=== PATIENT | female | born 1960 | race Two or more races ===

== ENCOUNTER 2016-07-13 12:36 | Inpatient (IN) | payer OTHER ==
[2016-07-13 12:49] VITALS: BMI 36.6
[2016-07-13] MEDS ORDERED: SODIUM CHLORIDE 1,000 ML IV STA (13:39)
[2016-07-13] MEDS ORDERED: ACETAMINOPHEN 325 MG TABLET (FP) PO ONE (13:40)
--- NOTE | 2016-07-13 13:46 | PDOC ---
History of Present Illness - General History Source: Patient Exam Limitations: No Limitations - History of Present Illness Initial Comments: 07/13/16 13:49 The patient is a 55-year-old woman with a past medical history of hypertension , hypercholesterolemia, coronary artery disease status post 1 stent placed, congestive heart failure, asthma, chronic obstructive pulmonary disease, insulin dependent diabetes mellitus, hepatitis C, bipolar disorder, seizure disorder, suicide attempt, depression who presents to the emergency department via EMS for further evaluation of shortness of breath. Upon ED arrival, patient was noted to have an oxygen saturation of 93% on room air, tachycardic at 144 and febrile at 102.3. As per patient, she states that she has endorsed an intermittent productive cough with a yellow sputum for the past few days. She states that her cough had worsened as she started to develop increasingly shortness of breath, generalized body aches and a fever. She doesn't know her baseline oxygen and is currently arranging to have O2 Liters send to her home. No sick contacts. No recent travel Allergies: No Known Drug Allergies Past Surgical History: Stent placement x1. Appendectomy. Lower back surgery. Social History: Current everyday cigarette smoker. Primary Care Physician: Dr. Rc Trevino <Chastity Heaton - Last Filed: 07/13/16 16:56> <Kaleb Spencer - Last Filed: 07/13/16 18:07> <Maddy Craig - Last Filed: 07/13/16 21:09> - General Chief Complaint: Shortness of Breath Stated Complaint: CHEST DISCOMFORT Time Seen by Provider: 07/13/16 13:31 Past History <Chastity Heaton - Last Filed: 07/13/16 16:56> - Past Medical History Anemia: No Asthma: Yes Cancer: No Cardiac Disorders: Yes (STENT X 1) CVA: No COPD: Yes CHF: Yes Dementia: No Diabetes: Yes (IDDM) GI Disorders: No Disorders: No HTN: Yes Hypercholesterolemia: Yes Kidney Stones: Yes Liver Disease: Yes (cirrhosis, hep C) Psychiatric Problems: Yes (bipolar) Suicide Attempt (Hx): Yes (pill overdose at age 23) Seizures: Yes (last episode 03/2013) Thyroid Disease: Yes - Surgical History Abdominal Surgery: No Appendectomy: Yes (age 11) Cardiac Surgery: Yes (STENT X 1) Cholecystectomy: No Lung Surgery: No Neurologic Surgery: No Orthopedic Surgery: Yes (lower back 02/2013) - Immunization History Td Vaccination: Yes - Psycho/Social/Smoking Cessation Hx Anxiety: Yes Suicidal Ideation: No Smoking Status: Yes Smoking History: Current every day smoker Have you smoked in the past 12 months: Yes Number of Cigarettes Smoked Daily: 20 Information on smoking cessation initiated: No 'Breaking Loose' booklet given: 08/16/15 Hx Alcohol Use: No Drug/Substance Use Hx: No Substance Use Type: Opiates Hx Substance Use Treatment: No <Kaleb Spencer - Last Filed: 07/13/16 18:07> <Maddy Craig - Last Filed: 07/13/16 21:09> - Past Medical History Allergies/Adverse Reactions: Allergies Allergy/AdvReac Type Severity Reaction Status Date / Time No Known Allergies Allergy Verified 07/13/16 12:50 Home Medications: Ambulatory Orders Albuterol Sulfate Inhaler - [Ventolin HFA Inhaler -] 2 inh PO Q4H PRN 11/06/14 Amlodipine Besylate [Norvasc -] 10 mg PO DAILY 11/06/14 Aspirin [[place] Aspirin] 81 mg PO DAILY 11/06/14 Gabapentin 300 mg PO TID 11/06/14 Hydroxyzine HCl 50 mg PO DAILY 11/06/14 Lisinopril/Hydrochlorothiazide [Lisinopril-Hctz 20-12.5 mg Tab] 1 each PO DAILY 11/06/14 Nicotine Polacrilex [Nicotine Gum] 4 mg BC Q2H PRN 11/06/14 Salmeterol/Fluticasone [Advair 100Mcg/50Mcg -] 1 inh PO BID 11/06/14 Sennosides [Senokot] 8.6 mg PO DAILY PRN 11/13/14 Diltiazem HCl [Diltiazem 24Hr Cd] 120 mg PO DAILY 12/21/14 Duloxetine HCl 60 mg PO DAILY 12/21/14 Famotidine [Pepcid -] 40 mg PO DAILY 12/21/14 Insulin Glargine,Hum.rec.anlog [Lantus (10mL VIAL) -] 70 units SQ AM 12/21/14 Insulin Lispro [Humalog] 0 unit SQ ASDIR PRN 12/21/14 Lactulose 30 gm PO PRN PRN 12/21/14 Levetiracetam [Keppra] 500 mg PO BID 12/21/14 Montelukast Na [Singulair -] 10 mg PO DAILY 12/21/14 Olmesartan Medoxomil [Benicar -] 20 mg PO DAILY 12/21/14 Tiotropium [place] [Spiriva] 18 mcg IH ASDIR 12/21/14 Zolpidem Tartrate [Ambien] 10 mg PO DAILY 12/21/14 Alprazolam [Xanax] 1 mg PO TID 07/13/16 Tramadol HCl 100 mg PO TID 07/13/16 Review of Systems - Review of Systems Able to Perform ROS?: Yes Comments:: 07/13/16 13:49 CONSTITUTIONAL: Reported: Fever. Chills. Generalized Body Aches. No reported: Diaphoresis, Loss of Appetite HEENT: No reported: Rhinorrhea, Nasal Congestion, Throat Pain, Throat Swelling, Difficulty Swallowing, Mouth Swelling, Ear Pain, Eye Pain, Visual Changes CARDIOVASCULAR: No reported: Chest Pain, Syncope, Palpitations, Irregular Heart Rate, Lightheadedness, Peripheral Edema RESPIRATORY: Reported: Cough, Shortness of Breath. Wheezing. No Reported: SOB with Exertion, Orthopnea,, Stridor, Hemoptysis GASTROINTESTINAL: No reported: Abdominal pain, Abdominal Distension, Nausea, Vomiting, Diarrhea, Constipation, Melena, Hematochezia GENITOURINARY: No reported: Dysuria, Frequency, Urgency, Hesitancy, Flank Pain, Genital Pain MUSCULOSKELETAL: No reported: Myalgia, Arthralgia, Joint Swelling, Back pain, Neck Pain SKIN: No reported: Rash, Itching, Pallor HEMEATOLOGIC/IMMUNOLOGIC: No reported: Easy Bleeding, Easy Bruising, Lymphadenopathy, Frequent infections ENDOCRINE: No reported: Unexplained Weight Gain, Unexplained Weight Loss, Heat Intolerance , Cold Intolerance NEUROLOGIC: No reported: Headache, Focal Weakness, Paresthesias, Vertigo, Lightheadedness, Unsteady Gait, Seizure, Mental Status Changes, Incontinence PSYCHIATRIC: Reported: History of depression and suicide attempt. <Chastity Heaton - Last Filed: 07/13/16 16:56> *Physical Exam - Vital Signs Last Vital Signs Temp Pulse Resp BP Pulse Ox 102.3 F H 144 H 18 136/92 93 L 07/13/16 12:46 07/13/16 12:46 07/13/16 12:46 07/13/16 12:46 07/13/16 12:46 - Physical Exam Comments: 07/13/16 13:49 GENERAL: The patient is awake, alert, and fully oriented, Nontoxic - in no acute distress. HEAD: Normocephalic, atraumatic. EYES: extraocular movements intact, sclera anicteric, conjunctiva clear. ENT: Normal voice, Dry mucous membranes. NECK: Normal range of motion, supple LUNGS: Wheezing with diffuse crackles at bases left > right. HEART: Tachycardic, Regular rate and rhythm, without murmur, rub or gallop. ABDOMEN: Soft, nontender, normoactive bowel sounds. No guarding, no rebound.No CVA tenderness EXTREMITIES: Normal range of motion, no edema. No clubbing or cyanosis. No cords , erythema, or tenderness. NEUROLOGICAL: No facial assymetry, Normal speech, PSYCH: Normal mood, normal affect. SKIN: Hot to the touch. <Chastity Heaton - Last Filed: 07/13/16 16:56> - Vital Signs Last Vital Signs Temp Pulse Resp BP Pulse Ox 102.3 F H 144 H 18 136/92 93 L 07/13/16 12:46 07/13/16 12:46 07/13/16 12:46 07/13/16 12:46 07/13/16 12:46 <Kaleb Spencer - Last Filed: 07/13/16 18:07> - Vital Signs Last Vital Signs Temp Pulse Resp BP Pulse Ox 99.0 F 103 H 20 113/81 97 07/13/16 18:00 07/13/16 18:00 07/13/16 18:00 07/13/16 18:00 07/13/16 18:00 <Maddy Craig - Last Filed: 07/13/16 21:09> Heart Score/ECG Review - ECG Impressions Comment:: 07/13/16 17:19 Twelve-lead EKG was performed and reviewed by me. There is normal sinus rhythm with a rate of [address] changes suggestive of acute ischemia qtc nterval of 556 <Kaleb Spencer - Last Filed: 07/13/16 18:07> ED Treatment Course - LABORATORY CBC & Chemistry Diagram: 07/13/16 14:40 07/13/16 15:15 - RADIOLOGY Radiograph Interpretation: 07/13/16 14:30 EXAM: RAD/CHEST X-RAY PORTABLE IMPRESSION: Since the prior study of 08/17/2015 at 0146 hours, again noted is the elevated right hemidiaphragm, scoliosis, prominent mediastinum but clear lung penn. The angles are sharp and the soft tissues are intact. There are degenerative spine and shoulder changes. There is calcification the left shoulder. <Chastity Heaton - Last Filed: 07/13/16 16:56> - LABORATORY CBC & Chemistry Diagram: 07/13/16 14:40 07/13/16 15:15 - RADIOLOGY Radiology Studies Ordered: Category Date Time Status CHEST X-RAY PORTABLE* [RAD] Stat Radiology 07/13/16 13:39 Ordered <Kaleb Spencer - Last Filed: 07/13/16 18:07> - LABORATORY CBC & Chemistry Diagram: 07/13/16 14:40 07/13/16 15:15 - ADDITIONAL ORDERS Additional order review: Laboratory Results 07/13/16 07/13/16 07/13/16 17:30 15:30 15:15 INR PTT (Actin FS) VBG pH POC VBG pCO2 POC VBG pO2 Mixed VBG HCO3 Sodium 133 L Potassium 4.9 Chloride 93 L Carbon Dioxide 28 Anion Gap 12 BUN 7 D Creatinine 0.8 D Creat Clearance w eGFR > 60 Random Glucose 427 H* Lactic Acid 2.298 H* Calcium 8.5 Total Bilirubin 0.4 AST 39 H ALT 61 D Alkaline Phosphatase 132 H Creatine Kinase 151 D CK-MB (CK-2) < 1.000 Troponin I < 0.02 Total Protein 8.1 Albumin 3.0 L Urine Color Colorless Urine Appearance Clear Urine pH 8.0 D Ur Specific [place] 1.029 Urine Protein 1+ H Urine Glucose (UA) 3+ H Urine Ketones Negative Urine Blood 1+ H Urine Nitrite Negative Urine Bilirubin Negative Urine Urobilinogen Negative Ur Leukocyte Esterase Negative Urine RBC 3 Urine WBC 10 Ur Epithelial Cells Rare Urine Yeast Few 07/13/16 07/13/16 07/13/16 14:40 14:40 14:40 INR 1.03 PTT (Actin FS) 29.7 VBG pH POC VBG pCO2 POC VBG pO2 Mixed VBG HCO3 Sodium Cancelled Potassium Cancelled Chloride Cancelled Carbon Dioxide Cancelled Anion Gap Cancelled BUN Cancelled Creatinine Cancelled Creat Clearance w eGFR Cancelled Random Glucose Cancelled Lactic Acid 3.374 H* Calcium Cancelled Total Bilirubin Cancelled AST Cancelled ALT Cancelled Alkaline Phosphatase Cancelled Creatine Kinase Cancelled CK-MB (CK-2) Troponin I Cancelled Total Protein Cancelled Albumin Cancelled Urine Color Urine Appearance Urine pH Ur Specific [place] Urine Protein Urine Glucose (UA) Urine Ketones Urine Blood Urine Nitrite Urine Bilirubin Urine Urobilinogen Ur Leukocyte Esterase Urine RBC Urine WBC Ur Epithelial Cells Urine Yeast 07/13/16 14:36 INR PTT (Actin FS) VBG pH 7.40 POC VBG pCO2 50.3 POC VBG pO2 50.2 H Mixed VBG HCO3 30.7 H Sodium Potassium Chloride Carbon Dioxide Anion Gap BUN Creatinine Creat Clearance w eGFR Random Glucose Lactic Acid Calcium Total Bilirubin AST ALT Alkaline Phosphatase Creatine Kinase CK-MB (CK-2) Troponin I Total Protein Albumin Urine Color Urine Appearance Urine pH Ur Specific [place] Urine Protein Urine Glucose (UA) Urine Ketones Urine Blood Urine Nitrite Urine Bilirubin Urine Urobilinogen Ur Leukocyte Esterase Urine RBC Urine WBC Ur Epithelial Cells Urine Yeast 07/13/16 13:50 Influenza Types A,B Antigen ([facility]) - Final Nasopharyngeal Swab - Final 07/13/16 14:40 RBC 4.91 MCV 88.4 MCHC 33.6 RDW 14.1 MPV 10.3 D Neutrophils % 80.0 D Lymphocytes % 10.0 D Monocytes % 8.0 - Medications Given in the ED: ED Medications Discontinued Medications Generic Name Dose Route Start Last Admin Trade Name Freq PRN Reason Stop Dose Admin Acetaminophen 975 mg 07/13/16 13:40 07/13/16 14:15 Tylenol - PO 07/13/16 13:41 975 mg ONCE ONE Administration Cefepime HCl 2 gm 07/13/16 15:06 07/13/16 15:15 Maxipime (Restricted To Id) - IVPB 07/13/16 15:07 2 gm ONCE ONE Administration Protocol Sodium Chloride 1,000 mls @ 1,000 mls/hr 07/13/16 13:39 07/13/16 14:41 Normal Saline - IV 07/13/16 14:38 1,000 mls/hr ASDIR STA Administration Levofloxacin 150 mls @ 100 mls/hr 07/13/16 15:06 07/13/16 16:25 Levaquin 750 Mg Premixed Ivpb - IVPB 07/13/16 16:35 100 mls/hr ONCE ONE Administration Vancomycin HCl 1,000 mg/ 250 mls @ 250 mls/hr 07/13/16 15:06 07/13/16 15:42 Dextrose IVPB 07/13/16 16:05 250 mls/hr ONCE ONE Administration Protocol Sodium Chloride 1,000 mls @ 1,000 mls/hr 07/13/16 15:32 07/13/16 15:42 Normal Saline - IV 07/13/16 16:31 1,000 mls/hr .Q1H ONE Administration Insulin Detemir 9 units 07/13/16 16:13 07/13/16 16:20 Levemir Vial SQ 07/13/16 16:14 Not Given ONCE ONE Insulin Human Regular 9 units 07/13/16 16:20 07/13/16 16:24 Novolin R Vial *For Ivpush Or Iv Drip Only* SQ 07/13/16 16:21 9 units NOW ONE Administration Insulin Human Regular 6 units 07/13/16 18:16 07/13/16 18:21 Novolin R Vial *For Ivpush Or Iv Drip Only* SQ 07/13/16 18:17 6 units NOW ONE Administration <Maddy Craig - Last Filed: 07/13/16 21:09> Medical Decision Making - Critical Care Time Total Critical Care Time (minutes): 40 Critical Care Statement: The care of this patient involved high complexity decision making to prevent further life threatening deterioration of the patient 's condition and/or to evalute & treat vital organ system(s) failure or risk of failure. - Medical Decision Making 07/13/16 16:[address] Trevino. 07/13/16 16:[address] Trevino <Chastity Heaton - Last Filed: 07/13/16 16:56> - Medical Decision Making 07/13/16 13:56 55y F hx of 07/13/16 16:29 cxr is clear w/o pna ua does not suggest uti pts labs noted for leukocytosis of 26 lactic acid elevated to 3.3 --> will hydrate and recheck influenza negative when prompted of abd pain, pt states she does have some abdominla pain, but states she also has pain everywhere. suspect respiratory cause - but no focal findings on cxr. pt was given broad spectrum abx for sepsis anticipate admission awaiting call back from dr. trevino 07/13/16 18:[address] trevino agreed wit hadmission pts CT abdomen shows some nodular densitis in the lung kidney is slithglyt ademadousn -?pyelo possible, but pts primary sypmtoms are respiratory - broad spectrum abx will cover uti as well erpeat lactic acid pending wcase dw dr. trevino if lactic acid persistently elevated will admit to tele, if normalizing will put in med surg Case discussed in detail with admitting physician including history, physical exam and ancillary studies. Admitting physician has assumed care for the patient, will follow all pending diagnostics and will complete the evaluation and treatment. A portion of this note was documented by scribe services under my direction. I have reviewed the details of the note, within reason, and agree with the documentation with the following case summary and management plan written by me CRITICAL CARE DOCUMENTATION: I spent ~35 minutes of Critical Care time, excluding separately billable procedures, involving high complexity decision making to assess, manipulate and support vital system function(s) to treat single or multiple vital organ system failure and/or to prevent further life threatening deterioration of the patient' s condition. <Kaleb Spencer - Last Filed: 07/13/16 18:07> *DC/Admit/Observation/Transfer - Attestations Scribe Attestion: 07/13/16 13:49 Documentation prepared by Chastity Heaton, acting as medical technologist prn for Kaleb Spencer MD. <Chastity Heaton - Last Filed: 07/13/16 16:56> - Discharge Dispostion Admit: Yes <Kaleb Spencer - Last Filed: 07/13/16 18:07> - Discharge Dispostion Admit: Yes <Maddy Craig - Last Filed: 07/13/16 21:09> Diagnosis at time of Disposition: Severe sepsis, Hyperglycemia COPD (chronic obstructive pulmonary disease) Qualifiers: COPD type: chronic bronchitis Chronic bronchitis type: unspecified Qualified Code(s): J42 - Unspecified chronic bronchitis - Discharge Dispostion Condition at time of disposition: Guarded - Referrals
[2016-07-13] MEDS ORDERED: ACETAMINOPHEN 325 MG TABLET (FP) ONE (13:53)
[2016-07-13 14:55] LABS: MCH 29.7 pg (25.7-33.7); MCHC 33.6 g/dl (32.0-36.0); MEAN CELL VOLUME 88.4 fl (80-96); MEAN PLT VOLUME 10.3 fl (7.5-11.1); PLATELET COUNT 364 K/MM3 (134-434); RDW 14.1 % (11.6-15.6); WHITE BLOOD COUNT 26.4 K/mm3 (4.0-10.0)
[2016-07-13 14:57] LABS: VENOUS PH 7.4 (7.32-7.42)
[2016-07-13 14:59] LABS: VENOUS BLOOD GAS HCO3 30.7 meq/L (19-25)
[2016-07-13] MEDS ORDERED: VANCOMYCIN 1,000 MG in DEXTROSE 5%-WATER - 250 ML IVPB ONE (15:06)
[2016-07-13] MEDS ORDERED: LEVOFLOXACIN 750 MG IVPB 150 ML IVPB ONE ×2 (15:06→15:21)
[2016-07-13] MEDS ORDERED: CEFEPIME HCL 2 GM VIAL (RESTRICTED TO ID) IVPB ONE (15:06)
[2016-07-13 15:18] LABS: INR 1.03 (0.82-1.09); PROTHROMBIN TIME (PATIENT) 11.3 SEC (9.98-11.88)
[2016-07-13 15:21] LABS: ACTIVATED PTT 29.7 SECONDS (26.9-34.4)
[2016-07-13] MEDS ORDERED: CEFEPIME 100 ML IVPB ONE (15:21)
[2016-07-13] MEDS ORDERED: VANCOMYCIN 1 GRAM (PRE-DOCKED) 250 ML IVPB ONE (15:21)
[2016-07-13] MEDS ORDERED: SODIUM CHLORIDE 1,000 ML IV ONE ×2 (15:32→18:02)
[2016-07-13 15:35] LABS: URINE APPEARANCE CLEAR; URINE BILIRUBIN NEGATIVE (NEGATIVE); URINE COLOR COLORLESS; URINE GLUCOSE (UA) 3+ (NEGATIVE); URINE KETONE NEGATIVE (NEGATIVE); URINE LEUK ESTERASE NEGATIVE (NEGATIVE); URINE NITRITE NEGATIVE (NEGATIVE); URINE UROBILINOGEN NEGATIVE E.U./dl (0.2-1.0)
[2016-07-13 15:41] LABS: URINE BLOOD 1+ (NEGATIVE); URINE PROTEIN 1+ (NEGATIVE)
[2016-07-13 15:54] LABS: ANION GAP 12 (8-16); BILIRUBIN,TOTAL 0.4 mg/dL (0.2-1.0); CALCIUM 8.5 mg/dL (8.5-10.1); CO2 28 mmol/L (21-32); CREATININE 0.8 mg/dL (0.55-1.02); SGOT/AST 39 U/L (15-37); SGPT/ALT 61 U/L (12-78); TOT PROT 8.1 g/dl (6.4-8.2)
[2016-07-13 15:56] LABS: GLUCOSE,RANDOM 427 mg/dL (74-106)
[2016-07-13 15:56] LABS: URINE RBC 3 /hpf (0-3); URINE WBC 10 /hpf (3-5); YEAST FEW
[2016-07-13 15:59] LABS: ALK PHOS 132 U/L (45-117); TROPONIN I < 0.02 ng/ml (0.00-0.05)
[2016-07-13] MEDS ORDERED: INSULIN DETEMIR 100 UNITS/ML MDV SQ ONE (16:13)
[2016-07-13] MEDS ORDERED: INSULIN REGULAR HUMAN 100 UNITS/ML *VIAL SQ ONE ×2 (16:20→18:16)
[2016-07-13] MEDS ORDERED: INSULIN REGULAR HUMAN 100 UNITS/ML *VIAL ONE ×3 (16:22→22:22)
[2016-07-13 18:26] LABS: PLATELET ESTIMATE ADEQUATE (NORMAL)
[2016-07-13] MEDS ORDERED: ALBUTEROL SO4 2.5/IPRATROPIUM 0.5 INH SOL 3 ML VIAL.NEB. NEB ONE (20:31)
[2016-07-13] MEDS ORDERED: ALBUTEROL SO4 2.5/IPRATROPIUM 0.5 INH SOL 3 ML VIAL.NEB. NEB PRN (20:53)
[2016-07-13] MEDS ORDERED: ONDANSETRON 4 MG/2 ML VIAL IVPB PRN (20:53)
[2016-07-13] MEDS ORDERED: DEXTROSE 5%-NORMAL SALINE 1,000 ML IV SCH (21:00)
[2016-07-13] MEDS: POTASSIUM CHLORIDE 10 MEQ in SODIUM CHLORIDE 0.45% 1,000 ML IVPB SCH (22:00)
[2016-07-13] MEDS: INSULIN SLIDING SCALE (NOVOLOG) 1 VIAL SQ SCH (22:34)
[2016-07-14] MEDS: POTASSIUM CHLORIDE 10 MEQ in SODIUM CHLORIDE 0.45% 1,000 ML IVPB SCH ×2 (06:27→16:00)
[2016-07-14] MEDS ORDERED: morphine CARPU-JECT 2 MG/1 ML DISP.SYRIN ONE ×2 (06:29→17:00)
[2016-07-14] MEDS ORDERED: ONDANSETRON 4 MG/2 ML VIAL ONE (06:29)
[2016-07-14] MEDS: morphine CARPU-JECT 2 MG/1 ML DISP.SYRIN IVPUSH PRN ×3 (06:34→20:52)
[2016-07-14 06:37] LABS: MCH 29.9 pg (25.7-33.7); MCHC 33.3 g/dl (32.0-36.0); MEAN CELL VOLUME 89.8 fl (80-96); MEAN PLT VOLUME 8.7 fl (7.5-11.1); PLATELET COUNT 284 K/MM3 (134-434); RDW 13.5 % (11.6-15.6)
[2016-07-14 06:51] LABS: ALBUMIN 2.5 g/dl (3.4-5.0); ALK PHOS 81 U/L (45-117); ANION GAP 8 (8-16); BILIRUBIN,TOTAL 0.8 mg/dL (0.2-1.0); CALCIUM 7.9 mg/dL (8.5-10.1); CO2 30 mmol/L (21-32); CREATININE 0.5 mg/dL (0.55-1.02); GLUCOSE,RANDOM 229 mg/dL (74-106); SGOT/AST 28 U/L (15-37); SGPT/ALT 46 U/L (12-78); TOT PROT 6.9 g/dl (6.4-8.2)
[2016-07-14] MEDS: INSULIN SLIDING SCALE (NOVOLOG) 1 VIAL SQ SCH ×4 (08:39→22:47)
[2016-07-14] MEDS ORDERED: INSULIN REGULAR HUMAN 100 UNITS/ML *VIAL ONE ×3 (08:39→13:47)
--- NOTE | 2016-07-14 09:00 | CON.GU ---
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 Cardio/Vascular: Yes: CAD, HTN Pulmonary: Yes: COPD Hepatobiliary: Yes: Hepatitis C (from a blood transfusion) Psych: Yes: Bipolar Endocrine: Yes: Diabetes Mellitus - Past Surgical History Past Surgical History: Yes: Hysterectomy, Colonoscopy - Alcohol/Substance Use Hx Alcohol Use: No History of Substance Use: reports: Cocaine - Smoking History Smoking history: Current every day smoker Have you smoked in the past 12 months: Yes Aproximately how many cigarettes per day: 20 - Social History Occupation: disabled Home Medications - Allergies Allergies/Adverse Reactions: Allergies Allergy/AdvReac Type Severity Reaction Status Date / Time No Known Allergies Allergy Verified 07/13/16 12:50 - Home Medications Home Medications: Ambulatory Orders Albuterol Sulfate Inhaler - [Ventolin HFA Inhaler -] 2 inh PO Q4H PRN 11/06/14 Amlodipine Besylate [Norvasc -] 10 mg PO DAILY 11/06/14 Aspirin [[place] Aspirin] 81 mg PO DAILY 11/06/14 Gabapentin 300 mg PO TID 11/06/14 Hydroxyzine HCl 50 mg PO DAILY 11/06/14 Lisinopril/Hydrochlorothiazide [Lisinopril-Hctz 20-12.5 mg Tab] 1 each PO DAILY 11/06/14 Nicotine Polacrilex [Nicotine Gum] 4 mg BC Q2H PRN 11/06/14 Salmeterol/Fluticasone [Advair 100Mcg/50Mcg -] 1 inh PO BID 11/06/14 Sennosides [Senokot] 8.6 mg PO DAILY PRN 11/13/14 Diltiazem HCl [Diltiazem 24Hr Cd] 120 mg PO DAILY 12/21/14 Duloxetine HCl 60 mg PO DAILY 12/21/14 Famotidine [Pepcid -] 40 mg PO DAILY 12/21/14 Insulin Glargine,Hum.rec.anlog [Lantus (10mL VIAL) -] 70 units SQ AM 12/21/14 Insulin Lispro [Humalog] 0 unit SQ ASDIR PRN 12/21/14 Lactulose 30 gm PO PRN PRN 12/21/14 Levetiracetam [Keppra] 500 mg PO BID 12/21/14 Montelukast Na [Singulair -] 10 mg PO DAILY 12/21/14 Olmesartan Medoxomil [Benicar -] 20 mg PO DAILY 12/21/14 Tiotropium [place] [Spiriva] 18 mcg IH ASDIR 12/21/14 Zolpidem Tartrate [Ambien] 10 mg PO DAILY 12/21/14 Alprazolam [Xanax] 1 mg PO TID 07/13/16 Tramadol HCl 100 mg PO TID 07/13/16 Family Disease History - Family Disease History Family Disease History: Diabetes: Mother, Heart Disease: Father, Brother, Sister , Respiratory: Father, Other: Father, Brother, Sister Physical Exam- Vital Signs: Vital Signs Temperature 98.1 F 07/14/16 07:30 Pulse Rate 107 H 07/14/16 07:30 Respiratory Rate 16 07/14/16 07:30 Blood Pressure 109/89 07/14/16 07:30 O2 Sat by Pulse Oximetry (%) 100 07/14/16 07:30 Constitutional: Yes: Well Nourished, Calm Eyes: Yes: WNL, Conjunctiva Clear, EOM Intact HENT: Yes: WNL, Atraumatic, Normocephalic Neck: Yes: WNL, Supple, Trachea Midline Cardiovascular: Yes: Regular Rate and Rhythm Gastrointestinal: Yes: WNL, Normal Bowel Sounds (bilateral mild CVAT), Soft Renal/: Yes: CVA Tenderness - Left, CVA Tenderness - Right Kidneys: Yes: Flank Pain Left, FLank Pain Right External Genitalia: Yes: WNL Labs: CBC, BMP 07/14/16 06:15 07/14/16 06:15 Imaging - Results Cat Scan: Report Reviewed (small right renal stone; no hydro; no masses) Assessment/Plan imp pneumonia renal stone plan continue antibiotics will follow-up patient as outpatient as the fever is not of urologic source
--- NOTE | 2016-07-14 10:14 | PN ---
Progress Note (short form) - Note Progress Note: ID consult dictated imp/reccd 55 year old female with PMH nephrolithiasis, DM, HTN admitted with one week history of fever and cough with yellow sputum +myalgia, midepigastric pain from vomiting no hemoptysis, no diarrhea no vomiting +nausea +chills fever to 102 in ED with elevated WBC and lactic acid infiltrate seen on ct scan abd/pelvis s/p lap choly in April at [facility] she went to ED at [facility] last week but did not stay to be seen +smoker 1 PPD +COPD +DM given vancomycin/levaquin/cefepime in ed now afebrile Right lower lobe pneumonia cultures blood and sputum legionella/pneumococcal antigens copd exacerbation rocephin/doxycycline
[2016-07-14] MEDS ORDERED: CEFTRIAXONE 100 ML ONE (11:42)
[2016-07-14] MEDS ORDERED: CEFTRIAXONE 100 ML IVPB ONE (11:44)
[2016-07-14] MEDS: cefTRIAXone 2 GM/100 ML BAG (PRE-DOCKED) IVPB SCH (12:38)
[2016-07-14] MEDS: DOXYCYCLINE INJECTION 100 MG in DEXTROSE 5%-WATER - 100 ML IVPB SCH ×2 (14:00→22:06)
--- NOTE | 2016-07-14 16:08 | CONSULT ---
Consult Consult Specialty:: Nephrology Reason for Consultation:: lactic acidosis - History of Present Illness Chief Complaint: shortness of breath History of Present Illness: Pt is a 55 year old female with pmhx of HTN, hyperlipidemia, CAD, CHF, COPD, DM , Hep C, epilepsy, Bipolar and nephrolithiasis who presents to the ER with shortness of breath. She was found to be tachycardic and to have a fever. Pt was admitted to the hospital for treatment of sepsis. She complains of a productive cough. She says she had dysuria a few days ago and did see blood in the urine at that time. She complains of chills. I was called to evaluate her for lactic acidosis and for fluid management. She says she has lung disease but does not have home oxygen yet. 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 Cardio/Vascular: Yes: CAD, HTN Pulmonary: Yes: COPD Hepatobiliary: Yes: Hepatitis C (from a blood transfusion) Psych: Yes: Bipolar Endocrine: Yes: Diabetes Mellitus - Past Surgical History Past Surgical History: Yes: Hysterectomy, Colonoscopy - Alcohol/Substance Use Hx Alcohol Use: No History of Substance Use: reports: Cocaine - Smoking History Smoking history: Current every day smoker Have you smoked in the past 12 months: Yes Aproximately how many cigarettes per day: 20 - Social History Occupation: disabled Home Medications - Allergies Allergies/Adverse Reactions: Allergies Allergy/AdvReac Type Severity Reaction Status Date / Time No Known Allergies Allergy Verified 07/13/16 12:50 - Home Medications Home Medications: Ambulatory Orders Albuterol Sulfate Inhaler - [Ventolin HFA Inhaler -] 2 inh PO Q4H PRN 11/06/14 Amlodipine Besylate [Norvasc -] 10 mg PO DAILY 11/06/14 Aspirin [[place] Aspirin] 81 mg PO DAILY 11/06/14 Gabapentin 300 mg PO TID 11/06/14 Hydroxyzine HCl 50 mg PO DAILY 11/06/14 Lisinopril/Hydrochlorothiazide [Lisinopril-Hctz 20-12.5 mg Tab] 1 each PO DAILY 11/06/14 Nicotine Polacrilex [Nicotine Gum] 4 mg BC Q2H PRN 11/06/14 Salmeterol/Fluticasone [Advair 100Mcg/50Mcg -] 1 inh PO BID 11/06/14 Sennosides [Senokot] 8.6 mg PO DAILY PRN 11/13/14 Diltiazem HCl [Diltiazem 24Hr Cd] 120 mg PO DAILY 12/21/14 Duloxetine HCl 60 mg PO DAILY 12/21/14 Famotidine [Pepcid -] 40 mg PO DAILY 12/21/14 Insulin Glargine,Hum.rec.anlog [Lantus (10mL VIAL) -] 70 units SQ AM 12/21/14 Insulin Lispro [Humalog] 0 unit SQ ASDIR PRN 12/21/14 Lactulose 30 gm PO PRN PRN 12/21/14 Levetiracetam [Keppra] 500 mg PO BID 12/21/14 Montelukast Na [Singulair -] 10 mg PO DAILY 12/21/14 Olmesartan Medoxomil [Benicar -] 20 mg PO DAILY 12/21/14 Tiotropium [place] [Spiriva] 18 mcg IH ASDIR 12/21/14 Zolpidem Tartrate [Ambien] 10 mg PO DAILY 12/21/14 Alprazolam [Xanax] 1 mg PO TID 07/13/16 Tramadol HCl 100 mg PO TID 07/13/16 Family Disease History - Family Disease History Family Disease History: Diabetes: Mother, Heart Disease: Father, Brother, Sister , Respiratory: Father, Other: Father, Brother, Sister Review of Systems - Review of Systems Constitutional: reports: Chills, Fever, Malaise Eyes: reports: No Symptoms HENT: reports: No Symptoms Neck: reports: No Symptoms Cardiovascular: reports: Shortness of Breath Respiratory: reports: Cough, SOB, SOB on Exertion Gastrointestinal: reports: Abdominal Pain Genitourinary: reports: Dysuria, Hematuria Musculoskeletal: reports: No Symptoms Integumentary: reports: No Symptoms Neurological: reports: No Symptoms Endocrine: reports: No Symptoms Hematology/Lymphatic: reports: No Symptoms Psychiatric: reports: No Symptoms Physical Exam Vital Signs: Vital Signs Temperature 98.1 F 07/14/16 07:30 Pulse Rate 100 H 07/14/16 11:15 Respiratory Rate 18 07/14/16 11:15 Blood Pressure 135/79 07/14/16 11:15 O2 Sat by Pulse Oximetry (%) 94 L 07/14/16 11:15 Constitutional: Yes: Calm Eyes: Yes: Conjunctiva Clear HENT: Yes: Atraumatic Neck: Yes: Supple Cardiovascular: Yes: S1 Respiratory: Yes: CTA Bilaterally Gastrointestinal: Yes: Normal Bowel Sounds, Soft Renal/: Yes: WNL Musculoskeletal: Yes: WNL Edema: No Neurological: Yes: Oriented Psychiatric: Yes: Oriented Labs: CBC, BMP 07/14/16 06:15 07/14/16 06:15 Laboratory Tests 07/13/16 07/13/16 07/13/16 14:40 14:40 15:15 WBC 26.4 H D Hgb 14.6 D Sodium 133 L Potassium 4.9 Chloride 93 L Carbon Dioxide 28 Anion Gap 12 BUN 7 D Creatinine 0.8 D Random Glucose Lactic Acid 3.374 H* 07/13/16 07/14/16 07/14/16 17:30 06:15 06:15 WBC 15.0 H D Hgb 12.9 D Sodium 138 Potassium 3.9 D Chloride 100 Carbon Dioxide 30 Anion Gap 8 BUN 4 L D Creatinine 0.5 L D Random Glucose 229 H D Lactic Acid 2.298 H* 07/14/16 06:15 WBC Hgb Sodium Potassium Chloride Carbon Dioxide Anion Gap BUN Creatinine Random Glucose Lactic Acid 1.130 Imaging - Results Chest X-ray: Report Reviewed Cat Scan: Report Reviewed Problem List - Problems (1) CAD (coronary artery disease) Code(s): I25.10 - ATHSCL HEART DISEASE OF [place] CORONARY ARTERY W/O ANG PCTRS (2) COPD (chronic obstructive pulmonary disease) Code(s): J44.9 - CHRONIC OBSTRUCTIVE PULMONARY DISEASE, UNSPECIFIED Qualifiers : COPD type: chronic bronchitis Chronic bronchitis type: unspecified Qualified Code(s): J42 - Unspecified chronic bronchitis (3) Pyelonephritis Code(s): N12 - TUBULO-INTERSTITIAL NEPHRITIS, NOT SPCF ACUTE OR CHRONIC (4) UTI (urinary tract infection) Code(s): N39.0 - URINARY TRACT INFECTION, SITE NOT SPECIFIED (5) Hepatitis C Code(s): B19.20 - UNSPECIFIED VIRAL HEPATITIS C WITHOUT HEPATIC COMA (6) Sepsis Code(s): A41.9 - SEPSIS, UNSPECIFIED ORGANISM (7) Lactic acid acidosis Code(s): E87.2 - ACIDOSIS Assessment/Plan Current Medications Generic Name Dose Route Start Last Admin Trade Name Freq PRN Reason Stop Dose Admin Albuterol/Ipratropium 1 amp 07/13/16 20:53 Duoneb - NEB Q6H PRN SHORTNESS OF BREATH Ceftriaxone Sodium 2 gm 07/14/16 11:00 07/14/16 12:38 Rocephin 2gm Ivpb (Pre-Docked) IVPB 2 gm DAILY ILYA Administration Protocol Dextrose/Sodium Chloride 1,000 mls @ 83 mls/hr 07/13/16 21:00 07/13/16 21:21 D5-Ns - IV 83 mls/hr ASDIR ILYA Administration Potassium Chloride 10 meq/ 1,005 mls @ 125 mls/hr 07/13/16 21:00 07/14/16 06:27 Sodium Chloride IVPB 125 mls/hr Q8H ILYA Administration Doxycycline Hyclate 100 mg/ 100 mls @ 100 mls/hr 07/14/16 11:30 07/14/16 14:00 Dextrose IVPB 100 mls/hr BID ILYA Administration Insulin Aspart 1 vial 07/13/16 22:00 07/14/16 14:00 Novolog Vial Sliding Scale - SQ 10 units ACHS ILYA Administration Protocol Morphine Sulfate 2 mg 07/13/16 20:53 07/14/16 06:34 Morphine Injection - IVPUSH 2 mg Q4H PRN Administration PAIN Ondansetron HCl 4 mg 07/13/16 20:53 07/14/16 06:34 Zofran Injection IVPB 4 mg Q6H PRN Administration NAUSEA Impression 1. sepsis 2. PNA 3. UTI 4. possible pyelo 5. COPD 6. Hep C 7. CAD 8. CHF Plan - cont with fluids - lactic acid improving - urology input appreciated - cont abx - follow cultures - repeat labs in am - check renal and bladder ultrasound - hold HCTZ for now - monitor BP closely Dr Post
--- NOTE | 2016-07-14 17:38 | EKG ---
Test Reason : Blood Pressure : / mmHG Vent. Rate : 139 BPM Atrial Rate : 139 BPM P-R Int : 080 ms QRS Dur : 076 ms QT Int : 366 ms P-R-T Axes : 098 061 075 degrees QTc Int : 556 ms SINUS TACHYCARDIA WITH SHORT [place] OTHERWISE NORMAL ECG WHEN COMPARED WITH ECG OF 16-AUG-2015 20:27, [place] INTERVAL HAS DECREASED VENT. RATE HAS INCREASED BY 46 BPM Confirmed by CHRISTOPHER STERN MD ([id number]) on 07/14/2016 5:38:41 PM Referred By: Confirmed By:CHRISTOPHER STERN MD
--- NOTE | 2016-07-14 19:18 | HP ---
Admitting History and Physical - Primary Care Physician PCP: Rc Pineda - Admission Chief Complaint: WEAKNESS/FEVER/COUGH/FLANK PAIN History of Present Illness: Pt is a 55 year old female with pmhx of HTN, hyperlipidemia, CAD, CHF, COPD, DM , Hep C, epilepsy, Bipolar and nephrolithiasis who presents to the ER with shortness of breath. She was found to be tachycardic and to have a fever. Pt was admitted to the hospital for treatment of sepsis. She complains of a productive cough. She says she had dysuria a few days ago and did see blood in the urine at that time. She complains of chills. I was called to evaluate her for lactic acidosis and for fluid management. She says she has lung disease but does not have home oxygen yet. 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 Cardiovascular: Yes: CAD, HTN Pulmonary: Yes: COPD Hepatobiliary: Yes: Hepatitis C (from a blood transfusion) Psych: Yes: Bipolar Endocrine: Yes: Diabetes Mellitus - Past Surgical History Past Surgical History: Yes: Hysterectomy, Colonoscopy - Smoking History Smoking history: Current every day smoker Have you smoked in the past 12 months: Yes Aproximately how many cigarettes per day: 20 - Alcohol/Substance Use Hx Alcohol Use: No History of Substance Use: reports: Cocaine - Social History Occupation: disabled Home Medications - Allergies Allergies/Adverse Reactions: Allergies Allergy/AdvReac Type Severity Reaction Status Date / Time No Known Allergies Allergy Verified 07/13/16 12:50 - Home Medications Home Medications: Ambulatory Orders Albuterol Sulfate Inhaler - [Ventolin HFA Inhaler -] 2 inh PO Q4H PRN 11/06/14 Amlodipine Besylate [Norvasc -] 10 mg PO DAILY 11/06/14 Aspirin [[place] Aspirin] 81 mg PO DAILY 11/06/14 Gabapentin 300 mg PO TID 11/06/14 Hydroxyzine HCl 50 mg PO DAILY 11/06/14 Lisinopril/Hydrochlorothiazide [Lisinopril-Hctz 20-12.5 mg Tab] 1 each PO DAILY 11/06/14 Nicotine Polacrilex [Nicotine Gum] 4 mg BC Q2H PRN 11/06/14 Salmeterol/Fluticasone [Advair 100Mcg/50Mcg -] 1 inh PO BID 11/06/14 Sennosides [Senokot] 8.6 mg PO DAILY PRN 11/13/14 Diltiazem HCl [Diltiazem 24Hr Cd] 120 mg PO DAILY 12/21/14 Duloxetine HCl 60 mg PO DAILY 12/21/14 Famotidine [Pepcid -] 40 mg PO DAILY 12/21/14 Insulin Glargine,Hum.rec.anlog [Lantus (10mL VIAL) -] 70 units SQ AM 12/21/14 Insulin Lispro [Humalog] 0 unit SQ ASDIR PRN 12/21/14 Lactulose 30 gm PO PRN PRN 12/21/14 Levetiracetam [Keppra] 500 mg PO BID 12/21/14 Montelukast Na [Singulair -] 10 mg PO DAILY 12/21/14 Olmesartan Medoxomil [Benicar -] 20 mg PO DAILY 12/21/14 Tiotropium [place] [Spiriva] 18 mcg IH ASDIR 12/21/14 Zolpidem Tartrate [Ambien] 10 mg PO DAILY 12/21/14 Alprazolam [Xanax] 1 mg PO TID 07/13/16 Tramadol HCl 100 mg PO TID 07/13/16 Family Disease History - Family Disease History Family Disease History: Diabetes: Mother, Heart Disease: Father, Brother, Sister , Respiratory: Father, Other: Father, Brother, Sister Review of Systems - Review of Systems Constitutional: reports: Weakness Eyes: reports: No Symptoms HENT: reports: No Symptoms Neck: reports: No Symptoms Cardiovascular: reports: Shortness of Breath Respiratory: reports: Cough, SOB Gastrointestinal: reports: Abdominal Pain Genitourinary: reports: No Symptoms Musculoskeletal: reports: Extremity Pain, Joint Pain, Muscle Weakness Integumentary: reports: No Symptoms Neurological: reports: Pre-Existing Deficit, Weakness Endocrine: reports: No Symptoms Hematology/Lymphatic: reports: No Symptoms Psychiatric: reports: Anxiety, Other Physical Examination Vital Signs: Vital Signs Temperature 98.3 F 07/14/16 16:56 Pulse Rate 96 H 07/14/16 16:56 Respiratory Rate 18 07/14/16 16:56 Blood Pressure 134/80 07/14/16 16:56 O2 Sat by Pulse Oximetry (%) 96 07/14/16 17:00 Constitutional: Yes: Moderate Distress Eyes: Yes: WNL HENT: Yes: WNL Neck: Yes: WNL Cardiovascular: Yes: WNL Respiratory: Yes: Cough, On Nasal O2, Poor Air Entry, SOB Gastrointestinal: Yes: Tenderness Renal/: Yes: WNL Musculoskeletal: Yes: Back Pain, Muscle Weakness Extremities: Yes: WNL Edema: Yes Edema: LLE: 1+, RLE: 1+ Peripheral Pulses WNL: Yes Integumentary: Yes: WNL Wound/Incision: Yes: Clean/Dry Neurological: Yes: Pre-Existing Deficit, Weakness ...Motor Strength: LLE, RLE Psychiatric: Yes: Other Labs: CBC, BMP 07/14/16 06:15 07/14/16 06:15 Problem List - Problems (1) CAD (coronary artery disease) Code(s): I25.10 - ATHSCL HEART DISEASE OF [place] CORONARY ARTERY W/O ANG PCTRS (2) COPD (chronic obstructive pulmonary disease) Code(s): J44.9 - CHRONIC OBSTRUCTIVE PULMONARY DISEASE, UNSPECIFIED Qualifiers : COPD type: chronic bronchitis Chronic bronchitis type: unspecified Qualified Code(s): J42 - Unspecified chronic bronchitis (3) Chest pain at rest Code(s): R07.9 - CHEST PAIN, UNSPECIFIED (4) Dysarthria Code(s): R47.1 - DYSARTHRIA AND ANARTHRIA (5) Elevated liver enzymes Code(s): R74.8 - ABNORMAL LEVELS OF OTHER SERUM ENZYMES (6) Hyperglycemia Code(s): R73.9 - HYPERGLYCEMIA, UNSPECIFIED (7) Lactic acid acidosis Code(s): E87.2 - ACIDOSIS (8) Sepsis Code(s): A41.9 - SEPSIS, UNSPECIFIED ORGANISM (9) Severe sepsis Code(s): A41.9 - SEPSIS, UNSPECIFIED ORGANISM R65.20 - SEVERE SEPSIS WITHOUT SEPTIC SHOCK (10) Tobacco abuse Code(s): Z72.0 - TOBACCO USE (11) COPD exacerbation Code(s): J44.1 - CHRONIC OBSTRUCTIVE PULMONARY DISEASE W (ACUTE) EXACERBATION (12) Hypertension associated with diabetes Code(s): E11.59 - TYPE 2 DIABETES MELLITUS WITH OTH CIRCULATORY COMPLICATIONS I10 - ESSENTIAL (PRIMARY) HYPERTENSION (13) Pyelonephritis Code(s): N12 - TUBULO-INTERSTITIAL NEPHRITIS, NOT SPCF ACUTE OR CHRONIC (14) UTI (urinary tract infection) Code(s): N39.0 - URINARY TRACT INFECTION, SITE NOT SPECIFIED (15) Asthma Code(s): J45.909 - UNSPECIFIED ASTHMA, UNCOMPLICATED (16) Benzodiazepine dependence Code(s): F13.20 - SEDATIVE, HYPNOTIC OR ANXIOLYTIC DEPENDENCE, UNCOMPLICATED (17) Bipolar II disorder Code(s): F31.81 - BIPOLAR II DISORDER (18) Hepatitis C Code(s): B19.20 - UNSPECIFIED VIRAL HEPATITIS C WITHOUT HEPATIC COMA (19) Hypertension Code(s): I10 - ESSENTIAL (PRIMARY) HYPERTENSION (20) Nicotine dependence Code(s): F17.200 - NICOTINE DEPENDENCE, UNSPECIFIED, UNCOMPLICATED (21) Opioid dependence Code(s): F11.20 - OPIOID DEPENDENCE, UNCOMPLICATED (22) Seizure disorder Code(s): G40.909 - EPILEPSY, UNSP, NOT INTRACTABLE, WITHOUT STATUS EPILEPTICUS Assessment/Plan IV ABX BLOOD AND URINE CULTURES ID AND NEPHROLOGY CONSULT IVF DM WITH SSI NICOTOINE PATCH/SMOKING CESSATION SUBS ABUSE IN PAST COUNCELED PAIN CONTROL
[2016-07-14] MEDS ORDERED: SODIUM CHLORIDE 1,000 ML IV SCH (19:30)
--- NOTE | 2016-07-14 21:07 | CONS ---
DATE OF CONSULTATION: DATE OF DICTATION: 07/14/2016 REQUESTED BY: Rc Pineda MD HISTORY OF PRESENT ILLNESS: This is a 55-year-old woman with an extensive past medical history including hypertension, hypercholesterolemia, and coronary artery disease, asthma, COPD, diabetes. She is an active cigarette user. She presented to the emergency room with a 1-week history of cough with yellow sputum production. She has had some mid-epigastric discomfort from her vomiting. She reports fever at home yesterday to 102. She has diffuse myalgias. There is no hemoptysis and she overall feels lousy. Her , she says, is starting to get a cold at home. There are no sick contacts. She was feeling so bad last week that she went to the emergency room at [facility] but did not stay to be seen. She did not see her doctor. She has nausea. She has had no diarrhea, dysuria, or vomiting. PAST MEDICAL HISTORY: Notable for history of asthma, coronary artery disease. She has a stent in place. COPD, CHF, diabetes, hypertension, hypercholesterolemia, nephrolithiasis. She is status post laser lithotripsy, liver cirrhosis with hepatitis C, bipolar disorder. She had a suicide attempt at age 23 and she has a history of seizures and thyroid disease. PAST SURGICAL HISTORY: Notable for appendectomy. She has had a hysterosalpingogram, tonsillectomy. She has had lower back surgery and most recently, 3 months ago, she had her gallbladder out; she had a laparoscopic cholecystectomy at [facility]. FAMILY HISTORY: Noncontributory. SOCIAL HISTORY: She is . She smokes one pack per day. To me, she denies any illicit drug use. ALLERGIES: She has no known drug allergies. MEDICATIONS: At home include albuterol inhaler, Norvasc, aspirin, gabapentin, hydroxyzine, lisinopril/hydrochlorothiazide, nicotine gum, Advair, Senokot, diltiazem, duloxetine, famotidine, insulin, lactulose, Keppra, Singulair, Benicar, Spiriva, Ambien, Xanax and tramadol. Per the patient, she is apparently being evaluated for home oxygen. REVIEW OF SYSTEMS: Notable for myalgia, chills, fever, cough with yellow sputum and nausea. There is no dysuria. There is no diarrhea. She has had no vomiting. She has no chest pain. PHYSICAL EXAMINATION: General: She is awake and alert. Vital Signs: T-max was 102.3. She has had no further fever. Temperature 98.1, pulse 107, blood pressure 109/89, respiratory rate 16. She is saturating 100% on 2 L and she has a moist cough. HEENT: She is normocephalic. Eyes are anicteric. She has no thrush. Neck: Supple. Lungs: Bilateral rhonchi and wheezes. Heart: Regular rate and rhythm. Abdomen: Soft. She had midepigastric pain to palpation. Otherwise, her abdominal examination is soft. There is no rebound or guarding. Extremities: Without edema. LABORATORY DATA: Notable for a white count of 26.4 yesterday, today 15; hemoglobin 12.9; platelets 284; INR 1. BUN and creatinine are 4/0.5. LFTs are normal. Urinalysis has 10 white cells. IMAGING: Chest x-ray was read as normal. CAT scan of the abdomen and pelvis was done, as she had fever, leukocytosis. She also had a lactic acid level on admission of 3.3 and this morning is 1.1. She had a CAT scan of her abdomen and pelvis done that was unremarkable. Showed no hydronephrosis, a small nonobstructing stone, but she was noted incidentally on that to have a right middle lobe and right lower lobe infiltrate. IN SUMMARY: This is a 55-year-old woman, active smoker with diabetes, chronic obstructive pulmonary disease who has a right lower lobe pneumonia. Cultures of the blood have been sent. We sent sputum for legionella and pneumococcal antigens. She was given vancomycin, Levaquin, and cefepime in the emergency room and is now afebrile. The official EKG has not been read, but appears she has prolonged QT on her ED EKG. Given this, I would treat her with Rocephin and doxycycline at this time. Further recommendations to follow based on her clinical course. CHERI GUZMAN M.D. [id number]
[2016-07-14] MEDS: ZOLPIDEM TARTRATE 5 MG TABLET PO PRN (23:05)
[2016-07-15] MEDS: INSULIN SLIDING SCALE (NOVOLOG) 1 VIAL SQ SCH ×4 (06:08→21:09)
[2016-07-15] MEDS ORDERED: INSULIN (NOVOLOG) ASPART 100 UNITS/ML 10ML VIAL ONE ×2 (06:10→19:17)
[2016-07-15] MEDS: morphine CARPU-JECT 2 MG/1 ML DISP.SYRIN IVPUSH PRN ×3 (06:36→19:36)
[2016-07-15 06:48] LABS: MCH 29.4 pg (25.7-33.7); MCHC 32.9 g/dl (32.0-36.0); MEAN CELL VOLUME 89.4 fl (80-96); MEAN PLT VOLUME 8.9 fl (7.5-11.1); PLATELET COUNT 236 K/MM3 (134-434); RDW 13.7 % (11.6-15.6); WHITE BLOOD COUNT 11.3 K/mm3 (4.0-10.0)
[2016-07-15] MEDS: cefTRIAXone 2 GM/100 ML BAG (PRE-DOCKED) IVPB SCH (10:05)
--- NOTE | 2016-07-15 11:25 | CON.PULM ---
Consult Consult Specialty:: PULMONARY Referred by:: FRANCOISE Reason for Consultation:: SOB/COUGH/FEVER - History of Present Illness Chief Complaint: SOB/COUGH/FEVER/WHEEZES History of Present Illness: The patient is a 55-year-old woman with a past medical history of hypertension , hypercholesterolemia, coronary artery disease status post 1 stent placed, congestive heart failure, asthma, chronic obstructive pulmonary disease, insulin dependent diabetes mellitus, hepatitis C, bipolar disorder, seizure disorder, suicide attempt, depression who presents to the emergency department via EMS for further evaluation of shortness of breath. Upon ED arrival, patient was noted to have an oxygen saturation of 93% on room air, tachycardic at 144 and febrile at 102.3. As per patient, she states that she has endorsed an intermittent productive cough with a yellow sputum for the past few days. She states that her cough had worsened as she started to develop increasingly shortness of breath, generalized body aches and a fever. She doesn't know her baseline oxygen and is currently arranging to have O2 Liters send to her home. No sick contacts. No recent travel. She is an active smoker. 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 No: Alzheimer's Cardio/Vascular: Yes: CAD, HTN. No: AFIB Pulmonary: Yes: COPD Gastrointestinal: No: Ascites Hepatobiliary: Yes: Hepatitis C (from a blood transfusion) Reproductive: Yes: Postmenopausal ...: No Heme/Onc: No: Anemia Psych: Yes: Bipolar Endocrine: Yes: Diabetes Mellitus - Past Surgical History Past Surgical History: Yes: Hysterectomy, Colonoscopy - Alcohol/Substance Use Hx Alcohol Use: No History of Substance Use: reports: Cocaine - Smoking History Smoking history: Current every day smoker Have you smoked in the past 12 months: Yes Aproximately how many cigarettes per day: 20 - Social History Occupation: disabled Place of : [facility] History of Recent Travel: No Home Medications - Allergies Allergies/Adverse Reactions: Allergies Allergy/AdvReac Type Severity Reaction Status Date / Time No Known Allergies Allergy Verified 07/13/16 12:50 - Home Medications Home Medications: Ambulatory Orders Albuterol Sulfate Inhaler - [Ventolin HFA Inhaler -] 2 inh PO Q4H PRN 11/06/14 Aspirin [[place] Aspirin] 81 mg PO DAILY 11/06/14 Gabapentin 300 mg PO TID 11/06/14 Hydroxyzine HCl 50 mg PO DAILY 11/06/14 Lisinopril/Hydrochlorothiazide [Lisinopril-Hctz 20-12.5 mg Tab] 1 each PO DAILY 11/06/14 Salmeterol/Fluticasone [Advair 100Mcg/50Mcg -] 1 inh PO BID 11/06/14 Sennosides [Senokot] 1 tab PO DAILY PRN 11/13/14 Diltiazem HCl [Diltiazem 24Hr Cd] 120 mg PO DAILY 12/21/14 Duloxetine HCl 60 mg PO DAILY 12/21/14 Famotidine [Pepcid -] 40 mg PO DAILY 12/21/14 Insulin Glargine,Hum.rec.anlog [Lantus (10mL VIAL) -] 70 units SQ AM 12/21/14 Insulin Lispro [Humalog] 0 unit SQ ASDIR PRN 12/21/14 Levetiracetam [Keppra] 500 mg PO BID 12/21/14 Montelukast Na [Singulair -] 10 mg PO DAILY PRN 12/21/14 Olmesartan Medoxomil [Benicar -] 20 mg PO DAILY 12/21/14 Tiotropium [place] [Spiriva] 18 mcg IH DAILY 12/21/14 Zolpidem Tartrate [Ambien] 10 mg PO DAILY 12/21/14 Alprazolam [Xanax] 1 mg PO TID 07/13/16 Tramadol HCl 100 mg PO TID 07/13/16 Family Disease History - Family Disease History Family Disease History: Diabetes: Mother, Heart Disease: Father, Brother, Sister , Respiratory: Father, Other: Father, Brother, Sister Review of Systems - Review of Systems Cardiovascular: reports: Chest Pain (with cough) Respiratory: reports: Cough, Exercise Intolerance, SOB, SOB on Exertion, Wheezing. denies: Hemoptysis Gastrointestinal: reports: No Symptoms Genitourinary: reports: No Symptoms Breasts: reports: No Symptoms Reported Physical Exam Vital Sings: Vital Signs Temperature 99 F 07/15/16 06:03 Pulse Rate 102 H 07/15/16 06:03 Respiratory Rate 20 07/15/16 06:03 Blood Pressure 131/74 07/15/16 06:03 O2 Sat by Pulse Oximetry (%) 96 07/14/16 21:00 Constitutional: Yes: Anxious Eyes: Yes: EOM Intact HENT: Yes: Normocephalic Neck: Yes: Trachea Midline Cardiovascular: Yes: Tachycardia, S1, S2 Respiratory: Yes: Rhonchi, Wheezes (diffuse bilateral) Gastrointestinal: Yes: Normal Bowel Sounds, Abdomen, Obese Extremities: Yes: WNL Edema: LLE: Trace, RLE: Trace Neurological: Yes: Alert ...Motor Strength: WNL Labs: CBC, BMP 07/15/16 05:35 07/14/16 06:15 rest reviewed Imaging - Results Chest X-ray: Image Reviewed Cat Scan: Image Reviewed EKG: Image Reviewed Problem List - Problems (1) CAD (coronary artery disease) Code(s): I25.10 - ATHSCL HEART DISEASE OF [place] CORONARY ARTERY W/O ANG PCTRS (2) COPD (chronic obstructive pulmonary disease) Code(s): J44.9 - CHRONIC OBSTRUCTIVE PULMONARY DISEASE, UNSPECIFIED Qualifiers : COPD type: chronic bronchitis Chronic bronchitis type: unspecified Qualified Code(s): J42 - Unspecified chronic bronchitis (3) Hyperglycemia Code(s): R73.9 - HYPERGLYCEMIA, UNSPECIFIED (4) Hypertension Code(s): I10 - ESSENTIAL (PRIMARY) HYPERTENSION (5) Hypothyroidism Code(s): E03.9 - HYPOTHYROIDISM, UNSPECIFIED (6) Nicotine dependence Code(s): F17.200 - NICOTINE DEPENDENCE, UNSPECIFIED, UNCOMPLICATED (7) Seizure disorder Code(s): G40.909 - EPILEPSY, UNSP, NOT INTRACTABLE, WITHOUT STATUS EPILEPTICUS (8) Vitamin D deficiency Code(s): E55.9 - VITAMIN D DEFICIENCY, UNSPECIFIED (9) Pneumonia Code(s): J18.9 - PNEUMONIA, UNSPECIFIED ORGANISM Assessment/Plan PNEUMONIA/COPD/BRONCHOSPASTIC COMPONENT MUTIPLE MEDICAL PROBLEMS OUTLINED WILL SCHEDULE DUONEB Q6 SOLUMEDROL 40MG Q6/ANTIBIOTICS O2 TO KEEP SAT GREATER THAN 90% GLYCEMIC CONTROL/ANTIPYRETICS OOB TO CHAIR/CAT SCAN CHEST WILL FOLLOW THANK YOU Carey HACKETT MD
[2016-07-15] MEDS: DOXYCYCLINE INJECTION 100 MG in DEXTROSE 5%-WATER - 100 ML IVPB SCH ×2 (11:37→21:09)
--- NOTE | 2016-07-15 11:37 | PN ---
Progress Note (short form) - Note Progress Note: still feels lousy still coughing and wheezing Vital Signs Period Temp Pulse Resp BP Sys/Sultana Pulse Ox Last 24 Hr 98.3 F-99 F 96-107 18-20 131-145/74-85 96-96 cor-rrr lungs bilateral wheeze and rhonchi abd soft,nt ext no edema CBC, BMP 07/15/16 05:35 07/14/16 06:15 Microbiology 07/15/16 02:50 Urine For Antigen Detection Legionella Antigen - Final 07/15/16 02:50 Urine For Antigen Detection Streptococcus pneumoniae Antigen (M - Final 07/13/16 14:40 Blood - Peripheral Venous Blood Culture - Preliminary NO GROWTH OBTAINED AFTER 24 HOURS, INCUBATION TO CONTINUE FOR 4 DAYS. 07/13/16 14:40 Blood - Peripheral Venous Blood Culture - Preliminary NO GROWTH OBTAINED AFTER 24 HOURS, INCUBATION TO CONTINUE FOR 4 DAYS. 07/13/16 13:39 Urine - Urine Clean Catch Urine Culture - Final Contaminated: Please Repeat 07/13/16 13:50 Nasopharyngeal Swab Influenza Types A,B Antigen (KAUR) - Final 07/13/16 13:50 Nasopharyngeal Swab - Final sputum culture pending a/p pneumonia COPD active smoker continue ceftriaxone/doxycycline day #[address] scan of chest steroids and nebs added by pulmonary f/u cultures Problem List - Problems (1) Pneumonia Code(s): J18.9 - PNEUMONIA, UNSPECIFIED ORGANISM (2) COPD exacerbation Code(s): J44.1 - CHRONIC OBSTRUCTIVE PULMONARY DISEASE W (ACUTE) EXACERBATION (3) Tobacco abuse Code(s): Z72.0 - TOBACCO USE
[2016-07-15] MEDS: NICOTINE 21 MG/24 HOURS TOPICAL PATCH TD SCH (12:09)
[2016-07-15] MEDS: methylPREDNISolone NA SUCC 40 MG/1 ML VIAL IVPB SCH ×3 (12:09→21:09)
--- NOTE | 2016-07-15 12:10 | PN ---
Progress Note, Physician History of Present Illness: Pt seen and examined at bedside. She is awake and alert. She complains of shortness of breath today. - Current Medication List Current Medications: Active Medications Albuterol/Ipratropium (Duoneb -) 1 amp NEB QIDR [facility] Ceftriaxone Sodium (Rocephin 2gm Ivpb (Pre-Docked)) 2 gm IVPB DAILY ILYA PRN Reason: Protocol Last Admin: 07/15/16 10:05 Dose: 2 gm Doxycycline Hyclate 100 mg/ (Dextrose) 100 mls @ 100 mls/hr IVPB BID [facility] Last Admin: 07/15/16 11:37 Dose: 100 mls/hr Sodium Chloride (Normal Saline -) 1,000 mls @ 83 mls/hr IV ASDIR [facility] Last Admin: 07/14/16 20:54 Dose: 83 mls/hr Insulin Aspart (Novolog Vial Sliding Scale -) 1 vial SQ ACHS ILYA PRN Reason: Protocol Last Admin: 07/15/16 06:08 Dose: 2 units Methylprednisolone Sodium Succinate (Solu-Medrol -) 40 mg IVPB Q6H-IV ILYA Morphine Sulfate (Morphine Injection -) 2 mg IVPUSH Q4H PRN PRN Reason: PAIN Last Admin: 07/15/16 06:36 Dose: 2 mg Nicotine (Nicoderm Patch -) 21 mg TD DAILY [facility] Ondansetron HCl (Zofran Injection) 4 mg IVPB Q6H PRN PRN Reason: NAUSEA Last Admin: 07/14/16 06:34 Dose: 4 mg Zolpidem Tartrate (Ambien -) 10 mg PO HS PRN Last Admin: 07/14/16 23:05 Dose: 10 mg - Objective Vital Signs: Vital Signs Temperature 99 F 07/15/16 06:03 Pulse Rate 102 H 07/15/16 06:03 Respiratory Rate 20 07/15/16 06:03 Blood Pressure 131/74 07/15/16 06:03 O2 Sat by Pulse Oximetry (%) 96 07/14/16 21:00 Constitutional: Yes: Calm Eyes: Yes: Conjunctiva Clear HENT: Yes: Atraumatic Neck: Yes: Supple Cardiovascular: Yes: S1, S2 Respiratory: Yes: On Nasal O2, Tachypnea Gastrointestinal: Yes: Soft, Abdomen, Obese Genitourinary: Yes: WNL Musculoskeletal: Yes: WNL Edema: Yes Edema: LLE: Trace, RLE: Trace Neurological: Yes: Oriented Psychiatric: Yes: Oriented Labs: CBC, BMP 07/15/16 05:35 07/14/16 06:15 INR, PTT INR 1.03 (0.82-1.09) 07/13/16 14:40 Problem List - Problems (1) CAD (coronary artery disease) Code(s): I25.10 - ATHSCL HEART DISEASE OF [place] CORONARY ARTERY W/O ANG PCTRS (2) COPD (chronic obstructive pulmonary disease) Code(s): J44.9 - CHRONIC OBSTRUCTIVE PULMONARY DISEASE, UNSPECIFIED Qualifiers : COPD type: chronic bronchitis Chronic bronchitis type: unspecified Qualified Code(s): J42 - Unspecified chronic bronchitis (3) Pyelonephritis Code(s): N12 - TUBULO-INTERSTITIAL NEPHRITIS, NOT SPCF ACUTE OR CHRONIC (4) UTI (urinary tract infection) Code(s): N39.0 - URINARY TRACT INFECTION, SITE NOT SPECIFIED (5) Hepatitis C Code(s): B19.20 - UNSPECIFIED VIRAL HEPATITIS C WITHOUT HEPATIC COMA (6) Sepsis Code(s): A41.9 - SEPSIS, UNSPECIFIED ORGANISM (7) Lactic acid acidosis Code(s): E87.2 - ACIDOSIS Assessment/Plan Current Medications Generic Name Dose Route Start Last Admin Trade Name Freq PRN Reason Stop Dose Admin Albuterol/Ipratropium 1 amp 07/15/16 11:30 Duoneb - NEB QIDR ILYA Ceftriaxone Sodium 2 gm 07/14/16 11:00 07/15/16 10:05 Rocephin 2gm Ivpb (Pre-Docked) IVPB 2 gm DAILY ILYA Administration Protocol Doxycycline Hyclate 100 mg/ 100 mls @ 100 mls/hr 07/14/16 11:30 07/15/16 11:37 Dextrose IVPB 100 mls/hr BID ILYA Administration Sodium Chloride 1,000 mls @ 83 mls/hr 07/14/16 19:30 07/14/16 20:54 Normal Saline - IV 83 mls/hr ASDIR ILYA Administration Insulin Aspart 1 vial 07/13/16 22:00 07/15/16 06:08 Novolog Vial Sliding Scale - SQ 2 units ACHS ILYA Administration Protocol Methylprednisolone Sodium Succinate 40 mg 07/15/16 11:30 Solu-Medrol - IVPB Q6H-IV ILYA Morphine Sulfate 2 mg 07/13/16 20:53 07/15/16 06:36 Morphine Injection - IVPUSH 2 mg Q4H PRN Administration PAIN Nicotine 21 mg 07/15/16 11:30 Nicoderm Patch - TD DAILY ILYA Ondansetron HCl 4 mg 07/13/16 20:53 07/14/16 06:34 Zofran Injection IVPB 4 mg Q6H PRN Administration NAUSEA Zolpidem Tartrate 10 mg 07/14/16 22:54 07/14/16 23:05 Ambien - PO 10 mg HS PRN Administration Impression 1. sepsis 2. PNA 3. UTI 4. possible pyelo 5. COPD 6. Hep C 7. CAD 8. CHF Plan - will stop fluids for now - pulmonary input appreciated - renal ultrasound reviewed, urology follow up - cont abx - follow cultures - monitor BP closely - diuretics on hold - am cxr Dr Post
[2016-07-15] MEDS: ALBUTEROL SO4 2.5/IPRATROPIUM 0.5 INH SOL 3 ML VIAL.NEB. NEB SCH ×2 (13:45→18:24)
--- NOTE | 2016-07-15 20:27 | PN ---
Progress Note, Physician Chief Complaint: awake alert still SOB report of CT scan reviewed - Current Medication List Current Medications: Active Medications Albuterol/Ipratropium (Duoneb -) 1 amp NEB QIDR [facility] Last Admin: 07/15/16 18:24 Dose: 1 amp Ceftriaxone Sodium (Rocephin 2gm Ivpb (Pre-Docked)) 2 gm IVPB DAILY ILYA PRN Reason: Protocol Last Admin: 07/15/16 10:05 Dose: 2 gm Doxycycline Hyclate 100 mg/ (Dextrose) 100 mls @ 100 mls/hr IVPB BID [facility] Last Admin: 07/15/16 11:37 Dose: 100 mls/hr Insulin Aspart (Novolog Vial Sliding Scale -) 1 vial SQ ACHS ILYA PRN Reason: Protocol Last Admin: 07/15/16 17:31 Dose: 10 units Methylprednisolone Sodium Succinate (Solu-Medrol -) 40 mg IVPB Q6H-IV ILYA Last Admin: 07/15/16 15:47 Dose: 40 mg Morphine Sulfate (Morphine Injection -) 2 mg IVPUSH Q4H PRN PRN Reason: PAIN Last Admin: 07/15/16 19:36 Dose: 2 mg Nicotine (Nicoderm Patch -) 21 mg TD DAILY [facility] Last Admin: 07/15/16 12:09 Dose: 21 mg Ondansetron HCl (Zofran Injection) 4 mg IVPB Q6H PRN PRN Reason: NAUSEA Last Admin: 07/14/16 06:34 Dose: 4 mg Zolpidem Tartrate (Ambien -) 10 mg PO HS PRN Last Admin: 07/14/16 23:05 Dose: 10 mg - Objective Vital Signs: Vital Signs Temperature 98.4 F 07/15/16 19:55 Pulse Rate 100 H 07/15/16 19:55 Respiratory Rate 18 07/15/16 19:55 Blood Pressure 159/79 07/15/16 19:55 O2 Sat by Pulse Oximetry (%) 94 L 07/15/16 19:55 Constitutional: Yes: Moderate Distress Eyes: Yes: WNL HENT: Yes: WNL Neck: Yes: WNL Cardiovascular: Yes: WNL Respiratory: Yes: On Nasal O2, SOB, Wheezes Gastrointestinal: Yes: WNL Genitourinary: Yes: WNL Musculoskeletal: Yes: WNL Extremities: Yes: WNL Edema: No Peripheral Pulses WNL: Yes Integumentary: Yes: WNL Wound/Incision: Yes: Clean/Dry Neurological: Yes: WNL ...Motor Strength: WNL Psychiatric: Yes: WNL Labs: CBC, BMP 07/15/16 05:35 07/14/16 06:15 INR, PTT INR 1.03 (0.82-1.09) 07/13/16 14:40 Problem List - Problems (1) CAD (coronary artery disease) Code(s): I25.10 - ATHSCL HEART DISEASE OF [place] CORONARY ARTERY W/O ANG PCTRS (2) COPD (chronic obstructive pulmonary disease) Code(s): J44.9 - CHRONIC OBSTRUCTIVE PULMONARY DISEASE, UNSPECIFIED Qualifiers : COPD type: chronic bronchitis Chronic bronchitis type: unspecified Qualified Code(s): J42 - Unspecified chronic bronchitis (3) Chest pain at rest Code(s): R07.9 - CHEST PAIN, UNSPECIFIED (4) Dysarthria Code(s): R47.1 - DYSARTHRIA AND ANARTHRIA (5) Elevated liver enzymes Code(s): R74.8 - ABNORMAL LEVELS OF OTHER SERUM ENZYMES (6) Hyperglycemia Code(s): R73.9 - HYPERGLYCEMIA, UNSPECIFIED (7) Lactic acid acidosis Code(s): E87.2 - ACIDOSIS (8) Sepsis Code(s): A41.9 - SEPSIS, UNSPECIFIED ORGANISM (9) Severe sepsis Code(s): A41.9 - SEPSIS, UNSPECIFIED ORGANISM R65.20 - SEVERE SEPSIS WITHOUT SEPTIC SHOCK (10) Tobacco abuse Code(s): Z72.0 - TOBACCO USE (11) COPD exacerbation Code(s): J44.1 - CHRONIC OBSTRUCTIVE PULMONARY DISEASE W (ACUTE) EXACERBATION (12) Hypertension associated with diabetes Code(s): E11.59 - TYPE 2 DIABETES MELLITUS WITH OTH CIRCULATORY COMPLICATIONS I10 - ESSENTIAL (PRIMARY) HYPERTENSION (13) Pyelonephritis Code(s): N12 - TUBULO-INTERSTITIAL NEPHRITIS, NOT SPCF ACUTE OR CHRONIC (14) UTI (urinary tract infection) Code(s): N39.0 - URINARY TRACT INFECTION, SITE NOT SPECIFIED (15) Asthma Code(s): J45.909 - UNSPECIFIED ASTHMA, UNCOMPLICATED (16) Benzodiazepine dependence Code(s): F13.20 - SEDATIVE, HYPNOTIC OR ANXIOLYTIC DEPENDENCE, UNCOMPLICATED (17) Bipolar II disorder Code(s): F31.81 - BIPOLAR II DISORDER (18) Hepatitis C Code(s): B19.20 - UNSPECIFIED VIRAL HEPATITIS C WITHOUT HEPATIC COMA (19) Hypertension Code(s): I10 - ESSENTIAL (PRIMARY) HYPERTENSION (20) Nicotine dependence Code(s): F17.200 - NICOTINE DEPENDENCE, UNSPECIFIED, UNCOMPLICATED (21) Opioid dependence Code(s): F11.20 - OPIOID DEPENDENCE, UNCOMPLICATED (22) Seizure disorder Code(s): G40.909 - EPILEPSY, UNSP, NOT INTRACTABLE, WITHOUT STATUS EPILEPTICUS Assessment/Plan IV ABX CT CHEST CHRONIC CHANGES PULM F/U OUTPATIENT PET SCAN SMOKING CESSATION BLOOD AND URINE CULTURES PENDING ID AND NEPHROLOGY CONSULT IVF DM WITH SSI NICOTOINE PATCH/SMOKING CESSATION SUBS ABUSE IN PAST COUNCELED PAIN CONTROL
[2016-07-15] MEDS ORDERED: PT OWN MED DRAWER 7, Y5N ONE (21:03)
[2016-07-15] MEDS: ZOLPIDEM TARTRATE 5 MG TABLET PO PRN (21:10)
[2016-07-15] MEDS ORDERED: ALPRAZolam 0.25 MG TABLET PO ONE (21:30)
[2016-07-16] MEDS: ALBUTEROL SO4 2.5/IPRATROPIUM 0.5 INH SOL 3 ML VIAL.NEB. NEB SCH ×5 (00:20→23:31)
[2016-07-16] MEDS: methylPREDNISolone NA SUCC 40 MG/1 ML VIAL IVPB SCH ×4 (02:37→22:18)
[2016-07-16] MEDS: morphine CARPU-JECT 2 MG/1 ML DISP.SYRIN IVPUSH PRN (05:29)
[2016-07-16] MEDS ORDERED: INSULIN (NOVOLOG) ASPART 100 UNITS/ML 10ML VIAL ONE ×3 (06:06→22:07)
[2016-07-16] MEDS: INSULIN SLIDING SCALE (NOVOLOG) 1 VIAL SQ SCH ×4 (06:07→22:22)
[2016-07-16 07:00] LABS: CALCIUM 9.2 mg/dL (8.5-10.1); CREATININE 0.5 mg/dL (0.55-1.02)
[2016-07-16] MEDS ORDERED: PT OWN MED DRAWER 7, Y5N ONE (08:52)
[2016-07-16] MEDS: NICOTINE 21 MG/24 HOURS TOPICAL PATCH TD SCH (09:08)
[2016-07-16] MEDS: cefTRIAXone 2 GM/100 ML BAG (PRE-DOCKED) IVPB SCH (09:09)
[2016-07-16] MEDS: AZITHROMYCIN 250 MG TABLET (FP) PO SCH (09:13)
[2016-07-16] MEDS: oxyCODONE HCL 5 MG TABLET PO PRN ×2 (09:13→19:58)
[2016-07-16] MEDS: DOXYCYCLINE INJECTION 100 MG in DEXTROSE 5%-WATER - 100 ML IVPB SCH (09:49)
[2016-07-16] MEDS: ALPRAZolam 0.25 MG TABLET PO SCH ×3 (10:37→22:22)
[2016-07-16] MEDS ORDERED: ALPRAZolam 0.25 MG TABLET PO SCH (14:00)
--- NOTE | 2016-07-16 14:05 | PN ---
Progress Note (short form) - Note Progress Note: feels better today cough has dryed up Vital Signs Period Temp Pulse Resp BP Sys/Sultana Pulse Ox Last 24 Hr 97.8 F-100.0 F 85-100 18-20 133-159/79-97 92-94 cor-rrr lungs rhonchi, no wheeze abd soft,nt ext no edema CBC, BMP 07/15/16 05:35 07/16/16 05:35 Microbiology 07/15/16 06:30 Sputum - Expectorated Sputum Culture - Preliminary Yeast Like Organism 07/13/16 14:40 Blood - Peripheral Venous Blood Culture - Preliminary NO GROWTH OBTAINED AFTER 48 HOURS, INCUBATION TO CONTINUE FOR 3 DAYS. 07/13/16 14:40 Blood - Peripheral Venous Blood Culture - Preliminary NO GROWTH OBTAINED AFTER 48 HOURS, INCUBATION TO CONTINUE FOR 3 DAYS. 07/15/16 02:50 Urine For Antigen Detection Legionella Antigen - Final 07/15/16 02:50 Urine For Antigen Detection Streptococcus pneumoniae Antigen (M - Final 07/13/16 13:39 Urine - Urine Clean Catch Urine Culture - Final Contaminated: Please Repeat 07/13/16 13:50 Nasopharyngeal Swab Influenza Types A,B Antigen (KAUR) - Final 07/13/16 13:50 Nasopharyngeal Swab - Final chest ct noted Current Medications Generic Name Dose Route Start Last Admin Trade Name Freq PRN Reason Stop Dose Admin Albuterol/Ipratropium 1 amp 07/15/16 11:30 07/16/16 12:09 Duoneb - NEB 1 amp QIDR ILYA Administration Alprazolam 1 mg 07/16/16 10:30 07/16/16 13:39 Xanax - PO Not Given TID ILYA Azithromycin 500 mg 07/16/16 10:00 07/16/16 09:13 Zithromax - PO 500 mg DAILY ILYA Administration Ceftriaxone Sodium 2 gm 07/14/16 11:00 07/16/16 09:09 Rocephin 2gm Ivpb (Pre-Docked) IVPB 2 gm DAILY ILYA Administration Protocol Docusate Sodium 300 mg 07/16/16 22:00 Colace - PO HS ILYA Insulin Aspart 1 vial 07/13/16 22:00 07/16/16 12:20 Novolog Vial Sliding Scale - SQ 8 units ACHS ILYA Administration Protocol Insulin Detemir 15 units 07/16/16 22:00 Levemir Vial SQ HS ILYA Methylprednisolone Sodium Succinate 40 mg 07/15/16 11:30 07/16/16 09:08 Solu-Medrol - IVPB 40 mg Q6H-IV ILYA Administration Nicotine 21 mg 07/15/16 11:30 07/16/16 09:08 Nicoderm Patch - TD 21 mg DAILY ILYA Administration Ondansetron HCl 4 mg 07/13/16 20:53 07/14/16 06:34 Zofran Injection IVPB 4 mg Q6H PRN Administration NAUSEA Oxycodone HCl 5 mg 07/16/16 07:56 07/16/16 09:13 Roxicodone - PO 5 mg Q6H PRN Administration PAIN Zolpidem Tartrate 10 mg 07/14/16 22:54 07/15/16 21:10 Ambien - PO 10 mg HS PRN Administration a/p pneumonia copd continue rocephin/zithromax doing well Problem List - Problems (1) Pneumonia Code(s): J18.9 - PNEUMONIA, UNSPECIFIED ORGANISM (2) COPD exacerbation Code(s): J44.1 - CHRONIC OBSTRUCTIVE PULMONARY DISEASE W (ACUTE) EXACERBATION (3) Tobacco abuse Code(s): Z72.0 - TOBACCO USE
--- NOTE | 2016-07-16 14:11 | PN ---
Progress Note, Physician History of Present Illness: Pt seen and examined at bedside. She feels better today. She denies dysuria. She does feel anxious. She feels that the oxygen helps her and says she is waiting for her home oxygen to be set up. - Current Medication List Current Medications: Active Medications Albuterol/Ipratropium (Duoneb -) 1 amp NEB QIDR [facility] Last Admin: 07/16/16 12:09 Dose: 1 amp Alprazolam (Xanax -) 1 mg PO TID [facility] Last Admin: 07/16/16 13:39 Dose: Not Given Azithromycin (Zithromax -) 500 mg PO DAILY [facility] Last Admin: 07/16/16 09:13 Dose: 500 mg Ceftriaxone Sodium (Rocephin 2gm Ivpb (Pre-Docked)) 2 gm IVPB DAILY [facility] PRN Reason: Protocol Last Admin: 07/16/16 09:09 Dose: 2 gm Docusate Sodium (Colace -) 300 mg PO HS [facility] Insulin Aspart (Novolog Vial Sliding Scale -) 1 vial SQ ACHS [facility] PRN Reason: Protocol Last Admin: 07/16/16 12:20 Dose: 8 units Insulin Detemir (Levemir Vial) 15 units SQ HS [facility] Methylprednisolone Sodium Succinate (Solu-Medrol -) 40 mg IVPB Q6H-IV [facility] Last Admin: 07/16/16 09:08 Dose: 40 mg Nicotine (Nicoderm Patch -) 21 mg TD DAILY [facility] Last Admin: 07/16/16 09:08 Dose: 21 mg Ondansetron HCl (Zofran Injection) 4 mg IVPB Q6H PRN PRN Reason: NAUSEA Last Admin: 07/14/16 06:34 Dose: 4 mg Oxycodone HCl (Roxicodone -) 5 mg PO Q6H PRN PRN Reason: PAIN Last Admin: 07/16/16 09:13 Dose: 5 mg Zolpidem Tartrate (Ambien -) 10 mg PO HS PRN Last Admin: 07/15/16 21:10 Dose: 10 mg - Objective Vital Signs: Vital Signs Temperature 97.9 F 07/16/16 10:00 Pulse Rate 90 07/16/16 10:00 Respiratory Rate 20 07/16/16 10:00 Blood Pressure 150/97 07/16/16 10:00 O2 Sat by Pulse Oximetry (%) 92 L 07/16/16 09:00 Constitutional: Yes: Calm Eyes: Yes: Conjunctiva Clear HENT: Yes: Atraumatic Neck: Yes: Supple Cardiovascular: Yes: S1, S2 Respiratory: Yes: On Nasal O2, Wheezes Gastrointestinal: Yes: Soft, Abdomen, Obese Genitourinary: Yes: WNL Musculoskeletal: Yes: WNL Edema: LLE: Trace, RLE: Trace Neurological: Yes: Oriented Psychiatric: Yes: Oriented Labs: CBC, BMP 07/15/16 05:35 07/16/16 05:35 INR, PTT INR 1.03 (0.82-1.09) 07/13/16 14:40 Problem List - Problems (1) CAD (coronary artery disease) Code(s): I25.10 - ATHSCL HEART DISEASE OF [place] CORONARY ARTERY W/O ANG PCTRS (2) COPD (chronic obstructive pulmonary disease) Code(s): J44.9 - CHRONIC OBSTRUCTIVE PULMONARY DISEASE, UNSPECIFIED Qualifiers : Qualified Code(s): J42 - Unspecified chronic bronchitis (3) Pyelonephritis Code(s): N12 - TUBULO-INTERSTITIAL NEPHRITIS, NOT SPCF ACUTE OR CHRONIC (4) UTI (urinary tract infection) Code(s): N39.0 - URINARY TRACT INFECTION, SITE NOT SPECIFIED (5) Hepatitis C Code(s): B19.20 - UNSPECIFIED VIRAL HEPATITIS C WITHOUT HEPATIC COMA (6) Sepsis Code(s): A41.9 - SEPSIS, UNSPECIFIED ORGANISM (7) Lactic acid acidosis Code(s): E87.2 - ACIDOSIS Assessment/Plan Current Medications Generic Name Dose Route Start Last Admin Trade Name Saw PRN Reason Stop Dose Admin Albuterol/Ipratropium 1 amp 07/15/16 11:30 07/16/16 12:09 Duoneb - NEB 1 amp QIDR ILYA Administration Alprazolam 1 mg 07/16/16 10:30 07/16/16 13:39 Xanax - PO Not Given TID ILYA Azithromycin 500 mg 07/16/16 10:00 07/16/16 09:13 Zithromax - PO 500 mg DAILY ILYA Administration Ceftriaxone Sodium 2 gm 07/14/16 11:00 07/16/16 09:09 Rocephin 2gm Ivpb (Pre-Docked) IVPB 2 gm DAILY ILYA Administration Protocol Docusate Sodium 300 mg 07/16/16 22:00 Colace - PO HS ILYA Insulin Aspart 1 vial 07/13/16 22:00 07/16/16 12:20 Novolog Vial Sliding Scale - SQ 8 units ACHS ILYA Administration Protocol Insulin Detemir 15 units 07/16/16 22:00 Levemir Vial SQ HS ILYA Methylprednisolone Sodium Succinate 40 mg 07/15/16 11:30 07/16/16 09:08 Solu-Medrol - IVPB 40 mg Q6H-IV ILYA Administration Nicotine 21 mg 07/15/16 11:30 07/16/16 09:08 Nicoderm Patch - TD 21 mg DAILY ILYA Administration Ondansetron HCl 4 mg 07/13/16 20:53 07/14/16 06:34 Zofran Injection IVPB 4 mg Q6H PRN Administration NAUSEA Oxycodone HCl 5 mg 07/16/16 07:56 07/16/16 09:13 Roxicodone - PO 5 mg Q6H PRN Administration PAIN Zolpidem Tartrate 10 mg 07/14/16 22:54 07/15/16 21:10 Ambien - PO 10 mg HS PRN Administration Impression 1. sepsis 2. PNA 3. UTI 4. possible pyelo 5. COPD 6. Hep C 7. CAD 8. CHF Plan - renal function is stabilizing - cont steroids - monitor pulse ox on oxygen - will need tighter blood sugar control - pt is tolerating PO intake - can resume diuretics in am - am cxr Dr Post
[2016-07-16] MEDS: LISINOPRIL 20 MG TABLET (FP) PO SCH (14:31)
[2016-07-16] MEDS: HYDROCHLOROTHIAZIDE 12.5 MG CAPSULE (FP) PO SCH (14:31)
--- NOTE | 2016-07-16 15:41 | PN ---
Progress Note (short form) - Note Progress Note: Feels a little better today. Still with some congested cough. Intake & Output 07/13/16 07/14/16 07/15/16 07/16/16 23:59 23:59 23:59 23:59 Intake Total 685 1911 600 Balance 685 1911 600 Weight 213 lb 213 lb 221 lb Last Vital Signs Temp Pulse Resp BP Pulse Ox 98.2 F 115 H 18 193/122 92 L 07/16/16 14:32 07/16/16 14:32 07/16/16 14:32 07/16/16 14:32 07/16/16 09:00 Active Medications Albuterol/Ipratropium (Duoneb -) 1 amp NEB QIDR [facility] Last Admin: 07/16/16 12:09 Dose: 1 amp Alprazolam (Xanax -) 1 mg PO TID [facility] Last Admin: 07/16/16 13:39 Dose: Not Given Azithromycin (Zithromax -) 500 mg PO DAILY [facility] Last Admin: 07/16/16 09:13 Dose: 500 mg Ceftriaxone Sodium (Rocephin 2gm Ivpb (Pre-Docked)) 2 gm IVPB DAILY [facility] PRN Reason: Protocol Last Admin: 07/16/16 09:09 Dose: 2 gm Diltiazem HCl (Cardizem Cd -) 120 mg PO DAILY [facility] Last Admin: 07/16/16 14:31 Dose: 120 mg Docusate Sodium (Colace -) 300 mg PO HS [facility] Hydrochlorothiazide (Hctz -) 12.5 mg PO DAILY [facility] Last Admin: 07/16/16 14:31 Dose: 12.5 mg Insulin Aspart (Novolog Vial Sliding Scale -) 1 vial SQ ACHS [facility] PRN Reason: Protocol Last Admin: 07/16/16 12:20 Dose: 8 units Insulin Detemir (Levemir Vial) 15 units SQ HS [facility] Lisinopril (Prinivil) 20 mg PO DAILY [facility] Last Admin: 07/16/16 14:31 Dose: 20 mg Methylprednisolone Sodium Succinate (Solu-Medrol -) 40 mg IVPB Q6H-IV [facility] Last Admin: 07/16/16 14:31 Dose: 40 mg Nicotine (Nicoderm Patch -) 21 mg TD DAILY [facility] Last Admin: 07/16/16 09:08 Dose: 21 mg Ondansetron HCl (Zofran Injection) 4 mg IVPB Q6H PRN PRN Reason: NAUSEA Last Admin: 07/14/16 06:34 Dose: 4 mg Oxycodone HCl (Roxicodone -) 5 mg PO Q6H PRN PRN Reason: PAIN Last Admin: 07/16/16 09:13 Dose: 5 mg Zolpidem Tartrate (Ambien -) 10 mg PO HS PRN Last Admin: 07/15/16 21:10 Dose: 10 mg Constitutional: Yes: NAD Eyes: Yes: EOM Intact HENT: Yes: Normocephalic Neck: Yes: Trachea Midline Cardiovascular: Yes: Tachycardia, S1, S2 Respiratory: Yes: Scattered Rhonchi, mild expiratory wheezes Gastrointestinal: Yes: Normal Bowel Sounds, Abdomen, Obese Extremities: Yes: WNL Edema: LLE: Trace, RLE: Trace Neurological: Yes: Alert ...Motor Strength: WNL Labs: Laboratory Results - last 24 hr 07/15/16 07/15/16 07/16/16 17:29 20:49 05:33 Sodium Potassium Chloride Carbon Dioxide Anion Gap BUN Creatinine POC Glucometer 436 381 252 Random Glucose Calcium 07/16/16 07/16/16 05:35 11:25 Sodium 135 L Potassium 4.1 Chloride 92 L Carbon Dioxide 32 Anion Gap 11 BUN 5 L D Creatinine 0.5 L POC Glucometer 394 Random Glucose 291 H D Calcium 9.2 Problem List - Problems (1) CAD (coronary artery disease) Code(s): I25.10 - ATHSCL HEART DISEASE OF [place] CORONARY ARTERY W/O ANG PCTRS (2) COPD (chronic obstructive pulmonary disease) Code(s): J44.9 - CHRONIC OBSTRUCTIVE PULMONARY DISEASE, UNSPECIFIED Qualifiers : COPD type: chronic bronchitis Chronic bronchitis type: unspecified Qualified Code(s): J42 - Unspecified chronic bronchitis (3) Hyperglycemia Code(s): R73.9 - HYPERGLYCEMIA, UNSPECIFIED (4) Hypertension Code(s): I10 - ESSENTIAL (PRIMARY) HYPERTENSION (5) Hypothyroidism Code(s): E03.9 - HYPOTHYROIDISM, UNSPECIFIED (6) Nicotine dependence Code(s): F17.200 - NICOTINE DEPENDENCE, UNSPECIFIED, UNCOMPLICATED (7) Seizure disorder Code(s): G40.909 - EPILEPSY, UNSP, NOT INTRACTABLE, WITHOUT STATUS EPILEPTICUS (8) Vitamin D deficiency Code(s): E55.9 - VITAMIN D DEFICIENCY, UNSPECIFIED (9) Pneumonia Code(s): J18.9 - PNEUMONIA, UNSPECIFIED ORGANISM Assessment/Plan Taper Medrol BD TX ABX BD TX O2 as needed No smoking Will need follow up CT imaging and possibly PET as an outpatient Dr Cheng
[2016-07-16] MEDS ORDERED: ALPRAZolam 0.25 MG TABLET PO ONE (17:00)
--- NOTE | 2016-07-16 18:57 | PN ---
Progress Note, Physician Chief Complaint: AWAKE ALERT DISTRESSED BECAUSE SHE FOUND OUT SHE LOST HER CAT AT HOME. CRYING AND LABILE. NO HARM TO HERSELF OR OTHERS. - Current Medication List Current Medications: Active Medications Albuterol/Ipratropium (Duoneb -) 1 amp NEB QIDR [facility] Last Admin: 07/16/16 17:00 Dose: 1 amp Alprazolam (Xanax -) 1 mg PO TID [facility] Last Admin: 07/16/16 13:39 Dose: Not Given Azithromycin (Zithromax -) 500 mg PO DAILY [facility] Last Admin: 07/16/16 09:13 Dose: 500 mg Ceftriaxone Sodium (Rocephin 2gm Ivpb (Pre-Docked)) 2 gm IVPB DAILY [facility] PRN Reason: Protocol Last Admin: 07/16/16 09:09 Dose: 2 gm Diltiazem HCl (Cardizem Cd -) 120 mg PO DAILY [facility] Last Admin: 07/16/16 14:31 Dose: 120 mg Docusate Sodium (Colace -) 300 mg PO HS [facility] Hydrochlorothiazide (Hctz -) 12.5 mg PO DAILY [facility] Last Admin: 07/16/16 14:31 Dose: 12.5 mg Insulin Aspart (Novolog Vial Sliding Scale -) 1 vial SQ [facility] PRN Reason: Protocol Last Admin: 07/16/16 17:19 Dose: 8 units Insulin Detemir (Levemir Vial) 15 units SQ [facility] Lisinopril (Prinivil) 20 mg PO DAILY [facility] Last Admin: 07/16/16 14:31 Dose: 20 mg Methylprednisolone Sodium Succinate (Solu-Medrol -) 40 mg IVPB Q6H-IV [facility] Last Admin: 07/16/16 14:31 Dose: 40 mg Nicotine (Nicoderm Patch -) 21 mg TD DAILY [facility] Last Admin: 07/16/16 09:08 Dose: 21 mg Ondansetron HCl (Zofran Injection) 4 mg IVPB Q6H PRN PRN Reason: NAUSEA Last Admin: 07/14/16 06:34 Dose: 4 mg Oxycodone HCl (Roxicodone -) 5 mg PO Q6H PRN PRN Reason: PAIN Last Admin: 07/16/16 09:13 Dose: 5 mg Zolpidem Tartrate (Ambien -) 10 mg PO HS PRN Last Admin: 07/15/16 21:10 Dose: 10 mg - Objective Vital Signs: Vital Signs Temperature 98.2 F 07/16/16 14:32 Pulse Rate 115 H 07/16/16 14:32 Respiratory Rate 18 07/16/16 14:32 Blood Pressure 193/122 07/16/16 14:32 O2 Sat by Pulse Oximetry (%) 92 L 07/16/16 09:00 Constitutional: Yes: Mild Distress Eyes: Yes: WNL HENT: Yes: WNL Neck: Yes: WNL Cardiovascular: Yes: WNL Respiratory: Yes: On Nasal O2, SOB, Wheezes, Other Gastrointestinal: Yes: WNL Genitourinary: Yes: WNL Musculoskeletal: Yes: WNL Edema: Yes Edema: LLE: Trace, RLE: Trace Peripheral Pulses WNL: Yes Integumentary: Yes: WNL Wound/Incision: Yes: Clean/Dry Neurological: Yes: Pre-Existing Deficit ...Motor Strength: LLE, RLE Labs: CBC, BMP 07/15/16 05:35 07/16/16 05:35 INR, PTT INR 1.03 (0.82-1.09) 07/13/16 14:40 Problem List - Problems (1) CAD (coronary artery disease) Code(s): I25.10 - ATHSCL HEART DISEASE OF [place] CORONARY ARTERY W/O ANG PCTRS (2) COPD (chronic obstructive pulmonary disease) Code(s): J44.9 - CHRONIC OBSTRUCTIVE PULMONARY DISEASE, UNSPECIFIED Qualifiers : COPD type: chronic bronchitis Chronic bronchitis type: unspecified Qualified Code(s): J42 - Unspecified chronic bronchitis (3) Chest pain at rest Code(s): R07.9 - CHEST PAIN, UNSPECIFIED (4) Dysarthria Code(s): R47.1 - DYSARTHRIA AND ANARTHRIA (5) Elevated liver enzymes Code(s): R74.8 - ABNORMAL LEVELS OF OTHER SERUM ENZYMES (6) Hyperglycemia Code(s): R73.9 - HYPERGLYCEMIA, UNSPECIFIED (7) Lactic acid acidosis Code(s): E87.2 - ACIDOSIS (8) Sepsis Code(s): A41.9 - SEPSIS, UNSPECIFIED ORGANISM (9) Severe sepsis Code(s): A41.9 - SEPSIS, UNSPECIFIED ORGANISM R65.20 - SEVERE SEPSIS WITHOUT SEPTIC SHOCK (10) Tobacco abuse Code(s): Z72.0 - TOBACCO USE (11) COPD exacerbation Code(s): J44.1 - CHRONIC OBSTRUCTIVE PULMONARY DISEASE W (ACUTE) EXACERBATION (12) Hypertension associated with diabetes Code(s): E11.59 - TYPE 2 DIABETES MELLITUS WITH OTH CIRCULATORY COMPLICATIONS I10 - ESSENTIAL (PRIMARY) HYPERTENSION (13) Pyelonephritis Code(s): N12 - TUBULO-INTERSTITIAL NEPHRITIS, NOT SPCF ACUTE OR CHRONIC (14) UTI (urinary tract infection) Code(s): N39.0 - URINARY TRACT INFECTION, SITE NOT SPECIFIED (15) Asthma Code(s): J45.909 - UNSPECIFIED ASTHMA, UNCOMPLICATED (16) Benzodiazepine dependence Code(s): F13.20 - SEDATIVE, HYPNOTIC OR ANXIOLYTIC DEPENDENCE, UNCOMPLICATED (17) Bipolar II disorder Code(s): F31.81 - BIPOLAR II DISORDER (18) Hepatitis C Code(s): B19.20 - UNSPECIFIED VIRAL HEPATITIS C WITHOUT HEPATIC COMA (19) Hypertension Code(s): I10 - ESSENTIAL (PRIMARY) HYPERTENSION (20) Nicotine dependence Code(s): F17.200 - NICOTINE DEPENDENCE, UNSPECIFIED, UNCOMPLICATED (21) Opioid dependence Code(s): F11.20 - OPIOID DEPENDENCE, UNCOMPLICATED (22) Seizure disorder Code(s): G40.909 - EPILEPSY, UNSP, NOT INTRACTABLE, WITHOUT STATUS EPILEPTICUS Assessment/Plan IV ABX CT CHEST CHRONIC CHANGES PULM F/U OUTPATIENT PET SCAN SMOKING CESSATION BLOOD AND URINE CULTURES PENDING ID AND NEPHROLOGY CONSULT IVF DM WITH SSI NICOTOINE PATCH/SMOKING CESSATION SUBS ABUSE IN PAST COUNCELED PAIN CONTROL XANAX RESTARTED CARDIZEM AND LISINOPRIL RESTARTED
[2016-07-16] MEDS: ZOLPIDEM TARTRATE 5 MG TABLET PO PRN (22:22)
[2016-07-16] MEDS: INSULIN DETEMIR 100 UNITS/ML MDV SQ SCH (22:22)
[2016-07-16] MEDS: DOCUSATE SODIUM 100 MG CAPSULE (FP) PO SCH (22:22)
[2016-07-17] MEDS: methylPREDNISolone NA SUCC 40 MG/1 ML VIAL IVPB SCH ×4 (02:25→17:12)
[2016-07-17] MEDS: oxyCODONE HCL 5 MG TABLET PO PRN ×2 (03:17→23:54)
[2016-07-17] MEDS ORDERED: INSULIN (NOVOLOG) ASPART 100 UNITS/ML 10ML VIAL ONE ×2 (05:58→21:37)
[2016-07-17] MEDS: INSULIN SLIDING SCALE (NOVOLOG) 1 VIAL SQ SCH ×4 (06:02→21:44)
[2016-07-17] MEDS: ALPRAZolam 0.25 MG TABLET PO SCH ×3 (06:03→21:43)
[2016-07-17 06:51] LABS: MCH 30.1 pg (25.7-33.7); MCHC 34.4 g/dl (32.0-36.0); MEAN CELL VOLUME 87.7 fl (80-96); MEAN PLT VOLUME 9.1 fl (7.5-11.1); PLATELET COUNT 348 K/MM3 (134-434); RDW 13.5 % (11.6-15.6); WHITE BLOOD COUNT 16.6 K/mm3 (4.0-10.0)
[2016-07-17] MEDS: ALBUTEROL SO4 2.5/IPRATROPIUM 0.5 INH SOL 3 ML VIAL.NEB. NEB SCH ×3 (06:58→17:32)
[2016-07-17 07:12] LABS: ALBUMIN 2.7 g/dl (3.4-5.0); ANION GAP 11 (8-16); BILIRUBIN,TOTAL 0.5 mg/dL (0.2-1.0); CALCIUM 8.9 mg/dL (8.5-10.1); CO2 30 mmol/L (21-32); COCKROFT - GAULT 163.7015; CREATININE 0.6 mg/dL (0.55-1.02); SGOT/AST 10 U/L (15-37); SGPT/ALT 33 U/L (12-78); TOT PROT 7.4 g/dl (6.4-8.2)
[2016-07-17 07:16] LABS: ALK PHOS 109 U/L (45-117)
[2016-07-17 07:26] LABS: GLUCOSE,RANDOM 483 mg/dL (74-106)
[2016-07-17] MEDS ORDERED: levETIRAcetam 500 MG/5 ML INJECTION VIAL IVPB ONE (09:44)
--- NOTE | 2016-07-17 09:46 | HOSP ---
Subjective - Review of Symptoms Events since last encounter: Rapid response called due to patient not responding; blank stare, tachycardic. Awake, not alert or oriented. Not responding to name or questioning. The patient is a 55-year-old woman with a past medical history of hypertension , hypercholesterolemia, coronary artery disease status post 1 stent placed, congestive heart failure, asthma, chronic obstructive pulmonary disease, insulin dependent diabetes mellitus, hepatitis C, bipolar disorder, seizure disorder, suicide attempt, depression who presents to the emergency department via EMS for further evaluation of shortness of breath. Physical Examination Vital Signs: Vital Signs Temperature 97.6 F 07/17/16 06:39 Pulse Rate 81 07/17/16 06:39 Respiratory Rate 20 07/17/16 06:39 Blood Pressure 127/78 07/17/16 06:39 O2 Sat by Pulse Oximetry (%) 92 L 07/16/16 20:02 Eyes: Yes: Other (blank stare, pupils not reactive) HENT: Yes: Atraumatic, Normocephalic Cardiovascular: Yes: Tachycardia (nsr), S1, S2. No: Murmur Gastrointestinal: Yes: Normal Bowel Sounds, Soft, Abdomen, Obese Edema: No Peripheral Pulses: Left Radial: 2+, Right Radial: 2+, Left Doralis Pedis: 2+, Right Dorsalis Pedis: 2+ Neurological: No: Alert, Oriented (blank stare; pupils non reactive; corneal reflexes present) Labs: CBC, BMP 07/17/16 05:35 07/17/16 05:35 Hospitalist Encounter Assessment: The patient is a 55-year-old woman with a past medical history of hypertension , hypercholesterolemia, coronary artery disease status post 1 stent placed, congestive heart failure, asthma, chronic obstructive pulmonary disease, insulin dependent diabetes mellitus, hepatitis C, bipolar disorder, seizure disorder, suicide attempt, depression who presents to the emergency department via EMS for further evaluation of shortness of breath. ADMITTED FOR SEPSIS Blank stare/ tachycardic; stat bmp, mg, ca, prolactin, lactic acid head ct when stable patient hx of seizure not currently taking keppra while in hospital; stat keppra 500mg IVPB fingerstick >400; stat 10U of insulin given PMD contacted Neurology consulted Outcome: ; normotensive, regular HR re eval after inulin and labs, medication, head ct Primary Physician Notified: Rc Pineda Time PMD Notified: 10:55 Visit type - Emergency Visit Emergency Visit: Yes ED Registration Date: 07/13/16 Care time: The patient presented to the Emergency Department on the above date and was hospitalized for further evaluation of their emergent condition. - New Patient This patient is new to me today: Yes Date on this admission: 07/17/16 - Critical Care Critical Care patient: No
[2016-07-17] MEDS: NICOTINE 21 MG/24 HOURS TOPICAL PATCH TD SCH (11:20)
[2016-07-17] MEDS: HYDROCHLOROTHIAZIDE 12.5 MG CAPSULE (FP) PO SCH (11:20)
[2016-07-17] MEDS: AZITHROMYCIN 250 MG TABLET (FP) PO SCH (11:20)
[2016-07-17] MEDS: LISINOPRIL 20 MG TABLET (FP) PO SCH (11:20)
[2016-07-17] MEDS: cefTRIAXone 2 GM/100 ML BAG (PRE-DOCKED) IVPB SCH (11:20)
[2016-07-17 11:54] LABS: CALCIUM 9.1 mg/dL (8.5-10.1); COCKROFT - GAULT 122.774; CREATININE 0.8 mg/dL (0.55-1.02); MAGNESIUM 2.2 mg/dL (1.8-2.4)
[2016-07-17] MEDS ORDERED: INSULIN (NOVOLOG) ASPART 100 UNITS/ML 10ML VIAL SQ ONE ×2 (12:15→15:00)
[2016-07-17] MEDS: DULoxetine HCL 30 MG CAPSULE.DR (FP) PO SCH (13:36)
[2016-07-17] MEDS: traMADol HCL 50 MG TABLET PO PRN ×2 (13:36→19:54)
[2016-07-17] MEDS: FLUTICASONE/SALMETEROL 100 MCG/50 MCG DISKUS IH SCH ×2 (13:36→21:44)
[2016-07-17] MEDS ORDERED: PT OWN MED DRAWER 7, Y5N ONE ×2 (13:46→21:37)
--- NOTE | 2016-07-17 14:08 | PN ---
Progress Note (short form) - Note Progress Note: episode of unresponsiveness today now resolved felt to be secondary to seizure, kalin restarted Vital Signs Period Temp Pulse Resp BP Sys/Sultana Pulse Ox Last 24 Hr 97.5 F-98.6 F 70-115 18-20 127-193/75-122 92-94 cor-rrr lungs scattered rhonchi abd- soft,nt ext no edema CBC, BMP 07/17/16 05:35 07/17/16 09:[address] noted Microbiology 07/13/16 14:40 Blood - Peripheral Venous Blood Culture - Preliminary NO GROWTH OBTAINED AFTER 72 HOURS, INCUBATION TO CONTINUE FOR 2 DAYS. 07/13/16 14:40 Blood - Peripheral Venous Blood Culture - Preliminary NO GROWTH OBTAINED AFTER 72 HOURS, INCUBATION TO CONTINUE FOR 2 DAYS. 07/15/16 06:30 Sputum - Expectorated Sputum Culture - Preliminary Yeast Like Organism 07/15/16 02:50 Urine For Antigen Detection Legionella Antigen - Final 07/15/16 02:50 Urine For Antigen Detection Streptococcus pneumoniae Antigen (M - Final 07/13/16 13:39 Urine - Urine Clean Catch Urine Culture - Final Contaminated: Please Repeat 07/13/16 13:50 Nasopharyngeal Swab Influenza Types A,B Antigen (KAUR) - Final 07/13/16 13:50 Nasopharyngeal Swab - Final Current Medications Albuterol/Ipratropium (Duoneb -) 1 amp NEB QIDR [facility] Last Admin: 07/17/16 11:55 Dose: 1 amp Alprazolam (Xanax -) 1 mg PO TID [facility] Last Admin: 07/17/16 13:35 Dose: 1 mg Aspirin (Ecotrin -) 81 mg PO DAILY [facility] Azithromycin (Zithromax -) 500 mg PO DAILY [facility] Last Admin: 07/17/16 11:20 Dose: 500 mg Ceftriaxone Sodium (Rocephin 2gm Ivpb (Pre-Docked)) 2 gm IVPB DAILY [facility] PRN Reason: Protocol Diltiazem HCl (Cardizem Cd -) 120 mg PO DAILY [facility] Last Admin: 07/17/16 11:20 Dose: 120 mg Docusate Sodium (Colace -) 300 mg PO HS [facility] Last Admin: 07/16/16 22:22 Dose: 300 mg Duloxetine HCl (Cymbalta -) 60 mg PO DAILY [facility] Last Admin: 07/17/16 13:36 Dose: 60 mg Hydrochlorothiazide (Hctz -) 12.5 mg PO DAILY [facility] Last Admin: 07/17/16 11:20 Dose: 12.5 mg Insulin Aspart (Novolog Vial Sliding Scale -) 1 vial SQ ACHS [facility] PRN Reason: Protocol Last Admin: 07/17/16 11:45 Dose: Not Given Insulin Detemir (Levemir Vial) 15 units SQ HS [facility] Last Admin: 07/16/16 22:22 Dose: 15 units Levetiracetam (Keppra -) 500 mg PO BID [facility] Lisinopril (Prinivil) 20 mg PO DAILY [facility] Last Admin: 07/17/16 11:20 Dose: 20 mg Montelukast Sodium (Singulair -) 10 mg PO HS [facility] Nicotine (Nicoderm Patch -) 21 mg TD DAILY [facility] Last Admin: 07/17/16 11:20 Dose: 21 mg Oxycodone HCl (Roxicodone -) 5 mg PO Q6H PRN PRN Reason: PAIN Last Admin: 07/17/16 03:17 Dose: 5 mg Fluticasone/Salmeterol (Advair 100mcg/50mcg -) 1 puff IH BID [facility] Last Admin: 07/17/16 13:36 Dose: 1 inh Senna (Senna -) 1 tab PO BID [facility] Tramadol HCl (Ultram -) 50 mg PO Q6H PRN PRN Reason: PAIN Last Admin: 07/17/16 13:36 Dose: 50 mg Zolpidem Tartrate (Ambien -) 10 mg PO HS PRN Last Admin: 07/16/16 22:22 Dose: 10 mg a/p pneumonia copd continue rocephin/zithromax Day #4 clinically improving can change to po ceftin in am doing well will need f/u ct scan as outpt neurology eval pending Problem List - Problems (1) Pneumonia Code(s): J18.9 - PNEUMONIA, UNSPECIFIED ORGANISM (2) COPD exacerbation Code(s): J44.1 - CHRONIC OBSTRUCTIVE PULMONARY DISEASE W (ACUTE) EXACERBATION (3) Tobacco abuse Code(s): Z72.0 - TOBACCO USE
--- NOTE | 2016-07-17 14:12 | PN ---
Progress Note, Physician History of Present Illness: Pt seen and examined at bedside. She is awake and alert. She denies fevers or chills. - Current Medication List Current Medications: Active Medications Albuterol/Ipratropium (Duoneb -) 1 amp NEB QIDR [facility] Last Admin: 07/17/16 11:55 Dose: 1 amp Alprazolam (Xanax -) 1 mg PO TID [facility] Last Admin: 07/17/16 13:35 Dose: 1 mg Aspirin (Ecotrin -) 81 mg PO DAILY [facility] Azithromycin (Zithromax -) 500 mg PO DAILY [facility] Last Admin: 07/17/16 11:20 Dose: 500 mg Ceftriaxone Sodium (Rocephin 2gm Ivpb (Pre-Docked)) 2 gm IVPB DAILY [facility] PRN Reason: Protocol Diltiazem HCl (Cardizem Cd -) 120 mg PO DAILY [facility] Last Admin: 07/17/16 11:20 Dose: 120 mg Docusate Sodium (Colace -) 300 mg PO HS [facility] Last Admin: 07/16/16 22:22 Dose: 300 mg Duloxetine HCl (Cymbalta -) 60 mg PO DAILY [facility] Last Admin: 07/17/16 13:36 Dose: 60 mg Hydrochlorothiazide (Hctz -) 12.5 mg PO DAILY [facility] Last Admin: 07/17/16 11:20 Dose: 12.5 mg Insulin Aspart (Novolog Vial Sliding Scale -) 1 vial SQ ACHS [facility] PRN Reason: Protocol Last Admin: 07/17/16 11:45 Dose: Not Given Insulin Detemir (Levemir Vial) 15 units SQ HS [facility] Last Admin: 07/16/16 22:22 Dose: 15 units Levetiracetam (Keppra -) 500 mg PO BID [facility] Lisinopril (Prinivil) 20 mg PO DAILY [facility] Last Admin: 07/17/16 11:20 Dose: 20 mg Montelukast Sodium (Singulair -) 10 mg PO HS [facility] Nicotine (Nicoderm Patch -) 21 mg TD DAILY [facility] Last Admin: 07/17/16 11:20 Dose: 21 mg Oxycodone HCl (Roxicodone -) 5 mg PO Q6H PRN PRN Reason: PAIN Last Admin: 07/17/16 03:17 Dose: 5 mg Fluticasone/Salmeterol (Advair 100mcg/50mcg -) 1 puff IH BID [facility] Last Admin: 07/17/16 13:36 Dose: 1 inh Senna (Senna -) 1 tab PO BID [facility] Tramadol HCl (Ultram -) 50 mg PO Q6H PRN PRN Reason: PAIN Last Admin: 07/17/16 13:36 Dose: 50 mg Zolpidem Tartrate (Ambien -) 10 mg PO HS PRN Last Admin: 07/16/16 22:22 Dose: 10 mg - Objective Vital Signs: Vital Signs Temperature 97.8 F 07/17/16 09:00 Pulse Rate 70 07/17/16 09:00 Respiratory Rate 20 07/17/16 09:00 Blood Pressure 129/80 07/17/16 09:00 O2 Sat by Pulse Oximetry (%) 94 L 07/17/16 09:00 Constitutional: Yes: Anxious HENT: Yes: Atraumatic Cardiovascular: Yes: S1, S2 Respiratory: Yes: On Nasal O2, Wheezes Gastrointestinal: Yes: Soft, Abdomen, Obese Genitourinary: Yes: WNL Musculoskeletal: Yes: WNL Edema: Yes Edema: LLE: Trace, RLE: Trace Neurological: Yes: Oriented Psychiatric: Yes: Oriented Labs: CBC, BMP 07/17/16 05:35 07/17/16 09:30 INR, PTT INR 1.03 (0.82-1.09) 07/13/16 14:40 Problem List - Problems (1) CAD (coronary artery disease) Code(s): I25.10 - ATHSCL HEART DISEASE OF [place] CORONARY ARTERY W/O ANG PCTRS (2) COPD (chronic obstructive pulmonary disease) Code(s): J44.9 - CHRONIC OBSTRUCTIVE PULMONARY DISEASE, UNSPECIFIED Qualifiers : COPD type: chronic bronchitis Chronic bronchitis type: unspecified Qualified Code(s): J42 - Unspecified chronic bronchitis (3) Pyelonephritis Code(s): N12 - TUBULO-INTERSTITIAL NEPHRITIS, NOT SPCF ACUTE OR CHRONIC (4) UTI (urinary tract infection) Code(s): N39.0 - URINARY TRACT INFECTION, SITE NOT SPECIFIED (5) Hepatitis C Code(s): B19.20 - UNSPECIFIED VIRAL HEPATITIS C WITHOUT HEPATIC COMA (6) Sepsis Code(s): A41.9 - SEPSIS, UNSPECIFIED ORGANISM (7) Lactic acid acidosis Code(s): E87.2 - ACIDOSIS Assessment/Plan Current Medications Generic Name Dose Route Start Last Admin Trade Name Saw PRN Reason Stop Dose Admin Albuterol/Ipratropium 1 amp 07/15/16 11:30 07/17/16 11:55 Duoneb - NEB 1 amp QIDR [facility] Administration Alprazolam 1 mg 07/16/16 10:30 07/17/16 13:35 Xanax - PO 1 mg TID [facility] Administration Aspirin 81 mg 07/18/16 10:00 Ecotrin - PO DAILY [facility] Azithromycin 500 mg 07/16/16 10:00 07/17/16 11:20 Zithromax - PO 500 mg DAILY [facility] Administration Ceftriaxone Sodium 2 gm 07/18/16 10:00 Rocephin 2gm Ivpb (Pre-Docked) IVPB DAILY [facility] Protocol Diltiazem HCl 120 mg 07/16/16 14:30 07/17/16 11:20 Cardizem Cd - PO 120 mg DAILY [facility] Administration Docusate Sodium 300 mg 07/16/16 22:00 07/16/16 22:22 Colace - PO 300 mg HS [facility] Administration Duloxetine HCl 60 mg 07/17/16 12:30 07/17/16 13:36 Cymbalta - PO 60 mg DAILY [facility] Administration Hydrochlorothiazide 12.5 mg 07/16/16 14:30 07/17/16 11:20 Hctz - PO 12.5 mg DAILY [facility] Administration Insulin Aspart 1 vial 07/13/16 22:00 07/17/16 11:45 Novolog Vial Sliding Scale - SQ Not Given ACHS [facility] Protocol Insulin Detemir 15 units 07/16/16 22:00 07/16/16 22:22 Levemir Vial SQ 15 units HS [facility] Administration Levetiracetam 500 mg 07/17/16 22:00 Keppra - PO BID [facility] Lisinopril 20 mg 07/16/16 14:30 07/17/16 11:20 Prinivil PO 20 mg DAILY [facility] Administration Montelukast Sodium 10 mg 07/17/16 22:00 Singulair - PO HS [facility] Nicotine 21 mg 07/15/16 11:30 07/17/16 11:20 Nicoderm Patch - TD 21 mg DAILY [facility] Administration Oxycodone HCl 5 mg 07/16/16 07:56 07/17/16 03:17 Roxicodone - PO 5 mg Q6H PRN Administration PAIN Fluticasone/Salmeterol 1 puff 07/17/16 12:30 07/17/16 13:36 Advair 100mcg/50mcg - IH 1 inh BID [facility] Administration Senna 1 tab 07/17/16 22:00 Senna - PO BID [facility] Tramadol HCl 50 mg 07/17/16 11:23 07/17/16 13:36 Ultram - PO 50 mg Q6H PRN Administration PAIN Zolpidem Tartrate 10 mg 07/14/16 22:54 07/16/16 22:22 Ambien - PO 10 mg HS PRN Administration Laboratory Tests 07/17/16 09:30 Lactic Acid 3.996 H* Impression 1. sepsis 2. PNA 3. UTI 4. possible pyelo 5. COPD 6. Hep C 7. CAD 8. CHF Plan - lactic acid is elevated - check abg - will need better glucose control - steroids with taper as tolerated - monitor pulse ox on oxygen - will follow - am cxr Dr Post
--- NOTE | 2016-07-17 15:45 | PN ---
Progress Note (short form) - Note Progress Note: PULMONARY HAD RAPID RESPONSE SEIZURE THIS AM NOW FEELS TIRED VSS/AFEBRILE ANICTERIC SCATTERED RHONCHI WITH EXP WHEEZE S1S2 BS+ OBESE LESS EDEMA LABS/MEDS/NOTE/IMAGING/MICRO REVIEWED NODULAR INFILTRATES ON CT RIGHT GREATER THAN LEFT PNEUMONIA/COPD/BRONCHOSPASTIC COMPONENT MUTIPLE MEDICAL PROBLEMS OUTLINED SEIZURE DISORDER BRONCHODILATORS/O2/ SOLUMEDROL 40MG Q8/ANTIBIOTICS O2 TO KEEP SAT GREATER THAN 90% GLYCEMIC CONTROL/ANTIPYRETICS SHOULD HAVE NEURO EVAL AND BRAIN IMAGING STUDY ABG PENDING R ROXANN WILLIS Problem List - Problems (1) CAD (coronary artery disease) Code(s): I25.10 - ATHSCL HEART DISEASE OF [place] CORONARY ARTERY W/O ANG PCTRS (2) COPD (chronic obstructive pulmonary disease) Code(s): J44.9 - CHRONIC OBSTRUCTIVE PULMONARY DISEASE, UNSPECIFIED Qualifiers : COPD type: chronic bronchitis Chronic bronchitis type: unspecified Qualified Code(s): J42 - Unspecified chronic bronchitis (3) Hyperglycemia Code(s): R73.9 - HYPERGLYCEMIA, UNSPECIFIED (4) Hypertension Code(s): I10 - ESSENTIAL (PRIMARY) HYPERTENSION (5) Hypothyroidism Code(s): E03.9 - HYPOTHYROIDISM, UNSPECIFIED (6) Nicotine dependence Code(s): F17.200 - NICOTINE DEPENDENCE, UNSPECIFIED, UNCOMPLICATED (7) Seizure disorder Code(s): G40.909 - EPILEPSY, UNSP, NOT INTRACTABLE, WITHOUT STATUS EPILEPTICUS (8) Vitamin D deficiency Code(s): E55.9 - VITAMIN D DEFICIENCY, UNSPECIFIED (9) Pneumonia Code(s): J18.9 - PNEUMONIA, UNSPECIFIED ORGANISM
[2016-07-17 15:55] LABS: ALLENS TEST POSITIVE; ART PUNCT SITE RIGHT RADIAL; ARTERIAL BLD GAS O2 SATURATION 96.2 % (90-98.9); ARTERIAL BLOOD GAS BASE EXCESS 6.7 meq/l (-2-2); ARTERIAL BLOOD GAS HCO3 30.9 meq/L (22-26); ARTERIAL BLOOD GAS PO2 79.8 mmHg (80-100); LPM/O2% 2L; PT. ON O2? YES; TYPE OF O2 NASAL O2
[2016-07-17 15:56] LABS: ARTERIAL BLOOD GAS pH 7.47 (7.35-7.45)
--- NOTE | 2016-07-17 17:56 | PN ---
Progress Note, Physician Chief Complaint: AWAKE ALERT EVENTS AND CHART REVIEWED [place] RESTARTED - Current Medication List Current Medications: Active Medications Albuterol/Ipratropium (Duoneb -) 1 amp NEB QIDR [facility] Last Admin: 07/17/16 17:32 Dose: 1 amp Alprazolam (Xanax -) 1 mg PO TID [facility] Last Admin: 07/17/16 13:35 Dose: 1 mg Aspirin (Ecotrin -) 81 mg PO DAILY [facility] Azithromycin (Zithromax -) 500 mg PO DAILY [facility] Last Admin: 07/17/16 11:20 Dose: 500 mg Ceftriaxone Sodium (Rocephin 2gm Ivpb (Pre-Docked)) 2 gm IVPB DAILY [facility] PRN Reason: Protocol Diltiazem HCl (Cardizem Cd -) 120 mg PO DAILY [facility] Last Admin: 07/17/16 11:20 Dose: 120 mg Docusate Sodium (Colace -) 300 mg PO HS [facility] Last Admin: 07/16/16 22:22 Dose: 300 mg Duloxetine HCl (Cymbalta -) 60 mg PO DAILY [facility] Last Admin: 07/17/16 13:36 Dose: 60 mg Hydrochlorothiazide (Hctz -) 12.5 mg PO DAILY [facility] Last Admin: 07/17/16 11:20 Dose: 12.5 mg Insulin Aspart (Novolog Vial Sliding Scale -) 1 vial SQ ACHS [facility] PRN Reason: Protocol Last Admin: 07/17/16 16:53 Dose: 6 units Insulin Detemir (Levemir Vial) 15 units SQ HS [facility] Last Admin: 07/16/16 22:22 Dose: 15 units Levetiracetam (Keppra -) 500 mg PO BID [facility] Lisinopril (Prinivil) 20 mg PO DAILY [facility] Last Admin: 07/17/16 11:20 Dose: 20 mg Montelukast Sodium (Singulair -) 10 mg PO HS [facility] Nicotine (Nicoderm Patch -) 21 mg TD DAILY [facility] Last Admin: 07/17/16 11:20 Dose: 21 mg Oxycodone HCl (Roxicodone -) 5 mg PO Q6H PRN PRN Reason: PAIN Last Admin: 07/17/16 03:17 Dose: 5 mg Fluticasone/Salmeterol (Advair 100mcg/50mcg -) 1 puff IH BID [facility] Last Admin: 07/17/16 13:36 Dose: 1 inh Senna (Senna -) 1 tab PO BID [facility] Tramadol HCl (Ultram -) 50 mg PO Q6H PRN PRN Reason: PAIN Last Admin: 07/17/16 13:36 Dose: 50 mg Zolpidem Tartrate (Ambien -) 10 mg PO HS PRN Last Admin: 07/16/16 22:22 Dose: 10 mg - Objective Vital Signs: Vital Signs Temperature 98.2 F 07/17/16 14:09 Pulse Rate 81 07/17/16 14:09 Respiratory Rate 16 07/17/16 14:09 Blood Pressure 110/68 07/17/16 14:09 O2 Sat by Pulse Oximetry (%) 94 L 07/17/16 09:00 Constitutional: Yes: No Distress Eyes: Yes: WNL HENT: Yes: WNL Neck: Yes: WNL Cardiovascular: Yes: WNL Respiratory: Yes: Wheezes Gastrointestinal: Yes: WNL Genitourinary: Yes: WNL Musculoskeletal: Yes: WNL Extremities: Yes: WNL Edema: No Peripheral Pulses WNL: Yes Integumentary: Yes: WNL Wound/Incision: Yes: Clean/Dry Neurological: Yes: WNL ...Motor Strength: WNL Psychiatric: Yes: Agitated (LABILE ABOUT LOSING HER CAT), Other Labs: CBC, BMP 07/17/16 05:35 07/17/16 09:30 INR, PTT INR 1.03 (0.82-1.09) 07/13/16 14:40 Problem List - Problems (1) CAD (coronary artery disease) Code(s): I25.10 - ATHSCL HEART DISEASE OF [place] CORONARY ARTERY W/O ANG PCTRS (2) COPD (chronic obstructive pulmonary disease) Code(s): J44.9 - CHRONIC OBSTRUCTIVE PULMONARY DISEASE, UNSPECIFIED Qualifiers : COPD type: chronic bronchitis Chronic bronchitis type: unspecified Qualified Code(s): J42 - Unspecified chronic bronchitis (3) Chest pain at rest Code(s): R07.9 - CHEST PAIN, UNSPECIFIED (4) Dysarthria Code(s): R47.1 - DYSARTHRIA AND ANARTHRIA (5) Elevated liver enzymes Code(s): R74.8 - ABNORMAL LEVELS OF OTHER SERUM ENZYMES (6) Hyperglycemia Code(s): R73.9 - HYPERGLYCEMIA, UNSPECIFIED (7) Lactic acid acidosis Code(s): E87.2 - ACIDOSIS (8) Sepsis Code(s): A41.9 - SEPSIS, UNSPECIFIED ORGANISM (9) Severe sepsis Code(s): A41.9 - SEPSIS, UNSPECIFIED ORGANISM R65.20 - SEVERE SEPSIS WITHOUT SEPTIC SHOCK (10) Tobacco abuse Code(s): Z72.0 - TOBACCO USE (11) COPD exacerbation Code(s): J44.1 - CHRONIC OBSTRUCTIVE PULMONARY DISEASE W (ACUTE) EXACERBATION (12) Hypertension associated with diabetes Code(s): E11.59 - TYPE 2 DIABETES MELLITUS WITH OTH CIRCULATORY COMPLICATIONS I10 - ESSENTIAL (PRIMARY) HYPERTENSION (13) Pyelonephritis Code(s): N12 - TUBULO-INTERSTITIAL NEPHRITIS, NOT SPCF ACUTE OR CHRONIC (14) UTI (urinary tract infection) Code(s): N39.0 - URINARY TRACT INFECTION, SITE NOT SPECIFIED (15) Asthma Code(s): J45.909 - UNSPECIFIED ASTHMA, UNCOMPLICATED (16) Benzodiazepine dependence Code(s): F13.20 - SEDATIVE, HYPNOTIC OR ANXIOLYTIC DEPENDENCE, UNCOMPLICATED (17) Bipolar II disorder Code(s): F31.81 - BIPOLAR II DISORDER (18) Hepatitis C Code(s): B19.20 - UNSPECIFIED VIRAL HEPATITIS C WITHOUT HEPATIC COMA (19) Hypertension Code(s): I10 - ESSENTIAL (PRIMARY) HYPERTENSION (20) Nicotine dependence Code(s): F17.200 - NICOTINE DEPENDENCE, UNSPECIFIED, UNCOMPLICATED (21) Opioid dependence Code(s): F11.20 - OPIOID DEPENDENCE, UNCOMPLICATED (22) Seizure disorder Code(s): G40.909 - EPILEPSY, UNSP, NOT INTRACTABLE, WITHOUT STATUS EPILEPTICUS Assessment/Plan RAPID RESPONSE CALLED AND I REVIEWED THE CASE WITH THE PATIENT SHE DID NOT HAVE A CLOIC SEIZURE, MORE OF A SILENT/STARE SEIZURE. I CANCELED THE CT SCAN OF THE BRAIN BECAUSE PATIENT IS WIDE AWAKE/ALERT AT THIS TIME WITHOUT ANY DEFICITS. PATIENT HAVING FULL CONVERSATIONS WITH ME AND THE NURSE. PATIENT IS VERY UPSET ABOUT LOSING HER CAT. KEPPRA RESTARTED HYPERGLYCEMIA, I STOPPED SOLUMEDROL, STARTED PREDNISONE 20MG DAILY NEBS INSULIN, ENDOCRINE CONSULT NIURKA RESTARTED HOME NURSE SERVICE.
--- NOTE | 2016-07-17 17:58 | CONSULT ---
Consult - text type - Consultation Consultation Note: NEUROLOGY CONSULTATION is greatly appreciated: Events reviewed and discussed with medical equipment repair technician. This 56 yo RH woman with multiple medical problems including HTN, Hep C, Chol, DM, Bipolar/depressed, gives h/o seizures x 3 years sinc e head trauma. She describes staring spells and speech arrest +/- "shaking." Patient claims amnesia for events and "afterwards." Chronic LBP radiating into both legs, interrupts sleep, and persists after LS laminectomy 3 years ago. On Keppra 500 BID which "controls the seizures." Also on alprazolam 1 mg TID. Admitted for congestion/pneumonia. Off levetiracetam x 3 days. Today had staring spell with unresponsiveness witnessed by staff. Levetiracetam restarted with IV bolus. Pt now awake and well-oriented, VENKATESH: No bruits. Normocephalic, - SLR. Well-healed LS laminectomy. NEURO: MS/Speech: Normal CN II-XII normal without nystagmus. Motor: No drift or tremor. Normal reflexes. Downgoing toes. Coord: No FTN dystaxia. Sensory: Normal. Romberg neg. Gait: Sl shuffle, but stable. IMP: Normal neurological exam. Complex partial seizures with and without secondary generalization, Suggest: Continue current regimen. Continue Levetiracetam 500 mg PO BID. Neuro f/u, EEG as out patient. Thank you very much, Ike Chavis MD
[2016-07-17] MEDS: SENNOSIDES 8.6MG TABLET (FP) PO SCH (21:43)
[2016-07-17] MEDS: levETIRAcetam 500 MG TABLET (FP) PO SCH (21:43)
[2016-07-17] MEDS: MONTELUKAST NA 10 MG TABLET PO SCH (21:43)
[2016-07-17] MEDS: DOCUSATE SODIUM 100 MG CAPSULE (FP) PO SCH (21:43)
[2016-07-17] MEDS: INSULIN DETEMIR 100 UNITS/ML MDV SQ SCH (21:44)
[2016-07-17] MEDS: ZOLPIDEM TARTRATE 5 MG TABLET PO PRN (21:48)
[2016-07-17] MEDS ORDERED: levETIRAcetam 500 MG TABLET (FP) PO SCH (22:00)
[2016-07-18] MEDS: ALBUTEROL SO4 2.5/IPRATROPIUM 0.5 INH SOL 3 ML VIAL.NEB. NEB SCH ×5 (00:36→23:15)
[2016-07-18] MEDS: traMADol HCL 50 MG TABLET PO PRN ×2 (02:31→21:12)
[2016-07-18] MEDS: ALPRAZolam 0.25 MG TABLET PO SCH ×3 (06:27→21:13)
[2016-07-18] MEDS: INSULIN SLIDING SCALE (NOVOLOG) 1 VIAL SQ SCH ×4 (06:28→21:16)
[2016-07-18 08:21] LABS: CALCIUM 9.2 mg/dL (8.5-10.1)
[2016-07-18 08:25] LABS: COCKROFT - GAULT 163.7015; CREATININE 0.6 mg/dL (0.55-1.02)
[2016-07-18] MEDS: PRAMIPEXOLE DIHYDROCHLORIDE 0.125 MG TABLET PO SCH (09:00)
--- NOTE | 2016-07-18 09:21 | PN ---
Progress Note, Physician - Current Medication List Current Medications: Active Medications Albuterol/Ipratropium (Duoneb -) 1 amp NEB QIDR [facility] Last Admin: 07/18/16 06:20 Dose: 1 amp Alprazolam (Xanax -) 1 mg PO TID [facility] Last Admin: 07/18/16 06:27 Dose: 1 mg Aspirin (Ecotrin -) 81 mg PO DAILY [facility] Azithromycin (Zithromax -) 500 mg PO DAILY [facility] Last Admin: 07/17/16 11:20 Dose: 500 mg Ceftriaxone Sodium (Rocephin 2gm Ivpb (Pre-Docked)) 2 gm IVPB DAILY [facility] PRN Reason: Protocol Diltiazem HCl (Cardizem Cd -) 120 mg PO DAILY [facility] Last Admin: 07/17/16 11:20 Dose: 120 mg Docusate Sodium (Colace -) 300 mg PO [facility] Last Admin: 07/17/16 21:43 Dose: 300 mg Duloxetine HCl (Cymbalta -) 60 mg PO DAILY [facility] Last Admin: 07/17/16 13:36 Dose: 60 mg Hydrochlorothiazide (Hctz -) 12.5 mg PO DAILY [facility] Last Admin: 07/17/16 11:20 Dose: 12.5 mg Insulin Aspart (Novolog Vial Sliding Scale -) 1 vial SQ [facility] PRN Reason: Protocol Last Admin: 07/18/16 06:28 Dose: 8 units Insulin Detemir (Levemir Vial) 15 units SQ HS [facility] Last Admin: 07/17/16 21:44 Dose: 15 units Levetiracetam (Keppra -) 500 mg PO BID [facility] Last Admin: 07/17/16 21:43 Dose: 500 mg Lisinopril (Prinivil) 20 mg PO DAILY [facility] Last Admin: 07/17/16 11:20 Dose: 20 mg Montelukast Sodium (Singulair -) 10 mg PO HS [facility] Last Admin: 07/17/16 21:43 Dose: 10 mg Nicotine (Nicoderm Patch -) 21 mg TD DAILY [facility] Last Admin: 07/17/16 11:20 Dose: 21 mg Oxycodone HCl (Roxicodone -) 5 mg PO Q6H PRN PRN Reason: PAIN Last Admin: 07/17/16 23:54 Dose: 5 mg Prednisone (Deltasone -) 20 mg PO DAILY [facility] Fluticasone/Salmeterol (Advair 100mcg/50mcg -) 1 puff IH BID [facility] Last Admin: 07/17/16 21:44 Dose: 1 inh Senna (Senna -) 1 tab PO BID [facility] Last Admin: 07/17/16 21:43 Dose: 1 tab Tramadol HCl (Ultram -) 50 mg PO Q6H PRN PRN Reason: PAIN Last Admin: 07/18/16 02:31 Dose: 50 mg Zolpidem Tartrate (Ambien -) 10 mg PO HS PRN Last Admin: 07/17/16 21:48 Dose: 10 mg - Objective Vital Signs: Vital Signs Temperature 98.6 F 07/18/16 06:00 Pulse Rate 72 07/18/16 06:00 Respiratory Rate 18 07/18/16 06:00 Blood Pressure 137/76 07/18/16 06:00 O2 Sat by Pulse Oximetry (%) 93 L 07/17/16 20:52 Labs: CBC, BMP 07/17/16 05:35 07/18/16 06:30 INR, PTT INR 1.03 (0.82-1.09) 07/13/16 14:40 Assessment/Plan (1) CAD (coronary artery disease) Code(s): I25.10 - ATHSCL HEART DISEASE OF [place] CORONARY ARTERY W/O ANG PCTRS (2) COPD (chronic obstructive pulmonary disease) Code(s): J44.9 - CHRONIC OBSTRUCTIVE PULMONARY DISEASE, UNSPECIFIED Qualifiers : COPD type: chronic bronchitis Chronic bronchitis type: unspecified Qualified Code(s): J42 - Unspecified chronic bronchitis (3) Chest pain at rest Code(s): R07.9 - CHEST PAIN, UNSPECIFIED (4) Dysarthria Code(s): R47.1 - DYSARTHRIA AND ANARTHRIA (5) Elevated liver enzymes Code(s): R74.8 - ABNORMAL LEVELS OF OTHER SERUM ENZYMES (6) Hyperglycemia Code(s): R73.9 - HYPERGLYCEMIA, UNSPECIFIED (7) Lactic acid acidosis Code(s): E87.2 - ACIDOSIS (8) Sepsis Code(s): A41.9 - SEPSIS, UNSPECIFIED ORGANISM (9) Severe sepsis Code(s): A41.9 - SEPSIS, UNSPECIFIED ORGANISM R65.20 - SEVERE SEPSIS WITHOUT SEPTIC SHOCK (10) Tobacco abuse Code(s): Z72.0 - TOBACCO USE (11) COPD exacerbation Code(s): J44.1 - CHRONIC OBSTRUCTIVE PULMONARY DISEASE W (ACUTE) EXACERBATION (12) Hypertension associated with diabetes Code(s): E11.59 - TYPE 2 DIABETES MELLITUS WITH OTH CIRCULATORY COMPLICATIONS I10 - ESSENTIAL (PRIMARY) HYPERTENSION (13) Pyelonephritis Code(s): N12 - TUBULO-INTERSTITIAL NEPHRITIS, NOT SPCF ACUTE OR CHRONIC (14) UTI (urinary tract infection) Code(s): N39.0 - URINARY TRACT INFECTION, SITE NOT SPECIFIED (15) Asthma Code(s): J45.909 - UNSPECIFIED ASTHMA, UNCOMPLICATED (16) Benzodiazepine dependence Code(s): F13.20 - SEDATIVE, HYPNOTIC OR ANXIOLYTIC DEPENDENCE, UNCOMPLICATED (17) Bipolar II disorder Code(s): F31.81 - BIPOLAR II DISORDER (18) Hepatitis C Code(s): B19.20 - UNSPECIFIED VIRAL HEPATITIS C WITHOUT HEPATIC COMA (19) Hypertension Code(s): I10 - ESSENTIAL (PRIMARY) HYPERTENSION (20) Nicotine dependence Code(s): F17.200 - NICOTINE DEPENDENCE, UNSPECIFIED, UNCOMPLICATED (21) Opioid dependence Code(s): F11.20 - OPIOID DEPENDENCE, UNCOMPLICATED (22) Seizure disorder Code(s): G40.909 - EPILEPSY, UNSP, NOT INTRACTABLE, WITHOUT STATUS EPILEPTICUS Assessment/Plan S/P SEIZURE APPRECIATE NEURO CONSULT PATIENT IS VERY UPSET ABOUT LOSING HER CAT. KENNEKARA RESTARTED HYPERGLYCEMIA, STOPPED SOLUMEDROL, STARTED PREDNISONE 20MG DAILY INSULIN INCREASED IVF NEBS INSULIN, ENDOCRINE CONSULT NIURKA RESTARTED HOME NURSE SERVICE. PNEUMONIA/COPD/BRONCHOSPASTIC COMPONENT OPEN HEARTH MELTER PEYTON
[2016-07-18] MEDS ORDERED: INSULIN DETEMIR 100 UNITS/ML MDV SQ SCH ×3 (09:24→22:00)
[2016-07-18] MEDS ORDERED: SODIUM CHLORIDE 500 ML IV STA (09:26)
[2016-07-18] MEDS ORDERED: PT OWN MED DRAWER 7, Y5N ONE ×2 (09:33→22:08)
[2016-07-18] MEDS: FLUTICASONE/SALMETEROL 100 MCG/50 MCG DISKUS IH SCH ×2 (09:34→22:09)
[2016-07-18] MEDS: NICOTINE 21 MG/24 HOURS TOPICAL PATCH TD SCH (09:35)
[2016-07-18] MEDS: oxyCODONE HCL 5 MG TABLET PO PRN ×2 (09:36→18:18)
[2016-07-18] MEDS: ASPIRIN COATED 81 MG TABLET.EC PO SCH (09:36)
[2016-07-18] MEDS: levETIRAcetam 500 MG TABLET (FP) PO SCH ×2 (09:38→21:14)
[2016-07-18] MEDS: LISINOPRIL 20 MG TABLET (FP) PO SCH (09:38)
[2016-07-18] MEDS: DULoxetine HCL 30 MG CAPSULE.DR (FP) PO SCH (09:38)
[2016-07-18] MEDS: HYDROCHLOROTHIAZIDE 12.5 MG CAPSULE (FP) PO SCH (09:39)
[2016-07-18] MEDS: SENNOSIDES 8.6MG TABLET (FP) PO SCH ×2 (09:39→21:14)
[2016-07-18] MEDS: AZITHROMYCIN 250 MG TABLET (FP) PO SCH (09:40)
[2016-07-18] MEDS: cefTRIAXone 2 GM/100 ML BAG (PRE-DOCKED) IVPB SCH (09:40)
[2016-07-18] MEDS ORDERED: predniSONE 20 MG TABLET (UD) PO SCH (10:00)
--- NOTE | 2016-07-18 11:33 | PN ---
Progress Note (short form) - Note Progress Note: PULMONARY VSS/AFEBRILE ANICTERIC SCATTERED RHONCHI WITH EXP WHEEZE S1S2 BS+ OBESE LESS EDEMA LABS/MEDS/NOTE/IMAGING/MICRO/ABG REVIEWED NODULAR INFILTRATES ON CT RIGHT GREATER THAN LEFT PNEUMONIA/COPD/BRONCHOSPASTIC COMPONENT MUTIPLE MEDICAL PROBLEMS OUTLINED SEIZURE DISORDER BRONCHODILATORS/O2/ PREDNISONE/ANTIBIOTICS O2 TO KEEP SAT GREATER THAN 90% GLYCEMIC CONTROL/ANTIPYRETICS PRN REPEAT OUTPATIENT CT CHEST Carey HACKETT MD Problem List - Problems (1) CAD (coronary artery disease) Code(s): I25.10 - ATHSCL HEART DISEASE OF [place] CORONARY ARTERY W/O ANG PCTRS (2) COPD (chronic obstructive pulmonary disease) Code(s): J44.9 - CHRONIC OBSTRUCTIVE PULMONARY DISEASE, UNSPECIFIED Qualifiers : COPD type: chronic bronchitis Chronic bronchitis type: unspecified Qualified Code(s): J42 - Unspecified chronic bronchitis (3) Hyperglycemia Code(s): R73.9 - HYPERGLYCEMIA, UNSPECIFIED (4) Hypertension Code(s): I10 - ESSENTIAL (PRIMARY) HYPERTENSION (5) Hypothyroidism Code(s): E03.9 - HYPOTHYROIDISM, UNSPECIFIED (6) Nicotine dependence Code(s): F17.200 - NICOTINE DEPENDENCE, UNSPECIFIED, UNCOMPLICATED (7) Seizure disorder Code(s): G40.909 - EPILEPSY, UNSP, NOT INTRACTABLE, WITHOUT STATUS EPILEPTICUS (8) Vitamin D deficiency Code(s): E55.9 - VITAMIN D DEFICIENCY, UNSPECIFIED (9) Pneumonia Code(s): J18.9 - PNEUMONIA, UNSPECIFIED ORGANISM
[2016-07-18] MEDS: SODIUM CHLORIDE 0.45% 1,000 ML IV SCH ×2 (11:47→22:45)
[2016-07-18] MEDS ORDERED: INSULIN (NOVOLOG) ASPART 100 UNITS/ML 10ML VIAL ONE (11:51)
--- NOTE | 2016-07-18 18:40 | PN ---
Progress Note (short form) - Note Progress Note: NEUROLOGY FOLLOW-UP: Patient continues to c/o severe throbbing pains, diffusely, in both legs when sitting still and laying in bed. Disrupts sleep. Improved by walking (after first few steps). No seizures. No headaches. Exam unchanged. IMP: Seizure disorder. Restless legs syndrome. Suggest: Continue keppra 500 mg BID Try pramipexole 0.125 mg qHS x 2 days then 0.25 mg qHS. Thank you, Ike Chavis MD
[2016-07-18] MEDS: DOCUSATE SODIUM 100 MG CAPSULE (FP) PO SCH (21:12)
[2016-07-18] MEDS: MONTELUKAST NA 10 MG TABLET PO SCH (21:14)
--- NOTE | 2016-07-19 00:27 | CONSULT ---
Consult Consult Specialty:: endocrine Referred by:: dr.rabadi rodríguez Reason for Consultation:: iddm uncontrolled - History of Present Illness Chief Complaint: difficulty controlling sugar and weight History of Present Illness: 55 year old female with pmhx of HTN, hyperlipidemia, CAD, CHF, COPD, DM, Hep C, epilepsy, Bipolar and nephrolithiasis who presents to the ER with shortness of breath. She was found to be tachycardic and to have a fever. weakness,weight gain,easy tired diet noncompliant. - History Source History Provided By: Patient - Past Medical History [employer]: Yes: Seizure. No: Alzheimer's Cardio/Vascular: Yes: CAD, HTN. No: AFIB Pulmonary: Yes: COPD Gastrointestinal: No: Ascites Hepatobiliary: Yes: Hepatitis C (from a blood transfusion) ...: No Psych: Yes: Bipolar Endocrine: Yes: Diabetes Mellitus - Past Surgical History Past Surgical History: Yes: Hysterectomy, Colonoscopy - Alcohol/Substance Use Hx Alcohol Use: No History of Substance Use: reports: Cocaine - Smoking History Smoking history: Current every day smoker Have you smoked in the past 12 months: Yes Aproximately how many cigarettes per day: 20 - Social History Occupation: disabled History of Recent Travel: No Home Medications - Allergies Allergies/Adverse Reactions: Allergies Allergy/AdvReac Type Severity Reaction Status Date / Time No Known Allergies Allergy Verified 07/13/16 12:50 - Home Medications Home Medications: Ambulatory Orders Albuterol Sulfate Inhaler - [Ventolin HFA Inhaler -] 2 inh PO Q4H PRN 11/06/14 Aspirin [[place] Aspirin] 81 mg PO DAILY 11/06/14 Gabapentin 300 mg PO TID 11/06/14 Hydroxyzine HCl 50 mg PO DAILY 11/06/14 Lisinopril/Hydrochlorothiazide [Lisinopril-Hctz 20-12.5 mg Tab] 1 each PO DAILY 11/06/14 Salmeterol/Fluticasone [Advair 100Mcg/50Mcg -] 1 inh PO BID 11/06/14 Sennosides [Senokot] 1 tab PO DAILY PRN 11/13/14 Diltiazem HCl [Diltiazem 24Hr Cd] 120 mg PO DAILY 12/21/14 Duloxetine HCl 60 mg PO DAILY 12/21/14 Famotidine [Pepcid -] 40 mg PO DAILY 12/21/14 Insulin Glargine,Hum.rec.anlog [Lantus (10mL VIAL) -] 70 units SQ AM 12/21/14 Insulin Lispro [Humalog] 0 unit SQ ASDIR PRN 12/21/14 Levetiracetam [Keppra] 500 mg PO BID 12/21/14 Montelukast Na [Singulair -] 10 mg PO DAILY PRN 12/21/14 Olmesartan Medoxomil [Benicar -] 20 mg PO DAILY 12/21/14 Tiotropium [place] [Spiriva] 18 mcg IH DAILY 12/21/14 Zolpidem Tartrate [Ambien] 10 mg PO DAILY 12/21/14 Alprazolam [Xanax] 1 mg PO TID 07/13/16 Tramadol HCl 100 mg PO TID 07/13/16 Family Disease History - Family Disease History Family Disease History: Diabetes: Mother, Heart Disease: Father, Brother, Sister , Respiratory: Father, Other: Father, Brother, Sister Review of Systems - Review of Systems Constitutional: reports: Weakness Eyes: reports: Blurred Vision HENT: reports: No Symptoms Neck: reports: Swollen Glands Cardiovascular: reports: Palpitations, Shortness of Breath Respiratory: reports: Exercise Intolerance, SOB, SOB on Exertion Gastrointestinal: reports: No Symptoms Genitourinary: reports: No Symptoms Breasts: reports: No Symptoms Reported Integumentary: reports: No Symptoms Neurological: reports: Weakness Endocrine: reports: Unexplained Weight Gain Physical Exam Vital Signs: Vital Signs Temperature 98.4 F 07/18/16 21:00 Pulse Rate 81 07/18/16 21:00 Respiratory Rate 18 07/18/16 21:00 Blood Pressure 162/96 07/18/16 21:00 O2 Sat by Pulse Oximetry (%) 92 L 07/18/16 21:00 Constitutional: Yes: Calm Eyes: Yes: EOM Intact HENT: Yes: Normocephalic Neck: Yes: Trachea Midline Cardiovascular: Yes: Regular Rate and Rhythm Respiratory: Yes: Regular Gastrointestinal: Yes: WNL ...Rectal Exam: Yes: Deferred Renal/: Yes: WNL Musculoskeletal: Yes: WNL Edema: No Peripheral Pulses WNL: Yes Integumentary: Yes: WNL Neurological: Yes: WNL, Alert, Oriented Labs: CBC, BMP 04/07/17 05:35 07/18/16 06:30 Problem List - Problems (1) COPD (chronic obstructive pulmonary disease) Code(s): J44.9 - CHRONIC OBSTRUCTIVE PULMONARY DISEASE, UNSPECIFIED Qualifiers : COPD type: chronic bronchitis Chronic bronchitis type: unspecified Qualified Code(s): J42 - Unspecified chronic bronchitis (2) Elevated liver enzymes Code(s): R74.8 - ABNORMAL LEVELS OF OTHER SERUM ENZYMES (3) Hyperglycemia Code(s): R73.9 - HYPERGLYCEMIA, UNSPECIFIED Assessment/Plan Current Active Problems CAD (coronary artery disease) (Acute) COPD (chronic obstructive pulmonary disease) (Acute) Chest pain at rest (Acute) Cocaine abuse (Acute) Dysarthria (Acute) Elevated liver enzymes (Acute) Hyperglycemia (Acute) Lactic acid acidosis (Acute) Pneumonia (Acute) Sepsis (Acute) Severe sepsis (Acute) Tobacco abuse (Acute) Abnormal Lab Results Laboratory Results - last 24 hr 07/17/16 07/18/16 07/18/16 09:30 06:25 06:30 Sodium 132 L Potassium 3.9 Chloride 89 L Carbon Dioxide 32 Anion Gap 11 BUN 21 H D Creatinine 0.6 D POC Glucometer 388 Random Glucose 340 H* Lactic Acid Calcium 9.2 Prolactin 13.8 07/18/16 07/18/16 07/18/16 06:30 11:49 17:51 Sodium Potassium Chloride Carbon Dioxide Anion Gap BUN Creatinine POC Glucometer 328 325 Random Glucose Lactic Acid 2.257 H* Calcium Prolactin 07/18/16 07/18/16 20:55 21:30 Sodium Potassium Chloride Carbon Dioxide Anion Gap BUN Creatinine POC Glucometer 357 Random Glucose Lactic Acid 2.089 H* Calcium Prolactin Abnormal Lab Results 07/18/16 07/18/16 07/18/16 06:30 06:30 21:30 Sodium 132 L Chloride 89 L BUN 21 H D Random Glucose 340 H* Lactic Acid 2.257 H* 2.089 H* plan: Current Medications bgm qid novolog insulin coverage novolog 70/30 bid 25 units bid ck tsh free t4 ck hb a1c diet consult
[2016-07-19] MEDS: traMADol HCL 50 MG TABLET PO PRN ×3 (04:45→22:10)
[2016-07-19] MEDS: INSULIN (NOVOLOG MIX 70/30) 100 UNITS/ML MDV SQ SCH ×2 (06:12→16:50)
[2016-07-19] MEDS: INSULIN SLIDING SCALE (NOVOLOG) 1 VIAL SQ SCH ×4 (06:14→22:14)
[2016-07-19] MEDS: ALBUTEROL SO4 2.5/IPRATROPIUM 0.5 INH SOL 3 ML VIAL.NEB. NEB SCH ×4 (06:15→23:14)
[2016-07-19] MEDS: ALPRAZolam 0.25 MG TABLET PO SCH ×3 (06:17→22:08)
[2016-07-19 07:41] LABS: BASOPHIL 0.1 % (0-2.0); EOSINOPHIL 0.7 % (0-4.5); MCH 30.1 pg (25.7-33.7); MCHC 33.7 g/dl (32.0-36.0); MEAN CELL VOLUME 89.2 fl (80-96); MEAN PLT VOLUME 8.7 fl (7.5-11.1); NEUTROPHILS 57.3 % (42.8-82.8); PLATELET COUNT 284 K/MM3 (134-434); RDW 13.2 % (11.6-15.6); WHITE BLOOD COUNT 11.7 K/mm3 (4.0-10.0)
--- NOTE | 2016-07-19 08:02 | PN ---
Progress Note, Physician Chief Complaint: SITTING AT BEDSIDE - Current Medication List Current Medications: Active Medications Albuterol/Ipratropium (Duoneb -) 1 amp NEB QIDR [facility] Last Admin: 07/19/16 06:15 Dose: 1 amp Alprazolam (Xanax -) 1 mg PO TID [facility] Last Admin: 07/19/16 06:17 Dose: Not Given Aspirin (Ecotrin -) 81 mg PO DAILY [facility] Last Admin: 07/18/16 09:36 Dose: 81 mg Azithromycin (Zithromax -) 500 mg PO DAILY [facility] Last Admin: 07/18/16 09:40 Dose: 500 mg Ceftriaxone Sodium (Rocephin 2gm Ivpb (Pre-Docked)) 2 gm IVPB DAILY [facility] PRN Reason: Protocol Last Admin: 07/18/16 09:40 Dose: 2 gm Diltiazem HCl (Cardizem Cd -) 120 mg PO DAILY [facility] Last Admin: 07/18/16 09:39 Dose: 120 mg Docusate Sodium (Colace -) 300 mg PO HS [facility] Last Admin: 07/18/16 21:12 Dose: 300 mg Duloxetine HCl (Cymbalta -) 60 mg PO DAILY [facility] Last Admin: 07/18/16 09:38 Dose: 60 mg Hydrochlorothiazide (Hctz -) 12.5 mg PO DAILY [facility] Last Admin: 07/18/16 09:39 Dose: 12.5 mg Sodium Chloride (1/2 Normal Saline) 1,000 mls @ 100 mls/hr IV ASDIR [facility] Last Admin: 07/18/16 22:45 Dose: 100 mls/hr Insulin Aspart (Novolog Mix 70/30 Vial) 25 units SQ BIDAC [facility] Last Admin: 07/19/16 06:12 Dose: 25 units Insulin Aspart (Novolog Vial Sliding Scale -) 1 vial SQ ACHS [facility] PRN Reason: Protocol Last Admin: 07/19/16 06:14 Dose: 9 units Levetiracetam (Keppra -) 500 mg PO BID [facility] Last Admin: 07/18/16 21:14 Dose: 500 mg Lisinopril (Prinivil) 20 mg PO DAILY [facility] Last Admin: 07/18/16 09:38 Dose: 20 mg Montelukast Sodium (Singulair -) 10 mg PO HS [facility] Last Admin: 07/18/16 21:14 Dose: 10 mg Nicotine (Nicoderm Patch -) 21 mg TD DAILY [facility] Last Admin: 07/18/16 09:35 Dose: 21 mg Oxycodone HCl (Roxicodone -) 5 mg PO Q6H PRN PRN Reason: PAIN Last Admin: 07/18/16 18:18 Dose: 5 mg Pramipexole Dihydrochloride (Mirapex -) 0.125 mg PO HS@20 [facility] Last Admin: 07/18/16 09:00 Dose: 0.125 mg Prednisone (Deltasone -) 20 mg PO DAILY [facility] Last Admin: 07/18/16 09:38 Dose: 20 mg Fluticasone/Salmeterol (Advair 100mcg/50mcg -) 1 puff IH BID [facility] Last Admin: 07/18/16 22:09 Dose: 1 inh Senna (Senna -) 1 tab PO BID [facility] Last Admin: 07/18/16 21:14 Dose: 1 tab Tramadol HCl (Ultram -) 50 mg PO Q6H PRN PRN Reason: PAIN Last Admin: 07/19/16 04:45 Dose: 50 mg Zolpidem Tartrate (Ambien -) 10 mg PO HS PRN Last Admin: 07/17/16 21:48 Dose: 10 mg - Objective Vital Signs: Vital Signs Temperature 97.9 F 07/19/16 06:00 Pulse Rate 69 07/19/16 06:00 Respiratory Rate 18 07/19/16 06:00 Blood Pressure 132/90 07/19/16 06:00 O2 Sat by Pulse Oximetry (%) 92 L 07/18/16 21:00 Constitutional: Yes: Calm Neck: Yes: WNL Cardiovascular: Yes: WNL Respiratory: Yes: Wheezes Gastrointestinal: Yes: WNL Edema: Yes Labs: INR, PTT INR 1.03 (0.82-1.09) 07/13/16 14:40 Problem List - Problems (1) CAD (coronary artery disease) Code(s): I25.10 - ATHSCL HEART DISEASE OF [place] CORONARY ARTERY W/O ANG PCTRS (2) COPD (chronic obstructive pulmonary disease) Code(s): J44.9 - CHRONIC OBSTRUCTIVE PULMONARY DISEASE, UNSPECIFIED Qualifiers : COPD type: chronic bronchitis Chronic bronchitis type: unspecified Qualified Code(s): J42 - Unspecified chronic bronchitis (3) Hyperglycemia Code(s): R73.9 - HYPERGLYCEMIA, UNSPECIFIED (4) Hypertension associated with diabetes Code(s): E11.59 - TYPE 2 DIABETES MELLITUS WITH OTH CIRCULATORY COMPLICATIONS I10 - ESSENTIAL (PRIMARY) HYPERTENSION (5) Bipolar II disorder Code(s): F31.81 - BIPOLAR II DISORDER (6) Hypertension Code(s): I10 - ESSENTIAL (PRIMARY) HYPERTENSION (7) Hypothyroidism Code(s): E03.9 - HYPOTHYROIDISM, UNSPECIFIED (8) Seizure disorder Code(s): G40.909 - EPILEPSY, UNSP, NOT INTRACTABLE, WITHOUT STATUS EPILEPTICUS Assessment/Plan (1) CAD (coronary artery disease) Code(s): I25.10 - ATHSCL HEART DISEASE OF [place] CORONARY ARTERY W/O ANG PCTRS (2) COPD (chronic obstructive pulmonary disease) Code(s): J44.9 - CHRONIC OBSTRUCTIVE PULMONARY DISEASE, UNSPECIFIED Qualifiers : COPD type: chronic bronchitis Chronic bronchitis type: unspecified Qualified Code(s): J42 - Unspecified chronic bronchitis (3) Chest pain at rest Code(s): R07.9 - CHEST PAIN, UNSPECIFIED (4) Dysarthria Code(s): R47.1 - DYSARTHRIA AND ANARTHRIA (5) Elevated liver enzymes Code(s): R74.8 - ABNORMAL LEVELS OF OTHER SERUM ENZYMES (6) Hyperglycemia Code(s): R73.9 - HYPERGLYCEMIA, UNSPECIFIED (7) Lactic acid acidosis Code(s): E87.2 - ACIDOSIS (8) Sepsis Code(s): A41.9 - SEPSIS, UNSPECIFIED ORGANISM (9) Severe sepsis Code(s): A41.9 - SEPSIS, UNSPECIFIED ORGANISM R65.20 - SEVERE SEPSIS WITHOUT SEPTIC SHOCK (10) Tobacco abuse Code(s): Z72.0 - TOBACCO USE (11) COPD exacerbation Code(s): J44.1 - CHRONIC OBSTRUCTIVE PULMONARY DISEASE W (ACUTE) EXACERBATION (12) Hypertension associated with diabetes Code(s): E11.59 - TYPE 2 DIABETES MELLITUS WITH OTH CIRCULATORY COMPLICATIONS I10 - ESSENTIAL (PRIMARY) HYPERTENSION (13) Pyelonephritis Code(s): N12 - TUBULO-INTERSTITIAL NEPHRITIS, NOT SPCF ACUTE OR CHRONIC (14) UTI (urinary tract infection) Code(s): N39.0 - URINARY TRACT INFECTION, SITE NOT SPECIFIED (15) Asthma Code(s): J45.909 - UNSPECIFIED ASTHMA, UNCOMPLICATED (16) Benzodiazepine dependence Code(s): F13.20 - SEDATIVE, HYPNOTIC OR ANXIOLYTIC DEPENDENCE, UNCOMPLICATED (17) Bipolar II disorder Code(s): F31.81 - BIPOLAR II DISORDER (18) Hepatitis C Code(s): B19.20 - UNSPECIFIED VIRAL HEPATITIS C WITHOUT HEPATIC COMA (19) Hypertension Code(s): I10 - ESSENTIAL (PRIMARY) HYPERTENSION (20) Nicotine dependence Code(s): F17.200 - NICOTINE DEPENDENCE, UNSPECIFIED, UNCOMPLICATED (21) Opioid dependence Code(s): F11.20 - OPIOID DEPENDENCE, UNCOMPLICATED (22) Seizure disorder Code(s): G40.909 - EPILEPSY, UNSP, NOT INTRACTABLE, WITHOUT STATUS EPILEPTICUS Assessment/Plan S/P SEIZURE APPRECIATE NEURO CONSULT PATIENT IS VERY UPSET ABOUT LOSING HER CAT. MARIANO RESTARTED HYPERGLYCEMIA, STOPPED SOLUMEDROL, STARTED PREDNISONE 20MG DAILY INSULIN INCREASED IVF NEBS INSULIN, ENDOCRINE CONSULT -> MONITOR TODAY'S BS NIURKA RESTARTED HOME NURSE SERVICE. PNEUMONIA/COPD/BRONCHOSPASTIC COMPONENT GAGGERMAN PEYTON
[2016-07-19 08:20] LABS: ALBUMIN 2.7 g/dl (3.4-5.0); ALK PHOS 107 U/L (45-117); ANION GAP 10 (8-16); BILIRUBIN,TOTAL 0.4 mg/dL (0.2-1.0); CALCIUM 8.6 mg/dL (8.5-10.1); CO2 33 mmol/L (21-32); COCKROFT - GAULT 163.7015; CREATININE 0.6 mg/dL (0.55-1.02); SGOT/AST 13 U/L (15-37); SGPT/ALT 29 U/L (12-78); TOT PROT 6.8 g/dl (6.4-8.2)
[2016-07-19 08:24] LABS: GLUCOSE,RANDOM 337 mg/dL (74-106)
[2016-07-19] MEDS ORDERED: PT OWN MED DRAWER 7, Y5N ONE ×2 (09:12→21:53)
[2016-07-19] MEDS: SODIUM CHLORIDE 0.45% 1,000 ML IV SCH (09:18)
[2016-07-19] MEDS: NICOTINE 21 MG/24 HOURS TOPICAL PATCH TD SCH (09:19)
[2016-07-19] MEDS: cefTRIAXone 2 GM/100 ML BAG (PRE-DOCKED) IVPB SCH (09:20)
[2016-07-19] MEDS: levETIRAcetam 500 MG TABLET (FP) PO SCH ×2 (09:23→22:08)
[2016-07-19] MEDS: DULoxetine HCL 30 MG CAPSULE.DR (FP) PO SCH (09:23)
[2016-07-19] MEDS: HYDROCHLOROTHIAZIDE 12.5 MG CAPSULE (FP) PO SCH (09:23)
[2016-07-19] MEDS: ASPIRIN COATED 81 MG TABLET.EC PO SCH (09:23)
[2016-07-19] MEDS: SENNOSIDES 8.6MG TABLET (FP) PO SCH ×2 (09:25→22:07)
[2016-07-19] MEDS: FLUTICASONE/SALMETEROL 100 MCG/50 MCG DISKUS IH SCH ×2 (09:25→22:09)
[2016-07-19] MEDS: LISINOPRIL 20 MG TABLET (FP) PO SCH (09:25)
[2016-07-19] MEDS: oxyCODONE HCL 5 MG TABLET PO PRN (09:26)
[2016-07-19] MEDS: predniSONE 10 MG TABLET (UD) PO SCH (09:26)
[2016-07-19] MEDS: AZITHROMYCIN 250 MG TABLET (FP) PO SCH (09:27)
--- NOTE | 2016-07-19 09:56 | PN ---
Progress Note (short form) - Note Progress Note: PULMONARY VSS/AFEBRILE ANICTERIC DISTANT WITH MINIMAL INSPIRATORY CRACKLES BIBASILAR S1S2 BS+ OBESE LESS EDEMA LABS/MEDS/NOTE/IMAGING/MICRO/ABG REVIEWED NODULAR INFILTRATES ON CT RIGHT GREATER THAN LEFT PNEUMONIA/COPD/BRONCHOSPASTIC COMPONENT MUTIPLE MEDICAL PROBLEMS OUTLINED SEIZURE DISORDER BRONCHODILATORS/O2/ PREDNISONE/ANTIBIOTICS O2 TO KEEP SAT GREATER THAN 90% GLYCEMIC CONTROL/ANTIPYRETICS PRN REPEAT OUTPATIENT CT CHEST Carey HACKETT MD Problem List - Problems (1) CAD (coronary artery disease) Code(s): I25.10 - ATHSCL HEART DISEASE OF [place] CORONARY ARTERY W/O ANG PCTRS (2) COPD (chronic obstructive pulmonary disease) Code(s): J44.9 - CHRONIC OBSTRUCTIVE PULMONARY DISEASE, UNSPECIFIED Qualifiers : COPD type: chronic bronchitis Chronic bronchitis type: unspecified Qualified Code(s): J42 - Unspecified chronic bronchitis (3) Hyperglycemia Code(s): R73.9 - HYPERGLYCEMIA, UNSPECIFIED (4) Hypertension Code(s): I10 - ESSENTIAL (PRIMARY) HYPERTENSION (5) Hypothyroidism Code(s): E03.9 - HYPOTHYROIDISM, UNSPECIFIED (6) Nicotine dependence Code(s): F17.200 - NICOTINE DEPENDENCE, UNSPECIFIED, UNCOMPLICATED (7) Seizure disorder Code(s): G40.909 - EPILEPSY, UNSP, NOT INTRACTABLE, WITHOUT STATUS EPILEPTICUS (8) Vitamin D deficiency Code(s): E55.9 - VITAMIN D DEFICIENCY, UNSPECIFIED (9) Pneumonia Code(s): J18.9 - PNEUMONIA, UNSPECIFIED ORGANISM
--- NOTE | 2016-07-19 13:59 | PN ---
Progress Note (short form) - Note Progress Note: RENAL Pt is awake and alert comfortable sitting up in chair Last Vital Signs Temp Pulse Resp BP Pulse Ox 98.3 F 72 18 139/89 92 L 07/19/16 10:00 07/19/16 10:00 07/19/16 10:00 07/19/16 10:00 07/19/16 09:00 lungs clear cvs s1s2 rr abd soft ext no edema neuro no edema has bone tenderness CBC, BMP 07/19/16 06:15 Current Medications Generic Name Dose Route Start Last Admin Trade Name Freq PRN Reason Stop Dose Admin Albuterol/Ipratropium 1 amp 07/15/16 11:30 07/19/16 12:12 Duoneb - NEB 1 amp QIDR [facility] Administration Alprazolam 1 mg 07/16/16 10:30 07/19/16 06:17 Xanax - PO Not Given TID [facility] Aspirin 81 mg 07/18/16 10:00 07/19/16 09:23 Ecotrin - PO 81 mg DAILY [facility] Administration Azithromycin 500 mg 07/16/16 10:00 07/19/16 09:27 Zithromax - PO 500 mg DAILY [facility] Administration Ceftriaxone Sodium 2 gm 07/18/16 10:00 07/19/16 09:20 Rocephin 2gm Ivpb (Pre-Docked) IVPB 2 gm DAILY [facility] Administration Protocol Diltiazem HCl 120 mg 07/16/16 14:30 07/19/16 09:25 Cardizem Cd - PO 120 mg DAILY [facility] Administration Docusate Sodium 300 mg 07/16/16 22:00 07/18/16 21:12 Colace - PO 300 mg HS [facility] Administration Duloxetine HCl 60 mg 07/17/16 12:30 07/19/16 09:23 Cymbalta - PO 60 mg DAILY [facility] Administration Hydrochlorothiazide 12.5 mg 07/16/16 14:30 07/19/16 09:23 Hctz - PO 12.5 mg DAILY [facility] Administration Sodium Chloride 1,000 mls @ 100 mls/hr 07/18/16 09:30 07/19/16 09:18 1/2 Normal Saline IV 100 mls/hr ASDIR [facility] Administration Insulin Aspart 25 units 07/19/16 07:00 07/19/16 06:12 Novolog Mix 70/30 Vial SQ 25 units BIDAC [facility] Administration Insulin Aspart 1 vial 07/19/16 00:33 07/19/16 11:37 Novolog Vial Sliding Scale - SQ 10 units ACHS [facility] Administration Protocol Levetiracetam 500 mg 07/17/16 22:00 07/19/16 09:23 Keppra - PO 500 mg BID [facility] Administration Lisinopril 20 mg 07/16/16 14:30 07/19/16 09:25 Prinivil PO 20 mg DAILY [facility] Administration Montelukast Sodium 10 mg 07/17/16 22:00 07/18/16 21:14 Singulair - PO 10 mg HS [facility] Administration Nicotine 21 mg 07/15/16 11:30 07/19/16 09:19 Nicoderm Patch - TD 21 mg DAILY [facility] Administration Oxycodone HCl 5 mg 07/16/16 07:56 07/19/16 09:26 Roxicodone - PO 5 mg Q6H PRN Administration PAIN Pramipexole Dihydrochloride 0.125 mg 07/18/16 20:00 07/18/16 09:00 Mirapex - PO 0.125 mg HS@20 [facility] Administration Prednisone 10 mg 07/19/16 10:00 07/19/16 09:26 Deltasone - PO 10 mg DAILY [facility] Administration Fluticasone/Salmeterol 1 puff 07/17/16 12:30 07/19/16 09:25 Advair 100mcg/50mcg - IH 1 inh BID [facility] Administration Senna 1 tab 07/17/16 22:00 07/19/16 09:25 Senna - PO 1 tab BID [facility] Administration Tramadol HCl 50 mg 07/17/16 11:23 07/19/16 04:45 Ultram - PO 50 mg Q6H PRN Administration PAIN Zolpidem Tartrate 10 mg 07/14/16 22:54 07/17/16 21:48 Ambien - PO 10 mg HS PRN Administration IMPRESSION hyponatremia improved bone pain uncontrolled dm PLAN dc prednisone would get bone density scan as outpatient control glucose antibioticsif sodium again low give saline and dc hctz MV
[2016-07-19 14:01] LABS: CALCIUM 8.5 mg/dL (8.5-10.1); COCKROFT - GAULT 109.1315; CREATININE 0.9 mg/dL (0.55-1.02)
[2016-07-19] MEDS ORDERED: INSULIN (NOVOLOG MIX 70/30) 100 UNITS/ML MDV SQ SCH (21:47)
--- NOTE | 2016-07-19 21:52 | PN ---
Progress Note (short form) - Note Progress Note: elevated sugars,insulin resistant,morbid obesity,copd,angina symptoms Current Active Problems CAD (coronary artery disease) (Acute) COPD (chronic obstructive pulmonary disease) (Acute) Chest pain at rest (Acute) Cocaine abuse (Acute) Dysarthria (Acute) Elevated liver enzymes (Acute) Hyperglycemia (Acute) Lactic acid acidosis (Acute) Pneumonia (Acute) Sepsis (Acute) Severe sepsis (Acute) Tobacco abuse (Acute) Abnormal Lab Results 07/18/16 07/19/16 07/19/16 21:30 06:15 06:15 WBC 11.7 H Sodium 133 L Chloride 90 L Carbon Dioxide 33 H Random Glucose 337 H* Lactic Acid 2.089 H* AST 13 L D Albumin 2.7 L 07/19/16 13:10 WBC Sodium 134 L Chloride 90 L Carbon Dioxide Random Glucose 474 H* D Lactic Acid AST Albumin Laboratory Tests 07/18/16 07/19/16 07/19/16 20:55 05:55 16:47 POC Glucometer 357 372 347 07/19/16 21:13 POC Glucometer 288 plan: increase novolog 70/30 to 35 units bid bgm qid novolog scale increased Problem List - Problems (1) COPD (chronic obstructive pulmonary disease) Code(s): J44.9 - CHRONIC OBSTRUCTIVE PULMONARY DISEASE, UNSPECIFIED Qualifiers : COPD type: chronic bronchitis Chronic bronchitis type: unspecified Qualified Code(s): J42 - Unspecified chronic bronchitis (2) Elevated liver enzymes Code(s): R74.8 - ABNORMAL LEVELS OF OTHER SERUM ENZYMES (3) Hyperglycemia Code(s): R73.9 - HYPERGLYCEMIA, UNSPECIFIED
[2016-07-19] MEDS: DOCUSATE SODIUM 100 MG CAPSULE (FP) PO SCH (22:07)
[2016-07-19] MEDS: MONTELUKAST NA 10 MG TABLET PO SCH (22:08)
[2016-07-19] MEDS: PRAMIPEXOLE DIHYDROCHLORIDE 0.125 MG TABLET PO SCH (22:08)
[2016-07-20] MEDS ORDERED: PT OWN MED DRAWER 7, Y5N ONE ×3 (02:12→21:08)
[2016-07-20] MEDS: oxyCODONE HCL 5 MG TABLET PO PRN ×2 (05:36→16:46)
[2016-07-20] MEDS: ALBUTEROL SO4 2.5/IPRATROPIUM 0.5 INH SOL 3 ML VIAL.NEB. NEB SCH ×4 (06:15→23:55)
[2016-07-20] MEDS: ALPRAZolam 0.25 MG TABLET PO SCH ×3 (06:48→21:10)
[2016-07-20] MEDS ORDERED: INSULIN (NOVOLOG) ASPART 100 UNITS/ML 10ML VIAL ONE (06:54)
[2016-07-20 07:19] LABS: BASOPHIL 0.1 % (0-2.0); EOSINOPHIL 2.5 % (0-4.5); MCH 29.4 pg (25.7-33.7); MCHC 32.9 g/dl (32.0-36.0); MEAN CELL VOLUME 89.5 fl (80-96); MEAN PLT VOLUME 8.5 fl (7.5-11.1); NEUTROPHILS 50.6 % (42.8-82.8); PLATELET COUNT 283 K/MM3 (134-434); RDW 13.7 % (11.6-15.6); WHITE BLOOD COUNT 13.9 K/mm3 (4.0-10.0)
[2016-07-20 07:39] LABS: ALBUMIN 2.6 g/dl (3.4-5.0); ANION GAP 10 (8-16); BILIRUBIN,TOTAL 0.3 mg/dL (0.2-1.0); CALCIUM 8.4 mg/dL (8.5-10.1); CO2 34 mmol/L (21-32); COCKROFT - GAULT 196.6645; CREATININE 0.5 mg/dL (0.55-1.02); GLUCOSE,RANDOM 171 mg/dL (74-106); SGOT/AST 27 U/L (15-37); SGPT/ALT 41 U/L (12-78); TOT PROT 6.7 g/dl (6.4-8.2)
[2016-07-20 07:48] LABS: ALK PHOS 111 U/L (45-117); FREE T4 1.13 ng/dl (0.76-1.46); THYROID STIMULATING HORMONE 1.51 uIU/ml (0.358-3.74)
[2016-07-20] MEDS: INSULIN SLIDING SCALE (NOVOLOG) 1 VIAL SQ SCH ×4 (08:40→21:11)
[2016-07-20] MEDS: INSULIN (NOVOLOG MIX 70/30) 100 UNITS/ML MDV SQ SCH ×2 (08:40→16:46)
[2016-07-20] MEDS: DULoxetine HCL 30 MG CAPSULE.DR (FP) PO SCH (08:59)
[2016-07-20] MEDS: ASPIRIN COATED 81 MG TABLET.EC PO SCH (08:59)
[2016-07-20] MEDS: FLUTICASONE/SALMETEROL 100 MCG/50 MCG DISKUS IH SCH ×2 (08:59→21:12)
[2016-07-20] MEDS: levETIRAcetam 500 MG TABLET (FP) PO SCH ×2 (08:59→21:11)
[2016-07-20] MEDS: LISINOPRIL 20 MG TABLET (FP) PO SCH (08:59)
[2016-07-20] MEDS: predniSONE 10 MG TABLET (UD) PO SCH (09:00)
[2016-07-20] MEDS: NICOTINE 21 MG/24 HOURS TOPICAL PATCH TD SCH (09:00)
[2016-07-20] MEDS: AZITHROMYCIN 250 MG TABLET (FP) PO SCH (09:00)
[2016-07-20] MEDS: HYDROCHLOROTHIAZIDE 12.5 MG CAPSULE (FP) PO SCH (09:00)
[2016-07-20] MEDS: SENNOSIDES 8.6MG TABLET (FP) PO SCH ×2 (09:00→21:11)
[2016-07-20] MEDS: cefTRIAXone 2 GM/100 ML BAG (PRE-DOCKED) IVPB SCH (09:01)
--- NOTE | 2016-07-20 13:30 | PN ---
Progress Note, Physician History of Present Illness: Pt seen and examined at bedside. She is awake and appears comfortable. She complains of fatigue. - Current Medication List Current Medications: Active Medications Albuterol/Ipratropium (Duoneb -) 1 amp NEB QIDR [facility] Last Admin: 07/20/16 06:15 Dose: 1 amp Alprazolam (Xanax -) 1 mg PO TID [facility] Last Admin: 07/20/16 06:48 Dose: 1 mg Aspirin (Ecotrin -) 81 mg PO DAILY [facility] Last Admin: 07/20/16 08:59 Dose: 81 mg Azithromycin (Zithromax -) 500 mg PO DAILY [facility] Last Admin: 07/20/16 09:00 Dose: 500 mg Ceftriaxone Sodium (Rocephin 2gm Ivpb (Pre-Docked)) 2 gm IVPB DAILY [facility] PRN Reason: Protocol Last Admin: 07/20/16 09:01 Dose: 2 gm Diltiazem HCl (Cardizem Cd -) 120 mg PO DAILY [facility] Last Admin: 07/20/16 09:00 Dose: 120 mg Docusate Sodium (Colace -) 300 mg PO HS [facility] Last Admin: 07/19/16 22:07 Dose: Not Given Duloxetine HCl (Cymbalta -) 60 mg PO DAILY [facility] Last Admin: 07/20/16 08:59 Dose: 60 mg Hydrochlorothiazide (Hctz -) 12.5 mg PO DAILY [facility] Last Admin: 07/20/16 09:00 Dose: 12.5 mg Sodium Chloride (1/2 Normal Saline) 1,000 mls @ 100 mls/hr IV ASDIR [facility] Last Admin: 07/19/16 09:18 Dose: 100 mls/hr Insulin Aspart (Novolog Vial Sliding Scale -) 1 vial SQ ACHS [facility] PRN Reason: Protocol Last Admin: 07/20/16 12:01 Dose: 9 units Insulin Aspart (Novolog Mix 70/30 Vial) 40 units SQ BIDAC [facility] Last Admin: 07/20/16 08:40 Dose: 40 unit Levetiracetam (Keppra -) 500 mg PO BID [facility] Last Admin: 07/20/16 08:59 Dose: 500 mg Lisinopril (Prinivil) 20 mg PO DAILY [facility] Last Admin: 07/20/16 08:59 Dose: 20 mg Montelukast Sodium (Singulair -) 10 mg PO HS [facility] Last Admin: 07/19/16 22:08 Dose: 10 mg Nicotine (Nicoderm Patch -) 21 mg TD DAILY [facility] Last Admin: 07/20/16 09:00 Dose: 21 mg Oxycodone HCl (Roxicodone -) 5 mg PO Q6H PRN PRN Reason: PAIN Last Admin: 07/20/16 05:36 Dose: 5 mg Pramipexole Dihydrochloride (Mirapex -) 0.125 mg PO HS@20 [facility] Last Admin: 07/19/16 22:08 Dose: 0.125 mg Prednisone (Deltasone -) 10 mg PO DAILY [facility] Last Admin: 07/20/16 09:00 Dose: 10 mg Fluticasone/Salmeterol (Advair 100mcg/50mcg -) 1 puff IH BID [facility] Last Admin: 07/20/16 08:59 Dose: 1 inh Senna (Senna -) 1 tab PO BID [facility] Last Admin: 07/20/16 09:00 Dose: 1 tab Tramadol HCl (Ultram -) 50 mg PO Q6H PRN PRN Reason: PAIN Last Admin: 07/19/16 22:10 Dose: 50 mg Zolpidem Tartrate (Ambien -) 10 mg PO HS PRN Last Admin: 07/17/16 21:48 Dose: 10 mg - Objective Vital Signs: Vital Signs Temperature 98.7 F 07/20/16 10:00 Pulse Rate 80 07/20/16 10:00 Respiratory Rate 18 07/20/16 10:00 Blood Pressure 117/86 07/20/16 10:00 O2 Sat by Pulse Oximetry (%) 96 07/20/16 09:00 Constitutional: Yes: Calm Eyes: Yes: Conjunctiva Clear HENT: Yes: Atraumatic Cardiovascular: Yes: S1, S2 Respiratory: Yes: On Nasal O2 Gastrointestinal: Yes: Soft, Abdomen, Obese Extremities: Yes: WNL Edema: No Neurological: Yes: Oriented Psychiatric: Yes: Oriented Labs: CBC, BMP 07/20/16 05:40 07/20/16 05:40 INR, PTT INR 1.03 (0.82-1.09) 07/13/16 14:40 Problem List - Problems (1) CAD (coronary artery disease) Code(s): I25.10 - ATHSCL HEART DISEASE OF [place] CORONARY ARTERY W/O ANG PCTRS (2) COPD (chronic obstructive pulmonary disease) Code(s): J44.9 - CHRONIC OBSTRUCTIVE PULMONARY DISEASE, UNSPECIFIED Qualifiers : COPD type: chronic bronchitis Chronic bronchitis type: unspecified Qualified Code(s): J42 - Unspecified chronic bronchitis (3) Pyelonephritis Code(s): N12 - [place]UBULO-INTERSTITIAL NEPHRITIS, NOT SPCF ACUTE OR CHRONIC (4) UTI (urinary tract infection) Code(s): N39.0 - URINARY TRACT INFECTION, SITE NOT SPECIFIED (5) Hepatitis C Code(s): B19.20 - UNSPECIFIED VIRAL HEPATITIS C WITHOUT HEPATIC COMA (6) Sepsis Code(s): A41.9 - SEPSIS, UNSPECIFIED ORGANISM (7) Lactic acid acidosis Code(s): E87.2 - ACIDOSIS Assessment/Plan Current Medications Generic Name Dose Route Start Last Admin Trade Name Freq PRN Reason Stop Dose Admin Albuterol/Ipratropium 1 amp 07/15/16 11:30 07/20/16 06:15 Duoneb - NEB 1 amp QIDR [facility] Administration Alprazolam 1 mg 07/16/16 10:30 07/20/16 06:48 Xanax - PO 1 mg TID [facility] Administration Aspirin 81 mg 07/18/16 10:00 07/20/16 08:59 Ecotrin - PO 81 mg DAILY [facility] Administration Azithromycin 500 mg 07/16/16 10:00 07/20/16 09:00 Zithromax - PO 500 mg DAILY [facility] Administration Ceftriaxone Sodium 2 gm 07/18/16 10:00 07/20/16 09:01 Rocephin 2gm Ivpb (Pre-Docked) IVPB 2 gm DAILY [facility] Administration Protocol Diltiazem HCl 120 mg 07/16/16 14:30 07/20/16 09:00 Cardizem Cd - PO 120 mg DAILY [facility] Administration Docusate Sodium 300 mg 07/16/16 22:00 07/19/16 22:07 Colace - PO Not Given HS [facility] Duloxetine HCl 60 mg 07/17/16 12:30 07/20/16 08:59 Cymbalta - PO 60 mg DAILY [facility] Administration Hydrochlorothiazide 12.5 mg 07/16/16 14:30 07/20/16 09:00 Hctz - PO 12.5 mg DAILY [facility] Administration Sodium Chloride 1,000 mls @ 100 mls/hr 07/18/16 09:30 07/19/16 09:18 1/2 Normal Saline IV 100 mls/hr ASDIR [facility] Administration Insulin Aspart 1 vial 07/19/16 21:48 07/20/16 12:01 Novolog Vial Sliding Scale - SQ 9 units ACHS [facility] Administration Protocol Insulin Aspart 40 units 07/20/16 08:30 07/20/16 08:40 Novolog Mix 70/30 Vial SQ 40 unit BIDAC [facility] Administration Levetiracetam 500 mg 07/17/16 22:00 07/20/16 08:59 Keppra - PO 500 mg BID [facility] Administration Lisinopril 20 mg 07/16/16 14:30 07/20/16 08:59 Prinivil PO 20 mg DAILY [facility] Administration Montelukast Sodium 10 mg 07/17/16 22:00 07/19/16 22:08 Singulair - PO 10 mg HS [facility] Administration Nicotine 21 mg 07/15/16 11:30 07/20/16 09:00 Nicoderm Patch - TD 21 mg DAILY [facility] Administration Oxycodone HCl 5 mg 07/16/16 07:56 07/20/16 05:36 Roxicodone - PO 5 mg Q6H PRN Administration PAIN Pramipexole Dihydrochloride 0.125 mg 07/18/16 20:00 07/19/16 22:08 Mirapex - PO 0.125 mg HS@20 [facility] Administration Prednisone 10 mg 07/19/16 10:00 07/20/16 09:00 Deltasone - PO 10 mg DAILY [facility] Administration Fluticasone/Salmeterol 1 puff 07/17/16 12:30 07/20/16 08:59 Advair 100mcg/50mcg - IH 1 inh BID [facility] Administration Senna 1 tab 07/17/16 22:00 07/20/16 09:00 Senna - PO 1 tab BID [facility] Administration Tramadol HCl 50 mg 07/17/16 11:23 07/19/16 22:10 Ultram - PO 50 mg Q6H PRN Administration PAIN Zolpidem Tartrate 10 mg 07/14/16 22:54 07/17/16 21:48 Ambien - PO 10 mg HS PRN Administration Impression 1. sepsis 2. PNA 3. UTI 4. possible pyelo 5. COPD 6. Hep C 7. CAD 8. CHF Plan - cont with oxygen - monitor pulse ox - hypoxia can cause elevated lactic acid levels - steroids with taper as tolerated - will follow - pt on diuretics and hctz, will hold both Dr Post
--- NOTE | 2016-07-20 13:46 | PN ---
Progress Note, Physician History of Present Illness: pulmonary alert,nad,+cough,less dyspneic - Current Medication List Current Medications: Active Medications Albuterol/Ipratropium (Duoneb -) 1 amp NEB QIDR [facility] Last Admin: 07/20/16 06:15 Dose: 1 amp Alprazolam (Xanax -) 1 mg PO TID [facility] Last Admin: 07/20/16 13:27 Dose: 1 mg Aspirin (Ecotrin -) 81 mg PO DAILY [facility] Last Admin: 07/20/16 08:59 Dose: 81 mg Azithromycin (Zithromax -) 500 mg PO DAILY [facility] Last Admin: 07/20/16 09:00 Dose: 500 mg Ceftriaxone Sodium (Rocephin 2gm Ivpb (Pre-Docked)) 2 gm IVPB DAILY [facility] PRN Reason: Protocol Last Admin: 07/20/16 09:01 Dose: 2 gm Diltiazem HCl (Cardizem Cd -) 120 mg PO DAILY [facility] Last Admin: 07/20/16 09:00 Dose: 120 mg Docusate Sodium (Colace -) 300 mg PO HS [facility] Last Admin: 07/19/16 22:07 Dose: Not Given Duloxetine HCl (Cymbalta -) 60 mg PO DAILY [facility] Last Admin: 07/20/16 08:59 Dose: 60 mg Insulin Aspart (Novolog Vial Sliding Scale -) 1 vial SQ ACHS [facility] PRN Reason: Protocol Last Admin: 07/20/16 12:01 Dose: 9 units Insulin Aspart (Novolog Mix 70/30 Vial) 40 units SQ BIDAC [facility] Last Admin: 07/20/16 08:40 Dose: 40 unit Levetiracetam (Keppra -) 500 mg PO BID [facility] Last Admin: 07/20/16 08:59 Dose: 500 mg Lisinopril (Prinivil) 20 mg PO DAILY [facility] Last Admin: 07/20/16 08:59 Dose: 20 mg Montelukast Sodium (Singulair -) 10 mg PO HS [facility] Last Admin: 07/19/16 22:08 Dose: 10 mg Nicotine (Nicoderm Patch -) 21 mg TD DAILY [facility] Last Admin: 07/20/16 09:00 Dose: 21 mg Oxycodone HCl (Roxicodone -) 5 mg PO Q6H PRN PRN Reason: PAIN Last Admin: 07/20/16 05:36 Dose: 5 mg Pramipexole Dihydrochloride (Mirapex -) 0.125 mg PO HS@20 [facility] Last Admin: 07/19/16 22:08 Dose: 0.125 mg Prednisone (Deltasone -) 10 mg PO DAILY [facility] Last Admin: 07/20/16 09:00 Dose: 10 mg Fluticasone/Salmeterol (Advair 100mcg/50mcg -) 1 puff IH BID [facility] Last Admin: 07/20/16 08:59 Dose: 1 inh Senna (Senna -) 1 tab PO BID [facility] Last Admin: 07/20/16 09:00 Dose: 1 tab Tramadol HCl (Ultram -) 50 mg PO Q6H PRN PRN Reason: PAIN Last Admin: 07/19/16 22:10 Dose: 50 mg Zolpidem Tartrate (Ambien -) 10 mg PO HS PRN Last Admin: 07/17/16 21:48 Dose: 10 mg - Objective Vital Signs: Vital Signs Temperature 98.7 F 07/20/16 10:00 Pulse Rate 80 07/20/16 10:00 Respiratory Rate 18 07/20/16 10:00 Blood Pressure 117/86 07/20/16 10:00 O2 Sat by Pulse Oximetry (%) 96 07/20/16 09:00 Constitutional: Yes: Well Nourished, Calm Eyes: Yes: WNL HENT: Yes: WNL Neck: Yes: WNL Cardiovascular: Yes: Regular Rate and Rhythm, S1, S2 Respiratory: Yes: Rhonchi (few scattered rhonchi) Gastrointestinal: Yes: WNL Extremities: Yes: WNL Edema: No Labs: CBC, BMP 07/20/16 05:40 07/20/16 05:40 INR, PTT INR 1.03 (0.82-1.09) 07/13/16 14:40 Assessment/Plan Problem List - Problems (1) CAD (coronary artery disease) Code(s): I25.10 - ATHSCL HEART DISEASE OF [place] CORONARY ARTERY W/O ANG PCTRS (2) COPD (chronic obstructive pulmonary disease) Code(s): J44.9 - CHRONIC OBSTRUCTIVE PULMONARY DISEASE, UNSPECIFIED Qualifiers : COPD type: chronic bronchitis Chronic bronchitis type: unspecified Qualified Code(s): J42 - Unspecified chronic bronchitis (3) Hyperglycemia Code(s): R73.9 - HYPERGLYCEMIA, UNSPECIFIED (4) Hypertension Code(s): I10 - ESSENTIAL (PRIMARY) HYPERTENSION (5) Hypothyroidism Code(s): E03.9 - HYPOTHYROIDISM, UNSPECIFIED (6) Nicotine dependence Code(s): F17.200 - NICOTINE DEPENDENCE, UNSPECIFIED, UNCOMPLICATED (7) Seizure disorder Code(s): G40.909 - EPILEPSY, UNSP, NOT INTRACTABLE, WITHOUT STATUS EPILEPTICUS (8) Vitamin D deficiency Code(s): E55.9 - VITAMIN D DEFICIENCY, UNSPECIFIED (9) Pneumonia Code(s): J18.9 - PNEUMONIA, UNSPECIFIED ORGANISM 10 GROUND GLASS NODULES Assessment/Plan Prednisone BD TX ABX BD TX O2 as needed No smoking Will need follow up CT imaging and possibly PET 4-6 WKS
--- NOTE | 2016-07-20 21:09 | PN ---
Progress Note, Physician Chief Complaint: FELT A LITTLE DIZZY THIS AM BS 140 S/P AM Rx INCLUDING XANAX & NARCOTIC PAIN Rx - Current Medication List Current Medications: Active Medications Albuterol/Ipratropium (Duoneb -) 1 amp NEB QIDR [facility] Last Admin: 07/20/16 18:31 Dose: 1 amp Alprazolam (Xanax -) 1 mg PO TID [facility] Last Admin: 07/20/16 13:27 Dose: 1 mg Aspirin (Ecotrin -) 81 mg PO DAILY [facility] Last Admin: 07/20/16 08:59 Dose: 81 mg Azithromycin (Zithromax -) 500 mg PO DAILY [facility] Last Admin: 07/20/16 09:00 Dose: 500 mg Ceftriaxone Sodium (Rocephin 2gm Ivpb (Pre-Docked)) 2 gm IVPB DAILY [facility] PRN Reason: Protocol Last Admin: 07/20/16 09:01 Dose: 2 gm Diltiazem HCl (Cardizem Cd -) 120 mg PO DAILY [facility] Last Admin: 07/20/16 09:00 Dose: 120 mg Docusate Sodium (Colace -) 300 mg PO [facility] Last Admin: 07/19/16 22:07 Dose: Not Given Duloxetine HCl (Cymbalta -) 60 mg PO DAILY [facility] Last Admin: 07/20/16 08:59 Dose: 60 mg Insulin Aspart (Novolog Vial Sliding Scale -) 1 vial SQ ACHS [facility] PRN Reason: Protocol Last Admin: 07/20/16 17:10 Dose: 5 units Insulin Aspart (Novolog Mix 70/30 Vial) 40 units SQ BIDAC [facility] Last Admin: 07/20/16 16:46 Dose: 40 unit Levetiracetam (Keppra -) 500 mg PO BID [facility] Last Admin: 07/20/16 08:59 Dose: 500 mg Lisinopril (Prinivil) 20 mg PO DAILY [facility] Last Admin: 07/20/16 08:59 Dose: 20 mg Montelukast Sodium (Singulair -) 10 mg PO HS [facility] Last Admin: 07/19/16 22:08 Dose: 10 mg Nicotine (Nicoderm Patch -) 21 mg TD DAILY [facility] Last Admin: 07/20/16 09:00 Dose: 21 mg Oxycodone HCl (Roxicodone -) 5 mg PO Q6H PRN PRN Reason: PAIN Last Admin: 04/10/17 16:46 Dose: 5 mg Pramipexole Dihydrochloride (Mirapex -) 0.125 mg PO HS@20 [facility] Last Admin: 07/19/16 22:08 Dose: 0.125 mg Prednisone (Deltasone -) 10 mg PO DAILY [facility] Last Admin: 07/20/16 09:00 Dose: 10 mg Fluticasone/Salmeterol (Advair 100mcg/50mcg -) 1 puff IH BID [facility] Last Admin: 07/20/16 08:59 Dose: 1 inh Senna (Senna -) 1 tab PO BID [facility] Last Admin: 07/20/16 09:00 Dose: 1 tab Tramadol HCl (Ultram -) 50 mg PO Q6H PRN PRN Reason: PAIN Last Admin: 07/19/16 22:10 Dose: 50 mg Zolpidem Tartrate (Ambien -) 10 mg PO HS PRN Last Admin: 07/17/16 21:48 Dose: 10 mg - Objective Vital Signs: Vital Signs Temperature 98.2 F 07/20/16 18:44 Pulse Rate 79 07/20/16 18:44 Respiratory Rate 18 07/20/16 18:44 Blood Pressure 102/63 07/20/16 18:44 O2 Sat by Pulse Oximetry (%) 98 07/20/16 11:25 Constitutional: Yes: Calm Neck: Yes: WNL Cardiovascular: Yes: WNL Respiratory: Yes: WNL Gastrointestinal: Yes: WNL Edema: No Labs: CBC, BMP 07/20/16 05:40 07/20/16 05:40 INR, PTT INR 1.03 (0.82-1.09) 07/13/16 14:40 Problem List - Problems (1) CAD (coronary artery disease) Code(s): I25.10 - ATHSCL HEART DISEASE OF [place] CORONARY ARTERY W/O ANG PCTRS (2) COPD (chronic obstructive pulmonary disease) Code(s): J44.9 - CHRONIC OBSTRUCTIVE PULMONARY DISEASE, UNSPECIFIED Qualifiers : COPD type: chronic bronchitis Chronic bronchitis type: unspecified Qualified Code(s): J42 - Unspecified chronic bronchitis (3) Hyperglycemia Code(s): R73.9 - HYPERGLYCEMIA, UNSPECIFIED (4) Hypertension associated with diabetes Code(s): E11.59 - TYPE 2 DIABETES MELLITUS WITH OTH CIRCULATORY COMPLICATIONS I10 - ESSENTIAL (PRIMARY) HYPERTENSION (5) Bipolar II disorder Code(s): F31.81 - BIPOLAR II DISORDER (6) Hypertension Code(s): I10 - ESSENTIAL (PRIMARY) HYPERTENSION (7) Hypothyroidism Code(s): E03.9 - HYPOTHYROIDISM, UNSPECIFIED (8) Seizure disorder Code(s): G40.909 - EPILEPSY, UNSP, NOT INTRACTABLE, WITHOUT STATUS EPILEPTICUS Assessment/Plan (1) CAD (coronary artery disease) Code(s): I25.10 - ATHSCL HEART DISEASE OF [place] CORONARY ARTERY W/O ANG PCTRS (2) COPD (chronic obstructive pulmonary disease) Code(s): J44.9 - CHRONIC OBSTRUCTIVE PULMONARY DISEASE, UNSPECIFIED Qualifiers : COPD type: chronic bronchitis Chronic bronchitis type: unspecified Qualified Code(s): J42 - Unspecified chronic bronchitis (3) Chest pain at rest Code(s): R07.9 - CHEST PAIN, UNSPECIFIED (4) Dysarthria Code(s): R47.1 - DYSARTHRIA AND ANARTHRIA (5) Elevated liver enzymes Code(s): R74.8 - ABNORMAL LEVELS OF OTHER SERUM ENZYMES (6) Hyperglycemia Code(s): R73.9 - HYPERGLYCEMIA, UNSPECIFIED (7) Lactic acid acidosis Code(s): E87.2 - ACIDOSIS (8) Sepsis Code(s): A41.9 - SEPSIS, UNSPECIFIED ORGANISM (9) Severe sepsis Code(s): A41.9 - SEPSIS, UNSPECIFIED ORGANISM R65.20 - SEVERE SEPSIS WITHOUT SEPTIC SHOCK (10) Tobacco abuse Code(s): Z72.0 - TOBACCO USE (11) COPD exacerbation Code(s): J44.1 - CHRONIC OBSTRUCTIVE PULMONARY DISEASE W (ACUTE) EXACERBATION (12) Hypertension associated with diabetes Code(s): E11.59 - TYPE 2 DIABETES MELLITUS WITH OTH CIRCULATORY COMPLICATIONS I10 - ESSENTIAL (PRIMARY) HYPERTENSION (13) Pyelonephritis Code(s): N12 - TUBULO-INTERSTITIAL NEPHRITIS, NOT SPCF ACUTE OR CHRONIC (14) UTI (urinary tract infection) Code(s): N39.0 - URINARY TRACT INFECTION, SITE NOT SPECIFIED (15) Asthma Code(s): J45.909 - UNSPECIFIED ASTHMA, UNCOMPLICATED (16) Benzodiazepine dependence Code(s): F13.20 - SEDATIVE, HYPNOTIC OR ANXIOLYTIC DEPENDENCE, UNCOMPLICATED (17) Bipolar II disorder Code(s): F31.81 - BIPOLAR II DISORDER (18) Hepatitis C Code(s): B19.20 - UNSPECIFIED VIRAL HEPATITIS C WITHOUT HEPATIC COMA (19) Hypertension Code(s): I10 - ESSENTIAL (PRIMARY) HYPERTENSION (20) Nicotine dependence Code(s): F17.200 - NICOTINE DEPENDENCE, UNSPECIFIED, UNCOMPLICATED (21) Opioid dependence Code(s): F11.20 - OPIOID DEPENDENCE, UNCOMPLICATED (22) Seizure disorder Code(s): G40.909 - EPILEPSY, UNSP, NOT INTRACTABLE, WITHOUT STATUS EPILEPTICUS Assessment/Plan S/P SEIZURE APPRECIATE NEURO CONSULT PATIENT IS VERY UPSET ABOUT LOSING HER CAT. KEPPRA RESTARTED HYPERGLYCEMIA PREDNISONE INSULIN INCREASED/ENDO ON CASE IVF NEBS NIURKA RESTARTED HOME NURSE SERVICE. PNEUMONIA/COPD/BRONCHOSPASTIC COMPONENT RN OSTOMY FM
[2016-07-20] MEDS: DOCUSATE SODIUM 100 MG CAPSULE (FP) PO SCH (21:10)
[2016-07-20] MEDS: traMADol HCL 50 MG TABLET PO PRN (21:11)
[2016-07-20] MEDS: MONTELUKAST NA 10 MG TABLET PO SCH (21:11)
[2016-07-20] MEDS: PRAMIPEXOLE DIHYDROCHLORIDE 0.125 MG TABLET PO SCH (21:12)
[2016-07-21] MEDS: ALBUTEROL SO4 2.5/IPRATROPIUM 0.5 INH SOL 3 ML VIAL.NEB. NEB SCH ×4 (06:31→23:46)
--- NOTE | 2016-07-21 06:35 | PN ---
Progress Note, Physician Chief Complaint: C/O EPIGASTRIC PAIN WANTS TO GO HOME NL BM - Current Medication List Current Medications: Active Medications Albuterol/Ipratropium (Duoneb -) 1 amp NEB QIDR [facility] Last Admin: 07/21/16 06:31 Dose: 1 amp Alprazolam (Xanax -) 1 mg PO TID [facility] Last Admin: 07/20/16 21:10 Dose: 1 mg Aspirin (Ecotrin -) 81 mg PO DAILY [facility] Last Admin: 07/20/16 08:59 Dose: 81 mg Azithromycin (Zithromax -) 500 mg PO DAILY [facility] Last Admin: 07/20/16 09:00 Dose: 500 mg Ceftriaxone Sodium (Rocephin 2gm Ivpb (Pre-Docked)) 2 gm IVPB DAILY [facility] PRN Reason: Protocol Last Admin: 07/20/16 09:01 Dose: 2 gm Diltiazem HCl (Cardizem Cd -) 120 mg PO DAILY [facility] Last Admin: 07/20/16 09:00 Dose: 120 mg Docusate Sodium (Colace -) 300 mg PO HS [facility] Last Admin: 07/20/16 21:10 Dose: 300 mg Duloxetine HCl (Cymbalta -) 60 mg PO DAILY [facility] Last Admin: 07/20/16 08:59 Dose: 60 mg Insulin Aspart (Novolog Vial Sliding Scale -) 1 vial SQ ACHS [facility] PRN Reason: Protocol Last Admin: 07/20/16 21:11 Dose: Not Given Insulin Aspart (Novolog Mix 70/30 Vial) 40 units SQ BIDAC [facility] Last Admin: 07/20/16 16:46 Dose: 40 unit Levetiracetam (Keppra -) 500 mg PO BID [facility] Last Admin: 07/20/16 21:11 Dose: 500 mg Lisinopril (Prinivil) 20 mg PO DAILY [facility] Last Admin: 07/20/16 08:59 Dose: 20 mg Montelukast Sodium (Singulair -) 10 mg PO HS [facility] Last Admin: 07/20/16 21:11 Dose: 10 mg Nicotine (Nicoderm Patch -) 21 mg TD DAILY [facility] Last Admin: 07/20/16 09:00 Dose: 21 mg Oxycodone HCl (Roxicodone -) 5 mg PO Q6H PRN PRN Reason: PAIN Last Admin: 07/20/16 16:46 Dose: 5 mg Pramipexole Dihydrochloride (Mirapex -) 0.125 mg PO HS@20 [facility] Last Admin: 07/20/16 21:12 Dose: 0.125 mg Prednisone (Deltasone -) 10 mg PO DAILY [facility] Last Admin: 07/20/16 09:00 Dose: 10 mg Fluticasone/Salmeterol (Advair 100mcg/50mcg -) 1 puff IH BID [facility] Last Admin: 07/20/16 21:12 Dose: 1 inh Senna (Senna -) 1 tab PO BID [facility] Last Admin: 07/20/16 21:11 Dose: 1 tab Tramadol HCl (Ultram -) 50 mg PO Q6H PRN PRN Reason: PAIN Last Admin: 07/20/16 21:11 Dose: 50 mg Zolpidem Tartrate (Ambien -) 10 mg PO HS PRN Last Admin: 07/17/16 21:48 Dose: 10 mg - Objective Vital Signs: Vital Signs Temperature 98.4 F 07/21/16 06:06 Pulse Rate 110 H 07/21/16 06:06 Respiratory Rate 20 07/21/16 06:06 Blood Pressure 148/86 07/21/16 06:06 O2 Sat by Pulse Oximetry (%) 98 07/20/16 21:00 Constitutional: Yes: Calm Neck: Yes: WNL Cardiovascular: Yes: WNL Respiratory: Yes: WNL Gastrointestinal: Yes: Tenderness. No: Tenderness, Rebound Edema: No Labs: CBC, BMP 07/20/16 05:40 07/20/16 05:40 INR, PTT INR 1.03 (0.82-1.09) 07/13/16 14:40 Problem List - Problems (1) CAD (coronary artery disease) Code(s): I25.10 - ATHSCL HEART DISEASE OF [place] CORONARY ARTERY W/O ANG PCTRS (2) COPD (chronic obstructive pulmonary disease) Code(s): J44.9 - CHRONIC OBSTRUCTIVE PULMONARY DISEASE, UNSPECIFIED Qualifiers : COPD type: chronic bronchitis Chronic bronchitis type: unspecified Qualified Code(s): J42 - Unspecified chronic bronchitis (3) Hyperglycemia Code(s): R73.9 - HYPERGLYCEMIA, UNSPECIFIED (4) Hypertension associated with diabetes Code(s): E11.59 - TYPE 2 DIABETES MELLITUS WITH OTH CIRCULATORY COMPLICATIONS I10 - ESSENTIAL (PRIMARY) HYPERTENSION (5) Bipolar II disorder Code(s): F31.81 - BIPOLAR II DISORDER (6) Hypertension Code(s): I10 - ESSENTIAL (PRIMARY) HYPERTENSION (7) Hypothyroidism Code(s): E03.9 - HYPOTHYROIDISM, UNSPECIFIED (8) Seizure disorder Code(s): G40.909 - EPILEPSY, UNSP, NOT INTRACTABLE, WITHOUT STATUS EPILEPTICUS Assessment/Plan (1) CAD (coronary artery disease) Code(s): I25.10 - ATHSCL HEART DISEASE OF [place] CORONARY ARTERY W/O ANG PCTRS (2) COPD (chronic obstructive pulmonary disease) Code(s): J44.9 - CHRONIC OBSTRUCTIVE PULMONARY DISEASE, UNSPECIFIED Qualifiers : COPD type: chronic bronchitis Chronic bronchitis type: unspecified Qualified Code(s): J42 - Unspecified chronic bronchitis (3) Chest pain at rest Code(s): R07.9 - CHEST PAIN, UNSPECIFIED (4) Dysarthria Code(s): R47.1 - DYSARTHRIA AND ANARTHRIA (5) Elevated liver enzymes Code(s): R74.8 - ABNORMAL LEVELS OF OTHER SERUM ENZYMES (6) Hyperglycemia Code(s): R73.9 - HYPERGLYCEMIA, UNSPECIFIED (7) Lactic acid acidosis Code(s): E87.2 - ACIDOSIS (8) Sepsis Code(s): A41.9 - SEPSIS, UNSPECIFIED ORGANISM (9) Severe sepsis Code(s): A41.9 - SEPSIS, UNSPECIFIED ORGANISM R65.20 - SEVERE SEPSIS WITHOUT SEPTIC SHOCK (10) Tobacco abuse Code(s): Z72.0 - TOBACCO USE (11) COPD exacerbation Code(s): J44.1 - CHRONIC OBSTRUCTIVE PULMONARY DISEASE W (ACUTE) EXACERBATION (12) Hypertension associated with diabetes Code(s): E11.59 - TYPE 2 DIABETES MELLITUS WITH OTH CIRCULATORY COMPLICATIONS I10 - ESSENTIAL (PRIMARY) HYPERTENSION (13) Pyelonephritis Code(s): N12 - TUBULO-INTERSTITIAL NEPHRITIS, NOT SPCF ACUTE OR CHRONIC (14) UTI (urinary tract infection) Code(s): N39.0 - URINARY TRACT INFECTION, SITE NOT SPECIFIED (15) Asthma Code(s): J45.909 - UNSPECIFIED ASTHMA, UNCOMPLICATED (16) Benzodiazepine dependence Code(s): F13.20 - SEDATIVE, HYPNOTIC OR ANXIOLYTIC DEPENDENCE, UNCOMPLICATED (17) Bipolar II disorder Code(s): F31.81 - BIPOLAR II DISORDER (18) Hepatitis C Code(s): B19.20 - UNSPECIFIED VIRAL HEPATITIS C WITHOUT HEPATIC COMA (19) Hypertension Code(s): I10 - ESSENTIAL (PRIMARY) HYPERTENSION (20) Nicotine dependence Code(s): F17.200 - NICOTINE DEPENDENCE, UNSPECIFIED, UNCOMPLICATED (21) Opioid dependence Code(s): F11.20 - OPIOID DEPENDENCE, UNCOMPLICATED (22) Seizure disorder Code(s): G40.909 - EPILEPSY, UNSP, NOT INTRACTABLE, WITHOUT STATUS EPILEPTICUS Assessment/Plan S/P SEIZURE APPRECIATE NEURO CONSULT PATIENT IS VERY UPSET ABOUT LOSING HER CAT. KEPPRA RESTARTED HYPERGLYCEMIA IMPROVED PREDNISONE INSULIN INCREASED/ENDO ON CASE IVF/O2 NEBS ADVAIR RESTARTED HOME NURSE SERVICE. PNEUMONIA/COPD/BRONCHOSPASTIC COMPONENT PRINCIPAL EXAMINER FM
[2016-07-21] MEDS: ALPRAZolam 0.25 MG TABLET PO SCH ×3 (07:04→21:26)
[2016-07-21] MEDS: INSULIN SLIDING SCALE (NOVOLOG) 1 VIAL SQ SCH ×4 (07:05→21:27)
[2016-07-21] MEDS: traMADol HCL 50 MG TABLET PO PRN ×2 (07:13→18:08)
[2016-07-21] MEDS ORDERED: PT OWN MED DRAWER 7, Y5N ONE ×2 (09:20→21:16)
[2016-07-21] MEDS: INSULIN (NOVOLOG MIX 70/30) 100 UNITS/ML MDV SQ SCH ×2 (09:27→18:11)
[2016-07-21] MEDS: FLUTICASONE/SALMETEROL 100 MCG/50 MCG DISKUS IH SCH ×2 (09:30→21:25)
[2016-07-21] MEDS: levETIRAcetam 500 MG TABLET (FP) PO SCH ×2 (09:32→21:27)
[2016-07-21] MEDS: predniSONE 10 MG TABLET (UD) PO SCH (09:32)
[2016-07-21] MEDS: NICOTINE 21 MG/24 HOURS TOPICAL PATCH TD SCH (09:32)
[2016-07-21] MEDS: ASPIRIN COATED 81 MG TABLET.EC PO SCH (09:32)
[2016-07-21] MEDS: LISINOPRIL 20 MG TABLET (FP) PO SCH (09:35)
[2016-07-21] MEDS: PANTOPRAZOLE SODIUM 100 ML IVPB SCH (09:35)
[2016-07-21] MEDS: cefTRIAXone 2 GM/100 ML BAG (PRE-DOCKED) IVPB SCH (09:36)
[2016-07-21] MEDS: SENNOSIDES 8.6MG TABLET (FP) PO SCH ×2 (09:36→21:28)
[2016-07-21] MEDS: AZITHROMYCIN 250 MG TABLET (FP) PO SCH (09:36)
[2016-07-21] MEDS: DULoxetine HCL 30 MG CAPSULE.DR (FP) PO SCH (09:39)
[2016-07-21] MEDS: oxyCODONE HCL 5 MG TABLET PO PRN (09:40)
[2016-07-21] MEDS ORDERED: INSULIN (NOVOLOG) ASPART 100 UNITS/ML 10ML VIAL ONE (11:23)
--- NOTE | 2016-07-21 13:43 | PN ---
Progress Note, Physician History of Present Illness: PULMONARY ALERT,FEELING BETTER,-SOB - Current Medication List Current Medications: Active Medications Albuterol/Ipratropium (Duoneb -) 1 amp NEB QIDR [facility] Last Admin: 07/21/16 12:00 Dose: 1 amp Alprazolam (Xanax -) 1 mg PO TID [facility] Last Admin: 07/21/16 07:04 Dose: 1 mg Aspirin (Ecotrin -) 81 mg PO DAILY [facility] Last Admin: 07/21/16 09:32 Dose: 81 mg Azithromycin (Zithromax -) 500 mg PO DAILY [facility] Last Admin: 07/21/16 09:36 Dose: 500 mg Diltiazem HCl (Cardizem Cd -) 120 mg PO DAILY [facility] Last Admin: 07/21/16 09:31 Dose: 120 mg Docusate Sodium (Colace -) 300 mg PO HS [facility] Last Admin: 07/20/16 21:10 Dose: 300 mg Duloxetine HCl (Cymbalta -) 60 mg PO DAILY [facility] Last Admin: 07/21/16 09:39 Dose: 60 mg Pantoprazole Sodium (Protonix 40mg Ivpb (Pre-Docked)) 100 mls @ 200 mls/hr IVPB DAILY [facility] Last Admin: 07/21/16 09:35 Dose: 200 mls/hr Insulin Aspart (Novolog Vial Sliding Scale -) 1 vial SQ ACHS [facility] PRN Reason: Protocol Last Admin: 07/21/16 11:28 Dose: 5 units Insulin Aspart (Novolog Mix 70/30 Vial) 40 units SQ BIDAC [facility] Last Admin: 07/21/16 09:27 Dose: 40 unit Levetiracetam (Keppra -) 500 mg PO BID [facility] Last Admin: 07/21/16 09:32 Dose: 500 mg Lisinopril (Prinivil) 20 mg PO DAILY [facility] Last Admin: 07/21/16 09:35 Dose: 20 mg Montelukast Sodium (Singulair -) 10 mg PO HS [facility] Last Admin: 07/20/16 21:11 Dose: 10 mg Nicotine (Nicoderm Patch -) 21 mg TD DAILY [facility] Last Admin: 07/21/16 09:32 Dose: 21 mg Oxycodone HCl (Roxicodone -) 5 mg PO Q6H PRN PRN Reason: PAIN Last Admin: 07/21/16 09:40 Dose: 5 mg Pramipexole Dihydrochloride (Mirapex -) 0.125 mg PO HS@20 [facility] Last Admin: 07/20/16 21:12 Dose: 0.125 mg Prednisone (Deltasone -) 10 mg PO DAILY [facility] Last Admin: 07/21/16 09:32 Dose: 10 mg Fluticasone/Salmeterol (Advair 100mcg/50mcg -) 1 puff IH BID [facility] Last Admin: 07/21/16 09:30 Dose: 1 inh Senna (Senna -) 1 tab PO BID [facility] Last Admin: 07/21/16 09:36 Dose: 1 tab Tramadol HCl (Ultram -) 50 mg PO Q6H PRN PRN Reason: PAIN Last Admin: 07/21/16 07:13 Dose: 50 mg Zolpidem Tartrate (Ambien -) 10 mg PO HS PRN Last Admin: 07/17/16 21:48 Dose: 10 mg - Objective Vital Signs: Vital Signs Temperature 98 F 07/21/16 10:00 Pulse Rate 85 07/21/16 10:00 Respiratory Rate 20 07/21/16 10:00 Blood Pressure 101/69 07/21/16 10:00 O2 Sat by Pulse Oximetry (%) 96 07/21/16 09:00 Constitutional: Yes: Well Nourished, Calm Eyes: Yes: WNL HENT: Yes: WNL Neck: Yes: WNL Cardiovascular: Yes: Regular Rate and Rhythm, S1, S2 Respiratory: Yes: Diminished Gastrointestinal: Yes: WNL Extremities: Yes: WNL Edema: No Assessment/Plan Problem List - Problems (1) CAD (coronary artery disease) Code(s): I25.10 - ATHSCL HEART DISEASE OF [place] CORONARY ARTERY W/O ANG PCTRS (2) COPD (chronic obstructive pulmonary disease) Code(s): J44.9 - CHRONIC OBSTRUCTIVE PULMONARY DISEASE, UNSPECIFIED Qualifiers : COPD type: chronic bronchitis Chronic bronchitis type: unspecified Qualified Code(s): J42 - Unspecified chronic bronchitis (3) Hyperglycemia Code(s): R73.9 - HYPERGLYCEMIA, UNSPECIFIED (4) Hypertension Code(s): I10 - ESSENTIAL (PRIMARY) HYPERTENSION (5) Hypothyroidism Code(s): E03.9 - HYPOTHYROIDISM, UNSPECIFIED (6) Nicotine dependence Code(s): F17.200 - NICOTINE DEPENDENCE, UNSPECIFIED, UNCOMPLICATED (7) Seizure disorder Code(s): G40.909 - EPILEPSY, UNSP, NOT INTRACTABLE, WITHOUT STATUS EPILEPTICUS (8) Vitamin D deficiency Code(s): E55.9 - VITAMIN D DEFICIENCY, UNSPECIFIED (9) Pneumonia Code(s): J18.9 - PNEUMONIA, UNSPECIFIED ORGANISM 10 GROUND GLASS NODULES Assessment/Plan Prednisone BD TX ABX BD TX O2 as needed No smoking Will need follow up CT imaging and possibly PET 4-6 WKS
--- NOTE | 2016-07-21 15:05 | PN ---
Progress Note, Physician History of Present Illness: Pt seen and examined at bedside. She is awake and alert. She took her oxygen off. She complains of weakness. - Current Medication List Current Medications: Active Medications Albuterol/Ipratropium (Duoneb -) 1 amp NEB QIDR [facility] Last Admin: 07/21/16 12:00 Dose: 1 amp Alprazolam (Xanax -) 1 mg PO TID [facility] Last Admin: 07/21/16 14:02 Dose: 1 mg Aspirin (Ecotrin -) 81 mg PO DAILY [facility] Last Admin: 07/21/16 09:32 Dose: 81 mg Diltiazem HCl (Cardizem Cd -) 120 mg PO DAILY [facility] Last Admin: 07/21/16 09:31 Dose: 120 mg Docusate Sodium (Colace -) 300 mg PO HS [facility] Last Admin: 07/20/16 21:10 Dose: 300 mg Duloxetine HCl (Cymbalta -) 60 mg PO DAILY [facility] Last Admin: 07/21/16 09:39 Dose: 60 mg Pantoprazole Sodium (Protonix 40mg Ivpb (Pre-Docked)) 100 mls @ 200 mls/hr IVPB DAILY [facility] Last Admin: 07/21/16 09:35 Dose: 200 mls/hr Insulin Aspart (Novolog Vial Sliding Scale -) 1 vial SQ ACHS [facility] PRN Reason: Protocol Last Admin: 07/21/16 11:28 Dose: 5 units Insulin Aspart (Novolog Mix 70/30 Vial) 40 units SQ BIDAC [facility] Last Admin: 07/21/16 09:27 Dose: 40 unit Levetiracetam (Keppra -) 500 mg PO BID [facility] Last Admin: 07/21/16 09:32 Dose: 500 mg Lisinopril (Prinivil) 20 mg PO DAILY [facility] Last Admin: 07/21/16 09:35 Dose: 20 mg Montelukast Sodium (Singulair -) 10 mg PO HS [facility] Last Admin: 07/20/16 21:11 Dose: 10 mg Nicotine (Nicoderm Patch -) 21 mg TD DAILY [facility] Last Admin: 07/21/16 09:32 Dose: 21 mg Pramipexole Dihydrochloride (Mirapex -) 0.125 mg PO HS@20 [facility] Last Admin: 07/20/16 21:12 Dose: 0.125 mg Prednisone (Deltasone -) 10 mg PO DAILY [facility] Last Admin: 07/21/16 09:32 Dose: 10 mg Fluticasone/Salmeterol (Advair 100mcg/50mcg -) 1 puff IH BID [facility] Last Admin: 07/21/16 09:30 Dose: 1 inh Senna (Senna -) 1 tab PO BID [facility] Last Admin: 07/21/16 09:36 Dose: 1 tab - Objective Vital Signs: Vital Signs Temperature 98 F 07/21/16 10:00 Pulse Rate 85 07/21/16 10:00 Respiratory Rate 20 07/21/16 10:00 Blood Pressure 101/69 07/21/16 10:00 O2 Sat by Pulse Oximetry (%) 96 07/21/16 09:00 Constitutional: Yes: Calm Eyes: Yes: Conjunctiva Clear HENT: Yes: Atraumatic Neck: Yes: Supple Cardiovascular: Yes: S1, S2 Respiratory: Yes: On Nasal O2, Wheezes Gastrointestinal: Yes: Soft, Abdomen, Obese Genitourinary: Yes: WNL Musculoskeletal: Yes: WNL Edema: No Neurological: Yes: Oriented Psychiatric: Yes: Oriented Labs: CBC, BMP 07/20/16 05:40 07/20/16 05:40 INR, PTT INR 1.03 (0.82-1.09) 07/13/16 14:40 Problem List - Problems (1) CAD (coronary artery disease) Code(s): I25.10 - ATHSCL HEART DISEASE OF [place] CORONARY ARTERY W/O ANG PCTRS (2) COPD (chronic obstructive pulmonary disease) Code(s): J44.9 - CHRONIC OBSTRUCTIVE PULMONARY DISEASE, UNSPECIFIED Qualifiers : COPD type: chronic bronchitis Chronic bronchitis type: unspecified Qualified Code(s): J42 - Unspecified chronic bronchitis (3) Pyelonephritis Code(s): N12 - TUBULO-INTERSTITIAL NEPHRITIS, NOT SPCF ACUTE OR CHRONIC (4) UTI (urinary tract infection) Code(s): N39.0 - URINARY TRACT INFECTION, SITE NOT SPECIFIED (5) Hepatitis C Code(s): B19.20 - UNSPECIFIED VIRAL HEPATITIS C WITHOUT HEPATIC COMA (6) Sepsis Code(s): A41.9 - SEPSIS, UNSPECIFIED ORGANISM (7) Lactic acid acidosis Code(s): E87.2 - ACIDOSIS Assessment/Plan Current Medications Generic Name Dose Route Start Last Admin Trade Name Saw PRN Reason Stop Dose Admin Albuterol/Ipratropium 1 amp 07/15/16 11:30 07/21/16 12:00 Duoneb - NEB 1 amp QIDR ILYA Administration Alprazolam 1 mg 07/16/16 10:30 07/21/16 14:02 Xanax - PO 1 mg TID ILYA Administration Aspirin 81 mg 07/18/16 10:00 07/21/16 09:32 Ecotrin - PO 81 mg DAILY IL[facility] Administration Diltiazem HCl 120 mg 07/16/16 14:30 07/21/16 09:31 Cardizem Cd - PO 120 mg DAILY [facility] Administration Docusate Sodium 300 mg 07/16/16 22:00 07/20/16 21:10 Colace - PO 300 mg HS IL[facility] Administration Duloxetine HCl 60 mg 07/17/16 12:30 07/21/16 09:39 Cymbalta - PO 60 mg DAILY [facility] Administration Pantoprazole Sodium 100 mls @ 200 mls/hr 07/21/16 10:00 07/21/16 09:35 Protonix 40mg Ivpb (Pre-Docked) IVPB 200 mls/hr DAILY [facility] Administration Insulin Aspart 1 vial 07/19/16 21:48 07/21/16 11:28 Novolog Vial Sliding Scale - SQ 5 units ACHS IL[facility] Administration Protocol Insulin Aspart 40 units 07/20/16 08:30 07/21/16 09:27 Novolog Mix 70/30 Vial SQ 40 unit BIDAC [facility] Administration Levetiracetam 500 mg 07/17/16 22:00 07/21/16 09:32 Keppra - PO 500 mg BID [facility] Administration Lisinopril 20 mg 07/16/16 14:30 07/21/16 09:35 Prinivil PO 20 mg DAILY [facility] Administration Montelukast Sodium 10 mg 07/17/16 22:00 07/20/16 21:11 Singulair - PO 10 mg HS ILYA Administration Nicotine 21 mg 07/15/16 11:30 07/21/16 09:32 Nicoderm Patch - TD 21 mg DAILY ILYA Administration Pramipexole Dihydrochloride 0.125 mg 07/18/16 20:00 07/20/16 21:12 Mirapex - PO 0.125 mg HS@20 ILYA Administration Prednisone 10 mg 07/19/16 10:00 07/21/16 09:32 Deltasone - PO 10 mg DAILY ILYA Administration Fluticasone/Salmeterol 1 puff 07/17/16 12:30 07/21/16 09:30 Advair 100mcg/50mcg - IH 1 inh BID ILYA Administration Senna 1 tab 07/17/16 22:00 07/21/16 09:36 Senna - PO 1 tab BID ILYA Administration Impression 1. sepsis 2. PNA 3. UTI 4. possible pyelo 5. COPD 6. Hep C 7. CAD 8. CHF Plan - check bmp - repeat lactic acid level - cont with oxygen and monitor pulse ox - steroids with taper - diuretics on hold Dr Post
[2016-07-21] MEDS ORDERED: oxyCODONE HCL 5 MG TABLET PO PRN (17:54)
[2016-07-21] MEDS: PRAMIPEXOLE DIHYDROCHLORIDE 0.125 MG TABLET PO SCH (21:26)
[2016-07-21] MEDS: MONTELUKAST NA 10 MG TABLET PO SCH (21:27)
[2016-07-21] MEDS: DOCUSATE SODIUM 100 MG CAPSULE (FP) PO SCH (21:27)
[2016-07-22] MEDS: ALPRAZolam 0.25 MG TABLET PO SCH (06:02)
[2016-07-22] MEDS: INSULIN (NOVOLOG MIX 70/30) 100 UNITS/ML MDV SQ SCH (06:02)
[2016-07-22] MEDS: INSULIN SLIDING SCALE (NOVOLOG) 1 VIAL SQ SCH (06:03)
[2016-07-22] MEDS: traMADol HCL 50 MG TABLET PO PRN (06:03)
--- NOTE | 2016-07-22 06:09 | DS ---
Physical Examination Vital Signs: Vital Signs Temperature 98.3 F 07/22/16 05:58 Pulse Rate 68 07/22/16 05:58 Respiratory Rate 16 07/22/16 05:58 Blood Pressure 123/74 07/22/16 05:58 O2 Sat by Pulse Oximetry (%) 94 L 07/21/16 21:00 Findings/Remarks: FEELS BETTER AMBULATING CONCERNED ABOUT "LOW" BS -> USED TO HAVING HIGH BS AGREED TO SNF FOR DM CONTROL/STR -> THEN SAID WANTS TO GO HOME Constitutional: Yes: Calm Neck: Yes: WNL Cardiovascular: Yes: WNL Respiratory: Yes: WNL Gastrointestinal: Yes: WNL Edema: LLE: Trace, RLE: Trace Labs: CBC, BMP 07/20/16 05:40 07/20/16 05:40 Discharge Summary Reason For Visit: URINARY TRACT INFECTION / SEVERE SEPSIS Current Active Problems CAD (coronary artery disease) (Acute) COPD (chronic obstructive pulmonary disease) (Acute) Chest pain at rest (Acute) Cocaine abuse (Acute) Dysarthria (Acute) Elevated liver enzymes (Acute) Hyperglycemia (Acute) Lactic acid acidosis (Acute) Pneumonia (Acute) Sepsis (Acute) Severe sepsis (Acute) Tobacco abuse (Acute) Hospital Course: (1) CAD (coronary artery disease) Code(s): I25.10 - ATHSCL HEART DISEASE OF [place] CORONARY ARTERY W/O ANG PCTRS (2) COPD (chronic obstructive pulmonary disease) Code(s): J44.9 - CHRONIC OBSTRUCTIVE PULMONARY DISEASE, UNSPECIFIED Qualifiers : COPD type: chronic bronchitis Chronic bronchitis type: unspecified Qualified Code(s): J42 - Unspecified chronic bronchitis (3) Chest pain at rest Code(s): R07.9 - CHEST PAIN, UNSPECIFIED (4) Dysarthria Code(s): R47.1 - DYSARTHRIA AND ANARTHRIA (5) Elevated liver enzymes Code(s): R74.8 - ABNORMAL LEVELS OF OTHER SERUM ENZYMES (6) Hyperglycemia Code(s): R73.9 - HYPERGLYCEMIA, UNSPECIFIED (7) Lactic acid acidosis Code(s): E87.2 - ACIDOSIS (8) Sepsis Code(s): A41.9 - SEPSIS, UNSPECIFIED ORGANISM (9) Severe sepsis Code(s): A41.9 - SEPSIS, UNSPECIFIED ORGANISM R65.20 - SEVERE SEPSIS WITHOUT SEPTIC SHOCK (10) Tobacco abuse Code(s): Z72.0 - TOBACCO USE (11) COPD exacerbation Code(s): J44.1 - CHRONIC OBSTRUCTIVE PULMONARY DISEASE W (ACUTE) EXACERBATION (12) Hypertension associated with diabetes Code(s): E11.59 - TYPE 2 DIABETES MELLITUS WITH OTH CIRCULATORY COMPLICATIONS I10 - ESSENTIAL (PRIMARY) HYPERTENSION (13) Pyelonephritis Code(s): N12 - TUBULO-INTERSTITIAL NEPHRITIS, NOT SPCF ACUTE OR CHRONIC (14) UTI (urinary tract infection) Code(s): N39.0 - URINARY TRACT INFECTION, SITE NOT SPECIFIED (15) Asthma Code(s): J45.909 - UNSPECIFIED ASTHMA, UNCOMPLICATED (16) Benzodiazepine dependence Code(s): F13.20 - SEDATIVE, HYPNOTIC OR ANXIOLYTIC DEPENDENCE, UNCOMPLICATED (17) Bipolar II disorder Code(s): F31.81 - BIPOLAR II DISORDER (18) Hepatitis C Code(s): B19.20 - UNSPECIFIED VIRAL HEPATITIS C WITHOUT HEPATIC COMA (19) Hypertension Code(s): I10 - ESSENTIAL (PRIMARY) HYPERTENSION (20) Nicotine dependence Code(s): F17.200 - NICOTINE DEPENDENCE, UNSPECIFIED, UNCOMPLICATED (21) Opioid dependence Code(s): F11.20 - OPIOID DEPENDENCE, UNCOMPLICATED (22) Seizure disorder Code(s): G40.909 - EPILEPSY, UNSP, NOT INTRACTABLE, WITHOUT STATUS EPILEPTICUS Assessment/Plan S/P SEIZURE APPRECIATE NEURO CONSULT PATIENT IS VERY UPSET ABOUT LOSING HER CAT. KEPPRA RESTARTED HYPERGLYCEMIA IMPROVED PREDNISONE INSULIN INCREASED/ENDO ON CASE NEBS MARIEAIR RESTARTED HOME NURSE SERVICE. PNEUMONIA/COPD/BRONCHOSPASTIC COMPONENT F/U LABS DISCHARGE -> F/U [facility] [employer] Condition: Stable - Instructions Referrals: Rc Pineda MD [Primary Care Provider] - Disposition: [facility] - Home Medications Comprehensive Discharge Medication List: Ambulatory Orders Albuterol Sulfate Inhaler - [Ventolin HFA Inhaler -] 2 inh PO Q4H PRN 11/06/14 Aspirin [[place] Aspirin] 81 mg PO DAILY 11/06/14 Gabapentin 300 mg PO TID 11/06/14 Hydroxyzine HCl 50 mg PO DAILY 11/06/14 Lisinopril/Hydrochlorothiazide [Lisinopril-Hctz 20-12.5 mg Tab] 1 each PO DAILY 11/06/14 Salmeterol/Fluticasone [Advair 100Mcg/50Mcg -] 1 inh PO BID 11/06/14 Sennosides [Senokot] 1 tab PO DAILY PRN 11/13/14 Diltiazem HCl [Diltiazem 24Hr Cd] 120 mg PO DAILY 12/21/14 Duloxetine HCl 60 mg PO DAILY 12/21/14 Famotidine [Pepcid -] 40 mg PO DAILY 12/21/14 Insulin Glargine,Hum.rec.anlog [Lantus (10mL VIAL) -] 70 units SQ AM 12/21/14 Insulin Lispro [Humalog] 0 unit SQ ASDIR PRN 12/21/14 Levetiracetam [Keppra] 500 mg PO BID 12/21/14 Montelukast Na [Singulair -] 10 mg PO DAILY PRN 12/21/14 Olmesartan Medoxomil [Benicar -] 20 mg PO DAILY 12/21/14 Tiotropium [place] [Spiriva] 18 mcg IH DAILY 12/21/14 Zolpidem Tartrate [Ambien] 10 mg PO DAILY 12/21/14 Alprazolam [Xanax] 1 mg PO TID 07/13/16 Tramadol HCl 100 mg PO TID 07/13/16
[2016-07-22] MEDS: ALBUTEROL SO4 2.5/IPRATROPIUM 0.5 INH SOL 3 ML VIAL.NEB. NEB SCH (07:49)
[2016-07-22 08:06] LABS: BASOPHIL 0.2 % (0-2.0); EOSINOPHIL 4.1 % (0-4.5); MCH 29.9 pg (25.7-33.7); MCHC 33.1 g/dl (32.0-36.0); MEAN CELL VOLUME 90.2 fl (80-96); MEAN PLT VOLUME 8.7 fl (7.5-11.1); PLATELET COUNT 296 K/MM3 (134-434); RDW 13.7 % (11.6-15.6); WHITE BLOOD COUNT 14.4 K/mm3 (4.0-10.0)
[2016-07-22 08:35] LABS: ALBUMIN 2.5 g/dl (3.4-5.0); ANION GAP 8 (8-16); CALCIUM 8.5 mg/dL (8.5-10.1); CO2 36 mmol/L (21-32); CREATININE 0.4 mg/dL (0.55-1.02); GLUCOSE,RANDOM 108 mg/dL (74-106); SGOT/AST 57 U/L (15-37); SGPT/ALT 56 U/L (12-78)
[2016-07-22 08:37] LABS: ALK PHOS 81 U/L (45-117); BILIRUBIN,TOTAL 0.6 mg/dL (0.2-1.0); TOT PROT 6.4 g/dl (6.4-8.2)
[2016-07-22] MEDS ORDERED: PT OWN MED DRAWER 7, Y5N ONE (09:22)
[2016-07-22] MEDS: FLUTICASONE/SALMETEROL 100 MCG/50 MCG DISKUS IH SCH (09:25)
[2016-07-22] MEDS: ASPIRIN COATED 81 MG TABLET.EC PO SCH (09:26)
[2016-07-22] MEDS: LISINOPRIL 20 MG TABLET (FP) PO SCH (09:26)
[2016-07-22] MEDS: SENNOSIDES 8.6MG TABLET (FP) PO SCH (09:26)
[2016-07-22] MEDS: DULoxetine HCL 30 MG CAPSULE.DR (FP) PO SCH (09:26)
[2016-07-22] MEDS: levETIRAcetam 500 MG TABLET (FP) PO SCH (09:26)
[2016-07-22] MEDS: NICOTINE 21 MG/24 HOURS TOPICAL PATCH TD SCH (09:27)
[2016-07-22] MEDS: predniSONE 10 MG TABLET (UD) PO SCH (09:27)
[2016-07-22] MEDS: PANTOPRAZOLE SODIUM 100 ML IVPB SCH (09:27)
[2016-07-22 11:30] VITALS: BP 111/57; PULSE 75; TEMP 98.2
--- NOTE | 2016-07-22 12:46 | PN ---
Progress Note, Physician History of Present Illness: Pt seen and examined at bedside. She feels much better today. She is out of bed and ambulating. - Objective Vital Signs: Vital Signs Temperature 98.2 F 07/22/16 09:00 Pulse Rate 75 07/22/16 09:00 Respiratory Rate 16 07/22/16 09:00 Blood Pressure 111/57 07/22/16 09:00 O2 Sat by Pulse Oximetry (%) 94 L 07/21/16 21:00 Constitutional: Yes: Calm Eyes: Yes: Conjunctiva Clear HENT: Yes: Atraumatic Neck: Yes: Supple Cardiovascular: Yes: S1, S2 Respiratory: Yes: CTA Bilaterally Gastrointestinal: Yes: Soft, Abdomen, Obese Genitourinary: Yes: WNL Musculoskeletal: Yes: WNL Edema: No Neurological: Yes: Oriented Psychiatric: Yes: Oriented Labs: CBC, BMP 07/22/16 06:20 07/22/16 06:20 INR, PTT INR 1.03 (0.82-1.09) 07/13/16 14:40 Problem List - Problems (1) CAD (coronary artery disease) Code(s): I25.10 - ATHSCL HEART DISEASE OF [place] CORONARY ARTERY W/O ANG PCTRS (2) COPD (chronic obstructive pulmonary disease) Code(s): J44.9 - CHRONIC OBSTRUCTIVE PULMONARY DISEASE, UNSPECIFIED Qualifiers : COPD type: chronic bronchitis Chronic bronchitis type: unspecified Qualified Code(s): J42 - Unspecified chronic bronchitis (3) Pyelonephritis Code(s): N12 - TUBULO-INTERSTITIAL NEPHRITIS, NOT SPCF ACUTE OR CHRONIC (4) UTI (urinary tract infection) Code(s): N39.0 - URINARY TRACT INFECTION, SITE NOT SPECIFIED (5) Hepatitis C Code(s): B19.20 - UNSPECIFIED VIRAL HEPATITIS C WITHOUT HEPATIC COMA (6) Sepsis Code(s): A41.9 - SEPSIS, UNSPECIFIED ORGANISM (7) Lactic acid acidosis Code(s): E87.2 - ACIDOSIS Assessment/Plan Laboratory Tests 07/22/16 07/22/16 06:20 06:20 Creatinine 0.4 L Lactic Acid 1.809 Impression 1. sepsis 2. PNA 3. UTI 4. possible pyelo 5. COPD 6. Hep C 7. CAD 8. CHF Plan - renal function stabilizing - will see pt in office - lactic acid level is improved. It was likely elevated secondary to hypoxia - can resume diuretics - cont steroid taper - discussed plan with pt Dr Post
== END 2016-07-22 11:30 | disposition home health service (06) | DRG 720 ==
LOC: JER 12:36 → JERBED 20:00 → J4S 07-14 18:04
PROVIDERS: ADMIT Family Medicine; ATTEND Family Medicine
DX: A41.9 Sepsis, unspecified organism (principal); E87.2 Acidosis; J18.9 Pneumonia, unspecified organism; I11.0 Hypertensive heart disease with heart failure; I50.9 Heart failure, unspecified; J44.9 Chronic obstructive pulmonary disease, unspecified; N20.0 Calculus of kidney; E55.9 Vitamin D deficiency, unspecified; J44.0 Chronic obstructive pulmonary disease with (acute) lower respiratory infection; E11.65 Type 2 diabetes mellitus with hyperglycemia; F11.20 Opioid dependence, uncomplicated; E87.1 Hypo-osmolality and hyponatremia; E66.01 Morbid (severe) obesity due to excess calories; R65.20 Severe sepsis without septic shock; I25.10 Atherosclerotic heart disease of native coronary artery without angina pectoris; E78.00 Pure hypercholesterolemia, unspecified; J45.909 Unspecified asthma, uncomplicated; Z79.4 Long term (current) use of insulin; B19.20 Unspecified viral hepatitis C without hepatic coma; N39.0 Urinary tract infection, site not specified; F31.9 Bipolar disorder, unspecified; G40.909 Epilepsy, unspecified, not intractable, without status epilepticus; Z91.5 Personal history of self-harm; F17.210 Nicotine dependence, cigarettes, uncomplicated; G25.81 Restless legs syndrome; Z91.11 Patient's noncompliance with dietary regimen; F14.10 Cocaine abuse, uncomplicated; R91.1 Solitary pulmonary nodule; Z68.37 Body mass index [BMI] 37.0-37.9, adult
CPT/HCPCS: 36415; 36600; 71010-TC; 71250-TC; 74176-TC; 76775-TC; 76856-TC; 80048; 80053; 81003; 81015; 82550; 82553; 82803; 83036; 83605; 83690; 83735; 84146; 84439; 84443; 84484; 85025; 85027; 85610; 85730; 86157; 87040; 87070; 87077; 87086; 87205; 87804; 87899; 93005; 93010; 94640; 97116-GP; 97161-GP; 99285-25

== ENCOUNTER 2017-04-22 20:06 | Emergency (ER) | payer OTHER ==
[2017-04-22 20:15] VITALS: BP 126/88; PULSE 99; TEMP 98.9; BMI 37.8
--- NOTE | 2017-04-22 20:18 | PDOC ---
Rapid Medical Evaluation Chief Complaint: Pain Time Seen by Provider: 04/22/17 20:12 Medical Evaluation: Allergies Allergy/AdvReac Type Severity Reaction Status Date / Time No Known Allergies Allergy Verified 04/22/17 20:12 04/22/17 20:14 The patient presents with a chief complaint of: Abdominal pain for 4 days. Pt. states that she feels constipated, however when she goes to the bathroom she has loose mucous filled stools. Denies fevers, chills, nausea vomiting. I have performed a brief in-person evaluation of this patient; Pertinent physical exam findings: Hyper tympanic, diffuse abdominal pain, distended I have ordered the following: CBC, CMP, PT/INR, Abdomen pelvis CT The patient will proceed to the ED for further evaluation.
[2017-04-22 21:43] LABS: BASO % 0.8 % (0-2.0); EOS % 2.2 % (0-4.5); HEMATOCRIT 44.7 % (32.4-45.2); HEMOGLOBIN 14.6 GM/dL (10.7-15.3); LYMPH % 29.3 % (8-40); MCHC 32.7 g/dl (32.0-36.0); MEAN CELL VOLUME 91.9 fl (80-96); MEAN PLT VOLUME 8.9 fl (7.5-11.1); MONO % 7.9 % (3.8-10.2); NEUT % 59.8 % (42.8-82.8); PLATELET COUNT 296 K/MM3 (134-434); RBC 4.86 M/mm3 (3.60-5.2); RDW 13.4 % (11.6-15.6); WHITE BLOOD COUNT 11.1 K/mm3 (4.0-10.0)
[2017-04-22 21:58] LABS: INR 0.99 (0.82-1.09); PROTHROMBIN TIME (PATIENT) 11.2 SEC (9.98-11.88)
[2017-04-22 22:12] LABS: ALBUMIN 3.1 g/dl (3.4-5.0); ANION GAP 2 (8-16); BILIRUBIN,TOTAL 0.7 mg/dL (0.2-1.0); BLOOD UREA NITROGEN 12 mg/dL (7-18); CALCIUM 8.3 mg/dL (8.5-10.1); CHLORIDE 99 mmol/L (98-107); CO2 35 mmol/L (21-32); CREATININE 0.7 mg/dL (0.55-1.02); GLUCOSE,RANDOM 292 mg/dL (74-106); POTASSIUM 4.5 mmol/L (3.5-5.1); SGOT/AST 22 U/L (15-37); SGPT/ALT 37 U/L (12-78); SODIUM 136 mmol/L (136-145); TOT PROT 7.6 g/dl (6.4-8.2)
[2017-04-22 22:13] LABS: ALK PHOS 100 U/L (45-117)
--- NOTE | 2017-04-22 22:56 | PDOC ---
History of Present Illness - General History Source: Patient Exam Limitations: No Limitations - History of Present Illness Initial Comments: 04/23/17 01:47 Patient is a 56 year old female with a significant past medical history of former IVDA, Former substance abuse, DM, HTN, Anxiety disorder, Depression, Chronic pain, Non-compliant with medication and lifestyle adjustments, COPD, who presents to the ED with complaints of diarrhea began 4 days ago. Patient reports experiencing sudden onset of loose watery mucous that she states occurs when she sits or coughs to violently. She reports experiencing chronic lower back pain since she received a epidural that she states initially radiated down her left leg but has begun to radiate down her right leg. Denies nausea, vomiting. Denies chest pain, SOB. Denies contact with sick individuals, out of state travels. Denies trauma to affected area. Denies any other symptoms. Allergies: None Social history; Current smoker. No alcohol. No illicit drugs. Surgical history: Herniated Disk surgery (3 year ago) PMD: Dr. Pineda. <Sina Torres - Last Filed: 04/23/17 01:47> <Constance Sen - Last Filed: 04/23/17 02:02> - General Chief Complaint: Pain Stated Complaint: PAIN Time Seen by Provider: 04/22/17 20:12 Past History <Sina Torres - Last Filed: 04/23/17 01:47> - Past Medical History Anemia: No Asthma: Yes Cancer: No Cardiac Disorders: Yes (STENT X 1) CVA: No COPD: Yes CHF: Yes Dementia: No Diabetes: Yes GI Disorders: No Disorders: No HTN: Yes Hypercholesterolemia: Yes Kidney Stones: Yes Liver Disease: Yes (cirrhosis, hep C) Psychiatric Problems: Yes (bipolar) Seizures: Yes (last episode 03/2013) Thyroid Disease: Yes - Surgical History Abdominal Surgery: No Appendectomy: Yes (age 11) Cardiac Surgery: Yes (STENT X 1) Cholecystectomy: No Lung Surgery: No Neurologic Surgery: No Orthopedic Surgery: Yes (lower back 02/2013) - Immunization History Td Vaccination: Yes - Suicide/Smoking/Psychosocial Hx Smoking Status: Yes Smoking History: Current every day smoker Have you smoked in the past 12 months: Yes Number of Cigarettes Smoked Daily: 20 Information on smoking cessation initiated: No 'Breaking Loose' booklet given: 07/14/16 Hx Alcohol Use: Yes Drug/Substance Use Hx: Yes Substance Use Type: Cocaine Hx Substance Use Treatment: Yes (detox) <Constance Sen - Last Filed: 04/23/17 02:02> - Past Medical History Allergies/Adverse Reactions: Allergies Allergy/AdvReac Type Severity Reaction Status Date / Time No Known Allergies Allergy Verified 04/22/17 20:12 Home Medications: Ambulatory Orders Albuterol Sulfate Inhaler - [Ventolin HFA Inhaler -] 2 inh PO Q4H PRN 11/06/14 Aspirin [[place] Aspirin] 81 mg PO DAILY 11/06/14 Salmeterol/Fluticasone [Advair 100Mcg/50Mcg -] 1 inh PO BID 11/06/14 Diltiazem HCl [Diltiazem 24Hr Cd] 120 mg PO DAILY 12/21/14 Duloxetine HCl 60 mg PO DAILY 12/21/14 Famotidine [Pepcid -] 40 mg PO DAILY 12/21/14 Levetiracetam [Keppra] 500 mg PO BID 12/21/14 Montelukast Na [Singulair -] 10 mg PO DAILY PRN 12/21/14 Tiotropium [place] [Spiriva] 18 mcg IH DAILY 12/21/14 Zolpidem Tartrate [Ambien] 10 mg PO DAILY 12/21/14 Alprazolam [Xanax] 1 mg PO TID 07/13/16 Tramadol HCl 100 mg PO TID 07/13/16 Alprazolam [Xanax] 1 mg PO TID #90 tablet MDD 3 07/22/16 Aspirin Coated [Ecotrin -] 81 mg PO DAILY #30 tab 07/22/16 Azithromycin [Zithromax -] 500 mg PO DAILY #10 tab 07/22/16 Diltiazem Cd [Cardizem Cd -] 120 mg PO DAILY #30 cap 07/22/16 Docusate Sodium [Colace -] 300 mg PO HS #90 cap MDD 3 07/22/16 Duloxetine HCl [Cymbalta -] 60 mg PO DAILY #60 cap 07/22/16 Insulin Aspart Prot/Insuln Asp [Novolog Mix 70-30 Flexpen Syrn] 35 unit SQ BID # 1 box 07/22/16 Levetiracetam [Keppra -] 500 mg PO BID tablet 07/22/16 Lisinopril [Prinivil] 20 mg PO DAILY #30 tablet 07/22/16 Montelukast Na [Singulair -] 10 mg PO HS #30 tablet 07/22/16 Nicotine Patch [Nicoderm Patch -] 21 mg TD DAILY #30 patch 07/22/16 Pramipexole Dihydrochloride [Mirapex -] 0.25 mg PO HS@20 #60 tablet 07/22/16 Prednisone 5 mg PO DAILY #11 tablet 07/22/16 Salmeterol/Fluticasone [Advair 100Mcg/50Mcg -] 1 puff IH BID #1 inhaler Sennosides [Senna -] 1 tab PO BID #60 tablet MDD 2 07/22/16 Alprazolam [Xanax] 1 mg PO Q8H PRN #0 tablet MDD 1 02/15/17 Ascorbic Acid [Vitamin C -] 500 mg PO BID #60 tablet 02/15/17 Diltiazem Cd [Cardizem Cd -] 120 mg PO DAILY cap 02/15/17 Docusate Sodium [Colace -] 300 mg PO HS #30 cap 02/15/17 Doxycycline Hyclate [Vibramycin -] 100 mg PO BID@1000,1800 #14 cap 02/15/17 Duloxetine HCl [Cymbalta -] 60 mg PO DAILY #30 cap 02/15/17 Ibuprofen [Motrin -] 400 mg PO Q6H PRN #90 tablet 02/15/17 Insulin (Levemir) [Levemir Flexpen -] 20 units SQ BID #4 pen 02/15/17 Insulin (Novolog) [Novolog Flexpen] 5 units SQ ACHS #4 pen 02/15/17 Levetiracetam [Keppra -] 500 mg PO BID tablet 02/15/17 Lisinopril [Prinivil] 20 mg PO DAILY #30 tablet 02/15/17 Metformin HCl [Glucophage -] 500 mg PO BID@0700,1630 #60 tablet 02/15/17 Montelukast Na [Singulair -] 10 mg PO HS #30 tablet 02/15/17 Multivitamins [Multivit ([facility] Formulary)] 1 tab PO DAILY #30 tab 02/15/17 Nicotine Patch [Nicoderm Patch -] 21 mg TD DAILY #30 patch 02/15/17 Oxycodone HCl [Roxicodone -] 5 mg PO QID PRN #0 tablet MDD 4 02/15/17 Pramipexole Dihydrochloride [Mirapex -] 0.25 mg PO HS #30 tablet 02/15/17 Ranitidine [Zantac -] 150 mg PO BID #60 tablet 02/15/17 Salmeterol/Fluticasone [Advair 100Mcg/50Mcg -] 1 puff IH BID #1 inhaler Sennosides [Senna -] 2 tab PO HS #60 tablet 02/15/17 Tiotropium [place] [Spiriva] 1 puff IH DAILY #1 inh 02/15/17 Zinc Sulfate [Orazinc -] 220 mg PO DAILY #30 cap 02/15/17 Zolpidem Tartrate [Ambien] 10 mg PO HS tablet MDD 1 02/15/17 Review of Systems - Review of Systems Able to Perform ROS?: Yes Comments:: 04/23/17 01:47 GENERAL/CONSTITUTIONAL: No fever or chills. No weakness. HEAD, EYES, EARS, NOSE AND THROAT: No change in vision. No ear pain or discharge. No sore throat. GASTROINTESTINAL: +Diarrhea. No nausea, vomiting, or constipation. GENITOURINARY: No dysuria, frequency, or change in urination. CARDIOVASCULAR: No chest pain or shortness of breath. RESPIRATORY: No cough, wheezing, or hemoptysis. MUSCULOSKELETAL: +Lower back pain +bilateral lower extremity pain. No joint or muscle swelling. No neck pain SKIN: No rash NEUROLOGIC: No headache, vertigo, loss of consciousness, or change in strength/ sensation. ENDOCRINE: No increased thirst. No abnormal weight change. HEMATOLOGIC/LYMPHATIC: No anemia, easy bleeding, or history of blood clots. ALLERGIC/IMMUNOLOGIC: No hives or skin allergy. All Other Systems: Reviewed and Negative <Sina Torres - Last Filed: 04/23/17 01:47> *Physical Exam - Vital Signs Last Vital Signs Temp Pulse Resp BP Pulse Ox 98.9 F 99 H 20 126/88 98 04/22/17 20:12 04/22/17 20:12 04/22/17 20:12 04/22/17 20:12 04/22/17 20:12 - Physical Exam Comments: 04/23/17 01:47 GENERAL: Awake, alert, and fully oriented, in no acute distress HEAD: No signs of trauma EYES: PERRLA, EOMI, sclera anicteric, conjunctiva clear ENT: Auricles normal inspection, hearing grossly normal, nares patent, oropharynx clear without exudates. Moist mucosa NECK: Normal ROM, supple, no lymphadenopathy, JVD, or masses LUNGS: +diffuse wheezing. Breath sounds equal, clear to auscultation bilaterally. No wheezes, and no crackles HEART: +tachycardic. Regular rate and rhythm, normal S1 and S2, no murmurs, rubs or gallops ABDOMEN: +diffusely tender. Soft, normoactive bowel sounds. No guarding, no rebound. No masses EXTREMITIES: Normal range of motion, no edema. No clubbing or cyanosis. No cords, erythema, or tenderness NEUROLOGICAL: +Genital sensation intact. +Lower extremity sensation intact. Cranial nerves II through XII grossly intact. Normal speech, normal gait SKIN: Warm, Dry, normal turgor, no rashes or lesions noted. <Sina Torres - Last Filed: 04/23/17 01:47> - Vital Signs Last Vital Signs Temp Pulse Resp BP Pulse Ox 98.9 F 99 H 20 126/88 98 04/22/17 20:12 04/22/17 20:12 04/22/17 20:12 04/22/17 20:12 04/22/17 20:12 <Constance Sen - Last Filed: 04/23/17 02:02> Heart Score/ECG Review - ECG Intrepretation Comment:: 04/23/17 01:50 sinus at 97, nl axis, nl interval, q waves anteriorly that are age indeterminate <Constance Sen - Last Filed: 04/23/17 02:02> ED Treatment Course - LABORATORY CBC & Chemistry Diagram: 04/22/17 21:25 04/22/17 21:25 - ADDITIONAL ORDERS Additional order review: Laboratory Results 04/22/17 04/22/17 04/22/17 23:59 23:59 23:59 PT with INR INR Sodium Potassium Chloride Carbon Dioxide Anion Gap BUN Creatinine Creat Clearance w eGFR Random Glucose Lactic Acid 1.2 Calcium Magnesium 1.8 Total Bilirubin AST ALT Alkaline Phosphatase Total Protein Albumin Lipase 74 Urine Color Green Urine Appearance Clear Urine pH 6.0 Ur Specific Jbphh 1.025 Urine Protein 2+ H Urine Glucose (UA) 3+ H D Urine Ketones Negative Urine Blood Negative Urine Nitrite Negative Urine Bilirubin Negative Urine Urobilinogen Negative Ur Leukocyte Esterase Negative 04/22/17 04/22/17 21:25 21:25 PT with INR 11.20 INR 0.99 Sodium 136 Potassium 4.5 Chloride 99 Carbon Dioxide 35 H Anion Gap 2 L BUN 12 Creatinine 0.7 Creat Clearance w eGFR > 60 Random Glucose 292 H Lactic Acid Calcium 8.3 L Magnesium Total Bilirubin 0.7 D AST 22 D ALT 37 D Alkaline Phosphatase 100 Total Protein 7.6 Albumin 3.1 L Lipase Urine Color Urine Appearance Urine pH Ur Specific Jbphh Urine Protein Urine Glucose (UA) Urine Ketones Urine Blood Urine Nitrite Urine Bilirubin Urine Urobilinogen Ur Leukocyte Esterase 04/22/17 21:25 RBC 4.86 MCV 91.9 MCHC 32.7 RDW 13.4 MPV 8.9 Neutrophils % 59.8 Lymphocytes % 29.3 Monocytes % 7.9 Eosinophils % 2.2 Basophils % 0.8 - Medications Given in the ED: ED Medications Discontinued Medications Generic Name Dose Route Start Last Admin Trade Name Saw PRN Reason Stop Dose Admin Albuterol/Ipratropium 1 amp 04/22/17 23:09 04/23/17 00:29 Duoneb - NEB 04/22/17 23:10 1 amp ONCE ONE Administration Levetiracetam 1,000 mg 04/23/17 00:00 04/23/17 00:47 Keppra Injection - IVPB 04/23/17 00:01 1,000 mg ONCE ONE Administration Metoclopramide HCl 10 mg 04/22/17 23:09 04/23/17 00:31 Reglan Injection - IVPUSH 04/22/17 23:10 10 mg ONCE ONE Administration Morphine Sulfate 4 mg 04/22/17 23:09 04/23/17 00:29 Morphine Injection - IVPUSH 04/22/17 23:10 4 mg ONCE ONE Administration Ondansetron HCl 4 mg 04/22/17 23:09 04/23/17 00:31 Zofran Injection IVPUSH 04/22/17 23:10 4 mg ONCE ONE Administration Sodium Chloride 1,000 ml 04/22/17 23:09 04/23/17 00:30 Normal Saline - IV 04/22/17 23:10 1,000 ml ONCE ONE Administration <Sina Torres - Last Filed: 04/23/17 01:47> - LABORATORY CBC & Chemistry Diagram: 04/22/17 21:25 04/22/17 21:25 - ADDITIONAL ORDERS Additional order review: Laboratory Results 04/22/17 21:25 Sodium 136 Potassium 4.5 Chloride 99 Carbon Dioxide 35 H Anion Gap 2 L BUN 12 Creatinine 0.7 Creat Clearance w eGFR > 60 Random Glucose 292 H Calcium 8.3 L Total Bilirubin 0.7 D AST 22 D ALT 37 D Alkaline Phosphatase 100 Total Protein 7.6 Albumin 3.1 L 04/22/17 21:25 RBC 4.86 MCV 91.9 MCHC 32.7 RDW 13.4 MPV 8.9 Neutrophils % 59.8 Lymphocytes % 29.3 Monocytes % 7.9 Eosinophils % 2.2 Basophils % 0.8 <Constance Sen - Last Filed: 04/23/17 02:02> Medical Decision Making - Medical Decision Making 04/22/17 23:27 a/p: 56yo female with diffuse abd pain and diarrhea -mucousy stool -no recent abx -no cough no cp/sob will check labs, ekg, cxr, ct abd/pelvis poss colitis as cause of diarrhea will give ivf hydration and pain control neuro intact recent epidrual injection, no ttp over midline in back, no redness or erythema, no drainage, sensation intact to genital region, no caude equina 04/23/17 00:13 pt with seizure activity in the ED currently resolved will check keppra level and reload keppra 04/23/17 01:50 pt will be signed out to the oncoming ed physician pending CT abd/pelvis <Constance Sen - Last Filed: 04/23/17 02:02> *DC/Admit/Observation/Transfer - Attestations Scribe Attestion: 04/23/17 01:47 Documentation prepared by Sina Torres, acting as electromedical service engineer for Constance Sen DO, MD/. <Sina Torres - Last Filed: 04/23/17 01:47> - Attestations Physician Attestion: 04/23/17 02:02 I, Dr. Constance Sen, DO, attest that this document has been prepared under my direction and personally reviewed by me in its entirety. I further attest, that it accurately reflects all work, treatment, procedures and medical decision -making performed by me. <Constance Sen - Last Filed: 04/23/17 02:02> Diagnosis at time of Disposition: Seizure disorder, COPD exacerbation, Diarrhea, Pain - Referrals Referrals: Rc Pineda MD [Primary Care Provider] - - Patient Instructions - Post Discharge Activity
[2017-04-22] MEDS ORDERED: morphine CARPU-JECT 4 MG/1 ML DISP.SYRIN IVPUSH ONE (23:09)
[2017-04-22] MEDS ORDERED: ALBUTEROL SO4 2.5/IPRATROPIUM 0.5 INH SOL 3 ML VIAL.NEB. NEB ONE ×2 (23:09→23:21)
[2017-04-22] MEDS ORDERED: SODIUM CHLORIDE 0.9% 1000 ML INFUS.BAG IV ONE (23:09)
[2017-04-22] MEDS ORDERED: METOCLOPRAMIDE HCL INJECTION 10 MG/2 ML VIAL IVPUSH ONE (23:09)
[2017-04-22] MEDS ORDERED: ONDANSETRON 4 MG/2 ML VIAL IVPUSH ONE (23:09)
[2017-04-22] MEDS ORDERED: METOCLOPRAMIDE HCL INJECTION 10 MG/2 ML VIAL ONE (23:21)
[2017-04-22] MEDS ORDERED: morphine CARPU-JECT 10 MG/1 ML DISP.SYRIN ONE (23:21)
[2017-04-22] MEDS ORDERED: ONDANSETRON 4 MG/2 ML VIAL ONE (23:22)
[2017-04-23] MEDS ORDERED: levETIRAcetam 500 MG/5 ML INJECTION VIAL IVPB ONE
[2017-04-23 00:59] LABS: URINE APPEARANCE CLEAR; URINE BILIRUBIN NEGATIVE (NEGATIVE); URINE BLOOD NEGATIVE (NEGATIVE); URINE COLOR GREEN; URINE GLUCOSE (UA) 3+ (NEGATIVE); URINE KETONE NEGATIVE (NEGATIVE); URINE LEUK ESTERASE NEGATIVE (NEGATIVE); URINE NITRITE NEGATIVE (NEGATIVE); URINE UROBILINOGEN NEGATIVE mg/dL (0.2-1.0)
[2017-04-23 01:02] LABS: URINE PROTEIN 2+ (NEGATIVE)
[2017-04-23 01:12] LABS: MAGNESIUM 1.8 mg/dL (1.8-2.4)
[2017-04-23 02:06] LABS: EPI CELLS RARE /HPF (FEW); URINE MUCUS RARE
[2017-04-23] MEDS ORDERED: metroNIDAZOLE 250 MG TABLET PO ONE (02:36)
[2017-04-23] MEDS ORDERED: LEVOFLOXACIN 500 MG TABLET (FP) PO ONE (02:36)
[2017-04-23] MEDS ORDERED: IBUPROFEN 400 MG TABLET (FP) PO ONE (02:38)
--- NOTE | 2017-04-23 02:39 | PDOC ---
*Physical Exam - Vital Signs Last Vital Signs Temp Pulse Resp BP Pulse Ox 98.9 F 99 H 20 126/88 98 04/22/17 20:12 04/22/17 20:12 04/22/17 20:12 04/22/17 20:12 04/22/17 20:12 ED Treatment Course - LABORATORY CBC & Chemistry Diagram: 04/22/17 21:25 04/22/17 21:25 - ADDITIONAL ORDERS Additional order review: Laboratory Results 04/22/17 04/22/17 04/22/17 23:59 23:59 23:59 PT with INR INR Sodium Potassium Chloride Carbon Dioxide Anion Gap BUN Creatinine Creat Clearance w eGFR Random Glucose Lactic Acid 1.2 Calcium Magnesium 1.8 Total Bilirubin AST ALT Alkaline Phosphatase Total Protein Albumin Lipase 74 Urine Color Green Urine Appearance Clear Urine pH 6.0 Ur Specific [place] 1.025 Urine Protein 2+ H Urine Glucose (UA) 3+ H D Urine Ketones Negative Urine Blood Negative Urine Nitrite Negative Urine Bilirubin Negative Urine Urobilinogen Negative Ur Leukocyte Esterase Negative 04/22/17 04/22/17 21:25 21:25 PT with INR 11.20 INR 0.99 Sodium 136 Potassium 4.5 Chloride 99 Carbon Dioxide 35 H Anion Gap 2 L BUN 12 Creatinine 0.7 Creat Clearance w eGFR > 60 Random Glucose 292 H Lactic Acid Calcium 8.3 L Magnesium Total Bilirubin 0.7 D AST 22 D ALT 37 D Alkaline Phosphatase 100 Total Protein 7.6 Albumin 3.1 L Lipase Urine Color Urine Appearance Urine pH Ur Specific [place] Urine Protein Urine Glucose (UA) Urine Ketones Urine Blood Urine Nitrite Urine Bilirubin Urine Urobilinogen Ur Leukocyte Esterase 04/22/17 21:25 RBC 4.86 MCV 91.9 MCHC 32.7 RDW 13.4 MPV 8.9 Neutrophils % 59.8 Lymphocytes % 29.3 Monocytes % 7.9 Eosinophils % 2.2 Basophils % 0.8 - Medications Given in the ED: ED Medications Discontinued Medications Generic Name Dose Route Start Last Admin Trade Name Freq PRN Reason Stop Dose Admin Albuterol/Ipratropium 1 amp 04/22/17 23:09 04/23/17 00:29 Duoneb - NEB 04/22/17 23:10 1 amp ONCE ONE Administration Levetiracetam 1,000 mg 04/23/17 00:00 04/23/17 00:47 Keppra Injection - IVPB 04/23/17 00:01 1,000 mg ONCE ONE Administration Metoclopramide HCl 10 mg 04/22/17 23:09 04/23/17 00:31 Reglan Injection - IVPUSH 04/22/17 23:10 10 mg ONCE ONE Administration Morphine Sulfate 4 mg 04/22/17 23:09 04/23/17 00:29 Morphine Injection - IVPUSH 04/22/17 23:10 4 mg ONCE ONE Administration Ondansetron HCl 4 mg 04/22/17 23:09 04/23/17 00:31 Zofran Injection IVPUSH 04/22/17 23:10 4 mg ONCE ONE Administration Sodium Chloride 1,000 ml 04/22/17 23:09 04/23/17 00:30 Normal Saline - IV 04/22/17 23:10 1,000 ml ONCE ONE Administration *DC/Admit/Observation/Transfer Diagnosis at time of Disposition: Seizure disorder, COPD exacerbation, Diarrhea, Pain, Colitis - Discharge Dispostion Disposition: HOME Condition at time of disposition: Stable Admit: No - Prescriptions Prescriptions: Ibuprofen 800 mg PO TID #30 tablet Levofloxacin [Levaquin -] 500 mg PO DAILY #7 tablet Metronidazole [Flagyl -] 500 mg PO BID #14 tablet - Referrals Referrals: Rc Pineda MD [Primary Care Provider] - - Patient Instructions Printed Discharge Instructions: DI for Colitis, [place] Diet - Post Discharge Activity
[2017-04-23] MEDS ORDERED: LEVOFLOXACIN 500 MG TABLET (FP) ONE (02:54)
[2017-04-23] MEDS ORDERED: metroNIDAZOLE 250 MG TABLET ONE (02:54)
[2017-04-23] MEDS ORDERED: IBUPROFEN 600 MG TABLET (FP) PO ONE (02:54)
--- NOTE | 2017-04-23 10:00 | EKG ---
Test Reason : Blood Pressure : / mmHG Vent. Rate : 097 BPM Atrial Rate : 097 BPM P-R Int : 184 ms QRS Dur : 074 ms QT Int : 330 ms P-R-T Axes : 070 062 036 degrees QTc Int : 419 ms NORMAL SINUS RHYTHM POSSIBLE LEFT ATRIAL ENLARGEMENT BORDERLINE ECG WHEN COMPARED WITH ECG OF 08-FEB-2017 16:57, NO SIGNIFICANT CHANGE WAS FOUND Confirmed by MD JACK, PARVEEN ([id number]) on 04/23/2017 10:00:10 AM Referred By: Confirmed By:PARVEEN SANTIAGO MD
== END 2017-04-23 02:59 | disposition home or self-care (01) ==
LOC: JER 20:06
PROC: 3E033NZ Introduction of Analgesics, Hypnotics, Sedatives into Peripheral Vein, Percutaneous Approach (ICD-10-PCS; principal; 2017-04-22)
PROC: 3E033GC Introduction of Other Therapeutic Substance into Peripheral Vein, Percutaneous Approach (ICD-10-PCS; 2017-04-22)
PROC: 3E033GC Introduction of Other Therapeutic Substance into Peripheral Vein, Percutaneous Approach (ICD-10-PCS; 2017-04-22)
DX: G40.909 Epilepsy, unspecified, not intractable, without status epilepticus (principal); I10 Essential (primary) hypertension; E11.9 Type 2 diabetes mellitus without complications; Z79.4 Long term (current) use of insulin; J44.1 Chronic obstructive pulmonary disease with (acute) exacerbation; K52.9 Noninfective gastroenteritis and colitis, unspecified; F41.9 Anxiety disorder, unspecified; F31.9 Bipolar disorder, unspecified; F17.210 Nicotine dependence, cigarettes, uncomplicated; Z95.5 Presence of coronary angioplasty implant and graft
CPT/HCPCS: 36415; 71045-TC; 74176-TC; 80053; 81003; 81015; 83605; 83690; 83735; 85025; 85610; 93005; 93010; 99282-25

== ENCOUNTER 2017-05-12 16:50 | Inpatient (IN) | payer OTHER ==
--- NOTE | 2017-05-12 17:19 | PDOC ---
Rapid Medical Evaluation Time Seen by Provider: 05/12/17 17:16 Medical Evaluation: Allergies Allergy/AdvReac Type Severity Reaction Status Date / Time No Known Allergies Allergy Verified 04/22/17 20:12 05/12/17 17:18 I have performed a brief in-person evaluation of this patient. The patient presents with a chief complaint of: Sent in by Dr Pineda for admission for persistent abd pain and diarrhea. Seen in ED 04/22/17 and dx w/ colitis, completed flagyl/cipro. Saw Dr Sandhu 05/[address] Pineda today/ H/ o DM, HTN, anxiety, depression, chronic pain, former IVDA Pertinent physical exam findings:Mildly tachy and sating 94% on RA w/ clear chest/lungs otherwise and diffuse ttp to abd I have ordered the following:Labs The patient will proceed to the ED for further evaluation. 05/12/17 17:23 05/12/17 17:24
--- NOTE | 2017-05-12 17:43 | PDOC ---
History of Present Illness - General Chief Complaint: Pain, Acute Stated Complaint: PCP SENT Time Seen by Provider: 05/12/17 17:16 - History of Present Illness Initial Comments: 05/12/17 17:43 56 yo F with h/o /o NIDDM, HTN, anxiety, depression, chronic pain, former IVDA referred by PMD Dr. Pineda to be admitted for persistent abd pain/diarrhea. Pt. recently dx. w/ colitis at [facility] (04/22/17). Completed cipro flagyl and last seen by Dr. Sandhu 05/[address] Pineda earlier today ( 05/12). Continues to have loose mucoid stools, and rectal discharge. Endorses diffuse crampy abdominal pain with no alleviating factors, and nausea without vomitting. +SOB. Denies BPR , F/C, CP, cough, palpitations, urinary complaints, sensory changes, lightheadedness. Patient compliant with current antibiotic regimen. Past History - Past Medical History Allergies/Adverse Reactions: Allergies Allergy/AdvReac Type Severity Reaction Status Date / Time No Known Allergies Allergy Verified 05/12/17 17:19 Home Medications: Ambulatory Orders Albuterol Sulfate Inhaler - [Ventolin HFA Inhaler -] 2 inh PO Q4H PRN 11/06/14 Duloxetine HCl 60 mg PO DAILY 12/21/14 Famotidine [Pepcid -] 40 mg PO DAILY 12/21/14 Tiotropium [place] [Spiriva] 18 mcg IH DAILY 12/21/14 Alprazolam [Xanax] 1 mg PO TID 07/13/16 Tramadol HCl 100 mg PO TID 07/13/16 Aspirin Coated [Ecotrin -] 81 mg PO DAILY #30 tab 07/22/16 Diltiazem Cd [Cardizem Cd -] 120 mg PO DAILY #30 cap 07/22/16 Insulin Aspart Prot/Insuln Asp [Novolog Mix 70-30 Flexpen Syrn] 35 unit SQ BID # 1 box 07/22/16 Levetiracetam [Keppra -] 500 mg PO BID tablet 07/22/16 Lisinopril [Prinivil] 20 mg PO DAILY #30 tablet 07/22/16 Montelukast Na [Singulair -] 10 mg PO HS #30 tablet 07/22/16 Ascorbic Acid [Vitamin C -] 500 mg PO BID #60 tablet 02/15/17 Docusate Sodium [Colace -] 300 mg PO HS #30 cap 02/15/17 Doxycycline Hyclate [Vibramycin -] 100 mg PO BID@1000,1800 #14 cap 02/15/17 Insulin (Levemir) [Levemir Flexpen -] 20 units SQ BID #4 pen 02/15/17 Insulin (Novolog) [Novolog Flexpen] 5 units SQ ACHS #4 pen 02/15/17 Metformin HCl [Glucophage -] 500 mg PO BID@0700,1630 #60 tablet 02/15/17 Montelukast Na [Singulair -] 10 mg PO HS #30 tablet 02/15/17 Oxycodone HCl [Roxicodone -] 5 mg PO QID PRN #0 tablet MDD 4 02/15/17 Pramipexole Dihydrochloride [Mirapex -] 0.25 mg PO HS #30 tablet 02/15/17 Ranitidine [Zantac -] 150 mg PO BID #60 tablet 02/15/17 Salmeterol/Fluticasone [Advair 100Mcg/50Mcg -] 1 puff IH BID #1 inhaler Sennosides [Senna -] 2 tab PO HS #60 tablet 02/15/17 Zolpidem Tartrate [Ambien] 10 mg PO HS tablet MDD 1 02/15/17 Ibuprofen 800 mg PO TID #30 tablet 04/23/17 Anemia: No Asthma: Yes Cancer: No Cardiac Disorders: Yes (STENT X 1) CVA: No COPD: Yes CHF: Yes Dementia: No Diabetes: Yes GI Disorders: No Disorders: No HTN: Yes Hypercholesterolemia: Yes Kidney Stones: Yes Liver Disease: Yes (cirrhosis, hep C) Psychiatric Problems: Yes (bipolar) Seizures: Yes (last episode 03/2013) Thyroid Disease: Yes - Surgical History Abdominal Surgery: No Appendectomy: Yes (age 11) Cardiac Surgery: Yes (STENT X 1) Cholecystectomy: No Lung Surgery: No Neurologic Surgery: No Orthopedic Surgery: Yes (lower back 02/2013) - Immunization History Td Vaccination: Yes - Suicide/Smoking/Psychosocial Hx Smoking Status: Yes Smoking History: Current every day smoker Have you smoked in the past 12 months: Yes Number of Cigarettes Smoked Daily: 20 Information on smoking cessation initiated: No 'Breaking Loose' booklet given: 07/14/16 Hx Alcohol Use: No Drug/Substance Use Hx: No Substance Use Type: Cocaine Hx Substance Use Treatment: Yes (detox) Review of Systems - Review of Systems Comments:: 05/12/17 17:39 GENERAL/CONSTITUTIONAL: No fever or chills. No weakness. HEAD, EYES, EARS, NOSE AND THROAT: No change in vision. No ear pain or discharge. No sore throat.- CARDIOVASCULAR: +SOB. No chest pain. RESPIRATORY: No cough, wheezing, or hemoptysis. GASTROINTESTINAL: + nausea and diarrhea. No vomiting, or constipation. GENITOURINARY: No dysuria, frequency, or change in urination. MUSCULOSKELETAL: No joint or muscle swelling or pain. No neck or back pain. SKIN: No rash NEUROLOGIC: No headache, vertigo, loss of consciousness, or change in strength/ sensation. ENDOCRINE: No increased thirst. No abnormal weight change HEMATOLOGIC/LYMPHATIC: No anemia, easy bleeding, or history of blood clots. ALLERGIC/IMMUNOLOGIC: No hives or skin allergy. *Physical Exam - Vital Signs Last Vital Signs Temp Pulse Resp BP Pulse Ox 98.6 F 102 H 18 128/84 94 L 05/12/17 17:19 05/12/17 17:19 05/12/17 17:19 05/12/17 17:19 05/12/17 17:19 - Physical Exam Comments: 05/12/17 17:39 GENERAL: Awake, alert, and fully oriented, in no acute distress HEAD: No signs of trauma, normocephalic, atraumatic EYES: PERRLA, EOMI, sclera anicteric, conjunctiva clear ENT: Hearing grossly normal, nares patent, oropharynx clear without exudates. Moist mucosa NECK: Normal ROM, no JVD, or masses LUNGS: No distress, speaks full sentences, clear to auscultation bilaterally HEART: Regular rate and rhythm, normal S1 and S2, no murmurs, rubs or gallops, peripheral pulses normal and equal bilaterally. ABDOMEN: Soft, diffusely ttp, normoactive bowel sounds. No guarding, no rebound. No masses. Neg rigidity. Neg CVA ttp, or suprpaubic ttp. EXTREMITIES : Normal inspection, Normal range of motion, no edema. No clubbing or cyanosis. SKIN: Warm, Dry, normal turgor, no rashes or lesions noted. ED Treatment Course - LABORATORY CBC & Chemistry Diagram: 05/12/17 18:00 05/12/17 18:00 Medical Decision Making - Medical Decision Making 05/12/17 17:58 56 yo F with h/o /o NIDDM, HTN, anxiety, depression, chronic pain, former IVDA referred by PMD Dr. Pineda to be admitted for persistent abd pain/diarrhea, described as loose mucoid stools. Pt. recently dx. w/ colitis at [facility] (04/22/17) . Completed cipro flagyl. Endorses diffuse crampy abdominal pain, fecal incontinence, and nausea without vomiting. Denies BPR, F/C, CP, cough, palpitations, urinary complaints, sensory changes, lightheadedness. Patient compliant with current antibiotic regimen. Physical exam noteable for diffuse abdominal ttp. Mildly tachycardic~102. Patient s/s concerning for persistent colitis. Will obtain imaging to r/o complications/ abscess formation. ED Course: CBC, CMP, UA, Lipase Tylenol, Zofran, Famotidine, Morphine, NS 05/12/17 18:[address] AP W/CON
--- NOTE | 2017-05-12 18:06 | PDOC ---
Attending Attestation - [facility] HPI: 05/12/17 18:40 The patient is a 56 year old female, with a significant past medical history of diabetes, hypertension, chronic pain, former IV drug use, anxiety, depression, and recent colitis(treated with Ciprofloxacin and Flagyl on 04/22/17), who presents to the emergency department with diffuse abdominal pain for approximately 2.5 weeks. Patient reports completing her Cipro/Flagyl treatment and following up with Dr. Sandhu(on 05/03/17) and Dr. Pineda earlier today. Patient reports her abdominal pain has been worsening over the past 48 hours, and reports it is crampy in nature. She reports associated nausea, vomiting( nonbloody/nonbilious), and loose mucousy diarrhea. Patient reports her stools float on the toilet bowl and are foul smelling. She denies any recent fever or chills. She reports dysuria and urinary frequency, but denies any hematuria or urgency. - Physicial Exam PE: 05/12/17 18:56 Constitutional: Awake, alert, oriented. No acute distress. Head: Normocephalic. Atraumatic Eyes: PERRL. EOMI. Conjunctivae are not pale. ENT: Mucous membranes are moist and intact. Posterior pharynx without exudates or erythema. Uvula midline. Neck: Supple. Full ROM. No lymphadenopathy. Cardiovascular: Tachycardic. Regular rhythm. S1, S2 regular. Distal pulses are 2+ and symmetric. Pulmonary/Chest: Dry nonproductive cough. Clear to auscultation bilaterally No wheezing, rales or rhonchi. Abdominal: Moderate tenderness to the LUQ, LLQ, and across the epigastrum. Voluntary guarding. Soft and non-distended. No rebound or rigidity. No organomegaly. No palpable masses. Good bowel sounds. Back: No CVA tenderness. Musculoskeletal: No edema. No cyanosis. No clubbing. Full range of motion in all extremities. No calf tenderness. Radial/pedal pulses are intact and 2+ bilaterally Skin: Skin is warm and dry. No petechiae. No purpura. Neurological: Alert and oriented to person, place, and time. Cranial nerves II -XII are grossly intact. Normal speech. Strength is grossly symmetric. No sensory deficits. Psychiatric: Good eye contact. Normal interaction, affect and behavior. - Medical Decision Making 05/12/17 18:40 EXAM: CT Abdomen and Pelvis INTERPRETED BY: Dr. Banuelos REVIEWED BY: Dr. Sen IMPRESSION: Lung bases are clear. The visualized cardiac chambers are normal size and configuration. Status post cholecystectomy without biliary dilation. Normal liver, pancreas, spleen, adrenal glands and kidneys. The stomach and abdominal small and large bowel are normal. There is no aortic aneurysm. There is no significant retroperitoneal lymphadenopathy. There is mild inflammation of the sigmoid colon without definite involvement of the rectum. This may bE secondary to infection, ischemia or inflammatory bowel disease. There is no diverticulosis suggest diverticulitis. No bowel obstruction, abscess or free air. There is no evidence of appendicitis the appendix is not clearly visualized. Status post hysterectomy. Urinary bladder is unremarkable. There is no pelvic free fluid. No discrete pelvic lymphadenopathy is identified. SUMMARY: Mild sigmoid colitis could be due to infection, inflammatory bowel disease or ischemia without definite diverticulosis to suggest diverticulitis. Documentation prepared by Margo Ovalle, acting as medical liaison for Constance Sen DO. <Margo Oavlle - Last Filed: 05/13/17 00:03> - Resident Resident Name: Delroy Hanna - ED Attending Attestation I have performed the following: I have examined & evaluated the patient, The case was reviewed & discussed with the resident, I agree w/resident's findings & plan, Exceptions are as noted - Medical Decision Making 05/12/17 18:06 I, Dr. Constance Sen DO, attest that this document has been prepared under my direction and personally reviewed by me in its entirety. I further attest, that it accurately reflects all work, treatment, procedures and medical decision -making performed by me. 05/12/17 20:05 a/p: 56yo female with worsening abd pain, diarrhea -suspect poss c diff colitis vs colitis that failed outpt therapy vs colitis with abscess -will obtain labs, ct abd/pelvis -ivf hdyration -pain control -will monitor and reassess 05/12/17 21:57 elevated bg on labs ivf hydration running mild hyponatremia and mild hypochloremia pending ct 05/13/17 00:17 ct shows colitis - no abscess will start iv zosyn - since recently treated with levaquin and flagyl will admit uriel covered by [employer] 05/13/17 00:57 case discussed with Gris from [facility] who accepts pt to service transfer back to [facility] in the <Constance Sen - Last Filed: 05/13/17 00:58> Discharge Disposition <Margo Ovalle - Last Filed: 05/13/17 00:03> - Discharge Dispostion Last Admission D/C Date: 02/15/17 Admit: Yes <Constance Sen - Last Filed: 05/13/17 00:58> - Diagnosis Colitis, Abdominal pain - Discharge Dispostion Condition at time of disposition: Guarded - Referrals Referrals: Rc Pineda MD [Primary Care Provider] - - Patient Instructions - Post Discharge Activity
[2017-05-12 18:39] LABS: EOS % 1.4 % (0-4.5); HEMATOCRIT 47.2 % (32.4-45.2); HEMOGLOBIN 15.3 GM/dL (10.7-15.3); LYMPH % 24.6 % (8-40); MCH 29.6 pg (25.7-33.7); MCHC 32.4 g/dl (32.0-36.0); MEAN CELL VOLUME 91.3 fl (80-96); MEAN PLT VOLUME 9.9 fl (7.5-11.1); MONO % 6.5 % (3.8-10.2); NEUT % 66.5 % (42.8-82.8); PLATELET COUNT 297 K/MM3 (134-434); RBC 5.17 M/mm3 (3.60-5.2); RDW 12.9 % (11.6-15.6); WHITE BLOOD COUNT 13.5 K/mm3 (4.0-10.0)
[2017-05-12] MEDS ORDERED: morphine CARPU-JECT 4 MG/1 ML DISP.SYRIN IVPUSH ONE (18:41)
[2017-05-12] MEDS ORDERED: ONDANSETRON 4 MG/2 ML VIAL IVPUSH ONE (18:41)
[2017-05-12] MEDS ORDERED: ACETAMINOPHEN 1000 MG/100 ML VIAL (NON FORMULARY) IVPB ONE (18:41)
[2017-05-12] MEDS ORDERED: SODIUM CHLORIDE 0.9% 1000 ML INFUS.BAG IV ONE ×2 (18:41→21:56)
[2017-05-12] MEDS ORDERED: FAMOTIDINE 20 MG/50 ML IVPB 20 MG/50 ML MG IVPB ONE ×2 (18:45→19:21)
[2017-05-12] MEDS ORDERED: ACETAMINOPHEN INJECTION 100 ML IVPB ONE (19:20)
[2017-05-12] MEDS ORDERED: MORPHINE SULFATE 10 MG/1 ML *VIAL ONE (19:20)
[2017-05-12] MEDS ORDERED: ONDANSETRON 4 MG/2 ML VIAL ONE (19:21)
[2017-05-12 19:38] LABS: URINE APPEARANCE CLEAR; URINE BILIRUBIN NEGATIVE (NEGATIVE); URINE BLOOD 1+ (NEGATIVE); URINE COLOR LTYELLOW; URINE GLUCOSE (UA) 3+ (NEGATIVE); URINE KETONE NEGATIVE (NEGATIVE); URINE LEUK ESTERASE NEGATIVE (NEGATIVE); URINE NITRITE NEGATIVE (NEGATIVE); URINE UROBILINOGEN NEGATIVE mg/dL (0.2-1.0)
[2017-05-12 19:47] LABS: URINE PROTEIN 2+ (NEGATIVE)
[2017-05-12 19:48] LABS: EPI CELLS RARE /HPF (FEW); URINE BACTERIA RARE /hpf (NONE SEEN); URINE HYALINE CAST 1 /lpf; URINE MUCUS RARE
[2017-05-12 21:22] LABS: ALBUMIN 3.1 g/dl (3.4-5.0); ANION GAP 6 (8-16); BILIRUBIN,TOTAL 0.8 mg/dL (0.2-1.0); BLOOD UREA NITROGEN 12 mg/dL (7-18); CALCIUM 8.5 mg/dL (8.5-10.1); CHLORIDE 95 mmol/L (98-107); CO2 31 mmol/L (21-32); CREATININE 0.6 mg/dL (0.55-1.02); LIPASE 86 U/L (73-393); POTASSIUM 4.1 mmol/L (3.5-5.1); SGOT/AST 19 U/L (15-37); SODIUM 132 mmol/L (136-145); TOT PROT 7.1 g/dl (6.4-8.2)
[2017-05-12 21:43] LABS: ALK PHOS 101 U/L (45-117); SGPT/ALT 36 U/L (12-78)
[2017-05-12 21:46] LABS: GLUCOSE,RANDOM 389 mg/dL (74-106)
[2017-05-13] MEDS ORDERED: SODIUM CHLORIDE 0.9% 1000 ML INFUS.BAG IV ONE (00:07)
[2017-05-13] MEDS ORDERED: PIPERACILLIN/TAZOB 4.5 GM/100 ML PRE-DOCKED IVPB ONE (00:07)
[2017-05-13] MEDS ORDERED: morphine CARPU-JECT 4 MG/1 ML DISP.SYRIN IVPUSH ONE (00:07)
[2017-05-13] MEDS ORDERED: MORPHINE SULFATE 10 MG/1 ML *VIAL ONE (00:14)
[2017-05-13] MEDS ORDERED: PIPERACILLIN/TAZOB 4.5 GM 4.5 GM/100 ML BAG IVPB ONE (00:14)
[2017-05-13 01:31] LABS: COCAINE, UR NEGATIVE ng/ml (CUTOFF=300); METHADONE, UR NEGATIVE ng/ml (CUTOFF=300); PHENCYCLIDINE,URINE NEGATIVE ng/ml (CUTOFF=25); URINE AMPHETAMINES NEGATIVE ng/ml (CUTOFF=500); URINE BARBITURATES NEGATIVE ng/ml (CUTOFF=200)
[2017-05-13 01:33] LABS: OPIATES, URI POSITIVE ng/ml (CUTOFF=300); URINE BENZODIAZEPINES POSITIVE ng/ml (CUTOFF=200)
[2017-05-13] MEDS ORDERED: SODIUM CHLORIDE 1,000 ML IV SCH (02:15)
[2017-05-13] MEDS ORDERED: ZOLPIDEM TARTRATE 5 MG TABLET PO PRN (03:40)
[2017-05-13 04:37] VITALS: BMI 44.1
[2017-05-13] MEDS ORDERED: ALBUTEROL SO4 0.083% IH SOL 2.5 MG/3 ML VIAL.NEB. NEB PRN (04:39)
--- NOTE | 2017-05-13 05:10 | HP ---
CHIEF COMPLAINT: Abd pain, diarrhea PCP: Miriam, GI: Edson HISTORY OF PRESENT ILLNESS: This is a 56 year old female with multiple medical problems who presented to the ED with persistent abdominal pain with diarrhea. She was seen in the ED on for same and DC home on PO flagyl 500mg BID and levaquin 500mg daily. She was seen by Dr. Sandhu in his office on 05/03/17 and sent to the ED by Dr. Pineda for admission today. Pt reports her stool as mucousy and watery with a foul odor. Her abdominal pain is crampy and "all over" ER course was notable for: (1) CT abd/pelvis c/w colitis (2) WBC 13.5 Recent Travel: pt denies PAST MEDICAL HISTORY: NIDDM, HTN, ANxiety, depression, chronic pain, former IVDA, COPD,CHF, Hep C Bipolar, seizure disorder, thyroid disorder PAST SURGICAL HISTORY: stent Social History: Smoking: current 1ppd Alcohol: pt denies Drugs: unk Family History: unk Allergies No Known Allergies Allergy (Verified 05/12/17 17:19) HOME MEDICATIONS: (as per chart) 3 Medication Instructions Recorded Albuterol Sulfate Inhaler - 2 inh PO Q4H PRN 11/06/14 [Ventolin HFA Inhaler -] Duloxetine HCl 60 mg PO DAILY 12/21/14 Famotidine [Pepcid -] 40 mg PO DAILY 12/21/14 Tiotropium [place] [Spiriva] 18 mcg IH DAILY 12/21/14 Alprazolam [Xanax] 1 mg PO TID 07/13/16 Tramadol HCl 100 mg PO TID 07/13/16 Aspirin Coated [Ecotrin -] 81 mg PO DAILY #30 tab 07/22/16 Diltiazem Cd [Cardizem Cd -] 120 mg PO DAILY #30 cap 07/22/16 Insulin Aspart Prot/Insuln Asp 35 unit SQ BID #1 box 07/22/16 [Novolog Mix 70-30 Flexpen Syrn] Levetiracetam [Keppra -] 500 mg PO BID tablet 07/22/16 Lisinopril [Prinivil] 20 mg PO DAILY #30 tablet 07/22/16 Montelukast Na [Singulair -] 10 mg PO HS #30 tablet 04/12/17 Ascorbic Acid [Vitamin C -] 500 mg PO BID #60 tablet 02/15/17 Docusate Sodium [Colace -] 300 mg PO HS #30 cap 02/15/17 Doxycycline Hyclate [Vibramycin -] 100 mg PO BID@1000,1800 #14 cap 02/15/17 Insulin (Levemir) [Levemir Flexpen 20 units SQ BID #4 pen 02/15/17 -] Insulin (Novolog) [Novolog Flexpen] 5 units SQ ACHS #4 pen 02/15/17 Metformin HCl [Glucophage -] 500 mg PO BID@0700,1630 #60 tablet 02/15/17 Montelukast Na [Singulair -] 10 mg PO HS #30 tablet 02/15/17 Oxycodone HCl [Roxicodone -] 5 mg PO QID PRN #0 tablet MDD 4 02/15/17 Pramipexole Dihydrochloride 0.25 mg PO HS #30 tablet 02/15/17 [Mirapex -] Ranitidine [Zantac -] 150 mg PO BID #60 tablet 02/15/17 Salmeterol/Fluticasone [Advair 1 puff IH BID #1 inhaler 02/15/17 100Mcg/50Mcg -] Sennosides [Senna -] 2 tab PO HS #60 tablet 02/15/17 Zolpidem Tartrate [Ambien] 10 mg PO HS tablet MDD 1 02/15/17 Ibuprofen 800 mg PO TID #30 tablet 04/23/17 pt is unsure of the names of any of her medications, she states that she has them lined up on her dresser and just takes them. She states that she takes lantus 35 unitis BID but when she cant find that she takes novolog 70/30. She also take humalog if her sugar is high. These are the only medications she knows by name. REVIEW OF SYSTEMS CONSTITUTIONAL: Absent: fever, chills, diaphoresis, generalized weakness, malaise, loss of appetite, weight change HEENT: Absent: rhinorrhea, nasal congestion, throat pain, throat swelling, difficulty swallowing, mouth swelling, ear pain, eye pain, visual changes CARDIOVASCULAR: Absent: chest pain, syncope, palpitations, irregular heart rate, lightheadedness , peripheral edema RESPIRATORY: Absent: cough, shortness of breath, dyspnea with exertion, orthopnea, wheezing, stridor, hemoptysis GASTROINTESTINAL: Present: abdominal pain, diarrhea Absent: abdominal distension, nausea, vomiting, constipation, melena, hematochezia GENITOURINARY: Absent: dysuria, frequency, urgency, hesitancy, hematuria, flank pain, genital pain MUSCULOSKELETAL: Absent: myalgia, arthralgia, joint swelling, back pain, neck pain SKIN: Absent: rash, itching, pallor HEMATOLOGIC/IMMUNOLOGIC: Absent: easy bleeding, easy bruising, lymphadenopathy, frequent infections ENDOCRINE: Absent: unexplained weight gain, unexplained weight loss, heat intolerance, cold intolerance NEUROLOGIC: Absent: headache, focal weakness or paresthesias, dizziness, unsteady gait, seizure, mental status changes, bladder or bowel incontinence PSYCHIATRIC: Absent: anxiety, depression, suicidal or homicidal ideation, hallucinations. PHYSICAL EXAMINATION Vital Signs - 24 hr 3 05/12/17 05/13/17 05/13/17 17:19 02:13 02:14 Temperature 98.6 F Pulse Rate 102 H Pulse Rate [ 88 Right Apical] Respiratory 18 16 Rate Blood Pressure 128/84 Blood Pressure 125/74 [Left Arm] O2 Sat by Pulse 94 L 99 99 Oximetry (%) GENERAL: Awake, alert, and fully oriented, in no acute distress. HEAD: Normal with no signs of trauma. EYES: Pupils equal, round and reactive to light, extraocular movements intact, sclera anicteric, conjunctiva clear. No lid lag. EARS, NOSE, THROAT: Ears normal, nares patent, oropharynx clear without exudates. Moist mucous membranes. NECK: Normal range of motion, supple without lymphadenopathy, JVD, or masses. LUNGS: Breath sounds equal, clear to auscultation bilaterally. No crackles. No accessory muscle use. Mild diffuse wheezing HEART: Regular rate and rhythm, normal S1 and S2 without murmur, rub or gallop. ABDOMEN: Soft, diffusely tender, not distended, normoactive bowel sounds, no guarding, no rebound, no masses. No hepatomegaly or splenomegaly. MUSCULOSKELETAL: Normal range of motion at all joints. No bony deformities or tenderness. No CVA tenderness. UPPER EXTREMITIES: 2+ pulses, warm, well-perfused. No cyanosis. No clubbing. No peripheral edema. LOWER EXTREMITIES: 2+ pulses, warm, well-perfused. No calf tenderness. No peripheral edema. NEUROLOGICAL: Cranial nerves II-XII intact. Normal speech. Normal gait. PSYCHIATRIC: Cooperative. Good eye contact. Appropriate mood and affect. SKIN: Warm, dry, normal turgor, no rashes or lesions noted, normal capillary refill. Laboratory Results - last 24 hr 3 05/12/17 05/12/17 05/12/17 18:00 18:00 18:29 WBC 13.5 H RBC 5.17 Hgb 15.3 Hct 47.2 H MCV 91.3 MCH 29.6 MCHC 32.4 RDW 12.9 Plt Count 297 MPV 9.9 D Neutrophils % 66.5 Lymphocytes % 24.6 Monocytes % 6.5 Eosinophils % 1.4 Basophils % 1.0 Sodium Cancelled Potassium Cancelled Chloride Cancelled Carbon Dioxide Cancelled Anion Gap Cancelled BUN Cancelled Creatinine Cancelled Creat Clearance w eGFR Cancelled Random Glucose Cancelled Calcium Cancelled Total Bilirubin Cancelled AST Cancelled ALT Cancelled Alkaline Phosphatase Cancelled Total Protein Cancelled Albumin Cancelled Lipase Cancelled Urine Color Ltyellow Urine Appearance Clear Urine pH 5.0 Ur Specific [place] 1.032 Urine Protein 2+ H Urine Glucose (UA) 3+ H Urine Ketones Negative Urine Blood 1+ H Urine Nitrite Negative Urine Bilirubin Negative Urine Urobilinogen Negative Ur Leukocyte Esterase Negative Urine WBC (Auto) 5 Urine RBC (Auto) 2 Ur Epithelial Cells Rare Urine Bacteria Rare Hyaline Casts 1 Urine Mucus Rare Opiates Screen Methadone Screen Barbiturate Screen Phencyclidine Screen Ur Amphetamines Screen MDMA (Ecstasy) Screen Benzodiazepines Screen Cocaine Screen U Marijuana (THC) Screen 3 05/12/17 05/12/17 19:48 22:45 WBC RBC Hgb Hct MCV MCH MCHC RDW Plt Count MPV Neutrophils % Lymphocytes % Monocytes % Eosinophils % Basophils % Sodium 132 L Potassium 4.1 Chloride 95 L Carbon Dioxide 31 Anion Gap 6 L BUN 12 Creatinine 0.6 Creat Clearance w eGFR > 60 Random Glucose 389 H* Calcium 8.5 Total Bilirubin 0.8 AST 19 ALT 36 Alkaline Phosphatase 101 Total Protein 7.1 Albumin 3.1 L Lipase 86 Urine Color Urine Appearance Urine pH Ur Specific [place] Urine Protein Urine Glucose (UA) Urine Ketones Urine Blood Urine Nitrite Urine Bilirubin Urine Urobilinogen Ur Leukocyte Esterase Urine WBC (Auto) Urine RBC (Auto) Ur Epithelial Cells Urine Bacteria Hyaline Casts Urine Mucus Opiates Screen Positive Methadone Screen Negative Barbiturate Screen Negative Phencyclidine Screen Negative Ur Amphetamines Screen Negative MDMA (Ecstasy) Screen Negative Benzodiazepines Screen Positive Cocaine Screen Negative U Marijuana (THC) Screen Positive Radiology Reports CT abd/pelvis with contrast THIS IS A PRELIMINARY REPORT FROM IMAGING ENVIRONMENTAL SERVICES SUPERVISOR IMPRESSION: Mild sigmoid colitis could be due to infection, inflammatory bowel disease or ischemia without definite diverticulosis to suggest diverticulitis. THIS DOCUMENT HAS BEEN ELECTRONICALLY SIGNED Shemar Banuelos MD 05/12/2017 23:55 EST ASSESSMENT/PLAN: 56yF with PMH NIDDM, HTN, ANxiety, depression, chronic pain, former IVDA, COPD, CHF, Hep C, Bipolar, seizure disorder, thyroid disorder presented to the ED with persistent abdominal pain and diarrhea. Colitis - failed outpatient PO therapy - given zosyn in ED, but will start IV levaquin and flagyl as pt failed PO treatment not IV - GI consult - morphine 2mg IVP q4h for pain - pt passed BM in ED. Nurse describes stool as 2 hard balls but reports there was some liquid in hat as well, sent for c diff COPD - cont home spiriva and advair - start duonebs QID standing and albuterol PRN DM - home lantus changed to levemir and dose reduced by 50% while NPO. monitor sugars closely and adjust dose accordingly - BGM AC/HS with novolog SS HTN/CHF - BP stable - cont home meds Depression/anxiety/bipolar - cont xanax, cymbalta. 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 Visit type - Emergency Visit Emergency Visit: Yes ED Registration Date: 05/12/17 Care time: The patient presented to the Emergency Department on the above date and was hospitalized for further evaluation of their emergent condition. - New Patient This patient is new to me today: Yes Date on this admission: 05/13/17 - Critical Care Critical Care patient: No
[2017-05-13] MEDS ORDERED: INSULIN (NOVOLOG) ASPART 100 UNITS/ML 10ML VIAL ONE ×2 (05:37→22:34)
[2017-05-13] MEDS: MORPHINE SULFATE 10 MG/1 ML *VIAL IVPUSH PRN ×3 (05:44→20:56)
[2017-05-13] MEDS: ALPRAZolam 2 MG TABLET PO SCH ×3 (05:50→22:42)
[2017-05-13] MEDS: INSULIN SLIDING SCALE (NOVOLOG) 1 VIAL SQ SCH ×4 (06:53→22:42)
[2017-05-13] MEDS: INSULIN DETEMIR 100 UNITS/ML MDV SQ SCH ×2 (06:53→22:42)
[2017-05-13] MEDS ORDERED: INSULIN DETEMIR 100 UNITS/ML MDV SQ SCH (07:00)
[2017-05-13 08:45] LABS: BASO % 0.6 % (0-2.0); EOS % 1.8 % (0-4.5); HEMATOCRIT 43.8 % (32.4-45.2); HEMOGLOBIN 14.2 GM/dL (10.7-15.3); LYMPH % 25.2 % (8-40); MCH 29.6 pg (25.7-33.7); MCHC 32.4 g/dl (32.0-36.0); MEAN CELL VOLUME 91.2 fl (80-96); MEAN PLT VOLUME 9.1 fl (7.5-11.1); MONO % 5.6 % (3.8-10.2); NEUT % 66.8 % (42.8-82.8); PLATELET COUNT 255 K/MM3 (134-434); RDW 13.1 % (11.6-15.6); WHITE BLOOD COUNT 13.3 K/mm3 (4.0-10.0)
[2017-05-13] MEDS ORDERED: PT OWN MED DRAWER 7, Y5N ONE ×2 (09:47→22:35)
[2017-05-13] MEDS: RANITIDINE HCL 150 MG TABLET (FP) PO SCH ×2 (09:52→22:41)
[2017-05-13] MEDS: levETIRAcetam 500 MG TABLET (FP) PO SCH ×2 (09:52→22:42)
[2017-05-13] MEDS: LISINOPRIL 20 MG TABLET (FP) PO SCH (09:52)
[2017-05-13] MEDS: HEPARIN NA (PORCINE) 5,000 UNITS/ML 1ML VIAL SQ SCH ×2 (09:52→22:41)
[2017-05-13] MEDS: ASCORBIC ACID 500 MG TABLET (FP) PO SCH ×2 (09:52→22:42)
[2017-05-13] MEDS: ASPIRIN COATED 81 MG TABLET.EC PO SCH (09:52)
[2017-05-13] MEDS: DULoxetine HCL 30 MG CAPSULE.DR (FP) PO SCH (09:52)
[2017-05-13] MEDS: TIOTROPIUM BROMIDE 18 MCG/INH (DEVICE W/ 5 CAPSULES) IH SCH (09:52)
[2017-05-13] MEDS: FLUTICASONE/SALMETEROL 100 MCG/50 MCG DISKUS IH SCH ×2 (09:53→22:51)
[2017-05-13 11:41] LABS: BLOOD UREA NITROGEN 10 mg/dl (7-18); CHLORIDE 99 mmol/L (98-107); CREATININE 0.5 mg/dl (0.6-1.3); POTASSIUM 3.8 mmol/L (3.5-5.1); SODIUM 136 mmol/L (136-145)
[2017-05-13 11:42] LABS: ANION GAP 9 (8-16); CO2 28 mmol/L (22-28); GLUCOSE,RANDOM 342 mg/dl (74-106); MAGNESIUM 1.5 mg/dL (1.8-2.4); PHOSPHOROUS 4.4 mg/dl (2.5-4.6)
[2017-05-13] MEDS ORDERED: SODIUM PHOSPHATE/NA BIPHOS 133 ML ENEMA PR ONE (12:45)
[2017-05-13] MEDS: ALBUTEROL SO4 2.5/IPRATROPIUM 0.5 INH SOL 3 ML VIAL.NEB. NEB SCH ×2 (16:33→20:56)
--- NOTE | 2017-05-13 18:02 | CON.ID ---
Consult Consult Specialty:: infectious diseases Reason for Consultation:: colitis - History of Present Illness Chief Complaint: abd pain,dirrhoea History of Present Illness: 56yo F with multiple medical problems, who was admitted for abdominal pain and diagnosed with colitis on CT last month; she was sent home with a course of Levofloxacin and Flagyl at that time. Patient came back to hospital yesterday for diffuse abd pain and dirrhoea , according to her she has been having it for a week and it had a foul smell to it She has had some subjective fever and chills at home, nausea but no vomiting, and overall weakness and not eating well. In the er patient was worked up and found to have leukocytosis and ct showed colitis again Further work up shwed that her stools were positive for cdiff patient was started on levaquin and flagyl in the ER patient currently with abd pain but has not had dirrhoea as of yet since admission - History Source History Provided By: Patient Limitations to Obtaining History: No Limitations - Past Medical History HAND ALTERATIONS TAILOR: Yes: CVA (? pt thinks she may have had one in the past (L facial droop)), Seizure. No: Alzheimer's Cardio/Vascular: Yes: CAD, HTN. No: AFIB Pulmonary: Yes: Asthma, COPD Hepatobiliary: Yes: Hepatitis C (from a blood transfusion) Psych: Yes: Addictions, Anxiety, Bipolar, Depression Musculoskeletal: Yes: Chronic low back pain Endocrine: Yes: Diabetes Mellitus - Past Surgical History Past Surgical History: Yes: Appendectomy, Cholecystectomy (laparoscopic), Colonoscopy, Hysterectomy (vaginal) - Alcohol/Substance Use Hx Alcohol Use: No History of Substance Use: reports: Cocaine (crack) - Smoking History Smoking history: Current every day smoker Have you smoked in the past 12 months: Yes Aproximately how many cigarettes per day: 20 - Social History Usual Living Arrangement: With Spouse Occupation: disabled History of Recent Travel: No Home Medications - Allergies Allergies/Adverse Reactions: Allergies Allergy/AdvReac Type Severity Reaction Status Date / Time No Known Allergies Allergy Verified 05/12/17 17:19 - Home Medications Home Medications: Ambulatory Orders Albuterol Sulfate Inhaler - [Ventolin HFA Inhaler -] 2 inh PO Q4H PRN 11/06/14 Duloxetine HCl 60 mg PO DAILY 12/21/14 Famotidine [Pepcid -] 40 mg PO DAILY 12/21/14 Tiotropium [place] [Spiriva] 18 mcg IH DAILY 12/21/14 Alprazolam [Xanax] 1 mg PO TID 07/13/16 Tramadol HCl 100 mg PO TID 07/13/16 Aspirin Coated [Ecotrin -] 81 mg PO DAILY #30 tab 07/22/16 Diltiazem Cd [Cardizem Cd -] 120 mg PO DAILY #30 cap 07/22/16 Insulin Aspart Prot/Insuln Asp [Novolog Mix 70-30 Flexpen Syrn] 35 unit SQ BID # 1 box 07/22/16 Levetiracetam [Keppra -] 500 mg PO BID tablet 07/22/16 Lisinopril [Prinivil] 20 mg PO DAILY #30 tablet 07/22/16 Montelukast Na [Singulair -] 10 mg PO HS #30 tablet 07/22/16 Ascorbic Acid [Vitamin C -] 500 mg PO BID #60 tablet 02/15/17 Docusate Sodium [Colace -] 300 mg PO HS #30 cap 02/15/17 Doxycycline Hyclate [Vibramycin -] 100 mg PO BID@1000,1800 #14 cap 02/15/17 Insulin (Levemir) [Levemir Flexpen -] 20 units SQ BID #4 pen 02/15/17 Insulin (Novolog) [Novolog Flexpen] 5 units SQ ACHS #4 pen 02/15/17 Metformin HCl [Glucophage -] 500 mg PO BID@0700,1630 #60 tablet 02/15/17 Montelukast Na [Singulair -] 10 mg PO HS #30 tablet 02/15/17 Oxycodone HCl [Roxicodone -] 5 mg PO QID PRN #0 tablet MDD 4 02/15/17 Pramipexole Dihydrochloride [Mirapex -] 0.25 mg PO HS #30 tablet 02/15/17 Ranitidine [Zantac -] 150 mg PO BID #60 tablet 02/15/17 Salmeterol/Fluticasone [Advair 100Mcg/50Mcg -] 1 puff IH BID #1 inhaler Sennosides [Senna -] 2 tab PO HS #60 tablet 02/15/17 Zolpidem Tartrate [Ambien] 10 mg PO HS tablet MDD 1 02/15/17 Ibuprofen 800 mg PO TID #30 tablet 04/23/17 Family Disease History - Family Disease History Family Disease History: Diabetes: Mother, Heart Disease: Father, Brother, Sister , Respiratory: Father, Other: Father, Brother, Sister Review of Systems - Review of Systems Constitutional: reports: Fever Eyes: reports: No Symptoms HENT: reports: No Symptoms Neck: reports: No Symptoms Cardiovascular: reports: No Symptoms Respiratory: reports: No Symptoms Gastrointestinal: reports: Abdominal Pain, Diarrhea Genitourinary: reports: No Symptoms Breasts: reports: No Symptoms Reported Musculoskeletal: reports: No Symptoms Neurological: reports: No Symptoms Endocrine: reports: No Symptoms Hematology/Lymphatic: reports: No Symptoms Psychiatric: reports: No Symptoms Physical Exam Vital Signs: Vital Signs Temperature 98.3 F 05/13/17 15:18 Pulse Rate 97 H 05/13/17 15:18 Respiratory Rate 20 05/13/17 15:18 Blood Pressure 121/73 05/13/17 15:18 O2 Sat by Pulse Oximetry (%) 94 L 05/13/17 09:00 Constitutional: Yes: Well Nourished, Calm, Mild Distress Cardiovascular: Yes: Regular Rate and Rhythm Respiratory: Yes: Regular, CTA Bilaterally Gastrointestinal: Yes: Normal Bowel Sounds, Soft, Tenderness Musculoskeletal: Yes: WNL Extremities: Yes: WNL Neurological: Yes: Alert, Oriented Psychiatric: Yes: Alert, Oriented Labs: CBC, BMP 05/13/17 07:00 05/13/17 08:15 Imaging - Results Cat Scan: Report Reviewed, Image Reviewed Assessment/Plan Problem List - Problems (1) C. difficile colitis Thank you for the opportunity to participate in the care of this patient. Code(s): A04.72 - ENTEROCOLITIS D/T CLOSTRIDIUM DIFFICILE, NOT SPCF RECUR (2) Abdominal pain Code(s): R10.9 - UNSPECIFIED ABDOMINAL PAIN Qualifiers: Abdominal location: generalized Qualified Code(s): R10.84 - Generalized abdominal pain (3) Diarrhea Code(s): R19.7 - DIARRHEA, UNSPECIFIED Qualifiers: Diarrhea type: infectious Qualified Code(s): A09 - Infectious gastroenteritis and colitis, unspecified (4) Hypertension associated with diabetes Code(s): E11.59 - TYPE 2 DIABETES MELLITUS WITH OTH CIRCULATORY COMPLICATIONS; I10 - ESSENTIAL (PRIMARY) HYPERTENSION (5) Asthma Code(s): J45.909 - UNSPECIFIED ASTHMA, UNCOMPLICATED Qualifiers: Asthma severity: unspecified severity Asthma persistence: intermittent Asthma complication type: uncomplicated Qualified Code(s): J45.20 - Mild intermittent asthma, uncomplicated (6) Bipolar II disorder Code(s): F31.81 - BIPOLAR II DISORDER (7) Diabetes mellitus Code(s): E11.9 - TYPE 2 DIABETES MELLITUS WITHOUT COMPLICATIONS Qualifiers: Diabetes mellitus type: type 2 Diabetes mellitus complication status: with hyperglycemia Diabetes mellitus instructional coach insulin use: with instructional coach use Qualified Code(s): E11.65 - Type 2 diabetes mellitus with hyperglycemia; Z79.4 - [facility] (current) use of insulin; Z79.4 - mailer (current) use of insulin ; Z79.4 - mailer (current) use of insulin; Z79.4 - [facility] (current) use of insulin (8) Hepatitis C Code(s): B19.20 - UNSPECIFIED VIRAL HEPATITIS C WITHOUT HEPATIC COMA Qualifiers: Viral hepatitis chronicity: unspecified Hepatic coma status: without hepatic coma Qualified Code(s): B19.20 - Unspecified viral hepatitis C without hepatic coma (9) Hypothyroidism Code(s): E03.9 - HYPOTHYROIDISM, UNSPECIFIED Qualifiers: Hypothyroidism type: acquired Qualified Code(s): E03.9 - Hypothyroidism, unspecified (10) Seizure disorder Code(s): G40.909 - EPILEPSY, UNSP, NOT INTRACTABLE, WITHOUT STATUS EPILEPTICUS plan will stop all abx on the patient will start her on oral vanco continue to monitor wbc rest as per primary team
--- NOTE | 2017-05-13 18:43 | CONSULT ---
Consult Consult Specialty:: General Surgery Referred by:: Dr. Pineda Reason for Consultation:: abdominal pain, ?colitis - History of Present Illness Chief Complaint: diffuse abdominal pain, diarrhea History of Present Illness: 56yo F known to me from prior admission, with multiple medical problems , including MRSA abscess on right thigh which was drained by ER Feb 2017. She was seen in ER in mid-April for abdominal pain and diagnosed with colitis on CT; she was sent home with a course of Levofloxacin and Flagyl at that time. She has since followed up with Dr. Sandhu 05/[address] Pineda yesterday, and c/ o persistent and severe diffuse abdominal pain associated with over a week of watery, mucusy, foul-smelling diarrhea. She has had some subjective fever and chills at home, nausea but no vomiting, and overall weakness and not eating well. Dr. Pineda sent her to ER yesterday, where she had wbc 13, CT showing possible mild colitis but no other acute pathology, and was admitted for IV antibiotics and fluids. I first attempted to examine her earlier today, but she was on her way to the bathroom. Since then, C. diff tests have returned positive for antigen and toxin. No high fevers. She states her pain is about the same and still very bad. She also complains of pain in her back and down her left leg. She has had previous spinal surgery, as well as abdominal surgery. GI is seeing the patient also. - History Source History Provided By: Patient, Medical Record Limitations to Obtaining History: No Limitations - Past Medical History APPLIED ANTHROPOLOGIST: Yes: CVA (? pt thinks she may have had one in the past (L facial droop)), Seizure Cardio/Vascular: Yes: CAD, HTN Pulmonary: Yes: Asthma, COPD Gastrointestinal: Yes: Hiatal Hernia, Other ("colitis" mid-April) Hepatobiliary: Yes: Hepatitis C (from a blood transfusion) ...: No Infectious Disease: Yes: MRSA (R thigh abscess 02/26) Psych: Yes: Addictions, Anxiety, Bipolar, Depression Musculoskeletal: Yes: Chronic low back pain Endocrine: Yes: Diabetes Mellitus - Past Surgical History Past Surgical History: Yes: Appendectomy, Cholecystectomy (laparoscopic), Colonoscopy, Hysterectomy (vaginal) Additional Surgical History: I&D R thigh abscess 02/26 - Alcohol/Substance Use Hx Alcohol Use: No History of Substance Use: reports: Cocaine (crack), Marijuana - Smoking History Smoking history: Current every day smoker Have you smoked in the past 12 months: Yes Aproximately how many cigarettes per day: 20 - Social History Usual Living Arrangement: With Spouse Occupation: disabled History of Recent Travel: No Home Medications - Allergies Allergies/Adverse Reactions: Allergies Allergy/AdvReac Type Severity Reaction Status Date / Time No Known Allergies Allergy Verified 05/12/17 17:19 - Home Medications Home Medications: Ambulatory Orders Albuterol Sulfate Inhaler - [Ventolin HFA Inhaler -] 2 inh PO Q4H PRN 11/06/14 Duloxetine HCl 60 mg PO DAILY 12/21/14 Famotidine [Pepcid -] 40 mg PO DAILY 12/21/14 Tiotropium [place] [Spiriva] 18 mcg IH DAILY 12/21/14 Alprazolam [Xanax] 1 mg PO TID 07/13/16 Tramadol HCl 100 mg PO TID 07/13/16 Aspirin Coated [Ecotrin -] 81 mg PO DAILY #30 tab 07/22/16 Diltiazem Cd [Cardizem Cd -] 120 mg PO DAILY #30 cap 07/22/16 Insulin Aspart Prot/Insuln Asp [Novolog Mix 70-30 Flexpen Syrn] 35 unit SQ BID # 1 box 07/22/16 Levetiracetam [Keppra -] 500 mg PO BID tablet 07/22/16 Lisinopril [Prinivil] 20 mg PO DAILY #30 tablet 07/22/16 Montelukast Na [Singulair -] 10 mg PO HS #30 tablet 07/22/16 Ascorbic Acid [Vitamin C -] 500 mg PO BID #60 tablet 02/15/17 Docusate Sodium [Colace -] 300 mg PO HS #30 cap 02/15/17 Doxycycline Hyclate [Vibramycin -] 100 mg PO BID@1000,1800 #14 cap 02/15/17 Insulin (Levemir) [Levemir Flexpen -] 20 units SQ BID #4 pen 02/15/17 Insulin (Novolog) [Novolog Flexpen] 5 units SQ ACHS #4 pen 02/15/17 Metformin HCl [Glucophage -] 500 mg PO BID@0700,1630 #60 tablet 02/15/17 Montelukast Na [Singulair -] 10 mg PO HS #30 tablet 02/15/17 Oxycodone HCl [Roxicodone -] 5 mg PO QID PRN #0 tablet MDD 4 02/15/17 Pramipexole Dihydrochloride [Mirapex -] 0.25 mg PO HS #30 tablet 02/15/17 Ranitidine [Zantac -] 150 mg PO BID #60 tablet 02/15/17 Salmeterol/Fluticasone [Advair 100Mcg/50Mcg -] 1 puff IH BID #1 inhaler Sennosides [Senna -] 2 tab PO HS #60 tablet 02/15/17 Zolpidem Tartrate [Ambien] 10 mg PO HS tablet MDD 1 02/15/17 Ibuprofen 800 mg PO TID #30 tablet 04/23/17 Family Disease History - Family Disease History Family Disease History: Diabetes: Mother, Heart Disease: Father, Brother, Sister , Respiratory: Father, Other: Father, Brother, Sister Review of Systems - Review of Systems Constitutional: reports: Chills, Fever, Weakness Eyes: reports: Other (uses reading glasses). denies: Recent Change in Vision HENT: denies: Difficult Swallowing, Throat Pain Neck: denies: Swollen Glands, Tenderness Cardiovascular: denies: Chest Pain, Palpitations Respiratory: denies: Cough, SOB Gastrointestinal: reports: Abdominal Pain (with hpi), Diarrhea (with hpi), Nausea (with hpi). denies: Constipation, Vomiting Genitourinary: denies: Burning, Dysuria Musculoskeletal: reports: Back Pain, Extremity Pain (left leg) Integumentary: denies: Change in Color, Rash Neurological: denies: Dizziness, Headache Physical Exam Vital Signs: Vital Signs Temperature 98.7 F 05/13/17 18:16 Pulse Rate 97 H 05/13/17 18:16 Respiratory Rate 20 05/13/17 18:16 Blood Pressure 129/70 05/13/17 18:16 O2 Sat by Pulse Oximetry (%) 94 L 05/13/17 09:00 Constitutional: Yes: Calm, Moderate Distress, Obese Eyes: Yes: Conjunctiva Clear, EOM Intact HENT: Yes: Atraumatic, Normocephalic Neck: Yes: Supple, Trachea Midline Cardiovascular: Yes: Tachycardia (mild). No: Murmur Respiratory: Yes: Regular, Wheezes (expiratory bilaterally). No: Rhonchi Gastrointestinal: Yes: Soft, Abdomen, Obese, Hypoactive Bowel Sounds, Tenderness (diffuse, more on left side upper and lower, no rebound/guarding). No: Tenderness, Rebound ...Rectal Exam: Yes: Deferred Renal/: No: Patel Present, Incontinence Musculoskeletal: Yes: Back Pain, Other (pain down left leg). No: Joint Swelling Extremities: No: Cool, Cyanosis Peripheral Pulses WNL: Yes Integumentary: No: Jaundice, Rash Neurological: Yes: Alert, Oriented, Facial Droop (mild on left) Psychiatric: Yes: Alert, Oriented Labs: CBC, BMP 05/13/17 07:00 05/13/17 08:15 CMP Sodium 136 mmol/L (136-145) 05/13/17 08:15 Potassium 3.8 mmol/L (3.5-5.1) 05/13/17 08:15 Chloride 99 mmol/L (98-107) 05/13/17 08:15 Carbon Dioxide 28 mmol/L (22-28) 05/13/17 08:15 Anion Gap 9 (8-16) 05/13/17 08:15 BUN 10 mg/dl (7-18) 05/13/17 08:15 Creatinine 0.5 mg/dl (0.6-1.3) L 05/13/17 08:15 Creat Clearance w eGFR > 60 (>60) 05/12/17 19:48 POC Glucometer 250 UNITS (80-120) 05/13/17 16:45 Random Glucose 342 mg/dl (74-106) H* 05/13/17 08:15 Calcium 8.0 mg/dl (8.4-10.2) L 05/13/17 08:15 Phosphorus 4.4 mg/dl (2.5-4.6) 05/13/17 08:15 Magnesium 1.5 mg/dL (1.8-2.4) L 05/13/17 08:15 Total Bilirubin 0.8 mg/dL (0.2-1.0) 05/12/17 19:48 AST 19 U/L (15-37) 05/12/17 19:48 ALT 36 U/L (12-78) 01/31/18 19:48 Alkaline Phosphatase 101 U/L (45-117) 05/12/17 19:48 Total Protein 7.1 g/dl (6.4-8.2) 05/12/17 19:48 Albumin 3.1 g/dl (3.4-5.0) L 05/12/17 19:48 Lipase 86 U/L (73-393) 05/12/17 19:48 Urine Test Results Urine Color Ltyellow 05/12/17 18:29 Urine Appearance Clear 05/12/17 18:29 Urine pH 5.0 (5.0-8.0) 05/12/17 18:29 Ur Specific [place] 1.032 (1.001-1.035) 05/12/17 18:29 Urine Protein 2+ (NEGATIVE) H 05/12/17 18:29 Urine Glucose (UA) 3+ (NEGATIVE) H 05/12/17 18:29 Urine Ketones Negative (NEGATIVE) 05/12/17 18:29 Urine Blood 1+ (NEGATIVE) H 05/12/17 18:29 Urine Nitrite Negative (NEGATIVE) 05/12/17 18:29 Urine Bilirubin Negative (NEGATIVE) 05/12/17 18:29 Ur Leukocyte Esterase Negative (NEGATIVE) 05/12/17 18:29 Ur Epithelial Cells Rare /HPF (FEW) 05/12/17 18:29 Urine Bacteria Rare /hpf (NONE SEEN) 05/12/17 18:29 Urine Mucus Rare 05/12/17 18:29 urine positive for opiates, benzos, MJ Microbiology 05/13/17 04:00 Clostridium difficile Antigen ([facility]) - Final Stool Clostridium difficile Toxin Assay - Final C. diff positive for antigen and toxin Imaging - Results Cat Scan: Report Reviewed (no acute findings, + stool, no colitis mentioned on final read), Image Reviewed Ultrasound: Report Reviewed (duplex neg for DVT left as imaged) Problem List - Problems (1) C. difficile colitis Assessment/Plan: ID consult for antibiotic management GI on board pain meds prn NPO/IVF except meds until pain/tenderness resolve trend labs will follow for serial exams Thank you for the opportunity to participate in the care of this patient. Code(s): A04.72 - ENTEROCOLITIS D/T CLOSTRIDIUM DIFFICILE, NOT SPCF RECUR (2) Abdominal pain Code(s): R10.9 - UNSPECIFIED ABDOMINAL PAIN Qualifiers: Abdominal location: generalized Qualified Code(s): R10.84 - Generalized abdominal pain (3) Diarrhea Code(s): R19.7 - DIARRHEA, UNSPECIFIED Qualifiers: Diarrhea type: infectious Qualified Code(s): A09 - Infectious gastroenteritis and colitis, unspecified (4) Hypertension associated with diabetes Code(s): E11.59 - TYPE 2 DIABETES MELLITUS WITH OTH CIRCULATORY COMPLICATIONS; I10 - ESSENTIAL (PRIMARY) HYPERTENSION (5) Asthma Code(s): J45.909 - UNSPECIFIED ASTHMA, UNCOMPLICATED Qualifiers: Asthma severity: unspecified severity Asthma persistence: intermittent Asthma complication type: uncomplicated Qualified Code(s): J45.20 - Mild intermittent asthma, uncomplicated (6) Bipolar II disorder Code(s): F31.81 - BIPOLAR II DISORDER (7) Diabetes mellitus Code(s): E11.9 - TYPE 2 DIABETES MELLITUS WITHOUT COMPLICATIONS Qualifiers: Diabetes mellitus type: type 2 Diabetes mellitus complication status: with hyperglycemia Diabetes mellitus skilled nursing insulin use: with skilled nursing use Qualified Code(s): E11.65 - Type 2 diabetes mellitus with hyperglycemia; Z79.4 - assisted (current) use of insulin; Z79.4 - assisted (current) use of insulin ; Z79.4 - buttermaker (current) use of insulin; Z79.4 - buttermaker (current) use of insulin (8) Hepatitis C Code(s): B19.20 - UNSPECIFIED VIRAL HEPATITIS C WITHOUT HEPATIC COMA Qualifiers: Viral hepatitis chronicity: unspecified Hepatic coma status: without hepatic coma Qualified Code(s): B19.20 - Unspecified viral hepatitis C without hepatic coma (9) Hypothyroidism Code(s): E03.9 - HYPOTHYROIDISM, UNSPECIFIED Qualifiers: Hypothyroidism type: acquired Qualified Code(s): E03.9 - Hypothyroidism, unspecified (10) Seizure disorder Code(s): G40.909 - EPILEPSY, UNSP, NOT INTRACTABLE, WITHOUT STATUS EPILEPTICUS
[2017-05-13] MEDS ORDERED: VANCOMYCIN 250 MG/5 ML ORAL SOLUTION PO SCH (20:00)
--- NOTE | 2017-05-13 20:00 | CON.GI ---
Consult Consult Specialty:: GI Referred by:: Dr Rc Pineda - History of Present Illness History of Present Illness: 56 y/o F with PMH of Hep C was readmitted with abdominal pain and frequent diarrhea for the past 2 weeks. She denies nause and vomiting. 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 pt thinks she may have had one in the past (L facial droop)), Seizure Cardio/Vascular: Yes: Aortic Insufficiency, CAD, HTN Pulmonary: Yes: Asthma, COPD Gastrointestinal: Yes: Hiatal Hernia Hepatobiliary: Yes: Hepatitis C (from a blood transfusion) Infectious Disease: Yes: MRSA (R thigh abscess 02/26) Psych: Yes: Addictions, Anxiety, Bipolar, Depression Musculoskeletal: Yes: Chronic low back pain Endocrine: Yes: Diabetes Mellitus - Past Surgical History Past Surgical History: Yes: Appendectomy, Cholecystectomy (laparoscopic), Colonoscopy, Hysterectomy (vaginal) Additional Surgical History: I&D R thigh abscess 02/26 - Alcohol/Substance Use Hx Alcohol Use: No History of Substance Use: reports: Cocaine (crack), Marijuana - Smoking History Smoking history: Current every day smoker Have you smoked in the past 12 months: Yes Aproximately how many cigarettes per day: 20 - Social History Usual Living Arrangement: With Spouse Occupation: disabled History of Recent Travel: No Home Medications - Allergies Allergies/Adverse Reactions: Allergies Allergy/AdvReac Type Severity Reaction Status Date / Time No Known Allergies Allergy Verified 05/12/17 17:19 - Home Medications Home Medications: Ambulatory Orders Albuterol Sulfate Inhaler - [Ventolin HFA Inhaler -] 2 inh PO Q4H PRN 11/06/14 Duloxetine HCl 60 mg PO DAILY 12/21/14 Famotidine [Pepcid -] 40 mg PO DAILY 12/21/14 Tiotropium [place] [Spiriva] 18 mcg IH DAILY 12/21/14 Alprazolam [Xanax] 1 mg PO TID 07/13/16 Tramadol HCl 100 mg PO TID 07/13/16 Aspirin Coated [Ecotrin -] 81 mg PO DAILY #30 tab 07/22/16 Diltiazem Cd [Cardizem Cd -] 120 mg PO DAILY #30 cap 07/22/16 Insulin Aspart Prot/Insuln Asp [Novolog Mix 70-30 Flexpen Syrn] 35 unit SQ BID # 1 box 07/22/16 Levetiracetam [Keppra -] 500 mg PO BID tablet 07/22/16 Lisinopril [Prinivil] 20 mg PO DAILY #30 tablet 07/22/16 Montelukast Na [Singulair -] 10 mg PO HS #30 tablet 07/22/16 Ascorbic Acid [Vitamin C -] 500 mg PO BID #60 tablet 02/15/17 Docusate Sodium [Colace -] 300 mg PO HS #30 cap 02/15/17 Doxycycline Hyclate [Vibramycin -] 100 mg PO BID@1000,1800 #14 cap 02/15/17 Insulin (Levemir) [Levemir Flexpen -] 20 units SQ BID #4 pen 02/15/17 Insulin (Novolog) [Novolog Flexpen] 5 units SQ ACHS #4 pen 02/15/17 Metformin HCl [Glucophage -] 500 mg PO BID@0700,1630 #60 tablet 02/15/17 Montelukast Na [Singulair -] 10 mg PO HS #30 tablet 02/15/17 Oxycodone HCl [Roxicodone -] 5 mg PO QID PRN #0 tablet MDD 4 02/15/17 Pramipexole Dihydrochloride [Mirapex -] 0.25 mg PO HS #30 tablet 02/15/17 Ranitidine [Zantac -] 150 mg PO BID #60 tablet 02/15/17 Salmeterol/Fluticasone [Advair 100Mcg/50Mcg -] 1 puff IH BID #1 inhaler Sennosides [Senna -] 2 tab PO HS #60 tablet 02/15/17 Zolpidem Tartrate [Ambien] 10 mg PO HS tablet MDD 1 02/15/17 Ibuprofen 800 mg PO TID #30 tablet 04/23/17 Family Disease History - Family Disease History Family Disease History: Diabetes: Mother, Heart Disease: Father, Brother, Sister , Respiratory: Father, Other: Father, Brother, Sister Physical Exam-GI Vital Signs: Vital Signs Temperature 98.7 F 05/13/17 18:16 Pulse Rate 97 H 05/13/17 18:16 Respiratory Rate 20 05/13/17 18:16 Blood Pressure 129/70 05/13/17 18:16 O2 Sat by Pulse Oximetry (%) 94 L 05/13/17 09:00 Constitutional: Yes: Obese Eyes: Yes: Conjunctiva Clear HENT: Yes: Atraumatic Neck: Yes: Supple Cardiovascular: Yes: Regular Rate and Rhythm Respiratory: Yes: Wheezes Gastrointestinal Inspection: No: Ascites ...Auscultate: Yes: Hypoactive Bowel Sounds ...Palpate: Yes: Tenderness (--diffuse). No: Firm/Rigid, Guarding, Hepatomegaly , Soft, Splenomegaly Labs: CBC, BMP 05/13/17 07:00 05/13/17 08:15 Imaging - Results Chest X-ray: Image Reviewed (patient has fecal retention goes against severe colitis, there was no inflammed colon, no toxic megacolon) Problem List - Problems (1) Abdominal pain Assessment/Plan: r/o ischemic colitis R> IY hydration serial abdominal examination, surgery on board Code(s): R10.9 - UNSPECIFIED ABDOMINAL PAIN Qualifiers: Abdominal location: generalized Qualified Code(s): R10.84 - Generalized abdominal pain (2) C. difficile colitis Code(s): A04.72 - ENTEROCOLITIS D/T CLOSTRIDIUM DIFFICILE, NOT SPCF RECUR
[2017-05-13] MEDS: SODIUM CHLORIDE 1,000 ML IV SCH (20:33)
[2017-05-13] MEDS: VANCOMYCIN 250 MG/5 ML ORAL SOLUTION PO SCH (20:41)
[2017-05-13] MEDS ORDERED: INSULIN SLIDING SCALE (NOVOLOG) 1 VIAL SQ SCH (22:00)
[2017-05-13] MEDS: PRAMIPEXOLE DIHYDROCHLORIDE 0.25 MG TABLET PO SCH (22:41)
[2017-05-13] MEDS: MONTELUKAST NA 10 MG TABLET PO SCH (22:41)
[2017-05-14] MEDS: MORPHINE SULFATE 10 MG/1 ML *VIAL IVPUSH PRN ×5 (01:03→20:20)
[2017-05-14] MEDS: VANCOMYCIN 250 MG/5 ML ORAL SOLUTION PO SCH ×4 (01:04→17:26)
[2017-05-14] MEDS: INSULIN SLIDING SCALE (NOVOLOG) 1 VIAL SQ SCH ×4 (06:35→21:41)
[2017-05-14] MEDS: ALPRAZolam 2 MG TABLET PO SCH ×3 (06:35→21:36)
[2017-05-14] MEDS: INSULIN DETEMIR 100 UNITS/ML MDV SQ SCH ×2 (06:36→22:02)
[2017-05-14] MEDS: SODIUM CHLORIDE 1,000 ML IV SCH ×3 (06:39→21:34)
[2017-05-14] MEDS: ALBUTEROL SO4 2.5/IPRATROPIUM 0.5 INH SOL 3 ML VIAL.NEB. NEB SCH ×4 (07:30→20:55)
[2017-05-14] MEDS: LISINOPRIL 20 MG TABLET (FP) PO SCH (10:02)
[2017-05-14] MEDS: DULoxetine HCL 30 MG CAPSULE.DR (FP) PO SCH (10:02)
[2017-05-14] MEDS: HEPARIN NA (PORCINE) 5,000 UNITS/ML 1ML VIAL SQ SCH ×2 (10:03→21:34)
[2017-05-14] MEDS: levETIRAcetam 500 MG TABLET (FP) PO SCH ×2 (10:03→21:36)
[2017-05-14] MEDS: ASCORBIC ACID 500 MG TABLET (FP) PO SCH ×2 (10:03→21:34)
[2017-05-14] MEDS: RANITIDINE HCL 150 MG TABLET (FP) PO SCH ×2 (10:03→21:36)
[2017-05-14] MEDS: ASPIRIN COATED 81 MG TABLET.EC PO SCH (10:03)
[2017-05-14] MEDS: FLUTICASONE/SALMETEROL 100 MCG/50 MCG DISKUS IH SCH ×2 (10:03→21:46)
[2017-05-14] MEDS: TIOTROPIUM BROMIDE 18 MCG/INH (DEVICE W/ 5 CAPSULES) IH SCH (10:04)
--- NOTE | 2017-05-14 11:11 | PN ---
Progress Note, Physician Chief Complaint: abdominal pain History of Present Illness: NAD, complaining of abdominal pain has not had BM since 2 days - Current Medication List Current Medications: Active Medications Albuterol Sulfate (Ventolin 0.083% Nebulizer Soln -) 1 amp NEB Q4H PRN PRN Reason: SHORT OF BREATH/WHEEZING Albuterol/Ipratropium (Duoneb -) 1 amp NEB RQID [facility] Last Admin: 05/14/17 11:02 Dose: 1 amp Alprazolam (Xanax -) 1 mg PO TID [facility] Last Admin: 05/14/17 06:35 Dose: 1 mg Ascorbic Acid (Vitamin C -) 500 mg PO BID [facility] Last Admin: 05/14/17 10:03 Dose: 500 mg Aspirin (Ecotrin -) 81 mg PO DAILY [facility] Last Admin: 05/14/17 10:03 Dose: 81 mg Bisacodyl (Dulcolax -) 5 mg PO DAILY PRN PRN Reason: CONSTIPATION Diltiazem HCl (Cardizem Cd -) 120 mg PO DAILY [facility] Last Admin: 05/14/17 10:03 Dose: 120 mg Duloxetine HCl (Cymbalta -) 60 mg PO DAILY [facility] Last Admin: 05/14/17 10:02 Dose: 60 mg Heparin Sodium (Porcine) (Heparin -) 5,000 unit SQ BID [facility] Last Admin: 05/14/17 10:03 Dose: 5,000 unit Metronidazole (Flagyl 500mg Premixed Ivpb -) 500 mg in 100 mls @ 100 mls/hr IVPB Q8H-IV [facility] Last Admin: 05/14/17 10:01 Dose: 100 mls/hr Sodium Chloride (Normal Saline -) 1,000 mls @ 150 mls/hr IV ASDIR [facility] Stop: 05/15/17 08:54 Last Admin: 05/14/17 06:39 Dose: 150 mls/hr Insulin Aspart (Novolog Vial Sliding Scale -) 1 vial SQ ACHS [facility] PRN Reason: Protocol Last Admin: 05/14/17 06:35 Dose: Not Given Insulin Detemir (Levemir Vial) 17 units SQ BID@0700,2200 [facility] Last Admin: 05/14/17 06:36 Dose: Not Given Levetiracetam (Keppra -) 500 mg PO BID [facility] Last Admin: 05/14/17 10:03 Dose: 500 mg Lisinopril (Prinivil) 20 mg PO DAILY [facility] Last Admin: 05/14/17 10:02 Dose: 20 mg Montelukast Sodium (Singulair -) 10 mg PO [facility] Last Admin: 05/13/17 22:41 Dose: 10 mg Morphine Sulfate (Morphine Injection -) 2 mg IVPUSH Q4H PRN PRN Reason: PAIN LEVEL 6-10 Last Admin: 05/14/17 05:53 Dose: 2 mg Pramipexole Dihydrochloride (Mirapex -) 0.25 mg PO [facility] Last Admin: 05/13/17 22:41 Dose: 0.25 mg Ranitidine HCl (Zantac -) 150 mg PO BID [facility] Last Admin: 05/14/17 10:03 Dose: 150 mg Fluticasone/Salmeterol (Advair 100mcg/50mcg -) 1 puff IH BID [facility] Last Admin: 05/14/17 10:03 Dose: 1 puff Tiotropium [place] (Spiriva -) 18 puff IH DAILY [facility] Last Admin: 05/14/17 10:04 Dose: 1 puff Vancomycin HCl (Vancomycin Oral Solution) 250 mg PO Q6HPO [facility] Last Admin: 05/14/17 05:53 Dose: 250 mg - Objective Vital Signs: Vital Signs Temperature 98.2 F 05/14/17 09:00 Pulse Rate 79 05/14/17 09:00 Respiratory Rate 18 05/14/17 09:00 Blood Pressure 113/61 05/14/17 09:00 O2 Sat by Pulse Oximetry (%) 96 05/13/17 21:00 Constitutional: Yes: Well Nourished, No Distress, Calm Cardiovascular: Yes: Regular Rate and Rhythm Respiratory: Yes: Regular Gastrointestinal: Yes: Normal Bowel Sounds, Abdomen, Obese, Tenderness (diffuse) Musculoskeletal: Yes: WNL Extremities: Yes: WNL Edema: No Peripheral Pulses WNL: Yes Neurological: Yes: Alert, Oriented Psychiatric: Yes: Alert, Oriented Labs: CBC, BMP 05/13/17 07:00 05/13/17 08:15 Problem List - Problems (1) Abdominal pain Assessment/Plan: -ID and GI consult -IV abx -pain management Code(s): R10.9 - UNSPECIFIED ABDOMINAL PAIN Qualifiers: Abdominal location: generalized Qualified Code(s): R10.84 - Generalized abdominal pain (2) C. difficile colitis Assessment/Plan: -ID consult -IV abx -IVF -NPO Code(s): A04.72 - ENTEROCOLITIS D/T CLOSTRIDIUM DIFFICILE, NOT SPCF RECUR (3) Diarrhea Assessment/Plan: resolved Code(s): R19.7 - DIARRHEA, UNSPECIFIED Qualifiers: Diarrhea type: infectious Qualified Code(s): A09 - Infectious gastroenteritis and colitis, unspecified Assessment/Plan see problem list
[2017-05-14] MEDS: BISACODYL 5 MG TABLET.DR (FP) PO PRN (11:46)
--- NOTE | 2017-05-14 13:47 | PN ---
Progress Note, Physician History of Present Illness: patient feeling slightly better no dirrhoea - Current Medication List Current Medications: Active Medications Albuterol Sulfate (Ventolin 0.083% Nebulizer Soln -) 1 amp NEB Q4H PRN PRN Reason: SHORT OF BREATH/WHEEZING Albuterol/Ipratropium (Duoneb -) 1 amp NEB RQID [facility] Last Admin: 05/14/17 11:02 Dose: 1 amp Alprazolam (Xanax -) 1 mg PO TID [facility] Last Admin: 05/14/17 06:35 Dose: 1 mg Ascorbic Acid (Vitamin C -) 500 mg PO BID [facility] Last Admin: 05/14/17 10:03 Dose: 500 mg Aspirin (Ecotrin -) 81 mg PO DAILY [facility] Last Admin: 05/14/17 10:03 Dose: 81 mg Bisacodyl (Dulcolax -) 5 mg PO DAILY PRN PRN Reason: CONSTIPATION Last Admin: 05/14/17 11:46 Dose: 5 mg Diltiazem HCl (Cardizem Cd -) 120 mg PO DAILY [facility] Last Admin: 05/14/17 10:03 Dose: 120 mg Duloxetine HCl (Cymbalta -) 60 mg PO DAILY [facility] Last Admin: 05/14/17 10:02 Dose: 60 mg Heparin Sodium (Porcine) (Heparin -) 5,000 unit SQ BID [facility] Last Admin: 05/14/17 10:03 Dose: 5,000 unit Metronidazole (Flagyl 500mg Premixed Ivpb -) 500 mg in 100 mls @ 100 mls/hr IVPB Q8H-IV [facility] Last Admin: 05/14/17 10:01 Dose: 100 mls/hr Sodium Chloride (Normal Saline -) 1,000 mls @ 150 mls/hr IV ASDIR [facility] Stop: 05/15/17 08:54 Last Admin: 05/14/17 06:39 Dose: 150 mls/hr Insulin Aspart (Novolog Vial Sliding Scale -) 1 vial SQ ACHS [facility] PRN Reason: Protocol Last Admin: 05/14/17 11:53 Dose: Not Given Insulin Detemir (Levemir Vial) 17 units SQ BID@0700,2200 [facility] Last Admin: 05/14/17 06:36 Dose: Not Given Levetiracetam (Keppra -) 500 mg PO BID [facility] Last Admin: 05/14/17 10:03 Dose: 500 mg Lisinopril (Prinivil) 20 mg PO DAILY [facility] Last Admin: 05/14/17 10:02 Dose: 20 mg Montelukast Sodium (Singulair -) 10 mg PO [facility] Last Admin: 05/13/17 22:41 Dose: 10 mg Morphine Sulfate (Morphine Injection -) 2 mg IVPUSH Q4H PRN PRN Reason: PAIN LEVEL 6-10 Last Admin: 05/14/17 11:47 Dose: 2 mg Pramipexole Dihydrochloride (Mirapex -) 0.25 mg PO HS [facility] Last Admin: 05/13/17 22:41 Dose: 0.25 mg Ranitidine HCl (Zantac -) 150 mg PO BID [facility] Last Admin: 05/14/17 10:03 Dose: 150 mg Fluticasone/Salmeterol (Advair 100mcg/50mcg -) 1 puff IH BID [facility] Last Admin: 05/14/17 10:03 Dose: 1 puff Tiotropium [place] (Spiriva -) 18 puff IH DAILY [facility] Last Admin: 05/14/17 10:04 Dose: 1 puff Vancomycin HCl (Vancomycin Oral Solution) 250 mg PO Q6HPO [facility] Last Admin: 05/14/17 11:52 Dose: 250 mg - Objective Vital Signs: Vital Signs Temperature 98.2 F 05/14/17 09:00 Pulse Rate 79 05/14/17 09:00 Respiratory Rate 18 05/14/17 09:00 Blood Pressure 113/61 05/14/17 09:00 O2 Sat by Pulse Oximetry (%) 96 05/14/17 09:00 Constitutional: Yes: Calm, Mild Distress, Obese Cardiovascular: Yes: Regular Rate and Rhythm Respiratory: Yes: Regular, CTA Bilaterally Gastrointestinal: Yes: Normal Bowel Sounds, Soft Musculoskeletal: Yes: WNL Extremities: Yes: WNL Neurological: Yes: Alert, Oriented Psychiatric: Yes: Alert, Oriented Labs: CBC, BMP 05/13/17 07:00 05/13/17 08:15 Assessment/Plan Problem List - Problems (1) C. difficile colitis Thank you for the opportunity to participate in the care of this patient. Code(s): A04.72 - ENTEROCOLITIS D/T CLOSTRIDIUM DIFFICILE, NOT SPCF RECUR (2) Abdominal pain Code(s): R10.9 - UNSPECIFIED ABDOMINAL PAIN Qualifiers: Abdominal location: generalized Qualified Code(s): R10.84 - Generalized abdominal pain (3) Diarrhea Code(s): R19.7 - DIARRHEA, UNSPECIFIED Qualifiers: Diarrhea type: infectious Qualified Code(s): A09 - Infectious gastroenteritis and colitis, unspecified (4) Hypertension associated with diabetes Code(s): E11.59 - TYPE 2 DIABETES MELLITUS WITH OTH CIRCULATORY COMPLICATIONS; I10 - ESSENTIAL (PRIMARY) HYPERTENSION (5) Asthma Code(s): J45.909 - UNSPECIFIED ASTHMA, UNCOMPLICATED Qualifiers: Asthma severity: unspecified severity Asthma persistence: intermittent Asthma complication type: uncomplicated Qualified Code(s): J45.20 - Mild intermittent asthma, uncomplicated (6) Bipolar II disorder Code(s): F31.81 - BIPOLAR II DISORDER (7) Diabetes mellitus Code(s): E11.9 - TYPE 2 DIABETES MELLITUS WITHOUT COMPLICATIONS Qualifiers: Diabetes mellitus type: type 2 Diabetes mellitus complication status: with hyperglycemia Diabetes mellitus lobsterman insulin use: with lobsterman use Qualified Code(s): E11.65 - Type 2 diabetes mellitus with hyperglycemia; Z79.4 - buttermaker helper (current) use of insulin; Z79.4 - assisted (current) use of insulin ; Z79.4 - assisted (current) use of insulin; Z79.4 - assisted (current) use of insulin (8) Hepatitis C Code(s): B19.20 - UNSPECIFIED VIRAL HEPATITIS C WITHOUT HEPATIC COMA Qualifiers: Viral hepatitis chronicity: unspecified Hepatic coma status: without hepatic coma Qualified Code(s): B19.20 - Unspecified viral hepatitis C without hepatic coma (9) Hypothyroidism Code(s): E03.9 - HYPOTHYROIDISM, UNSPECIFIED Qualifiers: Hypothyroidism type: acquired Qualified Code(s): E03.9 - Hypothyroidism, unspecified (10) Seizure disorder Code(s): G40.909 - EPILEPSY, UNSP, NOT INTRACTABLE, WITHOUT STATUS EPILEPTICUS plan conitnue oral vanco rest continue current mgmt patient stable monitor wbc
--- NOTE | 2017-05-14 17:33 | PN ---
Progress Note (short form) - Note Progress Note: Pt with C. diff colitis, seen and examined in bed. States pain is a "tiny, tiny bit" better, but still very bad. Has not had stool since being in the hospital, no diarrhea nor formed BM. No fevers, no nausea. NPO with IVF. On PO vanco and IV flagyl. Has been OOB and ambulating in room. Voiding plenty. Pt denies using regular pain medication at home recently - used occasional ibuprofen for back pain, and had been using tramadol 1-2 daily, but not every day, thinks the last time was within the week. Was also on Xanax and Cymbalta, but was not taken either reliably on daily basis. Vital Signs Period Temp Pulse Resp BP Sys/Sultana Pulse Ox Last 24 Hr 98.2 F-99 F 74-97 18-20 99-138/60-75 96-96 PE: A&O no rash or jaundice abdomen soft, obese, diffusely tender, L>R, similar to yesterday though possibly very slightly less no rebound or guarding extremities warm, no cyanosis Microbiology 05/12/17 18:29 Urine Culture - Preliminary Urine - Urine - Catheterized Staphylococcus Coagulase Neg 05/13/17 04:00 Clostridium difficile Antigen ([facility]) - Final Stool Clostridium difficile Toxin Assay - Final no new labs today A/P: C. diff colitis diarrhea resolving - no stool in 2 days on antibiotics per ID and GI pain meds prn NPO/IVF until pain/tenderness resolve check labs in am - ordered no surgical indications at this time Problem List - Problems (1) C. difficile colitis Code(s): A04.72 - ENTEROCOLITIS D/T CLOSTRIDIUM DIFFICILE, NOT SPCF RECUR (2) Abdominal pain Code(s): R10.9 - UNSPECIFIED ABDOMINAL PAIN Qualifiers: Abdominal location: generalized Qualified Code(s): R10.84 - Generalized abdominal pain (3) Diarrhea Code(s): R19.7 - DIARRHEA, UNSPECIFIED Qualifiers: Diarrhea type: infectious Qualified Code(s): A09 - Infectious gastroenteritis and colitis, unspecified (4) Hypertension associated with diabetes Code(s): E11.59 - TYPE 2 DIABETES MELLITUS WITH OTH CIRCULATORY COMPLICATIONS; I10 - ESSENTIAL (PRIMARY) HYPERTENSION (5) Asthma Code(s): J45.909 - UNSPECIFIED ASTHMA, UNCOMPLICATED Qualifiers: Asthma severity: unspecified severity Asthma persistence: intermittent Asthma complication type: uncomplicated Qualified Code(s): J45.20 - Mild intermittent asthma, uncomplicated (6) Bipolar II disorder Code(s): F31.81 - BIPOLAR II DISORDER (7) Diabetes mellitus Code(s): E11.9 - TYPE 2 DIABETES MELLITUS WITHOUT COMPLICATIONS Qualifiers: Diabetes mellitus type: type 2 Diabetes mellitus complication status: with hyperglycemia Diabetes mellitus ad terminal makeup operator insulin use: with ad terminal makeup operator use Qualified Code(s): E11.65 - Type 2 diabetes mellitus with hyperglycemia; Z79.4 - intermediate frame tender (current) use of insulin; Z79.4 - alf (current) use of insulin ; Z79.4 - intermediate frame tender (current) use of insulin; Z79.4 - intermediate frame tender (current) use of insulin (8) Hepatitis C Code(s): B19.20 - UNSPECIFIED VIRAL HEPATITIS C WITHOUT HEPATIC COMA Qualifiers: Viral hepatitis chronicity: unspecified Hepatic coma status: without hepatic coma Qualified Code(s): B19.20 - Unspecified viral hepatitis C without hepatic coma (9) Hypothyroidism Code(s): E03.9 - HYPOTHYROIDISM, UNSPECIFIED Qualifiers: Hypothyroidism type: acquired Qualified Code(s): E03.9 - Hypothyroidism, unspecified (10) Seizure disorder Code(s): G40.909 - EPILEPSY, UNSP, NOT INTRACTABLE, WITHOUT STATUS EPILEPTICUS
[2017-05-14] MEDS ORDERED: INSULIN (NOVOLOG) ASPART 100 UNITS/ML 10ML VIAL ONE (20:59)
[2017-05-14] MEDS: MONTELUKAST NA 10 MG TABLET PO SCH (21:36)
[2017-05-14] MEDS: PRAMIPEXOLE DIHYDROCHLORIDE 0.25 MG TABLET PO SCH (23:05)
[2017-05-15] MEDS: VANCOMYCIN 250 MG/5 ML ORAL SOLUTION PO SCH ×5 (00:45→23:39)
[2017-05-15] MEDS: MORPHINE SULFATE 10 MG/1 ML *VIAL IVPUSH PRN ×4 (01:44→22:54)
[2017-05-15] MEDS: SODIUM CHLORIDE 1,000 ML IV SCH (01:48)
[2017-05-15] MEDS: ALPRAZolam 2 MG TABLET PO SCH ×3 (06:45→22:51)
[2017-05-15] MEDS: INSULIN SLIDING SCALE (NOVOLOG) 1 VIAL SQ SCH ×4 (06:45→22:50)
[2017-05-15] MEDS: INSULIN DETEMIR 100 UNITS/ML MDV SQ SCH ×2 (06:45→22:49)
[2017-05-15] MEDS: ALBUTEROL SO4 2.5/IPRATROPIUM 0.5 INH SOL 3 ML VIAL.NEB. NEB SCH ×4 (07:44→20:52)
[2017-05-15 08:36] LABS: BASO % 0.8 % (0-2.0); HEMATOCRIT 40.8 % (32.4-45.2); HEMOGLOBIN 13.4 GM/dL (10.7-15.3); LYMPH % 24.3 % (8-40); MCH 29.7 pg (25.7-33.7); MCHC 32.8 g/dl (32.0-36.0); MEAN CELL VOLUME 90.8 fl (80-96); MEAN PLT VOLUME 9.1 fl (7.5-11.1); MONO % 7.4 % (3.8-10.2); NEUT % 64.5 % (42.8-82.8); PLATELET COUNT 267 K/MM3 (134-434); RDW 12.8 % (11.6-15.6); WHITE BLOOD COUNT 9.4 K/mm3 (4.0-10.0)
[2017-05-15 09:04] LABS: ANION GAP 8 (8-16); BLOOD UREA NITROGEN 3 mg/dL (7-18); CALCIUM 7.9 mg/dL (8.5-10.1); CHLORIDE 103 mmol/L (98-107); CO2 28 mmol/L (21-32); CREATININE 0.4 mg/dL (0.55-1.02); GLUCOSE,RANDOM 212 mg/dL (74-106); MAGNESIUM 1.6 mg/dL (1.8-2.4); POTASSIUM 3.6 mmol/L (3.5-5.1); SODIUM 139 mmol/L (136-145)
[2017-05-15] MEDS: ASCORBIC ACID 500 MG TABLET (FP) PO SCH ×2 (09:20→22:51)
[2017-05-15] MEDS: DULoxetine HCL 30 MG CAPSULE.DR (FP) PO SCH (09:20)
[2017-05-15] MEDS: LISINOPRIL 20 MG TABLET (FP) PO SCH (09:20)
[2017-05-15] MEDS: levETIRAcetam 500 MG TABLET (FP) PO SCH ×2 (09:20→22:51)
[2017-05-15] MEDS: RANITIDINE HCL 150 MG TABLET (FP) PO SCH ×2 (09:20→22:51)
[2017-05-15] MEDS: HEPARIN NA (PORCINE) 5,000 UNITS/ML 1ML VIAL SQ SCH ×2 (09:20→22:50)
[2017-05-15] MEDS: ASPIRIN COATED 81 MG TABLET.EC PO SCH (09:20)
[2017-05-15] MEDS: TIOTROPIUM BROMIDE 18 MCG/INH (DEVICE W/ 5 CAPSULES) IH SCH (09:21)
[2017-05-15] MEDS: FLUTICASONE/SALMETEROL 100 MCG/50 MCG DISKUS IH SCH ×2 (09:21→22:51)
[2017-05-15] MEDS ORDERED: MAGNESIUM SULF 50% (8.12 MEQ/2 ML-1 GM VIAL) IVPB ONE (10:23)
--- NOTE | 2017-05-15 10:31 | PN ---
Progress Note (short form) - Note Progress Note: Pt with C. diff colitis, seen and examined in bed. Still having a lot of pain, taking morphine. Has not had stool since being in the hospital, no diarrhea nor formed BM. No fevers, no nausea. NPO with IVF. On PO vanco and IV flagyl. Has been OOB and ambulating in room to bathroom. Voiding plenty. Also c/o pain down left leg and right hand with some numbness "from keeping arm straight for IV." Vital Signs Period Temp Pulse Resp BP Sys/Sultana Pulse Ox Last 24 Hr 98.2 F-98.2 F 74-94 18-20 99-134/60-75 95 PE: A&O no rash or jaundice abdomen soft, obese, less tender on right, tender on left lower > upper, and suprapubic, similar to yesterday, no rebound or guarding extremities warm, no cyanosis CBCD WBC 9.4 K/mm3 (4.0-10.0) 05/15/17 07:52 RBC 4.50 M/mm3 (3.60-5.2) 05/15/17 07:52 Hgb 13.4 GM/dL (10.7-15.3) 05/15/17 07:52 Hct 40.8 % (32.4-45.2) 05/15/17 07:52 MCV 90.8 fl (80-96) 05/15/17 07:52 MCHC 32.8 g/dl (32.0-36.0) 05/15/17 07:52 RDW 12.8 % (11.6-15.6) 05/15/17 07:52 Plt Count 267 K/MM3 (134-434) 05/15/17 07:52 MPV 9.1 fl (7.5-11.1) 05/15/17 07:52 CMP Sodium 139 mmol/L (136-145) 05/15/17 06:10 Potassium 3.6 mmol/L (3.5-5.1) 05/15/17 06:10 Chloride 103 mmol/L (98-107) 05/15/17 06:10 Carbon Dioxide 28 mmol/L (21-32) 05/15/17 06:10 Anion Gap 8 (8-16) 05/15/17 06:10 BUN 3 mg/dL (7-18) L 05/15/17 06:10 Creatinine 0.4 mg/dL (0.55-1.02) L 05/15/17 06:10 Creat Clearance w eGFR > 60 (>60) 05/12/17 19:48 Calcium 7.9 mg/dL (8.5-10.1) L 05/15/17 06:10 Magnesium 1.6 L 05/15/17 06:10 wbc down to normal Mg low - repleting K+ a bit low still A/P: C. diff colitis diarrhea resolving - no stool in 2+ days ok to use prn dulcolax on antibiotics per ID and GI pain meds prn NPO/IVF until pain/tenderness resolve continue to trend labs replete lytes no surgical indications at this time Problem List - Problems (1) C. difficile colitis Code(s): A04.72 - ENTEROCOLITIS D/T CLOSTRIDIUM DIFFICILE, NOT SPCF RECUR (2) Abdominal pain Code(s): R10.9 - UNSPECIFIED ABDOMINAL PAIN Qualifiers: Abdominal location: generalized Qualified Code(s): R10.84 - Generalized abdominal pain (3) Diarrhea Code(s): R19.7 - DIARRHEA, UNSPECIFIED Qualifiers: Diarrhea type: infectious Qualified Code(s): A09 - Infectious gastroenteritis and colitis, unspecified (4) Hypertension associated with diabetes Code(s): E11.59 - TYPE 2 DIABETES MELLITUS WITH OTH CIRCULATORY COMPLICATIONS; I10 - ESSENTIAL (PRIMARY) HYPERTENSION (5) Asthma Code(s): J45.909 - UNSPECIFIED ASTHMA, UNCOMPLICATED Qualifiers: Asthma severity: unspecified severity Asthma persistence: intermittent Asthma complication type: uncomplicated Qualified Code(s): J45.20 - Mild intermittent asthma, uncomplicated (6) Bipolar II disorder Code(s): F31.81 - BIPOLAR II DISORDER (7) Diabetes mellitus Code(s): E11.9 - TYPE 2 DIABETES MELLITUS WITHOUT COMPLICATIONS Qualifiers: Diabetes mellitus type: type 2 Diabetes mellitus complication status: with hyperglycemia Diabetes mellitus terminal operations manager insulin use: with halfway use Qualified Code(s): E11.65 - Type 2 diabetes mellitus with hyperglycemia; Z79.4 - prison (current) use of insulin; Z79.4 - intermediate school teacher (current) use of insulin ; Z79.4 - intermediate school teacher (current) use of insulin; Z79.4 - intermediate school teacher (current) use of insulin (8) Hepatitis C Code(s): B19.20 - UNSPECIFIED VIRAL HEPATITIS C WITHOUT HEPATIC COMA Qualifiers: Viral hepatitis chronicity: unspecified Hepatic coma status: without hepatic coma Qualified Code(s): B19.20 - Unspecified viral hepatitis C without hepatic coma (9) Hypothyroidism Code(s): E03.9 - HYPOTHYROIDISM, UNSPECIFIED Qualifiers: Hypothyroidism type: acquired Qualified Code(s): E03.9 - Hypothyroidism, unspecified (10) Seizure disorder Code(s): G40.909 - EPILEPSY, UNSP, NOT INTRACTABLE, WITHOUT STATUS EPILEPTICUS
[2017-05-15] MEDS ORDERED: MAGNESIUM SULFATE IN WATER 2 GM/50 ML IVPB IVPB ONE (11:00)
[2017-05-15] MEDS ORDERED: INSULIN (NOVOLOG) ASPART 100 UNITS/ML 10ML VIAL ONE (11:11)
--- NOTE | 2017-05-15 11:13 | PN ---
Progress Note, Physician History of Present Illness: Pt seen and examined. Events noted. States she has abd pain but no loose BMs. No other specific complaints. - Current Medication List Current Medications: Active Medications Albuterol Sulfate (Ventolin 0.083% Nebulizer Soln -) 1 amp NEB Q4H PRN PRN Reason: SHORT OF BREATH/WHEEZING Albuterol/Ipratropium (Duoneb -) 1 amp NEB RQID [facility] Last Admin: 05/15/17 07:44 Dose: 1 amp Alprazolam (Xanax -) 1 mg PO TID [facility] Last Admin: 05/15/17 06:45 Dose: 1 mg Ascorbic Acid (Vitamin C -) 500 mg PO BID [facility] Last Admin: 05/15/17 09:20 Dose: 500 mg Aspirin (Ecotrin -) 81 mg PO DAILY [facility] Last Admin: 05/15/17 09:20 Dose: 81 mg Bisacodyl (Dulcolax -) 5 mg PO DAILY PRN PRN Reason: CONSTIPATION Last Admin: 05/14/17 11:46 Dose: 5 mg Diltiazem HCl (Cardizem Cd -) 120 mg PO DAILY [facility] Last Admin: 05/15/17 09:20 Dose: 120 mg Duloxetine HCl (Cymbalta -) 60 mg PO DAILY [facility] Last Admin: 05/15/17 09:20 Dose: 60 mg Heparin Sodium (Porcine) (Heparin -) 5,000 unit SQ BID [facility] Last Admin: 05/15/17 09:20 Dose: 5,000 unit Metronidazole (Flagyl 500mg Premixed Ivpb -) 500 mg in 100 mls @ 100 mls/hr IVPB Q8H-IV [facility] Last Admin: 05/15/17 09:19 Dose: 100 mls/hr MAGNESIUM SULFATE IN WATER (Magnesium Sulf 2 G/50 Ml Bag) 2 gm in 50 mls @ 50 mls/hr IVPB ONCE ONE Stop: 05/15/17 11:59 Insulin Aspart (Novolog Vial Sliding Scale -) 1 vial SQ ACHS [facility] PRN Reason: Protocol Last Admin: 05/15/17 06:45 Dose: Not Given Insulin Detemir (Levemir Vial) 17 units SQ BID@0700,2200 [facility] Last Admin: 05/15/17 06:45 Dose: Not Given Levetiracetam (Keppra -) 500 mg PO BID [facility] Last Admin: 02/03/18 09:20 Dose: 500 mg Lisinopril (Prinivil) 20 mg PO DAILY [facility] Last Admin: 05/15/17 09:20 Dose: 20 mg Montelukast Sodium (Singulair -) 10 mg PO HS [facility] Last Admin: 05/14/17 21:36 Dose: 10 mg Morphine Sulfate (Morphine Injection -) 2 mg IVPUSH Q4H PRN PRN Reason: PAIN LEVEL 6-10 Last Admin: 05/15/17 09:22 Dose: 2 mg Pramipexole Dihydrochloride (Mirapex -) 0.25 mg PO HS [facility] Last Admin: 05/14/17 23:05 Dose: 0.25 mg Ranitidine HCl (Zantac -) 150 mg PO BID [facility] Last Admin: 05/15/17 09:20 Dose: 150 mg Fluticasone/Salmeterol (Advair 100mcg/50mcg -) 1 puff IH BID [facility] Last Admin: 05/15/17 09:21 Dose: 1 puff Tiotropium [place] (Spiriva -) 18 puff IH DAILY [facility] Last Admin: 05/15/17 09:21 Dose: 1 puff Vancomycin HCl (Vancomycin Oral Solution) 250 mg PO Q6HPO [facility] Last Admin: 05/15/17 06:44 Dose: 250 mg - Objective Vital Signs: Vital Signs Temperature 98.2 F 05/15/17 06:00 Pulse Rate 86 05/15/17 06:00 Respiratory Rate 18 05/15/17 06:00 Blood Pressure 129/75 05/15/17 06:00 O2 Sat by Pulse Oximetry (%) 95 05/14/17 21:00 Constitutional: Yes: No Distress Cardiovascular: Yes: Regular Rate and Rhythm Respiratory: Yes: CTA Bilaterally Gastrointestinal: Yes: Normal Bowel Sounds, Soft, Other (generalized tenderness , no distension) Genitourinary: Yes: WNL Extremities: Yes: WNL Neurological: Yes: Alert Labs: CBC, BMP 05/15/17 07:52 05/15/17 06:10 Problem List - Problems (1) C. difficile colitis Code(s): A04.72 - ENTEROCOLITIS D/T CLOSTRIDIUM DIFFICILE, NOT SPCF RECUR (2) Bipolar II disorder Code(s): F31.81 - BIPOLAR II DISORDER (3) Chronic use of opiate drugs therapeutic purposes Code(s): Z79.899 - OTHER NURSING HOME (CURRENT) DRUG THERAPY (4) Diabetes mellitus Code(s): E11.9 - TYPE 2 DIABETES MELLITUS WITHOUT COMPLICATIONS Qualifiers: Diabetes mellitus type: type 2 Diabetes mellitus complication status: with hyperglycemia Diabetes mellitus computer terminal operator insulin use: with shelter use Qualified Code(s): E11.65 - Type 2 diabetes mellitus with hyperglycemia; Z79.4 - regional intermodal truck driver (current) use of insulin; Z79.4 - penitentiary (current) use of insulin ; Z79.4 - penitentiary (current) use of insulin; Z79.4 - penitentiary (current) use of insulin (5) Hepatitis C Code(s): B19.20 - UNSPECIFIED VIRAL HEPATITIS C WITHOUT HEPATIC COMA Qualifiers: Viral hepatitis chronicity: unspecified Hepatic coma status: without hepatic coma Qualified Code(s): B19.20 - Unspecified viral hepatitis C without hepatic coma (6) Hypertension Code(s): I10 - ESSENTIAL (PRIMARY) HYPERTENSION Assessment/Plan -- leukocytosis resolved, no diarrhea -- continue current antibiotics -- maintain contact precautions
--- NOTE | 2017-05-15 12:54 | PN ---
Progress Note, Physician Chief Complaint: ASLEEP NOTES REVIEWED NAD - Current Medication List Current Medications: Active Medications Albuterol Sulfate (Ventolin 0.083% Nebulizer Soln -) 1 amp NEB Q4H PRN PRN Reason: SHORT OF BREATH/WHEEZING Albuterol/Ipratropium (Duoneb -) 1 amp NEB RQID [facility] Last Admin: 05/15/17 11:26 Dose: 1 amp Alprazolam (Xanax -) 1 mg PO TID [facility] Last Admin: 05/15/17 06:45 Dose: 1 mg Ascorbic Acid (Vitamin C -) 500 mg PO BID [facility] Last Admin: 05/15/17 09:20 Dose: 500 mg Aspirin (Ecotrin -) 81 mg PO DAILY [facility] Last Admin: 05/15/17 09:20 Dose: 81 mg Bisacodyl (Dulcolax -) 5 mg PO DAILY PRN PRN Reason: CONSTIPATION Last Admin: 05/14/17 11:46 Dose: 5 mg Diltiazem HCl (Cardizem Cd -) 120 mg PO DAILY [facility] Last Admin: 05/15/17 09:20 Dose: 120 mg Duloxetine HCl (Cymbalta -) 60 mg PO DAILY [facility] Last Admin: 05/15/17 09:20 Dose: 60 mg Heparin Sodium (Porcine) (Heparin -) 5,000 unit SQ BID [facility] Last Admin: 05/15/17 09:20 Dose: 5,000 unit Metronidazole (Flagyl 500mg Premixed Ivpb -) 500 mg in 100 mls @ 100 mls/hr IVPB Q8H-IV [facility] Last Admin: 05/15/17 09:19 Dose: 100 mls/hr Insulin Aspart (Novolog Vial Sliding Scale -) 1 vial SQ ACHS [facility] PRN Reason: Protocol Last Admin: 05/15/17 11:11 Dose: 2 units Insulin Detemir (Levemir Vial) 17 units SQ BID@0700,2200 [facility] Last Admin: 05/15/17 06:45 Dose: Not Given Levetiracetam (Keppra -) 500 mg PO BID [facility] Last Admin: 05/15/17 09:20 Dose: 500 mg Lisinopril (Prinivil) 20 mg PO DAILY [facility] Last Admin: 05/15/17 09:20 Dose: 20 mg Montelukast Sodium (Singulair -) 10 mg PO HS [facility] Last Admin: 05/14/17 21:36 Dose: 10 mg Morphine Sulfate (Morphine Injection -) 2 mg IVPUSH Q4H PRN PRN Reason: PAIN LEVEL 6-10 Last Admin: 05/15/17 09:22 Dose: 2 mg Pramipexole Dihydrochloride (Mirapex -) 0.25 mg PO [facility] Last Admin: 05/14/17 23:05 Dose: 0.25 mg Ranitidine HCl (Zantac -) 150 mg PO BID [facility] Last Admin: 05/15/17 09:20 Dose: 150 mg Fluticasone/Salmeterol (Advair 100mcg/50mcg -) 1 puff IH BID [facility] Last Admin: 05/15/17 09:21 Dose: 1 puff Tiotropium [place] (Spiriva -) 18 puff IH DAILY [facility] Last Admin: 05/15/17 09:21 Dose: 1 puff Vancomycin HCl (Vancomycin Oral Solution) 250 mg PO Q6HPO [facility] Last Admin: 05/15/17 11:12 Dose: 250 mg - Objective Vital Signs: Vital Signs Temperature 98.3 F 05/15/17 09:00 Pulse Rate 85 05/15/17 09:00 Respiratory Rate 18 05/15/17 09:00 Blood Pressure 140/85 05/15/17 09:00 O2 Sat by Pulse Oximetry (%) 96 05/15/17 09:00 Constitutional: Yes: No Distress Eyes: Yes: WNL HENT: Yes: WNL Neck: Yes: WNL Cardiovascular: Yes: WNL Respiratory: Yes: WNL Gastrointestinal: Yes: Tenderness Genitourinary: Yes: WNL Musculoskeletal: Yes: Back Pain Extremities: Yes: WNL Edema: No Peripheral Pulses WNL: Yes Integumentary: Yes: WNL Wound/Incision: Yes: Clean/Dry Neurological: Yes: WNL ...Motor Strength: WNL Psychiatric: Yes: Other Labs: CBC, BMP 05/15/17 07:52 05/15/17 06:10 Problem List - Problems (1) Abdominal pain Code(s): R10.9 - UNSPECIFIED ABDOMINAL PAIN Qualifiers: Abdominal location: generalized Qualified Code(s): R10.84 - Generalized abdominal pain (2) C. difficile colitis Code(s): A04.72 - ENTEROCOLITIS D/T CLOSTRIDIUM DIFFICILE, NOT SPCF RECUR (3) Colitis Code(s): K52.9 - NONINFECTIVE GASTROENTERITIS AND COLITIS, UNSPECIFIED (4) Type 2 diabetes mellitus with diabetic neuropathy, unspecified Code(s): E11.40 - TYPE 2 DIABETES MELLITUS WITH DIABETIC NEUROPATHY, UNSP (5) Bipolar II disorder Code(s): F31.81 - BIPOLAR II DISORDER (6) Hepatitis C Code(s): B19.20 - UNSPECIFIED VIRAL HEPATITIS C WITHOUT HEPATIC COMA Qualifiers: Viral hepatitis chronicity: unspecified Hepatic coma status: without hepatic coma Qualified Code(s): B19.20 - Unspecified viral hepatitis C without hepatic coma (7) Nicotine dependence Code(s): F17.200 - NICOTINE DEPENDENCE, UNSPECIFIED, UNCOMPLICATED (8) Opioid dependence Code(s): F11.20 - OPIOID DEPENDENCE, UNCOMPLICATED Assessment/Plan IV ABX BOWEL REST ON IVF MONITOR BGM ID AND SURGERY EVAL APPRECIATED WILL NEED PAIN MANAGEMENT OUTPATIENT AND PSYCHIATRY F/U NO SUICIDAL OR HOMICIDAL THOUGHTS
[2017-05-15] MEDS ORDERED: PT OWN MED DRAWER 7, Y5N ONE (22:33)
[2017-05-15] MEDS: PRAMIPEXOLE DIHYDROCHLORIDE 0.25 MG TABLET PO SCH (22:51)
[2017-05-15] MEDS: MONTELUKAST NA 10 MG TABLET PO SCH (22:51)
[2017-05-16] MEDS: MORPHINE SULFATE 10 MG/1 ML *VIAL IVPUSH PRN ×3 (03:49→20:13)
[2017-05-16] MEDS: INSULIN DETEMIR 100 UNITS/ML MDV SQ SCH ×2 (06:50→23:25)
[2017-05-16] MEDS: VANCOMYCIN 250 MG/5 ML ORAL SOLUTION PO SCH ×4 (06:50→23:18)
[2017-05-16] MEDS: ALPRAZolam 2 MG TABLET PO SCH ×3 (06:50→23:17)
[2017-05-16] MEDS: INSULIN SLIDING SCALE (NOVOLOG) 1 VIAL SQ SCH ×4 (06:51→23:17)
[2017-05-16] MEDS ORDERED: INSULIN (NOVOLOG) ASPART 100 UNITS/ML 10ML VIAL ONE (07:11)
[2017-05-16] MEDS: ALBUTEROL SO4 2.5/IPRATROPIUM 0.5 INH SOL 3 ML VIAL.NEB. NEB SCH ×4 (07:34→20:49)
[2017-05-16] MEDS: ASPIRIN COATED 81 MG TABLET.EC PO SCH (09:08)
[2017-05-16] MEDS: HEPARIN NA (PORCINE) 5,000 UNITS/ML 1ML VIAL SQ SCH ×2 (09:08→23:16)
[2017-05-16] MEDS: LISINOPRIL 20 MG TABLET (FP) PO SCH (09:08)
[2017-05-16] MEDS: ASCORBIC ACID 500 MG TABLET (FP) PO SCH ×2 (09:08→23:16)
[2017-05-16] MEDS: levETIRAcetam 500 MG TABLET (FP) PO SCH ×2 (09:08→23:16)
[2017-05-16] MEDS: DULoxetine HCL 30 MG CAPSULE.DR (FP) PO SCH (09:08)
[2017-05-16] MEDS: TIOTROPIUM BROMIDE 18 MCG/INH (DEVICE W/ 5 CAPSULES) IH SCH (09:09)
[2017-05-16] MEDS: RANITIDINE HCL 150 MG TABLET (FP) PO SCH ×2 (09:09→23:16)
[2017-05-16] MEDS: FLUTICASONE/SALMETEROL 100 MCG/50 MCG DISKUS IH SCH ×2 (09:09→23:16)
[2017-05-16] MEDS: BISACODYL 5 MG TABLET.DR (FP) PO PRN (11:05)
--- NOTE | 2017-05-16 12:41 | PN ---
Progress Note, Physician Chief Complaint: PATIENT C/O GENERALIZED PAIN LEFT LEG HURTS RADIATING FROM L-SPINE NO FEVERS NO DIARRHEA - Current Medication List Current Medications: Active Medications Albuterol Sulfate (Ventolin 0.083% Nebulizer Soln -) 1 amp NEB Q4H PRN PRN Reason: SHORT OF BREATH/WHEEZING Albuterol/Ipratropium (Duoneb -) 1 amp NEB RQID [facility] Last Admin: 05/16/17 11:35 Dose: Not Given Alprazolam (Xanax -) 1 mg PO TID [facility] Last Admin: 05/16/17 06:50 Dose: 1 mg Ascorbic Acid (Vitamin C -) 500 mg PO BID [facility] Last Admin: 05/16/17 09:08 Dose: 500 mg Aspirin (Ecotrin -) 81 mg PO DAILY [facility] Last Admin: 05/16/17 09:08 Dose: 81 mg Bisacodyl (Dulcolax -) 5 mg PO DAILY PRN PRN Reason: CONSTIPATION Last Admin: 05/16/17 11:05 Dose: 5 mg Diltiazem HCl (Cardizem Cd -) 120 mg PO DAILY [facility] Last Admin: 05/16/17 09:07 Dose: 120 mg Duloxetine HCl (Cymbalta -) 60 mg PO DAILY [facility] Last Admin: 05/16/17 09:08 Dose: 60 mg Heparin Sodium (Porcine) (Heparin -) 5,000 unit SQ BID [facility] Last Admin: 05/16/17 09:08 Dose: 5,000 unit Metronidazole (Flagyl 500mg Premixed Ivpb -) 500 mg in 100 mls @ 100 mls/hr IVPB Q8H-IV [facility] Last Admin: 05/16/17 09:07 Dose: 100 mls/hr Insulin Aspart (Novolog Vial Sliding Scale -) 1 vial SQ ACHS [facility] PRN Reason: Protocol Last Admin: 05/16/17 11:04 Dose: Not Given Insulin Detemir (Levemir Vial) 17 units SQ BID@0700,2200 [facility] Last Admin: 05/16/17 06:50 Dose: Not Given Levetiracetam (Keppra -) 500 mg PO BID [facility] Last Admin: 05/16/17 09:08 Dose: 500 mg Lisinopril (Prinivil) 20 mg PO DAILY [facility] Last Admin: 05/16/17 09:08 Dose: 20 mg Montelukast Sodium (Singulair -) 10 mg PO [facility] Last Admin: 05/15/17 22:51 Dose: 10 mg Morphine Sulfate (Morphine Injection -) 2 mg IVPUSH Q4H PRN PRN Reason: PAIN LEVEL 6-10 Last Admin: 05/16/17 09:08 Dose: 2 mg Pramipexole Dihydrochloride (Mirapex -) 0.25 mg PO [facility] Last Admin: 05/15/17 22:51 Dose: 0.25 mg Ranitidine HCl (Zantac -) 150 mg PO BID [facility] Last Admin: 05/16/17 09:09 Dose: 150 mg Fluticasone/Salmeterol (Advair 100mcg/50mcg -) 1 puff IH BID [facility] Last Admin: 05/16/17 09:09 Dose: 1 puff Tiotropium [place] (Spiriva -) 18 puff IH DAILY [facility] Last Admin: 05/16/17 09:09 Dose: 1 puff Vancomycin HCl (Vancomycin Oral Solution) 250 mg PO Q6HPO [facility] Last Admin: 05/16/17 11:05 Dose: 250 mg - Objective Vital Signs: Vital Signs Temperature 98.9 F 05/16/17 09:00 Pulse Rate 81 05/16/17 09:00 Respiratory Rate 18 05/16/17 09:00 Blood Pressure 155/94 05/16/17 09:00 O2 Sat by Pulse Oximetry (%) 96 05/16/17 09:00 Constitutional: Yes: Mild Distress Eyes: Yes: WNL HENT: Yes: WNL Neck: Yes: WNL Cardiovascular: Yes: WNL Respiratory: Yes: WNL Gastrointestinal: Yes: Tenderness Genitourinary: Yes: WNL Musculoskeletal: Yes: Back Pain, Muscle Weakness Extremities: Yes: WNL Edema: No Peripheral Pulses WNL: Yes Integumentary: Yes: WNL Wound/Incision: Yes: Clean/Dry Neurological: Yes: Pre-Existing Deficit, Weakness ...Motor Strength: LLE, RLE Psychiatric: Yes: Other Labs: CBC, BMP 05/15/17 07:52 05/15/17 06:10 Problem List - Problems (1) Abdominal pain Code(s): R10.9 - UNSPECIFIED ABDOMINAL PAIN Qualifiers: Abdominal location: generalized Qualified Code(s): R10.84 - Generalized abdominal pain (2) C. difficile colitis Code(s): A04.72 - ENTEROCOLITIS D/T CLOSTRIDIUM DIFFICILE, NOT SPCF RECUR (3) Colitis Code(s): K52.9 - NONINFECTIVE GASTROENTERITIS AND COLITIS, UNSPECIFIED (4) Type 2 diabetes mellitus with diabetic neuropathy, unspecified Code(s): E11.40 - TYPE 2 DIABETES MELLITUS WITH DIABETIC NEUROPATHY, UNSP (5) Bipolar II disorder Code(s): F31.81 - BIPOLAR II DISORDER (6) Hepatitis C Code(s): B19.20 - UNSPECIFIED VIRAL HEPATITIS C WITHOUT HEPATIC COMA Qualifiers: Viral hepatitis chronicity: unspecified Hepatic coma status: without hepatic coma Qualified Code(s): B19.20 - Unspecified viral hepatitis C without hepatic coma (7) Nicotine dependence Code(s): F17.200 - NICOTINE DEPENDENCE, UNSPECIFIED, UNCOMPLICATED (8) Opioid dependence Code(s): F11.20 - OPIOID DEPENDENCE, UNCOMPLICATED Assessment/Plan IV ABX BOWEL REST ON IVF MONITOR BGM ID AND SURGERY EVAL APPRECIATED WILL NEED PAIN MANAGEMENT OUTPATIENT AND PSYCHIATRY F/U NO SUICIDAL OR HOMICIDAL THOUGHTS
[2017-05-16] MEDS ORDERED: SODIUM CHLORIDE 1,000 ML IV SCH (12:45)
[2017-05-16 13:16] LABS: HEMATOCRIT 41.4 % (32.4-45.2); HEMOGLOBIN 13.5 GM/dL (10.7-15.3); MCH 29.6 pg (25.7-33.7); MCHC 32.6 g/dl (32.0-36.0); MEAN CELL VOLUME 90.7 fl (80-96); MEAN PLT VOLUME 8.5 fl (7.5-11.1); PLATELET COUNT 279 K/MM3 (134-434); RBC 4.56 M/mm3 (3.60-5.2); RDW 12.9 % (11.6-15.6)
--- NOTE | 2017-05-16 13:29 | PN ---
Progress Note, Physician History of Present Illness: Pt remains afebrile. No new complaints. Diarrhea resolved. Has generalized abd pain. - Current Medication List Current Medications: Active Medications Albuterol Sulfate (Ventolin 0.083% Nebulizer Soln -) 1 amp NEB Q4H PRN PRN Reason: SHORT OF BREATH/WHEEZING Albuterol/Ipratropium (Duoneb -) 1 amp NEB RQID [facility] Last Admin: 05/16/17 11:35 Dose: Not Given Alprazolam (Xanax -) 1 mg PO TID [facility] Last Admin: 05/16/17 06:50 Dose: 1 mg Ascorbic Acid (Vitamin C -) 500 mg PO BID [facility] Last Admin: 05/16/17 09:08 Dose: 500 mg Aspirin (Ecotrin -) 81 mg PO DAILY [facility] Last Admin: 05/16/17 09:08 Dose: 81 mg Bisacodyl (Dulcolax -) 5 mg PO DAILY PRN PRN Reason: CONSTIPATION Last Admin: 05/16/17 11:05 Dose: 5 mg Diltiazem HCl (Cardizem Cd -) 120 mg PO DAILY [facility] Last Admin: 05/16/17 09:07 Dose: 120 mg Duloxetine HCl (Cymbalta -) 60 mg PO DAILY [facility] Last Admin: 05/16/17 09:08 Dose: 60 mg Heparin Sodium (Porcine) (Heparin -) 5,000 unit SQ BID [facility] Last Admin: 05/16/17 09:08 Dose: 5,000 unit Metronidazole (Flagyl 500mg Premixed Ivpb -) 500 mg in 100 mls @ 100 mls/hr IVPB Q8H-IV [facility] Last Admin: 05/16/17 09:07 Dose: 100 mls/hr Sodium Chloride (Normal Saline -) 1,000 mls @ 100 mls/hr IV ASDIR [facility] Last Admin: 05/16/17 13:26 Dose: Not Given Insulin Aspart (Novolog Vial Sliding Scale -) 1 vial SQ ACHS [facility] PRN Reason: Protocol Last Admin: 05/16/17 11:04 Dose: Not Given Insulin Detemir (Levemir Vial) 17 units SQ BID@0700,2200 [facility] Last Admin: 05/16/17 06:50 Dose: Not Given Levetiracetam (Keppra -) 500 mg PO BID [facility] Last Admin: 05/16/17 09:08 Dose: 500 mg Lisinopril (Prinivil) 20 mg PO DAILY [facility] Last Admin: 05/16/17 09:08 Dose: 20 mg Montelukast Sodium (Singulair -) 10 mg PO [facility] Last Admin: 05/15/17 22:51 Dose: 10 mg Morphine Sulfate (Morphine Injection -) 2 mg IVPUSH Q4H PRN PRN Reason: PAIN LEVEL 6-10 Last Admin: 05/16/17 09:08 Dose: 2 mg Pramipexole Dihydrochloride (Mirapex -) 0.25 mg PO HS [facility] Last Admin: 05/15/17 22:51 Dose: 0.25 mg Ranitidine HCl (Zantac -) 150 mg PO BID [facility] Last Admin: 05/16/17 09:09 Dose: 150 mg Fluticasone/Salmeterol (Advair 100mcg/50mcg -) 1 puff IH BID [facility] Last Admin: 05/16/17 09:09 Dose: 1 puff Tiotropium [place] (Spiriva -) 18 puff IH DAILY [facility] Last Admin: 05/16/17 09:09 Dose: 1 puff Vancomycin HCl (Vancomycin Oral Solution) 250 mg PO Q6HPO [facility] Last Admin: 05/16/17 11:05 Dose: 250 mg - Objective Vital Signs: Vital Signs Temperature 98.9 F 05/16/17 09:00 Pulse Rate 81 05/16/17 09:00 Respiratory Rate 18 05/16/17 09:00 Blood Pressure 155/94 05/16/17 09:00 O2 Sat by Pulse Oximetry (%) 96 05/16/17 09:00 Constitutional: Yes: No Distress Cardiovascular: Yes: Regular Rate and Rhythm Respiratory: Yes: Regular Gastrointestinal: Yes: Normal Bowel Sounds, Soft, Tenderness (generalized, nondistended) Genitourinary: Yes: WNL Neurological: Yes: Alert Labs: CBC, BMP 05/16/17 13:01 Problem List - Problems (1) C. difficile colitis Code(s): A04.72 - ENTEROCOLITIS D/T CLOSTRIDIUM DIFFICILE, NOT SPCF RECUR (2) Bipolar II disorder Code(s): F31.81 - BIPOLAR II DISORDER (3) Chronic use of opiate drugs therapeutic purposes Code(s): Z79.899 - OTHER PRISON (CURRENT) DRUG THERAPY (4) Diabetes mellitus Code(s): E11.9 - TYPE 2 DIABETES MELLITUS WITHOUT COMPLICATIONS Qualifiers: Diabetes mellitus type: type 2 Diabetes mellitus complication status: with hyperglycemia Diabetes mellitus watermelon harvesting supervisor insulin use: with watermelon harvesting supervisor use Qualified Code(s): E11.65 - Type 2 diabetes mellitus with hyperglycemia; Z79.4 - termite control service representative (current) use of insulin; Z79.4 - termite control service representative (current) use of insulin ; Z79.4 - termite control service representative (current) use of insulin; Z79.4 - longterm (current) use of insulin (5) Hepatitis C Code(s): B19.20 - UNSPECIFIED VIRAL HEPATITIS C WITHOUT HEPATIC COMA Qualifiers: Viral hepatitis chronicity: unspecified Hepatic coma status: without hepatic coma Qualified Code(s): B19.20 - Unspecified viral hepatitis C without hepatic coma (6) Hypertension Code(s): I10 - ESSENTIAL (PRIMARY) HYPERTENSION Assessment/Plan --diarrhea resolved -- wbc now normal - f/u on labs ordered -- continue current antibiotics
[2017-05-16 13:42] LABS: ANION GAP 6 (8-16); BLOOD UREA NITROGEN 3 mg/dL (7-18); CALCIUM 8.1 mg/dL (8.5-10.1); CHLORIDE 105 mmol/L (98-107); CO2 28 mmol/L (21-32); CREATININE 0.3 mg/dL (0.55-1.02); GLUCOSE,RANDOM 169 mg/dL (74-106); MAGNESIUM 1.7 mg/dL (1.8-2.4); POTASSIUM 3.4 mmol/L (3.5-5.1); SODIUM 139 mmol/L (136-145)
[2017-05-16 14:34] LABS: ERYTHROCYTE SEDIMENTATION RATE 24 mm/hr (0-30)
[2017-05-16] MEDS ORDERED: MAGNESIUM SULF 50% (8.12 MEQ/2 ML-1 GM VIAL) IVPB ONE (15:09)
[2017-05-16] MEDS ORDERED: KCL 10 MEQ IVPB 10 MEQ/100 ML INFUS.BAG IVPB SCH (15:15)
--- NOTE | 2017-05-16 15:17 | PN ---
Progress Note (short form) - Note Progress Note: Pt with C. diff colitis, seen and examined in bed. Resting comfortable, but c/o pain on waking. Still no BM. No fevers, no nausea. NPO with IVF. On PO vanco and IV flagyl. Notes an episode of urinary incontinence. Vital Signs Period Temp Pulse Resp BP Sys/[place]ana Pulse Ox Last 24 Hr 97.7 F-98.9 F 60-82 16-18 107-155/68-98 96-96 PE: A&O no rash or jaundice abdomen soft, obese, less tender on right, tender on left lower > upper, and suprapubic, similar to yesterday, no rebound or guarding extremities warm, no cyanosis CBC, BMP 05/16/17 13:01 05/16/17 13:01 Mg low, K low A/P: C. diff colitis wbc normal, no fevers diarrhea resolved - no stool in 3 days ok to use prn dulcolax on antibiotics per ID and GI pain meds prn - try to minimize narcotics NPO/IVF until pain/tenderness resolve continue to trend labs replete lytes changing fluids to 1/2 NS + 20mEq KCl no surgical indications at this time Problem List - Problems (1) C. difficile colitis Code(s): A04.72 - ENTEROCOLITIS D/T CLOSTRIDIUM DIFFICILE, NOT SPCF RECUR (2) Abdominal pain Code(s): R10.9 - UNSPECIFIED ABDOMINAL PAIN Qualifiers: Abdominal location: generalized Qualified Code(s): R10.84 - Generalized abdominal pain (3) Diarrhea Code(s): R19.7 - DIARRHEA, UNSPECIFIED Qualifiers: Diarrhea type: infectious Qualified Code(s): A09 - Infectious gastroenteritis and colitis, unspecified (4) Hypertension associated with diabetes Code(s): E11.59 - TYPE 2 DIABETES MELLITUS WITH OTH CIRCULATORY COMPLICATIONS; I10 - ESSENTIAL (PRIMARY) HYPERTENSION (5) Asthma Code(s): J45.909 - UNSPECIFIED ASTHMA, UNCOMPLICATED Qualifiers: Asthma severity: unspecified severity Asthma persistence: intermittent Asthma complication type: uncomplicated Qualified Code(s): J45.20 - Mild intermittent asthma, uncomplicated (6) Bipolar II disorder Code(s): F31.81 - BIPOLAR II DISORDER (7) Diabetes mellitus Code(s): E11.9 - TYPE 2 DIABETES MELLITUS WITHOUT COMPLICATIONS Qualifiers: Diabetes mellitus type: type 2 Diabetes mellitus complication status: with hyperglycemia Diabetes mellitus rn long term care insulin use: with halfway use Qualified Code(s): E11.65 - Type 2 diabetes mellitus with hyperglycemia; Z79.4 - correction (current) use of insulin; Z79.4 - rn long term care (current) use of insulin ; Z79.4 - rn long term care (current) use of insulin; Z79.4 - rn long term care (current) use of insulin (8) Hepatitis C Code(s): B19.20 - UNSPECIFIED VIRAL HEPATITIS C WITHOUT HEPATIC COMA Qualifiers: Viral hepatitis chronicity: unspecified Hepatic coma status: without hepatic coma Qualified Code(s): B19.20 - Unspecified viral hepatitis C without hepatic coma (9) Hypothyroidism Code(s): E03.9 - HYPOTHYROIDISM, UNSPECIFIED Qualifiers: Hypothyroidism type: acquired Qualified Code(s): E03.9 - Hypothyroidism, unspecified (10) Seizure disorder Code(s): G40.909 - EPILEPSY, UNSP, NOT INTRACTABLE, WITHOUT STATUS EPILEPTICUS
[2017-05-16] MEDS: SODIUM CHLORIDE 0.45%/POT 20 MEQ/1,000 ML INFUS.BAG IV SCH (15:56)
[2017-05-16] MEDS: POTASSIUM CHLORIDE 10 MEQ in SODIUM CHLORIDE 100 ML IVPB SCH ×2 (19:56→21:27)
[2017-05-16] MEDS: MONTELUKAST NA 10 MG TABLET PO SCH (23:16)
[2017-05-16] MEDS: PRAMIPEXOLE DIHYDROCHLORIDE 0.25 MG TABLET PO SCH (23:18)
[2017-05-17] MEDS: MORPHINE SULFATE 10 MG/1 ML *VIAL IVPUSH PRN ×4 (03:45→23:05)
[2017-05-17] MEDS: INSULIN SLIDING SCALE (NOVOLOG) 1 VIAL SQ SCH ×4 (06:55→22:26)
[2017-05-17] MEDS: INSULIN DETEMIR 100 UNITS/ML MDV SQ SCH ×2 (06:55→22:27)
[2017-05-17] MEDS: VANCOMYCIN 250 MG/5 ML ORAL SOLUTION PO SCH ×4 (06:56→23:48)
[2017-05-17] MEDS: ALPRAZolam 2 MG TABLET PO SCH ×3 (06:56→22:22)
[2017-05-17] MEDS: ALBUTEROL SO4 2.5/IPRATROPIUM 0.5 INH SOL 3 ML VIAL.NEB. NEB SCH ×4 (07:15→20:50)
[2017-05-17 07:29] LABS: BASO % 1.2 % (0-2.0); EOS % 4.8 % (0-4.5); HEMATOCRIT 42.7 % (32.4-45.2); HEMOGLOBIN 14.2 GM/dL (10.7-15.3); LYMPH % 39.6 % (8-40); MCH 30.5 pg (25.7-33.7); MCHC 33.2 g/dl (32.0-36.0); MEAN CELL VOLUME 91.8 fl (80-96); MEAN PLT VOLUME 9.4 fl (7.5-11.1); MONO % 8.9 % (3.8-10.2); NEUT % 45.5 % (42.8-82.8); PLATELET COUNT 312 K/MM3 (134-434); RBC 4.65 M/mm3 (3.60-5.2); WHITE BLOOD COUNT 7.6 K/mm3 (4.0-10.0)
[2017-05-17 07:54] LABS: ANION GAP 7 (8-16); BLOOD UREA NITROGEN 3 mg/dL (7-18); CALCIUM 8.1 mg/dL (8.5-10.1); CHLORIDE 104 mmol/L (98-107); CO2 29 mmol/L (21-32); CREATININE 0.4 mg/dL (0.55-1.02); GLUCOSE,RANDOM 142 mg/dL (74-106); MAGNESIUM 1.8 mg/dL (1.8-2.4); PHOSPHOROUS 2.6 mg/dL (2.5-4.9); POTASSIUM 4.2 mmol/L (3.5-5.1); SODIUM 140 mmol/L (136-145)
[2017-05-17] MEDS: SODIUM CHLORIDE 0.45%/POT 20 MEQ/1,000 ML INFUS.BAG IV SCH ×3 (09:27→23:48)
[2017-05-17] MEDS: ASPIRIN COATED 81 MG TABLET.EC PO SCH (09:27)
[2017-05-17] MEDS: LISINOPRIL 20 MG TABLET (FP) PO SCH (09:27)
[2017-05-17] MEDS: DULoxetine HCL 30 MG CAPSULE.DR (FP) PO SCH (09:27)
[2017-05-17] MEDS: RANITIDINE HCL 150 MG TABLET (FP) PO SCH ×2 (09:28→22:24)
[2017-05-17] MEDS: ASCORBIC ACID 500 MG TABLET (FP) PO SCH ×2 (09:28→22:25)
[2017-05-17] MEDS: levETIRAcetam 500 MG TABLET (FP) PO SCH ×2 (09:28→22:24)
[2017-05-17] MEDS: HEPARIN NA (PORCINE) 5,000 UNITS/ML 1ML VIAL SQ SCH ×2 (09:36→22:21)
[2017-05-17] MEDS: TIOTROPIUM BROMIDE 18 MCG/INH (DEVICE W/ 5 CAPSULES) IH SCH (09:37)
[2017-05-17] MEDS: FLUTICASONE/SALMETEROL 100 MCG/50 MCG DISKUS IH SCH ×2 (09:37→22:14)
--- NOTE | 2017-05-17 10:32 | PN ---
Progress Note, Physician Chief Complaint: abdominal pain History of Present Illness: NAD, complaining of abdominal pain has not had BM since 2 days - Current Medication List Current Medications: Active Medications Albuterol Sulfate (Ventolin 0.083% Nebulizer Soln -) 1 amp NEB Q4H PRN PRN Reason: SHORT OF BREATH/WHEEZING Albuterol/Ipratropium (Duoneb -) 1 amp NEB RQID [facility] Last Admin: 05/17/17 07:15 Dose: 1 amp Alprazolam (Xanax -) 1 mg PO TID [facility] Last Admin: 05/17/17 06:56 Dose: 1 mg Ascorbic Acid (Vitamin C -) 500 mg PO BID [facility] Last Admin: 05/17/17 09:28 Dose: 500 mg Aspirin (Ecotrin -) 81 mg PO DAILY [facility] Last Admin: 05/17/17 09:27 Dose: 81 mg Bisacodyl (Dulcolax -) 5 mg PO DAILY PRN PRN Reason: CONSTIPATION Last Admin: 05/16/17 11:05 Dose: 5 mg Diltiazem HCl (Cardizem Cd -) 120 mg PO DAILY [facility] Last Admin: 05/17/17 09:28 Dose: 120 mg Duloxetine HCl (Cymbalta -) 60 mg PO DAILY [facility] Last Admin: 05/17/17 09:27 Dose: 60 mg Heparin Sodium (Porcine) (Heparin -) 5,000 unit SQ BID [facility] Last Admin: 05/17/17 09:36 Dose: 5,000 unit Potassium Chloride/Sodium Chloride (1/2ns+20meq Kcl) 20 meq in 1,000 mls @ 125 mls/hr IV ASDIR [facility] Last Admin: 05/17/17 09:27 Dose: 125 mls/hr Insulin Aspart (Novolog Vial Sliding Scale -) 1 vial SQ ACHS [facility] PRN Reason: Protocol Last Admin: 05/17/17 06:55 Dose: Not Given Insulin Detemir (Levemir Vial) 17 units SQ BID@0700,2200 [facility] Last Admin: 05/17/17 06:55 Dose: Not Given Levetiracetam (Keppra -) 500 mg PO BID [facility] Last Admin: 05/17/17 09:28 Dose: 500 mg Lisinopril (Prinivil) 20 mg PO DAILY [facility] Last Admin: 02/05/18 09:27 Dose: 20 mg Montelukast Sodium (Singulair -) 10 mg PO [facility] Last Admin: 05/16/17 23:16 Dose: 10 mg Morphine Sulfate (Morphine Injection -) 2 mg IVPUSH Q4H PRN PRN Reason: PAIN LEVEL 6-10 Last Admin: 05/17/17 09:26 Dose: 2 mg Pramipexole Dihydrochloride (Mirapex -) 0.25 mg PO [facility] Last Admin: 05/16/17 23:18 Dose: 0.25 mg Ranitidine HCl (Zantac -) 150 mg PO BID [facility] Last Admin: 05/17/17 09:28 Dose: 150 mg Fluticasone/Salmeterol (Advair 100mcg/50mcg -) 1 puff IH BID [facility] Last Admin: 05/17/17 09:37 Dose: 1 puff Tiotropium [place] (Spiriva -) 18 puff IH DAILY [facility] Last Admin: 05/17/17 09:37 Dose: 1 puff Vancomycin HCl (Vancomycin Oral Solution) 250 mg PO Q6HPO [facility] Last Admin: 05/17/17 06:56 Dose: 250 mg - Objective Vital Signs: Vital Signs Temperature 98.0 F 05/17/17 06:25 Pulse Rate 74 05/17/17 06:25 Respiratory Rate 18 05/17/17 06:25 Blood Pressure 154/93 05/17/17 06:25 O2 Sat by Pulse Oximetry (%) 96 05/16/17 21:00 Constitutional: Yes: Well Nourished, No Distress, Calm Cardiovascular: Yes: Regular Rate and Rhythm Respiratory: Yes: Regular Gastrointestinal: Yes: WNL, Normal Bowel Sounds, Soft Musculoskeletal: Yes: WNL Extremities: Yes: WNL Edema: No Peripheral Pulses WNL: Yes Neurological: Yes: Alert, Oriented Psychiatric: Yes: Alert, Oriented Labs: CBC, BMP 05/17/17 06:50 05/17/17 06:50 Problem List - Problems (1) Abdominal pain Assessment/Plan: -ID and GI consult -IV FLAGYL DISCONTINUED -pain management Code(s): R10.9 - UNSPECIFIED ABDOMINAL PAIN Qualifiers: Abdominal location: generalized Qualified Code(s): R10.84 - Generalized abdominal pain (2) C. difficile colitis Assessment/Plan: -ID consult -PO Vanco -IVF -start clear liquid diet Code(s): A04.72 - ENTEROCOLITIS D/T CLOSTRIDIUM DIFFICILE, NOT SPCF RECUR (3) Diarrhea Assessment/Plan: resolved Code(s): R19.7 - DIARRHEA, UNSPECIFIED Qualifiers: Diarrhea type: infectious Qualified Code(s): A09 - Infectious gastroenteritis and colitis, unspecified Assessment/Plan see problem list
--- NOTE | 2017-05-17 11:28 | PN ---
Progress Note, Physician History of Present Illness: patient still with some dirrhoea abd pain has started to improve - Current Medication List Current Medications: Active Medications Albuterol Sulfate (Ventolin 0.083% Nebulizer Soln -) 1 amp NEB Q4H PRN PRN Reason: SHORT OF BREATH/WHEEZING Albuterol/Ipratropium (Duoneb -) 1 amp NEB RQID [facility] Last Admin: 05/17/17 07:15 Dose: 1 amp Alprazolam (Xanax -) 1 mg PO TID [facility] Last Admin: 05/17/17 06:56 Dose: 1 mg Ascorbic Acid (Vitamin C -) 500 mg PO BID [facility] Last Admin: 05/17/17 09:28 Dose: 500 mg Aspirin (Ecotrin -) 81 mg PO DAILY [facility] Last Admin: 05/17/17 09:27 Dose: 81 mg Bisacodyl (Dulcolax -) 5 mg PO DAILY PRN PRN Reason: CONSTIPATION Last Admin: 05/16/17 11:05 Dose: 5 mg Diltiazem HCl (Cardizem Cd -) 120 mg PO DAILY [facility] Last Admin: 05/17/17 09:28 Dose: 120 mg Duloxetine HCl (Cymbalta -) 60 mg PO DAILY [facility] Last Admin: 05/17/17 09:27 Dose: 60 mg Heparin Sodium (Porcine) (Heparin -) 5,000 unit SQ BID [facility] Last Admin: 05/17/17 09:36 Dose: 5,000 unit Potassium Chloride/Sodium Chloride (1/2ns+20meq Kcl) 20 meq in 1,000 mls @ 125 mls/hr IV ASDIR [facility] Last Admin: 05/17/17 09:27 Dose: 125 mls/hr Insulin Aspart (Novolog Vial Sliding Scale -) 1 vial SQ ACHS [facility] PRN Reason: Protocol Last Admin: 05/17/17 06:55 Dose: Not Given Insulin Detemir (Levemir Vial) 17 units SQ BID@0700,2200 [facility] Last Admin: 05/17/17 06:55 Dose: Not Given Levetiracetam (Keppra -) 500 mg PO BID [facility] Last Admin: 05/17/17 09:28 Dose: 500 mg Lisinopril (Prinivil) 20 mg PO DAILY [facility] Last Admin: 05/17/17 09:27 Dose: 20 mg Montelukast Sodium (Singulair -) 10 mg PO [facility] Last Admin: 05/16/17 23:16 Dose: 10 mg Morphine Sulfate (Morphine Injection -) 2 mg IVPUSH Q4H PRN PRN Reason: PAIN LEVEL 6-10 Last Admin: 05/17/17 09:26 Dose: 2 mg Pramipexole Dihydrochloride (Mirapex -) 0.25 mg PO [facility] Last Admin: 05/16/17 23:18 Dose: 0.25 mg Ranitidine HCl (Zantac -) 150 mg PO BID [facility] Last Admin: 05/17/17 09:28 Dose: 150 mg Fluticasone/Salmeterol (Advair 100mcg/50mcg -) 1 puff IH BID [facility] Last Admin: 05/17/17 09:37 Dose: 1 puff Tiotropium [place] (Spiriva -) 18 puff IH DAILY [facility] Last Admin: 05/17/17 09:37 Dose: 1 puff Vancomycin HCl (Vancomycin Oral Solution) 250 mg PO Q6HPO [facility] Last Admin: 05/17/17 06:56 Dose: 250 mg - Objective Vital Signs: Vital Signs Temperature 98.0 F 05/17/17 06:25 Pulse Rate 74 05/17/17 06:25 Respiratory Rate 18 05/17/17 06:25 Blood Pressure 154/93 05/17/17 06:25 O2 Sat by Pulse Oximetry (%) 96 05/16/17 21:00 Constitutional: Yes: Calm, Mild Distress Cardiovascular: Yes: Regular Rate and Rhythm Respiratory: Yes: Regular, CTA Bilaterally Gastrointestinal: Yes: Normal Bowel Sounds, Soft, Tenderness Musculoskeletal: Yes: WNL Extremities: Yes: WNL Neurological: Yes: Alert, Oriented Psychiatric: Yes: Alert, Oriented Labs: CBC, BMP 05/17/17 06:50 05/17/17 06:50 Assessment/Plan Problem List - Problems (1) C. difficile colitis Thank you for the opportunity to participate in the care of this patient. Code(s): A04.72 - ENTEROCOLITIS D/T CLOSTRIDIUM DIFFICILE, NOT SPCF RECUR (2) Abdominal pain Code(s): R10.9 - UNSPECIFIED ABDOMINAL PAIN Qualifiers: Abdominal location: generalized Qualified Code(s): R10.84 - Generalized abdominal pain (3) Diarrhea Code(s): R19.7 - DIARRHEA, UNSPECIFIED Qualifiers: Diarrhea type: infectious Qualified Code(s): A09 - Infectious gastroenteritis and colitis, unspecified (4) Hypertension associated with diabetes Code(s): E11.59 - TYPE 2 DIABETES MELLITUS WITH OTH CIRCULATORY COMPLICATIONS; I10 - ESSENTIAL (PRIMARY) HYPERTENSION (5) Asthma Code(s): J45.909 - UNSPECIFIED ASTHMA, UNCOMPLICATED Qualifiers: Asthma severity: unspecified severity Asthma persistence: intermittent Asthma complication type: uncomplicated Qualified Code(s): J45.20 - Mild intermittent asthma, uncomplicated (6) Bipolar II disorder Code(s): F31.81 - BIPOLAR II DISORDER (7) Diabetes mellitus Code(s): E11.9 - TYPE 2 DIABETES MELLITUS WITHOUT COMPLICATIONS Qualifiers: Diabetes mellitus type: type 2 Diabetes mellitus complication status: with hyperglycemia Diabetes mellitus custodial insulin use: with testing coordinator use Qualified Code(s): E11.65 - Type 2 diabetes mellitus with hyperglycemia; Z79.4 - waterproof material folder (current) use of insulin; Z79.4 - waterproof material folder (current) use of insulin ; Z79.4 - longterm (current) use of insulin; Z79.4 - waterproof material folder (current) use of insulin (8) Hepatitis C Code(s): B19.20 - UNSPECIFIED VIRAL HEPATITIS C WITHOUT HEPATIC COMA Qualifiers: Viral hepatitis chronicity: unspecified Hepatic coma status: without hepatic coma Qualified Code(s): B19.20 - Unspecified viral hepatitis C without hepatic coma (9) Hypothyroidism Code(s): E03.9 - HYPOTHYROIDISM, UNSPECIFIED Qualifiers: Hypothyroidism type: acquired Qualified Code(s): E03.9 - Hypothyroidism, unspecified (10) Seizure disorder Code(s): G40.909 - EPILEPSY, UNSP, NOT INTRACTABLE, WITHOUT STATUS EPILEPTICUS plan continue current mgmt continue medication rest as per the team and gi
--- NOTE | 2017-05-17 12:00 | PN ---
Progress Note (short form) - Note Progress Note: Pt with C. diff colitis, seen and examined in bed. Resting comfortably, with a little less pain, mostly still LLQ. Had BM, fairly loose and with mucus. No fevers, no nausea. On PO vanco and IV flagyl. Vital Signs Period Temp Pulse Resp BP Sys/Sultana Pulse Ox Last 24 Hr 98.0 F-98.7 F 68-76 18-18 125-154/69-93 96 PE: A&O no rash or jaundice abdomen soft, obese, much less tender on right, tender mainly LLQ, less upper improved from yesterday extremities warm, no cyanosis CBC, BMP 05/17/17 06:50 05/17/17 06:50 Mg, Phos normal A/P: C. diff colitis wbc normal, no fevers pain, tenderness improving steadily on antibiotics per ID and GI pain meds prn - try to minimize narcotics may be ok for clears if pain does not worsen with po continue to trend labs no surgical indications at this time Problem List - Problems (1) C. difficile colitis Code(s): A04.72 - ENTEROCOLITIS D/T CLOSTRIDIUM DIFFICILE, NOT SPCF RECUR (2) Abdominal pain Code(s): R10.9 - UNSPECIFIED ABDOMINAL PAIN Qualifiers: Abdominal location: generalized Qualified Code(s): R10.84 - Generalized abdominal pain (3) Diarrhea Code(s): R19.7 - DIARRHEA, UNSPECIFIED Qualifiers: Diarrhea type: infectious Qualified Code(s): A09 - Infectious gastroenteritis and colitis, unspecified (4) Hypertension associated with diabetes Code(s): E11.59 - TYPE 2 DIABETES MELLITUS WITH OTH CIRCULATORY COMPLICATIONS; I10 - ESSENTIAL (PRIMARY) HYPERTENSION (5) Asthma Code(s): J45.909 - UNSPECIFIED ASTHMA, UNCOMPLICATED Qualifiers: Asthma severity: unspecified severity Asthma persistence: intermittent Asthma complication type: uncomplicated Qualified Code(s): J45.20 - Mild intermittent asthma, uncomplicated (6) Bipolar II disorder Code(s): F31.81 - BIPOLAR II DISORDER (7) Diabetes mellitus Code(s): E11.9 - TYPE 2 DIABETES MELLITUS WITHOUT COMPLICATIONS Qualifiers: Diabetes mellitus type: type 2 Diabetes mellitus complication status: with hyperglycemia Diabetes mellitus terminal gauger insulin use: with terminal gauger use Qualified Code(s): E11.65 - Type 2 diabetes mellitus with hyperglycemia; Z79.4 - assisted (current) use of insulin; Z79.4 - intermediate school teacher (current) use of insulin ; Z79.4 - intermediate school teacher (current) use of insulin; Z79.4 - intermediate school teacher (current) use of insulin (8) Hepatitis C Code(s): B19.20 - UNSPECIFIED VIRAL HEPATITIS C WITHOUT HEPATIC COMA Qualifiers: Viral hepatitis chronicity: unspecified Hepatic coma status: without hepatic coma Qualified Code(s): B19.20 - Unspecified viral hepatitis C without hepatic coma (9) Hypothyroidism Code(s): E03.9 - HYPOTHYROIDISM, UNSPECIFIED Qualifiers: Hypothyroidism type: acquired Qualified Code(s): E03.9 - Hypothyroidism, unspecified (10) Seizure disorder Code(s): G40.909 - EPILEPSY, UNSP, NOT INTRACTABLE, WITHOUT STATUS EPILEPTICUS
--- NOTE | 2017-05-17 12:51 | EKG ---
Test Reason : Blood Pressure : / mmHG Vent. Rate : 072 BPM Atrial Rate : 072 BPM P-R Int : 214 ms QRS Dur : 074 ms QT Int : 398 ms P-R-T Axes : 031 034 018 degrees QTc Int : 435 ms SINUS RHYTHM WITH 1ST DEGREE A-V BLOCK OTHERWISE NORMAL ECG WHEN COMPARED WITH ECG OF 12-MAY-2017 22:27, NO SIGNIFICANT CHANGE WAS FOUND Confirmed by CHRISTOPHER STERN MD ([id number]) on 05/17/2017 12:50:57 PM Referred By: Santhosh DALTON Confirmed By:CHRISTOPHER STERN MD
--- NOTE | 2017-05-17 17:37 | EKG ---
Test Reason : Blood Pressure : / mmHG Vent. Rate : 080 BPM Atrial Rate : 080 BPM P-R Int : 208 ms QRS Dur : 084 ms QT Int : 406 ms P-R-T Axes : 052 042 021 degrees QTc Int : 468 ms NORMAL SINUS RHYTHM NORMAL ECG WHEN COMPARED WITH ECG OF 16-MAY-2017 14:20, NO SIGNIFICANT CHANGE WAS FOUND Confirmed by CHRISTOPHER STERN MD ([id number]) on 05/17/2017 5:37:08 PM Referred By: MYLENE KIM DR Confirmed By:CHRISTOPHER STERN MD
[2017-05-17] MEDS ORDERED: INSULIN (NOVOLOG) ASPART 100 UNITS/ML 10ML VIAL ONE (18:52)
[2017-05-17] MEDS: MONTELUKAST NA 10 MG TABLET PO SCH (22:24)
[2017-05-17] MEDS: PRAMIPEXOLE DIHYDROCHLORIDE 0.25 MG TABLET PO SCH (22:24)
[2017-05-18] MEDS: MORPHINE SULFATE 10 MG/1 ML *VIAL IVPUSH PRN ×3 (05:23→17:22)
[2017-05-18] MEDS: VANCOMYCIN 250 MG/5 ML ORAL SOLUTION PO SCH ×3 (05:31→17:29)
[2017-05-18] MEDS: ALPRAZolam 2 MG TABLET PO SCH ×3 (05:32→22:37)
[2017-05-18] MEDS: INSULIN SLIDING SCALE (NOVOLOG) 1 VIAL SQ SCH ×4 (06:18→22:39)
[2017-05-18] MEDS: INSULIN DETEMIR 100 UNITS/ML MDV SQ SCH ×2 (06:47→22:38)
[2017-05-18] MEDS: ALBUTEROL SO4 2.5/IPRATROPIUM 0.5 INH SOL 3 ML VIAL.NEB. NEB SCH ×4 (08:30→20:16)
[2017-05-18] MEDS: DULoxetine HCL 30 MG CAPSULE.DR (FP) PO SCH (10:38)
[2017-05-18] MEDS: levETIRAcetam 500 MG TABLET (FP) PO SCH ×2 (10:38→22:36)
[2017-05-18] MEDS: LISINOPRIL 20 MG TABLET (FP) PO SCH (10:38)
[2017-05-18] MEDS: ASCORBIC ACID 500 MG TABLET (FP) PO SCH ×2 (10:38→22:36)
[2017-05-18] MEDS: RANITIDINE HCL 150 MG TABLET (FP) PO SCH ×2 (10:39→22:36)
[2017-05-18] MEDS: ASPIRIN COATED 81 MG TABLET.EC PO SCH (10:39)
[2017-05-18] MEDS: HEPARIN NA (PORCINE) 5,000 UNITS/ML 1ML VIAL SQ SCH ×2 (10:39→22:35)
[2017-05-18] MEDS: FLUTICASONE/SALMETEROL 100 MCG/50 MCG DISKUS IH SCH ×2 (10:41→22:35)
[2017-05-18] MEDS: TIOTROPIUM BROMIDE 18 MCG/INH (DEVICE W/ 5 CAPSULES) IH SCH (10:42)
--- NOTE | 2017-05-18 10:53 | PN ---
Progress Note, Physician Chief Complaint: abdominal pain History of Present Illness: NAD, complaining of abdominal pain LUQ,LLQ complains of mucousy diarrhea x 1 today on morphine for pain control. - Current Medication List Current Medications: Active Medications Albuterol Sulfate (Ventolin 0.083% Nebulizer Soln -) 1 amp NEB Q4H PRN PRN Reason: SHORT OF BREATH/WHEEZING Albuterol/Ipratropium (Duoneb -) 1 amp NEB RQID [facility] Last Admin: 05/17/17 20:50 Dose: 1 amp Alprazolam (Xanax -) 1 mg PO TID [facility] Last Admin: 05/18/17 05:32 Dose: 1 mg Ascorbic Acid (Vitamin C -) 500 mg PO BID [facility] Last Admin: 05/18/17 10:38 Dose: 500 mg Aspirin (Ecotrin -) 81 mg PO DAILY [facility] Last Admin: 05/18/17 10:39 Dose: 81 mg Bisacodyl (Dulcolax -) 5 mg PO DAILY PRN PRN Reason: CONSTIPATION Last Admin: 05/16/17 11:05 Dose: 5 mg Diltiazem HCl (Cardizem Cd -) 120 mg PO DAILY [facility] Last Admin: 05/18/17 10:39 Dose: 120 mg Duloxetine HCl (Cymbalta -) 60 mg PO DAILY [facility] Last Admin: 05/18/17 10:38 Dose: 60 mg Heparin Sodium (Porcine) (Heparin -) 5,000 unit SQ BID [facility] Last Admin: 05/18/17 10:39 Dose: 5,000 unit Potassium Chloride/Sodium Chloride (1/2ns+20meq Kcl) 20 meq in 1,000 mls @ 125 mls/hr IV ASDIR [facility] Last Admin: 05/17/17 23:48 Dose: 125 mls/hr Metronidazole (Flagyl 500mg Premixed Ivpb -) 500 mg in 100 mls @ 100 mls/hr IVPB Q8H-IV [facility] Last Admin: 05/18/17 10:38 Dose: 100 mls/hr Insulin Aspart (Novolog Vial Sliding Scale -) 1 vial SQ ACHS [facility] PRN Reason: Protocol Last Admin: 05/18/17 06:18 Dose: Not Given Insulin Detemir (Levemir Vial) 17 units SQ BID@0700,2200 [facility] Last Admin: 05/18/17 06:47 Dose: 17 units Levetiracetam (Keppra -) 500 mg PO BID [facility] Last Admin: 05/18/17 10:38 Dose: 500 mg Lisinopril (Prinivil) 20 mg PO DAILY [facility] Last Admin: 05/18/17 10:38 Dose: 20 mg Montelukast Sodium (Singulair -) 10 mg PO HS [facility] Last Admin: 05/17/17 22:24 Dose: 10 mg Morphine Sulfate (Morphine Injection -) 2 mg IVPUSH Q4H PRN PRN Reason: PAIN LEVEL 6-10 Last Admin: 05/18/17 10:38 Dose: 2 mg Pramipexole Dihydrochloride (Mirapex -) 0.25 mg PO [facility] Last Admin: 05/17/17 22:24 Dose: 0.25 mg Ranitidine HCl (Zantac -) 150 mg PO BID [facility] Last Admin: 05/18/17 10:39 Dose: 150 mg Fluticasone/Salmeterol (Advair 100mcg/50mcg -) 1 puff IH BID [facility] Last Admin: 05/18/17 10:41 Dose: 1 puff Tiotropium [place] (Spiriva -) 18 puff IH DAILY [facility] Last Admin: 05/18/17 10:42 Dose: 1 puff Vancomycin HCl (Vancomycin Oral Solution) 250 mg PO Q6HPO [facility] Last Admin: 05/18/17 05:31 Dose: 250 mg - Objective Vital Signs: Vital Signs Temperature 98.0 F 05/18/17 10:47 Pulse Rate 78 05/18/17 10:47 Respiratory Rate 20 05/18/17 10:47 Blood Pressure 136/92 05/18/17 10:47 O2 Sat by Pulse Oximetry (%) 96 05/17/17 22:00 Constitutional: Yes: Well Nourished, No Distress, Anxious, Mild Distress Cardiovascular: Yes: Regular Rate and Rhythm Respiratory: Yes: Regular Gastrointestinal: Yes: Normal Bowel Sounds, Soft, Tenderness (LUQ,LLQ) Musculoskeletal: Yes: WNL Extremities: Yes: WNL Edema: No Peripheral Pulses WNL: Yes Neurological: Yes: Alert, Oriented Psychiatric: Yes: Alert, Oriented Labs: CBC, BMP 05/17/17 06:50 05/17/17 06:50 Problem List - Problems (1) Abdominal pain Assessment/Plan: -ID and GI consult -IV abx -pain management -tolerated clear liquids---> advance diet -Neurology consult -gabapentin Code(s): R10.9 - UNSPECIFIED ABDOMINAL PAIN Qualifiers: Abdominal location: generalized Qualified Code(s): R10.84 - Generalized abdominal pain (2) C. difficile colitis Assessment/Plan: -ID consult -PO Vanco -IV flagyl -IVF --->advance diet Code(s): A04.72 - ENTEROCOLITIS D/T CLOSTRIDIUM DIFFICILE, NOT SPCF RECUR (3) Diarrhea Assessment/Plan: on/off mucousy diarrhea Code(s): R19.7 - DIARRHEA, UNSPECIFIED Qualifiers: Diarrhea type: infectious Qualified Code(s): A09 - Infectious gastroenteritis and colitis, unspecified (4) Lower extremity pain, left Assessment/Plan: -MRI lumbar spine -neurology consult -gabapentin Code(s): M79.605 - PAIN IN LEFT LEG (5) Diabetes mellitus Assessment/Plan: Uncontrolled at A1C of 11.2 -endocrinology consult Code(s): E11.9 - TYPE 2 DIABETES MELLITUS WITHOUT COMPLICATIONS Qualifiers: Diabetes mellitus type: type 2 Diabetes mellitus complication status: with hyperglycemia 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
--- NOTE | 2017-05-18 14:06 | PN ---
Progress Note, Physician History of Present Illness: continues to have dirrhoea abd pain - Current Medication List Current Medications: Active Medications Albuterol Sulfate (Ventolin 0.083% Nebulizer Soln -) 1 amp NEB Q4H PRN PRN Reason: SHORT OF BREATH/WHEEZING Albuterol/Ipratropium (Duoneb -) 1 amp NEB RQID [facility] Last Admin: 05/18/17 12:46 Dose: 1 amp Alprazolam (Xanax -) 1 mg PO TID [facility] Last Admin: 05/18/17 05:32 Dose: 1 mg Ascorbic Acid (Vitamin C -) 500 mg PO BID [facility] Last Admin: 05/18/17 10:38 Dose: 500 mg Aspirin (Ecotrin -) 81 mg PO DAILY [facility] Last Admin: 05/18/17 10:39 Dose: 81 mg Bisacodyl (Dulcolax -) 5 mg PO DAILY PRN PRN Reason: CONSTIPATION Last Admin: 05/16/17 11:05 Dose: 5 mg Diltiazem HCl (Cardizem Cd -) 120 mg PO DAILY [facility] Last Admin: 05/18/17 10:39 Dose: 120 mg Duloxetine HCl (Cymbalta -) 60 mg PO DAILY [facility] Last Admin: 05/18/17 10:38 Dose: 60 mg Heparin Sodium (Porcine) (Heparin -) 5,000 unit SQ BID [facility] Last Admin: 05/18/17 10:39 Dose: 5,000 unit Potassium Chloride/Sodium Chloride (1/2ns+20meq Kcl) 20 meq in 1,000 mls @ 125 mls/hr IV ASDIR [facility] Last Admin: 05/17/17 23:48 Dose: 125 mls/hr Metronidazole (Flagyl 500mg Premixed Ivpb -) 500 mg in 100 mls @ 100 mls/hr IVPB Q8H-IV [facility] Last Admin: 05/18/17 10:38 Dose: 100 mls/hr Insulin Aspart (Novolog Vial Sliding Scale -) 1 vial SQ ACHS [facility] PRN Reason: Protocol Last Admin: 05/18/17 12:01 Dose: Not Given Insulin Detemir (Levemir Vial) 17 units SQ BID@0700,2200 [facility] Last Admin: 05/18/17 06:47 Dose: 17 units Levetiracetam (Keppra -) 500 mg PO BID [facility] Last Admin: 05/18/17 10:38 Dose: 500 mg Lisinopril (Prinivil) 20 mg PO DAILY [facility] Last Admin: 05/18/17 10:38 Dose: 20 mg Montelukast Sodium (Singulair -) 10 mg PO [facility] Last Admin: 05/17/17 22:24 Dose: 10 mg Morphine Sulfate (Morphine Injection -) 2 mg IVPUSH Q4H PRN PRN Reason: PAIN LEVEL 6-10 Last Admin: 05/18/17 10:38 Dose: 2 mg Pramipexole Dihydrochloride (Mirapex -) 0.25 mg PO [facility] Last Admin: 05/17/17 22:24 Dose: 0.25 mg Ranitidine HCl (Zantac -) 150 mg PO BID [facility] Last Admin: 05/18/17 10:39 Dose: 150 mg Fluticasone/Salmeterol (Advair 100mcg/50mcg -) 1 puff IH BID [facility] Last Admin: 05/18/17 10:41 Dose: 1 puff Tiotropium [place] (Spiriva -) 18 puff IH DAILY [facility] Last Admin: 05/18/17 10:42 Dose: 1 puff Vancomycin HCl (Vancomycin Oral Solution) 250 mg PO Q6HPO [facility] Last Admin: 05/18/17 12:01 Dose: 250 mg - Objective Vital Signs: Vital Signs Temperature 98.0 F 05/18/17 10:47 Pulse Rate 78 05/18/17 10:47 Respiratory Rate 20 05/18/17 10:47 Blood Pressure 136/92 05/18/17 10:47 O2 Sat by Pulse Oximetry (%) 96 05/17/17 22:00 Constitutional: Yes: Calm, Mild Distress Cardiovascular: Yes: Regular Rate and Rhythm Respiratory: Yes: Regular, CTA Bilaterally Gastrointestinal: Yes: Normal Bowel Sounds, Soft Musculoskeletal: Yes: WNL Extremities: Yes: WNL Neurological: Yes: Alert, Oriented Psychiatric: Yes: Alert, Oriented Labs: CBC, BMP 05/17/17 06:50 05/17/17 06:50 Assessment/Plan Problem List - Problems (1) C. difficile colitis Thank you for the opportunity to participate in the care of this patient. Code(s): A04.72 - ENTEROCOLITIS D/T CLOSTRIDIUM DIFFICILE, NOT SPCF RECUR (2) Abdominal pain Code(s): R10.9 - UNSPECIFIED ABDOMINAL PAIN Qualifiers: Abdominal location: generalized Qualified Code(s): R10.84 - Generalized abdominal pain (3) Diarrhea Code(s): R19.7 - DIARRHEA, UNSPECIFIED Qualifiers: Diarrhea type: infectious Qualified Code(s): A09 - Infectious gastroenteritis and colitis, unspecified (4) Hypertension associated with diabetes Code(s): E11.59 - TYPE 2 DIABETES MELLITUS WITH OTH CIRCULATORY COMPLICATIONS; I10 - ESSENTIAL (PRIMARY) HYPERTENSION (5) Asthma Code(s): J45.909 - UNSPECIFIED ASTHMA, UNCOMPLICATED Qualifiers: Asthma severity: unspecified severity Asthma persistence: intermittent Asthma complication type: uncomplicated Qualified Code(s): J45.20 - Mild intermittent asthma, uncomplicated (6) Bipolar II disorder Code(s): F31.81 - BIPOLAR II DISORDER (7) Diabetes mellitus Code(s): E11.9 - TYPE 2 DIABETES MELLITUS WITHOUT COMPLICATIONS Qualifiers: Diabetes mellitus type: type 2 Diabetes mellitus complication status: with hyperglycemia Diabetes mellitus nursing home insulin use: with terminologist use Qualified Code(s): E11.65 - Type 2 diabetes mellitus with hyperglycemia; Z79.4 - senior care (current) use of insulin; Z79.4 - senior care (current) use of insulin ; 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; Z79.4 - senior care (current) use of insulin (8) Hepatitis C Code(s): B19.20 - UNSPECIFIED VIRAL HEPATITIS C WITHOUT HEPATIC COMA Qualifiers: Viral hepatitis chronicity: unspecified Hepatic coma status: without hepatic coma Qualified Code(s): B19.20 - Unspecified viral hepatitis C without hepatic coma (9) Hypothyroidism Code(s): E03.9 - HYPOTHYROIDISM, UNSPECIFIED Qualifiers: Hypothyroidism type: acquired Qualified Code(s): E03.9 - Hypothyroidism, unspecified (10) Seizure disorder Code(s): G40.909 - EPILEPSY, UNSP, NOT INTRACTABLE, WITHOUT STATUS EPILEPTICUS plan continue current mgmt continue medication rest as per the team and gi still with dirrhoea
[2017-05-18] MEDS: GABAPENTIN 300 MG CAPSULE (FP) PO SCH ×2 (14:52→22:36)
[2017-05-18] MEDS: SODIUM CHLORIDE 0.45%/POT 20 MEQ/1,000 ML INFUS.BAG IV SCH (17:25)
--- NOTE | 2017-05-18 18:40 | PN ---
GI Progress Note Subjective: frequent diarrhea, on Vanco and flagyl - Objective Vital Signs: Vital Signs Temperature 98.9 F 05/18/17 17:47 Pulse Rate 70 05/18/17 17:47 Respiratory Rate 20 05/18/17 17:47 Blood Pressure 156/93 05/18/17 17:47 O2 Sat by Pulse Oximetry (%) 96 05/17/17 22:00 Constitutional: Well Nourished Eyes: Yes: Conjunctiva Clear HENT: Yes: Atraumatic Neck: Yes: Trachea Midline Cardiovascular: Yes: Regular Rate and Rhythm Respiratory: Yes: CTA Bilaterally ...Palpate: Yes: Soft, Tenderness (--diffuse--mild). No: Firm/Rigid, Guarding, Hepatomegaly, Mass, Pulsatile Mass, Splenomegaly Labs: CBC, BMP 05/17/17 06:50 05/17/17 06:50 Problem List - Problems (1) Abdominal pain Assessment/Plan: resolving Code(s): R10.9 - UNSPECIFIED ABDOMINAL PAIN Qualifiers: Abdominal location: generalized Qualified Code(s): R10.84 - Generalized abdominal pain (2) C. difficile colitis Assessment/Plan: continue antibiotics low fiber lactose free diet Code(s): A04.72 - ENTEROCOLITIS D/T CLOSTRIDIUM DIFFICILE, NOT SPCF RECUR
--- NOTE | 2017-05-18 19:01 | PN ---
Progress Note (short form) - Note Progress Note: Pt with C. diff colitis, seen and examined in bed. Resting comfortably, with a little less pain, mostly still LLQ. Having watery/mucusy BMs. No fevers, no nausea. Diet was advanced but pt not eating much yet. On PO vanco and IV flagyl. Vital Signs Period Temp Pulse Resp BP Sys/Sultana Pulse Ox Last 24 Hr 98.0 F-98.9 F 70-80 20-20 119-156/66-93 96-96 PE: A&O no rash or jaundice abdomen soft, obese, minimally tender on right, continuous still operator mainly LLQ, less upper slightly improved from yesterday extremities warm, no cyanosis no new labs A/P: C. diff colitis no fevers, tolerating po, having diarrhea pain, tenderness improving slowly but steadily on antibiotics per ID and GI pain meds prn - try to minimize narcotics continue to trend labs no surgical indications at this time Problem List - Problems (1) C. difficile colitis Code(s): A04.72 - ENTEROCOLITIS D/T CLOSTRIDIUM DIFFICILE, NOT SPCF RECUR (2) Abdominal pain Code(s): R10.9 - UNSPECIFIED ABDOMINAL PAIN Qualifiers: Abdominal location: generalized Qualified Code(s): R10.84 - Generalized abdominal pain (3) Diarrhea Code(s): R19.7 - DIARRHEA, UNSPECIFIED Qualifiers: Diarrhea type: infectious Qualified Code(s): A09 - Infectious gastroenteritis and colitis, unspecified (4) Hypertension associated with diabetes Code(s): E11.59 - TYPE 2 DIABETES MELLITUS WITH OTH CIRCULATORY COMPLICATIONS; I10 - ESSENTIAL (PRIMARY) HYPERTENSION (5) Asthma Code(s): J45.909 - UNSPECIFIED ASTHMA, UNCOMPLICATED Qualifiers: Asthma severity: unspecified severity Asthma persistence: intermittent Asthma complication type: uncomplicated Qualified Code(s): J45.20 - Mild intermittent asthma, uncomplicated (6) Bipolar II disorder Code(s): F31.81 - BIPOLAR II DISORDER (7) Diabetes mellitus Code(s): E11.9 - TYPE 2 DIABETES MELLITUS WITHOUT COMPLICATIONS Qualifiers: Diabetes mellitus type: type 2 Diabetes mellitus complication status: with hyperglycemia Diabetes mellitus remote computer terminal operator insulin use: with detention use Qualified Code(s): E11.65 - Type 2 diabetes mellitus with hyperglycemia; Z79.4 - USP (current) use of insulin; Z79.4 - USP (current) use of insulin ; Z79.4 - USP (current) use of insulin; Z79.4 - remote computer terminal operator (current) use of insulin (8) Hepatitis C Code(s): B19.20 - UNSPECIFIED VIRAL HEPATITIS C WITHOUT HEPATIC COMA Qualifiers: Viral hepatitis chronicity: unspecified Hepatic coma status: without hepatic coma Qualified Code(s): B19.20 - Unspecified viral hepatitis C without hepatic coma (9) Hypothyroidism Code(s): E03.9 - HYPOTHYROIDISM, UNSPECIFIED Qualifiers: Hypothyroidism type: acquired Qualified Code(s): E03.9 - Hypothyroidism, unspecified (10) Seizure disorder Code(s): G40.909 - EPILEPSY, UNSP, NOT INTRACTABLE, WITHOUT STATUS EPILEPTICUS
--- NOTE | 2017-05-18 20:33 | HOSP ---
Subjective - Review of Symptoms Events since last encounter: Hospitalist Encounter Notified by primary RN that the patient is reporting pain and swelling to R- arm at IV site. Arrived to bedside, patient is alert and Subjective: A/P 56yF with PMH NIDDM, HTN, ANxiety, depression, chronic pain, former IVDA, COPD, CHF, Hep C, Bipolar, seizure disorder, thyroid disorder presented to the ED with persistent abdominal pain and diarrhea. Currently being treated for C- diff Plan: Apply ice/warm compresses to R-AC Elevate extremity Morphine Sulfate changed from IV to IM Consider IR for PICC placement RN to inform ID regarding ABX RN to inform PCP of tonight's events Neuro vascular checks Musculoskeletal: Yes: Back Pain, Extremity Pain (RAC), Other (RAC swelling/ redness) Physical Examination Vital Signs: Vital Signs Temperature 98.9 F 05/18/17 17:47 Pulse Rate 70 05/18/17 17:47 Respiratory Rate 20 05/18/17 17:47 Blood Pressure 156/93 05/18/17 17:47 O2 Sat by Pulse Oximetry (%) 96 05/18/17 09:00 Constitutional: Yes: Well Nourished, Anxious, Mild Distress Eyes: Yes: WNL, Conjunctiva Clear, EOM Intact, PERRL HENT: Yes: WNL, Atraumatic, Normocephalic Neck: Yes: WNL, Supple, Trachea Midline Cardiovascular: Yes: WNL, Regular Rate and Rhythm, S1, S2 Respiratory: Yes: WNL, Regular, CTA Bilaterally Gastrointestinal: Yes: Normal Bowel Sounds, Abdomen, Obese, Tenderness ( generalized), Tenderness, Epigastrium Renal/: Yes: WNL Breast(s): Yes: WNL Musculoskeletal: Yes: Back Pain Extremities: Yes: Erythema (RAC) Peripheral Pulses WNL: Yes Integumentary: Yes: Erythema (RAC) Neurological: Yes: WNL, Alert, Oriented ...Motor Strength: WNL Psychiatric: Yes: WNL, Alert, Oriented Labs: CBC, BMP 05/17/17 06:50 05/17/17 06:50 Laboratory Results - last 24 hr 05/17/17 05/17/17 05/18/17 18:03 22:20 05:30 POC Glucometer 204 158 164 05/18/17 12:00 POC Glucometer 154 Intake & Output 0205/16/17 05/17/17 05/18/17 23:59 23:59 23:59 23:59 Intake Total 4350 1800 1175 2575 Balance 4350 1800 1175 2575 Weight 93.95 kg 93.667 kg 93.213 kg Current Medications Generic Name Dose Route Start Last Admin Trade Name Freq PRN Reason Stop Dose Admin Albuterol Sulfate 1 amp 05/13/17 04:39 Ventolin 0.083% Nebulizer Soln - NEB Q4H PRN SHORT OF BREATH/WHEEZING Albuterol/Ipratropium 1 amp 05/13/17 08:00 05/18/17 17:23 Duoneb - NEB Not Given RQID [facility] Alprazolam 1 mg 05/13/17 06:00 05/18/17 14:53 Xanax - PO 1 mg TID [facility] Administration Ascorbic Acid 500 mg 05/13/17 10:00 05/18/17 10:38 Vitamin C - PO 500 mg BID ILYA Administration Aspirin 81 mg 05/13/17 10:00 05/18/17 10:39 Ecotrin - PO 81 mg DAILY [facility] Administration Bisacodyl 5 mg 05/14/17 11:08 05/16/17 11:05 Dulcolax - PO 5 mg DAILY PRN Administration CONSTIPATION Diltiazem HCl 120 mg 05/13/17 10:00 05/18/17 10:39 Cardizem Cd - PO 120 mg DAILY ILYA Administration Duloxetine HCl 60 mg 05/13/17 10:00 05/18/17 10:38 Cymbalta - PO 60 mg DAILY ILYA Administration Gabapentin 300 mg 05/18/17 14:30 05/18/17 14:52 Neurontin - PO 300 mg TID [facility] Administration Heparin Sodium (Porcine) 5,000 unit 05/13/17 10:00 05/18/17 10:39 Heparin - SQ 5,000 unit BID [facility] Administration Potassium Chloride/Sodium Chloride 20 meq in 1,000 mls @ 125 mls/hr 05/16/17 15:15 05/18/17 17:25 1/2ns+20meq Kcl IV Not Given ASDIR [facility] Insulin Aspart 1 vial 05/13/17 16:30 05/18/17 17:28 Novolog Vial Sliding Scale - SQ Not Given ACHS [facility] Protocol Insulin Detemir 17 units 05/13/17 07:00 05/18/17 06:47 Levemir Vial SQ 17 units BID@0700,2200 ILYA Administration Levetiracetam 500 mg 05/13/17 10:00 05/18/17 10:38 Keppra - PO 500 mg BID ILYA Administration Lisinopril 20 mg 05/13/17 10:00 05/18/17 10:38 Prinivil PO 20 mg DAILY ILYA Administration Montelukast Sodium 10 mg 05/13/17 22:00 05/17/17 22:24 Singulair - PO 10 mg HS ILYA Administration Morphine Sulfate 2 mg 05/18/17 20:36 Morphine Injection - IM Q4H PRN PAIN LEVEL 6-10 Pramipexole Dihydrochloride 0.25 mg 05/13/17 22:00 05/17/17 22:24 Mirapex - PO 0.25 mg HS ILYA Administration Ranitidine HCl 150 mg 05/13/17 10:00 05/18/17 10:39 Zantac - PO 150 mg BID ILYA Administration Fluticasone/Salmeterol 1 puff 05/13/17 10:00 05/18/17 10:41 Advair 100mcg/50mcg - IH 1 puff BID ILYA Administration Tiotropium [place] 18 puff 05/13/17 10:00 05/18/17 10:42 Spiriva - IH 1 puff DAILY ILYA Administration Vancomycin HCl 250 mg 05/13/17 20:00 05/18/17 17:29 Vancomycin Oral Solution PO 250 mg Q6HPO ILYA Administration
[2017-05-18] MEDS ORDERED: INSULIN (NOVOLOG) ASPART 100 UNITS/ML 10ML VIAL ONE (20:41)
[2017-05-18] MEDS: PRAMIPEXOLE DIHYDROCHLORIDE 0.25 MG TABLET PO SCH (22:36)
[2017-05-18] MEDS: MONTELUKAST NA 10 MG TABLET PO SCH (22:36)
[2017-05-18] MEDS: MORPHINE SULFATE 10 MG/1 ML *VIAL IM PRN (22:44)
[2017-05-19] MEDS: VANCOMYCIN 250 MG/5 ML ORAL SOLUTION PO SCH ×4 (00:23→18:13)
--- NOTE | 2017-05-19 01:45 | CONSULT ---
Consult Consult Specialty:: endocrine/diabetes mellitus Referred by:: dr.ammir trevino Reason for Consultation:: diabetes mellitus - History of Present Illness Chief Complaint: high sugars History of Present Illness: 56 year old female with multiple medical problems who presented to the ED with persistent abdominal pain with diarrhea. She has history of diabetes mellitus with diabetic polyneuropathy,addmits to diet non compliance,feeling weakness in legs difficulty walking from back pain and nerve pain. she takes lantus once a day but does not check sugars regularly,she has memory loss and forgets to check her sugars. 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 pt thinks she may have had one in the past (L facial droop)), Seizure. No: Alzheimer's Cardio/Vascular: Yes: CAD, HTN. No: AFIB Pulmonary: Yes: Asthma, COPD Gastrointestinal: Yes: Hiatal Hernia, Other ("colitis" mid-April) Hepatobiliary: Yes: Hepatitis C (from a blood transfusion) ...: No Infectious Disease: Yes: MRSA (R thigh abscess 02/26) Psych: Yes: Addictions, Anxiety, Bipolar, Depression Musculoskeletal: Yes: Chronic low back pain Endocrine: Yes: Diabetes Mellitus - Past Surgical History Past Surgical History: Yes: Appendectomy, Cholecystectomy (laparoscopic), Colonoscopy, Hysterectomy (vaginal) Additional Surgical History: I&D R thigh abscess 02/26 - Alcohol/Substance Use Hx Alcohol Use: No History of Substance Use: reports: Cocaine (crack) - Smoking History Smoking history: Current every day smoker Have you smoked in the past 12 months: Yes Aproximately how many cigarettes per day: 20 - Social History Usual Living Arrangement: With Spouse Occupation: disabled History of Recent Travel: No Home Medications - Allergies Allergies/Adverse Reactions: Allergies Allergy/AdvReac Type Severity Reaction Status Date / Time No Known Allergies Allergy Verified 05/12/17 17:19 - Home Medications Home Medications: Ambulatory Orders Albuterol Sulfate Inhaler - [Ventolin HFA Inhaler -] 2 inh PO Q4H PRN 11/06/14 Duloxetine HCl 60 mg PO DAILY 12/21/14 Famotidine [Pepcid -] 40 mg PO DAILY 12/21/14 Tiotropium [place] [Spiriva] 18 mcg IH DAILY 12/21/14 Alprazolam [Xanax] 1 mg PO TID 07/13/16 Tramadol HCl 100 mg PO TID 07/13/16 Aspirin Coated [Ecotrin -] 81 mg PO DAILY #30 tab 07/22/16 Diltiazem Cd [Cardizem Cd -] 120 mg PO DAILY #30 cap 07/22/16 Insulin Aspart Prot/Insuln Asp [Novolog Mix 70-30 Flexpen Syrn] 35 unit SQ BID # 1 box 07/22/16 Levetiracetam [Keppra -] 500 mg PO BID tablet 07/22/16 Lisinopril [Prinivil] 20 mg PO DAILY #30 tablet 07/22/16 Montelukast Na [Singulair -] 10 mg PO HS #30 tablet 07/22/16 Ascorbic Acid [Vitamin C -] 500 mg PO BID #60 tablet 02/15/17 Docusate Sodium [Colace -] 300 mg PO HS #30 cap 02/15/17 Doxycycline Hyclate [Vibramycin -] 100 mg PO BID@1000,1800 #14 cap 02/15/17 Insulin (Levemir) [Levemir Flexpen -] 20 units SQ BID #4 pen 02/15/17 Insulin (Novolog) [Novolog Flexpen] 5 units SQ ACHS #4 pen 02/15/17 Montelukast Na [Singulair -] 10 mg PO HS #30 tablet 02/15/17 Pramipexole Dihydrochloride [Mirapex -] 0.25 mg PO HS #30 tablet 02/15/17 Ranitidine [Zantac -] 150 mg PO BID #60 tablet 02/15/17 Salmeterol/Fluticasone [Advair 100Mcg/50Mcg -] 1 puff IH BID #1 inhaler Sennosides [Senna -] 2 tab PO HS #60 tablet 02/15/17 Zolpidem Tartrate [Ambien] 10 mg PO HS tablet MDD 1 02/15/17 metFORMIN HCL [Glucophage -] 500 mg PO BID@0700,1630 #60 tablet 02/15/17 oxyCODONE HCL [Roxicodone -] 5 mg PO QID PRN #0 tablet MDD 4 02/15/17 Ibuprofen 800 mg PO TID #30 tablet 04/23/17 Family Disease History - Family Disease History Family Disease History: Diabetes: Mother, Heart Disease: Father, Brother, Sister , Respiratory: Father, Other: Father, Brother, Sister Physical Exam Vital Signs: Vital Signs Temperature 98.9 F 05/18/17 17:47 Pulse Rate 70 05/18/17 17:47 Respiratory Rate 20 05/18/17 21:00 Blood Pressure 156/93 05/18/17 17:47 O2 Sat by Pulse Oximetry (%) 94 L 05/18/17 21:00 Labs: CBC, BMP 05/17/17 06:50 05/17/17 06:50 Assessment/Plan Current Active Problems Abdominal pain (Acute) C. difficile colitis (Acute) Colitis (Acute) Lower extremity pain, left (Acute) diabetes mellitus hyperglycemia diabetic neuropathy Laboratory Results - last 24 hr 05/18/17 05/18/17 05/18/17 05:30 12:00 17:27 POC Glucometer 164 154 172 05/18/17 22:27 POC Glucometer 187 Laboratory Tests 05/17/17 05/17/17 05/17/17 06:50 06:50 06:54 Sodium 140 Potassium 4.2 Chloride 104 Carbon Dioxide 29 Anion Gap 7 L BUN 3 L Creatinine 0.4 L POC Glucometer 141 Hemoglobin A1c % 11.4 H 05/17/17 05/17/17 05/17/17 12:09 18:03 22:20 Sodium Potassium Chloride Carbon Dioxide Anion Gap BUN Creatinine POC Glucometer 176 204 158 Hemoglobin A1c % 05/18/17 05:30 Sodium Potassium Chloride Carbon Dioxide Anion Gap BUN Creatinine POC Glucometer 164 Hemoglobin A1c % plan: bgm achs novolog scale coverage levemir 17 units bid diet 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
[2017-05-19] MEDS: MORPHINE SULFATE 10 MG/1 ML *VIAL IM PRN ×3 (05:21→22:38)
[2017-05-19] MEDS: GABAPENTIN 300 MG CAPSULE (FP) PO SCH ×4 (07:27→22:20)
[2017-05-19] MEDS: INSULIN DETEMIR 100 UNITS/ML MDV SQ SCH ×2 (07:28→22:27)
[2017-05-19] MEDS: ALPRAZolam 2 MG TABLET PO SCH ×3 (07:28→22:21)
[2017-05-19] MEDS: INSULIN SLIDING SCALE (NOVOLOG) 1 VIAL SQ SCH ×4 (07:28→22:26)
[2017-05-19] MEDS: ALBUTEROL SO4 2.5/IPRATROPIUM 0.5 INH SOL 3 ML VIAL.NEB. NEB SCH ×4 (07:50→21:41)
--- NOTE | 2017-05-19 09:50 | CONSULT ---
Consult - text type - Consultation Consultation Note: Neurology CHIEF COMPLAINT: Abd pain, low back pain HISTORY OF PRESENT ILLNESS: This is a 56 year old female with multiple medical problems who presented to the ED with persistent abdominal pain with diarrhea. She was seen in the ED on for same and DC home on PO flagyl 500mg BID and levaquin 500mg daily. She was seen by Dr. Sandhu in his office on 05/03/17 and sent to the ED by Dr. Pineda for admission. Patient was c/o of pain below T4 level down her legs. She reports prior spinal surgery in 2013 from outside provider. She reports has been having ongoing pain. Is on Gabapentin 300mg three times a day and Cymbalta which we discussed. Will order CT L spine for her to evaluate for acute changes. May benefit from therapy and possibly rehab if difficulty with ambulation. Recent Travel: pt denies PAST MEDICAL HISTORY: NIDDM, HTN, ANxiety, depression, chronic pain, former IVDA, COPD,CHF, Hep C Bipolar, seizure disorder, thyroid disorder PAST SURGICAL HISTORY: stent Social History: Smoking: current 1ppd Alcohol: pt denies Drugs: unk Family History: unk Allergies No Known Allergies Allergy (Verified 05/12/17 17:19) Active Medications Albuterol Sulfate (Ventolin 0.083% Nebulizer Soln -) 1 amp NEB Q4H PRN PRN Reason: SHORT OF BREATH/WHEEZING Albuterol/Ipratropium (Duoneb -) 1 amp NEB RQID [facility] Last Admin: 05/18/17 20:16 Dose: Not Given Alprazolam (Xanax -) 1 mg PO TID [facility] Last Admin: 05/19/17 07:28 Dose: 1 mg Ascorbic Acid (Vitamin C -) 500 mg PO BID [facility] Last Admin: 05/18/17 22:36 Dose: 500 mg Aspirin (Ecotrin -) 81 mg PO DAILY [facility] Last Admin: 05/18/17 10:39 Dose: 81 mg Bisacodyl (Dulcolax -) 5 mg PO DAILY PRN PRN Reason: CONSTIPATION Last Admin: 05/16/17 11:05 Dose: 5 mg Diltiazem HCl (Cardizem Cd -) 120 mg PO DAILY [facility] Last Admin: 05/18/17 10:39 Dose: 120 mg Duloxetine HCl (Cymbalta -) 60 mg PO DAILY [facility] Last Admin: 05/18/17 10:38 Dose: 60 mg Gabapentin (Neurontin -) 300 mg PO TID [facility] Last Admin: 05/19/17 07:27 Dose: 300 mg Heparin Sodium (Porcine) (Heparin -) 5,000 unit SQ BID [facility] Last Admin: 05/18/17 22:35 Dose: 5,000 unit Potassium Chloride/Sodium Chloride (1/2ns+20meq Kcl) 20 meq in 1,000 mls @ 125 mls/hr IV ASDIR [facility] Last Admin: 05/18/17 17:25 Dose: Not Given Insulin Aspart (Novolog Vial Sliding Scale -) 1 vial SQ ACHS [facility] PRN Reason: Protocol Last Admin: 05/19/17 07:28 Dose: Not Given Insulin Detemir (Levemir Vial) 17 units SQ BID@0700,2200 [facility] Last Admin: 05/19/17 07:28 Dose: 17 units Levetiracetam (Keppra -) 500 mg PO BID [facility] Last Admin: 05/18/17 22:36 Dose: 500 mg Lisinopril (Prinivil) 20 mg PO DAILY [facility] Last Admin: 05/18/17 10:38 Dose: 20 mg Montelukast Sodium (Singulair -) 10 mg PO HS [facility] Last Admin: 05/18/17 22:36 Dose: 10 mg Morphine Sulfate (Morphine Injection -) 2 mg IM Q4H PRN PRN Reason: PAIN LEVEL 6-10 Last Admin: 05/19/17 05:21 Dose: 2 mg Pramipexole Dihydrochloride (Mirapex -) 0.25 mg PO HS [facility] Last Admin: 05/18/17 22:36 Dose: 0.25 mg Ranitidine HCl (Zantac -) 150 mg PO BID [facility] Last Admin: 05/18/17 22:36 Dose: 150 mg Fluticasone/Salmeterol (Advair 100mcg/50mcg -) 1 puff IH BID [facility] Last Admin: 05/18/17 22:35 Dose: 1 puff Tiotropium [place] (Spiriva -) 18 puff IH DAILY [facility] Last Admin: 05/18/17 10:42 Dose: 1 puff Vancomycin HCl (Vancomycin Oral Solution) 250 mg PO Q6HPO [facility] Last Admin: 02/07/18 07:28 Dose: 250 mg REVIEW OF SYSTEMS CONSTITUTIONAL: Absent: fever, chills, diaphoresis, generalized weakness, malaise, loss of appetite, weight change HEENT: Absent: rhinorrhea, nasal congestion, throat pain, throat swelling, difficulty swallowing, mouth swelling, ear pain, eye pain, visual changes CARDIOVASCULAR: Absent: chest pain, syncope, palpitations, irregular heart rate, lightheadedness , peripheral edema RESPIRATORY: Absent: cough, shortness of breath, dyspnea with exertion, orthopnea, wheezing, stridor, hemoptysis GASTROINTESTINAL: Present: abdominal pain, diarrhea Absent: abdominal distension, nausea, vomiting, constipation, melena, hematochezia GENITOURINARY: Absent: dysuria, frequency, urgency, hesitancy, hematuria, flank pain, genital pain MUSCULOSKELETAL: Absent: myalgia, arthralgia, joint swelling, back pain, neck pain SKIN: Absent: rash, itching, pallor HEMATOLOGIC/IMMUNOLOGIC: Absent: easy bleeding, easy bruising, lymphadenopathy, frequent infections ENDOCRINE: Absent: unexplained weight gain, unexplained weight loss, heat intolerance, cold intolerance NEUROLOGIC: Absent: headache, focal weakness or paresthesias, dizziness, unsteady gait, seizure, mental status changes, bladder or bowel incontinence PSYCHIATRIC: Absent: anxiety, depression, suicidal or homicidal ideation, hallucinations. PHYSICAL EXAMINATION Vital Signs Temperature 98.1 F 05/19/17 05:01 Pulse Rate 70 05/19/17 05:01 Respiratory Rate 20 05/19/17 05:01 Blood Pressure 149/96 05/19/17 05:01 O2 Sat by Pulse Oximetry (%) 94 L 05/18/17 21:00 GENERAL: Awake, alert, and fully oriented, in no acute distress. HEAD: Normal with no signs of trauma. EYES: Pupils equal, round and reactive to light, extraocular movements intact, sclera anicteric, conjunctiva clear. No lid lag. EARS, NOSE, THROAT: Ears normal, nares patent, oropharynx clear without exudates. Moist mucous membranes. NECK: Normal range of motion, supple without lymphadenopathy, JVD, or masses. LUNGS: Breath sounds equal, clear to auscultation bilaterally. No crackles. No accessory muscle use. Mild diffuse wheezing HEART: Regular rate and rhythm, normal S1 and S2 without murmur, rub or gallop. ABDOMEN: Soft, diffusely tender, not distended, normoactive bowel sounds, no guarding, no rebound, no masses. No hepatomegaly or splenomegaly. MUSCULOSKELETAL: Normal range of motion at all joints. No bony deformities or tenderness. No CVA tenderness. UPPER EXTREMITIES: 2+ pulses, warm, well-perfused. No cyanosis. No clubbing. No peripheral edema. LOWER EXTREMITIES: 2+ pulses, warm, well-perfused. No calf tenderness. No peripheral edema. NEUROLOGICAL: Cranial nerves II-XII intact. Normal speech. Normal gait. PSYCHIATRIC: Cooperative. Good eye contact. Appropriate mood and affect. SKIN: Warm, dry, normal turgor, no rashes or lesions noted, normal capillary refill. CBCD WBC 7.6 K/mm3 (4.0-10.0) 05/17/17 06:50 RBC 4.65 M/mm3 (3.60-5.2) 05/17/17 06:50 Hgb 14.2 GM/dL (10.7-15.3) 05/17/17 06:50 Hct 42.7 % (32.4-45.2) 05/17/17 06:50 MCV 91.8 fl (80-96) 05/17/17 06:50 MCHC 33.2 g/dl (32.0-36.0) 05/17/17 06:50 RDW 13.0 % (11.6-15.6) 05/17/17 06:50 Plt Count 312 K/MM3 (134-434) 05/17/17 06:50 MPV 9.4 fl (7.5-11.1) D 05/17/17 06:50 CMP Sodium 140 mmol/L (136-145) 05/17/17 06:50 Potassium 4.2 mmol/L (3.5-5.1) 05/17/17 06:50 Chloride 104 mmol/L (98-107) 05/17/17 06:50 Carbon Dioxide 29 mmol/L (21-32) 05/17/17 06:50 Anion Gap 7 (8-16) L 05/17/17 06:50 BUN 3 mg/dL (7-18) L 05/17/17 06:50 Creatinine 0.4 mg/dL (0.55-1.02) L 05/17/17 06:50 Creat Clearance w eGFR > 60 (>60) 05/12/17 19:48 Calcium 8.1 mg/dL (8.5-10.1) L 05/17/17 06:50 Total Bilirubin 0.8 mg/dL (0.2-1.0) 05/12/17 19:48 AST 19 U/L (15-37) 05/12/17 19:48 ALT 36 U/L (12-78) 05/12/17 19:48 Alkaline Phosphatase 101 U/L (45-117) 05/12/17 19:48 Total Protein 7.1 g/dl (6.4-8.2) 05/12/17 19:48 Albumin 3.1 g/dl (3.4-5.0) L 05/12/17 19:[address] abd/pelvis with contrast IMPRESSION: Mild sigmoid colitis could be due to infection, inflammatory bowel disease or ischemia without definite diverticulosis to suggest diverticulitis. ASSESSMENT/PLAN: 56 year old female with multiple medical problems who presented to the ED with persistent abdominal pain with diarrhea. She was seen in the ED on 04/22/17 for same and DC home on PO flagyl 500mg BID and levaquin 500mg daily. She was seen by Dr. Sandhu in his office on 05/03/17 and sent to the ED by Dr. Pineda for admission. Patient was c/o of pain below T4 level down her legs. She reports prior spinal surgery in 2013 from outside provider. She reports has been having ongoing pain. Is on Gabapentin 300mg three times a day and Cymbalta which we discussed. Will order CT L spine for her to evaluate for acute changes. May benefit from therapy and possibly rehab if difficulty with ambulation. Patient also with seizure history, can continue home dose of Keppra. On pain medication , caution with opioids. Monitor bp, maintain normotensive range.
--- NOTE | 2017-05-19 10:37 | PN ---
Progress Note, Physician Chief Complaint: abdominal pain History of Present Illness: NAD, complaining of abdominal pain LUQ,LLQ complains of mucousy diarrhea x 1 ovenight on morphine for pain control. started on gabapentin seen by Neurology and endocrinology - Current Medication List Current Medications: Active Medications Albuterol Sulfate (Ventolin 0.083% Nebulizer Soln -) 1 amp NEB Q4H PRN PRN Reason: SHORT OF BREATH/WHEEZING Albuterol/Ipratropium (Duoneb -) 1 amp NEB RQID [facility] Last Admin: 05/19/17 07:50 Dose: 1 amp Alprazolam (Xanax -) 1 mg PO TID [facility] Last Admin: 05/19/17 07:28 Dose: 1 mg Ascorbic Acid (Vitamin C -) 500 mg PO BID [facility] Last Admin: 05/18/17 22:36 Dose: 500 mg Aspirin (Ecotrin -) 81 mg PO DAILY [facility] Last Admin: 05/18/17 10:39 Dose: 81 mg Bisacodyl (Dulcolax -) 5 mg PO DAILY PRN PRN Reason: CONSTIPATION Last Admin: 05/16/17 11:05 Dose: 5 mg Diltiazem HCl (Cardizem Cd -) 120 mg PO DAILY [facility] Last Admin: 05/18/17 10:39 Dose: 120 mg Duloxetine HCl (Cymbalta -) 60 mg PO DAILY [facility] Last Admin: 05/18/17 10:38 Dose: 60 mg Gabapentin (Neurontin -) 300 mg PO TID [facility] Last Admin: 05/19/17 07:27 Dose: 300 mg Heparin Sodium (Porcine) (Heparin -) 5,000 unit SQ BID [facility] Last Admin: 05/18/17 22:35 Dose: 5,000 unit Insulin Aspart (Novolog Vial Sliding Scale -) 1 vial SQ ACHS [facility] PRN Reason: Protocol Last Admin: 05/19/17 07:28 Dose: Not Given Insulin Detemir (Levemir Vial) 17 units SQ BID@0700,2200 [facility] Last Admin: 05/19/17 07:28 Dose: 17 units Levetiracetam (Keppra -) 500 mg PO BID [facility] Last Admin: 05/18/17 22:36 Dose: 500 mg Lisinopril (Prinivil) 20 mg PO DAILY [facility] Last Admin: 05/18/17 10:38 Dose: 20 mg Montelukast Sodium (Singulair -) 10 mg PO [facility] Last Admin: 05/18/17 22:36 Dose: 10 mg Morphine Sulfate (Morphine Injection -) 2 mg IM Q4H PRN PRN Reason: PAIN LEVEL 6-10 Last Admin: 05/19/17 05:21 Dose: 2 mg Pramipexole Dihydrochloride (Mirapex -) 0.25 mg PO [facility] Last Admin: 05/18/17 22:36 Dose: 0.25 mg Ranitidine HCl (Zantac -) 150 mg PO BID [facility] Last Admin: 05/18/17 22:36 Dose: 150 mg Fluticasone/Salmeterol (Advair 100mcg/50mcg -) 1 puff IH BID [facility] Last Admin: 05/18/17 22:35 Dose: 1 puff Tiotropium [place] (Spiriva -) 18 puff IH DAILY [facility] Last Admin: 05/18/17 10:42 Dose: 1 puff Vancomycin HCl (Vancomycin Oral Solution) 250 mg PO Q6HPO [facility] Last Admin: 05/19/17 07:28 Dose: 250 mg - Objective Vital Signs: Vital Signs Temperature 98.1 F 05/19/17 05:01 Pulse Rate 70 05/19/17 05:01 Respiratory Rate 20 05/19/17 05:01 Blood Pressure 149/96 05/19/17 05:01 O2 Sat by Pulse Oximetry (%) 94 L 05/18/17 21:00 Constitutional: Yes: Well Nourished, No Distress, Calm Cardiovascular: Yes: Regular Rate and Rhythm Respiratory: Yes: Regular Gastrointestinal: Yes: Normal Bowel Sounds, Soft, Tenderness (LUQ,LLQ) Musculoskeletal: Yes: WNL Extremities: Yes: WNL Labs: CBC, BMP 05/17/17 06:50 05/17/17 06:50 Problem List - Problems (1) Abdominal pain Assessment/Plan: -ID and GI consult -IV abx -pain management -tolerated clear liquids---> advance diet -Neurology consult appreciated -gabapentin ordered Code(s): R10.9 - UNSPECIFIED ABDOMINAL PAIN Qualifiers: Abdominal location: generalized Qualified Code(s): R10.84 - Generalized abdominal pain (2) C. difficile colitis Assessment/Plan: -ID consult -PO Vanco advance diet tolerated somewhat, asked Nurses to keep track of PO intake, N/V Code(s): A04.72 - ENTEROCOLITIS D/T CLOSTRIDIUM DIFFICILE, NOT SPCF RECUR (3) Diarrhea Assessment/Plan: on/off mucousy diarrhea Code(s): R19.7 - DIARRHEA, UNSPECIFIED Qualifiers: Diarrhea type: infectious Qualified Code(s): A09 - Infectious gastroenteritis and colitis, unspecified (4) Lower extremity pain, left Assessment/Plan: -MRI lumbar spine -neurology consult appreciated -gabapentin 300 mg po TID Code(s): M79.605 - PAIN IN LEFT LEG (5) Diabetes mellitus Assessment/Plan: Uncontrolled at A1C of 11.2 -endocrinology consult appreciated Code(s): E11.9 - TYPE 2 DIABETES MELLITUS WITHOUT COMPLICATIONS Qualifiers: Diabetes mellitus type: type 2 Diabetes mellitus complication status: with hyperglycemia Diabetes mellitus mcc insulin use: with terminal system operator use Qualified Code(s): E11.65 - Type 2 diabetes mellitus with hyperglycemia; Z79.4 - terminal operator (current) use of insulin; Z79.4 - terminal operator (current) use of insulin ; Z79.4 - FDC (current) use of insulin; Z79.4 - terminal operator (current) use of insulin Assessment/Plan see problem list
--- NOTE | 2017-05-19 10:59 | EKG ---
Test Reason : Blood Pressure : / mmHG Vent. Rate : 081 BPM Atrial Rate : 081 BPM P-R Int : 194 ms QRS Dur : 082 ms QT Int : 390 ms P-R-T Axes : 067 050 045 degrees QTc Int : 453 ms NORMAL SINUS RHYTHM POSSIBLE LEFT ATRIAL ENLARGEMENT BORDERLINE ECG WHEN COMPARED WITH ECG OF 22-APR-2017 23:50, NO SIGNIFICANT CHANGE WAS FOUND Confirmed by SCAR LIU MD ([id number]) on 05/19/2017 10:59:07 AM Referred By: Confirmed By:SCAR LIU MD
[2017-05-19] MEDS ORDERED: PT OWN MED DRAWER 7, Y5N ONE ×2 (11:39→21:42)
[2017-05-19] MEDS: ASCORBIC ACID 500 MG TABLET (FP) PO SCH ×2 (11:45→22:20)
[2017-05-19] MEDS: DULoxetine HCL 30 MG CAPSULE.DR (FP) PO SCH (11:46)
[2017-05-19] MEDS: ASPIRIN COATED 81 MG TABLET.EC PO SCH (11:46)
[2017-05-19] MEDS: HEPARIN NA (PORCINE) 5,000 UNITS/ML 1ML VIAL SQ SCH ×2 (11:46→22:19)
[2017-05-19] MEDS: LISINOPRIL 20 MG TABLET (FP) PO SCH (11:46)
[2017-05-19] MEDS: RANITIDINE HCL 150 MG TABLET (FP) PO SCH ×2 (11:47→22:22)
[2017-05-19] MEDS: levETIRAcetam 500 MG TABLET (FP) PO SCH ×2 (11:48→22:19)
[2017-05-19] MEDS: FLUTICASONE/SALMETEROL 100 MCG/50 MCG DISKUS IH SCH ×2 (12:50→22:19)
[2017-05-19] MEDS: TIOTROPIUM BROMIDE 18 MCG/INH (DEVICE W/ 5 CAPSULES) IH SCH (12:50)
--- NOTE | 2017-05-19 14:51 | PN ---
Progress Note, Physician History of Present Illness: patient with continuing back pain also abd pain - Current Medication List Current Medications: Active Medications Albuterol Sulfate (Ventolin 0.083% Nebulizer Soln -) 1 amp NEB Q4H PRN PRN Reason: SHORT OF BREATH/WHEEZING Albuterol/Ipratropium (Duoneb -) 1 amp NEB RQID [facility] Last Admin: 05/19/17 07:50 Dose: 1 amp Alprazolam (Xanax -) 1 mg PO TID [facility] Last Admin: 05/19/17 07:28 Dose: 1 mg Ascorbic Acid (Vitamin C -) 500 mg PO BID [facility] Last Admin: 05/19/17 11:45 Dose: 500 mg Aspirin (Ecotrin -) 81 mg PO DAILY [facility] Last Admin: 05/19/17 11:46 Dose: 81 mg Bisacodyl (Dulcolax -) 5 mg PO DAILY PRN PRN Reason: CONSTIPATION Last Admin: 05/16/17 11:05 Dose: 5 mg Diltiazem HCl (Cardizem Cd -) 120 mg PO DAILY [facility] Last Admin: 05/19/17 11:46 Dose: 120 mg Duloxetine HCl (Cymbalta -) 60 mg PO DAILY [facility] Last Admin: 05/19/17 11:46 Dose: 60 mg Gabapentin (Neurontin -) 300 mg PO TID [facility] Last Admin: 05/19/17 07:27 Dose: 300 mg Heparin Sodium (Porcine) (Heparin -) 5,000 unit SQ BID [facility] Last Admin: 05/19/17 11:46 Dose: 5,000 unit Insulin Aspart (Novolog Vial Sliding Scale -) 1 vial SQ [facility] PRN Reason: Protocol Last Admin: 05/19/17 12:51 Dose: Not Given Insulin Detemir (Levemir Vial) 17 units SQ BID@0700,2200 [facility] Last Admin: 05/19/17 07:28 Dose: 17 units Levetiracetam (Keppra -) 500 mg PO BID [facility] Last Admin: 05/19/17 11:48 Dose: 500 mg Lisinopril (Prinivil) 20 mg PO DAILY [facility] Last Admin: 05/19/17 11:46 Dose: 20 mg Montelukast Sodium (Singulair -) 10 mg PO HS [facility] Last Admin: 05/18/17 22:36 Dose: 10 mg Morphine Sulfate (Morphine Injection -) 2 mg IM Q4H PRN PRN Reason: PAIN LEVEL 6-10 Last Admin: 05/19/17 05:21 Dose: 2 mg Pramipexole Dihydrochloride (Mirapex -) 0.25 mg PO HS [facility] Last Admin: 05/18/17 22:36 Dose: 0.25 mg Ranitidine HCl (Zantac -) 150 mg PO BID [facility] Last Admin: 05/19/17 11:47 Dose: 150 mg Fluticasone/Salmeterol (Advair 100mcg/50mcg -) 1 puff IH BID [facility] Last Admin: 05/19/17 12:50 Dose: Not Given Tiotropium [place] (Spiriva -) 18 puff IH DAILY [facility] Last Admin: 05/19/17 12:50 Dose: Not Given Vancomycin HCl (Vancomycin Oral Solution) 250 mg PO Q6HPO [facility] Last Admin: 05/19/17 13:19 Dose: Not Given - Objective Vital Signs: Vital Signs Temperature 98 F 05/19/17 11:55 Pulse Rate 69 05/19/17 11:55 Respiratory Rate 18 05/19/17 11:55 Blood Pressure 101/41 05/19/17 11:55 O2 Sat by Pulse Oximetry (%) 94 L 05/18/17 21:00 Constitutional: Yes: No Distress, Calm Cardiovascular: Yes: Regular Rate and Rhythm Respiratory: Yes: Regular, CTA Bilaterally Gastrointestinal: Yes: Normal Bowel Sounds, Tenderness (left lower quadrant) Musculoskeletal: Yes: Back Pain Extremities: Yes: WNL Labs: CBC, BMP 05/17/17 06:50 05/17/17 06:50 - ....Imaging MRI: Image Reviewed Assessment/Plan Problem List - Problems (1) C. difficile colitis Thank you for the opportunity to participate in the care of this patient. Code(s): A04.72 - ENTEROCOLITIS D/T CLOSTRIDIUM DIFFICILE, NOT SPCF RECUR (2) Abdominal pain Code(s): R10.9 - UNSPECIFIED ABDOMINAL PAIN Qualifiers: Abdominal location: generalized Qualified Code(s): R10.84 - Generalized abdominal pain (3) Diarrhea Code(s): R19.7 - DIARRHEA, UNSPECIFIED Qualifiers: Diarrhea type: infectious Qualified Code(s): A09 - Infectious gastroenteritis and colitis, unspecified (4) Hypertension associated with diabetes Code(s): E11.59 - TYPE 2 DIABETES MELLITUS WITH OTH CIRCULATORY COMPLICATIONS; I10 - ESSENTIAL (PRIMARY) HYPERTENSION (5) Asthma Code(s): J45.909 - UNSPECIFIED ASTHMA, UNCOMPLICATED Qualifiers: Asthma severity: unspecified severity Asthma persistence: intermittent Asthma complication type: uncomplicated Qualified Code(s): J45.20 - Mild intermittent asthma, uncomplicated (6) Bipolar II disorder Code(s): F31.81 - BIPOLAR II DISORDER (7) Diabetes mellitus Code(s): E11.9 - TYPE 2 DIABETES MELLITUS WITHOUT COMPLICATIONS Qualifiers: Diabetes mellitus type: type 2 Diabetes mellitus complication status: with hyperglycemia Diabetes mellitus senior living insulin use: with senior living use Qualified Code(s): E11.65 - Type 2 diabetes mellitus with hyperglycemia; Z79.4 - half-way (current) use of insulin; Z79.4 - half-way (current) use of insulin ; Z79.4 - intermediate manager (current) use of insulin; Z79.4 - half-way (current) use of insulin (8) Hepatitis C Code(s): B19.20 - UNSPECIFIED VIRAL HEPATITIS C WITHOUT HEPATIC COMA Qualifiers: Viral hepatitis chronicity: unspecified Hepatic coma status: without hepatic coma Qualified Code(s): B19.20 - Unspecified viral hepatitis C without hepatic coma (9) Hypothyroidism Code(s): E03.9 - HYPOTHYROIDISM, UNSPECIFIED Qualifiers: Hypothyroidism type: acquired Qualified Code(s): E03.9 - Hypothyroidism, unspecified (10) Seizure disorder Code(s): G40.909 - EPILEPSY, UNSP, NOT INTRACTABLE, WITHOUT STATUS EPILEPTICUS plan patient to complete course of vanco--14 days rest continue as per primary team mri done await for reports neuro on case
--- NOTE | 2017-05-19 15:53 | PN ---
Progress Note (short form) - Note Progress Note: Pt with C. diff colitis, seen and examined sitting in chair. No fevers, some nausea, no vomiting. Tolerating clear liquids. On PO vanco. Lost IV access yesterday, flagyl d/c'd. Pt comments that she feels weak overall. Vital Signs Period Temp Pulse Resp BP Sys/Sultana Pulse Ox Last 24 Hr 98 F-98.9 F 69-70 18-20 101-156/41-96 94 PE: A&O no rash or jaundice abdomen soft, obese, mild tenderness LLQ, much less elsewhere extremities warm, no cyanosis no new labs A/P: C. diff colitis no fevers, tolerating clears, still with some diarrhea pain, tenderness improving slowly but steadily could probably advance to full liquids on antibiotics per ID - plan is for 14 days of oral vanco (started 2/1 evening) pain meds prn - try to minimize narcotics no surgical indications at this time Problem List - Problems (1) C. difficile colitis Code(s): A04.72 - ENTEROCOLITIS D/T CLOSTRIDIUM DIFFICILE, NOT SPCF RECUR (2) Abdominal pain Code(s): R10.9 - UNSPECIFIED ABDOMINAL PAIN Qualifiers: Abdominal location: generalized Qualified Code(s): R10.84 - Generalized abdominal pain (3) Diarrhea Code(s): R19.7 - DIARRHEA, UNSPECIFIED Qualifiers: Diarrhea type: infectious Qualified Code(s): A09 - Infectious gastroenteritis and colitis, unspecified (4) Hypertension associated with diabetes Code(s): E11.59 - TYPE 2 DIABETES MELLITUS WITH OTH CIRCULATORY COMPLICATIONS; I10 - ESSENTIAL (PRIMARY) HYPERTENSION (5) Asthma Code(s): J45.909 - UNSPECIFIED ASTHMA, UNCOMPLICATED Qualifiers: Asthma severity: unspecified severity Asthma persistence: intermittent Asthma complication type: uncomplicated Qualified Code(s): J45.20 - Mild intermittent asthma, uncomplicated (6) Bipolar II disorder Code(s): F31.81 - BIPOLAR II DISORDER (7) Diabetes mellitus Code(s): E11.9 - TYPE 2 DIABETES MELLITUS WITHOUT COMPLICATIONS Qualifiers: Diabetes mellitus type: type 2 Diabetes mellitus complication status: with hyperglycemia Diabetes mellitus senior care insulin use: with loan examiner use Qualified Code(s): E11.65 - Type 2 diabetes mellitus with hyperglycemia; Z79.4 - bench patternmaker metal (current) use of insulin; Z79.4 - bench patternmaker metal (current) use of insulin ; Z79.4 - residential (current) use of insulin; Z79.4 - bench patternmaker metal (current) use of insulin (8) Hepatitis C Code(s): B19.20 - UNSPECIFIED VIRAL HEPATITIS C WITHOUT HEPATIC COMA Qualifiers: Viral hepatitis chronicity: unspecified Hepatic coma status: without hepatic coma Qualified Code(s): B19.20 - Unspecified viral hepatitis C without hepatic coma (9) Hypothyroidism Code(s): E03.9 - HYPOTHYROIDISM, UNSPECIFIED Qualifiers: Hypothyroidism type: acquired Qualified Code(s): E03.9 - Hypothyroidism, unspecified (10) Seizure disorder Code(s): G40.909 - EPILEPSY, UNSP, NOT INTRACTABLE, WITHOUT STATUS EPILEPTICUS
[2017-05-19] MEDS: MONTELUKAST NA 10 MG TABLET PO SCH (22:20)
[2017-05-19] MEDS: PRAMIPEXOLE DIHYDROCHLORIDE 0.25 MG TABLET PO SCH (22:20)
[2017-05-20] MEDS: VANCOMYCIN 250 MG/5 ML ORAL SOLUTION PO SCH ×2 (01:50→06:26)
[2017-05-20 05:59] VITALS: BP 155/100; PULSE 78; TEMP 98.4
[2017-05-20] MEDS: INSULIN SLIDING SCALE (NOVOLOG) 1 VIAL SQ SCH (06:25)
[2017-05-20] MEDS: INSULIN DETEMIR 100 UNITS/ML MDV SQ SCH (06:26)
[2017-05-20] MEDS: ALPRAZolam 2 MG TABLET PO SCH (06:26)
[2017-05-20] MEDS: MORPHINE SULFATE 10 MG/1 ML *VIAL IM PRN (06:27)
[2017-05-20] MEDS: ALBUTEROL SO4 2.5/IPRATROPIUM 0.5 INH SOL 3 ML VIAL.NEB. NEB SCH ×2 (08:20→11:37)
--- NOTE | 2017-05-20 10:14 | PN ---
Progress Note (short form) - Note Progress Note: Neurology This is a 56 year old female with multiple medical problems who presented to the ED with persistent abdominal pain with diarrhea. She was seen in the ED on for same and DC home on PO flagyl 500mg BID and levaquin 500mg daily. She was seen by Dr. Sandhu in his office on 05/03/17 and sent to the ED by Dr. Pineda for admission. Patient was c/o of pain below T4 level down her legs. She reports prior spinal surgery in 2013 from outside provider. She reports has been having ongoing pain. Is on Gabapentin 300mg three times a day and Cymbalta which we discussed. MRI L spine reviewed and mild changes noted from L2 to L4 and although L4/L5 shows moderate herniation this is noted to be better than prior imaging from 2013. Communicated this improvement to patient. Does have impingement of L5 root which can cause radiculopathy and this time would conitnue current medication. Epidural injections can be considered outpatient. Active Medications Albuterol Sulfate (Ventolin 0.083% Nebulizer Soln -) 1 amp NEB Q4H PRN PRN Reason: SHORT OF BREATH/WHEEZING Albuterol/Ipratropium (Duoneb -) 1 amp NEB RQID [facility] Last Admin: 05/20/17 08:20 Dose: 1 amp Alprazolam (Xanax -) 1 mg PO TID [facility] Last Admin: 05/20/17 06:26 Dose: 1 mg Ascorbic Acid (Vitamin C -) 500 mg PO BID [facility] Last Admin: 05/19/17 22:20 Dose: 500 mg Aspirin (Ecotrin -) 81 mg PO DAILY [facility] Last Admin: 05/19/17 11:46 Dose: 81 mg Bisacodyl (Dulcolax -) 5 mg PO DAILY PRN PRN Reason: CONSTIPATION Last Admin: 05/16/17 11:05 Dose: 5 mg Diltiazem HCl (Cardizem Cd -) 120 mg PO DAILY [facility] Last Admin: 05/19/17 11:46 Dose: 120 mg Duloxetine HCl (Cymbalta -) 60 mg PO DAILY [facility] Last Admin: 05/19/17 11:46 Dose: 60 mg Gabapentin (Neurontin -) 300 mg PO QID [facility] Last Admin: 05/19/17 22:20 Dose: 300 mg Heparin Sodium (Porcine) (Heparin -) 5,000 unit SQ BID [facility] Last Admin: 05/19/17 22:19 Dose: 5,000 unit Insulin Aspart (Novolog Vial Sliding Scale -) 1 vial SQ ACHS [facility] PRN Reason: Protocol Last Admin: 05/20/17 06:25 Dose: Not Given Insulin Detemir (Levemir Vial) 17 units SQ BID@0700,2200 [facility] Last Admin: 05/20/17 06:26 Dose: 17 units Levetiracetam (Keppra -) 500 mg PO BID [facility] Last Admin: 05/19/17 22:19 Dose: 500 mg Lisinopril (Prinivil) 20 mg PO DAILY [facility] Last Admin: 05/19/17 11:46 Dose: 20 mg Montelukast Sodium (Singulair -) 10 mg PO [facility] Last Admin: 05/19/17 22:20 Dose: 10 mg Morphine Sulfate (Morphine Injection -) 2 mg IM Q4H PRN PRN Reason: PAIN LEVEL 6-10 Last Admin: 05/20/17 06:27 Dose: 2 mg Pramipexole Dihydrochloride (Mirapex -) 0.25 mg PO [facility] Last Admin: 05/19/17 22:20 Dose: 0.25 mg Ranitidine HCl (Zantac -) 150 mg PO BID [facility] Last Admin: 05/19/17 22:22 Dose: 150 mg Fluticasone/Salmeterol (Advair 100mcg/50mcg -) 1 puff IH BID [facility] Last Admin: 05/19/17 22:19 Dose: 1 puff Tiotropium [place] (Spiriva -) 18 puff IH DAILY [facility] Last Admin: 05/19/17 12:50 Dose: Not Given Vancomycin HCl (Vancomycin Oral Solution) 250 mg PO Q6HPO [facility] Last Admin: 05/20/17 06:26 Dose: 250 mg PHYSICAL EXAMINATION Vital Signs Temperature 98.4 F 05/20/17 05:58 Pulse Rate 78 05/20/17 05:58 Respiratory Rate 18 05/20/17 05:58 Blood Pressure 155/100 05/20/17 05:58 O2 Sat by Pulse Oximetry (%) 94 L 05/19/17 21:00 GENERAL: Awake, alert, and fully oriented, in no acute distress. HEAD: Normal with no signs of trauma. EYES: Pupils equal, round and reactive to light, extraocular movements intact, sclera anicteric, conjunctiva clear. No lid lag. EARS, NOSE, THROAT: Ears normal, nares patent, oropharynx clear without exudates. Moist mucous membranes. NECK: Normal range of motion, supple without lymphadenopathy, JVD, or masses. LUNGS: Breath sounds equal, clear to auscultation bilaterally. No crackles. No accessory muscle use. Mild diffuse wheezing HEART: Regular rate and rhythm, normal S1 and S2 without murmur, rub or gallop. ABDOMEN: Soft, diffusely tender, not distended, normoactive bowel sounds, no guarding, no rebound, no masses. No hepatomegaly or splenomegaly. MUSCULOSKELETAL: Normal range of motion at all joints. No bony deformities or tenderness. No CVA tenderness. UPPER EXTREMITIES: 2+ pulses, warm, well-perfused. No cyanosis. No clubbing. No peripheral edema. LOWER EXTREMITIES: 2+ pulses, warm, well-perfused. No calf tenderness. No peripheral edema. NEUROLOGICAL: Cranial nerves II-XII intact. Normal speech. Normal gait. PSYCHIATRIC: Cooperative. Good eye contact. Appropriate mood and affect. SKIN: Warm, dry, normal turgor, no rashes or lesions noted, normal capillary refill. CBCD WBC 7.6 K/mm3 (4.0-10.0) 05/17/17 06:50 RBC 4.65 M/mm3 (3.60-5.2) 05/17/17 06:50 Hgb 14.2 GM/dL (10.7-15.3) 05/17/17 06:50 Hct 42.7 % (32.4-45.2) 05/17/17 06:50 MCV 91.8 fl (80-96) 05/17/17 06:50 MCHC 33.2 g/dl (32.0-36.0) 05/17/17 06:50 RDW 13.0 % (11.6-15.6) 05/17/17 06:50 Plt Count 312 K/MM3 (134-434) 05/17/17 06:50 MPV 9.4 fl (7.5-11.1) D 05/17/17 06:50 CMP Sodium 140 mmol/L (136-145) 05/17/17 06:50 Potassium 4.2 mmol/L (3.5-5.1) 05/17/17 06:50 Chloride 104 mmol/L (98-107) 05/17/17 06:50 Carbon Dioxide 29 mmol/L (21-32) 05/17/17 06:50 Anion Gap 7 (8-16) L 05/17/17 06:50 BUN 3 mg/dL (7-18) L 05/17/17 06:50 Creatinine 0.4 mg/dL (0.55-1.02) L 05/17/17 06:50 Creat Clearance w eGFR > 60 (>60) 05/12/17 19:48 Calcium 8.1 mg/dL (8.5-10.1) L 05/17/17 06:50 Total Bilirubin 0.8 mg/dL (0.2-1.0) 05/12/17 19:48 AST 19 U/L (15-37) 05/12/17 19:48 ALT 36 U/L (12-78) 05/12/17 19:48 Alkaline Phosphatase 101 U/L (45-117) 05/12/17 19:48 Total Protein 7.1 g/dl (6.4-8.2) 05/12/17 19:48 Albumin 3.1 g/dl (3.4-5.0) L 05/12/17 19:[address] abd/pelvis with contrast IMPRESSION: Mild sigmoid colitis could be due to infection, inflammatory bowel disease or ischemia without definite diverticulosis to suggest diverticulitis. MRI L spine reviewed ASSESSMENT/PLAN: 56 year old female with multiple medical problems who presented to the ED with persistent abdominal pain with diarrhea. She was seen in the ED on 04/22/17 for same and DC home on PO flagyl 500mg BID and levaquin 500mg daily. She was seen by Dr. Sandhu in his office on 05/03/17 and sent to the ED by Dr. Pineda for admission. Patient was c/o of pain below T4 level down her legs. She reports prior spinal surgery in 2013 from outside provider. She reports has been having ongoing pain. Is on Gabapentin 300mg three times a day and Cymbalta which we discussed. MRI L spine reviewed as above. Can consider epidural injections as outpatient. If rehab not an option, outpaitent physical therapy should be considered. Patient also with seizure history, can continue home dose of Keppra. On pain medication, caution with opioids. Monitor bp, maintain normotensive range.
[2017-05-20] MEDS: DULoxetine HCL 30 MG CAPSULE.DR (FP) PO SCH (10:18)
[2017-05-20] MEDS: HEPARIN NA (PORCINE) 5,000 UNITS/ML 1ML VIAL SQ SCH (10:18)
[2017-05-20] MEDS: GABAPENTIN 300 MG CAPSULE (FP) PO SCH (10:18)
[2017-05-20] MEDS: ASPIRIN COATED 81 MG TABLET.EC PO SCH (10:18)
[2017-05-20] MEDS: ASCORBIC ACID 500 MG TABLET (FP) PO SCH (10:18)
[2017-05-20] MEDS: levETIRAcetam 500 MG TABLET (FP) PO SCH (10:18)
[2017-05-20] MEDS: LISINOPRIL 20 MG TABLET (FP) PO SCH (10:18)
[2017-05-20] MEDS: RANITIDINE HCL 150 MG TABLET (FP) PO SCH (10:19)
[2017-05-20] MEDS: TIOTROPIUM BROMIDE 18 MCG/INH (DEVICE W/ 5 CAPSULES) IH SCH (10:20)
[2017-05-20] MEDS: FLUTICASONE/SALMETEROL 100 MCG/50 MCG DISKUS IH SCH (10:20)
--- NOTE | 2017-05-20 10:52 | DS ---
Physical Examination Vital Signs: Vital Signs Temperature 98.4 F 05/20/17 05:58 Pulse Rate 78 05/20/17 05:58 Respiratory Rate 18 05/20/17 05:58 Blood Pressure 155/100 05/20/17 05:58 O2 Sat by Pulse Oximetry (%) 94 L 05/19/17 21:00 Constitutional: Yes: Well Nourished, No Distress, Calm Cardiovascular: Yes: Regular Rate and Rhythm Respiratory: Yes: Regular Gastrointestinal: Yes: Normal Bowel Sounds, Soft, Tenderness (LUQ,LLQ much improved) Musculoskeletal: Yes: WNL Extremities: Yes: WNL Edema: No Peripheral Pulses WNL: Yes Neurological: Yes: Alert, Oriented Psychiatric: Yes: Alert, Oriented Labs: CBC, BMP 05/17/17 06:50 05/17/17 06:50 Discharge Summary Reason For Visit: COLITIS ABDOMINAL PAIN (MRSA) Current Active Problems Abdominal pain (Acute) C. difficile colitis (Acute) Colitis (Acute) Lower extremity pain, left (Acute) Hospital Course: This is a 56 year old female with multiple medical problems who presented to the ED with persistent abdominal pain with diarrhea. She was seen in the ED on for same and DC home on PO flagyl 500mg BID and levaquin 500mg daily. She was seen by Dr. Sandhu in his office on 05/03/17 and sent to the ED by Dr. Chakraobrty for admission today. Pt reports her stool as mucousy and watery with a foul odor. Her abdominal pain is crampy and "all over" Condition: Stable - Instructions Diet, Activity, Other Instructions: -FOLLOW UP WITH DR CHAKRABORTY AND DR SCOTT OUTPATIENT. -LEVAQUIN 500 MG DAILY FOR 5 DAYS -FLAGYL 500 MG 3 X DAY FOR 5 DAYS Referrals: Ponce Scott MD [Staff Physician] - Rc Chakraborty MD [Primary Care Provider] - Disposition: HOME - Home Medications Comprehensive Discharge Medication List: Ambulatory Orders Albuterol Sulfate Inhaler - [Ventolin HFA Inhaler -] 2 inh PO Q4H PRN 11/06/14 Duloxetine HCl 60 mg PO DAILY 12/21/14 Famotidine [Pepcid -] 40 mg PO DAILY 12/21/14 Tiotropium [place] [Spiriva] 18 mcg IH DAILY 12/21/14 Alprazolam [Xanax] 1 mg PO TID 07/13/16 Tramadol HCl 100 mg PO TID 07/13/16 Aspirin Coated [Ecotrin -] 81 mg PO DAILY #30 tab 07/22/16 Diltiazem Cd [Cardizem Cd -] 120 mg PO DAILY #30 cap 07/22/16 Levetiracetam [Keppra -] 500 mg PO BID tablet 07/22/16 Lisinopril [Prinivil] 20 mg PO DAILY #30 tablet 07/22/16 Montelukast Na [Singulair -] 10 mg PO HS #30 tablet 07/22/16 Ascorbic Acid [Vitamin C -] 500 mg PO BID #60 tablet 02/15/17 Docusate Sodium [Colace -] 300 mg PO HS #30 cap 02/15/17 Doxycycline Hyclate [Vibramycin -] 100 mg PO BID@1000,1800 #14 cap 02/15/17 Insulin (Levemir) [Levemir Flexpen -] 20 units SQ BID #4 pen 02/15/17 Insulin (Novolog) [Novolog Flexpen -] 5 units SQ ACHS #4 pen 02/15/17 Montelukast Na [Singulair -] 10 mg PO HS #30 tablet 02/15/17 Pramipexole Dihydrochloride [Mirapex -] 0.25 mg PO HS #30 tablet 02/15/17 Ranitidine [Zantac -] 150 mg PO BID #60 tablet 02/15/17 Salmeterol/Fluticasone [Advair 100Mcg/50Mcg -] 1 puff IH BID #1 inhaler Sennosides [Senna -] 2 tab PO HS #60 tablet 02/15/17 Zolpidem Tartrate [Ambien] 10 mg PO HS tablet MDD 1 02/15/17 metFORMIN HCL [Glucophage -] 500 mg PO BID@0700,1630 #60 tablet 02/15/17 Ibuprofen 800 mg PO TID #30 tablet 04/23/17 Gabapentin [Neurontin -] 300 mg PO QID #120 capsule 05/20/17 Insulin Aspart Prot/Insuln Asp [Novolog Mix 70-30 Flexpen Syrn] 35 unit SQ BID # 1 box 05/20/17 Levofloxacin [Levaquin -] 500 mg PO DAILY #4 tablet 05/20/17 metroNIDAZOLE [Flagyl -] 500 mg PO TID #15 tablet 05/20/17 oxyCODONE HCL [Roxicodone -] 5 mg PO QID PRN #20 tablet MDD 4 05/20/17
--- NOTE | 2017-05-20 11:43 | PN ---
Progress Note (short form) - Note Progress Note: Pt with C. diff colitis, seen and examined sitting in chair. No fevers, some nausea, no vomiting. Tolerating diet. On PO vanco. For discharge today per primary team. Pt notes that she voids shortly after every time she drinks fluids. Vital Signs Period Temp Pulse Resp BP Sys/Sultana Pulse Ox Last 24 Hr 98 F-98.5 F 69-78 18-20 101-157/41-100 94-98 PE: A&O no rash or jaundice abdomen soft, obese, mild tenderness LLQ, no significant elsewhere extremities warm, no cyanosis no new labs A/P: C. diff colitis no fevers, tolerating diet, still with some diarrhea pain, tenderness improving slowly but steadily on antibiotics per ID - plan is to complete oral vanco (started 2/ evening) pain meds prn - try to minimize narcotics for d/c home and f/u with PMD, GI no surgical indications at this time - no need for surgical followup Problem List - Problems (1) C. difficile colitis Code(s): A04.72 - ENTEROCOLITIS D/T CLOSTRIDIUM DIFFICILE, NOT SPCF RECUR (2) Abdominal pain Code(s): R10.9 - UNSPECIFIED ABDOMINAL PAIN Qualifiers: Abdominal location: generalized Qualified Code(s): R10.84 - Generalized abdominal pain (3) Diarrhea Code(s): R19.7 - DIARRHEA, UNSPECIFIED Qualifiers: Diarrhea type: infectious Qualified Code(s): A09 - Infectious gastroenteritis and colitis, unspecified (4) Hypertension associated with diabetes Code(s): E11.59 - TYPE 2 DIABETES MELLITUS WITH OTH CIRCULATORY COMPLICATIONS; I10 - ESSENTIAL (PRIMARY) HYPERTENSION (5) Asthma Code(s): J45.909 - UNSPECIFIED ASTHMA, UNCOMPLICATED Qualifiers: Asthma severity: unspecified severity Asthma persistence: intermittent Asthma complication type: uncomplicated Qualified Code(s): J45.20 - Mild intermittent asthma, uncomplicated (6) Bipolar II disorder Code(s): F31.81 - BIPOLAR II DISORDER (7) Diabetes mellitus Code(s): E11.9 - TYPE 2 DIABETES MELLITUS WITHOUT COMPLICATIONS Qualifiers: Diabetes mellitus type: type 2 Diabetes mellitus complication status: with hyperglycemia Diabetes mellitus intermediate teacher insulin use: with intermediate teacher use Qualified Code(s): E11.65 - Type 2 diabetes mellitus with hyperglycemia; Z79.4 - correction (current) use of insulin; Z79.4 - watermaster (current) use of insulin ; Z79.4 - watermaster (current) use of insulin; Z79.4 - correction (current) use of insulin (8) Hepatitis C Code(s): B19.20 - UNSPECIFIED VIRAL HEPATITIS C WITHOUT HEPATIC COMA Qualifiers: Viral hepatitis chronicity: unspecified Hepatic coma status: without hepatic coma Qualified Code(s): B19.20 - Unspecified viral hepatitis C without hepatic coma (9) Hypothyroidism Code(s): E03.9 - HYPOTHYROIDISM, UNSPECIFIED Qualifiers: Hypothyroidism type: acquired Qualified Code(s): E03.9 - Hypothyroidism, unspecified (10) Seizure disorder Code(s): G40.909 - EPILEPSY, UNSP, NOT INTRACTABLE, WITHOUT STATUS EPILEPTICUS
--- NOTE | 2017-05-20 11:55 | PN ---
Progress Note, Physician History of Present Illness: stable family in room back pain issue otherwise doing well - Current Medication List Current Medications: Active Medications Albuterol Sulfate (Ventolin 0.083% Nebulizer Soln -) 1 amp NEB Q4H PRN PRN Reason: SHORT OF BREATH/WHEEZING Albuterol/Ipratropium (Duoneb -) 1 amp NEB RQID [facility] Last Admin: 05/20/17 11:37 Dose: Not Given Alprazolam (Xanax -) 1 mg PO TID [facility] Last Admin: 05/20/17 06:26 Dose: 1 mg Ascorbic Acid (Vitamin C -) 500 mg PO BID [facility] Last Admin: 05/20/17 10:18 Dose: 500 mg Aspirin (Ecotrin -) 81 mg PO DAILY [facility] Last Admin: 05/20/17 10:18 Dose: 81 mg Bisacodyl (Dulcolax -) 5 mg PO DAILY PRN PRN Reason: CONSTIPATION Last Admin: 05/16/17 11:05 Dose: 5 mg Diltiazem HCl (Cardizem Cd -) 120 mg PO DAILY [facility] Last Admin: 05/20/17 10:18 Dose: 120 mg Duloxetine HCl (Cymbalta -) 60 mg PO DAILY [facility] Last Admin: 05/20/17 10:18 Dose: 60 mg Gabapentin (Neurontin -) 300 mg PO QID [facility] Last Admin: 05/20/17 10:18 Dose: 300 mg Heparin Sodium (Porcine) (Heparin -) 5,000 unit SQ BID [facility] Last Admin: 05/20/17 10:18 Dose: 5,000 unit Insulin Aspart (Novolog Vial Sliding Scale -) 1 vial SQ [facility] PRN Reason: Protocol Last Admin: 05/20/17 06:25 Dose: Not Given Insulin Detemir (Levemir Vial) 17 units SQ BID@0700,2200 [facility] Last Admin: 05/20/17 06:26 Dose: 17 units Levetiracetam (Keppra -) 500 mg PO BID [facility] Last Admin: 05/20/17 10:18 Dose: 500 mg Lisinopril (Prinivil) 20 mg PO DAILY [facility] Last Admin: 05/20/17 10:18 Dose: 20 mg Montelukast Sodium (Singulair -) 10 mg PO HS [facility] Last Admin: 05/19/17 22:20 Dose: 10 mg Morphine Sulfate (Morphine Injection -) 2 mg IM Q4H PRN PRN Reason: PAIN LEVEL 6-10 Last Admin: 05/20/17 06:27 Dose: 2 mg Pramipexole Dihydrochloride (Mirapex -) 0.25 mg PO HS [facility] Last Admin: 05/19/17 22:20 Dose: 0.25 mg Ranitidine HCl (Zantac -) 150 mg PO BID [facility] Last Admin: 05/20/17 10:19 Dose: 150 mg Fluticasone/Salmeterol (Advair 100mcg/50mcg -) 1 puff IH BID [facility] Last Admin: 05/20/17 10:20 Dose: 1 puff Tiotropium [place] (Spiriva -) 18 puff IH DAILY [facility] Last Admin: 05/20/17 10:20 Dose: 1 puff Vancomycin HCl (Vancomycin Oral Solution) 250 mg PO Q6HPO [facility] Last Admin: 05/20/17 06:26 Dose: 250 mg - Objective Vital Signs: Vital Signs Temperature 98.4 F 05/20/17 05:58 Pulse Rate 78 05/20/17 05:58 Respiratory Rate 18 05/20/17 05:58 Blood Pressure 155/100 05/20/17 05:58 O2 Sat by Pulse Oximetry (%) 98 05/20/17 09:00 Constitutional: Yes: No Distress, Calm Cardiovascular: Yes: Regular Rate and Rhythm Respiratory: Yes: Regular, CTA Bilaterally Gastrointestinal: Yes: Normal Bowel Sounds, Soft Extremities: Yes: WNL Neurological: Yes: Alert, Oriented Psychiatric: Yes: Alert, Oriented Labs: CBC, BMP 05/17/17 06:50 05/17/17 06:50 Assessment/Plan Problem List - Problems (1) C. difficile colitis Thank you for the opportunity to participate in the care of this patient. Code(s): A04.72 - ENTEROCOLITIS D/T CLOSTRIDIUM DIFFICILE, NOT SPCF RECUR (2) Abdominal pain Code(s): R10.9 - UNSPECIFIED ABDOMINAL PAIN Qualifiers: Abdominal location: generalized Qualified Code(s): R10.84 - Generalized abdominal pain (3) Diarrhea Code(s): R19.7 - DIARRHEA, UNSPECIFIED Qualifiers: Diarrhea type: infectious Qualified Code(s): A09 - Infectious gastroenteritis and colitis, unspecified (4) Hypertension associated with diabetes Code(s): E11.59 - TYPE 2 DIABETES MELLITUS WITH OTH CIRCULATORY COMPLICATIONS; I10 - ESSENTIAL (PRIMARY) HYPERTENSION (5) Asthma Code(s): J45.909 - UNSPECIFIED ASTHMA, UNCOMPLICATED Qualifiers: Asthma severity: unspecified severity Asthma persistence: intermittent Asthma complication type: uncomplicated Qualified Code(s): J45.20 - Mild intermittent asthma, uncomplicated (6) Bipolar II disorder Code(s): F31.81 - BIPOLAR II DISORDER (7) Diabetes mellitus Code(s): E11.9 - TYPE 2 DIABETES MELLITUS WITHOUT COMPLICATIONS Qualifiers: Diabetes mellitus type: type 2 Diabetes mellitus complication status: with hyperglycemia Diabetes mellitus half-way insulin use: with half-way use Qualified Code(s): E11.65 - Type 2 diabetes mellitus with hyperglycemia; Z79.4 - [facility] (current) use of insulin; Z79.4 - middle or intermediate school principal (current) use of insulin ; Z79.4 - [facility] (current) use of insulin; Z79.4 - [facility] (current) use of insulin (8) Hepatitis C Code(s): B19.20 - UNSPECIFIED VIRAL HEPATITIS C WITHOUT HEPATIC COMA Qualifiers: Viral hepatitis chronicity: unspecified Hepatic coma status: without hepatic coma Qualified Code(s): B19.20 - Unspecified viral hepatitis C without hepatic coma (9) Hypothyroidism Code(s): E03.9 - HYPOTHYROIDISM, UNSPECIFIED Qualifiers: Hypothyroidism type: acquired Qualified Code(s): E03.9 - Hypothyroidism, unspecified (10) Seizure disorder Code(s): G40.909 - EPILEPSY, UNSP, NOT INTRACTABLE, WITHOUT STATUS EPILEPTICUS plan patient to complete course of vanco--14 days rest continue as per primary team mri done neurosurgery going to see the patient await for reports
--- NOTE | 2017-05-21 13:24 | CONSULT ---
Consult - text type - Consultation Consultation Note: Neurosurgery Consultation Patient is a 56 year old female with a long history of back and leg pains. She underwent L45 decompression at another institution, however, unfortunately she did not experience any relief. MRI suggests L45 loss of height and Modic changes with degenerative disc changes and a persisting/recurrent HNP. She has had extensive conservative efforts without sustained relief. I feel that she may be a candidate for reoperative decompression and fusion. This is not an emergent procedure and I have given the patient contact information if she wishes to pursue this option in the future. All questions were answered.
== END 2017-05-20 12:35 | disposition home or self-care (01) | DRG 248 ==
LOC: JER 16:50 → JERBED 05-13 00:58 → UNDOADMIN 05-13 01:04 → J7W 05-13 04:15
PROVIDERS: ADMIT Internal Medicine; ATTEND Family Medicine
DX: A04.72 Enterocolitis due to Clostridium difficile, not specified as recurrent (principal); E87.1 Hypo-osmolality and hyponatremia; I11.0 Hypertensive heart disease with heart failure; I50.9 Heart failure, unspecified; F11.20 Opioid dependence, uncomplicated; J44.9 Chronic obstructive pulmonary disease, unspecified; E11.40 Type 2 diabetes mellitus with diabetic neuropathy, unspecified; F41.9 Anxiety disorder, unspecified; G89.29 Other chronic pain; B19.20 Unspecified viral hepatitis C without hepatic coma; F31.9 Bipolar disorder, unspecified; Z68.37 Body mass index [BMI] 37.0-37.9, adult; F12.90 Cannabis use, unspecified, uncomplicated; G40.909 Epilepsy, unspecified, not intractable, without status epilepticus; F17.210 Nicotine dependence, cigarettes, uncomplicated; Z79.4 Long term (current) use of insulin; E03.9 Hypothyroidism, unspecified; F14.90 Cocaine use, unspecified, uncomplicated; E66.9 Obesity, unspecified; M51.26 Other intervertebral disc displacement, lumbar region
CPT/HCPCS: 36415; 72148-TC; 74018-TC-FY; 74177-TC; 80048; 80053; 80307; 81003; 81015; 82962; 83036; 83690; 83735; 84100; 85025; 85027; 85651; 86140; 87086; 87186; 87324; 87449; 93005; 93010; 93971-TC; 94640; 97116-GP; 97161-GP; 99284-25; J1644; J3480

== ENCOUNTER 2017-05-25 12:50 | Emergency (ER) | payer OTHER ==
[2017-05-25 13:00] VITALS: BP 128/100; PULSE 97; TEMP 98.7; BMI 35.2
--- NOTE | 2017-05-25 13:58 | PDOC ---
History of Present Illness - General Chief Complaint: Pain, Acute Stated Complaint: LLQ ABD PAIN BACK PAIN Time Seen by Provider: 05/25/17 13:23 History Source: Patient Exam Limitations: No Limitations - History of Present Illness Initial Comments: 05/25/17 14:04 56 y/o F with PMH HTN, DM, seizure disorder, Hep C, chronic pain, IVDA, anxiety , depression, recent admission for C. diff colitis (d/c on 2 week course of vancomycin), who presents to the ED c/o diarrhea and LLQ pain over the past three weeks. As per pt, since her discharge, she has had 6-7 loose BMs per day with mucus. Diarrhea is a/w LLQ pain that has gradually worsened during this time. The pain is constant, sharp, 10/10, exacerbated with movement, with no alleviating factors. During this time, pt has also had daily fevers (101-102F measured at home), decreased appetite, and numbness in her upper and lower extremities which she attributes to previous lumbar fx. Denies [place], chills, SOB, or changes in urinary function. Past History - Travel Traveled outside of the country in the last 30 days: No - Past Medical History Allergies/Adverse Reactions: Allergies Allergy/AdvReac Type Severity Reaction Status Date / Time No Known Allergies Allergy Verified 05/25/17 12:56 Home Medications: Ambulatory Orders RX: Albuterol Sulfate Inhaler - [Ventolin HFA Inhaler -] 2 inh PO Q4H PRN RX: Duloxetine HCl 60 mg PO DAILY 12/21/14 RX: Famotidine [Pepcid -] 40 mg PO DAILY 12/21/14 RX: Tiotropium [place] [Spiriva] 18 mcg IH DAILY 12/21/14 RX: Alprazolam [Xanax] 1 mg PO TID 07/13/16 RX: Tramadol HCl 100 mg PO TID 07/13/16 RX: Aspirin Coated [Ecotrin -] 81 mg PO DAILY #30 tab 07/22/16 RX: Diltiazem Cd [Cardizem Cd -] 120 mg PO DAILY #30 cap 07/22/16 RX: Lisinopril [Prinivil] 20 mg PO DAILY #30 tablet 07/22/16 RX: Montelukast Na [Singulair -] 10 mg PO HS #30 tablet 07/22/16 RX: levETIRAcetam [Keppra -] 500 mg PO BID tablet 07/22/16 RX: Ascorbic Acid [Vitamin C -] 500 mg PO BID #60 tablet 02/15/17 RX: Docusate Sodium [Colace -] 300 mg PO HS #30 cap 02/15/17 RX: Insulin (Levemir) [Levemir Flexpen -] 20 units SQ BID #4 pen 02/15/17 RX: Insulin (Novolog) [Novolog Flexpen -] 5 units SQ ACHS #4 pen 02/15/17 RX: Montelukast Na [Singulair -] 10 mg PO HS #30 tablet 02/15/17 RX: Pramipexole Dihydrochloride [Mirapex -] 0.25 mg PO HS #30 tablet 02/15/17 RX: Ranitidine [Zantac -] 150 mg PO BID #60 tablet 02/15/17 RX: Salmeterol/Fluticasone [Advair 100Mcg/50Mcg -] 1 puff IH BID #1 inhaler 09/26 RX: Sennosides [Senna -] 2 tab PO HS #60 tablet 02/15/17 RX: Zolpidem Tartrate [Ambien] 10 mg PO HS tablet MDD 1 02/15/17 RX: metFORMIN HCL [Glucophage -] 500 mg PO BID@0700,1630 #60 tablet 02/15/17 RX: Gabapentin [Neurontin -] 300 mg PO QID #120 capsule 05/20/17 RX: Insulin Aspart Prot/Insuln Asp [Novolog Mix 70-30 Flexpen Syrn] 35 unit SQ BID #1 box 05/20/17 RX: Vancomycin Oral Solution 125 mg PO Q6H #50 ml 05/20/17 RX: oxyCODONE HCL [Roxicodone -] 5 mg PO Q6H #20 tablet MDD 4 05/20/17 Anemia: No Asthma: Yes Cancer: No Cardiac Disorders: Yes (STENT X 1) CVA: No COPD: Yes CHF: Yes DVT: No Dementia: No Diabetes: Yes GI Disorders: No Disorders: No HTN: Yes Hypercholesterolemia: Yes Kidney Stones: Yes Liver Disease: Yes (cirrhosis, hep C) Psychiatric Problems: Yes (bipolar) Seizures: Yes (last episode 03/2013) Thyroid Disease: Yes - Surgical History Abdominal Surgery: No Appendectomy: Yes (age 11) Cardiac Surgery: Yes (STENT X 1) Cholecystectomy: Yes Lung Surgery: No Neurologic Surgery: No Orthopedic Surgery: Yes (lower back 02/2013) - Family Disease History Family Disease History: Diabetes: Brother, Sister, Heart Disease: Brother, Sister - Immunization History Td Vaccination: Yes Immunization Up to Date: Yes - Suicide/Smoking/Psychosocial Hx Smoking Status: Yes Smoking History: Current every day smoker Have you smoked in the past 12 months: Yes Number of Cigarettes Smoked Daily: 20 Information on smoking cessation initiated: Yes 'Breaking Loose' booklet given: 05/25/17 Hx Alcohol Use: No Drug/Substance Use Hx: No Substance Use Type: None Hx Substance Use Treatment: Yes (detox) Review of Systems - Review of Systems Constitutional: Yes: Loss of Appetite Respiratory: Yes: Cough, Wheezing ABD/GI: Yes: Diarrhea, Nausea Neurological: Yes: Numbness *Physical Exam - Vital Signs Last Vital Signs Temp Pulse Resp BP Pulse Ox 98.7 F 97 H 18 128/100 100 05/25/17 12:58 05/25/17 12:58 05/25/17 12:58 05/25/17 12:58 05/25/17 12:58 - Physical Exam General Appearance: Yes: Mild Distress HEENT: positive: EOMI Neck: positive: Supple Respiratory/Chest: positive: Wheezing Cardiovascular: positive: Regular Rhythm Vascular Pulses: Carotid (R): 2+ Gastrointestinal/Abdominal: positive: Normal Bowel Sounds, Guarding, Tenderness (ttp LLQ) Musculoskeletal: positive: Decreased Range of Motion Extremity: positive: Other Neurologic: positive: car detailer II-XII NML intact ED Treatment Course - LABORATORY CBC & Chemistry Diagram: 05/25/17 14:14 05/25/17 14:14 Medical Decision Making - Medical Decision Making 05/25/17 14:20 56 y/o F with PMH HTN, DM, seizure disorder, Hep C, chronic pain, IVDA, anxiety , depression, recent admission for C. diff colitis (d/c on 2 week course of vancomycin), who presents to the ED c/o diarrhea and LLQ pain over the past three weeks. Current differentials include: recurrence of c.diff colitis, gastroenteritis. Will order the following: CBC CMP EKG Vanco trough Stool cx Stool c.diff toxin and Ag Will start pt on the following: IV NS 100 cc/hr pain control, dilaudid 0.5mg Vanco 1g IVPB X 1 05/25/17 15:50 leukocytosis 14.4 05/25/17 17:17 Went to examine pt and was unable to find pt. As per staff, pt had taken her IV line out and had eloped. *DC/Admit/Observation/Transfer Diagnosis at time of Disposition: Eloped - Discharge Dispostion Disposition: ELOPED - Referrals Referrals: Rc Pineda MD [Primary Care Provider] - - Patient Instructions - Post Discharge Activity
[2017-05-25] MEDS ORDERED: VANCOMYCIN 1,000 MG in DEXTROSE 5%-WATER - 250 ML IVPB ONE (14:02)
[2017-05-25] MEDS ORDERED: morphine CARPU-JECT 2 MG/1 ML DISP.SYRIN IVPUSH ONE (14:03)
[2017-05-25] MEDS ORDERED: SODIUM CHLORIDE 1,000 ML IV SCH (14:15)
[2017-05-25] MEDS ORDERED: HYDROmorphone HCL CARPU-JECT 1 MG/1 ML DISP.SYRIN ONE (14:17)
[2017-05-25] MEDS ORDERED: VANCOMYCIN 500 MG VIAL (RESTRICTED TO ID ONLY) ONE (14:17)
[2017-05-25] MEDS ORDERED: HYDROmorphone HCL CARPU-JECT 1 MG/1 ML DISP.SYRIN IVPUSH ONE (14:17)
--- NOTE | 2017-05-25 14:32 | PDOC ---
Attending Attestation - Resident Resident Name: ElviraBlanca - ED Attending Attestation I have performed the following: I have examined & evaluated the patient, The case was reviewed & discussed with the resident, I agree w/resident's findings & plan, Exceptions are as noted - HPI HPI: 05/25/17 17:09 Ms. Sorto is a 56yF with PMH NIDDM, HTN, Anxiety, depression, chronic pain, former IVDA, COPD, CHF, Hep C, Bipolar, seizure disorder, thyroid disorder presented to the ED with persistent abdominal pain and diarrhea. Pt s/p recent admission, found to have C diff Discharged to home on po Vancomycin Pt reports compliance with these medications but has noted increased left sided abdominal pain No fevers or chills (+) diarrhea No vomiting - Physicial Exam PE: 05/25/17 14:32 GENERAL: The patient appears to be in pain. EYES: PERRLA, EOMI, sclera anicteric, conjunctiva clear. ENT: Ears normal, nares patent, oropharynx clear without exudates. Moist mucous membranes. NECK: Normal range of motion, supple LUNGS: Breath sounds equal, clear to auscultation bilaterally. No wheezes, and no crackles. HEART:Regular rate and rhythm, normal S1 and S2 without murmur, rub or gallop. ABDOMEN: Soft, lower abdominal tenderness, no involuntary guarding no rebound EXTREMITIES: Normal range of motion, no edema. No clubbing or cyanosis. No erythema, or tenderness. NEUROLOGICAL: Cranial nerves II through XII grossly intact. Normal speech. No focal neurological deficits. MUSCULOSKELETAL: Back non-tender to palpation, no CVA tenderness SKIN: Warm, Dry, normal turgor, no rashes or lesions noted. 05/25/17 17:23 - Medical Decision Making 05/25/17 17:08 05/25/17 17:09 Laboratory Tests 05/25/17 14:14 WBC 14.4 H D Hgb 14.7 Hct 44.4 Plt Count 343 EKG: NSR, rate of 86 bpm, axis nml, intervals nml 05/25/17 17:29 Attempted to re assess this patient She apparently left the ER upset without discussing this with anyone 05/25/17 17:48 Clinical impression: abdominal pain, initial presentation
[2017-05-25 14:50] LABS: BASO % 1.4 % (0-2.0); HEMATOCRIT 44.4 % (32.4-45.2); HEMOGLOBIN 14.7 GM/dL (10.7-15.3); LYMPH % 25.6 % (8-40); MCH 30.2 pg (25.7-33.7); MCHC 33.1 g/dl (32.0-36.0); MEAN CELL VOLUME 91.2 fl (80-96); MEAN PLT VOLUME 8.6 fl (7.5-11.1); MONO % 7.7 % (3.8-10.2); NEUT % 63.3 % (42.8-82.8); PLATELET COUNT 343 K/MM3 (134-434); RBC 4.87 M/mm3 (3.60-5.2); RDW 13.7 % (11.6-15.6); WHITE BLOOD COUNT 14.4 K/mm3 (4.0-10.0)
--- NOTE | 2017-05-26 10:05 | EKG ---
Test Reason : Blood Pressure : / mmHG Vent. Rate : 086 BPM Atrial Rate : 086 BPM P-R Int : 188 ms QRS Dur : 080 ms QT Int : 382 ms P-R-T Axes : 072 061 055 degrees QTc Int : 457 ms NORMAL SINUS RHYTHM NORMAL ECG WHEN COMPARED WITH ECG OF 17-MAY-2017 12:12, T WAVE INVERSION NO LONGER EVIDENT IN INFERIOR LEADS Confirmed by NOE WILLIS, SCAR ([id number]) on 05/26/2017 10:04:57 AM Referred By: Confirmed By:SCAR LIU MD
== END 2017-05-25 17:06 | disposition left against medical advice (07) ==
LOC: JER 12:50
PROC: 3E0337Z Introduction of Electrolytic and Water Balance Substance into Peripheral Vein, Percutaneous Approach (ICD-10-PCS; principal; 2017-05-25)
DX: R10.32 Left lower quadrant pain (principal); I25.10 Atherosclerotic heart disease of native coronary artery without angina pectoris; I10 Essential (primary) hypertension; Z95.5 Presence of coronary angioplasty implant and graft; J44.9 Chronic obstructive pulmonary disease, unspecified; J45.909 Unspecified asthma, uncomplicated; E11.9 Type 2 diabetes mellitus without complications; Z79.4 Long term (current) use of insulin; B18.2 Chronic viral hepatitis C; F41.8 Other specified anxiety disorders; Z86.69 Personal history of other diseases of the nervous system and sense organs; F17.210 Nicotine dependence, cigarettes, uncomplicated
CPT/HCPCS: 36415; 85025; 87040; 93005; 93010; 96361; 96365; 96375; 99282-25; G0480

== ENCOUNTER 2017-05-27 08:14 | Inpatient (IN) | payer OTHER ==
[2017-05-27 08:27] VITALS: BMI 37.5
[2017-05-27] MEDS ORDERED: SODIUM CHLORIDE 0.9% 1000 ML INFUS.BAG IV ONE ×2 (08:27→11:32)
[2017-05-27] MEDS ORDERED: ACETAMINOPHEN 1000 MG/100 ML VIAL (NON FORMULARY) IVPB ONE (08:27)
--- NOTE | 2017-05-27 09:13 | PDOC ---
Attending Attestation - Resident Resident Name: OswaldomedinaJayesh - ED Attending Attestation I have performed the following: I have examined & evaluated the patient, The case was reviewed & discussed with the resident, I agree w/resident's findings & plan, Exceptions are as noted - HPI HPI: 05/27/17 09:09 56-year-old female with multiple medical problems with recent admissions for colitis last discharged on 05/20 on oral antibiotics (question vancomycin and Flagyl) now presents with persistent watery diarrhea, persistent abdominal pain since discharge. - Physicial Exam PE: 05/27/17 09:10 Afebrile, tachycardic, O2 sat notably 93% on room air Alert, moaning in pain Dry mucosa Abdomen is soft, slightly distended. Diffuse tenderness greatest in the left lower quadrant where there is guarding and rebound. - Critical Care Time Total Critical Care Time: 45 Critical Care Statement: The care of this patient involved high complexity decision making to prevent further life threatening deterioration of the patient 's condition and/or to evaluate & treat vital organ system(s) failure or risk of failure. - Medical Decision Making 05/27/17 09:10 Patient seen and evaluated with the resident. I agree with the overall evaluation, assessment, and management with the following summary of visit: 56-year-old female with recently treated colitis presents with persistent abdominal pain, worsening diarrhea and now fever and tachycardia. Concern for ongoing colitis, given persistence would need to rule out abscess perforation. Sepsis protocol initiated IV access obtained, IV fluids, antipyretics Antibiotics PMD, GI, surgery consults Will need re-admission 05/27/17 10:25 Elevated white count and lactate, difficult IV access but ultimately obtained and IV fluid resuscitation initiated. Awaiting CAT scan and antibiotics. Heart Score/ECG Review #1 ECG reviewed & interpreted by me at: 10:38 General ECG Interpretation: Sinus Rhythm (tachy at 127.), Normal Intervals (qtc 409), No acute ischemic changes
[2017-05-27 09:16] LABS: BASO % 0.7 % (0-2.0); EOS % 0.6 % (0-4.5); HEMATOCRIT 47.6 % (32.4-45.2); HEMOGLOBIN 15.7 GM/dL (10.7-15.3); LYMPH % 4.4 % (8-40); MCH 30.2 pg (25.7-33.7); MEAN CELL VOLUME 91.5 fl (80-96); MEAN PLT VOLUME 8.8 fl (7.5-11.1); MONO % 6.1 % (3.8-10.2); NEUT % 88.2 % (42.8-82.8); PLATELET COUNT 357 K/MM3 (134-434); RDW 13.3 % (11.6-15.6); WHITE BLOOD COUNT 19.8 K/mm3 (4.0-10.0)
[2017-05-27 09:28] LABS: PROTHROMBIN TIME (PATIENT) 11.3 SEC (9.98-11.88)
[2017-05-27 09:31] LABS: ACTIVATED PTT 28.6 SECONDS (26.9-34.4)
--- NOTE | 2017-05-27 09:37 | PDOC ---
History of Present Illness - General Chief Complaint: Pain, Acute Stated Complaint: ABD PAIN Time Seen by Provider: 05/27/17 08:18 History Source: Patient Exam Limitations: Clinical Condition - History of Present Illness Initial Comments: 05/27/17 09:31 The patient is a 56F with a PMH of C. diff colitis, NIDDM, HTN, anxiety, depression, chronic pain, former IVDA, who presents to the ER with complaints of worsening abdominal pain and diarrhea. The patient was discharged on 05/20 for the same reason and treated with oral vanc outpatient. She states she finished her medication but her pain is worse. She's stating she has sharp, LLQ abdominal pain which is constant and associated with diffuse diarrhea. She says she has a fever but no vaginal bleeding or d/c, no hematuria, and no hematochezia. Past History - Past Medical History Allergies/Adverse Reactions: Allergies Allergy/AdvReac Type Severity Reaction Status Date / Time No Known Allergies Allergy Verified 05/25/17 12:56 Home Medications: Ambulatory Orders Albuterol Sulfate Inhaler - [Ventolin HFA Inhaler -] 2 inh PO Q4H PRN 11/06/14 Famotidine [Pepcid -] 40 mg PO DAILY 12/21/14 Tiotropium [place] [Spiriva] 18 mcg IH DAILY 12/21/14 Alprazolam [Xanax] 1 mg PO TID 07/13/16 Aspirin Coated [Ecotrin -] 81 mg PO DAILY #30 tab 07/22/16 Diltiazem Cd [Cardizem Cd -] 120 mg PO DAILY #30 cap 07/22/16 Lisinopril [Prinivil] 20 mg PO DAILY #30 tablet 07/22/16 Montelukast Na [Singulair -] 10 mg PO HS #30 tablet 07/22/16 levETIRAcetam [Keppra -] 500 mg PO BID tablet 07/22/16 Ascorbic Acid [Vitamin C -] 500 mg PO BID #60 tablet 02/15/17 Docusate Sodium [Colace -] 300 mg PO HS #30 cap 02/15/17 Insulin (Levemir) [Levemir Flexpen -] 20 units SQ BID #4 pen 02/15/17 Insulin (Novolog) [Novolog Flexpen -] 5 units SQ ACHS #4 pen 02/15/17 Montelukast Na [Singulair -] 10 mg PO HS #30 tablet 02/15/17 Pramipexole Dihydrochloride [Mirapex -] 0.25 mg PO HS #30 tablet 02/15/17 Salmeterol/Fluticasone [Advair 100Mcg/50Mcg -] 1 puff IH BID #1 inhaler Sennosides [Senna -] 2 tab PO HS #60 tablet 02/15/17 Zolpidem Tartrate [Ambien] 10 mg PO HS tablet MDD 1 02/15/17 metFORMIN HCL [Glucophage -] 500 mg PO BID@0700,1630 #60 tablet 02/15/17 Gabapentin [Neurontin -] 300 mg PO QID #120 capsule 05/20/17 Insulin Aspart Prot/Insuln Asp [Novolog Mix 70-30 Flexpen Syrn] 35 unit SQ BID # 1 box 05/20/17 oxyCODONE HCL [Roxicodone -] 5 mg PO Q6H #20 tablet MDD 4 05/20/17 Anemia: No Asthma: Yes Cancer: No Cardiac Disorders: Yes (STENT X 1) CVA: No COPD: Yes CHF: Yes DVT: No Dementia: No Diabetes: Yes GI Disorders: No Disorders: No HTN: Yes Hypercholesterolemia: Yes Kidney Stones: Yes Liver Disease: Yes (cirrhosis, hep C) Psychiatric Problems: Yes (bipolar) Seizures: Yes (last episode 03/2013) Thyroid Disease: Yes - Surgical History Abdominal Surgery: No Appendectomy: Yes (age 11) Cardiac Surgery: Yes (STENT X 1) Cholecystectomy: Yes Lung Surgery: No Neurologic Surgery: No Orthopedic Surgery: Yes (lower back 02/2013) - Family Disease History Family Disease History: Diabetes: Brother, Sister, Heart Disease: Brother, Sister - Immunization History Td Vaccination: Yes Immunization Up to Date: Yes - Suicide/Smoking/Psychosocial Hx Smoking Status: Yes Smoking History: Never smoked Have you smoked in the past 12 months: Yes Number of Cigarettes Smoked Daily: 20 Information on smoking cessation initiated: No 'Breaking Loose' booklet given: 05/25/17 Hx Alcohol Use: No Drug/Substance Use Hx: No Substance Use Type: None Hx Substance Use Treatment: Yes (detox) Review of Systems - Review of Systems Able to Perform ROS?: Yes Comments:: 05/27/17 09:37 GENERAL/CONSTITUTIONAL: Positive for fever. No chills. No weakness. HEAD, EYES, EARS, NOSE AND THROAT: No change in vision. No ear pain or discharge. No sore throat. CARDIOVASCULAR: No chest pain, palpitations, or lightheadedness. RESPIRATORY: No cough, wheezing, shortness of breath, or hemoptysis. GASTROINTESTINAL: Positive for abdominal pain and diarrhea. No nausea, vomiting , or constipation. GENITOURINARY: No dysuria, frequency, hematuria, or change in urination. MUSCULOSKELETAL: No joint or muscle swelling or pain. No neck or back pain. SKIN: No rash or lesions. NEUROLOGIC: No headache, numbness, tingling, weakness, loss of consciousness, or change in strength/sensation. ENDOCRINE: No increased thirst. No abnormal weight change. HEMATOLOGIC/LYMPHATIC: No anemia, easy bleeding, or history of blood clots. ALLERGIC/IMMUNOLOGIC: No hives or skin allergy. Is the patient limited Danish proficient: No *Physical Exam - Vital Signs Last Vital Signs Temp Pulse Resp BP Pulse Ox 102.4 F H 144 H 22 195/99 93 L 05/27/17 08:19 05/27/17 08:19 05/27/17 08:19 05/27/17 08:19 05/27/17 08:19 - Physical Exam Comments: 05/27/17 09:38 GENERAL: Well developed, well nourished. Awake and alert. In mild distress. HEENT: Normocephalic, atraumatic. Hearing grossly normal. Moist mucous membranes. PERRLA, EOMI. No conjunctival pallor. Sclera are non-icteric. NECK: Supple. Full ROM. No JVD. CARDIOVASCULAR: Regular rate and rhythm. No murmurs, rubs, or gallops. PULMONARY: No evidence of respiratory distress. Lungs clear to auscultation bilaterally. No wheezing, rales or rhonchi. ABDOMINAL: Soft. Diffuse tenderness to deep palpation. Non-distended. No rebound or guarding. MUSCULOSKELETAL: Normal range of motion at all joints. No bony deformities or tenderness. EXTREMITIES: No cyanosis. No clubbing. No edema. No calf tenderness. SKIN: Warm and dry. Normal capillary refill. No rashes. No jaundice. NEUROLOGICAL: Alert, awake, appropriate. Cranial nerves 2-12 intact. Normal speech. PSYCHIATRIC: Somewhat cooperative. Good eye contact. Appropriate mood and affect. ED Treatment Course - LABORATORY CBC & Chemistry Diagram: 05/27/17 09:15 05/27/17 09:15 - ADDITIONAL ORDERS Additional order review: 05/27/17 09:15 RBC 5.20 MCV 91.5 MCHC 33.0 RDW 13.3 MPV 8.8 Neutrophils % 88.2 H D Lymphocytes % 4.4 L D Monocytes % 6.1 Eosinophils % 0.6 Basophils % 0.7 - RADIOLOGY Radiology Studies Ordered: Category Date Time Status ABDOMEN & PELVIS CT WITH CONTR [CT] Stat CT Scan 05/27/17 09:05 Ordered CHEST X-RAY PORTABLE* [RAD] Stat Radiology 05/27/17 08:18 Ordered Medical Decision Making - Medical Decision Making 05/27/17 09:39 The patient is a 56 F with an extensive PMH including colitis who presents with abdominal pain and diarrhea. Sepsis protocol is being initiated with fluids and IV contrast CTAP. Giving IV tylenol for fever control. Pending labs and imaging. 05/27/17 13:14 CXR negative. Labs significant for WBC of 19.8, Hgb 15.7, Lactic of 3.6 and glucose 357. Covering with fluids, IV vanc/zosyn, and metronidazole. Pending read of CTAP. 05/27/17 14:58 CTAP indicated b/l lower lobe PNA. Dr. Pineda accepts admission. *DC/Admit/Observation/Transfer Diagnosis at time of Disposition: Pneumonia Qualifiers: Pneumonia type: due to unspecified organism Laterality: bilateral Lung location : lower lobe of lung Qualified Code(s): J18.9 - Pneumonia, unspecified organism - Discharge Dispostion Condition at time of disposition: Guarded Admit: Yes - Referrals Referrals: Rc Pineda MD [Primary Care Provider] - - Patient Instructions - Post Discharge Activity
[2017-05-27 09:39] LABS: URINE APPEARANCE CLEAR; URINE BILIRUBIN NEGATIVE (NEGATIVE); URINE BLOOD 1+ (NEGATIVE); URINE COLOR LTYELLOW; URINE GLUCOSE (UA) 3+ (NEGATIVE); URINE KETONE NEGATIVE (NEGATIVE); URINE LEUK ESTERASE NEGATIVE (NEGATIVE); URINE NITRITE NEGATIVE (NEGATIVE); URINE UROBILINOGEN NEGATIVE mg/dL (0.2-1.0)
[2017-05-27 09:44] LABS: ALBUMIN 3.7 g/dl (3.4-5.0); ANION GAP 8 (8-16); BILIRUBIN,TOTAL 0.5 mg/dL (0.2-1.0); BLOOD UREA NITROGEN 11 mg/dL (7-18); CALCIUM 9.3 mg/dL (8.5-10.1); CHLORIDE 94 mmol/L (98-107); CO2 29 mmol/L (21-32); CREATININE 0.9 mg/dL (0.55-1.02); POTASSIUM 4.8 mmol/L (3.5-5.1); SGOT/AST 46 U/L (15-37); SGPT/ALT 69 U/L (12-78); SODIUM 131 mmol/L (136-145); TOT PROT 8.9 g/dl (6.4-8.2)
[2017-05-27 09:46] LABS: ALK PHOS 152 U/L (45-117)
[2017-05-27 09:51] LABS: GLUCOSE,RANDOM 357 mg/dL (74-106)
[2017-05-27 09:53] LABS: URINE PROTEIN 2+ (NEGATIVE)
[2017-05-27 09:54] LABS: EPI CELLS RARE /HPF (FEW); URINE BACTERIA RARE /hpf (NONE SEEN)
[2017-05-27] MEDS ORDERED: VANCOMYCIN 1,000 MG in DEXTROSE 5%-WATER - 250 ML IVPB ONE (10:26)
[2017-05-27] MEDS ORDERED: PIPERACILLIN/TAZOB 4.5 GM 4.5 GM/100 ML BAG IVPB ONE ×2 (10:26→10:42)
[2017-05-27] MEDS ORDERED: ACETAMINOPHEN INJECTION 100 ML IVPB ONE (10:29)
[2017-05-27] MEDS ORDERED: ALBUTEROL SO4 2.5/IPRATROPIUM 0.5 INH SOL 3 ML VIAL.NEB. NEB PRN (14:59)
[2017-05-27] MEDS ORDERED: ZOLPIDEM TARTRATE 5 MG TABLET PO PRN (14:59)
[2017-05-27] MEDS ORDERED: ALPRAZolam 2 MG TABLET PO PRN (14:59)
--- NOTE | 2017-05-27 16:28 | EKG ---
Test Reason : Blood Pressure : / mmHG Vent. Rate : 127 BPM Atrial Rate : 127 BPM P-R Int : 164 ms QRS Dur : 078 ms QT Int : 282 ms P-R-T Axes : 069 058 044 degrees QTc Int : 409 ms SINUS TACHYCARDIA POSSIBLE LEFT ATRIAL ENLARGEMENT BORDERLINE ECG WHEN COMPARED WITH ECG OF 25-MAY-2017 15:44, NO SIGNIFICANT CHANGE WAS FOUND Confirmed by YAMILE OLMOS MD ([id number]) on 05/27/2017 4:27:41 PM Referred By: Confirmed By:YAMILE OLMOS MD
[2017-05-27] MEDS ORDERED: oxyCODONE HCL 5 MG TABLET ONE (16:34)
[2017-05-27] MEDS: oxyCODONE HCL 5 MG TABLET PO PRN (16:42)
[2017-05-27] MEDS ORDERED: INSULIN (NOVOLOG) ASPART 100 UNITS/ML 10ML VIAL ONE (17:36)
[2017-05-27] MEDS: INSULIN SLIDING SCALE (NOVOLOG) 1 VIAL SQ SCH ×2 (17:42→21:28)
[2017-05-27] MEDS: levETIRAcetam 500 MG TABLET (FP) PO SCH (21:27)
[2017-05-27] MEDS: INSULIN DETEMIR 100 UNITS/ML MDV SQ SCH (21:27)
[2017-05-27] MEDS: GABAPENTIN 300 MG CAPSULE (FP) PO SCH (21:27)
[2017-05-27] MEDS: HEPARIN NA (PORCINE) 5,000 UNITS/ML 1ML VIAL SQ SCH (21:27)
[2017-05-27] MEDS: MONTELUKAST NA 10 MG TABLET PO SCH (21:27)
[2017-05-27] MEDS: SODIUM CHLORIDE 1,000 ML IV SCH (22:35)
[2017-05-27] MEDS: PIPERACILLIN/TAZOB 3.375 GM 3.375 GM in DEXTROSE 5%-WATER - 50 ML IVPB SCH (23:00)
[2017-05-28] MEDS: ACETAMINOPHEN 325 MG TABLET (FP) PO PRN ×3 (01:09→15:51)
[2017-05-28] MEDS: oxyCODONE HCL 5 MG TABLET PO PRN ×3 (01:09→18:03)
[2017-05-28] MEDS: INSULIN SLIDING SCALE (NOVOLOG) 1 VIAL SQ SCH ×3 (06:04→17:47)
[2017-05-28] MEDS: GABAPENTIN 300 MG CAPSULE (FP) PO SCH ×2 (06:04→14:01)
[2017-05-28 09:05] LABS: HEMATOCRIT 40.3 % (32.4-45.2); MCH 29.4 pg (25.7-33.7); MCHC 32.3 g/dl (32.0-36.0); MEAN CELL VOLUME 90.9 fl (80-96); MEAN PLT VOLUME 9.4 fl (7.5-11.1); PLATELET COUNT 339 K/MM3 (134-434); RBC 4.43 M/mm3 (3.60-5.2); RDW 13.7 % (11.6-15.6); WHITE BLOOD COUNT 20.8 K/mm3 (4.0-10.0)
[2017-05-28 09:08] LABS: ALBUMIN 2.8 g/dl (3.4-5.0); ANION GAP 5 (8-16); BLOOD UREA NITROGEN 7 mg/dL (7-18); CALCIUM 8.1 mg/dL (8.5-10.1); CHLORIDE 101 mmol/L (98-107); CO2 30 mmol/L (21-32); GLUCOSE,RANDOM 177 mg/dL (74-106); POTASSIUM 4.4 mmol/L (3.5-5.1); SODIUM 136 mmol/L (136-145)
[2017-05-28 09:12] LABS: ALK PHOS 87 U/L (45-117); BILIRUBIN,TOTAL 0.7 mg/dL (0.2-1.0); CREATININE 0.6 mg/dL (0.55-1.02); SGOT/AST 26 U/L (15-37); SGPT/ALT 44 U/L (12-78); TOT PROT 7.1 g/dl (6.4-8.2)
[2017-05-28] MEDS: LACTOBACILLUS ACIDOPHILUS 1 EACH TAB (FP) PO SCH (09:44)
[2017-05-28] MEDS: HEPARIN NA (PORCINE) 5,000 UNITS/ML 1ML VIAL SQ SCH (09:44)
[2017-05-28] MEDS: PIPERACILLIN/TAZOB 3.375 GM 3.375 GM in DEXTROSE 5%-WATER - 50 ML IVPB SCH ×2 (09:45→17:48)
[2017-05-28] MEDS: PANTOPRAZOLE 40 MG TABLET (FP) PO SCH (09:45)
[2017-05-28] MEDS: ASPIRIN COATED 81 MG TABLET.EC PO SCH (09:45)
[2017-05-28] MEDS: LISINOPRIL 20 MG TABLET (FP) PO SCH (09:45)
[2017-05-28] MEDS: levETIRAcetam 500 MG TABLET (FP) PO SCH (09:45)
--- NOTE | 2017-05-28 11:24 | HP ---
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 pt thinks she may have had one in the past (L facial droop)), Seizure. No: Alzheimer's Cardiovascular: Yes: CAD, HTN. No: AFIB Pulmonary: Yes: Asthma, COPD Gastrointestinal: Yes: Hiatal Hernia, Other ("colitis" mid-April) Hepatobiliary: Yes: Hepatitis C (from a blood transfusion) Infectious Disease: Yes: MRSA (R thigh abscess 02/26) Psych: Yes: Addictions, Anxiety, Bipolar, Depression Musculoskeletal: Yes: Chronic low back pain Endocrine: Yes: Diabetes Mellitus - Past Surgical History Past Surgical History: Yes: Appendectomy, Cholecystectomy (laparoscopic), Colonoscopy, Hysterectomy (vaginal) - Smoking History Smoking history: Never smoked Have you smoked in the past 12 months: No Aproximately how many cigarettes per day: 20 - Alcohol/Substance Use Hx Alcohol Use: No History of Substance Use: reports: Cocaine (crack) - Social History Occupation: disabled History of Recent Travel: No Home Medications - Allergies Allergies/Adverse Reactions: Allergies Allergy/AdvReac Type Severity Reaction Status Date / Time No Known Allergies Allergy Verified 05/25/17 12:56 - Home Medications Home Medications: Ambulatory Orders Albuterol Sulfate Inhaler - [Ventolin HFA Inhaler -] 2 inh PO Q4H PRN 11/06/14 Famotidine [Pepcid -] 40 mg PO DAILY 12/21/14 Tiotropium [place] [Spiriva] 18 mcg IH DAILY 12/21/14 Alprazolam [Xanax] 1 mg PO TID 07/13/16 Aspirin Coated [Ecotrin -] 81 mg PO DAILY #30 tab 07/22/16 Diltiazem Cd [Cardizem Cd -] 120 mg PO DAILY #30 cap 07/22/16 Lisinopril [Prinivil] 20 mg PO DAILY #30 tablet 07/22/16 Montelukast Na [Singulair -] 10 mg PO HS #30 tablet 07/22/16 levETIRAcetam [Keppra -] 500 mg PO BID tablet 07/22/16 Ascorbic Acid [Vitamin C -] 500 mg PO BID #60 tablet 02/15/17 Docusate Sodium [Colace -] 300 mg PO HS #30 cap 02/15/17 Insulin (Levemir) [Levemir Flexpen -] 20 units SQ BID #4 pen 02/15/17 Insulin (Novolog) [Novolog Flexpen -] 5 units SQ ACHS #4 pen 02/15/17 Montelukast Na [Singulair -] 10 mg PO HS #30 tablet 02/15/17 Pramipexole Dihydrochloride [Mirapex -] 0.25 mg PO HS #30 tablet 02/15/17 Salmeterol/Fluticasone [Advair 100Mcg/50Mcg -] 1 puff IH BID #1 inhaler Sennosides [Senna -] 2 tab PO HS #60 tablet 02/15/17 Zolpidem Tartrate [Ambien] 10 mg PO HS tablet MDD 1 02/15/17 metFORMIN HCL [Glucophage -] 500 mg PO BID@0700,1630 #60 tablet 02/15/17 Gabapentin [Neurontin -] 300 mg PO QID #120 capsule 05/20/17 Insulin Aspart Prot/Insuln Asp [Novolog Mix 70-30 Flexpen Syrn] 35 unit SQ BID # 1 box 05/20/17 oxyCODONE HCL [Roxicodone -] 5 mg PO Q6H #20 tablet MDD 4 05/20/17 Family Disease History - Family Disease History Family Disease History: Diabetes: Mother, Heart Disease: Father, Brother, Sister , Respiratory: Father, Other: Father, Brother, Sister Review of Systems - Review of Systems Constitutional: reports: Fever, Loss of Appetite, Weakness Eyes: reports: No Symptoms HENT: reports: No Symptoms Neck: reports: No Symptoms Cardiovascular: reports: No Symptoms Respiratory: reports: SOB, Wheezing Gastrointestinal: reports: No Symptoms Genitourinary: reports: No Symptoms Musculoskeletal: reports: Joint Pain, Muscle Weakness Integumentary: reports: No Symptoms Neurological: reports: Pre-Existing Deficit, Weakness Endocrine: reports: No Symptoms Hematology/Lymphatic: reports: No Symptoms Psychiatric: reports: Anxiety, Depression, Panic Physical Examination Vital Signs: Vital Signs Temperature 101.0 F H 05/28/17 05:52 Pulse Rate 110 H 05/28/17 05:52 Respiratory Rate 20 05/28/17 05:52 Blood Pressure 126/78 05/28/17 05:52 O2 Sat by Pulse Oximetry (%) 92 L 05/27/17 21:00 Constitutional: Yes: Mild Distress Eyes: Yes: WNL HENT: Yes: WNL Neck: Yes: WNL Cardiovascular: Yes: WNL Respiratory: Yes: Cough, On Nasal O2, Poor Air Entry, Rhonchi Gastrointestinal: Yes: Distention Renal/: Yes: WNL Musculoskeletal: Yes: Back Pain, Muscle Pain, Muscle Weakness Extremities: Yes: Other Edema: Yes Edema: LLE: Trace, RLE: Trace Peripheral Pulses WNL: Yes Integumentary: Yes: WNL Wound/Incision: Yes: Clean/Dry Neurological: Yes: Pre-Existing Deficit ...Motor Strength: LLE, RLE Psychiatric: Yes: Other Labs: CBC, BMP 05/28/17 08:30 05/28/17 08:30 Problem List - Problems (1) Pneumonia Code(s): J18.9 - PNEUMONIA, UNSPECIFIED ORGANISM Qualifiers: Pneumonia type: due to unspecified organism Laterality: bilateral Lung location: lower lobe of lung Qualified Code(s): J18.9 - Pneumonia, unspecified organism (2) Abdominal pain Code(s): R10.9 - UNSPECIFIED ABDOMINAL PAIN Qualifiers: (3) CAD (coronary artery disease) Code(s): I25.10 - ATHSCL HEART DISEASE OF [place] CORONARY ARTERY W/O ANG PCTRS (4) COPD (chronic obstructive pulmonary disease) Code(s): J44.9 - CHRONIC OBSTRUCTIVE PULMONARY DISEASE, UNSPECIFIED (5) Diabetes mellitus Code(s): E11.9 - TYPE 2 DIABETES MELLITUS WITHOUT COMPLICATIONS Qualifiers: (6) Diabetes type 2, controlled Code(s): E11.9 - TYPE 2 DIABETES MELLITUS WITHOUT COMPLICATIONS (7) Hypertension Code(s): I10 - ESSENTIAL (PRIMARY) HYPERTENSION (8) Nicotine dependence Code(s): F17.200 - NICOTINE DEPENDENCE, UNSPECIFIED, UNCOMPLICATED Assessment/Plan IV ABX NEBS 02 SUPPORT OOB TO CHAIR FLU SWAB/TAMIFLU OOB TO CHAIR
[2017-05-28] MEDS ORDERED: INSULIN (NOVOLOG) ASPART 100 UNITS/ML 10ML VIAL ONE (12:08)
[2017-05-28] MEDS: OSELTAMIVIR PHOSPHATE 75 MG CAPSULE PO SCH (13:59)
[2017-05-28] MEDS: DULoxetine HCL 30 MG CAPSULE.DR (FP) PO SCH (13:59)
--- NOTE | 2017-05-28 14:43 | CON.ID ---
Consult Consult Specialty:: infectious diseases Reason for Consultation:: pneumonia - History of Present Illness Chief Complaint: weakness,fever,dirrhoea,cough History of Present Illness: 56 Y/O female known to me from previous admission diagnosed with cdiff colitis coming back with sob cough weaknes and fever. 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 pt thinks she may have had one in the past (L facial droop)), Seizure. No: Alzheimer's Cardio/Vascular: Yes: CAD, HTN. No: AFIB Pulmonary: Yes: Asthma, COPD Gastrointestinal: Yes: Hiatal Hernia, Other ("colitis" mid-April) Hepatobiliary: Yes: Hepatitis C (from a blood transfusion) Infectious Disease: Yes: MRSA (R thigh abscess 02/26) Psych: Yes: Addictions, Anxiety, Bipolar, Depression Musculoskeletal: Yes: Chronic low back pain Endocrine: Yes: Diabetes Mellitus - Past Surgical History Past Surgical History: Yes: Appendectomy, Cholecystectomy (laparoscopic), Colonoscopy, Hysterectomy (vaginal) - Alcohol/Substance Use Hx Alcohol Use: No History of Substance Use: reports: Cocaine (crack) - Smoking History Smoking history: Never smoked Have you smoked in the past 12 months: No Aproximately how many cigarettes per day: 20 - Social History Usual Living Arrangement: With Spouse Occupation: disabled History of Recent Travel: No Home Medications - Allergies Allergies/Adverse Reactions: Allergies Allergy/AdvReac Type Severity Reaction Status Date / Time No Known Allergies Allergy Verified 05/25/17 12:56 - Home Medications Home Medications: Ambulatory Orders Albuterol Sulfate Inhaler - [Ventolin HFA Inhaler -] 2 inh PO Q4H PRN 11/06/14 Famotidine [Pepcid -] 40 mg PO DAILY 12/21/14 Tiotropium [place] [Spiriva] 18 mcg IH DAILY 12/21/14 Alprazolam [Xanax] 1 mg PO TID 07/13/16 Aspirin Coated [Ecotrin -] 81 mg PO DAILY #30 tab 07/22/16 Diltiazem Cd [Cardizem Cd -] 120 mg PO DAILY #30 cap 07/22/16 Lisinopril [Prinivil] 20 mg PO DAILY #30 tablet 07/22/16 Montelukast Na [Singulair -] 10 mg PO HS #30 tablet 07/22/16 levETIRAcetam [Keppra -] 500 mg PO BID tablet 07/22/16 Ascorbic Acid [Vitamin C -] 500 mg PO BID #60 tablet 02/15/17 Docusate Sodium [Colace -] 300 mg PO HS #30 cap 02/15/17 Insulin (Levemir) [Levemir Flexpen -] 20 units SQ BID #4 pen 02/15/17 Insulin (Novolog) [Novolog Flexpen -] 5 units SQ ACHS #4 pen 02/15/17 Montelukast Na [Singulair -] 10 mg PO HS #30 tablet 02/15/17 Pramipexole Dihydrochloride [Mirapex -] 0.25 mg PO HS #30 tablet 02/15/17 Salmeterol/Fluticasone [Advair 100Mcg/50Mcg -] 1 puff IH BID #1 inhaler Sennosides [Senna -] 2 tab PO HS #60 tablet 02/15/17 Zolpidem Tartrate [Ambien] 10 mg PO HS tablet MDD 1 02/15/17 metFORMIN HCL [Glucophage -] 500 mg PO BID@0700,1630 #60 tablet 02/15/17 Gabapentin [Neurontin -] 300 mg PO QID #120 capsule 05/20/17 Insulin Aspart Prot/Insuln Asp [Novolog Mix 70-30 Flexpen Syrn] 35 unit SQ BID # 1 box 05/20/17 oxyCODONE HCL [Roxicodone -] 5 mg PO Q6H #20 tablet MDD 4 05/20/17 Family Disease History - Family Disease History Family Disease History: Diabetes: Mother, Heart Disease: Father, Brother, Sister , Respiratory: Father, Other: Father, Brother, Sister Review of Systems - Review of Systems Constitutional: reports: Fever, Weakness Eyes: reports: No Symptoms HENT: reports: No Symptoms Neck: reports: No Symptoms Cardiovascular: reports: No Symptoms Respiratory: reports: Cough, SOB, SOB on Exertion Gastrointestinal: reports: Diarrhea Genitourinary: reports: No Symptoms Musculoskeletal: reports: No Symptoms Integumentary: reports: No Symptoms Neurological: reports: No Symptoms Endocrine: reports: No Symptoms Hematology/Lymphatic: reports: No Symptoms Psychiatric: reports: No Symptoms Physical Exam Vital Signs: Vital Signs Temperature 98.7 F 05/28/17 10:00 Pulse Rate 88 05/28/17 10:00 Respiratory Rate 18 05/28/17 10:00 Blood Pressure 121/74 05/28/17 10:00 O2 Sat by Pulse Oximetry (%) 92 L 05/28/17 09:00 Constitutional: Yes: Well Nourished, Calm, Obese Eyes: Yes: Conjunctiva Clear Neck: Yes: Supple, Trachea Midline Cardiovascular: Yes: S1, S2 Respiratory: Yes: Poor Air Entry, Rhonchi, Other Gastrointestinal: Yes: Normal Bowel Sounds, Soft, Tenderness (left lower quadrant) Musculoskeletal: Yes: WNL Extremities: Yes: WNL Neurological: Yes: Alert, Oriented Labs: CBC, BMP 05/28/17 08:30 05/28/17 08:30 Imaging - Results Chest X-ray: Report Reviewed, Image Reviewed Assessment/Plan Problem List - Problems (1) Pneumonia Code(s): J18.9 - PNEUMONIA, UNSPECIFIED ORGANISM Qualifiers: Pneumonia type: due to unspecified organism Laterality: bilateral Lung location: lower lobe of lung Qualified Code(s): J18.9 - Pneumonia, unspecified organism (2) Abdominal pain Code(s): R10.9 - UNSPECIFIED ABDOMINAL PAIN Qualifiers: (3) CAD (coronary artery disease) Code(s): I25.10 - ATHSCL HEART DISEASE OF [place] CORONARY ARTERY W/O ANG PCTRS (4) COPD (chronic obstructive pulmonary disease) Code(s): J44.9 - CHRONIC OBSTRUCTIVE PULMONARY DISEASE, UNSPECIFIED (5) Diabetes mellitus Code(s): E11.9 - TYPE 2 DIABETES MELLITUS WITHOUT COMPLICATIONS Qualifiers: (6) Diabetes type 2, controlled Code(s): E11.9 - TYPE 2 DIABETES MELLITUS WITHOUT COMPLICATIONS (7) Hypertension Code(s): I10 - ESSENTIAL (PRIMARY) HYPERTENSION (8) Nicotine dependence Code(s): F17.200 - NICOTINE DEPENDENCE, UNSPECIFIED, UNCOMPLICATED plan will start patient on abx ct of the chest resp support if patient continues to have dirrhoea work up for cdiff rest as per primary team
--- NOTE | 2017-05-28 14:46 | PN ---
Teaching Attending Note Name of Resident: Jean Lainez ATTENDING PHYSICIAN STATEMENT I saw and evaluated the patient. I reviewed the resident's note and discussed the case with the resident. I agree with the resident's findings and plan as documented. PULMONARY IMP BILATERAL PNEUMONIA HCAP COPD EXACERBATION COLITIS ASHD S/P STENT ABDOMINAL PAIN CHF HEP C DM BIPOLAR H/O SUBSTANCE TOBACCO ABUSE SUSPECTED DB PLAN IV ANTIBIOTICS INHALED BRONCHODILATORS IV STEROIDS O2 CULTURES CHEST CT NICODERM PATCH SLEEP SCREEN PFTS OUTPATIENT SMOKING CESSATION COUNSELED DR PERDUE Problem List - Problems (1) Tobacco abuse counseling Code(s): Z71.6 - TOBACCO ABUSE COUNSELING (2) Pneumonia Code(s): J18.9 - PNEUMONIA, UNSPECIFIED ORGANISM Qualifiers: Pneumonia type: due to unspecified organism Laterality: bilateral Lung location: lower lobe of lung Qualified Code(s): J18.9 - Pneumonia, unspecified organism (3) Abdominal pain Code(s): R10.9 - UNSPECIFIED ABDOMINAL PAIN Qualifiers: (4) COPD exacerbation Code(s): J44.1 - CHRONIC OBSTRUCTIVE PULMONARY DISEASE W (ACUTE) EXACERBATION (5) Diarrhea Code(s): R19.7 - DIARRHEA, UNSPECIFIED Qualifiers: Diarrhea type: infectious Qualified Code(s): A09 - Infectious gastroenteritis and colitis, unspecified (6) Hyperglycemia Code(s): R73.9 - HYPERGLYCEMIA, UNSPECIFIED (7) Tobacco abuse Code(s): Z72.0 - TOBACCO USE (8) Type 2 diabetes mellitus with diabetic neuropathy, unspecified Code(s): E11.40 - TYPE 2 DIABETES MELLITUS WITH DIABETIC NEUROPATHY, UNSP (9) Bipolar II disorder Code(s): F31.81 - BIPOLAR II DISORDER (10) Diabetes mellitus Code(s): E11.9 - TYPE 2 DIABETES MELLITUS WITHOUT COMPLICATIONS Qualifiers: (11) Hepatitis C Code(s): B19.20 - UNSPECIFIED VIRAL HEPATITIS C WITHOUT HEPATIC COMA Qualifiers: Viral hepatitis chronicity: unspecified Hepatic coma status: without hepatic coma Qualified Code(s): B19.20 - Unspecified viral hepatitis C without hepatic coma (12) Nicotine dependence Code(s): F17.200 - NICOTINE DEPENDENCE, UNSPECIFIED, UNCOMPLICATED (13) ASHD (arteriosclerotic heart disease) Code(s): I25.10 - ATHSCL HEART DISEASE OF [place] CORONARY ARTERY W/O ANG PCTRS
--- NOTE | 2017-05-28 15:12 | CON.PULM ---
Consult Consult Specialty:: Pulmonary Referred by:: Dr. Pineda Reason for Consultation:: b/l pneumonia - History of Present Illness Chief Complaint: abd pain/diarrhea. With cough & SOB x 4 weeks History of Present Illness: 56 y.o. F with pmh of c. diff colitis, DM, HTN, previous IVDA user, and current 1ppd smoker x many years presented with abdmoinal pain/diarrhea. Patient was d/ c on 05/20 with c diff oclitis and treated with oral vanco outpt. Patient finished her course but did not have improvement in her pain. Patient also has been having SOB and cough with green sputum & blood x 1 month. Patient also has been having wheezing, fever, chills. 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 pt thinks she may have had one in the past (L facial droop)), Seizure. No: Alzheimer's Cardio/Vascular: Yes: CAD, HTN. No: AFIB Pulmonary: Yes: Asthma, COPD Gastrointestinal: Yes: Hiatal Hernia, Other ("colitis" mid-April) Hepatobiliary: Yes: Hepatitis C (from a blood transfusion) Infectious Disease: Yes: MRSA (R thigh abscess 02/26) Psych: Yes: Addictions, Anxiety, Bipolar, Depression Musculoskeletal: Yes: Chronic low back pain Endocrine: Yes: Diabetes Mellitus - Past Surgical History Past Surgical History: Yes: Appendectomy, Cholecystectomy (laparoscopic), Colonoscopy, Hysterectomy (vaginal) - Alcohol/Substance Use Hx Alcohol Use: No History of Substance Use: reports: Cocaine (crack) - Smoking History Smoking history: Never smoked Have you smoked in the past 12 months: No Aproximately how many cigarettes per day: 20 - Social History Usual Living Arrangement: With Spouse Occupation: disabled History of Recent Travel: No Home Medications - Allergies Allergies/Adverse Reactions: Allergies Allergy/AdvReac Type Severity Reaction Status Date / Time No Known Allergies Allergy Verified 05/25/17 12:56 - Home Medications Home Medications: Ambulatory Orders Albuterol Sulfate Inhaler - [Ventolin HFA Inhaler -] 2 inh PO Q4H PRN 11/06/14 Famotidine [Pepcid -] 40 mg PO DAILY 12/21/14 Tiotropium [place] [Spiriva] 18 mcg IH DAILY 12/21/14 Alprazolam [Xanax] 1 mg PO TID 07/13/16 Aspirin Coated [Ecotrin -] 81 mg PO DAILY #30 tab 07/22/16 Diltiazem Cd [Cardizem Cd -] 120 mg PO DAILY #30 cap 07/22/16 Lisinopril [Prinivil] 20 mg PO DAILY #30 tablet 07/22/16 Montelukast Na [Singulair -] 10 mg PO HS #30 tablet 07/22/16 levETIRAcetam [Keppra -] 500 mg PO BID tablet 07/22/16 Ascorbic Acid [Vitamin C -] 500 mg PO BID #60 tablet 02/15/17 Docusate Sodium [Colace -] 300 mg PO HS #30 cap 02/15/17 Insulin (Levemir) [Levemir Flexpen -] 20 units SQ BID #4 pen 02/15/17 Insulin (Novolog) [Novolog Flexpen -] 5 units SQ ACHS #4 pen 02/15/17 Montelukast Na [Singulair -] 10 mg PO HS #30 tablet 02/15/17 Pramipexole Dihydrochloride [Mirapex -] 0.25 mg PO HS #30 tablet 02/15/17 Salmeterol/Fluticasone [Advair 100Mcg/50Mcg -] 1 puff IH BID #1 inhaler Sennosides [Senna -] 2 tab PO HS #60 tablet 02/15/17 Zolpidem Tartrate [Ambien] 10 mg PO HS tablet MDD 1 02/15/17 metFORMIN HCL [Glucophage -] 500 mg PO BID@0700,1630 #60 tablet 02/15/17 Gabapentin [Neurontin -] 300 mg PO QID #120 capsule 05/20/17 Insulin Aspart Prot/Insuln Asp [Novolog Mix 70-30 Flexpen Syrn] 35 unit SQ BID # 1 box 05/20/17 oxyCODONE HCL [Roxicodone -] 5 mg PO Q6H #20 tablet MDD 4 05/20/17 Family Disease History - Family Disease History Family Disease History: Diabetes: Mother, Heart Disease: Father, Brother, Sister , Respiratory: Father, Other: Father, Brother, Sister Review of Systems Findings/Remarks: GENERAL/CONSTITUTIONAL: Positive for fever. No chills. No weakness. HEAD, EYES, EARS, NOSE AND THROAT: No change in vision. No ear pain or discharge. No sore throat. CARDIOVASCULAR: No chest pain, palpitations, or lightheadedness. RESPIRATORY: + cough, wheezing, SOB, Sputum GASTROINTESTINAL: Positive for abdominal pain and diarrhea. No nausea, vomiting , or constipation. GENITOURINARY: No dysuria, frequency, hematuria, or change in urination. MUSCULOSKELETAL: No joint or muscle swelling or pain. No neck or back pain. SKIN: No rash or lesions. NEUROLOGIC: No headache, numbness, tingling, weakness, loss of consciousness, or change in strength/sensation. ENDOCRINE: No increased thirst. No abnormal weight change. HEMATOLOGIC/LYMPHATIC: No anemia, easy bleeding, or history of blood clots. ALLERGIC/IMMUNOLOGIC: No hives or skin allergy. Physical Exam Vital Sings: Vital Signs Temperature 98.7 F 05/28/17 10:00 Pulse Rate 88 05/28/17 10:00 Respiratory Rate 18 05/28/17 10:00 Blood Pressure 121/74 05/28/17 10:00 O2 Sat by Pulse Oximetry (%) 92 L 05/28/17 09:00 GENERAL: Well developed, well nourished. Awake and alert. In mild distress. HEENT: Normocephalic, atraumatic. NECK: Supple. Full ROM. No JVD. CARDIOVASCULAR: Tachycardic, S1 S2. No murmurs, rubs, or gallops. PULMONARY: +diffuse b/l wheezing, +cough, +poor air entry ABDOMINAL: Soft. Diffuse tenderness to deep palpation. Non-distended. No rebound or guarding. MUSCULOSKELETAL: Normal range of motion at all joints. No bony deformities or tenderness. EXTREMITIES: No cyanosis. No clubbing. No edema. No calf tenderness. SKIN: Warm and dry. Normal capillary refill. No rashes. No jaundice. NEUROLOGICAL: Alert, awake, appropriate. Cranial nerves 2-12 intact. Normal speech. PSYCHIATRIC: Somewhat cooperative. Good eye contact. Appropriate mood and affect. Labs: CBC, BMP 05/28/17 08:30 05/28/17 08:30 Assessment/Plan 56F with a PMH of C. diff colitis, NIDDM, HTN, anxiety, depression, chronic pain , former IVDA, who presents to the ER with complaints of worsening abdominal pain and diarrhea with cough/sob x 1 month #B/l Pneumonia HCAP w/ COPD exacerbation #C. Diff colitis #Hx of CHF #Hx of Hep C #Hx of DM Plan: -Solumederol 60 mg q6h -Flu Swab -Chest CT -Sputum cx -Duonebs standing/prn -Antibiotics per ID -Oxygen as needed -Nicoderm patch given, smoking cessation discussed with patient -Sleep apnea screen in the future
[2017-05-28] MEDS: NICOTINE 7 MG/24 HOURS TOPICAL PATCH TD SCH (15:38)
--- NOTE | 2017-05-28 16:41 | CONSULT ---
Consult Consult Specialty:: Nephrology Reason for Consultation:: hyponatremia and lactic acidosis - History of Present Illness Chief Complaint: andominal pain and diarrhea History of Present Illness: Pt is a 56 year old female with pmhx of c.diff colitis, DM, anxiety, depression , and chronic pain who presents to the ER with abdominal pain and wheezing. I was called to evaluate her for hyponatremia and for lactic acidosis. She complains of decreased appetite and of abdominal pain. She was also found to have PNA. She feels a little better today. She says the diarrhea is improved. 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 pt thinks she may have had one in the past (L facial droop)), Seizure Cardio/Vascular: Yes: CAD, HTN Pulmonary: Yes: Asthma, COPD Gastrointestinal: Yes: Hiatal Hernia, Other ("colitis" mid-April) Hepatobiliary: Yes: Hepatitis C (from a blood transfusion) Infectious Disease: Yes: MRSA (R thigh abscess 02/26) Psych: Yes: Addictions, Anxiety, Bipolar, Depression Musculoskeletal: Yes: Chronic low back pain Endocrine: Yes: Diabetes Mellitus - Past Surgical History Past Surgical History: Yes: Appendectomy, Cholecystectomy (laparoscopic), Colonoscopy, Hysterectomy (vaginal) - Alcohol/Substance Use Hx Alcohol Use: No History of Substance Use: reports: Cocaine (crack) - Smoking History Smoking history: Never smoked Have you smoked in the past 12 months: No Aproximately how many cigarettes per day: 20 - Social History Usual Living Arrangement: With Spouse Occupation: disabled History of Recent Travel: No Home Medications - Allergies Allergies/Adverse Reactions: Allergies Allergy/AdvReac Type Severity Reaction Status Date / Time No Known Allergies Allergy Verified 05/25/17 12:56 - Home Medications Home Medications: Ambulatory Orders Albuterol Sulfate Inhaler - [Ventolin HFA Inhaler -] 2 inh PO Q4H PRN 11/06/14 Famotidine [Pepcid -] 40 mg PO DAILY 12/21/14 Tiotropium [place] [Spiriva] 18 mcg IH DAILY 12/21/14 Alprazolam [Xanax] 1 mg PO TID 07/13/16 Aspirin Coated [Ecotrin -] 81 mg PO DAILY #30 tab 07/22/16 Diltiazem Cd [Cardizem Cd -] 120 mg PO DAILY #30 cap 07/22/16 Lisinopril [Prinivil] 20 mg PO DAILY #30 tablet 07/22/16 Montelukast Na [Singulair -] 10 mg PO HS #30 tablet 07/22/16 levETIRAcetam [Keppra -] 500 mg PO BID tablet 07/22/16 Ascorbic Acid [Vitamin C -] 500 mg PO BID #60 tablet 02/15/17 Docusate Sodium [Colace -] 300 mg PO HS #30 cap 02/15/17 Insulin (Levemir) [Levemir Flexpen -] 20 units SQ BID #4 pen 02/15/17 Insulin (Novolog) [Novolog Flexpen -] 5 units SQ ACHS #4 pen 02/15/17 Montelukast Na [Singulair -] 10 mg PO HS #30 tablet 02/15/17 Pramipexole Dihydrochloride [Mirapex -] 0.25 mg PO HS #30 tablet 02/15/17 Salmeterol/Fluticasone [Advair 100Mcg/50Mcg -] 1 puff IH BID #1 inhaler Sennosides [Senna -] 2 tab PO HS #60 tablet 02/15/17 Zolpidem Tartrate [Ambien] 10 mg PO HS tablet MDD 1 02/15/17 metFORMIN HCL [Glucophage -] 500 mg PO BID@0700,1630 #60 tablet 02/15/17 Gabapentin [Neurontin -] 300 mg PO QID #120 capsule 05/20/17 Insulin Aspart Prot/Insuln Asp [Novolog Mix 70-30 Flexpen Syrn] 35 unit SQ BID # 1 box 05/20/17 oxyCODONE HCL [Roxicodone -] 5 mg PO Q6H #20 tablet MDD 4 05/20/17 Family Disease History - Family Disease History Family Disease History: Diabetes: Mother, Heart Disease: Father, Brother, Sister , Respiratory: Father, Other: Father, Brother, Sister Review of Systems - Review of Systems Constitutional: reports: Malaise. denies: Chills, Fever Eyes: reports: No Symptoms HENT: reports: No Symptoms Neck: reports: No Symptoms Cardiovascular: reports: Shortness of Breath Respiratory: reports: SOB, SOB on Exertion, Wheezing Gastrointestinal: reports: Abdominal Pain, Diarrhea Genitourinary: reports: No Symptoms Musculoskeletal: reports: No Symptoms Integumentary: reports: No Symptoms Neurological: reports: No Symptoms Endocrine: reports: No Symptoms Hematology/Lymphatic: reports: No Symptoms Psychiatric: reports: No Symptoms Physical Exam Vital Signs: Vital Signs Temperature 100.2 F H 05/28/17 15:10 Pulse Rate 86 05/28/17 15:10 Respiratory Rate 18 05/28/17 15:10 Blood Pressure 104/65 05/28/17 15:10 O2 Sat by Pulse Oximetry (%) 92 L 05/28/17 09:00 Constitutional: Yes: Calm Eyes: Yes: Conjunctiva Clear HENT: Yes: Atraumatic Cardiovascular: Yes: S1, S2 Respiratory: Yes: On Nasal O2, Wheezes Gastrointestinal: Yes: Soft, Abdomen, Obese Renal/: Yes: WNL Extremities: Yes: WNL Edema: LLE: Trace, RLE: Trace Integumentary: Yes: Tattoos Neurological: Yes: Oriented Psychiatric: Yes: Oriented Labs: CBC, BMP 05/28/17 08:30 05/28/17 08:30 Laboratory Tests 05/27/17 05/27/17 05/27/17 09:15 09:15 09:15 WBC 19.8 H D Hgb 15.7 H Sodium 131 L Potassium Chloride 94 L Carbon Dioxide Anion Gap BUN Creatinine Random Glucose 357 H* Lactic Acid 3.6 H* Calcium 05/28/17 05/28/17 05/28/17 08:30 08:30 08:30 WBC 20.8 H Hgb 13.0 D Sodium 136 Potassium 4.4 Chloride 101 Carbon Dioxide 30 Anion Gap 5 L BUN 7 Creatinine 0.6 Random Glucose 177 H Lactic Acid 1.9 Calcium 8.1 L Imaging - Results Chest X-ray: Report Reviewed Cat Scan: Report Reviewed Problem List - Problems (1) ASHD (arteriosclerotic heart disease) Code(s): I25.10 - ATHSCL HEART DISEASE OF [place] CORONARY ARTERY W/O ANG PCTRS (2) Pneumonia Code(s): J18.9 - PNEUMONIA, UNSPECIFIED ORGANISM Qualifiers: Pneumonia type: due to unspecified organism Laterality: bilateral Lung location: lower lobe of lung Qualified Code(s): J18.9 - Pneumonia, unspecified organism (3) CAD (coronary artery disease) Code(s): I25.10 - ATHSCL HEART DISEASE OF [place] CORONARY ARTERY W/O ANG PCTRS (4) COPD (chronic obstructive pulmonary disease) Code(s): J44.9 - CHRONIC OBSTRUCTIVE PULMONARY DISEASE, UNSPECIFIED (5) Hyperglycemia Code(s): R73.9 - HYPERGLYCEMIA, UNSPECIFIED Assessment/Plan Current Medications Generic Name Dose Route Start Last Admin Trade Name Freq PRN Reason Stop Dose Admin Acetaminophen 650 mg 05/27/17 14:59 05/28/17 15:51 Tylenol - PO 650 mg Q6H PRN Administration PAIN Albuterol/Ipratropium 1 amp 05/27/17 14:59 Duoneb - NEB Q6H PRN SHORTNESS OF BREATH Alprazolam 1 mg 05/27/17 14:59 Xanax - PO 05/30/17 14:58 Q8H PRN ANXIETY Aspirin 81 mg 05/28/17 10:00 05/28/17 09:45 Ecotrin - PO 81 mg DAILY ILYA Administration Diltiazem HCl 120 mg 05/28/17 10:00 05/28/17 09:45 Cardizem Cd - PO 120 mg DAILY ILYA Administration Duloxetine HCl 60 mg 05/28/17 11:30 05/28/17 13:59 Cymbalta - PO 60 mg DAILY ILYA Administration Gabapentin 300 mg 05/27/17 22:00 05/28/17 14:01 Neurontin - PO 300 mg TID ILYA Administration Heparin Sodium (Porcine) 5,000 unit 05/27/17 22:00 05/28/17 09:44 Heparin - SQ 5,000 unit BID ILYA Administration Sodium Chloride 1,000 mls @ 100 mls/hr 05/27/17 21:45 05/27/17 22:35 Normal Saline - IV 100 mls/hr ASDIR ILYA Administration Piperacillin Sod/Tazobactam 50 mls @ 100 mls/hr 05/27/17 22:15 05/28/17 09:45 Sod 3.375 gm/ Dextrose IVPB 100 mls/hr Q8H-IV ILYA Administration Insulin Aspart 1 vial 05/27/17 16:30 05/28/17 12:08 Novolog Vial Sliding Scale - SQ 6 units ACHS ILYA Administration Protocol Insulin Detemir 20 units 05/27/17 22:00 05/27/17 21:27 Levemir Vial SQ 20 units HS ILYA Administration Lactobacillus Acidophilus 1 tab 05/28/17 10:00 05/28/17 09:44 Bacid - PO 1 tab DAILY ILYA Administration Levetiracetam 1,000 mg 05/28/17 11:20 Keppra - PO BID ILYA Lisinopril 20 mg 05/28/17 10:00 05/28/17 09:45 Prinivil PO 20 mg DAILY ILYA Administration Montelukast Sodium 10 mg 05/27/17 22:00 05/27/17 21:27 Singulair - PO 10 mg HS ILYA Administration Nicotine 7 mg 05/28/17 15:00 05/28/17 15:38 Nicoderm Patch - TD 7 mg DAILY ILYA Administration Oseltamivir Phosphate 75 mg 05/28/17 11:30 05/28/17 13:59 Tamiflu - PO 06/02/17 11:29 75 mg BID ILYA Administration Oxycodone HCl 10 mg 05/27/17 14:59 05/28/17 09:43 Roxicodone - PO 10 mg Q6H PRN Administration PAIN LEVEL 7 - 10 Pantoprazole Sodium 40 mg 05/28/17 10:00 05/28/17 09:45 Protonix - PO 40 mg DAILY ILYA Administration Zolpidem Tartrate 10 mg 05/27/17 14:59 Ambien - PO HS PRN INSOMNIA Impression 1. lactic acidosis improved 2. hyponatremia likely from hyperglycemia 3. PNA 4. abdominal pain 5. hx IVDA 6. DM 7. sepsis Plan - monitor glucose - cont current meds - cont fluids - cont abx - repeat labs in am - lactic acidosis is improved
[2017-05-28] MEDS ORDERED: PT OWN MED DRAWER 7, Y5N ONE (17:34)
[2017-05-29] MEDS: INSULIN DETEMIR 100 UNITS/ML MDV SQ SCH ×2 (00:03→22:39)
[2017-05-29] MEDS: levETIRAcetam 500 MG TABLET (FP) PO SCH ×3 (00:03→22:39)
[2017-05-29] MEDS: GABAPENTIN 300 MG CAPSULE (FP) PO SCH ×4 (00:03→22:39)
[2017-05-29] MEDS: OSELTAMIVIR PHOSPHATE 75 MG CAPSULE PO SCH ×3 (00:03→22:42)
[2017-05-29] MEDS: MONTELUKAST NA 10 MG TABLET PO SCH ×2 (00:03→22:39)
[2017-05-29] MEDS: HEPARIN NA (PORCINE) 5,000 UNITS/ML 1ML VIAL SQ SCH ×3 (00:04→22:43)
[2017-05-29] MEDS: INSULIN SLIDING SCALE (NOVOLOG) 1 VIAL SQ SCH ×5 (00:04→22:40)
[2017-05-29] MEDS: SODIUM CHLORIDE 1,000 ML IV SCH ×2 (00:05→16:30)
[2017-05-29] MEDS ORDERED: PT OWN MED DRAWER 7, Y5N ONE ×2 (02:12→22:42)
[2017-05-29] MEDS: PIPERACILLIN/TAZOB 3.375 GM 3.375 GM in DEXTROSE 5%-WATER - 50 ML IVPB SCH ×3 (02:19→17:59)
[2017-05-29 05:43] LABS: URINE CREATININE 45.5 mg/dL (20-320)
[2017-05-29 05:44] LABS: RATIO URIN PROTEIN/URIN CREAT 1.7 MG/DL
[2017-05-29 07:59] LABS: ANION GAP 6 (8-16); BLOOD UREA NITROGEN 5 mg/dL (7-18); CALCIUM 8.7 mg/dL (8.5-10.1); CHLORIDE 98 mmol/L (98-107); CO2 32 mmol/L (21-32); GLUCOSE,RANDOM 163 mg/dL (74-106); POTASSIUM 4.1 mmol/L (3.5-5.1); SODIUM 136 mmol/L (136-145)
[2017-05-29 08:02] LABS: CREATININE 0.4 mg/dL (0.55-1.02)
[2017-05-29] MEDS: DULoxetine HCL 30 MG CAPSULE.DR (FP) PO SCH (10:08)
[2017-05-29] MEDS: LACTOBACILLUS ACIDOPHILUS 1 EACH TAB (FP) PO SCH (10:08)
[2017-05-29] MEDS: ASPIRIN COATED 81 MG TABLET.EC PO SCH (10:09)
[2017-05-29] MEDS: PANTOPRAZOLE 40 MG TABLET (FP) PO SCH (10:10)
[2017-05-29] MEDS: LISINOPRIL 20 MG TABLET (FP) PO SCH (10:10)
[2017-05-29] MEDS: NICOTINE 7 MG/24 HOURS TOPICAL PATCH TD SCH (10:10)
[2017-05-29] MEDS: ACETAMINOPHEN 325 MG TABLET (FP) PO PRN (10:22)
[2017-05-29] MEDS: oxyCODONE HCL 5 MG TABLET PO PRN ×2 (10:24→22:52)
[2017-05-29 11:08] LABS: BASO % 0.8 % (0-2.0); EOS % 1.7 % (0-4.5); HEMATOCRIT 41.5 % (32.4-45.2); HEMOGLOBIN 13.4 GM/dL (10.7-15.3); MCH 29.7 pg (25.7-33.7); MCHC 32.2 g/dl (32.0-36.0); MEAN CELL VOLUME 92.1 fl (80-96); MEAN PLT VOLUME 9.4 fl (7.5-11.1); MONO % 8.1 % (3.8-10.2); NEUT % 72.4 % (42.8-82.8); PLATELET COUNT 349 K/MM3 (134-434); RBC 4.51 M/mm3 (3.60-5.2); RDW 13.6 % (11.6-15.6); WHITE BLOOD COUNT 12.5 K/mm3 (4.0-10.0)
--- NOTE | 2017-05-29 11:13 | PN ---
Progress Note, Physician History of Present Illness: Pt alert/ currently afebrile, Tmax 100F. c/o generalized abd pain, 1 loose BM today, no vomiting. + cough. - Current Medication List Current Medications: Active Medications Acetaminophen (Tylenol -) 650 mg PO Q6H PRN PRN Reason: PAIN Last Admin: 05/29/17 10:22 Dose: 650 mg Albuterol/Ipratropium (Duoneb -) 1 amp NEB Q6H PRN PRN Reason: SHORTNESS OF BREATH Alprazolam (Xanax -) 1 mg PO Q8H PRN PRN Reason: ANXIETY Stop: 05/30/17 14:58 Aspirin (Ecotrin -) 81 mg PO DAILY [facility] Last Admin: 05/29/17 10:09 Dose: 81 mg Diltiazem HCl (Cardizem Cd -) 120 mg PO DAILY [facility] Last Admin: 05/29/17 10:08 Dose: 120 mg Duloxetine HCl (Cymbalta -) 60 mg PO DAILY [facility] Last Admin: 05/29/17 10:08 Dose: 60 mg Gabapentin (Neurontin -) 300 mg PO TID [facility] Last Admin: 05/29/17 06:38 Dose: 300 mg Heparin Sodium (Porcine) (Heparin -) 5,000 unit SQ BID [facility] Last Admin: 05/29/17 10:09 Dose: 5,000 unit Sodium Chloride (Normal Saline -) 1,000 mls @ 100 mls/hr IV ASDIR [facility] Last Admin: 05/29/17 00:05 Dose: 100 mls/hr Piperacillin Sod/Tazobactam (Sod 3.375 gm/ Dextrose) 50 mls @ 100 mls/hr IVPB Q8H-IV [facility] Last Admin: 05/29/17 10:10 Dose: 100 mls/hr Insulin Aspart (Novolog Vial Sliding Scale -) 1 vial SQ ACHS ILYA PRN Reason: Protocol Last Admin: 05/29/17 06:40 Dose: 6 units Insulin Detemir (Levemir Vial) 20 units SQ HS [facility] Last Admin: 05/29/17 00:03 Dose: 20 units Lactobacillus Acidophilus (Bacid -) 1 tab PO DAILY [facility] Last Admin: 05/29/17 10:08 Dose: 1 tab Levetiracetam (Keppra -) 1,000 mg PO BID [facility] Last Admin: 05/29/17 10:09 Dose: 1,000 mg Lisinopril (Prinivil) 20 mg PO DAILY [facility] Last Admin: 05/29/17 10:10 Dose: 20 mg Montelukast Sodium (Singulair -) 10 mg PO HS [facility] Last Admin: 05/29/17 00:03 Dose: 10 mg Nicotine (Nicoderm Patch -) 7 mg TD DAILY [facility] Last Admin: 05/29/17 10:10 Dose: 7 mg Oseltamivir Phosphate (Tamiflu -) 75 mg PO BID [facility] Stop: 06/02/17 11:29 Last Admin: 05/29/17 10:10 Dose: 75 mg Oxycodone HCl (Roxicodone -) 10 mg PO Q6H PRN PRN Reason: PAIN LEVEL 7 - 10 Last Admin: 05/29/17 10:24 Dose: 10 mg Pantoprazole Sodium (Protonix -) 40 mg PO DAILY [facility] Last Admin: 05/29/17 10:10 Dose: 40 mg Zolpidem Tartrate (Ambien -) 10 mg PO HS PRN PRN Reason: INSOMNIA Last Admin: 05/29/17 00:07 Dose: 10 mg - Objective Vital Signs: Vital Signs Temperature 98.8 F 05/29/17 09:58 Pulse Rate 69 05/29/17 09:58 Respiratory Rate 19 05/29/17 09:58 Blood Pressure 116/70 05/29/17 09:58 O2 Sat by Pulse Oximetry (%) 94 L 05/28/17 21:00 Constitutional: Yes: No Distress Cardiovascular: Yes: Regular Rate and Rhythm Respiratory: Yes: Rhonchi (b/l) Gastrointestinal: Yes: Normal Bowel Sounds, Soft, Tenderness (generalized) ...Rectal Exam: Yes: Deferred Genitourinary: Yes: WNL Musculoskeletal: Yes: WNL Integumentary: Yes: WNL Neurological: Yes: Alert Labs: CBC, BMP 05/29/17 06:00 INR, PTT INR 1.00 (0.82-1.09) 05/27/17 09:15 stool CDT, culture, O+P results pending - ....Imaging X-ray: Report Reviewed Cat Scan: Report Reviewed (Abd CT - no evidence of diverticulitis or bowel wall thickening) Problem List - Problems (1) Pneumonia Code(s): J18.9 - PNEUMONIA, UNSPECIFIED ORGANISM Qualifiers: Pneumonia type: due to unspecified organism Laterality: bilateral Lung location: lower lobe of lung Qualified Code(s): J18.9 - Pneumonia, unspecified organism (2) Abdominal pain Code(s): R10.9 - UNSPECIFIED ABDOMINAL PAIN Qualifiers: (3) CAD (coronary artery disease) Code(s): I25.10 - ATHSCL HEART DISEASE OF [place] CORONARY ARTERY W/O ANG PCTRS (4) COPD (chronic obstructive pulmonary disease) Code(s): J44.9 - CHRONIC OBSTRUCTIVE PULMONARY DISEASE, UNSPECIFIED (5) Diarrhea Code(s): R19.7 - [place], UNSPECIFIED Qualifiers: Diarrhea type: infectious Qualified Code(s): A09 - Infectious gastroenteritis and colitis, unspecified (6) Type 2 diabetes mellitus with diabetic neuropathy, unspecified Code(s): E11.40 - TYPE 2 DIABETES MELLITUS WITH DIABETIC NEUROPATHY, UNSP (7) Bipolar II disorder Code(s): F31.81 - BIPOLAR II DISORDER (8) Hepatitis C Code(s): B19.20 - UNSPECIFIED VIRAL HEPATITIS C WITHOUT HEPATIC COMA Qualifiers: Viral hepatitis chronicity: unspecified Hepatic coma status: without hepatic coma Qualified Code(s): B19.20 - Unspecified viral hepatitis C without hepatic coma (9) Hypertension Code(s): I10 - ESSENTIAL (PRIMARY) HYPERTENSION Assessment/Plan Leukocytosis Hx of C. diff colitis Hx of Rt thigh MRSA abscess HCAP -- continue Zosyn empirically for now -- cbc ordered for today -- f/u stool studies results -- sputum culture -- continue monitor vitals
--- NOTE | 2017-05-29 11:13 | PN ---
Progress Note, Physician - Current Medication List Current Medications: Active Medications Acetaminophen (Tylenol -) 650 mg PO Q6H PRN PRN Reason: PAIN Last Admin: 05/29/17 10:22 Dose: 650 mg Albuterol/Ipratropium (Duoneb -) 1 amp NEB Q6H PRN PRN Reason: SHORTNESS OF BREATH Alprazolam (Xanax -) 1 mg PO Q8H PRN PRN Reason: ANXIETY Stop: 05/30/17 14:58 Aspirin (Ecotrin -) 81 mg PO DAILY [facility] Last Admin: 05/29/17 10:09 Dose: 81 mg Diltiazem HCl (Cardizem Cd -) 120 mg PO DAILY [facility] Last Admin: 05/29/17 10:08 Dose: 120 mg Duloxetine HCl (Cymbalta -) 60 mg PO DAILY [facility] Last Admin: 05/29/17 10:08 Dose: 60 mg Gabapentin (Neurontin -) 300 mg PO TID [facility] Last Admin: 05/29/17 06:38 Dose: 300 mg Heparin Sodium (Porcine) (Heparin -) 5,000 unit SQ BID [facility] Last Admin: 05/29/17 10:09 Dose: 5,000 unit Sodium Chloride (Normal Saline -) 1,000 mls @ 100 mls/hr IV ASDIR [facility] Last Admin: 05/29/17 00:05 Dose: 100 mls/hr Piperacillin Sod/Tazobactam (Sod 3.375 gm/ Dextrose) 50 mls @ 100 mls/hr IVPB Q8H-IV [facility] Last Admin: 05/29/17 10:10 Dose: 100 mls/hr Insulin Aspart (Novolog Vial Sliding Scale -) 1 vial SQ ACHS [facility] PRN Reason: Protocol Last Admin: 05/29/17 06:40 Dose: 6 units Insulin Detemir (Levemir Vial) 20 units SQ HS [facility] Last Admin: 05/29/17 00:03 Dose: 20 units Lactobacillus Acidophilus (Bacid -) 1 tab PO DAILY [facility] Last Admin: 05/29/17 10:08 Dose: 1 tab Levetiracetam (Keppra -) 1,000 mg PO BID [facility] Last Admin: 05/29/17 10:09 Dose: 1,000 mg Lisinopril (Prinivil) 20 mg PO DAILY [facility] Last Admin: 05/29/17 10:10 Dose: 20 mg Montelukast Sodium (Singulair -) 10 mg PO HS [facility] Last Admin: 05/29/17 00:03 Dose: 10 mg Nicotine (Nicoderm Patch -) 7 mg TD DAILY [facility] Last Admin: 05/29/17 10:10 Dose: 7 mg Oseltamivir Phosphate (Tamiflu -) 75 mg PO BID [facility] Stop: 06/02/17 11:29 Last Admin: 05/29/17 10:10 Dose: 75 mg Oxycodone HCl (Roxicodone -) 10 mg PO Q6H PRN PRN Reason: PAIN LEVEL 7 - 10 Last Admin: 05/29/17 10:24 Dose: 10 mg Pantoprazole Sodium (Protonix -) 40 mg PO DAILY [facility] Last Admin: 05/29/17 10:10 Dose: 40 mg Zolpidem Tartrate (Ambien -) 10 mg PO HS PRN PRN Reason: INSOMNIA Last Admin: 05/29/17 00:07 Dose: 10 mg - Objective Vital Signs: Vital Signs Temperature 98.8 F 05/29/17 09:58 Pulse Rate 69 05/29/17 09:58 Respiratory Rate 19 05/29/17 09:58 Blood Pressure 116/70 05/29/17 09:58 O2 Sat by Pulse Oximetry (%) 94 L 05/28/17 21:00 Cardiovascular: Yes: S1, S2 Respiratory: Yes: Diminished, On Nasal O2, Rhonchi Gastrointestinal: Yes: Normal Bowel Sounds, Soft, Tenderness, Epigastrium Edema: No Labs: CBC, BMP 05/29/17 06:00 INR, PTT INR 1.00 (0.82-1.09) 05/27/17 09:15 Problem List - Problems (1) Pneumonia Assessment/Plan: --IV ABX --NEBS --ON TAMIFLU --ID ON CASE Code(s): J18.9 - PNEUMONIA, UNSPECIFIED ORGANISM Qualifiers: Pneumonia type: due to unspecified organism Laterality: bilateral Lung location: lower lobe of lung Qualified Code(s): J18.9 - Pneumonia, unspecified organism (2) Abdominal pain Assessment/Plan: -CT OF ABDOMINAL --MONITOR --GI CONSULT --PI Code(s): R10.9 - UNSPECIFIED ABDOMINAL PAIN Qualifiers: (3) COPD (chronic obstructive pulmonary disease) Assessment/Plan: NEBS IV STEROIDS Code(s): J44.9 - CHRONIC OBSTRUCTIVE PULMONARY DISEASE, UNSPECIFIED (4) Type 2 diabetes mellitus with diabetic neuropathy, unspecified Assessment/Plan: MEDS BGM Code(s): E11.40 - TYPE 2 DIABETES MELLITUS WITH DIABETIC NEUROPATHY, UNSP
[2017-05-29] MEDS: ALBUTEROL SO4 2.5/IPRATROPIUM 0.5 INH SOL 3 ML VIAL.NEB. NEB SCH ×3 (11:51→20:15)
--- NOTE | 2017-05-29 13:26 | PN ---
Progress Note (short form) - Note Progress Note: Still with congested cough. No CP. Low grade temps. Intake & Output 05/26/17 05/27/17 05/28/17 05/29/17 23:59 23:59 23:59 23:59 Intake Total 1909 2199 Balance 1909 2199 Weight 205 lb 210 lb 3.2 oz 207 lb 6 oz Last Vital Signs Temp Pulse Resp BP Pulse Ox 98.8 F 69 19 116/70 94 L 05/29/17 09:58 05/29/17 09:58 05/29/17 09:58 05/29/17 09:58 05/29/17 09:00 Active Medications Acetaminophen (Tylenol -) 650 mg PO Q6H PRN PRN Reason: PAIN Last Admin: 05/29/17 10:22 Dose: 650 mg Albuterol/Ipratropium (Duoneb -) 1 amp NEB RQID [facility] Last Admin: 05/29/17 11:51 Dose: 1 amp Alprazolam (Xanax -) 1 mg PO Q8H PRN PRN Reason: ANXIETY Stop: 05/30/17 14:58 Aspirin (Ecotrin -) 81 mg PO DAILY [facility] Last Admin: 05/29/17 10:09 Dose: 81 mg Diltiazem HCl (Cardizem Cd -) 120 mg PO DAILY [facility] Last Admin: 05/29/17 10:08 Dose: 120 mg Duloxetine HCl (Cymbalta -) 60 mg PO DAILY [facility] Last Admin: 05/29/17 10:08 Dose: 60 mg Gabapentin (Neurontin -) 300 mg PO TID [facility] Last Admin: 05/29/17 06:38 Dose: 300 mg Heparin Sodium (Porcine) (Heparin -) 5,000 unit SQ BID [facility] Last Admin: 05/29/17 10:09 Dose: 5,000 unit Sodium Chloride (Normal Saline -) 1,000 mls @ 100 mls/hr IV ASDIR [facility] Last Admin: 05/29/17 00:05 Dose: 100 mls/hr Piperacillin Sod/Tazobactam (Sod 3.375 gm/ Dextrose) 50 mls @ 100 mls/hr IVPB Q8H-IV [facility] Last Admin: 05/29/17 10:10 Dose: 100 mls/hr Insulin Aspart (Novolog Vial Sliding Scale -) 1 vial SQ ACHS [facility] PRN Reason: Protocol Last Admin: 05/29/17 11:40 Dose: Not Given Insulin Detemir (Levemir Vial) 20 units SQ HS [facility] Last Admin: 05/29/17 00:03 Dose: 20 units Lactobacillus Acidophilus (Bacid -) 1 tab PO DAILY [facility] Last Admin: 05/29/17 10:08 Dose: 1 tab Levetiracetam (Keppra -) 1,000 mg PO BID [facility] Last Admin: 05/29/17 10:09 Dose: 1,000 mg Lisinopril (Prinivil) 20 mg PO DAILY [facility] Last Admin: 05/29/17 10:10 Dose: 20 mg Methylprednisolone Sodium Succinate (Solu-Medrol -) 40 mg IVPUSH Q6H-IV [facility] Montelukast Sodium (Singulair -) 10 mg PO HS [facility] Last Admin: 05/29/17 00:03 Dose: 10 mg Nicotine (Nicoderm Patch -) 7 mg TD DAILY [facility] Last Admin: 05/29/17 10:10 Dose: 7 mg Oseltamivir Phosphate (Tamiflu -) 75 mg PO BID [facility] Stop: 06/02/17 11:29 Last Admin: 05/29/17 10:10 Dose: 75 mg Oxycodone HCl (Roxicodone -) 10 mg PO Q6H PRN PRN Reason: PAIN LEVEL 7 - 10 Last Admin: 05/29/17 10:24 Dose: 10 mg Pantoprazole Sodium (Protonix Iv) 40 mg IVPUSH BID [facility] Zolpidem Tartrate (Ambien -) 10 mg PO HS PRN PRN Reason: INSOMNIA Last Admin: 05/29/17 00:07 Dose: 10 mg GENERAL: Awake and alert, mildly tachypneic at rest HEENT: Normocephalic, atraumatic. NECK: Supple. Full ROM. No JVD. CARDIOVASCULAR: Tachycardic, S1 S2. No murmurs, rubs, or gallops. PULMONARY: Bilateral expiratory wheezing and rhonchi, (+) cough ABDOMINAL: Soft. Diffuse tenderness to deep palpation. Non-distended. No rebound or guarding. MUSCULOSKELETAL: Normal range of motion at all joints. No bony deformities or tenderness. EXTREMITIES: No cyanosis. No clubbing. No edema. No calf tenderness. SKIN: Warm and dry. Normal capillary refill. No rashes. No jaundice. NEUROLOGICAL: Non-focal Labs: Laboratory Results - last 24 hr 05/27/17 05/28/17 05/28/17 17:30 17:45 20:36 WBC RBC Hgb Hct MCV MCH MCHC RDW Plt Count MPV Neutrophils % Lymphocytes % Monocytes % Eosinophils % Basophils % Sodium Potassium Chloride Carbon Dioxide Anion Gap BUN Creatinine POC Glucometer 424 145 199 Random Glucose Calcium U Random Total Protein Urine Creatinine Protein/Creatinin Ratio 05/28/17 05/29/17 05/29/17 20:59 06:00 06:39 WBC RBC Hgb Hct MCV MCH MCHC RDW Plt Count MPV Neutrophils % Lymphocytes % Monocytes % Eosinophils % Basophils % Sodium 136 Potassium 4.1 Chloride 98 Carbon Dioxide 32 Anion Gap 6 L BUN 5 L Creatinine 0.4 L POC Glucometer 202 Random Glucose 163 H Calcium 8.7 U Random Total Protein 77 H Urine Creatinine 45.5 Protein/Creatinin Ratio 1.7 05/29/17 05/29/17 11:00 11:38 WBC 12.5 H D RBC 4.51 Hgb 13.4 Hct 41.5 MCV 92.1 MCH 29.7 MCHC 32.2 RDW 13.6 Plt Count 349 MPV 9.4 Neutrophils % 72.4 Lymphocytes % 17.0 D Monocytes % 8.1 Eosinophils % 1.7 D Basophils % 0.8 Sodium Potassium Chloride Carbon Dioxide Anion Gap BUN Creatinine POC Glucometer 138 Random Glucose Calcium U Random Total Protein Urine Creatinine Protein/Creatinin Ratio Assessment/Plan 56F with a PMH of C. diff colitis, NIDDM, HTN, anxiety, depression, chronic pain , former IVDA, who presents to the ER with complaints of worsening abdominal pain and diarrhea with cough/sob x 1 month #B/l Pneumonia HCAP w/ COPD exacerbation #C. Diff colitis #Hx of CHF #Hx of Hep C #Hx of DM Plan: -Solumederol 60 mg q6h -Tamiflu -Sputum cx -Duonebs standing/prn -Antibiotics per ID -Oxygen as needed -Nicoderm patch given, smoking cessation discussed with patient -Sleep apnea screen in the future -CT chest followup as an outpatient for non-specific nodules (active smoker) Dr Cheng
[2017-05-29] MEDS: methylPREDNISolone NA SUCC 40 MG/1 ML VIAL IVPUSH SCH ×3 (13:32→22:43)
[2017-05-29] MEDS: PANTOPRAZOLE SODIUM 40 MG VIAL IVPUSH SCH ×2 (13:32→22:40)
--- NOTE | 2017-05-29 16:14 | PN ---
Progress Note, Physician History of Present Illness: Pt seen and examined at bedside. She denies chest pain. She denies dysuria. - Current Medication List Current Medications: Active Medications Acetaminophen (Tylenol -) 650 mg PO Q6H PRN PRN Reason: PAIN Last Admin: 05/29/17 10:22 Dose: 650 mg Albuterol/Ipratropium (Duoneb -) 1 amp NEB RQID [facility] Last Admin: 05/29/17 11:51 Dose: 1 amp Alprazolam (Xanax -) 1 mg PO Q8H PRN PRN Reason: ANXIETY Stop: 05/30/17 14:58 Aspirin (Ecotrin -) 81 mg PO DAILY [facility] Last Admin: 05/29/17 10:09 Dose: 81 mg Diltiazem HCl (Cardizem Cd -) 120 mg PO DAILY [facility] Last Admin: 05/29/17 10:08 Dose: 120 mg Duloxetine HCl (Cymbalta -) 60 mg PO DAILY [facility] Last Admin: 05/29/17 10:08 Dose: 60 mg Gabapentin (Neurontin -) 300 mg PO TID [facility] Last Admin: 05/29/17 13:32 Dose: 300 mg Heparin Sodium (Porcine) (Heparin -) 5,000 unit SQ BID [facility] Last Admin: 05/29/17 10:09 Dose: 5,000 unit Sodium Chloride (Normal Saline -) 1,000 mls @ 100 mls/hr IV ASDIR [facility] Last Admin: 05/29/17 00:05 Dose: 100 mls/hr Piperacillin Sod/Tazobactam (Sod 3.375 gm/ Dextrose) 50 mls @ 100 mls/hr IVPB Q8H-IV [facility] Last Admin: 05/29/17 10:10 Dose: 100 mls/hr Insulin Aspart (Novolog Vial Sliding Scale -) 1 vial SQ ACHS [facility] PRN Reason: Protocol Last Admin: 05/29/17 11:40 Dose: Not Given Insulin Detemir (Levemir Vial) 20 units SQ HS [facility] Last Admin: 05/29/17 00:03 Dose: 20 units Lactobacillus Acidophilus (Bacid -) 1 tab PO DAILY [facility] Last Admin: 05/29/17 10:08 Dose: 1 tab Levetiracetam (Keppra -) 1,000 mg PO BID [facility] Last Admin: 05/29/17 10:09 Dose: 1,000 mg Lisinopril (Prinivil) 20 mg PO DAILY [facility] Last Admin: 05/29/17 10:10 Dose: 20 mg Methylprednisolone Sodium Succinate (Solu-Medrol -) 40 mg IVPUSH Q6H-IV [facility] Last Admin: 05/29/17 13:32 Dose: 40 mg Montelukast Sodium (Singulair -) 10 mg PO HS [facility] Last Admin: 05/29/17 00:03 Dose: 10 mg Nicotine (Nicoderm Patch -) 7 mg TD DAILY [facility] Last Admin: 05/29/17 10:10 Dose: 7 mg Oseltamivir Phosphate (Tamiflu -) 75 mg PO BID [facility] Stop: 06/02/17 11:29 Last Admin: 05/29/17 10:10 Dose: 75 mg Oxycodone HCl (Roxicodone -) 10 mg PO Q6H PRN PRN Reason: PAIN LEVEL 7 - 10 Last Admin: 05/29/17 10:24 Dose: 10 mg Pantoprazole Sodium (Protonix Iv) 40 mg IVPUSH BID [facility] Last Admin: 05/29/17 13:32 Dose: 40 mg Zolpidem Tartrate (Ambien -) 10 mg PO HS PRN PRN Reason: INSOMNIA Last Admin: 05/29/17 00:07 Dose: 10 mg - Objective Vital Signs: Vital Signs Temperature 97.9 F 05/29/17 14:49 Pulse Rate 90 05/29/17 14:49 Respiratory Rate 19 05/29/17 14:49 Blood Pressure 106/73 05/29/17 14:49 O2 Sat by Pulse Oximetry (%) 94 L 05/29/17 09:00 Constitutional: Yes: Calm Eyes: Yes: Conjunctiva Clear HENT: Yes: Atraumatic Cardiovascular: Yes: S1, S2 Respiratory: Yes: CTA Bilaterally Gastrointestinal: Yes: Soft, Abdomen, Obese Genitourinary: Yes: WNL Musculoskeletal: Yes: WNL Edema: Yes Edema: LLE: Trace, RLE: Trace Integumentary: Yes: Tattoos Neurological: Yes: Oriented Psychiatric: Yes: Oriented Labs: CBC, BMP 05/29/17 11:00 05/29/17 06:00 INR, PTT INR 1.00 (0.82-1.09) 05/27/17 09:15 Problem List - Problems (1) ASHD (arteriosclerotic heart disease) Code(s): I25.10 - ATHSCL HEART DISEASE OF [place] CORONARY ARTERY W/O ANG PCTRS (2) Pneumonia Code(s): J18.9 - PNEUMONIA, UNSPECIFIED ORGANISM Qualifiers: Pneumonia type: due to unspecified organism Laterality: bilateral Lung location: lower lobe of lung Qualified Code(s): J18.9 - Pneumonia, unspecified organism (3) CAD (coronary artery disease) Code(s): I25.10 - ATHSCL HEART DISEASE OF [place] CORONARY ARTERY W/O ANG PCTRS (4) COPD (chronic obstructive pulmonary disease) Code(s): J44.9 - CHRONIC OBSTRUCTIVE PULMONARY DISEASE, UNSPECIFIED (5) Hyperglycemia Code(s): R73.9 - HYPERGLYCEMIA, UNSPECIFIED Assessment/Plan Current Medications Generic Name Dose Route Start Last Admin Trade Name Freq PRN Reason Stop Dose Admin Acetaminophen 650 mg 05/27/17 14:59 05/29/17 10:22 Tylenol - PO 650 mg Q6H PRN Administration PAIN Albuterol/Ipratropium 1 amp 05/29/17 12:00 05/29/17 11:51 Duoneb - NEB 1 amp RQID IL[facility] Administration Alprazolam 1 mg 05/27/17 14:59 Xanax - PO 05/30/17 14:58 Q8H PRN ANXIETY Aspirin 81 mg 05/28/17 10:00 05/29/17 10:09 Ecotrin - PO 81 mg DAILY [facility] Administration Diltiazem HCl 120 mg 05/28/17 10:00 05/29/17 10:08 Cardizem Cd - PO 120 mg DAILY [facility] Administration Duloxetine HCl 60 mg 05/28/17 11:30 05/29/17 10:08 Cymbalta - PO 60 mg DAILY [facility] Administration Gabapentin 300 mg 05/27/17 22:00 05/29/17 13:32 Neurontin - PO 300 mg TID [facility] Administration Heparin Sodium (Porcine) 5,000 unit 05/27/17 22:00 05/29/17 10:09 Heparin - SQ 5,000 unit BID [facility] Administration Sodium Chloride 1,000 mls @ 100 mls/hr 05/27/17 21:45 05/29/17 00:05 Normal Saline - IV 100 mls/hr ASDIR [facility]YA Administration Piperacillin Sod/Tazobactam 50 mls @ 100 mls/hr 05/27/17 22:15 05/29/17 10:10 Sod 3.375 gm/ Dextrose IVPB 100 mls/hr Q8H-IV [facility] Administration Insulin Aspart 1 vial 05/27/17 16:30 05/29/17 11:40 Novolog Vial Sliding Scale - SQ Not Given ACHS [facility] Protocol Insulin Detemir 20 units 05/27/17 22:00 05/29/17 00:03 Levemir Vial SQ 20 units HS [facility] Administration Lactobacillus Acidophilus 1 tab 05/28/17 10:00 05/29/17 10:08 Bacid - PO 1 tab DAILY [facility] Administration Levetiracetam 1,000 mg 05/28/17 11:20 05/29/17 10:09 Keppra - PO 1,000 mg BID [facility] Administration Lisinopril 20 mg 05/28/17 10:00 05/29/17 10:10 Prinivil PO 20 mg DAILY [facility] Administration Methylprednisolone Sodium Succinate 40 mg 05/29/17 11:15 05/29/17 13:32 Solu-Medrol - IVPUSH 40 mg Q6H-IV [facility] Administration Montelukast Sodium 10 mg 05/27/17 22:00 05/29/17 00:03 Singulair - PO 10 mg HS [facility] Administration Nicotine 7 mg 05/28/17 15:00 05/29/17 10:10 Nicoderm Patch - TD 7 mg DAILY [facility] Administration Oseltamivir Phosphate 75 mg 05/28/17 11:30 05/29/17 10:10 Tamiflu - PO 06/02/17 11:29 75 mg BID [facility] Administration Oxycodone HCl 10 mg 05/27/17 14:59 05/29/17 10:24 Roxicodone - PO 10 mg Q6H PRN Administration PAIN LEVEL 7 - 10 Pantoprazole Sodium 40 mg 05/29/17 11:30 05/29/17 13:32 Protonix Iv IVPUSH 40 mg BID [facility] Administration Zolpidem Tartrate 10 mg 05/27/17 14:59 05/29/17 00:07 Ambien - PO 10 mg HS PRN Administration INSOMNIA Impression 1. lactic acidosis improved 2. hyponatremia likely from hyperglycemia 3. PNA 4. abdominal pain 5. hx IVDA 6. DM 7. sepsis Plan - repeat ua - renal function stable - decrease rate of fluids - follow ct results - will follow PRN
[2017-05-29] MEDS ORDERED: INSULIN (NOVOLOG) ASPART 100 UNITS/ML 10ML VIAL ONE (17:11)
[2017-05-30] MEDS ORDERED: PT OWN MED DRAWER 7, Y5N ONE ×2 (02:30→22:38)
[2017-05-30] MEDS: PIPERACILLIN/TAZOB 3.375 GM 3.375 GM in DEXTROSE 5%-WATER - 50 ML IVPB SCH ×3 (02:32→17:51)
[2017-05-30] MEDS: methylPREDNISolone NA SUCC 40 MG/1 ML VIAL IVPUSH SCH ×4 (03:04→18:53)
[2017-05-30] MEDS: GABAPENTIN 300 MG CAPSULE (FP) PO SCH ×3 (05:50→22:46)
[2017-05-30] MEDS: INSULIN SLIDING SCALE (NOVOLOG) 1 VIAL SQ SCH ×4 (06:06→22:46)
[2017-05-30] MEDS: ALBUTEROL SO4 2.5/IPRATROPIUM 0.5 INH SOL 3 ML VIAL.NEB. NEB SCH ×4 (07:33→20:05)
[2017-05-30] MEDS: oxyCODONE HCL 5 MG TABLET PO PRN ×2 (08:05→17:57)
[2017-05-30] MEDS: ACETAMINOPHEN 325 MG TABLET (FP) PO PRN ×2 (08:06→17:56)
[2017-05-30] MEDS: LACTOBACILLUS ACIDOPHILUS 1 EACH TAB (FP) PO SCH (09:15)
[2017-05-30] MEDS: HEPARIN NA (PORCINE) 5,000 UNITS/ML 1ML VIAL SQ SCH ×2 (09:15→22:46)
[2017-05-30] MEDS: LISINOPRIL 20 MG TABLET (FP) PO SCH (09:15)
[2017-05-30] MEDS: levETIRAcetam 500 MG TABLET (FP) PO SCH ×2 (09:15→22:45)
[2017-05-30] MEDS: DULoxetine HCL 30 MG CAPSULE.DR (FP) PO SCH (09:15)
[2017-05-30] MEDS: PANTOPRAZOLE SODIUM 40 MG VIAL IVPUSH SCH ×2 (09:15→22:49)
[2017-05-30] MEDS: NICOTINE 7 MG/24 HOURS TOPICAL PATCH TD SCH (09:16)
[2017-05-30] MEDS: OSELTAMIVIR PHOSPHATE 75 MG CAPSULE PO SCH ×2 (09:16→22:45)
[2017-05-30] MEDS: ASPIRIN COATED 81 MG TABLET.EC PO SCH (09:16)
--- NOTE | 2017-05-30 10:41 | PN ---
GI Progress Note Subjective: patient seen yesterday ruq pain resolved, now complains of diffuse abdominal pain associated with abdominal bloating - Objective Vital Signs: Vital Signs Temperature 98.1 F 05/30/17 09:17 Pulse Rate 85 05/30/17 09:17 Respiratory Rate 20 05/30/17 09:17 Blood Pressure 138/66 05/30/17 09:17 O2 Sat by Pulse Oximetry (%) 94 L 05/29/17 21:00 Constitutional: Obese Eyes: Yes: Conjunctiva Clear HENT: Yes: Atraumatic Neck: Yes: Supple Cardiovascular: Yes: Regular Rate and Rhythm Respiratory: Yes: CTA Bilaterally ...Palpate: Yes: Soft, Tenderness (diffuse). No: Firm/Rigid, Guarding, Hepatomegaly, Mass, Pulsatile Mass, Splenomegaly, Tenderness, Rebound Labs: CBC, BMP 05/29/17 11:00 05/29/17 06:00 INR, PTT INR 1.00 (0.82-1.09) 05/27/17 09:15 Problem List - Problems (1) IBS (irritable bowel syndrome) Assessment/Plan: with constipation suspect small bowel bacterial overgrowth, pancreatic insufficiency R> Creon 36,000 with meal s for 2 weeks Relistor then shift to [facility] as an outpatient flagyl for 2 weeks Code(s): K58.9 - IRRITABLE BOWEL SYNDROME WITHOUT DIARRHEA
--- NOTE | 2017-05-30 11:20 | PN ---
Progress Note, Physician History of Present Illness: c/o abd pain gi consult noted and appreciated - Current Medication List Current Medications: Active Medications Acetaminophen (Tylenol -) 650 mg PO Q6H PRN PRN Reason: PAIN Last Admin: 05/30/17 08:06 Dose: 650 mg Albuterol/Ipratropium (Duoneb -) 1 amp NEB RQID [facility] Last Admin: 05/30/17 07:33 Dose: 1 amp Alprazolam (Xanax -) 1 mg PO Q8H PRN PRN Reason: ANXIETY Stop: 05/30/17 14:58 Aspirin (Ecotrin -) 81 mg PO DAILY [facility] Last Admin: 05/30/17 09:16 Dose: 81 mg Diltiazem HCl (Cardizem Cd -) 120 mg PO DAILY [facility] Last Admin: 05/30/17 09:15 Dose: 120 mg Duloxetine HCl (Cymbalta -) 60 mg PO DAILY [facility] Last Admin: 05/30/17 09:15 Dose: 60 mg Gabapentin (Neurontin -) 300 mg PO TID [facility] Last Admin: 05/30/17 05:50 Dose: 300 mg Heparin Sodium (Porcine) (Heparin -) 5,000 unit SQ BID [facility] Last Admin: 05/30/17 09:15 Dose: 5,000 unit Piperacillin Sod/Tazobactam (Sod 3.375 gm/ Dextrose) 50 mls @ 100 mls/hr IVPB Q8H-IV [facility] Last Admin: 05/30/17 09:16 Dose: 100 mls/hr Sodium Chloride (Normal Saline -) 1,000 mls @ 75 mls/hr IV ASDIR [facility] Last Admin: 05/29/17 16:30 Dose: 75 mls/hr Insulin Aspart (Novolog Vial Sliding Scale -) 1 vial SQ ACHS [facility] PRN Reason: Protocol Last Admin: 05/30/17 06:06 Dose: 8 units Insulin Detemir (Levemir Vial) 20 units SQ HS [facility] Last Admin: 05/29/17 22:39 Dose: 20 units Lactobacillus Acidophilus (Bacid -) 1 tab PO DAILY [facility] Last Admin: 05/30/17 09:15 Dose: 1 tab Levetiracetam (Keppra -) 1,000 mg PO BID [facility] Last Admin: 05/30/17 09:15 Dose: 1,000 mg Lisinopril (Prinivil) 20 mg PO DAILY [facility] Last Admin: 05/30/17 09:15 Dose: 20 mg Methylnaltrexone [place] (Relistor -) 12 mg SQ Q2D@1000 [facility] Methylprednisolone Sodium Succinate (Solu-Medrol -) 40 mg IVPUSH Q6H-IV [facility] Last Admin: 05/30/17 09:15 Dose: 40 mg Metronidazole (Flagyl -) 250 mg PO TID [facility] Montelukast Sodium (Singulair -) 10 mg PO HS [facility] Last Admin: 05/29/17 22:39 Dose: 10 mg Nicotine (Nicoderm Patch -) 7 mg TD DAILY [facility] Last Admin: 05/30/17 09:16 Dose: 7 mg Oseltamivir Phosphate (Tamiflu -) 75 mg PO BID [facility] Stop: 06/02/17 11:29 Last Admin: 05/30/17 09:16 Dose: 75 mg Oxycodone HCl (Roxicodone -) 10 mg PO Q6H PRN PRN Reason: PAIN LEVEL 7 - 10 Last Admin: 05/30/17 08:05 Dose: 10 mg Pancrelipase (Creon Dr 36,000 Units Capsule) 1 cap PO TIDCM [facility] Pantoprazole Sodium (Protonix Iv) 40 mg IVPUSH BID [facility] Last Admin: 05/30/17 09:15 Dose: 40 mg Zolpidem Tartrate (Ambien -) 10 mg PO HS PRN PRN Reason: INSOMNIA Last Admin: 05/29/17 00:07 Dose: 10 mg - Objective Vital Signs: Vital Signs Temperature 98.1 F 05/30/17 09:17 Pulse Rate 85 05/30/17 09:17 Respiratory Rate 20 05/30/17 09:17 Blood Pressure 138/66 05/30/17 09:17 O2 Sat by Pulse Oximetry (%) 94 L 05/29/17 21:00 Cardiovascular: Yes: Regular Rate and Rhythm Respiratory: Yes: On Nasal O2, Rhonchi Gastrointestinal: Yes: Normal Bowel Sounds, Soft, Tenderness, Epigastrium Edema: No Labs: CBC, BMP 05/29/17 11:00 05/29/17 06:00 INR, PTT INR 1.00 (0.82-1.09) 05/27/17 09:15 Problem List - Problems (1) Pneumonia Assessment/Plan: --IV ABX --NEBS --ON TAMIFLU --flu ag negative --ID ON CASE Code(s): J18.9 - PNEUMONIA, UNSPECIFIED ORGANISM Qualifiers: Pneumonia type: due to unspecified organism Laterality: bilateral Lung location: lower lobe of lung Qualified Code(s): J18.9 - Pneumonia, unspecified organism (2) Abdominal pain Assessment/Plan: -CT OF ABDOMINAL DONE RESULTS PENDING --MONITOR --GI CONSULT --PI Code(s): R10.9 - UNSPECIFIED ABDOMINAL PAIN Qualifiers: (3) COPD (chronic obstructive pulmonary disease) Assessment/Plan: NEBS IV STEROIDS Code(s): J44.9 - CHRONIC OBSTRUCTIVE PULMONARY DISEASE, UNSPECIFIED (4) Type 2 diabetes mellitus with diabetic neuropathy, unspecified Assessment/Plan: MEDS BGM Code(s): E11.40 - TYPE 2 DIABETES MELLITUS WITH DIABETIC NEUROPATHY, UNSP
[2017-05-30] MEDS: LIPASE/PROTEASE/AMYLASE 36,000 UNIT CAPSULE PO SCH ×2 (11:50→17:12)
--- NOTE | 2017-05-30 12:13 | PN ---
Progress Note, Physician History of Present Illness: Pt afebrile, states she feels a bit better today. Has been afebrile. Still with some cough but no acute shortness of breath. Reports 2 loose BMs today with nonspecific abd pain. GI evaluation noted. - Current Medication List Current Medications: Active Medications Acetaminophen (Tylenol -) 650 mg PO Q6H PRN PRN Reason: PAIN Last Admin: 05/30/17 08:06 Dose: 650 mg Albuterol/Ipratropium (Duoneb -) 1 amp NEB RQID [facility] Last Admin: 05/30/17 11:57 Dose: Not Given Alprazolam (Xanax -) 1 mg PO Q8H PRN PRN Reason: ANXIETY Stop: 05/30/17 14:58 Aspirin (Ecotrin -) 81 mg PO DAILY [facility] Last Admin: 05/30/17 09:16 Dose: 81 mg Diltiazem HCl (Cardizem Cd -) 120 mg PO DAILY [facility] Last Admin: 05/30/17 09:15 Dose: 120 mg Duloxetine HCl (Cymbalta -) 60 mg PO DAILY [facility] Last Admin: 05/30/17 09:15 Dose: 60 mg Gabapentin (Neurontin -) 300 mg PO TID [facility] Last Admin: 05/30/17 05:50 Dose: 300 mg Heparin Sodium (Porcine) (Heparin -) 5,000 unit SQ BID [facility] Last Admin: 05/30/17 09:15 Dose: 5,000 unit Piperacillin Sod/Tazobactam (Sod 3.375 gm/ Dextrose) 50 mls @ 100 mls/hr IVPB Q8H-IV [facility] Last Admin: 05/30/17 09:16 Dose: 100 mls/hr Sodium Chloride (Normal Saline -) 1,000 mls @ 75 mls/hr IV ASDIR [facility] Last Admin: 05/29/17 16:30 Dose: 75 mls/hr Insulin Aspart (Novolog Vial Sliding Scale -) 1 vial SQ ACHS [facility] PRN Reason: Protocol Last Admin: 05/30/17 11:30 Dose: 10 units Insulin Detemir (Levemir Vial) 20 units SQ HS [facility] Last Admin: 05/29/17 22:39 Dose: 20 units Lactobacillus Acidophilus (Bacid -) 1 tab PO DAILY [facility] Last Admin: 05/30/17 09:15 Dose: 1 tab Levetiracetam (Keppra -) 1,000 mg PO BID [facility] Last Admin: 05/30/17 09:15 Dose: 1,000 mg Lisinopril (Prinivil) 20 mg PO DAILY [facility] Last Admin: 05/30/17 09:15 Dose: 20 mg Methylnaltrexone [place] (Relistor -) 12 mg SQ Q2D@1000 [facility] Methylprednisolone Sodium Succinate (Solu-Medrol -) 40 mg IVPUSH Q8H [facility] Metronidazole (Flagyl -) 250 mg PO TID [facility] Montelukast Sodium (Singulair -) 10 mg PO HS [facility] Last Admin: 05/29/17 22:39 Dose: 10 mg Nicotine (Nicoderm Patch -) 7 mg TD DAILY [facility] Last Admin: 05/30/17 09:16 Dose: 7 mg Oseltamivir Phosphate (Tamiflu -) 75 mg PO BID [facility] Stop: 06/02/17 11:29 Last Admin: 05/30/17 09:16 Dose: 75 mg Oxycodone HCl (Roxicodone -) 10 mg PO Q6H PRN PRN Reason: PAIN LEVEL 7 - 10 Last Admin: 05/30/17 08:05 Dose: 10 mg Pancrelipase (Creon Dr 36,000 Units Capsule) 1 cap PO TIDCM [facility] Last Admin: 05/30/17 11:50 Dose: 1 cap Pantoprazole Sodium (Protonix Iv) 40 mg IVPUSH BID [facility] Last Admin: 05/30/17 09:15 Dose: 40 mg Zolpidem Tartrate (Ambien -) 10 mg PO HS PRN PRN Reason: INSOMNIA Last Admin: 05/29/17 00:07 Dose: 10 mg - Objective Vital Signs: Vital Signs Temperature 98.1 F 05/30/17 09:17 Pulse Rate 85 05/30/17 09:17 Respiratory Rate 20 05/30/17 09:17 Blood Pressure 138/66 05/30/17 09:17 O2 Sat by Pulse Oximetry (%) 94 L 05/29/17 21:00 Constitutional: Yes: No Distress Neck: Yes: Supple Cardiovascular: Yes: Regular Rate and Rhythm Respiratory: Yes: Rales (minimal basilar, less wheezing) Gastrointestinal: Yes: Normal Bowel Sounds, Soft, Tenderness (generalized mild) Genitourinary: Yes: WNL Extremities: Yes: WNL Neurological: Yes: Alert Labs: CBC, BMP 02/17/18 11:00 05/29/17 06:00 INR, PTT INR 1.00 (0.82-1.09) 05/27/17 09:15 Microbiology 05/27/17 08:18 Blood - Peripheral Venous Blood Culture - Preliminary NO GROWTH OBTAINED AFTER 72 HOURS, INCUBATION TO CONTINUE FOR 2 DAYS. 05/27/17 09:00 Blood - Peripheral Venous Blood Culture - Preliminary NO GROWTH OBTAINED AFTER 72 HOURS, INCUBATION TO CONTINUE FOR 2 DAYS. 05/29/17 01:09 Stool Clostridium difficile Antigen ([facility]) - Final 05/29/17 01:09 Stool Clostridium difficile Toxin Assay - Final 05/29/17 01:09 Stool Salmonella/Shigella Culture - Preliminary NO ENTERIC PATHOGENS, 24 HOURS, ON PRIMARY PLATES 05/29/17 01:09 Stool Yersinia Culture - Preliminary NO ENTERIC PATHOGENS, 24 HOURS, ON PRIMARY PLATES 05/29/17 01:09 Stool Vibrio Culture - Preliminary NO ENTERIC PATHOGENS, 24 HOURS, ON PRIMARY PLATES 05/29/17 01:09 Stool Escherichia coli 0157 Culture - Preliminary NO ENTERIC PATHOGENS, 24 HOURS, ON PRIMARY PLATES 05/29/17 12:15 Nasopharyngeal Swab Influenza Types A,B Antigen ([facility]) - Preliminary 05/29/17 12:15 Nasopharyngeal Swab - Preliminary 05/27/17 09:30 Urine - Urine Clean Catch Urine Culture - Final Contaminated: Please Repeat - ....Imaging Chest X-ray: Report Reviewed Cat Scan: Report Reviewed Problem List - Problems (1) Pneumonia Code(s): J18.9 - PNEUMONIA, UNSPECIFIED ORGANISM Qualifiers: Pneumonia type: due to unspecified organism Laterality: bilateral Lung location: lower lobe of lung Qualified Code(s): J18.9 - Pneumonia, unspecified organism (2) Abdominal pain Code(s): R10.9 - UNSPECIFIED ABDOMINAL PAIN Qualifiers: (3) CAD (coronary artery disease) Code(s): I25.10 - ATHSCL HEART DISEASE OF [place] CORONARY ARTERY W/O ANG PCTRS (4) COPD (chronic obstructive pulmonary disease) Code(s): J44.9 - CHRONIC OBSTRUCTIVE PULMONARY DISEASE, UNSPECIFIED (5) Diarrhea Code(s): R19.7 - DIARRHEA, UNSPECIFIED Qualifiers: Diarrhea type: infectious Qualified Code(s): A09 - Infectious gastroenteritis and colitis, unspecified (6) Type 2 diabetes mellitus with diabetic neuropathy, unspecified Code(s): E11.40 - TYPE 2 DIABETES MELLITUS WITH DIABETIC NEUROPATHY, UNSP (7) Bipolar II disorder Code(s): F31.81 - BIPOLAR II DISORDER (8) Hepatitis C Code(s): B19.20 - UNSPECIFIED VIRAL HEPATITIS C WITHOUT HEPATIC COMA Qualifiers: Viral hepatitis chronicity: unspecified Hepatic coma status: without hepatic coma Qualified Code(s): B19.20 - Unspecified viral hepatitis C without hepatic coma (9) Hypertension Code(s): I10 - ESSENTIAL (PRIMARY) HYPERTENSION Assessment/Plan Leukocytosis Hx of C. diff colitis Diarrhea, possible IBS B/L Lower lobe PNA -- wbc decreased -- continue antibiotics -- stool studies negative so far -- sputum culture -- continue monitor vitals
--- NOTE | 2017-05-30 12:46 | PN ---
Progress Note (short form) - Note Progress Note: Still with congested cough, but feels a little better today. No CP. LBMs. Intake & Output 05/27/17 05/28/17 05/29/17 05/30/17 23:59 23:59 23:59 23:59 Intake Total 19090 150 550 Balance 1909 2199 150 550 Weight 205 lb 210 lb 3.2 oz 207 lb 6 oz 210 lb 6 oz Last Vital Signs Temp Pulse Resp BP Pulse Ox 98.1 F 85 20 138/66 96 05/30/17 09:17 05/30/17 09:17 05/30/17 09:17 05/30/17 09:17 05/30/17 09:00 Active Medications Acetaminophen (Tylenol -) 650 mg PO Q6H PRN PRN Reason: PAIN Last Admin: 05/30/17 08:06 Dose: 650 mg Albuterol/Ipratropium (Duoneb -) 1 amp NEB RQID [facility] Last Admin: 05/30/17 11:57 Dose: Not Given Alprazolam (Xanax -) 1 mg PO Q8H PRN PRN Reason: ANXIETY Stop: 05/30/17 14:58 Aspirin (Ecotrin -) 81 mg PO DAILY [facility] Last Admin: 05/30/17 09:16 Dose: 81 mg Diltiazem HCl (Cardizem Cd -) 120 mg PO DAILY [facility] Last Admin: 05/30/17 09:15 Dose: 120 mg Duloxetine HCl (Cymbalta -) 60 mg PO DAILY [facility] Last Admin: 05/30/17 09:15 Dose: 60 mg Gabapentin (Neurontin -) 300 mg PO TID [facility] Last Admin: 05/30/17 05:50 Dose: 300 mg Heparin Sodium (Porcine) (Heparin -) 5,000 unit SQ BID [facility] Last Admin: 05/30/17 09:15 Dose: 5,000 unit Piperacillin Sod/Tazobactam (Sod 3.375 gm/ Dextrose) 50 mls @ 100 mls/hr IVPB Q8H-IV [facility] Last Admin: 05/30/17 09:16 Dose: 100 mls/hr Sodium Chloride (Normal Saline -) 1,000 mls @ 75 mls/hr IV ASDIR [facility] Last Admin: 05/29/17 16:30 Dose: 75 mls/hr Insulin Aspart (Novolog Vial Sliding Scale -) 1 vial SQ ACHS [facility] PRN Reason: Protocol Last Admin: 05/30/17 11:30 Dose: 10 units Insulin Detemir (Levemir Vial) 20 units SQ HS [facility] Last Admin: 05/29/17 22:39 Dose: 20 units Lactobacillus Acidophilus (Bacid -) 1 tab PO DAILY [facility] Last Admin: 05/30/17 09:15 Dose: 1 tab Levetiracetam (Keppra -) 1,000 mg PO BID [facility] Last Admin: 05/30/17 09:15 Dose: 1,000 mg Lisinopril (Prinivil) 20 mg PO DAILY [facility] Last Admin: 05/30/17 09:15 Dose: 20 mg Methylnaltrexone [place] (Relistor -) 12 mg SQ Q2D@1000 [facility] Methylprednisolone Sodium Succinate (Solu-Medrol -) 40 mg IVPUSH Q8H [facility] Metronidazole (Flagyl -) 250 mg PO TID [facility] Montelukast Sodium (Singulair -) 10 mg PO HS [facility] Last Admin: 05/29/17 22:39 Dose: 10 mg Nicotine (Nicoderm Patch -) 7 mg TD DAILY [facility] Last Admin: 05/30/17 09:16 Dose: 7 mg Oseltamivir Phosphate (Tamiflu -) 75 mg PO BID [facility] Stop: 06/02/17 11:29 Last Admin: 05/30/17 09:16 Dose: 75 mg Oxycodone HCl (Roxicodone -) 10 mg PO Q6H PRN PRN Reason: PAIN LEVEL 7 - 10 Last Admin: 05/30/17 08:05 Dose: 10 mg Pancrelipase (Creon Dr 36,000 Units Capsule) 1 cap PO TIDCM [facility] Last Admin: 05/30/17 11:50 Dose: 1 cap Pantoprazole Sodium (Protonix Iv) 40 mg IVPUSH BID [facility] Last Admin: 05/30/17 09:15 Dose: 40 mg Zolpidem Tartrate (Ambien -) 10 mg PO HS PRN PRN Reason: INSOMNIA Last Admin: 05/29/17 00:07 Dose: 10 mg GENERAL: Awake and alert, mildly tachypneic at rest HEENT: Normocephalic, atraumatic. NECK: Supple. Full ROM. No JVD. CARDIOVASCULAR: Tachycardic, S1 S2. No murmurs, rubs, or gallops. PULMONARY: Bilateral expiratory wheezing and rhonchi, (+) cough ABDOMINAL: Soft. Diffuse tenderness to deep palpation. Non-distended. No rebound or guarding. MUSCULOSKELETAL: Normal range of motion at all joints. No bony deformities or tenderness. EXTREMITIES: No cyanosis. No clubbing. No edema. No calf tenderness. SKIN: Warm and dry. Normal capillary refill. No rashes. No jaundice. NEUROLOGICAL: Non-focal Labs: Laboratory Results - last 24 hr 05/29/17 05/29/17 05/30/17 17:10 20:20 05:41 POC Glucometer 325 348 286 05/30/17 11:29 POC Glucometer 331 Assessment/Plan 56F with a PMH of C. diff colitis, NIDDM, HTN, anxiety, depression, chronic pain , former IVDA, who presents to the ER with complaints of worsening abdominal pain and diarrhea with cough/sob x 1 month #B/l Pneumonia HCAP w/ COPD exacerbation #C. Diff colitis #Hx of CHF #Hx of Hep C #Hx of DM Plan: -Solumederol 60 mg q6h: Can taper in AM if improved -Tamiflu -Sputum cx -Duonebs standing/prn -Antibiotics per ID -Oxygen as needed -Nicoderm patch given, smoking cessation discussed with patient -Sleep apnea screen in the future -CT chest followup as an outpatient for non-specific nodules (active smoker) Dr Cheng
[2017-05-30 13:10] LABS: URINE APPEARANCE CLEAR; URINE BILIRUBIN NEGATIVE (NEGATIVE); URINE BLOOD NEGATIVE (NEGATIVE); URINE COLOR YELLOW; URINE GLUCOSE (UA) 3+ (NEGATIVE); URINE KETONE TRACE (NEGATIVE); URINE LEUK ESTERASE NEGATIVE (NEGATIVE); URINE NITRITE NEGATIVE (NEGATIVE); URINE UROBILINOGEN NEGATIVE mg/dL (0.2-1.0)
[2017-05-30 13:16] LABS: URINE PROTEIN 2+ (NEGATIVE)
[2017-05-30 13:21] LABS: EPI CELLS RARE /HPF (FEW)
[2017-05-30 14:20] LABS: URINE CREATININE 80.6 mg/dL (20-320)
[2017-05-30 14:23] LABS: RATIO URIN PROTEIN/URIN CREAT 2.4 MG/DL
[2017-05-30] MEDS: metroNIDAZOLE 250 MG TABLET PO SCH ×2 (14:44→22:46)
[2017-05-30] MEDS: SODIUM CHLORIDE 1,000 ML IV SCH (17:14)
[2017-05-30] MEDS: MONTELUKAST NA 10 MG TABLET PO SCH (22:45)
[2017-05-30] MEDS: INSULIN DETEMIR 100 UNITS/ML MDV SQ SCH (22:46)
[2017-05-31] MEDS ORDERED: PT OWN MED DRAWER 7, Y5N ONE ×7 (01:16→21:16)
[2017-05-31] MEDS: oxyCODONE HCL 5 MG TABLET PO PRN ×2 (01:21→08:35)
[2017-05-31] MEDS: PIPERACILLIN/TAZOB 3.375 GM 3.375 GM in DEXTROSE 5%-WATER - 50 ML IVPB SCH ×3 (01:21→17:04)
[2017-05-31] MEDS: SODIUM CHLORIDE 1,000 ML IV SCH ×2 (01:21→17:03)
[2017-05-31] MEDS: ACETAMINOPHEN 325 MG TABLET (FP) PO PRN ×2 (01:24→08:36)
[2017-05-31] MEDS: methylPREDNISolone NA SUCC 40 MG/1 ML VIAL IVPUSH SCH ×3 (03:18→18:41)
[2017-05-31] MEDS: GABAPENTIN 300 MG CAPSULE (FP) PO SCH ×3 (06:55→21:19)
[2017-05-31] MEDS: metroNIDAZOLE 250 MG TABLET PO SCH ×3 (06:55→21:18)
[2017-05-31] MEDS: INSULIN SLIDING SCALE (NOVOLOG) 1 VIAL SQ SCH ×4 (06:56→22:52)
[2017-05-31] MEDS: ALBUTEROL SO4 2.5/IPRATROPIUM 0.5 INH SOL 3 ML VIAL.NEB. NEB SCH ×4 (08:00→19:47)
[2017-05-31] MEDS ORDERED: INSULIN DETEMIR 100 UNITS/ML MDV SQ ONE (08:13)
[2017-05-31] MEDS ORDERED: INSULIN (NOVOLOG) ASPART 100 UNITS/ML 10ML VIAL ONE ×2 (08:13→11:32)
[2017-05-31] MEDS: LIPASE/PROTEASE/AMYLASE 36,000 UNIT CAPSULE PO SCH ×3 (08:37→17:04)
[2017-05-31] MEDS: LACTOBACILLUS ACIDOPHILUS 1 EACH TAB (FP) PO SCH (09:00)
[2017-05-31] MEDS: HEPARIN NA (PORCINE) 5,000 UNITS/ML 1ML VIAL SQ SCH ×2 (09:00→21:19)
[2017-05-31] MEDS: LISINOPRIL 20 MG TABLET (FP) PO SCH (09:01)
[2017-05-31] MEDS: PANTOPRAZOLE SODIUM 40 MG VIAL IVPUSH SCH ×2 (09:01→21:21)
[2017-05-31] MEDS: DULoxetine HCL 30 MG CAPSULE.DR (FP) PO SCH (09:01)
[2017-05-31] MEDS: ASPIRIN COATED 81 MG TABLET.EC PO SCH (09:01)
[2017-05-31] MEDS: levETIRAcetam 500 MG TABLET (FP) PO SCH ×2 (09:01→21:19)
[2017-05-31] MEDS: NICOTINE 7 MG/24 HOURS TOPICAL PATCH TD SCH (09:04)
[2017-05-31] MEDS: OSELTAMIVIR PHOSPHATE 75 MG CAPSULE PO SCH ×2 (09:04→21:19)
--- NOTE | 2017-05-31 11:46 | PN ---
Progress Note, Physician History of Present Illness: PULMONARY ALERT,LESS DYSPNEIC,+ HEMOPTYSIS - Current Medication List Current Medications: Active Medications Acetaminophen (Tylenol -) 650 mg PO Q6H PRN PRN Reason: PAIN Last Admin: 05/31/17 08:36 Dose: 650 mg Albuterol/Ipratropium (Duoneb -) 1 amp NEB RQID [facility] Last Admin: 05/31/17 08:00 Dose: Not Given Aspirin (Ecotrin -) 81 mg PO DAILY [facility] Last Admin: 05/31/17 09:01 Dose: 81 mg Diltiazem HCl (Cardizem Cd -) 120 mg PO DAILY [facility] Last Admin: 05/31/17 09:01 Dose: 120 mg Duloxetine HCl (Cymbalta -) 60 mg PO DAILY [facility] Last Admin: 05/31/17 09:01 Dose: 60 mg Gabapentin (Neurontin -) 300 mg PO TID [facility] Last Admin: 05/31/17 06:55 Dose: 300 mg Heparin Sodium (Porcine) (Heparin -) 5,000 unit SQ BID [facility] Last Admin: 05/31/17 09:00 Dose: 5,000 unit Piperacillin Sod/Tazobactam (Sod 3.375 gm/ Dextrose) 50 mls @ 100 mls/hr IVPB Q8H-IV [facility] Last Admin: 05/31/17 09:02 Dose: 100 mls/hr Sodium Chloride (Normal Saline -) 1,000 mls @ 75 mls/hr IV ASDIR [facility] Last Admin: 05/31/17 01:21 Dose: 75 mls/hr Insulin Aspart (Novolog Vial Sliding Scale -) 1 vial SQ ACHS [facility] PRN Reason: Protocol Last Admin: 05/31/17 06:56 Dose: 10 units Insulin Detemir (Levemir Vial) 20 units SQ HS [facility] Last Admin: 05/30/17 22:46 Dose: 20 units Lactobacillus Acidophilus (Bacid -) 1 tab PO DAILY [facility] Last Admin: 05/31/17 09:00 Dose: 1 tab Levetiracetam (Keppra -) 1,000 mg PO BID [facility] Last Admin: 05/31/17 09:01 Dose: 1,000 mg Lisinopril (Prinivil) 20 mg PO DAILY [facility] Last Admin: 05/31/17 09:01 Dose: 20 mg Methylnaltrexone [place] (Relistor -) 12 mg SQ Q2D@1000 [facility] Methylprednisolone Sodium Succinate (Solu-Medrol -) 40 mg IVPUSH Q8H [facility] Last Admin: 05/31/17 11:20 Dose: 40 mg Metronidazole (Flagyl -) 250 mg PO TID [facility] Last Admin: 05/31/17 06:55 Dose: 250 mg Montelukast Sodium (Singulair -) 10 mg PO HS [facility] Last Admin: 05/30/17 22:45 Dose: 10 mg Nicotine (Nicoderm Patch -) 7 mg TD DAILY [facility] Last Admin: 05/31/17 09:04 Dose: 7 mg Oseltamivir Phosphate (Tamiflu -) 75 mg PO BID [facility] Stop: 06/02/17 11:29 Last Admin: 05/31/17 09:04 Dose: 75 mg Oxycodone HCl (Roxicodone -) 10 mg PO Q6H PRN PRN Reason: PAIN LEVEL 7 - 10 Last Admin: 05/31/17 08:35 Dose: 10 mg Pancrelipase (Creon Dr 36,000 Units Capsule) 1 cap PO TIDCM [facility] Last Admin: 05/31/17 08:37 Dose: 1 cap Pantoprazole Sodium (Protonix Iv) 40 mg IVPUSH BID [facility] Last Admin: 05/31/17 09:01 Dose: 40 mg Zolpidem Tartrate (Ambien -) 10 mg PO HS PRN PRN Reason: INSOMNIA Last Admin: 05/29/17 00:07 Dose: 10 mg - Objective Vital Signs: Vital Signs Temperature 98.3 F 05/31/17 06:44 Pulse Rate 75 05/31/17 06:44 Respiratory Rate 18 05/31/17 06:44 Blood Pressure 158/78 05/31/17 06:44 O2 Sat by Pulse Oximetry (%) 96 05/30/17 21:00 Constitutional: Yes: Well Nourished, Calm Eyes: Yes: WNL HENT: Yes: WNL Neck: Yes: WNL Cardiovascular: Yes: Regular Rate and Rhythm, S1, S2 Respiratory: Yes: Rhonchi (SCATTERED RHONCHI) Gastrointestinal: Yes: Normal Bowel Sounds, Soft Extremities: Yes: WNL Edema: No Labs: CBC, BMP Problem List - Problems (1) Tobacco abuse counseling Code(s): Z71.6 - TOBACCO ABUSE COUNSELING (2) Pneumonia Code(s): J18.9 - PNEUMONIA, UNSPECIFIED ORGANISM Qualifiers: Pneumonia type: due to unspecified organism Laterality: bilateral Lung location: lower lobe of lung Qualified Code(s): J18.9 - Pneumonia, unspecified organism (3) Abdominal pain Code(s): R10.9 - UNSPECIFIED ABDOMINAL PAIN Qualifiers: (4) COPD exacerbation Code(s): J44.1 - CHRONIC OBSTRUCTIVE PULMONARY DISEASE W (ACUTE) EXACERBATION (5) Diarrhea Code(s): R19.7 - DIARRHEA, UNSPECIFIED Qualifiers: Diarrhea type: infectious Qualified Code(s): A09 - Infectious gastroenteritis and colitis, unspecified (6) Hyperglycemia Code(s): R73.9 - HYPERGLYCEMIA, UNSPECIFIED (7) Tobacco abuse Code(s): Z72.0 - TOBACCO USE (8) Type 2 diabetes mellitus with diabetic neuropathy, unspecified Code(s): E11.40 - TYPE 2 DIABETES MELLITUS WITH DIABETIC NEUROPATHY, UNSP (9) Bipolar II disorder Code(s): F31.81 - BIPOLAR II DISORDER (10) Diabetes mellitus Code(s): E11.9 - TYPE 2 DIABETES MELLITUS WITHOUT COMPLICATIONS Qualifiers: (11) Hepatitis C Code(s): B19.20 - UNSPECIFIED VIRAL HEPATITIS C WITHOUT HEPATIC COMA Qualifiers: Viral hepatitis chronicity: unspecified Hepatic coma status: without hepatic coma Qualified Code(s): B19.20 - Unspecified viral hepatitis C without hepatic coma (12) Nicotine dependence Code(s): F17.200 - NICOTINE DEPENDENCE, UNSPECIFIED, UNCOMPLICATED (13) ASHD (arteriosclerotic heart disease) Code(s): I25.10 - ATHSCL HEART DISEASE OF [place] CORONARY ARTERY W/O ANG PCTRS Assessment/Plan PULMONARY IMP BILATERAL PNEUMONIA HCAP COPD EXACERBATION COLITIS ASHD S/P STENT ABDOMINAL PAIN CHF HEP C DM BIPOLAR H/O SUBSTANCE TOBACCO ABUSE SUSPECTED DB HEMOPTYSIS PLAN IV ANTIBIOTICS INHALED BRONCHODILATORS IV STEROIDS O2 NICODERM PATCH SLEEP SCREEN PFTS OUTPATIENT SMOKING CESSATION COUNSELED QUANTIFY HEMOPTYSIS DR PERDUE Problem List - Problems (1) Tobacco abuse counseling Code(s): Z71.6 - TOBACCO ABUSE COUNSELING (2) Pneumonia Code(s): J18.9 - PNEUMONIA, UNSPECIFIED ORGANISM Qualifiers: Pneumonia type: due to unspecified organism Laterality: bilateral Lung location: lower lobe of lung Qualified Code(s): J18.9 - Pneumonia, unspecified organism (3) Abdominal pain Code(s): R10.9 - UNSPECIFIED ABDOMINAL PAIN Qualifiers: (4) COPD exacerbation Code(s): J44.1 - CHRONIC OBSTRUCTIVE PULMONARY DISEASE W (ACUTE) EXACERBATION (5) Diarrhea Code(s): R19.7 - DIARRHEA, UNSPECIFIED Qualifiers: Diarrhea type: infectious Qualified Code(s): A09 - Infectious gastroenteritis and colitis, unspecified (6) Hyperglycemia Code(s): R73.9 - HYPERGLYCEMIA, UNSPECIFIED (7) Tobacco abuse Code(s): Z72.0 - TOBACCO USE (8) Type 2 diabetes mellitus with diabetic neuropathy, unspecified Code(s): E11.40 - TYPE 2 DIABETES MELLITUS WITH DIABETIC NEUROPATHY, UNSP (9) Bipolar II disorder Code(s): F31.81 - BIPOLAR II DISORDER (10) Diabetes mellitus Code(s): E11.9 - TYPE 2 DIABETES MELLITUS WITHOUT COMPLICATIONS Qualifiers: (11) Hepatitis C Code(s): B19.20 - UNSPECIFIED VIRAL HEPATITIS C WITHOUT HEPATIC COMA Qualifiers: Viral hepatitis chronicity: unspecified Hepatic coma status: without hepatic coma Qualified Code(s): B19.20 - Unspecified viral hepatitis C without hepatic coma (12) Nicotine dependence Code(s): F17.200 - NICOTINE DEPENDENCE, UNSPECIFIED, UNCOMPLICATED (13) ASHD (arteriosclerotic heart disease) Code(s): I25.10 - ATHSCL HEART DISEASE OF [place] CORONARY ARTERY W/O ANG PCTRS
--- NOTE | 2017-05-31 11:56 | PN ---
Progress Note, Physician History of Present Illness: patient stable c/o of hemoptysis and dirrhoea looks stable breathing much better - Current Medication List Current Medications: Active Medications Acetaminophen (Tylenol -) 650 mg PO Q6H PRN PRN Reason: PAIN Last Admin: 05/31/17 08:36 Dose: 650 mg Albuterol/Ipratropium (Duoneb -) 1 amp NEB RQID [facility] Last Admin: 05/31/17 08:00 Dose: Not Given Aspirin (Ecotrin -) 81 mg PO DAILY [facility] Last Admin: 05/31/17 09:01 Dose: 81 mg Diltiazem HCl (Cardizem Cd -) 120 mg PO DAILY [facility] Last Admin: 05/31/17 09:01 Dose: 120 mg Duloxetine HCl (Cymbalta -) 60 mg PO DAILY [facility] Last Admin: 05/31/17 09:01 Dose: 60 mg Gabapentin (Neurontin -) 300 mg PO TID [facility] Last Admin: 05/31/17 06:55 Dose: 300 mg Heparin Sodium (Porcine) (Heparin -) 5,000 unit SQ BID [facility] Last Admin: 05/31/17 09:00 Dose: 5,000 unit Piperacillin Sod/Tazobactam (Sod 3.375 gm/ Dextrose) 50 mls @ 100 mls/hr IVPB Q8H-IV [facility] Last Admin: 05/31/17 09:02 Dose: 100 mls/hr Sodium Chloride (Normal Saline -) 1,000 mls @ 75 mls/hr IV ASDIR [facility] Last Admin: 05/31/17 01:21 Dose: 75 mls/hr Insulin Aspart (Novolog Vial Sliding Scale -) 1 vial SQ ACHS [facility] PRN Reason: Protocol Last Admin: 05/31/17 11:44 Dose: 6 units Insulin Detemir (Levemir Vial) 20 units SQ HS [facility] Last Admin: 05/30/17 22:46 Dose: 20 units Lactobacillus Acidophilus (Bacid -) 1 tab PO DAILY [facility] Last Admin: 05/31/17 09:00 Dose: 1 tab Levetiracetam (Keppra -) 1,000 mg PO BID [facility] Last Admin: 05/31/17 09:01 Dose: 1,000 mg Lisinopril (Prinivil) 20 mg PO DAILY [facility] Last Admin: 05/31/17 09:01 Dose: 20 mg Methylnaltrexone [place] (Relistor -) 12 mg SQ Q2D@1000 [facility] Methylprednisolone Sodium Succinate (Solu-Medrol -) 40 mg IVPUSH Q8H [facility] Last Admin: 05/31/17 11:20 Dose: 40 mg Metronidazole (Flagyl -) 250 mg PO TID [facility] Last Admin: 05/31/17 06:55 Dose: 250 mg Montelukast Sodium (Singulair -) 10 mg PO HS [facility] Last Admin: 05/30/17 22:45 Dose: 10 mg Nicotine (Nicoderm Patch -) 7 mg TD DAILY [facility] Last Admin: 05/31/17 09:04 Dose: 7 mg Oseltamivir Phosphate (Tamiflu -) 75 mg PO BID [facility] Stop: 06/02/17 11:29 Last Admin: 05/31/17 09:04 Dose: 75 mg Oxycodone HCl (Roxicodone -) 10 mg PO Q6H PRN PRN Reason: PAIN LEVEL 7 - 10 Last Admin: 05/31/17 08:35 Dose: 10 mg Pancrelipase (Creon Dr 36,000 Units Capsule) 1 cap PO TIDCM [facility] Last Admin: 05/31/17 11:44 Dose: 1 cap Pantoprazole Sodium (Protonix Iv) 40 mg IVPUSH BID [facility] Last Admin: 05/31/17 09:01 Dose: 40 mg Zolpidem Tartrate (Ambien -) 10 mg PO HS PRN PRN Reason: INSOMNIA Last Admin: 05/29/17 00:07 Dose: 10 mg - Objective Vital Signs: Vital Signs Temperature 98.3 F 05/31/17 06:44 Pulse Rate 75 05/31/17 06:44 Respiratory Rate 18 05/31/17 06:44 Blood Pressure 158/78 05/31/17 06:44 O2 Sat by Pulse Oximetry (%) 96 05/30/17 21:00 Constitutional: Yes: No Distress, Calm Cardiovascular: Yes: Regular Rate and Rhythm, S1, S2 Respiratory: Yes: Regular, Poor Air Entry Gastrointestinal: Yes: Normal Bowel Sounds, Soft Musculoskeletal: Yes: WNL Extremities: Yes: WNL Neurological: Yes: Alert, Oriented Psychiatric: Yes: Alert, Oriented Labs: CBC, BMP 05/29/17 11:00 05/29/17 06:00 INR, PTT INR 1.00 (0.82-1.09) 05/27/17 09:15 Assessment/Plan Problem List - Problems (1) Pneumonia Code(s): J18.9 - PNEUMONIA, UNSPECIFIED ORGANISM Qualifiers: Pneumonia type: due to unspecified organism Laterality: bilateral Lung location: lower lobe of lung Qualified Code(s): J18.9 - Pneumonia, unspecified organism (2) Abdominal pain Code(s): R10.9 - UNSPECIFIED ABDOMINAL PAIN Qualifiers: (3) CAD (coronary artery disease) Code(s): I25.10 - ATHSCL HEART DISEASE OF [place] CORONARY ARTERY W/O ANG PCTRS (4) COPD (chronic obstructive pulmonary disease) Code(s): J44.9 - CHRONIC OBSTRUCTIVE PULMONARY DISEASE, UNSPECIFIED (5) Diabetes mellitus Code(s): E11.9 - TYPE 2 DIABETES MELLITUS WITHOUT COMPLICATIONS Qualifiers: (6) Diabetes type 2, controlled Code(s): E11.9 - TYPE 2 DIABETES MELLITUS WITHOUT COMPLICATIONS (7) Hypertension Code(s): I10 - ESSENTIAL (PRIMARY) HYPERTENSION (8) Nicotine dependence Code(s): F17.200 - NICOTINE DEPENDENCE, UNSPECIFIED, UNCOMPLICATED plan continue abx incentive varsha once patient completes 5 days will deescalte abx monitor for hemoptysis rest as per pul
--- NOTE | 2017-05-31 14:58 | PN ---
Progress Note, Physician Chief Complaint: AWAKE C/O CHRONIC PAIN +HEMOPTYSIS UNQUANTIFIED - Current Medication List Current Medications: Active Medications Acetaminophen (Tylenol -) 650 mg PO Q6H PRN PRN Reason: PAIN Last Admin: 05/31/17 08:36 Dose: 650 mg Albuterol/Ipratropium (Duoneb -) 1 amp NEB RQID [facility] Last Admin: 05/31/17 11:35 Dose: 1 amp Alprazolam (Xanax -) 1 mg PO Q8H PRN PRN Reason: ANXIETY Aspirin (Ecotrin -) 81 mg PO DAILY [facility] Last Admin: 05/31/17 09:01 Dose: 81 mg Diltiazem HCl (Cardizem Cd -) 120 mg PO DAILY [facility] Last Admin: 05/31/17 09:01 Dose: 120 mg Duloxetine HCl (Cymbalta -) 60 mg PO DAILY [facility] Last Admin: 05/31/17 09:01 Dose: 60 mg Gabapentin (Neurontin -) 300 mg PO TID [facility] Last Admin: 05/31/17 13:11 Dose: 300 mg Heparin Sodium (Porcine) (Heparin -) 5,000 unit SQ BID [facility] Last Admin: 05/31/17 09:00 Dose: 5,000 unit Piperacillin Sod/Tazobactam (Sod 3.375 gm/ Dextrose) 50 mls @ 100 mls/hr IVPB Q8H-IV [facility] Last Admin: 05/31/17 09:02 Dose: 100 mls/hr Sodium Chloride (Normal Saline -) 1,000 mls @ 75 mls/hr IV ASDIR [facility] Last Admin: 05/31/17 01:21 Dose: 75 mls/hr Insulin Aspart (Novolog Vial Sliding Scale -) 1 vial SQ ACHS [facility] PRN Reason: Protocol Last Admin: 05/31/17 11:44 Dose: 6 units Insulin Detemir (Levemir Vial) 20 units SQ HS [facility] Last Admin: 05/30/17 22:46 Dose: 20 units Lactobacillus Acidophilus (Bacid -) 1 tab PO DAILY [facility] Last Admin: 05/31/17 09:00 Dose: 1 tab Levetiracetam (Keppra -) 1,000 mg PO BID [facility] Last Admin: 05/31/17 09:01 Dose: 1,000 mg Lisinopril (Prinivil) 20 mg PO DAILY [facility] Last Admin: 05/31/17 09:01 Dose: 20 mg Methylnaltrexone [place] (Relistor -) 12 mg SQ Q2D@1000 [facility] Methylprednisolone Sodium Succinate (Solu-Medrol -) 40 mg IVPUSH Q8H [facility] Last Admin: 05/31/17 11:20 Dose: 40 mg Metronidazole (Flagyl -) 250 mg PO TID [facility] Last Admin: 05/31/17 13:11 Dose: 250 mg Montelukast Sodium (Singulair -) 10 mg PO HS [facility] Last Admin: 05/30/17 22:45 Dose: 10 mg Nicotine (Nicoderm Patch -) 7 mg TD DAILY [facility] Last Admin: 05/31/17 09:04 Dose: 7 mg Oseltamivir Phosphate (Tamiflu -) 75 mg PO BID [facility] Stop: 06/02/17 11:29 Last Admin: 05/31/17 09:04 Dose: 75 mg Oxycodone HCl (Roxicodone -) 10 mg PO Q6H PRN PRN Reason: PAIN LEVEL 7 - 10 Last Admin: 05/31/17 08:35 Dose: 10 mg Pancrelipase (Creon Dr 36,000 Units Capsule) 1 cap PO TIDCM [facility] Last Admin: 05/31/17 11:44 Dose: 1 cap Pantoprazole Sodium (Protonix Iv) 40 mg IVPUSH BID [facility] Last Admin: 05/31/17 09:01 Dose: 40 mg Zolpidem Tartrate (Ambien -) 10 mg PO HS PRN PRN Reason: INSOMNIA Last Admin: 05/29/17 00:07 Dose: 10 mg - Objective Vital Signs: Vital Signs Temperature 98.7 F 05/31/17 13:25 Pulse Rate 85 05/31/17 13:25 Respiratory Rate 25 H 05/31/17 13:25 Blood Pressure 143/99 05/31/17 13:25 O2 Sat by Pulse Oximetry (%) 98 05/31/17 09:00 Constitutional: Yes: Mild Distress Eyes: Yes: WNL HENT: Yes: WNL Neck: Yes: WNL Cardiovascular: Yes: WNL Respiratory: Yes: Cough, On Nasal O2 Gastrointestinal: Yes: Tenderness Genitourinary: Yes: WNL Musculoskeletal: Yes: Back Pain, Muscle Weakness Extremities: Yes: WNL Edema: Yes Edema: LLE: Trace, RLE: Trace Peripheral Pulses WNL: Yes Integumentary: Yes: WNL Wound/Incision: Yes: Clean/Dry Neurological: Yes: Pre-Existing Deficit, Weakness ...Motor Strength: LLE, RLE Psychiatric: Yes: Other Labs: CBC, BMP 05/29/17 11:00 05/29/17 06:00 INR, PTT INR 1.00 (0.82-1.09) 05/27/17 09:15 Problem List - Problems (1) Pneumonia Code(s): J18.9 - PNEUMONIA, UNSPECIFIED ORGANISM Qualifiers: Pneumonia type: due to unspecified organism Laterality: bilateral Lung location: lower lobe of lung Qualified Code(s): J18.9 - Pneumonia, unspecified organism (2) Abdominal pain Code(s): R10.9 - UNSPECIFIED ABDOMINAL PAIN Qualifiers: (3) CAD (coronary artery disease) Code(s): I25.10 - ATHSCL HEART DISEASE OF [place] CORONARY ARTERY W/O ANG PCTRS (4) COPD (chronic obstructive pulmonary disease) Code(s): J44.9 - CHRONIC OBSTRUCTIVE PULMONARY DISEASE, UNSPECIFIED (5) Diabetes mellitus Code(s): E11.9 - TYPE 2 DIABETES MELLITUS WITHOUT COMPLICATIONS Qualifiers: (6) Diabetes type 2, controlled Code(s): E11.9 - TYPE 2 DIABETES MELLITUS WITHOUT COMPLICATIONS (7) Hypertension Code(s): I10 - ESSENTIAL (PRIMARY) HYPERTENSION (8) Nicotine dependence Code(s): F17.200 - NICOTINE DEPENDENCE, UNSPECIFIED, UNCOMPLICATED (9) Diabetic gastroparesis Code(s): E11.43 - TYPE 2 DIABETES W DIABETIC AUTONOMIC (POLY)NEUROPATHY; K31.84 - GASTROPARESIS (10) Neuropathy Code(s): G62.9 - POLYNEUROPATHY, UNSPECIFIED (11) Hemoptysis, unspecified Code(s): R04.2 - HEMOPTYSIS Assessment/Plan HEMOPTYSIS WAS NOT SEEN BY NURSING STAFF IN [facility] PULM AND GI FOLLOW UP CULTURES NEGATIVE STOP ABX TOMORROW REGLAN BEFORE MEALS FOR GASTROPARESIS PT EVAL SNF
[2017-05-31] MEDS: METOCLOPRAMIDE HCL 10 MG TABLET (FP) PO SCH (17:04)
[2017-05-31] MEDS: hydrALAZINE HCL 10 MG TABLET PO SCH ×2 (21:18→22:51)
[2017-05-31] MEDS: MONTELUKAST NA 10 MG TABLET PO SCH (21:19)
[2017-05-31] MEDS: ALPRAZolam 2 MG TABLET PO PRN (21:19)
[2017-05-31] MEDS ORDERED: hydrALAZINE HCL 10 MG TABLET PO SCH (22:00)
[2017-05-31] MEDS: INSULIN DETEMIR 100 UNITS/ML MDV SQ SCH (22:51)
[2017-06-01] MEDS: ACETAMINOPHEN 325 MG TABLET (FP) PO PRN ×2 (01:33→17:00)
[2017-06-01] MEDS: oxyCODONE HCL 5 MG TABLET PO PRN ×2 (01:34→16:59)
[2017-06-01] MEDS: PIPERACILLIN/TAZOB 3.375 GM 3.375 GM in DEXTROSE 5%-WATER - 50 ML IVPB SCH ×3 (01:35→16:59)
[2017-06-01] MEDS: methylPREDNISolone NA SUCC 40 MG/1 ML VIAL IVPUSH SCH ×2 (03:47→11:23)
[2017-06-01] MEDS: metroNIDAZOLE 250 MG TABLET PO SCH ×3 (06:53→21:17)
[2017-06-01] MEDS: METOCLOPRAMIDE HCL 10 MG TABLET (FP) PO SCH ×3 (06:53→16:59)
[2017-06-01 06:55] LABS: CHLORIDE 99 mmol/L (98-107); POTASSIUM 4.4 mmol/L (3.5-5.1); SODIUM 138 mmol/L (136-145)
[2017-06-01] MEDS: GABAPENTIN 300 MG CAPSULE (FP) PO SCH ×3 (06:55→21:16)
[2017-06-01] MEDS: INSULIN SLIDING SCALE (NOVOLOG) 1 VIAL SQ SCH ×4 (06:55→21:16)
[2017-06-01] MEDS ORDERED: INSULIN (NOVOLOG) ASPART 100 UNITS/ML 10ML VIAL ONE ×2 (07:04→21:09)
[2017-06-01 07:06] LABS: ANION GAP 6 (8-16); BLOOD UREA NITROGEN 14 mg/dL (7-18); CALCIUM 8.3 mg/dL (8.5-10.1); CO2 33 mmol/L (21-32); CREATININE 0.6 mg/dL (0.55-1.02); GLUCOSE,RANDOM 264 mg/dL (74-106)
[2017-06-01] MEDS: ALBUTEROL SO4 2.5/IPRATROPIUM 0.5 INH SOL 3 ML VIAL.NEB. NEB SCH ×4 (07:35→20:23)
[2017-06-01 07:52] LABS: HEMATOCRIT 40.1 % (32.4-45.2); MCH 29.6 pg (25.7-33.7); MCHC 32.4 g/dl (32.0-36.0); MEAN CELL VOLUME 91.2 fl (80-96); PLATELET COUNT 397 K/MM3 (134-434); RBC 4.39 M/mm3 (3.60-5.2); RDW 13.2 % (11.6-15.6); WHITE BLOOD COUNT 13.6 K/mm3 (4.0-10.0)
[2017-06-01] MEDS ORDERED: PT OWN MED DRAWER 7, Y5N ONE ×3 (08:25→16:39)
[2017-06-01] MEDS: LIPASE/PROTEASE/AMYLASE 36,000 UNIT CAPSULE PO SCH ×3 (08:32→17:30)
[2017-06-01] MEDS: ALPRAZolam 2 MG TABLET PO PRN (08:39)
[2017-06-01] MEDS: Methylnaltrexone Bromide 12 MG/0.6 ML KIT SQ SCH (09:01)
[2017-06-01] MEDS: NICOTINE 7 MG/24 HOURS TOPICAL PATCH TD SCH (09:01)
[2017-06-01] MEDS: hydrALAZINE HCL 10 MG TABLET PO SCH (09:02)
[2017-06-01] MEDS: DULoxetine HCL 30 MG CAPSULE.DR (FP) PO SCH (09:02)
[2017-06-01] MEDS: LISINOPRIL 20 MG TABLET (FP) PO SCH (09:02)
[2017-06-01] MEDS: LACTOBACILLUS ACIDOPHILUS 1 EACH TAB (FP) PO SCH (09:02)
[2017-06-01] MEDS: levETIRAcetam 500 MG TABLET (FP) PO SCH ×2 (09:02→21:16)
[2017-06-01] MEDS: OSELTAMIVIR PHOSPHATE 75 MG CAPSULE PO SCH (09:03)
[2017-06-01] MEDS: ASPIRIN COATED 81 MG TABLET.EC PO SCH (09:03)
[2017-06-01] MEDS: HEPARIN NA (PORCINE) 5,000 UNITS/ML 1ML VIAL SQ SCH ×2 (09:03→21:16)
[2017-06-01] MEDS: PANTOPRAZOLE SODIUM 40 MG VIAL IVPUSH SCH (09:03)
[2017-06-01] MEDS ORDERED: hydrALAZINE HCL 25 MG TABLET (FP) PO ONE ×2 (12:00→15:17)
--- NOTE | 2017-06-01 12:05 | PN ---
Progress Note, Physician History of Present Illness: PULMONARY NO CHANGE,C/O SOB,COUGH ,HEMOPTYSIS - Current Medication List Current Medications: Active Medications Acetaminophen (Tylenol -) 650 mg PO Q6H PRN PRN Reason: PAIN Last Admin: 06/01/17 01:33 Dose: 650 mg Albuterol/Ipratropium (Duoneb -) 1 amp NEB RQID [facility] Last Admin: 06/01/17 07:35 Dose: Not Given Alprazolam (Xanax -) 1 mg PO Q8H PRN PRN Reason: ANXIETY Last Admin: 06/01/17 08:39 Dose: 1 mg Aspirin (Ecotrin -) 81 mg PO DAILY [facility] Last Admin: 06/01/17 09:03 Dose: 81 mg Diltiazem HCl (Cardizem Cd -) 120 mg PO DAILY [facility] Last Admin: 06/01/17 09:02 Dose: 120 mg Duloxetine HCl (Cymbalta -) 60 mg PO DAILY [facility] Last Admin: 06/01/17 09:02 Dose: 60 mg Gabapentin (Neurontin -) 300 mg PO TID [facility] Last Admin: 06/01/17 06:55 Dose: 300 mg Heparin Sodium (Porcine) (Heparin -) 5,000 unit SQ BID [facility] Last Admin: 06/01/17 09:03 Dose: Not Given Hydralazine HCl (Apresoline -) 10 mg PO BID [facility] Last Admin: 06/01/17 09:02 Dose: 10 mg Hydralazine HCl (Apresoline -) 25 mg PO ONCE ONE Stop: 06/01/17 12:01 Piperacillin Sod/Tazobactam (Sod 3.375 gm/ Dextrose) 50 mls @ 100 mls/hr IVPB Q8H-IV [facility] Last Admin: 06/01/17 09:03 Dose: 100 mls/hr Sodium Chloride (Normal Saline -) 1,000 mls @ 75 mls/hr IV ASDIR [facility] Last Admin: 05/31/17 17:03 Dose: 75 mls/hr Insulin Aspart (Novolog Vial Sliding Scale -) 1 vial SQ ACHS [facility] PRN Reason: Protocol Last Admin: 06/01/17 11:40 Dose: 8 units Insulin Detemir (Levemir Vial) 20 units SQ HS [facility] Last Admin: 05/31/17 22:51 Dose: 20 units Lactobacillus Acidophilus (Bacid -) 1 tab PO DAILY [facility] Last Admin: 06/01/17 09:02 Dose: 1 tab Levetiracetam (Keppra -) 1,000 mg PO BID [facility] Last Admin: 06/01/17 09:02 Dose: 1,000 mg Lisinopril (Prinivil) 20 mg PO DAILY [facility] Last Admin: 06/01/17 09:02 Dose: 20 mg Methylnaltrexone [place] (Relistor -) 12 mg SQ Q2D@1000 [facility] Last Admin: 06/01/17 09:01 Dose: 12 mg Methylprednisolone Sodium Succinate (Solu-Medrol -) 40 mg IVPUSH Q8H [facility] Last Admin: 06/01/17 11:23 Dose: 40 mg Metoclopramide HCl (Reglan -) 10 mg PO TIDAC [facility] Last Admin: 06/01/17 11:23 Dose: 10 mg Metronidazole (Flagyl -) 250 mg PO TID [facility] Last Admin: 06/01/17 06:53 Dose: 250 mg Montelukast Sodium (Singulair -) 10 mg PO HS [facility] Last Admin: 05/31/17 21:19 Dose: 10 mg Nicotine (Nicoderm Patch -) 7 mg TD DAILY [facility] Last Admin: 06/01/17 09:01 Dose: 7 mg Oseltamivir Phosphate (Tamiflu -) 75 mg PO BID [facility] Stop: 06/02/17 11:29 Last Admin: 06/01/17 09:03 Dose: 75 mg Oxycodone HCl (Roxicodone -) 10 mg PO Q6H PRN PRN Reason: PAIN LEVEL 7 - 10 Last Admin: 06/01/17 01:34 Dose: 10 mg Pancrelipase (Creon Dr 36,000 Units Capsule) 1 cap PO TIDCM [facility] Last Admin: 06/01/17 11:24 Dose: 1 cap Pantoprazole Sodium (Protonix Iv) 40 mg IVPUSH BID [facility] Last Admin: 06/01/17 09:03 Dose: 40 mg Zolpidem Tartrate (Ambien -) 10 mg PO HS PRN PRN Reason: INSOMNIA Last Admin: 05/29/17 00:07 Dose: 10 mg - Objective Vital Signs: Vital Signs Temperature 98.3 F 06/01/17 09:00 Pulse Rate 74 06/01/17 09:00 Respiratory Rate 20 06/01/17 09:00 Blood Pressure 182/98 06/01/17 11:00 O2 Sat by Pulse Oximetry (%) 96 06/01/17 09:00 Constitutional: Yes: Well Nourished, Calm Eyes: Yes: WNL HENT: Yes: WNL Neck: Yes: WNL Cardiovascular: Yes: Regular Rate and Rhythm, S1, S2 Respiratory: Yes: Rhonchi (FEW RHONCHI) Gastrointestinal: Yes: Normal Bowel Sounds, Soft Extremities: Yes: WNL Edema: Yes Labs: CBC, BMP 06/01/17 05:35 06/01/17 05:35 INR, PTT INR 1.00 (0.82-1.09) 05/27/17 09:15 Problem List - Problems (1) Tobacco abuse counseling Code(s): Z71.6 - TOBACCO ABUSE COUNSELING (2) Pneumonia Code(s): J18.9 - PNEUMONIA, UNSPECIFIED ORGANISM Qualifiers: Pneumonia type: due to unspecified organism Laterality: bilateral Lung location: lower lobe of lung Qualified Code(s): J18.9 - Pneumonia, unspecified organism (3) Abdominal pain Code(s): R10.9 - UNSPECIFIED ABDOMINAL PAIN Qualifiers: (4) COPD exacerbation Code(s): J44.1 - CHRONIC OBSTRUCTIVE PULMONARY DISEASE W (ACUTE) EXACERBATION (5) Diarrhea Code(s): R19.7 - DIARRHEA, UNSPECIFIED Qualifiers: Diarrhea type: infectious Qualified Code(s): A09 - Infectious gastroenteritis and colitis, unspecified (6) Hyperglycemia Code(s): R73.9 - HYPERGLYCEMIA, UNSPECIFIED (7) Tobacco abuse Code(s): Z72.0 - TOBACCO USE (8) Type 2 diabetes mellitus with diabetic neuropathy, unspecified Code(s): E11.40 - TYPE 2 DIABETES MELLITUS WITH DIABETIC NEUROPATHY, UNSP (9) Bipolar II disorder Code(s): F31.81 - BIPOLAR II DISORDER (10) Diabetes mellitus Code(s): E11.9 - TYPE 2 DIABETES MELLITUS WITHOUT COMPLICATIONS Qualifiers: (11) Hepatitis C Code(s): B19.20 - UNSPECIFIED VIRAL HEPATITIS C WITHOUT HEPATIC COMA Qualifiers: Viral hepatitis chronicity: unspecified Hepatic coma status: without hepatic coma Qualified Code(s): B19.20 - Unspecified viral hepatitis C without hepatic coma (12) Nicotine dependence Code(s): F17.200 - NICOTINE DEPENDENCE, UNSPECIFIED, UNCOMPLICATED (13) ASHD (arteriosclerotic heart disease) Code(s): I25.10 - ATHSCL HEART DISEASE OF [place] CORONARY ARTERY W/O ANG PCTRS Assessment/Plan PULMONARY IMP BILATERAL PNEUMONIA HCAP COPD EXACERBATION COLITIS ASHD S/P STENT ABDOMINAL PAIN CHF HEP C DM BIPOLAR H/O SUBSTANCE TOBACCO ABUSE SUSPECTED DB HEMOPTYSIS PLAN IV ANTIBIOTICS INHALED BRONCHODILATORS IV STEROIDS O2 NICODERM PATCH SLEEP SCREEN PFTS OUTPATIENT SMOKING CESSATION COUNSELED QUANTIFY HEMOPTYSIS DR PERDUE Problem List - Problems (1) Tobacco abuse counseling Code(s): Z71.6 - TOBACCO ABUSE COUNSELING (2) Pneumonia Code(s): J18.9 - PNEUMONIA, UNSPECIFIED ORGANISM Qualifiers: Pneumonia type: due to unspecified organism Laterality: bilateral Lung location: lower lobe of lung Qualified Code(s): J18.9 - Pneumonia, unspecified organism (3) Abdominal pain Code(s): R10.9 - UNSPECIFIED ABDOMINAL PAIN Qualifiers: (4) COPD exacerbation Code(s): J44.1 - CHRONIC OBSTRUCTIVE PULMONARY DISEASE W (ACUTE) EXACERBATION (5) Diarrhea Code(s): R19.7 - DIARRHEA, UNSPECIFIED Qualifiers: Diarrhea type: infectious Qualified Code(s): A09 - Infectious gastroenteritis and colitis, unspecified (6) Hyperglycemia Code(s): R73.9 - HYPERGLYCEMIA, UNSPECIFIED (7) Tobacco abuse Code(s): Z72.0 - TOBACCO USE (8) Type 2 diabetes mellitus with diabetic neuropathy, unspecified Code(s): E11.40 - TYPE 2 DIABETES MELLITUS WITH DIABETIC NEUROPATHY, UNSP (9) Bipolar II disorder Code(s): F31.81 - BIPOLAR II DISORDER (10) Diabetes mellitus Code(s): E11.9 - TYPE 2 DIABETES MELLITUS WITHOUT COMPLICATIONS Qualifiers: (11) Hepatitis C Code(s): B19.20 - UNSPECIFIED VIRAL HEPATITIS C WITHOUT HEPATIC COMA Qualifiers: Viral hepatitis chronicity: unspecified Hepatic coma status: without hepatic coma Qualified Code(s): B19.20 - Unspecified viral hepatitis C without hepatic coma (12) Nicotine dependence Code(s): F17.200 - NICOTINE DEPENDENCE, UNSPECIFIED, UNCOMPLICATED (13) ASHD (arteriosclerotic heart disease) Code(s): I25.10 - ATHSCL HEART DISEASE OF [place] CORONARY ARTERY W/O ANG PCTRS
[2017-06-01] MEDS ORDERED: predniSONE 20 MG TABLET (UD) PO ONE (15:17)
[2017-06-01] MEDS ORDERED: ALPRAZolam 0.25 MG TABLET PO ONE (15:18)
--- NOTE | 2017-06-01 15:51 | PN ---
Progress Note, Physician History of Present Illness: stable still c/o of hemoptysis cannot keep anything in the stomach - Current Medication List Current Medications: Active Medications Acetaminophen (Tylenol -) 650 mg PO Q6H PRN PRN Reason: PAIN Last Admin: 06/01/17 01:33 Dose: 650 mg Albuterol/Ipratropium (Duoneb -) 1 amp NEB RQID [facility] Last Admin: 06/01/17 12:30 Dose: 1 amp Alprazolam (Xanax -) 1 mg PO Q8H PRN PRN Reason: ANXIETY Last Admin: 06/01/17 08:39 Dose: 1 mg Aspirin (Ecotrin -) 81 mg PO DAILY [facility] Last Admin: 06/01/17 09:03 Dose: 81 mg Diltiazem HCl (Cardizem Cd -) 120 mg PO DAILY [facility] Last Admin: 06/01/17 09:02 Dose: 120 mg Duloxetine HCl (Cymbalta -) 60 mg PO DAILY [facility] Last Admin: 06/01/17 09:02 Dose: 60 mg Gabapentin (Neurontin -) 300 mg PO TID [facility] Last Admin: 06/01/17 13:12 Dose: 300 mg Heparin Sodium (Porcine) (Heparin -) 5,000 unit SQ BID [facility] Last Admin: 06/01/17 09:03 Dose: Not Given Hydralazine HCl (Apresoline -) 25 mg PO BID [facility] Piperacillin Sod/Tazobactam (Sod 3.375 gm/ Dextrose) 50 mls @ 100 mls/hr IVPB Q8H-IV [facility] Last Admin: 06/01/17 09:03 Dose: 100 mls/hr Insulin Aspart (Novolog Vial Sliding Scale -) 1 vial SQ ACHS [facility] PRN Reason: Protocol Last Admin: 06/01/17 11:40 Dose: 8 units Insulin Detemir (Levemir Vial) 20 units SQ HS [facility] Last Admin: 05/31/17 22:51 Dose: 20 units Lactobacillus Acidophilus (Bacid -) 1 tab PO DAILY [facility] Last Admin: 06/01/17 09:02 Dose: 1 tab Levetiracetam (Keppra -) 1,000 mg PO BID [facility] Last Admin: 06/01/17 09:02 Dose: 1,000 mg Lisinopril (Prinivil) 20 mg PO DAILY [facility] Last Admin: 06/01/17 09:02 Dose: 20 mg Methylnaltrexone [place] (Relistor -) 12 mg SQ Q2D@1000 [facility] Last Admin: 06/01/17 09:01 Dose: 12 mg Metoclopramide HCl (Reglan -) 10 mg PO TIDAC [facility] Last Admin: 06/01/17 11:23 Dose: 10 mg Metronidazole (Flagyl -) 250 mg PO TID [facility] Last Admin: 06/01/17 13:12 Dose: 250 mg Montelukast Sodium (Singulair -) 10 mg PO HS [facility] Last Admin: 05/31/17 21:19 Dose: 10 mg Nicotine (Nicoderm Patch -) 7 mg TD DAILY [facility] Last Admin: 06/01/17 09:01 Dose: 7 mg Oxycodone HCl (Roxicodone -) 10 mg PO Q6H PRN PRN Reason: PAIN LEVEL 7 - 10 Last Admin: 06/01/17 01:34 Dose: 10 mg Pancrelipase (Creon Dr 36,000 Units Capsule) 1 cap PO TIDCM [facility] Last Admin: 06/01/17 11:24 Dose: 1 cap Pantoprazole Sodium (Protonix -) 40 mg PO DAILY [facility] Prednisone (Deltasone -) 40 mg PO DAILY [facility] Zolpidem Tartrate (Ambien -) 10 mg PO HS PRN PRN Reason: INSOMNIA Last Admin: 05/29/17 00:07 Dose: 10 mg - Objective Vital Signs: Vital Signs Temperature 98.2 F 06/01/17 13:45 Pulse Rate 83 06/01/17 13:45 Respiratory Rate 15 06/01/17 13:45 Blood Pressure 170/116 06/01/17 13:45 O2 Sat by Pulse Oximetry (%) 96 06/01/17 09:00 Constitutional: Yes: No Distress, Calm Cardiovascular: Yes: S1, S2 Respiratory: Yes: Regular, CTA Bilaterally Gastrointestinal: Yes: Normal Bowel Sounds, Soft Musculoskeletal: Yes: WNL Extremities: Yes: WNL Neurological: Yes: Alert, Oriented Psychiatric: Yes: Alert, Oriented Labs: CBC, BMP 06/01/17 05:35 06/01/17 05:35 INR, PTT INR 1.00 (0.82-1.09) 05/27/17 09:15 Assessment/Plan Problem List - Problems (1) Pneumonia Code(s): J18.9 - PNEUMONIA, UNSPECIFIED ORGANISM Qualifiers: Pneumonia type: due to unspecified organism Laterality: bilateral Lung location: lower lobe of lung Qualified Code(s): J18.9 - Pneumonia, unspecified organism (2) Abdominal pain Code(s): R10.9 - UNSPECIFIED ABDOMINAL PAIN Qualifiers: (3) CAD (coronary artery disease) Code(s): I25.10 - ATHSCL HEART DISEASE OF [place] CORONARY ARTERY W/O ANG PCTRS (4) COPD (chronic obstructive pulmonary disease) Code(s): J44.9 - CHRONIC OBSTRUCTIVE PULMONARY DISEASE, UNSPECIFIED (5) Diabetes mellitus Code(s): E11.9 - TYPE 2 DIABETES MELLITUS WITHOUT COMPLICATIONS Qualifiers: (6) Diabetes type 2, controlled Code(s): E11.9 - TYPE 2 DIABETES MELLITUS WITHOUT COMPLICATIONS (7) Hypertension Code(s): I10 - ESSENTIAL (PRIMARY) HYPERTENSION (8) Nicotine dependence Code(s): F17.200 - NICOTINE DEPENDENCE, UNSPECIFIED, UNCOMPLICATED plan continue abx incentive varsha after 5 days will stop abx rest continue current mgmt
[2017-06-01] MEDS: INSULIN DETEMIR 100 UNITS/ML MDV SQ SCH (21:15)
[2017-06-01] MEDS: MONTELUKAST NA 10 MG TABLET PO SCH (21:17)
[2017-06-01] MEDS: hydrALAZINE HCL 25 MG TABLET (FP) PO SCH (21:17)
[2017-06-02] MEDS ORDERED: LISINOPRIL 10 MG TABLET (FP) PO ONE (00:37)
[2017-06-02] MEDS ORDERED: PT OWN MED DRAWER 7, Y5N ONE ×5 (00:52→16:30)
[2017-06-02] MEDS: PIPERACILLIN/TAZOB 3.375 GM 3.375 GM in DEXTROSE 5%-WATER - 50 ML IVPB SCH ×2 (01:02→09:24)
[2017-06-02] MEDS ORDERED: INSULIN (NOVOLOG) ASPART 100 UNITS/ML 10ML VIAL ONE ×4 (06:16→21:05)
[2017-06-02] MEDS: metroNIDAZOLE 250 MG TABLET PO SCH ×3 (06:20→21:17)
[2017-06-02] MEDS: GABAPENTIN 300 MG CAPSULE (FP) PO SCH ×3 (06:20→21:18)
[2017-06-02] MEDS: METOCLOPRAMIDE HCL 10 MG TABLET (FP) PO SCH ×3 (06:20→16:43)
[2017-06-02] MEDS: INSULIN SLIDING SCALE (NOVOLOG) 1 VIAL SQ SCH ×4 (06:21→21:19)
[2017-06-02] MEDS: ALBUTEROL SO4 2.5/IPRATROPIUM 0.5 INH SOL 3 ML VIAL.NEB. NEB SCH ×4 (08:40→20:42)
[2017-06-02] MEDS: predniSONE 20 MG TABLET (UD) PO SCH (09:13)
[2017-06-02] MEDS: levETIRAcetam 500 MG TABLET (FP) PO SCH ×2 (09:13→21:17)
[2017-06-02] MEDS: PANTOPRAZOLE 40 MG TABLET (FP) PO SCH (09:13)
[2017-06-02] MEDS: hydrALAZINE HCL 25 MG TABLET (FP) PO SCH ×2 (09:13→21:17)
[2017-06-02] MEDS: ASPIRIN COATED 81 MG TABLET.EC PO SCH (09:14)
[2017-06-02] MEDS: DULoxetine HCL 30 MG CAPSULE.DR (FP) PO SCH (09:14)
[2017-06-02] MEDS: LISINOPRIL 20 MG TABLET (FP) PO SCH (09:14)
[2017-06-02] MEDS: LIPASE/PROTEASE/AMYLASE 36,000 UNIT CAPSULE PO SCH ×3 (09:16→16:48)
[2017-06-02] MEDS: HEPARIN NA (PORCINE) 5,000 UNITS/ML 1ML VIAL SQ SCH ×2 (09:25→21:18)
[2017-06-02] MEDS: oxyCODONE HCL 5 MG TABLET PO PRN (11:22)
[2017-06-02] MEDS: LACTOBACILLUS ACIDOPHILUS 1 EACH TAB (FP) PO SCH (11:22)
--- NOTE | 2017-06-02 11:36 | PN ---
Progress Note, Physician Chief Complaint: AWAKE ALERT C/O NUMBNESS TINGLING ARMS HEADACHE - Current Medication List Current Medications: Active Medications Acetaminophen (Tylenol -) 650 mg PO Q6H PRN PRN Reason: PAIN Last Admin: 06/01/17 17:00 Dose: 650 mg Albuterol/Ipratropium (Duoneb -) 1 amp NEB RQID [facility] Last Admin: 06/02/17 08:40 Dose: Not Given Alprazolam (Xanax -) 1 mg PO Q8H PRN PRN Reason: ANXIETY Last Admin: 06/01/17 08:39 Dose: 1 mg Aspirin (Ecotrin -) 81 mg PO DAILY [facility] Last Admin: 06/02/17 09:14 Dose: 81 mg Clonidine (Catapres -) 0.1 mg PO BID [facility] Diltiazem HCl (Cardizem Cd -) 120 mg PO DAILY [facility] Last Admin: 06/02/17 09:14 Dose: 120 mg Duloxetine HCl (Cymbalta -) 60 mg PO DAILY [facility] Last Admin: 06/02/17 09:14 Dose: 60 mg Gabapentin (Neurontin -) 300 mg PO TID [facility] Last Admin: 06/02/17 06:20 Dose: 300 mg Heparin Sodium (Porcine) (Heparin -) 5,000 unit SQ BID [facility] Last Admin: 06/02/17 09:25 Dose: 5,000 unit Hydralazine HCl (Apresoline -) 25 mg PO BID [facility] Last Admin: 06/02/17 09:13 Dose: 25 mg Insulin Aspart (Novolog Vial Sliding Scale -) 1 vial SQ ACHS [facility] PRN Reason: Protocol Last Admin: 06/02/17 06:21 Dose: 6 units Insulin Detemir (Levemir Vial) 20 units SQ HS [facility] Last Admin: 06/01/17 21:15 Dose: 20 units Lactobacillus Acidophilus (Bacid -) 1 tab PO DAILY [facility] Last Admin: 06/02/17 11:22 Dose: 1 tab Levetiracetam (Keppra -) 1,000 mg PO BID [facility] Last Admin: 06/02/17 09:13 Dose: 1,000 mg Lisinopril (Prinivil) 20 mg PO DAILY [facility] Last Admin: 06/02/17 09:14 Dose: 20 mg Methylnaltrexone [place] (Relistor -) 12 mg SQ Q2D@1000 [facility] Last Admin: 06/01/17 09:01 Dose: 12 mg Metoclopramide HCl (Reglan -) 10 mg PO TIDAC [facility] Last Admin: 06/02/17 11:22 Dose: 10 mg Metronidazole (Flagyl -) 250 mg PO TID [facility] Last Admin: 06/02/17 06:20 Dose: 250 mg Montelukast Sodium (Singulair -) 10 mg PO HS [facility] Last Admin: 06/01/17 21:17 Dose: 10 mg Nicotine (Nicoderm Patch -) 7 mg TD DAILY [facility] Last Admin: 06/01/17 09:01 Dose: 7 mg Oxycodone HCl (Roxicodone -) 10 mg PO Q6H PRN PRN Reason: PAIN LEVEL 7 - 10 Last Admin: 06/02/17 11:22 Dose: 10 mg Pancrelipase (Creon Dr 36,000 Units Capsule) 1 cap PO TIDCM [facility] Last Admin: 06/02/17 09:16 Dose: 1 cap Pantoprazole Sodium (Protonix -) 40 mg PO DAILY [facility] Last Admin: 06/02/17 09:13 Dose: 40 mg Prednisone (Deltasone -) 40 mg PO DAILY [facility] Last Admin: 06/02/17 09:13 Dose: 40 mg Zolpidem Tartrate (Ambien -) 10 mg PO HS PRN PRN Reason: INSOMNIA Last Admin: 05/29/17 00:07 Dose: 10 mg - Objective Vital Signs: Vital Signs Temperature 98.2 F 06/02/17 09:26 Pulse Rate 77 06/02/17 09:26 Respiratory Rate 20 06/02/17 09:26 Blood Pressure 189/104 06/02/17 10:00 O2 Sat by Pulse Oximetry (%) 94 L 06/02/17 09:00 Constitutional: Yes: Mild Distress Eyes: Yes: WNL HENT: Yes: WNL Neck: Yes: WNL Cardiovascular: Yes: WNL Respiratory: Yes: Cough, On Nasal O2, Wheezes Gastrointestinal: Yes: WNL Genitourinary: Yes: WNL Musculoskeletal: Yes: WNL Extremities: Yes: WNL Edema: Yes Integumentary: Yes: WNL Wound/Incision: Yes: Clean/Dry Neurological: Yes: Numbness, Paresthesia ...Motor Strength: LLE, RLE Psychiatric: Yes: Other Labs: CBC, BMP 06/01/17 05:35 06/01/17 05:35 INR, PTT INR 1.00 (0.82-1.09) 05/27/17 09:15 Problem List - Problems (1) Pneumonia Code(s): J18.9 - PNEUMONIA, UNSPECIFIED ORGANISM Qualifiers: Qualified Code(s): J18.9 - Pneumonia, unspecified organism (2) Abdominal pain Code(s): R10.9 - UNSPECIFIED ABDOMINAL PAIN Qualifiers: (3) CAD (coronary artery disease) Code(s): I25.10 - ATHSCL HEART DISEASE OF [place] CORONARY ARTERY W/O ANG PCTRS (4) COPD (chronic obstructive pulmonary disease) Code(s): J44.9 - CHRONIC OBSTRUCTIVE PULMONARY DISEASE, UNSPECIFIED (5) Diabetes mellitus Code(s): E11.9 - TYPE 2 DIABETES MELLITUS WITHOUT COMPLICATIONS Qualifiers: (6) Diabetes type 2, controlled Code(s): E11.9 - TYPE 2 DIABETES MELLITUS WITHOUT COMPLICATIONS (7) Hypertension Code(s): I10 - ESSENTIAL (PRIMARY) HYPERTENSION (8) Nicotine dependence Code(s): F17.200 - NICOTINE DEPENDENCE, UNSPECIFIED, UNCOMPLICATED (9) Diabetic gastroparesis Code(s): E11.43 - TYPE 2 DIABETES W DIABETIC AUTONOMIC (POLY)NEUROPATHY; K31.84 - GASTROPARESIS (10) Neuropathy Code(s): G62.9 - POLYNEUROPATHY, UNSPECIFIED (11) Hemoptysis, unspecified Code(s): R04.2 - HEMOPTYSIS Assessment/Plan CT HEAD NOW START CLONINDINE 0.1MG BID CARDIOLOGY AND NEURO EVAL 02 SUPPORT PAIN CONTROL
--- NOTE | 2017-06-02 11:36 | PN ---
Progress Note, Physician Chief Complaint: congested cough History of Present Illness: reviewed - Current Medication List Current Medications: Active Medications Acetaminophen (Tylenol -) 650 mg PO Q6H PRN PRN Reason: PAIN Last Admin: 06/01/17 17:00 Dose: 650 mg Albuterol/Ipratropium (Duoneb -) 1 amp NEB RQID [facility] Last Admin: 06/02/17 08:40 Dose: Not Given Alprazolam (Xanax -) 1 mg PO Q8H PRN PRN Reason: ANXIETY Last Admin: 06/01/17 08:39 Dose: 1 mg Aspirin (Ecotrin -) 81 mg PO DAILY [facility] Last Admin: 06/02/17 09:14 Dose: 81 mg Diltiazem HCl (Cardizem Cd -) 120 mg PO DAILY [facility] Last Admin: 06/02/17 09:14 Dose: 120 mg Duloxetine HCl (Cymbalta -) 60 mg PO DAILY [facility] Last Admin: 06/02/17 09:14 Dose: 60 mg Gabapentin (Neurontin -) 300 mg PO TID [facility] Last Admin: 06/02/17 06:20 Dose: 300 mg Heparin Sodium (Porcine) (Heparin -) 5,000 unit SQ BID [facility] Last Admin: 06/02/17 09:25 Dose: 5,000 unit Hydralazine HCl (Apresoline -) 25 mg PO BID [facility] Last Admin: 06/02/17 09:13 Dose: 25 mg Piperacillin Sod/Tazobactam (Sod 3.375 gm/ Dextrose) 50 mls @ 100 mls/hr IVPB Q8H-IV [facility] Last Admin: 06/02/17 09:24 Dose: 100 mls/hr Insulin Aspart (Novolog Vial Sliding Scale -) 1 vial SQ ACHS [facility] PRN Reason: Protocol Last Admin: 06/02/17 06:21 Dose: 6 units Insulin Detemir (Levemir Vial) 20 units SQ HS [facility] Last Admin: 06/01/17 21:15 Dose: 20 units Lactobacillus Acidophilus (Bacid -) 1 tab PO DAILY [facility] Last Admin: 06/02/17 11:22 Dose: 1 tab Levetiracetam (Keppra -) 1,000 mg PO BID [facility] Last Admin: 06/02/17 09:13 Dose: 1,000 mg Lisinopril (Prinivil) 20 mg PO DAILY [facility] Last Admin: 06/02/17 09:14 Dose: 20 mg Methylnaltrexone [place] (Relistor -) 12 mg SQ Q2D@1000 [facility] Last Admin: 06/01/17 09:01 Dose: 12 mg Metoclopramide HCl (Reglan -) 10 mg PO TIDAC [facility] Last Admin: 06/02/17 11:22 Dose: 10 mg Metronidazole (Flagyl -) 250 mg PO TID [facility] Last Admin: 06/02/17 06:20 Dose: 250 mg Montelukast Sodium (Singulair -) 10 mg PO HS [facility] Last Admin: 06/01/17 21:17 Dose: 10 mg Nicotine (Nicoderm Patch -) 7 mg TD DAILY [facility] Last Admin: 06/01/17 09:01 Dose: 7 mg Oxycodone HCl (Roxicodone -) 10 mg PO Q6H PRN PRN Reason: PAIN LEVEL 7 - 10 Last Admin: 06/02/17 11:22 Dose: 10 mg Pancrelipase (Creon Dr 36,000 Units Capsule) 1 cap PO TIDCM [facility] Last Admin: 06/02/17 09:16 Dose: 1 cap Pantoprazole Sodium (Protonix -) 40 mg PO DAILY [facility] Last Admin: 06/02/17 09:13 Dose: 40 mg Prednisone (Deltasone -) 40 mg PO DAILY [facility] Last Admin: 06/02/17 09:13 Dose: 40 mg Zolpidem Tartrate (Ambien -) 10 mg PO HS PRN PRN Reason: INSOMNIA Last Admin: 05/29/17 00:07 Dose: 10 mg - Objective Vital Signs: Vital Signs Temperature 98.2 F 06/02/17 09:26 Pulse Rate 77 06/02/17 09:26 Respiratory Rate 20 06/02/17 09:26 Blood Pressure 189/104 06/02/17 10:00 O2 Sat by Pulse Oximetry (%) 94 L 06/02/17 09:00 Constitutional: Yes: Anxious Eyes: Yes: EOM Intact HENT: Yes: Normocephalic Neck: Yes: Trachea Midline Cardiovascular: Yes: Regular Rate and Rhythm, S1, S2 Respiratory: Yes: Rhonchi (mild bilaterally), Wheezes Gastrointestinal: Yes: Normal Bowel Sounds Edema: No Neurological: Yes: Alert Psychiatric: Yes: Alert Labs: CBC, BMP 06/01/17 05:35 06/01/17 05:35 INR, PTT INR 1.00 (0.82-1.09) 05/27/17 09:15 rest reviewed - ....Imaging Chest X-ray: Report Reviewed, Image Reviewed Cat Scan: Report Reviewed, Image Reviewed Problem List - Problems (1) ASHD (arteriosclerotic heart disease) Code(s): I25.10 - ATHSCL HEART DISEASE OF [place] CORONARY ARTERY W/O ANG PCTRS (2) Diabetic gastroparesis Code(s): E11.43 - TYPE 2 DIABETES W DIABETIC AUTONOMIC (POLY)NEUROPATHY; K31.84 - GASTROPARESIS (3) Hemoptysis, unspecified Code(s): R04.2 - HEMOPTYSIS (4) Pneumonia Code(s): J18.9 - PNEUMONIA, UNSPECIFIED ORGANISM Qualifiers: Pneumonia type: due to unspecified organism Laterality: bilateral Lung location: lower lobe of lung Qualified Code(s): J18.9 - Pneumonia, unspecified organism (5) Tobacco abuse counseling Code(s): Z71.6 - TOBACCO ABUSE COUNSELING Assessment/Plan IMP BILATERAL PNEUMONIA HCAP COPD EXACERBATION COLITIS ASHD S/P STENT ABDOMINAL PAIN CHF HEP C DM BIPOLAR H/O SUBSTANCE TOBACCO ABUSE SUSPECTED DB HEMOPTYSIS PLAN IV ANTIBIOTICS INHALED BRONCHODILATORS IV STEROIDS O2 NICODERM PATCH SLEEP SCREEN PFTS OUTPATIENT SMOKING CESSATION COUNSELED QUANTIFY HEMOPTYSIS Carey HACKETT MD
[2017-06-02] MEDS: cloNIDine HCL 0.1 MG TABLET PO SCH ×2 (11:52→21:17)
--- NOTE | 2017-06-02 15:06 | PN ---
Progress Note, Physician History of Present Illness: c/o headache tingling of the rt arm no dirrhoea - Current Medication List Current Medications: Active Medications Acetaminophen (Tylenol -) 650 mg PO Q6H PRN PRN Reason: PAIN Last Admin: 06/01/17 17:00 Dose: 650 mg Albuterol/Ipratropium (Duoneb -) 1 amp NEB RQID [facility] Last Admin: 06/02/17 11:10 Dose: 1 amp Alprazolam (Xanax -) 1 mg PO Q8H PRN PRN Reason: ANXIETY Last Admin: 06/01/17 08:39 Dose: 1 mg Aspirin (Ecotrin -) 81 mg PO DAILY [facility] Last Admin: 06/02/17 09:14 Dose: 81 mg Clonidine (Catapres -) 0.1 mg PO BID [facility] Last Admin: 06/02/17 11:52 Dose: 0.1 mg Diltiazem HCl (Cardizem Cd -) 120 mg PO DAILY [facility] Last Admin: 06/02/17 09:14 Dose: 120 mg Duloxetine HCl (Cymbalta -) 60 mg PO DAILY [facility] Last Admin: 06/02/17 09:14 Dose: 60 mg Gabapentin (Neurontin -) 300 mg PO TID [facility] Last Admin: 06/02/17 13:02 Dose: 300 mg Heparin Sodium (Porcine) (Heparin -) 5,000 unit SQ BID [facility] Last Admin: 06/02/17 09:25 Dose: 5,000 unit Hydralazine HCl (Apresoline -) 25 mg PO BID [facility] Last Admin: 06/02/17 09:13 Dose: 25 mg Insulin Aspart (Novolog Vial Sliding Scale -) 1 vial SQ [facility] PRN Reason: Protocol Last Admin: 06/02/17 11:51 Dose: 8 units Insulin Detemir (Levemir Vial) 20 units SQ HS [facility] Last Admin: 06/01/17 21:15 Dose: 20 units Lactobacillus Acidophilus (Bacid -) 1 tab PO DAILY [facility] Last Admin: 06/02/17 11:22 Dose: 1 tab Levetiracetam (Keppra -) 1,000 mg PO BID [facility] Last Admin: 06/02/17 09:13 Dose: 1,000 mg Lisinopril (Prinivil) 20 mg PO DAILY [facility] Last Admin: 06/02/17 09:14 Dose: 20 mg Methylnaltrexone Garber (Relistor -) 12 mg SQ Q2D@1000 [facility] Last Admin: 06/01/17 09:01 Dose: 12 mg Metoclopramide HCl (Reglan -) 10 mg PO TIDAC [facility] Last Admin: 06/02/17 11:22 Dose: 10 mg Metronidazole (Flagyl -) 250 mg PO TID [facility] Last Admin: 06/02/17 13:02 Dose: 250 mg Montelukast Sodium (Singulair -) 10 mg PO HS [facility] Last Admin: 06/01/17 21:17 Dose: 10 mg Nicotine (Nicoderm Patch -) 7 mg TD DAILY [facility] Last Admin: 06/01/17 09:01 Dose: 7 mg Oxycodone HCl (Roxicodone -) 10 mg PO Q6H PRN PRN Reason: PAIN LEVEL 7 - 10 Last Admin: 06/02/17 11:22 Dose: 10 mg Pancrelipase (Creon Dr 36,000 Units Capsule) 1 cap PO TIDCM [facility] Last Admin: 06/02/17 11:52 Dose: 1 cap Pantoprazole Sodium (Protonix -) 40 mg PO DAILY [facility] Last Admin: 06/02/17 09:13 Dose: 40 mg Prednisone (Deltasone -) 40 mg PO DAILY [facility] Last Admin: 06/02/17 09:13 Dose: 40 mg Zolpidem Tartrate (Ambien -) 10 mg PO HS PRN PRN Reason: INSOMNIA Last Admin: 05/29/17 00:07 Dose: 10 mg - Objective Vital Signs: Vital Signs Temperature 98.2 F 06/02/17 09:26 Pulse Rate 77 06/02/17 09:26 Respiratory Rate 20 06/02/17 09:26 Blood Pressure 189/104 06/02/17 10:00 O2 Sat by Pulse Oximetry (%) 94 L 06/02/17 09:00 Constitutional: Yes: No Distress, Calm Cardiovascular: Yes: S1, S2 Respiratory: Yes: Regular, CTA Bilaterally Gastrointestinal: Yes: Normal Bowel Sounds, Soft Musculoskeletal: Yes: WNL Extremities: Yes: WNL Neurological: Yes: Alert, Tingling (rt arm), Other (headaches) Psychiatric: Yes: Alert, Oriented Labs: CBC, BMP 06/01/17 05:35 06/01/17 05:35 INR, PTT INR 1.00 (0.82-1.09) 05/27/17 09:15 - ....Imaging Cat Scan: Report Reviewed, Image Reviewed Assessment/Plan Problem List - Problems (1) Pneumonia Code(s): J18.9 - PNEUMONIA, UNSPECIFIED ORGANISM Qualifiers: Pneumonia type: due to unspecified organism Laterality: bilateral Lung location: lower lobe of lung Qualified Code(s): J18.9 - Pneumonia, unspecified organism (2) Abdominal pain Code(s): R10.9 - UNSPECIFIED ABDOMINAL PAIN Qualifiers: (3) CAD (coronary artery disease) Code(s): I25.10 - ATHSCL HEART DISEASE OF [place] CORONARY ARTERY W/O ANG PCTRS (4) COPD (chronic obstructive pulmonary disease) Code(s): J44.9 - CHRONIC OBSTRUCTIVE PULMONARY DISEASE, UNSPECIFIED (5) Diabetes mellitus Code(s): E11.9 - TYPE 2 DIABETES MELLITUS WITHOUT COMPLICATIONS Qualifiers: (6) Diabetes type 2, controlled Code(s): E11.9 - TYPE 2 DIABETES MELLITUS WITHOUT COMPLICATIONS (7) Hypertension Code(s): I10 - ESSENTIAL (PRIMARY) HYPERTENSION (8) Nicotine dependence Code(s): F17.200 - NICOTINE DEPENDENCE, UNSPECIFIED, UNCOMPLICATED plan off of abx consider stopping flagyl
[2017-06-02] MEDS: NICOTINE 7 MG/24 HOURS TOPICAL PATCH TD SCH (15:22)
--- NOTE | 2017-06-02 15:27 | CON.CARD ---
Consult Consult Specialty:: Cardiology Referred by:: Dr Medina Reason for Consultation:: Hypertension - History of Present Illness Chief Complaint: abd and back pain History of Present Illness: She is a 56 y.o. F with a history of c. diff colitis, DM, HTN, previous IVDA, smoker x many years, CAD s/p stent unk vessel, CHF who was admitted with abdmoinal pain/diarrhea back pain and found also with hyponatremia, CKD and pneumonia. Now noted with hypertension. No chest pain, orthopnea, PND or edema. Exercise tolerance is very poor. - History Source History Provided By: Patient, Medical Record Limitations to Obtaining History: No Limitations - Past Medical History [employer]: Yes: CVA (? pt thinks she may have had one in the past (L facial droop)), Seizure. No: Alzheimer's Cardio/Vascular: Yes: CAD, HTN. No: AFIB Pulmonary: Yes: Asthma, COPD Gastrointestinal: Yes: Hiatal Hernia, Other ("colitis" mid-April) Hepatobiliary: Yes: Hepatitis C (from a blood transfusion) Infectious Disease: Yes: MRSA (R thigh abscess 02/26) Psych: Yes: Addictions, Anxiety, Bipolar, Depression Musculoskeletal: Yes: Chronic low back pain Endocrine: Yes: Diabetes Mellitus - Past Surgical History Past Surgical History: Yes: Appendectomy, Cholecystectomy (laparoscopic), Colonoscopy, Hysterectomy (vaginal) - Alcohol/Substance Use Hx Alcohol Use: No History of Substance Use: reports: Cocaine (crack) - Smoking History Smoking history: Never smoked Have you smoked in the past 12 months: No Aproximately how many cigarettes per day: 20 - Social History Usual Living Arrangement: With Spouse Occupation: disabled History of Recent Travel: No Home Medications - Allergies Allergies/Adverse Reactions: Allergies Allergy/AdvReac Type Severity Reaction Status Date / Time No Known Allergies Allergy Verified 05/25/17 12:56 - Home Medications Home Medications: Ambulatory Orders Albuterol Sulfate Inhaler - [Ventolin HFA Inhaler -] 2 inh PO Q4H PRN 11/06/14 Famotidine [Pepcid -] 40 mg PO DAILY 12/21/14 Tiotropium [place] [Spiriva] 18 mcg IH DAILY 12/21/14 Alprazolam [Xanax] 1 mg PO TID 07/13/16 Aspirin Coated [Ecotrin -] 81 mg PO DAILY #30 tab 07/22/16 Diltiazem Cd [Cardizem Cd -] 120 mg PO DAILY #30 cap 07/22/16 Lisinopril [Prinivil] 20 mg PO DAILY #30 tablet 07/22/16 Montelukast Na [Singulair -] 10 mg PO HS #30 tablet 07/22/16 levETIRAcetam [Keppra -] 500 mg PO BID tablet 07/22/16 Ascorbic Acid [Vitamin C -] 500 mg PO BID #60 tablet 02/15/17 Docusate Sodium [Colace -] 300 mg PO HS #30 cap 02/15/17 Insulin (Levemir) [Levemir Flexpen -] 20 units SQ BID #4 pen 02/15/17 Insulin (Novolog) [Novolog Flexpen -] 5 units SQ ACHS #4 pen 02/15/17 Montelukast Na [Singulair -] 10 mg PO HS #30 tablet 02/15/17 Pramipexole Dihydrochloride [Mirapex -] 0.25 mg PO HS #30 tablet 02/15/17 Salmeterol/Fluticasone [Advair 100Mcg/50Mcg -] 1 puff IH BID #1 inhaler Sennosides [Senna -] 2 tab PO HS #60 tablet 02/15/17 Zolpidem Tartrate [Ambien] 10 mg PO HS tablet MDD 1 02/15/17 metFORMIN HCL [Glucophage -] 500 mg PO BID@0700,1630 #60 tablet 02/15/17 Gabapentin [Neurontin -] 300 mg PO QID #120 capsule 05/20/17 Insulin Aspart Prot/Insuln Asp [Novolog Mix 70-30 Flexpen Syrn] 35 unit SQ BID # 1 box 05/20/17 oxyCODONE HCL [Roxicodone -] 5 mg PO Q6H #20 tablet MDD 4 05/20/17 Family Disease History - Family Disease History Family Disease History: Diabetes: Mother, Heart Disease: Father, Brother, Sister , Respiratory: Father, Other: Father, Brother, Sister Review of Systems - Review of Systems Constitutional: reports: No Symptoms Eyes: reports: No Symptoms HENT: reports: No Symptoms Neck: reports: No Symptoms Vital Signs: Vital Signs Temperature 98.4 F 06/02/17 15:15 Pulse Rate 74 02/21/18 15:15 Respiratory Rate 18 06/02/17 15:15 Blood Pressure 129/94 06/02/17 15:15 O2 Sat by Pulse Oximetry (%) 94 L 06/02/17 09:00 Constitutional: Yes: No Distress, Calm Eyes: Yes: Conjunctiva Clear, EOM Intact HENT: Yes: Atraumatic, Normocephalic Neck: Yes: Supple, Trachea Midline Respiratory: Yes: CTA Bilaterally Gastrointestinal: Yes: Normal Bowel Sounds, Abdomen, Obese Cardiovascular: Yes: Regular Rate and Rhythm JVD: No Carotid Bruit: No PMI: Non-Displaced Heart Sounds: Yes: S1, S2 Edema: No Peripheral Pulses WNL: Yes - Other Data Labs, Other Data: CBC, BMP 06/01/17 05:35 06/01/17 05:35 INR, PTT INR 1.00 (0.82-1.09) 05/27/17 09:15 Imaging - Results X-ray: Report Reviewed (connie) Cat Scan: Report Reviewed (chest bilat lower lobe infiltrates.) EKG: Report Reviewed (stach, LAE, nssttw changes.) Problem List - Problems (1) ASHD (arteriosclerotic heart disease) Assessment/Plan: Stable on medications without angina. No need for ischemia workup at this point. Code(s): I25.10 - ATHSCL HEART DISEASE OF [place] CORONARY ARTERY W/O ANG PCTRS (2) Hypertension Assessment/Plan: Blood pressure has increased over the past day, but was previously controlled. Would pursue pain control as well. Can increase hydralazine to 25 mg tid from BID. If remains high can increase dose and also increase lisinopril to 40 mg daily. No evidence of CHF on examination but would get echocardiogram. Code(s): I10 - ESSENTIAL (PRIMARY) HYPERTENSION Qualifiers: Hypertension type: essential hypertension Qualified Code(s): I10 - Essential (primary) hypertension
[2017-06-02] MEDS: MONTELUKAST NA 10 MG TABLET PO SCH (21:17)
[2017-06-02] MEDS: INSULIN DETEMIR 100 UNITS/ML MDV SQ SCH (21:18)
[2017-06-03] MEDS: metroNIDAZOLE 250 MG TABLET PO SCH (06:18)
[2017-06-03] MEDS: INSULIN SLIDING SCALE (NOVOLOG) 1 VIAL SQ SCH ×2 (06:18→11:39)
[2017-06-03] MEDS: GABAPENTIN 300 MG CAPSULE (FP) PO SCH (06:18)
[2017-06-03] MEDS: hydrALAZINE HCL 25 MG TABLET (FP) PO SCH (06:18)
[2017-06-03] MEDS: METOCLOPRAMIDE HCL 10 MG TABLET (FP) PO SCH ×2 (06:18→11:39)
[2017-06-03] MEDS: ALBUTEROL SO4 2.5/IPRATROPIUM 0.5 INH SOL 3 ML VIAL.NEB. NEB SCH ×2 (07:41→11:12)
[2017-06-03 08:14] LABS: HEMATOCRIT 45.6 % (32.4-45.2); HEMOGLOBIN 14.9 GM/dL (10.7-15.3); MCH 29.3 pg (25.7-33.7); MCHC 32.6 g/dl (32.0-36.0); MEAN CELL VOLUME 89.8 fl (80-96); MEAN PLT VOLUME 8.4 fl (7.5-11.1); PLATELET COUNT 440 K/MM3 (134-434); RBC 5.07 M/mm3 (3.60-5.2); RDW 13.2 % (11.6-15.6); WHITE BLOOD COUNT 15.3 K/mm3 (4.0-10.0)
[2017-06-03] MEDS ORDERED: PT OWN MED DRAWER 7, Y5N ONE (08:23)
[2017-06-03] MEDS: LIPASE/PROTEASE/AMYLASE 36,000 UNIT CAPSULE PO SCH ×2 (08:32→12:02)
[2017-06-03 08:34] VITALS: TEMP 98.9
[2017-06-03 08:44] LABS: ANION GAP 4 (8-16); BLOOD UREA NITROGEN 14 mg/dL (7-18); CALCIUM 8.7 mg/dL (8.5-10.1); CHLORIDE 94 mmol/L (98-107); CO2 40 mmol/L (21-32); GLUCOSE,RANDOM 95 mg/dL (74-106); POTASSIUM 3.4 mmol/L (3.5-5.1); SODIUM 138 mmol/L (136-145)
[2017-06-03 08:46] LABS: CREATININE 0.4 mg/dL (0.55-1.02)
--- NOTE | 2017-06-03 09:41 | CONSULT ---
Consult - text type - Consultation Consultation Note: Neurology History of Present Illness The patient is a 56F with a PMH of C. diff colitis, NIDDM, HTN, anxiety, depression, chronic pain, former IVDA, who presents to the ER with complaints of worsening abdominal pain and diarrhea. The patient was discharged on 05/20 for the same reason and treated with oral vanc outpatient. She stated she finished her medication but her pain got worse. She is being manged for PNA and I was consulted for parasthesias, predominantly in RUE. States it has been occuring for 3-4 days but no sign out clerk weakness. Just sensory symptoms possibly CTS, given h/ o DM could also be neuropathy. At this time, recommended wrist splint for now. If worsens can have EMG/NCS as outpatient but would pursue consverative care first. She was in agreement. Past History - Past Medical History Allergies/Adverse Reactions: Allergies Allergy/AdvReac Type Severity Reaction Status Date / Time No Known Allergies Allergy Verified 05/25/17 12:56 Home Medications: Ambulatory Orders Albuterol Sulfate Inhaler - [Ventolin HFA Inhaler -] 2 inh PO Q4H PRN 11/06/14 Famotidine [Pepcid -] 40 mg PO DAILY 12/21/14 Tiotropium [place] [Spiriva] 18 mcg IH DAILY 12/21/14 Alprazolam [Xanax] 1 mg PO TID 07/13/16 Aspirin Coated [Ecotrin -] 81 mg PO DAILY #30 tab 07/22/16 Diltiazem Cd [Cardizem Cd -] 120 mg PO DAILY #30 cap 07/22/16 Lisinopril [Prinivil] 20 mg PO DAILY #30 tablet 07/22/16 Montelukast Na [Singulair -] 10 mg PO HS #30 tablet 07/22/16 levETIRAcetam [Keppra -] 500 mg PO BID tablet 07/22/16 Ascorbic Acid [Vitamin C -] 500 mg PO BID #60 tablet 02/15/17 Docusate Sodium [Colace -] 300 mg PO HS #30 cap 02/15/17 Insulin (Levemir) [Levemir Flexpen -] 20 units SQ BID #4 pen 02/15/17 Insulin (Novolog) [Novolog Flexpen -] 5 units SQ ACHS #4 pen 02/15/17 Montelukast Na [Singulair -] 10 mg PO HS #30 tablet 02/15/17 Pramipexole Dihydrochloride [Mirapex -] 0.25 mg PO HS #30 tablet 02/15/17 Salmeterol/Fluticasone [Advair 100Mcg/50Mcg -] 1 puff IH BID #1 inhaler Sennosides [Senna -] 2 tab PO HS #60 tablet 02/15/17 Zolpidem Tartrate [Ambien] 10 mg PO HS tablet MDD 1 02/15/17 metFORMIN HCL [Glucophage -] 500 mg PO BID@0700,1630 #60 tablet 02/15/17 Gabapentin [Neurontin -] 300 mg PO QID #120 capsule 05/20/17 Insulin Aspart Prot/Insuln Asp [Novolog Mix 70-30 Flexpen Syrn] 35 unit SQ BID # 1 box 05/20/17 oxyCODONE HCL [Roxicodone -] 5 mg PO Q6H #20 tablet MDD 4 05/20/17 Anemia: No Asthma: Yes Cancer: No Cardiac Disorders: Yes (STENT X 1) CVA: No COPD: Yes CHF: Yes DVT: No Dementia: No Diabetes: Yes GI Disorders: No Disorders: No HTN: Yes Hypercholesterolemia: Yes Kidney Stones: Yes Liver Disease: Yes (cirrhosis, hep C) Psychiatric Problems: Yes (bipolar) Seizures: Yes (last episode 03/2013) Thyroid Disease: Yes - Surgical History Abdominal Surgery: No Appendectomy: Yes (age 11) Cardiac Surgery: Yes (STENT X 1) Cholecystectomy: Yes Lung Surgery: No Neurologic Surgery: No Orthopedic Surgery: Yes (lower back 02/2013) - Family Disease History Family Disease History: Diabetes: Brother, Sister, Heart Disease: Brother, Sister - Immunization History Td Vaccination: Yes Immunization Up to Date: Yes - Suicide/Smoking/Psychosocial Hx Smoking Status: Yes Smoking History: Never smoked Have you smoked in the past 12 months: Yes Number of Cigarettes Smoked Daily: 20 Information on smoking cessation initiated: No 'Breaking Loose' booklet given: 05/25/17 Hx Alcohol Use: No Drug/Substance Use Hx: No Substance Use Type: None Hx Substance Use Treatment: Yes (detox) Review of Systems GENERAL/CONSTITUTIONAL: Positive for fever. No chills. No weakness. HEAD, EYES, EARS, NOSE AND THROAT: No change in vision. No ear pain or discharge. No sore throat. CARDIOVASCULAR: No chest pain, palpitations, or lightheadedness. RESPIRATORY: No cough, wheezing, shortness of breath, or hemoptysis. GASTROINTESTINAL: Positive for abdominal pain and diarrhea. No nausea, vomiting , or constipation. GENITOURINARY: No dysuria, frequency, hematuria, or change in urination. MUSCULOSKELETAL: No joint or muscle swelling or pain. No neck or back pain. SKIN: No rash or lesions. NEUROLOGIC: No headache, numbness, tingling, weakness, loss of consciousness, or change in strength/sensation. ENDOCRINE: No increased thirst. No abnormal weight change. HEMATOLOGIC/LYMPHATIC: No anemia, easy bleeding, or history of blood clots. ALLERGIC/IMMUNOLOGIC: No hives or skin allergy. *Physical Exam Vital Signs Period Temp Pulse Resp BP Sys/Sultana Pulse Ox Last 24 Hr 97.9 F-98.9 F 62-82 16-18 129-189/69-104 94 GENERAL: Well developed, well nourished. Awake and alert. In mild distress. HEENT: Normocephalic, atraumatic. Hearing grossly normal. Moist mucous membranes. PERRLA, EOMI. No conjunctival pallor. Sclera are non-icteric. NECK: Supple. Full ROM. No JVD. CARDIOVASCULAR: Regular rate and rhythm. No murmurs, rubs, or gallops. PULMONARY: No evidence of respiratory distress. Lungs clear to auscultation bilaterally. No wheezing, rales or rhonchi. ABDOMINAL: Soft. Diffuse tenderness to deep palpation. Non-distended. No rebound or guarding. MUSCULOSKELETAL: Normal range of motion at all joints. No bony deformities or tenderness. EXTREMITIES: No cyanosis. No clubbing. No edema. No calf tenderness. SKIN: Warm and dry. Normal capillary refill. No rashes. No jaundice. NEUROLOGICAL: Alert, awake, appropriate. Cranial nerves 2-12 intact. Normal speech. PSYCHIATRIC: Somewhat cooperative. Good eye contact. Appropriate mood and affect. CBCD WBC 15.3 K/mm3 (4.0-10.0) H 06/03/17 08:00 RBC 5.07 M/mm3 (3.60-5.2) 06/03/17 08:00 Hgb 14.9 GM/dL (10.7-15.3) D 06/03/17 08:00 Hct 45.6 % (32.4-45.2) H 06/03/17 08:00 MCV 89.8 fl (80-96) 06/03/17 08:00 MCHC 32.6 g/dl (32.0-36.0) 06/03/17 08:00 RDW 13.2 % (11.6-15.6) 06/03/17 08:00 Plt Count 440 K/MM3 (134-434) H 06/03/17 08:00 MPV 8.4 fl (7.5-11.1) 06/03/17 08:00 CMP Sodium 138 mmol/L (136-145) 06/03/17 08:00 Potassium 3.4 mmol/L (3.5-5.1) L 06/03/17 08:00 Chloride 94 mmol/L (98-107) L 06/03/17 08:00 Carbon Dioxide 40 mmol/L (21-32) H 06/03/17 08:00 Anion Gap 4 (8-16) L 06/03/17 08:00 BUN 14 mg/dL (7-18) 06/03/17 08:00 Creatinine 0.4 mg/dL (0.55-1.02) L 06/03/17 08:00 Creat Clearance w eGFR > 60 (>60) 05/28/17 08:30 Calcium 8.7 mg/dL (8.5-10.1) 06/03/17 08:00 Total Bilirubin 0.7 mg/dL (0.2-1.0) D 05/28/17 08:30 AST 26 U/L (15-37) 05/28/17 08:30 ALT 44 U/L (12-78) 05/28/17 08:30 Alkaline Phosphatase 87 U/L (45-117) 05/28/17 08:30 Total Protein 7.1 g/dl (6.4-8.2) 05/28/17 08:30 Albumin 2.8 g/dl (3.4-5.0) L 05/28/17 08:30 CT abd pelvis reviewed CXR reviewed Medical Decision Making 56F with a PMH of C. diff colitis, NIDDM, HTN, anxiety, depression, chronic pain , former IVDA, who presents to the ER with complaints of worsening abdominal pain and diarrhea. The patient was discharged on 05/20 for the same reason and treated with oral vanc outpatient. She stated she finished her medication but her pain got worse. She is being manged for PNA and I was consulted for parasthesias, predominantly in RUE. States it has been occuring for 3-4 days but no sign out clerk weakness. Just sensory symptoms possibly CTS, given h/o DM could also be neuropathy.At this time, recommended wrist splint for now. If worsens can have EMG/NCS as outpatient but would pursue consverative care first. Tight glycemic control recommended. Otherwise neurologically stable at this time.
[2017-06-03] MEDS: ACETAMINOPHEN 325 MG TABLET (FP) PO PRN (10:04)
[2017-06-03] MEDS: oxyCODONE HCL 5 MG TABLET PO PRN (10:04)
[2017-06-03] MEDS: DULoxetine HCL 30 MG CAPSULE.DR (FP) PO SCH (10:06)
[2017-06-03] MEDS: LISINOPRIL 20 MG TABLET (FP) PO SCH (10:06)
[2017-06-03] MEDS: ASPIRIN COATED 81 MG TABLET.EC PO SCH (10:06)
[2017-06-03] MEDS: cloNIDine HCL 0.1 MG TABLET PO SCH (10:06)
[2017-06-03] MEDS: HEPARIN NA (PORCINE) 5,000 UNITS/ML 1ML VIAL SQ SCH (10:06)
[2017-06-03] MEDS: predniSONE 20 MG TABLET (UD) PO SCH (10:06)
[2017-06-03] MEDS: LACTOBACILLUS ACIDOPHILUS 1 EACH TAB (FP) PO SCH (10:06)
[2017-06-03] MEDS: levETIRAcetam 500 MG TABLET (FP) PO SCH (10:06)
[2017-06-03] MEDS: PANTOPRAZOLE 40 MG TABLET (FP) PO SCH (10:06)
[2017-06-03 10:17] VITALS: BP 139/72; PULSE 75
[2017-06-03] MEDS: NICOTINE 7 MG/24 HOURS TOPICAL PATCH TD SCH (10:40)
--- NOTE | 2017-06-03 11:14 | DS ---
Physical Examination Vital Signs: Vital Signs Temperature 98.9 F 06/03/17 08:33 Pulse Rate 75 06/03/17 10:00 Respiratory Rate 18 06/03/17 10:00 Blood Pressure 139/72 06/03/17 10:00 O2 Sat by Pulse Oximetry (%) 94 L 06/03/17 09:00 Findings/Remarks: AWAKE FEELING BETTER BP CONTROLLED Constitutional: Yes: No Distress Eyes: Yes: WNL HENT: Yes: WNL Neck: Yes: WNL Cardiovascular: Yes: WNL Respiratory: Yes: WNL Gastrointestinal: Yes: WNL Renal/: Yes: WNL Musculoskeletal: Yes: Back Pain Extremities: Yes: WNL Edema: No Peripheral Pulses WNL: Yes Integumentary: Yes: WNL Wound/Incision: Yes: Clean/Dry Neurological: Yes: Numbness, Pre-Existing Deficit ...Motor Strength: LLE, RLE Psychiatric: Yes: Other Labs: CBC, BMP 06/03/17 08:00 06/03/17 08:00 Discharge Summary Reason For Visit: PNEUMONIA Current Active Problems ASHD (arteriosclerotic heart disease) (Acute) Diabetic gastroparesis (Acute) Hemoptysis, unspecified (Acute) IBS (irritable bowel syndrome) (Acute) Neuropathy (Acute) Pneumonia (Acute) Tobacco abuse counseling (Acute) Procedures: Principal: CT HEAD Hospital Course: ADMITTED URI/BRONCHITIS/PNA/COLITIS/MALIGNANT HTNHEADACHE NOW CONTROLLED AND TREQATED WITH IV ABX, NEBS, PAIN CONTROL, CARDIAC WORKUP. Condition: Guarded - Instructions Diet, Activity, Other Instructions: SEE SIDDHARTHA DAILEY IN 1 WEEK LOW SODIUM ADA Referrals: Rc Pineda MD [Primary Care Provider] - Disposition: VNS/HOME HEALTH CARE - Home Medications Comprehensive Discharge Medication List: Ambulatory Orders Albuterol Sulfate Inhaler - [Ventolin HFA Inhaler -] 2 inh PO Q4H PRN 11/06/14 Famotidine [Pepcid -] 40 mg PO DAILY 12/21/14 Tiotropium [place] [Spiriva] 18 mcg IH DAILY 12/21/14 Alprazolam [Xanax] 1 mg PO TID 07/13/16 Aspirin Coated [Ecotrin -] 81 mg PO DAILY #30 tab 07/22/16 Diltiazem Cd [Cardizem Cd -] 120 mg PO DAILY #30 cap 07/22/16 Lisinopril [Prinivil] 20 mg PO DAILY #30 tablet 07/22/16 Montelukast Na [Singulair -] 10 mg PO HS #30 tablet 07/22/16 levETIRAcetam [Keppra -] 500 mg PO BID tablet 07/22/16 Ascorbic Acid [Vitamin C -] 500 mg PO BID #60 tablet 02/15/17 Docusate Sodium [Colace -] 300 mg PO HS #30 cap 02/15/17 Insulin (Levemir) [Levemir Flexpen -] 20 units SQ BID #4 pen 02/15/17 Insulin (Novolog) [Novolog Flexpen -] 5 units SQ ACHS #4 pen 02/15/17 Montelukast Na [Singulair -] 10 mg PO HS #30 tablet 02/15/17 Salmeterol/Fluticasone [Advair 100Mcg/50Mcg -] 1 puff IH BID #1 inhaler Sennosides [Senna -] 2 tab PO HS #60 tablet 02/15/17 Zolpidem Tartrate [Ambien] 10 mg PO HS tablet MDD 1 02/15/17 metFORMIN HCL [Glucophage -] 500 mg PO BID@0700,1630 #60 tablet 02/15/17 Gabapentin [Neurontin -] 300 mg PO QID #120 capsule 05/20/17 oxyCODONE HCL [Roxicodone -] 5 mg PO Q6H #20 tablet MDD 4 05/20/17 Acetaminophen [Tylenol .Regular Strength -] 650 mg PO Q6H PRN tablet 06/03/17 Albuterol 2.5/Ipratropium 0.5 [Duoneb -] 1 amp NEB RQID #90 amp 06/03/17 Alprazolam [Xanax] 1 mg PO Q8H PRN tablet MDD 3 06/03/17 Aspirin Coated [Ecotrin -] 81 mg PO DAILY #30 tablet.ec 06/03/17 Diltiazem Cd [Cardizem Cd -] 120 mg PO DAILY #30 cap.cd.24h 06/03/17 Duloxetine HCl [Cymbalta -] 60 mg PO DAILY #30 capsule. 06/03/17 Gabapentin [Neurontin -] 300 mg PO TID #90 capsule 06/03/17 Lactobacillus Acidophilus [Bacid -] 1 tab PO DAILY #30 tab 06/03/17 Lipase/Protease/Amylase [Alexi Jones 36,000 Units Capsule] 1 cap PO TIDCM #90 capsule. 06/03/17 Lisinopril [Prinivil] 20 mg PO DAILY #30 tablet 06/03/17 Montelukast Na [Singulair -] 10 mg PO HS #30 tablet 06/03/17 Pantoprazole Sodium [Protonix -] 40 mg PO DAILY #30 tablet.ec 06/03/17 Zolpidem Tartrate [Ambien] 10 mg PO HS PRN tablet MDD 1 06/03/17 cloNIDine HCL [Catapres -] 0.1 mg PO BID #60 tablet 06/03/17 hydrALAZINE HCL [Apresoline -] 25 mg PO TID #90 tablet 06/03/17 levETIRAcetam [Keppra -] 1,000 mg PO BID #60 tablet 06/03/17 oxyCODONE HCL [Roxicodone -] 10 mg PO Q6H PRN tablet MDD 4 06/03/17 predniSONE [Deltasone -] 40 mg PO DAILY #10 tablet 06/03/17
[2017-06-03] MEDS ORDERED: INSULIN (NOVOLOG) ASPART 100 UNITS/ML 10ML VIAL ONE (11:33)
--- NOTE | 2017-06-03 11:41 | PN ---
Progress Note, Physician History of Present Illness: stable no issues feels better no complaints - Current Medication List Current Medications: Active Medications Acetaminophen (Tylenol -) 650 mg PO Q6H PRN PRN Reason: PAIN Last Admin: 06/03/17 10:04 Dose: 650 mg Albuterol/Ipratropium (Duoneb -) 1 amp NEB RQID [facility] Last Admin: 06/03/17 11:12 Dose: Not Given Alprazolam (Xanax -) 1 mg PO Q8H PRN PRN Reason: ANXIETY Last Admin: 06/01/17 08:39 Dose: 1 mg Aspirin (Ecotrin -) 81 mg PO DAILY [facility] Last Admin: 06/03/17 10:06 Dose: 81 mg Clonidine (Catapres -) 0.1 mg PO BID [facility] Last Admin: 06/03/17 10:06 Dose: 0.1 mg Diltiazem HCl (Cardizem Cd -) 120 mg PO DAILY [facility] Last Admin: 06/03/17 10:06 Dose: 120 mg Duloxetine HCl (Cymbalta -) 60 mg PO DAILY [facility] Last Admin: 06/03/17 10:06 Dose: 60 mg Gabapentin (Neurontin -) 300 mg PO TID [facility] Last Admin: 06/03/17 06:18 Dose: 300 mg Heparin Sodium (Porcine) (Heparin -) 5,000 unit SQ BID [facility] Last Admin: 06/03/17 10:06 Dose: 5,000 unit Hydralazine HCl (Apresoline -) 25 mg PO TID [facility] Last Admin: 06/03/17 06:18 Dose: 25 mg Insulin Aspart (Novolog Vial Sliding Scale -) 1 vial SQ [facility] PRN Reason: Protocol Last Admin: 06/03/17 06:18 Dose: 2 units Insulin Detemir (Levemir Vial) 20 units SQ HS [facility] Last Admin: 06/02/17 21:18 Dose: 20 units Lactobacillus Acidophilus (Bacid -) 1 tab PO DAILY [facility] Last Admin: 06/03/17 10:06 Dose: 1 tab Levetiracetam (Keppra -) 1,000 mg PO BID [facility] Last Admin: 06/03/17 10:06 Dose: 1,000 mg Lisinopril (Prinivil) 20 mg PO DAILY [facility] Last Admin: 06/03/17 10:06 Dose: 20 mg Methylnaltrexone Altair (Relistor -) 12 mg SQ Q2D@1000 [facility] Last Admin: 06/01/17 09:01 Dose: 12 mg Metoclopramide HCl (Reglan -) 10 mg PO TIDAC [facility] Last Admin: 06/03/17 06:18 Dose: 10 mg Metronidazole (Flagyl -) 250 mg PO TID [facility] Last Admin: 06/03/17 06:18 Dose: 250 mg Montelukast Sodium (Singulair -) 10 mg PO HS [facility] Last Admin: 06/02/17 21:17 Dose: 10 mg Nicotine (Nicoderm Patch -) 7 mg TD DAILY [facility] Last Admin: 06/02/17 15:22 Dose: 7 mg Oxycodone HCl (Roxicodone -) 10 mg PO Q6H PRN PRN Reason: PAIN LEVEL 7 - 10 Last Admin: 06/03/17 10:04 Dose: 10 mg Pancrelipase (Creon Dr 36,000 Units Capsule) 1 cap PO TIDCM [facility] Last Admin: 06/03/17 08:32 Dose: 1 cap Pantoprazole Sodium (Protonix -) 40 mg PO DAILY [facility] Last Admin: 06/03/17 10:06 Dose: 40 mg Potassium Chloride (K-Dur -) 20 meq PO ONCE ONE Stop: 06/03/17 11:08 Prednisone (Deltasone -) 40 mg PO DAILY [facility] Last Admin: 06/03/17 10:06 Dose: 40 mg Zolpidem Tartrate (Ambien -) 10 mg PO HS PRN PRN Reason: INSOMNIA Last Admin: 05/29/17 00:07 Dose: 10 mg - Objective Vital Signs: Vital Signs Temperature 98.9 F 06/03/17 08:33 Pulse Rate 75 06/03/17 10:00 Respiratory Rate 18 06/03/17 10:00 Blood Pressure 139/72 06/03/17 10:00 O2 Sat by Pulse Oximetry (%) 94 L 06/03/17 09:00 Constitutional: Yes: No Distress, Calm Cardiovascular: Yes: Regular Rate and Rhythm, S1, S2 Respiratory: Yes: Regular, Poor Air Entry (bases) Gastrointestinal: Yes: Normal Bowel Sounds, Soft Musculoskeletal: Yes: WNL Extremities: Yes: WNL Neurological: Yes: Alert, Oriented Psychiatric: Yes: Alert, Oriented Labs: CBC, BMP 06/03/17 08:00 06/03/17 08:00 INR, PTT INR 1.00 (0.82-1.09) 05/27/17 09:15 Assessment/Plan Problem List - Problems (1) Pneumonia Code(s): J18.9 - PNEUMONIA, UNSPECIFIED ORGANISM Qualifiers: Pneumonia type: due to unspecified organism Laterality: bilateral Lung location: lower lobe of lung Qualified Code(s): J18.9 - Pneumonia, unspecified organism (2) Abdominal pain Code(s): R10.9 - UNSPECIFIED ABDOMINAL PAIN Qualifiers: (3) CAD (coronary artery disease) Code(s): I25.10 - ATHSCL HEART DISEASE OF [place] CORONARY ARTERY W/O ANG PCTRS (4) COPD (chronic obstructive pulmonary disease) Code(s): J44.9 - CHRONIC OBSTRUCTIVE PULMONARY DISEASE, UNSPECIFIED (5) Diabetes mellitus Code(s): E11.9 - TYPE 2 DIABETES MELLITUS WITHOUT COMPLICATIONS Qualifiers: (6) Diabetes type 2, controlled Code(s): E11.9 - TYPE 2 DIABETES MELLITUS WITHOUT COMPLICATIONS (7) Hypertension Code(s): I10 - ESSENTIAL (PRIMARY) HYPERTENSION (8) Nicotine dependence Code(s): F17.200 - NICOTINE DEPENDENCE, UNSPECIFIED, UNCOMPLICATED plan off of abx stable no complaints rest as per primary team
[2017-06-03] MEDS ORDERED: POTASSIUM CHLORIDE TABS 20 MEQ TABLET.ER (FP) PO ONE (12:00)
[2017-06-03] MEDS: Methylnaltrexone Bromide 12 MG/0.6 ML KIT SQ SCH (12:02)
== END 2017-06-03 13:10 | disposition home health service (06) | DRG 720 ==
LOC: JER 08:14 → JERBED 14:59 → J4W 16:50 → J4S 05-28 19:10
PROVIDERS: ADMIT Family Medicine; ATTEND Family Medicine
DX: A41.9 Sepsis, unspecified organism (principal); J18.9 Pneumonia, unspecified organism; F41.8 Other specified anxiety disorders; J44.1 Chronic obstructive pulmonary disease with (acute) exacerbation; G89.29 Other chronic pain; E78.00 Pure hypercholesterolemia, unspecified; K58.9 Irritable bowel syndrome, unspecified; E11.65 Type 2 diabetes mellitus with hyperglycemia; F31.81 Bipolar II disorder; E87.2 Acidosis; E87.1 Hypo-osmolality and hyponatremia; E11.40 Type 2 diabetes mellitus with diabetic neuropathy, unspecified; F17.200 Nicotine dependence, unspecified, uncomplicated; R19.7 Diarrhea, unspecified; I11.0 Hypertensive heart disease with heart failure; E11.43 Type 2 diabetes mellitus with diabetic autonomic (poly)neuropathy; K31.84 Gastroparesis; B19.20 Unspecified viral hepatitis C without hepatic coma; R80.9 Proteinuria, unspecified; G47.33 Obstructive sleep apnea (adult) (pediatric); K74.69 Other cirrhosis of liver; D72.828 Other elevated white blood cell count; R10.9 Unspecified abdominal pain; E66.8 Other obesity; Z68.37 Body mass index [BMI] 37.0-37.9, adult; F12.90 Cannabis use, unspecified, uncomplicated; I25.10 Atherosclerotic heart disease of native coronary artery without angina pectoris; K44.9 Diaphragmatic hernia without obstruction or gangrene; Z87.442 Personal history of urinary calculi; Z95.5 Presence of coronary angioplasty implant and graft; Z71.6 Tobacco abuse counseling; Z86.73 Personal history of transient ischemic attack (TIA), and cerebral infarction without residual deficits; Z86.19 Personal history of other infectious and parasitic diseases
CPT/HCPCS: 36415; 70450-TC; 71045-TC-FY; 71250-TC; 74177-TC; 80048; 80053; 81003; 81015; 82550; 82570; 82947; 82962; 83605; 84156; 84484; 85025; 85027; 85610; 85730; 86850; 86900; 86901; 87040; 87045; 87046; 87086; 87324; 87449; 87804; 93005; 93010; 94640; 97116-GP; 97161-GP; 99282-25; J0735; J1644

== ENCOUNTER 2017-09-21 15:09 | Inpatient (IN) | payer OTHER ==
--- NOTE | 2017-09-21 15:15 | PDOC ---
Rapid Medical Evaluation Time Seen by Provider: 09/21/17 15:11 Medical Evaluation: Allergies Allergy/AdvReac Type Severity Reaction Status Date / Time No Known Allergies Allergy Verified 05/25/17 12:56 I have performed a brief in-person evaluation of this patient. The patient presents with a chief complaint of: palpitations and chest pain x since last night, worse today. also abdominal pain today Pertinent physical exam findings: short of breath. I have ordered the following: cardiac work up The patient will proceed to the ED for further evaluation. Discharge Disposition - Diagnosis Chest pain, Palpitations - Referrals - Patient Instructions - Post Discharge Activity
--- NOTE | 2017-09-21 15:47 | EKG ---
Test Reason : Blood Pressure : / mmHG Vent. Rate : 102 BPM Atrial Rate : 102 BPM P-R Int : 162 ms QRS Dur : 070 ms QT Int : 354 ms P-R-T Axes : 073 061 047 degrees QTc Int : 461 ms SINUS TACHYCARDIA RIGHT ATRIAL ENLARGEMENT SEPTAL INFARCT , AGE UNDETERMINED ABNORMAL ECG WHEN COMPARED WITH ECG OF 27-MAY-2017 10:38, NO SIGNIFICANT CHANGE WAS FOUND Confirmed by MD JACK, PARVEEN ([id number]) on 09/21/2017 3:47:48 PM Referred By: Confirmed By:PARVEEN SANTIAGO MD
--- NOTE | 2017-09-21 16:11 | PDOC ---
History of Present Illness <Laura Chapa - Last Filed: 09/21/17 16:11> - General History Source: Patient Exam Limitations: No Limitations - History of Present Illness Initial Comments: 09/21/17 16:55 The patient is a 57 year old female, with a significant PMH of C. diff colitis, NIDDM, HTN, anxiety, depression, chronic pain, former IVDA, CHF, COPD, who presents to the emergency department with 3 days of intermittent chest pain and epigastric abdominal pain. The patient states the chest pain and epigastric abdominal pain has been progressively worsening over the past 3 days and is worse with movement/ changing positions. The patient endorses nausea without vomiting secondary to the chest pain/ epigastric abdominal pain and states she had a measured fever of 101 F with chills. The patient also states she has been experiencing palpitations when she walks. The patient denies shortness of breath, headache and dizziness. Denies vomit, diarrhea and constipation. Denies dysuria, frequency, urgency and hematuria. Allergies: NKA <Van Judge - Last Filed: 09/21/17 18:58> - General Chief Complaint: Chest Pain Stated Complaint: CHEST PAIN, ABD PAIN Time Seen by Provider: 09/21/17 15:11 Past History - Past Medical History Anemia: No Asthma: Yes Cancer: No Cardiac Disorders: Yes (Stent X 1) CVA: No COPD: Yes CHF: Yes DVT: No Dementia: No Diabetes: Yes GI Disorders: No Disorders: No HTN: Yes Hypercholesterolemia: Yes Kidney Stones: Yes Liver Disease: Yes (Cirrhosis, Hepatitis C) Psychiatric Problems: Yes (bipolar) Seizures: Yes (Last episode 03/2013) Thyroid Disease: Yes - Surgical History Abdominal Surgery: No Appendectomy: Yes (age 11) Cardiac Surgery: Yes (Stent X 1) Cholecystectomy: Yes Lung Surgery: No Neurologic Surgery: No Orthopedic Surgery: Yes (Lower back 02/2013) - Family Disease History Family Disease History: Diabetes: Brother, Sister, Heart Disease: Brother, Sister - Immunization History Td Vaccination: Yes Immunization Up to Date: Yes - Suicide/Smoking/Psychosocial Hx Smoking Status: Yes Smoking History: Current every day smoker Have you smoked in the past 12 months: No Number of Cigarettes Smoked Daily: 10 Information on smoking cessation initiated: Yes 'Breaking Loose' booklet given: 09/21/17 Hx Alcohol Use: No Drug/Substance Use Hx: No Substance Use Type: Opiates, Prescribed Hx Substance Use Treatment: Yes (detox) <Laura Chapa - Last Filed: 09/21/17 16:11> <Van Judge - Last Filed: 09/21/17 18:58> - Past Medical History Allergies/Adverse Reactions: Allergies Allergy/AdvReac Type Severity Reaction Status Date / Time No Known Allergies Allergy Verified 05/25/17 12:56 Home Medications: Ambulatory Orders Famotidine [Pepcid -] 40 mg PO DAILY 12/21/14 Tiotropium [place] [Spiriva] 18 mcg IH DAILY 12/21/14 Alprazolam [Xanax] 1 mg PO TID 07/13/16 Ascorbic Acid [Vitamin C -] 500 mg PO BID #60 tablet 02/15/17 Docusate Sodium [Colace -] 300 mg PO HS #30 cap 02/15/17 Insulin (Levemir) [Levemir Flexpen -] 20 units SQ BID #4 pen 02/15/17 Insulin (Novolog) [Novolog Flexpen -] 5 units SQ ACHS #4 pen 02/15/17 Montelukast Na [Singulair -] 10 mg PO HS #30 tablet 02/15/17 Salmeterol/Fluticasone [Advair 100Mcg/50Mcg -] 1 puff IH BID #1 inhaler Sennosides [Senna -] 2 tab PO HS #60 tablet 02/15/17 metFORMIN HCL [Glucophage -] 500 mg PO BID@0700,1630 #60 tablet 02/15/17 Acetaminophen [Tylenol .Regular Strength -] 650 mg PO Q6H PRN tablet 06/03/17 Aspirin Coated [Ecotrin -] 81 mg PO DAILY #30 tablet.ec 06/03/17 Diltiazem Cd [Cardizem Cd -] 120 mg PO DAILY #30 cap.cd.24h 06/03/17 Duloxetine HCl [Cymbalta -] 60 mg PO DAILY #30 capsule. 06/03/17 Gabapentin [Neurontin -] 300 mg PO TID #90 capsule 06/03/17 Lactobacillus Acidophilus [Bacid -] 1 tab PO DAILY #30 tab 06/03/17 Lipase/Protease/Amylase [Creon 36,000 Units Capsule] 1 cap PO TIDCM #90 capsule. 06/03/17 Lisinopril [Prinivil] 20 mg PO DAILY #30 tablet 06/03/17 Montelukast Na [Singulair -] 10 mg PO HS #30 tablet 06/03/17 Pantoprazole Sodium [Protonix -] 40 mg PO DAILY #30 tablet.ec 06/03/17 Zolpidem Tartrate [Ambien] 10 mg PO HS PRN tablet MDD 1 06/03/17 cloNIDine HCL [Catapres -] 0.1 mg PO BID #60 tablet 06/03/17 hydrALAZINE HCL [Apresoline -] 25 mg PO TID #90 tablet 06/03/17 levETIRAcetam [Keppra -] 1,000 mg PO BID #60 tablet 06/03/17 oxyCODONE HCL [Roxicodone -] 10 mg PO Q6H PRN tablet MDD 4 06/03/17 predniSONE [Deltasone -] 40 mg PO DAILY #10 tablet 06/03/17 Review of Systems - Review of Systems Comments:: 09/21/17 16:55 GENERAL/CONSTITUTIONAL: (+) Fever and chills. No weakness. HEAD, EYES, EARS, NOSE AND THROAT: No change in vision. No ear pain or discharge. No sore throat. CARDIOVASCULAR: (+) Palpitations. (+) Chest pain. No shortness of breath. RESPIRATORY: No cough, wheezing, or hemoptysis. GASTROINTESTINAL: (+) Epigastric abdominal pain. (+) Nausea. No vomiting, diarrhea or constipation. GENITOURINARY: No dysuria, frequency, or change in urination. MUSCULOSKELETAL: No joint or muscle swelling or pain. No neck or back pain. SKIN: No rash NEUROLOGIC: No headache, vertigo, loss of consciousness, or change in strength/ sensation. ENDOCRINE: No increased thirst. No abnormal weight change. HEMATOLOGIC/LYMPHATIC: No anemia, easy bleeding, or history of blood clots. ALLERGIC/IMMUNOLOGIC: No hives or skin allergy. <Van Judge - Last Filed: 09/21/17 18:58> *Physical Exam - Vital Signs Last Vital Signs Temp Pulse Resp BP Pulse Ox 99.6 F 101 H 28 H 192/94 100 09/21/17 15:12 09/21/17 15:12 09/21/17 15:12 09/21/17 15:12 09/21/17 15:12 <Laura Chapa - Last Filed: 09/21/17 16:11> - Vital Signs Last Vital Signs Temp Pulse Resp BP Pulse Ox 99.6 F 101 H 28 H 192/94 100 09/21/17 15:12 09/21/17 15:12 09/21/17 15:12 09/21/17 15:12 09/21/17 15:12 - Physical Exam Comments: 09/21/17 17:31 GENERAL: +Appears uncomfortable. Awake, alert, and fully oriented. HEAD: No signs of trauma EYES: PERRLA, EOMI, sclera anicteric, conjunctiva clear ENT: Auricles normal inspection, hearing grossly normal, nares patent, oropharynx clear without exudates. Moist mucosa NECK: Normal ROM, supple, no lymphadenopathy, JVD, or masses LUNGS: Breath sounds equal, clear to auscultation bilaterally. No wheezes, and no crackles HEART: +Tachycardia. Regular rhythm, normal S1 and S2, no murmurs, rubs or gallops BACK: +Right sided CVA tenderness. ABDOMEN: +Tender to right upper quadrant and epigastric region. Soft, normoactive bowel sounds. No guarding, no rebound. No masses EXTREMITIES: Normal range of motion, no edema. No clubbing or cyanosis. No cords, erythema, or tenderness NEUROLOGICAL: Cranial nerves II through XII grossly intact. Normal speech, normal gait SKIN: +Diaphoretic. Normal turgor, no rashes or lesions noted. <Van Judge - Last Filed: 09/21/17 18:58> ED Treatment Course - LABORATORY CBC & Chemistry Diagram: 09/21/17 17:15 09/21/17 17:15 <Van Judge - Last Filed: 09/21/17 18:58> *DC/Admit/Observation/Transfer <Laura Chapa - Last Filed: 09/21/17 16:11> - Attestations Scribe Attestion: 09/21/17 16:57 Documentation prepared by Van Judge, acting as medical administrative technician for Laura Chapa MD. <Van Judge - Last Filed: 09/21/17 18:58> Diagnosis at time of Disposition: Chest pain, Palpitations - Referrals Referrals: Rc Pineda MD [Primary Care Provider] -
[2017-09-21] MEDS ORDERED: morphine CARPU-JECT 4 MG/1 ML DISP.SYRIN IVPUSH ONE (16:38)
[2017-09-21] MEDS ORDERED: morphine SULFATE 4 MG/ML VIAL ONE ×2 (17:32→23:21)
[2017-09-21 17:34] LABS: BASO % 1.2 % (0-2.0); EOS % 1.3 % (0-4.5); HEMATOCRIT 42.6 % (32.4-45.2); HEMOGLOBIN 14.5 GM/dL (10.7-15.3); LYMPH % 26.9 % (8-40); MCH 30.6 pg (25.7-33.7); MCHC 33.9 g/dl (32.0-36.0); MEAN CELL VOLUME 90.2 fl (80-96); MEAN PLT VOLUME 8.7 fl (7.5-11.1); MONO % 7.5 % (3.8-10.2); NEUT % 63.1 % (42.8-82.8); PLATELET COUNT 310 K/MM3 (134-434); RBC 4.72 M/mm3 (3.60-5.2); RDW 14.7 % (11.6-15.6); WHITE BLOOD COUNT 10.5 K/mm3 (4.0-10.0)
[2017-09-21 17:53] LABS: ALBUMIN 3.1 g/dl (3.4-5.0); ANION GAP 5 (8-16); BLOOD UREA NITROGEN 11 mg/dL (7-18); CALCIUM 9.8 mg/dL (8.5-10.1); CHLORIDE 96 mmol/L (98-107); CO2 34 mmol/L (21-32); GLUCOSE,RANDOM 242 mg/dL (74-106); INR 1.07 (0.82-1.09); LIPASE 54 U/L (73-393); PROTHROMBIN TIME (PATIENT) 12.1 SEC (9.7-13.0); SODIUM 135 mmol/L (136-145)
[2017-09-21 18:00] LABS: ALK PHOS 100 U/L (45-117); BILIRUBIN,TOTAL 0.4 mg/dL (0.2-1.0); CREATININE 0.6 mg/dL (0.55-1.02); SGPT/ALT 76 U/L (12-78); TOT PROT 8.1 g/dl (6.4-8.2)
[2017-09-21 18:12] LABS: POTASSIUM 4.8 mmol/L (3.5-5.1)
[2017-09-21 18:13] LABS: MAGNESIUM 1.5 mg/dL (1.8-2.4); SGOT/AST 39 U/L (15-37)
[2017-09-21] MEDS ORDERED: SODIUM CHLORIDE 0.9% 500 ML INFUS.BAG IV ONE (19:13)
[2017-09-21] MEDS ORDERED: KETOROLAC TROMETHAMINE 30 MG/1 ML VIAL IVPUSH ONE (20:26)
[2017-09-21] MEDS ORDERED: KETOROLAC TROMETHAMINE 30 MG/1 ML VIAL ONE (20:34)
[2017-09-21] MEDS ORDERED: ONDANSETRON 4 MG/2 ML VIAL IVPUSH STA (23:05)
[2017-09-21] MEDS ORDERED: morphine CARPU-JECT 2 MG/1 ML DISP.SYRIN IVPUSH ONE (23:05)
[2017-09-21] MEDS ORDERED: MORPHINE SULFATE 2 MG/ML VIAL ONE (23:21)
[2017-09-21] MEDS ORDERED: ONDANSETRON 4 MG/2 ML VIAL ONE (23:22)
[2017-09-21] MEDS ORDERED: ONDANSETRON *ODT* 4 MG TABLET SL ONE (23:30)
[2017-09-21] MEDS ORDERED: ONDANSETRON *ODT* 4 MG TABLET ONE (23:33)
--- NOTE | 2017-09-21 23:44 | PDOC ---
*Physical Exam - Vital Signs Last Vital Signs Temp Pulse Resp BP Pulse Ox 99.6 F 86 22 103/56 97 09/21/17 15:12 09/21/17 20:27 09/21/17 20:27 09/21/17 20:27 09/21/17 20:27 <Yokasta Berg - Last Filed: 09/21/17 23:44> - Vital Signs Last Vital Signs Temp Pulse Resp BP Pulse Ox 99.6 F 86 22 103/56 97 09/21/17 15:12 09/21/17 20:27 09/21/17 20:27 09/21/17 20:27 09/21/17 20:27 - Physical Exam General Appearance: Yes: Nourished <William Redd - Last Filed: 09/22/17 00:09> ED Treatment Course - LABORATORY CBC & Chemistry Diagram: 09/21/17 17:15 09/21/17 17:15 - ADDITIONAL ORDERS Additional order review: Laboratory Results 09/21/17 09/21/17 09/21/17 22:20 17:15 17:15 PT with INR INR Sodium Potassium Chloride Carbon Dioxide Anion Gap BUN Creatinine Creat Clearance w eGFR Random Glucose Lactic Acid 1.6 2.7 H* Calcium Magnesium Total Bilirubin AST ALT Alkaline Phosphatase Creatine Kinase Troponin I B-Natriuretic Peptide 298.77 H Total Protein Albumin Lipase 09/21/17 09/21/17 17:15 17:15 PT with INR 12.10 INR 1.07 Sodium 135 L Potassium 4.8 Chloride 96 L Carbon Dioxide 34 H Anion Gap 5 L BUN 11 Creatinine 0.6 Creat Clearance w eGFR > 60 Random Glucose 242 H Lactic Acid Calcium 9.8 Magnesium 1.5 L Total Bilirubin 0.4 D AST 39 H ALT 76 Alkaline Phosphatase 100 Creatine Kinase 70 Troponin I < 0.02 B-Natriuretic Peptide Total Protein 8.1 Albumin 3.1 L Lipase 54 L 09/21/17 17:15 RBC 4.72 MCV 90.2 MCHC 33.9 RDW 14.7 D MPV 8.7 Neutrophils % 63.1 Lymphocytes % 26.9 D Monocytes % 7.5 Eosinophils % 1.3 Basophils % 1.2 - Medications Given in the ED: ED Medications Discontinued Medications Generic Name Dose Route Start Last Admin Trade Name Freq PRN Reason Stop Dose Admin Levofloxacin 750 mg in 150 mls @ 100 mls/hr 09/21/17 20:26 09/21/17 22:04 Levaquin 750 Mg Premixed Ivpb - IVPB 09/21/17 21:55 100 mls/hr ONCE ONE Administration Protocol Ketorolac Tromethamine 30 mg 09/21/17 20:26 09/21/17 20:39 Toradol Injection - IVPUSH 09/21/17 20:27 30 mg ONCE ONE Administration Levofloxacin 500 mg 09/21/17 23:35 09/21/17 23:40 Levaquin - PO 09/21/17 23:36 500 mg ONCE ONE Administration Morphine Sulfate 4 mg 09/21/17 16:38 09/21/17 17:39 Morphine Injection - IVPUSH 09/21/17 16:39 4 mg ONCE ONE Administration Morphine Sulfate 6 mg 09/21/17 23:05 09/21/17 23:19 Morphine Injection - IVPUSH 09/21/17 23:06 6 mg ONCE ONE Administration Ondansetron HCl 4 mg 09/21/17 23:05 09/21/17 23:40 Zofran Injection IVPUSH 09/21/17 23:06 Not Given ONCE STA Ondansetron HCl 4 mg 09/21/17 23:30 09/21/17 23:40 Zofran Odt - SL 09/21/17 23:31 4 mg ONCE ONE Administration Sodium Chloride 1,000 ml 09/21/17 19:13 09/21/17 19:51 Normal Saline - IV 09/21/17 19:14 1,000 ml ONCE ONE Administration <Yokasta Breg - Last Filed: 09/21/17 23:44> - LABORATORY CBC & Chemistry Diagram: 09/21/17 17:15 09/21/17 17:15 - ADDITIONAL ORDERS Additional order review: Laboratory Results 09/21/17 09/21/17 09/21/17 22:20 17:15 17:15 PT with INR INR Sodium Potassium Chloride Carbon Dioxide Anion Gap BUN Creatinine Creat Clearance w eGFR Random Glucose Lactic Acid 1.6 2.7 H* Calcium Magnesium Total Bilirubin AST ALT Alkaline Phosphatase Creatine Kinase Troponin I B-Natriuretic Peptide 298.77 H Total Protein Albumin Lipase 09/21/17 09/21/17 17:15 17:15 PT with INR 12.10 INR 1.07 Sodium 135 L Potassium 4.8 Chloride 96 L Carbon Dioxide 34 H Anion Gap 5 L BUN 11 Creatinine 0.6 Creat Clearance w eGFR > 60 Random Glucose 242 H Lactic Acid Calcium 9.8 Magnesium 1.5 L Total Bilirubin 0.4 D AST 39 H ALT 76 Alkaline Phosphatase 100 Creatine Kinase 70 Troponin I < 0.02 B-Natriuretic Peptide Total Protein 8.1 Albumin 3.1 L Lipase 54 L 09/21/17 17:15 RBC 4.72 MCV 90.2 MCHC 33.9 RDW 14.7 D MPV 8.7 Neutrophils % 63.1 Lymphocytes % 26.9 D Monocytes % 7.5 Eosinophils % 1.3 Basophils % 1.2 - RADIOLOGY Radiology Studies Ordered: Category Date Time Status TRANSVAGINAL ULTRASOUND US [US] Stat Ultrasound 09/21/17 23:06 Ordered - Medications Given in the ED: ED Medications Discontinued Medications Generic Name Dose Route Start Last Admin Trade Name Freq PRN Reason Stop Dose Admin Levofloxacin 750 mg in 150 mls @ 100 mls/hr 09/21/17 20:26 09/21/17 22:04 Levaquin 750 Mg Premixed Ivpb - IVPB 09/21/17 21:55 100 mls/hr ONCE ONE Administration Protocol Ketorolac Tromethamine 30 mg 09/21/17 20:26 09/21/17 20:39 Toradol Injection - IVPUSH 09/21/17 20:27 30 mg ONCE ONE Administration Levofloxacin 500 mg 09/21/17 23:35 09/21/17 23:40 Levaquin - PO 09/21/17 23:36 500 mg ONCE ONE Administration Morphine Sulfate 4 mg 09/21/17 16:38 09/21/17 17:39 Morphine Injection - IVPUSH 09/21/17 16:39 4 mg ONCE ONE Administration Morphine Sulfate 6 mg 09/21/17 23:05 09/21/17 23:19 Morphine Injection - IVPUSH 09/21/17 23:06 6 mg ONCE ONE Administration Ondansetron HCl 4 mg 09/21/17 23:05 09/21/17 23:40 Zofran Injection IVPUSH 09/21/17 23:06 Not Given ONCE STA Ondansetron HCl 4 mg 09/21/17 23:30 09/21/17 23:40 Zofran Odt - SL 09/21/17 23:31 4 mg ONCE ONE Administration Sodium Chloride 1,000 ml 09/21/17 19:13 09/21/17 19:51 Normal Saline - IV 09/21/17 19:14 1,000 ml ONCE ONE Administration <William Redd - Last Filed: 09/22/17 00:09> Medical Decision Making - Medical Decision Making 09/21/17 23:45 Patient found to have bibasilar infiltration in the Abdominal CT, was originally given 750 levaquin IV however, IV antibiotic started to infiltration as the IV came out. Multiple attempts for a new IV line, without success. Patient was given 500 levaquin PO Patient complaining of abdominal pain more localized in the RLQ. Transvaginal ultrasound ordered to evaluate the R. adnexa <Yokasta Berg - Last Filed: 09/21/17 23:44> - Medical Decision Making 09/22/17 00:07 Pt still having pain despite negative abdominal pathology of Ct scan and Transvaginal US. Pt also found to have bibasilar infiltrates on Ct scan. Will admit. <William Redd - Last Filed: 09/22/17 00:09> *DC/Admit/Observation/Transfer <Yokasta Berg - Last Filed: 09/21/17 23:44> - Discharge Dispostion Decision to Admit order: Yes <William Redd - Last Filed: 09/22/17 00:09> Diagnosis at time of Disposition: Chest pain, Palpitations, Intractable abdominal pain Pneumonia Qualifiers: Laterality: bilateral Lung location: lower lobe of lung - Discharge Dispostion Condition at time of disposition: Stable - Referrals Referrals: Rc Pineda MD [Primary Care Provider] - - Patient Instructions - Post Discharge Activity
--- NOTE | 2017-09-22 00:34 | HP ---
Admitting History and Physical - Primary Care Physician PCP: Rc Pineda - Admission Chief Complaint: Chest Pain, Abdominal Pain History of Present Illness: This is a 57 y/o woman PMH: C diff colitis, NIDDM, CHF, CAD s/p stent x1, COPD, Hypothyroidism, Anxiety, Depression, Bipolar, Seizures (03/2013), Chronic Pain, Former IVDA, Hepatitis C, Cirrhosis. Who presents to the ED with chest pain, epigastric pain, fever and chills x3 days. Patient's last admission 05/27-06/03 Pneumonia, 05/13-05/20 Colitis. Patient describes the pain as sharp to stabbing intermittently to RUQ. Patient denies cough, SOB, N/V/D, constipation, hematochezia, melena, dysuria, hematuria. 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 pt thinks she may have had one in the past (L facial droop)), Seizure. No: Alzheimer's Cardiovascular: Yes: CAD, HTN. No: AFIB Pulmonary: Yes: Asthma, COPD Gastrointestinal: Yes: Hiatal Hernia, Other ("colitis" mid-April) Hepatobiliary: Yes: Hepatitis C (from a blood transfusion) Infectious Disease: Yes: MRSA (R thigh abscess 02/26) Psych: Yes: Addictions, Anxiety, Bipolar, Depression Musculoskeletal: Yes: Chronic low back pain Endocrine: Yes: Diabetes Mellitus - Past Surgical History Past Surgical History: Yes: Appendectomy, Cholecystectomy (laparoscopic), Colonoscopy, Hysterectomy (vaginal) - Smoking History Smoking history: Current every day smoker Have you smoked in the past 12 months: No Aproximately how many cigarettes per day: 10 - Alcohol/Substance Use Hx Alcohol Use: No History of Substance Use: reports: Cocaine (crack) - Social History Occupation: disabled History of Recent Travel: No Home Medications - Allergies Allergies/Adverse Reactions: Allergies Allergy/AdvReac Type Severity Reaction Status Date / Time No Known Allergies Allergy Verified 05/25/17 12:56 - Home Medications Home Medications: Ambulatory Orders Famotidine [Pepcid -] 40 mg PO DAILY 12/21/14 Tiotropium [place] [Spiriva] 18 mcg IH DAILY 12/21/14 Alprazolam [Xanax] 1 mg PO TID 07/13/16 Ascorbic Acid [Vitamin C -] 500 mg PO BID #60 tablet 02/15/17 Docusate Sodium [Colace -] 300 mg PO HS #30 cap 02/15/17 Insulin (Levemir) [Levemir Flexpen -] 20 units SQ BID #4 pen 02/15/17 Insulin (Novolog) [Novolog Flexpen -] 5 units SQ ACHS #4 pen 02/15/17 Montelukast Na [Singulair -] 10 mg PO HS #30 tablet 02/15/17 Salmeterol/Fluticasone [Advair 100Mcg/50Mcg -] 1 puff IH BID #1 inhaler Sennosides [Senna -] 2 tab PO HS #60 tablet 02/15/17 metFORMIN HCL [Glucophage -] 500 mg PO BID@0700,1630 #60 tablet 02/15/17 Acetaminophen [Tylenol .Regular Strength -] 650 mg PO Q6H PRN tablet 06/03/17 Aspirin Coated [Ecotrin -] 81 mg PO DAILY #30 tablet.ec 06/03/17 Diltiazem Cd [Cardizem Cd -] 120 mg PO DAILY #30 cap.cd.24h 06/03/17 Duloxetine HCl [Cymbalta -] 60 mg PO DAILY #30 capsule. 06/03/17 Gabapentin [Neurontin -] 300 mg PO TID #90 capsule 06/03/17 Lactobacillus Acidophilus [Bacid -] 1 tab PO DAILY #30 tab 06/03/17 Lipase/Protease/Amylase [Alexi Jones 36,000 Units Capsule] 1 cap PO TIDCM #90 capsule. 06/03/17 Lisinopril [Prinivil] 20 mg PO DAILY #30 tablet 06/03/17 Montelukast Na [Singulair -] 10 mg PO HS #30 tablet 06/03/17 Pantoprazole Sodium [Protonix -] 40 mg PO DAILY #30 tablet.ec 06/03/17 Zolpidem Tartrate [Ambien] 10 mg PO HS PRN tablet MDD 1 06/03/17 cloNIDine HCL [Catapres -] 0.1 mg PO BID #60 tablet 06/03/17 hydrALAZINE HCL [Apresoline -] 25 mg PO TID #90 tablet 06/03/17 levETIRAcetam [Keppra -] 1,000 mg PO BID #60 tablet 06/03/17 oxyCODONE HCL [Roxicodone -] 10 mg PO Q6H PRN tablet MDD 4 06/03/17 predniSONE [Deltasone -] 40 mg PO DAILY #10 tablet 06/03/17 Family Disease History - Family Disease History Family Disease History: Diabetes: Mother, Heart Disease: Father, Brother, Sister , Respiratory: Father, Other: Father, Brother, Sister Review of Systems - Review of Systems Constitutional: reports: Chills, Fever Eyes: reports: No Symptoms HENT: reports: No Symptoms Neck: reports: No Symptoms Cardiovascular: reports: Chest Pain Respiratory: reports: No Symptoms Gastrointestinal: reports: Abdominal Pain Genitourinary: reports: No Symptoms Breasts: reports: No Symptoms Reported Musculoskeletal: reports: Back Pain Integumentary: reports: No Symptoms Neurological: reports: No Symptoms Endocrine: reports: No Symptoms Hematology/Lymphatic: reports: No Symptoms Psychiatric: reports: No Symptoms Physical Examination Vital Signs: Vital Signs Temperature 99.6 F 09/21/17 15:12 Pulse Rate 86 09/21/17 20:27 Respiratory Rate 22 09/21/17 20:27 Blood Pressure 103/56 09/21/17 20:27 O2 Sat by Pulse Oximetry (%) 97 09/21/17 20:27 Constitutional: Yes: Well Nourished, Mild Distress, Obese Eyes: Yes: WNL, Conjunctiva Clear, EOM Intact, PERRL HENT: Yes: WNL, Atraumatic, Normocephalic Neck: Yes: WNL, Supple, Trachea Midline Cardiovascular: Yes: WNL, Regular Rate and Rhythm, S1, S2 Respiratory: Yes: Rhonchi Gastrointestinal: Yes: Normal Bowel Sounds, Soft, Abdomen, Obese, Tenderness ( RUQ, RLQ), Tenderness, Epigastrium. No: Tenderness, Rebound Renal/: Yes: WNL Breast(s): Yes: WNL Musculoskeletal: Yes: Back Pain Extremities: Yes: WNL Edema: LLE: Trace, RLE: Trace Peripheral Pulses WNL: Yes Integumentary: Yes: Other (cyst to mid occiptal) Wound/Incision: Yes: Other (healed wound to right medial aspect of thigh) Neurological: Yes: WNL, Alert, Oriented, Cran Nerves II-XII Intact ...Motor Strength: WNL Labs: CBC, BMP 09/21/17 17:15 09/21/17 17:15 Imaging - Results Chest X-ray: Report Reviewed, Image Reviewed Cat Scan: Report Reviewed, Image Reviewed EKG: Image Reviewed (Sinus Tachycardia QT/QTc 354/461) Problem List - Problems (1) Pneumonia Code(s): J18.9 - PNEUMONIA, UNSPECIFIED ORGANISM Qualifiers: Laterality: bilateral Lung location: lower lobe of lung (2) Lactic acid acidosis Code(s): E87.2 - ACIDOSIS (3) Chest pain Code(s): R07.9 - CHEST PAIN, UNSPECIFIED (4) Intractable abdominal pain Code(s): R10.9 - UNSPECIFIED ABDOMINAL PAIN (5) CAD (coronary artery disease) Code(s): I25.10 - ATHSCL HEART DISEASE OF [place] CORONARY ARTERY W/O ANG PCTRS (6) COPD (chronic obstructive pulmonary disease) Code(s): J44.9 - CHRONIC OBSTRUCTIVE PULMONARY DISEASE, UNSPECIFIED (7) Cocaine abuse Code(s): F14.10 - COCAINE ABUSE, UNCOMPLICATED (8) Diabetic gastroparesis Code(s): E11.43 - TYPE 2 DIABETES W DIABETIC AUTONOMIC (POLY)NEUROPATHY; K31.84 - GASTROPARESIS (9) Neuropathy Code(s): G62.9 - POLYNEUROPATHY, UNSPECIFIED (10) Hypertension Code(s): I10 - ESSENTIAL (PRIMARY) HYPERTENSION Qualifiers: Hypertension type: essential hypertension Qualified Code(s): I10 - Essential (primary) hypertension (11) Hypothyroidism Code(s): E03.9 - HYPOTHYROIDISM, UNSPECIFIED Qualifiers: Hypothyroidism type: acquired Qualified Code(s): E03.9 - Hypothyroidism, unspecified (12) Seizure disorder Code(s): G40.909 - EPILEPSY, UNSP, NOT INTRACTABLE, WITHOUT STATUS EPILEPTICUS (13) Tobacco abuse Code(s): Z72.0 - TOBACCO USE Assessment/Plan This is a 57 y/o woman with a PMHx of: CAD s/p stent x1, HTN, Hypothyroid, CHF, COPD, Seizure Disorder, Anxiety, Depression, Hepatitis C, Cirrhosis, Former IVDA. Admitted for Community Acquired Pneumonia, Sepsis, Intractable Abdominal Pain. Plan: 1. ID: Community Acquired Pneumonia, Sepsis - Last treated for PNA > 90 days - qSOFA 1 - Sepsis Criteria Met III- P 101, R 28, LA 2.7~1.6 - Blood Cultures-pending - WBC 10.5 - T Max 99.6 - CTAP- bibasilar infiltrates - NS bolus given in ED - Levofloxacin given in ED, will continue - Appreciate ID consult - Monitor vitals - CBC, BMP in am - Urine Legionella-pending 2. GI: Intractable Abdominal Pain, Cirrhosis - Hx chronic pain, ?gastroparesis - CTAP- no acute abdominal pathology - Toradol, Morphine given in ED - Monitor CBC, BMP in am - Monitor vitals - Consider Pain Mgmt consult for patient's hx complex - Clear Diabetic Diet ad glenna - Avoid hepatotoxic drugs 3. Card: Chest Pain, Hypertension, CAD, CHF - stable - HEART Score 4 - s/p stent - Serial Enzymes - EKG reviewed - Chest Xray-reviewed - Continue home meds with parameters - Monitor renal function - Consider Cardiology consult if condition worsens - O2 - Lipid panel in am 4. Pulm: COPD - stable - Duonebs prn - Continue home meds - Monitor vitals 5. Neuro: Seizures - Continue home med - Seizure Precautions - Fall Precautions 6. Endocrine: Hypothyroid - TSH - Continue home med 7. Psych: Anxiety, Depression - Continue home meds 8. FEN - Replete lytes prn - Clear Diabetic Diet 9. DVT ppx - OOB - SCDs - Heparin SQ Code Status: Full Code Dispo: Requires Inpatient Care Visit type - Emergency Visit Emergency Visit: Yes ED Registration Date: 09/21/17 Care time: The patient presented to the Emergency Department on the above date and was hospitalized for further evaluation of their emergent condition. - New Patient This patient is new to me today: Yes Date on this admission: 09/22/17 - Critical Care Critical Care patient: No Hospitalist Screening - Colonoscopy Questionnaire Colonoscopy Questionnaire: Colonoscopy Questionnaire - Patient: 50 - 75 years old and never had a screening colonoscopy: No History of colon or rectal polyps, or CA: No History of IBD, Crohn's disease or UC: No History of abdominal radiation therapy as a child: No - Relative: 1 with colon or rectal CA, or polyps at age 60 or younger: No Colon or rectal CA diagnosed at age 45 or younger: No Multiple relatives with colon or rectal CA: No - Outcome: Screening Result: Negative Screen
[2017-09-22 02:26] LABS: URINE APPEARANCE CLEAR; URINE BILIRUBIN NEGATIVE (<2.0 mg/dL); URINE COLOR YELLOW; URINE GLUCOSE (UA) 3+ (NEGATIVE); URINE KETONE NEGATIVE (NEGATIVE); URINE LEUK ESTERASE NEGATIVE (NEGATIVE); URINE NITRITE NEGATIVE (NEGATIVE); URINE UROBILINOGEN NEGATIVE mg/dL (0.2-1.0)
[2017-09-22 02:27] LABS: URINE PROTEIN 3+ (NEGATIVE)
[2017-09-22 02:30] LABS: EPI CELLS RARE /HPF (FEW); URINE MUCUS FEW
[2017-09-22] MEDS: GABAPENTIN 300 MG CAPSULE (FP) PO SCH ×3 (06:32→23:07)
[2017-09-22] MEDS: HEPARIN NA (PORCINE) 5,000 UNITS/ML 1ML VIAL SQ SCH ×3 (06:32→23:06)
[2017-09-22] MEDS: INSULIN SLIDING SCALE (NOVOLOG) 1 VIAL SQ SCH ×4 (06:33→23:34)
[2017-09-22] MEDS ORDERED: morphine SULFATE 4 MG/ML VIAL IVPUSH ONE (07:09)
[2017-09-22 08:01] LABS: BASO % 0.6 % (0-2.0); EOS % 2.9 % (0-4.5); HEMATOCRIT 39.6 % (32.4-45.2); HEMOGLOBIN 13.2 GM/dL (10.7-15.3); LYMPH % 32.5 % (8-40); MCHC 33.3 g/dl (32.0-36.0); MEAN CELL VOLUME 90.2 fl (80-96); MEAN PLT VOLUME 9.2 fl (7.5-11.1); MONO % 9.9 % (3.8-10.2); NEUT % 54.1 % (42.8-82.8); PLATELET COUNT 278 K/MM3 (134-434); RBC 4.39 M/mm3 (3.60-5.2); RDW 14.6 % (11.6-15.6); WHITE BLOOD COUNT 10.1 K/mm3 (4.0-10.0)
[2017-09-22 08:23] LABS: CALCIUM 8.9 mg/dL (8.5-10.1); CHLORIDE 97 mmol/L (98-107); POTASSIUM 4.2 mmol/L (3.5-5.1); SODIUM 136 mmol/L (136-145)
[2017-09-22 08:31] LABS: ANION GAP 9 (8-16); BLOOD UREA NITROGEN 10 mg/dL (7-18); CHOLESTEROL 156 mg/dL (50-200); CO2 30 mmol/L (21-32); CREATININE 0.5 mg/dL (0.55-1.02); GLUCOSE,RANDOM 230 mg/dL (74-106); HDL CHOLESTEROL 59 mg/dL (40-60); TRIGLYCERIDES 98 mg/dL (35-160)
[2017-09-22] MEDS: levETIRAcetam 500 MG TABLET (FP) PO SCH ×2 (09:30→23:07)
[2017-09-22] MEDS: PANTOPRAZOLE 40 MG TABLET (FP) PO SCH (09:31)
[2017-09-22] MEDS: ASPIRIN COATED 81 MG TABLET.EC PO SCH (09:31)
[2017-09-22] MEDS: DULoxetine HCL 30 MG CAPSULE.DR (FP) PO SCH (09:31)
[2017-09-22 10:01] LABS: COCAINE, UR NEGATIVE ng/ml (CUTOFF=300); METHADONE, UR NEGATIVE ng/ml (CUTOFF=300); PHENCYCLIDINE,URINE NEGATIVE ng/ml (CUTOFF=25); URINE AMPHETAMINES NEGATIVE ng/ml (CUTOFF=500); URINE BARBITURATES NEGATIVE ng/ml (CUTOFF=200)
[2017-09-22 10:02] LABS: OPIATES, URI POSITIVE ng/ml (CUTOFF=300); URINE BENZODIAZEPINES POSITIVE ng/ml (CUTOFF=200)
[2017-09-22] MEDS ORDERED: cloNIDine HCL 0.1 MG TABLET PO SCH (10:30)
[2017-09-22] MEDS: ACETAMINOPHEN 325 MG TABLET (FP) PO PRN ×3 (10:32→23:35)
[2017-09-22] MEDS: TIOTROPIUM BROMIDE 18 MCG CAPSULES IH SCH (10:33)
[2017-09-22] MEDS: FLUTICASONE/SALMETEROL 100 MCG/50 MCG DISKUS IH SCH ×2 (10:33→23:05)
[2017-09-22] MEDS: LISINOPRIL 20 MG TABLET (FP) PO SCH (10:33)
--- NOTE | 2017-09-22 11:51 | PN ---
Progress Note (short form) - Note Progress Note: ID Consult dictated 57 y/o female with multiple co-morbidities admitted with 3d hx chest pain,palpitations, dyspnea, R sided abdominal pain CT A/P unrevealing Presently with c/o generalized body pain, blurry vision, bilateral hand numbness RLL infiltrate seen on CT 05/30 now resolved Will obtain flu swab GI evaluation Observe off antibiotics
--- NOTE | 2017-09-22 12:04 | PN ---
Progress Note, Physician Chief Complaint: Abdominal pain Drug abuse History of Present Illness: Patient Name: Yohana Sorto Date: 1960 Address: [address] [place] [address] Sex: Female Rx Written Rx Dispensed Drug Quantity Days Supply Prescriber Name 08/27/2017 08/27/2017 endocet 5-325 tablet 28 7 Elzholfadia, Joshua 07/28/2017 07/28/2017 endocet 5-325 tablet 28 7 Elzholz, Joshua 06/07/2017 06/07/2017 diphenoxylate-atropine 2.5-0.025 mg tablet 240 30 Miriam, Ammir S 05/20/2017 05/21/2017 oxycodone hcl 5 mg tablet 20 5 Maria C Medina MD 04/16/2017 04/16/2017 zolpidem tartrate 10 mg tablet 30 30 Miriam, Ammir S 04/16/2017 04/16/2017 alprazolam 1 mg tablet 21 7 Miriam, Ammir S 02/25/2017 02/25/2017 alprazolam 1 mg tablet 21 7 Bridger Frazier 02/25/2017 02/25/2017 zolpidem tartrate 10 mg tablet 30 30 Bridger Frazier 02/16/2017 02/17/2017 alprazolam 1 mg tablet 21 7 Miriam, Ammir S 02/16/2017 02/17/2017 acetaminophen-cod #3 tablet 28 7 Miriam, Ammir S 02/02/2017 02/02/2017 acetaminophen-cod #3 tablet 14 3 Jayesh Moe 01/04/2017 01/27/2017 oxycodone-acetaminophen 5-325 mg tab 120 30 Joshua Villalobos 01/11/2017 01/11/2017 alprazolam 1 mg tablet 42 15 Miriam, Ammir S 12/25/2016 12/25/2016 endocet 5-325 tablet 120 30 Joshua Villalobos 12/10/2016 12/10/2016 alprazolam 1 mg tablet 90 30 Bridger Frazier 10/23/2016 11/26/2016 zolpidem tartrate 10 mg tablet 30 30 Bridger Frazier 11/24/2016 11/26/2016 acetaminophen-cod #3 tablet 20 5 Bridger Frazier 11/26/2016 11/26/2016 tramadol hcl 50 mg tablet 56 14 Freddie Bridger 11/03/2016 11/03/2016 alprazolam 1 mg tablet 90 30 Freddie Bridger 10/23/2016 10/23/2016 alprazolam 1 mg tablet 30 10 Freddie Bridger 07/27/2016 10/16/2016 zolpidem tartrate 10 mg tablet 30 30 Miriam, Ammir S - Current Medication List Current Medications: Active Medications Acetaminophen (Tylenol -) 650 mg PO Q6H PRN PRN Reason: PAIN LEVEL 1-6 Last Admin: 09/22/17 10:32 Dose: 650 mg Aspirin (Ecotrin -) 81 mg PO DAILY [facility] Last Admin: 09/22/17 09:31 Dose: 81 mg Clonidine (Catapres -) 0.1 mg PO BID [facility] Last Admin: 09/22/17 10:33 Dose: 0.1 mg Diltiazem HCl (Cardizem Cd -) 120 mg PO DAILY [facility] Last Admin: 09/22/17 10:32 Dose: 120 mg Duloxetine HCl (Cymbalta -) 60 mg PO DAILY [facility] Last Admin: 09/22/17 09:31 Dose: 60 mg Gabapentin (Neurontin -) 300 mg PO TID [facility] Last Admin: 09/22/17 06:32 Dose: 300 mg Heparin Sodium (Porcine) (Heparin -) 5,000 unit SQ TID [facility] Last Admin: 09/22/17 06:32 Dose: 5,000 unit Insulin Aspart (Novolog Vial Sliding Scale -) 1 vial SQ [facility]; Protocol Last Admin: 09/22/17 06:33 Dose: 4 unit Levetiracetam (Keppra -) 1,000 mg PO BID [facility] Last Admin: 09/22/17 09:30 Dose: 1,000 mg Lisinopril (Prinivil) 20 mg PO DAILY [facility] Last Admin: 09/22/17 10:33 Dose: 20 mg Pantoprazole Sodium (Protonix -) 40 mg PO DAILY [facility] Last Admin: 09/22/17 09:31 Dose: 40 mg Fluticasone/Salmeterol (Advair 100mcg/50mcg -) 1 puff IH BID [facility] Last Admin: 09/22/17 10:33 Dose: 1 puff Tiotropium [place] (Spiriva -) 1 puff IH DAILY [facility] Last Admin: 09/22/17 10:33 Dose: 1 puff - Objective Vital Signs: Vital Signs Temperature 98.9 F 09/22/17 05:01 Pulse Rate 83 09/22/17 05:01 Respiratory Rate 22 09/22/17 05:01 Blood Pressure 167/97 09/22/17 05:01 O2 Sat by Pulse Oximetry (%) 98 09/22/17 05:20 Constitutional: Yes: Well Nourished, No Distress, Calm Cardiovascular: Yes: Regular Rate and Rhythm Respiratory: Yes: Regular Gastrointestinal: Yes: Normal Bowel Sounds, Soft Labs: CBC, BMP 09/22/17 06:15 09/22/17 06:15 INR, PTT INR 1.07 (0.82-1.09) 09/21/17 17:15 Problem List - Problems (1) Abdominal pain Assessment/Plan: -Seen bY GI -Levaquin 500 mg po daily -Colitis vs gastroenteritis -trial of dicyclomine 10 mg po Q6H PRN Code(s): R10.9 - UNSPECIFIED ABDOMINAL PAIN (2) Benzodiazepine dependence, episodic Code(s): F13.20 - SEDATIVE, HYPNOTIC OR ANXIOLYTIC DEPENDENCE, UNCOMPLICATED (3) Chronic back pain Assessment/Plan: -Neurology and NS consult -needs decompression of spine, never followed up outpatient Code(s): M54.9 - DORSALGIA, UNSPECIFIED; G89.29 - OTHER CHRONIC PAIN (4) Opioid dependence in remission Assessment/Plan: -[facility] consult -Pain management consult -Psych consult Code(s): F11.21 - OPIOID DEPENDENCE, IN REMISSION (5) Type 2 diabetes mellitus with diabetic neuropathy, unspecified Assessment/Plan: -Diabetic diet -BGM ACHS -Insulin levemir and novolog -RD consult -last A1c at 11.2, repeat in AM -Endocrinology consult Code(s): E11.40 - TYPE 2 DIABETES MELLITUS WITH DIABETIC NEUROPATHY, UNSP (6) Bipolar II disorder Code(s): F31.81 - BIPOLAR II DISORDER Assessment/Plan see problem list
--- NOTE | 2017-09-22 12:42 | CON.GI ---
Consult Consult Specialty:: GI Reason for Consultation:: Abd pain, n/v x 3 days - History of Present Illness History of Present Illness: Chart, including prior admissions, reviewed. As per initial intake: This is a 57 y/o woman PMH: C diff colitis, NIDDM, CHF, CAD s/p stent x1, COPD, Hypothyroidism, Anxiety, Depression, Bipolar, Seizures ( 03/2013), Chronic Pain, Former IVDA, Hepatitis C, Cirrhosis. Who presents to the ED with chest pain, epigastric pain, fever and chills x3 days. Patient's last admission 05/27-06/03 Pneumonia, 05/13-05/20 Colitis. Patient describes the pain as sharp to stabbing intermittently to RUQ. Patient denies cough, SOB, constipation, hematochezia, melena, dysuria, hematuria. CT A/P w/ no acute pathology. Transvaginal US: no acute pathology Urine tox positive Mild leukocytosis mild lactic acidodid Normal liver chem, bili, alp. lipase, UA At the time of this encounter, the patient is in mild distress, c/o RLQ pain. Reports onset 3 days ago. No prodromal events such as travel, eating out, new medications, exposure to ill. Associated with nausea and vomiting. No alleviating, or aggravating factors. No diarrhea, melena, hematochezia. No hematemesis, dysphagia, odynophagia. - History Source History Provided By: Patient, Medical Record - Past Medical History FINANCE ASSISTANT: Yes: CVA (? pt thinks she may have had one in the past (L facial droop)), Seizure. No: Alzheimer's Cardio/Vascular: Yes: CAD, HTN. No: AFIB Pulmonary: Yes: Asthma, COPD Gastrointestinal: Yes: Hiatal Hernia, Other ("colitis" mid-April) Hepatobiliary: Yes: Hepatitis C (from a blood transfusion) Infectious Disease: Yes: MRSA (R thigh abscess 02/26) Psych: Yes: Addictions, Anxiety, Bipolar, Depression Musculoskeletal: Yes: Chronic low back pain Endocrine: Yes: Diabetes Mellitus - Past Surgical History Past Surgical History: Yes: Appendectomy, Cholecystectomy (laparoscopic), Colonoscopy, Hysterectomy (vaginal) - Alcohol/Substance Use Hx Alcohol Use: Yes History of Substance Use: reports: Cocaine (crack) - Smoking History Smoking history: Current every day smoker Have you smoked in the past 12 months: No Aproximately how many cigarettes per day: 12 - Social History Usual Living Arrangement: With Spouse Occupation: disabled History of Recent Travel: No Home Medications - Allergies Allergies/Adverse Reactions: Allergies Allergy/AdvReac Type Severity Reaction Status Date / Time No Known Allergies Allergy Verified 05/25/17 12:56 - Home Medications Home Medications: Ambulatory Orders Famotidine [Pepcid -] 40 mg PO DAILY 12/21/14 Tiotropium [place] [Spiriva] 18 mcg IH DAILY 12/21/14 Alprazolam [Xanax] 1 mg PO TID 07/13/16 Ascorbic Acid [Vitamin C -] 500 mg PO BID #60 tablet 02/15/17 Docusate Sodium [Colace -] 300 mg PO HS #30 cap 02/15/17 Insulin (Levemir) [Levemir Flexpen -] 20 units SQ BID #4 pen 02/15/17 Insulin (Novolog) [Novolog Flexpen -] 5 units SQ ACHS #4 pen 02/15/17 Montelukast Na [Singulair -] 10 mg PO HS #30 tablet 02/15/17 Salmeterol/Fluticasone [Advair 100Mcg/50Mcg -] 1 puff IH BID #1 inhaler Sennosides [Senna -] 2 tab PO HS #60 tablet 02/15/17 metFORMIN HCL [Glucophage -] 500 mg PO BID@0700,1630 #60 tablet 02/15/17 Acetaminophen [Tylenol .Regular Strength -] 650 mg PO Q6H PRN tablet 06/03/17 Aspirin Coated [Ecotrin -] 81 mg PO DAILY #30 tablet.ec 06/03/17 Diltiazem Cd [Cardizem Cd -] 120 mg PO DAILY #30 cap.cd.24h 06/03/17 Duloxetine HCl [Cymbalta -] 60 mg PO DAILY #30 capsule. 06/03/17 Gabapentin [Neurontin -] 300 mg PO TID #90 capsule 06/03/17 Lactobacillus Acidophilus [Bacid -] 1 tab PO DAILY #30 tab 06/03/17 Lipase/Protease/Amylase [Alexi Jones 36,000 Units Capsule] 1 cap PO TIDCM #90 capsule. 06/03/17 Lisinopril [Prinivil] 20 mg PO DAILY #30 tablet 06/03/17 Montelukast Na [Singulair -] 10 mg PO HS #30 tablet 06/03/17 Pantoprazole Sodium [Protonix -] 40 mg PO DAILY #30 tablet.ec 06/03/17 Zolpidem Tartrate [Ambien] 10 mg PO HS PRN tablet MDD 1 06/03/17 cloNIDine HCL [Catapres -] 0.1 mg PO BID #60 tablet 06/03/17 hydrALAZINE HCL [Apresoline -] 25 mg PO TID #90 tablet 06/03/17 levETIRAcetam [Keppra -] 1,000 mg PO BID #60 tablet 06/03/17 oxyCODONE HCL [Roxicodone -] 10 mg PO Q6H PRN tablet MDD 4 06/03/17 predniSONE [Deltasone -] 40 mg PO DAILY #10 tablet 06/03/17 Family Disease History - Family Disease History Family Disease History: Diabetes: Mother, Heart Disease: Father, Brother, Sister , Respiratory: Father, Other: Father, Brother, Sister Review of Systems Findings/Remarks: as per HPI, H&P, ED Physical Exam-GI Vital Signs: Vital Signs Temperature 98.9 F 09/22/17 09:00 Pulse Rate 78 09/22/17 09:00 Respiratory Rate 22 09/22/17 09:00 Blood Pressure 161/89 09/22/17 09:00 O2 Sat by Pulse Oximetry (%) 98 09/22/17 09:00 Constitutional: Yes: Anxious, Mild Distress, Other (The pt started to cry when I walked into the room.) Eyes: Yes: Conjunctiva Clear HENT: Yes: Atraumatic Neck: Yes: Supple Cardiovascular: Yes: Regular Rate and Rhythm Respiratory: Yes: Regular Gastrointestinal Inspection: No: Ascites, Distention ...Palpate: Yes: Guarding, Soft, Tenderness. No: Firm/Rigid, Tenderness, Rebound Neurological: Yes: Alert, Oriented Labs: CBC, BMP 09/22/17 06:15 09/22/17 06:15 INR, PTT INR 1.07 (0.82-1.09) 09/21/17 17:15 Laboratory Last Values WBC 10.1 K/mm3 (4.0-10.0) H 09/22/17 06:15 RBC 4.39 M/mm3 (3.60-5.2) 09/22/17 06:15 Hgb 13.2 GM/dL (10.7-15.3) 09/22/17 06:15 Hct 39.6 % (32.4-45.2) 09/22/17 06:15 MCV 90.2 fl (80-96) 09/22/17 06:15 MCH 30.0 pg (25.7-33.7) 09/22/17 06:15 MCHC 33.3 g/dl (32.0-36.0) 09/22/17 06:15 RDW 14.6 % (11.6-15.6) 09/22/17 06:15 Plt Count 278 K/MM3 (134-434) 09/22/17 06:15 MPV 9.2 fl (7.5-11.1) 09/22/17 06:15 Absolute Neuts (auto) 5.5 # 09/22/17 06:15 Neutrophils % 54.1 % (42.8-82.8) 09/22/17 06:15 Lymphocytes % 32.5 % (8-40) D 09/22/17 06:15 Monocytes % 9.9 % (3.8-10.2) 09/22/17 06:15 Eosinophils % 2.9 % (0-4.5) D 09/22/17 06:15 Basophils % 0.6 % (0-2.0) 09/22/17 06:15 Nucleated RBC % 0 % (0-0) 09/22/17 06:15 PT with INR 12.10 SEC (9.7-13.0) 09/21/17 17:15 INR 1.07 (0.82-1.09) 09/21/17 17:15 Sodium 136 mmol/L (136-145) 09/22/17 06:15 Potassium 4.2 mmol/L (3.5-5.1) 09/22/17 06:15 Chloride 97 mmol/L (98-107) L 09/22/17 06:15 Carbon Dioxide 30 mmol/L (21-32) 09/22/17 06:15 Anion Gap 9 (8-16) 09/22/17 06:15 BUN 10 mg/dL (7-18) 09/22/17 06:15 Creatinine 0.5 mg/dL (0.55-1.02) L 09/22/17 06:15 Creat Clearance w eGFR > 60 (>60) 09/21/17 17:15 POC Glucometer 217 UNITS (80-120) 09/22/17 05:15 Random Glucose 230 mg/dL (74-106) H 09/22/17 06:15 Lactic Acid 1.6 mmol/L (0.0-2.0) 09/21/17 22:20 Calcium 8.9 mg/dL (8.5-10.1) 09/22/17 06:15 Magnesium 1.5 mg/dL (1.8-2.4) L 09/21/17 17:15 Total Bilirubin 0.4 mg/dL (0.2-1.0) D 09/21/17 17:15 AST 39 U/L (15-37) H 09/21/17 17:15 ALT 76 U/L (12-78) 09/21/17 17:15 Alkaline Phosphatase 100 U/L (45-117) 09/21/17 17:15 Creatine Kinase 70 IU/L (26-192) 09/21/17 17:15 Troponin I < 0.02 ng/ml (0.00-0.05) 09/22/17 06:15 B-Natriuretic Peptide 298.77 pg/ml (5-125) H 09/21/17 17:15 Total Protein 8.1 g/dl (6.4-8.2) 09/21/17 17:15 Albumin 3.1 g/dl (3.4-5.0) L 09/21/17 17:15 Triglycerides Cancelled 09/22/17 06:56 Cholesterol Cancelled 09/22/17 06:56 Total LDL Cholesterol Cancelled 09/22/17 06:56 HDL Cholesterol Cancelled 09/22/17 06:56 Lipase 54 U/L (73-393) L 09/21/17 17:15 Urine Color Yellow 09/22/17 01:55 Urine Appearance Clear 09/22/17 01:55 Urine pH 5.0 (5.0-8.0) 09/22/17 01:55 Ur Specific [place] > 1.060 (1.001-1.035) H 09/22/17 01:55 Urine Protein 3+ (NEGATIVE) H 09/22/17 01:55 Urine Glucose (UA) 3+ (NEGATIVE) H 09/22/17 01:55 Urine Ketones Negative (NEGATIVE) 09/22/17 01:55 Urine Blood Negative (NEGATIVE) 09/22/17 01:55 Urine Nitrite Negative (NEGATIVE) 09/22/17 01:55 Urine Bilirubin Negative (<2.0 mg/dL) 09/22/17 01:55 Urine Urobilinogen Negative mg/dL (0.2-1.0) 09/22/17 01:55 Ur Leukocyte Esterase Negative (NEGATIVE) 09/22/17 01:55 Urine WBC (Auto) 2 /hpf (3-5) 09/22/17 01:55 Urine RBC (Auto) 8 /hpf (0-3) 09/22/17 01:55 Ur Epithelial Cells Rare /HPF (FEW) 09/22/17 01:55 Urine Mucus Few 09/22/17 01:55 Opiates Screen Positive ng/ml (AIXIBE=088) 09/22/17 06:45 Methadone Screen Negative ng/ml (JZQOLF=362) 09/22/17 06:45 Barbiturate Screen Negative ng/ml (UBBMQP=815) 09/22/17 06:45 Phencyclidine Screen Negative ng/ml (CUTOFF=25) 09/22/17 06:45 Ur Amphetamines Screen Negative ng/ml (JQWIKB=589) 09/22/17 06:45 MDMA (Ecstasy) Screen Negative ng/ml (MNTCJS=154) 09/22/17 06:45 Benzodiazepines Screen Positive ng/ml (WARMGO=145) 09/22/17 06:45 Cocaine Screen Negative ng/ml (KBLZOK=239) 09/22/17 06:45 U Marijuana (THC) Screen Positive ng/ml (CUTOFF=50) 09/22/17 06:45 Imaging - Results Cat Scan: Report Reviewed Ultrasound: Report Reviewed Problem List - Problems (1) Abdominal pain Code(s): R10.9 - UNSPECIFIED ABDOMINAL PAIN (2) Abdominal tenderness Code(s): R10.819 - ABDOMINAL TENDERNESS, UNSPECIFIED SITE (3) Leukocytosis Code(s): D72.829 - ELEVATED WHITE BLOOD CELL COUNT, UNSPECIFIED Assessment/Plan A 57F with abdominal pain of unclear etiology. Given the history of acute onset of the pain, nausea, and vomiting with mild leukocytosis and normal CT/vaginal US, suspect mild gastroeteritis/enterocolitis vs ?mild ischemic colitis? No stigmata of overt, or decompressed liver disease, per labs and physical exam. Agree with supportive care, IVF, bowel rest today, antiemetics PRN. Cipro/ Flagyl. Trial of Bentyl 20 mg po q6 hrs PRN. Observe. Repeat labs in am.
[2017-09-22] MEDS ORDERED: ONDANSETRON *ODT* 4 MG TABLET SL PRN (13:12)
--- NOTE | 2017-09-22 13:37 | CONS ---
DATE OF CONSULTATION: 09/22/2017 HISTORY OF PRESENT ILLNESS: The patient is a 57-year-old female with multiple comorbidities including diabetes, hypertension, coronary artery disease, evaluated for possible pneumonia. She presented to the hospital on September 21, 2017, with complaints of chest pain, palpitations, dyspnea, fever, and chills for the past 3 days. She was evaluated in the emergency room where she was afebrile. She now complains of generalized body pain, blurry vision, and numbness of the hands bilaterally. She also complains of right-sided abdominal pain. She reports nausea, but denies any vomiting. No diarrhea. She reports having a normal bowel movement yesterday. She denies any ill contacts. No recent travel. Her last hospitalization was in May of this year at which time she was treated for pneumonia and C. difficile colitis. PAST MEDICAL HISTORY: Positive for fyt-vbuqccp-obxywdyah diabetes mellitus, hypertension, anxiety, depression, congestive heart failure, COPD, coronary artery disease, hepatitis C, cirrhosis. PAST SURGICAL HISTORY: Status post cholecystectomy and hysterectomy. ALLERGIES: No known allergies. MEDICATIONS: At the present time include Advair, Tylenol, Prinivil, Neurontin, Keppra, Cymbalta, Spiriva, Cardizem, Catapres, Ecotrin, Protonix. SOCIAL HISTORY: She resides at home. She is a smoker, a former opiate user. HIV test in 2013 was negative. SYSTEMS REVIEW: Neurologic: No loss of consciousness, seizure activity, or focal weakness. Cardiac: As per HPI. Respiratory: Negative for cough or sputum production. Gastrointestinal: Negative for vomiting or diarrhea. Genitourinary: Negative for urinary tract infection. Denies dysuria or hematuria. LABORATORY DATA: White count 10.1, hematocrit 39.6, platelet count 276. BUN 10, creatinine 0.5. Urinalysis 2 white cells. PHYSICAL EXAMINATION: General: She is anxious, supine in bed, in no acute respiratory distress. Vital signs: Temperature 98.9, blood pressure 167/97, pulse 83 and regular, respirations 22 per minute. HEENT: Sclerae anicteric. Oropharynx negative. Neck: Supple. Heart: Heart sounds S1, S2. Lungs: Clear. Decreased breath sounds at the bases. Abdomen: Soft. There is right paraumbilical tenderness to palpation. No mass, rebound, or rigidity. Extremities: Negative for edema. IMPRESSION: This is a 57-year-old female with multiple medical comorbidities admitted with 3-day history of chest pain, palpitations, dyspnea, right-sided abdominal pain. CT scan of the abdomen and pelvis unrevealing, previously seen pneumonia from May now resolved. No clear infectious focus. Will obtain flu swab in light of complaints of generalized body pain. Agree with GI evaluation. Await cultures. Observe off antibiotic therapy. Thank you for the kind referral. BHARATHI GUERRERO M.D. [id number]
[2017-09-22] MEDS ORDERED: CIPROFLOXACIN 500 MG TABLET (RESTRICTED TO ID) PO SCH (13:45)
[2017-09-22] MEDS: hydrALAZINE HCL 25 MG TABLET (FP) PO SCH ×2 (15:02→23:06)
[2017-09-22] MEDS: LIPASE/PROTEASE/AMYLASE 36,000 UNIT CAPSULE PO SCH (18:44)
[2017-09-22] MEDS: DOCUSATE SODIUM 100 MG CAPSULE (FP) PO SCH (23:06)
[2017-09-22] MEDS: cloNIDine HCL 0.1 MG TABLET PO SCH (23:06)
[2017-09-22] MEDS: SENNOSIDES 8.6MG TABLET (FP) PO SCH (23:07)
[2017-09-22] MEDS: MONTELUKAST NA 10 MG TABLET PO SCH (23:08)
[2017-09-22] MEDS: ASCORBIC ACID 500 MG TABLET (FP) PO SCH (23:08)
[2017-09-23] MEDS ORDERED: INSULIN (LEVEMIR) 100 UNITS/ML UNITS SQ SCH (07:00)
[2017-09-23] MEDS: LIPASE/PROTEASE/AMYLASE 36,000 UNIT CAPSULE PO SCH ×3 (08:00→17:47)
[2017-09-23] MEDS ORDERED: PT OWN MED DRAWER 7, Y5N ONE ×2 (09:49→20:36)
[2017-09-23] MEDS: TIOTROPIUM BROMIDE 18 MCG CAPSULES IH SCH (09:55)
[2017-09-23] MEDS: PANTOPRAZOLE 40 MG TABLET (FP) PO SCH (09:56)
[2017-09-23] MEDS: ASCORBIC ACID 500 MG TABLET (FP) PO SCH ×2 (09:56→22:09)
[2017-09-23] MEDS: levETIRAcetam 500 MG TABLET (FP) PO SCH ×2 (09:57→22:07)
[2017-09-23] MEDS: ASPIRIN COATED 81 MG TABLET.EC PO SCH (09:57)
[2017-09-23] MEDS: cloNIDine HCL 0.1 MG TABLET PO SCH ×2 (09:58→22:09)
[2017-09-23] MEDS: DULoxetine HCL 30 MG CAPSULE.DR (FP) PO SCH (09:58)
[2017-09-23] MEDS: FLUTICASONE/SALMETEROL 100 MCG/50 MCG DISKUS IH SCH ×2 (09:59→22:15)
[2017-09-23] MEDS: LACTOBACILLUS ACIDOPHILUS 1 TABLET PO SCH (09:59)
[2017-09-23] MEDS ORDERED: LISINOPRIL 20 MG TABLET (FP) PO SCH (10:00)
[2017-09-23] MEDS ORDERED: PATIENT'S OWN MEDICATION (NON-FORMULARY) (Famotidine [Pepcid -] 40 MG) PO SCH (10:00)
--- NOTE | 2017-09-23 11:11 | PN ---
Progress Note, Physician Chief Complaint: Abdominal pain Drug abuse History of Present Illness: Patient Name: Yohana Sorto Date: 1960 Address: [address] [place] [address] Sex: Female Rx Written Rx Dispensed Drug Quantity Days Supply Prescriber Name 08/27/2017 08/27/2017 endocet 5-325 tablet 28 7 Elzholfadia, Joshua 07/28/2017 07/28/2017 endocet 5-325 tablet 28 7 Elzholz, Joshua 06/07/2017 06/07/2017 diphenoxylate-atropine 2.5-0.025 mg tablet 240 30 Miriam, Ammir S 05/20/2017 05/21/2017 oxycodone hcl 5 mg tablet 20 5 Maria C Medina MD 04/16/2017 04/16/2017 zolpidem tartrate 10 mg tablet 30 30 Miriam, Ammir S 04/16/2017 04/16/2017 alprazolam 1 mg tablet 21 7 Miriam, Ammir S 02/25/2017 02/25/2017 alprazolam 1 mg tablet 21 7 Bridger Frazier 02/25/2017 02/25/2017 zolpidem tartrate 10 mg tablet 30 30 Bridger Frazier 02/16/2017 02/17/2017 alprazolam 1 mg tablet 21 7 Miriam, Ammir S 02/16/2017 02/17/2017 acetaminophen-cod #3 tablet 28 7 Miriam, Ammir S 02/02/2017 02/02/2017 acetaminophen-cod #3 tablet 14 3 Jayesh Moe 01/04/2017 01/27/2017 oxycodone-acetaminophen 5-325 mg tab 120 30 Joshua Villalobos 01/11/2017 01/11/2017 alprazolam 1 mg tablet 42 15 Miriam, Ammir S 12/25/2016 12/25/2016 endocet 5-325 tablet 120 30 Joshua Villalobos 12/10/2016 12/10/2016 alprazolam 1 mg tablet 90 30 Bridger Frazier 10/23/2016 11/26/2016 zolpidem tartrate 10 mg tablet 30 30 Brdiger Frazier 11/24/2016 11/26/2016 acetaminophen-cod #3 tablet 20 5 Bridger Frazier 11/26/2016 11/26/2016 tramadol hcl 50 mg tablet 56 14 Freddie Bridger 11/03/2016 11/03/2016 alprazolam 1 mg tablet 90 30 Bridger Frazier 10/23/2016 10/23/2016 alprazolam 1 mg tablet 30 10 Bridger Frazier 07/27/2016 10/16/2016 zolpidem tartrate 10 mg tablet 30 30 Miriam, Ammir S Complaining of generalized pain, Increase BLLE and abdominal pain c/o numbness and tingling in BL Upper and lower extremity. Cipro and flagyl discontinued by ID, Pt started on Levaquin by ID Seen by GI HAS HISTORY OF IVDA - Current Medication List Current Medications: Active Medications Acetaminophen (Tylenol -) 650 mg PO Q6H PRN PRN Reason: PAIN LEVEL 1-6 Last Admin: 09/22/17 23:35 Dose: 650 mg Ascorbic Acid (Vitamin C -) 500 mg PO BID [facility] Last Admin: 09/23/17 09:56 Dose: 500 mg Aspirin (Ecotrin -) 81 mg PO DAILY [facility] Last Admin: 09/23/17 09:57 Dose: 81 mg Clonidine (Catapres -) 0.1 mg PO BID [facility] Last Admin: 09/23/17 09:58 Dose: 0.1 mg Diltiazem HCl (Cardizem Cd -) 120 mg PO DAILY [facility] Last Admin: 09/23/17 09:58 Dose: 120 mg Docusate Sodium (Colace -) 300 mg PO HS [facility] Last Admin: 09/22/17 23:06 Dose: 300 mg Duloxetine HCl (Cymbalta -) 60 mg PO DAILY [facility] Last Admin: 09/23/17 09:58 Dose: 60 mg Gabapentin (Neurontin -) 300 mg PO TID [facility] Last Admin: 09/22/17 23:07 Dose: 300 mg Heparin Sodium (Porcine) (Heparin -) 5,000 unit SQ TID [facility] Last Admin: 09/22/17 23:06 Dose: 5,000 unit Hydralazine HCl (Apresoline -) 25 mg PO TID [facility] Last Admin: 09/22/17 23:06 Dose: Not Given Insulin Aspart (Novolog Vial Sliding Scale -) 1 vial SQ [facility]; Protocol Last Admin: 09/22/17 23:34 Dose: 2 unit Insulin Detemir (Levemir Vial) 20 units SQ ACB [facility] Lactobacillus Acidophilus (Bacid -) 1 tab PO DAILY [facility] Last Admin: 09/23/17 09:59 Dose: 1 tab Levetiracetam (Keppra -) 1,000 mg PO BID [facility] Last Admin: 09/23/17 09:57 Dose: 1,000 mg Levofloxacin (Levaquin -) 500 mg PO DAILY@0600 [facility] Last Admin: 09/22/17 15:02 Dose: 500 mg Lisinopril (Prinivil) 20 mg PO DAILY [facility] Last Admin: 09/22/17 10:33 Dose: 20 mg Montelukast Sodium (Singulair -) 10 mg PO HS [facility] Last Admin: 09/22/17 23:08 Dose: 10 mg Ondansetron HCl (Zofran Odt -) 8 mg SL Q8H PRN PRN Reason: NAUSEA Last Admin: 09/22/17 13:32 Dose: 8 mg Pancrelipase (Creon Dr 36,000 Units Capsule) 1 cap PO TIDCM [facility] Last Admin: 09/23/17 08:00 Dose: 1 cap Pantoprazole Sodium (Protonix -) 40 mg PO DAILY [facility] Last Admin: 09/23/17 09:56 Dose: 40 mg Fluticasone/Salmeterol (Advair 100mcg/50mcg -) 1 puff IH BID [facility] Last Admin: 09/23/17 09:59 Dose: 1 puff Senna (Senna -) 2 tab PO HS [facility] Last Admin: 09/22/17 23:07 Dose: 2 tab Tiotropium [place] (Spiriva -) 1 puff IH DAILY [facility] Last Admin: 09/23/17 09:55 Dose: 1 puff - Objective Vital Signs: Vital Signs Temperature 98.3 F 09/23/17 00:51 Pulse Rate 73 09/23/17 00:51 Respiratory Rate 20 09/23/17 00:51 Blood Pressure 114/75 09/23/17 00:51 O2 Sat by Pulse Oximetry (%) 98 09/22/17 21:00 Constitutional: Yes: Well Nourished, Calm, Anxious Cardiovascular: Yes: Regular Rate and Rhythm Respiratory: Yes: Regular Gastrointestinal: Yes: Normal Bowel Sounds, Soft, Tenderness (RUQ,RLQ) Musculoskeletal: Yes: Back Pain Extremities: Yes: Other (blle PAIN) Edema: No Peripheral Pulses WNL: Yes Neurological: Yes: Alert, Oriented Psychiatric: Yes: Alert, Oriented Labs: CBC, BMP 09/22/17 06:15 09/22/17 06:15 INR, PTT INR 1.07 (0.82-1.09) 09/21/17 17:15 Problem List - Problems (1) Abdominal pain Assessment/Plan: -Seen [facility] GI -Levaquin 500 mg po daily -Colitis vs gastroenteritis -trial of dicyclomine 10 mg po Q6H PRN Code(s): R10.9 - UNSPECIFIED ABDOMINAL PAIN (2) Opioid dependence in remission Assessment/Plan: -BHS consult -Pain management consult -Psych consult Code(s): F11.21 - OPIOID DEPENDENCE, IN REMISSION (3) Pain Assessment/Plan: -Neurology, rheumatology consult -Pain management consult Code(s): R52 - PAIN, UNSPECIFIED (4) Type 2 diabetes mellitus with diabetic neuropathy, unspecified Assessment/Plan: -Diabetic diet -BGM ACHS -Insulin levemir and novolog -RD consult -last A1c at 11.2, repeat in AM -Endocrinology consult Code(s): E11.40 - TYPE 2 DIABETES MELLITUS WITH DIABETIC NEUROPATHY, UNSP (5) Benzodiazepine dependence Assessment/Plan: -Psych,BHS and pain management consult Code(s): F13.20 - SEDATIVE, HYPNOTIC OR ANXIOLYTIC DEPENDENCE, UNCOMPLICATED (6) Bipolar II disorder Code(s): F31.81 - BIPOLAR II DISORDER (7) Chronic back pain Assessment/Plan: -Neurology and NS consult -needs decompression of spine, never followed up outpatient Code(s): M54.9 - DORSALGIA, UNSPECIFIED; G89.29 - OTHER CHRONIC PAIN Assessment/Plan see problem list DVT prophylaxis
[2017-09-23] MEDS: INSULIN SLIDING SCALE (NOVOLOG) 1 VIAL SQ SCH ×3 (11:55→22:14)
--- NOTE | 2017-09-23 14:10 | PN ---
Mental Health Exam - Mental Status Exam Alert and Oriented to: Time, Place, Person Cognitive Function: Grossly Intact Patient Appearance: Unkempt Mood: Apprehensive, Irritable Affect: Labile Patient Behavior: Dependent, Talkative, Cooperative Speech Pattern: Clear Voice Loudness: Moderately Soft/Quiet Thought Process: Flight of Ideas (THOUGHT ARE RACING. ) Thought Disorder: Not Present Hallucinations: None Suicidal Ideation: None, Denies Homicidal Ideation: None, Denies Insight/Judgement: Impaired Sleep: Fair (SLEPT LAST PM. ) Appetite: Fair Muscle strength/Tone: Mild Hypotonicity Gait/Station: Deferred
--- NOTE | 2017-09-23 14:15 | PN ---
Progress Note (short form) - Note Progress Note: CALLED TO SEE 57 YO FEMALE WITH OPOID DEPENDENCE, ANXIETY, DEPRESSION BROUGHT TO HOSPITAL AFTER SEVERE NAUSEAU VOMITING. CLIENT IS CO-OPERATIVE, HYPERVIGILLANT, LISTED BENZODIAZAPINE MEDS JENNIFER RAY , WHAT HELPED HER. SHE DENIES PSYCH ADMISSION BUT IS FOLLOWED BY HER MD/ THERAPIST ON [facility] , STATED SHE HAS NOT MADE RECENT APPOINTMENT S HER FRIEND WAS UNABLE TO GIVE HER A RIDE. cLIENT IS ON CYMBALTA 60 MG A DAY, INTERMITTANTLY COMPLIES. gAPAPENTIN 300MG PO TOID., kEPPRA 1000 PO BID. IN PAST CLIENT TOOK HIGH DOSE 300MG OF SEROQUEL, BUT WAS "TOO DOPEY" r/ o bIPOLAR DISORDER. pLAN. GIVE SEROQUEL 50 MG FOR MOOD DISORDER AT NIGHT FOR INSOMNIA NEEDED, CONTINUE CYMBALTA 60, UNLIKELY CAUSE OF SUCH SEVERE VOMIYING, UNLESS TAKEN UNCORRENTLY. GAPAPENTIN 300MG PO TID AND CONTINUE KEPPRA ORDERED. Problem List - Problems (1) Benzodiazepine dependence, episodic Code(s): F13.20 - SEDATIVE, HYPNOTIC OR ANXIOLYTIC DEPENDENCE, UNCOMPLICATED (2) Insomnia secondary to depression with anxiety Code(s): F51.05 - INSOMNIA DUE TO OTHER MENTAL DISORDER; F41.8 - OTHER SPECIFIED ANXIETY DISORDERS
[2017-09-23] MEDS: HEPARIN NA (PORCINE) 5,000 UNITS/ML 1ML VIAL SQ SCH ×2 (16:18→22:09)
[2017-09-23] MEDS: hydrALAZINE HCL 25 MG TABLET (FP) PO SCH ×2 (16:19→22:08)
[2017-09-23] MEDS: ACETAMINOPHEN 325 MG TABLET (FP) PO PRN (16:19)
[2017-09-23] MEDS: LISINOPRIL 20 MG TABLET (FP) PO SCH (16:20)
[2017-09-23] MEDS: GABAPENTIN 300 MG CAPSULE (FP) PO SCH ×2 (16:20→22:09)
[2017-09-23] MEDS: DICYCLOMINE HCL 10 MG CAPSULE PO PRN (17:47)
--- NOTE | 2017-09-23 18:01 | CONSULT ---
Consult - text type - Consultation Consultation Note: Yohana Sorto is a 57 year old female with multiple medical problems and chronic pain syndrome with longstanding neck and lower back pains. She has undergone a variety of conservative efforts including Physical Therapy and Injections as well as two Lumbar decompressive procedures. She has low back pain and Left leg radicular pain as well as significant neck and shoulder pains and Right greater than Left upper extremity pain, numbness and weakness. She has paresthesias and loss of fine motor skills in her hands and has been dropping things. MRI Lumbar from May shows L45 degenerative changes and suggestion of prior Left hemilaminotomy. There is facet hypertrophy with ligamentum flavum thickening and significant effacement of the Lateral recess. There is loss of disc space height and Modic changes suggestive of pathology consistent with the instability symptoms which she describes. There is mild disc bulging at L5S1. There is no Cervical MRI. I feel that her current presenting complaints of abdominal pain warrants initial attention, however, Cervical MRI would be reasonable as she is manifesting signs and symptoms of Cervical spondylotic myelopathy.
[2017-09-23] MEDS ORDERED: KETOROLAC TROMETHAMINE 15 MG/ML VIAL IVPB PRN (20:43)
[2017-09-23] MEDS: DOCUSATE SODIUM 100 MG CAPSULE (FP) PO SCH (22:08)
[2017-09-23] MEDS: SENNOSIDES 8.6MG TABLET (FP) PO SCH (22:08)
[2017-09-23] MEDS: MONTELUKAST NA 10 MG TABLET PO SCH (22:09)
[2017-09-23] MEDS: KETOROLAC TROMETHAMINE 15 MG/ML VIAL IM PRN (22:53)
--- NOTE | 2017-09-23 23:16 | CONSULT ---
Consult Consult Specialty:: endocrine Referred by:: [email or web address] [email or web address] Reason for Consultation:: diabetes mellitus - History of Present Illness Chief Complaint: high sugars History of Present Illness: 57 y/o woman PMH: C diff colitis, NIDDM, CHF, CAD s/p stent x1, COPD, Hypothyroidism, Anxiety, Depression, Bipolar, Seizures (03/2013), Chronic Pain, Former IVDA, Hepatitis C, Cirrhosis. Who presents to the ED with chest pain, epigastric pain, fever and chills x3 days. Patient's last admission 05/27-06/03 Pneumonia, 05/13-05/20 Colitis. Patient describes the pain as sharp to stabbing intermittently to RUQ. Patient denies hypoglycemia,nausea or vomiting - Past Medical History [employer]: Yes: CVA (? pt thinks she may have had one in the past (L facial droop)), Seizure. No: Alzheimer's Cardio/Vascular: Yes: CAD, HTN. No: AFIB Pulmonary: Yes: Asthma, COPD Gastrointestinal: Yes: Hiatal Hernia, Other ("colitis" mid-April) Hepatobiliary: Yes: Hepatitis C (from a blood transfusion) Infectious Disease: Yes: MRSA (R thigh abscess 02/26) Psych: Yes: Addictions, Anxiety, Bipolar, Depression Musculoskeletal: Yes: Chronic low back pain Endocrine: Yes: Diabetes Mellitus - Past Surgical History Past Surgical History: Yes: Appendectomy, Cholecystectomy (laparoscopic), Colonoscopy, Hysterectomy (vaginal) - Alcohol/Substance Use Hx Alcohol Use: Yes History of Substance Use: reports: Cocaine (crack) - Smoking History Smoking history: Current every day smoker Have you smoked in the past 12 months: No Aproximately how many cigarettes per day: 12 - Social History Usual Living Arrangement: With Spouse Occupation: disabled History of Recent Travel: No Home Medications - Allergies Allergies/Adverse Reactions: Allergies Allergy/AdvReac Type Severity Reaction Status Date / Time No Known Allergies Allergy Verified 05/25/17 12:56 - Home Medications Home Medications: Ambulatory Orders Famotidine [Pepcid -] 40 mg PO DAILY 12/21/14 Tiotropium [place] [Spiriva] 18 mcg IH DAILY 12/21/14 Alprazolam [Xanax] 1 mg PO TID 07/13/16 Ascorbic Acid [Vitamin C -] 500 mg PO BID #60 tablet 02/15/17 Docusate Sodium [Colace -] 300 mg PO HS #30 cap 02/15/17 Insulin (Levemir) [Levemir Flexpen -] 20 units SQ BID #4 pen 02/15/17 Insulin (Novolog) [Novolog Flexpen -] 5 units SQ ACHS #4 pen 02/15/17 Montelukast Na [Singulair -] 10 mg PO HS #30 tablet 02/15/17 Salmeterol/Fluticasone [Advair 100Mcg/50Mcg -] 1 puff IH BID #1 inhaler Sennosides [Senna -] 2 tab PO HS #60 tablet 02/15/17 metFORMIN HCL [Glucophage -] 500 mg PO BID@0700,1630 #60 tablet 02/15/17 Acetaminophen [Tylenol .Regular Strength -] 650 mg PO Q6H PRN tablet 06/03/17 Aspirin Coated [Ecotrin -] 81 mg PO DAILY #30 tablet.ec 06/03/17 Diltiazem Cd [Cardizem Cd -] 120 mg PO DAILY #30 cap.cd.24h 06/03/17 Duloxetine HCl [Cymbalta -] 60 mg PO DAILY #30 capsule. 06/03/17 Gabapentin [Neurontin -] 300 mg PO TID #90 capsule 06/03/17 Lactobacillus Acidophilus [Bacid -] 1 tab PO DAILY #30 tab 06/03/17 Lipase/Protease/Amylase [Alexi Jones 36,000 Units Capsule] 1 cap PO TIDCM #90 capsule. 06/03/17 Lisinopril [Prinivil] 20 mg PO DAILY #30 tablet 06/03/17 Montelukast Na [Singulair -] 10 mg PO HS #30 tablet 06/03/17 Pantoprazole Sodium [Protonix -] 40 mg PO DAILY #30 tablet.ec 06/03/17 Zolpidem Tartrate [Ambien] 10 mg PO HS PRN tablet MDD 1 06/03/17 cloNIDine HCL [Catapres -] 0.1 mg PO BID #60 tablet 06/03/17 hydrALAZINE HCL [Apresoline -] 25 mg PO TID #90 tablet 06/03/17 levETIRAcetam [Keppra -] 1,000 mg PO BID #60 tablet 06/03/17 oxyCODONE HCL [Roxicodone -] 10 mg PO Q6H PRN tablet MDD 4 06/03/17 predniSONE [Deltasone -] 40 mg PO DAILY #10 tablet 06/03/17 Family Disease History - Family Disease History Family Disease History: Diabetes: Mother, Heart Disease: Father, Brother, Sister , Respiratory: Father, Other: Father, Brother, Sister Review of Systems - Review of Systems Constitutional: reports: Lethargy, Weakness Eyes: reports: Blurred Vision HENT: reports: No Symptoms Neck: reports: Pain on Movement Cardiovascular: reports: Shortness of Breath Respiratory: reports: Exercise Intolerance, SOB on Exertion Gastrointestinal: reports: Bloating, Constipation Breasts: reports: No Symptoms Reported Musculoskeletal: reports: Back Pain Integumentary: reports: No Symptoms Neurological: reports: Unsteady Gait, Weakness Endocrine: reports: Excessive Sweating Psychiatric: reports: Altered Sleep Pattern, Anxiety, Depression Physical Exam Vital Signs: Vital Signs Temperature 98.3 F 09/23/17 22:21 Pulse Rate 72 09/23/17 22:21 Respiratory Rate 20 09/23/17 22:21 Blood Pressure 131/56 09/23/17 22:21 O2 Sat by Pulse Oximetry (%) 96 09/23/17 09:00 Constitutional: Yes: Anxious Eyes: Yes: EOM Intact HENT: Yes: Normocephalic Neck: Yes: Trachea Midline Cardiovascular: Yes: Regular Rate and Rhythm Respiratory: Yes: CTA Bilaterally Gastrointestinal: Yes: Normal Bowel Sounds ...Rectal Exam: Yes: Deferred Renal/: Yes: WNL Breast(s): Yes: WNL Musculoskeletal: Yes: Joint Swelling, Muscle Pain, Muscle Weakness Neurological: Yes: Alert, Oriented Labs: CBC, BMP 09/22/17 06:15 09/22/17 06:15 Problem List - Problems (1) Type 2 diabetes mellitus with other circulatory complications Code(s): E11.59 - TYPE 2 DIABETES MELLITUS WITH OTH CIRCULATORY COMPLICATIONS (2) Abdominal pain Code(s): R10.9 - UNSPECIFIED ABDOMINAL PAIN (3) Abdominal tenderness Code(s): R10.819 - ABDOMINAL TENDERNESS, UNSPECIFIED SITE (4) Chest pain Code(s): R07.9 - CHEST PAIN, UNSPECIFIED (5) Chronic back pain Code(s): M54.9 - DORSALGIA, UNSPECIFIED; G89.29 - OTHER CHRONIC PAIN (6) Insomnia secondary to depression with anxiety Code(s): F51.05 - INSOMNIA DUE TO OTHER MENTAL DISORDER; F41.8 - OTHER SPECIFIED ANXIETY DISORDERS (7) Intractable abdominal pain Code(s): R10.9 - UNSPECIFIED ABDOMINAL PAIN (8) Leukocytosis Code(s): D72.829 - ELEVATED WHITE BLOOD CELL COUNT, UNSPECIFIED Assessment/Plan Current Active Problems Abdominal pain (Acute) Abdominal tenderness (Acute) Benzodiazepine dependence, episodic (Acute) Chest pain (Acute) Chronic back pain (Acute) Insomnia secondary to depression with anxiety (Acute) Intractable abdominal pain (Acute) Leukocytosis (Acute) Palpitations (Acute) Pneumonia (Acute) diabetes mellitus hyperglycemia neuropathy Laboratory Results - last 24 hr 09/22/17 09/23/17 09/23/17 23:31 05:51 11:52 POC Glucometer 172 203 261 09/23/17 09/23/17 17:28 22:11 POC Glucometer 182 226 Laboratory Tests 09/22/17 09/22/17 09/22/17 06:15 06:15 12:46 WBC 10.1 H RBC 4.39 Hgb 13.2 Hct 39.6 MCV 90.2 MCH 30.0 MCHC 33.3 RDW 14.6 Plt Count 278 Sodium 136 Potassium 4.2 Chloride 97 L Carbon Dioxide 30 Anion Gap 9 BUN 10 Creatinine 0.5 L POC Glucometer 325 plan: bgm qid novolog insulin use levemir bid doses diet and nutrtion refer for insulin pump use
[2017-09-24] MEDS: GABAPENTIN 300 MG CAPSULE (FP) PO SCH ×3 (06:07→22:20)
[2017-09-24] MEDS: HEPARIN NA (PORCINE) 5,000 UNITS/ML 1ML VIAL SQ SCH ×4 (06:07→22:17)
[2017-09-24] MEDS: hydrALAZINE HCL 25 MG TABLET (FP) PO SCH ×3 (06:07→22:19)
[2017-09-24] MEDS: INSULIN SLIDING SCALE (NOVOLOG) 1 VIAL SQ SCH ×5 (06:08→22:21)
[2017-09-24] MEDS: INSULIN (LEVEMIR) 100 UNITS/ML UNITS SQ SCH (06:08)
[2017-09-24] MEDS ORDERED: INSULIN (NOVOLOG) ASPART 100 UNITS/ML 10ML VIAL ONE ×2 (06:24→20:51)
[2017-09-24] MEDS ORDERED: PT OWN MED DRAWER 7, Y5N ONE ×2 (06:24→08:57)
[2017-09-24 06:40] LABS: BASO % 0.7 % (0-2.0); EOS % 3.7 % (0-4.5); HEMATOCRIT 38.3 % (32.4-45.2); HEMOGLOBIN 12.9 GM/dL (10.7-15.3); LYMPH % 35.5 % (8-40); MCH 30.5 pg (25.7-33.7); MCHC 33.6 g/dl (32.0-36.0); MEAN CELL VOLUME 90.6 fl (80-96); MEAN PLT VOLUME 8.8 fl (7.5-11.1); MONO % 8.5 % (3.8-10.2); NEUT % 51.6 % (42.8-82.8); PLATELET COUNT 278 K/MM3 (134-434); RBC 4.23 M/mm3 (3.60-5.2); RDW 14.9 % (11.6-15.6); WHITE BLOOD COUNT 9.7 K/mm3 (4.0-10.0)
[2017-09-24 06:54] LABS: ALBUMIN 2.7 g/dl (3.4-5.0); ANION GAP 6 (8-16); BLOOD UREA NITROGEN 14 mg/dL (7-18); CALCIUM 8.4 mg/dL (8.5-10.1); CHLORIDE 100 mmol/L (98-107); CO2 32 mmol/L (21-32); GLUCOSE,RANDOM 205 mg/dL (74-106); POTASSIUM 4.1 mmol/L (3.5-5.1); SGOT/AST 28 U/L (15-37); SGPT/ALT 48 U/L (12-78); SODIUM 138 mmol/L (136-145)
[2017-09-24 06:56] LABS: ALK PHOS 78 U/L (45-117); BILIRUBIN,TOTAL 0.5 mg/dL (0.2-1.0); CREATININE 0.6 mg/dL (0.55-1.02); TOT PROT 6.7 g/dl (6.4-8.2)
[2017-09-24] MEDS: KETOROLAC TROMETHAMINE 15 MG/ML VIAL IM PRN ×2 (07:20→15:20)
[2017-09-24] MEDS: LIPASE/PROTEASE/AMYLASE 36,000 UNIT CAPSULE PO SCH ×3 (08:03→16:55)
[2017-09-24] MEDS: LISINOPRIL 20 MG TABLET (FP) PO SCH (09:04)
[2017-09-24] MEDS: ASCORBIC ACID 500 MG TABLET (FP) PO SCH ×2 (09:04→22:21)
[2017-09-24] MEDS: ASPIRIN COATED 81 MG TABLET.EC PO SCH (09:04)
[2017-09-24] MEDS: TIOTROPIUM BROMIDE 18 MCG CAPSULES IH SCH (09:05)
[2017-09-24] MEDS: DULoxetine HCL 30 MG CAPSULE.DR (FP) PO SCH (09:05)
[2017-09-24] MEDS: PANTOPRAZOLE 40 MG TABLET (FP) PO SCH (09:05)
[2017-09-24] MEDS: LACTOBACILLUS ACIDOPHILUS 1 TABLET PO SCH (09:05)
[2017-09-24] MEDS: cloNIDine HCL 0.1 MG TABLET PO SCH ×2 (09:06→22:20)
[2017-09-24] MEDS: levETIRAcetam 500 MG TABLET (FP) PO SCH ×2 (09:06→22:20)
--- NOTE | 2017-09-24 09:25 | CONSULT ---
Consult - text type - Consultation Consultation Note: Neurology History of Present Illness The patient is a 57 year old female, with a significant PMH of C. diff colitis, NIDDM, HTN, anxiety, depression, chronic pain, former IVDA, CHF, COPD, who presented to the emergency department with 3 days of intermittent chest pain and epigastric abdominal pain. The patient stated the chest pain and epigastric abdominal pain has been progressively worsening over the past 3 days and is worse with movement/ changing positions. The patient endorses nausea without vomiting secondary to the chest pain/ epigastric abdominal pain. Consulted for further evaluation. Ordered for EMG/NCS which is occuring this AM, will follow up. Discomfort appears to be more abdominal in location. NSGY note reviewed and also believes abdominal in location, though does have significant spinal pathology as noted on L spine MRI from May which I reviewed. Does not seem that lumbar issues are etiology for her current complaints. Past History - Past Medical History Anemia: No Asthma: Yes Cancer: No Cardiac Disorders: Yes (Stent X 1) CVA: No COPD: Yes CHF: Yes DVT: No Dementia: No Diabetes: Yes GI Disorders: No Disorders: No HTN: Yes Hypercholesterolemia: Yes Kidney Stones: Yes Liver Disease: Yes (Cirrhosis, Hepatitis C) Psychiatric Problems: Yes (bipolar) Seizures: Yes (Last episode 03/2013) Thyroid Disease: Yes - Surgical History Abdominal Surgery: No Appendectomy: Yes (age 11) Cardiac Surgery: Yes (Stent X 1) Cholecystectomy: Yes Lung Surgery: No Neurologic Surgery: No Orthopedic Surgery: Yes (Lower back 02/2013) - Family Disease History Family Disease History: Diabetes: Brother, Sister, Heart Disease: Brother, Sister - Immunization History Td Vaccination: Yes Immunization Up to Date: Yes - Suicide/Smoking/Psychosocial Hx Smoking Status: Yes Smoking History: Current every day smoker Have you smoked in the past 12 months: No Number of Cigarettes Smoked Daily: 10 Information on smoking cessation initiated: Yes 'Breaking Loose' booklet given: 09/21/17 Hx Alcohol Use: No Drug/Substance Use Hx: No Substance Use Type: Opiates, Prescribed Hx Substance Use Treatment: Yes (detox) - Past Medical History Allergies/Adverse Reactions: Allergies Allergy/AdvReac Type Severity Reaction Status Date / Time No Known Allergies Allergy Verified 05/25/17 12:56 Home Medications: Ambulatory Orders Famotidine [Pepcid -] 40 mg PO DAILY 12/21/14 Tiotropium [place] [Spiriva] 18 mcg IH DAILY 12/21/14 Alprazolam [Xanax] 1 mg PO TID 07/13/16 Ascorbic Acid [Vitamin C -] 500 mg PO BID #60 tablet 02/15/17 Docusate Sodium [Colace -] 300 mg PO HS #30 cap 02/15/17 Insulin (Levemir) [Levemir Flexpen -] 20 units SQ BID #4 pen 02/15/17 Insulin (Novolog) [Novolog Flexpen -] 5 units SQ ACHS #4 pen 02/15/17 Montelukast Na [Singulair -] 10 mg PO HS #30 tablet 02/15/17 Salmeterol/Fluticasone [Advair 100Mcg/50Mcg -] 1 puff IH BID #1 inhaler Sennosides [Senna -] 2 tab PO HS #60 tablet 02/15/17 metFORMIN HCL [Glucophage -] 500 mg PO BID@0700,1630 #60 tablet 02/15/17 Acetaminophen [Tylenol .Regular Strength -] 650 mg PO Q6H PRN tablet 06/03/17 Aspirin Coated [Ecotrin -] 81 mg PO DAILY #30 tablet.ec 06/03/17 Diltiazem Cd [Cardizem Cd -] 120 mg PO DAILY #30 cap.cd.24h 06/03/17 Duloxetine HCl [Cymbalta -] 60 mg PO DAILY #30 capsule. 06/03/17 Gabapentin [Neurontin -] 300 mg PO TID #90 capsule 06/03/17 Lactobacillus Acidophilus [Bacid -] 1 tab PO DAILY #30 tab 06/03/17 Lipase/Protease/Amylase [Alexi Jones 36,000 Units Capsule] 1 cap PO TIDCM #90 capsule. 06/03/17 Lisinopril [Prinivil] 20 mg PO DAILY #30 tablet 06/03/17 Montelukast Na [Singulair -] 10 mg PO HS #30 tablet 06/03/17 Pantoprazole Sodium [Protonix -] 40 mg PO DAILY #30 tablet.ec 06/03/17 Zolpidem Tartrate [Ambien] 10 mg PO HS PRN tablet MDD 1 06/03/17 cloNIDine HCL [Catapres -] 0.1 mg PO BID #60 tablet 06/03/17 hydrALAZINE HCL [Apresoline -] 25 mg PO TID #90 tablet 06/03/17 levETIRAcetam [Keppra -] 1,000 mg PO BID #60 tablet 06/03/17 oxyCODONE HCL [Roxicodone -] 10 mg PO Q6H PRN tablet MDD 4 06/03/17 predniSONE [Deltasone -] 40 mg PO DAILY #10 tablet 06/03/17 Review of Systems GENERAL/CONSTITUTIONAL: (+) Fever and chills. No weakness. HEAD, EYES, EARS, NOSE AND THROAT: No change in vision. No ear pain or discharge. No sore throat. CARDIOVASCULAR: (+) Palpitations. (+) Chest pain. No shortness of breath. RESPIRATORY: No cough, wheezing, or hemoptysis. GASTROINTESTINAL: (+) Epigastric abdominal pain. (+) Nausea. No vomiting, diarrhea or constipation. GENITOURINARY: No dysuria, frequency, or change in urination. MUSCULOSKELETAL: No joint or muscle swelling or pain. No neck or back pain. SKIN: No rash NEUROLOGIC: No headache, vertigo, loss of consciousness, or change in strength/ sensation. ENDOCRINE: No increased thirst. No abnormal weight change. HEMATOLOGIC/LYMPHATIC: No anemia, easy bleeding, or history of blood clots. ALLERGIC/IMMUNOLOGIC: No hives or skin allergy. *Physical Exam - Vital Signs Temperature 98.3 F 09/24/17 05:37 Pulse Rate 82 09/24/17 05:37 Respiratory Rate 20 09/24/17 05:37 Blood Pressure 120/65 09/24/17 05:37 O2 Sat by Pulse Oximetry (%) 98 09/23/17 21:00 GENERAL: Awake, alert, and fully oriented, uncomfortable appeearing HEAD: No signs of trauma EYES: PERRLA, EOMI, sclera anicteric, conjunctiva clear ENT: Auricles normal inspection, hearing grossly normal, nares patent, oropharynx clear without exudates. Moist mucosa NECK: Normal ROM, supple, no lymphadenopathy, JVD, or masses LUNGS: Breath sounds equal, clear to auscultation bilaterally. No wheezes, and no crackles HEART: +Tachycardia. Regular rhythm, normal S1 and S2, no murmurs, rubs or gallops BACK: +Right sided CVA tenderness. ABDOMEN: +Tender to right upper quadrant and epigastric region. Soft, normoactive bowel sounds. No guarding, no rebound. No masses EXTREMITIES: Normal range of motion, no edema. No clubbing or cyanosis. No cords, erythema, or tenderness NEUROLOGICAL: Cranial nerves II through XII grossly intact. Normal speech, no facial droop, moves upper extremities 5+, lower extremities 5- on best effort, gait deferred SKIN: +Diaphoretic. Normal turgor, no rashes or lesions noted. CBCD WBC 9.7 K/mm3 (4.0-10.0) 09/24/17 05:15 RBC 4.23 M/mm3 (3.60-5.2) 09/24/17 05:15 Hgb 12.9 GM/dL (10.7-15.3) 09/24/17 05:15 Hct 38.3 % (32.4-45.2) 09/24/17 05:15 MCV 90.6 fl (80-96) 09/24/17 05:15 MCHC 33.6 g/dl (32.0-36.0) 09/24/17 05:15 RDW 14.9 % (11.6-15.6) 09/24/17 05:15 Plt Count 278 K/MM3 (134-434) 09/24/17 05:15 MPV 8.8 fl (7.5-11.1) 09/24/17 05:15 CMP Sodium 138 mmol/L (136-145) 09/24/17 05:15 Potassium 4.1 mmol/L (3.5-5.1) 09/24/17 05:15 Chloride 100 mmol/L (98-107) 09/24/17 05:15 Carbon Dioxide 32 mmol/L (21-32) 09/24/17 05:15 Anion Gap 6 (8-16) L 09/24/17 05:15 BUN 14 mg/dL (7-18) 09/24/17 05:15 Creatinine 0.6 mg/dL (0.55-1.02) 09/24/17 05:15 Creat Clearance w eGFR > 60 (>60) 09/24/17 05:15 Random Glucose 205 mg/dL (74-106) H 09/24/17 05:15 Calcium 8.4 mg/dL (8.5-10.1) L 09/24/17 05:15 Total Bilirubin 0.5 mg/dL (0.2-1.0) D 09/24/17 05:15 AST 28 U/L (15-37) 09/24/17 05:15 ALT 48 U/L (12-78) 09/24/17 05:15 Alkaline Phosphatase 78 U/L (45-117) 09/24/17 05:15 Total Protein 6.7 g/dl (6.4-8.2) 09/24/17 05:15 Albumin 2.7 g/dl (3.4-5.0) L 09/24/17 05:15 CARDIAC ENZYMES Creatine Kinase 70 IU/L (26-192) 09/21/17 17:15 Troponin I < 0.02 ng/ml (0.00-0.05) 09/22/17 06:15 MRI L spine reviewed CT Abd/pelvis reviewed Plan: 57 year old female, with a significant PMH of C. diff colitis, NIDDM, HTN, anxiety, depression, chronic pain, former IVDA, CHF, COPD, who presented to the emergency department with 3 days of intermittent chest pain and epigastric abdominal pain. The patient stated the chest pain and epigastric abdominal pain has been progressively worsening over the past 3 days and is worse with movement / changing positions. The patient endorses nausea without vomiting secondary to the chest pain/ epigastric abdominal pain. Consulted for further evaluation. Ordered for EMG/NCS which is occuring this AM. NSGY note reviewed and also believes abdominal in location, though does have significant spinal pathology as noted on L spine MRI from May which I reviewed. Does not seem that lumbar issues are etiology for her current complaints. Is already on gabapentin 300mg with full dose duloxetine 60mg as well as Roxicodone. Pain mgmt consulted. Caution with medication. Fall precautions, continue using cane. Discomfort appears to be more abdominal in location.
--- NOTE | 2017-09-24 09:43 | PN ---
Progress Note, Physician History of Present Illness: c/o ongoing generalized abdominal pain w/o nausea, vomiting, diarrhea. No events overnight. - Current Medication List Current Medications: Active Medications Acetaminophen (Tylenol -) 650 mg PO Q6H PRN PRN Reason: PAIN LEVEL 1-6 Last Admin: 09/23/17 16:19 Dose: 650 mg Ascorbic Acid (Vitamin C -) 500 mg PO BID [facility] Last Admin: 09/24/17 09:04 Dose: 500 mg Aspirin (Ecotrin -) 81 mg PO DAILY [facility] Last Admin: 09/24/17 09:04 Dose: 81 mg Clonidine (Catapres -) 0.1 mg PO BID [facility] Last Admin: 09/24/17 09:06 Dose: 0.1 mg Dicyclomine HCl (Bentyl -) 10 mg PO Q6H PRN PRN Reason: MUSCLE SPASMS Last Admin: 09/23/17 17:47 Dose: 10 mg Diltiazem HCl (Cardizem Cd -) 120 mg PO DAILY [facility] Last Admin: 09/24/17 09:04 Dose: 120 mg Docusate Sodium (Colace -) 300 mg PO HS [facility] Last Admin: 09/23/17 22:08 Dose: 300 mg Duloxetine HCl (Cymbalta -) 60 mg PO DAILY [facility] Last Admin: 09/24/17 09:05 Dose: 60 mg Gabapentin (Neurontin -) 300 mg PO TID [facility] Last Admin: 09/24/17 06:07 Dose: 300 mg Heparin Sodium (Porcine) (Heparin -) 5,000 unit SQ TID [facility] Last Admin: 09/24/17 06:07 Dose: 5,000 unit Hydralazine HCl (Apresoline -) 25 mg PO TID [facility] Last Admin: 09/24/17 06:07 Dose: 25 mg Insulin Aspart (Novolog Vial Sliding Scale -) 1 vial SQ ACHS [facility]; Protocol Last Admin: 09/24/17 06:08 Dose: 4 unit Insulin Detemir (Levemir Vial) 25 units SQ ACBK [facility] Last Admin: 09/24/17 06:08 Dose: 25 unit Ketorolac Tromethamine (Toradol Injection -) 15 mg IM Q8H PRN PRN Reason: PAIN LEVEL 7 - 10 Stop: 09/28/17 20:42 Last Admin: 09/24/17 07:20 Dose: 15 mg Lactobacillus Acidophilus (Bacid -) 1 tab PO DAILY [facility] Last Admin: 09/24/17 09:05 Dose: 1 tab Levetiracetam (Keppra -) 1,000 mg PO BID [facility] Last Admin: 09/24/17 09:06 Dose: 1,000 mg Levofloxacin (Levaquin -) 500 mg PO DAILY@0600 [facility] Last Admin: 09/24/17 06:07 Dose: 500 mg Lisinopril (Prinivil) 20 mg PO DAILY [facility] Last Admin: 09/24/17 09:04 Dose: 20 mg Montelukast Sodium (Singulair -) 10 mg PO HS [facility] Last Admin: 09/23/17 22:09 Dose: 10 mg Ondansetron HCl (Zofran Odt -) 8 mg SL Q8H PRN PRN Reason: NAUSEA Last Admin: 09/22/17 13:32 Dose: 8 mg Pancrelipase (Creon Dr 36,000 Units Capsule) 1 cap PO TIDCM [facility] Last Admin: 09/24/17 08:03 Dose: 1 cap Pantoprazole Sodium (Protonix -) 40 mg PO DAILY [facility] Last Admin: 09/24/17 09:05 Dose: 40 mg Fluticasone/Salmeterol (Advair 100mcg/50mcg -) 1 puff IH BID [facility] Last Admin: 09/23/17 22:15 Dose: 1 puff Senna (Senna -) 2 tab PO HS [facility] Last Admin: 09/23/17 22:08 Dose: 2 tab Tiotropium [place] (Spiriva -) 1 puff IH DAILY [facility] Last Admin: 09/24/17 09:05 Dose: 1 puff - Objective Vital Signs: Vital Signs Temperature 98.3 F 09/24/17 05:37 Pulse Rate 82 09/24/17 05:37 Respiratory Rate 20 09/24/17 05:37 Blood Pressure 120/65 09/24/17 05:37 O2 Sat by Pulse Oximetry (%) 97 09/24/17 09:00 Constitutional: Yes: Well Nourished, No Distress Eyes: Yes: Conjunctiva Clear Gastrointestinal: Yes: Normal Bowel Sounds, Soft, Tenderness (generalized). No : Ascites, Distention, Melena, Palpable Mass, Vomiting Neurological: Yes: Alert, Oriented Labs: CBC, BMP 09/24/17 05:15 09/24/17 05:15 INR, PTT INR 1.07 (0.82-1.09) 09/21/17 17:15 Laboratory Last Values WBC 9.7 K/mm3 (4.0-10.0) 09/24/17 05:15 RBC 4.23 M/mm3 (3.60-5.2) 09/24/17 05:15 Hgb 12.9 GM/dL (10.7-15.3) 09/24/17 05:15 Hct 38.3 % (32.4-45.2) 09/24/17 05:15 MCV 90.6 fl (80-96) 09/24/17 05:15 MCH 30.5 pg (25.7-33.7) 09/24/17 05:15 MCHC 33.6 g/dl (32.0-36.0) 09/24/17 05:15 RDW 14.9 % (11.6-15.6) 09/24/17 05:15 Plt Count 278 K/MM3 (134-434) 09/24/17 05:15 MPV 8.8 fl (7.5-11.1) 09/24/17 05:15 Absolute Neuts (auto) 5.0 # 09/24/17 05:15 Neutrophils % 51.6 % (42.8-82.8) 09/24/17 05:15 Lymphocytes % 35.5 % (8-40) 09/24/17 05:15 Monocytes % 8.5 % (3.8-10.2) 09/24/17 05:15 Eosinophils % 3.7 % (0-4.5) 09/24/17 05:15 Basophils % 0.7 % (0-2.0) 09/24/17 05:15 Nucleated RBC % 0 % (0-0) 09/24/17 05:15 PT with INR 12.10 SEC (9.7-13.0) 09/21/17 17:15 INR 1.07 (0.82-1.09) 09/21/17 17:15 Sodium 138 mmol/L (136-145) 09/24/17 05:15 Potassium 4.1 mmol/L (3.5-5.1) 09/24/17 05:15 Chloride 100 mmol/L (98-107) 09/24/17 05:15 Carbon Dioxide 32 mmol/L (21-32) 09/24/17 05:15 Anion Gap 6 (8-16) L 09/24/17 05:15 BUN 14 mg/dL (7-18) 09/24/17 05:15 Creatinine 0.6 mg/dL (0.55-1.02) 09/24/17 05:15 Creat Clearance w eGFR > 60 (>60) 09/24/17 05:15 POC Glucometer 246 UNITS (80-120) 09/24/17 05:59 Random Glucose 205 mg/dL (74-106) H 09/24/17 05:15 Lactic Acid 1.6 mmol/L (0.0-2.0) 09/21/17 22:20 Calcium 8.4 mg/dL (8.5-10.1) L 09/24/17 05:15 Magnesium 1.5 mg/dL (1.8-2.4) L 09/21/17 17:15 Total Bilirubin 0.5 mg/dL (0.2-1.0) D 09/24/17 05:15 AST 28 U/L (15-37) 09/24/17 05:15 ALT 48 U/L (12-78) 09/24/17 05:15 Alkaline Phosphatase 78 U/L (45-117) 09/24/17 05:15 Creatine Kinase 70 IU/L (26-192) 09/21/17 17:15 Troponin I < 0.02 ng/ml (0.00-0.05) 09/22/17 06:15 C-Reactive Protein < 0.3 MG/DL (0.00-0.3) 09/24/17 05:15 B-Natriuretic Peptide 298.77 pg/ml (5-125) H 09/21/17 17:15 Total Protein 6.7 g/dl (6.4-8.2) 09/24/17 05:15 Albumin 2.7 g/dl (3.4-5.0) L 09/24/17 05:15 Triglycerides Cancelled 09/22/17 06:56 Cholesterol Cancelled 09/22/17 06:56 Total LDL Cholesterol Cancelled 09/22/17 06:56 HDL Cholesterol Cancelled 09/22/17 06:56 Lipase 54 U/L (73-393) L 09/21/17 17:15 Urine Color Yellow 09/22/17 01:55 Urine Appearance Clear 09/22/17 01:55 Urine pH 5.0 (5.0-8.0) 09/22/17 01:55 Ur Specific [place] > 1.060 (1.001-1.035) H 09/22/17 01:55 Urine Protein 3+ (NEGATIVE) H 09/22/17 01:55 Urine Glucose (UA) 3+ (NEGATIVE) H 09/22/17 01:55 Urine Ketones Negative (NEGATIVE) 09/22/17 01:55 Urine Blood Negative (NEGATIVE) 09/22/17 01:55 Urine Nitrite Negative (NEGATIVE) 09/22/17 01:55 Urine Bilirubin Negative (<2.0 mg/dL) 09/22/17 01:55 Urine Urobilinogen Negative mg/dL (0.2-1.0) 09/22/17 01:55 Ur Leukocyte Esterase Negative (NEGATIVE) 09/22/17 01:55 Urine WBC (Auto) 2 /hpf (3-5) 09/22/17 01:55 Urine RBC (Auto) 8 /hpf (0-3) 09/22/17 01:55 Ur Epithelial Cells Rare /HPF (FEW) 09/22/17 01:55 Urine Mucus Few 09/22/17 01:55 Opiates Screen Positive ng/ml (PZHXQT=864) 09/22/17 06:45 Methadone Screen Negative ng/ml (VUMVYF=166) 09/22/17 06:45 Barbiturate Screen Negative ng/ml (OZQGJO=972) 09/22/17 06:45 Phencyclidine Screen Negative ng/ml (CUTOFF=25) 09/22/17 06:45 Ur Amphetamines Screen Negative ng/ml (CURMDH=363) 09/22/17 06:45 MDMA (Ecstasy) Screen Negative ng/ml (IPBMUO=019) 09/22/17 06:45 Benzodiazepines Screen Positive ng/ml (MHKKTV=164) 09/22/17 06:45 Cocaine Screen Negative ng/ml (QIXCXZ=569) 09/22/17 06:45 U Marijuana (THC) Screen Positive ng/ml (CUTOFF=50) 09/22/17 06:45 Problem List - Problems (1) Abdominal pain Code(s): R10.9 - UNSPECIFIED ABDOMINAL PAIN (2) Abdominal tenderness Code(s): R10.819 - ABDOMINAL TENDERNESS, UNSPECIFIED SITE (3) Leukocytosis Code(s): D72.829 - ELEVATED WHITE BLOOD CELL COUNT, UNSPECIFIED Assessment/Plan Non-specific abdominal pain in the settings of normal imaging and normalized labs. Continue to monitor today-tomorrow, if not better, plan diagnostic EGD and colonoscopy on Wednesday.
--- NOTE | 2017-09-24 09:50 | PN ---
Progress Note, Physician - Current Medication List Current Medications: Active Medications Acetaminophen (Tylenol -) 650 mg PO Q6H PRN PRN Reason: PAIN LEVEL 1-6 Last Admin: 09/23/17 16:19 Dose: 650 mg Ascorbic Acid (Vitamin C -) 500 mg PO BID [facility] Last Admin: 09/24/17 09:04 Dose: 500 mg Aspirin (Ecotrin -) 81 mg PO DAILY [facility] Last Admin: 09/24/17 09:04 Dose: 81 mg Clonidine (Catapres -) 0.1 mg PO BID [facility] Last Admin: 09/24/17 09:06 Dose: 0.1 mg Dicyclomine HCl (Bentyl -) 10 mg PO Q6H PRN PRN Reason: MUSCLE SPASMS Last Admin: 09/23/17 17:47 Dose: 10 mg Diltiazem HCl (Cardizem Cd -) 120 mg PO DAILY [facility] Last Admin: 09/24/17 09:04 Dose: 120 mg Docusate Sodium (Colace -) 300 mg PO HS [facility] Last Admin: 09/23/17 22:08 Dose: 300 mg Duloxetine HCl (Cymbalta -) 60 mg PO DAILY [facility] Last Admin: 09/24/17 09:05 Dose: 60 mg Gabapentin (Neurontin -) 300 mg PO TID [facility] Last Admin: 09/24/17 06:07 Dose: 300 mg Heparin Sodium (Porcine) (Heparin -) 5,000 unit SQ TID [facility] Last Admin: 09/24/17 06:07 Dose: 5,000 unit Hydralazine HCl (Apresoline -) 25 mg PO TID [facility] Last Admin: 09/24/17 06:07 Dose: 25 mg Insulin Aspart (Novolog Vial Sliding Scale -) 1 vial SQ [facility]; Protocol Last Admin: 09/24/17 06:08 Dose: 4 unit Insulin Detemir (Levemir Vial) 25 units SQ ACBK [facility] Last Admin: 09/24/17 06:08 Dose: 25 unit Ketorolac Tromethamine (Toradol Injection -) 15 mg IM Q8H PRN PRN Reason: PAIN LEVEL 7 - 10 Stop: 09/28/17 20:42 Last Admin: 09/24/17 07:20 Dose: 15 mg Lactobacillus Acidophilus (Bacid -) 1 tab PO DAILY [facility] Last Admin: 09/24/17 09:05 Dose: 1 tab Levetiracetam (Keppra -) 1,000 mg PO BID [facility] Last Admin: 09/24/17 09:06 Dose: 1,000 mg Levofloxacin (Levaquin -) 500 mg PO DAILY@0600 [facility] Last Admin: 09/24/17 06:07 Dose: 500 mg Lisinopril (Prinivil) 20 mg PO DAILY [facility] Last Admin: 09/24/17 09:04 Dose: 20 mg Montelukast Sodium (Singulair -) 10 mg PO HS [facility] Last Admin: 09/23/17 22:09 Dose: 10 mg Ondansetron HCl (Zofran Odt -) 8 mg SL Q8H PRN PRN Reason: NAUSEA Last Admin: 09/22/17 13:32 Dose: 8 mg Pancrelipase (Creon Dr 36,000 Units Capsule) 1 cap PO TIDCM [facility] Last Admin: 09/24/17 08:03 Dose: 1 cap Pantoprazole Sodium (Protonix -) 40 mg PO DAILY [facility] Last Admin: 09/24/17 09:05 Dose: 40 mg Fluticasone/Salmeterol (Advair 100mcg/50mcg -) 1 puff IH BID [facility] Last Admin: 09/23/17 22:15 Dose: 1 puff Senna (Senna -) 2 tab PO [facility] Last Admin: 09/23/17 22:08 Dose: 2 tab Tiotropium [place] (Spiriva -) 1 puff IH DAILY [facility] Last Admin: 09/24/17 09:05 Dose: 1 puff - Objective Vital Signs: Vital Signs Temperature 98.3 F 09/24/17 05:37 Pulse Rate 82 09/24/17 05:37 Respiratory Rate 20 09/24/17 05:37 Blood Pressure 120/65 09/24/17 05:37 O2 Sat by Pulse Oximetry (%) 97 09/24/17 09:00 Labs: CBC, BMP 09/24/17 05:15 09/24/17 05:15 INR, PTT INR 1.07 (0.82-1.09) 09/21/17 17:15
[2017-09-24] MEDS: FLUTICASONE/SALMETEROL 100 MCG/50 MCG DISKUS IH SCH ×2 (10:00→22:23)
[2017-09-24 11:07] LABS: ERYTHROCYTE SEDIMENTATION RATE 14 mm/hr (0-30)
[2017-09-24 12:41] VITALS: BMI 33.7
--- NOTE | 2017-09-24 17:30 | CONSULT ---
Consult Consult Specialty:: Rheumatology - History of Present Illness History of Present Illness: 57 y/o female with PMH of C diff colitis, NIDDM, CHF, CAD s/p stent x1, COPD, Hypothyroidism, Anxiety, Depression, Bipolar, Seizures (03/2013), Chronic Pain, Former IVDA, Hepatitis C, Cirrhosis, admitted with abdominal pain in RLQ and epigastric pain, fever and chills x3 days and since admission she has had diffuse aches and pains. HPI The patient reports that prior to admission she was well and upon admission she has had diffuse aches and pains, numbness and patresthesias in the right hand and tenderness in the left calf. During the hospitalization she has not have fever. C scan of abdomen and pelvis was unrevealing. [place] from last May resolved. 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 pt thinks she may have had one in the past (L facial droop)), Seizure. No: Alzheimer's Cardio/Vascular: Yes: CAD, HTN. No: AFIB Pulmonary: Yes: Asthma, COPD Gastrointestinal: Yes: Hiatal Hernia, Other ("colitis" mid-April) Hepatobiliary: Yes: Hepatitis C (from a blood transfusion) Infectious Disease: Yes: MRSA (R thigh abscess 02/26) Psych: Yes: Addictions, Anxiety, Bipolar, Depression Musculoskeletal: Yes: Chronic low back pain Endocrine: Yes: Diabetes Mellitus - Past Surgical History Past Surgical History: Yes: Appendectomy, Cholecystectomy (laparoscopic), Colonoscopy, Hysterectomy (vaginal) - Alcohol/Substance Use Hx Alcohol Use: Yes History of Substance Use: reports: Cocaine (crack) - Smoking History Smoking history: Current every day smoker Have you smoked in the past 12 months: No Aproximately how many cigarettes per day: 12 - Social History Usual Living Arrangement: With Spouse Occupation: disabled History of Recent Travel: No Home Medications - Allergies Allergies/Adverse Reactions: Allergies Allergy/AdvReac Type Severity Reaction Status Date / Time No Known Allergies Allergy Verified 05/25/17 12:56 - Home Medications Home Medications: Ambulatory Orders Famotidine [Pepcid -] 40 mg PO DAILY 12/21/14 Tiotropium [place] [Spiriva] 18 mcg IH DAILY 12/21/14 Alprazolam [Xanax] 1 mg PO TID 07/13/16 Ascorbic Acid [Vitamin C -] 500 mg PO BID #60 tablet 02/15/17 Docusate Sodium [Colace -] 300 mg PO HS #30 cap 02/15/17 Insulin (Levemir) [Levemir Flexpen -] 20 units SQ BID #4 pen 02/15/17 Insulin (Novolog) [Novolog Flexpen -] 5 units SQ ACHS #4 pen 02/15/17 Montelukast Na [Singulair -] 10 mg PO HS #30 tablet 02/15/17 Salmeterol/Fluticasone [Advair 100Mcg/50Mcg -] 1 puff IH BID #1 inhaler Sennosides [Senna -] 2 tab PO HS #60 tablet 02/15/17 metFORMIN HCL [Glucophage -] 500 mg PO BID@0700,1630 #60 tablet 02/15/17 Acetaminophen [Tylenol .Regular Strength -] 650 mg PO Q6H PRN tablet 06/03/17 Aspirin Coated [Ecotrin -] 81 mg PO DAILY #30 tablet.ec 06/03/17 Diltiazem Cd [Cardizem Cd -] 120 mg PO DAILY #30 cap.cd.24h 06/03/17 Duloxetine HCl [Cymbalta -] 60 mg PO DAILY #30 capsule. 06/03/17 Gabapentin [Neurontin -] 300 mg PO TID #90 capsule 06/03/17 Lactobacillus Acidophilus [Bacid -] 1 tab PO DAILY #30 tab 06/03/17 Lipase/Protease/Amylase [Alexi Jones 36,000 Units Capsule] 1 cap PO TIDCM #90 capsule. 06/03/17 Lisinopril [Prinivil] 20 mg PO DAILY #30 tablet 06/03/17 Montelukast Na [Singulair -] 10 mg PO HS #30 tablet 06/03/17 Pantoprazole Sodium [Protonix -] 40 mg PO DAILY #30 tablet.ec 06/03/17 Zolpidem Tartrate [Ambien] 10 mg PO HS PRN tablet MDD 1 06/03/17 cloNIDine HCL [Catapres -] 0.1 mg PO BID #60 tablet 06/03/17 hydrALAZINE HCL [Apresoline -] 25 mg PO TID #90 tablet 06/03/17 levETIRAcetam [Keppra -] 1,000 mg PO BID #60 tablet 06/03/17 oxyCODONE HCL [Roxicodone -] 10 mg PO Q6H PRN tablet MDD 4 06/03/17 predniSONE [Deltasone -] 40 mg PO DAILY #10 tablet 06/03/17 Family Disease History - Family Disease History Family Disease History: Diabetes: Mother, Heart Disease: Father, Brother, Sister , Respiratory: Father, Other: Father, Brother, Sister Review of Systems - Review of Systems Constitutional: reports: Malaise Eyes: reports: No Symptoms HENT: reports: No Symptoms Neck: reports: No Symptoms Cardiovascular: reports: Chest Pain Respiratory: reports: SOB Gastrointestinal: reports: Abdominal Pain Musculoskeletal: reports: Other (See HPI) Physical Exam Vital Signs: Vital Signs Temperature 97.3 F L 09/24/17 14:44 Pulse Rate 82 09/24/17 14:44 Respiratory Rate 18 09/24/17 14:44 Blood Pressure 109/68 09/24/17 14:44 O2 Sat by Pulse Oximetry (%) 97 09/24/17 09:00 Constitutional: Yes: Moderate Distress Eyes: Yes: WNL HENT: Yes: WNL Neck: Yes: WNL Cardiovascular: Yes: WNL Respiratory: Yes: WNL Gastrointestinal: Yes: Other (Tenderness in RLQ. Questionable rebound. No masses) Musculoskeletal: Yes: Other (Tinel sign positive in the right wrist. The left calf was very tender with negative Homans sign. No tender or swollen joints and no tenderness in fibrositic tender points.) Labs: CBC, BMP 09/24/17 05:15 09/24/17 05:15 Laboratory Tests 09/21/17 09/22/17 09/24/17 17:15 01:55 05:15 ESR Hemoglobin A1c % Calcium 8.4 L Total Bilirubin 0.5 D AST 28 ALT 48 Alkaline Phosphatase 78 Lipase 54 L Urine Color Yellow Urine Appearance Clear Urine pH 5.0 Ur Specific [place] > 1.060 H Urine Protein 3+ H Urine Glucose (UA) 3+ H Urine Ketones Negative Urine Blood Negative Urine Nitrite Negative Urine Bilirubin Negative Urine Urobilinogen Negative Ur Leukocyte Esterase Negative Urine WBC (Auto) 2 Urine RBC (Auto) 8 09/24/17 09/24/17 05:15 05:15 ESR 14 Hemoglobin A1c % 10.3 H Calcium Total Bilirubin AST ALT Alkaline Phosphatase Lipase Urine Color Urine Appearance Urine pH Ur Specific [place] Urine Protein Urine Glucose (UA) Urine Ketones Urine Blood Urine Nitrite Urine Bilirubin Urine Urobilinogen Ur Leukocyte Esterase Urine WBC (Auto) Urine RBC (Auto) Problem List - Problems (1) Carpal tunnel syndrome of right wrist Assessment/Plan: Carpal tunnel syndrome in the right writs. The patient reports diffuse pain and numbness in the right hand,. He does not have inflammatory arthritis or fibromyalgia. Plan: Right wrist splint. Code(s): G56.01 - CARPAL TUNNEL SYNDROME, RIGHT UPPER LIMB (2) Leg pain Assessment/Plan: Significant tenderness in the left calf. R/O DVT. Plan: Dplex US stat. Code(s): M79.606 - PAIN IN LEG, UNSPECIFIED
--- NOTE | 2017-09-24 20:16 | CONSULT ---
Consult Consult Specialty:: Pain Management - History of Present Illness History of Present Illness: 57 y/o female with h/o multiple medical comorbidities and with Chronic Pain, and H/o Drug abuse was admitted with abdominal pain. She had hospital admission in past with similar condition. She was taking Percocet and getting Injection for back pain. - History Source History Provided By: Patient Limitations to Obtaining History: No Limitations - Past Medical History CAR PORTER: Yes: CVA (? pt thinks she may have had one in the past (L facial droop)), Seizure. No: Alzheimer's Cardio/Vascular: Yes: CAD, HTN. No: AFIB Pulmonary: Yes: Asthma, COPD Gastrointestinal: Yes: Hiatal Hernia, Other ("colitis" mid-April) Hepatobiliary: Yes: Hepatitis C (from a blood transfusion) Infectious Disease: Yes: MRSA (R thigh abscess 02/26) Psych: Yes: Addictions, Anxiety, Bipolar, Depression Musculoskeletal: Yes: Chronic low back pain Endocrine: Yes: Diabetes Mellitus - Past Surgical History Past Surgical History: Yes: Appendectomy, Cholecystectomy (laparoscopic), Colonoscopy, Hysterectomy (vaginal) - Alcohol/Substance Use Hx Alcohol Use: Yes History of Substance Use: reports: Cocaine (crack) - Smoking History Smoking history: Current every day smoker Have you smoked in the past 12 months: No Aproximately how many cigarettes per day: 12 - Social History Usual Living Arrangement: With Spouse Occupation: disabled History of Recent Travel: No Home Medications - Allergies Allergies/Adverse Reactions: Allergies Allergy/AdvReac Type Severity Reaction Status Date / Time No Known Allergies Allergy Verified 05/25/17 12:56 - Home Medications Home Medications: Ambulatory Orders Famotidine [Pepcid -] 40 mg PO DAILY 12/21/14 Tiotropium [place] [Spiriva] 18 mcg IH DAILY 12/21/14 Alprazolam [Xanax] 1 mg PO TID 07/13/16 Ascorbic Acid [Vitamin C -] 500 mg PO BID #60 tablet 02/15/17 Docusate Sodium [Colace -] 300 mg PO HS #30 cap 02/15/17 Insulin (Levemir) [Levemir Flexpen -] 20 units SQ BID #4 pen 02/15/17 Insulin (Novolog) [Novolog Flexpen -] 5 units SQ ACHS #4 pen 02/15/17 Montelukast Na [Singulair -] 10 mg PO HS #30 tablet 02/15/17 Salmeterol/Fluticasone [Advair 100Mcg/50Mcg -] 1 puff IH BID #1 inhaler Sennosides [Senna -] 2 tab PO HS #60 tablet 02/15/17 metFORMIN HCL [Glucophage -] 500 mg PO BID@0700,1630 #60 tablet 02/15/17 Acetaminophen [Tylenol .Regular Strength -] 650 mg PO Q6H PRN tablet 06/03/17 Aspirin Coated [Ecotrin -] 81 mg PO DAILY #30 tablet.ec 06/03/17 Diltiazem Cd [Cardizem Cd -] 120 mg PO DAILY #30 cap.cd.24h 06/03/17 Duloxetine HCl [Cymbalta -] 60 mg PO DAILY #30 capsule. 06/03/17 Gabapentin [Neurontin -] 300 mg PO TID #90 capsule 06/03/17 Lactobacillus Acidophilus [Bacid -] 1 tab PO DAILY #30 tab 06/03/17 Lipase/Protease/Amylase [Alexi Jones 36,000 Units Capsule] 1 cap PO TIDCM #90 capsule. 06/03/17 Lisinopril [Prinivil] 20 mg PO DAILY #30 tablet 06/03/17 Montelukast Na [Singulair -] 10 mg PO HS #30 tablet 06/03/17 Pantoprazole Sodium [Protonix -] 40 mg PO DAILY #30 tablet.ec 06/03/17 Zolpidem Tartrate [Ambien] 10 mg PO HS PRN tablet MDD 1 06/03/17 cloNIDine HCL [Catapres -] 0.1 mg PO BID #60 tablet 06/03/17 hydrALAZINE HCL [Apresoline -] 25 mg PO TID #90 tablet 06/03/17 levETIRAcetam [Keppra -] 1,000 mg PO BID #60 tablet 06/03/17 oxyCODONE HCL [Roxicodone -] 10 mg PO Q6H PRN tablet MDD 4 06/03/17 predniSONE [Deltasone -] 40 mg PO DAILY #10 tablet 06/03/17 Family Disease History - Family Disease History Family Disease History: Diabetes: Mother, Heart Disease: Father, Brother, Sister , Respiratory: Father, Other: Father, Brother, Sister Review of Systems - Review of Systems Constitutional: reports: No Symptoms Eyes: reports: No Symptoms HENT: reports: No Symptoms Neck: reports: No Symptoms Respiratory: reports: No Symptoms Gastrointestinal: reports: Abdominal Pain Musculoskeletal: reports: Back Pain Neurological: reports: No Symptoms Psychiatric: reports: No Symptoms Pain Intensity: 5 Physical Exam Vital Signs: Vital Signs Temperature 97.3 F L 09/24/17 18:06 Pulse Rate 73 09/24/17 18:06 Respiratory Rate 18 09/24/17 18:06 Blood Pressure 113/73 09/24/17 18:06 O2 Sat by Pulse Oximetry (%) 97 09/24/17 09:00 Constitutional: Yes: Well Nourished Eyes: Yes: WNL HENT: Yes: WNL Neck: Yes: WNL Respiratory: Yes: WNL Gastrointestinal: Yes: Soft, Tenderness, Rebound, Other (no rebound .) Musculoskeletal: Yes: Back Pain Extremities: Yes: WNL Edema: No Neurological: Yes: WNL ...Motor Strength: WNL Labs: CBC, BMP 09/24/17 05:15 09/24/17 05:15 Current Medications Generic Name Dose Route Start Last Admin Trade Name Freq PRN Reason Stop Dose Admin Acetaminophen 650 mg 09/22/17 10:19 09/23/17 16:19 Tylenol - PO 650 mg Q6H PRN Administration PAIN LEVEL 1-6 Ascorbic Acid 500 mg 09/22/17 22:00 09/24/17 09:04 Vitamin C - PO 500 mg BID ILYA Administration Aspirin 81 mg 09/22/17 10:00 09/24/17 09:04 Ecotrin - PO 81 mg DAILY ILYA Administration Clonidine 0.1 mg 09/22/17 22:00 09/24/17 09:06 Catapres - PO 0.1 mg BID ILYA Administration Dicyclomine HCl 10 mg 09/23/17 15:24 09/23/17 17:47 Bentyl - PO 10 mg Q6H PRN Administration MUSCLE SPASMS Diltiazem HCl 120 mg 09/23/17 10:00 09/24/17 09:04 Cardizem Cd - PO 120 mg DAILY ILYA Administration Docusate Sodium 300 mg 09/22/17 22:00 09/23/17 22:08 Colace - PO 300 mg HS ILYA Administration Duloxetine HCl 60 mg 09/22/17 10:00 09/24/17 09:05 Cymbalta - PO 60 mg DAILY ILYA Administration Gabapentin 300 mg 09/22/17 06:00 09/24/17 14:10 Neurontin - PO 300 mg TID ILYA Administration Heparin Sodium (Porcine) 5,000 unit 09/22/17 06:00 09/24/17 14:00 Heparin - SQ 5,000 unit TID ILYA Administration Hydralazine HCl 25 mg 09/22/17 14:00 09/24/17 14:10 Apresoline - PO 25 mg TID ILYA Administration Insulin Aspart 1 vial 09/22/17 07:00 09/24/17 16:56 Novolog Vial Sliding Scale - SQ 2 unit ACHS ILYA Administration Protocol Insulin Detemir 25 units 09/23/17 23:17 09/24/17 06:08 Levemir Vial SQ 25 unit ACBK ILYA Administration Ketorolac Tromethamine 15 mg 09/23/17 22:35 09/24/17 15:20 Toradol Injection - IM 09/28/17 20:42 15 mg Q8H PRN Administration PAIN LEVEL 7 - 10 Lactobacillus Acidophilus 1 tab 09/23/17 10:00 09/24/17 09:05 Bacid - PO 1 tab DAILY ILYA Administration Levetiracetam 1,000 mg 09/22/17 10:00 09/24/17 09:06 Keppra - PO 1,000 mg BID ILYA Administration Levofloxacin 500 mg 09/22/17 14:15 09/24/17 06:07 Levaquin - PO 500 mg DAILY@0600 ILYA Administration Lisinopril 20 mg 09/22/17 10:30 09/24/17 09:04 Prinivil PO 20 mg DAILY ILYA Administration Montelukast Sodium 10 mg 09/22/17 22:00 09/23/17 22:09 Singulair - PO 10 mg HS ILYA Administration Ondansetron HCl 8 mg 09/22/17 13:12 09/22/17 13:32 Zofran Odt - SL 8 mg Q8H PRN Administration NAUSEA Pancrelipase 1 cap 09/22/17 17:30 09/24/17 16:[address] 36,000 Units Capsule PO 1 cap TIDCM ILYA Administration Pantoprazole Sodium 40 mg 09/22/17 10:00 09/24/17 09:05 Protonix - PO 40 mg DAILY ILYA Administration Fluticasone/Salmeterol 1 puff 09/22/17 10:00 09/24/17 10:00 Advair 100mcg/50mcg - IH 1 puff BID ILYA Administration Senna 2 tab 09/22/17 22:00 09/23/17 22:08 Senna - PO 2 tab HS ILYA Administration Tiotropium [place] 1 puff 09/22/17 10:00 09/24/17 09:05 Spiriva - IH 1 puff DAILY ILYA Administration Imaging - Results Cat Scan: Report Reviewed Assessment/Plan Discussed in deatil and answered all her question 1. continue current care 2. D/C Toradol 3. Dr Cynthia Ivey may be contacted if pain not controlled. He was her pain physician. He may be helpful. Thank you very your kind referral Dr. Gutierres [phone]
[2017-09-24] MEDS: SENNOSIDES 8.6MG TABLET (FP) PO SCH (22:18)
[2017-09-24] MEDS: DOCUSATE SODIUM 100 MG CAPSULE (FP) PO SCH (22:19)
[2017-09-24] MEDS: MONTELUKAST NA 10 MG TABLET PO SCH (22:21)
[2017-09-24] MEDS: ACETAMINOPHEN 325 MG TABLET (FP) PO PRN (22:22)
[2017-09-25] MEDS: DICYCLOMINE HCL 10 MG CAPSULE PO PRN (01:31)
[2017-09-25] MEDS: HEPARIN NA (PORCINE) 5,000 UNITS/ML 1ML VIAL SQ SCH ×4 (05:33→22:43)
[2017-09-25] MEDS: hydrALAZINE HCL 25 MG TABLET (FP) PO SCH ×4 (05:33→22:43)
[2017-09-25] MEDS: GABAPENTIN 300 MG CAPSULE (FP) PO SCH ×3 (05:34→22:42)
[2017-09-25] MEDS: INSULIN (LEVEMIR) 100 UNITS/ML UNITS SQ SCH (06:21)
[2017-09-25] MEDS: INSULIN SLIDING SCALE (NOVOLOG) 1 VIAL SQ SCH ×4 (06:21→22:44)
[2017-09-25] MEDS: ACETAMINOPHEN 325 MG TABLET (FP) PO PRN (08:04)
[2017-09-25] MEDS ORDERED: PT OWN MED DRAWER 7, Y5N ONE (09:58)
[2017-09-25] MEDS: levETIRAcetam 500 MG TABLET (FP) PO SCH ×2 (10:02→22:43)
[2017-09-25] MEDS: LISINOPRIL 20 MG TABLET (FP) PO SCH (10:03)
[2017-09-25] MEDS: TIOTROPIUM BROMIDE 18 MCG CAPSULES IH SCH (10:03)
[2017-09-25] MEDS: ASCORBIC ACID 500 MG TABLET (FP) PO SCH ×2 (10:04→22:43)
[2017-09-25] MEDS: cloNIDine HCL 0.1 MG TABLET PO SCH ×2 (10:04→22:43)
[2017-09-25] MEDS: ASPIRIN COATED 81 MG TABLET.EC PO SCH (10:04)
[2017-09-25] MEDS: DULoxetine HCL 30 MG CAPSULE.DR (FP) PO SCH (10:04)
[2017-09-25] MEDS: FLUTICASONE/SALMETEROL 100 MCG/50 MCG DISKUS IH SCH ×2 (10:05→22:43)
[2017-09-25] MEDS: LACTOBACILLUS ACIDOPHILUS 1 TABLET PO SCH (10:05)
[2017-09-25] MEDS: PANTOPRAZOLE 40 MG TABLET (FP) PO SCH (10:05)
[2017-09-25] MEDS: LIPASE/PROTEASE/AMYLASE 36,000 UNIT CAPSULE PO SCH ×3 (10:06→17:46)
[2017-09-25] MEDS ORDERED: INSULIN (NOVOLOG) ASPART 100 UNITS/ML 10ML VIAL ONE ×2 (11:31→20:59)
--- NOTE | 2017-09-25 11:42 | PN ---
Progress Note, Physician Chief Complaint: NOTES AND EVENTS NOTED PATIENT C/O PAIN LABILE CRYING DENIES CHEST PAIN +DYSPNEA - Current Medication List Current Medications: Active Medications Acetaminophen (Tylenol -) 650 mg PO Q6H PRN PRN Reason: PAIN LEVEL 1-6 Last Admin: 09/25/17 08:04 Dose: 650 mg Ascorbic Acid (Vitamin C -) 500 mg PO BID [facility] Last Admin: 09/25/17 10:04 Dose: 500 mg Aspirin (Ecotrin -) 81 mg PO DAILY [facility] Last Admin: 09/25/17 10:04 Dose: 81 mg Clonidine (Catapres -) 0.1 mg PO BID [facility] Last Admin: 09/25/17 10:04 Dose: 0.1 mg Dicyclomine HCl (Bentyl -) 10 mg PO Q6H PRN PRN Reason: MUSCLE SPASMS Last Admin: 09/25/17 01:31 Dose: 10 mg Diltiazem HCl (Cardizem Cd -) 120 mg PO DAILY [facility] Last Admin: 09/25/17 10:02 Dose: 120 mg Docusate Sodium (Colace -) 300 mg PO HS [facility] Last Admin: 09/24/17 22:19 Dose: Not Given Duloxetine HCl (Cymbalta -) 60 mg PO DAILY [facility] Last Admin: 09/25/17 10:04 Dose: 60 mg Gabapentin (Neurontin -) 300 mg PO TID [facility] Last Admin: 09/25/17 05:34 Dose: 300 mg Heparin Sodium (Porcine) (Heparin -) 5,000 unit SQ TID [facility] Last Admin: 09/25/17 05:33 Dose: 5,000 unit Hydralazine HCl (Apresoline -) 25 mg PO TID [facility] Last Admin: 09/25/17 05:33 Dose: 25 mg Insulin Aspart (Novolog Vial Sliding Scale -) 1 vial SQ ACHS [facility]; Protocol Last Admin: 09/25/17 11:31 Dose: 4 unit Insulin Detemir (Levemir Vial) 25 units SQ ACBK [facility] Last Admin: 09/25/17 06:21 Dose: 25 unit Lactobacillus Acidophilus (Bacid -) 1 tab PO DAILY [facility] Last Admin: 09/25/17 10:05 Dose: 1 tab Levetiracetam (Keppra -) 1,000 mg PO BID [facility] Last Admin: 09/25/17 10:02 Dose: 1,000 mg Levofloxacin (Levaquin -) 500 mg PO DAILY@0600 [facility] Last Admin: 09/25/17 05:33 Dose: 500 mg Lisinopril (Prinivil) 20 mg PO DAILY [facility] Last Admin: 09/25/17 10:03 Dose: 20 mg Montelukast Sodium (Singulair -) 10 mg PO [facility] Last Admin: 09/24/17 22:21 Dose: 10 mg Ondansetron HCl (Zofran Odt -) 8 mg SL Q8H PRN PRN Reason: NAUSEA Last Admin: 09/22/17 13:32 Dose: 8 mg Oxycodone HCl (Roxicodone -) 10 mg PO Q6H PRN PRN Reason: PAIN LEVEL 6-10 Pancrelipase (Creon Dr 36,000 Units Capsule) 1 cap PO TIDCM [facility] Last Admin: 09/25/17 10:06 Dose: 1 cap Pantoprazole Sodium (Protonix -) 40 mg PO DAILY [facility] Last Admin: 09/25/17 10:05 Dose: 40 mg Fluticasone/Salmeterol (Advair 100mcg/50mcg -) 1 puff IH BID [facility] Last Admin: 09/25/17 10:05 Dose: 1 puff Senna (Senna -) 2 tab PO [facility] Last Admin: 09/24/17 22:18 Dose: Not Given Tiotropium [place] (Spiriva -) 1 puff IH DAILY [facility] Last Admin: 09/25/17 10:03 Dose: 1 puff - Objective Vital Signs: Vital Signs Temperature 98.7 F 09/25/17 10:20 Pulse Rate 70 09/25/17 10:20 Respiratory Rate 18 09/25/17 10:20 Blood Pressure 126/82 09/25/17 10:20 O2 Sat by Pulse Oximetry (%) 98 09/24/17 21:00 Constitutional: Yes: Mild Distress Eyes: Yes: WNL HENT: Yes: WNL Neck: Yes: WNL Cardiovascular: Yes: WNL Respiratory: Yes: On Nasal O2, SOB Gastrointestinal: Yes: Tenderness Genitourinary: Yes: WNL Edema: Yes Peripheral Pulses WNL: Yes Integumentary: Yes: WNL Wound/Incision: Yes: Clean/Dry Neurological: Yes: Pre-Existing Deficit ...Motor Strength: LLE, RLE Psychiatric: Yes: Other Labs: CBC, BMP 09/24/17 05:15 09/24/17 05:15 INR, PTT INR 1.07 (0.82-1.09) 09/21/17 17:15 Problem List - Problems (1) Abdominal pain Code(s): R10.9 - UNSPECIFIED ABDOMINAL PAIN (2) Benzodiazepine dependence, episodic Code(s): F13.20 - SEDATIVE, HYPNOTIC OR ANXIOLYTIC DEPENDENCE, UNCOMPLICATED (3) COPD exacerbation Code(s): J44.1 - CHRONIC OBSTRUCTIVE PULMONARY DISEASE W (ACUTE) EXACERBATION (4) Type 2 diabetes mellitus with diabetic neuropathy, unspecified Code(s): E11.40 - TYPE 2 DIABETES MELLITUS WITH DIABETIC NEUROPATHY, UNSP (5) Bipolar II disorder Code(s): F31.81 - BIPOLAR II DISORDER (6) Diabetes type 2, controlled Code(s): E11.9 - TYPE 2 DIABETES MELLITUS WITHOUT COMPLICATIONS (7) Hepatitis C Code(s): B19.20 - UNSPECIFIED VIRAL HEPATITIS C WITHOUT HEPATIC COMA Qualifiers: Viral hepatitis chronicity: unspecified Hepatic coma status: without hepatic coma Qualified Code(s): B19.20 - Unspecified viral hepatitis C without hepatic coma (8) Hypertension Code(s): I10 - ESSENTIAL (PRIMARY) HYPERTENSION Qualifiers: Hypertension type: essential hypertension Qualified Code(s): I10 - Essential (primary) hypertension (9) Hypothyroidism Code(s): E03.9 - HYPOTHYROIDISM, UNSPECIFIED Qualifiers: Hypothyroidism type: acquired Qualified Code(s): E03.9 - Hypothyroidism, unspecified (10) Nicotine dependence Code(s): F17.200 - NICOTINE DEPENDENCE, UNSPECIFIED, UNCOMPLICATED (11) Opioid dependence Code(s): F11.20 - OPIOID DEPENDENCE, UNCOMPLICATED (12) Seizure disorder Code(s): G40.909 - EPILEPSY, UNSP, NOT INTRACTABLE, WITHOUT STATUS EPILEPTICUS Assessment/Plan PULMONARY SUPPORT NEBS STEROIDS DVT PROPHYLAXIS OOB TO CHAIR PAIN CONTROL NEBS 02 SUPPORT
[2017-09-25] MEDS: oxyCODONE HCL 5 MG TABLET PO PRN ×2 (11:58→19:24)
[2017-09-25] MEDS: MONTELUKAST NA 10 MG TABLET PO SCH (22:43)
[2017-09-25] MEDS: SENNOSIDES 8.6MG TABLET (FP) PO SCH (22:43)
[2017-09-25] MEDS: DOCUSATE SODIUM 100 MG CAPSULE (FP) PO SCH (22:47)
[2017-09-25] MEDS ORDERED: ARTIFICIAL TEARS (POLYVINYL ALCOHOL 1.4%) OPTH DROPS OU PRN (23:28)
[2017-09-26] MEDS: oxyCODONE HCL 5 MG TABLET PO PRN ×4 (01:27→20:19)
[2017-09-26] MEDS: INSULIN SLIDING SCALE (NOVOLOG) 1 VIAL SQ SCH ×4 (06:10→21:34)
[2017-09-26] MEDS: HEPARIN NA (PORCINE) 5,000 UNITS/ML 1ML VIAL SQ SCH ×3 (06:11→21:33)
[2017-09-26] MEDS: GABAPENTIN 300 MG CAPSULE (FP) PO SCH (06:11)
[2017-09-26] MEDS: INSULIN (LEVEMIR) 100 UNITS/ML UNITS SQ SCH (06:11)
[2017-09-26] MEDS: hydrALAZINE HCL 25 MG TABLET (FP) PO SCH ×3 (06:11→21:33)
[2017-09-26] MEDS ORDERED: INSULIN (NOVOLOG) ASPART 100 UNITS/ML 10ML VIAL ONE ×2 (06:47→12:27)
[2017-09-26] MEDS: LIPASE/PROTEASE/AMYLASE 36,000 UNIT CAPSULE PO SCH (09:24)
[2017-09-26] MEDS ORDERED: PEG3350/SOD SULF,BICARB,CL/KCL 4,000 ML SOLN.RECON PO ONE (10:09)
--- NOTE | 2017-09-26 10:14 | PN ---
Progress Note, Physician Chief Complaint: AWAKE ALERT STILL HAVING PAIN RIGHT SIDED NO FEVER NO CHILLS - Current Medication List Current Medications: Active Medications Acetaminophen (Tylenol -) 650 mg PO Q6H PRN PRN Reason: PAIN LEVEL 1-6 Last Admin: 09/25/17 08:04 Dose: 650 mg Artificial Tears (Artificial Tears) 1 drop OU Q6H PRN PRN Reason: DRY EYES Last Admin: 09/25/17 23:05 Dose: 1 drop Clonidine (Catapres -) 0.1 mg PO BID [facility] Last Admin: 09/25/17 22:43 Dose: 0.1 mg Diltiazem HCl (Cardizem Cd -) 120 mg PO DAILY [facility] Last Admin: 09/25/17 10:02 Dose: 120 mg Docusate Sodium (Colace -) 300 mg PO [facility] Last Admin: 09/25/17 22:47 Dose: Not Given Heparin Sodium (Porcine) (Heparin -) 5,000 unit SQ TID [facility] Last Admin: 09/26/17 06:11 Dose: 5,000 unit Hydralazine HCl (Apresoline -) 25 mg PO TID [facility] Last Admin: 09/26/17 06:11 Dose: 25 mg Insulin Aspart (Novolog Vial Sliding Scale -) [address] [facility]; Protocol Last Admin: 09/26/17 06:10 Dose: Not Given Levetiracetam (Keppra -) 1,000 mg PO BID [facility] Last Admin: 09/25/17 22:43 Dose: 1,000 mg Levofloxacin (Levaquin -) 500 mg PO DAILY@0600 [facility] Last Admin: 09/26/17 06:11 Dose: 500 mg Lisinopril (Prinivil) 20 mg PO DAILY [facility] Last Admin: 09/25/17 10:03 Dose: 20 mg Montelukast Sodium (Singulair -) 10 mg PO [facility] Last Admin: 09/25/17 22:43 Dose: 10 mg Ondansetron HCl (Zofran Odt -) 8 mg SL Q8H PRN PRN Reason: NAUSEA Last Admin: 09/22/17 13:32 Dose: 8 mg Oxycodone HCl (Roxicodone -) 10 mg PO Q6H PRN PRN Reason: PAIN LEVEL 6-10 Last Admin: 09/26/17 07:36 Dose: 10 mg Pantoprazole Sodium (Protonix -) 40 mg PO DAILY [facility] Last Admin: 09/25/17 10:05 Dose: 40 mg Fluticasone/Salmeterol (Advair 100mcg/50mcg -) 1 puff IH BID [facility] Last Admin: 09/25/17 22:43 Dose: 1 puff Senna (Senna -) 2 tab PO HS [facility] Last Admin: 09/25/17 22:43 Dose: Not Given Tiotropium [place] (Spiriva -) 1 puff IH DAILY [facility] Last Admin: 09/25/17 10:03 Dose: 1 puff - Objective Vital Signs: Vital Signs Temperature 98.8 F 09/26/17 06:00 Pulse Rate 75 09/26/17 06:00 Respiratory Rate 18 09/26/17 06:00 Blood Pressure 125/64 09/26/17 06:00 O2 Sat by Pulse Oximetry (%) 97 09/25/17 21:00 Constitutional: Yes: Mild Distress Eyes: Yes: WNL HENT: Yes: WNL Neck: Yes: WNL Cardiovascular: Yes: WNL Respiratory: Yes: WNL Gastrointestinal: Yes: Tenderness Genitourinary: Yes: WNL Musculoskeletal: Yes: WNL Extremities: Yes: WNL Edema: No Peripheral Pulses WNL: Yes Integumentary: Yes: WNL Wound/Incision: Yes: Clean/Dry Neurological: Yes: WNL ...Motor Strength: WNL Psychiatric: Yes: WNL Labs: CBC, BMP 09/24/17 05:15 09/24/17 05:15 INR, PTT INR 1.07 (0.82-1.09) 09/21/17 17:15 Problem List - Problems (1) Abdominal pain Code(s): R10.9 - UNSPECIFIED ABDOMINAL PAIN (2) Benzodiazepine dependence, episodic Code(s): F13.20 - SEDATIVE, HYPNOTIC OR ANXIOLYTIC DEPENDENCE, UNCOMPLICATED (3) COPD exacerbation Code(s): J44.1 - CHRONIC OBSTRUCTIVE PULMONARY DISEASE W (ACUTE) EXACERBATION (4) Type 2 diabetes mellitus with diabetic neuropathy, unspecified Code(s): E11.40 - TYPE 2 DIABETES MELLITUS WITH DIABETIC NEUROPATHY, UNSP (5) Bipolar II disorder Code(s): F31.81 - BIPOLAR II DISORDER (6) Diabetes type 2, controlled Code(s): E11.9 - TYPE 2 DIABETES MELLITUS WITHOUT COMPLICATIONS (7) Hepatitis C Code(s): B19.20 - UNSPECIFIED VIRAL HEPATITIS C WITHOUT HEPATIC COMA Qualifiers: Viral hepatitis chronicity: unspecified Hepatic coma status: without hepatic coma Qualified Code(s): B19.20 - Unspecified viral hepatitis C without hepatic coma (8) Hypertension Code(s): I10 - ESSENTIAL (PRIMARY) HYPERTENSION Qualifiers: Hypertension type: essential hypertension Qualified Code(s): I10 - Essential (primary) hypertension (9) Hypothyroidism Code(s): E03.9 - HYPOTHYROIDISM, UNSPECIFIED Qualifiers: Hypothyroidism type: acquired Qualified Code(s): E03.9 - Hypothyroidism, unspecified (10) Nicotine dependence Code(s): F17.200 - NICOTINE DEPENDENCE, UNSPECIFIED, UNCOMPLICATED (11) Opioid dependence Code(s): F11.20 - OPIOID DEPENDENCE, UNCOMPLICATED (12) Seizure disorder Code(s): G40.909 - EPILEPSY, UNSP, NOT INTRACTABLE, WITHOUT STATUS EPILEPTICUS Assessment/Plan BOWEL PREP TODAY CLEAR DIET NPO AFTER MIDNIGHT EGD/COLONOSCOPY IN A STOP LEVEMIR SSI ONLY DVT PROPHYLAXIS
[2017-09-26 11:23] LABS: ALBUMIN 2.8 g/dl (3.4-5.0); ALK PHOS 75 U/L (45-117); ANION GAP 7 (8-16); BILIRUBIN,TOTAL 0.6 mg/dL (0.2-1.0); BLOOD UREA NITROGEN 7 mg/dL (7-18); CALCIUM 8.6 mg/dL (8.5-10.1); CHLORIDE 100 mmol/L (98-107); CO2 30 mmol/L (21-32); CREATININE 0.5 mg/dL (0.55-1.02); GLUCOSE,RANDOM 217 mg/dL (74-106); POTASSIUM 4.2 mmol/L (3.5-5.1); SGOT/AST 47 U/L (15-37); SGPT/ALT 53 U/L (12-78); SODIUM 137 mmol/L (136-145); TOT PROT 7.1 g/dl (6.4-8.2)
[2017-09-26] MEDS: levETIRAcetam 500 MG TABLET (FP) PO SCH ×2 (11:32→21:33)
[2017-09-26] MEDS: cloNIDine HCL 0.1 MG TABLET PO SCH ×2 (11:32→21:33)
[2017-09-26] MEDS: LACTOBACILLUS ACIDOPHILUS 1 TABLET PO SCH (11:33)
[2017-09-26] MEDS: LISINOPRIL 20 MG TABLET (FP) PO SCH (11:33)
[2017-09-26] MEDS: TIOTROPIUM BROMIDE 18 MCG CAPSULES IH SCH (11:33)
[2017-09-26] MEDS: PANTOPRAZOLE 40 MG TABLET (FP) PO SCH (11:33)
[2017-09-26] MEDS: DULoxetine HCL 30 MG CAPSULE.DR (FP) PO SCH (11:34)
[2017-09-26] MEDS: ASPIRIN COATED 81 MG TABLET.EC PO SCH (11:34)
[2017-09-26] MEDS: ASCORBIC ACID 500 MG TABLET (FP) PO SCH (11:34)
[2017-09-26] MEDS: FLUTICASONE/SALMETEROL 100 MCG/50 MCG DISKUS IH SCH ×2 (11:34→21:34)
[2017-09-26 16:46] LABS: HEMATOCRIT 41.7 % (32.4-45.2); HEMOGLOBIN 13.9 GM/dL (10.7-15.3); MCH 30.4 pg (25.7-33.7); MCHC 33.5 g/dl (32.0-36.0); MEAN CELL VOLUME 90.9 fl (80-96); PLATELET COUNT 273 K/MM3 (134-434); RBC 4.58 M/mm3 (3.60-5.2); RDW 14.8 % (11.6-15.6); WHITE BLOOD COUNT 8.9 K/mm3 (4.0-10.0)
[2017-09-26] MEDS: SENNOSIDES 8.6MG TABLET (FP) PO SCH (21:33)
[2017-09-26] MEDS: MONTELUKAST NA 10 MG TABLET PO SCH (21:33)
[2017-09-26] MEDS: DOCUSATE SODIUM 100 MG CAPSULE (FP) PO SCH (21:33)
[2017-09-27] MEDS: oxyCODONE HCL 5 MG TABLET PO PRN ×2 (02:20→08:13)
[2017-09-27] MEDS: HEPARIN NA (PORCINE) 5,000 UNITS/ML 1ML VIAL SQ SCH (05:21)
[2017-09-27] MEDS: hydrALAZINE HCL 25 MG TABLET (FP) PO SCH (06:12)
[2017-09-27] MEDS: INSULIN SLIDING SCALE (NOVOLOG) 1 VIAL SQ SCH ×2 (06:12→11:57)
[2017-09-27] MEDS ORDERED: INSULIN (NOVOLOG) ASPART 100 UNITS/ML 10ML VIAL ONE (06:19)
[2017-09-27] MEDS ORDERED: PROPOFOL 20 ML ONE ×2 (09:48)
--- NOTE | 2017-09-27 10:39 | PROC ---
Endoscopy Procedure Endoscopy procedure completed. Please see scanned procedure report. mild gastritis and duodenitis on EGD, biopsies taken Poor colon prep. Visualized mucosa appeared normal. No large intraluminal lesions, or polyps noted.
--- NOTE | 2017-09-27 11:15 | DS ---
Physical Examination Vital Signs: Vital Signs Temperature 98.2 F 09/27/17 10:55 Pulse Rate 71 09/27/17 10:58 Respiratory Rate 18 09/27/17 10:58 Blood Pressure 127/72 09/27/17 10:58 O2 Sat by Pulse Oximetry (%) 97 09/27/17 10:58 Constitutional: Yes: Well Nourished, No Distress, Calm Cardiovascular: Yes: Regular Rate and Rhythm Gastrointestinal: Yes: Normal Bowel Sounds, Soft, Abdomen, Obese, Tenderness ( RUQ,RLQ) Neurological: Yes: Alert, Oriented Psychiatric: Yes: Alert, Oriented Labs: CBC, BMP 09/26/17 16:38 09/26/17 10:45 Discharge Summary Reason For Visit: INTRACTABLE ABDOMINAL PAIN,PNEUMONIA Current Active Problems Abdominal pain (Acute) Abdominal tenderness (Acute) Benzodiazepine dependence, episodic (Acute) Carpal tunnel syndrome of right wrist (Acute) Carpal tunnel syndrome of right wrist (Acute) Chest pain (Acute) Chronic back pain (Acute) Insomnia secondary to depression with anxiety (Acute) Intractable abdominal pain (Acute) Leukocytosis (Acute) Palpitations (Acute) Pneumonia (Acute) Type 2 diabetes mellitus with other circulatory complications (Acute) Other Procedures: Endoscopy showed mild gastritis and duodenitis Hospital Course: This is a 57 y/o woman PMH: C diff colitis, NIDDM, CHF, CAD s/p stent x1, COPD, Hypothyroidism, Anxiety, Depression, Bipolar, Seizures (03/2013), Chronic Pain, Former IVDA, Hepatitis C, Cirrhosis. Who presents to the ED with chest pain, epigastric pain, fever and chills x3 days. Patient's last admission 05/27-06/03 Pneumonia, 05/13-05/20 Colitis. Patient describes the pain as sharp to stabbing intermittently to RUQ. Patient denies cough, SOB, N/V/D, constipation, hematochezia, melena, dysuria, hematuria. Condition: Stable - Instructions Referrals: Nikolas Roland MD, FAANS [Staff Physician] - Justice Mao MD [Staff Physician] - Ponce Mandujano MD [Staff Physician] - Rc Pineda MD [Primary Care Provider] - Disposition: HOME - Home Medications Comprehensive Discharge Medication List: Ambulatory Orders Tiotropium [place] [Spiriva] 18 mcg IH DAILY 12/21/14 Alprazolam [Xanax] 1 mg PO TID 07/13/16 Ascorbic Acid [Vitamin C -] 500 mg PO BID #60 tablet 02/15/17 Docusate Sodium [Colace -] 300 mg PO HS #30 cap 02/15/17 Insulin (Levemir) [Levemir Flexpen -] 20 units SQ BID #4 pen 02/15/17 Insulin (Novolog) [Novolog Flexpen -] 5 units SQ ACHS #4 pen 02/15/17 Montelukast Na [Singulair -] 10 mg PO HS #30 tablet 02/15/17 Salmeterol/Fluticasone [Advair 100Mcg/50Mcg -] 1 puff IH BID #1 inhaler Sennosides [Senna -] 2 tab PO HS #60 tablet 02/15/17 metFORMIN HCL [Glucophage -] 500 mg PO BID@0700,1630 #60 tablet 02/15/17 Acetaminophen [Tylenol .Regular Strength -] 650 mg PO Q6H PRN tablet 06/03/17 Aspirin Coated [Ecotrin -] 81 mg PO DAILY #30 tablet.ec 06/03/17 Diltiazem Cd [Cardizem Cd -] 120 mg PO DAILY #30 cap.cd.24h 06/03/17 Duloxetine HCl [Cymbalta -] 60 mg PO DAILY #30 capsule. 06/03/17 Gabapentin [Neurontin -] 300 mg PO TID #90 capsule 06/03/17 Lactobacillus Acidophilus [Bacid -] 1 tab PO DAILY #30 tab 06/03/17 Lipase/Protease/Amylase [Alexi Jones 36,000 Units Capsule] 1 cap PO TIDCM #90 capsule. 06/03/17 Lisinopril [Prinivil] 20 mg PO DAILY #30 tablet 06/03/17 Montelukast Na [Singulair -] 10 mg PO HS #30 tablet 06/03/17 Zolpidem Tartrate [Ambien] 10 mg PO HS PRN tablet MDD 1 06/03/17 cloNIDine HCL [Catapres -] 0.1 mg PO BID #60 tablet 06/03/17 hydrALAZINE HCL [Apresoline -] 25 mg PO TID #90 tablet 06/03/17 levETIRAcetam [Keppra -] 1,000 mg PO BID #60 tablet 06/03/17 predniSONE [Deltasone -] 40 mg PO DAILY #10 tablet 06/03/17 Levofloxacin [Levaquin] 500 mg PO DAILY 1 Days #1 tablet 09/27/17 Lisinopril [Prinivil] 20 mg PO DAILY #0 tablet 09/27/17 Sucralfate Oral Suspension [Carafate Oral Suspension -] 1 gm PO QID #1200 ml oxyCODONE HCL [Roxicodone -] 10 mg PO Q6H PRN #24 tablet MDD 4 09/27/17
[2017-09-27] MEDS ORDERED: PT OWN MED DRAWER 7, Y5N ONE (11:22)
[2017-09-27] MEDS: TIOTROPIUM BROMIDE 18 MCG CAPSULES IH SCH (11:41)
[2017-09-27] MEDS: levETIRAcetam 500 MG TABLET (FP) PO SCH (11:43)
[2017-09-27] MEDS: cloNIDine HCL 0.1 MG TABLET PO SCH (11:48)
[2017-09-27] MEDS: LISINOPRIL 20 MG TABLET (FP) PO SCH (11:48)
[2017-09-27] MEDS: FLUTICASONE/SALMETEROL 100 MCG/50 MCG DISKUS IH SCH (11:49)
[2017-09-27] MEDS: PANTOPRAZOLE 40 MG TABLET (FP) PO SCH (11:49)
[2017-09-27 13:11] VITALS: BP 147/87; PULSE 72; TEMP 98.9
--- NOTE | 2017-09-28 15:21 | PATH ---
Surgical Pathology Report Patient Name: STERLING THOMPSON Med. Rec. #: [id number] /Age/Gender: 1960 (Age: 57) / F Account: [id number] Location: [facility] MED/SURG Taken: 09/27/2017 Received: 09/27/2017 Reported: 09/28/2017 Physicians: Sil Hedrick M.D. Specimen(s) Received A: BX 2ND PORTION DUODENUM B: BX ANTRUM AND BODY Clinical History Chronic abdominal Postoperative diagnosis: Duodenitis, gastritis, abdominal pain Final Diagnosis A. DUODENUM, SECOND PORTION, BIOPSY: DUODENAL MUCOSA WITH MILD CHRONIC DUODENITIS. B. ANTRUM AND BODY, BIOPSY: GASTRIC MUCOSA WITH MILD CHRONIC GASTRITIS. IMMUNOSTAIN IS NEGATIVE FOR H. PYLORI ORGANISMS. Electronically Signed Terence Hill M.D. Gross Description A. Received in formalin, labeled "biopsy second portion of duodenum" are 2 aguilar, irregular portions of soft tissue averaging 0.4 cm. in greatest dimension. The specimens are submitted in toto in one cassette. B. Received in formalin, labeled "biopsy antrum/body" are 2 aguilar, irregular portions of soft tissue measuring 0.3 and 0.4 cm. in greatest dimension. The specimens are submitted in toto in one cassette. 09/27/201709/27/2017
== END 2017-09-27 14:23 | disposition home or self-care (01) | DRG 241 ==
LOC: JER 15:09 → JERBED 09-22 00:06 → J7W 09-22 05:35 → OBSVTOIN 09-23 15:32
PROVIDERS: ADMIT Internal Medicine; ATTEND Family Medicine
PROC: 0DD68ZX Extraction of Stomach, Via Natural or Artificial Opening Endoscopic, Diagnostic (ICD-10-PCS; 2017-09-27)
PROC: 0DJD8ZZ Inspection of Lower Intestinal Tract, Via Natural or Artificial Opening Endoscopic (ICD-10-PCS; 2017-09-27)
PROC: 0DD98ZX Extraction of Duodenum, Via Natural or Artificial Opening Endoscopic, Diagnostic (ICD-10-PCS; principal; 2017-09-27 10:00)
DX: K29.70 Gastritis, unspecified, without bleeding (principal); I11.0 Hypertensive heart disease with heart failure; I50.9 Heart failure, unspecified; I25.10 Atherosclerotic heart disease of native coronary artery without angina pectoris; Z98.61 Coronary angioplasty status; R07.9 Chest pain, unspecified; E03.9 Hypothyroidism, unspecified; F41.8 Other specified anxiety disorders; J44.9 Chronic obstructive pulmonary disease, unspecified; E11.9 Type 2 diabetes mellitus without complications; D72.829 Elevated white blood cell count, unspecified; F13.20 Sedative, hypnotic or anxiolytic dependence, uncomplicated; F17.210 Nicotine dependence, cigarettes, uncomplicated; E11.40 Type 2 diabetes mellitus with diabetic neuropathy, unspecified; E11.65 Type 2 diabetes mellitus with hyperglycemia; F51.05 Insomnia due to other mental disorder; F31.81 Bipolar II disorder; F11.21 Opioid dependence, in remission; K29.80 Duodenitis without bleeding; F14.21 Cocaine dependence, in remission; M47.892 Other spondylosis, cervical region; E87.2 Acidosis; R10.9 Unspecified abdominal pain
CPT/HCPCS: 36415; 71046-TC-FY; 74177-TC; 76830-TC; 80048; 80053; 80061; 80307; 81003; 81015; 82550; 82962; 83036; 83605; 83690; 83721; 83735; 83880; 84484; 85025; 85027; 85610; 85651; 86140; 87040; 87086; 87804; 87899; 88305-TC; 93005; 93010; 93971-TC; 95860-TC; 99285-25; G0378; J0735; J1644; Q0162

== ENCOUNTER 2017-12-22 12:13 | Observation (INO) | payer OTHER ==
[2017-12-22 12:32] VITALS: BMI 36.0
--- NOTE | 2017-12-22 13:50 | PDOC ---
History of Present Illness - General Chief Complaint: Chest Pain Stated Complaint: CHEST PAIN Time Seen by Provider: 12/22/17 13:34 History Source: Patient Exam Limitations: No Limitations - History of Present Illness Initial Comments: 12/22/17 13:50 57 year old woman with history of T2DM, CHF, COPD, HCV, CAD s/p stent (ASA 81) who presents with 2 days of L shoulder pain described as sharp and radiating down her arm that occurred while she was cooking yesterday. She notes weakness and pain and reports that she was not able to dress herself this morning. She denies taking anything for pain relief. She denies any trauma to the arm and reports that she is R handed. She also complains of 3 days of chest pain, shortness of breath and bilateral leg swelling that has not worsened since she was seen in this ED yesterday but has remained the same. She denies any other complaints at this time. PMHX: as in HPI Meds: see below Allergies: NKDA Tob: none Etoh: none Rec drugs: none Past History - Past Medical History Allergies/Adverse Reactions: Allergies Allergy/AdvReac Type Severity Reaction Status Date / Time No Known Allergies Allergy Verified 12/22/17 12:33 Home Medications: Ambulatory Orders Tiotropium [place] [Spiriva] 18 mcg IH DAILY 12/21/14 Ascorbic Acid [Vitamin C -] 500 mg PO BID #60 tablet 02/15/17 Salmeterol/Fluticasone [Advair 100Mcg/50Mcg -] 1 puff IH BID #1 inhaler metFORMIN HCL [Glucophage -] 500 mg PO BID@0700,1630 #60 tablet 02/15/17 Aspirin Coated [Ecotrin -] 81 mg PO DAILY #30 tablet.ec 06/03/17 Diltiazem Cd [Cardizem Cd -] 120 mg PO DAILY #30 cap.cd.24h 06/03/17 Duloxetine HCl [Cymbalta -] 60 mg PO DAILY #30 capsule. 06/03/17 Lisinopril [Prinivil] 20 mg PO DAILY #30 tablet 06/03/17 Zolpidem Tartrate [Ambien] 10 mg PO HS PRN tablet MDD 1 06/03/17 cloNIDine HCL [Catapres -] 0.1 mg PO BID #60 tablet 06/03/17 levETIRAcetam [Keppra -] 1,000 mg PO BID #60 tablet 06/03/17 Albuterol 0.083% Nebulizer Kathleen [Ventolin 0.083% Nebulizer Soln -] 1 neb NEB Q4H PRN #20 vial 12/20/17 Albuterol Sulfate Inhaler - [Ventolin Hfa Inhaler -] 1 - 2 inh PO Q4H PRN #1 inhaler 12/20/17 Docusate Sodium [Colace -] 300 mg PO HS PRN 12/20/17 Gabapentin [Neurontin -] 300 mg PO TID PRN 12/20/17 Sennosides [Senna -] 2 tab PO HS PRN 12/20/17 Insulin Glargine,Hum.rec.anlog [Lantus] 35 unit SQ BID 12/22/17 hydrALAZINE HCL [Apresoline -] 25 mg PO BID 12/22/17 oxyCODONE HCL [Roxicodone -] 5 mg PO Q6H PRN MDD 4 12/22/17 Anemia: No Asthma: Yes Cancer: No Cardiac Disorders: Yes (Stent X 1) CVA: No COPD: Yes CHF: Yes DVT: No Dementia: No Diabetes: Yes GI Disorders: No Disorders: No HTN: Yes Hypercholesterolemia: Yes Kidney Stones: Yes Liver Disease: Yes (Cirrhosis, Hepatitis C) Psychiatric Problems: Yes (bipolar) Seizures: Yes (Last episode 03/2013) Thyroid Disease: Yes - Surgical History Abdominal Surgery: No Appendectomy: Yes (age 11) Cardiac Surgery: Yes (Stent X 1) Cholecystectomy: Yes Lung Surgery: No Neurologic Surgery: No Orthopedic Surgery: Yes (Lower back 02/2013) - Family Disease History Family Disease History: Diabetes: Brother, Sister, Heart Disease: Brother, Sister - Immunization History Td Vaccination: Yes Immunization Up to Date: Yes - Suicide/Smoking/Psychosocial Hx Smoking Status: Yes Smoking History: Current every day smoker Have you smoked in the past 12 months: Yes Number of Cigarettes Smoked Daily: 12 Information on smoking cessation initiated: Yes 'Breaking Loose' booklet given: 12/22/17 Hx Alcohol Use: No Drug/Substance Use Hx: No Substance Use Type: Opiates Hx Substance Use Treatment: Yes Review of Systems - Review of Systems Able to Perform ROS?: Yes Is the patient limited Urdu proficient: No Constitutional: No: Chills, Diaphoresis, Fever HEENTM: No: Tinnitus Respiratory: No: Cough, Orthopnea, Shortness of Breath Cardiac (ROS): Yes: Chest Pain, Edema. No: Lightheadedness, Palpitations ABD/GI: No: Constipated, Diarrhea, Nausea, Vomiting : No: Burning, Dysuria, Hematuria Musculoskeletal: Yes: See HPI, Joint Pain (L shoulder), Muscle Pain, Muscle Weakness Neurological: No: Headache, Numbness, Tingling *Physical Exam - Vital Signs Last Vital Signs Temp Pulse Resp BP Pulse Ox 98 F 100 H 18 152/107 97 12/22/17 12:30 12/22/17 12:30 12/22/17 12:30 12/22/17 12:30 12/22/17 12:30 - Physical Exam Comments: 12/22/17 13:57 GENERAL: Awake, alert, and fully oriented, patient tearful, complaining of L shoulder pain, sling removed patient holding L forearm in R hand HEAD: No signs of trauma, normocephalic, atraumatic EYES: EOMI, sclera anicteric, conjunctiva clear ENT: oropharynx clear without exudates. Moist mucosa NECK: Normal ROM, supple, no lymphadenopathy, JVD, or masses LUNGS: No distress, speaks full sentences, expiratory wheeze in all lung bases. HEART: Regular rate and rhythm, normal S1 and S2, no murmurs, rubs or gallops, peripheral pulses normal and equal bilaterally, mildly distant heart sounds ABDOMEN: Soft, nontender, normoactive bowel sounds. No guarding, no rebound. 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 She notes weakness and pain and reports that she was not able to dress herself this morning. She denies taking anything for pain. She denies any trauma to the arm and reports that she is R handed. DDX including but not limited to: ACS vs dislocation vs fracture vs muscle strain vs nerve impingement W/U: - cbc, cmp, BNP, trop - L shoulder XR - EKG ED Course: Patient stable. 12/22/17 15:24 Patient reassessed stable. 12/22/17 17:10 wbc 16.1 pt admitted for observation. *DC/Admit/Observation/Transfer Diagnosis at time of Disposition: Chest pain - Discharge Dispostion Decision to Admit order: Yes - Referrals - Patient Instructions - Post Discharge Activity
[2017-12-22] MEDS ORDERED: ACETAMINOPHEN 1000 MG/100 ML VIAL (NON FORMULARY) IVPB ONE (15:28)
[2017-12-22] MEDS ORDERED: ACETAMINOPHEN INJECTION 100 ML IVPB ONE (15:37)
[2017-12-22 16:07] LABS: BASO % 1.5 % (0-2.0); EOS % 2.5 % (0-4.5); HEMATOCRIT 44.9 % (32.4-45.2); HEMOGLOBIN 14.7 GM/dL (10.7-15.3); LYMPH % 28.7 % (8-40); MCH 30.2 pg (25.7-33.7); MCHC 32.7 g/dl (32.0-36.0); MEAN CELL VOLUME 92.1 fl (80-96); MEAN PLT VOLUME 9.4 fl (7.5-11.1); MONO % 8.4 % (3.8-10.2); NEUT % 58.9 % (42.8-82.8); PLATELET COUNT 314 K/MM3 (134-434); RBC 4.87 M/mm3 (3.60-5.2); RDW 13.6 % (11.6-15.6); WHITE BLOOD COUNT 16.3 K/mm3 (4.0-10.0)
[2017-12-22] MEDS ORDERED: ACETAMINOPHEN 325 MG TABLET (FP) ONE (16:58)
[2017-12-22] MEDS ORDERED: ACETAMINOPHEN 500 MG TABLET (FP) PO ONE (16:58)
--- NOTE | 2017-12-22 18:53 | PDOC ---
Attending Attestation - Resident Resident Name: Shellie Escamilla - ED Attending Attestation I have performed the following: I have examined & evaluated the patient, The case was reviewed & discussed with the resident, I agree w/resident's findings & plan, Exceptions are as noted - HPI HPI: 12/22/17 18:39 The patient is a 57 year old female, with a significant past medical history of DM Type II, CHF, COPD, HCV, CAD s/p stent (ASA 81), Cirrhosis, Hepatitis C, who presents to the emergency department with left shoulder pain, weakness, and decreased ROM. Also reports 3 days of CP and SOB. She states she was cooking at the onset of pain. She was evaluated in this ED for chest pain and lower extremity edema and discharged home yesterday. She denies trauma. The patient denies headache and dizziness. The patient denies fever, chills, nausea, vomit, diarrhea and constipation. The patient denies dysuria, frequency , urgency and hematuria. Allergies: NKDA Past surgical history: appendectomy, cardiac stent x1 - Physicial Exam PE: 12/22/17 18:43 agree with resident exam - Medical Decision Making 12/25/17 00:29 57yo F w MMP including CAD presents to the ED with atraumatic L shoulder pain as well as 3 days of SOB/CP. Pt is high risk for ACS. 1st trop negative, cxr clear. shoulder xr with possible bursitis? Pt admitted for LYNNE Heart Score/ECG Review #1 12/22/17 18:43 Twelve-lead EKG was performed and reviewed by me. Normal sinus rhythm, rate 98. Normal axis and intervals. No ST elevations or T-wave inversions.
[2017-12-22 19:25] LABS: ALBUMIN 2.8 g/dl (3.4-5.0); ANION GAP 6 MMOL/L (8-16); BILIRUBIN,TOTAL 0.6 mg/dL (0.2-1.0); BLOOD UREA NITROGEN 12 mg/dL (7-18); CALCIUM 8.9 mg/dL (8.5-10.1); CHLORIDE 103 mmol/L (98-107); CO2 31 mmol/L (21-32); CREATININE 0.4 mg/dL (0.55-1.02); GLUCOSE,RANDOM 79 mg/dL (74-106); POTASSIUM 4.2 mmol/L (3.5-5.1); SGOT/AST 31 U/L (15-37); SGPT/ALT 46 U/L (13-61); SODIUM 140 mmol/L (136-145)
[2017-12-22 19:27] LABS: ALK PHOS 100 U/L (45-117)
[2017-12-22] MEDS ORDERED: DEXTROSE 5%-WATER - 1,000 ML IV SCH (20:15)
[2017-12-22] MEDS ORDERED: oxyCODONE HCL 5 MG TABLET PO ONE ×2 (21:35→23:05)
[2017-12-22] MEDS ORDERED: oxyCODONE HCL 5 MG TABLET ONE ×2 (21:48→23:09)
--- NOTE | 2017-12-22 22:35 | HP ---
CHIEF COMPLAINT: left shoulder pain/chest pain/sob PCP: Miriam HISTORY OF PRESENT ILLNESS: This is a 57 year old female with a past medical history significant for CAD, CHF, HTN, HLD, COPD, DM who presented to the ED with severe pain to her left shoulder since last night. No obvious injury. Pain began when she was doing dishes. She also reports associated SOB and Chest pain. She was seen here in this ED 2 days ago for pleuritic CP, cough and SOB. She was treated for COPD exacerbation and released. She did not take her steroids that were prescribed. She did receive one dose of prednisone 60mg po here in the ED. ER course was notable for: (1) troponin neg x 1 (2) ECG without changes (3) shoulder xray with no obvious fracture or dislocation Recent Travel: pt denies PAST MEDICAL HISTORY: HTN, HLD, CHF, CAD, COPD, DM, HCV, renal stones, bipolar disorder PAST SURGICAL HISTORY: Cardiac stent lower back sx 2013 appendectomy, age 11 cholecystectomy hysterectomy tonsillectomy Social History: Smokinppd Alcohol: pt denies Drugs: former Allergies No Known Allergies Allergy (Verified 12/22/17 12:33) HOME MEDICATIONS: 3 Medication Instructions Recorded Tiotropium [place] [Spiriva] 18 mcg IH DAILY 12/21/14 Alprazolam [Xanax] 1 mg PO TID 07/13/16 Ascorbic Acid [Vitamin C -] 500 mg PO BID #60 tablet 02/15/17 Insulin (Levemir) [Levemir Flexpen 20 units SQ BID #4 pen 02/15/17 -] Insulin (Novolog) [Novolog Flexpen 5 units SQ ACHS #4 pen 02/15/17 -] Salmeterol/Fluticasone [Advair 1 puff IH BID #1 inhaler 02/15/17 100Mcg/50Mcg -] metFORMIN HCL [Glucophage -] 500 mg PO BID@0700,1630 #60 tablet 02/15/17 Acetaminophen [Tylenol .Regular 650 mg PO Q6H PRN tablet 06/03/17 Strength -] Aspirin Coated [Ecotrin -] 81 mg PO DAILY #30 tablet.ec 06/03/17 Diltiazem Cd [Cardizem Cd -] 120 mg PO DAILY #30 cap.cd.24h 06/03/17 Duloxetine HCl [Cymbalta -] 60 mg PO DAILY #30 capsule. 06/03/17 Lisinopril [Prinivil] 20 mg PO DAILY #30 tablet 06/03/17 Montelukast Na [Singulair -] 10 mg PO HS #30 tablet 06/03/17 Zolpidem Tartrate [Ambien] 10 mg PO HS PRN tablet MDD 1 06/03/17 cloNIDine HCL [Catapres -] 0.1 mg PO BID #60 tablet 06/03/17 hydrALAZINE HCL [Apresoline -] 25 mg PO TID #90 tablet 06/03/17 levETIRAcetam [Keppra -] 1,000 mg PO BID #60 tablet 06/03/17 oxyCODONE HCL [Roxicodone -] 10 mg PO Q6H PRN #24 tablet MDD 4 09/27/17 Albuterol 0.083% Nebulizer Kathleen 1 neb NEB Q4H PRN #20 vial 12/20/17 [Ventolin 0.083% Nebulizer Soln -] Albuterol Sulfate Inhaler - 1 - 2 inh PO Q4H PRN #1 inhaler 12/20/17 [Ventolin Hfa Inhaler -] Docusate Sodium [Colace -] 300 mg PO HS PRN 12/20/17 Gabapentin [Neurontin -] 300 mg PO TID PRN 12/20/17 Methylprednisolone [Medrol Dose 4 mg PO ASDIR #21 tablet 12/20/17 Pantera] Sennosides [Senna -] 2 tab PO HS PRN 12/20/17 REVIEW OF SYSTEMS CONSTITUTIONAL: Absent: fever, chills, diaphoresis, generalized weakness, malaise, loss of appetite, weight change HEENT: Absent: rhinorrhea, nasal congestion, throat pain, throat swelling, difficulty swallowing, mouth swelling, ear pain, eye pain, visual changes CARDIOVASCULAR: Present: chest pain Absent: syncope, palpitations, irregular heart rate, lightheadedness, peripheral edema RESPIRATORY: Present: shortness of breath Absent: cough, dyspnea with exertion, orthopnea, wheezing, stridor, hemoptysis GASTROINTESTINAL: Absent: abdominal pain, abdominal distension, nausea, vomiting, diarrhea, constipation, melena, hematochezia GENITOURINARY: Absent: dysuria, frequency, urgency, hesitancy, hematuria, flank pain, genital pain MUSCULOSKELETAL: Present: left shoulder pain Absent: myalgia, arthralgia, joint swelling, back pain, neck pain SKIN: Absent: rash, itching, pallor HEMATOLOGIC/IMMUNOLOGIC: Absent: easy bleeding, easy bruising, lymphadenopathy, frequent infections ENDOCRINE: Absent: unexplained weight gain, unexplained weight loss, heat intolerance, cold intolerance NEUROLOGIC: Absent: headache, focal weakness or paresthesias, dizziness, unsteady gait, seizure, mental status changes, bladder or bowel incontinence PSYCHIATRIC: Absent: anxiety, depression, suicidal or homicidal ideation, hallucinations. PHYSICAL EXAMINATION Vital Signs - 24 hr 3 12/22/17 12/22/17 12/22/17 12:30 19:15 19:34 Temperature 98 F Pulse Rate 100 H Pulse Rate [ 69 Left Radial] Respiratory 18 18 Rate Blood Pressure 152/107 Blood Pressure 145/100 [Right Arm] O2 Sat by Pulse 97 98 100 Oximetry (%) GENERAL: Awake, alert, and fully oriented, in no acute distress. HEAD: Normal with no signs of trauma. EYES: Pupils equal, round and reactive to light, extraocular movements intact, sclera anicteric, conjunctiva clear. No lid lag. EARS, NOSE, THROAT: Ears normal, nares patent, oropharynx clear without exudates. Moist mucous membranes. NECK: Normal range of motion, supple without lymphadenopathy, JVD, or masses. LUNGS: Mild expiratory wheezing, and no crackles. No accessory muscle use. HEART: Regular rate and rhythm, normal S1 and S2 without murmur, rub or gallop. ABDOMEN: Soft, nontender, not distended, normoactive bowel sounds, no guarding, no rebound, no masses. No hepatomegaly or splenomegaly. MUSCULOSKELETAL: Normal range of motion at all joints except left shoulder. No bony deformities or tenderness. No CVA tenderness. ROM severely limited due to pain. + fatty lipoma left lateral upper arm. pain on palpation left anterior shoulder joint. UPPER EXTREMITIES: 2+ pulses, warm, well-perfused. No cyanosis. No clubbing. No peripheral edema. LOWER EXTREMITIES: 2+ pulses, warm, well-perfused. No calf tenderness. 1+ peripheral edema B/L NEUROLOGICAL: Cranial nerves II-XII intact. Normal speech. Normal gait. PSYCHIATRIC: Cooperative. Good eye contact. Appropriate mood and affect. SKIN: Warm, dry, normal turgor, no rashes or lesions noted, normal capillary refill. Laboratory Results - last 24 hr 3 12/22/17 12/22/17 12/22/17 15:25 15:25 15:25 WBC 16.3 H RBC 4.87 Hgb 14.7 Hct 44.9 MCV 92.1 MCH 30.2 MCHC 32.7 RDW 13.6 Plt Count 314 MPV 9.4 Absolute Neuts (auto) 9.6 H Neutrophils % 58.9 Lymphocytes % 28.7 Monocytes % 8.4 Eosinophils % 2.5 Basophils % 1.5 Nucleated RBC % 0 Sodium Cancelled Potassium Cancelled Chloride Cancelled Carbon Dioxide Cancelled Anion Gap Cancelled BUN Cancelled Creatinine Cancelled Creat Clearance w eGFR Cancelled POC Glucometer Random Glucose Cancelled Calcium Cancelled Total Bilirubin Cancelled AST Cancelled ALT Cancelled Alkaline Phosphatase Cancelled Troponin I Cancelled B-Natriuretic Peptide Cancelled Total Protein Cancelled Albumin Cancelled 3 12/22/17 12/22/17 18:52 19:59 WBC RBC Hgb Hct MCV MCH MCHC RDW Plt Count MPV Absolute Neuts (auto) Neutrophils % Lymphocytes % Monocytes % Eosinophils % Basophils % Nucleated RBC % Sodium 140 Potassium 4.2 Chloride 103 Carbon Dioxide 31 Anion Gap 6 L BUN 12 Creatinine 0.4 L Creat Clearance w eGFR > 60 POC Glucometer 64.43741 Random Glucose 79 Calcium 8.9 Total Bilirubin 0.6 AST 31 ALT 46 Alkaline Phosphatase 100 D Troponin I < 0.02 B-Natriuretic Peptide Total Protein 7.0 Albumin 2.8 L ECG NORMAL SINUS RHYTHM vent rate 98, QTC 434 possible left atrial enlargement septal infarct no acute ST/T wave changes Radiology Reports CXR official read pending, no obvious infiltrate or effusion L shoulder official read pending, no obvious fracture or dislocation ASSESSMENT/PLAN: 57yF with PMH HTN, HLD, CHF, CAD, COPD, DM, HCV, renal stones, bipolar disorder presented to the ED with left shoulder pain, chest pain and SOB. chest pain - troponin neg x 1, trend x 2 more - electronic device monitor - doubtful ACS or cardiac related, likely referred pain from shoulder HTN/HLD - cont home meds: clonidine, hydralazine, lisinopril, cardizem, ASA - unclear why not on statin, PCP to f/u COPD exacerbation - duoneb QID - mild wheezing only, scattered, will hold on steroids leukocytosis - afebrile, no infiltrate - ? due to prednisone in ED - repeat CBC in am left shoulder pain - oxycodone 5mg prn - ortho consult - sling DM - home lantus changed to formulary levemir - hold metformin while inpt - BGM AC/HS with novolog SS bipolar - cont home cymbalta DVT PPX - heparin deferred, anticipated LOS less than 48h FEN - tolerating po - BMP in am - diabetic / low sodium diet as tolerated Dispo: Pt currently requires further observation. Visit type - Emergency Visit Emergency Visit: Yes ED Registration Date: 12/22/17 Care time: The patient presented to the Emergency Department on the above date and was hospitalized for further evaluation of their emergent condition. - New Patient This patient is new to me today: Yes Date on this admission: 12/22/17 - Critical Care Critical Care patient: No Hospitalist Screening - Colonoscopy Questionnaire Colonoscopy Questionnaire: Colonoscopy Questionnaire - Patient: 50 - 75 years old and never had a screening colonoscopy: No History of colon or rectal polyps, or CA: No History of IBD, Crohn's disease or UC: No History of abdominal radiation therapy as a child: No - Relative: 1 with colon or rectal CA, or polyps at age 60 or younger: No Colon or rectal CA diagnosed at age 45 or younger: No Multiple relatives with colon or rectal CA: No - Outcome: Screening Result: Negative Screen
[2017-12-22] MEDS ORDERED: SENNOSIDES 8.6MG TABLET (FP) PO PRN (22:46)
[2017-12-22] MEDS ORDERED: ALBUTEROL SO4 0.083% IH SOL 2.5 MG/3 ML VIAL.NEB. NEB PRN (22:46)
[2017-12-22] MEDS ORDERED: DOCUSATE SODIUM 100 MG CAPSULE (FP) PO PRN (22:46)
[2017-12-22] MEDS ORDERED: MELATONIN 5 MG TABLETS PO PRN (22:48)
[2017-12-23] MEDS ORDERED: oxyCODONE HCL 5 MG TABLET PO ONE (01:42)
[2017-12-23] MEDS ORDERED: oxyCODONE HCL 5 MG TABLET ONE ×3 (02:08→13:10)
[2017-12-23] MEDS: oxyCODONE HCL 5 MG TABLET PO PRN ×3 (06:02→21:19)
[2017-12-23] MEDS: GABAPENTIN 300 MG CAPSULE (FP) PO SCH ×4 (06:02→21:15)
[2017-12-23] MEDS ORDERED: metFORMIN HCL 500 MG TABLET (FP) PO SCH (07:00)
[2017-12-23] MEDS: INSULIN SLIDING SCALE (NOVOLOG) 1 VIAL SQ SCH ×4 (07:00→21:19)
[2017-12-23] MEDS ORDERED: INSULIN (LEVEMIR) 100 UNITS/ML UNITS SQ ONE ×2 (07:10→07:12)
[2017-12-23 07:12] LABS: BASO % 0.7 % (0-2.0); EOS % 1.6 % (0-4.5); HEMATOCRIT 42.1 % (32.4-45.2); LYMPH % 17.4 % (8-40); MCH 30.1 pg (25.7-33.7); MCHC 33.3 g/dl (32.0-36.0); MEAN CELL VOLUME 90.5 fl (80-96); MONO % 9.1 % (3.8-10.2); NEUT % 71.2 % (42.8-82.8); PLATELET COUNT 311 K/MM3 (134-434); RBC 4.65 M/mm3 (3.60-5.2); RDW 13.6 % (11.6-15.6)
[2017-12-23] MEDS: INSULIN (LEVEMIR) 100 UNITS/ML UNITS SQ SCH ×2 (07:27→21:23)
[2017-12-23 07:36] LABS: ANION GAP 11 MMOL/L (8-16); BLOOD UREA NITROGEN 9 mg/dL (7-18); CHLORIDE 99 mmol/L (98-107); CO2 28 mmol/L (21-32); CREATININE 0.4 mg/dL (0.55-1.02); GLUCOSE,RANDOM 187 mg/dL (74-106); MAGNESIUM 1.7 mg/dL (1.8-2.4); PHOSPHOROUS 4.4 mg/dL (2.5-4.9); POTASSIUM 3.9 mmol/L (3.5-5.1); SODIUM 138 mmol/L (136-145)
[2017-12-23] MEDS ORDERED: ALBUTEROL SO4 2.5/IPRATROPIUM 0.5 INH SOL 3 ML VIAL.NEB. NEB ONE (08:11)
[2017-12-23] MEDS: ALBUTEROL SO4 2.5/IPRATROPIUM 0.5 INH SOL 3 ML VIAL.NEB. NEB SCH ×4 (08:12→21:10)
[2017-12-23] MEDS: cloNIDine HCL 0.1 MG TABLET PO SCH ×2 (09:35→21:14)
[2017-12-23] MEDS: ASPIRIN COATED 81 MG TABLET.EC PO SCH (09:35)
[2017-12-23] MEDS: DULoxetine HCL 30 MG CAPSULE.DR (FP) PO SCH (09:35)
[2017-12-23] MEDS: hydrALAZINE HCL 25 MG TABLET (FP) PO SCH ×2 (09:35→21:14)
[2017-12-23] MEDS: LISINOPRIL 20 MG TABLET (FP) PO SCH (09:36)
[2017-12-23] MEDS: levETIRAcetam 500 MG TABLET (FP) PO SCH ×2 (09:36→21:14)
[2017-12-23] MEDS: ASCORBIC ACID 500 MG TABLET (FP) PO SCH ×2 (09:36→21:14)
--- NOTE | 2017-12-23 10:25 | CON.ORTH ---
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 pt thinks she may have had one in the past (L facial droop)), Seizure. No: Alzheimer's Cardio/Vascular: Yes: CAD, HTN. No: AFIB Pulmonary: Yes: Asthma, COPD Gastrointestinal: Yes: Hiatal Hernia, Other ("colitis" mid-April) Hepatobiliary: Yes: Hepatitis C (from a blood transfusion) Infectious Disease: Yes: MRSA (R thigh abscess 02/26) Psych: Yes: Addictions, Anxiety, Bipolar, Depression Musculoskeletal: Yes: Chronic low back pain Endocrine: Yes: Diabetes Mellitus - Past Surgical History Past Surgical History: Yes: Appendectomy, Cholecystectomy (laparoscopic), Colonoscopy, Hysterectomy (vaginal) - Alcohol/Substance Use Hx Alcohol Use: No History of Substance Use: reports: Cocaine (crack) - Smoking History Smoking history: Current every day smoker Have you smoked in the past 12 months: Yes Aproximately how many cigarettes per day: 12 - Social History Usual Living Arrangement: With Spouse Occupation: disabled History of Recent Travel: No Home Medications - Allergies Allergies/Adverse Reactions: Allergies Allergy/AdvReac Type Severity Reaction Status Date / Time No Known Allergies Allergy Verified 12/22/17 12:33 - Home Medications Home Medications: Ambulatory Orders Tiotropium [place] [Spiriva] 18 mcg IH DAILY 12/21/14 Ascorbic Acid [Vitamin C -] 500 mg PO BID #60 tablet 02/15/17 Salmeterol/Fluticasone [Advair 100Mcg/50Mcg -] 1 puff IH BID #1 inhaler metFORMIN HCL [Glucophage -] 500 mg PO BID@0700,1630 #60 tablet 02/15/17 Aspirin Coated [Ecotrin -] 81 mg PO DAILY #30 tablet.ec 06/03/17 Diltiazem Cd [Cardizem Cd -] 120 mg PO DAILY #30 cap.cd.24h 06/03/17 Duloxetine HCl [Cymbalta -] 60 mg PO DAILY #30 capsule.dr 06/03/17 Lisinopril [Prinivil] 20 mg PO DAILY #30 tablet 06/03/17 Zolpidem Tartrate [Ambien] 10 mg PO HS PRN tablet MDD 1 06/03/17 cloNIDine HCL [Catapres -] 0.1 mg PO BID #60 tablet 06/03/17 levETIRAcetam [Keppra -] 1,000 mg PO BID #60 tablet 06/03/17 Albuterol 0.083% Nebulizer Kathleen [Ventolin 0.083% Nebulizer Soln -] 1 neb NEB Q4H PRN #20 vial 12/20/17 Albuterol Sulfate Inhaler - [Ventolin Hfa Inhaler -] 1 - 2 inh PO Q4H PRN #1 inhaler 12/20/17 Docusate Sodium [Colace -] 300 mg PO HS PRN 12/20/17 Gabapentin [Neurontin -] 300 mg PO TID PRN 12/20/17 Sennosides [Senna -] 2 tab PO HS PRN 12/20/17 Insulin Glargine,Hum.rec.anlog [Lantus] 35 unit SQ BID 12/22/17 hydrALAZINE HCL [Apresoline -] 25 mg PO BID 12/22/17 oxyCODONE HCL [Roxicodone -] 5 mg PO Q6H PRN MDD 4 12/22/17 Family Disease History - Family Disease History Family Disease History: Diabetes: Mother, Heart Disease: Father, Brother, Sister , Respiratory: Father, Other: Father, Brother, Sister Physical Exam for Ortho Vital Signs: Vital Signs Temperature 100.1 F H 12/23/17 09:15 Pulse Rate 101 H 12/23/17 09:15 Respiratory Rate 20 12/23/17 09:15 Blood Pressure 174/95 12/23/17 09:15 O2 Sat by Pulse Oximetry (%) 97 12/23/17 09:15 Labs: CBC, BMP 12/23/17 06:50 12/23/17 06:50 - Upper Extremity Shoulder: Yes: Left, Limited ROM, Pain, Swelling, Tenderness, Other (nvi) Imaging - Results X-ray: Report Reviewed, Image Reviewed Assessment/Plan 57 year old female with a past medical history significant for CAD, CHF, HTN, HLD, COPD, DM who presented to the ED with severe pain to her left shoulder since last night. Denies any injury/trauma, numbness/tingling. a/p- left shoulder calcific tendinosis will order lido/depo injection for left shoulder will be done tomorrow NSAIDs if ok with medicine encouraged ROM exercises pain control d/w Dr. Callahan
[2017-12-23] MEDS ORDERED: LIDOCAINE HCL 1%, 10 MG/ML (50 mL VIAL) NR ONE (10:26)
[2017-12-23] MEDS: TIOTROPIUM BROMIDE 2.5 MCG (SPIRIVA) RESPIMAT INHALER IH SCH (10:47)
[2017-12-23] MEDS: FLUTICASONE/SALMETEROL 100 MCG/50 MCG DISKUS IH SCH ×2 (10:47→21:14)
--- NOTE | 2017-12-23 10:49 | PN ---
Progress Note, Physician Chief Complaint: patient seen in ER complaining of shuolder pain and not able to raise her left arm left arm in sling - Current Medication List Current Medications: Active Medications Albuterol Sulfate (Ventolin 0.083% Nebulizer Soln -) 1 amp NEB Q4H PRN PRN Reason: ASTHMA Albuterol/Ipratropium (Duoneb -) 1 amp NEB RQID [facility] Last Admin: 12/23/17 08:12 Dose: 1 amp Ascorbic Acid (Vitamin C -) 500 mg PO BID [facility] Last Admin: 12/23/17 09:36 Dose: 500 mg Aspirin (Ecotrin -) 81 mg PO DAILY [facility] Last Admin: 12/23/17 09:35 Dose: 81 mg Clonidine (Catapres -) 0.1 mg PO BID [facility] Last Admin: 12/23/17 09:35 Dose: 0.1 mg Diltiazem HCl (Cardizem Cd -) 120 mg PO DAILY [facility] Last Admin: 12/23/17 09:35 Dose: 120 mg Docusate Sodium (Colace -) 300 mg PO HS PRN PRN Reason: CONSTIPATION Duloxetine HCl (Cymbalta -) 60 mg PO DAILY [facility] Last Admin: 12/23/17 09:35 Dose: 60 mg Gabapentin (Neurontin -) 300 mg PO TID [facility] Last Admin: 12/23/17 06:02 Dose: 300 mg Hydralazine HCl (Apresoline -) 25 mg PO BID [facility] Last Admin: 12/23/17 09:35 Dose: 25 mg Insulin Aspart (Novolog Vial Sliding Scale -) 1 vial SQ ACHS [facility]; Protocol Last Admin: 12/23/17 07:00 Dose: 2 unit Insulin Detemir (Levemir Vial) 35 units SQ BID@0700,2200 [facility] Last Admin: 12/23/17 07:27 Dose: 35 unit Levetiracetam (Keppra -) 1,000 mg PO BID [facility] Last Admin: 12/23/17 09:36 Dose: 1,000 mg Lidocaine HCl (Xylocaine 1%) 5 ml SQ ONCE ONE Stop: 12/23/17 10:27 Lisinopril (Prinivil) 20 mg PO DAILY [facility] Last Admin: 12/23/17 09:36 Dose: 20 mg Melatonin (Melatonin) 5 mg PO HS PRN PRN Reason: INSOMNIA Methylprednisolone Acetate (Depo-Medrol -) 80 mg IAR ONCE ONE Stop: 12/23/17 10:27 Oxycodone HCl (Roxicodone -) 5 mg PO Q6H PRN PRN Reason: PAIN LEVEL 6-10 Last Admin: 12/23/17 06:02 Dose: 5 mg Fluticasone/Salmeterol (Advair 100mcg/50mcg -) 1 puff IH BID ILYA Senna (Senna -) 2 tab PO HS PRN PRN Reason: CONSTIPATION Tiotropium [place] (Spiriva Respimat) 2 puff IH DAILY ILYA - Objective Vital Signs: Vital Signs Temperature 100.1 F H 12/23/17 09:15 Pulse Rate 101 H 12/23/17 09:15 Respiratory Rate 20 12/23/17 09:15 Blood Pressure 174/95 12/23/17 09:15 O2 Sat by Pulse Oximetry (%) 97 12/23/17 09:15 Constitutional: Yes: Mild Distress Cardiovascular: Yes: Regular Rate and Rhythm, S1, S2 Respiratory: Yes: CTA Bilaterally Gastrointestinal: Yes: Normal Bowel Sounds, Soft Extremities: Yes: Other (left arm shoulder tender to touch decreased ROM not able to lift up the arm) Edema: No Neurological: Yes: Alert, Oriented Labs: CBC, BMP 12/23/17 06:50 12/23/17 06:50 Problem List - Problems (1) Left shoulder pain Assessment/Plan: ortho consult appreicate lidocaine /steroid injection PT pain control shoulder xray shows left shoulder joint calcifications Code(s): M25.512 - PAIN IN LEFT SHOULDER (2) ASHD (arteriosclerotic heart disease) Assessment/Plan: asa will order lipid panel ? to check LDL level cardizem ,hydralazine Code(s): I25.10 - ATHSCL HEART DISEASE OF [place] CORONARY ARTERY W/O ANG PCTRS (3) COPD (chronic obstructive pulmonary disease) Assessment/Plan: bronchodilators Code(s): J44.9 - CHRONIC OBSTRUCTIVE PULMONARY DISEASE, UNSPECIFIED (4) Type 2 diabetes mellitus with diabetic neuropathy, unspecified Assessment/Plan: hold metofrmin levemir bgm slidiing scale hgba1c lipid panel Code(s): E11.40 - TYPE 2 DIABETES MELLITUS WITH DIABETIC NEUROPATHY, UNSP
[2017-12-23] MEDS ORDERED: methylPREDNISolone ACET (DEPO) 80 MG/1 ML VIAL IAR ONE (12:00)
[2017-12-23] MEDS ORDERED: INSULIN (NOVOLOG) ASPART 100 UNITS/ML 10ML VIAL ONE ×4 (12:08→20:37)
[2017-12-23 13:17] LABS: CHOLESTEROL 263 mg/dL (50-200); TRIGLYCERIDES 138 mg/dL (35-160)
[2017-12-23 13:20] LABS: HDL CHOLESTEROL 104 mg/dL (40-60)
[2017-12-23] MEDS ORDERED: MAGNESIUM SULF 50% (8.12 MEQ/2 ML-1 GM VIAL) IVPB ONE (13:39)
--- NOTE | 2017-12-23 15:41 | EKG ---
Test Reason : Blood Pressure : / mmHG Vent. Rate : 098 BPM Atrial Rate : 098 BPM P-R Int : 182 ms QRS Dur : 064 ms QT Int : 340 ms P-R-T Axes : 067 054 059 degrees QTc Int : 434 ms NORMAL SINUS RHYTHM POSSIBLE LEFT ATRIAL ENLARGEMENT SEPTAL INFARCT , AGE UNDETERMINED ABNORMAL ECG WHEN COMPARED WITH ECG OF 20-DEC-2017 16:04, SEPTAL INFARCT IS NOW PRESENT Confirmed by AMARILIS WILLIS, YAMILE ([id number]) on 12/23/2017 3:40:26 PM Referred By: Confirmed By:YAMILE OLMOS MD
[2017-12-23] MEDS ORDERED: GABAPENTIN 100 MG CAPSULE (FP) ONE (15:56)
[2017-12-23] MEDS ORDERED: MAGNESIUM 1GM/D5W - 1 GM/100 ML IVPB IVPB ONE (15:56)
[2017-12-23] MEDS ORDERED: ATORVASTATIN CA 40 MG TABLET (FP) PO SCH (22:00)
[2017-12-24] MEDS: INSULIN SLIDING SCALE (NOVOLOG) 1 VIAL SQ SCH ×2 (06:06→11:16)
[2017-12-24] MEDS: GABAPENTIN 300 MG CAPSULE (FP) PO SCH (06:12)
[2017-12-24] MEDS: oxyCODONE HCL 5 MG TABLET PO PRN (06:14)
[2017-12-24 06:32] VITALS: TEMP 98.1
[2017-12-24] MEDS: INSULIN (LEVEMIR) 100 UNITS/ML UNITS SQ SCH (06:56)
[2017-12-24] MEDS: ALBUTEROL SO4 2.5/IPRATROPIUM 0.5 INH SOL 3 ML VIAL.NEB. NEB SCH ×2 (07:35→11:44)
[2017-12-24 09:00] VITALS: BP 118/70; PULSE 80
[2017-12-24] MEDS ORDERED: PT OWN MED DRAWER 7, Y5N ONE (10:24)
[2017-12-24] MEDS: ASCORBIC ACID 500 MG TABLET (FP) PO SCH (10:58)
[2017-12-24] MEDS: DULoxetine HCL 30 MG CAPSULE.DR (FP) PO SCH (10:58)
[2017-12-24] MEDS: cloNIDine HCL 0.1 MG TABLET PO SCH (10:58)
[2017-12-24] MEDS: LISINOPRIL 20 MG TABLET (FP) PO SCH (10:58)
[2017-12-24] MEDS: ASPIRIN COATED 81 MG TABLET.EC PO SCH (10:59)
[2017-12-24] MEDS: hydrALAZINE HCL 25 MG TABLET (FP) PO SCH (10:59)
[2017-12-24] MEDS: levETIRAcetam 500 MG TABLET (FP) PO SCH (11:18)
[2017-12-24] MEDS: TIOTROPIUM BROMIDE 2.5 MCG (SPIRIVA) RESPIMAT INHALER IH SCH (11:18)
[2017-12-24] MEDS: FLUTICASONE/SALMETEROL 100 MCG/50 MCG DISKUS IH SCH (11:18)
--- NOTE | 2017-12-24 12:20 | PN ---
Progress Note (short form) - Note Progress Note: Ortho Pt seen and examined- c/o left shoulder pain Selected Entries 12/24/17 06:00 Temperature 98.1 F Pulse Rate 82 Respiratory 19 Rate Blood Pressure 106/79 + ttp ,decr rom, minimal amount of active ROM nvi a/p- left shoulder calcific tendinosis consent obtained, time out performed, under sterile technique left subacromial space was injected with lidocaine/depomedrol, injection was tolerated well will t [place] 3-4 days to take full effect ice left shoulder 15 min q 3-4 hours rom exercises d/w Dr. Gonzalez
--- NOTE | 2017-12-24 12:37 | DS ---
Physical Examination Vital Signs: Vital Signs Temperature 98.1 F 12/24/17 06:00 Pulse Rate 80 12/24/17 08:59 Respiratory Rate 18 12/24/17 08:59 Blood Pressure 118/70 12/24/17 08:59 O2 Sat by Pulse Oximetry (%) 98 12/24/17 05:22 Constitutional: Yes: Calm Cardiovascular: Yes: Regular Rate and Rhythm, S1, S2 Respiratory: Yes: CTA Bilaterally Gastrointestinal: Yes: Normal Bowel Sounds, Soft Edema: No Neurological: Yes: Alert, Oriented Labs: CBC, BMP 12/23/17 06:50 12/23/17 06:50 Discharge Summary Reason For Visit: CHEST PAIN Current Active Problems Chest pain (Acute) Left shoulder pain (Acute) Hospital Course: CHIEF COMPLAINT: left shoulder pain/chest pain/sob PCP: Miriam HISTORY OF PRESENT ILLNESS: This is a 57 year old female with a past medical history significant for CAD, CHF, HTN, HLD, COPD, DM who presented to the ED with severe pain to her left shoulder since last night. No obvious injury. Pain began when she was doing dishes. She also reports associated SOB and Chest pain. She was seen here in this ED 2 days ago for pleuritic CP, cough and SOB. She was treated for COPD exacerbation and released. She did not take her steroids that were prescribed. She did receive one dose of prednisone 60mg po here in the ED. ER course was notable for: (1) troponin neg x 1 (2) ECG without changes (3) shoulder xray with no obvious fracture or dislocation Recent Travel: pt denies PAST MEDICAL HISTORY: HTN, HLD, CHF, CAD, COPD, DM, HCV, renal stones, bipolar disorder PAST SURGICAL HISTORY: Cardiac stent lower back sx 2013 appendectomy, age 11 cholecystectomy hysterectomy tonsillectomy Social History: Smokinppd Alcohol: pt denies Drugs: former hospital course: patient seen by ortho_ left shoulder calcific tendinosis got medrol and lidocaine injection xray shoulder done - left shoulder joint calcification now ready to go home Condition: Improved - Instructions Diet, Activity, Other Instructions: follow up with dr mcarthur in two weeks Referrals: Rc Pineda MD [Primary Care Provider] - Disposition: HOME - Home Medications Comprehensive Discharge Medication List: Ambulatory Orders Tiotropium [place] [Spiriva] 18 mcg IH DAILY 12/21/14 Ascorbic Acid [Vitamin C -] 500 mg PO BID #60 tablet 02/15/17 Salmeterol/Fluticasone [Advair 100Mcg/50Mcg -] 1 puff IH BID #1 inhaler metFORMIN HCL [Glucophage -] 500 mg PO BID@0700,1630 #60 tablet 02/15/17 Aspirin Coated [Ecotrin -] 81 mg PO DAILY #30 tablet.ec 06/03/17 Diltiazem Cd [Cardizem Cd -] 120 mg PO DAILY #30 cap.cd.24h 06/03/17 Duloxetine HCl [Cymbalta -] 60 mg PO DAILY #30 capsule.dr 06/03/17 Lisinopril [Prinivil] 20 mg PO DAILY #30 tablet 06/03/17 Zolpidem Tartrate [Ambien] 10 mg PO HS PRN tablet MDD 1 06/03/17 cloNIDine HCL [Catapres -] 0.1 mg PO BID #60 tablet 06/03/17 levETIRAcetam [Keppra -] 1,000 mg PO BID #60 tablet 06/03/17 Albuterol 0.083% Nebulizer Kathleen [Ventolin 0.083% Nebulizer Soln -] 1 neb NEB Q4H PRN #20 vial 12/20/17 Albuterol Sulfate Inhaler - [Ventolin Hfa Inhaler -] 1 - 2 inh PO Q4H PRN #1 inhaler 12/20/17 Docusate Sodium [Colace -] 300 mg PO HS PRN 12/20/17 Gabapentin [Neurontin -] 300 mg PO TID PRN 12/20/17 Sennosides [Senna -] 2 tab PO HS PRN 12/20/17 Insulin Glargine,Hum.rec.anlog [Lantus] 35 unit SQ BID 12/22/17 hydrALAZINE HCL [Apresoline -] 25 mg PO BID 12/22/17 oxyCODONE HCL [Roxicodone -] 5 mg PO Q6H PRN MDD 4 12/22/17
== END 2017-12-24 13:20 | disposition home or self-care (01) ==
LOC: JER 12:13 → JERBED 18:38 → UNDOADMOB 19:44 → JERBED 19:44 → J4W 12-23 18:35
PROVIDERS: ADMIT Internal Medicine; ATTEND Family Medicine
PROC: 3E033GC Introduction of Other Therapeutic Substance into Peripheral Vein, Percutaneous Approach (ICD-10-PCS; principal; 2017-12-22)
PROC: 3E013VG Introduction of Insulin into Subcutaneous Tissue, Percutaneous Approach (ICD-10-PCS; 2017-12-22)
PROC: 3E0F7GC Introduction of Other Therapeutic Substance into Respiratory Tract, Via Natural or Artificial Opening (ICD-10-PCS; 2017-12-22)
DX: R07.9 Chest pain, unspecified (principal); M75.32 Calcific tendinitis of left shoulder; M25.512 Pain in left shoulder; I11.0 Hypertensive heart disease with heart failure; E78.5 Hyperlipidemia, unspecified; E11.40 Type 2 diabetes mellitus with diabetic neuropathy, unspecified; I50.9 Heart failure, unspecified; J44.1 Chronic obstructive pulmonary disease with (acute) exacerbation; J45.909 Unspecified asthma, uncomplicated; B18.2 Chronic viral hepatitis C; I25.10 Atherosclerotic heart disease of native coronary artery without angina pectoris; K74.60 Unspecified cirrhosis of liver; F17.210 Nicotine dependence, cigarettes, uncomplicated; F31.9 Bipolar disorder, unspecified; Z79.82 Long term (current) use of aspirin; Z79.84 Long term (current) use of oral hypoglycemic drugs; Z79.4 Long term (current) use of insulin; Z95.5 Presence of coronary angioplasty implant and graft
CPT/HCPCS: 36415; 71045-TC-FY; 73030-TC-LT-FY; 80048; 80053; 80061; 82550; 82962; 83036; 83721; 83735; 84100; 84484; 85025; 93005; 93010; 94640; 96372; 96374; 97116-GP; 97162-GP; 99283-25; G0378; J0735; J7620

== ENCOUNTER 2018-01-25 14:05 | Emergency (ER) | payer OTHER ==
[2018-01-25 14:42] VITALS: BMI 35.6
--- NOTE | 2018-01-25 14:42 | PDOC ---
Rapid Medical Evaluation Time Seen by Provider: 01/25/18 14:38 Medical Evaluation: Allergies Allergy/AdvReac Type Severity Reaction Status Date / Time No Known Allergies Allergy Verified 01/25/18 14:38 01/25/18 14:38 I have performed a brief in-person evaluation of this patient. The patient presents with a chief complaint of: coughing x 1 weeks, sent by Dr. Pineda for admission due to copd exacerbation. Reports productive coughing with greenish phlegm, fever, chills and bipedal edema. Pertinent physical exam findings are: NAD + expiratory wheezing bilaterally heart s1s2 b-pedal pitting edema with bruising on right lower leg I have ordered the following: labs, xray The patient will proceed to the ED for further evaluation. Discharge Disposition - Referrals Referrals: Rc Pineda MD [Primary Care Provider] - - Patient Instructions - Post Discharge Activity
--- NOTE | 2018-01-25 15:13 | PDOC ---
Attending Attestation - Resident Resident Name: AndiShellie - ED Attending Attestation I have performed the following: I have examined & evaluated the patient, The case was reviewed & discussed with the resident, I agree w/resident's findings & plan, Exceptions are as noted - HPI HPI: 01/25/18 15:31 Patient is a 57 year old female with a significant past medical history of CAD, CHF, HTN, HLD, COPD, DM who presents to the ED with complaints of shortness of breath that began just prior to arrival. Patient reports experiencing shortness of breath as well as associated symptoms of bilateral leg swelling, dysuria, productive cough with green sputum, sharp abdominal pain and elevated fever at 101.2, prompting her to come into the ED for further evaluation. She reports coming into the ED last month for sharp left sided back pain, and was found to have a kidney stone that she states is currently still there. Denies chest pain. Denies nausea, vomiting. Denies nausea, vomiting. Denies contact with sick individuals out of state travelling. Denies hematuria. Denies diarrhea, constipation. Denies any other symptoms. Allergies: None Social history: Current smoker (20 cigarettes per day). No alcohol. No illicit drugs. Surgical history: Cardiac stent, lower back sx 2013, appendectomy, age 11, cholecystectomy, hysterectomy, tonsillectomy PMD: Dr. Pineda - Physicial Exam PE: GENERAL: The patient is awake, alert, and fully oriented, Nontoxic - in no acute distress. HEAD: Normocephalic, atraumatic. EYES: extraocular movements intact, sclera anicteric, conjunctiva clear. ENT: Normal voice, Moist mucous membranes. NECK: Normal range of motion, supple LUNGS: expiroatry wheezing, mild tachpnea HEART: Regular rate and rhythm, normal S1 and S2 without murmur, rub or gallop. ABDOMEN: Soft, nontender, EXTREMITIES: Normal range of motion, bl LE edema, pitting NEUROLOGICAL: No facial assymetry, Normal speech, PSYCH: Normal mood, normal affect. SKIN: Warm, Dry, normal turgor, - Medical Decision Making 01/25/18 17:32 ddx copd exacerbation, pna, evy, chf, viral syndrome, will ck labs, cxr, ekg will give nebs, steroids 01/25/18 17:51 pt feeling improved will dc the pt with pmd fu return precautions were discussed Heart Score/ECG Review - ECG Impressions Comment:: 01/25/18 17:51 Twelve-lead EKG was performed and reviewed by me. There is normal sinus rhythm with a normal rate. Rate of 86 The axis is normal. The intervals are normal. There is normal R wave progression There are no ST or T wave abnormalities.
--- NOTE | 2018-01-25 15:22 | PDOC ---
History of Present Illness - General Chief Complaint: Respiratory Stated Complaint: Respiratory Time Seen by Provider: 01/25/18 14:38 - History of Present Illness Initial Comments: 01/25/18 15:21 57 year old woman with history of T2DM, CHF, COPD, HCV, CAD s/p stent (ASA 81) who presents with 1 week of cough productive of yellow/green phlegm, fevers w/ Tmax 101F, shortness of breath and bilateral swelling in the legs. 01/25/18 15:24 Past History - Past Medical History Allergies/Adverse Reactions: Allergies Allergy/AdvReac Type Severity Reaction Status Date / Time No Known Allergies Allergy Verified 01/25/18 14:38 Home Medications: Ambulatory Orders Tiotropium [place] [Spiriva] 18 mcg IH DAILY 12/21/14 Ascorbic Acid [Vitamin C -] 500 mg PO BID #60 tablet 02/15/17 Salmeterol/Fluticasone [Advair 100Mcg/50Mcg -] 1 puff IH BID #1 inhaler metFORMIN HCL [Glucophage -] 500 mg PO BID@0700,1630 #60 tablet 02/15/17 Aspirin Coated [Ecotrin -] 81 mg PO DAILY #30 tablet.ec 06/03/17 Diltiazem Cd [Cardizem Cd -] 120 mg PO DAILY #30 cap.cd.24h 06/03/17 Duloxetine HCl [Cymbalta -] 60 mg PO DAILY #30 capsule. 06/03/17 Lisinopril [Prinivil] 20 mg PO DAILY #30 tablet 06/03/17 cloNIDine HCL [Catapres -] 0.1 mg PO BID #60 tablet 06/03/17 levETIRAcetam [Keppra -] 1,000 mg PO BID #60 tablet 06/03/17 Albuterol 0.083% Nebulizer Kathleen [Ventolin 0.083% Nebulizer Soln -] 1 neb NEB Q4H PRN #20 vial 12/20/17 Albuterol Sulfate Inhaler - [Ventolin Hfa Inhaler -] 1 - 2 inh PO Q4H PRN #1 inhaler 12/20/17 Docusate Sodium [Colace -] 300 mg PO HS PRN 12/20/17 Gabapentin [Neurontin -] 300 mg PO TID PRN 12/20/17 Sennosides [Senna -] 2 tab PO HS PRN 12/20/17 Insulin Glargine,Hum.rec.anlog [Lantus] 35 unit SQ BID 12/22/17 hydrALAZINE HCL [Apresoline -] 25 mg PO BID 12/22/17 oxyCODONE HCL [Roxicodone -] 5 mg PO Q6H PRN #14 tablet MDD 4 12/24/17 Azithromycin 250 mg PO DAILY #6 tablet 01/25/18 Prednisone [Deltasone] 40 mg PO BID #8 tablet 01/25/18 Anemia: No Asthma: Yes Cancer: No Cardiac Disorders: Yes (Stent X 1) CVA: No COPD: Yes CHF: Yes DVT: No Dementia: No Diabetes: Yes GI Disorders: No Disorders: No HTN: Yes Hypercholesterolemia: Yes Kidney Stones: Yes Liver Disease: Yes (Cirrhosis, Hepatitis C) Psychiatric Problems: Yes (bipolar) Seizures: Yes (Last episode 03/2013) Thyroid Disease: Yes - Surgical History Abdominal Surgery: No Appendectomy: Yes (age 11) Cardiac Surgery: Yes (Stent X 1) Cholecystectomy: Yes Lung Surgery: No Neurologic Surgery: No Orthopedic Surgery: Yes (Lower back 02/2013) - Family Disease History Family Disease History: Diabetes: Brother, Sister, Heart Disease: Brother, Sister - Immunization History Td Vaccination: Yes Immunization Up to Date: Yes - Suicide/Smoking/Psychosocial Hx Smoking Status: Yes Smoking History: Current every day smoker Have you smoked in the past 12 months: Yes Number of Cigarettes Smoked Daily: 20 Information on smoking cessation initiated: Yes 'Breaking Loose' booklet given: 01/25/18 Hx Alcohol Use: No Drug/Substance Use Hx: No Substance Use Type: Opiates Hx Substance Use Treatment: Yes *Physical Exam - Vital Signs Last Vital Signs Temp Pulse Resp BP Pulse Ox 98.8 F 105 H 16 123/98 96 01/25/18 14:38 01/25/18 14:38 01/25/18 14:38 01/25/18 14:38 01/25/18 14:38 ED Treatment Course - LABORATORY CBC & Chemistry Diagram: 01/25/18 15:15 01/25/18 15:15 Medical Decision Making - Medical Decision Making 01/25/18 16:41 BNP: 132 CBC unremarkable *DC/Admit/Observation/Transfer Diagnosis at time of Disposition: COPD exacerbation, Congestive heart failure - Discharge Dispostion Disposition: HOME Condition at time of disposition: Stable Decision to Admit order: No - Prescriptions Prescriptions: Azithromycin 250 mg PO DAILY #6 tablet Prednisone [Deltasone] 40 mg PO BID #8 tablet - Referrals Referrals: Rc Pineda MD [Primary Care Provider] - - Patient Instructions Printed Discharge Instructions: DI for Heart Failure, DI for Chronic Obstructive Pulmonary Disease Additional Instructions: You were seen in the ED for complaints of shortness of breath and cough. In the ED you were evaluated with labwork and imaging. Your results were showed some exacerbation of CHF There does not appear to be an acute need for immediate hospitalization. You are advised to follow up with your primary care physician within 1 week. You were given a prescription for steroids and antibiotics and are advised to take medications as directed. Return to the ED immediately if you experience worsening shortness of breath, chest pain, worsening swelling in the legs, fevers or worsening cough. - Post Discharge Activity
[2018-01-25] MEDS ORDERED: ALBUTEROL SO4 2.5/IPRATROPIUM 0.5 INH SOL 3 ML VIAL.NEB. NEB ONE ×4 (15:35→17:33)
[2018-01-25 15:55] LABS: INR 0.92 (0.83-1.09); PROTHROMBIN TIME (PATIENT) 10.8 SEC (9.7-13.0)
[2018-01-25 15:58] LABS: ACTIVATED PTT 30.7 SECONDS (25.2-36.5)
[2018-01-25 16:04] LABS: ALBUMIN 2.7 g/dl (3.4-5.0); ALK PHOS 139 U/L (45-117); ANION GAP 4 MMOL/L (8-16); BILIRUBIN,TOTAL 0.3 mg/dL (0.2-1); BLOOD UREA NITROGEN 17 mg/dL (7-18); CALCIUM 8.6 mg/dL (8.5-10.1); CHLORIDE 98 mmol/L (98-107); CO2 34 mmol/L (21-32); CREATININE 0.5 mg/dL (0.55-1.3); GLUCOSE,RANDOM 232 mg/dL (74-106); N-TERMINAL BNP 132.5 pg/ml (5-125); POTASSIUM 4.3 mmol/L (3.5-5.1); SGOT/AST 41 U/L (15-37); SGPT/ALT 59 U/L (13-61); SODIUM 137 mmol/L (136-145); TOT PROT 7.4 g/dl (6.4-8.2)
[2018-01-25 16:06] LABS: BASO % 0.8 % (0-2.0); EOS % 2.5 % (0-4.5); HEMATOCRIT 42.2 % (32.4-45.2); HEMOGLOBIN 13.9 GM/dL (10.7-15.3); LYMPH % 29.5 % (8-40); MCH 29.9 pg (25.7-33.7); MCHC 32.9 g/dl (32.0-36.0); MEAN CELL VOLUME 90.9 fl (80-96); MONO % 7.6 % (3.8-10.2); NEUT % 59.6 % (42.8-82.8); PLATELET COUNT 298 K/MM3 (134-434); RBC 4.64 M/mm3 (3.60-5.2); RDW 13.7 % (11.6-15.6); WHITE BLOOD COUNT 9.9 K/mm3 (4.0-10.0)
[2018-01-25] MEDS ORDERED: predniSONE 20 MG TABLET (UD) PO ONE (17:05)
[2018-01-25] MEDS ORDERED: FUROSEMIDE 40 MG/4 ML INJECTABLE VIAL IVPUSH ONE ×2 (17:06→17:09)
[2018-01-25] MEDS ORDERED: FUROSEMIDE 40 MG/4 ML INJECTABLE VIAL ONE (17:33)
[2018-01-25] MEDS ORDERED: predniSONE 20 MG TABLET (UD) ONE (17:33)
[2018-01-25 19:26] LABS: URINE APPEARANCE CLEAR; URINE BILIRUBIN NEGATIVE (<2.0 mg/dL); URINE COLOR COLORLESS; URINE GLUCOSE (UA) NEGATIVE (NEGATIVE); URINE KETONE NEGATIVE (NEGATIVE); URINE LEUK ESTERASE TRACE (NEGATIVE); URINE NITRITE NEGATIVE (NEGATIVE); URINE PROTEIN NEGATIVE (NEGATIVE); URINE UROBILINOGEN NEGATIVE mg/dL (0.2-1.0)
[2018-01-25 19:38] LABS: EPI CELLS RARE /HPF (FEW)
[2018-01-25 20:01] VITALS: BP 126/71; PULSE 82; TEMP 97.9
[2018-01-25 20:09] LABS: URINE BACTERIA RARE /hpf (NONE SEEN); URINE HYALINE CAST 1 /lpf
--- NOTE | 2018-01-26 10:40 | EKG ---
Test Reason : Blood Pressure : / mmHG Vent. Rate : 086 BPM Atrial Rate : 086 BPM P-R Int : 186 ms QRS Dur : 078 ms QT Int : 386 ms P-R-T Axes : 061 047 041 degrees QTc Int : 461 ms NORMAL SINUS RHYTHM POSSIBLE LEFT ATRIAL ENLARGEMENT BORDERLINE ECG WHEN COMPARED WITH ECG OF 22-DEC-2017 12:41, NO SIGNIFICANT CHANGE WAS FOUND Confirmed by NOE WILLIS, SCAR ([id number]) on 01/26/2018 10:39:53 AM Referred By: Confirmed By:SCAR LIU MD
== END 2018-01-25 19:55 | disposition home or self-care (01) ==
LOC: JER 14:05
PROC: 3E033GC Introduction of Other Therapeutic Substance into Peripheral Vein, Percutaneous Approach (ICD-10-PCS; principal; 2018-01-25)
PROC: 3E0F7GC Introduction of Other Therapeutic Substance into Respiratory Tract, Via Natural or Artificial Opening (ICD-10-PCS; 2018-01-25)
PROC: 3E0F7GC Introduction of Other Therapeutic Substance into Respiratory Tract, Via Natural or Artificial Opening (ICD-10-PCS; 2018-01-25)
DX: J44.1 Chronic obstructive pulmonary disease with (acute) exacerbation (principal); I50.9 Heart failure, unspecified; I25.10 Atherosclerotic heart disease of native coronary artery without angina pectoris; I11.0 Hypertensive heart disease with heart failure; F17.210 Nicotine dependence, cigarettes, uncomplicated; Z95.5 Presence of coronary angioplasty implant and graft; I10 Essential (primary) hypertension; Z79.4 Long term (current) use of insulin; E78.00 Pure hypercholesterolemia, unspecified; Z79.82 Long term (current) use of aspirin; B18.2 Chronic viral hepatitis C; F31.9 Bipolar disorder, unspecified; K74.60 Unspecified cirrhosis of liver
CPT/HCPCS: 36415; 71045-TC-FY; 80053; 81003; 81015; 83880; 85025; 85610; 85730; 87086; 87186; 93005; 93010; 94640; 96374; 99283-25; J7620

== ENCOUNTER 2018-02-03 16:43 | Inpatient (IN) | payer OTHER ==
--- NOTE | 2018-02-03 16:51 | PDOC ---
Rapid Medical Evaluation Chief Complaint: Respiratory Time Seen by Provider: 02/03/18 16:47 Medical Evaluation: Allergies Allergy/AdvReac Type Severity Reaction Status Date / Time No Known Allergies Allergy Verified 01/25/18 14:38 02/03/18 16:49 I have performed a brief in person evaluation of this patient. The patient present with a CC of: SOB, Cough, Pedal Edema, Diarrhea Pt states she has a hx of CHF and was recently evaluated and states she has SOB , pedal edema, product cough and diarrhea x 1 week Pertinent PE findings: Lungs Mild Expiratory Wheezing Heart RRR Abd: Soft, non distended. MS: Moves all extremities. Pt has +1 pitting edema bilaterally to mid tibia. Psych: Appropriate affect I have ordered the following: Respiratory Protocol The patient will proceed to the ED for further evaluation: Discharge Disposition - Diagnosis CHF (congestive heart failure) - Referrals - Patient Instructions - Post Discharge Activity
--- NOTE | 2018-02-03 17:21 | PDOC ---
History of Present Illness - General Chief Complaint: Respiratory Stated Complaint: DIARRHEA/COUGH Time Seen by Provider: 02/03/18 16:47 History Source: Patient - History of Present Illness Initial Comments: 02/05/18 14:52 The patient is a 57 year old female with a PMH of CAD (s/p stents), CHF, HTN, HLD, COPD (on home O2) presents with 1 week h/o shortness of breath at rest and on exertion. Endorses associated non productive cough, wheezing denies CP, orthopnea, leg swelling, fevers/chills. Evaluated by PMD, Dr. Pineda earlier this week and started on abx and steroid but symptoms persisted prompting her visit to our ED. 10 point ROS negative including no abdominal pain, nausea/vomiting, diarrhea/ constipation, numbness, tingling however positive for dysuria. NKDA Surgical: none reported PMD: Dr. Pineda As per EMR patient was last evaluated in our ED 01/25/18 for fevers, B/L LE edema and productive cough. Patient treated for presumed CHF exacerbation and discharged home. Past History - Past Medical History Allergies/Adverse Reactions: Allergies Allergy/AdvReac Type Severity Reaction Status Date / Time No Known Allergies Allergy Verified 02/03/18 16:52 Home Medications: Ambulatory Orders Tiotropium [place] [Spiriva] 18 mcg IH DAILY 12/21/14 Ascorbic Acid [Vitamin C -] 500 mg PO BID #60 tablet 02/15/17 Salmeterol/Fluticasone [Advair 100Mcg/50Mcg -] 1 puff IH BID #1 inhaler metFORMIN HCL [Glucophage -] 500 mg PO BID@0700,1630 #60 tablet 02/15/17 Aspirin Coated [Ecotrin -] 81 mg PO DAILY #30 tablet.ec 06/03/17 Diltiazem Cd [Cardizem Cd -] 120 mg PO DAILY #30 cap.cd.24h 06/03/17 Duloxetine HCl [Cymbalta -] 60 mg PO DAILY #30 capsule. 06/03/17 Lisinopril [Prinivil] 20 mg PO DAILY #30 tablet 06/03/17 cloNIDine HCL [Catapres -] 0.1 mg PO BID #60 tablet 06/03/17 levETIRAcetam [Keppra -] 1,000 mg PO BID #60 tablet 06/03/17 Albuterol 0.083% Nebulizer Kathleen [Ventolin 0.083% Nebulizer Soln -] 1 neb NEB Q4H PRN #20 vial 12/20/17 Albuterol Sulfate Inhaler - [Ventolin Hfa Inhaler -] 1 - 2 inh PO Q4H PRN #1 inhaler 12/20/17 Docusate Sodium [Colace -] 300 mg PO HS PRN 12/20/17 Gabapentin [Neurontin -] 300 mg PO TID PRN 12/20/17 Sennosides [Senna -] 2 tab PO HS PRN 12/20/17 Insulin Glargine,Hum.rec.anlog [Lantus] 35 unit SQ BID 12/22/17 hydrALAZINE HCL [Apresoline -] 25 mg PO BID 12/22/17 oxyCODONE HCL [Roxicodone -] 5 mg PO Q6H PRN #14 tablet MDD 4 12/24/17 Azithromycin 250 mg PO DAILY #6 tablet 01/25/18 Prednisone [Deltasone] 40 mg PO BID #8 tablet 01/25/18 Cephalexin [Keflex] 500 mg PO BID #14 capsule 01/30/18 Anemia: No Asthma: Yes Cancer: No Cardiac Disorders: Yes (Stent X 1) CVA: No COPD: Yes CHF: Yes DVT: No Dementia: No Diabetes: Yes GI Disorders: No Disorders: No HTN: Yes Hypercholesterolemia: Yes Kidney Stones: Yes Liver Disease: Yes (Cirrhosis, Hepatitis C) Psychiatric Problems: Yes (bipolar) Seizures: Yes (Last episode 03/2013) Thyroid Disease: Yes - Surgical History Abdominal Surgery: No Appendectomy: Yes (age 11) Cardiac Surgery: Yes (Stent X 1) Cholecystectomy: Yes Lung Surgery: No Neurologic Surgery: No Orthopedic Surgery: Yes (Lower back 02/2013) - Family Disease History Family Disease History: Diabetes: Brother, Sister, Heart Disease: Brother, Sister - Immunization History Td Vaccination: Yes Immunization Up to Date: Yes - Suicide/Smoking/Psychosocial Hx Smoking Status: Yes Smoking History: Current every day smoker Have you smoked in the past 12 months: Yes Number of Cigarettes Smoked Daily: 20 Information on smoking cessation initiated: No 'Breaking Loose' booklet given: 01/25/18 Hx Alcohol Use: No Drug/Substance Use Hx: Yes Substance Use Type: Opiates Hx Substance Use Treatment: Yes Review of Systems - Review of Systems Constitutional: No: Chills, Fever Respiratory: Yes: Cough, Shortness of Breath. No: Hemoptysis Cardiac (ROS): No: Chest Pain, Palpitations ABD/GI: No: Constipated, Diarrhea, Nausea, Vomiting : Yes: Dysuria. No: Hematuria *Physical Exam - Vital Signs Last Vital Signs Temp Pulse Resp BP Pulse Ox 98.3 F 82 17 132/79 97 02/03/18 16:49 02/03/18 16:49 02/03/18 16:49 02/03/18 16:49 02/03/18 16:49 - Physical Exam General Appearance: Yes: Nourished, Appropriately Dressed, Other (On [place] O2 ( baseline)) HEENT: positive: Normal Voice, Hearing Grossly Normal Neck: positive: Trachea midline, Supple Respiratory/Chest: positive: Other (Scattered wheezes B/L, no crackles). negative: Labored Respiration, Rapid RR Cardiovascular: positive: S1, S2. negative: Edema, JVD Vascular Pulses: Dorsalis-Pedis (R): 2+, Doralis-Pedis (L): 2+ Gastrointestinal/Abdominal: positive: Soft. negative: Tender Extremity: positive: Normal Capillary Refill, Normal Inspection Integumentary: positive: Normal Color, Dry, Warm Neurologic: positive: Fully Oriented, Alert ED Treatment Course - LABORATORY CBC & Chemistry Diagram: 02/04/18 06:00 02/04/18 22:00 Medical Decision Making - Medical Decision Making 57 year old female with productive cough and dypsnea. VS unremarkable. Wheezing , no LE edema on PE. COPD exacerbation vs. CHF exacerbation. Will obtain basic labs, CXR, Troponin, BNP as well as UA/Urine culture - patient c/o dysuria. Troponin (-) x1 BNP 198 (132 on 01/25) Patient resting comfortably. Case d/w Dr. Chapa, as hospitalist service aware of patient, for further evaluation. CXR, ECG pending. Night team aware of patient. 1 *DC/Admit/Observation/Transfer Diagnosis at time of Disposition: CHF (congestive heart failure) - Referrals - Patient Instructions - Post Discharge Activity
[2018-02-03 17:37] LABS: BASO % 1.1 % (0-2.0); EOS % 3.2 % (0-4.5); HEMATOCRIT 41.5 % (32.4-45.2); HEMOGLOBIN 13.6 GM/dL (10.7-15.3); LYMPH % 35.7 % (8-40); MCH 30.2 pg (25.7-33.7); MCHC 32.8 g/dl (32.0-36.0); MEAN CELL VOLUME 92.1 fl (80-96); MEAN PLT VOLUME 8.5 fl (7.5-11.1); MONO % 7.5 % (3.8-10.2); NEUT % 52.5 % (42.8-82.8); PLATELET COUNT 378 K/MM3 (134-434); RDW 14.2 % (11.6-15.6); WHITE BLOOD COUNT 10.9 K/mm3 (4.0-10.0)
[2018-02-03] MEDS ORDERED: methylPREDNISolone NA SUCC 125 MG/2 ML VIAL IVPUSH ONE (17:54)
[2018-02-03] MEDS ORDERED: ALBUTEROL SO4 2.5/IPRATROPIUM 0.5 INH SOL 3 ML VIAL.NEB. NEB ONE ×4 (17:54→21:33)
[2018-02-03] MEDS ORDERED: VANCOMYCIN 1,000 MG in DEXTROSE 5%-WATER - 250 ML IVPB ONE (17:55)
[2018-02-03] MEDS ORDERED: PIPERACILLIN/TAZOB 4.5 GM 4.5 GM in DEXTROSE 5%-WATER 100 ML IVPB ONE (17:55)
[2018-02-03 17:57] LABS: INR 0.87 (0.83-1.09); PROTHROMBIN TIME (PATIENT) 10.2 SEC (9.7-13.0)
[2018-02-03] MEDS ORDERED: AZITHROMYCIN IVPB 500 MG in DEXTROSE 5%-WATER - 250 ML IVPB ONE (17:58)
[2018-02-03 18:08] LABS: ALK PHOS 165 U/L (45-117); ANION GAP 4 MMOL/L (8-16); BILIRUBIN,TOTAL 0.3 mg/dL (0.2-1); BLOOD UREA NITROGEN 23 mg/dL (7-18); CALCIUM 8.6 mg/dL (8.5-10.1); CHLORIDE 101 mmol/L (98-107); CO2 36 mmol/L (21-32); CREATININE 0.8 mg/dL (0.55-1.3); GLUCOSE,RANDOM 165 mg/dL (74-106); MAGNESIUM 2.1 mg/dL (1.8-2.4); N-TERMINAL BNP 198.9 pg/ml (5-125); POTASSIUM 4.5 mmol/L (3.5-5.1); SGOT/AST 27 U/L (15-37); SGPT/ALT 49 U/L (13-61); SODIUM 141 mmol/L (136-145); TOT PROT 7.8 g/dl (6.4-8.2)
--- NOTE | 2018-02-03 18:24 | PDOC ---
Attending Attestation - Resident Resident Name: Vernell Soliz - ED Attending Attestation I have performed the following: I have examined & evaluated the patient, The case was reviewed & discussed with the resident, I agree w/resident's findings & plan, Exceptions are as noted - HPI HPI: 02/03/18 18:30 57 year old female with past medical history of coronary disease, congestive heart failure, hypertension, hyperlipidemia, COPD, coronary disease with stents presents with difficulty breathing and cough. The patient had seen her doctor in his office. The patient was prescribed antibiotics and steroids which the patient reports taking. At that time, it was recommended that she be admitted to the hospital. However, she did not come. Now, she reports increasing wheezing and short of breath and chest tightness. No fevers or chills. Does report persistent cough. - Physicial Exam PE: 02/03/18 18:30 GENERAL: Awake, alert, and fully oriented HEAD: No signs of trauma EYES: [place], sclera anicteric, conjunctiva clear ENT: Auricles normal inspection, hearing grossly normal, nares patent, NECK: Normal ROM, supple LUNGS: +diffuse expiratory wheeze with prolonged expiration. Coughing frequently. HEART: Regular rate and rhythm, normal S1 and S2, no murmurs, rubs or gallops ABDOMEN: Soft, nontender, No guarding, no rebound. No masses EXTREMITIES: Normal range of motion, no edema. No clubbing or cyanosis. No cords, erythema, or tenderness NEUROLOGICAL: Cranial nerves II through XII grossly intact. Normal speech SKIN: Warm, Dry, normal turgor, no rashes or lesions noted. - Medical Decision Making 02/03/18 18:44 Vital Signs Temp Pulse Resp BP Pulse Ox 98.3 F 82 17 132/79 97 02/03/18 16:49 02/03/18 16:49 02/03/18 16:49 02/03/18 16:49 02/03/18 16:49 I suspect that the patient has COPD exacerbation. R/o PNA. Chest xray, labs. Duonebs, steroids, and antibiotics. LYNNE. Admit. 02/03/18 18:57 CBC, BMP 02/03/18 17:25 02/03/18 17:25 CMP Sodium 141 mmol/L (136-145) 02/03/18 17:25 Potassium 4.5 mmol/L (3.5-5.1) 02/03/18 17:25 Chloride 101 mmol/L (98-107) 02/03/18 17:25 Carbon Dioxide 36 mmol/L (21-32) H 02/03/18 17:25 Anion Gap 4 MMOL/L (8-16) L 02/03/18 17:25 BUN 23 mg/dL (7-18) H 02/03/18 17:25 Creatinine 0.8 mg/dL (0.55-1.3) 02/03/18 17:25 Creat Clearance w eGFR > 60 (>60) 02/03/18 17:25 Random Glucose 165 mg/dL (74-106) H 02/03/18 17:25 Calcium 8.6 mg/dL (8.5-10.1) 02/03/18 17:25 Magnesium 2.1 mg/dL (1.8-2.4) 02/03/18 17:25 Total Bilirubin 0.3 mg/dL (0.2-1) 02/03/18 17:25 AST 27 U/L (15-37) 02/03/18 17:25 ALT 49 U/L (13-61) 02/03/18 17:25 Alkaline Phosphatase 165 U/L (45-117) H 02/03/18 17:25 Creatine Kinase 97 IU/L (26-192) 02/03/18 17:25 Troponin I < 0.02 ng/ml (0.00-0.05) 02/03/18 17:25 B-Natriuretic Peptide 198.9 pg/ml (5-125) H 02/03/18 17:25 Total Protein 7.8 g/dl (6.4-8.2) 02/03/18 17:25 Albumin 3.0 g/dl (3.4-5.0) L 02/03/18 17:25 Heart Score/ECG Review #1 ECG reviewed & interpreted by me at: 17:35 02/03/18 18:25 NSR 77, no std/randall, TWI III, normal axis, normal intervals, QTC 445 msec
[2018-02-03] MEDS ORDERED: PIPERACILLIN/TAZOB 4.5 GM 4.5 GM/100 ML BAG IVPB ONE (18:54)
[2018-02-03] MEDS ORDERED: methylPREDNISolone NA SUCC 125 MG/2 ML VIAL ONE (18:54)
[2018-02-03] MEDS ORDERED: AZITHROMYCIN IVPB 500 MG/250 ML BAG IVPB ONE (19:56)
[2018-02-03] MEDS ORDERED: FUROSEMIDE 40 MG/4 ML INJECTABLE VIAL IVPUSH ONE (21:12)
[2018-02-03] MEDS ORDERED: SENNOSIDES 8.6MG TABLET (FP) PO PRN (21:13)
[2018-02-03] MEDS ORDERED: DOCUSATE SODIUM 100 MG CAPSULE (FP) PO PRN (21:13)
[2018-02-03] MEDS ORDERED: ALBUTEROL SO4 0.083% IH SOL 2.5 MG/3 ML VIAL.NEB. NEB PRN (21:13)
[2018-02-03] MEDS ORDERED: FUROSEMIDE 40 MG/4 ML INJECTABLE VIAL ONE (21:34)
--- NOTE | 2018-02-03 21:53 | HP ---
CHIEF COMPLAINT: sob, cough PCP: Miriam HISTORY OF PRESENT ILLNESS: This is 57 year old female with a significant past medical history of CAD, CHF, HTN, HLD, COPD, DM who presented to the ED with SOB and cough. She reports the cough is more frequent with increased more prolific sputum production. She is currently on antibiotics and prednisone taper. She is unsure what antibiotic she is on or what her dose of prednisone is. ER course was notable for: (1) WBC 10.9 (2) CXR pending Recent Travel: pt denies PAST MEDICAL HISTORY: HTN, HLD, CHF, CAD, COPD, DM, HCV, renal stones, bipolar disorder PAST SURGICAL HISTORY: Cardiac stent lower back sx 2013 appendectomy, age 11 cholecystectomy hysterectomy tonsillectomy Social History: Smokinppd Alcohol: pt denies Drugs: former Allergies No Known Allergies Allergy (Verified 02/03/18 16:52) HOME MEDICATIONS: 3 Medication Instructions Recorded Tiotropium [place] [Spiriva] 18 mcg IH DAILY 12/21/14 Ascorbic Acid [Vitamin C -] 500 mg PO BID #60 tablet 02/15/17 Salmeterol/Fluticasone [Advair 1 puff IH BID #1 inhaler 02/15/17 100Mcg/50Mcg -] metFORMIN HCL [Glucophage -] 500 mg PO BID@0700,1630 #60 tablet 02/15/17 Aspirin Coated [Ecotrin -] 81 mg PO DAILY #30 tablet.ec 06/03/17 Diltiazem Cd [Cardizem Cd -] 120 mg PO DAILY #30 cap.cd.24h 06/03/17 Duloxetine HCl [Cymbalta -] 60 mg PO DAILY #30 capsule.dr 06/03/17 Lisinopril [Prinivil] 20 mg PO DAILY #30 tablet 06/03/17 cloNIDine HCL [Catapres -] 0.1 mg PO BID #60 tablet 06/03/17 levETIRAcetam [Keppra -] 1,000 mg PO BID #60 tablet 06/03/17 Albuterol 0.083% Nebulizer Kathleen 1 neb NEB Q4H PRN #20 vial 12/20/17 [Ventolin 0.083% Nebulizer Soln -] Albuterol Sulfate Inhaler - 1 - 2 inh PO Q4H PRN #1 inhaler 12/20/17 [Ventolin Hfa Inhaler -] Docusate Sodium [Colace -] 300 mg PO HS PRN 12/20/17 Gabapentin [Neurontin -] 300 mg PO TID PRN 12/20/17 Sennosides [Senna -] 2 tab PO HS PRN 12/20/17 Insulin Glargine,Hum.rec.anlog 35 unit SQ BID 12/22/17 [Lantus] hydrALAZINE HCL [Apresoline -] 25 mg PO BID 12/22/17 oxyCODONE HCL [Roxicodone -] 5 mg PO Q6H PRN #14 tablet MDD 4 12/24/17 Azithromycin 250 mg PO DAILY #6 tablet 01/25/18 Prednisone [Deltasone] 40 mg PO BID #8 tablet 01/25/18 Cephalexin [Keflex] 500 mg PO BID #14 capsule 01/30/18 REVIEW OF SYSTEMS CONSTITUTIONAL: Absent: fever, chills, diaphoresis, generalized weakness, malaise, loss of appetite, weight change HEENT: Absent: rhinorrhea, nasal congestion, throat pain, throat swelling, difficulty swallowing, mouth swelling, ear pain, eye pain, visual changes CARDIOVASCULAR: Absent: chest pain, syncope, palpitations, irregular heart rate, lightheadedness , peripheral edema RESPIRATORY: Present: cough, shortness of breath Absent: stridor, hemoptysis GASTROINTESTINAL: Absent: abdominal pain, abdominal distension, nausea, vomiting, diarrhea, constipation, melena, hematochezia GENITOURINARY: Absent: dysuria, frequency, urgency, hesitancy, hematuria, flank pain, genital pain MUSCULOSKELETAL: Absent: myalgia, arthralgia, joint swelling, back pain, neck pain SKIN: Absent: rash, itching, pallor HEMATOLOGIC/IMMUNOLOGIC: Absent: easy bleeding, easy bruising, lymphadenopathy, frequent infections ENDOCRINE: Absent: unexplained weight gain, unexplained weight loss, heat intolerance, cold intolerance NEUROLOGIC: Absent: headache, focal weakness or paresthesias, dizziness, unsteady gait, seizure, mental status changes, bladder or bowel incontinence PSYCHIATRIC: Absent: anxiety, depression, suicidal or homicidal ideation, hallucinations. PHYSICAL EXAMINATION Vital Signs - 24 hr 3 02/03/18 02/03/18 16:49 17:30 Temperature 98.3 F Pulse Rate 82 Respiratory 17 Rate Blood Pressure 132/79 O2 Sat by Pulse 97 97 Oximetry (%) GENERAL: Awake, alert, and fully oriented, in no acute distress. HEAD: Normal with no signs of trauma. EYES: Pupils equal, round and reactive to light, extraocular movements intact, sclera anicteric, conjunctiva clear. No lid lag. EARS, NOSE, THROAT: Ears normal, nares patent, oropharynx clear without exudates. Moist mucous membranes. NECK: Normal range of motion, supple without lymphadenopathy, JVD, or masses. LUNGS: Breath sounds equal, + expiratory wheezes bilat upper, diminished bases, and no crackles. No accessory muscle use. HEART: Regular rate and rhythm, normal S1 and S2 without murmur, rub or gallop. ABDOMEN: Soft, nontender, not distended, normoactive bowel sounds, no guarding, no rebound, no masses. No hepatomegaly or splenomegaly. MUSCULOSKELETAL: Normal range of motion at all joints. No bony deformities or tenderness. No CVA tenderness. UPPER EXTREMITIES: 2+ pulses, warm, well-perfused. No cyanosis. No clubbing. No peripheral edema. LOWER EXTREMITIES: 2+ pulses, warm, well-perfused. No calf tenderness. 1+ peripheral edema B/L LE. NEUROLOGICAL: Cranial nerves II-XII intact. Normal speech. PSYCHIATRIC: Cooperative. Good eye contact. Appropriate mood and affect. SKIN: Warm, dry, normal turgor, no rashes or lesions noted, normal capillary refill. Laboratory Results - last 24 hr 3 02/03/18 02/03/18 02/03/18 02/03/18 17:25 17:25 17:25 18:35 WBC 10.9 H RBC 4.50 Hgb 13.6 Hct 41.5 MCV 92.1 MCH 30.2 MCHC 32.8 RDW 14.2 Plt Count 378 D MPV 8.5 Absolute Neuts (auto) 5.7 Neutrophils % 52.5 Lymphocytes % 35.7 D Monocytes % 7.5 Eosinophils % 3.2 Basophils % 1.1 Nucleated RBC % 0 PT with INR 10.20 INR 0.87 Sodium 141 Potassium 4.5 Chloride 101 Carbon Dioxide 36 H Anion Gap 4 L BUN 23 H Creatinine 0.8 Creat Clearance w eGFR > 60 Random Glucose 165 H Lactic Acid 1.1 Calcium 8.6 Magnesium 2.1 Total Bilirubin 0.3 AST 27 ALT 49 Alkaline Phosphatase 165 H Creatine Kinase 97 Troponin I < 0.02 B-Natriuretic Peptide 198.9 H Total Protein 7.8 Albumin 3.0 L ECG normal sinus rhythm vent rate 77, [id number] Inverted P waves lead aVL, V1, V2 No acute ST/T wave changes Radiology Reports chest xray pending ASSESSMENT/PLAN: 57yF with PMH HTN, HLD, CHF, CAD, COPD, DM, HCV, renal stones, bipolar disorder presented to the ED with cough and SOB. COPD exac - methylprednisolone 40mg q6h, taper as tolerated - duonebs qid - albuterol nebs prn - f/u cxr results - azithromycin po CHF - + peripheral edema, will give lasix 40mg now, daily dosing to depend on CXR results HTN/HLD - cont home meds DM - home lantus changed to formulary levemir - BGM AC/HS with novolog sliding scale. DVT PPX - heparin 5000uSC TID FEN - tolerating po - BMP in am - diabetic/low sodium diet as tolerated Dispo: Pt currently requires further observation for management of her emergent condition. Visit type - Emergency Visit Emergency Visit: Yes ED Registration Date: 02/03/18 Care time: The patient presented to the Emergency Department on the above date and was hospitalized for further evaluation of their emergent condition. - New Patient This patient is new to me today: Yes Date on this admission: 02/03/18 - Critical Care Critical Care patient: No
[2018-02-03] MEDS: INSULIN (LEVEMIR) 100 UNITS/ML UNITS SQ SCH (23:20)
[2018-02-03] MEDS: cloNIDine HCL 0.1 MG TABLET PO SCH (23:46)
[2018-02-03] MEDS: HEPARIN NA (PORCINE) 5,000 UNITS/ML 1ML VIAL SQ SCH (23:46)
[2018-02-03] MEDS: hydrALAZINE HCL 25 MG TABLET (FP) PO SCH (23:46)
[2018-02-03] MEDS: FLUTICASONE/SALMETEROL 100 MCG/50 MCG DISKUS IH SCH (23:46)
[2018-02-03] MEDS: levETIRAcetam 500 MG TABLET (FP) PO SCH (23:46)
[2018-02-03] MEDS ORDERED: hydrALAZINE HCL 25 MG TABLET (FP) ONE (23:47)
[2018-02-03] MEDS ORDERED: levETIRAcetam 500 MG TABLET (FP) PO ONE (23:48)
[2018-02-03] MEDS ORDERED: HEPARIN NA (PORCINE) 5,000 UNITS/ML 1ML VIAL ONE (23:48)
[2018-02-04] MEDS ORDERED: HEMOQUE CONTROL SOLUTION ONE (01:59)
[2018-02-04 02:13] LABS: URINE APPEARANCE SLCLOUDY; URINE BILIRUBIN NEGATIVE (<2.0 mg/dL); URINE COLOR LTYELLOW; URINE GLUCOSE (UA) NEGATIVE (NEGATIVE); URINE KETONE NEGATIVE (NEGATIVE); URINE LEUK ESTERASE 3+ (NEGATIVE); URINE NITRITE NEGATIVE (NEGATIVE); URINE PROTEIN 2+ (NEGATIVE); URINE UROBILINOGEN NEGATIVE mg/dL (0.2-1.0)
[2018-02-04] MEDS ORDERED: INSULIN (LEVEMIR) 100 UNITS/ML UNITS SQ ONE ×2 (02:19→07:03)
[2018-02-04 02:20] LABS: EPI CELLS RARE /HPF (FEW); URINE HYALINE CAST 13 /lpf; URINE MUCUS RARE
[2018-02-04] MEDS: methylPREDNISolone NA SUCC 40 MG/1 ML VIAL IVPUSH SCH ×4 (03:08→21:36)
[2018-02-04] MEDS ORDERED: methylPREDNISolone NA SUCC 40 MG/1 ML VIAL ONE (03:39)
[2018-02-04] MEDS: INSULIN SLIDING SCALE (NOVOLOG) 1 VIAL SQ SCH ×4 (06:39→21:38)
[2018-02-04] MEDS: HEPARIN NA (PORCINE) 5,000 UNITS/ML 1ML VIAL SQ SCH ×3 (06:39→21:36)
[2018-02-04] MEDS ORDERED: INSULIN (NOVOLOG) ASPART 100 UNITS/ML 10ML VIAL ONE ×2 (06:43→11:43)
[2018-02-04 06:50] LABS: BASO % 0.2 % (0-2.0); HEMATOCRIT 38.5 % (32.4-45.2); HEMOGLOBIN 12.6 GM/dL (10.7-15.3); LYMPH % 7.7 % (8-40); MCH 29.7 pg (25.7-33.7); MCHC 32.8 g/dl (32.0-36.0); MEAN CELL VOLUME 90.7 fl (80-96); MEAN PLT VOLUME 8.6 fl (7.5-11.1); MONO % 1.5 % (3.8-10.2); NEUT % 90.6 % (42.8-82.8); PLATELET COUNT 332 K/MM3 (134-434); RBC 4.25 M/mm3 (3.60-5.2); RDW 13.9 % (11.6-15.6); WHITE BLOOD COUNT 12.6 K/mm3 (4.0-10.0)
[2018-02-04] MEDS: INSULIN (LEVEMIR) 100 UNITS/ML UNITS SQ SCH ×2 (07:04→21:37)
[2018-02-04 07:54] LABS: ANION GAP 11 MMOL/L (8-16); BLOOD UREA NITROGEN 28 mg/dL (7-18); CALCIUM 8.3 mg/dL (8.5-10.1); CHLORIDE 100 mmol/L (98-107); CO2 30 mmol/L (21-32); CREATININE 0.7 mg/dL (0.55-1.3); GLUCOSE,RANDOM 234 mg/dL (74-106); PHOSPHOROUS 4.2 mg/dL (2.5-4.9); POTASSIUM 4.4 mmol/L (3.5-5.1); SODIUM 141 mmol/L (136-145)
[2018-02-04] MEDS: ALBUTEROL SO4 2.5/IPRATROPIUM 0.5 INH SOL 3 ML VIAL.NEB. NEB SCH ×2 (08:02→12:15)
[2018-02-04] MEDS ORDERED: ALBUTEROL SO4 2.5/IPRATROPIUM 0.5 INH SOL 3 ML VIAL.NEB. NEB ONE ×2 (08:08→11:45)
--- NOTE | 2018-02-04 09:37 | EKG ---
Test Reason : Blood Pressure : / mmHG Vent. Rate : 075 BPM Atrial Rate : 075 BPM P-R Int : 194 ms QRS Dur : 082 ms QT Int : 400 ms P-R-T Axes : 063 056 037 degrees QTc Int : 446 ms NORMAL SINUS RHYTHM POSSIBLE LEFT ATRIAL ENLARGEMENT WHEN COMPARED WITH ECG OF 25-JAN-2018 17:36, NO SIGNIFICANT CHANGE WAS FOUND Confirmed by BHARATHI HOYOS MD ([id number]) on 02/04/2018 9:37:30 AM Referred By: Confirmed By:BHARATHI HOYOS MD
[2018-02-04] MEDS: LISINOPRIL 20 MG TABLET (FP) PO SCH (10:00)
[2018-02-04] MEDS: DULoxetine HCL 30 MG CAPSULE.DR (FP) PO SCH (10:00)
[2018-02-04] MEDS: cloNIDine HCL 0.1 MG TABLET PO SCH ×2 (10:00→21:37)
[2018-02-04] MEDS: hydrALAZINE HCL 25 MG TABLET (FP) PO SCH ×2 (10:00→21:36)
[2018-02-04] MEDS: FLUTICASONE/SALMETEROL 100 MCG/50 MCG DISKUS IH SCH (10:00)
[2018-02-04] MEDS: levETIRAcetam 500 MG TABLET (FP) PO SCH ×2 (10:00→21:36)
[2018-02-04] MEDS: ASPIRIN COATED 81 MG TABLET.EC PO SCH (10:00)
[2018-02-04] MEDS ORDERED: TIOTROPIUM BROMIDE 2.5 MCG (SPIRIVA) RESPIMAT INHALER IH SCH (10:00)
--- NOTE | 2018-02-04 11:12 | PN ---
Progress Note, Physician Chief Complaint: SOB UTI History of Present Illness: No respiratory distress c/o dysuria UA +1 blood +3 leuks, hx of Ecoli UTI - Current Medication List Current Medications: Active Medications Albuterol Sulfate (Ventolin 0.083% Nebulizer Soln -) 1 amp NEB Q4H PRN PRN Reason: ASTHMA Albuterol/Ipratropium (Duoneb -) 1 amp NEB RQID [facility] Last Admin: 02/04/18 08:02 Dose: 1 amp Aspirin (Ecotrin -) 81 mg PO DAILY [facility] Last Admin: 02/04/18 10:00 Dose: 81 mg Clonidine (Catapres -) 0.1 mg PO BID [facility] Last Admin: 02/04/18 10:00 Dose: 0.1 mg Diltiazem HCl (Cardizem Cd -) 120 mg PO DAILY [facility] Last Admin: 02/04/18 10:00 Dose: 120 mg Docusate Sodium (Colace -) 300 mg PO HS PRN PRN Reason: CONSTIPATION Duloxetine HCl (Cymbalta -) 60 mg PO DAILY [facility] Last Admin: 02/04/18 10:00 Dose: 60 mg Gabapentin (Neurontin -) 300 mg PO TID PRN PRN Reason: PAIN Heparin Sodium (Porcine) (Heparin -) 5,000 unit SQ TID [facility] Last Admin: 02/04/18 06:39 Dose: 5,000 unit Hydralazine HCl (Apresoline -) 25 mg PO BID [facility] Last Admin: 02/04/18 10:00 Dose: 25 mg Ceftriaxone Sodium (Ceftriaxone 2 Gm-D5w Bag) 2 gm in 50 mls @ 100 mls/hr IVPB DAILY [facility]; Protocol Insulin Aspart (Novolog Vial Sliding Scale -) 1 vial SQ ACHS [facility]; Protocol Last Admin: 02/04/18 06:39 Dose: 4 units Insulin Detemir (Levemir Vial) 35 units SQ BID@0700,2200 [facility] Last Admin: 02/04/18 07:04 Dose: 35 unit Levetiracetam (Keppra -) 1,000 mg PO BID [facility] Last Admin: 02/04/18 10:00 Dose: 1,000 mg Lisinopril (Prinivil) 20 mg PO DAILY [facility] Last Admin: 02/04/18 10:00 Dose: 20 mg Methylprednisolone Sodium Succinate (Solu-Medrol -) 40 mg IVPUSH Q6H-IV [facility] Last Admin: 02/04/18 09:29 Dose: 40 mg Oxycodone HCl (Roxicodone -) 5 mg PO Q6H PRN PRN Reason: PAIN LEVEL 6-10 Phenazopyridine HCl (Pyridium -) 100 mg PO TID PRN PRN Reason: dysuria Fluticasone/Salmeterol (Advair 100mcg/50mcg -) 1 puff IH BID [facility] Last Admin: 02/04/18 10:00 Dose: 1 puff Senna (Senna -) 2 tab PO HS PRN PRN Reason: CONSTIPATION - Objective Vital Signs: Vital Signs Temperature 98.3 F 02/03/18 16:49 Pulse Rate 72 02/04/18 05:30 Respiratory Rate 18 02/04/18 05:30 Blood Pressure 128/80 02/04/18 05:30 O2 Sat by Pulse Oximetry (%) 93 L 02/04/18 05:30 Constitutional: Yes: Well Nourished, No Distress, Calm Cardiovascular: Yes: Regular Rate and Rhythm Respiratory: Yes: Regular Gastrointestinal: Yes: Normal Bowel Sounds, Soft Genitourinary: Yes: Polyuria Musculoskeletal: Yes: WNL Extremities: Yes: WNL Edema: No Peripheral Pulses WNL: Yes Neurological: Yes: Alert, Oriented Psychiatric: Yes: Alert, Oriented Labs: CBC, BMP 02/04/18 06:00 02/04/18 06:00 INR, PTT INR 0.87 (0.83-1.09) 02/03/18 17:25 Problem List - Problems (1) Congestive heart failure Assessment/Plan: -Cardiology consult -CXR shows congestive changes -Furosemide 40 mg IVP daily -Daily weights -Nasal O2 PRN to keep SpO2>90% -Low sodium diabetic diet Code(s): I50.9 - HEART FAILURE, UNSPECIFIED (2) COPD exacerbation Assessment/Plan: -Pulmonary consult -Solumedrol 40 Q6H IVP -Nasal O2 to keep SpO2>90% -Bronchodilators Code(s): J44.1 - CHRONIC OBSTRUCTIVE PULMONARY DISEASE W (ACUTE) EXACERBATION (3) Type 2 diabetes mellitus with other circulatory complications Assessment/Plan: -BGM AC HS -Diabetic low sodium diet -Insulin: levemir 35 units BID and novolog sliding scale -Endocrinology consult Code(s): E11.59 - TYPE 2 DIABETES MELLITUS WITH OTH CIRCULATORY COMPLICATIONS (4) UTI (urinary tract infection) Assessment/Plan: -UA +1 blood +3 leuks -UC pending -afebrile -WBC mildly elevated 2/2 to solumedrol -c/o dysuria -start ceftriaxone 2 gm daily -Pyridium 100 mg po TID PRN Code(s): N39.0 - URINARY TRACT INFECTION, SITE NOT SPECIFIED Assessment/Plan see problem list DVT prophylaxis Physical therapy-walks with cane
[2018-02-04] MEDS ORDERED: CEFTRIAXONE 2 GM/100 ML BAG IVPB ONE (11:45)
[2018-02-04] MEDS: CEFTRIAXONE 2 GM in DEXTROSE 5%-WATER 100 ML IVPB SCH (11:58)
--- NOTE | 2018-02-04 15:38 | PN ---
Teaching Attending Note Name of Resident: Robert Felix ATTENDING PHYSICIAN STATEMENT I saw and evaluated the patient. I reviewed the resident's note and discussed the case with the resident. I agree with the resident's findings and plan as documented. PULMONARY IMP COPD EXACERBATION ASHD S/P STENT DM CHF PULMONARY HTN TOBACCO ABUSE LIKELY OSAS PLAN IV STEROIDS INHALED BRONCHODILATORS O2 ABX DVT PROPHYLAXIS SLEEP SCREEN SMOKING CESSATION COUNSELED DR PERDUE Problem List - Problems (1) ASHD (arteriosclerotic heart disease) Code(s): I25.10 - ATHSCL HEART DISEASE OF [place] CORONARY ARTERY W/O ANG PCTRS (2) COPD exacerbation Code(s): J44.1 - CHRONIC OBSTRUCTIVE PULMONARY DISEASE W (ACUTE) EXACERBATION (3) IBS (irritable bowel syndrome) Code(s): K58.9 - IRRITABLE BOWEL SYNDROME WITHOUT DIARRHEA (4) Tobacco abuse Code(s): Z72.0 - TOBACCO USE (5) Tobacco abuse counseling Code(s): Z71.6 - TOBACCO ABUSE COUNSELING (6) Asthma Code(s): J45.909 - UNSPECIFIED ASTHMA, UNCOMPLICATED Qualifiers: Asthma severity: unspecified severity Asthma persistence: intermittent Asthma complication type: uncomplicated Qualified Code(s): J45.20 - Mild intermittent asthma, uncomplicated (7) Diabetes type 2, controlled Code(s): E11.9 - TYPE 2 DIABETES MELLITUS WITHOUT COMPLICATIONS (8) Hypothyroidism Code(s): E03.9 - HYPOTHYROIDISM, UNSPECIFIED Qualifiers: Hypothyroidism type: acquired Qualified Code(s): E03.9 - Hypothyroidism, unspecified
--- NOTE | 2018-02-04 16:46 | CONSULT ---
Consultation: REQUESTING PROVIDER: Terra CONSULT REQUEST: We have been asked to medically evaluate this patient for pulmonology evaluation for COPD Exacerbation. HISTORY OF PRESENT ILLNESS: 57 yo Female with PMH CAD, CHF, HTN, HLD, COPD, IDDM admitted with SOB, cough productive of greenish/yellow fluids, fevers, chills for 1-2 weeks. She claims that she has been coughing more and more throughout that time with worsening sputum production. She states that she is unable to lie flat at night and she requires a recliner to sleep. She also complains of chronic back pain which also makes it difficult to lie flat. REVIEW OF SYSTEMS: CONSTITUTIONAL: fever, chills Absent: , diaphoresis, generalized weakness, malaise, loss of appetite, weight change HEENT: Absent: rhinorrhea, nasal congestion, throat pain, throat swelling, difficulty swallowing, mouth swelling, ear pain, eye pain, visual changes CARDIOVASCULAR: Absent: chest pain, syncope, palpitations, irregular heart rate, lightheadedness , peripheral edema RESPIRATORY: cough, shortness of breath, dyspnea with exertion, orthopnea, wheezing, Absent: stridor, hemoptysis GASTROINTESTINAL: Absent: abdominal pain, abdominal distension, nausea, vomiting, diarrhea, constipation, melena, hematochezia GENITOURINARY: Absent: dysuria, frequency, urgency, hesitancy, hematuria, flank pain, genital pain MUSCULOSKELETAL: back pain Absent: myalgia, arthralgia, joint swelling, neck pain SKIN: Absent: rash, itching, pallor HEMATOLOGIC/IMMUNOLOGIC: Absent: easy bleeding, easy bruising, lymphadenopathy, frequent infections ENDOCRINE: Absent: unexplained weight gain, unexplained weight loss, heat intolerance, cold intolerance NEUROLOGIC: Absent: headache, focal weakness or paresthesias, dizziness, unsteady gait, seizure, mental status changes, bladder or bowel incontinence PSYCHIATRIC: Absent: anxiety, depression, suicidal or homicidal ideation, hallucinations. PHYSICAL EXAMINATION Vital Signs - 24 hr 02/03/18 02/03/18 02/03/18 16:49 17:30 19:54 Temperature 98.3 F Pulse Rate 82 Pulse Rate [ Left Radial] Respiratory 17 17 Rate Blood Pressure 132/79 Blood Pressure [Left Arm] O2 Sat by Pulse 97 97 97 Oximetry (%) 02/04/18 02/04/18 02/04/18 01:13 05:30 11:35 Temperature 98.3 F Pulse Rate Pulse Rate [ 72 81 Left Radial] Respiratory 18 18 20 Rate Blood Pressure Blood Pressure 109/69 128/80 133/76 [Left Arm] O2 Sat by Pulse 94 L 93 L 94 L Oximetry (%) 02/04/18 15:14 Temperature 98.2 F Pulse Rate Pulse Rate [ 65 Left Radial] Respiratory 18 Rate Blood Pressure Blood Pressure 139/78 [Left Arm] O2 Sat by Pulse 99 Oximetry (%) GENERAL: A&O, obese, no acute distress HEAD: Normocephalic, atraumatic. EYES: PERRL, no scleral icterus EARS, NOSE, THROAT: oropharynx clear without exudates. Moist mucous membranes. NECK: supple without lymphadenopathy LUNGS: Wheezes diffusely, course breath sounds throughout HEART: Regular rate and rhythm, normal S1 and S2 without murmur ABDOMEN: Soft, nontender to palpation, normoactive bowel sounds MUSCULOSKELETAL: No bony deformities or tenderness. EXTREMITIES: 2+ pulses, warm, well-perfused. No peripheral edema. NEUROLOGICAL: Cranial nerves II-XII grossly intact. Normal speech. Laboratory Results - last 24 hr 02/03/18 02/03/18 02/03/18 17:25 17:25 17:25 WBC 10.9 H RBC 4.50 Hgb 13.6 Hct 41.5 MCV 92.1 MCH 30.2 MCHC 32.8 RDW 14.2 Plt Count 378 D MPV 8.5 Absolute Neuts (auto) 5.7 Neutrophils % 52.5 Lymphocytes % 35.7 D Monocytes % 7.5 Eosinophils % 3.2 Basophils % 1.1 Nucleated RBC % 0 PT with INR 10.20 INR 0.87 Sodium 141 Potassium 4.5 Chloride 101 Carbon Dioxide 36 H Anion Gap 4 L BUN 23 H Creatinine 0.8 Creat Clearance w eGFR > 60 POC Glucometer Random Glucose 165 H Lactic Acid Calcium 8.6 Phosphorus Magnesium 2.1 Total Bilirubin 0.3 AST 27 ALT 49 Alkaline Phosphatase 165 H Creatine Kinase 97 Troponin I < 0.02 B-Natriuretic Peptide 198.9 H Total Protein 7.8 Albumin 3.0 L Urine Color Urine Appearance Urine pH Ur Specific [place] Urine Protein Urine Glucose (UA) Urine Ketones Urine Blood Urine Nitrite Urine Bilirubin Urine Urobilinogen Ur Leukocyte Esterase Urine WBC (Auto) Urine RBC (Auto) Ur Epithelial Cells Hyaline Casts Urine Mucus 02/03/18 02/03/1802/04/18 17:25 18:35 01:41 WBC RBC Hgb Hct MCV MCH MCHC RDW Plt Count MPV Absolute Neuts (auto) Neutrophils % Lymphocytes % Monocytes % Eosinophils % Basophils % Nucleated RBC % PT with INR INR Sodium Potassium Chloride Carbon Dioxide Anion Gap BUN Creatinine Creat Clearance w eGFR POC Glucometer Random Glucose Lactic Acid 1.1 Calcium Phosphorus Magnesium Total Bilirubin AST ALT Alkaline Phosphatase Creatine Kinase Troponin I B-Natriuretic Peptide Cancelled Total Protein Albumin Urine Color Ltyellow Urine Appearance Slcloudy Urine pH 5.0 Ur Specific [place] 1.009 L Urine Protein 2+ H Urine Glucose (UA) Negative Urine Ketones Negative Urine Blood 1+ H Urine Nitrite Negative Urine Bilirubin Negative Urine Urobilinogen Negative Ur Leukocyte Esterase 3+ H Urine WBC (Auto) 223 Urine RBC (Auto) 6 Ur Epithelial Cells Rare Hyaline Casts 13 Urine Mucus Rare 02/04/18 02/04/18 02/04/18 02:06 06:00 06:00 WBC 12.6 H RBC 4.25 Hgb 12.6 Hct 38.5 MCV 90.7 MCH 29.7 MCHC 32.8 RDW 13.9 Plt Count 332 MPV 8.6 Absolute Neuts (auto) 11.4 H Neutrophils % 90.6 H Lymphocytes % 7.7 L D Monocytes % 1.5 L Eosinophils % 0.0 D Basophils % 0.2 Nucleated RBC % 0 PT with INR INR Sodium 141 Potassium 4.4 Chloride 100 Carbon Dioxide 30 Anion Gap 11 BUN 28 H Creatinine 0.7 Creat Clearance w eGFR > 60 POC Glucometer [phone] Random Glucose 234 H Lactic Acid Calcium 8.3 L Phosphorus 4.2 Magnesium 2.0 Total Bilirubin AST ALT Alkaline Phosphatase Creatine Kinase Troponin I B-Natriuretic Peptide Total Protein Albumin Urine Color Urine Appearance Urine pH Ur Specific [place] Urine Protein Urine Glucose (UA) Urine Ketones Urine Blood Urine Nitrite Urine Bilirubin Urine Urobilinogen Ur Leukocyte Esterase Urine WBC (Auto) Urine RBC (Auto) Ur Epithelial Cells Hyaline Casts Urine Mucus 02/04/18 02/04/18 06:38 11:26 WBC RBC Hgb Hct MCV MCH MCHC RDW Plt Count MPV Absolute Neuts (auto) Neutrophils % Lymphocytes % Monocytes % Eosinophils % Basophils % Nucleated RBC % PT with INR INR Sodium Potassium Chloride Carbon Dioxide Anion Gap BUN Creatinine Creat Clearance w eGFR POC Glucometer [phone] Random Glucose Lactic Acid Calcium Phosphorus Magnesium Total Bilirubin AST ALT Alkaline Phosphatase Creatine Kinase Troponin I B-Natriuretic Peptide Total Protein Albumin Urine Color Urine Appearance Urine pH Ur Specific [place] Urine Protein Urine Glucose (UA) Urine Ketones Urine Blood Urine Nitrite Urine Bilirubin Urine Urobilinogen Ur Leukocyte Esterase Urine WBC (Auto) Urine RBC (Auto) Ur Epithelial Cells Hyaline Casts Urine Mucus Active Medications Generic Name Dose Route Start Last Admin Trade Name Freq PRN Reason Stop Dose Admin Albuterol Sulfate 1 amp 02/03/18 21:13 Ventolin 0.083% Nebulizer Soln - NEB Q4H PRN ASTHMA Albuterol/Ipratropium 1 amp 02/04/18 08:00 02/04/18 12:15 Duoneb - NEB 1 amp RQID [facility] Administration Aspirin 81 mg 02/04/18 10:00 02/04/18 10:00 Ecotrin - PO 81 mg DAILY [facility] Administration Clonidine 0.1 mg 02/03/18 22:00 02/04/18 10:00 Catapres - PO 0.1 mg BID [facility] Administration Diltiazem HCl 120 mg 02/04/18 10:00 02/04/18 10:00 Cardizem Cd - PO 120 mg DAILY [facility] Administration Docusate Sodium 300 mg 02/03/18 21:13 Colace - PO HS PRN CONSTIPATION Duloxetine HCl 60 mg 02/04/18 10:00 02/04/18 10:00 Cymbalta - PO 60 mg DAILY [facility] Administration Gabapentin 300 mg 02/03/18 21:13 Neurontin - PO TID PRN PAIN Heparin Sodium (Porcine) 5,000 unit 02/03/18 22:00 02/04/18 14:14 Heparin - SQ 5,000 unit TID [facility] Administration Hydralazine HCl 25 mg 02/03/18 22:00 02/04/18 10:00 Apresoline - PO 25 mg BID [facility] Administration Ceftriaxone Sodium 2 gm/ 100 mls @ 200 mls/hr 02/04/18 11:15 02/04/18 11:58 Dextrose IVPB 200 mls/hr DAILY [facility] Administration Protocol Insulin Aspart 1 vial 02/04/18 07:00 02/04/18 11:57 Novolog Vial Sliding Scale - SQ 8 units ACHS [facility] Administration Protocol Insulin Detemir 35 units 02/03/18 22:00 02/04/18 07:04 Levemir Vial SQ 35 unit BID@0700,2200 [facility] Administration Levetiracetam 1,000 mg 02/03/18 22:00 02/04/18 10:00 Keppra - PO 1,000 mg BID [facility] Administration Lisinopril 20 mg 02/04/18 10:00 02/04/18 10:00 Prinivil PO 20 mg DAILY [facility] Administration Methylprednisolone Sodium Succinate 40 mg 02/04/18 03:00 02/04/18 15:02 Solu-Medrol - IVPUSH 40 mg Q6H-IV [facility] Administration Oxycodone HCl 5 mg 02/03/18 21:13 Roxicodone - PO Q6H PRN PAIN LEVEL 6-10 Phenazopyridine HCl 100 mg 02/04/18 11:05 Pyridium - PO TID PRN dysuria Fluticasone/Salmeterol 1 puff 02/03/18 22:00 02/04/18 10:00 Advair 100mcg/50mcg - IH 1 puff BID [facility] Administration Senna 2 tab 02/03/18 21:13 Senna - PO HS PRN CONSTIPATION ASSESSMENT/PLAN: 57 yo Female with PMH CAD, CHF, HTN, HLD, COPD, IDDM admitted with SOB, cough productive of greenish/yellow fluids, fevers, chills for 1-2 weeks Acute Hypoxic Hypercarbic Respiratory Distress -Likely secondary to COPD exacerbation -Ceftriaxone 2gm IV Daily -Ventolin Nebs Q4 -Spiriva IH -Symbicort -SoluMedrol 60 mg IV Q6 -Flu swab negative -Sputum C/S -CT chest, chronic smoker with worsening symptoms -Will need yearly low dose CT as outpatient -Sleep screen for DB when respiratory status improves -Consider dietary consultation for weight loss to improve with ventilation and with possible DB CHF -Lasix one time dose noted HTN -Lisinopril 20 mg PO Daily -Cardizem 120 mg PO Daily -Clonidine 0.1 mg PO BID IDDM -Levemir 35 units SQ BID -BGMs -ISS for further glycemic control -Neurontin 300 mg PO TID DVT Prophylaxis -Heparin 5000 units SQ TID FEN -Fluids: none -Electrolytes: No electrolyte abnormalities, BMP in AM -Nutrition: Sodium Controlled Diabetic Diet Dispo: We will continue to follow the patient. Thank you for this consultative opportunity. Visit type - Emergency Visit Emergency Visit: Yes ED Registration Date: 02/03/18 Care time: The patient presented to the Emergency Department on the above date and was hospitalized for further evaluation of their emergent condition. - New Patient This patient is new to me today: Yes Date on this admission: 02/04/18 - Critical Care Critical Care patient: No
[2018-02-04] MEDS ORDERED: PNEUMOC 13-VAL CONJ-DIP CRM/PF 0.5 ML DISP.SYRIN IM ONE (16:49)
--- NOTE | 2018-02-04 16:50 | CON.CARD ---
Consult Consult Specialty:: Cardiology Reason for Consultation:: CHF - History of Present Illness Chief Complaint: Cough History of Present Illness: This is a 57 year old female with past medical history of NIDDM, coronary disease, congestive heart failure, hypertension, hyperlipidemia, COPD, coronary disease with stents presents with difficulty breathing and cough. The patient had seen her doctor in his office. The patient was prescribed antibiotics and steroids which the patient reports taking. EKG NSR with normal intervals, normal [place], and NSSTTW changes. Troponin negative x1 BNP 199 WBC 12.9 - Past Medical History TREE TOPPER: Yes: CVA (? pt thinks she may have had one in the past (L facial droop)), Seizure. No: Alzheimer's Cardio/Vascular: Yes: CAD, HTN. No: AFIB Pulmonary: Yes: Asthma, COPD Gastrointestinal: Yes: Hiatal Hernia, Other ("colitis" mid-April) Hepatobiliary: Yes: Hepatitis C (from a blood transfusion) Infectious Disease: Yes: MRSA (R thigh abscess 02/26) Psych: Yes: Addictions, Anxiety, Bipolar, Depression Musculoskeletal: Yes: Chronic low back pain Endocrine: Yes: Diabetes Mellitus - Past Surgical History Past Surgical History: Yes: Appendectomy, Cholecystectomy (laparoscopic), Colonoscopy, Hysterectomy (vaginal) - Alcohol/Substance Use Hx Alcohol Use: No History of Substance Use: reports: Cocaine (crack) - Smoking History Smoking history: Current every day smoker Have you smoked in the past 12 months: Yes Aproximately how many cigarettes per day: 20 - Social History Usual Living Arrangement: With Spouse Occupation: disabled History of Recent Travel: No Home Medications - Allergies Allergies/Adverse Reactions: Allergies Allergy/AdvReac Type Severity Reaction Status Date / Time No Known Allergies Allergy Verified 02/03/18 16:52 - Home Medications Home Medications: Ambulatory Orders Tiotropium [place] [Spiriva] 18 mcg IH DAILY 12/21/14 Ascorbic Acid [Vitamin C -] 500 mg PO BID #60 tablet 02/15/17 Salmeterol/Fluticasone [Advair 100Mcg/50Mcg -] 1 puff IH BID #1 inhaler metFORMIN HCL [Glucophage -] 500 mg PO BID@0700,1630 #60 tablet 02/15/17 Aspirin Coated [Ecotrin -] 81 mg PO DAILY #30 tablet.ec 06/03/17 Diltiazem Cd [Cardizem Cd -] 120 mg PO DAILY #30 cap.cd.24h 06/03/17 Duloxetine HCl [Cymbalta -] 60 mg PO DAILY #30 capsule. 06/03/17 Lisinopril [Prinivil] 20 mg PO DAILY #30 tablet 06/03/17 cloNIDine HCL [Catapres -] 0.1 mg PO BID #60 tablet 06/03/17 levETIRAcetam [Keppra -] 1,000 mg PO BID #60 tablet 06/03/17 Albuterol 0.083% Nebulizer [place] [Ventolin 0.083% Nebulizer Soln -] 1 neb NEB Q4H PRN #20 vial 12/20/17 Albuterol Sulfate Inhaler - [Ventolin Hfa Inhaler -] 1 - 2 inh PO Q4H PRN #1 inhaler 12/20/17 Docusate Sodium [Colace -] 300 mg PO HS PRN 12/20/17 Gabapentin [Neurontin -] 300 mg PO TID PRN 12/20/17 Sennosides [Senna -] 2 tab PO HS PRN 12/20/17 Insulin Glargine,Hum.rec.anlog [Lantus] 35 unit SQ BID 12/22/17 hydrALAZINE HCL [Apresoline -] 25 mg PO BID 12/22/17 oxyCODONE HCL [Roxicodone -] 5 mg PO Q6H PRN #14 tablet MDD 4 12/24/17 Azithromycin 250 mg PO DAILY #6 tablet 01/25/18 Prednisone [Deltasone] 40 mg PO BID #8 tablet 01/25/18 Cephalexin [Keflex] 500 mg PO BID #14 capsule 01/30/18 Family Disease History - Family Disease History Family Disease History: Diabetes: Mother, Heart Disease: Father, Brother, Sister , Respiratory: Father, Other: Father, Brother, Sister Review of Systems Findings/Remarks: As per HPI Vital Signs: Vital Signs Temperature 98.2 F 02/04/18 16:28 Pulse Rate 81 02/04/18 16:28 Respiratory Rate 20 02/04/18 16:28 Blood Pressure 123/75 02/04/18 16:28 O2 Sat by Pulse Oximetry (%) 99 02/04/18 15:14 Constitutional: Yes: Well Nourished, No Distress HENT: Yes: WNL Neck: Yes: WNL Respiratory: Yes: CTA Bilaterally Gastrointestinal: Yes: Normal Bowel Sounds Cardiovascular: Yes: Regular Rate and Rhythm (NL S1S2) Extremities: Yes: WNL Edema: No - Other Data Labs, Other Data: CBC, BMP 02/04/18 06:00 02/04/18 06:00 INR, PTT INR 0.87 (0.83-1.09) 02/03/18 17:25 Troponin, BNP 02/03/18 02/03/18 17:25 17:25 Troponin I < 0.02 B-Natriuretic Peptide 198.9 H Cancelled Troponin, BNP 02/03/18 02/03/18 17:25 17:25 Troponin I < 0.02 B-Natriuretic Peptide 198.9 H Cancelled Assessment/Plan 57 year old female with past medical history of NIDDM, coronary disease, congestive heart failure, hypertension, hyperlipidemia, COPD, coronary disease with stents presents with difficulty breathing and cough. The patient had seen her doctor in his office. The patient was prescribed antibiotics and steroids which the patient reports taking. EKG NSR with normal intervals, normal [place], and NSSTTW changes. Troponin negative x1 BNP 199 WBC 12.9 Complete Troponin sets Obtain an echocardiogram Continue BP meds Dilt/Lisinopril/Clonindine
[2018-02-04] MEDS: TIOTROPIUM BROMIDE 2.5 MCG (SPIRIVA) RESPIMAT INHALER IH SCH (17:55)
[2018-02-04] MEDS: PHENAZOPYRIDINE HCL 100 MG TABLET (FP) PO PRN (20:20)
[2018-02-04] MEDS: oxyCODONE HCL 5 MG TABLET PO PRN (20:23)
[2018-02-04] MEDS ORDERED: PT OWN MED DRAWER 7, Y5N ONE (20:31)
[2018-02-04] MEDS: BUDESONIDE/FORMETEROL FUMARATE 160/4.5 mcg INHALER IH SCH (21:38)
[2018-02-05] MEDS: methylPREDNISolone NA SUCC 40 MG/1 ML VIAL IVPUSH SCH ×4 (02:45→21:48)
[2018-02-05] MEDS: oxyCODONE HCL 5 MG TABLET PO PRN ×3 (03:23→21:59)
[2018-02-05] MEDS: HEPARIN NA (PORCINE) 5,000 UNITS/ML 1ML VIAL SQ SCH ×3 (05:58→21:48)
[2018-02-05] MEDS: INSULIN (LEVEMIR) 100 UNITS/ML UNITS SQ SCH ×2 (06:33→21:48)
[2018-02-05] MEDS: INSULIN SLIDING SCALE (NOVOLOG) 1 VIAL SQ SCH ×4 (06:33→21:50)
[2018-02-05] MEDS ORDERED: PT OWN MED DRAWER 7, Y5N ONE ×4 (06:48→21:58)
[2018-02-05] MEDS ORDERED: DEXTROSE 5%-WATER 100 ML IVPB ONE (09:34)
[2018-02-05] MEDS: hydrALAZINE HCL 25 MG TABLET (FP) PO SCH ×2 (09:42→21:48)
[2018-02-05] MEDS: NICOTINE 21 MG/24 HOURS TOPICAL PATCH TD SCH (09:42)
[2018-02-05] MEDS: DULoxetine HCL 30 MG CAPSULE.DR (FP) PO SCH (09:44)
[2018-02-05] MEDS: PHENAZOPYRIDINE HCL 100 MG TABLET (FP) PO PRN (09:44)
[2018-02-05] MEDS: TIOTROPIUM BROMIDE 2.5 MCG (SPIRIVA) RESPIMAT INHALER IH SCH (09:45)
[2018-02-05] MEDS: cloNIDine HCL 0.1 MG TABLET PO SCH ×2 (09:45→22:01)
[2018-02-05] MEDS: CEFTRIAXONE 2 GM in DEXTROSE 5%-WATER 100 ML IVPB SCH (09:46)
[2018-02-05] MEDS: LISINOPRIL 20 MG TABLET (FP) PO SCH (09:46)
[2018-02-05] MEDS: ASPIRIN COATED 81 MG TABLET.EC PO SCH (09:47)
[2018-02-05] MEDS: levETIRAcetam 500 MG TABLET (FP) PO SCH ×2 (09:47→21:48)
[2018-02-05] MEDS: BUDESONIDE/FORMETEROL FUMARATE 160/4.5 mcg INHALER IH SCH ×2 (09:55→21:53)
[2018-02-05] MEDS ORDERED: INSULIN (NOVOLOG) ASPART 100 UNITS/ML 10ML VIAL ONE (11:34)
--- NOTE | 2018-02-05 13:21 | PN ---
Progress Note (short form) - Note Progress Note: PULMONARY Still with shortness of breath, cough and wheezing. Vital Signs Period Temp Pulse Resp BP Sys/S[place]ana Pulse Ox Last 24 Hr 98.2 F-98.6 F 65-83 18-20 123-155/65-78 99-99 Gen: mildly tachypneic with speaking Heart: RRR Lung: bilateral rhonchi, wheezes Abd: soft, nontender Ext: + edema CBC, BMP 02/04/18 06:00 02/04/18 22:00 Active Medications Albuterol Sulfate (Ventolin 0.083% Nebulizer Soln -) 1 amp NEB Q4H PRN PRN Reason: ASTHMA Aspirin (Ecotrin -) 81 mg PO DAILY [facility] Last Admin: 02/05/18 09:47 Dose: 81 mg Budesonide/Formoterol Fumarate (Symbicort 160/4.5mcg -) 2 puff IH BID [facility] Last Admin: 02/05/18 09:55 Dose: 2 puff Clonidine (Catapres -) 0.1 mg PO BID [facility] Last Admin: 02/05/18 09:45 Dose: 0.1 mg Diltiazem HCl (Cardizem Cd -) 120 mg PO DAILY [facility] Last Admin: 02/05/18 09:45 Dose: 120 mg Docusate Sodium (Colace -) 300 mg PO HS PRN PRN Reason: CONSTIPATION Duloxetine HCl (Cymbalta -) 60 mg PO DAILY [facility] Last Admin: 02/05/18 09:44 Dose: 60 mg Gabapentin (Neurontin -) 300 mg PO TID PRN PRN Reason: PAIN Heparin Sodium (Porcine) (Heparin -) 5,000 unit SQ TID [facility] Last Admin: 02/05/18 05:58 Dose: 5,000 unit Hydralazine HCl (Apresoline -) 25 mg PO BID [facility] Last Admin: 02/05/18 09:42 Dose: 25 mg Ceftriaxone Sodium 2 gm/ (Dextrose) 100 mls @ 200 mls/hr IVPB DAILY [facility]; Protocol Last Admin: 02/05/18 09:46 Dose: 200 mls/hr Insulin Aspart (Novolog Vial Sliding Scale -) 1 vial SQ ACHS [facility]; Protocol Last Admin: 02/05/18 11:44 Dose: 3 units Insulin Detemir (Levemir Vial) 35 units SQ BID@0700,2200 [facility] Last Admin: 02/05/18 06:33 Dose: 35 unit Levetiracetam (Keppra -) 1,000 mg PO BID [facility] Last Admin: 02/05/18 09:47 Dose: 1,000 mg Lisinopril (Prinivil) 20 mg PO DAILY [facility] Last Admin: 02/05/18 09:46 Dose: 20 mg Methylprednisolone Sodium Succinate (Solu-Medrol -) 60 mg IVPUSH Q6H-IV [facility] Last Admin: 02/05/18 09:45 Dose: 60 mg Nicotine (Nicoderm Patch -) 21 mg TD DAILY [facility] Last Admin: 02/05/18 09:42 Dose: 21 mg Oxycodone HCl (Roxicodone -) 5 mg PO Q6H PRN PRN Reason: PAIN LEVEL 6-10 Last Admin: 02/05/18 09:43 Dose: 5 mg Phenazopyridine HCl (Pyridium -) 100 mg PO TID PRN PRN Reason: dysuria Last Admin: 02/05/18 09:44 Dose: 100 mg Senna (Senna -) 2 tab PO HS PRN PRN Reason: CONSTIPATION Tiotropium [place] (Spiriva Respimat) 2 puff IH DAILY [facility] Last Admin: 02/05/18 09:45 Dose: 2 puff A/P Acute COPD Exacerbation UTI CAD CHF Pulmonary HTN DM Likely DB Smoker - continue medrol at current dose - inhaled bronchodilators standing and PRN - O2 to keep SpO2 >90% - continue antibiotics - outpt PFTs, PSG - smoking cessation - DVT prophylaxis
--- NOTE | 2018-02-05 14:11 | PN ---
Progress Note, Physician Chief Complaint: SOB UTI History of Present Illness: No respiratory distress c/o dysuria UA +1 blood +3 leuks, hx of Ecoli UTI Series of complains, crying, generalized pain, anxious - Current Medication List Current Medications: Active Medications Albuterol Sulfate (Ventolin 0.083% Nebulizer Soln -) 1 amp NEB Q4H PRN PRN Reason: ASTHMA Albuterol/Ipratropium (Duoneb -) 1 amp NEB RQID [facility] Aspirin (Ecotrin -) 81 mg PO DAILY [facility] Last Admin: 02/05/18 09:47 Dose: 81 mg Budesonide/Formoterol Fumarate (Symbicort 160/4.5mcg -) 2 puff IH BID [facility] Last Admin: 02/05/18 09:55 Dose: 2 puff Clonidine (Catapres -) 0.1 mg PO BID [facility] Last Admin: 02/05/18 09:45 Dose: 0.1 mg Diltiazem HCl (Cardizem Cd -) 120 mg PO DAILY [facility] Last Admin: 02/05/18 09:45 Dose: 120 mg Docusate Sodium (Colace -) 300 mg PO HS PRN PRN Reason: CONSTIPATION Duloxetine HCl (Cymbalta -) 60 mg PO DAILY [facility] Last Admin: 02/05/18 09:44 Dose: 60 mg Gabapentin (Neurontin -) 300 mg PO TID PRN PRN Reason: PAIN Heparin Sodium (Porcine) (Heparin -) 5,000 unit SQ TID [facility] Last Admin: 02/05/18 05:58 Dose: 5,000 unit Hydralazine HCl (Apresoline -) 25 mg PO BID [facility] Last Admin: 02/05/18 09:42 Dose: 25 mg Ceftriaxone Sodium 2 gm/ (Dextrose) 100 mls @ 200 mls/hr IVPB DAILY [facility]; Protocol Last Admin: 02/05/18 09:46 Dose: 200 mls/hr Insulin Aspart (Novolog Vial Sliding Scale -) 1 vial SQ ACHS [facility]; Protocol Last Admin: 02/05/18 11:44 Dose: 3 units Insulin Detemir (Levemir Vial) 40 units SQ BID@0700,2200 [facility] Levetiracetam (Keppra -) 1,000 mg PO BID [facility] Last Admin: 02/05/18 09:47 Dose: 1,000 mg Lisinopril (Prinivil) 20 mg PO DAILY [facility] Last Admin: 02/05/18 09:46 Dose: 20 mg Methylprednisolone Sodium Succinate (Solu-Medrol -) 60 mg IVPUSH Q6H-IV [facility] Last Admin: 02/05/18 09:45 Dose: 60 mg Nicotine (Nicoderm Patch -) 21 mg TD DAILY [facility] Last Admin: 02/05/18 09:42 Dose: 21 mg Oxycodone HCl (Roxicodone -) 5 mg PO Q6H PRN PRN Reason: PAIN LEVEL 6-10 Last Admin: 02/05/18 09:43 Dose: 5 mg Phenazopyridine HCl (Pyridium -) 100 mg PO TID PRN PRN Reason: dysuria Last Admin: 02/05/18 09:44 Dose: 100 mg Senna (Senna -) 2 tab PO HS PRN PRN Reason: CONSTIPATION - Objective Vital Signs: Vital Signs Temperature 98.2 F 02/05/18 10:49 Pulse Rate 83 02/05/18 10:49 Respiratory Rate 20 02/05/18 10:49 Blood Pressure 155/65 02/05/18 10:49 O2 Sat by Pulse Oximetry (%) 99 02/05/18 05:00 Constitutional: Yes: Well Nourished, No Distress, Anxious Cardiovascular: Yes: Regular Rate and Rhythm Respiratory: Yes: Regular Gastrointestinal: Yes: Normal Bowel Sounds, Soft, Abdomen, Obese Musculoskeletal: Yes: Back Pain, Other (generalized muscle pain) Extremities: Yes: WNL Edema: No Peripheral Pulses WNL: Yes Neurological: Yes: Alert, Oriented Psychiatric: Yes: Alert, Oriented Labs: CBC, BMP 02/04/18 06:00 02/04/18 22:00 INR, PTT INR 0.87 (0.83-1.09) 02/03/18 17:25 Problem List - Problems (1) Congestive heart failure Assessment/Plan: -Cardiology consult -CXR shows congestive changes -Furosemide 40 mg IVP daily -Daily weights -Nasal O2 PRN to keep SpO2>90% -Low sodium diabetic diet Code(s): I50.9 - HEART FAILURE, UNSPECIFIED (2) COPD exacerbation Assessment/Plan: -Pulmonary consult -Solumedrol 40 Q6H IVP -Nasal O2 to keep SpO2>90% -Bronchodilators Code(s): J44.1 - CHRONIC OBSTRUCTIVE PULMONARY DISEASE W (ACUTE) EXACERBATION (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
--- NOTE | 2018-02-05 14:19 | PN ---
Progress Note, Physician Chief Complaint: +cough and wheeze History of Present Illness: 57 year old female with past medical history of NIDDM, coronary disease, congestive heart failure, hypertension, hyperlipidemia, COPD, coronary disease with stents presents with difficulty breathing and cough. The patient had seen her doctor in his office. The patient was prescribed antibiotics and steroids which the patient reports taking. EKG NSR with normal intervals, normal [place], and NSSTTW changes. Troponin negative x1 BNP 199 WBC 12.9 - Current Medication List Current Medications: Active Medications Albuterol Sulfate (Ventolin 0.083% Nebulizer Soln -) 1 amp NEB Q4H PRN PRN Reason: ASTHMA Albuterol/Ipratropium (Duoneb -) 1 amp NEB RQID [place] Aspirin (Ecotrin -) 81 mg PO DAILY [facility] Last Admin: 02/05/18 09:47 Dose: 81 mg Budesonide/Formoterol Fumarate (Symbicort 160/4.5mcg -) 2 puff IH BID [facility] Last Admin: 02/05/18 09:55 Dose: 2 puff Clonidine (Catapres -) 0.1 mg PO BID [facility] Last Admin: 02/05/18 09:45 Dose: 0.1 mg Diltiazem HCl (Cardizem Cd -) 120 mg PO DAILY [facility] Last Admin: 02/05/18 09:45 Dose: 120 mg Docusate Sodium (Colace -) 300 mg PO HS PRN PRN Reason: CONSTIPATION Duloxetine HCl (Cymbalta -) 60 mg PO DAILY [facility] Last Admin: 02/05/18 09:44 Dose: 60 mg Gabapentin (Neurontin -) 300 mg PO TID PRN PRN Reason: PAIN Heparin Sodium (Porcine) (Heparin -) 5,000 unit SQ TID [facility] Last Admin: 02/05/18 05:58 Dose: 5,000 unit Hydralazine HCl (Apresoline -) 25 mg PO BID [facility] Last Admin: 02/05/18 09:42 Dose: 25 mg Ceftriaxone Sodium 2 gm/ (Dextrose) 100 mls @ 200 mls/hr IVPB DAILY [facility]; Protocol Last Admin: 02/05/18 09:46 Dose: 200 mls/hr Insulin Aspart (Novolog Vial Sliding Scale -) 1 vial SQ ACHS [facility]; Protocol Last Admin: 02/05/18 11:44 Dose: 3 units Insulin Detemir (Levemir Vial) 40 units SQ BID@0700,2200 [facility] Levetiracetam (Keppra -) 1,000 mg PO BID [facility] Last Admin: 02/05/18 09:47 Dose: 1,000 mg Lisinopril (Prinivil) 20 mg PO DAILY [facility] Last Admin: 02/05/18 09:46 Dose: 20 mg Methylprednisolone Sodium Succinate (Solu-Medrol -) 60 mg IVPUSH Q6H-IV [facility] Last Admin: 02/05/18 09:45 Dose: 60 mg Nicotine (Nicoderm Patch -) 21 mg TD DAILY [facility] Last Admin: 02/05/18 09:42 Dose: 21 mg Oxycodone HCl (Roxicodone -) 5 mg PO Q6H PRN PRN Reason: PAIN LEVEL 6-10 Last Admin: 02/05/18 09:43 Dose: 5 mg Phenazopyridine HCl (Pyridium -) 100 mg PO TID PRN PRN Reason: dysuria Last Admin: 02/05/18 09:44 Dose: 100 mg Senna (Senna -) 2 tab PO HS PRN PRN Reason: CONSTIPATION - Objective Vital Signs: Vital Signs Temperature 98.4 F 02/05/18 14:13 Pulse Rate 84 02/05/18 14:13 Respiratory Rate 20 02/05/18 14:13 Blood Pressure 134/81 02/05/18 14:13 O2 Sat by Pulse Oximetry (%) 99 02/05/18 05:00 Constitutional: Yes: No Distress Neck: Yes: Supple Cardiovascular: Yes: Regular Rate and Rhythm, S1, S2. No: JVD, Murmur Respiratory: Yes: Wheezes Gastrointestinal: Yes: Soft Edema: LLE: 1+, RLE: 1+ Labs: CBC, BMP 02/04/18 06:00 02/04/18 22:00 INR, PTT INR 0.87 (0.83-1.09) 02/03/18 17:25 Assessment/Plan 57 year old female with past medical history of NIDDM, coronary disease, congestive heart failure, hypertension, hyperlipidemia, COPD, coronary disease with stents presents with difficulty breathing and cough. The patient had seen her doctor in his office. The patient was prescribed antibiotics and steroids which the patient reports taking. EKG NSR with normal intervals, normal [place], and NSSTTW changes. Troponin negative x1 BNP 199 WBC 12.9 Likely related to copd exacerbation. Being treated as per pulmonary. Continue BP meds Dilt/Lisinopril/Clonindine Echocardiogram pending
--- NOTE | 2018-02-05 14:55 | PN ---
Progress Note (short form) - Note Progress Note: ID Consult dictated Recurrent UTI Acute exacerbation COPD Await c/s Continue ceftriaxone
[2018-02-05] MEDS ORDERED: MENTHOL/PHENOL 1 EACH UD MM PRN (15:07)
[2018-02-05] MEDS: ALBUTEROL SO4 0.083% IH SOL 2.5 MG/3 ML VIAL.NEB. NEB SCH ×3 (15:49→21:00)
[2018-02-05] MEDS ORDERED: ALBUTEROL SO4 2.5/IPRATROPIUM 0.5 INH SOL 3 ML VIAL.NEB. NEB SCH (16:00)
[2018-02-05] MEDS: guaiFENesin/D-M SUGAR-FREE/ACLHOL-FREE 118 ML BOTTLE PO PRN (17:16)
[2018-02-05] MEDS ORDERED: ACETYLCYSTEINE 20% 200MG/ML 30 ML VIAL *FOR ORAL / INH USE ONLY NEB SCH (22:00)
[2018-02-06] MEDS: methylPREDNISolone NA SUCC 40 MG/1 ML VIAL IVPUSH SCH ×4 (02:17→21:41)
[2018-02-06] MEDS: HEPARIN NA (PORCINE) 5,000 UNITS/ML 1ML VIAL SQ SCH ×3 (06:39→21:40)
[2018-02-06] MEDS: oxyCODONE HCL 5 MG TABLET PO PRN ×3 (06:39→21:46)
[2018-02-06] MEDS: INSULIN (LEVEMIR) 100 UNITS/ML UNITS SQ SCH ×2 (06:39→21:49)
[2018-02-06] MEDS: INSULIN SLIDING SCALE (NOVOLOG) 1 VIAL SQ SCH ×4 (06:40→21:48)
[2018-02-06] MEDS: ALBUTEROL SO4 0.083% IH SOL 2.5 MG/3 ML VIAL.NEB. NEB SCH ×5 (06:41→22:00)
[2018-02-06] MEDS ORDERED: INSULIN (NOVOLOG) ASPART 100 UNITS/ML 10ML VIAL ONE ×2 (06:46→11:14)
[2018-02-06] MEDS: ACETYLCYSTEINE 20% 200MG/ML 4 ML VIAL *FOR ORAL / INH USE ONLY NEB SCH ×2 (09:05→21:00)
[2018-02-06] MEDS ORDERED: PT OWN MED DRAWER 7, Y5N ONE ×3 (09:06→21:45)
[2018-02-06] MEDS ORDERED: DEXTROSE 5%-WATER 100 ML IVPB ONE (09:06)
[2018-02-06] MEDS: CEFTRIAXONE 2 GM in DEXTROSE 5%-WATER 100 ML IVPB SCH (09:11)
[2018-02-06] MEDS: levETIRAcetam 500 MG TABLET (FP) PO SCH ×2 (09:12→21:40)
[2018-02-06] MEDS: ASPIRIN COATED 81 MG TABLET.EC PO SCH (09:12)
[2018-02-06] MEDS: guaiFENesin/D-M SUGAR-FREE/ACLHOL-FREE 118 ML BOTTLE PO PRN (09:12)
[2018-02-06] MEDS: LISINOPRIL 20 MG TABLET (FP) PO SCH (09:12)
[2018-02-06] MEDS: NICOTINE 21 MG/24 HOURS TOPICAL PATCH TD SCH (09:12)
[2018-02-06] MEDS: hydrALAZINE HCL 25 MG TABLET (FP) PO SCH ×2 (09:12→21:40)
[2018-02-06] MEDS: PHENAZOPYRIDINE HCL 100 MG TABLET (FP) PO PRN ×2 (09:13→21:47)
[2018-02-06 09:33] LABS: HEMATOCRIT 39.3 % (32.4-45.2); HEMOGLOBIN 12.8 GM/dL (10.7-15.3); LYMPH % 4.2 % (8-40); MCH 30.1 pg (25.7-33.7); MCHC 32.6 g/dl (32.0-36.0); MEAN CELL VOLUME 92.2 fl (80-96); MEAN PLT VOLUME 9.2 fl (7.5-11.1); MONO % 4.1 % (3.8-10.2); NEUT % 90.7 % (42.8-82.8); PLATELET COUNT 337 K/MM3 (134-434); RBC 4.26 M/mm3 (3.60-5.2); RDW 14.2 % (11.6-15.6); WHITE BLOOD COUNT 16.5 K/mm3 (4.0-10.0)
[2018-02-06] MEDS: DULoxetine HCL 30 MG CAPSULE.DR (FP) PO SCH (10:00)
[2018-02-06] MEDS: cloNIDine HCL 0.1 MG TABLET PO SCH ×2 (10:05→21:40)
[2018-02-06] MEDS: BUDESONIDE/FORMETEROL FUMARATE 160/4.5 mcg INHALER IH SCH ×2 (10:05→21:50)
[2018-02-06 10:06] LABS: ALBUMIN 2.6 g/dl (3.4-5.0); ALK PHOS 117 U/L (45-117); ANION GAP 10 MMOL/L (8-16); BILIRUBIN,TOTAL 0.3 mg/dL (0.2-1); BLOOD UREA NITROGEN 32 mg/dL (7-18); CALCIUM 8.2 mg/dL (8.5-10.1); CHLORIDE 98 mmol/L (98-107); CO2 29 mmol/L (21-32); CREATININE 0.8 mg/dL (0.55-1.3); POTASSIUM 4.6 mmol/L (3.5-5.1); SGOT/AST 12 U/L (15-37); SGPT/ALT 34 U/L (13-61); SODIUM 138 mmol/L (136-145); TOT PROT 6.9 g/dl (6.4-8.2)
[2018-02-06 10:09] LABS: GLUCOSE,RANDOM 342 mg/dL (74-106)
--- NOTE | 2018-02-06 11:23 | PN ---
Progress Note, Physician Chief Complaint: SOB UTI History of Present Illness: Feels better No respiratory distress UA +1 blood +3 leuks, hx of Ecoli UTI Non compliant outpatient - Current Medication List Current Medications: Active Medications Acetylcysteine (Mucomyst 20 Oral / Inh Use Only*) 400 mg NEB RBID [facility] Last Admin: 02/06/18 09:05 Dose: 400 mg Albuterol Sulfate (Ventolin 0.083% Nebulizer Soln -) 1 amp NEB Q4HWA [facility] Last Admin: 02/06/18 09:05 Dose: 1 amp Aspirin (Ecotrin -) 81 mg PO DAILY [facility] Last Admin: 02/06/18 09:12 Dose: 81 mg Budesonide/Formoterol Fumarate (Symbicort 160/4.5mcg -) 2 puff IH BID [facility] Last Admin: 02/05/18 21:53 Dose: 2 puff Clonidine (Catapres -) 0.1 mg PO BID [facility] Last Admin: 02/05/18 22:01 Dose: 0.1 mg Diltiazem HCl (Cardizem Cd -) 120 mg PO DAILY [facility] Last Admin: 02/06/18 09:12 Dose: 120 mg Docusate Sodium (Colace -) 300 mg PO HS PRN PRN Reason: CONSTIPATION Duloxetine HCl (Cymbalta -) 60 mg PO DAILY [facility] Last Admin: 02/05/18 09:44 Dose: 60 mg Eucalyptus/Menthol/Phenol/Sorbitol (Cepastat Lozenge -) 1 each MM Q4H PRN PRN Reason: SORE THROAT Gabapentin (Neurontin -) 300 mg PO TID PRN PRN Reason: PAIN Guaifenesin (Diabetic Tussin Dm -) 10 ml PO Q4H PRN PRN Reason: COUGH Last Admin: 02/06/18 09:12 Dose: 10 ml Heparin Sodium (Porcine) (Heparin -) 5,000 unit SQ TID [facility] Last Admin: 02/06/18 06:39 Dose: 5,000 unit Hydralazine HCl (Apresoline -) 25 mg PO BID [facility] Last Admin: 02/06/18 09:12 Dose: 25 mg Ceftriaxone Sodium 2 gm/ (Dextrose) 100 mls @ 200 mls/hr IVPB DAILY [facility]; Protocol Last Admin: 02/06/18 09:11 Dose: 200 mls/hr Insulin Aspart (Novolog Vial Sliding Scale -) 1 vial SQ ACHS [facility]; Protocol Last Admin: 02/06/18 06:40 Dose: 6 units Insulin Detemir (Levemir Vial) 40 units SQ BID@0700,2200 [facility] Last Admin: 02/06/18 06:39 Dose: 40 units Levetiracetam (Keppra -) 1,000 mg PO BID [facility] Last Admin: 02/06/18 09:12 Dose: 1,000 mg Lisinopril (Prinivil) 20 mg PO DAILY [facility] Last Admin: 02/06/18 09:12 Dose: 20 mg Methylprednisolone Sodium Succinate (Solu-Medrol -) 60 mg IVPUSH Q6H-IV [facility] Last Admin: 02/06/18 09:11 Dose: 60 mg Nicotine (Nicoderm Patch -) 21 mg TD DAILY [facility] Last Admin: 02/06/18 09:12 Dose: 21 mg Oxycodone HCl (Roxicodone -) 5 mg PO Q6H PRN PRN Reason: PAIN LEVEL 6-10 Last Admin: 02/06/18 06:39 Dose: 5 mg Phenazopyridine HCl (Pyridium -) 100 mg PO TID PRN PRN Reason: dysuria Last Admin: 02/06/18 09:13 Dose: 100 mg Senna (Senna -) 2 tab PO HS PRN PRN Reason: CONSTIPATION - Objective Vital Signs: Vital Signs Temperature 98.4 F 02/06/18 10:00 Pulse Rate 84 02/06/18 10:00 Respiratory Rate 18 02/06/18 10:00 Blood Pressure 131/78 02/06/18 10:00 O2 Sat by Pulse Oximetry (%) 99 02/06/18 04:01 Constitutional: Yes: Well Nourished, No Distress, Calm Cardiovascular: Yes: Regular Rate and Rhythm Respiratory: Yes: Regular Gastrointestinal: Yes: Normal Bowel Sounds, Soft, Abdomen, Obese Musculoskeletal: Yes: WNL Extremities: Yes: WNL Edema: No Peripheral Pulses WNL: Yes Neurological: Yes: Alert, Oriented Psychiatric: Yes: Alert, Oriented Labs: CBC, BMP 02/06/18 08:42 02/06/18 08:42 INR, PTT INR 0.87 (0.83-1.09) 02/03/18 17:25 Problem List - Problems (1) Congestive heart failure Assessment/Plan: -Cardiology consult -CXR shows congestive changes -Furosemide 40 mg po daily -Daily weights -Nasal O2 PRN to keep SpO2>90% -Low sodium diabetic diet -Echo pending Code(s): I50.9 - HEART FAILURE, UNSPECIFIED (2) COPD exacerbation Assessment/Plan: -Pulmonary consult -Solumedrol 40 Q6H IVP -Nasal O2 to keep SpO2>90% -Bronchodilators Code(s): J44.1 - CHRONIC OBSTRUCTIVE PULMONARY DISEASE W (ACUTE) EXACERBATION (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
[2018-02-06] MEDS ORDERED: FUROSEMIDE 40 MG TABLET (FP) PO SCH (11:30)
--- NOTE | 2018-02-06 12:20 | PN ---
Progress Note (short form) - Note Progress Note: PULMONARY Still with shortness of breath, cough and wheezing. c/o increasing leg swelling. Vital Signs Period Temp Pulse Resp BP Sys/Sultana Pulse Ox Last 24 Hr 98.3 F-98.6 F 78-101 18-20 117-157/60-107 99-99 Gen: mildly tachypneic with speaking Heart: RRR Lung: bilateral rhonchi, wheezes Abd: soft, nontender Ext: + edema CBC, BMP 02/06/18 08:42 02/06/18 08:42 Active Medications Acetylcysteine (Mucomyst 20 Oral / Inh Use Only*) 400 mg NEB RBID [facility] Last Admin: 02/06/18 09:05 Dose: 400 mg Albuterol Sulfate (Ventolin 0.083% Nebulizer Soln -) 1 amp NEB Q4HWA [facility] Last Admin: 02/06/18 09:05 Dose: 1 amp Aspirin (Ecotrin -) 81 mg PO DAILY [facility] Last Admin: 02/06/18 09:12 Dose: 81 mg Budesonide/Formoterol Fumarate (Symbicort 160/4.5mcg -) 2 puff IH BID [facility] Last Admin: 02/05/18 21:53 Dose: 2 puff Clonidine (Catapres -) 0.1 mg PO BID [facility] Last Admin: 02/05/18 22:01 Dose: 0.1 mg Diltiazem HCl (Cardizem Cd -) 120 mg PO DAILY [facility] Last Admin: 02/06/18 09:12 Dose: 120 mg Docusate Sodium (Colace -) 300 mg PO HS PRN PRN Reason: CONSTIPATION Duloxetine HCl (Cymbalta -) 60 mg PO DAILY [facility] Last Admin: 02/05/18 09:44 Dose: 60 mg Eucalyptus/Menthol/Phenol/Sorbitol (Cepastat Lozenge -) 1 each MM Q4H PRN PRN Reason: SORE THROAT Furosemide (Lasix -) 40 mg PO DAILY [facility] Gabapentin (Neurontin -) 300 mg PO TID PRN PRN Reason: PAIN Guaifenesin (Diabetic Tussin Dm -) 10 ml PO Q4H PRN PRN Reason: COUGH Last Admin: 02/06/18 09:12 Dose: 10 ml Heparin Sodium (Porcine) (Heparin -) 5,000 unit SQ TID [facility] Last Admin: 10/28/18 06:39 Dose: 5,000 unit Hydralazine HCl (Apresoline -) 25 mg PO BID [facility] Last Admin: 02/06/18 09:12 Dose: 25 mg Ceftriaxone Sodium 2 gm/ (Dextrose) 100 mls @ 200 mls/hr IVPB DAILY [facility]; Protocol Last Admin: 02/06/18 09:11 Dose: 200 mls/hr Insulin Aspart (Novolog Vial Sliding Scale -) 1 vial SQ ACHS [facility]; Protocol Last Admin: 02/06/18 11:22 Dose: 6 units Insulin Detemir (Levemir Vial) 40 units SQ BID@0700,2200 [facility] Last Admin: 02/06/18 06:39 Dose: 40 units Levetiracetam (Keppra -) 1,000 mg PO BID [facility] Last Admin: 02/06/18 09:12 Dose: 1,000 mg Lisinopril (Prinivil) 20 mg PO DAILY [facility] Last Admin: 02/06/18 09:12 Dose: 20 mg Methylprednisolone Sodium Succinate (Solu-Medrol -) 60 mg IVPUSH Q6H-IV [facility] Last Admin: 02/06/18 09:11 Dose: 60 mg Nicotine (Nicoderm Patch -) 21 mg TD DAILY [facility] Last Admin: 02/06/18 09:12 Dose: 21 mg Oxycodone HCl (Roxicodone -) 5 mg PO Q6H PRN PRN Reason: PAIN LEVEL 6-10 Last Admin: 02/06/18 06:39 Dose: 5 mg Phenazopyridine HCl (Pyridium -) 100 mg PO TID PRN PRN Reason: dysuria Last Admin: 02/06/18 09:13 Dose: 100 mg Senna (Senna -) 2 tab PO HS PRN PRN Reason: CONSTIPATION A/P Acute COPD Exacerbation UTI CAD CHF Pulmonary HTN DM Likely DB Smoker - continue medrol at current dose - inhaled bronchodilators standing and PRN - O2 to keep SpO2 >90% - continue lasix - monitor urine output, creatinine - echocardiogram - continue antibiotics - outpt PFTs, PSG - smoking cessation - DVT prophylaxis
[2018-02-06] MEDS: GABAPENTIN 300 MG CAPSULE (FP) PO PRN (21:41)
--- NOTE | 2018-02-06 23:37 | CONSULT ---
Consult Consult Specialty:: endocrine Referred by:: brittany rudd np Reason for Consultation:: diabetes mellitus hyperglycemia - History of Present Illness Chief Complaint: high sugars History of Present Illness: 57 year old female with a significant past medical history of CAD, CHF, HTN, HLD , COPD, DM who presented to the ED with SOB and cough. She reports the cough is more frequent with increased more prolific sputum production. She is currently on antibiotics and prednisone taper. 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 pt thinks she may have had one in the past (L facial droop)), Seizure. No: Alzheimer's Cardio/Vascular: Yes: CAD, HTN. No: AFIB Pulmonary: Yes: Asthma, COPD Gastrointestinal: Yes: Hiatal Hernia, Other ("colitis" mid-April) Hepatobiliary: Yes: Hepatitis C (from a blood transfusion) Infectious Disease: Yes: MRSA (R thigh abscess 02/26) Psych: Yes: Addictions, Anxiety, Bipolar, Depression Musculoskeletal: Yes: Chronic low back pain Endocrine: Yes: Diabetes Mellitus - Past Surgical History Past Surgical History: Yes: Appendectomy, Cholecystectomy (laparoscopic), Colonoscopy, Hysterectomy (vaginal) - Alcohol/Substance Use Hx Alcohol Use: No History of Substance Use: reports: Cocaine (crack) - Smoking History Smoking history: Current every day smoker Have you smoked in the past 12 months: Yes Aproximately how many cigarettes per day: 20 - Social History Usual Living Arrangement: With Spouse Occupation: disabled History of Recent Travel: No Home Medications - Allergies Allergies/Adverse Reactions: Allergies Allergy/AdvReac Type Severity Reaction Status Date / Time No Known Allergies Allergy Verified 02/03/18 16:52 - Home Medications Home Medications: Ambulatory Orders Tiotropium Axson [Spiriva] 18 mcg IH DAILY 12/21/14 Ascorbic Acid [Vitamin C -] 500 mg PO BID #60 tablet 02/15/17 Salmeterol/Fluticasone [Advair 100Mcg/50Mcg -] 1 puff IH BID #1 inhaler metFORMIN HCL [Glucophage -] 500 mg PO BID@0700,1630 #60 tablet 02/15/17 Aspirin Coated [Ecotrin -] 81 mg PO DAILY #30 tablet.ec 06/03/17 Diltiazem Cd [Cardizem Cd -] 120 mg PO DAILY #30 cap.cd.24h 06/03/17 Duloxetine HCl [Cymbalta -] 60 mg PO DAILY #30 capsule. 06/03/17 Lisinopril [Prinivil] 20 mg PO DAILY #30 tablet 06/03/17 cloNIDine HCL [Catapres -] 0.1 mg PO BID #60 tablet 06/03/17 levETIRAcetam [Keppra -] 1,000 mg PO BID #60 tablet 06/03/17 Albuterol 0.083% Nebulizer Kathleen [Ventolin 0.083% Nebulizer Soln -] 1 neb NEB Q4H PRN #20 vial 12/20/17 Albuterol Sulfate Inhaler - [Ventolin Hfa Inhaler -] 1 - 2 inh PO Q4H PRN #1 inhaler 12/20/17 Docusate Sodium [Colace -] 300 mg PO HS PRN 12/20/17 Gabapentin [Neurontin -] 300 mg PO TID PRN 12/20/17 Sennosides [Senna -] 2 tab PO HS PRN 12/20/17 Insulin Glargine,Hum.rec.anlog [Lantus] 35 unit SQ BID 12/22/17 hydrALAZINE HCL [Apresoline -] 25 mg PO BID 12/22/17 oxyCODONE HCL [Roxicodone -] 5 mg PO Q6H PRN #14 tablet MDD 4 12/24/17 Azithromycin 250 mg PO DAILY #6 tablet 01/25/18 Prednisone [Deltasone] 40 mg PO BID #8 tablet 01/25/18 Cephalexin [Keflex] 500 mg PO BID #14 capsule 01/30/18 Family Disease History - Family Disease History Family Disease History: Diabetes: Mother, Heart Disease: Father, Brother, Sister , Respiratory: Father, Other: Father, Brother, Sister Review of Systems - Review of Systems Constitutional: reports: Weakness Eyes: reports: Blurred Vision HENT: reports: No Symptoms Neck: reports: No Symptoms Cardiovascular: reports: Shortness of Breath Respiratory: reports: Cough, Exercise Intolerance, Orthopnea, SOB, SOB on Exertion Gastrointestinal: reports: Abdominal Pain, Bloating Genitourinary: reports: No Symptoms Musculoskeletal: reports: Decreased ROM, Muscle Pain, Muscle Cramps Integumentary: reports: No Symptoms Neurological: reports: Numbness, Weakness Endocrine: reports: Unexplained Weight Gain Physical Exam Vital Signs: Vital Signs Temperature 98.5 F 02/06/18 22:00 Pulse Rate 103 H 02/06/18 22:00 Respiratory Rate 20 02/06/18 22:00 Blood Pressure 149/78 02/06/18 22:00 O2 Sat by Pulse Oximetry (%) 97 02/06/18 21:00 Constitutional: Yes: Anxious Eyes: Yes: EOM Intact HENT: Yes: Normocephalic Neck: Yes: Trachea Midline Cardiovascular: Yes: Tachycardia Respiratory: Yes: On Nasal O2, Rhonchi, SOB, Tachypnea Gastrointestinal: Yes: Normal Bowel Sounds ...Rectal Exam: Yes: Deferred Renal/: Yes: WNL Musculoskeletal: Yes: Back Pain, Joint Swelling, Muscle Pain, Muscle Weakness Extremities: Yes: Delayed Capillary Refill Edema: LLE: 1+, RLE: 1+ Wound/Incision: Yes: Well Approximated Neurological: Yes: Alert, Oriented Labs: CBC, BMP 02/06/18 08:42 02/06/18 08:42 Problem List - Problems (1) Diabetes mellitus with hyperosmolarity Code(s): E11.00 - TYPE 2 DIAB W HYPROSM W/O NONKET HYPRGLY-HYPROS COMA ([facility]) (2) Congestive heart failure Code(s): I50.9 - HEART FAILURE, UNSPECIFIED (3) Abdominal pain Code(s): R10.9 - UNSPECIFIED ABDOMINAL PAIN (4) Abdominal tenderness Code(s): R10.819 - ABDOMINAL TENDERNESS, UNSPECIFIED SITE (5) Abscess of thigh Code(s): L02.419 - CUTANEOUS ABSCESS OF LIMB, UNSPECIFIED (6) C. difficile colitis Code(s): A04.72 - ENTEROCOLITIS D/T CLOSTRIDIUM DIFFICILE, NOT SPCF RECUR Assessment/Plan Current Active Problems Congestive heart failure (Acute) diabetes mellitus hyperglycmia insulin resistant hypertension ashd morbid obesity Abnormal Lab Results 02/06/18 02/06/18 08:42 08:42 WBC 16.5 H Absolute Neuts (auto) 14.9 H Neutrophils % 90.7 H Lymphocytes % 4.2 L D BUN 32 H Random Glucose 342 H* Calcium 8.2 L AST 12 L Albumin 2.6 L Laboratory Results - last 24 hr 02/06/18 02/06/18 02/06/18 06:36 08:42 08:42 WBC 16.5 H RBC 4.26 Hgb 12.8 Hct 39.3 MCV 92.2 MCH 30.1 MCHC 32.6 RDW 14.2 Plt Count 337 MPV 9.2 Absolute Neuts (auto) 14.9 H Neutrophils % 90.7 H Lymphocytes % 4.2 L D Monocytes % 4.1 D Eosinophils % 0.0 Basophils % 1.0 D Nucleated RBC % 0 Sodium 138 Potassium 4.6 Chloride 98 Carbon Dioxide 29 Anion Gap 10 BUN 32 H Creatinine 0.8 Creat Clearance w eGFR > 60 POC Glucometer 323 Random Glucose 342 H* Calcium 8.2 L Total Bilirubin 0.3 AST 12 L ALT 34 Alkaline Phosphatase 117 Troponin I < 0.02 Total Protein 6.9 Albumin 2.6 L 02/06/18 02/06/18 02/06/18 11:19 16:20 21:48 WBC RBC Hgb Hct MCV MCH MCHC RDW Plt Count MPV Absolute Neuts (auto) Neutrophils % Lymphocytes % Monocytes % Eosinophils % Basophils % Nucleated RBC % Sodium Potassium Chloride Carbon Dioxide Anion Gap BUN Creatinine Creat Clearance w eGFR POC Glucometer 347 378 262 Random Glucose Calcium Total Bilirubin AST ALT Alkaline Phosphatase Troponin I Total Protein Albumin plan: bgm qid novolog insulin doses novolog 70/30 bid at meals will titrate dose of insulin as needed for steroid schedule ck [id number]
[2018-02-07] MEDS: methylPREDNISolone NA SUCC 40 MG/1 ML VIAL IVPUSH SCH ×4 (02:56→22:30)
[2018-02-07] MEDS: INSULIN (LEVEMIR) 100 UNITS/ML UNITS SQ SCH ×2 (06:14→22:30)
[2018-02-07] MEDS: HEPARIN NA (PORCINE) 5,000 UNITS/ML 1ML VIAL SQ SCH ×3 (06:14→22:31)
[2018-02-07] MEDS: INSULIN (NOVOLOG MIX 70/30) 100 UNITS/ML MDV SQ SCH ×2 (06:15→16:55)
[2018-02-07] MEDS: INSULIN SLIDING SCALE (NOVOLOG) 1 VIAL SQ SCH ×4 (06:15→22:30)
[2018-02-07] MEDS: oxyCODONE HCL 5 MG TABLET PO PRN ×3 (06:18→22:32)
[2018-02-07] MEDS: ACETYLCYSTEINE 20% 200MG/ML 4 ML VIAL *FOR ORAL / INH USE ONLY NEB SCH ×2 (07:44→20:41)
[2018-02-07] MEDS: ALBUTEROL SO4 0.083% IH SOL 2.5 MG/3 ML VIAL.NEB. NEB SCH ×4 (07:44→20:42)
--- NOTE | 2018-02-07 09:20 | PN ---
Progress Note, Physician - Current Medication List Current Medications: Active Medications Acetylcysteine (Mucomyst 20 Oral / Inh Use Only*) 400 mg NEB RBID [facility] Last Admin: 02/07/18 07:44 Dose: 400 mg Albuterol Sulfate (Ventolin 0.083% Nebulizer Soln -) 1 amp NEB Q4HWA [facility] Last Admin: 02/07/18 07:44 Dose: 1 amp Aspirin (Ecotrin -) 81 mg PO DAILY [facility] Last Admin: 02/06/18 09:12 Dose: 81 mg Budesonide/Formoterol Fumarate (Symbicort 160/4.5mcg -) 2 puff IH BID [facility] Last Admin: 02/06/18 21:50 Dose: 2 puff Clonidine (Catapres -) 0.1 mg PO BID [facility] Last Admin: 02/06/18 21:40 Dose: 0.1 mg Diltiazem HCl (Cardizem Cd -) 120 mg PO DAILY [facility] Last Admin: 02/06/18 09:12 Dose: 120 mg Docusate Sodium (Colace -) 300 mg PO HS PRN PRN Reason: CONSTIPATION Duloxetine HCl (Cymbalta -) 60 mg PO DAILY [facility] Last Admin: 02/06/18 10:00 Dose: 60 mg Eucalyptus/Menthol/Phenol/Sorbitol (Cepastat Lozenge -) 1 each MM Q4H PRN PRN Reason: SORE THROAT Furosemide (Lasix Injection -) 40 mg IVPUSH BID@0600,1400 [facility] Furosemide (Lasix Injection -) 40 mg IVPUSH ONCE ONE Stop: 02/07/18 09:19 Gabapentin (Neurontin -) 300 mg PO TID PRN PRN Reason: PAIN Last Admin: 02/06/18 21:41 Dose: 300 mg Guaifenesin (Diabetic Tussin Dm -) 10 ml PO Q4H PRN PRN Reason: COUGH Last Admin: 02/06/18 09:12 Dose: 10 ml Heparin Sodium (Porcine) (Heparin -) 5,000 unit SQ TID [facility] Last Admin: 02/07/18 06:14 Dose: 5,000 unit Hydralazine HCl (Apresoline -) 25 mg PO BID [facility] Last Admin: 02/06/18 21:40 Dose: 25 mg Ceftriaxone Sodium 2 gm/ (Dextrose) 100 mls @ 200 mls/hr IVPB DAILY [facility]; Protocol Last Admin: 02/06/18 09:11 Dose: 200 mls/hr Insulin Aspart (Novolog Vial Sliding Scale -) 1 vial SQ ACHS [facility]; Protocol Last Admin: 02/07/18 06:15 Dose: Not Given Insulin Aspart (Novolog Mix 70/30 Vial) 20 units SQ BIDAC [facility] Last Admin: 02/07/18 06:15 Dose: Not Given Insulin Detemir (Levemir Vial) 40 units SQ BID@0700,2200 [facility] Last Admin: 02/07/18 06:14 Dose: 40 units Levetiracetam (Keppra -) 1,000 mg PO BID [facility] Last Admin: 02/06/18 21:40 Dose: 1,000 mg Lisinopril (Prinivil) 20 mg PO DAILY [facility] Last Admin: 02/06/18 09:12 Dose: 20 mg Methylprednisolone Sodium Succinate (Solu-Medrol -) 60 mg IVPUSH Q6H-IV [facility] Last Admin: 02/07/18 02:56 Dose: 60 mg Nicotine (Nicoderm Patch -) 21 mg TD DAILY [facility] Last Admin: 02/06/18 09:12 Dose: 21 mg Oxycodone HCl (Roxicodone -) 5 mg PO Q6H PRN PRN Reason: PAIN LEVEL 6-10 Last Admin: 02/07/18 06:18 Dose: 5 mg Phenazopyridine HCl (Pyridium -) 100 mg PO TID PRN PRN Reason: dysuria Last Admin: 02/06/18 21:47 Dose: 100 mg Senna (Senna -) 2 tab PO HS PRN PRN Reason: CONSTIPATION - Objective Vital Signs: Vital Signs Temperature 98.3 F 02/07/18 06:00 Pulse Rate 74 02/07/18 06:00 Respiratory Rate 18 02/07/18 06:00 Blood Pressure 146/75 02/07/18 06:00 O2 Sat by Pulse Oximetry (%) 98 02/07/18 05:00 Cardiovascular: Yes: S1, S2 Respiratory: Yes: Diminished, On Nasal O2, Rales Gastrointestinal: Yes: Normal Bowel Sounds, Soft, Abdomen, Obese Edema: Yes Labs: CBC, BMP 02/06/18 08:42 02/06/18 08:42 INR, PTT INR 0.87 (0.83-1.09) 02/03/18 17:25 Assessment/Plan - Problems (1) Congestive heart failure Assessment/Plan: -Cardiology consult -CXR shows congestive changes -Furosemide 40 ivp bid 1st dose now -labd ordered -Daily weights -Nasal O2 PRN to keep SpO2>90% -Low sodium diabetic diet -Echo pending Code(s): I50.9 - HEART FAILURE, UNSPECIFIED (2) COPD exacerbation Assessment/Plan: -Pulmonary consult -Solumedrol 40 Q6H IVP -Nasal O2 to keep SpO2>90% -Bronchodilators Code(s): J44.1 - CHRONIC OBSTRUCTIVE PULMONARY DISEASE W (ACUTE) EXACERBATION (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
[2018-02-07] MEDS ORDERED: DEXTROSE 5%-WATER 100 ML IVPB ONE (09:44)
[2018-02-07] MEDS ORDERED: FUROSEMIDE 40 MG/4 ML INJECTABLE VIAL IVPUSH ONE (10:00)
[2018-02-07 10:02] LABS: BASO % 0.1 % (0-2.0); HEMOGLOBIN 13.3 GM/dL (10.7-15.3); LYMPH % 5.2 % (8-40); MCH 29.7 pg (25.7-33.7); MCHC 32.4 g/dl (32.0-36.0); MEAN CELL VOLUME 91.9 fl (80-96); MEAN PLT VOLUME 9.2 fl (7.5-11.1); MONO % 6.7 % (3.8-10.2); PLATELET COUNT 328 K/MM3 (134-434); RBC 4.47 M/mm3 (3.60-5.2); RDW 14.1 % (11.6-15.6); WHITE BLOOD COUNT 14.2 K/mm3 (4.0-10.0)
[2018-02-07] MEDS: CEFTRIAXONE 2 GM in DEXTROSE 5%-WATER 100 ML IVPB SCH (10:02)
[2018-02-07] MEDS: LISINOPRIL 20 MG TABLET (FP) PO SCH (10:03)
[2018-02-07] MEDS: ASPIRIN COATED 81 MG TABLET.EC PO SCH (10:03)
[2018-02-07] MEDS: levETIRAcetam 500 MG TABLET (FP) PO SCH ×2 (10:03→22:31)
[2018-02-07] MEDS: DULoxetine HCL 30 MG CAPSULE.DR (FP) PO SCH (10:03)
[2018-02-07] MEDS: hydrALAZINE HCL 25 MG TABLET (FP) PO SCH ×2 (10:03→22:31)
[2018-02-07] MEDS: NICOTINE 21 MG/24 HOURS TOPICAL PATCH TD SCH (10:04)
[2018-02-07] MEDS: BUDESONIDE/FORMETEROL FUMARATE 160/4.5 mcg INHALER IH SCH ×2 (10:04→22:32)
[2018-02-07] MEDS ORDERED: PT OWN MED DRAWER 7, Y5N ONE ×2 (10:18→22:24)
[2018-02-07] MEDS: cloNIDine HCL 0.1 MG TABLET PO SCH ×2 (10:26→22:31)
[2018-02-07 10:39] LABS: ALBUMIN 2.6 g/dl (3.4-5.0); ALK PHOS 93 U/L (45-117); ANION GAP 9 MMOL/L (8-16); BILIRUBIN,TOTAL 0.4 mg/dL (0.2-1); BLOOD UREA NITROGEN 25 mg/dL (7-18); CALCIUM 8.5 mg/dL (8.5-10.1); CHLORIDE 96 mmol/L (98-107); CO2 36 mmol/L (21-32); CREATININE 0.6 mg/dL (0.55-1.3); GLUCOSE,RANDOM 203 mg/dL (74-106); N-TERMINAL BNP 459.8 pg/ml (5-125); POTASSIUM 4.6 mmol/L (3.5-5.1); SGOT/AST 13 U/L (15-37); SGPT/ALT 30 U/L (13-61); SODIUM 141 mmol/L (136-145); TOT PROT 6.8 g/dl (6.4-8.2)
--- NOTE | 2018-02-07 12:29 | ECHO ---
Name: STERLING THOMPSON Exam:Adult Echocardiogram Study Date: 02/07/2018 11:10 AM Age: 57 yrs Reason For Study: ARRHYTHMIA Height: 64 in Weight: 230 lb BSA: 2.1 m2 MMode/2D Measurements & Calculations IVSd: 1.1 cm Ao root diam: 2.8 cm LVIDd: 4.4 cm LA dimension: 4.3 cm LVIDs: 2.8 cm LVPWd: 1.0 cm EDV(Teich): 89.3 ml TAPSE: 2.2 cm ESV(Teich): 30.1 ml RV S Kirill: 14.3 cm/sec Doppler Measurements & Calculations MV E max kirill: 135.7 cm/sec MR max kirill: 452.8 cm/sec MV A max kirill: 130.3 cm/sec MR max P.1 mmHg MV E/A: 1.0 MV dec time: 0.19 sec TR max kirill: 210.7 cm/sec PI end-d kirill: 103.4 cm/sec TR max P.8 mmHg Med Peak E' Kirill: 8.6 cm/sec Med E/e': 15.8 Lat Peak E' Kirill: 6.9 cm/sec Lat E/e': 19.8 Procedure A complete two-dimensional transthoracic echocardiogram was performed (2D, M-mode, Doppler and color flow Doppler). Left Ventricle The left ventricle is normal in size. Left ventricular systolic function is normal. Ejection Fraction = 60- 65%. No regional wall motion abnormalities noted. Right Ventricle The right ventricle is normal size. The right ventricular systolic function is normal. RV systolic TD i is 14 cm/s. Atria The left atrium is mildly dilated. Right atrial size is normal. Mitral Valve There is mild mitral valve thickening. There is moderate mitral annular calcification. There is mild mitral regurgitation. Tricuspid Valve The tricuspid valve is normal in structure and function. There is mild to moderate tricuspid regurgit ation. Right ventricular systolic pressure is normal. Aortic Valve The aortic valve is normal in structure and function. No aortic regurgitation is present. Pulmonic Valve The pulmonic valve is not well visualized. Mild pulmonic valvular regurgitation. Great Vessels The aortic root is normal size. Pericardium/Pleura There is no pericardial effusion. Interpretation Summary The left ventricle is normal in size. Left ventricular systolic function is normal. No regional wall motion abnormalities noted. Ejection Fraction = 60-65%. The right ventricular systolic function is normal. The left atrium is mildly dilated. Right atrial size is normal. There is mild mitral valve thickening. There is moderate mitral annular calcification. There is mild mitral regurgitation. There is mild to moderate tricuspid regurgitation. Right ventricular systolic pressure is normal. Mild pulmonic valvular regurgitation. There is no pericardial effusion. Previous study is not available for comparison Osmany Alas MD 02/07/2018 12:28 PM
--- NOTE | 2018-02-07 12:32 | PN ---
Progress Note (short form) - Note Progress Note: OOB to chair. Still with shortness of breath, cough and wheezing. Unable to expectorate sputum. Noted Mucomyst ordered yesterday. Intake & Output 02/04/18 02/05/18 02/06/18 02/07/18 23:59 23:59 23:59 23:59 Intake Total 200 1200 950 200 Balance 200 1200 950 200 Weight 230 lb 230 lb 234 lb 7 oz 234 lb 4 oz Last Vital Signs Temp Pulse Resp BP Pulse Ox 98.3 F 74 18 146/75 98 02/07/18 06:00 02/07/18 06:00 02/07/18 06:00 02/07/18 06:00 02/07/18 05:00 Active Medications Acetylcysteine (Mucomyst 20 Oral / Inh Use Only*) 400 mg NEB RBID [facility] Last Admin: 02/07/18 07:44 Dose: 400 mg Albuterol Sulfate (Ventolin 0.083% Nebulizer Soln -) 1 amp NEB Q4HWA [facility] Last Admin: 02/07/18 12:18 Dose: 1 amp Aspirin (Ecotrin -) 81 mg PO DAILY [facility] Last Admin: 02/07/18 10:03 Dose: 81 mg Budesonide/Formoterol Fumarate (Symbicort 160/4.5mcg -) 2 puff IH BID [facility] Last Admin: 02/07/18 10:04 Dose: 2 puff Clonidine (Catapres -) 0.1 mg PO BID [facility] Last Admin: 02/07/18 10:26 Dose: 0.1 mg Diltiazem HCl (Cardizem Cd -) 120 mg PO DAILY [facility] Last Admin: 02/07/18 10:03 Dose: 120 mg Docusate Sodium (Colace -) 300 mg PO HS PRN PRN Reason: CONSTIPATION Duloxetine HCl (Cymbalta -) 60 mg PO DAILY [facility] Last Admin: 02/07/18 10:03 Dose: 60 mg Eucalyptus/Menthol/Phenol/Sorbitol (Cepastat Lozenge -) 1 each MM Q4H PRN PRN Reason: SORE THROAT Furosemide (Lasix Injection -) 40 mg IVPUSH BID@0600,1400 [facility] Gabapentin (Neurontin -) 300 mg PO TID PRN PRN Reason: PAIN Last Admin: 02/06/18 21:41 Dose: 300 mg Guaifenesin (Diabetic Tussin Dm -) 10 ml PO Q4H PRN PRN Reason: COUGH Last Admin: 02/06/18 09:12 Dose: 10 ml Heparin Sodium (Porcine) (Heparin -) 5,000 unit SQ TID [facility] Last Admin: 02/07/18 06:14 Dose: 5,000 unit Hydralazine HCl (Apresoline -) 25 mg PO BID [facility] Last Admin: 02/07/18 10:03 Dose: 25 mg Ceftriaxone Sodium 2 gm/ (Dextrose) 100 mls @ 200 mls/hr IVPB DAILY [facility]; Protocol Last Admin: 02/07/18 10:02 Dose: 200 mls/hr Insulin Aspart (Novolog Vial Sliding Scale -) 1 vial SQ ACHS [facility]; Protocol Last Admin: 02/07/18 11:52 Dose: 2 units Insulin Aspart (Novolog Mix 70/30 Vial) 20 units SQ BIDAC [facility] Last Admin: 02/07/18 06:15 Dose: Not Given Insulin Detemir (Levemir Vial) 40 units SQ BID@0700,2200 [facility] Last Admin: 02/07/18 06:14 Dose: 40 units Levetiracetam (Keppra -) 1,000 mg PO BID [facility] Last Admin: 02/07/18 10:03 Dose: 1,000 mg Lisinopril (Prinivil) 20 mg PO DAILY [facility] Last Admin: 02/07/18 10:03 Dose: 20 mg Methylprednisolone Sodium Succinate (Solu-Medrol -) 60 mg IVPUSH Q6H-IV [facility] Last Admin: 02/07/18 10:02 Dose: 60 mg Nicotine (Nicoderm Patch -) 21 mg TD DAILY [facility] Last Admin: 02/07/18 10:04 Dose: 21 mg Oxycodone HCl (Roxicodone -) 5 mg PO Q6H PRN PRN Reason: PAIN LEVEL 6-10 Last Admin: 02/07/18 06:18 Dose: 5 mg Phenazopyridine HCl (Pyridium -) 100 mg PO TID PRN PRN Reason: dysuria Last Admin: 02/06/18 21:47 Dose: 100 mg Senna (Senna -) 2 tab PO HS PRN PRN Reason: CONSTIPATION Gen: mildly tachypneic with speaking Heart: RRR Lung: bilateral rhonchi, wheezes Abd: soft, nontender Ext: + edema Laboratory Results - last 24 hr 02/06/18 02/06/18 02/07/18 16:20 21:48 06:13 WBC RBC Hgb Hct MCV MCH MCHC RDW Plt Count MPV Absolute Neuts (auto) Neutrophils % Lymphocytes % Monocytes % Eosinophils % Basophils % Nucleated RBC % Sodium Potassium Chloride Carbon Dioxide Anion Gap BUN Creatinine Creat Clearance w eGFR POC Glucometer 378 262 110 Random Glucose Calcium Total Bilirubin AST ALT Alkaline Phosphatase Creatine Kinase Troponin I B-Natriuretic Peptide Total Protein Albumin 02/07/18 02/07/18 09:50 09:50 WBC 14.2 H RBC 4.47 Hgb 13.3 Hct 41.0 MCV 91.9 MCH 29.7 MCHC 32.4 RDW 14.1 Plt Count 328 MPV 9.2 Absolute Neuts (auto) 12.5 H Neutrophils % 88.0 H Lymphocytes % 5.2 L D Monocytes % 6.7 Eosinophils % 0.0 Basophils % 0.1 Nucleated RBC % 0 Sodium 141 Potassium 4.6 Chloride 96 L Carbon Dioxide 36 H Anion Gap 9 BUN 25 H Creatinine 0.6 Creat Clearance w eGFR > 60 POC Glucometer Random Glucose 203 H Calcium 8.5 Total Bilirubin 0.4 AST 13 L ALT 30 Alkaline Phosphatase 93 Creatine Kinase 38 Troponin I < 0.02 B-Natriuretic Peptide 459.8 H Total Protein 6.8 Albumin 2.6 L A/P Acute COPD Exacerbation UTI CAD CHF Pulmonary HTN DM Likely DB Smoker - continue medrol at current dose - inhaled bronchodilators standing and PRN - O2 to keep SpO2 >90% - continue lasix - monitor urine output, creatinine - continue antibiotics - outpt PFTs, PSG - smoking cessation - DVT prophylaxis Dr Cheng
[2018-02-07] MEDS: GABAPENTIN 300 MG CAPSULE (FP) PO PRN (13:30)
[2018-02-07] MEDS: FUROSEMIDE 40 MG/4 ML INJECTABLE VIAL IVPUSH SCH (13:31)
--- NOTE | 2018-02-07 15:06 | EKG ---
Test Reason : Blood Pressure : / mmHG Vent. Rate : 070 BPM Atrial Rate : 070 BPM P-R Int : 170 ms QRS Dur : 088 ms QT Int : 410 ms P-R-T Axes : 069 051 035 degrees QTc Int : 442 ms NORMAL SINUS RHYTHM POSSIBLE LEFT ATRIAL ENLARGEMENT BORDERLINE ECG WHEN COMPARED WITH ECG OF 03-FEB-2018 17:32, NO SIGNIFICANT CHANGE WAS FOUND Confirmed by CHRISTOPHER STERN MD ([id number]) on 02/07/2018 3:05:50 PM Referred By: DAPHNEY ZHOU DR Confirmed By:CHRISTOPHER STERN MD
--- NOTE | 2018-02-07 15:26 | PN ---
Progress Note, Physician Chief Complaint: The patient has improved SOB and cough. History of Present Illness: 57 year old woman with a PMHx of HTN, NIDDM, hyperlipidemia, CAD s/p stent in the past, diastolic CHF, COPD admitted with difficulty breathing and cough. EKG NSR with normal intervals, normal axis, and no significant ST-T abnormalities. Echocardiogram 02/07/2018: Normal LV size, wall motion and systolic function, LVEF = 60-65%. Normal RV. Mild LA dilatation. Mild MR. Mild to moderate TR. - Current Medication List Current Medications: Active Medications Acetylcysteine (Mucomyst 20 Oral / Inh Use Only*) 400 mg NEB RBID [facility] Last Admin: 02/07/18 07:44 Dose: 400 mg Albuterol Sulfate (Ventolin 0.083% Nebulizer Soln -) 1 amp NEB Q4HWA [facility] Last Admin: 02/07/18 12:18 Dose: 1 amp Aspirin (Ecotrin -) 81 mg PO DAILY [facility] Last Admin: 02/07/18 10:03 Dose: 81 mg Budesonide/Formoterol Fumarate (Symbicort 160/4.5mcg -) 2 puff IH BID [facility] Last Admin: 02/07/18 10:04 Dose: 2 puff Clonidine (Catapres -) 0.1 mg PO BID [facility] Last Admin: 02/07/18 10:26 Dose: 0.1 mg Diltiazem HCl (Cardizem Cd -) 120 mg PO DAILY [facility] Last Admin: 02/07/18 10:03 Dose: 120 mg Docusate Sodium (Colace -) 300 mg PO HS PRN PRN Reason: CONSTIPATION Duloxetine HCl (Cymbalta -) 60 mg PO DAILY [facility] Last Admin: 02/07/18 10:03 Dose: 60 mg Eucalyptus/Menthol/Phenol/Sorbitol (Cepastat Lozenge -) 1 each MM Q4H PRN PRN Reason: SORE THROAT Furosemide (Lasix Injection -) 40 mg IVPUSH BID@0600,1400 [facility] Last Admin: 02/07/18 13:31 Dose: 40 mg Gabapentin (Neurontin -) 300 mg PO TID PRN PRN Reason: PAIN Last Admin: 02/07/18 13:30 Dose: 300 mg Guaifenesin (Diabetic Tussin Dm -) 10 ml PO Q4H PRN PRN Reason: COUGH Last Admin: 02/06/18 09:12 Dose: 10 ml Heparin Sodium (Porcine) (Heparin -) 5,000 unit SQ TID [facility] Last Admin: 02/07/18 13:31 Dose: 5,000 unit Hydralazine HCl (Apresoline -) 25 mg PO BID [facility] Last Admin: 02/07/18 10:03 Dose: 25 mg Ceftriaxone Sodium 2 gm/ (Dextrose) 100 mls @ 200 mls/hr IVPB DAILY [facility]; Protocol Last Admin: 02/07/18 10:02 Dose: 200 mls/hr Insulin Aspart (Novolog Vial Sliding Scale -) 1 vial SQ ACHS [facility]; Protocol Last Admin: 02/07/18 11:52 Dose: 2 units Insulin Aspart (Novolog Mix 70/30 Vial) 20 units SQ BIDAC [facility] Last Admin: 02/07/18 06:15 Dose: Not Given Insulin Detemir (Levemir Vial) 40 units SQ BID@0700,2200 [facility] Last Admin: 02/07/18 06:14 Dose: 40 units Levetiracetam (Keppra -) 1,000 mg PO BID [facility] Last Admin: 02/07/18 10:03 Dose: 1,000 mg Lisinopril (Prinivil) 20 mg PO DAILY [facility] Last Admin: 02/07/18 10:03 Dose: 20 mg Methylprednisolone Sodium Succinate (Solu-Medrol -) 60 mg IVPUSH Q6H-IV [facility] Last Admin: 02/07/18 10:02 Dose: 60 mg Nicotine (Nicoderm Patch -) 21 mg TD DAILY [facility] Last Admin: 02/07/18 10:04 Dose: 21 mg Oxycodone HCl (Roxicodone -) 5 mg PO Q6H PRN PRN Reason: PAIN LEVEL 6-10 Last Admin: 02/07/18 13:29 Dose: 5 mg Phenazopyridine HCl (Pyridium -) 100 mg PO TID PRN PRN Reason: dysuria Last Admin: 02/06/18 21:47 Dose: 100 mg Senna (Senna -) 2 tab PO HS PRN PRN Reason: CONSTIPATION - Objective Vital Signs: Vital Signs Temperature 98.7 F 02/07/18 14:00 Pulse Rate 87 02/07/18 14:00 Respiratory Rate 20 02/07/18 14:00 Blood Pressure 151/51 L 02/07/18 14:00 O2 Sat by Pulse Oximetry (%) 98 02/07/18 09:00 General: Well developed. Obese. No acute distress. Head: Normocephalic. Atraumatic, Eyes: PERRLA, EOMI. Sclerae anicteric. Conjunctivae clear. Neck: Supple. No JVD. No bruits. Heart: Normal S1, S2: Regular rhythm and rate. No murmur. No gallop or rub. Lungs: Symmetrical poor air entry with prolonged expiration. Scattered rhonchi. No crackles. No wheezing. Abdomen: Soft. Bowel sound positive. Non tender. No masses. Extremities: 1-2+No edema. No clubbing or cyanosis. PD 2+, equal bilaterally. Labs: CBC, BMP 02/07/18 09:50 02/07/18 09:50 INR, PTT INR 0.87 (0.83-1.09) 02/03/18 17:25 Assessment/Plan 57 year old woman with a PMHx of HTN, NIDDM, hyperlipidemia, CAD s/p stent in the past, diastolic CHF, COPD admitted with difficulty breathing and cough. EKG NSR with normal intervals, normal axis, and no significant ST-T abnormalities. Echocardiogram 02/07/2018: Normal LV size, wall motion and systolic function, LVEF = 60-65%. Normal RV. Mild LA dilatation. Mild MR. Mild to moderate TR. 1) Chronic diastolic CHF with SOB and cough. Her symptoms are likely related to copd exacerbation. Being treated as per pulmonary. May change Lasix to PO 40 mg BID. 2) CAD s/p stent No recurrent chest pain. Continue aspirin Add statin. 3) HTN: still has systolic hypertension: May increase Diltiazem to 240 mg daily. Continue Lisinopril/Clonindine/hydralazine. Out-pt cardiac follow up. Please call us for reconsult as needed.
[2018-02-07] MEDS ORDERED: INSULIN (NOVOLOG MIX 70/30) 100 UNITS/ML MDV SQ ONE (17:29)
[2018-02-07] MEDS ORDERED: INSULIN (NOVOLOG) ASPART 100 UNITS/ML 10ML VIAL ONE ×2 (17:30→21:16)
--- NOTE | 2018-02-07 19:27 | PN ---
Progress Note, Physician History of Present Illness: Awake, alert Seated in bed C/O dyspnea, dysuria Afebrile WBC mildly elevated - Current Medication List Current Medications: Active Medications Acetylcysteine (Mucomyst 20 Oral / Inh Use Only*) 400 mg NEB RBID [facility] Last Admin: 02/07/18 07:44 Dose: 400 mg Albuterol Sulfate (Ventolin 0.083% Nebulizer Soln -) 1 amp NEB Q4HWA [facility] Last Admin: 02/07/18 12:18 Dose: 1 amp Aspirin (Ecotrin -) 81 mg PO DAILY [facility] Last Admin: 02/07/18 10:03 Dose: 81 mg Budesonide/Formoterol Fumarate (Symbicort 160/4.5mcg -) 2 puff IH BID [facility] Last Admin: 02/07/18 10:04 Dose: 2 puff Clonidine (Catapres -) 0.1 mg PO BID [facility] Last Admin: 02/07/18 10:26 Dose: 0.1 mg Diltiazem HCl (Cardizem Cd -) 120 mg PO DAILY [facility] Last Admin: 02/07/18 10:03 Dose: 120 mg Docusate Sodium (Colace -) 300 mg PO HS PRN PRN Reason: CONSTIPATION Duloxetine HCl (Cymbalta -) 60 mg PO DAILY [facility] Last Admin: 02/07/18 10:03 Dose: 60 mg Eucalyptus/Menthol/Phenol/Sorbitol (Cepastat Lozenge -) 1 each MM Q4H PRN PRN Reason: SORE THROAT Furosemide (Lasix Injection -) 40 mg IVPUSH BID@0600,1400 [facility] Last Admin: 02/07/18 13:31 Dose: 40 mg Gabapentin (Neurontin -) 300 mg PO TID PRN PRN Reason: PAIN Last Admin: 02/07/18 13:30 Dose: 300 mg Guaifenesin (Diabetic Tussin Dm -) 10 ml PO Q4H PRN PRN Reason: COUGH Last Admin: 02/06/18 09:12 Dose: 10 ml Heparin Sodium (Porcine) (Heparin -) 5,000 unit SQ TID [facility] Last Admin: 02/07/18 13:31 Dose: 5,000 unit Hydralazine HCl (Apresoline -) 25 mg PO BID [facility] Last Admin: 02/07/18 10:03 Dose: 25 mg Ceftazidime 1 gm/ Dextrose 50 mls @ 200 mls/hr IVPB BID [facility]; Protocol Insulin Aspart (Novolog Vial Sliding Scale -) 1 vial SQ ACHS [facility]; Protocol Last Admin: 02/07/18 16:55 Dose: 6 units Insulin Aspart (Novolog Mix 70/30 Vial) 20 units SQ BIDAC [facility] Last Admin: 02/07/18 16:55 Dose: 20 units Insulin Detemir (Levemir Vial) 40 units SQ BID@0700,2200 [facility] Last Admin: 02/07/18 06:14 Dose: 40 units Levetiracetam (Keppra -) 1,000 mg PO BID [facility] Last Admin: 02/07/18 10:03 Dose: 1,000 mg Lisinopril (Prinivil) 20 mg PO DAILY [facility] Last Admin: 02/07/18 10:03 Dose: 20 mg Methylprednisolone Sodium Succinate (Solu-Medrol -) 60 mg IVPUSH Q6H-IV [facility] Last Admin: 02/07/18 15:20 Dose: 60 mg Nicotine (Nicoderm Patch -) 21 mg TD DAILY [facility] Last Admin: 02/07/18 10:04 Dose: 21 mg Oxycodone HCl (Roxicodone -) 5 mg PO Q6H PRN PRN Reason: PAIN LEVEL 6-10 Last Admin: 02/07/18 13:29 Dose: 5 mg Phenazopyridine HCl (Pyridium -) 100 mg PO TID PRN PRN Reason: dysuria Last Admin: 02/06/18 21:47 Dose: 100 mg Senna (Senna -) 2 tab PO HS PRN PRN Reason: CONSTIPATION - Objective Vital Signs: Vital Signs Temperature 98.7 F 02/07/18 14:00 Pulse Rate 87 02/07/18 14:00 Respiratory Rate 20 02/07/18 14:00 Blood Pressure 151/51 L 02/07/18 14:00 O2 Sat by Pulse Oximetry (%) 98 02/07/18 09:00 Constitutional: Yes: No Distress, Obese Cardiovascular: Yes: Regular Rate and Rhythm, S1, S2 Respiratory: Yes: Rhonchi Gastrointestinal: Yes: Soft, Abdomen, Obese Labs: CBC, BMP 02/07/18 09:50 02/07/18 09:50 INR, PTT INR 0.87 (0.83-1.09) 02/03/18 17:25 Assessment/Plan Recurrent UTI (R) E coli Acute exacerbation COPD Substitute ceftazidime 1gm q12h
[2018-02-07] MEDS ORDERED: CEFTAZIDIME PENTAHYDRATE 1 GM in DEXTROSE 5%-WATER - 100 ML IVPB SCH (22:00)
[2018-02-07] MEDS: CEFTAZIDIME PENTAHYDRATE 1 GM in DEXTROSE 5%-WATER - 50 ML IVPB SCH (22:31)
--- NOTE | 2018-02-08 01:03 | CONS ---
DATE OF CONSULTATION: 02/05/2018 HISTORY OF PRESENT ILLNESS: The patient is a 57-year-old female with a history of COPD, history of recurrent urinary tract infections, now evaluated for UTI. The patient was admitted to the hospital on February 03, 2018, with increasing shortness of breath and cough. She was diagnosed with an acute exacerbation of COPD. Her course was complicated by elevated white blood cell count and pyuria. Patient complains of dysuria. She denies any hematuria. No complaints of suprapubic or flank pain. 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 PAST MEDICAL HISTORY: Positive for COPD, congestive heart failure, hypertension, hyperlipidemia, coronary artery disease, diabetes mellitus. ALLERGIES: No known allergies. LABORATORY DATA: White count 12.6, hematocrit 38.5, platelet count 332, creatinine 0.7. Urinalysis 223 white cells. 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 Blood cultures are negative. PHYSICAL EXAMINATION: General: She is obese. She appears dyspneic at rest but in no acute respiratory distress. Vital signs: Temperature 98.4, blood pressure 134/81, pulse 84 regular, respirations 20 per minute. Patient is obese. HEENT: Sclerae anicteric. Cardiovascular: Heart sounds S1, S2. Lungs: Bilateral rhonchi and scattered wheezing. Abdomen: Obese, soft, nontender. Extremities: 1+ edema. IMPRESSION: 1. Acute exacerbation chronic obstructive pulmonary disease. 2. Recurrent urinary tract infection. 3. Leukocytosis, multifactorial. Await urine culture results. Empiric antibiotic coverage with ceftriaxone pending culture results. Will follow. Thank you for the kind referral. BHARATHI GUERRERO M.D. [id number]
[2018-02-08] MEDS: methylPREDNISolone NA SUCC 40 MG/1 ML VIAL IVPUSH SCH ×4 (04:06→21:13)
[2018-02-08] MEDS: FUROSEMIDE 40 MG/4 ML INJECTABLE VIAL IVPUSH SCH ×2 (06:10→14:04)
[2018-02-08] MEDS: HEPARIN NA (PORCINE) 5,000 UNITS/ML 1ML VIAL SQ SCH ×3 (06:10→21:13)
[2018-02-08] MEDS: INSULIN (NOVOLOG MIX 70/30) 100 UNITS/ML MDV SQ SCH ×2 (06:11→16:44)
[2018-02-08] MEDS: INSULIN SLIDING SCALE (NOVOLOG) 1 VIAL SQ SCH ×4 (06:11→21:15)
[2018-02-08] MEDS: INSULIN (LEVEMIR) 100 UNITS/ML UNITS SQ SCH ×2 (06:11→21:20)
[2018-02-08] MEDS: oxyCODONE HCL 5 MG TABLET PO PRN ×2 (06:15→18:11)
[2018-02-08] MEDS ORDERED: PT OWN MED DRAWER 7, Y5N ONE ×2 (06:36→21:00)
[2018-02-08] MEDS: ALBUTEROL SO4 0.083% IH SOL 2.5 MG/3 ML VIAL.NEB. NEB SCH ×3 (06:39→22:30)
[2018-02-08] MEDS: ACETYLCYSTEINE 20% 200MG/ML 4 ML VIAL *FOR ORAL / INH USE ONLY NEB SCH ×2 (08:09→22:30)
--- NOTE | 2018-02-08 08:13 | PN ---
Progress Note, Physician - Current Medication List Current Medications: Active Medications Acetylcysteine (Mucomyst 20 Oral / Inh Use Only*) 400 mg NEB RBID [facility] Last Admin: 02/07/18 20:41 Dose: 400 mg Albuterol Sulfate (Ventolin 0.083% Nebulizer Soln -) 1 amp NEB Q4HWA [facility] Last Admin: 02/08/18 06:39 Dose: 1 amp Aspirin (Ecotrin -) 81 mg PO DAILY [facility] Last Admin: 02/07/18 10:03 Dose: 81 mg Budesonide/Formoterol Fumarate (Symbicort 160/4.5mcg -) 2 puff IH BID [facility] Last Admin: 02/07/18 22:32 Dose: 2 puff Clonidine (Catapres -) 0.1 mg PO BID [facility] Last Admin: 02/07/18 22:31 Dose: 0.1 mg Diltiazem HCl (Cardizem Cd -) 120 mg PO DAILY [facility] Last Admin: 02/07/18 10:03 Dose: 120 mg Docusate Sodium (Colace -) 300 mg PO HS PRN PRN Reason: CONSTIPATION Duloxetine HCl (Cymbalta -) 60 mg PO DAILY [facility] Last Admin: 02/07/18 10:03 Dose: 60 mg Eucalyptus/Menthol/Phenol/Sorbitol (Cepastat Lozenge -) 1 each MM Q4H PRN PRN Reason: SORE THROAT Furosemide (Lasix Injection -) 40 mg IVPUSH BID@0600,1400 [facility] Last Admin: 02/08/18 06:10 Dose: 40 mg Gabapentin (Neurontin -) 300 mg PO TID PRN PRN Reason: PAIN Last Admin: 02/07/18 13:30 Dose: 300 mg Guaifenesin (Diabetic Tussin Dm -) 10 ml PO Q4H PRN PRN Reason: COUGH Last Admin: 02/06/18 09:12 Dose: 10 ml Heparin Sodium (Porcine) (Heparin -) 5,000 unit SQ TID [facility] Last Admin: 02/08/18 06:10 Dose: 5,000 unit Hydralazine HCl (Apresoline -) 25 mg PO BID [facility] Last Admin: 02/07/18 22:31 Dose: 25 mg Ceftazidime 1 gm/ Dextrose 50 mls @ 200 mls/hr IVPB BID [facility]; Protocol Last Admin: 02/07/18 22:31 Dose: 200 mls/hr Insulin Aspart (Novolog Vial Sliding Scale -) 1 vial SQ ACHS [facility]; Protocol Last Admin: 02/08/18 06:11 Dose: Not Given Insulin Aspart (Novolog Mix 70/30 Vial) 22 units SQ BIDAC [facility] Last Admin: 02/08/18 06:11 Dose: Not Given Insulin Detemir (Levemir Vial) 40 units SQ BID@0700,2200 [facility] Last Admin: 02/08/18 06:11 Dose: Not Given Levetiracetam (Keppra -) 1,000 mg PO BID [facility] Last Admin: 02/07/18 22:31 Dose: 1,000 mg Lisinopril (Prinivil) 20 mg PO DAILY [facility] Last Admin: 02/07/18 10:03 Dose: 20 mg Methylprednisolone Sodium Succinate (Solu-Medrol -) 60 mg IVPUSH Q6H-IV [facility] Last Admin: 02/08/18 04:06 Dose: 60 mg Nicotine (Nicoderm Patch -) 21 mg TD DAILY [facility] Last Admin: 02/07/18 10:04 Dose: 21 mg Oxycodone HCl (Roxicodone -) 5 mg PO Q6H PRN PRN Reason: PAIN LEVEL 6-10 Last Admin: 02/08/18 06:15 Dose: 5 mg Phenazopyridine HCl (Pyridium -) 100 mg PO TID PRN PRN Reason: dysuria Last Admin: 02/06/18 21:47 Dose: 100 mg Senna (Senna -) 2 tab PO HS PRN PRN Reason: CONSTIPATION - Objective Vital Signs: Vital Signs Temperature 98.7 F 02/08/18 05:11 Pulse Rate 76 02/08/18 05:11 Respiratory Rate 21 H 02/08/18 05:11 Blood Pressure 145/81 02/08/18 05:11 O2 Sat by Pulse Oximetry (%) 98 02/08/18 04:00 Cardiovascular: Yes: S1, S2 Respiratory: Yes: On Nasal O2, Rhonchi Gastrointestinal: Yes: Normal Bowel Sounds, Soft Edema: Yes Labs: CBC, BMP 02/07/18 09:50 02/07/18 09:50 INR, PTT INR 0.87 (0.83-1.09) 02/03/18 17:25 Assessment/Plan - Problems (1) Congestive heart failure Assessment/Plan: -Cardiology consult -CXR shows congestive changes -Furosemide 40 ivp bid 1st dose now -labd ordered -Daily weights -Nasal O2 PRN to keep SpO2>90% -Low sodium diabetic diet -Echo pending Code(s): I50.9 - HEART FAILURE, UNSPECIFIED (2) COPD exacerbation Assessment/Plan: -Pulmonary consult -Solumedrol 40 Q6H IVP -Nasal O2 to keep SpO2>90% -Bronchodilators Code(s): J44.1 - CHRONIC OBSTRUCTIVE PULMONARY DISEASE W (ACUTE) EXACERBATION (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
[2018-02-08] MEDS: levETIRAcetam 500 MG TABLET (FP) PO SCH ×2 (09:50→21:14)
[2018-02-08] MEDS: DULoxetine HCL 30 MG CAPSULE.DR (FP) PO SCH (09:50)
[2018-02-08] MEDS: LISINOPRIL 20 MG TABLET (FP) PO SCH (09:50)
[2018-02-08] MEDS: NICOTINE 21 MG/24 HOURS TOPICAL PATCH TD SCH (09:50)
[2018-02-08] MEDS: ASPIRIN COATED 81 MG TABLET.EC PO SCH (09:50)
[2018-02-08] MEDS: hydrALAZINE HCL 25 MG TABLET (FP) PO SCH ×2 (09:50→21:19)
[2018-02-08] MEDS: CEFTAZIDIME PENTAHYDRATE 1 GM in DEXTROSE 5%-WATER - 50 ML IVPB SCH ×2 (09:50→21:13)
[2018-02-08] MEDS: BUDESONIDE/FORMETEROL FUMARATE 160/4.5 mcg INHALER IH SCH ×2 (09:51→21:12)
[2018-02-08] MEDS: cloNIDine HCL 0.1 MG TABLET PO SCH ×2 (09:51→21:14)
[2018-02-08] MEDS: GABAPENTIN 300 MG CAPSULE (FP) PO PRN ×2 (09:55→21:20)
[2018-02-08] MEDS ORDERED: INSULIN (NOVOLOG) ASPART 100 UNITS/ML 10ML VIAL ONE ×3 (11:02→21:00)
--- NOTE | 2018-02-08 13:08 | PN ---
Progress Note (short form) - Note Progress Note: Able to expectorate more phlegm. Less SOB than yesterday. Appears more comfortable. Intake & Output 02/05/18 02/06/18 02/07/18 02/08/18 23:59 23:59 23:59 23:59 Intake Total 3340 952 2295 50 Balance 6683 259 6662 50 Weight 230 lb 234 lb 7 oz 234 lb 4 oz 234 lb 2 oz Last Vital Signs Temp Pulse Resp BP Pulse Ox 97.9 F 89 16 156/92 96 02/08/18 10:00 02/08/18 10:00 02/08/18 10:00 02/08/18 10:00 02/08/18 10:00 Active Medications Acetylcysteine (Mucomyst 20 Oral / Inh Use Only*) 400 mg NEB RBID [facility] Last Admin: 02/08/18 08:09 Dose: 400 mg Albuterol Sulfate (Ventolin 0.083% Nebulizer Soln -) 1 amp NEB Q4HWA [facility] Last Admin: 02/08/18 08:10 Dose: 1 amp Aspirin (Ecotrin -) 81 mg PO DAILY [facility] Last Admin: 02/08/18 09:50 Dose: 81 mg Budesonide/Formoterol Fumarate (Symbicort 160/4.5mcg -) 2 puff IH BID [facility] Last Admin: 02/08/18 09:51 Dose: 2 puff Clonidine (Catapres -) 0.1 mg PO BID [facility] Last Admin: 02/08/18 09:51 Dose: 0.1 mg Diltiazem HCl (Cardizem Cd -) 120 mg PO DAILY [facility] Last Admin: 02/08/18 09:50 Dose: 120 mg Docusate Sodium (Colace -) 300 mg PO HS PRN PRN Reason: CONSTIPATION Duloxetine HCl (Cymbalta -) 60 mg PO DAILY [facility] Last Admin: 02/08/18 09:50 Dose: 60 mg Eucalyptus/Menthol/Phenol/Sorbitol (Cepastat Lozenge -) 1 each MM Q4H PRN PRN Reason: SORE THROAT Furosemide (Lasix Injection -) 40 mg IVPUSH BID@0600,1400 [facility] Last Admin: 02/08/18 06:10 Dose: 40 mg Gabapentin (Neurontin -) 300 mg PO TID PRN PRN Reason: PAIN Last Admin: 02/08/18 09:55 Dose: 300 mg Guaifenesin (Diabetic Tussin Dm -) 10 ml PO Q4H PRN PRN Reason: COUGH Last Admin: 02/06/18 09:12 Dose: 10 ml Heparin Sodium (Porcine) (Heparin -) 5,000 unit SQ TID [facility] Last Admin: 02/08/18 06:10 Dose: 5,000 unit Hydralazine HCl (Apresoline -) 25 mg PO BID [facility] Last Admin: 02/08/18 09:50 Dose: 25 mg Ceftazidime 1 gm/ Dextrose 50 mls @ 200 mls/hr IVPB BID [facility]; Protocol Last Admin: 02/08/18 09:50 Dose: 200 mls/hr Insulin Aspart (Novolog Vial Sliding Scale -) 1 vial SQ ACHS [facility]; Protocol Last Admin: 02/08/18 11:02 Dose: 2 units Insulin Aspart (Novolog Mix 70/30 Vial) 22 units SQ BIDAC [facility] Last Admin: 02/08/18 06:11 Dose: Not Given Insulin Detemir (Levemir Vial) 40 units SQ BID@0700,2200 [facility] Last Admin: 02/08/18 06:11 Dose: Not Given Levetiracetam (Keppra -) 1,000 mg PO BID [facility] Last Admin: 02/08/18 09:50 Dose: 1,000 mg Lisinopril (Prinivil) 20 mg PO DAILY [facility] Last Admin: 02/08/18 09:50 Dose: 20 mg Methylprednisolone Sodium Succinate (Solu-Medrol -) 60 mg IVPUSH Q6H-IV [facility] Last Admin: 02/08/18 09:50 Dose: 60 mg Nicotine (Nicoderm Patch -) 21 mg TD DAILY [facility] Last Admin: 02/08/18 09:50 Dose: 21 mg Oxycodone HCl (Roxicodone -) 5 mg PO Q6H PRN PRN Reason: PAIN LEVEL 6-10 Last Admin: 02/08/18 06:15 Dose: 5 mg Phenazopyridine HCl (Pyridium -) 100 mg PO TID PRN PRN Reason: dysuria Last Admin: 02/06/18 21:47 Dose: 100 mg Senna (Senna -) 2 tab PO HS PRN PRN Reason: CONSTIPATION Gen: Less tachypneic Heart: RRR Lung: bilateral rhonchi, less wheezes Abd: soft, nontender Ext: + edema Laboratory Results - last 24 hr 02/07/18 02/07/18 02/08/18 16:54 22:29 06:09 POC Glucometer 307 226 62 Hemoglobin A1c % 02/08/18 02/08/18 06:30 10:58 POC Glucometer 192 Hemoglobin A1c % 9.3 H A/P Acute COPD Exacerbation UTI CAD CHF Pulmonary HTN DM Likely DB Smoker - Can wean medrol tomorrow if stable/improved - inhaled bronchodilators standing and PRN - O2 to keep SpO2 >90% - continue lasix - monitor urine output, creatinine - continue antibiotics - outpt PFTs, PSG - smoking cessation discussed - DVT prophylaxis Dr Cheng
[2018-02-09] MEDS: methylPREDNISolone NA SUCC 40 MG/1 ML VIAL IVPUSH SCH ×3 (02:44→22:59)
[2018-02-09] MEDS: oxyCODONE HCL 5 MG TABLET PO PRN ×3 (03:16→21:07)
[2018-02-09] MEDS: INSULIN (NOVOLOG MIX 70/30) 100 UNITS/ML MDV SQ SCH ×2 (06:02→16:26)
[2018-02-09] MEDS: INSULIN SLIDING SCALE (NOVOLOG) 1 VIAL SQ SCH ×4 (06:02→21:03)
[2018-02-09] MEDS: INSULIN (LEVEMIR) 100 UNITS/ML UNITS SQ SCH ×2 (06:02→21:03)
[2018-02-09] MEDS: FUROSEMIDE 40 MG/4 ML INJECTABLE VIAL IVPUSH SCH ×2 (06:02→14:29)
[2018-02-09] MEDS: HEPARIN NA (PORCINE) 5,000 UNITS/ML 1ML VIAL SQ SCH ×3 (06:02→21:02)
--- NOTE | 2018-02-09 08:07 | PN ---
Progress Note, Physician - Current Medication List Current Medications: Active Medications Acetylcysteine (Mucomyst 20 Oral / Inh Use Only*) 400 mg NEB RBID [facility] Last Admin: 02/08/18 22:30 Dose: 400 mg Albuterol Sulfate (Ventolin 0.083% Nebulizer Soln -) 1 amp NEB Q4HWA [facility] Last Admin: 02/08/18 22:30 Dose: 1 amp Aspirin (Ecotrin -) 81 mg PO DAILY [facility] Last Admin: 02/08/18 09:50 Dose: 81 mg Budesonide/Formoterol Fumarate (Symbicort 160/4.5mcg -) 2 puff IH BID [facility] Last Admin: 02/08/18 21:12 Dose: 2 puff Clonidine (Catapres -) 0.1 mg PO BID [facility] Last Admin: 02/08/18 21:14 Dose: 0.1 mg Diltiazem HCl (Cardizem Cd -) 120 mg PO DAILY [facility] Last Admin: 02/08/18 09:50 Dose: 120 mg Docusate Sodium (Colace -) 300 mg PO HS PRN PRN Reason: CONSTIPATION Duloxetine HCl (Cymbalta -) 60 mg PO DAILY [facility] Last Admin: 02/08/18 09:50 Dose: 60 mg Eucalyptus/Menthol/Phenol/Sorbitol (Cepastat Lozenge -) 1 each MM Q4H PRN PRN Reason: SORE THROAT Furosemide (Lasix Injection -) 40 mg IVPUSH BID@0600,1400 [facility] Last Admin: 02/09/18 06:02 Dose: 40 mg Gabapentin (Neurontin -) 300 mg PO TID PRN PRN Reason: PAIN Last Admin: 02/08/18 21:20 Dose: 300 mg Guaifenesin (Diabetic Tussin Dm -) 10 ml PO Q4H PRN PRN Reason: COUGH Last Admin: 02/06/18 09:12 Dose: 10 ml Heparin Sodium (Porcine) (Heparin -) 5,000 unit SQ TID [facility] Last Admin: 02/09/18 06:02 Dose: 5,000 unit Hydralazine HCl (Apresoline -) 25 mg PO BID [facility] Last Admin: 02/08/18 21:19 Dose: 25 mg Ceftazidime 1 gm/ Dextrose 50 mls @ 200 mls/hr IVPB BID [facility]; Protocol Last Admin: 02/08/18 21:13 Dose: 200 mls/hr Insulin Aspart (Novolog Vial Sliding Scale -) 1 vial SQ ACHS [facility]; Protocol Last Admin: 02/09/18 06:02 Dose: 3 units Insulin Aspart (Novolog Mix 70/30 Vial) 22 units SQ BIDAC [facility] Last Admin: 02/09/18 06:02 Dose: 22 units Insulin Detemir (Levemir Vial) 40 units SQ BID@0700,2200 [facility] Last Admin: 02/09/18 06:02 Dose: 40 units Levetiracetam (Keppra -) 1,000 mg PO BID [facility] Last Admin: 02/08/18 21:14 Dose: 1,000 mg Lisinopril (Prinivil) 20 mg PO DAILY [facility] Last Admin: 02/08/18 09:50 Dose: 20 mg Nicotine (Nicoderm Patch -) 21 mg TD DAILY [facility] Last Admin: 02/08/18 09:50 Dose: 21 mg Oxycodone HCl (Roxicodone -) 5 mg PO Q6H PRN PRN Reason: PAIN 4-6 Last Admin: 02/09/18 03:16 Dose: 5 mg Phenazopyridine HCl (Pyridium -) 100 mg PO TID PRN PRN Reason: dysuria Last Admin: 02/06/18 21:47 Dose: 100 mg Senna (Senna -) 2 tab PO HS PRN PRN Reason: CONSTIPATION - Objective Vital Signs: Vital Signs Temperature 98.0 F 02/09/18 05:12 Pulse Rate 73 02/09/18 05:12 Respiratory Rate 20 02/09/18 05:12 Blood Pressure 135/76 02/09/18 05:12 O2 Sat by Pulse Oximetry (%) 96 02/09/18 02:00 Cardiovascular: Yes: S1, S2 Respiratory: Yes: Rhonchi Gastrointestinal: Yes: Normal Bowel Sounds, Soft Labs: CBC, BMP 02/07/18 09:50 02/07/18 09:50 INR, PTT INR 0.87 (0.83-1.09) 02/03/18 17:25 Assessment/Plan - Problems (1) Congestive heart failure Assessment/Plan: -Cardiology consult -CXR shows congestive changes -Furosemide 40 ivp bid 1st dose now -labd ordered -Daily weights -Nasal O2 PRN to keep SpO2>90% -Low sodium diabetic diet -Echo pending Code(s): I50.9 - HEART FAILURE, UNSPECIFIED (2) COPD exacerbation Assessment/Plan: -Pulmonary consult -Solumedrol 40 Q6H IVP -Nasal O2 to keep SpO2>90% -Bronchodilators Code(s): J44.1 - CHRONIC OBSTRUCTIVE PULMONARY DISEASE W (ACUTE) EXACERBATION (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
[2018-02-09] MEDS: ALBUTEROL SO4 0.083% IH SOL 2.5 MG/3 ML VIAL.NEB. NEB SCH ×4 (08:25→21:15)
[2018-02-09] MEDS: ACETYLCYSTEINE 20% 200MG/ML 4 ML VIAL *FOR ORAL / INH USE ONLY NEB SCH ×2 (08:25→21:00)
[2018-02-09] MEDS ORDERED: PT OWN MED DRAWER 7, Y5N ONE ×4 (09:29→20:47)
[2018-02-09] MEDS: hydrALAZINE HCL 25 MG TABLET (FP) PO SCH ×2 (10:29→21:02)
[2018-02-09] MEDS: DULoxetine HCL 30 MG CAPSULE.DR (FP) PO SCH (10:31)
[2018-02-09] MEDS: ASPIRIN COATED 81 MG TABLET.EC PO SCH (10:31)
[2018-02-09] MEDS: CEFTAZIDIME PENTAHYDRATE 1 GM in DEXTROSE 5%-WATER - 50 ML IVPB SCH ×2 (10:32→22:59)
[2018-02-09] MEDS: levETIRAcetam 500 MG TABLET (FP) PO SCH ×2 (10:32→21:02)
[2018-02-09] MEDS: NICOTINE 21 MG/24 HOURS TOPICAL PATCH TD SCH (10:33)
[2018-02-09] MEDS: LISINOPRIL 20 MG TABLET (FP) PO SCH (10:33)
[2018-02-09] MEDS: BUDESONIDE/FORMETEROL FUMARATE 160/4.5 mcg INHALER IH SCH ×2 (10:34→21:03)
[2018-02-09] MEDS: cloNIDine HCL 0.1 MG TABLET PO SCH ×2 (11:38→21:03)
--- NOTE | 2018-02-09 15:22 | PN ---
Progress Note, Physician History of Present Illness: pulmonary alert,still congested,+ cough - Current Medication List Current Medications: Active Medications Acetylcysteine (Mucomyst 20 Oral / Inh Use Only*) 400 mg NEB RBID [facility] Last Admin: 02/09/18 08:25 Dose: 400 mg Albuterol Sulfate (Ventolin 0.083% Nebulizer Soln -) 1 amp NEB Q4HWA [facility] Last Admin: 02/09/18 08:25 Dose: 1 amp Aspirin (Ecotrin -) 81 mg PO DAILY [facility] Last Admin: 02/09/18 10:31 Dose: 81 mg Budesonide/Formoterol Fumarate (Symbicort 160/4.5mcg -) 2 puff IH BID [facility] Last Admin: 02/09/18 10:34 Dose: 2 puff Clonidine (Catapres -) 0.1 mg PO BID [facility] Last Admin: 02/09/18 11:38 Dose: 0.1 mg Diltiazem HCl (Cardizem Cd -) 120 mg PO DAILY [facility] Last Admin: 02/09/18 10:30 Dose: 120 mg Docusate Sodium (Colace -) 300 mg PO HS PRN PRN Reason: CONSTIPATION Duloxetine HCl (Cymbalta -) 60 mg PO DAILY [facility] Last Admin: 02/09/18 10:31 Dose: 60 mg Eucalyptus/Menthol/Phenol/Sorbitol (Cepastat Lozenge -) 1 each MM Q4H PRN PRN Reason: SORE THROAT Furosemide (Lasix Injection -) 40 mg IVPUSH BID@0600,1400 [facility] Last Admin: 02/09/18 14:29 Dose: 40 mg Gabapentin (Neurontin -) 300 mg PO TID PRN PRN Reason: PAIN Last Admin: 02/08/18 21:20 Dose: 300 mg Guaifenesin (Diabetic Tussin Dm -) 10 ml PO Q4H PRN PRN Reason: COUGH Last Admin: 02/06/18 09:12 Dose: 10 ml Heparin Sodium (Porcine) (Heparin -) 5,000 unit SQ TID [facility] Last Admin: 02/09/18 14:29 Dose: 5,000 unit Hydralazine HCl (Apresoline -) 25 mg PO BID [facility] Last Admin: 02/09/18 10:29 Dose: 25 mg Ceftazidime 1 gm/ Dextrose 50 mls @ 200 mls/hr IVPB BID [facility]; Protocol Last Admin: 02/09/18 10:32 Dose: 200 mls/hr Insulin Aspart (Novolog Vial Sliding Scale -) 1 vial SQ ACHS [facility]; Protocol Last Admin: 02/09/18 11:39 Dose: Not Given Insulin Aspart (Novolog Mix 70/30 Vial) 22 units SQ BIDAC [facility] Last Admin: 02/09/18 06:02 Dose: 22 units Insulin Detemir (Levemir Vial) 40 units SQ BID@0700,2200 [facility] Last Admin: 02/09/18 06:02 Dose: 40 units Levetiracetam (Keppra -) 1,000 mg PO BID [facility] Last Admin: 02/09/18 10:32 Dose: 1,000 mg Lisinopril (Prinivil) 20 mg PO DAILY [facility] Last Admin: 02/09/18 10:33 Dose: 20 mg Methylprednisolone Sodium Succinate (Solu-Medrol -) 60 mg IVPUSH BID [facility] Last Admin: 02/09/18 10:34 Dose: 60 mg Nicotine (Nicoderm Patch -) 21 mg TD DAILY [facility] Last Admin: 02/09/18 10:33 Dose: 21 mg Oxycodone HCl (Roxicodone -) 5 mg PO Q6H PRN PRN Reason: PAIN 4-6 Last Admin: 02/09/18 11:41 Dose: 5 mg Phenazopyridine HCl (Pyridium -) 100 mg PO TID PRN PRN Reason: dysuria Last Admin: 02/06/18 21:47 Dose: 100 mg Senna (Senna -) 2 tab PO HS PRN PRN Reason: CONSTIPATION - Objective Vital Signs: Vital Signs Temperature 99.6 F 02/09/18 13:58 Pulse Rate 84 02/09/18 13:58 Respiratory Rate 20 02/09/18 05:12 Blood Pressure 165/93 02/09/18 13:58 O2 Sat by Pulse Oximetry (%) 96 02/09/18 02:00 Constitutional: Yes: Well Nourished, Calm Eyes: Yes: WNL HENT: Yes: WNL Neck: Yes: WNL Cardiovascular: Yes: Regular Rate and Rhythm, S1, S2 Respiratory: Yes: Wheezes (davina wheezes) Gastrointestinal: Yes: Normal Bowel Sounds, Soft Extremities: Yes: WNL Edema: No Labs: CBC, BMP 02/07/18 09:50 Problem List - Problems (1) ASHD (arteriosclerotic heart disease) Code(s): I25.10 - ATHSCL HEART DISEASE OF [place] CORONARY ARTERY W/O ANG PCTRS (2) COPD exacerbation Code(s): J44.1 - CHRONIC OBSTRUCTIVE PULMONARY DISEASE W (ACUTE) EXACERBATION (3) IBS (irritable bowel syndrome) Code(s): K58.9 - IRRITABLE BOWEL SYNDROME WITHOUT DIARRHEA (4) Tobacco abuse Code(s): Z72.0 - TOBACCO USE (5) Tobacco abuse counseling Code(s): Z71.6 - TOBACCO ABUSE COUNSELING (6) Asthma Code(s): J45.909 - UNSPECIFIED ASTHMA, UNCOMPLICATED Qualifiers: Asthma severity: unspecified severity Asthma persistence: intermittent Asthma complication type: uncomplicated Qualified Code(s): J45.20 - Mild intermittent asthma, uncomplicated (7) Diabetes type 2, controlled Code(s): E11.9 - TYPE 2 DIABETES MELLITUS WITHOUT COMPLICATIONS (8) Hypothyroidism Code(s): E03.9 - HYPOTHYROIDISM, UNSPECIFIED Qualifiers: Hypothyroidism type: acquired Qualified Code(s): E03.9 - Hypothyroidism, unspecified Assessment/Plan IMP COPD EXACERBATION SLOWLY IMPROVING ASHD S/P STENT DM CHF PULMONARY HTN TOBACCO ABUSE LIKELY OSAS PLAN IV STEROIDS SAME DOSE INHALED BRONCHODILATORS O2 ABX DVT PROPHYLAXIS SLEEP SCREEN SMOKING CESSATION COUNSELED CHEST CT LOW DOSE OUTPATIENT FOR LUNG CANCER SCREENING DR PERDUE Problem List - Problems (1) ASHD (arteriosclerotic heart disease) Code(s): I25.10 - ATHSCL HEART DISEASE OF [place] CORONARY ARTERY W/O ANG PCTRS (2) COPD exacerbation Code(s): J44.1 - CHRONIC OBSTRUCTIVE PULMONARY DISEASE W (ACUTE) EXACERBATION (3) IBS (irritable bowel syndrome) Code(s): K58.9 - IRRITABLE BOWEL SYNDROME WITHOUT DIARRHEA (4) Tobacco abuse Code(s): Z72.0 - TOBACCO USE (5) Tobacco abuse counseling Code(s): Z71.6 - TOBACCO ABUSE COUNSELING (6) Asthma Code(s): J45.909 - UNSPECIFIED ASTHMA, UNCOMPLICATED Qualifiers: Asthma severity: unspecified severity Asthma persistence: intermittent Asthma complication type: uncomplicated Qualified Code(s): J45.20 - Mild intermittent asthma, uncomplicated (7) Diabetes type 2, controlled Code(s): E11.9 - TYPE 2 DIABETES MELLITUS WITHOUT COMPLICATIONS
[2018-02-09] MEDS ORDERED: INSULIN (NOVOLOG) ASPART 100 UNITS/ML 10ML VIAL ONE (16:19)
[2018-02-09] MEDS ORDERED: INSULIN (NOVOLOG MIX 70/30) 100 UNITS/ML MDV SQ ONE (18:21)
[2018-02-10] MEDS ORDERED: PT OWN MED DRAWER 7, Y5N ONE ×3 (05:34→21:43)
[2018-02-10] MEDS: HEPARIN NA (PORCINE) 5,000 UNITS/ML 1ML VIAL SQ SCH ×2 (05:38→16:48)
[2018-02-10] MEDS: ALBUTEROL SO4 0.083% IH SOL 2.5 MG/3 ML VIAL.NEB. NEB SCH ×4 (06:00→20:39)
[2018-02-10] MEDS ORDERED: FUROSEMIDE 40 MG TABLET (FP) PO ONE (06:01)
[2018-02-10] MEDS: FUROSEMIDE 40 MG/4 ML INJECTABLE VIAL IVPUSH SCH ×2 (06:24→15:00)
[2018-02-10] MEDS: INSULIN (LEVEMIR) 100 UNITS/ML UNITS SQ SCH ×2 (06:25→21:56)
[2018-02-10] MEDS: INSULIN (NOVOLOG MIX 70/30) 100 UNITS/ML MDV SQ SCH ×2 (06:25→17:16)
[2018-02-10] MEDS: INSULIN SLIDING SCALE (NOVOLOG) 1 VIAL SQ SCH ×4 (06:25→21:55)
[2018-02-10] MEDS: oxyCODONE HCL 5 MG TABLET PO PRN ×2 (06:28→21:54)
[2018-02-10] MEDS: ACETYLCYSTEINE 20% 200MG/ML 4 ML VIAL *FOR ORAL / INH USE ONLY NEB SCH ×2 (07:50→20:39)
--- NOTE | 2018-02-10 08:25 | PN ---
Progress Note, Physician - Current Medication List Current Medications: Active Medications Acetylcysteine (Mucomyst 20 Oral / Inh Use Only*) 400 mg NEB RBID [facility] Last Admin: 02/10/18 07:50 Dose: Not Given Albuterol Sulfate (Ventolin 0.083% Nebulizer Soln -) 1 amp NEB Q4HWA [facility] Last Admin: 02/10/18 06:00 Dose: Not Given Aspirin (Ecotrin -) 81 mg PO DAILY [facility] Last Admin: 02/09/18 10:31 Dose: 81 mg Budesonide/Formoterol Fumarate (Symbicort 160/4.5mcg -) 2 puff IH BID [facility] Last Admin: 02/09/18 21:03 Dose: 2 puff Clonidine (Catapres -) 0.1 mg PO BID [facility] Last Admin: 02/09/18 21:03 Dose: 0.1 mg Diltiazem HCl (Cardizem Cd -) 120 mg PO DAILY [facility] Last Admin: 02/09/18 10:30 Dose: 120 mg Docusate Sodium (Colace -) 300 mg PO HS PRN PRN Reason: CONSTIPATION Duloxetine HCl (Cymbalta -) 60 mg PO DAILY [facility] Last Admin: 02/09/18 10:31 Dose: 60 mg Eucalyptus/Menthol/Phenol/Sorbitol (Cepastat Lozenge -) 1 each MM Q4H PRN PRN Reason: SORE THROAT Furosemide (Lasix Injection -) 40 mg IVPUSH BID@0600,1400 [facility] Last Admin: 02/10/18 06:24 Dose: Not Given Gabapentin (Neurontin -) 300 mg PO TID PRN PRN Reason: PAIN Last Admin: 02/08/18 21:20 Dose: 300 mg Guaifenesin (Diabetic Tussin Dm -) 10 ml PO Q4H PRN PRN Reason: COUGH Last Admin: 02/06/18 09:12 Dose: 10 ml Heparin Sodium (Porcine) (Heparin -) 5,000 unit SQ TID [facility] Last Admin: 02/10/18 05:38 Dose: 5,000 unit Hydralazine HCl (Apresoline -) 25 mg PO BID [facility] Last Admin: 02/09/18 21:02 Dose: 25 mg Ceftazidime 1 gm/ Dextrose 50 mls @ 200 mls/hr IVPB BID [facility]; Protocol Last Admin: 02/09/18 22:59 Dose: Not Given Insulin Aspart (Novolog Vial Sliding Scale -) 1 vial SQ ACHS [facility]; Protocol Last Admin: 02/10/18 06:25 Dose: Not Given Insulin Aspart (Novolog Mix 70/30 Vial) 22 units SQ BIDAC [facility] Last Admin: 02/10/18 06:25 Dose: Not Given Insulin Detemir (Levemir Vial) 40 units SQ BID@0700,2200 [facility] Last Admin: 02/10/18 06:25 Dose: Not Given Levetiracetam (Keppra -) 1,000 mg PO BID [facility] Last Admin: 02/09/18 21:02 Dose: 1,000 mg Lisinopril (Prinivil) 20 mg PO DAILY [facility] Last Admin: 02/09/18 10:33 Dose: 20 mg Methylprednisolone Sodium Succinate (Solu-Medrol -) 60 mg IVPUSH BID [facility] Last Admin: 02/09/18 22:59 Dose: Not Given Nicotine (Nicoderm Patch -) 21 mg TD DAILY [facility] Last Admin: 02/09/18 10:33 Dose: 21 mg Oxycodone HCl (Roxicodone -) 5 mg PO Q6H PRN PRN Reason: PAIN 4-6 Last Admin: 02/10/18 06:28 Dose: 5 mg Phenazopyridine HCl (Pyridium -) 100 mg PO TID PRN PRN Reason: dysuria Last Admin: 02/06/18 21:47 Dose: 100 mg Prednisone (Deltasone -) 60 mg PO ONCE ONE Stop: 02/10/18 08:25 Senna (Senna -) 2 tab PO HS PRN PRN Reason: CONSTIPATION - Objective Vital Signs: Vital Signs Temperature 99.5 F 02/10/18 05:07 Pulse Rate 85 02/10/18 05:07 Respiratory Rate 19 02/10/18 05:07 Blood Pressure 121/64 02/10/18 05:07 O2 Sat by Pulse Oximetry (%) 96 02/10/18 03:00 Cardiovascular: Yes: S1, S2 Respiratory: Yes: On Nasal O2, Rhonchi Gastrointestinal: Yes: Normal Bowel Sounds, Soft Edema: Yes Labs: CBC, BMP 02/07/18 09:50 02/07/18 09:50 INR, PTT INR 0.87 (0.83-1.09) 02/03/18 17:25 Assessment/Plan - Problems (1) Congestive heart failure Assessment/Plan: -Cardiology consult -CXR stat -Furosemide -labs ordered -Daily weights -Nasal O2 PRN to keep SpO2>90% -Low sodium diabetic diet -Echo pending Code(s): I50.9 - HEART FAILURE, UNSPECIFIED (2) COPD exacerbation Assessment/Plan: -Pulmonary consult -Solumedrol 40 Q6H IVP--no iv access--po prednisone -cxr and abg -Nasal O2 to keep SpO2>90% -Bronchodilators Code(s): J44.1 - CHRONIC OBSTRUCTIVE PULMONARY DISEASE W (ACUTE) EXACERBATION (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
[2018-02-10] MEDS ORDERED: predniSONE 20 MG TABLET (UD) PO ONE (08:45)
[2018-02-10] MEDS: levETIRAcetam 500 MG TABLET (FP) PO SCH ×3 (09:30→22:00)
[2018-02-10] MEDS: NICOTINE 21 MG/24 HOURS TOPICAL PATCH TD SCH (09:30)
[2018-02-10] MEDS: ASPIRIN COATED 81 MG TABLET.EC PO SCH (09:30)
[2018-02-10] MEDS: methylPREDNISolone NA SUCC 40 MG/1 ML VIAL IVPUSH SCH (09:31)
[2018-02-10] MEDS: CEFTAZIDIME PENTAHYDRATE 1 GM in DEXTROSE 5%-WATER - 50 ML IVPB SCH ×3 (09:31→21:51)
[2018-02-10] MEDS: BUDESONIDE/FORMETEROL FUMARATE 160/4.5 mcg INHALER IH SCH ×2 (09:32→21:56)
[2018-02-10 09:55] LABS: ALBUMIN 2.4 g/dl (3.4-5.0); ALK PHOS 76 U/L (45-117); ANION GAP 11 MMOL/L (8-16); BILIRUBIN,TOTAL 1.1 mg/dL (0.2-1); BLOOD UREA NITROGEN 24 mg/dL (7-18); CALCIUM 8.4 mg/dL (8.5-10.1); CHLORIDE 86 mmol/L (98-107); CO2 36 mmol/L (21-32); CREATININE 0.5 mg/dL (0.55-1.3); GLUCOSE,RANDOM 86 mg/dL (74-106); POTASSIUM 3.3 mmol/L (3.5-5.1); SGOT/AST 28 U/L (15-37); SGPT/ALT 34 U/L (13-61); SODIUM 132 mmol/L (136-145); TOT PROT 6.4 g/dl (6.4-8.2)
[2018-02-10 10:35] LABS: BASO % 0.3 % (0-2.0); EOS % 0.1 % (0-4.5); HEMATOCRIT 47.4 % (32.4-45.2); HEMOGLOBIN 15.5 GM/dL (10.7-15.3); LYMPH % 6.4 % (8-40); MCH 29.4 pg (25.7-33.7); MCHC 32.6 g/dl (32.0-36.0); MEAN CELL VOLUME 90.2 fl (80-96); MEAN PLT VOLUME 9.4 fl (7.5-11.1); MONO % 4.7 % (3.8-10.2); NEUT % 88.5 % (42.8-82.8); PLATELET COUNT 316 K/MM3 (134-434); RBC 5.25 M/mm3 (3.60-5.2); RDW 13.7 % (11.6-15.6)
[2018-02-10 10:44] LABS: WHITE BLOOD COUNT 31.2 K/mm3 (4.0-10.0)
--- NOTE | 2018-02-10 11:14 | PN ---
Progress Note (short form) - Note Progress Note: Feels like she is detoxing. (+) Nausea. Breathing feels the same. Appears anxious. Intake & Output 02/07/18 02/08/18 02/09/18 02/10/18 23:59 23:59 23:59 23:59 Intake Total 1550 750 775 Balance 1550 750 775 Weight 234 lb 4 oz 234 lb 2 oz 234 lb 4 oz 231 lb 3 oz Last Vital Signs Temp Pulse Resp BP Pulse Ox 99.5 F 85 19 121/64 96 02/10/18 05:07 02/10/18 05:07 02/10/18 05:07 02/10/18 05:07 02/10/18 03:00 Active Medications Acetylcysteine (Mucomyst 20 Oral / Inh Use Only*) 400 mg NEB RBID [facility] Last Admin: 02/10/18 07:50 Dose: Not Given Albuterol Sulfate (Ventolin 0.083% Nebulizer Soln -) 1 amp NEB RQ4H [facility] Aspirin (Ecotrin -) 81 mg PO DAILY [facility] Last Admin: 02/10/18 09:30 Dose: 81 mg Budesonide/Formoterol Fumarate (Symbicort 160/4.5mcg -) 2 puff IH BID [facility] Last Admin: 02/10/18 09:32 Dose: 2 puff Clonidine (Catapres -) 0.1 mg PO BID [facility] Last Admin: 02/09/18 21:03 Dose: 0.1 mg Diltiazem HCl (Cardizem Cd -) 120 mg PO DAILY [facility] Last Admin: 02/10/18 09:29 Dose: 120 mg Docusate Sodium (Colace -) 300 mg PO HS PRN PRN Reason: CONSTIPATION Duloxetine HCl (Cymbalta -) 60 mg PO DAILY [facility] Last Admin: 02/10/18 09:30 Dose: 60 mg Eucalyptus/Menthol/Phenol/Sorbitol (Cepastat Lozenge -) 1 each MM Q4H PRN PRN Reason: SORE THROAT Furosemide (Lasix Injection -) 40 mg IVPUSH BID@0600,1400 [facility] Last Admin: 02/10/18 06:24 Dose: Not Given Gabapentin (Neurontin -) 300 mg PO TID PRN PRN Reason: PAIN Last Admin: 02/08/18 21:20 Dose: 300 mg Guaifenesin (Diabetic Tussin Dm -) 10 ml PO Q4H PRN PRN Reason: COUGH Last Admin: 02/06/18 09:12 Dose: 10 ml Heparin Sodium (Porcine) (Heparin -) 5,000 unit SQ TID [facility] Last Admin: 02/10/18 05:38 Dose: 5,000 unit Hydralazine HCl (Apresoline -) 25 mg PO BID [facility] Last Admin: 02/10/18 09:29 Dose: 25 mg Ceftazidime 1 gm/ Dextrose 50 mls @ 200 mls/hr IVPB BID [facility]; Protocol Last Admin: 02/10/18 09:31 Dose: Not Given Insulin Aspart (Novolog Vial Sliding Scale -) 1 vial SQ ACHS [facility]; Protocol Last Admin: 02/10/18 06:25 Dose: Not Given Insulin Aspart (Novolog Mix 70/30 Vial) 22 units SQ BIDAC [facility] Last Admin: 02/10/18 06:25 Dose: Not Given Insulin Detemir (Levemir Vial) 40 units SQ BID@0700,2200 [facility] Last Admin: 02/10/18 06:25 Dose: Not Given Levetiracetam (Keppra -) 1,000 mg PO BID [facility] Last Admin: 02/10/18 09:30 Dose: 1,000 mg Lisinopril (Prinivil) 20 mg PO DAILY [facility] Last Admin: 02/10/18 09:29 Dose: 20 mg Methylprednisolone Sodium Succinate (Solu-Medrol -) 60 mg IVPUSH BID [facility] Last Admin: 02/10/18 09:31 Dose: Not Given Nicotine (Nicoderm Patch -) 21 mg TD DAILY [facility] Last Admin: 02/10/18 09:30 Dose: 21 mg Ondansetron HCl (Zofran Injection) 4 mg IVPUSH Q6H PRN PRN Reason: NAUSEA Oxycodone HCl (Roxicodone -) 5 mg PO Q6H PRN PRN Reason: PAIN 4-6 Last Admin: 02/10/18 06:28 Dose: 5 mg Pantoprazole Sodium (Protonix Iv) 40 mg IVPUSH BID [facility] Phenazopyridine HCl (Pyridium -) 100 mg PO TID PRN PRN Reason: dysuria Last Admin: 02/06/18 21:47 Dose: 100 mg Senna (Senna -) 2 tab PO HS PRN PRN Reason: CONSTIPATION Gen: Anxious, Less tachypneic Heart: RRR Lung: bilateral rhonchi, no wheezes Abd: soft, nontender Ext: + edema Laboratory Results - last 24 hr 02/09/18 02/09/18 02/09/18 11:21 16:22 20:58 WBC RBC Hgb Hct MCV MCH MCHC RDW Plt Count MPV Absolute Neuts (auto) Neutrophils % Lymphocytes % Monocytes % Eosinophils % Basophils % Nucleated RBC % Sodium Potassium Chloride Carbon Dioxide Anion Gap BUN Creatinine Creat Clearance w eGFR POC Glucometer 112 152 77 Random Glucose Calcium Total Bilirubin AST ALT Alkaline Phosphatase Creatine Kinase Troponin I Total Protein Albumin 02/10/18 02/10/18 02/10/18 05:35 08:45 08:45 WBC 31.2 H* RBC 5.25 H Hgb 15.5 H Hct 47.4 H D MCV 90.2 MCH 29.4 MCHC 32.6 RDW 13.7 Plt Count 316 MPV 9.4 Absolute Neuts (auto) 27.6 H Neutrophils % 88.5 H Lymphocytes % 6.4 L D Monocytes % 4.7 Eosinophils % 0.1 D Basophils % 0.3 Nucleated RBC % 0 Sodium 132 L Potassium 3.3 L Chloride 86 L Carbon Dioxide 36 H Anion Gap 11 BUN 24 H Creatinine 0.5 L Creat Clearance w eGFR > 60 POC Glucometer 87 Random Glucose 86 Calcium 8.4 L Total Bilirubin 1.1 H AST 28 ALT 34 Alkaline Phosphatase 76 Creatine Kinase 81 Troponin I < 0.02 Total Protein 6.4 Albumin 2.4 L A/P Acute COPD Exacerbation UTI CAD CHF Pulmonary HTN DM Likely DB Smoker - Will change to Prednsione - inhaled bronchodilators standing and PRN - O2 to keep SpO2 >90% - lasix - monitor urine output, creatinine - continue antibiotics - outpt PFTs, PSG - smoking cessation discussed - DVT prophylaxis Dr Cheng
[2018-02-10] MEDS: ONDANSETRON 4 MG/2 ML VIAL IVPUSH PRN (11:46)
[2018-02-10] MEDS: PANTOPRAZOLE SODIUM 40 MG VIAL IVPUSH SCH ×2 (11:47→21:55)
[2018-02-10] MEDS: predniSONE 20 MG TABLET (UD) PO SCH (11:49)
[2018-02-10 11:59] LABS: ACANTHOCYTES 0; ANISOCYTOSIS 0; HELMET CELLS 0; HOWELL-JOLLY BODIES 0; MACROCYTOSIS 0; OVALOCYTE 0; PLATELET ESTIMATE NORMAL; ROULEAU 0; SICKELED CELLS 0; TARGET CELLS 0; TEAR DROP CELLS 0; TOXIC GRANULATION 0
--- NOTE | 2018-02-10 12:15 | PN ---
Progress Note, Physician History of Present Illness: Awake, but lethargic Supine in bed Denies dysuria WBC elevated today 31K - Current Medication List Current Medications: Active Medications Acetylcysteine (Mucomyst 20 Oral / Inh Use Only*) 400 mg NEB RBID [facility] Last Admin: 02/10/18 07:50 Dose: Not Given Albuterol Sulfate (Ventolin 0.083% Nebulizer Soln -) 1 amp NEB RQ4H [facility] Aspirin (Ecotrin -) 81 mg PO DAILY [facility] Last Admin: 02/10/18 09:30 Dose: 81 mg Budesonide/Formoterol Fumarate (Symbicort 160/4.5mcg -) 2 puff IH BID [facility] Last Admin: 02/10/18 09:32 Dose: 2 puff Clonidine (Catapres -) 0.1 mg PO BID [facility] Last Admin: 02/10/18 11:47 Dose: 0.1 mg Diltiazem HCl (Cardizem Cd -) 120 mg PO DAILY [facility] Last Admin: 02/10/18 09:29 Dose: 120 mg Docusate Sodium (Colace -) 300 mg PO HS PRN PRN Reason: CONSTIPATION Duloxetine HCl (Cymbalta -) 60 mg PO DAILY [facility] Last Admin: 02/10/18 09:30 Dose: 60 mg Eucalyptus/Menthol/Phenol/Sorbitol (Cepastat Lozenge -) 1 each MM Q4H PRN PRN Reason: SORE THROAT Furosemide (Lasix Injection -) 40 mg IVPUSH BID@0600,1400 [facility] Last Admin: 02/10/18 06:24 Dose: Not Given Gabapentin (Neurontin -) 300 mg PO TID PRN PRN Reason: PAIN Last Admin: 02/08/18 21:20 Dose: 300 mg Guaifenesin (Diabetic Tussin Dm -) 10 ml PO Q4H PRN PRN Reason: COUGH Last Admin: 02/06/18 09:12 Dose: 10 ml Heparin Sodium (Porcine) (Heparin -) 5,000 unit SQ TID [facility] Last Admin: 02/10/18 05:38 Dose: 5,000 unit Hydralazine HCl (Apresoline -) 25 mg PO BID [facility] Last Admin: 02/10/18 09:29 Dose: 25 mg Ceftazidime 1 gm/ Dextrose 50 mls @ 200 mls/hr IVPB BID [facility]; Protocol Last Admin: 02/10/18 09:31 Dose: Not Given Insulin Aspart (Novolog Vial Sliding Scale -) 1 vial SQ ACHS [facility]; Protocol Last Admin: 02/10/18 11:57 Dose: Not Given Insulin Aspart (Novolog Mix 70/30 Vial) 22 units SQ BIDAC [facility] Last Admin: 02/10/18 06:25 Dose: Not Given Insulin Detemir (Levemir Vial) 40 units SQ BID@0700,2200 [facility] Last Admin: 02/10/18 06:25 Dose: Not Given Levetiracetam (Keppra -) 1,000 mg PO BID [facility] Last Admin: 02/10/18 09:30 Dose: 1,000 mg Lisinopril (Prinivil) 20 mg PO DAILY [facility] Last Admin: 02/10/18 09:29 Dose: 20 mg Nicotine (Nicoderm Patch -) 21 mg TD DAILY [facility] Last Admin: 02/10/18 09:30 Dose: 21 mg Ondansetron HCl (Zofran Injection) 4 mg IVPUSH Q6H PRN PRN Reason: NAUSEA Last Admin: 02/10/18 11:46 Dose: 4 mg Oxycodone HCl (Roxicodone -) 5 mg PO Q6H PRN PRN Reason: PAIN 4-6 Last Admin: 02/10/18 06:28 Dose: 5 mg Pantoprazole Sodium (Protonix Iv) 40 mg IVPUSH BID [facility] Last Admin: 02/10/18 11:47 Dose: 40 mg Phenazopyridine HCl (Pyridium -) 100 mg PO TID PRN PRN Reason: dysuria Last Admin: 02/06/18 21:47 Dose: 100 mg Prednisone (Deltasone -) 40 mg PO DAILY [facility] Last Admin: 02/10/18 11:49 Dose: Not Given Senna (Senna -) 2 tab PO HS PRN PRN Reason: CONSTIPATION - Objective Vital Signs: Vital Signs Temperature 99.5 F 02/10/18 05:07 Pulse Rate 85 02/10/18 05:07 Respiratory Rate 19 02/10/18 05:07 Blood Pressure 121/64 02/10/18 05:07 O2 Sat by Pulse Oximetry (%) 96 02/10/18 03:00 Constitutional: Yes: No Distress, Obese Cardiovascular: Yes: Regular Rate and Rhythm, S1, S2 Respiratory: Yes: CTA Bilaterally Gastrointestinal: Yes: Normal Bowel Sounds, Soft. No: Tenderness ...Rectal Exam: Yes: Other (no suprapubic tenderness) Peripheral Pulses WNL: Yes Labs: CBC, BMP 02/10/18 08:45 02/10/18 08:45 INR, PTT INR 0.87 (0.83-1.09) 02/03/18 17:25 Assessment/Plan Recurrent UTI (R) E coli Acute exacerbation COPD Substitute ceftazidime 1gm q12h
--- NOTE | 2018-02-10 14:47 | EKG ---
Test Reason : Blood Pressure : / mmHG Vent. Rate : 097 BPM Atrial Rate : 097 BPM P-R Int : 150 ms QRS Dur : 076 ms QT Int : 362 ms P-R-T Axes : 070 059 052 degrees QTc Int : 459 ms NORMAL SINUS RHYTHM BIATRIAL ENLARGEMENT ABNORMAL ECG WHEN COMPARED WITH ECG OF 07-FEB-2018 09:37, T WAVE INVERSION MORE EVIDENT IN INFERIOR LEADS Confirmed by AMARILIS WILLIS, YAMILE ([id number]) on 02/10/2018 2:46:53 PM Referred By: ABELARDO SHELLEY Confirmed By:YAMILE OLMOS MD
[2018-02-10] MEDS ORDERED: INSULIN (NOVOLOG) ASPART 100 UNITS/ML 10ML VIAL ONE ×2 (16:10→17:29)
[2018-02-10] MEDS: cloNIDine HCL 0.1 MG TABLET PO SCH ×2 (17:00→21:54)
[2018-02-10] MEDS: DULoxetine HCL 30 MG CAPSULE.DR (FP) PO SCH (17:00)
[2018-02-10] MEDS: LISINOPRIL 20 MG TABLET (FP) PO SCH (17:00)
[2018-02-10] MEDS: hydrALAZINE HCL 25 MG TABLET (FP) PO SCH ×2 (17:00→21:54)
--- NOTE | 2018-02-10 21:57 | CON.GI ---
Consult Consult Specialty:: Gastroenterology Referred by:: Dr Medina Reason for Consultation:: Abd pain - History of Present Illness Chief Complaint: Diffuse crampy abdominal pain and diarrhea History of Present Illness: 57F admitted for exacerbation of COPD developed abdominal pain 2 days ago which she describes and generalized and colicky. It is associated with nausea but she has not vomited. Her WBC is > 30K and CT reveals a diffuse colitis. She has many antibiotic exposures and no recent foreign travel. She had an EGD and a colonoscopy with Dr Mao on 09/27/17. The EGD revealed gastritis and duodenitis. The colonoscopy revealed a poor prep. It was done for abdominal pain. She denies a FH of GI cancer or IBD. She tells me that she is very depressed and has bipolar disorder. - History Source History Provided By: Patient Limitations to Obtaining History: Poor Historian - Past Medical History [employer]: Yes: CVA (? pt thinks she may have had one in the past (L facial droop)), Seizure Cardio/Vascular: Yes: CAD (with stents), HTN, Hyperlipdemia, Murmur (tricuspic insufficiency) Pulmonary: Yes: Asthma, COPD Gastrointestinal: Yes: Gastritis, Other ("colitis" mid-April) Hepatobiliary: Yes: Hepatitis C Infectious Disease: Yes: MRSA (R thigh abscess 02/26) Psych: Yes: Addictions, Anxiety, Bipolar, Depression Musculoskeletal: Yes: Chronic low back pain Endocrine: Yes: Diabetes Mellitus - Past Surgical History Past Surgical History: Yes: Appendectomy, Cholecystectomy (laparoscopic), Colonoscopy, Hysterectomy (vaginal), Tonsillectomy, Upper Endoscopy - Alcohol/Substance Use Hx Alcohol Use: No History of Substance Use: reports: Cocaine (crack), Heroin (snorted cocaine and heroin, denies IVDA) - Smoking History Smoking history: Current every day smoker Have you smoked in the past 12 months: Yes Aproximately how many cigarettes per day: 20 - Social History Usual Living Arrangement: With Child ADL: Family Assistance Occupation: disabled Place of : [facility] History of Recent Travel: No Home Medications - Allergies Allergies/Adverse Reactions: Allergies Allergy/AdvReac Type Severity Reaction Status Date / Time No Known Allergies Allergy Verified 02/03/18 16:52 - Home Medications Home Medications: Ambulatory Orders Tiotropium [place] [Spiriva] 18 mcg IH DAILY 12/21/14 Ascorbic Acid [Vitamin C -] 500 mg PO BID #60 tablet 02/15/17 Salmeterol/Fluticasone [Advair 100Mcg/50Mcg -] 1 puff IH BID #1 inhaler metFORMIN HCL [Glucophage -] 500 mg PO BID@0700,1630 #60 tablet 02/15/17 Aspirin Coated [Ecotrin -] 81 mg PO DAILY #30 tablet.ec 06/03/17 Diltiazem Cd [Cardizem Cd -] 120 mg PO DAILY #30 cap.cd.24h 06/03/17 Duloxetine HCl [Cymbalta -] 60 mg PO DAILY #30 capsule. 06/03/17 Lisinopril [Prinivil] 20 mg PO DAILY #30 tablet 06/03/17 cloNIDine HCL [Catapres -] 0.1 mg PO BID #60 tablet 06/03/17 levETIRAcetam [Keppra -] 1,000 mg PO BID #60 tablet 06/03/17 Albuterol 0.083% Nebulizer [place] [Ventolin 0.083% Nebulizer Soln -] 1 neb NEB Q4H PRN #20 vial 12/20/17 Albuterol Sulfate Inhaler - [Ventolin Hfa Inhaler -] 1 - 2 inh PO Q4H PRN #1 inhaler 12/20/17 Docusate Sodium [Colace -] 300 mg PO HS PRN 12/20/17 Gabapentin [Neurontin -] 300 mg PO TID PRN 12/20/17 Sennosides [Senna -] 2 tab PO HS PRN 12/20/17 Insulin Glargine,Hum.rec.anlog [Lantus] 35 unit SQ BID 12/22/17 hydrALAZINE HCL [Apresoline -] 25 mg PO BID 12/22/17 oxyCODONE HCL [Roxicodone -] 5 mg PO Q6H PRN #14 tablet MDD 4 12/24/17 Azithromycin 250 mg PO DAILY #6 tablet 01/25/18 Prednisone [Deltasone] 40 mg PO BID #8 tablet 01/25/18 Cephalexin [Keflex] 500 mg PO BID #14 capsule 01/30/18 Family Disease History - Family Disease History Family Disease History: Diabetes: Mother, Heart Disease: Father ( of AIDS), Brother, Sister, Respiratory: Father, Other: Father, Brother, Sister Review of Systems - Review of Systems Constitutional: reports: Lethargy, Malaise Eyes: reports: No Symptoms HENT: reports: No Symptoms Neck: reports: No Symptoms Cardiovascular: reports: Palpitations Respiratory: reports: Cough, Exercise Intolerance, Wheezing Gastrointestinal: reports: Abdominal Pain, Bloating, Diarrhea, Nausea Genitourinary: reports: Burning, Dysuria Psychiatric: reports: Anxiety, Depression Physical Exam-GI Vital Signs: Vital Signs Temperature 100 F H 02/10/18 18:49 Pulse Rate 107 H 02/10/18 18:49 Respiratory Rate 20 02/10/18 18:49 Blood Pressure 127/63 02/10/18 18:49 O2 Sat by Pulse Oximetry (%) 96 02/10/18 09:00 CBC,CMP WBC 31.2 K/mm3 (4.0-10.0) H* 02/10/18 08:45 RBC 5.25 M/mm3 (3.60-5.2) H 02/10/18 08:45 Hgb 15.5 GM/dL (10.7-15.3) H 02/10/18 08:45 Hct 47.4 % (32.4-45.2) H D 02/10/18 08:45 MCV 90.2 fl (80-96) 02/10/18 08:45 MCH 29.4 pg (25.7-33.7) 02/10/18 08:45 MCHC 32.6 g/dl (32.0-36.0) 02/10/18 08:45 RDW 13.7 % (11.6-15.6) 02/10/18 08:45 Plt Count 316 K/MM3 (134-434) 02/10/18 08:45 MPV 9.4 fl (7.5-11.1) 02/10/18 08:45 Absolute Neuts (auto) 27.6 K/mm3 (1.5-8.0) H 02/10/18 08:45 Neutrophils % 88.5 % (42.8-82.8) H 02/10/18 08:45 Neutrophils % (Manual) 87.0 % (42.8-82.8) H 02/10/18 08:45 Band Neutrophils % 2.0 % 02/10/18 08:45 Lymphocytes % 6.4 % (8-40) L D 02/10/18 08:45 Lymphocytes % (Manual) 9.0 % (8-40) 02/10/18 08:45 Monocytes % 4.7 % (3.8-10.2) 02/10/18 08:45 Monocytes % (Manual) 1 % (3.8-10.2) L 02/10/18 08:45 Eosinophils % 0.1 % (0-4.5) D 02/10/18 08:45 Eosinophils % (Manual) 0.0 % (0-4.5) 02/10/18 08:45 Basophils % 0.3 % (0-2.0) 02/10/18 08:45 Basophils % (Manual) 0.0 % (0-2.0) 02/10/18 08:45 Myelocytes % (Man) 0 % (0-2) 02/10/18 08:45 Promyelocytes % (Man) 0 % (0-2) 02/10/18 08:45 Blast Cells % (Manual) 0 % (0-0) 02/10/18 08:45 Nucleated RBC % 0 % (0-0) 02/10/18 08:45 Metamyelocytes 0 % (0-2) 02/10/18 08:45 Hypochromia 0 02/10/18 08:45 Toxic Granulation 0 02/10/18 08:45 Dohle Bodies 0 02/10/18 08:45 Platelet Estimate Normal 02/10/18 08:45 Polychromasia 0 02/10/18 08:45 Poikilocytosis 0 02/10/18 08:45 Basophilic Stippling 0 02/10/18 08:45 Anisocytosis 0 02/10/18 08:45 Microcytosis 0 02/10/18 08:45 Macrocytosis 0 02/10/18 08:45 Spherocytes 0 02/10/18 08:45 Sickle Cells 0 02/10/18 08:45 Target Cells 0 02/10/18 08:45 Tear Drop Cells 0 02/10/18 08:45 Ovalocytes 0 02/10/18 08:45 Stomatocytes 0 02/10/18 08:45 Helmet Cells 0 02/10/18 08:45 Vargas-Wall Bodies 0 02/10/18 08:45 [place] Rings 0 02/10/18 08:45 [place] Cells 0 02/10/18 08:45 Acanthocytes (Spur) 0 02/10/18 08:45 Rouleaux 0 02/10/18 08:45 Fragmented RBCs 0 02/10/18 08:45 Schistocytes 0 02/10/18 08:45 Sodium 132 mmol/L (136-145) L 02/10/18 08:45 Potassium 3.3 mmol/L (3.5-5.1) L 02/10/18 08:45 Chloride 86 mmol/L (98-107) L 02/10/18 08:45 Carbon Dioxide 36 mmol/L (21-32) H 02/10/18 08:45 Anion Gap 11 MMOL/L (8-16) 02/10/18 08:45 BUN 24 mg/dL (7-18) H 02/10/18 08:45 Creatinine 0.5 mg/dL (0.55-1.3) L 02/10/18 08:45 Creat Clearance w eGFR > 60 (>60) 02/10/18 08:45 POC Glucometer 275 UNITS (80-120) 02/10/18 17:10 Random Glucose 86 mg/dL (74-106) 02/10/18 08:45 Hemoglobin A1c % 9.3 % (4.2-6.3) H 02/08/18 06:30 Lactic Acid 1.1 mmol/L (0.4-2.0) 02/03/18 18:35 Calcium 8.4 mg/dL (8.5-10.1) L 02/10/18 08:45 Phosphorus 4.2 mg/dL (2.5-4.9) 02/04/18 06:00 Magnesium 2.0 mg/dL (1.8-2.4) 02/04/18 06:00 Total Bilirubin 1.1 mg/dL (0.2-1) H 02/10/18 08:45 AST 28 U/L (15-37) 02/10/18 08:45 ALT 34 U/L (13-61) 02/10/18 08:45 Alkaline Phosphatase 76 U/L (45-117) 02/10/18 08:45 Creatine Kinase 81 IU/L (26-192) 02/10/18 08:45 Troponin I < 0.02 ng/ml (0.00-0.05) 02/10/18 08:45 B-Natriuretic Peptide 459.8 pg/ml (5-125) H 02/07/18 09:50 Total Protein 6.4 g/dl (6.4-8.2) 02/10/18 08:45 Albumin 2.4 g/dl (3.4-5.0) L 02/10/18 08:45 CBC,CMP WBC 31.2 K/mm3 (4.0-10.0) H* 02/10/18 08:45 RBC 5.25 M/mm3 (3.60-5.2) H 02/10/18 08:45 Hgb 15.5 GM/dL (10.7-15.3) H 02/10/18 08:45 Hct 47.4 % (32.4-45.2) H D 02/10/18 08:45 MCV 90.2 fl (80-96) 02/10/18 08:45 MCH 29.4 pg (25.7-33.7) 02/10/18 08:45 MCHC 32.6 g/dl (32.0-36.0) 02/10/18 08:45 RDW 13.7 % (11.6-15.6) 02/10/18 08:45 Plt Count 316 K/MM3 (134-434) 02/10/18 08:45 MPV 9.4 fl (7.5-11.1) 02/10/18 08:45 Absolute Neuts (auto) 27.6 K/mm3 (1.5-8.0) H 02/10/18 08:45 Neutrophils % 88.5 % (42.8-82.8) H 02/10/18 08:45 Neutrophils % (Manual) 87.0 % (42.8-82.8) H 02/10/18 08:45 Band Neutrophils % 2.0 % 02/10/18 08:45 Lymphocytes % 6.4 % (8-40) L D 02/10/18 08:45 Lymphocytes % (Manual) 9.0 % (8-40) 02/10/18 08:45 Monocytes % 4.7 % (3.8-10.2) 02/10/18 08:45 Monocytes % (Manual) 1 % (3.8-10.2) L 02/10/18 08:45 Eosinophils % 0.1 % (0-4.5) D 02/10/18 08:45 Eosinophils % (Manual) 0.0 % (0-4.5) 02/10/18 08:45 Basophils % 0.3 % (0-2.0) 02/10/18 08:45 Basophils % (Manual) 0.0 % (0-2.0) 02/10/18 08:45 Myelocytes % (Man) 0 % (0-2) 02/10/18 08:45 Promyelocytes % (Man) 0 % (0-2) 02/10/18 08:45 Blast Cells % (Manual) 0 % (0-0) 02/10/18 08:45 Nucleated RBC % 0 % (0-0) 02/10/18 08:45 Metamyelocytes 0 % (0-2) 02/10/18 08:45 Hypochromia 0 02/10/18 08:45 Toxic Granulation 0 02/10/18 08:45 Dohle Bodies 0 02/10/18 08:45 Platelet Estimate Normal 02/10/18 08:45 Polychromasia 0 02/10/18 08:45 Poikilocytosis 0 02/10/18 08:45 Basophilic Stippling 0 02/10/18 08:45 Anisocytosis 0 02/10/18 08:45 Microcytosis 0 02/10/18 08:45 Macrocytosis 0 02/10/18 08:45 Spherocytes 0 02/10/18 08:45 Sickle Cells 0 02/10/18 08:45 Target Cells 0 02/10/18 08:45 Tear Drop Cells 0 02/10/18 08:45 Ovalocytes 0 02/10/18 08:45 Stomatocytes 0 02/10/18 08:45 Helmet Cells 0 02/10/18 08:45 Vargas-Wall Bodies 0 02/10/18 08:45 [place] Rings 0 02/10/18 08:45 [place] Cells 0 02/10/18 08:45 Acanthocytes (Spur) 0 02/10/18 08:45 Rouleaux 0 02/10/18 08:45 Fragmented RBCs 0 02/10/18 08:45 Schistocytes 0 02/10/18 08:45 Sodium 132 mmol/L (136-145) L 02/10/18 08:45 Potassium 3.3 mmol/L (3.5-5.1) L 02/10/18 08:45 Chloride 86 mmol/L (98-107) L 02/10/18 08:45 Carbon Dioxide 36 mmol/L (21-32) H 02/10/18 08:45 Anion Gap 11 MMOL/L (8-16) 02/10/18 08:45 BUN 24 mg/dL (7-18) H 02/10/18 08:45 Creatinine 0.5 mg/dL (0.55-1.3) L 02/10/18 08:45 Creat Clearance w eGFR > 60 (>60) 02/10/18 08:45 POC Glucometer 275 UNITS (80-120) 02/10/18 17:10 Random Glucose 86 mg/dL (74-106) 02/10/18 08:45 Hemoglobin A1c % 9.3 % (4.2-6.3) H 02/08/18 06:30 Lactic Acid 1.1 mmol/L (0.4-2.0) 02/03/18 18:35 Calcium 8.4 mg/dL (8.5-10.1) L 02/10/18 08:45 Phosphorus 4.2 mg/dL (2.5-4.9) 02/04/18 06:00 Magnesium 2.0 mg/dL (1.8-2.4) 02/04/18 06:00 Total Bilirubin 1.1 mg/dL (0.2-1) H 02/10/18 08:45 AST 28 U/L (15-37) 02/10/18 08:45 ALT 34 U/L (13-61) 02/10/18 08:45 Alkaline Phosphatase 76 U/L (45-117) 02/10/18 08:45 Creatine Kinase 81 IU/L (26-192) 02/10/18 08:45 Troponin I < 0.02 ng/ml (0.00-0.05) 02/10/18 08:45 B-Natriuretic Peptide 459.8 pg/ml (5-125) H 02/07/18 09:50 Total Protein 6.4 g/dl (6.4-8.2) 02/10/18 08:45 Albumin 2.4 g/dl (3.4-5.0) L 02/10/18 08:45 Constitutional: Yes: Anxious Eyes: Yes: Conjunctiva Clear HENT: Yes: Atraumatic Neck: Yes: Supple Cardiovascular: Yes: Regular Rate and Rhythm, Tachycardia Respiratory: Yes: Rhonchi Gastrointestinal Inspection: Yes: Scars (oblique RLQ and laparoscopic incisions) ...Auscultate: Yes: Hyperactive Bowel Sounds ...Palpate: Yes: Soft, Tenderness (diffuse nonlocalizing tenderness, no rebound) ...Rectal Exam: Yes: Guaiac Positive (loss guaiac positive stool) Labs: CBC, BMP 02/10/18 08:45 02/10/18 08:45 INR, PTT INR 0.87 (0.83-1.09) 02/03/18 17:25 Imaging - Results Cat Scan: Report Reviewed ( Study Date: 10-Feb-2018 14:52 Leatha Banerjee Name: STERLING THOMPSON DEPARTMENT OF RADIOLOGY Phys: Maria C Medina MD : 1960 Age: 57 Sex: F [facility] Acct: [id number] Loc: [address] Exam Date: 02/10/18 Status: [place] [address] Unit Number: [id number] EXAM#: TYPE/EXAM: RESULT: [id number] CT/ABDOMEN PELVIS CT WITH CONTR Abdomen and pelvis CT (with intravenous contrast) Clinical information given: abdominal pain Multiplanar imaging was performed following the intravenous administration of nonionic contrast. As requested enteric contrast was not administered. In comparison to a prior CT exam of interval development of continuous concentric wall edema is noted involving the colon with principal involvement from the mid transverse segment through the rectum. There is also probable mild involvement of the right colon. Associated mild pericolonic edema is seen. No gross small bowel pathology is identified. No evidence of pneumoperitoneum, abscess, free intraperitoneal fluid or bowel obstruction. Status post cholecystectomy. The liver, spleen, pancreas, adrenal glands and kidneys demonstrate no obvious pathology. There is no aortic aneurysm. No gross lymphadenopathy is noted. Status post hysterectomy. The visualized osseous structures demonstrate no obvious CT evidence of acute abnormality. Impression: Acute colitis is identified as noted above. Reported By: Santos Pizarro MD 02/10/18 163 Technologist: Ralph Gilliam Transcribed Date/Time: 02/10/181632 Hospice Volunteer Coordinator: Santos Pizarro Printed Date/Time: By: Signed by: Santos Pizarro Signed on: 10-Feb-2018 16:35) Problem List - Problems (1) Abdominal pain Assessment/Plan: I believe that Sterling's pain , diarrhea and marked leucocytosis are due to C diff colitis as is supported by the CT finding of a diffuse colitis. She had C diff in 05/30. I will order stool to confirm but cannot wait for the result and will start Vancomycin po tonight as she is at risk of perforating. Code(s): R10.9 - UNSPECIFIED ABDOMINAL PAIN Qualifiers: Abdominal location: generalized (2) Colitis Code(s): K52.9 - NONINFECTIVE GASTROENTERITIS AND COLITIS, UNSPECIFIED (3) Heroin abuse Code(s): F11.10 - OPIOID ABUSE, UNCOMPLICATED (4) Diabetes mellitus with hyperosmolarity Code(s): E11.00 - TYPE 2 DIAB W HYPROSM W/O NONKET HYPRGLY-HYPROS COMA (NKHHC) (5) ASHD (arteriosclerotic heart disease) Code(s): I25.10 - ATHSCL HEART DISEASE OF [place] CORONARY ARTERY W/O ANG PCTRS (6) COPD exacerbation Code(s): J44.1 - CHRONIC OBSTRUCTIVE PULMONARY DISEASE W (ACUTE) EXACERBATION (7) Cocaine abuse Code(s): F14.10 - COCAINE ABUSE, UNCOMPLICATED (8) Diarrhea Code(s): R19.7 - DIARRHEA, UNSPECIFIED Qualifiers: Diarrhea type: infectious Qualified Code(s): A09 - Infectious gastroenteritis and colitis, unspecified (9) Leukocytosis Code(s): D72.829 - ELEVATED WHITE BLOOD CELL COUNT, UNSPECIFIED (10) Bipolar II disorder Code(s): F31.81 - BIPOLAR II DISORDER (11) Hepatitis C Assessment/Plan: Will check PCR as Sterling tells me that she was treated. Code(s): B19.20 - UNSPECIFIED VIRAL HEPATITIS C WITHOUT HEPATIC COMA Qualifiers: Viral hepatitis chronicity: unspecified Hepatic coma status: without hepatic coma Qualified Code(s): B19.20 - Unspecified viral hepatitis C without hepatic coma (12) C. difficile colitis Code(s): A04.72 - ENTEROCOLITIS D/T CLOSTRIDIUM DIFFICILE, NOT SPCF RECUR Assessment/Plan Clostridia difficile colitis Will start Vancomycin Will assess HCV status
[2018-02-11] MEDS: VANCOMYCIN 250 MG/5 ML ORAL SOLUTION PO SCH ×4 (00:19→17:05)
[2018-02-11] MEDS: ONDANSETRON 4 MG/2 ML VIAL IVPUSH PRN ×2 (03:57→09:35)
[2018-02-11] MEDS ORDERED: ACETAMINOPHEN 325 MG TABLET (FP) PO ONE (04:06)
[2018-02-11] MEDS ORDERED: ACETAMINOPHEN 325 MG TABLET (FP) ONE (04:15)
[2018-02-11] MEDS: oxyCODONE HCL 5 MG TABLET PO PRN ×2 (04:32→09:38)
[2018-02-11] MEDS: FUROSEMIDE 40 MG/4 ML INJECTABLE VIAL IVPUSH SCH ×2 (05:57→13:46)
[2018-02-11] MEDS: INSULIN (NOVOLOG MIX 70/30) 100 UNITS/ML MDV SQ SCH ×2 (06:03→17:04)
[2018-02-11] MEDS: INSULIN (LEVEMIR) 100 UNITS/ML UNITS SQ SCH ×2 (06:04→21:06)
[2018-02-11] MEDS: INSULIN SLIDING SCALE (NOVOLOG) 1 VIAL SQ SCH ×4 (06:05→21:07)
[2018-02-11] MEDS: ALBUTEROL SO4 0.083% IH SOL 2.5 MG/3 ML VIAL.NEB. NEB SCH ×4 (07:47→20:51)
[2018-02-11] MEDS: ACETYLCYSTEINE 20% 200MG/ML 4 ML VIAL *FOR ORAL / INH USE ONLY NEB SCH ×2 (07:47→20:51)
[2018-02-11 08:59] LABS: BASO % 0.4 % (0-2.0); HEMATOCRIT 50.5 % (32.4-45.2); HEMOGLOBIN 16.2 GM/dL (10.7-15.3); LYMPH % 2.3 % (8-40); MCH 28.7 pg (25.7-33.7); MCHC 32.1 g/dl (32.0-36.0); MEAN CELL VOLUME 89.5 fl (80-96); MEAN PLT VOLUME 9.7 fl (7.5-11.1); MONO % 3.7 % (3.8-10.2); NEUT % 93.6 % (42.8-82.8); PLATELET COUNT 310 K/MM3 (134-434); RBC 5.64 M/mm3 (3.60-5.2); RDW 14.2 % (11.6-15.6)
[2018-02-11 09:02] LABS: WHITE BLOOD COUNT 37.1 K/mm3 (4.0-10.0)
[2018-02-11 09:35] LABS: ALBUMIN 2.1 g/dl (3.4-5.0); ALK PHOS 87 U/L (45-117); AMYLASE 70 U/L (25-115); ANION GAP 17 MMOL/L (8-16); BILIRUBIN,TOTAL 1.4 mg/dL (0.2-1); BLOOD UREA NITROGEN 23 mg/dL (7-18); CALCIUM 8.3 mg/dL (8.5-10.1); CHLORIDE 78 mmol/L (98-107); CO2 34 mmol/L (21-32); CREATININE 0.6 mg/dL (0.55-1.3); GLUCOSE,RANDOM 241 mg/dL (74-106); LDH 380 U/L (84-246); SGOT/AST 24 U/L (15-37); SGPT/ALT 31 U/L (13-61); SODIUM 129 mmol/L (136-145); TOT PROT 5.9 g/dl (6.4-8.2)
--- NOTE | 2018-02-11 09:45 | PN ---
Progress Note, Physician History of Present Illness: c/o abdominal pain - Current Medication List Current Medications: Active Medications Acetylcysteine (Mucomyst 20 Oral / Inh Use Only*) 400 mg NEB RBID [facility] Last Admin: 02/11/18 07:47 Dose: Not Given Albuterol Sulfate (Ventolin 0.083% Nebulizer Soln -) 1 amp NEB RQ4H [facility] Last Admin: 02/11/18 07:47 Dose: Not Given Aspirin (Ecotrin -) 81 mg PO DAILY [facility] Last Admin: 02/09/18 10:31 Dose: 81 mg Budesonide/Formoterol Fumarate (Symbicort 160/4.5mcg -) 2 puff IH BID [facility] Last Admin: 02/10/18 21:56 Dose: 2 puff Clonidine (Catapres -) 0.1 mg PO BID [facility] Last Admin: 02/10/18 21:54 Dose: 0.1 mg Diltiazem HCl (Cardizem Cd -) 120 mg PO DAILY [facility] Last Admin: 02/10/18 17:00 Dose: 120 mg Docusate Sodium (Colace -) 300 mg PO HS PRN PRN Reason: CONSTIPATION Duloxetine HCl (Cymbalta -) 60 mg PO DAILY [facility] Last Admin: 02/10/18 17:00 Dose: 60 mg Eucalyptus/Menthol/Phenol/Sorbitol (Cepastat Lozenge -) 1 each MM Q4H PRN PRN Reason: SORE THROAT Furosemide (Lasix Injection -) 40 mg IVPUSH BID@0600,1400 [facility] Last Admin: 02/11/18 05:57 Dose: 40 mg Gabapentin (Neurontin -) 300 mg PO TID PRN PRN Reason: PAIN Last Admin: 02/08/18 21:20 Dose: 300 mg Guaifenesin (Diabetic Tussin Dm -) 10 ml PO Q4H PRN PRN Reason: COUGH Last Admin: 02/06/18 09:12 Dose: 10 ml Hydralazine HCl (Apresoline -) 25 mg PO BID [facility] Last Admin: 02/10/18 21:54 Dose: 25 mg Ceftazidime 1 gm/ Dextrose 50 mls @ 200 mls/hr IVPB BID [facility]; Protocol Last Admin: 02/10/18 21:51 Dose: 200 mls/hr Insulin Aspart (Novolog Vial Sliding Scale -) 1 vial SQ ACHS [facility]; Protocol Last Admin: 02/11/18 06:05 Dose: 4 units Insulin Aspart (Novolog Mix 70/30 Vial) 22 units SQ BIDAC [facility] Last Admin: 02/11/18 06:03 Dose: 22 units Insulin Detemir (Levemir Vial) 40 units SQ BID@0700,2200 [facility] Last Admin: 02/11/18 06:04 Dose: Not Given Levetiracetam (Keppra -) 1,000 mg PO BID [facility] Last Admin: 02/10/18 22:00 Dose: 1,000 mg Lisinopril (Prinivil) 20 mg PO DAILY [facility] Last Admin: 02/10/18 17:00 Dose: 20 mg Nicotine (Nicoderm Patch -) 21 mg TD DAILY [facility] Last Admin: 02/10/18 09:30 Dose: 21 mg Ondansetron HCl (Zofran Injection) 4 mg IVPUSH Q6H PRN PRN Reason: NAUSEA Last Admin: 02/11/18 09:35 Dose: 4 mg Oxycodone HCl (Roxicodone -) 5 mg PO Q6H PRN PRN Reason: PAIN 4-6 Last Admin: 02/11/18 09:38 Dose: 5 mg Pantoprazole Sodium (Protonix Iv) 40 mg IVPUSH BID [facility] Last Admin: 02/10/18 21:55 Dose: 40 mg Phenazopyridine HCl (Pyridium -) 100 mg PO TID PRN PRN Reason: dysuria Last Admin: 02/06/18 21:47 Dose: 100 mg Prednisone (Deltasone -) 40 mg PO DAILY [facility] Last Admin: 02/10/18 11:49 Dose: Not Given Senna (Senna -) 2 tab PO HS PRN PRN Reason: CONSTIPATION Vancomycin HCl (Vancomycin Oral Solution) 125 mg PO Q6HPO [facility] Last Admin: 02/11/18 06:00 Dose: 125 mg - Objective Vital Signs: Vital Signs Temperature 98.6 F 02/11/18 06:27 Pulse Rate 91 H 02/11/18 06:27 Respiratory Rate 20 02/11/18 06:27 Blood Pressure 134/68 02/11/18 06:27 O2 Sat by Pulse Oximetry (%) 94 L 02/11/18 04:00 Cardiovascular: Yes: S1, S2 Respiratory: Yes: CTA Bilaterally, On Nasal O2 Gastrointestinal: Yes: Normal Bowel Sounds, Soft, Abdomen, Obese, Tenderness. 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
--- NOTE | 2018-02-11 09:48 | RAPID ---
Physical Examination Vital Signs: Vital Signs Temperature 98.6 F 02/11/18 06:27 Pulse Rate 91 H 02/11/18 06:27 Respiratory Rate 20 02/11/18 06:27 Blood Pressure 134/68 02/11/18 06:27 O2 Sat by Pulse Oximetry (%) 94 L 02/11/18 04:00 Findings/Remarks: Rapid response called now, pt on stretcher in hallway unresponsive. Pt was about to be transferred for chest brian then became unresponsive. Not responding verbally, responding to pain. Left upper arm not moving, stroke code activated. 10 minutes later pt started to verbally respond to some questioning, abdominal pain endorses. started using lue. Will transfer to icu, primary care doctor at bedside. VS following 151/76, oxygen 95%, HR 111, Sugar 243. Labs: CBC, BMP 02/11/18 06:50 02/11/18 06:50
[2018-02-11 09:50] LABS: POTASSIUM 2.6 mmol/L (3.5-5.1)
[2018-02-11] MEDS ORDERED: SODIUM CHLORIDE 1,000 ML IV SCH ×2 (10:00→20:28)
[2018-02-11] MEDS: BUDESONIDE/FORMETEROL FUMARATE 160/4.5 mcg INHALER IH SCH ×2 (10:20→21:08)
[2018-02-11 11:22] LABS: ARTERIAL BLD GAS O2 SATURATION 96.4 % (90-98.9); ARTERIAL BLOOD GAS PCO2 38.6 mmHg (35-45); ARTERIAL BLOOD GAS PO2 75.9 mmHg (80-100)
[2018-02-11 11:28] LABS: ALLENS TEST POSITIVE
[2018-02-11] MEDS: KCL 10 MEQ IVPB 10 MEQ/100 ML INFUS.BAG IVPB SCH ×3 (11:30→13:58)
[2018-02-11 11:32] LABS: ARTERIAL BLOOD GAS pH 7.62 (7.35-7.45)
--- NOTE | 2018-02-11 11:58 | PN ---
Progress Note (short form) - Note Progress Note: Patient waiting to go to xray when suddenly became unresponsive--pt with eyes open but not responding to command vital stable bgm [address] of head neuro icu monitoring
[2018-02-11] MEDS: hydrALAZINE HCL 25 MG TABLET (FP) PO SCH ×2 (12:18→21:05)
[2018-02-11] MEDS: cloNIDine HCL 0.1 MG TABLET PO SCH ×2 (12:19→21:05)
[2018-02-11] MEDS: DULoxetine HCL 30 MG CAPSULE.DR (FP) PO SCH (12:19)
[2018-02-11] MEDS: LISINOPRIL 20 MG TABLET (FP) PO SCH (12:20)
[2018-02-11] MEDS: ASPIRIN COATED 81 MG TABLET.EC PO SCH ×2 (12:20→20:50)
[2018-02-11] MEDS: predniSONE 20 MG TABLET (UD) PO SCH (12:20)
[2018-02-11] MEDS: levETIRAcetam 500 MG TABLET (FP) PO SCH (12:20)
[2018-02-11] MEDS: PANTOPRAZOLE SODIUM 40 MG VIAL IVPUSH SCH ×2 (12:40→21:08)
[2018-02-11] MEDS ORDERED: ACETAMINOPHEN 1000 MG/100 ML VIAL (NON FORMULARY) IVPB PRN (12:45)
--- NOTE | 2018-02-11 13:13 | CONSULT ---
Consultation: REQUESTING PROVIDER: CONSULT REQUEST: We have been asked to medically evaluate this patient for ICU monitoring. HISTORY OF PRESENT ILLNESS: 57 yo Female with PMH CAD, CHF, HTN, HLD, COPD, IDDM admitted to hospital with SOB, cough productive of greenish/yellow fluids, fevers, chills for 1-2 weeks. Pt being tx for COPD exacerbation Earlier today, rapid response was called, pt was on stretcher in hallway unresponsive. Pt was about to be transferred for CXR then became unresponsive. At that time was not responding verbal but was responding to pain. Left upper arm not moving, stroke code activated. 10 minutes later pt started to verbally respond to some questioning and endorsed abdominal pain. Pt was transferred to ICU for further monitoring. 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 In the ICU pt refusing meds, vomiting, pulling at IV site. Denies cp, [place]DR[place]ON, sob, urinary sxs REVIEW OF SYSTEMS: as per HPI PHYSICAL EXAMINATION Vital Signs - 24 hr 02/10/18 02/10/18 02/10/18 14:45 18:49 20:00 Temperature 100.2 F H 100 F H Pulse Rate 110 H 107 H Respiratory 20 20 20 Rate Blood Pressure 145/92 127/63 O2 Sat by Pulse 96 Oximetry (%) 02/10/18 02/11/18 02/11/18 22:00 04:00 06:27 Temperature 99.9 F H 98.6 F Pulse Rate 102 H 91 H Respiratory 20 20 20 Rate Blood Pressure 132/68 134/68 O2 Sat by Pulse 94 L Oximetry (%) 02/11/18 02/11/18 10:34 11:55 Temperature 101 F H Pulse Rate 92 H 109 H Respiratory 22 H 22 H Rate Blood Pressure 139/96 156/83 O2 Sat by Pulse Oximetry (%) GENERAL: AOX3 NAD HEAD: NCAT EYES: Pupils equal, round and reactive to light, extraocular movements intact, sclera anicteric, conjunctiva clear. No lid lag. EARS, NOSE, THROAT: MMM NECK: Normal range of motion, supple without lymphadenopathy, JVD, or masses. LUNGS: CTAB HEART: RRR, normal S1 and S2 without murmur, rub or gallop. ABDOMEN: refusing exam MUSCULOSKELETAL: Normal range of motion at all joints. No bony deformities or tenderness. UPPER EXTREMITIES: 2+ pulses, warm, well-perfused. No cyanosis. No clubbing. Cap refill <2 seconds. No peripheral edema. LOWER EXTREMITIES: 2+ pulses, warm, well-perfused. No calf tenderness. No peripheral edema. NEUROLOGICAL: Cranial nerves II-XII intact. Normal speech. SKIN: Warm, dry, normal turgor, no rashes or lesions noted. Laboratory Results - last 24 hr 02/10/18 02/10/18 02/11/18 17:10 21:48 05:56 WBC RBC Hgb Hct MCV MCH MCHC RDW Plt Count MPV Absolute Neuts (auto) Neutrophils % Lymphocytes % Monocytes % Eosinophils % Basophils % Nucleated RBC % Puncture Site ABG pH ABG pCO2 at Pt Temp ABG pO2 at Pt Temp ABG HCO3 ABG O2 Sat (Measured) ABG O2 Content ABG Base Excess Pineda Test O2 Delivery Device Oxygen Flow Rate Sodium Potassium Chloride Carbon Dioxide Anion Gap BUN Creatinine Creat Clearance w eGFR POC Glucometer 275 287 287 Random Glucose Calcium Total Bilirubin AST ALT Alkaline Phosphatase LD Total C-Reactive Protein Total Protein Albumin Total Amylase 02/11/18 02/11/18 02/11/18 06:50 06:50 09:46 WBC 37.1 H* RBC 5.64 H Hgb 16.2 H Hct 50.5 H MCV 89.5 MCH 28.7 MCHC 32.1 RDW 14.2 Plt Count 310 MPV 9.7 Absolute Neuts (auto) 34.7 H Neutrophils % 93.6 H Lymphocytes % 2.3 L D Monocytes % 3.7 L Eosinophils % 0.0 D Basophils % 0.4 Nucleated RBC % 0 Puncture Site ABG pH ABG pCO2 at Pt Temp ABG pO2 at Pt Temp ABG HCO3 ABG O2 Sat (Measured) ABG O2 Content ABG Base Excess Pineda Test O2 Delivery Device Oxygen Flow Rate Sodium 129 L Potassium 2.6 L* Chloride 78 L Carbon Dioxide 34 H Anion Gap 17 H BUN 23 H Creatinine 0.6 Creat Clearance w eGFR > 60 POC Glucometer 243 Random Glucose 241 H Calcium 8.3 L Total Bilirubin 1.4 H AST 24 ALT 31 Alkaline Phosphatase 87 LD Total 380 H C-Reactive Protein 12.8 H Total Protein 5.9 L Albumin 2.1 L Total Amylase 70 02/11/18 11:15 WBC RBC Hgb Hct MCV MCH MCHC RDW Plt Count MPV Absolute Neuts (auto) Neutrophils % Lymphocytes % Monocytes % Eosinophils % Basophils % Nucleated RBC % Puncture Site Right radial ABG pH 7.62 H* D ABG pCO2 at Pt Temp 38.6 ABG pO2 at Pt Temp 75.9 L ABG HCO3 39.7 H ABG O2 Sat (Measured) 96.4 ABG O2 Content 21.5 ABG Base Excess 16.0 H* Pineda Test Positive O2 Delivery Device Nasal Oxygen Flow Rate 4l Sodium Potassium Chloride Carbon Dioxide Anion Gap BUN Creatinine Creat Clearance w eGFR POC Glucometer Random Glucose Calcium Total Bilirubin AST ALT Alkaline Phosphatase LD Total C-Reactive Protein Total Protein Albumin Total Amylase Active Medications Generic Name Dose Route Start Last Admin Trade Name Freq PRN Reason Stop Dose Admin Acetaminophen 1,000 mg 02/11/18 12:45 Ofirmev Injection - IVPB Q6H PRN PAIN LEVEL 6-10 Acetylcysteine 400 mg 02/06/18 08:00 02/11/18 07:47 Mucomyst 20 Oral / Inh Use Only* NEB Not Given RBID ILYA Albuterol Sulfate 1 amp 02/10/18 09:00 02/11/18 11:34 Ventolin 0.083% Nebulizer Soln - NEB 1 amp RQ4H ILYA Administration Aspirin 81 mg 02/04/18 10:00 02/11/18 12:20 Ecotrin - PO Not Given DAILY ILYA Budesonide/Formoterol Fumarate 2 puff 02/04/18 22:00 02/10/18 21:56 Symbicort 160/4.5mcg - IH 2 puff BID ILYA Administration Clonidine 0.1 mg 02/03/18 22:00 02/11/18 12:19 Catapres - PO Not Given BID ILYA Diltiazem HCl 120 mg 02/04/18 10:00 02/11/18 12:18 Cardizem Cd - PO Not Given DAILY ILYA Docusate Sodium 300 mg 02/03/18 21:13 Colace - PO HS PRN CONSTIPATION Duloxetine HCl 60 mg 02/04/18 10:00 02/11/18 12:19 Cymbalta - PO Not Given DAILY ILYA Eucalyptus/Menthol/Phenol/Sorbitol 1 each 02/05/18 15:07 Cepastat Lozenge - MM Q4H PRN SORE THROAT Furosemide 40 mg 02/07/18 14:00 02/11/18 05:57 Lasix Injection - IVPUSH 40 mg BID@0600,1400 ILYA Administration Gabapentin 300 mg 02/03/18 21:13 02/08/18 21:20 Neurontin - PO 300 mg TID PRN Administration PAIN Guaifenesin 10 ml 02/05/18 15:07 02/06/18 09:12 Diabetic Tussin Dm - PO 10 ml Q4H PRN Administration COUGH Hydralazine HCl 25 mg 02/03/18 22:00 02/11/18 12:18 Apresoline - PO Not Given BID [facility] Ceftazidime 1 gm/ Dextrose 50 mls @ 200 mls/hr 02/07/18 22:00 02/10/18 21:51 IVPB 200 mls/hr BID ILYA Administration Protocol Sodium Chloride 1,000 mls @ 42 mls/hr 02/11/18 10:00 02/11/18 11:00 Normal Saline - IV 42 mls/hr ASDIR ILYA Administration Potassium Chloride 10 meq in 100 mls @ 100 mls/hr 02/11/18 11:00 02/11/18 12: 39 Potassium Chloride 10 Meq Premix Ivpb - IVPB 02/11/18 13:59 100 mls/hr Q60M [facility] Administration Insulin Aspart 1 vial 02/04/18 07:00 02/11/18 12:48 Novolog Vial Sliding Scale - SQ Not Given ACHS [facility] Protocol Insulin Aspart 22 units 02/08/18 07:00 02/11/18 06:03 Novolog Mix 70/30 Vial SQ 22 units BIDAC [facility] Administration Insulin Detemir 40 units 02/05/18 14:08 02/11/18 06:04 Levemir Vial SQ Not Given BID@0700,2200 [facility] Levetiracetam 1,000 mg 02/03/18 22:00 02/11/18 12:20 Keppra - PO Not Given BID [facility] Lisinopril 20 mg 02/04/18 10:00 02/11/18 12:20 Prinivil PO Not Given DAILY [facility] Nicotine 21 mg 02/05/18 10:00 02/10/18 09:30 Nicoderm Patch - TD 21 mg DAILY [facility] Administration Ondansetron HCl 4 mg 02/10/18 10:08 02/11/18 09:35 Zofran Injection IVPUSH 4 mg Q6H PRN Administration NAUSEA Oxycodone HCl 5 mg 02/08/18 18:05 02/11/18 09:38 Roxicodone - PO 5 mg Q6H PRN Administration PAIN 4-6 Pantoprazole Sodium 40 mg 02/10/18 10:15 02/11/18 12:40 Protonix Iv IVPUSH 40 mg BID ILYA Administration Phenazopyridine HCl 100 mg 02/04/18 11:05 02/06/18 21:47 Pyridium - PO 100 mg TID PRN Administration dysuria Prednisone 40 mg 02/10/18 11:15 02/11/18 12:20 Deltasone - PO Not Given DAILY ILYA Senna 2 tab 02/03/18 21:13 Senna - PO HS PRN CONSTIPATION Vancomycin HCl 125 mg 02/11/18 00:00 02/11/18 12:20 Vancomycin Oral Solution PO Not Given Q6HPO ILYA ASSESSMENT/PLAN: 57 yo Female with PMH CAD, CHF, HTN, HLD, COPD, IDDM admitted to hospital with SOB, cough productive of greenish/yellow fluids, fevers, chills for 1-2 weeks. Pt being tx for COPD exacerbation. Pt sent to ICU after SERVICE STATION CONSOLE OPERATOR called for unresponsiveness She received oxycodone at 9:38 AM. Now she is awake and alert with a non-focal Neuro exam. Neuro/Cardio/pulm/GI: AMS possibly due to opioid intake, No evidence of acute JAVA PROJECT MANAGER event CT Head is negative for any acute pathology. AOx3, vitals tachy SR 109, BP 156/83, pt appears stable. However cannot tolerate PO at this time 2/2 vomit/nausea. Will give reglan to help w/ nausea and convert Keppra, lisinopril ,and prednisone to IV equivalents (enalapril and solumedrol). If needed hydral and cardizem can be converted as well. Per pharmacy, Hydral 10-20mg q4-6hr prn. Cardizem 125 gtt or 3mg/hr IVP Pt stable and [facility]. Furhter care per primary team/PCP Visit type - Emergency Visit Emergency Visit: Yes ED Registration Date: 02/06/18 Care time: The patient presented to the Emergency Department on the above date and was hospitalized for further evaluation of their emergent condition. - New Patient This patient is new to me today: Yes Date on this admission: 02/11/18 - Critical Care Critical Care patient: Yes Total Critical Care Time (in minutes): 35 Critical Care Statement: The care of this patient involved high complexity decision making to prevent further life threatening deterioration of the patient 's condition and/or to evaluate & treat vital organ system(s) failure or risk of failure.
[2018-02-11] MEDS: NICOTINE 21 MG/24 HOURS TOPICAL PATCH TD SCH (13:15)
--- NOTE | 2018-02-11 13:29 | PN ---
Teaching Attending Note Name of Resident: Varun Perales ATTENDING PHYSICIAN STATEMENT I saw and evaluated the patient. I reviewed the resident's note and discussed the case with the resident. I agree with the resident's findings and plan as documented. SUBJECTIVE: Patient seen and examined in the ICU. Transferred acutely due to AMS. CT Head is negative for any acute pathology. She received oxycodone at 9:38 AM. Now she is awake and alert with a non-focal Neuro exam. She has significant nausea. She is being belligerent to the staff. VS are stable (BP elevated) Intake & Output 02/08/18 02/09/18 02/10/18 02/11/18 23:59 23:59 23:59 23:59 Intake Total 750 775 500 200 Balance 750 775 500 200 Weight 234 lb 2 oz 234 lb 4 oz 231 lb 3 oz Last Vital Signs Temp Pulse Resp BP Pulse Ox 99.3 F 105 H 22 H 156/83 94 L 02/11/18 13:26 02/11/18 13:26 02/11/18 13:26 02/11/18 12:00 02/11/18 04:00 Active Medications Acetaminophen (Ofirmev Injection -) 1,000 mg IVPB Q6H PRN PRN Reason: PAIN LEVEL 6-10 Last Admin: 02/11/18 13:14 Dose: 1,000 mg Acetylcysteine (Mucomyst 20 Oral / Inh Use Only*) 400 mg NEB RBID [facility] Last Admin: 02/11/18 07:47 Dose: Not Given Albuterol Sulfate (Ventolin 0.083% Nebulizer Soln -) 1 amp NEB RQ4H [facility] Last Admin: 02/11/18 11:34 Dose: 1 amp Aspirin (Ecotrin -) 81 mg PO DAILY [facility] Last Admin: 02/11/18 12:20 Dose: Not Given Budesonide/Formoterol Fumarate (Symbicort 160/4.5mcg -) 2 puff IH BID [facility] Last Admin: 02/10/18 21:56 Dose: 2 puff Clonidine (Catapres -) 0.1 mg PO BID [facility] Last Admin: 02/11/18 12:19 Dose: Not Given Diltiazem HCl (Cardizem Cd -) 120 mg PO DAILY [facility] Last Admin: 02/11/18 12:18 Dose: Not Given Docusate Sodium (Colace -) 300 mg PO HS PRN PRN Reason: CONSTIPATION Duloxetine HCl (Cymbalta -) 60 mg PO DAILY [facility] Last Admin: 02/11/18 12:19 Dose: Not Given Enalaprilat (Vasotec Injection -) 2.5 mg IVPB Q6H-IV ILYA Eucalyptus/Menthol/Phenol/Sorbitol (Cepastat Lozenge -) 1 each MM Q4H PRN PRN Reason: SORE THROAT Furosemide (Lasix Injection -) 40 mg IVPUSH BID@0600,1400 [facility] Last Admin: 02/11/18 05:57 Dose: 40 mg Gabapentin (Neurontin -) 300 mg PO TID PRN PRN Reason: PAIN Last Admin: 02/08/18 21:20 Dose: 300 mg Guaifenesin (Diabetic Tussin Dm -) 10 ml PO Q4H PRN PRN Reason: COUGH Last Admin: 02/06/18 09:12 Dose: 10 ml Hydralazine HCl (Apresoline -) 25 mg PO BID [facility] Last Admin: 02/11/18 12:18 Dose: Not Given Ceftazidime 1 gm/ Dextrose 50 mls @ 200 mls/hr IVPB BID [facility]; Protocol Last Admin: 02/10/18 21:51 Dose: 200 mls/hr Sodium Chloride (Normal Saline -) 1,000 mls @ 42 mls/hr IV ASDIR [facility] Last Admin: 02/11/18 11:00 Dose: 42 mls/hr Potassium Chloride (Potassium Chloride 10 Meq Premix Ivpb -) 10 meq in 100 mls @ 100 mls/hr IVPB Q60M [facility] Stop: 02/11/18 13:59 Last Admin: 02/11/18 12:39 Dose: 100 mls/hr Insulin Aspart (Novolog Vial Sliding Scale -) 1 vial SQ ACHS [facility]; Protocol Last Admin: 02/11/18 12:48 Dose: Not Given Insulin Aspart (Novolog Mix 70/30 Vial) 22 units SQ BIDAC [facility] Last Admin: 02/11/18 06:03 Dose: 22 units Insulin Detemir (Levemir Vial) 40 units SQ BID@0700,2200 [facility] Last Admin: 02/11/18 06:04 Dose: Not Given Levetiracetam (Keppra Injection -) 1,000 mg IVPB BID [facility] Methylprednisolone Sodium Succinate (Solu-Medrol -) 30 mg IVPUSH DAILY [facility] Metoclopramide HCl (Reglan Injection -) 10 mg IVPUSH ONCE ONE Stop: 02/11/18 13:16 Nicotine (Nicoderm Patch -) 21 mg TD DAILY [facility] Last Admin: 02/11/18 13:15 Dose: 21 mg Ondansetron HCl (Zofran Injection) 4 mg IVPUSH Q6H PRN PRN Reason: NAUSEA Last Admin: 02/11/18 09:35 Dose: 4 mg Oxycodone HCl (Roxicodone -) 5 mg PO Q6H PRN PRN Reason: PAIN 4-6 Last Admin: 02/11/18 09:38 Dose: 5 mg Pantoprazole Sodium (Protonix Iv) 40 mg IVPUSH BID [facility] Last Admin: 02/11/18 12:40 Dose: 40 mg Phenazopyridine HCl (Pyridium -) 100 mg PO TID PRN PRN Reason: dysuria Last Admin: 02/06/18 21:47 Dose: 100 mg Senna (Senna -) 2 tab PO HS PRN PRN Reason: CONSTIPATION Vancomycin HCl (Vancomycin Oral Solution) 125 mg PO Q6HPO [facility] Last Admin: 02/11/18 12:20 Dose: Not Given Gen: Awake and alert, Agitated Heart: RRR Lung: bilateral rhonchi, no wheezes Abd: soft, nontender Ext: + edema Laboratory Results - last 24 hr 02/10/18 02/10/18 02/11/18 17:10 21:48 05:56 WBC RBC Hgb Hct MCV MCH MCHC RDW Plt Count MPV Absolute Neuts (auto) Neutrophils % Lymphocytes % Monocytes % Eosinophils % Basophils % Nucleated RBC % Puncture Site ABG pH ABG pCO2 at Pt Temp ABG pO2 at Pt Temp ABG HCO3 ABG O2 Sat (Measured) ABG O2 Content ABG Base Excess Pineda Test O2 Delivery Device Oxygen Flow Rate Sodium Potassium Chloride Carbon Dioxide Anion Gap BUN Creatinine Creat Clearance w eGFR POC Glucometer 275 287 287 Random Glucose Calcium Total Bilirubin AST ALT Alkaline Phosphatase LD Total C-Reactive Protein Total Protein Albumin Total Amylase 02/11/18 02/11/18 02/11/18 06:50 06:50 09:46 WBC 37.1 H* RBC 5.64 H Hgb 16.2 H Hct 50.5 H MCV 89.5 MCH 28.7 MCHC 32.1 RDW 14.2 Plt Count 310 MPV 9.7 Absolute Neuts (auto) 34.7 H Neutrophils % 93.6 H Lymphocytes % 2.3 L D Monocytes % 3.7 L Eosinophils % 0.0 D Basophils % 0.4 Nucleated RBC % 0 Puncture Site ABG pH ABG pCO2 at Pt Temp ABG pO2 at Pt Temp ABG HCO3 ABG O2 Sat (Measured) ABG O2 Content ABG Base Excess Pineda Test O2 Delivery Device Oxygen Flow Rate Sodium 129 L Potassium 2.6 L* Chloride 78 L Carbon Dioxide 34 H Anion Gap 17 H BUN 23 H Creatinine 0.6 Creat Clearance w eGFR > 60 POC Glucometer 243 Random Glucose 241 H Calcium 8.3 L Total Bilirubin 1.4 H AST 24 ALT 31 Alkaline Phosphatase 87 LD Total 380 H C-Reactive Protein 12.8 H Total Protein 5.9 L Albumin 2.1 L Total Amylase 70 02/11/18 11:15 WBC RBC Hgb Hct MCV MCH MCHC RDW Plt Count MPV Absolute Neuts (auto) Neutrophils % Lymphocytes % Monocytes % Eosinophils % Basophils % Nucleated RBC % Puncture Site Right radial ABG pH 7.62 H* D ABG pCO2 at Pt Temp 38.6 ABG pO2 at Pt Temp 75.9 L ABG HCO3 39.7 H ABG O2 Sat (Measured) 96.4 ABG O2 Content 21.5 ABG Base Excess 16.0 H* Pineda Test Positive O2 Delivery Device Nasal Oxygen Flow Rate 4l Sodium Potassium Chloride Carbon Dioxide Anion Gap BUN Creatinine Creat Clearance w eGFR POC Glucometer Random Glucose Calcium Total Bilirubin AST ALT Alkaline Phosphatase LD Total C-Reactive Protein Total Protein Albumin Total Amylase A/P AMS possibly due to opioid intake No evidence of acute BRAND COORDINATOR event Resolving Acute COPD Exacerbation UTI CAD CHF Pulmonary HTN DM Likely DB Smoker - Monitor on 4W/4S: no need for ICU monitoring at this time - Prednisone taper - inhaled bronchodilators standing and PRN - O2 to keep SpO2 >90% - lasix - monitor urine output, creatinine - continue antibiotics - outpt PFTs, PSG - smoking cessation discussed - DVT prophylaxis Dr Cheng
[2018-02-11] MEDS ORDERED: levETIRAcetam 500 MG/5 ML INJECTION VIAL IVPB SCH ×2 (14:00→22:00)
[2018-02-11] MEDS ORDERED: METOCLOPRAMIDE HCL INJECTION 10 MG/2 ML VIAL IVPUSH ONE (14:00)
[2018-02-11] MEDS ORDERED: methylPREDNISolone NA SUCC 40 MG/1 ML VIAL IVPUSH SCH (14:00)
[2018-02-11] MEDS ORDERED: ENALAPRILAT DIHYDRATE 2.5 MG/2 ML VIAL IVPB SCH (15:00)
[2018-02-11 15:27] LABS: ANISOCYTOSIS 2+; MACROCYTOSIS 1+; OVALOCYTE 2+; PLATELET ESTIMATE NORMAL
[2018-02-11] MEDS ORDERED: PT OWN MED DRAWER 7, Y5N ONE ×3 (16:47→20:56)
--- NOTE | 2018-02-11 18:01 | CON.NEURO ---
Consult - Past Medical History HIDE DYER: Yes: CVA (? pt thinks she may have had one in the past (L facial droop)), Seizure Cardio/Vascular: Yes: CAD (with stents), HTN, Hyperlipdemia, Murmur (tricuspic insufficiency) Pulmonary: Yes: Asthma, COPD Gastrointestinal: Yes: Gastritis, Other ("colitis" mid-April) Hepatobiliary: Yes: Hepatitis C Infectious Disease: Yes: MRSA (R thigh abscess 02/26) Psych: Yes: Addictions, Anxiety, Bipolar, Depression Musculoskeletal: Yes: Chronic low back pain Endocrine: Yes: Diabetes Mellitus - Past Surgical History Past Surgical History: Yes: Appendectomy, Cholecystectomy (laparoscopic), Colonoscopy, Hysterectomy (vaginal), Tonsillectomy, Upper Endoscopy - Alcohol/Substance Use Hx Alcohol Use: No History of Substance Use: reports: Cocaine (crack), Heroin (snorted cocaine and heroin, denies IVDA) - Smoking History Smoking history: Current every day smoker Have you smoked in the past 12 months: Yes Aproximately how many cigarettes per day: 20 - Social History Usual Living Arrangement: With Child ADL: Family Assistance Occupation: disabled History of Recent Travel: No Home Medications - Allergies Allergies/Adverse Reactions: Allergies Allergy/AdvReac Type Severity Reaction Status Date / Time No Known Allergies Allergy Verified 02/03/18 16:52 - Home Medications Home Medications: Ambulatory Orders Tiotropium Concord [Spiriva] 18 mcg IH DAILY 12/21/14 Ascorbic Acid [Vitamin C -] 500 mg PO BID #60 tablet 02/15/17 Salmeterol/Fluticasone [Advair 100Mcg/50Mcg -] 1 puff IH BID #1 inhaler metFORMIN HCL [Glucophage -] 500 mg PO BID@0700,1630 #60 tablet 02/15/17 Aspirin Coated [Ecotrin -] 81 mg PO DAILY #30 tablet.ec 06/03/17 Diltiazem Cd [Cardizem Cd -] 120 mg PO DAILY #30 cap.cd.24h 06/03/17 Duloxetine HCl [Cymbalta -] 60 mg PO DAILY #30 capsule. 06/03/17 Lisinopril [Prinivil] 20 mg PO DAILY #30 tablet 06/03/17 cloNIDine HCL [Catapres -] 0.1 mg PO BID #60 tablet 06/03/17 levETIRAcetam [Keppra -] 1,000 mg PO BID #60 tablet 06/03/17 Albuterol 0.083% Nebulizer Kathleen [Ventolin 0.083% Nebulizer Soln -] 1 neb NEB Q4H PRN #20 vial 12/20/17 Albuterol Sulfate Inhaler - [Ventolin Hfa Inhaler -] 1 - 2 inh PO Q4H PRN #1 inhaler 12/20/17 Docusate Sodium [Colace -] 300 mg PO HS PRN 12/20/17 Gabapentin [Neurontin -] 300 mg PO TID PRN 12/20/17 Sennosides [Senna -] 2 tab PO HS PRN 12/20/17 Insulin Glargine,Hum.rec.anlog [Lantus] 35 unit SQ BID 12/22/17 hydrALAZINE HCL [Apresoline -] 25 mg PO BID 12/22/17 oxyCODONE HCL [Roxicodone -] 5 mg PO Q6H PRN #14 tablet MDD 4 12/24/17 Azithromycin 250 mg PO DAILY #6 tablet 01/25/18 Prednisone [Deltasone] 40 mg PO BID #8 tablet 01/25/18 Cephalexin [Keflex] 500 mg PO BID #14 capsule 01/30/18 Family Disease History - Family Disease History Family Disease History: Diabetes: Mother, Heart Disease: Father ( of AIDS), Brother, Sister, Respiratory: Father, Other: Father, Brother, Sister Physical Exam-Neuro Vital Signs: Vital Signs Temperature 99.3 F 02/11/18 14:00 Pulse Rate 105 H 02/11/18 14:00 Respiratory Rate 22 H 02/11/18 14:00 Blood Pressure 168/73 02/11/18 14:00 O2 Sat by Pulse Oximetry (%) 94 L 02/11/18 04:00 Labs: CBC, BMP 02/11/18 06:50 02/11/18 06:50 INR, PTT INR 0.87 (0.83-1.09) 02/03/18 17:25 Assessment/Plan cc episode of LOC HPI 57 year old female history of CAD, HTN, CHF, HLD, COPD, BIPOLAR Disorder , was admitted for sob and productive cough, fever and exacerbation of COPD While on floor she has given oxycodone and she became unreponsive. There is no tonic clonic activity. Patient has improved back to her baseline and she had ct scan is normal. There is no focal neurological symptoms, she is complaiing of abdomen pain and remain uncooperative during history and exam. PMH as above NKDA Home Medications: Tiotropium Concord [Spiriva] 18 mcg IH DAILY 12/21/14 Ascorbic Acid [Vitamin C -] 500 mg PO BID #60 tablet 02/15/17 Salmeterol/Fluticasone [Advair 100Mcg/50Mcg -] 1 puff IH BID #1 inhaler metFORMIN HCL [Glucophage -] 500 mg PO BID@0700,1630 #60 tablet 02/15/17 Aspirin Coated [Ecotrin -] 81 mg PO DAILY #30 tablet.ec 06/03/17 Diltiazem Cd [Cardizem Cd -] 120 mg PO DAILY #30 cap.cd.24h 06/03/17 Duloxetine HCl [Cymbalta -] 60 mg PO DAILY #30 capsule. 06/03/17 Lisinopril [Prinivil] 20 mg PO DAILY #30 tablet 06/03/17 cloNIDine HCL [Catapres -] 0.1 mg PO BID #60 tablet 06/03/17 levETIRAcetam [Keppra -] 1,000 mg PO BID #60 tablet 06/03/17 Albuterol 0.083% Nebulizer Kathleen [Ventolin 0.083% Nebulizer Soln -] 1 neb NEB Q4H PRN #20 vial 12/20/17 Albuterol Sulfate Inhaler - [Ventolin Hfa Inhaler -] 1 - 2 inh PO Q4H PRN #1 inhaler 12/20/17 Docusate Sodium [Colace -] 300 mg PO HS PRN 12/20/17 Gabapentin [Neurontin -] 300 mg PO TID PRN 12/20/17 Sennosides [Senna -] 2 tab PO HS PRN 12/20/17 Insulin Glargine,Hum.rec.anlog [Lantus] 35 unit SQ BID 12/22/17 hydrALAZINE HCL [Apresoline -] 25 mg PO BID 12/22/17 oxyCODONE HCL [Roxicodone -] 5 mg PO Q6H PRN #14 tablet MDD 4 12/24/17 Azithromycin 250 mg PO DAILY #6 tablet 01/25/18 Prednisone [Deltasone] 40 mg PO BID #8 tablet 01/25/18 Cephalexin [Keflex] 500 mg PO BID #14 capsule 01/30/18 Family Disease History: Diabetes: Mother, Heart Disease: Father ( of AIDS), Brother, Sister, Respiratory: Father, Other: Father, Brother, Sister SH, MELLO was reviewed in chart Neurological Examination Alert oriented x 3, she knows where she is and could not tell date exactly, she knew moth and year speech is normal eomi, pupils reactive, no face asymemtry moving all extremity uncooperative when checking leg strength and she says she feels weak all over sensation is normal ct head is normal Assessment- Most lilkely change in her mental status due to oxycodone dose. There is no evidence of seizure, If she has another episode, I would consider mri of brain and eeg. CLinically unlikley to be stroke or Meningitis at this time Thanking you so much, NO further testing or treatment from neuro point of view at this time THnkaing you so much Tio Cerrato MD
--- NOTE | 2018-02-11 18:17 | PN ---
GI Progress Note Subjective: GI Note: Seen earlier while confused. Now appears to have been related to narcotic. C diff confirmed - Objective Vital Signs: Vital Signs Temperature 100.7 F H 02/11/18 18:12 Pulse Rate 105 H 02/11/18 14:00 Respiratory Rate 22 H 02/11/18 14:00 Blood Pressure 168/73 02/11/18 14:00 O2 Sat by Pulse Oximetry (%) 96 02/11/18 12:00 ...Auscultate: Yes: Hyperactive Bowel Sounds ...Palpate: Yes: Other (diffusely tender but no rebound) Labs: CBC, BMP 02/11/18 06:50 02/11/18 06:50 INR, PTT INR 0.87 (0.83-1.09) 02/03/18 17:25 Problem List - Problems (1) Abdominal pain Assessment/Plan: Yohana's pain , diarrhea and marked leucocytosis are confirmed to be due to C diff colitis Continue Vancomycin. Code(s): R10.9 - UNSPECIFIED ABDOMINAL PAIN Qualifiers: Abdominal location: generalized (2) Colitis Code(s): K52.9 - NONINFECTIVE GASTROENTERITIS AND COLITIS, UNSPECIFIED (3) Heroin abuse Code(s): F11.10 - OPIOID ABUSE, UNCOMPLICATED (4) Diabetes mellitus with hyperosmolarity Code(s): E11.00 - TYPE 2 DIAB W HYPROSM W/O NONKET HYPRGLY-HYPROS COMA ([facility]) (5) ASHD (arteriosclerotic heart disease) Code(s): I25.10 - ATHSCL HEART DISEASE OF [place] CORONARY ARTERY W/O ANG PCTRS (6) COPD exacerbation Code(s): J44.1 - CHRONIC OBSTRUCTIVE PULMONARY DISEASE W (ACUTE) EXACERBATION (7) Cocaine abuse Code(s): F14.10 - COCAINE ABUSE, UNCOMPLICATED (8) Diarrhea Code(s): R19.7 - DIARRHEA, UNSPECIFIED Qualifiers: Diarrhea type: infectious Qualified Code(s): A09 - Infectious gastroenteritis and colitis, unspecified (9) Leukocytosis Code(s): D72.829 - ELEVATED WHITE BLOOD CELL COUNT, UNSPECIFIED (10) Bipolar II disorder Code(s): F31.81 - BIPOLAR II DISORDER (11) Hepatitis C Code(s): B19.20 - UNSPECIFIED VIRAL HEPATITIS C WITHOUT HEPATIC COMA Qualifiers: Viral hepatitis chronicity: unspecified Hepatic coma status: without hepatic coma Qualified Code(s): B19.20 - Unspecified viral hepatitis C without hepatic coma (12) C. difficile colitis Code(s): A04.72 - ENTEROCOLITIS D/T CLOSTRIDIUM DIFFICILE, NOT SPCF RECUR
[2018-02-11] MEDS ORDERED: LORazepam 2 MG/ML SDV VIAL IVPUSH ONE (18:27)
--- NOTE | 2018-02-11 19:20 | PN ---
Progress Note, Physician History of Present Illness: Events noted Transferred to [facility] after period of unresponsiveness Awake, but confused Supine in bed Markedly elevated WBC CT c/w colitis C diff + - Current Medication List Current Medications: Active Medications Acetaminophen (Ofirmev Injection -) 1,000 mg IVPB Q6H PRN PRN Reason: PAIN LEVEL 6-10 Last Admin: 02/11/18 13:14 Dose: 1,000 mg Acetylcysteine (Mucomyst 20 Oral / Inh Use Only*) 400 mg NEB RBID [facility] Last Admin: 02/11/18 07:47 Dose: Not Given Albuterol Sulfate (Ventolin 0.083% Nebulizer Soln -) 1 amp NEB RQ4H [facility] Last Admin: 02/11/18 17:13 Dose: 1 amp Aspirin (Ecotrin -) 81 mg PO DAILY [facility] Last Admin: 02/11/18 12:20 Dose: Not Given Budesonide/Formoterol Fumarate (Symbicort 160/4.5mcg -) 2 puff IH BID [facility] Last Admin: 02/11/18 10:20 Dose: Not Given Clonidine (Catapres -) 0.1 mg PO BID [facility] Last Admin: 02/11/18 12:19 Dose: Not Given Diltiazem HCl (Cardizem Cd -) 120 mg PO DAILY [facility] Last Admin: 02/11/18 12:18 Dose: Not Given Docusate Sodium (Colace -) 300 mg PO HS PRN PRN Reason: CONSTIPATION Duloxetine HCl (Cymbalta -) 60 mg PO DAILY [facility] Last Admin: 02/11/18 12:19 Dose: Not Given Enalaprilat (Vasotec Injection -) 2.5 mg IVPB Q6H-IV [facility] Last Admin: 02/11/18 14:13 Dose: 2.5 mg Eucalyptus/Menthol/Phenol/Sorbitol (Cepastat Lozenge -) 1 each MM Q4H PRN PRN Reason: SORE THROAT Furosemide (Lasix Injection -) 40 mg IVPUSH BID@0600,1400 [facility] Last Admin: 02/11/18 13:46 Dose: 40 mg Gabapentin (Neurontin -) 300 mg PO TID PRN PRN Reason: PAIN Last Admin: 02/08/18 21:20 Dose: 300 mg Guaifenesin (Diabetic Tussin Dm -) 10 ml PO Q4H PRN PRN Reason: COUGH Last Admin: 02/06/18 09:12 Dose: 10 ml Hydralazine HCl (Apresoline -) 25 mg PO BID [facility] Last Admin: 02/11/18 12:18 Dose: Not Given Sodium Chloride (Normal Saline -) 1,000 mls @ 42 mls/hr IV ASDIR [facility] Last Admin: 02/11/18 11:00 Dose: 42 mls/hr Metronidazole (Flagyl 500mg Premixed Ivpb -) 500 mg in 100 mls @ 100 mls/hr IVPB Q8H-IV [facility] Insulin Aspart (Novolog Vial Sliding Scale -) 1 vial SQ ACHS [facility]; Protocol Last Admin: 02/11/18 17:02 Dose: 2 units Insulin Aspart (Novolog Mix 70/30 Vial) 22 units SQ BIDAC [facility] Last Admin: 02/11/18 17:04 Dose: Not Given Insulin Detemir (Levemir Vial) 40 units SQ BID@0700,2200 [facility] Last Admin: 02/11/18 06:04 Dose: Not Given Levetiracetam (Keppra Injection -) 1,000 mg IVPB BID [facility] Last Admin: 02/11/18 13:58 Dose: 1,000 mg Methylprednisolone Sodium Succinate (Solu-Medrol -) 30 mg IVPUSH DAILY [facility] Last Admin: 02/11/18 14:09 Dose: 30 mg Nicotine (Nicoderm Patch -) 21 mg TD DAILY [facility] Last Admin: 02/11/18 13:15 Dose: 21 mg Ondansetron HCl (Zofran Injection) 4 mg IVPUSH Q6H PRN PRN Reason: NAUSEA Last Admin: 02/11/18 09:35 Dose: 4 mg Pantoprazole Sodium (Protonix Iv) 40 mg IVPUSH BID [facility] Last Admin: 02/11/18 12:40 Dose: 40 mg Phenazopyridine HCl (Pyridium -) 100 mg PO TID PRN PRN Reason: dysuria Last Admin: 02/06/18 21:47 Dose: 100 mg Senna (Senna -) 2 tab PO HS PRN PRN Reason: CONSTIPATION Vancomycin HCl (Vancomycin Oral Solution) 125 mg PO Q6HPO [facility] Last Admin: 02/11/18 17:05 Dose: Not Given - Objective Vital Signs: Vital Signs Temperature 100.7 F H 02/11/18 18:12 Pulse Rate 105 H 02/11/18 14:00 Respiratory Rate 22 H 02/11/18 14:00 Blood Pressure 168/73 02/11/18 14:00 O2 Sat by Pulse Oximetry (%) 96 02/11/18 12:00 Constitutional: Yes: No Distress, Obese Cardiovascular: Yes: Regular Rate and Rhythm, S1, S2 Respiratory: Yes: Diminished Gastrointestinal: Yes: Normal Bowel Sounds, Soft, Abdomen, Obese. No: Tenderness Edema: No Labs: CBC, BMP 02/11/18 06:50 02/11/18 06:50 INR, PTT INR 0.87 (0.83-1.09) 02/03/18 17:25 Assessment/Plan C diff colitis Markedly elevated WBC secondary to C diff S/P period of unresponsiveness COPD exacerbation UTI D/C antibiotic Continue po vancomycin Add flagyl IV Contact precautions
[2018-02-11] MEDS ORDERED: MENTHOL/PHENOL 1 EACH UD MM PRN (20:28)
[2018-02-11] MEDS ORDERED: DOCUSATE SODIUM 100 MG CAPSULE (FP) PO PRN (20:28)
[2018-02-11] MEDS ORDERED: ONDANSETRON 4 MG/2 ML VIAL IVPUSH PRN (20:28)
[2018-02-11] MEDS ORDERED: PHENAZOPYRIDINE HCL 100 MG TABLET (FP) PO PRN (20:28)
[2018-02-11] MEDS ORDERED: guaiFENesin/D-M SUGAR-FREE/ACLHOL-FREE 118 ML BOTTLE PO PRN (20:28)
[2018-02-11] MEDS ORDERED: SENNOSIDES 8.6MG TABLET (FP) PO PRN (20:28)
[2018-02-11] MEDS ORDERED: ACETYLCYSTEINE 20% 200MG/ML 4 ML VIAL *FOR ORAL / INH USE ONLY ONE (20:48)
[2018-02-11] MEDS ORDERED: ALBUTEROL SO4 0.083% IH SOL 2.5 MG/3 ML VIAL.NEB. NEB ONE (20:48)
[2018-02-11] MEDS: CEFTAZIDIME PENTAHYDRATE 1 GM in DEXTROSE 5%-WATER - 50 ML IVPB SCH (20:50)
[2018-02-11] MEDS: levETIRAcetam 500 MG/5 ML INJECTION VIAL IVPB SCH (21:05)
[2018-02-11] MEDS: GABAPENTIN 300 MG CAPSULE (FP) PO PRN (21:05)
[2018-02-11] MEDS: ENALAPRILAT DIHYDRATE 2.5 MG/2 ML VIAL IVPB SCH (21:05)
[2018-02-11] MEDS: ACETAMINOPHEN 1000 MG/100 ML VIAL (NON FORMULARY) IVPB PRN (21:16)
--- NOTE | 2018-02-11 22:07 | PN ---
Progress Note (short form) - Note Progress Note: Patients son was standing by bedside and informed the staff that the patient was twitching. We came to bedside and noticed the patient was twitching her eyes and lips which lasted for less than a minute. She responded to painful stimuli. Then she started saying "She wants to be pain free! Make it go away, Make it stop" We gave [address] Lui notified Brain MRI ordered.
[2018-02-12] MEDS: ALBUTEROL SO4 0.083% IH SOL 2.5 MG/3 ML VIAL.NEB. NEB SCH ×6 (00:04→20:11)
[2018-02-12] MEDS: VANCOMYCIN 250 MG/5 ML ORAL SOLUTION PO SCH ×5 (01:11→23:20)
[2018-02-12] MEDS ORDERED: METOPROLOL TARTRATE 5 MG/5 ML VIAL ONE (02:50)
[2018-02-12] MEDS ORDERED: METOPROLOL TARTRATE 5 MG/5 ML VIAL IVPUSH ONE ×2 (02:52→09:30)
[2018-02-12] MEDS ORDERED: SODIUM CHLORIDE 500 ML IV ONE (03:15)
[2018-02-12] MEDS: ENALAPRILAT DIHYDRATE 2.5 MG/2 ML VIAL IVPB SCH ×4 (04:15→22:38)
[2018-02-12] MEDS: ACETAMINOPHEN 1000 MG/100 ML VIAL (NON FORMULARY) IVPB PRN (04:22)
[2018-02-12] MEDS ORDERED: dilTIAZem HCL 50 MG/10 ML - 10 ML VIAL IVPUSH ONE (05:32)
[2018-02-12] MEDS: FUROSEMIDE 40 MG/4 ML INJECTABLE VIAL IVPUSH SCH ×2 (06:53→14:10)
[2018-02-12] MEDS: INSULIN SLIDING SCALE (NOVOLOG) 1 VIAL SQ SCH ×4 (06:53→22:38)
[2018-02-12] MEDS: INSULIN (LEVEMIR) 100 UNITS/ML UNITS SQ SCH ×2 (07:00→22:37)
[2018-02-12] MEDS: INSULIN (NOVOLOG MIX 70/30) 100 UNITS/ML MDV SQ SCH ×2 (07:00→16:36)
[2018-02-12] MEDS ORDERED: INSULIN (NOVOLOG MIX 70/30) 100 UNITS/ML MDV SQ SCH (07:00)
[2018-02-12] MEDS: ACETYLCYSTEINE 20% 200MG/ML 4 ML VIAL *FOR ORAL / INH USE ONLY NEB SCH ×2 (07:20→20:12)
[2018-02-12] MEDS ORDERED: dilTIAZem HCL 25 MG/5 ML - 5 ML VIAL IVPUSH ONE (07:45)
[2018-02-12] MEDS: GABAPENTIN 300 MG CAPSULE (FP) PO PRN (08:26)
[2018-02-12 08:36] LABS: BASO % 0.2 % (0-2.0); EOS % 0.1 % (0-4.5); HEMATOCRIT 47.1 % (32.4-45.2); LYMPH % 3.6 % (8-40); MCH 30.6 pg (25.7-33.7); MEAN PLT VOLUME 9.5 fl (7.5-11.1); MONO % 5.9 % (3.8-10.2); NEUT % 90.2 % (42.8-82.8); PLATELET COUNT 288 K/MM3 (134-434); RBC 5.23 M/mm3 (3.60-5.2); RDW 14.2 % (11.6-15.6)
[2018-02-12 08:50] LABS: WHITE BLOOD COUNT 44.1 K/mm3 (4.0-10.0)
[2018-02-12 09:08] LABS: ALBUMIN 1.8 g/dl (3.4-5.0); ALK PHOS 79 U/L (45-117); ANION GAP 11 MMOL/L (8-16); BILIRUBIN,TOTAL 0.8 mg/dL (0.2-1); BLOOD UREA NITROGEN 28 mg/dL (7-18); CHLORIDE 86 mmol/L (98-107); CHOLESTEROL 201 mg/dL (50-200); CO2 37 mmol/L (21-32); CREATININE 0.6 mg/dL (0.55-1.3); GLUCOSE,RANDOM 179 mg/dL (74-106); HDL CHOLESTEROL 53 mg/dL (40-60); MAGNESIUM 2.3 mg/dL (1.8-2.4); PHOSPHOROUS 1.9 mg/dL (2.5-4.9); SGOT/AST 15 U/L (15-37); SGPT/ALT 25 U/L (13-61); SODIUM 133 mmol/L (136-145); TOT PROT 5.5 g/dl (6.4-8.2); TRIGLYCERIDES 220 mg/dL (0-150)
[2018-02-12 09:15] LABS: POTASSIUM 2.8 mmol/L (3.5-5.1)
[2018-02-12] MEDS ORDERED: PT OWN MED DRAWER 7, Y5N ONE ×4 (09:20→21:40)
--- NOTE | 2018-02-12 09:31 | PN ---
Progress Note, Physician History of Present Illness: c/o abdominal pain pt with changes in ms exam intermittently-- without focal deficits--difficult to asses etiology at this time awake alert and oriented without any neuro complaints - Current Medication List Current Medications: Active Medications Acetaminophen (Ofirmev Injection -) 1,000 mg IVPB Q6H PRN PRN Reason: PAIN LEVEL 6-10 Last Admin: 02/12/18 04:22 Dose: 1,000 mg Acetylcysteine (Mucomyst 20 Oral / Inh Use Only*) 400 mg NEB RBID [facility] Last Admin: 02/12/18 07:20 Dose: Not Given Albuterol Sulfate (Ventolin 0.083% Nebulizer Soln -) 1 amp NEB RQ4H [facility] Last Admin: 02/12/18 07:20 Dose: Not Given Aspirin (Ecotrin -) 81 mg PO DAILY [facility] Budesonide/Formoterol Fumarate (Symbicort 160/4.5mcg -) 2 puff IH BID [facility] Last Admin: 02/11/18 21:08 Dose: 2 puff Clonidine (Catapres -) 0.1 mg PO BID [facility] Last Admin: 02/11/18 21:05 Dose: 0.1 mg Digoxin (Lanoxin Injection -) 0.25 mg IVPUSH ONCE ONE Stop: 02/12/18 09:31 Diltiazem HCl (Cardizem Cd -) 120 mg PO DAILY [facility] Last Admin: 02/12/18 08:26 Dose: 120 mg Docusate Sodium (Colace -) 300 mg PO HS PRN PRN Reason: CONSTIPATION Duloxetine HCl (Cymbalta -) 60 mg PO DAILY [facility] Enalaprilat (Vasotec Injection -) 2.5 mg IVPB Q6H-IV [facility] Last Admin: 02/12/18 04:15 Dose: 2.5 mg Eucalyptus/Menthol/Phenol/Sorbitol (Cepastat Lozenge -) 1 each MM Q4H PRN PRN Reason: SORE THROAT Furosemide (Lasix Injection -) 40 mg IVPUSH BID@0600,1400 [facility] Last Admin: 02/12/18 06:53 Dose: 40 mg Gabapentin (Neurontin -) 300 mg PO Q8H PRN PRN Reason: PAIN Last Admin: 02/12/18 08:26 Dose: 300 mg Guaifenesin (Diabetic Tussin Dm -) 10 ml PO Q4H PRN PRN Reason: COUGH Hydralazine HCl (Apresoline -) 25 mg PO BID [facility] Last Admin: 02/11/18 21:05 Dose: 25 mg Metronidazole (Flagyl 500mg Premixed Ivpb -) 500 mg in 100 mls @ 100 mls/hr IVPB Q8H-IV [facility] Last Admin: 02/12/18 01:11 Dose: 100 mls/hr Potassium Chloride (Potassium Chloride 10 Meq Premix Ivpb -) 10 meq in 100 mls @ 100 mls/hr IVPB Q60M [facility] Stop: 02/12/18 12:29 Potassium Chloride/Sodium Chloride (1/2ns+20meq Kcl) 20 meq in 1,000 mls @ 75 mls/hr IV ASDIR [facility] Insulin Aspart (Novolog Vial Sliding Scale -) 1 vial SQ ACHS [facility]; Protocol Last Admin: 02/12/18 06:53 Dose: 2 units Insulin Aspart (Novolog Mix 70/30 Vial) 15 units SQ BIDAC [facility] Insulin Detemir (Levemir Vial) 40 units SQ BID@0700,2200 [facility] Last Admin: 02/11/18 21:06 Dose: 40 units Levetiracetam (Keppra Injection -) 1,000 mg IVPB BID [facility] Last Admin: 02/11/18 21:05 Dose: 1,000 mg Methylprednisolone Sodium Succinate (Solu-Medrol -) 30 mg IVPUSH DAILY [facility] Nicotine (Nicoderm Patch -) 21 mg TD DAILY [facility] Ondansetron HCl (Zofran Injection) 4 mg IVPUSH Q6H PRN PRN Reason: NAUSEA Pantoprazole Sodium (Protonix Iv) 40 mg IVPUSH BID [facility] Last Admin: 02/11/18 21:08 Dose: 40 mg Phenazopyridine HCl (Pyridium -) 100 mg PO Q8H PRN PRN Reason: dysuria Potassium Chloride (Potassium Chloride Oral Liquid) 40 meq PO ONCE ONE Stop: 02/12/18 09:30 Senna (Senna -) 2 tab PO HS PRN PRN Reason: CONSTIPATION Vancomycin HCl (Vancomycin Oral Solution) 125 mg PO Q6HPO [facility] Last Admin: 02/12/18 05:59 Dose: 125 mg - Objective Vital Signs: Vital Signs Temperature 99.5 F 02/12/18 05:00 Pulse Rate 154 H 11/03/18 05:00 Respiratory Rate 21 H 02/12/18 05:00 Blood Pressure 126/84 02/12/18 05:00 O2 Sat by Pulse Oximetry (%) 95 02/11/18 22:00 Cardiovascular: Yes: Tachycardia, S1, S2 Respiratory: Yes: Regular, CTA Bilaterally Gastrointestinal: Yes: Normal Bowel Sounds, Soft, Tenderness Edema: No Labs: CBC, BMP 02/12/18 06:10 02/12/18 06:10 INR, PTT INR 0.87 (0.83-1.09) 02/03/18 17:25 Assessment/Plan - Problems (1) Congestive heart failure Assessment/Plan: -Cardiology consult -Daily weights -Nasal O2 PRN to keep SpO2>90% -Low sodium diabetic diet -Echo pending Code(s): I50.9 - HEART FAILURE, UNSPECIFIED (2) COPD exacerbation Assessment/Plan: -Pulmonary consult -Steroids -cxr and abg noted - -Nasal O2 to keep SpO2>90% -Bronchodilators Code(s): J44.1 - CHRONIC OBSTRUCTIVE PULMONARY DISEASE W (ACUTE) EXACERBATION (3) Type 2 diabetes mellitus with other circulatory complications Assessment/Plan: -BGM AC HS -Diabetic low sodium diet -Insulin: Increase levemir to 40 units BID and novolog sliding scale -Endocrinology consult Code(s): E11.59 - TYPE 2 DIABETES MELLITUS WITH OTH CIRCULATORY COMPLICATIONS (4) Change in MS-not consistent w seizure Assessment/Plan: -Neuro on board -imaging negative -Monitor (5) Abdominal pain--colitis Assessment/Plan: -GI consult appreciated -abx per id--vanco and flagyl -follow labs -morphine prn (6) Tachycardia--PAF Assessment/Plan: -now in sinus -EKG -Cardio follow up--AC? -Lopressor 5 mg given -Continue with Cardizem -Maybe due to pain
[2018-02-12] MEDS ORDERED: POTASSIUM CHLORIDE ORAL LIQUID 20 MEQ/15 ML PO ONE (09:45)
[2018-02-12] MEDS ORDERED: DIGOXIN 0.5 MG/2 ML AMPUL IVPUSH ONE (09:45)
[2018-02-12] MEDS: levETIRAcetam 500 MG/5 ML INJECTION VIAL IVPB SCH ×2 (09:46→22:21)
[2018-02-12] MEDS ORDERED: MORPHINE SULFATE 2 MG/ML VIAL IVPUSH ONE (09:49)
[2018-02-12] MEDS: methylPREDNISolone NA SUCC 40 MG/1 ML VIAL IVPUSH SCH (09:52)
[2018-02-12] MEDS: PANTOPRAZOLE SODIUM 40 MG VIAL IVPUSH SCH ×2 (09:53→22:21)
[2018-02-12] MEDS: ASPIRIN COATED 81 MG TABLET.EC PO SCH (09:53)
[2018-02-12] MEDS: DULoxetine HCL 30 MG CAPSULE.DR (FP) PO SCH (09:53)
[2018-02-12] MEDS: hydrALAZINE HCL 25 MG TABLET (FP) PO SCH ×2 (09:53→22:30)
[2018-02-12] MEDS: cloNIDine HCL 0.1 MG TABLET PO SCH ×2 (09:54→22:30)
[2018-02-12] MEDS: NICOTINE 21 MG/24 HOURS TOPICAL PATCH TD SCH (09:55)
[2018-02-12] MEDS: SODIUM CHLORIDE 0.45%/POT 20 MEQ/1,000 ML INFUS.BAG IV SCH (10:11)
[2018-02-12] MEDS: KCL 10 MEQ IVPB 10 MEQ/100 ML INFUS.BAG IVPB SCH ×3 (10:15→13:21)
--- NOTE | 2018-02-12 10:34 | PN ---
Progress Note (short form) - Note Progress Note: PULMONARY TRANSFERRED BACK TO FLOOR FROM ICU PERIOD OF UNRESPONSIVENESS RELATED TO OPIATE ADMINISTRATION PER NOTES PATIENT COMPLAINS OF ABD PAIN/DIARRHEA RECENT C.DIFF/RISING WBC'S H/O POLYSUBSTANCE ABUSE HEROIN/COCAINE FEBRILE/TACHY/HYPERTENSIVE ANICTERIC DISTANT BUT CLEAR B/L BREATH SOUNDS S1S2 TACHY BS+/MILD DIFFUSE TENDERNESS TO PALP NO EDEMA LABS/MEDS/NOTES/IMAGES/MICRO REVIEWED S/P AMS possibly due to opioid intake No evidence of acute [employer]IST[employer] event H/O bipolar/anxiety disorder Acute C. Diff colitis Resolving Acute COPD Exacerbation UTI CAD CHF Pulmonary HTN DM Likely DB Smoker/poly substance abuser - continue tele monitoring - Prednisone taper - inhaled bronchodilators standing and PRN - O2 to keep SpO2 >90% - lasix - monitor urine output, creatinine - continue antibiotics - outpt PFTs, PSG - smoking cessation discussed - antibiotics as per SAMRA HACKETT MD
--- NOTE | 2018-02-12 10:39 | PN ---
Progress Note (short form) - Note Progress Note: tachycardia noted- HR now controlled nd is 80 denies SOB or chest pain notes diffuse abdominal pain just medicated with morphine calm 3 BMS so far today Vital Signs Period Temp Pulse Resp BP Sys/Sultana Pulse Ox Last 24 Hr 99.3 F-100.7 F 105-166 20-22 126-168/73-98 95-96 cor-rrr lungs clear abd soft,n+bs diffuse tenderness to palpation ext no edema CBC, BMP 02/12/18 06:10 02/12/18 06:10 Microbiology 02/11/18 04:00 Stool Clostridium difficile Antigen ([facility]) - Final 02/11/18 04:00 Stool Clostridium difficile Toxin Assay - Final 02/08/18 17:10 Sputum - Expectorated Gram Stain - Final 02/08/18 17:10 Sputum - Expectorated Sputum Culture - Final Yeast Like Organism 02/03/18 18:35 Blood - Peripheral Venous Blood Culture - Final NO GROWTH AFTER 5 DAYS INCUBATION 02/03/18 18:35 Blood - Peripheral Venous Blood Culture - Final NO GROWTH AFTER 5 DAYS INCUBATION 02/04/18 01:41 Urine - Urine Clean Catch Urine Culture - Final Escherichia Coli 02/04/18 18:30 Nares - Mrsa Screen - Right MRSA Screen - Final NO MRSA ISOLATED 02/04/18 18:30 Nares - Mrsa Screen - Left MRSA Screen - Final NO MRSA ISOLATED 02/03/18 18:45 Nasopharyngeal Swab Influenza Types A,B Antigen - Final 02/03/18 18:45 Nasopharyngeal Swab - Final Current Medications Acetaminophen (Ofirmev Injection -) 1,000 mg IVPB Q6H PRN PRN Reason: PAIN LEVEL 6-10 Last Admin: 02/12/18 04:22 Dose: 1,000 mg Acetylcysteine (Mucomyst 20 Oral / Inh Use Only*) 400 mg NEB RBID [facility] Last Admin: 02/12/18 07:20 Dose: Not Given Albuterol Sulfate (Ventolin 0.083% Nebulizer Soln -) 1 amp NEB RQ4H [facility] Last Admin: 02/12/18 07:20 Dose: Not Given Aspirin (Ecotrin -) 81 mg PO DAILY [facility] Last Admin: 02/12/18 09:53 Dose: 81 mg Budesonide/Formoterol Fumarate (Symbicort 160/4.5mcg -) 2 puff IH BID [facility] Last Admin: 02/11/18 21:08 Dose: 2 puff Clonidine (Catapres -) 0.1 mg PO BID [facility] Last Admin: 02/12/18 09:54 Dose: 0.1 mg Diltiazem HCl (Cardizem Cd -) 120 mg PO DAILY [facility] Last Admin: 02/12/18 09:54 Dose: Not Given Docusate Sodium (Colace -) 300 mg PO HS PRN PRN Reason: CONSTIPATION Duloxetine HCl (Cymbalta -) 60 mg PO DAILY [facility] Last Admin: 02/12/18 09:53 Dose: 60 mg Enalaprilat (Vasotec Injection -) 2.5 mg IVPB Q6H-IV [facility] Last Admin: 02/12/18 09:54 Dose: 2.5 mg Eucalyptus/Menthol/Phenol/Sorbitol (Cepastat Lozenge -) 1 each MM Q4H PRN PRN Reason: SORE THROAT Furosemide (Lasix Injection -) 40 mg IVPUSH BID@0600,1400 [facility] Last Admin: 02/12/18 06:53 Dose: 40 mg Gabapentin (Neurontin -) 300 mg PO Q8H PRN PRN Reason: PAIN Last Admin: 02/12/18 08:26 Dose: 300 mg Guaifenesin (Diabetic Tussin Dm -) 10 ml PO Q4H PRN PRN Reason: COUGH Hydralazine HCl (Apresoline -) 25 mg PO BID [facility] Last Admin: 02/12/18 09:53 Dose: 25 mg Metronidazole (Flagyl 500mg Premixed Ivpb -) 500 mg in 100 mls @ 100 mls/hr IVPB Q8H-IV [facility] Last Admin: 02/12/18 09:46 Dose: 100 mls/hr Potassium Chloride (Potassium Chloride 10 Meq Premix Ivpb -) 10 meq in 100 mls @ 100 mls/hr IVPB Q60M [facility] Stop: 02/12/18 12:59 Last Admin: 02/12/18 10:15 Dose: 100 mls/hr Potassium Chloride/Sodium Chloride (1/2ns+20meq Kcl) 20 meq in 1,000 mls @ 75 mls/hr IV ASDIR [facility] Last Admin: 02/12/18 10:11 Dose: 75 mls/hr Insulin Aspart (Novolog Vial Sliding Scale -) 1 vial SQ ACHS [facility]; Protocol Last Admin: 02/12/18 06:53 Dose: 2 units Insulin Aspart (Novolog Mix 70/30 Vial) 15 units SQ BIDAC [facility] Insulin Detemir (Levemir Vial) 40 units SQ BID@0700,2200 [facility] Last Admin: 02/11/18 21:06 Dose: 40 units Levetiracetam (Keppra Injection -) 1,000 mg IVPB BID [facility] Last Admin: 02/12/18 09:46 Dose: 1,000 mg Methylprednisolone Sodium Succinate (Solu-Medrol -) 30 mg IVPUSH DAILY [facility] Last Admin: 02/12/18 09:52 Dose: 30 mg Nicotine (Nicoderm Patch -) 21 mg TD DAILY [facility] Last Admin: 02/12/18 09:55 Dose: 21 mg Ondansetron HCl (Zofran Injection) 4 mg IVPUSH Q6H PRN PRN Reason: NAUSEA Pantoprazole Sodium (Protonix Iv) 40 mg IVPUSH BID [facility] Last Admin: 02/12/18 09:53 Dose: 40 mg Phenazopyridine HCl (Pyridium -) 100 mg PO Q8H PRN PRN Reason: dysuria Senna (Senna -) 2 tab PO HS PRN PRN Reason: CONSTIPATION Vancomycin HCl (Vancomycin Oral Solution) 125 mg PO Q6HPO [facility] Last Admin: 02/12/18 05:59 Dose: 125 mg a/p leukocytosis cdiff colitis- on po vancomcycin, iv flagyl added last night will increase po vancomycin to 500 qid, continue iv flagyl ( has missed some po vancomycin doses) blood cultures abd xray GI f/u copd exacerbation- reports breathing at baseline, lungs clear, on steroids
--- NOTE | 2018-02-12 11:17 | PN ---
Progress Note (short form) - Note Progress Note: 57 year old female history of CAD, HTN, CHF, HLD, COPD, BIPOLAR Disorder , was admitted for sob and productive cough, fever and exacerbation of COPD While on floor she has given oxycodone and she became unreponsive. There is no tonic clonic activity. Patient has improved back to her baseline and she had ct scan is normal. Patient has episode when she would twitch in her hand and eye, and she would be screaming , make my pain go away. She keep insisting , if she get pain medicaiton her seizure would go away. There is no post ictal confusio, tongue bite or incontinence. She did have history of opioid denpedense and back surgery in past. She was loaded with keppra and mri of brain was ordered. Neurological Examination Alert oriented x 3, she knows where she is and could not tell date exactly, she knew moth and year speech is normal eomi, pupils reactive, no face asymemtry moving all extremity uncooperative when checking leg strength and she says she feels weak all over sensation is normal ct head is normal mri ofbrain and eeg is ordered nad pending Assessment- Recurrent episode of twitching and crying at the same time, atypical features , clinically Unlikley to be epileptic seizure. Concur with MRI and EEG, - Continue keppra for now , she would not require AED. If she continue to have seizure episode, consider adding depakote and psych consult - Continue supportive care THnkaing you so much Tio Cerrato MD
[2018-02-12 12:18] LABS: ANISOCYTOSIS 0; MACROCYTOSIS 0; PLATELET ESTIMATE NORMAL
--- NOTE | 2018-02-12 12:30 | EKG ---
Test Reason : Blood Pressure : / mmHG Vent. Rate : 089 BPM Atrial Rate : 089 BPM P-R Int : 158 ms QRS Dur : 078 ms QT Int : 408 ms P-R-T Axes : 060 042 084 degrees QTc Int : 496 ms NORMAL SINUS RHYTHM POSSIBLE LEFT ATRIAL ENLARGEMENT NONSPECIFIC T WAVE ABNORMALITY ABNORMAL ECG WHEN COMPARED WITH ECG OF 12-FEB-2018 02:39, SINUS RHYTHM HAS REPLACED ATRIAL FIBRILLATION VENT. RATE HAS DECREASED BY [address] NO LONGER DEPRESSED IN ANTERIOR LEADS PATIENT MOVING DURING EKG Confirmed by BHARATHI HOYOS MD ([id number]) on 02/12/2018 12:30:10 PM Referred By: Santhosh DALTON Confirmed By:BHARATHI HOYOS MD
--- NOTE | 2018-02-12 12:36 | PN ---
Progress Note, Physician Chief Complaint: found with afib with RVR this AM. No complaints History of Present Illness: 57 year old woman with a PMHx of HTN, NIDDM, hyperlipidemia, CAD s/p stent in the past, diastolic CHF, COPD admitted with difficulty breathing and cough. Being treated for COPD exacerbation. No CHF. Echo normal EF. had episode of AF with RVR this am/last night. Given IV metoprolol, IV dilt, then her PO dilt. converted back to NSR. Echocardiogram 02/07/2018: Normal LV size, wall motion and systolic function, LVEF = 60-65%. Normal RV. Mild LA dilatation. Mild MR. Mild to moderate TR. 1) Chronic diastolic CHF with SOB and cough. Her symptoms are likely related to copd exacerbation. Being treated as per pulmonary. May change Lasix to PO 40 mg BID. 2) CAD s/p stent No recurrent chest pain. Continue aspirin Add statin. 3) HTN: still has systolic hypertension: May increase Diltiazem to 240 mg daily. Continue Lisinopril/Clonindine/hydralazine. - Current Medication List Current Medications: Active Medications Acetaminophen (Ofirmev Injection -) 1,000 mg IVPB Q6H PRN PRN Reason: PAIN LEVEL 6-10 Last Admin: 02/12/18 04:22 Dose: 1,000 mg Acetylcysteine (Mucomyst 20 Oral / Inh Use Only*) 400 mg NEB RBID [facility] Last Admin: 02/12/18 07:20 Dose: Not Given Albuterol Sulfate (Ventolin 0.083% Nebulizer Soln -) 1 amp NEB RQ4H [facility] Last Admin: 02/12/18 11:40 Dose: 1 amp Aspirin (Ecotrin -) 81 mg PO DAILY [facility] Last Admin: 02/12/18 09:53 Dose: 81 mg Budesonide/Formoterol Fumarate (Symbicort 160/4.5mcg -) 2 puff IH BID [facility] Last Admin: 02/11/18 21:08 Dose: 2 puff Clonidine (Catapres -) 0.1 mg PO BID [facility] Last Admin: 02/12/18 09:54 Dose: 0.1 mg Diltiazem HCl (Cardizem Cd -) 120 mg PO DAILY [facility] Last Admin: 02/12/18 09:54 Dose: Not Given Docusate Sodium (Colace -) 300 mg PO HS PRN PRN Reason: CONSTIPATION Duloxetine HCl (Cymbalta -) 60 mg PO DAILY [facility] Last Admin: 02/12/18 09:53 Dose: 60 mg Enalaprilat (Vasotec Injection -) 2.5 mg IVPB Q6H-IV [facility] Last Admin: 02/12/18 09:54 Dose: 2.5 mg Eucalyptus/Menthol/Phenol/Sorbitol (Cepastat Lozenge -) 1 each MM Q4H PRN PRN Reason: SORE THROAT Furosemide (Lasix Injection -) 40 mg IVPUSH BID@0600,1400 [facility] Last Admin: 02/12/18 06:53 Dose: 40 mg Gabapentin (Neurontin -) 300 mg PO Q8H PRN PRN Reason: PAIN Last Admin: 02/12/18 08:26 Dose: 300 mg Guaifenesin (Diabetic Tussin Dm -) 10 ml PO Q4H PRN PRN Reason: COUGH Hydralazine HCl (Apresoline -) 25 mg PO BID [facility] Last Admin: 02/12/18 09:53 Dose: 25 mg Metronidazole (Flagyl 500mg Premixed Ivpb -) 500 mg in 100 mls @ 100 mls/hr IVPB Q8H-IV [facility] Last Admin: 02/12/18 09:46 Dose: 100 mls/hr Potassium Chloride (Potassium Chloride 10 Meq Premix Ivpb -) 10 meq in 100 mls @ 100 mls/hr IVPB Q60M [facility] Stop: 02/12/18 12:59 Last Admin: 02/12/18 11:11 Dose: 100 mls/hr Potassium Chloride/Sodium Chloride (1/2ns+20meq Kcl) 20 meq in 1,000 mls @ 75 mls/hr IV ASDIR [facility] Last Admin: 02/12/18 10:11 Dose: 75 mls/hr Insulin Aspart (Novolog Vial Sliding Scale -) 1 vial SQ ACHS [facility]; Protocol Last Admin: 02/12/18 06:53 Dose: 2 units Insulin Aspart (Novolog Mix 70/30 Vial) 15 units SQ BIDAC [facility] Insulin Detemir (Levemir Vial) 40 units SQ BID@0700,2200 [facility] Last Admin: 02/11/18 21:06 Dose: 40 units Levetiracetam (Keppra Injection -) 1,000 mg IVPB BID [facility] Last Admin: 02/12/18 09:46 Dose: 1,000 mg Methylprednisolone Sodium Succinate (Solu-Medrol -) 30 mg IVPUSH DAILY [facility] Last Admin: 02/12/18 09:52 Dose: 30 mg Nicotine (Nicoderm Patch -) 21 mg TD DAILY [facility] Last Admin: 02/12/18 09:55 Dose: 21 mg Ondansetron HCl (Zofran Injection) 4 mg IVPUSH Q6H PRN PRN Reason: NAUSEA Pantoprazole Sodium (Protonix Iv) 40 mg IVPUSH BID [facility] Last Admin: 02/12/18 09:53 Dose: 40 mg Phenazopyridine HCl (Pyridium -) 100 mg PO Q8H PRN PRN Reason: dysuria Senna (Senna -) 2 tab PO HS PRN PRN Reason: CONSTIPATION Vancomycin HCl (Vancomycin Oral Solution) 500 mg PO Q6HPO [facility] Last Admin: 02/12/18 11:17 Dose: 500 mg - Objective Vital Signs: Vital Signs Temperature 99.5 F 02/12/18 05:00 Pulse Rate 146 H 02/12/18 09:43 Respiratory Rate 20 02/12/18 10:00 Blood Pressure 136/98 02/12/18 09:43 O2 Sat by Pulse Oximetry (%) 95 02/12/18 10:00 Constitutional: Yes: No Distress, Calm Eyes: Yes: EOM Intact HENT: Yes: Normocephalic Neck: Yes: Trachea Midline Cardiovascular: Yes: Regular Rate and Rhythm Respiratory: Yes: Cough, Poor Air Entry Gastrointestinal: Yes: Normal Bowel Sounds, Soft Edema: No Peripheral Pulses WNL: Yes Labs: CBC, BMP 02/12/18 06:10 02/12/18 06:10 INR, PTT INR 0.87 (0.83-1.09) 02/03/18 17:25 Assessment/Plan 57 year old woman with a PMHx of HTN, NIDDM, hyperlipidemia, CAD s/p stent in the past, diastolic CHF, COPD admitted with difficulty breathing and cough. Being treated for COPD exacerbation. No CHF. Echo normal EF. had episode of AF with RVR 02/12/18.. Given IV metoprolol, IV dilt, then her PO dilt. converted back to NSR. Echocardiogram 02/07/2018: Normal LV size, wall motion and systolic function, LVEF = 60-65%. Normal RV. Mild LA dilatation. Mild MR. Mild to moderate TR. 1) Chronic diastolic CHF with SOB and cough. Her symptoms are likely related to copd exacerbation. Being treated as per pulmonary. May change Lasix to PO 40 mg BID. 2) CAD s/p stent No recurrent chest pain. Continue aspirin Add statin. 3) HTN: better controlled. 4) PAF: CHADS2-VASC is 3 (sex, htn, dm) would start Eliquis 5 mg bid if no contraindication. Increase dilt as tolerated by BP and HR. TFT's would replete electrolytes as well. check k, mag and phos. would not give digoxin while hypokalemic. This can cause arrhythmias.
--- NOTE | 2018-02-12 12:46 | EKG ---
Test Reason : Blood Pressure : / mmHG Vent. Rate : 106 BPM Atrial Rate : 106 BPM P-R Int : 148 ms QRS Dur : 076 ms QT Int : 330 ms P-R-T Axes : 076 071 267 degrees QTc Int : 438 ms SINUS TACHYCARDIA BIATRIAL ENLARGEMENT ABNORMAL ECG Confirmed by BHARATHI HOYOS MD ([id number]) on 02/12/2018 12:46:40 PM Referred By: Confirmed By:BHARATHI HOYOS MD
[2018-02-12] MEDS: APIXABAN 5 MG TABLET PO SCH ×2 (12:49→22:30)
[2018-02-12] MEDS: BUDESONIDE/FORMETEROL FUMARATE 160/4.5 mcg INHALER IH SCH ×2 (13:50→22:38)
[2018-02-12 14:22] LABS: HBSAG SCREEN Negative (Negative); HEP B CORE AB, TOT Negative (Negative)
[2018-02-12] MEDS ORDERED: ENALAPRILAT DIHYDRATE 1.25 MG/1 ML VIAL ONE (15:09)
[2018-02-12] MEDS: MORPHINE SULFATE 2 MG/ML VIAL IM PRN ×2 (15:45→22:20)
--- NOTE | 2018-02-12 17:37 | PN ---
GI Progress Note Subjective: GI NOte: Looks much better despite rising WBC. Has hypokalemia and hyponatremia related to diarrheal losses. Discussed case with Dr Vázquez and agree with Flagyl IV and increased vanomycin dosing - Objective Vital Signs: Vital Signs Temperature 98.5 F 02/12/18 13:45 Pulse Rate 100 H 02/12/18 13:45 Respiratory Rate 20 02/12/18 13:45 Blood Pressure 136/98 02/12/18 09:43 O2 Sat by Pulse Oximetry (%) 95 02/12/18 10:00 Laboratory Tests 02/07/18 02/07/18 02/10/18 09:50 09:50 08:45 WBC 14.2 H Hgb Sodium 141 132 L Potassium Total Bilirubin 1.1 H 02/10/18 02/11/18 02/11/18 08:45 06:50 06:50 WBC 31.2 H* 37.1 H* Hgb 15.5 H Sodium 129 L Potassium Total Bilirubin 02/12/18 02/12/18 06:10 06:10 WBC 44.1 H* Hgb 16.0 H Sodium 133 L Potassium 2.8 L* Total Bilirubin Constitutional: Anxious ...Auscultate: Yes: Hyperactive Bowel Sounds ...Palpate: Yes: Soft, Other (nontender !) Labs: CBC, BMP 02/12/18 06:10 02/12/18 06:10 INR, PTT INR 0.87 (0.83-1.09) 02/03/18 17:25 Problem List - Problems (1) Abdominal pain Assessment/Plan: Resolving ? C diff colitis. Continue Vancomycin and Flagyl. Does not want diet advanced as yet. Code(s): R10.9 - UNSPECIFIED ABDOMINAL PAIN Qualifiers: Abdominal location: generalized (2) Colitis Code(s): K52.9 - NONINFECTIVE GASTROENTERITIS AND COLITIS, UNSPECIFIED (3) Heroin abuse Code(s): F11.10 - OPIOID ABUSE, UNCOMPLICATED (4) Diabetes mellitus with hyperosmolarity Code(s): E11.00 - TYPE 2 DIAB W HYPROSM W/O NONKET HYPRGLY-HYPROS COMA ([facility]) (5) ASHD (arteriosclerotic heart disease) Code(s): I25.10 - ATHSCL HEART DISEASE OF [place] CORONARY ARTERY W/O ANG PCTRS (6) COPD exacerbation Code(s): J44.1 - CHRONIC OBSTRUCTIVE PULMONARY DISEASE W (ACUTE) EXACERBATION (7) Cocaine abuse Code(s): F14.10 - COCAINE ABUSE, UNCOMPLICATED (8) Diarrhea Code(s): R19.7 - DIARRHEA, UNSPECIFIED Qualifiers: Diarrhea type: infectious Qualified Code(s): A09 - Infectious gastroenteritis and colitis, unspecified (9) Leukocytosis Code(s): D72.829 - ELEVATED WHITE BLOOD CELL COUNT, UNSPECIFIED (10) Bipolar II disorder Code(s): F31.81 - BIPOLAR II DISORDER (11) Hepatitis C Code(s): B19.20 - UNSPECIFIED VIRAL HEPATITIS C WITHOUT HEPATIC COMA Qualifiers: Viral hepatitis chronicity: unspecified Hepatic coma status: without hepatic coma Qualified Code(s): B19.20 - Unspecified viral hepatitis C without hepatic coma (12) C. difficile colitis Code(s): A04.72 - ENTEROCOLITIS D/T CLOSTRIDIUM DIFFICILE, NOT SPCF RECUR
[2018-02-12] MEDS ORDERED: INSULIN (NOVOLOG) ASPART 100 UNITS/ML 10ML VIAL ONE (22:32)
[2018-02-13] MEDS ORDERED: MORPHINE SULFATE 2 MG/ML VIAL IVPUSH ONE (01:16)
[2018-02-13] MEDS: ENALAPRILAT DIHYDRATE 2.5 MG/2 ML VIAL IVPB SCH ×4 (02:26→21:53)
[2018-02-13] MEDS: SODIUM CHLORIDE 0.45%/POT 20 MEQ/1,000 ML INFUS.BAG IV SCH ×2 (02:27→10:02)
[2018-02-13] MEDS: ALBUTEROL SO4 0.083% IH SOL 2.5 MG/3 ML VIAL.NEB. NEB SCH ×6 (04:32→20:56)
[2018-02-13] MEDS: VANCOMYCIN 250 MG/5 ML ORAL SOLUTION PO SCH ×4 (06:20→23:01)
[2018-02-13] MEDS: FUROSEMIDE 40 MG/4 ML INJECTABLE VIAL IVPUSH SCH ×2 (06:20→13:15)
[2018-02-13] MEDS: INSULIN (LEVEMIR) 100 UNITS/ML UNITS SQ SCH ×2 (06:24→22:07)
[2018-02-13] MEDS: INSULIN (NOVOLOG MIX 70/30) 100 UNITS/ML MDV SQ SCH ×2 (06:24→16:58)
[2018-02-13] MEDS: INSULIN SLIDING SCALE (NOVOLOG) 1 VIAL SQ SCH ×4 (06:25→21:53)
[2018-02-13] MEDS: ACETYLCYSTEINE 20% 200MG/ML 4 ML VIAL *FOR ORAL / INH USE ONLY NEB SCH ×2 (07:20→20:57)
[2018-02-13 07:40] LABS: BASO % 0.2 % (0-2.0); EOS % 0.3 % (0-4.5); HEMATOCRIT 44.7 % (32.4-45.2); HEMOGLOBIN 15.4 GM/dL (10.7-15.3); LYMPH % 6.7 % (8-40); MCH 31.1 pg (25.7-33.7); MCHC 34.3 g/dl (32.0-36.0); MEAN CELL VOLUME 90.6 fl (80-96); MEAN PLT VOLUME 9.2 fl (7.5-11.1); MONO % 7.1 % (3.8-10.2); NEUT % 85.7 % (42.8-82.8); PLATELET COUNT 220 K/MM3 (134-434); RBC 4.93 M/mm3 (3.60-5.2); RDW 13.7 % (11.6-15.6)
[2018-02-13 07:49] LABS: WHITE BLOOD COUNT 39.2 K/mm3 (4.0-10.0)
[2018-02-13] MEDS ORDERED: PT OWN MED DRAWER 7, Y5N ONE ×9 (08:09→22:08)
[2018-02-13] MEDS: MORPHINE SULFATE 2 MG/ML VIAL IM PRN ×3 (08:18→22:53)
[2018-02-13 08:28] LABS: ANION GAP 12 MMOL/L (8-16); BLOOD UREA NITROGEN 28 mg/dL (7-18); CALCIUM 7.7 mg/dL (8.5-10.1); CHLORIDE 89 mmol/L (98-107); CO2 35 mmol/L (21-32); CREATININE 0.4 mg/dL (0.55-1.3); GLUCOSE,RANDOM 59 mg/dL (74-106); POTASSIUM 3.2 mmol/L (3.5-5.1); SODIUM 135 mmol/L (136-145)
[2018-02-13] MEDS: methylPREDNISolone NA SUCC 40 MG/1 ML VIAL IVPUSH SCH (10:15)
[2018-02-13] MEDS: NICOTINE 21 MG/24 HOURS TOPICAL PATCH TD SCH (10:15)
[2018-02-13] MEDS: APIXABAN 5 MG TABLET PO SCH ×2 (10:17→21:52)
[2018-02-13] MEDS: LACTOBACILLUS ACIDOPHILUS 1 TABLET PO SCH (10:17)
[2018-02-13] MEDS: PANTOPRAZOLE SODIUM 40 MG VIAL IVPUSH SCH ×2 (10:17→21:52)
[2018-02-13] MEDS: ASPIRIN COATED 81 MG TABLET.EC PO SCH (10:17)
[2018-02-13] MEDS: cloNIDine HCL 0.1 MG TABLET PO SCH ×2 (10:17→21:52)
[2018-02-13] MEDS: hydrALAZINE HCL 25 MG TABLET (FP) PO SCH ×2 (10:17→21:52)
[2018-02-13] MEDS: DULoxetine HCL 30 MG CAPSULE.DR (FP) PO SCH (10:17)
[2018-02-13 10:36] LABS: ANISOCYTOSIS 1+; MACROCYTOSIS 1+; OVALOCYTE 1+; PLATELET ESTIMATE NORMAL; TEAR DROP CELLS 1+
[2018-02-13] MEDS: levETIRAcetam 500 MG/5 ML INJECTION VIAL IVPB SCH ×2 (10:55→21:53)
[2018-02-13] MEDS: BUDESONIDE/FORMETEROL FUMARATE 160/4.5 mcg INHALER IH SCH ×2 (10:55→21:54)
--- NOTE | 2018-02-13 11:44 | PN ---
Progress Note (short form) - Note Progress Note: PULMONARY PATIENT COMPLAINS OF ABD PAIN/DIARRHEA RECENT C.DIFF/RISING WBC'S H/O POLYSUBSTANCE ABUSE HEROIN/COCAINE AFEBRILE/VSS ANICTERIC DISTANT BUT CLEAR B/L BREATH SOUNDS S1S2 TACHY BS+/MILD DIFFUSE TENDERNESS TO PALP NO EDEMA LABS/MEDS/NOTES/IMAGES/MICRO REVIEWED S/P AMS possibly due to opioid intake resolved No evidence of acute RESIDENTIAL [employer] event H/O bipolar/anxiety disorder Acute C. Diff colitis Resolving Acute COPD Exacerbation UTI CAD CHF Pulmonary HTN DM Likely DB Smoker/poly substance abuser - continue tele monitoring - Prednisone tapered to 20 mg - inhaled bronchodilators standing and PRN - O2 to keep SpO2 >90% - lasix - monitor urine output, creatinine - continue antibiotics - outpt PFTs, PSG - smoking cessation discussed - antibiotics as per SAMRA HACKETT MD
--- NOTE | 2018-02-13 11:56 | PN ---
Progress Note, Physician - Current Medication List Current Medications: Active Medications Acetaminophen (Ofirmev Injection -) 1,000 mg IVPB Q6H PRN PRN Reason: PAIN LEVEL 6-10 Last Admin: 02/12/18 04:22 Dose: 1,000 mg Acetylcysteine (Mucomyst 20 Oral / Inh Use Only*) 400 mg NEB RBID [facility] Last Admin: 02/13/18 07:20 Dose: 400 mg Albuterol Sulfate (Ventolin 0.083% Nebulizer Soln -) 1 amp NEB RQ4H [facility] Last Admin: 02/13/18 11:46 Dose: Not Given Apixaban (Eliquis -) 5 mg PO BID [facility] Last Admin: 02/13/18 10:17 Dose: 5 mg Aspirin (Ecotrin -) 81 mg PO DAILY [facility] Last Admin: 02/13/18 10:17 Dose: 81 mg Budesonide/Formoterol Fumarate (Symbicort 160/4.5mcg -) 2 puff IH BID [facility] Last Admin: 02/13/18 10:55 Dose: 2 puff Clonidine (Catapres -) 0.1 mg PO BID [facility] Last Admin: 02/13/18 10:17 Dose: 0.1 mg Diltiazem HCl (Cardizem Cd -) 180 mg PO DAILY [facility] Last Admin: 02/13/18 10:17 Dose: 180 mg Docusate Sodium (Colace -) 300 mg PO HS PRN PRN Reason: CONSTIPATION Duloxetine HCl (Cymbalta -) 60 mg PO DAILY [facility] Last Admin: 02/13/18 10:17 Dose: 60 mg Enalaprilat (Vasotec Injection -) 2.5 mg IVPB Q6H-IV [facility] Last Admin: 02/13/18 09:55 Dose: 2.5 mg Eucalyptus/Menthol/Phenol/Sorbitol (Cepastat Lozenge -) 1 each MM Q4H PRN PRN Reason: SORE THROAT Furosemide (Lasix Injection -) 40 mg IVPUSH BID@0600,1400 [facility] Last Admin: 02/13/18 06:20 Dose: 40 mg Gabapentin (Neurontin -) 300 mg PO Q8H PRN PRN Reason: PAIN Last Admin: 02/12/18 08:26 Dose: 300 mg Guaifenesin (Diabetic Tussin Dm -) 10 ml PO Q4H PRN PRN Reason: COUGH Hydralazine HCl (Apresoline -) 25 mg PO BID [facility] Last Admin: 02/13/18 10:17 Dose: 25 mg Metronidazole (Flagyl 500mg Premixed Ivpb -) 500 mg in 100 mls @ 100 mls/hr IVPB Q8H-IV [facility] Last Admin: 02/13/18 02:26 Dose: 100 mls/hr Potassium Chloride/Sodium Chloride (1/2ns+20meq Kcl) 20 meq in 1,000 mls @ 75 mls/hr IV ASDIR [facility] Last Admin: 02/13/18 10:02 Dose: Not Given Potassium Chloride (Potassium Chloride 10 Meq Premix Ivpb -) 10 meq in 100 mls @ 100 mls/hr IVPB Q60M [facility] Stop: 02/13/18 13:59 Insulin Aspart (Novolog Vial Sliding Scale -) 1 vial SQ ACHS [facility]; Protocol Last Admin: 02/13/18 06:25 Dose: Not Given Insulin Aspart (Novolog Mix 70/30 Vial) 15 units SQ BIDAC [facility] Last Admin: 02/13/18 06:24 Dose: Not Given Insulin Detemir (Levemir Vial) 40 units SQ BID@0700,2200 [facility] Last Admin: 02/13/18 06:24 Dose: Not Given Lactobacillus Acidophilus (Bacid -) 1 tab PO DAILY [facility] Last Admin: 02/13/18 10:17 Dose: 1 tab Levetiracetam (Keppra Injection -) 1,000 mg IVPB BID [facility] Last Admin: 02/13/18 10:55 Dose: 1,000 mg Morphine Sulfate (Morphine Sulfate) 2 mg IM Q4H PRN PRN Reason: PAIN LEVEL 6-10 Last Admin: 02/13/18 08:18 Dose: 2 mg Nicotine (Nicoderm Patch -) 21 mg TD DAILY [facility] Last Admin: 02/13/18 10:15 Dose: 21 mg Ondansetron HCl (Zofran Injection) 4 mg IVPUSH Q6H PRN PRN Reason: NAUSEA Pantoprazole Sodium (Protonix Iv) 40 mg IVPUSH BID [facility] Last Admin: 02/13/18 10:17 Dose: 40 mg Phenazopyridine HCl (Pyridium -) 100 mg PO Q8H PRN PRN Reason: dysuria Prednisone (Deltasone -) 20 mg PO DAILY [facility] Senna (Senna -) 2 tab PO HS PRN PRN Reason: CONSTIPATION Vancomycin HCl (Vancomycin Oral Solution) 500 mg PO Q6HPO [facility] Last Admin: 02/13/18 06:20 Dose: 500 mg - Objective Vital Signs: Vital Signs Temperature 98.6 F 02/13/18 06:00 Pulse Rate 88 02/13/18 06:00 Respiratory Rate 20 02/13/18 06:00 Blood Pressure 143/75 02/13/18 06:00 O2 Sat by Pulse Oximetry (%) 94 L 02/13/18 01:00 EST Cardiovascular: Yes: Regular Rate and Rhythm Respiratory: Yes: Regular, CTA Bilaterally Gastrointestinal: Yes: Normal Bowel Sounds, Soft, Tenderness (mild) Labs: CBC, BMP 02/13/18 06:30 02/13/18 06:30 INR, PTT INR 0.87 (0.83-1.09) 02/03/18 17:25 Assessment/Plan - Problems (1) Congestive heart failure Assessment/Plan: -Cardiology consult -Daily weights -Nasal O2 PRN to keep SpO2>90% -Low sodium diabetic diet -Echo pending Code(s): I50.9 - HEART FAILURE, UNSPECIFIED (2) COPD exacerbation Assessment/Plan: -Pulmonary consult -Steroids -cxr and abg noted -Nasal O2 to keep SpO2>90% -Bronchodilators Code(s): J44.1 - CHRONIC OBSTRUCTIVE PULMONARY DISEASE W (ACUTE) EXACERBATION (3) Type 2 diabetes mellitus with other circulatory complications Assessment/Plan: -BGM AC HS -Diabetic low sodium diet -Insulin: Increase levemir to 40 units BID and novolog sliding scale -Endocrinology consult Code(s): E11.59 - TYPE 2 DIABETES MELLITUS WITH OTH CIRCULATORY COMPLICATIONS (4) Change in MS-not consistent w seizure Assessment/Plan: -Neuro on board -imaging negative -Monitor (5) Abdominal pain--colitis Assessment/Plan: -GI consult appreciated -abx per id--vanco and flagyl -follow labs -morphine prn (6) Tachycardia--PAF Assessment/Plan: -now in sinus -EKG -Cardio follow up--AC-eliquis -Lopressor 5 mg given -Continue with Cardizem
--- NOTE | 2018-02-13 12:45 | PN ---
Progress Note (short form) - Note Progress Note: nurse reports no diarrhea today Vital Signs Period Temp Pulse Resp BP Sys/Sultana Pulse Ox Last 24 Hr 98.2 F-98.9 F 88-102 18-20 134-149/60-75 94-95 cor-rrr lungs decreased bs at bases abd soft,nt, +bs, diffuse discomfort to palpation ext no edema CBC, BMP 02/13/18 06:30 02/13/18 06:30 Microbiology 02/12/18 11:05 Blood - Peripheral Venous Blood Culture - Preliminary NO GROWTH OBTAINED AFTER 24 HOURS, INCUBATION TO CONTINUE FOR 4 DAYS. 02/11/18 04:00 Colon Fluid Gram Stain - Final 02/11/18 04:15 Colon Fluid Salmonella/Shigella Culture - Preliminary Yeast Like Organism 02/11/18 04:15 Colon Fluid Campylobacter Culture - Preliminary 02/11/18 04:15 Colon Fluid Yersinia Culture - Preliminary NO ENTERIC PATHOGENS, 24 HOURS, ON PRIMARY PLATES 02/11/18 04:15 Colon Fluid Vibrio Culture - Final NO GROWTH OF VIBRIO SPECIES OBTAINED 02/11/18 04:15 Colon Fluid Escherichia coli 0157 Culture - Final NO GROWTH OF E COLI 0157 OBTAINED 02/11/18 04:00 Stool Clostridium difficile Antigen ([facility]) - Final 02/11/18 04:00 Stool Clostridium difficile Toxin Assay - Final 02/08/18 17:10 Sputum - Expectorated Gram Stain - Final 02/08/18 17:10 Sputum - Expectorated Sputum Culture - Final Yeast Like Organism 02/03/18 18:35 Blood - Peripheral Venous Blood Culture - Final NO GROWTH AFTER 5 DAYS INCUBATION 02/03/18 18:35 Blood - Peripheral Venous Blood Culture - Final NO GROWTH AFTER 5 DAYS INCUBATION 02/04/18 01:41 Urine - Urine Clean Catch Urine Culture - Final Escherichia Coli 02/04/18 18:30 Nares - Mrsa Screen - Right MRSA Screen - Final NO MRSA ISOLATED 02/04/18 18:30 Nares - Mrsa Screen - Left MRSA Screen - Final NO MRSA ISOLATED 02/03/18 18:45 Nasopharyngeal Swab Influenza Types A,B Antigen - Final 02/03/18 18:45 Nasopharyngeal Swab - Final a/p leukocytosis cdiff colitis- on po vancomcycin, iv flagyl , diarrhea improved per nursing staff blood cultures ordered abd xray ordered copd exacerbation- reports breathing at baseline, lungs clear, on steroids
--- NOTE | 2018-02-13 12:49 | PN ---
Progress Note, Physician Chief Complaint: no further afib on tele No complaints History of Present Illness: 57 year old woman with a PMHx of HTN, NIDDM, hyperlipidemia, CAD s/p stent in the past, diastolic CHF, COPD admitted with difficulty breathing and cough. Being treated for COPD exacerbation. No CHF. Echo normal EF. had episode of AF with RVR 02/12/18. Given IV metoprolol, IV dilt, then her PO dilt. converted back to NSR. Echocardiogram 02/07/2018: Normal LV size, wall motion and systolic function, LVEF = 60-65%. Normal RV. Mild LA dilatation. Mild MR. Mild to moderate TR. started on Eliquis - Current Medication List Current Medications: Active Medications Acetaminophen (Ofirmev Injection -) 1,000 mg IVPB Q6H PRN PRN Reason: PAIN LEVEL 6-10 Last Admin: 02/12/18 04:22 Dose: 1,000 mg Acetylcysteine (Mucomyst 20 Oral / Inh Use Only*) 400 mg NEB RBID [facility] Last Admin: 02/13/18 07:20 Dose: 400 mg Albuterol Sulfate (Ventolin 0.083% Nebulizer Soln -) 1 amp NEB RQ4H [facility] Last Admin: 02/13/18 11:46 Dose: Not Given Apixaban (Eliquis -) 5 mg PO BID [facility] Last Admin: 02/13/18 10:17 Dose: 5 mg Aspirin (Ecotrin -) 81 mg PO DAILY [facility] Last Admin: 02/13/18 10:17 Dose: 81 mg Budesonide/Formoterol Fumarate (Symbicort 160/4.5mcg -) 2 puff IH BID [facility] Last Admin: 02/13/18 10:55 Dose: 2 puff Clonidine (Catapres -) 0.1 mg PO BID [facility] Last Admin: 02/13/18 10:17 Dose: 0.1 mg Diltiazem HCl (Cardizem Cd -) 180 mg PO DAILY [facility] Last Admin: 02/13/18 10:17 Dose: 180 mg Docusate Sodium (Colace -) 300 mg PO HS PRN PRN Reason: CONSTIPATION Duloxetine HCl (Cymbalta -) 60 mg PO DAILY [facility] Last Admin: 02/13/18 10:17 Dose: 60 mg Enalaprilat (Vasotec Injection -) 2.5 mg IVPB Q6H-IV [facility] Last Admin: 02/13/18 09:55 Dose: 2.5 mg Eucalyptus/Menthol/Phenol/Sorbitol (Cepastat Lozenge -) 1 each MM Q4H PRN PRN Reason: SORE THROAT Furosemide (Lasix Injection -) 40 mg IVPUSH BID@0600,1400 [facility] Last Admin: 02/13/18 06:20 Dose: 40 mg Gabapentin (Neurontin -) 300 mg PO Q8H PRN PRN Reason: PAIN Last Admin: 02/12/18 08:26 Dose: 300 mg Guaifenesin (Diabetic Tussin Dm -) 10 ml PO Q4H PRN PRN Reason: COUGH Hydralazine HCl (Apresoline -) 25 mg PO BID [facility] Last Admin: 02/13/18 10:17 Dose: 25 mg Metronidazole (Flagyl 500mg Premixed Ivpb -) 500 mg in 100 mls @ 100 mls/hr IVPB Q8H-IV [facility] Last Admin: 02/13/18 02:26 Dose: 100 mls/hr Potassium Chloride/Sodium Chloride (1/2ns+20meq Kcl) 20 meq in 1,000 mls @ 75 mls/hr IV ASDIR [facility] Last Admin: 02/13/18 10:02 Dose: Not Given Potassium Chloride (Potassium Chloride 10 Meq Premix Ivpb -) 10 meq in 100 mls @ 100 mls/hr IVPB Q60M [facility] Stop: 02/13/18 13:59 Insulin Aspart (Novolog Vial Sliding Scale -) 1 vial SQ ACHS [facility]; Protocol Last Admin: 02/13/18 12:00 Dose: Not Given Insulin Aspart (Novolog Mix 70/30 Vial) 15 units SQ BIDAC [facility] Last Admin: 02/13/18 06:24 Dose: Not Given Insulin Detemir (Levemir Vial) 40 units SQ BID@0700,2200 [facility] Last Admin: 02/13/18 06:24 Dose: Not Given Lactobacillus Acidophilus (Bacid -) 1 tab PO DAILY [facility] Last Admin: 02/13/18 10:17 Dose: 1 tab Levetiracetam (Keppra Injection -) 1,000 mg IVPB BID [facility] Last Admin: 02/13/18 10:55 Dose: 1,000 mg Morphine Sulfate (Morphine Sulfate) 2 mg IM Q4H PRN PRN Reason: PAIN LEVEL 6-10 Last Admin: 02/13/18 08:18 Dose: 2 mg Nicotine (Nicoderm Patch -) 21 mg TD DAILY [facility] Last Admin: 02/13/18 10:15 Dose: 21 mg Ondansetron HCl (Zofran Injection) 4 mg IVPUSH Q6H PRN PRN Reason: NAUSEA Pantoprazole Sodium (Protonix Iv) 40 mg IVPUSH BID [facility] Last Admin: 02/13/18 10:17 Dose: 40 mg Phenazopyridine HCl (Pyridium -) 100 mg PO Q8H PRN PRN Reason: dysuria Prednisone (Deltasone -) 20 mg PO DAILY [facility] Senna (Senna -) 2 tab PO HS PRN PRN Reason: CONSTIPATION Vancomycin HCl (Vancomycin Oral Solution) 500 mg PO Q6HPO [facility] Last Admin: 02/13/18 06:20 Dose: 500 mg - Objective Vital Signs: Vital Signs Temperature 98.6 F 02/13/18 06:00 Pulse Rate 88 02/13/18 06:00 Respiratory Rate 20 02/13/18 06:00 Blood Pressure 143/75 02/13/18 06:00 O2 Sat by Pulse Oximetry (%) 94 L 02/13/18 01:00 EST Constitutional: Yes: No Distress, Calm Eyes: Yes: Conjunctiva Clear, EOM Intact HENT: Yes: Atraumatic, Normocephalic Neck: Yes: Supple, Thyromegaly Cardiovascular: Yes: Regular Rate and Rhythm Respiratory: Yes: Rhonchi Gastrointestinal: Yes: Normal Bowel Sounds, Soft Edema: No Labs: CBC, BMP 02/13/18 06:30 02/13/18 06:30 INR, PTT INR 0.87 (0.83-1.09) 02/03/18 17:25 Assessment/Plan 57 year old woman with a PMHx of HTN, NIDDM, hyperlipidemia, CAD s/p stent in the past, diastolic CHF, COPD admitted with difficulty breathing and cough. Being treated for COPD exacerbation. No CHF. Echo normal EF. had episode of AF with RVR 02/12/18.. Given IV metoprolol, IV dilt, then her PO dilt. converted back to NSR. Echocardiogram 02/07/2018: Normal LV size, wall motion and systolic function, LVEF = 60-65%. Normal RV. Mild LA dilatation. Mild MR. Mild to moderate TR. 1) Chronic diastolic CHF with SOB and cough. Her symptoms are likely related to copd exacerbation. Being treated as per pulmonary. May change Lasix to PO 40 mg BID. 2) CAD s/p stent No recurrent chest pain. Continue aspirin Add statin. 3) HTN: better controlled. 4) PAF: CHADS2-VASC is 3 (sex, htn, dm) started Eliquis 5 mg bid. Increase dilt as tolerated by BP and HR. TFT's would replete electrolytes as well. check k, mag and phos. would not give digoxin while hypokalemic. This can cause arrhythmias.
[2018-02-13] MEDS: KCL 10 MEQ IVPB 10 MEQ/100 ML INFUS.BAG IVPB SCH ×2 (15:18→16:29)
--- NOTE | 2018-02-13 15:30 | PN ---
GI Progress Note Subjective: GI NOte: Continues to improve but diarrhea persists. WBC down to 39K. Abdominal cramps have subsided. - Objective Vital Signs: Vital Signs Temperature 98.7 F 02/13/18 10:00 Pulse Rate 86 02/13/18 10:00 Respiratory Rate 20 02/13/18 10:00 Blood Pressure 133/83 02/13/18 10:00 O2 Sat by Pulse Oximetry (%) 95 02/13/18 09:00 Laboratory Tests 02/07/18 02/11/18 02/12/18 09:50 06:50 06:10 WBC 14.2 H 37.1 H* 44.1 H* 02/13/18 06:30 WBC 39.2 H* Constitutional: Anxious ...Auscultate: Yes: Normoactive Bowel Sounds ...Palpate: Yes: Soft, Other (nontender) Labs: CBC, BMP 02/13/18 06:30 02/13/18 06:30 INR, PTT INR 0.87 (0.83-1.09) 02/03/18 17:25 Problem List - Problems (1) Abdominal pain Assessment/Plan: Resolving C diff colitis. Continue Vancomycin and Flagyl. Will try soft, lactose free diet Code(s): R10.9 - UNSPECIFIED ABDOMINAL PAIN Qualifiers: Abdominal location: generalized Qualified Code(s): R10.84 - Generalized abdominal pain (2) Colitis Code(s): K52.9 - NONINFECTIVE GASTROENTERITIS AND COLITIS, UNSPECIFIED (3) Heroin abuse Code(s): F11.10 - OPIOID ABUSE, UNCOMPLICATED (4) Diabetes mellitus with hyperosmolarity Code(s): E11.00 - TYPE 2 DIAB W HYPROSM W/O NONKET HYPRGLY-HYPROS COMA ([facility]) (5) ASHD (arteriosclerotic heart disease) Code(s): I25.10 - ATHSCL HEART DISEASE OF [place] CORONARY ARTERY W/O ANG PCTRS (6) COPD exacerbation Code(s): J44.1 - CHRONIC OBSTRUCTIVE PULMONARY DISEASE W (ACUTE) EXACERBATION (7) Cocaine abuse Code(s): F14.10 - COCAINE ABUSE, UNCOMPLICATED (8) Diarrhea Code(s): R19.7 - DIARRHEA, UNSPECIFIED Qualifiers: Diarrhea type: infectious Qualified Code(s): A09 - Infectious gastroenteritis and colitis, unspecified (9) Leukocytosis Code(s): D72.829 - ELEVATED WHITE BLOOD CELL COUNT, UNSPECIFIED (10) Bipolar II disorder Code(s): F31.81 - BIPOLAR II DISORDER (11) Hepatitis C Code(s): B19.20 - UNSPECIFIED VIRAL HEPATITIS C WITHOUT HEPATIC COMA Qualifiers: Viral hepatitis chronicity: unspecified Hepatic coma status: without hepatic coma Qualified Code(s): B19.20 - Unspecified viral hepatitis C without hepatic coma (12) C. difficile colitis Code(s): A04.72 - ENTEROCOLITIS D/T CLOSTRIDIUM DIFFICILE, NOT SPCF RECUR
--- NOTE | 2018-02-13 16:40 | PN ---
Progress Note (short form) - Note Progress Note: 57 year old female history of CAD, HTN, CHF, HLD, COPD, BIPOLAR Disorder , was admitted for sob and productive cough, fever and exacerbation of COPD While on floor she has given oxycodone and she became unreponsive. There is no tonic clonic activity. Patient has improved back to her baseline and she had ct scan is normal. Patient has episode when she would twitch in her hand and eye, and she would be screaming , make my pain go away. She keep insisting , if she get pain medicaiton her seizure would go away. There is no post ictal confusio, tongue bite or incontinence. She was loaded with keppra and has not had any seizure since yesterday. She is being treated with morphine for colitis. Her eeg is for tomorrow. Neurological Examination Alert oriented x 3, speech is normal eomi, pupils reactive, no face asymemtry moving all extremity uncooperative when checking leg strength and she says she feels weak all over sensation is normal ct head is normal mri of brain pending EEG pen ding Assessment- Recurrent episode of twitching and crying at the same time, atypical features , clinically Unlikley to be epileptic seizure. mri of brain and eeg pending - Continue keppra for now , she would not require AED. If she continue to have seizure episode, consider adding depakote and psych consult - Continue supportive care THnkaing you so much Tio Cerrato MD
[2018-02-13] MEDS ORDERED: INSULIN (NOVOLOG) ASPART 100 UNITS/ML 10ML VIAL ONE (21:48)
[2018-02-14] MEDS ORDERED: PT OWN MED DRAWER 7, Y5N ONE ×2 (01:59→21:33)
[2018-02-14] MEDS: ENALAPRILAT DIHYDRATE 2.5 MG/2 ML VIAL IVPB SCH ×4 (02:13→21:23)
[2018-02-14] MEDS ORDERED: INSULIN (NOVOLOG) ASPART 100 UNITS/ML 10ML VIAL ONE ×2 (06:02→11:08)
[2018-02-14] MEDS ORDERED: INSULIN (LEVEMIR) 100 UNITS/ML UNITS SQ ONE (06:02)
[2018-02-14] MEDS: MORPHINE SULFATE 2 MG/ML VIAL IM PRN ×4 (06:12→21:28)
[2018-02-14] MEDS: VANCOMYCIN 250 MG/5 ML ORAL SOLUTION PO SCH ×4 (06:13→23:06)
[2018-02-14] MEDS: SODIUM CHLORIDE 0.45%/POT 20 MEQ/1,000 ML INFUS.BAG IV SCH ×2 (06:16→09:19)
[2018-02-14] MEDS: INSULIN (NOVOLOG MIX 70/30) 100 UNITS/ML MDV SQ SCH ×2 (06:40→17:09)
[2018-02-14] MEDS: FUROSEMIDE 40 MG/4 ML INJECTABLE VIAL IVPUSH SCH (06:40)
[2018-02-14] MEDS: INSULIN (LEVEMIR) 100 UNITS/ML UNITS SQ SCH ×2 (06:40→21:31)
[2018-02-14] MEDS: INSULIN SLIDING SCALE (NOVOLOG) 1 VIAL SQ SCH ×4 (06:41→21:31)
[2018-02-14 07:22] LABS: BASO % 0.2 % (0-2.0); EOS % 0.1 % (0-4.5); HEMATOCRIT 43.4 % (32.4-45.2); HEMOGLOBIN 14.9 GM/dL (10.7-15.3); LYMPH % 7.7 % (8-40); MCH 31.1 pg (25.7-33.7); MCHC 34.4 g/dl (32.0-36.0); MEAN CELL VOLUME 90.5 fl (80-96); MONO % 8.4 % (3.8-10.2); NEUT % 83.6 % (42.8-82.8); PLATELET COUNT 275 K/MM3 (134-434); RBC 4.79 M/mm3 (3.60-5.2); RDW 13.7 % (11.6-15.6)
[2018-02-14 07:54] LABS: ALK PHOS 82 U/L (45-117); ANION GAP 11 MMOL/L (8-16); BILIRUBIN,TOTAL 0.5 mg/dL (0.2-1); BLOOD UREA NITROGEN 23 mg/dL (7-18); CALCIUM 7.7 mg/dL (8.5-10.1); CHLORIDE 89 mmol/L (98-107); CO2 34 mmol/L (21-32); CREATININE 0.4 mg/dL (0.55-1.3); GLUCOSE,RANDOM 222 mg/dL (74-106); POTASSIUM 3.6 mmol/L (3.5-5.1); SGOT/AST 18 U/L (15-37); SGPT/ALT 25 U/L (13-61); SODIUM 134 mmol/L (136-145); TOT PROT 5.5 g/dl (6.4-8.2)
[2018-02-14] MEDS: ACETYLCYSTEINE 20% 200MG/ML 4 ML VIAL *FOR ORAL / INH USE ONLY NEB SCH ×2 (07:57→19:41)
[2018-02-14] MEDS: ALBUTEROL SO4 0.083% IH SOL 2.5 MG/3 ML VIAL.NEB. NEB SCH ×4 (07:57→19:41)
[2018-02-14] MEDS ORDERED: ENALAPRILAT DIHYDRATE 1.25 MG/1 ML VIAL ONE (08:55)
[2018-02-14] MEDS: levETIRAcetam 500 MG/5 ML INJECTION VIAL IVPB SCH ×2 (09:37→21:22)
[2018-02-14] MEDS: hydrALAZINE HCL 25 MG TABLET (FP) PO SCH ×2 (09:37→21:22)
[2018-02-14] MEDS: NICOTINE 21 MG/24 HOURS TOPICAL PATCH TD SCH (09:37)
[2018-02-14] MEDS: predniSONE 20 MG TABLET (UD) PO SCH (09:37)
[2018-02-14] MEDS: BUDESONIDE/FORMETEROL FUMARATE 160/4.5 mcg INHALER IH SCH ×2 (09:37→21:23)
[2018-02-14] MEDS: cloNIDine HCL 0.1 MG TABLET PO SCH ×2 (09:38→21:22)
[2018-02-14] MEDS: DULoxetine HCL 30 MG CAPSULE.DR (FP) PO SCH (09:38)
[2018-02-14] MEDS: LACTOBACILLUS ACIDOPHILUS 1 TABLET PO SCH (09:38)
[2018-02-14] MEDS: PANTOPRAZOLE SODIUM 40 MG VIAL IVPUSH SCH ×2 (09:38→21:23)
[2018-02-14] MEDS: APIXABAN 5 MG TABLET PO SCH ×2 (09:38→21:22)
[2018-02-14] MEDS: ASPIRIN COATED 81 MG TABLET.EC PO SCH (09:38)
[2018-02-14] MEDS ORDERED: SODIUM CHLORIDE 0.45%/POT 20 MEQ/1,000 ML INFUS.BAG IV SCH (10:35)
--- NOTE | 2018-02-14 10:38 | PN ---
Progress Note, Physician Chief Complaint: SOB UTI History of Present Illness: Feels better No respiratory distress UA +1 blood +3 leuks, hx of Ecoli UTI Diarrhea improving Seen by ID, on PO vanco and IV flagyl MRI and EEG pending for twitching of her upper extremities, seen by Neurology On tele for episode of NATALIE on 02/12-seen by Cardiology BP elevated - Current Medication List Current Medications: Active Medications Acetaminophen (Ofirmev Injection -) 1,000 mg IVPB Q6H PRN PRN Reason: PAIN LEVEL 6-10 Last Admin: 02/12/18 04:22 Dose: 1,000 mg Acetylcysteine (Mucomyst 20 Oral / Inh Use Only*) 400 mg NEB RBID [facility] Last Admin: 02/14/18 07:57 Dose: Not Given Albuterol Sulfate (Ventolin 0.083% Nebulizer Soln -) 1 amp NEB RQ4H [facility] Last Admin: 02/14/18 07:57 Dose: Not Given Apixaban (Eliquis -) 5 mg PO BID [facility] Last Admin: 02/14/18 09:38 Dose: 5 mg Aspirin (Ecotrin -) 81 mg PO DAILY [facility] Last Admin: 02/14/18 09:38 Dose: 81 mg Atorvastatin Calcium (Lipitor -) 20 mg PO HS [facility] Budesonide/Formoterol Fumarate (Symbicort 160/4.5mcg -) 2 puff IH BID [facility] Last Admin: 02/14/18 09:37 Dose: 2 puff Clonidine (Catapres -) 0.1 mg PO BID [facility] Last Admin: 02/14/18 09:38 Dose: 0.1 mg Diltiazem HCl (Cardizem Cd -) 180 mg PO DAILY [facility] Last Admin: 02/14/18 09:38 Dose: 180 mg Docusate Sodium (Colace -) 300 mg PO HS PRN PRN Reason: CONSTIPATION Duloxetine HCl (Cymbalta -) 60 mg PO DAILY [facility] Last Admin: 02/14/18 09:38 Dose: 60 mg Enalaprilat (Vasotec Injection -) 2.5 mg IVPB Q6H-IV [facility] Last Admin: 02/14/18 09:38 Dose: 2.5 mg Eucalyptus/Menthol/Phenol/Sorbitol (Cepastat Lozenge -) 1 each MM Q4H PRN PRN Reason: SORE THROAT Furosemide (Lasix Injection -) 40 mg IVPUSH BID@0600,1400 [facility] Last Admin: 02/14/18 06:40 Dose: 40 mg Gabapentin (Neurontin -) 300 mg PO Q8H PRN PRN Reason: PAIN Last Admin: 02/12/18 08:26 Dose: 300 mg Guaifenesin (Diabetic Tussin Dm -) 10 ml PO Q4H PRN PRN Reason: COUGH Hydralazine HCl (Apresoline -) 25 mg PO BID [facility] Last Admin: 02/14/18 09:37 Dose: 25 mg Metronidazole (Flagyl 500mg Premixed Ivpb -) 500 mg in 100 mls @ 100 mls/hr IVPB Q8H-IV [facility] Last Admin: 02/14/18 09:37 Dose: 100 mls/hr Potassium Chloride/Sodium Chloride (1/2ns+20meq Kcl) 20 meq in 1,000 mls @ 33 mls/hr IV ASDIR [facility] Insulin Aspart (Novolog Vial Sliding Scale -) 1 vial SQ ACHS [facility]; Protocol Last Admin: 02/14/18 06:41 Dose: 3 units Insulin Aspart (Novolog Mix 70/30 Vial) 15 units SQ BIDAC [facility] Last Admin: 02/14/18 06:40 Dose: 15 units Insulin Detemir (Levemir Vial) 40 units SQ BID@0700,2200 [facility] Last Admin: 02/14/18 06:40 Dose: 40 units Lactobacillus Acidophilus (Bacid -) 1 tab PO DAILY [facility] Last Admin: 02/14/18 09:38 Dose: 1 tab Levetiracetam (Keppra Injection -) 1,000 mg IVPB BID [facility] Last Admin: 02/14/18 09:37 Dose: 1,000 mg Morphine Sulfate (Morphine Sulfate) 2 mg IM Q4H PRN PRN Reason: PAIN LEVEL 6-10 Last Admin: 02/14/18 06:12 Dose: 2 mg Nicotine (Nicoderm Patch -) 21 mg TD DAILY [facility] Last Admin: 02/14/18 09:37 Dose: 21 mg Ondansetron HCl (Zofran Injection) 4 mg IVPUSH Q6H PRN PRN Reason: NAUSEA Pantoprazole Sodium (Protonix Iv) 40 mg IVPUSH BID [facility] Last Admin: 02/14/18 09:38 Dose: 40 mg Phenazopyridine HCl (Pyridium -) 100 mg PO Q8H PRN PRN Reason: dysuria Potassium Chloride (K-Dur -) 20 meq PO DAILY [facility] Prednisone (Deltasone -) 20 mg PO DAILY [facility] Last Admin: 02/14/18 09:37 Dose: 20 mg Senna (Senna -) 2 tab PO HS PRN PRN Reason: CONSTIPATION Vancomycin HCl (Vancomycin Oral Solution) 500 mg PO Q6HPO [facility] Last Admin: 02/14/18 06:13 Dose: 500 mg - Objective Vital Signs: Vital Signs Temperature 100 F H 02/14/18 09:23 Pulse Rate 86 02/14/18 09:23 Respiratory Rate 22 H 02/14/18 09:23 Blood Pressure 177/86 H 02/14/18 09:23 O2 Sat by Pulse Oximetry (%) 93 L 02/13/18 20:29 Constitutional: Yes: Well Nourished, No Distress, Calm Cardiovascular: Yes: Pulse Irregular Respiratory: Yes: Regular Gastrointestinal: Yes: Normal Bowel Sounds, Abdomen, Obese, Tenderness (diffuse) Genitourinary: Yes: WNL Musculoskeletal: Yes: WNL Extremities: Yes: WNL Edema: No Peripheral Pulses WNL: Yes Neurological: Yes: Alert, Oriented Psychiatric: Yes: Alert, Oriented, Other (dysphoric) Labs: CBC, BMP 02/14/18 05:50 02/14/18 05:50 INR, PTT INR 0.87 (0.83-1.09) 02/03/18 17:25 Problem List - Problems (1) Congestive heart failure Assessment/Plan: -Cardiology consult -change Furosemide to 40 mg po bid -Daily weights -Nasal O2 PRN to keep SpO2>90% -Low sodium diabetic diet -Echo reviewed Code(s): I50.9 - HEART FAILURE, UNSPECIFIED (2) COPD exacerbation Assessment/Plan: -Pulmonary consult -On prednisone 20 mg po daily -Nasal O2 to keep SpO2>90% -Bronchodilators Code(s): J44.1 - CHRONIC OBSTRUCTIVE PULMONARY DISEASE W (ACUTE) EXACERBATION (3) Type 2 diabetes mellitus with other circulatory complications Assessment/Plan: -BGM AC HS -Diabetic low sodium diet -Insulin: Increase levemir to 40 units BID and novolog sliding scale -Also on 70/30 15 U BID -Endocrinology consult Code(s): E11.59 - TYPE 2 DIABETES MELLITUS WITH OTH CIRCULATORY COMPLICATIONS (4) UTI (urinary tract infection) Assessment/Plan: -UA +1 blood +3 leuks -UC: 02/04/18 01:41 Urine - Urine Clean Catch Urine Culture - Final Escherichia Coli -afebrile -treated with IV abx -ID on board Code(s): N39.0 - URINARY TRACT INFECTION, SITE NOT SPECIFIED (5) Paroxysmal A-fib Assessment/Plan: -Tele monitor -rate controlled now -Seen by Cardiology -Started on Eliquis -probably exacerbated by acute disease process Code(s): I48.0 - PAROXYSMAL ATRIAL FIBRILLATION (6) C. difficile colitis Assessment/Plan: -GI and ID on board -On PO Vanco and IV flagyl -diarrhea improving along with abdominal cramping Code(s): A04.72 - ENTEROCOLITIS D/T CLOSTRIDIUM DIFFICILE, NOT SPCF RECUR (7) Hypokalemia Code(s): E87.6 - HYPOKALEMIA (8) CAD (coronary artery disease) Assessment/Plan: -Cardiology consult -On ASA 81 mg po daily -Added atorvastatin for LDL of 112 mg/dl, goal <70 mg/dl Code(s): I25.10 - ATHSCL HEART DISEASE OF [place] CORONARY ARTERY W/O ANG PCTRS (9) Sepsis Assessment/Plan: -Repeat BC pending -febrile overnight - Code(s): A41.9 - SEPSIS, UNSPECIFIED ORGANISM Assessment/Plan see problem list Physical therapy
[2018-02-14] MEDS: POTASSIUM CHLORIDE TABS 20 MEQ TABLET.ER (FP) PO SCH (11:18)
[2018-02-14] MEDS: GABAPENTIN 300 MG CAPSULE (FP) PO PRN ×2 (11:18→21:22)
[2018-02-14] MEDS: ACETAMINOPHEN 1000 MG/100 ML VIAL (NON FORMULARY) IVPB PRN (14:16)
[2018-02-14] MEDS: FUROSEMIDE 40 MG TABLET (FP) PO SCH (14:17)
--- NOTE | 2018-02-14 14:21 | PN ---
Progress Note, Physician History of Present Illness: Awake, but confused Supine in bed Offers no complaints Denies abdominal pain Staff reports one loose BM today Low grade temp WBC improved 26K - Current Medication List Current Medications: Active Medications Acetaminophen (Ofirmev Injection -) 1,000 mg IVPB Q6H PRN PRN Reason: PAIN LEVEL 6-10 Last Admin: 02/12/18 04:22 Dose: 1,000 mg Acetylcysteine (Mucomyst 20 Oral / Inh Use Only*) 400 mg NEB RBID [facility] Last Admin: 02/14/18 07:57 Dose: Not Given Albuterol Sulfate (Ventolin 0.083% Nebulizer Soln -) 1 amp NEB RQ4H [facility] Last Admin: 02/14/18 11:02 Dose: Not Given Apixaban (Eliquis -) 5 mg PO BID [facility] Last Admin: 02/14/18 09:38 Dose: 5 mg Aspirin (Ecotrin -) 81 mg PO DAILY [facility] Last Admin: 02/14/18 09:38 Dose: 81 mg Atorvastatin Calcium (Lipitor -) 20 mg PO HS [facility] Budesonide/Formoterol Fumarate (Symbicort 160/4.5mcg -) 2 puff IH BID [facility] Last Admin: 02/14/18 09:37 Dose: 2 puff Clonidine (Catapres -) 0.1 mg PO BID [facility] Last Admin: 02/14/18 09:38 Dose: 0.1 mg Diltiazem HCl (Cardizem Cd -) 180 mg PO DAILY [facility] Last Admin: 02/14/18 09:38 Dose: 180 mg Docusate Sodium (Colace -) 300 mg PO HS PRN PRN Reason: CONSTIPATION Duloxetine HCl (Cymbalta -) 60 mg PO DAILY [facility] Last Admin: 02/14/18 09:38 Dose: 60 mg Enalaprilat (Vasotec Injection -) 2.5 mg IVPB Q6H-IV [facility] Last Admin: 02/14/18 09:38 Dose: 2.5 mg Eucalyptus/Menthol/Phenol/Sorbitol (Cepastat Lozenge -) 1 each MM Q4H PRN PRN Reason: SORE THROAT Furosemide (Lasix -) 40 mg PO BID@0600,1400 [facility] Gabapentin (Neurontin -) 300 mg PO Q8H PRN PRN Reason: PAIN Last Admin: 02/14/18 11:18 Dose: 300 mg Guaifenesin (Diabetic Tussin Dm -) 10 ml PO Q4H PRN PRN Reason: COUGH Hydralazine HCl (Apresoline -) 25 mg PO BID [facility] Last Admin: 02/14/18 09:37 Dose: 25 mg Metronidazole (Flagyl 500mg Premixed Ivpb -) 500 mg in 100 mls @ 100 mls/hr IVPB Q8H-IV [facility] Last Admin: 02/14/18 09:37 Dose: 100 mls/hr Potassium Chloride/Sodium Chloride (1/2ns+20meq Kcl) 20 meq in 1,000 mls @ 33 mls/hr IV ASDIR [facility] Insulin Aspart (Novolog Vial Sliding Scale -) 1 vial SQ ACHS [facility]; Protocol Last Admin: 02/14/18 11:26 Dose: 4 units Insulin Aspart (Novolog Mix 70/30 Vial) 15 units SQ BIDAC [facility] Last Admin: 02/14/18 06:40 Dose: 15 units Insulin Detemir (Levemir Vial) 40 units SQ BID@0700,2200 [facility] Last Admin: 02/14/18 06:40 Dose: 40 units Lactobacillus Acidophilus (Bacid -) 1 tab PO DAILY [facility] Last Admin: 02/14/18 09:38 Dose: 1 tab Levetiracetam (Keppra Injection -) 1,000 mg IVPB BID [facility] Last Admin: 02/14/18 09:37 Dose: 1,000 mg Morphine Sulfate (Morphine Sulfate) 2 mg IM Q4H PRN PRN Reason: PAIN LEVEL 6-10 Last Admin: 02/14/18 11:20 Dose: 2 mg Nicotine (Nicoderm Patch -) 21 mg TD DAILY [facility] Last Admin: 02/14/18 09:37 Dose: 21 mg Ondansetron HCl (Zofran Injection) 4 mg IVPUSH Q6H PRN PRN Reason: NAUSEA Pantoprazole Sodium (Protonix Iv) 40 mg IVPUSH BID [facility] Last Admin: 02/14/18 09:38 Dose: 40 mg Phenazopyridine HCl (Pyridium -) 100 mg PO Q8H PRN PRN Reason: dysuria Potassium Chloride (K-Dur -) 20 meq PO DAILY [facility] Last Admin: 02/14/18 11:18 Dose: 20 meq Prednisone (Deltasone -) 20 mg PO DAILY [facility] Last Admin: 02/14/18 09:37 Dose: 20 mg Senna (Senna -) 2 tab PO HS PRN PRN Reason: CONSTIPATION Vancomycin HCl (Vancomycin Oral Solution) 500 mg PO Q6HPO [facility] Last Admin: 02/14/18 11:19 Dose: 500 mg - Objective Vital Signs: Vital Signs Temperature 100 F H 02/14/18 09:23 Pulse Rate 86 02/14/18 09:23 Respiratory Rate 22 H 02/14/18 09:23 Blood Pressure 177/86 H 02/14/18 09:23 O2 Sat by Pulse Oximetry (%) 93 L 02/13/18 20:29 Constitutional: Yes: No Distress Cardiovascular: Yes: Regular Rate and Rhythm, S1, S2 Respiratory: Yes: CTA Bilaterally Gastrointestinal: Yes: Normal Bowel Sounds, Soft, Abdomen, Obese. No: Tenderness Edema: Yes Labs: CBC, BMP 02/14/18 05:50 02/14/18 05:50 INR, PTT INR 0.87 (0.83-1.09) 02/03/18 17:25 Assessment/Plan C diff colitis Markedly elevated WBC secondary to C diff S/P period of unresponsiveness COPD exacerbation UTI Continue po vancomycin /flagyl IV Contact precautions
[2018-02-14 14:48] LABS: ANISOCYTOSIS 0; MACROCYTOSIS 0; PLATELET ESTIMATE NORMAL
--- NOTE | 2018-02-14 15:40 | PN ---
Progress Note, Physician Chief Complaint: Telem w Rapid AF Having occ palpiations. History of Present Illness: 57 year old woman with a PMHx of HTN, NIDDM, hyperlipidemia, CAD s/p stent in the past, diastolic CHF, COPD admitted with difficulty breathing and cough. Being treated for COPD exacerbation. No CHF. Echo normal EF. had episode of AF with RVR 02/12/18. Given IV metoprolol, IV dilt, then her PO dilt. converted back to NSR. Echocardiogram 02/07/2018: Normal LV size, wall motion and systolic function, LVEF = 60-65%. Normal RV. Mild LA dilatation. Mild MR. Mild to moderate TR. started on Eliquis - Current Medication List Current Medications: Active Medications Acetylcysteine (Mucomyst 20 Oral / Inh Use Only*) 400 mg NEB RBID [facility] Last Admin: 02/14/18 07:57 Dose: Not Given Albuterol Sulfate (Ventolin 0.083% Nebulizer Soln -) 1 amp NEB RQ4H [facility] Last Admin: 02/14/18 11:02 Dose: Not Given Apixaban (Eliquis -) 5 mg PO BID [facility] Last Admin: 02/14/18 09:38 Dose: 5 mg Aspirin (Ecotrin -) 81 mg PO DAILY [facility] Last Admin: 02/14/18 09:38 Dose: 81 mg Atorvastatin Calcium (Lipitor -) 20 mg PO HS [facility] Budesonide/Formoterol Fumarate (Symbicort 160/4.5mcg -) 2 puff IH BID [facility] Last Admin: 02/14/18 09:37 Dose: 2 puff Clonidine (Catapres -) 0.1 mg PO BID [facility] Last Admin: 02/14/18 09:38 Dose: 0.1 mg Diltiazem HCl (Cardizem Cd -) 180 mg PO DAILY [facility] Last Admin: 02/14/18 09:38 Dose: 180 mg Docusate Sodium (Colace -) 300 mg PO HS PRN PRN Reason: CONSTIPATION Duloxetine HCl (Cymbalta -) 60 mg PO DAILY [facility] Last Admin: 02/14/18 09:38 Dose: 60 mg Enalaprilat (Vasotec Injection -) 2.5 mg IVPB Q6H-IV [facility] Last Admin: 02/14/18 14:17 Dose: 2.5 mg Eucalyptus/Menthol/Phenol/Sorbitol (Cepastat Lozenge -) 1 each MM Q4H PRN PRN Reason: SORE THROAT Furosemide (Lasix -) 40 mg PO BID@0600,1400 [facility] Last Admin: 02/14/18 14:17 Dose: 40 mg Gabapentin (Neurontin -) 300 mg PO Q8H PRN PRN Reason: PAIN Last Admin: 02/14/18 11:18 Dose: 300 mg Guaifenesin (Diabetic Tussin Dm -) 10 ml PO Q4H PRN PRN Reason: COUGH Hydralazine HCl (Apresoline -) 25 mg PO BID [facility] Last Admin: 02/14/18 09:37 Dose: 25 mg Metronidazole (Flagyl 500mg Premixed Ivpb -) 500 mg in 100 mls @ 100 mls/hr IVPB Q8H-IV [facility] Last Admin: 02/14/18 09:37 Dose: 100 mls/hr Potassium Chloride/Sodium Chloride (1/2ns+20meq Kcl) 20 meq in 1,000 mls @ 33 mls/hr IV ASDIR [facility] Last Admin: 02/14/18 14:27 Dose: 33 mls/hr Insulin Aspart (Novolog Vial Sliding Scale -) 1 vial SQ ACHS [facility]; Protocol Last Admin: 02/14/18 11:26 Dose: 4 units Insulin Aspart (Novolog Mix 70/30 Vial) 15 units SQ BIDAC [facility] Last Admin: 02/14/18 06:40 Dose: 15 units Insulin Detemir (Levemir Vial) 40 units SQ BID@0700,2200 [facility] Last Admin: 02/14/18 06:40 Dose: 40 units Lactobacillus Acidophilus (Bacid -) 1 tab PO DAILY [facility] Last Admin: 02/14/18 09:38 Dose: 1 tab Levetiracetam (Keppra Injection -) 1,000 mg IVPB BID [facility] Last Admin: 02/14/18 09:37 Dose: 1,000 mg Morphine Sulfate (Morphine Sulfate) 2 mg IM Q4H PRN PRN Reason: PAIN LEVEL 6-10 Last Admin: 02/14/18 11:20 Dose: 2 mg Nicotine (Nicoderm Patch -) 21 mg TD DAILY [facility] Last Admin: 02/14/18 09:37 Dose: 21 mg Ondansetron HCl (Zofran Injection) 4 mg IVPUSH Q6H PRN PRN Reason: NAUSEA Pantoprazole Sodium (Protonix Iv) 40 mg IVPUSH BID [facility] Last Admin: 02/14/18 09:38 Dose: 40 mg Phenazopyridine HCl (Pyridium -) 100 mg PO Q8H PRN PRN Reason: dysuria Potassium Chloride (K-Dur -) 20 meq PO DAILY [facility] Last Admin: 02/14/18 11:18 Dose: 20 meq Prednisone (Deltasone -) 20 mg PO DAILY [facility] Last Admin: 02/14/18 09:37 Dose: 20 mg Senna (Senna -) 2 tab PO HS PRN PRN Reason: CONSTIPATION Vancomycin HCl (Vancomycin Oral Solution) 500 mg PO Q6HPO [facility] Last Admin: 02/14/18 11:19 Dose: 500 mg - Objective Vital Signs: Vital Signs Temperature 98.1 F 02/14/18 14:00 Pulse Rate 76 02/14/18 14:00 Respiratory Rate 15 02/14/18 14:00 Blood Pressure 134/79 02/14/18 14:00 O2 Sat by Pulse Oximetry (%) 93 L 02/14/18 09:00 Constitutional: Yes: Well Nourished, No Distress, Calm Eyes: Yes: Conjunctiva Clear, EOM Intact HENT: Yes: Atraumatic, Normocephalic Neck: Yes: Supple, Trachea Midline Cardiovascular: Yes: Regular Rate and Rhythm. No: JVD Respiratory: Yes: Regular, CTA Bilaterally Edema: No Labs: CBC, BMP 02/14/18 05:50 02/14/18 05:50 INR, PTT INR 0.87 (0.83-1.09) 02/03/18 17:25 Problem List - Problems (1) Afib Code(s): I48.91 - UNSPECIFIED ATRIAL FIBRILLATION Assessment/Plan 57 year old woman with a PMHx of HTN, NIDDM, hyperlipidemia, CAD s/p stent in the past, diastolic CHF, COPD admitted with difficulty breathing and cough. Being treated for COPD exacerbation. No CHF. Echo normal EF. had episode of AF with RVR 02/12/18.. Given IV metoprolol, IV dilt, then her PO dilt. converted back to NSR. Echocardiogram 02/07/2018: Normal LV size, wall motion and systolic function, LVEF = 60-65%. Normal RV. Mild LA dilatation. Mild MR. Mild to moderate TR. 1) Chronic diastolic CHF with SOB and cough. Her symptoms are likely related to copd exacerbation. Being treated as per pulmonary. Lasix PO 40 mg BID. 2) CAD s/p stent No recurrent chest pain. Add statin. 3) HTN: better controlled. 4) PAF: CHADS2-VASC is 3 (sex, htn, dm) Eliquis 5 mg bid. Increase dilt 240mgqd TFT's would not give digoxin while hypokalemic. This can cause arrhythmias.
[2018-02-14 16:47] VITALS: BMI 39.6
--- NOTE | 2018-02-14 21:17 | PN ---
GI Progress Note Subjective: GI NOte: Yohana is c/o abdominal pain and inability to "keep anything down" but nursing informs me that she did manage a grilled cheese sandwich and bag of potato chips earlier - Objective Vital Signs: Vital Signs Temperature 98.7 F 02/14/18 16:35 Pulse Rate 76 02/14/18 16:35 Respiratory Rate 15 02/14/18 17:00 Blood Pressure 142/79 02/14/18 16:35 O2 Sat by Pulse Oximetry (%) 93 L 02/14/18 17:00 Laboratory Tests 02/11/18 02/12/18 02/14/18 06:50 06:10 05:50 WBC 44.1 H* 26.0 H Hgb 14.9 Potassium C-Reactive Protein 12.8 H Albumin 02/14/18 02/14/18 05:50 05:50 WBC Hgb Potassium 3.6 C-Reactive Protein 4.7 H Albumin 2.0 L Constitutional: Anxious ...Auscultate: Yes: Normoactive Bowel Sounds ...Palpate: Yes: Soft, Other (no localizing tenderness) Labs: CBC, BMP 02/14/18 05:50 02/14/18 05:50 INR, PTT INR 0.87 (0.83-1.09) 02/03/18 17:25 Problem List - Problems (1) Abdominal pain Assessment/Plan: Resolving C diff colitis. Continue Vancomycin and Flagyl. Code(s): R10.9 - UNSPECIFIED ABDOMINAL PAIN Qualifiers: Abdominal location: generalized Qualified Code(s): R10.84 - Generalized abdominal pain (2) Colitis Code(s): K52.9 - NONINFECTIVE GASTROENTERITIS AND COLITIS, UNSPECIFIED (3) Heroin abuse Code(s): F11.10 - OPIOID ABUSE, UNCOMPLICATED (4) Diabetes mellitus with hyperosmolarity Code(s): E11.00 - TYPE 2 DIAB W HYPROSM W/O NONKET HYPRGLY-HYPROS COMA ([facility]) (5) ASHD (arteriosclerotic heart disease) Code(s): I25.10 - ATHSCL HEART DISEASE OF [place] CORONARY ARTERY W/O ANG PCTRS (6) COPD exacerbation Code(s): J44.1 - CHRONIC OBSTRUCTIVE PULMONARY DISEASE W (ACUTE) EXACERBATION (7) Cocaine abuse Code(s): F14.10 - COCAINE ABUSE, UNCOMPLICATED (8) Diarrhea Code(s): R19.7 - DIARRHEA, UNSPECIFIED Qualifiers: Diarrhea type: infectious Qualified Code(s): A09 - Infectious gastroenteritis and colitis, unspecified (9) Leukocytosis Code(s): D72.829 - ELEVATED WHITE BLOOD CELL COUNT, UNSPECIFIED (10) Bipolar II disorder Code(s): F31.81 - BIPOLAR II DISORDER (11) Hepatitis C Code(s): B19.20 - UNSPECIFIED VIRAL HEPATITIS C WITHOUT HEPATIC COMA Qualifiers: Viral hepatitis chronicity: unspecified Hepatic coma status: without hepatic coma Qualified Code(s): B19.20 - Unspecified viral hepatitis C without hepatic coma (12) C. difficile colitis Code(s): A04.72 - ENTEROCOLITIS D/T CLOSTRIDIUM DIFFICILE, NOT SPCF RECUR
[2018-02-14] MEDS: ATORVASTATIN CA 20 MG TABLET (FP) PO SCH (21:22)
[2018-02-15] MEDS ORDERED: PT OWN MED DRAWER 7, Y5N ONE ×3 (02:31→22:46)
[2018-02-15] MEDS: ENALAPRILAT DIHYDRATE 2.5 MG/2 ML VIAL IVPB SCH ×2 (02:41→10:56)
[2018-02-15] MEDS: MORPHINE SULFATE 2 MG/ML VIAL IM PRN ×2 (05:33→12:30)
[2018-02-15] MEDS: GABAPENTIN 300 MG CAPSULE (FP) PO PRN ×2 (05:33→22:30)
[2018-02-15] MEDS: VANCOMYCIN 250 MG/5 ML ORAL SOLUTION PO SCH ×3 (05:33→17:00)
[2018-02-15] MEDS: FUROSEMIDE 40 MG TABLET (FP) PO SCH ×2 (05:33→12:59)
[2018-02-15] MEDS: INSULIN (NOVOLOG MIX 70/30) 100 UNITS/ML MDV SQ SCH ×2 (06:14→16:58)
[2018-02-15] MEDS: INSULIN (LEVEMIR) 100 UNITS/ML UNITS SQ SCH ×2 (06:14→22:33)
[2018-02-15] MEDS: INSULIN SLIDING SCALE (NOVOLOG) 1 VIAL SQ SCH ×4 (06:15→22:34)
[2018-02-15 06:57] LABS: ALBUMIN 2.2 g/dl (3.4-5.0); ALK PHOS 78 U/L (45-117); ANION GAP 5 MMOL/L (8-16); BILIRUBIN,TOTAL 0.5 mg/dL (0.2-1); BLOOD UREA NITROGEN 18 mg/dL (7-18); CALCIUM 8.2 mg/dL (8.5-10.1); CHLORIDE 94 mmol/L (98-107); CO2 38 mmol/L (21-32); CREATININE 0.4 mg/dL (0.55-1.3); GLUCOSE,RANDOM 123 mg/dL (74-106); POTASSIUM 3.5 mmol/L (3.5-5.1); SGOT/AST 28 U/L (15-37); SGPT/ALT 29 U/L (13-61); SODIUM 137 mmol/L (136-145); TOT PROT 5.6 g/dl (6.4-8.2)
[2018-02-15 06:58] LABS: BASO % 0.1 % (0-2.0); EOS % 0.8 % (0-4.5); HEMATOCRIT 44.5 % (32.4-45.2); HEMOGLOBIN 15.3 GM/dL (10.7-15.3); LYMPH % 19.9 % (8-40); MCH 31.2 pg (25.7-33.7); MCHC 34.4 g/dl (32.0-36.0); MEAN CELL VOLUME 90.6 fl (80-96); MEAN PLT VOLUME 8.9 fl (7.5-11.1); MONO % 11.2 % (3.8-10.2); PLATELET COUNT 298 K/MM3 (134-434); RBC 4.91 M/mm3 (3.60-5.2); RDW 14.1 % (11.6-15.6); WHITE BLOOD COUNT 19.4 K/mm3 (4.0-10.0)
[2018-02-15] MEDS: ALBUTEROL SO4 0.083% IH SOL 2.5 MG/3 ML VIAL.NEB. NEB SCH ×4 (07:35→20:22)
[2018-02-15] MEDS: ACETYLCYSTEINE 20% 200MG/ML 4 ML VIAL *FOR ORAL / INH USE ONLY NEB SCH ×2 (07:35→20:22)
[2018-02-15] MEDS: ASPIRIN COATED 81 MG TABLET.EC PO SCH (09:21)
[2018-02-15] MEDS: hydrALAZINE HCL 25 MG TABLET (FP) PO SCH ×2 (09:21→22:31)
[2018-02-15] MEDS: POTASSIUM CHLORIDE TABS 20 MEQ TABLET.ER (FP) PO SCH (09:21)
[2018-02-15] MEDS: BUDESONIDE/FORMETEROL FUMARATE 160/4.5 mcg INHALER IH SCH ×2 (09:21→22:33)
[2018-02-15] MEDS: NICOTINE 21 MG/24 HOURS TOPICAL PATCH TD SCH (09:21)
[2018-02-15] MEDS: cloNIDine HCL 0.1 MG TABLET PO SCH ×2 (09:21→22:30)
[2018-02-15] MEDS: predniSONE 20 MG TABLET (UD) PO SCH (09:21)
[2018-02-15] MEDS: DULoxetine HCL 30 MG CAPSULE.DR (FP) PO SCH (09:21)
[2018-02-15] MEDS: APIXABAN 5 MG TABLET PO SCH ×2 (09:21→22:30)
[2018-02-15] MEDS: LACTOBACILLUS ACIDOPHILUS 1 TABLET PO SCH (09:21)
--- NOTE | 2018-02-15 09:52 | PN ---
Progress Note, Physician History of Present Illness: seen and examined today in nad. no overnight events. no new complaints. - Current Medication List Current Medications: Active Medications Acetylcysteine (Mucomyst 20 Oral / Inh Use Only*) 400 mg NEB RBID [facility] Last Admin: 02/14/18 19:41 Dose: Not Given Albuterol Sulfate (Ventolin 0.083% Nebulizer Soln -) 1 amp NEB RQ4H [facility] Last Admin: 02/14/18 19:41 Dose: Not Given Apixaban (Eliquis -) 5 mg PO BID [facility] Last Admin: 02/15/18 09:21 Dose: 5 mg Aspirin (Ecotrin -) 81 mg PO DAILY [facility] Last Admin: 02/15/18 09:21 Dose: 81 mg Atorvastatin Calcium (Lipitor -) 20 mg PO HS [facility] Last Admin: 02/14/18 21:22 Dose: 20 mg Budesonide/Formoterol Fumarate (Symbicort 160/4.5mcg -) 2 puff IH BID [facility] Last Admin: 02/15/18 09:21 Dose: 2 puff Clonidine (Catapres -) 0.1 mg PO BID [facility] Last Admin: 02/15/18 09:21 Dose: 0.1 mg Diltiazem HCl (Cardizem Cd -) 240 mg PO DAILY [facility] Last Admin: 02/15/18 09:21 Dose: 240 mg Docusate Sodium (Colace -) 300 mg PO HS PRN PRN Reason: CONSTIPATION Duloxetine HCl (Cymbalta -) 60 mg PO DAILY [facility] Last Admin: 02/15/18 09:21 Dose: 60 mg Enalaprilat (Vasotec Injection -) 2.5 mg IVPB Q6H-IV [facility] Last Admin: 02/15/18 02:41 Dose: 2.5 mg Eucalyptus/Menthol/Phenol/Sorbitol (Cepastat Lozenge -) 1 each MM Q4H PRN PRN Reason: SORE THROAT Furosemide (Lasix -) 40 mg PO BID@0600,1400 [facility] Last Admin: 02/15/18 05:33 Dose: 40 mg Gabapentin (Neurontin -) 300 mg PO Q8H PRN PRN Reason: PAIN Last Admin: 02/15/18 05:33 Dose: 300 mg Guaifenesin (Diabetic Tussin Dm -) 10 ml PO Q4H PRN PRN Reason: COUGH Hydralazine HCl (Apresoline -) 25 mg PO BID [facility] Last Admin: 02/15/18 09:21 Dose: 25 mg Metronidazole (Flagyl 500mg Premixed Ivpb -) 500 mg in 100 mls @ 100 mls/hr IVPB Q8H-IV [facility] Last Admin: 02/15/18 02:41 Dose: 100 mls/hr Potassium Chloride/Sodium Chloride (1/2ns+20meq Kcl) 20 meq in 1,000 mls @ 33 mls/hr IV ASDIR [facility] Last Admin: 02/14/18 14:27 Dose: 33 mls/hr Insulin Aspart (Novolog Vial Sliding Scale -) 1 vial SQ ACHS [facility]; Protocol Last Admin: 02/15/18 06:15 Dose: Not Given Insulin Aspart (Novolog Mix 70/30 Vial) 15 units SQ BIDAC [facility] Last Admin: 02/15/18 06:14 Dose: Not Given Insulin Detemir (Levemir Vial) 40 units SQ BID@0700,2200 [facility] Last Admin: 02/15/18 06:14 Dose: Not Given Lactobacillus Acidophilus (Bacid -) 1 tab PO DAILY [facility] Last Admin: 02/15/18 09:21 Dose: 1 tab Levetiracetam (Keppra Injection -) 1,000 mg IVPB BID [facility] Last Admin: 02/14/18 21:22 Dose: 1,000 mg Morphine Sulfate (Morphine Sulfate) 2 mg IM Q4H PRN PRN Reason: PAIN LEVEL 6-10 Last Admin: 02/15/18 05:33 Dose: 2 mg Nicotine (Nicoderm Patch -) 21 mg TD DAILY [facility] Last Admin: 02/15/18 09:21 Dose: 21 mg Ondansetron HCl (Zofran Injection) 4 mg IVPUSH Q6H PRN PRN Reason: NAUSEA Pantoprazole Sodium (Protonix Iv) 40 mg IVPUSH BID [facility] Last Admin: 02/14/18 21:23 Dose: 40 mg Phenazopyridine HCl (Pyridium -) 100 mg PO Q8H PRN PRN Reason: dysuria Potassium Chloride (K-Dur -) 20 meq PO DAILY [facility] Last Admin: 02/15/18 09:21 Dose: 20 meq Prednisone (Deltasone -) 20 mg PO DAILY [facility] Last Admin: 02/15/18 09:21 Dose: 20 mg Senna (Senna -) 2 tab PO HS PRN PRN Reason: CONSTIPATION Vancomycin HCl (Vancomycin Oral Solution) 500 mg PO Q6HPO [facility] Last Admin: 02/15/18 05:33 Dose: 500 mg - Objective Vital Signs: Vital Signs Temperature 98.9 F 02/15/18 06:00 Pulse Rate 94 H 02/15/18 06:00 Respiratory Rate 20 02/15/18 06:00 Blood Pressure 154/94 02/15/18 06:00 O2 Sat by Pulse Oximetry (%) 95 02/14/18 22:00 Constitutional: Yes: No Distress, Calm, Obese Eyes: Yes: Conjunctiva Clear, EOM Intact HENT: Yes: Atraumatic, Normocephalic Neck: Yes: Supple, Trachea Midline Cardiovascular: Yes: Regular Rate and Rhythm, S1, S2. No: Bradycardia, Tachycardia, Bruit, JVD, Gallop, Murmur, Rub, S3, S4, Varicosities Respiratory: Yes: Regular, Diminished. No: Rales, Rhonchi, SOB, Wheezes Gastrointestinal: Yes: Normal Bowel Sounds, Soft. No: Distention, Tenderness Extremities: Yes: WNL Edema: No Peripheral Pulses WNL: Yes Peripheral Pulses: Left Doralis Pedis: 2+, Right Dorsalis Pedis: 2+ Neurological: Yes: Alert, Oriented Psychiatric: Yes: Alert, Oriented Labs: CBC, BMP 02/15/18 06:20 02/15/18 06:20 INR, PTT INR 0.87 (0.83-1.09) 02/03/18 17:25 - ....Imaging Chest X-ray: Report Reviewed, Image Reviewed EKG: Report Reviewed, Image Reviewed Other: Report Reviewed, Image Reviewed (tele-NSR, brief PSVT, PAfib) Assessment/Plan 57 year old woman with a PMHx of HTN, NIDDM, hyperlipidemia, CAD s/p stent in the past, diastolic CHF, COPD admitted with difficulty breathing and cough. Being treated for COPD exacerbation. No CHF. Echo normal EF. had episode of AF with RVR 02/12/18.. Given IV metoprolol, IV dilt, then her PO dilt. converted back to NSR. Echocardiogram 02/07/2018: Normal LV size, wall motion and systolic function, LVEF = 60-65%. Normal RV. Mild LA dilatation. Mild MR. Mild to moderate TR. 1) Chronic diastolic CHF with SOB and cough. Her symptoms are likely related to copd exacerbation. Being treated as per pulmonary. -euvolemic currently -cont Lasix PO 40 mg BID. -caution to avoid dehydration in setting of diarrhea 2) CAD s/p stent No recurrent chest pain. cont statin. 3) HTN: better controlled. -cont current meds for now -can change IV enalapril to po STEWART-I/ARB 4) PAF: CHADS2-VASC is 3 (sex, htn, dm) -currently nsr -cont Eliquis 5 mg bid. cont dilt 240mgqd check TFT's
[2018-02-15] MEDS: levETIRAcetam 500 MG/5 ML INJECTION VIAL IVPB SCH (10:53)
[2018-02-15] MEDS: PANTOPRAZOLE SODIUM 40 MG VIAL IVPUSH SCH (10:55)
--- NOTE | 2018-02-15 12:30 | PN ---
Progress Note, Physician History of Present Illness: Awake, alert Supine in bed Offers no complaints Staff reports loose BM Afebrile WBC improved 19K - Current Medication List Current Medications: Active Medications Acetylcysteine (Mucomyst 20 Oral / Inh Use Only*) 400 mg NEB RBID [facility] Last Admin: 02/15/18 07:35 Dose: Not Given Albuterol Sulfate (Ventolin 0.083% Nebulizer Soln -) 1 amp NEB RQ4H [facility] Last Admin: 02/15/18 07:35 Dose: 1 amp Apixaban (Eliquis -) 5 mg PO BID [facility] Last Admin: 02/15/18 09:21 Dose: 5 mg Aspirin (Ecotrin -) 81 mg PO DAILY [facility] Last Admin: 02/15/18 09:21 Dose: 81 mg Atorvastatin Calcium (Lipitor -) 20 mg PO HS [facility] Last Admin: 02/14/18 21:22 Dose: 20 mg Budesonide/Formoterol Fumarate (Symbicort 160/4.5mcg -) 2 puff IH BID [facility] Last Admin: 02/15/18 09:21 Dose: 2 puff Clonidine (Catapres -) 0.1 mg PO BID [facility] Last Admin: 02/15/18 09:21 Dose: 0.1 mg Diltiazem HCl (Cardizem Cd -) 240 mg PO DAILY [facility] Last Admin: 02/15/18 09:21 Dose: 240 mg Docusate Sodium (Colace -) 300 mg PO HS PRN PRN Reason: CONSTIPATION Duloxetine HCl (Cymbalta -) 60 mg PO DAILY [facility] Last Admin: 02/15/18 09:21 Dose: 60 mg Enalaprilat (Vasotec Injection -) 2.5 mg IVPB Q6H-IV [facility] Last Admin: 02/15/18 10:56 Dose: 2.5 mg Eucalyptus/Menthol/Phenol/Sorbitol (Cepastat Lozenge -) 1 each MM Q4H PRN PRN Reason: SORE THROAT Furosemide (Lasix -) 40 mg PO BID@0600,1400 [facility] Last Admin: 02/15/18 05:33 Dose: 40 mg Gabapentin (Neurontin -) 300 mg PO Q8H PRN PRN Reason: PAIN Last Admin: 02/15/18 05:33 Dose: 300 mg Guaifenesin (Diabetic Tussin Dm -) 10 ml PO Q4H PRN PRN Reason: COUGH Hydralazine HCl (Apresoline -) 25 mg PO BID [facility] Last Admin: 02/15/18 09:21 Dose: 25 mg Metronidazole (Flagyl 500mg Premixed Ivpb -) 500 mg in 100 mls @ 100 mls/hr IVPB Q8H-IV [facility] Last Admin: 02/15/18 10:54 Dose: 100 mls/hr Potassium Chloride/Sodium Chloride (1/2ns+20meq Kcl) 20 meq in 1,000 mls @ 33 mls/hr IV ASDIR [facility] Last Admin: 02/14/18 14:27 Dose: 33 mls/hr Insulin Aspart (Novolog Vial Sliding Scale -) 1 vial SQ ACHS [facility]; Protocol Last Admin: 02/15/18 06:15 Dose: Not Given Insulin Aspart (Novolog Mix 70/30 Vial) 15 units SQ BIDAC [facility] Last Admin: 02/15/18 06:14 Dose: Not Given Insulin Detemir (Levemir Vial) 40 units SQ BID@0700,2200 [facility] Last Admin: 02/15/18 06:14 Dose: Not Given Lactobacillus Acidophilus (Bacid -) 1 tab PO DAILY [facility] Last Admin: 02/15/18 09:21 Dose: 1 tab Levetiracetam (Keppra Injection -) 1,000 mg IVPB BID [facility] Last Admin: 02/15/18 10:53 Dose: 1,000 mg Morphine Sulfate (Morphine Sulfate) 2 mg IM Q4H PRN PRN Reason: PAIN LEVEL 6-10 Last Admin: 02/15/18 05:33 Dose: 2 mg Nicotine (Nicoderm Patch -) 21 mg TD DAILY [facility] Last Admin: 02/15/18 09:21 Dose: 21 mg Ondansetron HCl (Zofran Injection) 4 mg IVPUSH Q6H PRN PRN Reason: NAUSEA Pantoprazole Sodium (Protonix Iv) 40 mg IVPUSH BID [facility] Last Admin: 02/15/18 10:55 Dose: 40 mg Phenazopyridine HCl (Pyridium -) 100 mg PO Q8H PRN PRN Reason: dysuria Potassium Chloride (K-Dur -) 20 meq PO DAILY [facility] Last Admin: 02/15/18 09:21 Dose: 20 meq Prednisone (Deltasone -) 20 mg PO DAILY [facility] Last Admin: 02/15/18 09:21 Dose: 20 mg Senna (Senna -) 2 tab PO HS PRN PRN Reason: CONSTIPATION Vancomycin HCl (Vancomycin Oral Solution) 500 mg PO Q6HPO [facility] Last Admin: 02/15/18 11:06 Dose: 500 mg - Objective Vital Signs: Vital Signs Temperature 98.8 F 02/15/18 10:00 Pulse Rate 92 H 02/15/18 10:00 Respiratory Rate 18 02/15/18 10:00 Blood Pressure 143/83 02/15/18 10:00 O2 Sat by Pulse Oximetry (%) 93 L 02/15/18 09:00 Constitutional: Yes: No Distress Eyes: Yes: Conjunctiva Clear Cardiovascular: Yes: Regular Rate and Rhythm, S1, S2 Respiratory: Yes: Diminished Gastrointestinal: Yes: Normal Bowel Sounds, Soft, Abdomen, Obese. No: Tenderness Labs: CBC, BMP 02/15/18 06:20 02/15/18 06:20 INR, PTT INR 0.87 (0.83-1.09) 02/03/18 17:25 Assessment/Plan C difficile colitis Markedly elevated WBC secondary to C diff S/P period of unresponsiveness COPD exacerbation UTI Continue po vancomycin /flagyl IV No treatment for yeast in stool Contact precautions
--- NOTE | 2018-02-15 13:23 | PN ---
Progress Note, Physician History of Present Illness: pulmonary alert,feeling better,-resp distress - Current Medication List Current Medications: Active Medications Acetylcysteine (Mucomyst 20 Oral / Inh Use Only*) 400 mg NEB RBID COUNTS INCLUDE 234 BEDS AT THE [facility] Last Admin: 02/15/18 07:35 Dose: Not Given Albuterol Sulfate (Ventolin 0.083% Nebulizer Soln -) 1 amp NEB RQ4H COUNTS INCLUDE 234 BEDS AT THE [facility] Last Admin: 02/15/18 07:35 Dose: 1 amp Apixaban (Eliquis -) 5 mg PO BID COUNTS INCLUDE 234 BEDS AT THE [facility] Last Admin: 02/15/18 09:21 Dose: 5 mg Aspirin (Ecotrin -) 81 mg PO DAILY COUNTS INCLUDE 234 BEDS AT THE [facility] Last Admin: 02/15/18 09:21 Dose: 81 mg Atorvastatin Calcium (Lipitor -) 20 mg PO HS COUNTS INCLUDE 234 BEDS AT THE [facility] Last Admin: 02/14/18 21:22 Dose: 20 mg Budesonide/Formoterol Fumarate (Symbicort 160/4.5mcg -) 2 puff IH BID COUNTS INCLUDE 234 BEDS AT THE [facility] Last Admin: 02/15/18 09:21 Dose: 2 puff Clonidine (Catapres -) 0.1 mg PO BID COUNTS INCLUDE 234 BEDS AT THE [facility] Last Admin: 02/15/18 09:21 Dose: 0.1 mg Diltiazem HCl (Cardizem Cd -) 240 mg PO DAILY COUNTS INCLUDE 234 BEDS AT THE [facility] Last Admin: 02/15/18 09:21 Dose: 240 mg Docusate Sodium (Colace -) 300 mg PO HS PRN PRN Reason: CONSTIPATION Duloxetine HCl (Cymbalta -) 60 mg PO DAILY COUNTS INCLUDE 234 BEDS AT THE [facility] Last Admin: 02/15/18 09:21 Dose: 60 mg Enalaprilat (Vasotec Injection -) 2.5 mg IVPB Q6H-IV COUNTS INCLUDE 234 BEDS AT THE [facility] Last Admin: 02/15/18 10:56 Dose: 2.5 mg Eucalyptus/Menthol/Phenol/Sorbitol (Cepastat Lozenge -) 1 each MM Q4H PRN PRN Reason: SORE THROAT Furosemide (Lasix -) 40 mg PO BID@0600,1400 COUNTS INCLUDE 234 BEDS AT THE [facility] Last Admin: 02/15/18 12:59 Dose: 40 mg Gabapentin (Neurontin -) 300 mg PO Q8H PRN PRN Reason: PAIN Last Admin: 02/15/18 05:33 Dose: 300 mg Guaifenesin (Diabetic Tussin Dm -) 10 ml PO Q4H PRN PRN Reason: COUGH Hydralazine HCl (Apresoline -) 25 mg PO BID COUNTS INCLUDE 234 BEDS AT THE [facility] Last Admin: 02/15/18 09:21 Dose: 25 mg Metronidazole (Flagyl 500mg Premixed Ivpb -) 500 mg in 100 mls @ 100 mls/hr IVPB Q8H-IV [facility] Last Admin: 02/15/18 10:54 Dose: 100 mls/hr Potassium Chloride/Sodium Chloride (1/2ns+20meq Kcl) 20 meq in 1,000 mls @ 33 mls/hr IV ASDIR COUNTS INCLUDE 234 BEDS AT THE [facility] Last Admin: 02/14/18 14:27 Dose: 33 mls/hr Insulin Aspart (Novolog Vial Sliding Scale -) 1 vial SQ ACHS COUNTS INCLUDE 234 BEDS AT THE [facility]; Protocol Last Admin: 02/15/18 12:41 Dose: 8 units Insulin Aspart (Novolog Mix 70/30 Vial) 15 units SQ BIDAC COUNTS INCLUDE 234 BEDS AT THE [facility] Last Admin: 02/15/18 06:14 Dose: Not Given Insulin Detemir (Levemir Vial) 40 units SQ BID@0700,2200 COUNTS INCLUDE 234 BEDS AT THE [facility] Last Admin: 02/15/18 06:14 Dose: Not Given Lactobacillus Acidophilus (Bacid -) 1 tab PO DAILY COUNTS INCLUDE 234 BEDS AT THE [facility] Last Admin: 02/15/18 09:21 Dose: 1 tab Levetiracetam (Keppra Injection -) 1,000 mg IVPB BID COUNTS INCLUDE 234 BEDS AT THE [facility] Last Admin: 02/15/18 10:53 Dose: 1,000 mg Morphine Sulfate (Morphine Sulfate) 2 mg IM Q4H PRN PRN Reason: PAIN LEVEL 6-10 Last Admin: 02/15/18 12:30 Dose: 2 mg Nicotine (Nicoderm Patch -) 21 mg TD DAILY COUNTS INCLUDE 234 BEDS AT THE [facility] Last Admin: 02/15/18 09:21 Dose: 21 mg Ondansetron HCl (Zofran Injection) 4 mg IVPUSH Q6H PRN PRN Reason: NAUSEA Pantoprazole Sodium (Protonix Iv) 40 mg IVPUSH BID COUNTS INCLUDE 234 BEDS AT THE [facility] Last Admin: 02/15/18 10:55 Dose: 40 mg Phenazopyridine HCl (Pyridium -) 100 mg PO Q8H PRN PRN Reason: dysuria Potassium Chloride (K-Dur -) 20 meq PO DAILY COUNTS INCLUDE 234 BEDS AT THE [facility] Last Admin: 02/15/18 09:21 Dose: 20 meq Prednisone (Deltasone -) 20 mg PO DAILY COUNTS INCLUDE 234 BEDS AT THE [facility] Last Admin: 02/15/18 09:21 Dose: 20 mg Senna (Senna -) 2 tab PO HS PRN PRN Reason: CONSTIPATION Vancomycin HCl (Vancomycin Oral Solution) 500 mg PO Q6HPO COUNTS INCLUDE 234 BEDS AT THE [facility] Last Admin: 02/15/18 11:06 Dose: 500 mg - Objective Vital Signs: Vital Signs Temperature 98.8 F 02/15/18 10:00 Pulse Rate 92 H 02/15/18 10:00 Respiratory Rate 18 02/15/18 10:00 Blood Pressure 143/83 02/15/18 10:00 O2 Sat by Pulse Oximetry (%) 93 L 02/15/18 09:00 Constitutional: Yes: Well Nourished, Calm Eyes: Yes: WNL HENT: Yes: WNL Neck: Yes: WNL Cardiovascular: Yes: Regular Rate and Rhythm, S1, S2 Respiratory: Yes: Diminished Gastrointestinal: Yes: Normal Bowel Sounds, Soft Extremities: Yes: WNL Edema: No Labs: CBC, BMP 02/15/18 06:20 02/15/18 06:20 INR, PTT INR 0.87 (0.83-1.09) 02/03/18 17:25 Problem List - Problems (1) ASHD (arteriosclerotic heart disease) Code(s): I25.10 - ATHSCL HEART DISEASE OF [place] CORONARY ARTERY W/O ANG PCTRS (2) COPD exacerbation Code(s): J44.1 - CHRONIC OBSTRUCTIVE PULMONARY DISEASE W (ACUTE) EXACERBATION (3) IBS (irritable bowel syndrome) Code(s): K58.9 - IRRITABLE BOWEL SYNDROME WITHOUT DIARRHEA (4) Tobacco abuse Code(s): Z72.0 - TOBACCO USE (5) Tobacco abuse counseling Code(s): Z71.6 - TOBACCO ABUSE COUNSELING (6) Asthma Code(s): J45.909 - UNSPECIFIED ASTHMA, UNCOMPLICATED Qualifiers: Asthma severity: unspecified severity Asthma persistence: intermittent Asthma complication type: uncomplicated Qualified Code(s): J45.20 - Mild intermittent asthma, uncomplicated (7) Diabetes type 2, controlled Code(s): E11.9 - TYPE 2 DIABETES MELLITUS WITHOUT COMPLICATIONS (8) Hypothyroidism Code(s): E03.9 - HYPOTHYROIDISM, UNSPECIFIED Qualifiers: Hypothyroidism type: acquired Qualified Code(s): E03.9 - Hypothyroidism, unspecified Assessment/Plan IMP COPD EXACERBATION SLOWLY IMPROVING ASHD S/P STENT DM CHF PULMONARY HTN TOBACCO ABUSE LIKELY OSAS C-DIFF PLAN INHALED BRONCHODILATORS O2 VANCO PO DVT PROPHYLAXIS SLEEP SCREEN SMOKING CESSATION COUNSELED DR PERDUE Problem List - Problems (1) ASHD (arteriosclerotic heart disease) Code(s): I25.10 - ATHSCL HEART DISEASE OF [place] CORONARY ARTERY W/O ANG PCTRS (2) COPD exacerbation Code(s): J44.1 - CHRONIC OBSTRUCTIVE PULMONARY DISEASE W (ACUTE) EXACERBATION (3) IBS (irritable bowel syndrome) Code(s): K58.9 - IRRITABLE BOWEL SYNDROME WITHOUT DIARRHEA (4) Tobacco abuse Code(s): Z72.0 - TOBACCO USE (5) Tobacco abuse counseling Code(s): Z71.6 - TOBACCO ABUSE COUNSELING (6) Asthma Code(s): J45.909 - UNSPECIFIED ASTHMA, UNCOMPLICATED Qualifiers: Asthma severity: unspecified severity Asthma persistence: intermittent Asthma complication type: uncomplicated Qualified Code(s): J45.20 - Mild intermittent asthma, uncomplicated (7) Diabetes type 2, controlled Code(s): E11.9 - TYPE 2 DIABETES MELLITUS WITHOUT COMPLICATIONS
--- NOTE | 2018-02-15 13:24 | PN ---
Progress Note (short form) - Note Progress Note: 57 year old female history of CAD, HTN, CHF, HLD, COPD, BIPOLAR Disorder , was admitted for sob and productive cough, fever and exacerbation of COPD While on floor she has given oxycodone and she became unreponsive. There is no tonic clonic activity. Patient has improved back to her baseline and she had ct scan is normal. She has refused ct head Patient has episode when she would twitch in her hand and eye, and she would be screaming , make my pain go away. She keep insisting , if she get pain medicaiton her seizure would go away. There is no post ictal confusio, tongue bite or incontinence. She was loaded with keppra and has not had since loaded with keppra. Patient has not had any seizure, she has refused mri of brain and she is sleepy . Neurological Examination Alert oriented x follow command, eomi, pupils reactive, no face asymemtry moving all extremity sensation is normal ct head is normal mri of brain refused EEG pen ding Assessment- Recurrent episode of twitching and crying at the same time, atypical features , clinically Unlikley to be epileptic seizure. mri of brain she refused, and eeg is pending. - Continue keppra for now , she would not require AED in skilled nursing. -Consider Psych Consult THtiarakaing you so much Tio Cerrato MD
--- NOTE | 2018-02-15 13:53 | PN ---
Progress Note, Physician Chief Complaint: AWAKE ALERT DEPRESSED C/O THAT HER BIDU HURTS AND SHE IS IN PAIN ALL THE TIME FOR MANY YEARS AND NOW HER ABDOMEN HURTS - Current Medication List Current Medications: Active Medications Acetylcysteine (Mucomyst 20 Oral / Inh Use Only*) 400 mg NEB RBID [facility] Last Admin: 02/15/18 07:35 Dose: Not Given Albuterol Sulfate (Ventolin 0.083% Nebulizer Soln -) 1 amp NEB RQ4H [facility] Last Admin: 02/15/18 07:35 Dose: 1 amp Apixaban (Eliquis -) 5 mg PO BID [facility] Last Admin: 02/15/18 09:21 Dose: 5 mg Aspirin (Ecotrin -) 81 mg PO DAILY [facility] Last Admin: 02/15/18 09:21 Dose: 81 mg Atorvastatin Calcium (Lipitor -) 20 mg PO HS [facility] Last Admin: 02/14/18 21:22 Dose: 20 mg Budesonide/Formoterol Fumarate (Symbicort 160/4.5mcg -) 2 puff IH BID [facility] Last Admin: 02/15/18 09:21 Dose: 2 puff Clonidine (Catapres -) 0.1 mg PO BID [facility] Last Admin: 02/15/18 09:21 Dose: 0.1 mg Diltiazem HCl (Cardizem Cd -) 240 mg PO DAILY [facility] Last Admin: 02/15/18 09:21 Dose: 240 mg Docusate Sodium (Colace -) 300 mg PO HS PRN PRN Reason: CONSTIPATION Duloxetine HCl (Cymbalta -) 60 mg PO DAILY [facility] Last Admin: 02/15/18 09:21 Dose: 60 mg Enalaprilat (Vasotec Injection -) 2.5 mg IVPB Q6H-IV [facility] Last Admin: 02/15/18 10:56 Dose: 2.5 mg Eucalyptus/Menthol/Phenol/Sorbitol (Cepastat Lozenge -) 1 each MM Q4H PRN PRN Reason: SORE THROAT Furosemide (Lasix -) 40 mg PO BID@0600,1400 [facility] Last Admin: 02/15/18 12:59 Dose: 40 mg Gabapentin (Neurontin -) 300 mg PO Q8H PRN PRN Reason: PAIN Last Admin: 02/15/18 05:33 Dose: 300 mg Guaifenesin (Diabetic Tussin Dm -) 10 ml PO Q4H PRN PRN Reason: COUGH Hydralazine HCl (Apresoline -) 25 mg PO BID [facility] Last Admin: 02/15/18 09:21 Dose: 25 mg Metronidazole (Flagyl 500mg Premixed Ivpb -) 500 mg in 100 mls @ 100 mls/hr IVPB Q8H-IV [facility] Last Admin: 02/15/18 10:54 Dose: 100 mls/hr Potassium Chloride/Sodium Chloride (1/2ns+20meq Kcl) 20 meq in 1,000 mls @ 33 mls/hr IV ASDIR [facility] Last Admin: 02/14/18 14:27 Dose: 33 mls/hr Insulin Aspart (Novolog Vial Sliding Scale -) 1 vial SQ ACHS [facility]; Protocol Last Admin: 02/15/18 12:41 Dose: 8 units Insulin Aspart (Novolog Mix 70/30 Vial) 15 units SQ BIDAC [facility] Last Admin: 02/15/18 06:14 Dose: Not Given Insulin Detemir (Levemir Vial) 40 units SQ BID@0700,2200 [facility] Last Admin: 02/15/18 06:14 Dose: Not Given Lactobacillus Acidophilus (Bacid -) 1 tab PO DAILY [facility] Last Admin: 02/15/18 09:21 Dose: 1 tab Levetiracetam (Keppra Injection -) 1,000 mg IVPB BID [facility] Last Admin: 02/15/18 10:53 Dose: 1,000 mg Morphine Sulfate (Morphine Sulfate) 2 mg IM Q4H PRN PRN Reason: PAIN LEVEL 6-10 Last Admin: 02/15/18 12:30 Dose: 2 mg Nicotine (Nicoderm Patch -) 21 mg TD DAILY [facility] Last Admin: 02/15/18 09:21 Dose: 21 mg Ondansetron HCl (Zofran Injection) 4 mg IVPUSH Q6H PRN PRN Reason: NAUSEA Pantoprazole Sodium (Protonix Iv) 40 mg IVPUSH BID [facility] Last Admin: 02/15/18 10:55 Dose: 40 mg Phenazopyridine HCl (Pyridium -) 100 mg PO Q8H PRN PRN Reason: dysuria Potassium Chloride (K-Dur -) 20 meq PO DAILY [facility] Last Admin: 02/15/18 09:21 Dose: 20 meq Prednisone (Deltasone -) 20 mg PO DAILY [facility] Last Admin: 02/15/18 09:21 Dose: 20 mg Senna (Senna -) 2 tab PO HS PRN PRN Reason: CONSTIPATION Vancomycin HCl (Vancomycin Oral Solution) 500 mg PO Q6HPO [facility] Last Admin: 02/15/18 11:06 Dose: 500 mg - Objective Vital Signs: Vital Signs Temperature 99.4 F 02/15/18 13:45 Pulse Rate 86 02/15/18 13:45 Respiratory Rate 18 02/15/18 13:45 Blood Pressure 112/63 02/15/18 13:45 O2 Sat by Pulse Oximetry (%) 93 L 02/15/18 09:00 Constitutional: Yes: Mild Distress Eyes: Yes: WNL HENT: Yes: WNL Neck: Yes: WNL Cardiovascular: Yes: WNL Respiratory: Yes: CTA Bilaterally, Cough Gastrointestinal: Yes: Normal Bowel Sounds, Soft, Abdomen, Obese Genitourinary: Yes: WNL Musculoskeletal: Yes: Muscle Pain Extremities: Yes: WNL Edema: Yes Edema: LLE: 1+, RLE: 1+ Peripheral Pulses WNL: Yes Integumentary: Yes: Venous Stasis Changes Wound/Incision: Yes: Clean/Dry Neurological: Yes: Pre-Existing Deficit ...Motor Strength: WNL Psychiatric: Yes: Agitated, Other (DEPRESSED AND ANXIOUS DENIES SUICIDAL OR HOMICIDAL THOUGHTS) Labs: CBC, BMP 02/15/18 06:20 02/15/18 06:20 INR, PTT INR 0.87 (0.83-1.09) 02/03/18 17:25 Problem List - Problems (1) Congestive heart failure Code(s): I50.9 - HEART FAILURE, UNSPECIFIED (2) COPD exacerbation Code(s): J44.1 - CHRONIC OBSTRUCTIVE PULMONARY DISEASE W (ACUTE) EXACERBATION (3) Chest pain at rest Code(s): R07.9 - CHEST PAIN, UNSPECIFIED (4) Chronic back pain Code(s): M54.9 - DORSALGIA, UNSPECIFIED; G89.29 - OTHER CHRONIC PAIN (5) Elevated liver enzymes Code(s): R74.8 - ABNORMAL LEVELS OF OTHER SERUM ENZYMES (6) Hypertension associated with diabetes Code(s): E11.59 - TYPE 2 DIABETES MELLITUS WITH OTH CIRCULATORY COMPLICATIONS; I10 - ESSENTIAL (PRIMARY) HYPERTENSION (7) IBS (irritable bowel syndrome) Code(s): K58.9 - IRRITABLE BOWEL SYNDROME WITHOUT DIARRHEA (8) Intractable abdominal pain Code(s): R10.9 - UNSPECIFIED ABDOMINAL PAIN (9) Opioid dependence in remission Code(s): F11.21 - OPIOID DEPENDENCE, IN REMISSION (10) Sepsis Code(s): A41.9 - SEPSIS, UNSPECIFIED ORGANISM (11) Asthma Code(s): J45.909 - UNSPECIFIED ASTHMA, UNCOMPLICATED Qualifiers: Asthma severity: unspecified severity Asthma persistence: intermittent Asthma complication type: uncomplicated Qualified Code(s): J45.20 - Mild intermittent asthma, uncomplicated (12) Benzodiazepine dependence Code(s): F13.20 - SEDATIVE, HYPNOTIC OR ANXIOLYTIC DEPENDENCE, UNCOMPLICATED (13) Bipolar II disorder Code(s): F31.81 - BIPOLAR II DISORDER (14) Chronic use of opiate drugs therapeutic purposes Code(s): Z79.899 - OTHER LEARNING DISABILITIES RESOURCE TEACHER (CURRENT) DRUG THERAPY (15) Hepatitis C Code(s): B19.20 - UNSPECIFIED VIRAL HEPATITIS C WITHOUT HEPATIC COMA Qualifiers: Viral hepatitis chronicity: unspecified Hepatic coma status: without hepatic coma Qualified Code(s): B19.20 - Unspecified viral hepatitis C without hepatic coma (16) Hypertension Code(s): I10 - ESSENTIAL (PRIMARY) HYPERTENSION Qualifiers: Hypertension type: essential hypertension Qualified Code(s): I10 - Essential (primary) hypertension (17) Hypothyroidism Code(s): E03.9 - HYPOTHYROIDISM, UNSPECIFIED Qualifiers: Hypothyroidism type: acquired Qualified Code(s): E03.9 - Hypothyroidism, unspecified (18) Nicotine dependence Code(s): F17.200 - NICOTINE DEPENDENCE, UNSPECIFIED, UNCOMPLICATED (19) Opioid dependence Code(s): F11.20 - OPIOID DEPENDENCE, UNCOMPLICATED (20) Post-laminectomy syndrome Code(s): M96.1 - POSTLAMINECTOMY SYNDROME, NOT ELSEWHERE CLASSIFIED (21) Seizure disorder Code(s): G40.909 - EPILEPSY, UNSP, NOT INTRACTABLE, WITHOUT STATUS EPILEPTICUS (22) Paroxysmal A-fib Code(s): I48.0 - PAROXYSMAL ATRIAL FIBRILLATION Assessment/Plan CHF IMPROVING CHANGED TO PO LASIX ON XARELTO FOR AFIB DM CONTROL MONITOR BGM MINIMIZE OPIODES IN THIS PATIENT HX OF SUBSTANCE ABUSE SEIZURE D/O CONTROLLED ACTING OUT WITH PSEUDO SEIZURES TO OBTAIN PAIN MEDS PSYCHIATRY CONSULT CALLED SNF PLACEMENT TOMORROW
[2018-02-15] MEDS ORDERED: DOCUSATE SODIUM 100 MG CAPSULE (FP) PO PRN (14:03)
[2018-02-15] MEDS ORDERED: ONDANSETRON *ODT* 4 MG TABLET SL PRN (14:05)
[2018-02-15] MEDS: oxyCODONE HCL 5 MG TABLET PO PRN (18:16)
[2018-02-15] MEDS ORDERED: Insulin (LOG) Aspart 100 UNITS/ML VIAL SQ ONE (18:18)
--- NOTE | 2018-02-15 21:07 | PN ---
GI Progress Note Subjective: GI NOte: Had 2 BMs today. Minimal cramps - Objective Vital Signs: Vital Signs Temperature 98.5 F 02/15/18 18:00 Pulse Rate 81 02/15/18 18:00 Respiratory Rate 18 02/15/18 18:00 Blood Pressure 110/67 02/15/18 18:00 O2 Sat by Pulse Oximetry (%) 93 L 02/15/18 09:00 Laboratory Tests 02/15/18 06:20 WBC 19.4 H Hgb 15.3 Laboratory Tests 02/11/18 02/15/18 06:50 06:20 Total Bilirubin 0.5 AST 28 ALT 29 Alkaline Phosphatase 78 Hepatitis A Ab Total Negative Hep Bs Antigen Negative Hep Bs Antibody Non reactive Hep B Core Total Ab Negative HCV Quantitation Pending Constitutional: Anxious ...Auscultate: Yes: Hypoactive Bowel Sounds ...Palpate: Yes: Soft, Other (nontender) Labs: CBC, BMP 02/15/18 06:20 02/15/18 06:20 INR, PTT INR 0.87 (0.83-1.09) 02/03/18 17:25 Assessment/Plan Resolving Clostridia difficile colitis Continue Vancomycin Await HCV status Problem List - Problems (1) Abdominal pain Code(s): R10.9 - UNSPECIFIED ABDOMINAL PAIN Qualifiers: Abdominal location: generalized Qualified Code(s): R10.84 - Generalized abdominal pain (2) Colitis Code(s): K52.9 - NONINFECTIVE GASTROENTERITIS AND COLITIS, UNSPECIFIED (3) Heroin abuse Code(s): F11.10 - OPIOID ABUSE, UNCOMPLICATED (4) Diabetes mellitus with hyperosmolarity Code(s): E11.00 - TYPE 2 DIAB W HYPROSM W/O NONKET HYPRGLY-HYPROS COMA ([facility]) (5) ASHD (arteriosclerotic heart disease) Code(s): I25.10 - ATHSCL HEART DISEASE OF [place] CORONARY ARTERY W/O ANG PCTRS (6) COPD exacerbation Code(s): J44.1 - CHRONIC OBSTRUCTIVE PULMONARY DISEASE W (ACUTE) EXACERBATION (7) Cocaine abuse Code(s): F14.10 - COCAINE ABUSE, UNCOMPLICATED (8) Diarrhea Code(s): R19.7 - DIARRHEA, UNSPECIFIED Qualifiers: Diarrhea type: infectious Qualified Code(s): A09 - Infectious gastroenteritis and colitis, unspecified (9) Leukocytosis Code(s): D72.829 - ELEVATED WHITE BLOOD CELL COUNT, UNSPECIFIED (10) Bipolar II disorder Code(s): F31.81 - BIPOLAR II DISORDER (11) Hepatitis C Code(s): B19.20 - UNSPECIFIED VIRAL HEPATITIS C WITHOUT HEPATIC COMA Qualifiers: Viral hepatitis chronicity: unspecified Hepatic coma status: without hepatic coma Qualified Code(s): B19.20 - Unspecified viral hepatitis C without hepatic coma (12) C. difficile colitis Code(s): A04.72 - ENTEROCOLITIS D/T CLOSTRIDIUM DIFFICILE, NOT SPCF RECUR
[2018-02-15] MEDS: ATORVASTATIN CA 20 MG TABLET (FP) PO SCH (22:30)
[2018-02-15] MEDS: PANTOPRAZOLE 40 MG TABLET (FP) PO SCH (22:30)
[2018-02-15] MEDS: levETIRAcetam 500 MG TABLET (FP) PO SCH (22:30)
[2018-02-16] MEDS: ALBUTEROL SO4 0.083% IH SOL 2.5 MG/3 ML VIAL.NEB. NEB SCH ×5 (00:38→16:36)
[2018-02-16] MEDS: VANCOMYCIN 250 MG/5 ML ORAL SOLUTION PO SCH ×5 (01:35→23:50)
[2018-02-16] MEDS: INSULIN (LEVEMIR) 100 UNITS/ML UNITS SQ SCH ×2 (06:46→21:27)
[2018-02-16] MEDS: INSULIN (NOVOLOG MIX 70/30) 100 UNITS/ML MDV SQ SCH ×2 (06:47→16:49)
[2018-02-16] MEDS: INSULIN SLIDING SCALE (NOVOLOG) 1 VIAL SQ SCH ×4 (06:47→21:27)
[2018-02-16 07:31] LABS: BASO % 0.3 % (0-2.0); EOS % 1.2 % (0-4.5); HEMATOCRIT 42.4 % (32.4-45.2); HEMOGLOBIN 13.7 GM/dL (10.7-15.3); MCH 29.1 pg (25.7-33.7); MCHC 32.3 g/dl (32.0-36.0); MEAN PLT VOLUME 8.3 fl (7.5-11.1); MONO % 8.8 % (3.8-10.2); NEUT % 65.7 % (42.8-82.8); PLATELET COUNT 264 K/MM3 (134-434); RBC 4.71 M/mm3 (3.60-5.2); RDW 13.9 % (11.6-15.6); WHITE BLOOD COUNT 18.1 K/mm3 (4.0-10.0)
[2018-02-16] MEDS: ACETYLCYSTEINE 20% 200MG/ML 4 ML VIAL *FOR ORAL / INH USE ONLY NEB SCH ×2 (07:55→20:52)
--- NOTE | 2018-02-16 07:56 | PN ---
Progress Note (short form) - Note Progress Note: 7 year old female history of CAD, HTN, CHF, HLD, COPD, BIPOLAR Disorder , was admitted for sob and productive cough, fever and exacerbation of COPD While on floor she has given oxycodone and she became unreponsive. There is no tonic clonic activity. Patient has improved back to her baseline and she had ct scan is normal. She has refused ct head Patient has episode when she would twitch in her hand and eye, and she would be screaming , make my pain go away. She keep insisting , if she get pain medicaiton her seizure would go away. There is no post ictal confusio, tongue bite or incontinence. She was loaded with keppra and has not had since loaded with keppra. patient has not had any episode in last 48 hours, her speech is better. Neurological Examination Alert oriented x follow command, eomi, pupils reactive, no face asymemtry moving all extremity sensation is normal ct head is normal mri of brain refused EEG pending Assessment- Recurrent episode of twitching and crying at the same time, atypical features , clinically Unlikley to be epileptic seizure. mri of brain she refused. 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 I would taper to d/c as outpatient in next four weeks -Psych Consult pending Fraciscoing you so much Tio Cerrato MD
[2018-02-16 08:17] LABS: ALK PHOS 80 U/L (45-117); ANION GAP 8 MMOL/L (8-16); BILIRUBIN,TOTAL 0.5 mg/dL (0.2-1); BLOOD UREA NITROGEN 16 mg/dL (7-18); CALCIUM 8.5 mg/dL (8.5-10.1); CHLORIDE 95 mmol/L (98-107); CO2 35 mmol/L (21-32); CREATININE 0.5 mg/dL (0.55-1.3); GLUCOSE,RANDOM 178 mg/dL (74-106); POTASSIUM 3.2 mmol/L (3.5-5.1); SGOT/AST 19 U/L (15-37); SGPT/ALT 33 U/L (13-61); SODIUM 138 mmol/L (136-145); TOT PROT 5.3 g/dl (6.4-8.2)
--- NOTE | 2018-02-16 10:24 | PN ---
Progress Note, Physician Chief Complaint: AWAKE MORE ALERT FEELS SAD DENIES SUICIDAL OR HOMICIDAL THOUGHTS PATIENT IS ALWAYS CRYING/LABILE REPORTS ALWAYS FEELS DOWN AND CANT BE HAPPY. I WALKED INTO THE ROOM AND SHE WAS ON HER CELL PHONE AND SEEMED HAPPY UNTIL SHE GOT OFF THE PHONE. - Current Medication List Current Medications: Active Medications Acetylcysteine (Mucomyst 20 Oral / Inh Use Only*) 400 mg NEB RBID [facility] Last Admin: 02/16/18 07:55 Dose: Not Given Albuterol Sulfate (Ventolin 0.083% Nebulizer Soln -) 1 amp NEB RQ4H [facility] Last Admin: 02/16/18 07:55 Dose: Not Given Apixaban (Eliquis -) 5 mg PO BID [facility] Last Admin: 02/15/18 22:30 Dose: 5 mg Aspirin (Ecotrin -) 81 mg PO DAILY [facility] Last Admin: 02/15/18 09:21 Dose: 81 mg Atorvastatin Calcium (Lipitor -) 20 mg PO HS [facility] Last Admin: 02/15/18 22:30 Dose: 20 mg Budesonide/Formoterol Fumarate (Symbicort 160/4.5mcg -) 2 puff IH BID [facility] Last Admin: 02/15/18 22:33 Dose: 2 puff Clonidine (Catapres -) 0.1 mg PO BID [facility] Last Admin: 02/15/18 22:30 Dose: 0.1 mg Diltiazem HCl (Cardizem Cd -) 240 mg PO DAILY [facility] Last Admin: 02/15/18 09:21 Dose: 240 mg Docusate Sodium (Colace -) 300 mg PO HS PRN PRN Reason: CONSTIPATION Docusate Sodium (Colace -) 100 mg PO BID PRN PRN Reason: CONSTIPATION Duloxetine HCl (Cymbalta -) 60 mg PO DAILY [facility] Last Admin: 02/15/18 09:21 Dose: 60 mg Eucalyptus/Menthol/Phenol/Sorbitol (Cepastat Lozenge -) 1 each MM Q4H PRN PRN Reason: SORE THROAT Furosemide (Lasix -) 40 mg PO DAILY [facility] Gabapentin (Neurontin -) 300 mg PO Q8H PRN PRN Reason: PAIN Last Admin: 02/15/18 22:30 Dose: 300 mg Guaifenesin (Diabetic Tussin Dm -) 10 ml PO Q4H PRN PRN Reason: COUGH Hydralazine HCl (Apresoline -) 25 mg PO BID [facility] Last Admin: 02/15/18 22:31 Dose: 25 mg Metronidazole (Flagyl 500mg Premixed Ivpb -) 500 mg in 100 mls @ 100 mls/hr IVPB Q8H-IV [facility] Last Admin: 02/16/18 01:35 Dose: 100 mls/hr Insulin Aspart (Novolog Vial Sliding Scale -) 1 vial SQ ACHS [facility]; Protocol Last Admin: 02/16/18 06:47 Dose: 2 units Insulin Aspart (Novolog Mix 70/30 Vial) 15 units SQ BIDAC [facility] Last Admin: 02/16/18 06:47 Dose: 15 units Insulin Detemir (Levemir Vial) 40 units SQ BID@0700,2200 [facility] Last Admin: 02/16/18 06:46 Dose: 40 units Lactobacillus Acidophilus (Bacid -) 1 tab PO DAILY [facility] Last Admin: 02/15/18 09:21 Dose: 1 tab Levetiracetam (Keppra -) 1,000 mg PO BID [facility] Last Admin: 02/15/18 22:30 Dose: 1,000 mg Lisinopril (Prinivil) 5 mg PO DAILY [facility] Nicotine (Nicoderm Patch -) 21 mg TD DAILY [facility] Last Admin: 02/15/18 09:21 Dose: 21 mg Ondansetron HCl (Zofran Odt -) 8 mg SL Q6H PRN PRN Reason: NAUSEA AND/OR VOMITING Oxycodone HCl (Roxicodone -) 10 mg PO Q6H PRN PRN Reason: PAIN LEVEL 7 - 10 Last Admin: 02/15/18 18:16 Dose: 10 mg Pantoprazole Sodium (Protonix -) 40 mg PO BID [facility] Last Admin: 02/15/18 22:30 Dose: 40 mg Phenazopyridine HCl (Pyridium -) 100 mg PO Q8H PRN PRN Reason: dysuria Potassium Chloride (K-Dur -) 20 meq PO DAILY [facility] Last Admin: 02/15/18 09:21 Dose: 20 meq Potassium Chloride (K-Dur -) 40 meq PO ONCE ONE Stop: 02/16/18 10:31 Prednisone (Deltasone -) 20 mg PO DAILY [facility] Last Admin: 02/15/18 09:21 Dose: 20 mg Senna (Senna -) 2 tab PO HS PRN PRN Reason: CONSTIPATION Vancomycin HCl (Vancomycin Oral Solution) 500 mg PO Q6HPO [facility] Last Admin: 02/16/18 06:47 Dose: 500 mg - Objective Vital Signs: Vital Signs Temperature 98.5 F 02/16/18 06:00 Pulse Rate 79 02/16/18 06:00 Respiratory Rate 18 02/16/18 06:00 Blood Pressure 126/78 02/16/18 06:00 O2 Sat by Pulse Oximetry (%) 97 02/15/18 21:00 Constitutional: Yes: Mild Distress Eyes: Yes: WNL HENT: Yes: WNL Neck: Yes: WNL Cardiovascular: Yes: Regular Rate and Rhythm Respiratory: Yes: Diminished, Other Gastrointestinal: Yes: Normal Bowel Sounds, Soft Genitourinary: Yes: WNL Musculoskeletal: Yes: Muscle Pain Extremities: Yes: WNL Edema: Yes Edema: LLE: Trace, RLE: Trace Peripheral Pulses WNL: Yes Integumentary: Yes: WNL Wound/Incision: Yes: Clean/Dry Neurological: Yes: Pre-Existing Deficit ...Motor Strength: WNL Psychiatric: Yes: Other (DEPRESSED/ANXIOUS) Labs: CBC, BMP 02/16/18 05:50 02/16/18 05:50 INR, PTT INR 0.87 (0.83-1.09) 02/03/18 17:25 Problem List - Problems (1) Congestive heart failure Code(s): I50.9 - HEART FAILURE, UNSPECIFIED Qualifiers: Heart failure type: diastolic (2) COPD exacerbation Code(s): J44.1 - CHRONIC OBSTRUCTIVE PULMONARY DISEASE W (ACUTE) EXACERBATION (3) Chest pain at rest Code(s): R07.9 - CHEST PAIN, UNSPECIFIED (4) Chronic back pain Code(s): M54.9 - DORSALGIA, UNSPECIFIED; G89.29 - OTHER CHRONIC PAIN (5) Elevated liver enzymes Code(s): R74.8 - ABNORMAL LEVELS OF OTHER SERUM ENZYMES (6) Hypertension associated with diabetes Code(s): E11.59 - TYPE 2 DIABETES MELLITUS WITH OTH CIRCULATORY COMPLICATIONS; I10 - ESSENTIAL (PRIMARY) HYPERTENSION (7) IBS (irritable bowel syndrome) Code(s): K58.9 - IRRITABLE BOWEL SYNDROME WITHOUT DIARRHEA (8) Intractable abdominal pain Code(s): R10.9 - UNSPECIFIED ABDOMINAL PAIN (9) Opioid dependence in remission Code(s): F11.21 - OPIOID DEPENDENCE, IN REMISSION (10) Sepsis Code(s): A41.9 - SEPSIS, UNSPECIFIED ORGANISM (11) Asthma Code(s): J45.909 - UNSPECIFIED ASTHMA, UNCOMPLICATED Qualifiers: Asthma severity: unspecified severity Asthma persistence: intermittent Asthma complication type: uncomplicated Qualified Code(s): J45.20 - Mild intermittent asthma, uncomplicated (12) Benzodiazepine dependence Code(s): F13.20 - SEDATIVE, HYPNOTIC OR ANXIOLYTIC DEPENDENCE, UNCOMPLICATED (13) Bipolar II disorder Code(s): F31.81 - BIPOLAR II DISORDER (14) Chronic use of opiate drugs therapeutic purposes Code(s): Z79.899 - OTHER CHECK AND TRANSFER BEADER (CURRENT) DRUG THERAPY (15) Hepatitis C Code(s): B19.20 - UNSPECIFIED VIRAL HEPATITIS C WITHOUT HEPATIC COMA Qualifiers: Viral hepatitis chronicity: unspecified Hepatic coma status: without hepatic coma Qualified Code(s): B19.20 - Unspecified viral hepatitis C without hepatic coma (16) Hypertension Code(s): I10 - ESSENTIAL (PRIMARY) HYPERTENSION Qualifiers: Hypertension type: essential hypertension Qualified Code(s): I10 - Essential (primary) hypertension (17) Hypothyroidism Code(s): E03.9 - HYPOTHYROIDISM, UNSPECIFIED Qualifiers: Hypothyroidism type: acquired Qualified Code(s): E03.9 - Hypothyroidism, unspecified (18) Nicotine dependence Code(s): F17.200 - NICOTINE DEPENDENCE, UNSPECIFIED, UNCOMPLICATED (19) Opioid dependence Code(s): F11.20 - OPIOID DEPENDENCE, UNCOMPLICATED (20) Post-laminectomy syndrome Code(s): M96.1 - POSTLAMINECTOMY SYNDROME, NOT ELSEWHERE CLASSIFIED (21) Seizure disorder Code(s): G40.909 - EPILEPSY, UNSP, NOT INTRACTABLE, WITHOUT STATUS EPILEPTICUS (22) Paroxysmal A-fib Code(s): I48.0 - PAROXYSMAL ATRIAL FIBRILLATION Assessment/Plan PSYCHIATRY CONSULT CALLED WILL NEED A CLINIC OR INSTITUTE THAT HAS PSYCHIATRY, SOCIAL WORKERS, AND MULTIPLE DISCIPLINED SERVICED THROUGHOUT THE COMMUNITY IN ORDER TO FULFILL MS. THOMPSON'S NEEDS. I DISCUSSED THIS WITH HER AND WHEN SHE IS DISCHARGED SHE WILL NEED TO HAVE HER RECORDS TRANSFERRED FROM THE HOSPITAL AND MY OFFICE TO EITHER [facility] OR [facility] WHERE SHE WILL CONTINUE HER OUTPATIENT CARE. CONTINUE ABX PO VANCO NON-DAITY LOW FAT LOW FIBER DIET SNF IF QUALIFIED
[2018-02-16] MEDS ORDERED: POTASSIUM CHLORIDE TABS 10 MEQ TABLET.ER (FP) PO ONE (10:30)
[2018-02-16] MEDS: levETIRAcetam 500 MG TABLET (FP) PO SCH ×2 (10:39→21:26)
[2018-02-16] MEDS: ASPIRIN COATED 81 MG TABLET.EC PO SCH (10:39)
[2018-02-16] MEDS: APIXABAN 5 MG TABLET PO SCH ×2 (10:39→21:26)
[2018-02-16] MEDS: LISINOPRIL 5 MG TABLET (FP) PO SCH (10:39)
[2018-02-16] MEDS: NICOTINE 21 MG/24 HOURS TOPICAL PATCH TD SCH (10:39)
[2018-02-16] MEDS: POTASSIUM CHLORIDE TABS 20 MEQ TABLET.ER (FP) PO SCH (10:39)
[2018-02-16] MEDS: hydrALAZINE HCL 25 MG TABLET (FP) PO SCH ×2 (10:39→21:26)
[2018-02-16] MEDS: GABAPENTIN 300 MG CAPSULE (FP) PO PRN ×2 (10:39→21:40)
[2018-02-16] MEDS: LACTOBACILLUS ACIDOPHILUS 1 TABLET PO SCH (10:39)
[2018-02-16] MEDS: cloNIDine HCL 0.1 MG TABLET PO SCH ×2 (10:40→21:26)
[2018-02-16] MEDS: predniSONE 20 MG TABLET (UD) PO SCH (10:40)
[2018-02-16] MEDS: FUROSEMIDE 40 MG TABLET (FP) PO SCH (10:40)
[2018-02-16] MEDS: PANTOPRAZOLE 40 MG TABLET (FP) PO SCH ×2 (10:40→21:26)
[2018-02-16] MEDS: DULoxetine HCL 30 MG CAPSULE.DR (FP) PO SCH (10:40)
--- NOTE | 2018-02-16 10:43 | CONSULT ---
Admitting History and Physical - Primary Care Physician PCP: cR Pineda - Admission History of Present Illness: Chart reviewed, pt examined, case discussed with Dr. Pineda. Pt c/o dysphagia yesterday but denies difficulty today. 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 pt thinks she may have had one in the past (L facial droop)), Seizure Cardiovascular: Yes: CAD (with stents), HTN, Hyperlipdemia, Murmur (tricuspic insufficiency) Pulmonary: Yes: Asthma, COPD Gastrointestinal: Yes: Gastritis, Other ("colitis" mid-April) Hepatobiliary: Yes: Hepatitis C Infectious Disease: Yes: MRSA (R thigh abscess 02/26) Psych: Yes: Addictions, Anxiety, Bipolar, Depression Musculoskeletal: Yes: Chronic low back pain Endocrine: Yes: Diabetes Mellitus - Past Surgical History Past Surgical History: Yes: Appendectomy, Cholecystectomy (laparoscopic), Colonoscopy, Hysterectomy (vaginal), Tonsillectomy, Upper Endoscopy - Smoking History Smoking history: Current every day smoker Have you smoked in the past 12 months: Yes Aproximately how many cigarettes per day: 20 - Alcohol/Substance Use Hx Alcohol Use: No History of Substance Use: reports: Cocaine (crack), Heroin (snorted cocaine and heroin, denies IVDA) - Social History ADL: Family Assistance Occupation: disabled History of Recent Travel: No History - Admission Reason For Visit: COPD - Diagnostics X-ray: Report Reviewed CT Scan: Report Reviewed - General Mental Status: Alert and Oriented, Awake and Alert, Able to Follow Commands Attention: Intact Ability to Follow Directions: Good Head/Neck Control: WFL - Hearing Hearing: Normal Speech Evaluation - Communication Primary Language: PORTUGUESE - Speech Production Able to Make Needs Known: Yes: WNL Intelligibility: Yes: WNL - Speech Characteristics Voice Loudness: Normal Voice Pitch: Yes: Normal Voice Phonatory-based Quality: Yes: Dysphonia (intermittent hoarseness. Reports reflux once in a while. Swallowing behaviors reviewed. Very limited intake of caffiene, carbonation, citrus, spicy, but she does eat meals in bed. She may recline soon after eating which can cause laryngopharyngeal reflux.) Speech Pattern: Normal Speech Clarity: < 100% Nasal Resonance: Normal Articulation: Yes: Precise - Language/Auditory Comprehension Follows: Yes: 2 Stage Simple Commands - Language/Verbal Expression Able to Communicate Wants and Needs: Yes: WNL Functional Communication Status: Yes: WNL - Memory/Perception detention Memory: Yes: WNL Short Term Memory: Yes: WNL - Swallow Evaluation/Bedside Assessment Current Nutritional Intake: Regular Oral Secretions: Yes: WFL Dentition: Yes: Adequate (upper), Edentulous (lower) Facial Symmetry at Rest: Facial Droop Left Facial Symmetry on Retraction: Symmetrical Facial Movement: Controlled Against Resistance Opening: Normal Against Resistance Closing: Normal Pucker Lips: Normal Lingual Movement: Normal, Symmetric Lingual Speed of Movement: Normal Lingual Movement Strgth Against Opposition: Normal Lingual Movement Characteristics: Normal Velopharyngeal Movement: Normal Laryngeal Elevation: WFL Laryngeal Movement: Able to Palpate Rate of Intake: WFL Bolus Size: WFL Labial Seal: WFL Chewing: WFL Oral Prep Time: WFL A-P Transit: WFL Pocketing: None Timing of Swallow: WFL Coughing/Throat Clear: No Change in Voice: No Recommendations - Speech Evaluation, Impression/Plan Impression: Vocal hoaresness may be related to laryngopharyngeal reflux. c/o dysphagia yesterday, but denies symptoms today.Swallowing overtly intact - Dysphagia Impressions/Plan Swallowing Skills: [facility] Dysphagia Impressions: No Impairment *Silent aspiration: cannot be R/O at bedside Dysphagia Treatment Plan: OOB for meals, OOB for 1 h. after meals, Other (GERD precautions reviewed. Pt advised to maintain upright posture after meals and avoid PO intake within 2-3 hours of bedtime.) - Recommendations Diet Consistency: Regular Medication Administration: Whole with water Liquids: Thin Liquids
[2018-02-16] MEDS: oxyCODONE HCL 5 MG TABLET PO PRN ×3 (10:44→23:49)
[2018-02-16] MEDS: BUDESONIDE/FORMETEROL FUMARATE 160/4.5 mcg INHALER IH SCH ×2 (10:54→21:25)
[2018-02-16 11:12] LABS: ACANTHOCYTES 0; ANISOCYTOSIS 0; HELMET CELLS 0; HOWELL-JOLLY BODIES 0; MACROCYTOSIS 0; OVALOCYTE 0; PLATELET ESTIMATE NORMAL; ROULEAU 0; SICKELED CELLS 0; TARGET CELLS 0; TEAR DROP CELLS 0; TOXIC GRANULATION 0
--- NOTE | 2018-02-16 12:12 | CON.PSY ---
Psychiatry Consult Chief Complaint: 57 michell old female with ahistory of chronic medical conditions and depression and anxiety. Patient seen for Psych consult. Patient wants Xanax 2mg po QID, has seen DR. ortiz in [facility]. Symptoms: reports: Sleep Disturbance, Anxiety - Previous Psychiatric Treatment Outpatient: Less than 6 mos ago Inpatient: One prior admission - Previous Substance Abuse Treatment Outpatient: None Inpatient: None - Reason for Previous Treatment Reason for Previous Treatment: Major Depression, Anxiety or Panic Disorder - Current Medications Current Medications: Active Medications Acetylcysteine (Mucomyst 20 Oral / Inh Use Only*) 400 mg NEB RBID [facility] Last Admin: 02/16/18 07:55 Dose: Not Given Albuterol Sulfate (Ventolin 0.083% Nebulizer Soln -) 1 amp NEB RQ4H [facility] Last Admin: 02/16/18 11:34 Dose: Not Given Apixaban (Eliquis -) 5 mg PO BID [facility] Last Admin: 02/16/18 10:39 Dose: 5 mg Aspirin (Ecotrin -) 81 mg PO DAILY [facility] Last Admin: 02/16/18 10:39 Dose: 81 mg Atorvastatin Calcium (Lipitor -) 20 mg PO HS [facility] Last Admin: 02/15/18 22:30 Dose: 20 mg Budesonide/Formoterol Fumarate (Symbicort 160/4.5mcg -) 2 puff IH BID [facility] Last Admin: 02/16/18 10:54 Dose: Not Given Clonidine (Catapres -) 0.1 mg PO BID [facility] Last Admin: 02/16/18 10:40 Dose: 0.1 mg Diltiazem HCl (Cardizem Cd -) 240 mg PO DAILY [facility] Last Admin: 02/16/18 10:40 Dose: 240 mg Docusate Sodium (Colace -) 300 mg PO HS PRN PRN Reason: CONSTIPATION Docusate Sodium (Colace -) 100 mg PO BID PRN PRN Reason: CONSTIPATION Duloxetine HCl (Cymbalta -) 60 mg PO DAILY [facility] Last Admin: 02/16/18 10:40 Dose: 60 mg Eucalyptus/Menthol/Phenol/Sorbitol (Cepastat Lozenge -) 1 each MM Q4H PRN PRN Reason: SORE THROAT Furosemide (Lasix -) 40 mg PO DAILY [facility] Last Admin: 02/16/18 10:40 Dose: 40 mg Gabapentin (Neurontin -) 300 mg PO Q8H PRN PRN Reason: PAIN Last Admin: 02/16/18 10:39 Dose: 300 mg Guaifenesin (Diabetic Tussin Dm -) 10 ml PO Q4H PRN PRN Reason: COUGH Hydralazine HCl (Apresoline -) 25 mg PO BID [facility] Last Admin: 02/16/18 10:39 Dose: 25 mg Metronidazole (Flagyl 500mg Premixed Ivpb -) 500 mg in 100 mls @ 100 mls/hr IVPB Q8H-IV [facility] Last Admin: 02/16/18 10:48 Dose: 100 mls/hr Insulin Aspart (Novolog Vial Sliding Scale -) 1 vial SQ ACHS [facility]; Protocol Last Admin: 02/16/18 06:47 Dose: 2 units Insulin Aspart (Novolog Mix 70/30 Vial) 15 units SQ BIDAC [facility] Last Admin: 02/16/18 06:47 Dose: 15 units Insulin Detemir (Levemir Vial) 40 units SQ BID@0700,2200 [facility] Last Admin: 02/16/18 06:46 Dose: 40 units Lactobacillus Acidophilus (Bacid -) 1 tab PO DAILY [facility] Last Admin: 02/16/18 10:39 Dose: 1 tab Levetiracetam (Keppra -) 1,000 mg PO BID [facility] Last Admin: 02/16/18 10:39 Dose: 1,000 mg Lisinopril (Prinivil) 5 mg PO DAILY [facility] Last Admin: 02/16/18 10:39 Dose: 5 mg Nicotine (Nicoderm Patch -) 21 mg TD DAILY [facility] Last Admin: 02/16/18 10:39 Dose: 21 mg Ondansetron HCl (Zofran Odt -) 8 mg SL Q6H PRN PRN Reason: NAUSEA AND/OR VOMITING Oxycodone HCl (Roxicodone -) 10 mg PO Q6H PRN PRN Reason: PAIN LEVEL 7 - 10 Last Admin: 02/16/18 10:44 Dose: 10 mg Pantoprazole Sodium (Protonix -) 40 mg PO BID [facility] Last Admin: 02/16/18 10:40 Dose: 40 mg Phenazopyridine HCl (Pyridium -) 100 mg PO Q8H PRN PRN Reason: dysuria Potassium Chloride (K-Dur -) 20 meq PO DAILY [facility] Last Admin: 02/16/18 10:39 Dose: 20 meq Prednisone (Deltasone -) 20 mg PO DAILY [facility] Last Admin: 02/16/18 10:40 Dose: 20 mg Senna (Senna -) 2 tab PO HS PRN PRN Reason: CONSTIPATION Vancomycin HCl (Vancomycin Oral Solution) 500 mg PO Q6HPO [facility] Last Admin: 02/16/18 06:47 Dose: 500 mg - Allergies Allergies: Allergies Allergy/AdvReac Type Severity Reaction Status Date / Time No Known Allergies Allergy Verified 02/03/18 16:52 - Current Mental Status Evaluation Appearance: Well Groomed Attitude: Cooperative - Affect Affect: Constrictive Appropriateness: Appropriate to Content - Mood Mood: Anxious - Speech/Language Expressive: Coherent - Psychomotor Activity Psychomotor Activity: Normal - Thought Process Thought Process: Intact - Thought Content Hallucinations: Absent Delusions: Absent - Self Perception Self Perception: No Impairment - Cognition Attention: Alert Orientation: Time Memory, Immediate Recall: Intact Memory, Short Term: 3/3 Memory, Remote with Promptin/3 - Concentration Serial Sevens Intact: Yes Simple Calculations Intact: Yes - Abstraction Proverb Interpretation: Intact Judgement: Minimally Impaired - Insight Insight: Intact - Impulse Control Impulse Control: Minimally Impaired - Suicidal Ideation Suicidal Ideation: No - Homicidal Ideation Homicidal Ideation: No Assessment/Plan 1) Continue with Cymbaltya 60 mh po od. 2) Add Trazadone 100mg po hs for insomnia. 3) discharge when medically stable.
--- NOTE | 2018-02-16 13:41 | PN ---
Progress Note, Physician History of Present Illness: pulmonary alert,no distress,-sob - Current Medication List Current Medications: Active Medications Acetylcysteine (Mucomyst 20 Oral / Inh Use Only*) 400 mg NEB RBID [facility] Last Admin: 02/16/18 07:55 Dose: Not Given Albuterol Sulfate (Ventolin 0.083% Nebulizer Soln -) 1 amp NEB RQ4H [facility] Last Admin: 02/16/18 11:34 Dose: Not Given Apixaban (Eliquis -) 5 mg PO BID [facility] Last Admin: 02/16/18 10:39 Dose: 5 mg Aspirin (Ecotrin -) 81 mg PO DAILY [facility] Last Admin: 02/16/18 10:39 Dose: 81 mg Atorvastatin Calcium (Lipitor -) 20 mg PO HS [facility] Last Admin: 02/15/18 22:30 Dose: 20 mg Budesonide/Formoterol Fumarate (Symbicort 160/4.5mcg -) 2 puff IH BID [facility] Last Admin: 02/16/18 10:54 Dose: Not Given Clonidine (Catapres -) 0.1 mg PO BID [facility] Last Admin: 02/16/18 10:40 Dose: 0.1 mg Diltiazem HCl (Cardizem Cd -) 240 mg PO DAILY [facility] Last Admin: 02/16/18 10:40 Dose: 240 mg Docusate Sodium (Colace -) 300 mg PO HS PRN PRN Reason: CONSTIPATION Docusate Sodium (Colace -) 100 mg PO BID PRN PRN Reason: CONSTIPATION Duloxetine HCl (Cymbalta -) 60 mg PO DAILY [facility] Last Admin: 02/16/18 10:40 Dose: 60 mg Eucalyptus/Menthol/Phenol/Sorbitol (Cepastat Lozenge -) 1 each MM Q4H PRN PRN Reason: SORE THROAT Furosemide (Lasix -) 40 mg PO DAILY [facility] Last Admin: 02/16/18 10:40 Dose: 40 mg Gabapentin (Neurontin -) 300 mg PO Q8H PRN PRN Reason: PAIN Last Admin: 02/16/18 10:39 Dose: 300 mg Guaifenesin (Diabetic Tussin Dm -) 10 ml PO Q4H PRN PRN Reason: COUGH Hydralazine HCl (Apresoline -) 25 mg PO BID [facility] Last Admin: 02/16/18 10:39 Dose: 25 mg Metronidazole (Flagyl 500mg Premixed Ivpb -) 500 mg in 100 mls @ 100 mls/hr IVPB Q8H-IV [facility] Last Admin: 02/16/18 10:48 Dose: 100 mls/hr Insulin Aspart (Novolog Vial Sliding Scale -) 1 vial SQ ACHS [facility]; Protocol Last Admin: 02/16/18 12:28 Dose: 3 units Insulin Aspart (Novolog Mix 70/30 Vial) 15 units SQ BIDAC [facility] Last Admin: 02/16/18 06:47 Dose: 15 units Insulin Detemir (Levemir Vial) 40 units SQ BID@0700,2200 [facility] Last Admin: 02/16/18 06:46 Dose: 40 units Lactobacillus Acidophilus (Bacid -) 1 tab PO DAILY [facility] Last Admin: 02/16/18 10:39 Dose: 1 tab Levetiracetam (Keppra -) 1,000 mg PO BID [facility] Last Admin: 02/16/18 10:39 Dose: 1,000 mg Lisinopril (Prinivil) 5 mg PO DAILY [facility] Last Admin: 02/16/18 10:39 Dose: 5 mg Nicotine (Nicoderm Patch -) 21 mg TD DAILY [facility] Last Admin: 02/16/18 10:39 Dose: 21 mg Ondansetron HCl (Zofran Odt -) 8 mg SL Q6H PRN PRN Reason: NAUSEA AND/OR VOMITING Oxycodone HCl (Roxicodone -) 10 mg PO Q6H PRN PRN Reason: PAIN LEVEL 7 - 10 Last Admin: 02/16/18 10:44 Dose: 10 mg Pantoprazole Sodium (Protonix -) 40 mg PO BID [facility] Last Admin: 02/16/18 10:40 Dose: 40 mg Phenazopyridine HCl (Pyridium -) 100 mg PO Q8H PRN PRN Reason: dysuria Potassium Chloride (K-Dur -) 20 meq PO DAILY [facility] Last Admin: 02/16/18 10:39 Dose: 20 meq Prednisone (Deltasone -) 20 mg PO DAILY [facility] Last Admin: 02/16/18 10:40 Dose: 20 mg Senna (Senna -) 2 tab PO HS PRN PRN Reason: CONSTIPATION Trazodone HCl (Desyrel -) 100 mg PO HS [facility] Vancomycin HCl (Vancomycin Oral Solution) 500 mg PO Q6HPO [facility] Last Admin: 02/16/18 12:31 Dose: 500 mg - Objective Vital Signs: Vital Signs Temperature 99.2 F 02/16/18 10:00 Pulse Rate 88 02/16/18 10:00 Respiratory Rate 18 02/16/18 10:00 Blood Pressure 135/62 02/16/18 10:00 O2 Sat by Pulse Oximetry (%) 95 02/16/18 10:00 Constitutional: Yes: Well Nourished, Calm, Pallor HENT: Yes: WNL Neck: Yes: WNL Cardiovascular: Yes: Regular Rate and Rhythm, S1, S2 Respiratory: Yes: CTA Bilaterally Gastrointestinal: Yes: Normal Bowel Sounds, Soft Extremities: Yes: WNL Edema: No Labs: CBC, BMP 02/16/18 05:50 02/16/18 05:50 INR, PTT INR 0.87 (0.83-1.09) 02/03/18 17:25 Problem List - Problems (1) ASHD (arteriosclerotic heart disease) Code(s): I25.10 - ATHSCL HEART DISEASE OF [place] CORONARY ARTERY W/O ANG PCTRS (2) COPD exacerbation Code(s): J44.1 - CHRONIC OBSTRUCTIVE PULMONARY DISEASE W (ACUTE) EXACERBATION (3) IBS (irritable bowel syndrome) Code(s): K58.9 - IRRITABLE BOWEL SYNDROME WITHOUT DIARRHEA (4) Tobacco abuse Code(s): Z72.0 - TOBACCO USE (5) Tobacco abuse counseling Code(s): Z71.6 - TOBACCO ABUSE COUNSELING (6) Asthma Code(s): J45.909 - UNSPECIFIED ASTHMA, UNCOMPLICATED Qualifiers: Asthma severity: unspecified severity Asthma persistence: intermittent Asthma complication type: uncomplicated Qualified Code(s): J45.20 - Mild intermittent asthma, uncomplicated (7) Diabetes type 2, controlled Code(s): E11.9 - TYPE 2 DIABETES MELLITUS WITHOUT COMPLICATIONS (8) Hypothyroidism Code(s): E03.9 - HYPOTHYROIDISM, UNSPECIFIED Qualifiers: Hypothyroidism type: acquired Qualified Code(s): E03.9 - Hypothyroidism, unspecified Assessment/Plan IMP COPD EXACERBATION SLOWLY IMPROVING ASHD S/P STENT DM CHF PULMONARY HTN TOBACCO ABUSE LIKELY OSAS C-DIFF PLAN INHALED BRONCHODILATORS O2 VANCO PO DVT PROPHYLAXIS SLEEP SCREEN SMOKING CESSATION COUNSELED REPLETE JULIAN PERDUE Problem List - Problems (1) ASHD (arteriosclerotic heart disease) Code(s): I25.10 - ATHSCL HEART DISEASE OF [place] CORONARY ARTERY W/O ANG PCTRS (2) COPD exacerbation Code(s): J44.1 - CHRONIC OBSTRUCTIVE PULMONARY DISEASE W (ACUTE) EXACERBATION (3) IBS (irritable bowel syndrome) Code(s): K58.9 - IRRITABLE BOWEL SYNDROME WITHOUT DIARRHEA (4) Tobacco abuse Code(s): Z72.0 - TOBACCO USE (5) Tobacco abuse counseling Code(s): Z71.6 - TOBACCO ABUSE COUNSELING (6) Asthma Code(s): J45.909 - UNSPECIFIED ASTHMA, UNCOMPLICATED Qualifiers: Asthma severity: unspecified severity Asthma persistence: intermittent Asthma complication type: uncomplicated Qualified Code(s): J45.20 - Mild intermittent asthma, uncomplicated (7) Diabetes type 2, controlled Code(s): E11.9 - TYPE 2 DIABETES MELLITUS WITHOUT COMPLICATIONS
[2018-02-16] MEDS ORDERED: PT OWN MED DRAWER 7, Y5N ONE ×4 (14:14→23:46)
[2018-02-16] MEDS: BANATROL PLUS POWDER PACKET PO SCH ×2 (14:44→21:26)
--- NOTE | 2018-02-16 15:03 | PN ---
Progress Note, Physician History of Present Illness: seen and examined today in nad. feeling better. no overnight events. no new complaints. - Current Medication List Current Medications: Active Medications Acetylcysteine (Mucomyst 20 Oral / Inh Use Only*) 400 mg NEB RBID [facility] Last Admin: 02/16/18 07:55 Dose: Not Given Albuterol Sulfate (Ventolin 0.083% Nebulizer Soln -) 1 amp NEB RQ4H [facility] Last Admin: 02/16/18 11:34 Dose: Not Given Apixaban (Eliquis -) 5 mg PO BID [facility] Last Admin: 02/16/18 10:39 Dose: 5 mg Aspirin (Ecotrin -) 81 mg PO DAILY [facility] Last Admin: 02/16/18 10:39 Dose: 81 mg Atorvastatin Calcium (Lipitor -) 20 mg PO HS [facility] Last Admin: 02/15/18 22:30 Dose: 20 mg Budesonide/Formoterol Fumarate (Symbicort 160/4.5mcg -) 2 puff IH BID [facility] Last Admin: 02/16/18 10:54 Dose: Not Given Clonidine (Catapres -) 0.1 mg PO BID [facility] Last Admin: 02/16/18 10:40 Dose: 0.1 mg Diltiazem HCl (Cardizem Cd -) 240 mg PO DAILY [facility] Last Admin: 02/16/18 10:40 Dose: 240 mg Docusate Sodium (Colace -) 300 mg PO HS PRN PRN Reason: CONSTIPATION Docusate Sodium (Colace -) 100 mg PO BID PRN PRN Reason: CONSTIPATION Duloxetine HCl (Cymbalta -) 60 mg PO DAILY [facility] Last Admin: 02/16/18 10:40 Dose: 60 mg Eucalyptus/Menthol/Phenol/Sorbitol (Cepastat Lozenge -) 1 each MM Q4H PRN PRN Reason: SORE THROAT Furosemide (Lasix -) 40 mg PO DAILY [facility] Last Admin: 02/16/18 10:40 Dose: 40 mg Gabapentin (Neurontin -) 300 mg PO Q8H PRN PRN Reason: PAIN Last Admin: 02/16/18 10:39 Dose: 300 mg Guaifenesin (Diabetic Tussin Dm -) 10 ml PO Q4H PRN PRN Reason: COUGH Hydralazine HCl (Apresoline -) 25 mg PO BID [facility] Last Admin: 02/16/18 10:39 Dose: 25 mg Metronidazole (Flagyl 500mg Premixed Ivpb -) 500 mg in 100 mls @ 100 mls/hr IVPB Q8H-IV [facility] Last Admin: 02/16/18 10:48 Dose: 100 mls/hr Insulin Aspart (Novolog Vial Sliding Scale -) 1 vial SQ ACHS [facility]; Protocol Last Admin: 02/16/18 12:28 Dose: 3 units Insulin Aspart (Novolog Mix 70/30 Vial) 15 units SQ BIDAC [facility] Last Admin: 02/16/18 06:47 Dose: 15 units Insulin Detemir (Levemir Vial) 40 units SQ BID@0700,2200 [facility] Last Admin: 02/16/18 06:46 Dose: 40 units Lactobacillus Acidophilus (Bacid -) 1 tab PO DAILY [facility] Last Admin: 02/16/18 10:39 Dose: 1 tab Levetiracetam (Keppra -) 1,000 mg PO BID [facility] Last Admin: 02/16/18 10:39 Dose: 1,000 mg Lisinopril (Prinivil) 5 mg PO DAILY [facility] Last Admin: 02/16/18 10:39 Dose: 5 mg Nicotine (Nicoderm Patch -) 21 mg TD DAILY [facility] Last Admin: 02/16/18 10:39 Dose: 21 mg Ondansetron HCl (Zofran Odt -) 8 mg SL Q6H PRN PRN Reason: NAUSEA AND/OR VOMITING Oxycodone HCl (Roxicodone -) 10 mg PO Q6H PRN PRN Reason: PAIN LEVEL 7 - 10 Last Admin: 02/16/18 10:44 Dose: 10 mg Pantoprazole Sodium (Protonix -) 40 mg PO BID [facility] Last Admin: 02/16/18 10:40 Dose: 40 mg Phenazopyridine HCl (Pyridium -) 100 mg PO Q8H PRN PRN Reason: dysuria Potassium Chloride (K-Dur -) 20 meq PO DAILY [facility] Last Admin: 02/16/18 10:39 Dose: 20 meq Prednisone (Deltasone -) 20 mg PO DAILY [facility] Last Admin: 02/16/18 10:40 Dose: 20 mg Senna (Senna -) 2 tab PO HS PRN PRN Reason: CONSTIPATION Trazodone HCl (Desyrel -) 100 mg PO HS [facility] Vancomycin HCl (Vancomycin Oral Solution) 500 mg PO Q6HPO [facility] Last Admin: 02/16/18 12:31 Dose: 500 mg - Objective Vital Signs: Vital Signs Temperature 99.2 F 02/16/18 10:00 Pulse Rate 88 02/16/18 10:00 Respiratory Rate 18 02/16/18 10:00 Blood Pressure 135/62 02/16/18 10:00 O2 Sat by Pulse Oximetry (%) 95 02/16/18 10:00 Constitutional: Yes: No Distress, Calm Eyes: Yes: Conjunctiva Clear, EOM Intact, PERRL HENT: Yes: Atraumatic, Normocephalic Neck: Yes: Supple, Trachea Midline Cardiovascular: Yes: Regular Rate and Rhythm, S1, S2. No: Bradycardia, Tachycardia, Pulse Irregular, Bruit, JVD, Gallop, Murmur, Rub, S3, S4, Varicosities Respiratory: Yes: Regular, Diminished. No: Rales, Rhonchi, Wheezes Gastrointestinal: No: Distention, Tenderness Edema: No Peripheral Pulses WNL: Yes Peripheral Pulses: Left Doralis Pedis: 2+, Right Dorsalis Pedis: 2+ Neurological: Yes: Alert, Oriented Psychiatric: Yes: Alert, Oriented Labs: CBC, BMP 02/16/18 05:50 02/16/18 05:50 INR, PTT INR 0.87 (0.83-1.09) 02/03/18 17:25 - ....Imaging Chest X-ray: Report Reviewed, Image Reviewed EKG: Report Reviewed, Image Reviewed Other: Report Reviewed, Image Reviewed (tele-NSR, no further pafib or psvt) Assessment/Plan 57 year old woman with a PMHx of HTN, NIDDM, hyperlipidemia, CAD s/p stent in the past, diastolic CHF, COPD admitted with difficulty breathing and cough. Being treated for COPD exacerbation. No CHF. Echo normal EF. had episode of AF with RVR 02/12/18.. Given IV metoprolol, IV dilt, then her PO dilt. converted back to NSR. Echocardiogram 02/07/2018: Normal LV size, wall motion and systolic function, LVEF = 60-65%. Normal RV. Mild LA dilatation. Mild MR. Mild to moderate TR. 1) Chronic diastolic CHF with SOB and cough. Her symptoms are likely related to copd exacerbation. Being treated as per pulmonary. -euvolemic currently -cont Lasix PO 40 mg daily -caution to avoid dehydration in setting of diarrhea 2) CAD s/p stent No recurrent chest pain. cont statin. 3) HTN: better controlled. -cont current meds for now -can change IV enalapril to po STEWART-I/ARB 4) PAF: CHADS2-VASC is 3 (sex, htn, dm) -remains in nsr for several days -cont Eliquis 5 mg bid. -cont dilt 240mgqd -check TFT's No additional inpatient cardiac work up needed at this time. Acceptable to dc tele. Please call with any additional questions.
[2018-02-16] MEDS ORDERED: INSULIN (NOVOLOG) ASPART 100 UNITS/ML 10ML VIAL ONE ×2 (16:45→21:14)
[2018-02-16] MEDS ORDERED: traZODone HCL 50 MG TABLET (FP) ONE (21:12)
[2018-02-16] MEDS: ATORVASTATIN CA 20 MG TABLET (FP) PO SCH (21:26)
[2018-02-16] MEDS ORDERED: traZODone HCL 100 MG TABLET (FP) PO SCH (22:00)
[2018-02-17] MEDS: BANATROL PLUS POWDER PACKET PO SCH (05:47)
[2018-02-17] MEDS: VANCOMYCIN 250 MG/5 ML ORAL SOLUTION PO SCH (05:53)
[2018-02-17 06:55] LABS: BASO % 0.3 % (0-2.0); EOS % 1.5 % (0-4.5); HEMATOCRIT 39.2 % (32.4-45.2); HEMOGLOBIN 12.7 GM/dL (10.7-15.3); LYMPH % 21.8 % (8-40); MCH 29.3 pg (25.7-33.7); MCHC 32.5 g/dl (32.0-36.0); MEAN CELL VOLUME 90.2 fl (80-96); MONO % 7.3 % (3.8-10.2); NEUT % 69.1 % (42.8-82.8); PLATELET COUNT 246 K/MM3 (134-434); RBC 4.34 M/mm3 (3.60-5.2); WHITE BLOOD COUNT 19.2 K/mm3 (4.0-10.0)
[2018-02-17] MEDS: INSULIN SLIDING SCALE (NOVOLOG) 1 VIAL SQ SCH (06:56)
[2018-02-17] MEDS: INSULIN (LEVEMIR) 100 UNITS/ML UNITS SQ SCH (06:58)
[2018-02-17] MEDS: INSULIN (NOVOLOG MIX 70/30) 100 UNITS/ML MDV SQ SCH (06:58)
[2018-02-17] MEDS: oxyCODONE HCL 5 MG TABLET PO PRN (07:02)
[2018-02-17] MEDS ORDERED: INSULIN (NOVOLOG) ASPART 100 UNITS/ML 10ML VIAL ONE (07:09)
[2018-02-17] MEDS ORDERED: INSULIN (NOVOLOG MIX 70/30) 100 UNITS/ML MDV SQ ONE (07:09)
[2018-02-17 07:19] LABS: ALK PHOS 99 U/L (45-117); ANION GAP 7 MMOL/L (8-16); BILIRUBIN,TOTAL 0.3 mg/dL (0.2-1); BLOOD UREA NITROGEN 25 mg/dL (7-18); CALCIUM 7.8 mg/dL (8.5-10.1); CHLORIDE 97 mmol/L (98-107); CO2 31 mmol/L (21-32); CREATININE 0.7 mg/dL (0.55-1.3); GLUCOSE,RANDOM 248 mg/dL (74-106); POTASSIUM 3.8 mmol/L (3.5-5.1); SGOT/AST 18 U/L (15-37); SGPT/ALT 33 U/L (13-61); SODIUM 134 mmol/L (136-145)
[2018-02-17] MEDS: ACETYLCYSTEINE 20% 200MG/ML 4 ML VIAL *FOR ORAL / INH USE ONLY NEB SCH (07:33)
[2018-02-17] MEDS: ALBUTEROL SO4 0.083% IH SOL 2.5 MG/3 ML VIAL.NEB. NEB SCH ×2 (07:33→12:08)
[2018-02-17] MEDS ORDERED: PT OWN MED DRAWER 7, Y5N ONE (10:16)
[2018-02-17] MEDS: POTASSIUM CHLORIDE TABS 20 MEQ TABLET.ER (FP) PO SCH (10:23)
[2018-02-17] MEDS: levETIRAcetam 500 MG TABLET (FP) PO SCH (10:24)
[2018-02-17] MEDS: ASPIRIN COATED 81 MG TABLET.EC PO SCH (10:24)
[2018-02-17] MEDS: APIXABAN 5 MG TABLET PO SCH (10:24)
[2018-02-17] MEDS: FUROSEMIDE 40 MG TABLET (FP) PO SCH (10:24)
[2018-02-17] MEDS: hydrALAZINE HCL 25 MG TABLET (FP) PO SCH (10:24)
[2018-02-17] MEDS: LISINOPRIL 5 MG TABLET (FP) PO SCH (10:24)
[2018-02-17] MEDS: cloNIDine HCL 0.1 MG TABLET PO SCH (10:24)
[2018-02-17] MEDS: predniSONE 20 MG TABLET (UD) PO SCH (10:24)
[2018-02-17] MEDS: PANTOPRAZOLE 40 MG TABLET (FP) PO SCH (10:24)
[2018-02-17] MEDS: DULoxetine HCL 30 MG CAPSULE.DR (FP) PO SCH (10:24)
[2018-02-17] MEDS: LACTOBACILLUS ACIDOPHILUS 1 TABLET PO SCH (10:25)
[2018-02-17] MEDS: NICOTINE 21 MG/24 HOURS TOPICAL PATCH TD SCH (10:25)
[2018-02-17] MEDS: BUDESONIDE/FORMETEROL FUMARATE 160/4.5 mcg INHALER IH SCH (10:26)
--- NOTE | 2018-02-17 11:00 | PN ---
Progress Note (short form) - Note Progress Note: 57year old female history of CAD, HTN, CHF, HLD, COPD, BIPOLAR Disorder , was admitted for sob and productive cough, fever and exacerbation of COPD While on floor she has given oxycodone and she became unreponsive. There is no tonic clonic activity. Patient has improved back to her baseline and she had ct scan is normal. She has refused ct head Patient has episode when she would twitch in her hand and eye, and she would be screaming , make my pain go away. She keep insisting , if Her eeg did not show any seizure activity . She seems to bright today, no new complaining. psych consult appreciated Neurological Examination Alert oriented x follow command, eomi, pupils reactive, no face asymemtry moving all extremity sensation is normal ct head is normal mri of brain refused EEG no seizure activity Assessment- Recurrent episode of twitching and crying at the same time, atypical features , clinically Unlikley to be epileptic seizure. mri of brain she refused. 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 I would taper to d/c as outpatient in next four weeks -Psych consult appreciated - continue keppra for now , eeg did not show any epileptiform discharges and there were multiple muslce artifacts limiting interpretation. THnkaing you so much Tio Cerrato MD
--- NOTE | 2018-02-17 11:16 | DS ---
Physical Examination Vital Signs: Vital Signs Temperature 98.2 F 02/17/18 05:56 Pulse Rate 74 02/17/18 05:56 Respiratory Rate 16 02/17/18 05:56 Blood Pressure 128/73 02/17/18 05:56 O2 Sat by Pulse Oximetry (%) 95 02/16/18 21:00 Findings/Remarks: AWAKE ALERT LESS DEPRESSED TODAY/FEELS BETTER Constitutional: Yes: No Distress Eyes: Yes: WNL HENT: Yes: WNL Neck: Yes: WNL Cardiovascular: Yes: WNL Respiratory: Yes: WNL Gastrointestinal: Yes: WNL Renal/: Yes: WNL Musculoskeletal: Yes: Muscle Pain Extremities: Yes: WNL Edema: Yes Edema: LLE: Trace, RLE: Trace Peripheral Pulses WNL: Yes Integumentary: Yes: WNL Wound/Incision: Yes: Clean/Dry Neurological: Yes: Pre-Existing Deficit ...Motor Strength: LLE, RLE Psychiatric: Yes: Other Labs: CBC, BMP 02/17/18 06:00 02/17/18 06:00 Discharge Summary Reason For Visit: COPD Current Active Problems Afib (Acute) Congestive heart failure (Acute) Diabetes mellitus with hyperosmolarity (Acute) Heroin abuse (Acute) Hypokalemia (Acute) Paroxysmal A-fib (Acute) Procedures: Principal: CT SCANS Hospital Course: ADMITTED WITH URI/SEPSIS/ABD PAIN TREATED WITH PO VANCOMYCIN FOR COLITIS CDIFF LIKELY. WILL NEED TO COMPLETE ABX OUTPATIENT Condition: Fair - Instructions Diet, Activity, Other Instructions: PATIENT HAS CHOSEN [facility] THE PRIMARY CARE OFFICE. 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 I WILL HAVE HER RECORDS FROM MY OFFICE SENT TO [facility] AT HER REQUEST. COMPLETE VANCOMYCIN PO FOR 10 DAYS LOW FAT/LOW FIBER/LACTOSE FREE DIET ANY NEEDS OR QUESTIONS FEEL FREE TO CALL MY OFFICE ANYTIME Referrals: Rc Pineda MD [Primary Care Provider] - Disposition: [facility]/HOME HEALTH CARE - Home Medications Comprehensive Discharge Medication List: Ambulatory Orders Tiotropium [place] [Spiriva] 18 mcg IH DAILY 12/21/14 Ascorbic Acid [Vitamin C -] 500 mg PO BID #60 tablet 02/15/17 Salmeterol/Fluticasone [Advair 100Mcg/50Mcg -] 1 puff IH BID #1 inhaler metFORMIN HCL [Glucophage -] 500 mg PO BID@0700,1630 #60 tablet 02/15/17 Aspirin Coated [Ecotrin -] 81 mg PO DAILY #30 tablet.ec 06/03/17 Diltiazem Cd [Cardizem Cd -] 120 mg PO DAILY #30 cap.cd.24h 06/03/17 Duloxetine HCl [Cymbalta -] 60 mg PO DAILY #30 capsule.dr 06/03/17 Lisinopril [Prinivil] 20 mg PO DAILY #30 tablet 06/03/17 cloNIDine HCL [Catapres -] 0.1 mg PO BID #60 tablet 06/03/17 levETIRAcetam [Keppra -] 1,000 mg PO BID #60 tablet 06/03/17 Albuterol 0.083% Nebulizer Kathleen [Ventolin 0.083% Nebulizer Soln -] 1 neb NEB Q4H PRN #20 vial 12/20/17 Albuterol Sulfate Inhaler - [Ventolin Hfa Inhaler -] 1 - 2 inh PO Q4H PRN #1 inhaler 12/20/17 Docusate Sodium [Colace -] 300 mg PO HS PRN 12/20/17 Gabapentin [Neurontin -] 300 mg PO TID PRN 12/20/17 Sennosides [Senna -] 2 tab PO HS PRN 12/20/17 Insulin Glargine,Hum.rec.anlog [Lantus] 35 unit SQ BID 12/22/17 hydrALAZINE HCL [Apresoline -] 25 mg PO BID 12/22/17 oxyCODONE HCL [Roxicodone -] 5 mg PO Q6H PRN #14 tablet MDD 4 12/24/17 Azithromycin 250 mg PO DAILY #6 tablet 01/25/18 Prednisone [Deltasone] 40 mg PO BID #8 tablet 01/25/18 Cephalexin [Keflex] 500 mg PO BID #14 capsule 01/30/18
[2018-02-17 12:37] VITALS: BP 110/66; PULSE 82; TEMP 98.3
== END 2018-02-17 13:24 | disposition home health service (06) | DRG 140 ==
LOC: JER 16:43 → SUPCPDRO 16:43 → JERBED 19:11 → UNDOADMOB 20:30 → JERBED 20:30 → J6S 02-04 16:02 → OBSVTOIN 02-06 10:17 → J6S 02-07 16:57 → J2W 02-11 10:31 → J4S 02-11 22:20
PROVIDERS: ADMIT Internal Medicine; ATTEND Family Medicine
DX: J44.1 Chronic obstructive pulmonary disease with (acute) exacerbation (principal); A04.72 Enterocolitis due to Clostridium difficile, not specified as recurrent; I27.20 Pulmonary hypertension, unspecified; I11.0 Hypertensive heart disease with heart failure; I50.32 Chronic diastolic (congestive) heart failure; K74.60 Unspecified cirrhosis of liver; E88.81 Metabolic syndrome and other insulin resistance; Z99.81 Dependence on supplemental oxygen; E66.01 Morbid (severe) obesity due to excess calories; E11.65 Type 2 diabetes mellitus with hyperglycemia; N39.0 Urinary tract infection, site not specified; E87.1 Hypo-osmolality and hyponatremia; F11.10 Opioid abuse, uncomplicated; R41.82 Altered mental status, unspecified; T40.2X5A Adverse effect of other opioids, initial encounter; I34.0 Nonrheumatic mitral (valve) insufficiency; I25.10 Atherosclerotic heart disease of native coronary artery without angina pectoris; Z95.5 Presence of coronary angioplasty implant and graft; Z79.84 Long term (current) use of oral hypoglycemic drugs; Z79.4 Long term (current) use of insulin; E78.5 Hyperlipidemia, unspecified; B19.20 Unspecified viral hepatitis C without hepatic coma; F17.210 Nicotine dependence, cigarettes, uncomplicated; G47.33 Obstructive sleep apnea (adult) (pediatric); Z68.39 Body mass index [BMI] 39.0-39.9, adult; R09.02 Hypoxemia; R06.89 Other abnormalities of breathing; Z91.19 Patient's noncompliance with other medical treatment and regimen; G89.29 Other chronic pain; M54.5 Low back pain; F31.81 Bipolar II disorder; F41.9 Anxiety disorder, unspecified; E87.6 Hypokalemia; R25.3 Fasciculation
CPT/HCPCS: 36415; 36600; 70450-TC; 71045-TC-FY; 71046-TC-FY; 71275-TC; 74018-TC-FY; 74177-TC; 76775-TC; 80048; 80053; 80061; 81003; 81015; 82105; 82150; 82550; 82803; 82947; 82962; 83036; 83605; 83615; 83721; 83735; 83880; 84100; 84484; 85025; 85610; 86140; 86704; 86706; 86708; 87040; 87045; 87046; 87070; 87077; 87081; 87086; 87186; 87205; 87324; 87340; 87449; 87522; 87804; 93005; 93010; 93306-TC; 93970-TC; 94640; 95816; 97116-GP; 97161-GP; 99285-25; G0378; J0131; J0735; J1644; J3480; J7030

== ENCOUNTER 2019-11-29 10:41 | Inpatient (IN) | payer OTHER ==
[2019-11-29] MEDS ORDERED: SODIUM CHLORIDE 0.9% 1000 ML INFUS.BAG IV ONE (11:25)
[2019-11-29] MEDS ORDERED: ONDANSETRON 4 MG/2 ML VIAL IVPUSH ONE (11:26)
[2019-11-29] MEDS ORDERED: MECLIZINE HCL 25 MG TABLET (FP) PO ONE (11:26)
[2019-11-29] MEDS ORDERED: MECLIZINE HCL 25 MG TABLET (FP) ONE (11:36)
--- NOTE | 2019-11-29 11:51 | PDOC ---
Documentation entered by Kristy Douglas SCRIBE, acting as scribe for Magalys Fagan MD. Magalys Fagan MD: This documentation has been prepared by the pipeeMisael Ana, SCRIBE, under my direction and personally reviewed by me in its entirety. I confirm that the documentation accurately reflects all work, treatment, procedures, and medical decision making performed by me. History of Present Illness - General Chief Complaint: Nausea/Vomiting Stated Complaint: ABD/CHEST PAIN History Source: Patient Exam Limitations: No Limitations - History of Present Illness Initial Comments: 11/29/19 11:02 59 yo F pmhx Covid 19 (August 2019), diabetes, congestive heart failure, hypertension, hyperlipidemia, COPD, coronary artery disease (s/p stenting), polysubstance abuse (history of cocaine, cannabis, xanax abuse), smoking, depression, hepatitis c, seizures who presents to the ED with pain, lightheadedness, nausea, and vomiting x2 days. Patient stated she took her temperature and had a 101.0 fever x2 days. Patient describes her chest pain as a "tightness" that comes and goes which gets worse when she "tries to roll over" x1 day. Patient also reports a change in urinary frequency, denies dysuria, Patient disclosed that she has not taken any of her bp or DM medications today d ue to nausea./ vomiting. does have a mild cough, nonproductive. she also c/o vertigo describes room spinning, does feel off balance, spinning worse with movement and turning. has had vertigo for 2 days. no focal weakness, does have generalized malaise. pcp 81 s veto Allergies: NKDA 11/29/19 11:42 Past History - Medical History Allergies/Adverse Reactions: Allergies Allergy/AdvReac Type Severity Reaction Status Date / Time No Known Allergies Allergy Verified 11/29/19 10:53 Home Medications: Ambulatory Orders Aspirin [ASA -] 162 mg PO DAILY 08/19/18 Cyclobenzaprine HCl 10 mg PO BID 08/19/18 Diltiazem Cd [Cardizem Cd -] 120 mg PO DAILY 08/19/18 Divalproex Sodium [Depakote ER] 500 mg PO BID 08/19/18 Folic Acid/Multivit-Min/Lutein [Multi-Vitamin Gummies] 1 each PO DAILY 08/19/18 Furosemide [Lasix -] 20 mg PO DAILY 08/19/18 Gabapentin 200 mg PO TID 08/19/18 Insulin Glargine,Hum.rec.anlog [Basaglar Kwikpen U-100] 20 unit SQ DAILY 08/19/18 Lipase/Protease/Amylase [Alexi Dr 36,000 Units Capsule] 1 each PO TID 08/19/18 Metformin HCl [Glucophage] 500 mg PO BID 08/19/18 Pantoprazole Sodium 40 mg PO DAILY 08/19/18 Potassium Chloride 20 meq PO DAILY 08/19/18 Quetiapine Fumarate [Seroquel -] 25 mg PO BID 08/19/18 Simvastatin [Zocor -] 10 mg PO HS 08/19/18 traZODone HCL [Trazodone HCl] 100 mg PO HS 08/19/18 Apixaban [Eliquis] 2.5 mg PO BID #28 tablet 08/27/19 Prednisone [Prednisone 50 MG TABLETS] 50 mg PO DAILY #5 tablet 08/27/19 Methadone [Dolophine -] 80 mg PO DAILY 11/29/19 Anemia: No Asthma: Yes Cancer: No Cardiac Disorders: Yes (Stent X 1) CVA: No COPD: Yes CHF: Yes DVT: No Dementia: No Diabetes: Yes GI Disorders: No Disorders: No HTN: Yes Hypercholesterolemia: Yes Kidney Stones: No Liver Disease: Yes (Cirrhosis, Hepatitis C) Psychiatric Problems: Yes (bipolar) Seizures: Yes (Last episode 03/2013) Thyroid Disease: Yes - Surgical History Abdominal Surgery: No Appendectomy: Yes (age 11) Cardiac Surgery: Yes (Stent X 1) Cholecystectomy: Yes Lung Surgery: No Neurologic Surgery: No Orthopedic Surgery: Yes (Lower back 02/2013) - Reproductive History PID: No - Immunization History Td Vaccination: Yes Immunization Up to Date: Yes - Psycho-Social/Smoking History Smoking Status: Yes Smoking History: Current every day smoker Have you smoked in the past 12 months: Yes Number of Cigarettes Smoked Daily: 20 'Breaking Loose' booklet given: 01/25/18 Review of Systems - Review of Systems Able to Perform ROS?: Yes Constitutional: Yes: Chills, Fever Respiratory: Yes: Cough, Productive cough. No: Shortness of Breath Cardiac (ROS): Yes: Chest Pain, Edema ABD/GI: Yes: Nausea, Vomiting. No: Diarrhea : Yes: Frequency. No: Dysuria Musculoskeletal: No: Back Pain, Joint Pain Integumentary: No: Bruising, Change in Color, Erythema Neurological: Yes: Unsteady Gait, Other (vertigo). No: Headache, Numbness, Weakness Psychiatric: Yes: Depression All Other Systems: Reviewed and Negative *Physical Exam - Physical Exam 11/29/19 11:48 Patient is awake alert no acute distress lungs are with bilateral crackles at the bases faint wheezing heard at the base normal effort heart rate is with mild tachycardia no murmurs rubs or gallops abdomen is soft nontender obese ext remities show mild nonpitting edema to bilateral lower extremities otherwise warm well perfused patient has 2+ DP PT pulses which are symmetric neurologically she is awake alert and oriented x3 has 5 out of 5 symmetric strength her [id number] does not demonstrate dysmetria bilaterally she does have horizontal nystagmus with head movement ED Treatment Course - LABORATORY CBC & Chemistry Diagram: 11/29/19 11:30 11/29/19 11:30 Medical Decision Making - Medical Decision Making 11/29/19 11:49 59-year-old female history of COPD CHF hypertension hyperlipidemia diabetes rec ent COVID in August and polysubstance abuse here today with nausea vomiting subjective fevers chills urinary symptoms and a cough and chest pain described as a tightness. In addition she does have vertigo differential diagnosis includes positional vertigo versus CVA as the patient does have a lot of risk factors. Plan CT head other differential includes infection such as pneumonia or UTI plan CBC CMP troponin EKG CT head chest x-ray UA and urine culture patient will be treated for her symptomatic vertigo with IV fluids Zofran and meclizine will likely require admission due to her complaint of chest pain rule out ACS 11/29/19 15:47 pt with cxr no infiltrate, chronic mediastinal changes, no change from prior. labs unremarkablel except elevated wbc. ua pending. pt wiht persistant vertigo despite meclizine. will trial po valium. given home dose methadone 80 mg confirmed with [place] [facility]. ct head blanca chronic lacunar infarct. pt high risk, will admit for mri r/o cerebellar infarct. depakote level added . d/w dr hahn for admission to telemetry. will accept admission. pt given nitro. nitro past for hypertension. Discharge - Discharge Information Problems reviewed: Yes Clinical Impression/Diagnosis: Vertigo, Chest pain - Admission Yes - Follow up/Referral Referrals: Ana Archer [Primary Care Provider] - - Patient Discharge Instructions - Post Discharge Activity
[2019-11-29 12:28] LABS: BASO % 0.9 % (0-2.0); HEMATOCRIT 44.4 % (32.4-45.2); HEMOGLOBIN 14.7 GM/dL (10.7-15.3); LYMPH % 9.7 % (8-40); MCH 28.4 pg (25.7-33.7); MCHC 33.2 g/dl (32.0-36.0); MEAN CELL VOLUME 85.6 fl (80-96); MEAN PLT VOLUME 8.7 fl (7.5-11.1); NEUT % 86.4 % (42.8-82.8); PLATELET COUNT 392 K/MM3 (134-434); RBC 5.19 M/mm3 (3.60-5.2); WHITE BLOOD COUNT 13.1 K/mm3 (4.0-10.0)
[2019-11-29 12:32] LABS: INR 1.05 (0.83-1.09); PROTHROMBIN TIME (PATIENT) 12.4 SEC (9.7-13.0)
[2019-11-29 12:34] LABS: ACTIVATED PTT 32.1 SECONDS (25.2-36.5)
[2019-11-29 13:24] LABS: ALBUMIN 2.8 g/dl (3.4-5.0); ALK PHOS 103 U/L (45-117); ANION GAP 11 MMOL/L (8-16); BILIRUBIN,TOTAL 0.6 mg/dL (0.2-1); BLOOD UREA NITROGEN 10.6 mg/dL (7-18); CALCIUM 9.3 mg/dL (8.5-10.1); CHLORIDE 92 mmol/L (98-107); CO2 31 mmol/L (21-32); CREATININE 0.7 mg/dL (0.55-1.3); GLUCOSE,RANDOM 259 mg/dL (74-106); LIPASE 95 U/L (73-393); POTASSIUM 3.8 mmol/L (3.5-5.1); SGOT/AST 35 U/L (15-37); SGPT/ALT 35 U/L (13-61); SODIUM 134 mmol/L (136-145); TOT PROT 8.1 g/dl (6.4-8.2)
[2019-11-29] MEDS ORDERED: METHADONE HCL 10 MG TABLET (FOR DETOX USE ONLY) PO ONE (15:42)
[2019-11-29] MEDS ORDERED: NITROGLYCERIN 2% OINTMENT - 1GM PACKET TD ONE ×2 (15:43→16:06)
[2019-11-29] MEDS ORDERED: NITROGLYCERIN SUBLINGUAL 1/150 0.4 MG TAB SL ONE (15:43)
[2019-11-29] MEDS ORDERED: diazePAM 5 MG TABLET PO ONE (15:50)
[2019-11-29] MEDS ORDERED: METHADONE HCL 40 MG DISPERSABLE TABLET ONE (16:05)
[2019-11-29] MEDS ORDERED: diazePAM 5 MG TABLET ONE (16:07)
[2019-11-29] MEDS ORDERED: NITROGLYCERIN SUBLINGUAL 1/150 0.4 MG TAB ONE (16:07)
[2019-11-29 16:40] LABS: EPI CELLS 32 /uL (0-25.1); HYALINE CASTS 1 /uL (0-3.1); URINE APPEARANCE CLEAR; URINE BACTERIA 217 /uL (0-1359); URINE BILIRUBIN NEGATIVE (NEGATIVE); URINE COLOR YELLOW; URINE GLUCOSE (UA) 1+ (NEGATIVE); URINE KETONE TRACE (NEGATIVE); URINE LEUK ESTERASE NEGATIVE (NEGATIVE); URINE NITRITE NEGATIVE (NEGATIVE); URINE PROTEIN 4+ (NEGATIVE); URINE WBC 9 /uL (0-25.8)
[2019-11-29 17:31] LABS: URINE RBC 80.6 /uL (0-23.9); YEAST NEGATIVE (NEGATIVE)
[2019-11-29 18:31] VITALS: BMI 42.7
[2019-11-29] MEDS ORDERED: cefTRIAXone SODIUM 1 GM VIAL ONE (18:46)
[2019-11-29] MEDS ORDERED: DEXTROSE 5%-WATER - 50 ML IVPB ONE (18:46)
[2019-11-29] MEDS: CEFTRIAXONE 1 GM in DEXTROSE 5%-WATER - 50 ML IVPB SCH (18:50)
[2019-11-29] MEDS ORDERED: PROCHLORPERAZINE INJECTION 10 MG/2 ML VIAL IVPB ONE (19:41)
[2019-11-29] MEDS ORDERED: METOCLOPRAMIDE HCL INJECTION 10 MG/2 ML VIAL IVPUSH ONE (21:38)
--- NOTE | 2019-11-29 21:40 | HP ---
Admitting History and Physical - Primary Care Physician PCP: Maria C Medina - Admission Chief Complaint: Weakness, Headache History of Present Illness: This is a 59 y/o female with a PMHx of HTN, HLD, CAD s/p Stent, CHF, Diabetes Mellitus, COVID 19 + (August 2019), COPD, Polysubstance Abuse (Cocaine, Cannabis, Xanax), Tobacco Dependency, Seizure Disorder, Depression, Hepatitis C. Who presents to the ED with intermittent chest tightness worse with movement, lightheadedness, N/V x 2 days. Patient reports subjective fever 101.0 with a non-productive cough, vertigo symptoms x 2 days. 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 pt thinks she may have had one in the past (L facial droop)), Seizure Cardiovascular: Yes: CAD (with stents), HTN, Hyperlipdemia, Murmur (tricuspic insufficiency) Pulmonary: Yes: Asthma, COPD Gastrointestinal: Yes: Gastritis, Other ("colitis" mid-April) Hepatobiliary: Yes: Hepatitis C Infectious Disease: Yes: MRSA (R thigh abscess 02/26) Psych: Yes: Addictions, Anxiety, Bipolar, Depression Musculoskeletal: Yes: Chronic low back pain Endocrine: Yes: Diabetes Mellitus - Past Surgical History Past Surgical History: Yes: Appendectomy, Cholecystectomy (laparoscopic), Colonoscopy, Hysterectomy (vaginal), Tonsillectomy, Upper Endoscopy - Smoking History Smoking history: Current every day smoker Have you smoked in the past 12 months: Yes Aproximately how many cigarettes per day: 20 - Alcohol/Substance Use Hx Alcohol Use: No History of Substance Use: reports: Cocaine (crack), Heroin (snorted cocaine and heroin, denies IVDA) - Social History Usual Living Arrangement: Yes: With Child ADL: Family Assistance Occupation: disabled History of Recent Travel: No Home Medications - Allergies Allergies/Adverse Reactions: Allergies Allergy/AdvReac Type Severity Reaction Status Date / Time No Known Allergies Allergy Verified 11/29/19 10:53 - Home Medications Home Medications: Ambulatory Orders Aspirin [ASA -] 162 mg PO DAILY 08/19/18 Cyclobenzaprine HCl 10 mg PO BID 08/19/18 Diltiazem Cd [Cardizem Cd -] 120 mg PO DAILY 08/19/18 Divalproex Sodium [Depakote ER] 500 mg PO BID 08/19/18 Folic Acid/Multivit-Min/Lutein [Multi-Vitamin Gummies] 1 each PO DAILY 08/19/18 Furosemide [Lasix -] 20 mg PO DAILY 08/19/18 Gabapentin 200 mg PO TID 08/19/18 Insulin Glargine,Hum.rec.anlog [Basaglar Kwikpen U-100] 20 unit SQ DAILY 08/19/18 Lipase/Protease/Amylase [Creon Dr 36,000 Units Capsule] 1 each PO TID 08/19/18 Metformin HCl [Glucophage] 500 mg PO BID 08/19/18 Pantoprazole Sodium 40 mg PO DAILY 08/19/18 Potassium Chloride 20 meq PO DAILY 08/19/18 Quetiapine Fumarate [Seroquel -] 25 mg PO BID 08/19/18 Simvastatin [Zocor -] 10 mg PO HS 08/19/18 traZODone HCL [Trazodone HCl] 100 mg PO HS 08/19/18 Apixaban [Eliquis] 2.5 mg PO BID #28 tablet 08/27/19 Prednisone [Prednisone 50 MG TABLETS] 50 mg PO DAILY #5 tablet 08/27/19 Methadone [Dolophine -] 80 mg PO DAILY 11/29/19 Family Medical History Family History: As Documented Family Hx Coronary Artery Disease: Sister, Brother Review of Systems - Review of Systems Constitutional: reports: Weakness Eyes: reports: No Symptoms HENT: reports: No Symptoms Neck: reports: No Symptoms Cardiovascular: reports: No Symptoms Respiratory: reports: No Symptoms Gastrointestinal: reports: Abdominal Pain Genitourinary: reports: No Symptoms Breasts: reports: No Symptoms Reported Musculoskeletal: reports: No Symptoms Integumentary: reports: No Symptoms Neurological: reports: Headache, Weakness Endocrine: reports: No Symptoms Hematology/Lymphatic: reports: No Symptoms Psychiatric: reports: No Symptoms Pain Intensity: 8 Physical Examination Vital Signs: Vital Signs Temperature 99.0 F 11/29/19 20:01 Pulse Rate 81 11/29/19 20:01 Respiratory Rate 20 11/29/19 20:01 Blood Pressure 171/93 H 11/29/19 20:01 O2 Sat by Pulse Oximetry (%) 95 11/29/19 20:01 Constitutional: Yes: Anxious, Mild Distress, Obese Eyes: Yes: Conjunctiva Clear, EOM Intact, PERRL HENT: Yes: Atraumatic, Normocephalic Neck: Yes: Supple, Trachea Midline Cardiovascular: Yes: Regular Rate and Rhythm, S1, S2 Respiratory: Yes: Diminished, On Nasal O2, SOB on Exertion Gastrointestinal: Yes: Normal Bowel Sounds, Soft, Abdomen, Obese ...Rectal Exam: Yes: Deferred Renal/: Yes: WNL Breast(s): Yes: WNL Musculoskeletal: Yes: WNL Extremities: Yes: WNL Edema: Yes Edema: LLE: 1+, RLE: 1+ Peripheral Pulses WNL: Yes Integumentary: Yes: WNL Neurological: Yes: Alert, Oriented (x2), Pre-Existing Deficit ...Motor Strength: WNL Psychiatric: Yes: Alert, Oriented (x2) Labs: CBC, BMP 11/29/19 11:30 11/29/19 11:30 Imaging - Results Chest X-ray: Report Reviewed, Image Reviewed Cat Scan: Report Reviewed, Image Reviewed MRI: Report Reviewed, Image Reviewed EKG: Image Reviewed Problem List - Problems (1) Syncope Code(s): R55 - SYNCOPE AND COLLAPSE (2) Chest pain Code(s): R07.9 - CHEST PAIN, UNSPECIFIED (3) UTI (urinary tract infection) Code(s): N39.0 - URINARY TRACT INFECTION, SITE NOT SPECIFIED (4) Seizure disorder Code(s): G40.909 - EPILEPSY, UNSP, NOT INTRACTABLE, WITHOUT STATUS EPILEPTICUS (5) ASHD (arteriosclerotic heart disease) Code(s): I25.10 - ATHSCL HEART DISEASE OF [place] CORONARY ARTERY W/O ANG PCTRS (6) Afib Code(s): I48.91 - UNSPECIFIED ATRIAL FIBRILLATION (7) CAD (coronary artery disease) Code(s): I25.10 - ATHSCL HEART DISEASE OF [place] CORONARY ARTERY W/O ANG PCTRS (8) COPD (chronic obstructive pulmonary disease) Code(s): J44.9 - CHRONIC OBSTRUCTIVE PULMONARY DISEASE, UNSPECIFIED (9) Congestive heart failure Code(s): I50.9 - HEART FAILURE, UNSPECIFIED Qualifiers: Heart failure type: unspecified Heart failure chronicity: acute Qualified Code(s): I50.9 - Heart failure, unspecified (10) Type 2 diabetes mellitus with diabetic neuropathy, unspecified Code(s): E11.40 - TYPE 2 DIABETES MELLITUS WITH DIABETIC NEUROPATHY, UNSP (11) Hypertension Code(s): I10 - ESSENTIAL (PRIMARY) HYPERTENSION Qualifiers: Hypertension type: essential hypertension Qualified Code(s): I10 - Essential (primary) hypertension (12) Bipolar II disorder Code(s): F31.81 - BIPOLAR II DISORDER (13) Cocaine abuse Code(s): F14.10 - COCAINE ABUSE, UNCOMPLICATED (14) Heroin abuse Code(s): F11.10 - OPIOID ABUSE, UNCOMPLICATED (15) Opioid dependence Code(s): F11.20 - OPIOID DEPENDENCE, UNCOMPLICATED Qualifiers: Substance use status: in withdrawal Qualified Code(s): F11.23 - Opioid dependence with withdrawal (16) Hepatitis C Code(s): B19.20 - UNSPECIFIED VIRAL HEPATITIS C WITHOUT HEPATIC COMA Qualifiers: Viral hepatitis chronicity: unspecified Hepatic coma status: without hepatic coma Qualified Code(s): B19.20 - Unspecified viral hepatitis C without hepatic coma (17) Nicotine dependence Code(s): F17.200 - NICOTINE DEPENDENCE, UNSPECIFIED, UNCOMPLICATED (18) Encounter for screening laboratory testing for COVID-19 virus Code(s): Z11.59 - ENCOUNTER FOR SCREENING FOR OTHER VIRAL DISEASES Assessment/Plan This is a 59 y/o female with a PMHx of HTN, HLD, CAD s/p Stent, CHF, Diabetes Mellitus, COVID 19 + (August 2019), COPD, Polysubstance Abuse (Cocaine, Cannabis, Xanax), Tobacco Dependency, Seizure Disorder, Depression, Hepatitis C. Admitted to Telemetry for Syncope, UTI for further evaluation of their emergent condition. Plan: Syncope- Likely secondary to arrhythmia va dehydration vs UTI UTI- UA reviewed, urine culture-pending, continue Rocephin, Tylenol prn Continue cardiac monitoring Serial Enzymes Cardiology consult Head CT- mild-mod volume loss, chronic microvascular ischemic disease changes, likely tiny chronic lacunar infarct in the right anterior periventricular white matter along posterior margin of the right caudate head. No gross CT evidence of acute intracranial pathology Brain MRI- no acute infarct is identified Chest Xray image, report reviewed- prominent mediastinum, slight increased central markings EKG-reviewed Neurochecks Fall Precautions Seizure Precautions BGMs ISS Monitor CBC, CMP Continue home meds Continue Methadone- [facility]- verify dose Monitor EKG for QTc prolongation FEN- PO fluids as tolerated, replete lytes prn, Low na, Diabetic Diet DVT ppx- OOB, SCDs, Continue Eliquis Dispo: Requires Inpatient Care Visit type - Emergency Visit Emergency Visit: Yes ED Registration Date: 11/29/19 Care time: The patient presented to the Emergency Department on the above date and was hospitalized for further evaluation of their emergent condition. - New Patient This patient is new to me today: Yes Date on this admission: 11/29/19 - Critical Care Critical Care patient: No
[2019-11-29] MEDS: traZODone HCL 50 MG TABLET (FP) PO SCH (22:26)
[2019-11-29] MEDS: DIVALPROEX NA *ER* EXTEND REL 500 MG TABLET.SA (FP) PO SCH (22:26)
[2019-11-29] MEDS: ATORVASTATIN CA 10 MG TABLET (FP) PO SCH (22:27)
[2019-11-29] MEDS: GABAPENTIN 100 MG CAPSULE PO SCH (22:27)
[2019-11-29] MEDS: APIXABAN 2.5 MG TABLET PO SCH (22:27)
[2019-11-29] MEDS: QUEtiapine FUMARATE 25 MG TABLET PO SCH (22:28)
[2019-11-29] MEDS: INSULIN SLIDING SCALE (NOVOLOG) 1 VIAL SQ SCH (22:38)
[2019-11-30] MEDS: METHADONE HCL 40 MG DISPERSABLE TABLET PO SCH (06:29)
[2019-11-30] MEDS: GABAPENTIN 100 MG CAPSULE PO SCH ×3 (06:30→21:17)
[2019-11-30] MEDS: INSULIN SLIDING SCALE (NOVOLOG) 1 VIAL SQ SCH ×3 (06:30→17:06)
[2019-11-30] MEDS ORDERED: PT OWN MED DRAWER 7, Y5N ONE ×4 (07:07→20:50)
[2019-11-30 07:30] LABS: BASO % 0.9 % (0-2.0); EOS % 2.1 % (0-4.5); HEMATOCRIT 40.2 % (32.4-45.2); HEMOGLOBIN 13.1 GM/dL (10.7-15.3); LYMPH % 33.4 % (8-40); MCH 28.3 pg (25.7-33.7); MCHC 32.6 g/dl (32.0-36.0); MEAN CELL VOLUME 86.9 fl (80-96); MEAN PLT VOLUME 8.8 fl (7.5-11.1); MONO % 10.2 % (3.8-10.2); NEUT % 53.4 % (42.8-82.8); PLATELET COUNT 366 K/MM3 (134-434); RBC 4.63 M/mm3 (3.60-5.2); WHITE BLOOD COUNT 12.2 K/mm3 (4.0-10.0)
[2019-11-30 07:54] LABS: CHLORIDE 96 mmol/L (98-107); SODIUM 140 mmol/L (136-145)
[2019-11-30 08:11] LABS: GLUCOSE,RANDOM 74 mg/dL (74-106)
[2019-11-30 08:12] LABS: ALBUMIN 2.3 g/dl (3.4-5.0); ALK PHOS 80 U/L (45-117); ANION GAP 7 MMOL/L (8-16); BILIRUBIN,TOTAL 0.4 mg/dL (0.2-1); BLOOD UREA NITROGEN 13.9 mg/dL (7-18); CALCIUM 8.4 mg/dL (8.5-10.1); CHOLESTEROL 193 mg/dL (50-200); CO2 37 mmol/L (21-32); CREATININE 0.8 mg/dL (0.55-1.3); HDL CHOLESTEROL 47 mg/dL (40-60); LDL CHOLESTEROL (ONLY SJRH) 132 mg/dL (5-100); MAGNESIUM 1.8 mg/dL (1.8-2.4); PHOSPHOROUS 4.4 mg/dL (2.5-4.9); SGOT/AST 27 U/L (15-37); SGPT/ALT 26 U/L (13-61); TOT PROT 6.6 g/dl (6.4-8.2); TRIGLYCERIDES 128 mg/dL (0-150)
--- NOTE | 2019-11-30 09:06 | CON.NEURO ---
Consult Consult Specialty:: [facility] Reason for Consultation:: AMS - History of Present Illness History of Present Illness: this 59-year-old right-handed female patient with multiple medical problem well known to me from the office patient of mine last seen at [facility] in 2018 due to altered mental status she was in the medical ICU who presented yesterday to the [facility] with a chief complaint of chest tightness. Patient no history as far as a seizure patient was on Depakote Depakote level was undetectable. Since admission to the telemetry patient with no seizure activity. Patient was admitted to cardiac for for chest tightness. HTN, HLD, CAD s/p Stent, CHF, Diabetes Mellitus, COVID 19 + (August 2019), COPD, Polysubstance Abuse (Cocaine, Cannabis, Xanax), Tobacco Dependency, Seizure Disorder, Depression, Hepatitis C. 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 pt thinks she may have had one in the past (L facial droop)), Seizure Cardio/Vascular: Yes: CAD (with stents), HTN, Hyperlipdemia, Murmur (tricuspic insufficiency) Pulmonary: Yes: Asthma, COPD Gastrointestinal: Yes: Gastritis, Other ("colitis" mid-April) Hepatobiliary: Yes: Hepatitis C Infectious Disease: Yes: MRSA (R thigh abscess 02/26) Psych: Yes: Addictions, Anxiety, Bipolar, Depression Musculoskeletal: Yes: Chronic low back pain Endocrine: Yes: Diabetes Mellitus - Past Surgical History Past Surgical History: Yes: Appendectomy, Cholecystectomy (laparoscopic), Colonoscopy, Hysterectomy (vaginal), Tonsillectomy, Upper Endoscopy - Alcohol/Substance Use Hx Alcohol Use: No History of Substance Use: reports: Cocaine (crack), Heroin (snorted cocaine and heroin, denies IVDA) - Smoking History Smoking history: Current every day smoker Have you smoked in the past 12 months: Yes Aproximately how many cigarettes per day: 20 - Social History Usual Living Arrangement: With Child ADL: Family Assistance Occupation: disabled History of Recent Travel: No Home Medications - Allergies Allergies/Adverse Reactions: Allergies Allergy/AdvReac Type Severity Reaction Status Date / Time No Known Allergies Allergy Verified 11/29/19 10:53 - Home Medications Home Medications: Ambulatory Orders Aspirin [ASA -] 162 mg PO DAILY 08/19/18 Cyclobenzaprine HCl 10 mg PO BID 08/19/18 Diltiazem Cd [Cardizem Cd -] 120 mg PO DAILY 08/19/18 Divalproex Sodium [Depakote ER] 500 mg PO BID 08/19/18 Folic Acid/Multivit-Min/Lutein [Multi-Vitamin Gummies] 1 each PO DAILY 08/19/18 Furosemide [Lasix -] 20 mg PO DAILY 08/19/18 Gabapentin 200 mg PO TID 08/19/18 Insulin Glargine,Hum.rec.anlog [Basaglar Kwikpen U-100] 20 unit SQ DAILY 08/19/18 Lipase/Protease/Amylase [Alexi Dr 36,000 Units Capsule] 1 each PO TID 08/19/18 Metformin HCl [Glucophage] 500 mg PO BID 08/19/18 Pantoprazole Sodium 40 mg PO DAILY 08/19/18 Potassium Chloride 20 meq PO DAILY 08/19/18 Quetiapine Fumarate [Seroquel -] 25 mg PO BID 08/19/18 Simvastatin [Zocor -] 10 mg PO HS 08/19/18 traZODone HCL [Trazodone HCl] 100 mg PO HS 08/19/18 Apixaban [Eliquis] 2.5 mg PO BID #28 tablet 08/27/19 Prednisone [Prednisone 50 MG TABLETS] 50 mg PO DAILY #5 tablet 08/27/19 Methadone [Dolophine -] 80 mg PO DAILY 11/29/19 Family Medical History Family History: Unremarkable Family Hx Coronary Artery Disease: Sister, Brother Review of Systems - Review of Systems Neurological: reports: Dizziness, Headache, Incoordination, Numbness, Parasth esia Physical Exam-Neuro Vital Signs: Vital Signs Temperature 98.1 F 11/30/19 06:00 Pulse Rate 73 11/30/19 06:00 Respiratory Rate 20 11/30/19 06:00 Blood Pressure 130/71 11/30/19 06:00 O2 Sat by Pulse Oximetry (%) 95 11/30/19 00:00 Constitutional: Yes: No Distress Neck: Yes: Supple Cardiovascular: Yes: WNL Labs: CBC, BMP 11/30/19 06:55 11/30/19 06:55 INR, PTT INR 1.05 (0.83-1.09) 11/29/19 11:30 - Neuro Exam Level Of Consciousness: Yes: Oriented to Person, Oriented to Place Eyes: Yes: PERRLA Speech: WNL Dominant Hand: Right Cranial Nerves II-XII Intact: Yes Gag: Present DTR's: 0 Left Bicep, 0 Right Bicep, 0 Left Tricep, 0 Right Tricep Response to light touch: Normal Response to pain prick: Normal Response to temperature: Normal Motor Strength: 3/5: Left Arm, Right Arm, Left Leg, Right Leg Gait: Deferred Imaging - Results Cat Scan: Image Reviewed Problem List - Problems (1) Chest pain Code(s): R07.9 - CHEST PAIN, UNSPECIFIED (2) Syncope Code(s): R55 - SYNCOPE AND COLLAPSE (3) Vertigo Code(s): R42 - DIZZINESS AND GIDDINESS (4) Neuropathy Code(s): G62.9 - POLYNEUROPATHY, UNSPECIFIED Assessment/Plan 1. Follow-up with cardiology. 2. Obtain carotid Doppler. 3. Check orthostasis every shift. 4. Continue anticoagulation. 5. Seizure precautions. 6. Increase Depakote to 750 twice a day. Lalo Bruner MD
[2019-11-30] MEDS ORDERED: predniSONE 20 MG TABLET (UD) ONE (09:24)
[2019-11-30] MEDS ORDERED: predniSONE 10 MG TABLET (UD) ONE (09:24)
[2019-11-30] MEDS ORDERED: cefTRIAXone SODIUM 1 GM VIAL ONE (09:26)
[2019-11-30] MEDS ORDERED: DEXTROSE 5%-WATER - 50 ML IVPB ONE (09:26)
[2019-11-30] MEDS: DIVALPROEX NA *ER* EXTEND REL 500 MG TABLET.SA (FP) PO SCH (09:32)
[2019-11-30] MEDS: INSULIN (LEVEMIR) 100 UNITS/ML UNITS SQ SCH (09:32)
[2019-11-30] MEDS: APIXABAN 2.5 MG TABLET PO SCH ×2 (09:32→12:30)
[2019-11-30] MEDS: ASPIRIN 81 MG CHEWABLE TABLETS PO SCH (09:32)
[2019-11-30] MEDS: QUEtiapine FUMARATE 25 MG TABLET PO SCH (09:33)
[2019-11-30] MEDS: PANTOPRAZOLE 40 MG TABLET PO SCH (09:33)
[2019-11-30] MEDS: MULTIVITAMINS THER W-MINERALS COMBO TABLET (FP) PO SCH (09:33)
[2019-11-30] MEDS: CEFTRIAXONE 1 GM in DEXTROSE 5%-WATER - 50 ML IVPB SCH (09:33)
[2019-11-30] MEDS ORDERED: PATIENT'S OWN MEDICATION (NON-FORMULARY) (Prednisone [Prednisone 50 Mg Tablets] 50 MG) PO SCH (10:00)
[2019-11-30] MEDS ORDERED: predniSONE 40 MG, predniSONE 10 MG PO SCH (10:00)
[2019-11-30] MEDS ORDERED: INSULIN (LEVEMIR) 100 UNITS/ML UNITS SQ ONE (10:17)
--- NOTE | 2019-11-30 10:35 | CON.CARD ---
Consult Consult Specialty:: Cardiology Referred by:: Adam Reason for Consultation:: syncope - History of Present Illness Chief Complaint: syncope History of Present Illness: 59 y/o female with a history of HTN, HLD, CAD s/p Stent x 2, PAF on eliquis, chronic diastolic CHF, Diabetes Mellitus, COVID 19 + (August 2019), COPD, Polysubs tance Abuse (Cocaine, Cannabis, Xanax), Tobacco Dependency, Seizure Disorder, Depression, Hepatitis C admitted with epigastric pain, vomiting, nausea and chest tightness with lightheadedness, for 2 days as well as fever and weakness, lightheadedness and fall. echo 02/07/18 normal EF. noted with UTI. troponin negative - History Source History Provided By: Patient, Medical Record - Past Medical History NURSE WOUND CARE: Yes: CVA (? pt thinks she may have had one in the past (L facial droop)), Seizure Cardio/Vascular: Yes: CAD (with stents), HTN, Hyperlipdemia, Murmur (tricuspic insufficiency) Pulmonary: Yes: Asthma, COPD Gastrointestinal: Yes: Gastritis, Other ("colitis" mid-April) Hepatobiliary: Yes: Hepatitis C Infectious Disease: Yes: MRSA (R thigh abscess 02/26) Psych: Yes: Addictions, Anxiety, Bipolar, Depression Musculoskeletal: Yes: Chronic low back pain Endocrine: Yes: Diabetes Mellitus - Past Surgical History Past Surgical History: Yes: Appendectomy, Cholecystectomy (laparoscopic), Colonoscopy, Hysterectomy (vaginal), Tonsillectomy, Upper Endoscopy - Alcohol/Substance Use Hx Alcohol Use: No History of Substance Use: reports: Cocaine (crack), Heroin (snorted cocaine and heroin, denies IVDA) - Smoking History Smoking history: Current every day smoker Have you smoked in the past 12 months: Yes Aproximately how many cigarettes per day: 20 - Social History Usual Living Arrangement: With Child ADL: Family Assistance Occupation: disabled History of Recent Travel: No Home Medications - Allergies Allergies/Adverse Reactions: Allergies Allergy/AdvReac Type Severity Reaction Status Date / Time No Known Allergies Allergy Verified 11/29/19 10:53 - Home Medications Home Medications: Ambulatory Orders Aspirin [ASA -] 162 mg PO DAILY 08/19/18 Cyclobenzaprine HCl 10 mg PO BID 08/19/18 Diltiazem Cd [Cardizem Cd -] 120 mg PO DAILY 08/19/18 Divalproex Sodium [Depakote ER] 500 mg PO BID 08/19/18 Folic Acid/Multivit-Min/Lutein [Multi-Vitamin Gummies] 1 each PO DAILY 08/19/18 Furosemide [Lasix -] 20 mg PO DAILY 08/19/18 Gabapentin 200 mg PO TID 08/19/18 Insulin Glargine,Hum.rec.anlog [Basaglar Kwikpen U-100] 20 unit SQ DAILY 08/19/18 Lipase/Protease/Amylase [Creon Dr 36,000 Units Capsule] 1 each PO TID 08/19/18 Metformin HCl [Glucophage] 500 mg PO BID 08/19/18 Pantoprazole Sodium 40 mg PO DAILY 08/19/18 Potassium Chloride 20 meq PO DAILY 08/19/18 Quetiapine Fumarate [Seroquel -] 25 mg PO BID 08/19/18 Simvastatin [Zocor -] 10 mg PO HS 08/19/18 traZODone HCL [Trazodone HCl] 100 mg PO HS 08/19/18 Apixaban [Eliquis] 2.5 mg PO BID #28 tablet 08/27/19 Prednisone [Prednisone 50 MG TABLETS] 50 mg PO DAILY #5 tablet 08/27/19 Methadone [Dolophine -] 80 mg PO DAILY 11/29/19 Family Medical History Family History: Unremarkable Family Hx Coronary Artery Disease: Sister, Brother Vital Signs: Vital Signs Temperature 98.8 F 11/30/19 09:05 Pulse Rate 82 11/30/19 09:05 Respiratory Rate 20 11/30/19 09:05 Blood Pressure 135/74 11/30/19 09:05 O2 Sat by Pulse Oximetry (%) 92 L 11/30/19 09:05 - Other Data Labs, Other Data: CBC, BMP 11/30/19 06:55 11/30/19 06:55 INR, PTT INR 1.05 (0.83-1.09) 11/29/19 11:30 Troponin, BNP 11/29/19 11/29/19 11/30/19 11:30 21:35 06:55 Troponin I < 0.02 < 0.02 < 0.02 Troponin, BNP 11/29/19 11/29/19 11/30/19 11:30 21:35 06:55 Troponin I < 0.02 < 0.02 < 0.02 Assessment/Plan 59 y/o female with a history of HTN, HLD, CAD s/p Stent x 2, PAF on eliquis, chronic diastolic CHF, Diabetes Mellitus, COVID 19 + (August 2019), COPD, Poly substance Abuse (Cocaine, Cannabis, Xanax), Tobacco Dependency, Seizure Disorder, Depression, Hepatitis C admitted with epigastric pain, vomiting, nausea and chest tightness with lightheadedness, for 2 days as well as fever and weakness, lightheadedness and fall. echo 02/07/18 normal EF. noted with UTI. troponin negative IMP: -likely orthostasis due to underlying infection -covid negative -no need for inpatient echo -no evidence of ACS. no need for inpatient ischemia workup. -tele x 24 hours -restart medication as tolerated. -abx per primary team, needs IVF -orthostatic VS, titrate bp meds to standing bp -will follow with you.
[2019-11-30] MEDS ORDERED: INSULIN (NOVOLOG) ASPART 100 UNITS/ML 10ML VIAL ONE (11:41)
[2019-11-30] MEDS ORDERED: MECLIZINE HCL 25 MG TABLET (FP) PO PRN (12:15)
[2019-11-30] MEDS ORDERED: APIXABAN 5 MG TABLET PO SCH (12:15)
[2019-11-30] MEDS ORDERED: ACETAMINOPHEN 325 MG TABLET (FP) PO PRN (12:15)
[2019-11-30] MEDS ORDERED: KCL 10 MEQ IVPB 10 MEQ/100 ML INFUS.BAG IVPB SCH (12:15)
[2019-11-30] MEDS ORDERED: DIVALPROEX SODIUM 250 MG TABLET E.C. PO SCH ×2 (12:15→22:00)
[2019-11-30] MEDS ORDERED: ONDANSETRON 4 MG/2 ML VIAL IVPUSH PRN (12:19)
[2019-11-30] MEDS ORDERED: APIXABAN 2.5 MG TABLET PO ONE (12:23)
--- NOTE | 2019-11-30 12:24 | PN ---
Progress Note, Physician Chief Complaint: Dizziness Chest pain History of Present Illness: NAD Denies any chest paina t this time c/o mild dizziness, was nauseous earlier Seen by Cardiology + Neurology CT head negative - Current Medication List Current Medications: Active Medications Acetaminophen (Tylenol -) 650 mg PO Q4H PRN PRN Reason: PAIN Apixaban (Eliquis -) 5 mg PO BID [facility] Aspirin (Asa -) 162 mg PO DAILY [facility] Last Admin: 11/30/19 09:32 Dose: 162 mg Documented by: Atorvastatin Calcium (Lipitor -) 10 mg PO HS [facility] Last Admin: 11/29/19 22:27 Dose: 10 mg Documented by: Cyclobenzaprine HCl (Flexeril -) 10 mg PO BID [facility] Diltiazem HCl (Cardizem Cd -) 120 mg PO DAILY [facility] Last Admin: 11/30/19 09:32 Dose: 120 mg Documented by: Divalproex Sodium (Depakote *Er* -) 500 mg PO BID [facility] Last Admin: 11/30/19 09:32 Dose: 500 mg Documented by: Divalproex Sodium (Depakote -) 750 mg PO BID [facility] Furosemide (Lasix -) 40 mg PO DAILY [facility] Gabapentin (Neurontin -) 200 mg PO TID [facility] Last Admin: 11/30/19 06:30 Dose: 200 mg Documented by: Ceftriaxone Sodium 1 gm/ (Dextrose) 50 mls @ 100 mls/hr IVPB DAILY [facility]; Protocol Last Admin: 11/30/19 09:33 Dose: 100 mls/hr Documented by: Potassium Chloride (Potassium Chloride 10 Meq Premix Ivpb -) 10 meq in 100 mls @ 100 mls/hr IVPB Q60M [facility] Stop: 11/30/19 15:14 Insulin Aspart (Novolog Vial Sliding Scale -) 1 vial SQ ACHS [facility]; Protocol Last Admin: 11/30/19 11:48 Dose: Not Given Documented by: Insulin Detemir (Levemir Vial) 20 units SQ DAILY [facility] Last Admin: 11/30/19 09:32 Dose: 20 units Documented by: Meclizine HCl (Antivert -) 25 mg PO TID PRN PRN Reason: VERTIGO Methadone HCl (Dolophine -) 80 mg PO DAILY@0600 [facility] Last Admin: 11/30/19 06:29 Dose: 80 mg Documented by: Metoprolol Succinate (Toprol Xl -) 25 mg PO DAILY [facility] Multivitamins/Minerals (Theragran-M) 1 each PO DAILY [facility] Last Admin: 11/30/19 09:33 Dose: 1 each Documented by: Pantoprazole Sodium (Protonix -) 40 mg PO DAILY [facility] Last Admin: 11/30/19 09:33 Dose: 40 mg Documented by: Potassium Chloride (K-Dur -) 40 meq PO DAILY [facility] Prednisone 40 mg/ Prednisone (10 mg) 50 mg PO DAILY [facility] Last Admin: 11/30/19 09:32 Dose: 50 mg Documented by: Quetiapine Fumarate (Seroquel -) 25 mg PO BID [facility] Last Admin: 11/30/19 09:33 Dose: 25 mg Documented by: Trazodone HCl (Desyrel -) 100 mg PO [facility] Last Admin: 11/29/19 22:26 Dose: 100 mg Documented by: - Objective Vital Signs: Vital Signs Temperature 98.8 F 11/30/19 09:05 Pulse Rate 82 11/30/19 09:05 Respiratory Rate 20 11/30/19 09:05 Blood Pressure 135/74 11/30/19 09:05 O2 Sat by Pulse Oximetry (%) 92 L 11/30/19 09:05 Constitutional: Yes: Well Nourished, No Distress, Calm, Obese Cardiovascular: Yes: Regular Rate and Rhythm Respiratory: Yes: Regular, CTA Bilaterally Gastrointestinal: Yes: Normal Bowel Sounds, Soft Genitourinary: Yes: WNL Musculoskeletal: Yes: WNL Extremities: Yes: WNL Edema: No Peripheral Pulses WNL: Yes Neurological: Yes: Alert, Oriented Psychiatric: Yes: Alert, Oriented Labs: CBC, BMP 11/30/19 06:55 11/30/19 06:55 INR, PTT INR 1.05 (0.83-1.09) 11/29/19 11:30 Problem List - Problems (1) Diabetes Assessment/Plan: -A1c at 9.0 -BGM AC HS -ISS -Diabetic sodium diet -Levemir 20 U AM -Endocrine consult Problems reviewed: Yes Code(s): E11.9 - TYPE 2 DIABETES MELLITUS WITHOUT COMPLICATIONS (2) Dizziness Assessment/Plan: -Seen by cardiology + Neurology -U/S carotid -Orthostatic BP -Vertigo? -Meclizine 25 mg po TID PRN -CT head+ MRI brain unremarkable -Autonomic neuropathy? Problems reviewed: Yes Code(s): R42 - DIZZINESS AND GIDDINESS (3) Seizure disorder Problems reviewed: Yes Code(s): G40.909 - EPILEPSY, UNSP, NOT INTRACTABLE, WITHOUT STATUS EPILEPTICUS (4) Hypertension Problems reviewed: Yes Code(s): I10 - ESSENTIAL (PRIMARY) HYPERTENSION Qualifiers: Hypertension type: essential hypertension Qualified Code(s): I10 - [place] l (primary) hypertension (5) Bipolar II disorder Assessment/Plan: -Psychiatric consult Problems reviewed: Yes Code(s): F31.81 - BIPOLAR II DISORDER (6) Chest pain Assessment/Plan: -No changes in EKG -No events on Tele -Trops negative -CP resolved at the moment -evaluated by Cardiology- no inpatient workup recommended Problems reviewed: Yes Code(s): R07.9 - CHEST PAIN, UNSPECIFIED (7) CAD (coronary artery disease) Assessment/Plan: -Continue statin + BB+ ASA -Cardiology on board Problems reviewed: Yes Code(s): I25.10 - ATHSCL HEART DISEASE OF [place] CORONARY ARTERY W/O ANG PCTRS (8) Paroxysmal A-fib Assessment/Plan: -Continue Eliquis 5 mg po BID -Controlled + Stable Problems reviewed: Yes Code(s): I48.0 - PAROXYSMAL ATRIAL FIBRILLATION (9) Vertigo Assessment/Plan: -Trial of meclizine 25 mg po tid prn Problems reviewed: Yes Code(s): R42 - DIZZINESS AND GIDDINESS Assessment/Plan See problem list
[2019-11-30] MEDS ORDERED: DIVALPROEX SODIUM 250 MG TABLET E.C. PO ONE (13:30)
[2019-11-30] MEDS: POTASSIUM CHLORIDE TABS 10 MEQ TABLET.ER (FP) PO SCH (13:37)
[2019-11-30] MEDS: CYCLOBENZAPRINE HCL 10 MG TABLET (FP) PO SCH ×2 (13:37→21:17)
[2019-11-30] MEDS: metoPROLOL SUCCINATE 25 MG TAB.SR.24H (FP) PO SCH (13:38)
[2019-11-30] MEDS: FUROSEMIDE 40 MG TABLET (FP) PO SCH (13:38)
[2019-11-30 14:27] LABS: COCAINE, UR NEGATIVE ng/ml (CUTOFF=300); PHENCYCLIDINE,URINE NEGATIVE ng/ml (CUTOFF=25); URINE AMPHETAMINES NEGATIVE ng/ml (CUTOFF=500); URINE BARBITURATES NEGATIVE ng/ml (CUTOFF=200); URINE BENZODIAZEPINES NEGATIVE ng/ml (CUTOFF=200)
[2019-11-30 14:53] LABS: METHADONE, UR POSITIVE ng/ml (CUTOFF=300); OPIATES, URI POSITIVE ng/ml (CUTOFF=300)
--- NOTE | 2019-11-30 14:56 | CON.PSY ---
Psychiatry Consult Chief Complaint: 59 year old female with a long History of Substance abuse, Depression and chronic medical conditions including Stent placementt. COVID 190. [Patient seen for Psych eval forc? DFepression. On Psych meds. also on methadone.n Reports having pressured thoughts. denies any increased Depression.. - Previous Psychiatric Treatment Outpatient: Less than 6 mos ago Inpatient: Within the last 12 months - Previous Substance Abuse Treatment Outpatient: More than 6 mos ago Inpatient: None - Reason for Previous Treatment Reason for Previous Treatment: Major Depression, Heroin or Other Narcotics - Current Medications Current Medications: Active Medications Acetaminophen (Tylenol -) 650 mg PO Q4H PRN PRN Reason: PAIN Apixaban (Eliquis -) 5 mg PO BID [facility] Aspirin (Asa -) 162 mg PO DAILY [facility] Last Admin: 11/30/19 09:32 Dose: 162 mg Documented by: Atorvastatin Calcium (Lipitor -) 10 mg PO HS [facility] Last Admin: 11/29/19 22:27 Dose: 10 mg Documented by: Cyclobenzaprine HCl (Flexeril -) 10 mg PO BID [facility] Last Admin: 11/30/19 13:37 Dose: 10 mg Documented by: Diltiazem HCl (Cardizem Cd -) 120 mg PO DAILY [facility] Last Admin: 11/30/19 09:32 Dose: 120 mg Documented by: Divalproex Sodium (Depakote -) 750 mg PO BID [facility] Furosemide (Lasix -) 40 mg PO DAILY [facility] Last Admin: 11/30/19 13:38 Dose: 40 mg Documented by: Gabapentin (Neurontin -) 200 mg PO TID [facility] Last Admin: 11/30/19 13:38 Dose: 200 mg Documented by: Ceftriaxone Sodium 1 gm/ (Dextrose) 50 mls @ 100 mls/hr IVPB DAILY [facility]; Protoc ol Last Admin: 11/30/19 09:33 Dose: 100 mls/hr Documented by: Insulin Aspart (Novolog Vial Sliding Scale -) 1 vial SQ TIDAC [facility]; Protocol Insulin Detemir (Levemir Vial) 20 units SQ DAILY [facility] Last Admin: 11/30/19 09:32 Dose: 20 units Documented by: Meclizine HCl (Antivert -) 25 mg PO TID PRN PRN Reason: VERTIGO Methadone HCl (Dolophine -) 80 mg PO DAILY@0600 [facility] Last Admin: 11/30/19 06:29 Dose: 80 mg Documented by: Metoprolol Succinate (Toprol Xl -) 25 mg PO DAILY [facility] Last Admin: 11/30/19 13:38 Dose: 25 mg Documented by: Multivitamins/Minerals (Theragran-M) 1 each PO DAILY [facility] Last Admin: 11/30/19 09:33 Dose: 1 each Documented by: Ondansetron HCl (Zofran Injection) 4 mg IVPUSH Q6H PRN PRN Reason: NAUSEA AND/OR VOMITING Pantoprazole Sodium (Protonix -) 40 mg PO DAILY [facility] Last Admin: 11/30/19 09:33 Dose: 40 mg Documented by: Potassium Chloride (K-Dur -) 40 meq PO DAILY [facility] Last Admin: 11/30/19 13:37 Dose: 40 meq Documented by: Potassium Chloride (K-Dur -) 40 meq PO ONCE ONE Stop: 11/30/19 16:01 Quetiapine Fumarate (Seroquel -) 50 mg PO BID [facility] Trazodone HCl (Desyrel -) 100 mg PO HS [facility] Last Admin: 11/29/19 22:26 Dose: 100 mg Documented by: - Allergies Allergies: Allergies Allergy/AdvReac Type Severity Reaction Status Date / Time No Known Allergies Allergy Verified 11/29/19 10:53 - Current Living Status Usual Living Arrangement: With Significant Other - Current Mental Status Evaluation Appearance: Well Groomed Attitude: Cooperative - Affect Affect: Full Range Appropriateness: Appropriate to Content - Mood Mood: Anxious - Speech/Language Expressive: Coherent - Psychomotor Activity Psychomotor Activity: Normal - Thought Process Thought Process: Intact - Thought Content Hallucinations: Absent Delusions: Absent - Self Perception Self Perception: No Impairment - Cognition Attention: Alert Orientation: Time Memory, Immediate Recall: Intact Memory, Short Term: 3/3 Memory, Remote with Promptin/3 - Concentration Serial Sevens Intact: No Simple Calculations Intact: Yes - Abstraction Proverb Interpretation: Intact Judgement: Minimally Impaired - Insight Insight: Intact - Impulse Control Impulse Control: Good Control - Suicidal Ideation Suicidal Ideation: No - Homicidal Ideation Homicidal Ideation: No Assessment/Plan 1) increase Seroquel 50 mg po bid. 2) Continue with Trazadone 100 mg po hs. for Depression.
--- NOTE | 2019-11-30 14:57 | EKG ---
Test Reason : Blood Pressure : / mmHG Vent. Rate : 080 BPM Atrial Rate : 080 BPM P-R Int : 178 ms QRS Dur : 078 ms QT Int : 364 ms P-R-T Axes : 068 061 056 degrees QTc Int : 419 ms NORMAL SINUS RHYTHM NORMAL ECG WHEN COMPARED WITH ECG OF 29-NOV-2019 11:06, CRITERIA FOR SEPTAL INFARCT ARE NO LONGER PRESENT NONSPECIFIC T WAVE ABNORMALITY NOW EVIDENT IN LATERAL LEADS QT HAS SHORTENED Confirmed by AMARILIS WILLIS, YAMILE ([id number]) on 11/30/2019 2:57:39 PM Referred By: Confirmed By:YAMILE OLMOS MD
--- NOTE | 2019-11-30 15:45 | PN ---
Progress Note (short form) - Note Progress Note: ID CONSULT DICTATED UTI R/O SEPSIS SECONDARY TO UTI AWAIT C/S CONTINEU [id number]
[2019-11-30] MEDS ORDERED: POTASSIUM CHLORIDE TABS 20 MEQ TABLET.ER (FP) PO ONE (16:00)
--- NOTE | 2019-11-30 16:57 | EKG ---
Test Reason : Blood Pressure : / mmHG Vent. Rate : 091 BPM Atrial Rate : 091 BPM P-R Int : 190 ms QRS Dur : 070 ms QT Int : 412 ms P-R-T Axes : 068 065 062 degrees QTc Int : 506 ms NORMAL SINUS RHYTHM BIATRIAL ENLARGEMENT SEPTAL INFARCT (CITED ON OR BEFORE 15-AUG-2019) PROLONGED QT ABNORMAL ECG WHEN COMPARED WITH ECG OF 15-AUG-2019 22:04, NO SIGNIFICANT CHANGE WAS FOUND Confirmed by YAMILE OLMOS MD ([id number]) on 11/30/2019 4:57:20 PM Referred By: Confirmed By:YAMILE OLMOS MD
[2019-11-30] MEDS ORDERED: hydrALAZINE HCL 10 MG TABLET PO ONE (17:23)
--- NOTE | 2019-11-30 18:49 | CONSULT ---
Consult Consult Specialty:: Endocrine Referred by:: Dr.Iyad Lawrence Reason for Consultation:: DMT2,diabetic neuropathy - History of Present Illness History of Present Illness: 59 y/o female with a PMHx of DMtype 2,HLD, HTN, CAD s/p Stent, CHF, Diabetes Mellitus, COVID 19 + (August 2019), COPD, Polysubstance Abuse (Cocaine, Cannabis, Xanax), Tobacco Dependency, Seizure Disorder, Depression, Hepatitis C. who presented with chest pain,tightness and difficulty breathing tired and weak with memory deficit weight gain,has elevated blood sugars. - Past Medical History HEEL SEAT LASTER: Yes: CVA (? pt thinks she may have had one in the past (L facial droop)), Seizure Cardio/Vascular: Yes: CAD (with stents), HTN, Hyperlipdemia, Murmur (tricuspic insufficiency) Pulmonary: Yes: Asthma, COPD Gastrointestinal: Yes: Gastritis, Other ("colitis" mid-April) Hepatobiliary: Yes: Hepatitis C Infectious Disease: Yes: MRSA (R thigh abscess 02/26) Psych: Yes: Addictions, Anxiety, Bipolar, Depression Musculoskeletal: Yes: Chronic low back pain Endocrine: Yes: Diabetes Mellitus - Past Surgical History Past Surgical History: Yes: Appendectomy, Cholecystectomy (laparoscopic), Colonoscopy, Hysterectomy (vaginal), Tonsillectomy, Upper Endoscopy - Alcohol/Substance Use Hx Alcohol Use: No History of Substance Use: reports: Cocaine (crack), Heroin (snorted cocaine and heroin, denies IVDA) - Smoking History Smoking history: Current every day smoker Have you smoked in the past 12 months: Yes Aproximately how many cigarettes per day: 20 - Social History Usual Living Arrangement: With Significant Other ADL: Family Assistance Occupation: disabled History of Recent Travel: No Home Medications - Allergies Allergies/Adverse Reactions: Allergies Allergy/AdvReac Type Severity Reaction Status Date / Time No Known Allergies Allergy Verified 11/29/19 10:53 - Home Medications Home Medications: Ambulatory Orders Aspirin [ASA -] 162 mg PO DAILY 08/19/18 Cyclobenzaprine HCl 10 mg PO BID 08/19/18 Diltiazem Cd [Cardizem Cd -] 120 mg PO DAILY 08/19/18 Divalproex Sodium [Depakote ER] 500 mg PO BID 08/19/18 Folic Acid/Multivit-Min/Lutein [Multi-Vitamin Gummies] 1 each PO DAILY 08/19/18 Furosemide [Lasix -] 20 mg PO DAILY 08/19/18 Gabapentin 200 mg PO TID 08/19/18 Insulin Glargine,Hum.rec.anlog [Basaglar Kwikpen U-100] 20 unit SQ DAILY 08/19/18 Lipase/Protease/Amylase [Creon Dr 36,000 Units Capsule] 1 each PO TID 08/19/18 Metformin HCl [Glucophage] 500 mg PO BID 08/19/18 Pantoprazole Sodium 40 mg PO DAILY 08/19/18 Potassium Chloride 20 meq PO DAILY 08/19/18 Quetiapine Fumarate [Seroquel -] 25 mg PO BID 08/19/18 Simvastatin [Zocor -] 10 mg PO HS 08/19/18 traZODone HCL [Trazodone HCl] 100 mg PO HS 08/19/18 Apixaban [Eliquis] 2.5 mg PO BID #28 tablet 08/27/19 Prednisone [Prednisone 50 MG TABLETS] 50 mg PO DAILY #5 tablet 08/27/19 Methadone [Dolophine -] 80 mg PO DAILY 11/29/19 Insulin Glargine,Hum.rec.anlog [Basaglar Kwikpen U-100] 100 unit SQ DAILY 11/30/19 Metoprolol Succinate 25 mg PO DAILY 11/30/19 Family Medical History Family History: Unremarkable Family Hx Coronary Artery Disease: Sister, Brother Review of Systems - Review of Systems Constitutional: reports: Lethargy, Weakness Eyes: reports: No Symptoms HENT: reports: No Symptoms Neck: reports: Swollen Glands Cardiovascular: reports: No Symptoms Respiratory: reports: Exercise Intolerance, SOB, SOB on Exertion Gastrointestinal: reports: No Symptoms Genitourinary: reports: Frequency Breasts: reports: No Symptoms Reported Musculoskeletal: reports: Joint Pain, Muscle Weakness Integumentary: reports: No Symptoms Neurological: reports: No Symptoms Endocrine: reports: Intolerance to Cold Physical Exam Vital Signs: Vital Signs Temperature 99.3 F 11/30/19 18:00 Pulse Rate 81 11/30/19 18:00 Respiratory Rate 11/30/19 18:00 Blood Pressure 162/81 11/30/19 18:00 O2 Sat by Pulse Oximetry (%) 92 L 11/30/19 13:58 Constitutional: Yes: Calm Eyes: Yes: EOM Intact HENT: Yes: Normocephalic Neck: Yes: Trachea Midline Labs: CBC, BMP 11/30/19 06:55 11/30/19 06:55 Problem List - Problems (1) Chest pain Problems reviewed: Yes Code(s): R07.9 - CHEST PAIN, UNSPECIFIED (2) Diabetes Code(s): E11.9 - TYPE 2 DIABETES MELLITUS WITHOUT COMPLICATIONS (3) Dizziness Code(s): R42 - DIZZINESS AND GIDDINESS (4) Encounter for screening laboratory testing for COVID-19 virus Code(s): Z11.59 - ENCOUNTER FOR SCREENING FOR OTHER VIRAL DISEASES (5) Syncope Code(s): R55 - SYNCOPE AND COLLAPSE (6) Vertigo Code(s): R42 - DIZZINESS AND GIDDINESS (7) ASHD (arteriosclerotic heart disease) Code(s): I25.10 - ATHSCL HEART DISEASE OF [place] CORONARY ARTERY W/O ANG PCTRS (8) Abdominal pain Code(s): R10.9 - UNSPECIFIED ABDOMINAL PAIN Qualifiers: Abdominal location: generalized Qualified Code(s): R10.84 - Generalized abdominal pain Assessment/Plan Current Active Problemshypothyroid thyroiditis Chest pain (Acute) Diabetes (Acute) Dizziness (Acute) Encounter for screening laboratory testing for COVID-19 virus (Acute) Syncope (Acute) Vertigo (Acute) Laboratory Results - last 24 hr 11/29/19 11/29/19 11/29/19 11:30 21:35 21:35 WBC RBC Hgb Hct MCV MCH MCHC RDW Plt Count MPV Absolute Neuts (auto) Neutrophils % Lymphocytes % Monocytes % Eosinophils % Basophils % Nucleated RBC % Sodium Potassium Chloride Carbon Dioxide Anion Gap BUN Creatinine Est GFR (CKD-EPI)AfAm Est GFR (CKD-EPI)NonAf POC Glucometer Random Glucose Hemoglobin A1c % Calcium Phosphorus Magnesium Total Bilirubin AST ALT Alkaline Phosphatase Creatine Kinase 79 Troponin I < 0.02 Total Protein Albumin Triglycerides Cholesterol Total LDL Cholesterol HDL Cholesterol TSH Opiates Screen Methadone Screen Barbiturate Screen Valproic Acid < 3.0 L Phencyclidine Screen Ur Amphetamines Screen MDMA (Ecstasy) Screen Benzodiazepines Screen Cocaine Screen U Marijuana (THC) Screen COVID-19 ([facility]) Not detected 11/29/19 11/30/19 11/30/19 22:34 06:27 06:55 WBC 12.2 H RBC 4.63 Hgb 13.1 Hct 40.2 MCV 86.9 MCH 28.3 MCHC 32.6 RDW 15.0 Plt Count 366 MPV 8.8 Absolute Neuts (auto) 6.5 Neutrophils % 53.4 D Lymphocytes % 33.4 D Monocytes % 10.2 D Eosinophils % 2.1 D Basophils % 0.9 Nucleated RBC % 0 Sodium Potassium Chloride Carbon Dioxide Anion Gap BUN Creatinine Est GFR (CKD-EPI)AfAm Est GFR (CKD-EPI)NonAf POC Glucometer 160 81 Random Glucose Hemoglobin A1c % Calcium Phosphorus Magnesium Total Bilirubin AST ALT Alkaline Phosphatase Creatine Kinase Troponin I Total Protein Albumin Triglycerides Cholesterol Total LDL Cholesterol HDL Cholesterol TSH Opiates Screen Methadone Screen Barbiturate Screen Valproic Acid Phencyclidine Screen Ur Amphetamines Screen MDMA (Ecstasy) Screen Benzodiazepines Screen Cocaine Screen U Marijuana (THC) Screen COVID- ([facility]) 11/30/19 11/30/19 11/30/19 06:55 06:55 09:41 WBC RBC Hgb Hct MCV MCH MCHC RDW Plt Count MPV Absolute Neuts (auto) Neutrophils % Lymphocytes % Monocytes % Eosinophils % Basophils % Nucleated RBC % Sodium 140 Potassium 3.0 L Chloride 96 L Carbon Dioxide 37 H Anion Gap 7 L BUN 13.9 Creatinine 0.8 Est GFR (CKD-EPI)AfAm 92.87 Est GFR (CKD-EPI)NonAf 80.13 POC Glucometer 154 Random Glucose 74 Hemoglobin A1c % 9.0 H Calcium 8.4 L Phosphorus 4.4 Magnesium 1.8 Total Bilirubin 0.4 AST 27 ALT 26 Alkaline Phosphatase 80 Creatine Kinase 52 Troponin I < 0.02 Total Protein 6.6 Albumin 2.3 L Triglycerides 128 Cholesterol 193 Total LDL Cholesterol 132 H HDL Cholesterol 47 TSH 6.06 H Opiates Screen Methadone Screen Barbiturate Screen Valproic Acid Phencyclidine Screen Ur Amphetamines Screen MDMA (Ecstasy) Screen Benzodiazepines Screen Cocaine Screen U Marijuana (THC) Screen COVID-19 ([facility]) 11/30/19 11/30/19 11/30/19 11:47 14:00 17:01 WBC RBC Hgb Hct MCV MCH MCHC RDW Plt Count MPV Absolute Neuts (auto) Neutrophils % Lymphocytes % Monocytes % Eosinophils % Basophils % Nucleated RBC % Sodium Potassium Chloride Carbon Dioxide Anion Gap BUN Creatinine Est GFR (CKD-EPI)AfAm Est GFR (CKD-EPI)NonAf POC Glucometer 149 364 Random Glucose Hemoglobin A1c % Calcium Phosphorus Magnesium Total Bilirubin AST ALT Alkaline Phosphatase Creatine Kinase Troponin I Total Protein Albumin Triglycerides Cholesterol Total LDL Cholesterol HDL Cholesterol TSH Opiates Screen Positive A* Methadone Screen Positive A* Barbiturate Screen Negative Valproic Acid Phencyclidine Screen Negative Ur Amphetamines Screen Negative MDMA (Ecstasy) Screen Negative Benzodiazepines Screen Negative Cocaine Screen Negative U Marijuana (THC) Screen Negative COVID-19 ([facility]) plan: synthroid 25mcg q am bgm achs novolog scale levemir 20 units am diet and revaluate need for cgms as outpatient
[2019-11-30] MEDS: QUEtiapine FUMARATE 50 MG TABLET PO SCH (21:16)
[2019-11-30] MEDS: ATORVASTATIN CA 10 MG TABLET (FP) PO SCH (21:16)
[2019-11-30] MEDS: traZODone HCL 50 MG TABLET (FP) PO SCH (21:16)
[2019-11-30] MEDS: APIXABAN 5 MG TABLET PO SCH (21:17)
[2019-12-01] MEDS: METHADONE HCL 40 MG DISPERSABLE TABLET PO SCH (05:42)
[2019-12-01] MEDS: GABAPENTIN 100 MG CAPSULE PO SCH ×3 (05:42→22:28)
[2019-12-01] MEDS: INSULIN SLIDING SCALE (NOVOLOG) 1 VIAL SQ SCH ×3 (06:03→16:52)
[2019-12-01 07:08] LABS: BASO % 0.4 % (0-2.0); EOS % 0.6 % (0-4.5); HEMATOCRIT 38.3 % (32.4-45.2); HEMOGLOBIN 12.4 GM/dL (10.7-15.3); LYMPH % 33.2 % (8-40); MCH 28.4 pg (25.7-33.7); MCHC 32.5 g/dl (32.0-36.0); MEAN CELL VOLUME 87.3 fl (80-96); MEAN PLT VOLUME 8.9 fl (7.5-11.1); MONO % 8.7 % (3.8-10.2); NEUT % 57.1 % (42.8-82.8); PLATELET COUNT 324 K/MM3 (134-434); RBC 4.38 M/mm3 (3.60-5.2); RDW 14.9 % (11.6-15.6)
[2019-12-01 07:44] LABS: ALBUMIN 2.3 g/dl (3.4-5.0); CALCIUM 8.3 mg/dL (8.5-10.1); CREATININE 0.8 mg/dL (0.55-1.3)
[2019-12-01 07:53] LABS: BILIRUBIN,TOTAL 0.4 mg/dL (0.2-1); BLOOD UREA NITROGEN 20.2 mg/dL (7-18); TOT PROT 6.4 g/dl (6.4-8.2)
--- NOTE | 2019-12-01 08:42 | PN ---
Progress Note, Physician Chief Complaint: Dizziness Chest pain History of Present Illness: NAD Denies any chest paina t this time c/o mild dizziness, no nausea reported Seen by Cardiology + Neurology CT head negative UC pending U/S carotid done- mild to moderate plaques without any obstruction - Current Medication List Current Medications: Active Medications Acetaminophen (Tylenol -) 650 mg PO Q4H PRN PRN Reason: PAIN Apixaban (Eliquis -) 5 mg PO BID [facility] Last Admin: 11/30/19 21:17 Dose: 5 mg Documented by: Aspirin (Asa -) 162 mg PO DAILY [facility] Last Admin: 11/30/19 09:32 Dose: 162 mg Documented by: Atorvastatin Calcium (Lipitor -) 10 mg PO HS [facility] Last Admin: 11/30/19 21:16 Dose: 10 mg Documented by: Cyclobenzaprine HCl (Flexeril -) 10 mg PO BID [facility] Last Admin: 11/30/19 21:17 Dose: 10 mg Documented by: Diltiazem HCl (Cardizem Cd -) 120 mg PO DAILY [facility] Last Admin: 11/30/19 09:32 Dose: 120 mg Documented by: Divalproex Sodium 500 mg/ (Divalproex Sodium 250 mg) 750 mg PO BID [facility] Furosemide (Lasix -) 40 mg PO DAILY [facility] Last Admin: 11/30/19 13:38 Dose: 40 mg Documented by: Gabapentin (Neurontin -) 200 mg PO TID [facility] Last Admin: 12/01/19 05:42 Dose: 200 mg Documented by: Ceftriaxone Sodium 1 gm/ (Dextrose) 50 mls @ 100 mls/hr IVPB DAILY [facility]; Protocol Last Admin: 11/30/19 09:33 Dose: 100 mls/hr Documented by: Insulin Aspart (Novolog Vial Sliding Scale -) 1 vial SQ TIDAC [facility]; Protocol Last Admin: 12/01/19 06:03 Dose: Not Given Documented by: Insulin Detemir (Levemir Vial) 20 units SQ DAILY [facility] Last Admin: 11/30/19 09:32 Dose: 20 units Documented by: Meclizine HCl (Antivert -) 25 mg PO TID PRN PRN Reason: VERTIGO Methadone HCl (Dolophine -) 80 mg PO DAILY@0600 [facility] Last Admin: 12/01/19 05:42 Dose: 80 mg Documented by: Metoprolol Succinate (Toprol Xl -) 25 mg PO DAILY [facility] Last Admin: 11/30/19 13:38 Dose: 25 mg Documented by: Multivitamins/Minerals (Theragran-M) 1 each PO DAILY [facility] Last Admin: 11/30/19 09:33 Dose: 1 each Documented by: Ondansetron HCl (Zofran Injection) 4 mg IVPUSH Q6H PRN PRN Reason: NAUSEA AND/OR VOMITING Pantoprazole Sodium (Protonix -) 40 mg PO DAILY [facility] Last Admin: 11/30/19 09:33 Dose: 40 mg Documented by: Potassium Chloride (K-Dur -) 40 meq PO DAILY [facility] Last Admin: 11/30/19 13:37 Dose: 40 meq Documented by: Quetiapine Fumarate (Seroquel -) 50 mg PO BID [facility] Last Admin: 11/30/19 21:16 Dose: 50 mg Documented by: Trazodone HCl (Desyrel -) 100 mg PO [facility] Last Admin: 11/30/19 21:16 Dose: 100 mg Documented by: - Objective Vital Signs: Vital Signs Temperature 98.9 F 12/01/19 05:30 Pulse Rate 69 12/01/19 05:30 Respiratory Rate 20 12/01/19 05:30 Blood Pressure 133/68 12/01/19 05:30 O2 Sat by Pulse Oximetry (%) 94 L 12/01/19 01:09 Constitutional: Yes: Well Nourished, No Distress, Calm, Obese Cardiovascular: Yes: Regular Rate and Rhythm Respiratory: Yes: Regular, CTA Bilaterally Gastrointestinal: Yes: Normal Bowel Sounds, Soft Genitourinary: Yes: WNL Musculoskeletal: Yes: WNL Extremities: Yes: WNL Edema: No Peripheral Pulses WNL: Yes Neurological: Yes: Alert, Oriented Psychiatric: Yes: Alert, Oriented Labs: CBC, BMP 12/01/19 05:48 12/01/19 05:48 INR, PTT INR 1.05 (0.83-1.09) 11/29/19 11:30 Problem List - Problems (1) Diabetes Assessment/Plan: -A1c at 9.0 -BGM AC HS -ISS -Diabetic sodium diet -Levemir 20 U AM -Endocrine consult Problems reviewed: Yes Code(s): E11.9 - TYPE 2 DIABETES MELLITUS WITHOUT COMPLICATIONS (2) Dizziness Assessment/Plan: -Seen by cardiology + Neurology -U/S carotid results no obstruction -Orthostatic BP POSITIVE -Meclizine 25 mg po TID PRN -CT head+ MRI brain unremarkable -Autonomic neuropathy? -D/C Diltiazem -Titrate BB to standing BP Problems reviewed: Yes Code(s): R42 - DIZZINESS AND GIDDINESS (3) Seizure disorder Assessment/Plan: -Depakote increased to 750 mg po bid -Seen by Neurology Problems reviewed: Yes Code(s): G40.909 - EPILEPSY, UNSP, NOT INTRACTABLE, WITHOUT STATUS EPILEPTICUS (4) Hypertension Assessment/Plan: -Continue toprol + Diltiazem -Cardiology on board Problems reviewed: Yes Code(s): I10 - ESSENTIAL (PRIMARY) HYPERTENSION Qualifiers: Hypertension type: essential hypertension Qualified Code(s): I10 - Essential (primary) hypertension (5) Bipolar II disorder Assessment/Plan: -Psychiatric consult -Seroquel increased to 50 mg po BID Problems reviewed: Yes Code(s): F31.81 - BIPOLAR II DISORDER (6) Chest pain Assessment/Plan: -No changes in EKG -No events on Tele -Trops negative -CP resolved at the moment -evaluated by Cardiology- no inpatient workup recommended Problems reviewed: Yes Code(s): R07.9 - CHEST PAIN, UNSPECIFIED (7) CAD (coronary artery disease) Assessment/Plan: -Continue statin + BB+ ASA -Cardiology on board Problems reviewed: Yes Code(s): I25.10 - ATHSCL HEART DISEASE OF [place] CORONARY ARTERY W/O ANG PCTRS (8) Paroxysmal A-fib Assessment/Plan: -Continue Eliquis 5 mg po BID -Controlled + Stable Problems reviewed: Yes Code(s): I48.0 - PAROXYSMAL ATRIAL FIBRILLATION (9) Vertigo Assessment/Plan: -Trial of meclizine 25 mg po tid prn Problems reviewed: Yes Code(s): R42 - DIZZINESS AND GIDDINESS (10) Autonomic neuropathy Problems reviewed: Yes Code(s): G90.9 - DISORDER OF THE AUTONOMIC NERVOUS SYSTEM, UNSPECIFIED (11) UTI (urinary tract infection) Assessment/Plan: -UC: Microbiology 11/29/19 15:15 Urine Culture - Final Urine - Urine Clean Catch Group D Strep Or Entero Coccus -ID on baord -afebrile -IV rocephin Problems reviewed: Yes Code(s): N39.0 - URINARY TRACT INFECTION, SITE NOT SPECIFIED Assessment/Plan See problem list PT
[2019-12-01] MEDS ORDERED: PT OWN MED DRAWER 7, Y5N ONE ×4 (09:21→22:22)
[2019-12-01] MEDS ORDERED: DEXTROSE 5%-WATER - 50 ML IVPB ONE (09:21)
[2019-12-01] MEDS ORDERED: cefTRIAXone SODIUM 1 GM VIAL ONE (09:21)
[2019-12-01] MEDS: APIXABAN 5 MG TABLET PO SCH ×2 (09:31→22:29)
[2019-12-01] MEDS: CEFTRIAXONE 1 GM in DEXTROSE 5%-WATER - 50 ML IVPB SCH (09:31)
[2019-12-01] MEDS: CYCLOBENZAPRINE HCL 10 MG TABLET (FP) PO SCH ×2 (09:31→22:29)
[2019-12-01] MEDS: FUROSEMIDE 40 MG TABLET (FP) PO SCH (09:32)
[2019-12-01] MEDS: INSULIN (LEVEMIR) 100 UNITS/ML UNITS SQ SCH (09:32)
[2019-12-01] MEDS: MULTIVITAMINS THER W-MINERALS COMBO TABLET (FP) PO SCH (09:36)
[2019-12-01] MEDS: PANTOPRAZOLE 40 MG TABLET PO SCH (09:36)
[2019-12-01] MEDS: QUEtiapine FUMARATE 50 MG TABLET PO SCH ×2 (09:36→22:28)
[2019-12-01] MEDS: POTASSIUM CHLORIDE TABS 10 MEQ TABLET.ER (FP) PO SCH (09:36)
[2019-12-01] MEDS: ASPIRIN 81 MG CHEWABLE TABLETS PO SCH (09:36)
[2019-12-01] MEDS: metoPROLOL SUCCINATE 25 MG TAB.SR.24H (FP) PO SCH (09:36)
[2019-12-01] MEDS ORDERED: DIVALPROEX 500 MG, DIVALPROEX 250 MG PO SCH (10:00)
--- NOTE | 2019-12-01 10:20 | PN ---
Progress Note, Physician Chief Complaint: c/o dizziness on standing. tele neg History of Present Illness: 59 y/o female with a history of HTN, HLD, CAD s/p Stent x 2, PAF on eliquis, chronic diastolic CHF, Diabetes Mellitus, COVID 19 + (August 2019), COPD, Polysubstance Abuse (Cocaine, Cannabis, Xanax), Tobacco Dependency, Seizure Disorder, Depression, Hepatitis C admitted with epigastric pain, vomiting, nausea and chest tightness with lightheadedness, for 2 days as well as fever and weakness, lightheadedness and fall. echo 02/07/18 normal EF. noted with UTI. troponin negative she is orthostatic with reproduction of her symptoms today. - Current Medication List Current Medications: Active Medications Acetaminophen (Tylenol -) 650 mg PO Q4H PRN PRN Reason: PAIN Apixaban (Eliquis -) 5 mg PO BID [facility] Last Admin: 12/01/19 09:31 Dose: 5 mg Documented by: Aspirin (Asa -) 162 mg PO DAILY [facility] Last Admin: 12/01/19 09:36 Dose: 162 mg Documented by: Atorvastatin Calcium (Lipitor -) 10 mg PO HS [facility] Last Admin: 11/30/19 21:16 Dose: 10 mg Documented by: Cyclobenzaprine HCl (Flexeril -) 10 mg PO BID [facility] Last Admin: 12/01/19 09:31 Dose: 10 mg Documented by: Diltiazem HCl (Cardizem Cd -) 120 mg PO DAILY [facility] Last Admin: 12/01/19 09:32 Dose: 120 mg Documented by: Divalproex Sodium 500 mg/ (Divalproex Sodium 250 mg) 750 mg PO BID [facility] Last Admin: 12/01/19 09:32 Dose: 750 mg Documented by: Furosemide (Lasix -) 40 mg PO DAILY [facility] Last Admin: 12/01/19 09:32 Dose: 40 mg Documented by: Gabapentin (Neurontin -) 200 mg PO TID [facility] Last Admin: 12/01/19 05:42 Dose: 200 mg Documented by: Ceftriaxone Sodium 1 gm/ (Dextrose) 50 mls @ 100 mls/hr IVPB DAILY [facility]; Protocol Last Admin: 12/01/19 09:31 Dose: 100 mls/hr Documented by: Insulin Aspart (Novolog Vial Sliding Scale -) 1 vial SQ TIDAC [facility]; Protocol Last Admin: 12/01/19 06:03 Dose: Not Given Documented by: Insulin Detemir (Levemir Vial) 20 units SQ DAILY [facility] Last Admin: 12/01/19 09:32 Dose: 20 units Documented by: Meclizine HCl (Antivert -) 25 mg PO TID PRN PRN Reason: VERTIGO Methadone HCl (Dolophine -) 80 mg PO DAILY@0600 [facility] Last Admin: 12/01/19 05:42 Dose: 80 mg Documented by: Metoprolol Succinate (Toprol Xl -) 25 mg PO DAILY [facility] Last Admin: 12/01/19 09:36 Dose: 25 mg Documented by: Multivitamins/Minerals (Theragran-M) 1 each PO DAILY [facility] Last Admin: 12/01/19 09:36 Dose: 1 each Documented by: Ondansetron HCl (Zofran Injection) 4 mg IVPUSH Q6H PRN PRN Reason: NAUSEA AND/OR VOMITING Pantoprazole Sodium (Protonix -) 40 mg PO DAILY [facility] Last Admin: 12/01/19 09:36 Dose: 40 mg Documented by: Potassium Chloride (K-Dur -) 40 meq PO DAILY [facility] Last Admin: 12/01/19 09:36 Dose: 40 meq Documented by: Quetiapine Fumarate (Seroquel -) 50 mg PO BID [facility] Last Admin: 12/01/19 09:36 Dose: 50 mg Documented by: Trazodone HCl (Desyrel -) 100 mg PO HS [facility] Last Admin: 11/30/19 21:16 Dose: 100 mg Documented by: - Objective Vital Signs: Vital Signs Temperature 98.9 F 12/01/19 05:30 Pulse Rate 69 12/01/19 05:30 Respiratory Rate 20 12/01/19 05:30 Blood Pressure 133/68 12/01/19 05:30 O2 Sat by Pulse Oximetry (%) 94 L 12/01/19 01:09 Constitutional: Yes: No Distress, Calm Eyes: Yes: Conjunctiva Clear, EOM Intact HENT: Yes: Normocephalic Neck: Yes: Trachea Midline Cardiovascular: Yes: Regular Rate and Rhythm Respiratory: Yes: CTA Bilaterally Gastrointestinal: Yes: Normal Bowel Sounds, Soft Extremities: Yes: WNL Edema: No Peripheral Pulses WNL: Yes Labs: CBC, BMP 12/01/19 05:48 12/01/19 05:48 INR, PTT INR 1.05 (0.83-1.09) 11/29/19 11:30 Assessment/Plan 59 y/o female with a history of HTN, HLD, CAD s/p Stent x 2, PAF on eliquis, chronic diastolic CHF, Diabetes Mellitus, COVID 19 + (August 2019), COPD, Polysubstance Abuse (Cocaine, Cannabis, Xanax), Tobacco Dependency, Seizure Disorder, Depression, Hepatitis C admitted with epigastric pain, vomiting, nausea and chest tightness with lightheadedness, for 2 days as well as fever and weakness, lightheadedness and fall. echo 02/07/18 normal EF. noted with UTI. troponin negative IMP: -likely orthostasis due to diabetic autonomic neuropathy, exacerbated by infection. -covid negative -no need for inpatient echo -no evidence of ACS. no need for inpatient ischemia workup. -dc telemetry. -stop diltiazem, continue metoprolol. -abx per primary team, needs IVF -orthostatic VS, titrate bp meds to standing bp only. -would not add ACEI/ARB yet until infection is cleared and she is stable off of dilt. -will follow with you.
[2019-12-01] MEDS ORDERED: POLYETHYLENE GLYCOL 3350 119 GM BTL PO SCH (12:15)
[2019-12-01] MEDS: APIXABAN 2.5 MG TABLET PO SCH (18:54)
[2019-12-01] MEDS ORDERED: ACETAMINOPHEN 325 MG TABLET (FP) PO PRN (18:55)
[2019-12-01] MEDS ORDERED: ONDANSETRON 4 MG/2 ML VIAL IVPUSH PRN (18:55)
[2019-12-01] MEDS ORDERED: MECLIZINE HCL 25 MG TABLET (FP) PO PRN (18:55)
[2019-12-01] MEDS: traZODone HCL 50 MG TABLET (FP) PO SCH (22:29)
[2019-12-01] MEDS: ATORVASTATIN CA 10 MG TABLET (FP) PO SCH (22:29)
[2019-12-01] MEDS: DIVALPROEX 500 MG, DIVALPROEX 250 MG PO SCH (22:29)
--- NOTE | 2019-12-01 23:03 | PN ---
Progress Note, Physician Chief Complaint: AWAKE, ALERT OFFERS NO COMPLAINTS AFEBRILE - Current Medication List Current Medications: Active Medications Acetaminophen (Tylenol -) 650 mg PO Q4H PRN PRN Reason: PAIN LEVEL 1 - 3 Apixaban (Eliquis -) 5 mg PO BID [facility] Last Admin: 12/01/19 22:29 Dose: 5 mg Documented by: Aspirin (Asa -) 162 mg PO DAILY [facility] Atorvastatin Calcium (Lipitor -) 10 mg PO HS [facility] Last Admin: 12/01/19 22:29 Dose: 10 mg Documented by: Cyclobenzaprine HCl (Flexeril -) 10 mg PO BID [facility] Last Admin: 12/01/19 22:29 Dose: 10 mg Documented by: Divalproex Sodium 500 mg/ (Divalproex Sodium 250 mg) 750 mg PO BID [facility] Last Admin: 12/01/19 22:29 Dose: 750 mg Documented by: Furosemide (Lasix -) 40 mg PO DAILY [facility] Gabapentin (Neurontin -) 200 mg PO TID [facility] Last Admin: 12/01/19 22:28 Dose: 200 mg Documented by: Ceftriaxone Sodium 1 gm/ (Dextrose) 50 mls @ 100 mls/hr IVPB DAILY [facility]; Protocol Insulin Aspart (Novolog Vial Sliding Scale -) 1 vial SQ TIDAC [facility]; Protocol Insulin Detemir (Levemir Vial) 20 units SQ AM [facility] Meclizine HCl (Antivert -) 25 mg PO TID PRN PRN Reason: VERTIGO Methadone HCl (Dolophine -) 80 mg PO DAILY@0600 [facility] Metoprolol Succinate (Toprol Xl -) 25 mg PO DAILY [facility] Multivitamins/Minerals (Theragran-M) 1 each PO DAILY [facility] Ondansetron HCl (Zofran Injection) 4 mg IVPUSH Q6H PRN PRN Reason: NAUSEA AND/OR VOMITING Pantoprazole Sodium (Protonix -) 40 mg PO DAILY [facility] Polyethylene Glycol (Miralax (For Daily Use) -) 17 gm PO DAILY [facility] Potassium Chloride (K-Dur -) 40 meq PO DAILY [facility] Quetiapine Fumarate (Seroquel -) 50 mg PO BID [facility] Last Admin: 12/01/19 22:28 Dose: 50 mg Documented by: Trazodone HCl (Desyrel -) 100 mg PO [facility] Last Admin: 12/01/19 22:29 Dose: 100 mg Documented by: - Objective Vital Signs: Vital Signs Temperature 98.6 F 12/01/19 21:00 Pulse Rate 70 12/01/19 21:00 Respiratory Rate 18 12/01/19 21:00 Blood Pressure 152/73 12/01/19 21:00 O2 Sat by Pulse Oximetry (%) 96 12/01/19 21:00 Constitutional: Yes: No Distress Eyes: Yes: Conjunctiva Clear Cardiovascular: Yes: Regular Rate and Rhythm, S1, S2 Respiratory: Yes: CTA Bilaterally Gastrointestinal: Yes: Normal Bowel Sounds Edema: LLE: 1+, RLE: 1+ Labs: CBC, BMP 12/01/19 05:48 12/01/19 05:48 INR, PTT INR 1.05 (0.83-1.09) 11/29/19 11:30 Assessment/Plan UTI R/O SEPSIS SECONDARY TO UTI CONTINUE CEFTRIAXONE
[2019-12-02] MEDS ORDERED: INSULIN (NOVOLOG) ASPART 100 UNITS/ML 10ML VIAL ONE (05:57)
[2019-12-02] MEDS: INSULIN SLIDING SCALE (NOVOLOG) 1 VIAL SQ SCH ×3 (06:16→17:00)
[2019-12-02] MEDS: INSULIN (LEVEMIR) 100 UNITS/ML UNITS SQ SCH (06:17)
[2019-12-02] MEDS: METHADONE HCL 40 MG DISPERSABLE TABLET PO SCH (06:18)
[2019-12-02] MEDS: GABAPENTIN 100 MG CAPSULE PO SCH ×3 (06:18→22:04)
[2019-12-02] MEDS ORDERED: DEXTROSE 5%-WATER - 50 ML IVPB ONE (10:20)
[2019-12-02] MEDS ORDERED: cefTRIAXone SODIUM 1 GM VIAL ONE (10:20)
[2019-12-02] MEDS: MULTIVITAMINS THER W-MINERALS COMBO TABLET (FP) PO SCH (10:32)
[2019-12-02] MEDS: QUEtiapine FUMARATE 50 MG TABLET PO SCH ×2 (10:32→22:05)
[2019-12-02] MEDS: PANTOPRAZOLE 40 MG TABLET PO SCH (10:32)
[2019-12-02] MEDS: FUROSEMIDE 40 MG TABLET (FP) PO SCH (10:32)
[2019-12-02] MEDS: POTASSIUM CHLORIDE TABS 10 MEQ TABLET.ER (FP) PO SCH (10:32)
[2019-12-02] MEDS: CYCLOBENZAPRINE HCL 10 MG TABLET (FP) PO SCH ×2 (10:32→22:05)
[2019-12-02] MEDS: metoPROLOL SUCCINATE 25 MG TAB.SR.24H (FP) PO SCH (10:32)
[2019-12-02] MEDS: APIXABAN 5 MG TABLET PO SCH ×2 (10:33→22:04)
[2019-12-02] MEDS: CEFTRIAXONE 1 GM in DEXTROSE 5%-WATER - 50 ML IVPB SCH (10:33)
[2019-12-02] MEDS: POLYETHYLENE GLYCOL 3350 119 GM BTL PO SCH (10:33)
[2019-12-02] MEDS: ASPIRIN 81 MG CHEWABLE TABLETS PO SCH (10:33)
--- NOTE | 2019-12-02 10:56 | PN ---
Progress Note, Physician History of Present Illness: No events Noted Alert off Tele Noted yolis BP numbers with orthostasis - Current Medication List Current Medications: Active Medications Acetaminophen (Tylenol -) 650 mg PO Q4H PRN PRN Reason: PAIN LEVEL 1 - 3 Apixaban (Eliquis -) 5 mg PO BID [facility] Last Admin: 12/02/19 10:33 Dose: 5 mg Documented by: Aspirin (Asa -) 162 mg PO DAILY [facility] Last Admin: 12/02/19 10:33 Dose: 162 mg Documented by: Atorvastatin Calcium (Lipitor -) 10 mg PO HS [facility] Last Admin: 12/01/19 22:29 Dose: 10 mg Documented by: Cyclobenzaprine HCl (Flexeril -) 10 mg PO BID [facility] Last Admin: 12/02/19 10:32 Dose: 10 mg Documented by: Divalproex Sodium 500 mg/ (Divalproex Sodium 250 mg) 750 mg PO BID [facility] Last Admin: 12/01/19 22:29 Dose: 750 mg Documented by: Furosemide (Lasix -) 40 mg PO DAILY [facility] Last Admin: 12/02/19 10:32 Dose: 40 mg Documented by: Gabapentin (Neurontin -) 200 mg PO TID [facility] Last Admin: 12/02/19 06:18 Dose: 200 mg Documented by: Ceftriaxone Sodium 1 gm/ (Dextrose) 50 mls @ 100 mls/hr IVPB DAILY [facility]; Protocol Last Admin: 12/02/19 10:33 Dose: 100 mls/hr Documented by: Insulin Aspart (Novolog Vial Sliding Scale -) 1 vial SQ TIDAC [facility]; Protocol Last Admin: 12/02/19 06:16 Dose: Not Given Documented by: Insulin Detemir (Levemir Vial) 20 units SQ AM [facility] Last Admin: 12/02/19 06:17 Dose: 20 units Documented by: Meclizine HCl (Antivert -) 25 mg PO TID PRN PRN Reason: VERTIGO Methadone HCl (Dolophine -) 80 mg PO DAILY@0600 [facility] Last Admin: 12/02/19 06:18 Dose: 80 mg Documented by: Metoprolol Succinate (Toprol Xl -) 25 mg PO DAILY [facility] Last Admin: 12/02/19 10:32 Dose: 25 mg Documented by: Multivitamins/Minerals (Theragran-M) 1 each PO DAILY [facility] Last Admin: 12/02/19 10:32 Dose: 1 each Documented by: Ondansetron HCl (Zofran Injection) 4 mg IVPUSH Q6H PRN PRN Reason: NAUSEA AND/OR VOMITING Pantoprazole Sodium (Protonix -) 40 mg PO DAILY [facility] Last Admin: 12/02/19 10:32 Dose: 40 mg Documented by: Polyethylene Glycol (Miralax (For Daily Use) -) 17 gm PO DAILY [facility] Last Admin: 12/02/19 10:33 Dose: 17 grams Documented by: Potassium Chloride (K-Dur -) 40 meq PO DAILY [facility] Last Admin: 12/02/19 10:32 Dose: 40 meq Documented by: Quetiapine Fumarate (Seroquel -) 50 mg PO BID [facility] Last Admin: 12/02/19 10:32 Dose: 50 mg Documented by: Trazodone HCl (Desyrel -) 100 mg PO HS [facility] Last Admin: 12/01/19 22:29 Dose: 100 mg Documented by: - Objective Vital Signs: Vital Signs Temperature 98.4 F 12/02/19 05:00 Pulse Rate 64 12/02/19 05:00 Respiratory Rate 18 12/02/19 05:00 Blood Pressure 144/80 12/02/19 05:00 O2 Sat by Pulse Oximetry (%) 98 12/02/19 05:00 Neurological: Yes: Alert, Oriented, Cran Nerves II-XII Intact, Numbness, Paresthesia, Unsteady Gait Labs: CBC, BMP 12/01/19 05:48 12/01/19 05:48 INR, PTT INR 1.05 (0.83-1.09) 11/29/19 11:30 Problem List - Problems (1) Chest pain Code(s): R07.9 - CHEST PAIN, UNSPECIFIED (2) Syncope Code(s): R55 - SYNCOPE AND COLLAPSE (3) Vertigo Code(s): R42 - DIZZINESS AND GIDDINESS (4) Neuropathy Code(s): G62.9 - POLYNEUROPATHY, UNSPECIFIED Assessment/Plan Compression stocking Tight BSL control Fall precautions Follwo up with neurology upon DC
[2019-12-02] MEDS: DIVALPROEX 500 MG, DIVALPROEX 250 MG PO SCH ×2 (11:03→22:05)
--- NOTE | 2019-12-02 13:51 | PN ---
Progress Note, Physician History of Present Illness: seen and examined today in nad. no overnight events. no new complaints. - Current Medication List Current Medications: Active Medications Acetaminophen (Tylenol -) 650 mg PO Q4H PRN PRN Reason: PAIN LEVEL 1 - 3 Apixaban (Eliquis -) 5 mg PO BID [facility] Last Admin: 12/02/19 10:33 Dose: 5 mg Documented by: Aspirin (Asa -) 162 mg PO DAILY [facility] Last Admin: 12/02/19 10:33 Dose: 162 mg Documented by: Atorvastatin Calcium (Lipitor -) 10 mg PO HS [facility] Last Admin: 12/01/19 22:29 Dose: 10 mg Documented by: Cyclobenzaprine HCl (Flexeril -) 10 mg PO BID [facility] Last Admin: 12/02/19 10:32 Dose: 10 mg Documented by: Divalproex Sodium 500 mg/ (Divalproex Sodium 250 mg) 750 mg PO BID [facility] Last Admin: 12/02/19 11:03 Dose: 750 mg Documented by: Furosemide (Lasix -) 40 mg PO DAILY [facility] Last Admin: 12/02/19 10:32 Dose: 40 mg Documented by: Gabapentin (Neurontin -) 200 mg PO TID [facility] Last Admin: 12/02/19 06:18 Dose: 200 mg Documented by: Ceftriaxone Sodium 1 gm/ (Dextrose) 50 mls @ 100 mls/hr IVPB DAILY [facility]; Protocol Last Admin: 12/02/19 10:33 Dose: 100 mls/hr Documented by: Insulin Aspart (Novolog Vial Sliding Scale -) 1 vial SQ TIDAC [facility]; Protocol Last Admin: 12/02/19 10:57 Dose: Not Given Documented by: Insulin Detemir (Levemir Vial) 20 units SQ AM [facility] Last Admin: 12/02/19 06:17 Dose: 20 units Documented by: Meclizine HCl (Antivert -) 25 mg PO TID PRN PRN Reason: VERTIGO Methadone HCl (Dolophine -) 80 mg PO DAILY@0600 [facility] Last Admin: 12/02/19 06:18 Dose: 80 mg Documented by: Metoprolol Succinate (Toprol Xl -) 25 mg PO DAILY [facility] Last Admin: 12/02/19 10:32 Dose: 25 mg Documented by: Multivitamins/Minerals (Theragran-M) 1 each PO DAILY [facility] Last Admin: 12/02/19 10:32 Dose: 1 each Documented by: Ondansetron HCl (Zofran Injection) 4 mg IVPUSH Q6H PRN PRN Reason: NAUSEA AND/OR VOMITING Pantoprazole Sodium (Protonix -) 40 mg PO DAILY [facility] Last Admin: 12/02/19 10:32 Dose: 40 mg Documented by: Polyethylene Glycol (Miralax (For Daily Use) -) 17 gm PO DAILY [facility] Last Admin: 12/02/19 10:33 Dose: 17 grams Documented by: Potassium Chloride (K-Dur -) 40 meq PO DAILY [facility] Last Admin: 12/02/19 10:32 Dose: 40 meq Documented by: Quetiapine Fumarate (Seroquel -) 50 mg PO BID [facility] Last Admin: 12/02/19 10:32 Dose: 50 mg Documented by: Trazodone HCl (Desyrel -) 100 mg PO HS [facility] Last Admin: 12/01/19 22:29 Dose: 100 mg Documented by: - Objective Vital Signs: Vital Signs Temperature 98.6 F 12/02/19 10:00 Pulse Rate 64 12/02/19 10:00 Respiratory Rate 18 12/02/19 10:00 Blood Pressure 129/66 12/02/19 10:00 O2 Sat by Pulse Oximetry (%) 96 12/02/19 10:00 Constitutional: Yes: No Distress, Calm Eyes: Yes: Conjunctiva Clear, EOM Intact HENT: Yes: Atraumatic, Normocephalic Neck: Yes: Supple, Trachea Midline Cardiovascular: Yes: Regular Rate and Rhythm, S1, S2. No: Bradycardia, T achycardia, Pulse Irregular, Bruit, JVD, Gallop, Murmur, Rub, S3, S4, Varicosities Respiratory: Yes: Regular, CTA Bilaterally. No: Rales, Rhonchi, Wheezes Gastrointestinal: Yes: Normal Bowel Sounds, Soft Extremities: Yes: WNL Edema: No Peripheral Pulses WNL: Yes Peripheral Pulses: Left Doralis Pedis: 2+, Right Dorsalis Pedis: 2+ Neurological: Yes: Alert, Oriented Psychiatric: Yes: Alert, Oriented Labs: CBC, BMP 12/01/19 05:48 12/01/19 05:48 INR, PTT INR 1.05 (0.83-1.09) 11/29/19 11:30 - ....Imaging Chest X-ray: Report Reviewed, Image Reviewed EKG: Report Reviewed, Image Reviewed Other: Report Reviewed, Image Reviewed Assessment/Plan 59 y/o female with a history of HTN, HLD, CAD s/p Stent x 2, PAF on eliquis, chronic diastolic CHF, Diabetes Mellitus, COVID 19 + (August 2019), COPD, Polysubstance Abuse (Cocaine, Cannabis, Xanax), Tobacco Dependency, Seizure Disorder, Depression, Hepatitis C admitted with epigastric pain, vomiting, nausea and chest tightness with lightheadedness, for 2 days as well as fever and weakness, lightheadedness and fall. echo 02/07/18 normal EF. noted with UTI. troponin negative IMP: -likely orthostasis due to diabetic autonomic neuropathy, exacerbated by infection. -orthostatic BP did show a significant drop with standing -advised slow rise from a seated/lying position and to sit/lie down immediately if lightheaded -maintain adequate hydration -can give trial of compression stockings as outpatient -covid negative -no need for inpatient echo -no evidence of ACS. no need for inpatient ischemia workup. -continue metoprolol. -outpatient fup. -no other inpatient cardiac work up is needed at this time. will see as needed. please call with any questions.
--- NOTE | 2019-12-02 14:41 | PN ---
Progress Note, Physician Chief Complaint: ASLEEP EVENTS AND NOTES REVIEWED - Current Medication List Current Medications: Active Medications Acetaminophen (Tylenol -) 650 mg PO Q4H PRN PRN Reason: PAIN LEVEL 1 - 3 Apixaban (Eliquis -) 5 mg PO BID [facility] Last Admin: 12/02/19 10:33 Dose: 5 mg Documented by: Aspirin (Asa -) 162 mg PO DAILY [facility] Last Admin: 12/02/19 10:33 Dose: 162 mg Documented by: Atorvastatin Calcium (Lipitor -) 10 mg PO HS [facility] Last Admin: 12/01/19 22:29 Dose: 10 mg Documented by: Cyclobenzaprine HCl (Flexeril -) 10 mg PO BID [facility] Last Admin: 12/02/19 10:32 Dose: 10 mg Documented by: Divalproex Sodium 500 mg/ (Divalproex Sodium 250 mg) 750 mg PO BID [facility] Last Admin: 12/02/19 11:03 Dose: 750 mg Documented by: Furosemide (Lasix -) 40 mg PO DAILY [facility] Last Admin: 12/02/19 10:32 Dose: 40 mg Documented by: Gabapentin (Neurontin -) 200 mg PO TID [facility] Last Admin: 12/02/19 14:36 Dose: 200 mg Documented by: Ceftriaxone Sodium 1 gm/ (Dextrose) 50 mls @ 100 mls/hr IVPB DAILY [facility]; Protocol Last Admin: 12/02/19 10:33 Dose: 100 mls/hr Documented by: Insulin Aspart (Novolog Vial Sliding Scale -) 1 vial SQ TIDAC [facility]; Protocol Last Admin: 12/02/19 10:57 Dose: Not Given Documented by: Insulin Detemir (Levemir Vial) 20 units SQ AM [facility] Last Admin: 12/02/19 06:17 Dose: 20 units Documented by: Meclizine HCl (Antivert -) 25 mg PO TID PRN PRN Reason: VERTIGO Methadone HCl (Dolophine -) 80 mg PO DAILY@0600 [facility] Last Admin: 12/02/19 06:18 Dose: 80 mg Documented by: Metoprolol Succinate (Toprol Xl -) 25 mg PO DAILY [facility] Last Admin: 12/02/19 10:32 Dose: 25 mg Documented by: Multivitamins/Minerals (Theragran-M) 1 each PO DAILY [facility] Last Admin: 12/02/19 10:32 Dose: 1 each Documented by: Ondansetron HCl (Zofran Injection) 4 mg IVPUSH Q6H PRN PRN Reason: NAUSEA AND/OR VOMITING Pantoprazole Sodium (Protonix -) 40 mg PO DAILY [facility] Last Admin: 12/02/19 10:32 Dose: 40 mg Documented by: Polyethylene Glycol (Miralax (For Daily Use) -) 17 gm PO DAILY [facility] Last Admin: 12/02/19 10:33 Dose: 17 grams Documented by: Potassium Chloride (K-Dur -) 40 meq PO DAILY [facility] Last Admin: 12/02/19 10:32 Dose: 40 meq Documented by: Quetiapine Fumarate (Seroquel -) 50 mg PO BID [facility] Last Admin: 12/02/19 10:32 Dose: 50 mg Documented by: Trazodone HCl (Desyrel -) 100 mg PO HS [facility] Last Admin: 12/01/19 22:29 Dose: 100 mg Documented by: - Objective Vital Signs: Vital Signs Temperature 98.6 F 12/02/19 10:00 Pulse Rate 64 12/02/19 10:00 Respiratory Rate 18 12/02/19 10:00 Blood Pressure 129/66 12/02/19 10:00 O2 Sat by Pulse Oximetry (%) 96 12/02/19 10:00 Constitutional: Yes: No Distress Cardiovascular: Yes: Regular Rate and Rhythm Respiratory: Yes: On Nasal O2 Gastrointestinal: Yes: Soft, Abdomen, Obese Genitourinary: Yes: WNL Musculoskeletal: Yes: Muscle Weakness Neurological: Yes: Pre-Existing Deficit Labs: CBC, BMP 12/01/19 05:48 12/01/19 05:48 INR, PTT INR 1.05 (0.83-1.09) 11/29/19 11:30 Problem List - Problems (1) Autonomic neuropathy Code(s): G90.9 - DISORDER OF THE AUTONOMIC NERVOUS SYSTEM, UNSPECIFIED (2) Diabetes Code(s): E11.9 - TYPE 2 DIABETES MELLITUS WITHOUT COMPLICATIONS (3) Dizziness Code(s): R42 - DIZZINESS AND GIDDINESS (4) Syncope Code(s): R55 - SYNCOPE AND COLLAPSE (5) ASHD (arteriosclerotic heart disease) Code(s): I25.10 - ATHSCL HEART DISEASE OF [place] CORONARY ARTERY W/O ANG PCTRS (6) Cocaine abuse Code(s): F14.10 - COCAINE ABUSE, UNCOMPLICATED (7) Diabetic gastroparesis Code(s): E11.43 - TYPE 2 DIABETES W DIABETIC AUTONOMIC (POLY)NEUROPATHY; K31.84 - GASTROPARESIS (8) Opioid dependence Code(s): F11.20 - OPIOID DEPENDENCE, UNCOMPLICATED Qualifiers: Substance use status: in withdrawal Qualified Code(s): F11.23 - Opioid dependence with withdrawal (9) Type 2 diabetes mellitus with other circulatory complications Code(s): E11.59 - TYPE 2 DIABETES MELLITUS WITH OTH CIRCULATORY COMPLICATIONS (10) UTI (urinary tract infection) Code(s): N39.0 - URINARY TRACT INFECTION, SITE NOT SPECIFIED (11) Bipolar II disorder Code(s): F31.81 - BIPOLAR II DISORDER (12) Hypertension Code(s): I10 - ESSENTIAL (PRIMARY) HYPERTENSION Qualifiers: Hypertension type: essential hypertension Qualified Code(s): I10 - Essential (primary) hypertension (13) Nicotine dependence Code(s): F17.200 - NICOTINE DEPENDENCE, UNSPECIFIED, UNCOMPLICATED (14) Seizure disorder Code(s): G40.909 - EPILEPSY, UNSP, NOT INTRACTABLE, WITHOUT STATUS EPILEPTICUS Assessment/Plan IV ABX PER ID PAIN CONTROL NEUROLOGY AND CARDIOLOGY EVAL APPRECIATED OFF TELEMETRY ON MED/SURG PT EVAL NEEDS COUNCELING AND SUPPORT OUTPATIENT H/O NON-COMPLIANT HAS NOT SEEN ME IN 2 YEARS IN MY OFFICE AT [facility] 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
[2019-12-02] MEDS ORDERED: PT OWN MED DRAWER 7, Y5N ONE (17:49)
[2019-12-02] MEDS: traZODone HCL 50 MG TABLET (FP) PO SCH (22:04)
[2019-12-02] MEDS: ATORVASTATIN CA 10 MG TABLET (FP) PO SCH (22:05)
[2019-12-03] MEDS: GABAPENTIN 100 MG CAPSULE PO SCH ×3 (06:19→22:27)
[2019-12-03] MEDS: INSULIN (LEVEMIR) 100 UNITS/ML UNITS SQ SCH (06:19)
[2019-12-03] MEDS: METHADONE HCL 40 MG DISPERSABLE TABLET PO SCH (06:20)
[2019-12-03] MEDS: INSULIN SLIDING SCALE (NOVOLOG) 1 VIAL SQ SCH ×3 (06:20→17:14)
[2019-12-03 08:23] LABS: HEMOGLOBIN 12.7 GM/dL (10.7-15.3); MCH 28.1 pg (25.7-33.7); MCHC 31.8 g/dl (32.0-36.0); MEAN CELL VOLUME 88.3 fl (80-96); MEAN PLT VOLUME 9.4 fl (7.5-11.1); PLATELET COUNT 290 K/MM3 (134-434); RBC 4.53 M/mm3 (3.60-5.2); RDW 15.1 % (11.6-15.6); WHITE BLOOD COUNT 9.5 K/mm3 (4.0-10.0)
[2019-12-03 08:35] LABS: BLOOD UREA NITROGEN 20.1 mg/dL (7-18); CALCIUM 8.5 mg/dL (8.5-10.1); CREATININE 0.7 mg/dL (0.55-1.3); MAGNESIUM 1.9 mg/dL (1.8-2.4)
--- NOTE | 2019-12-03 09:35 | PN ---
Progress Note, Physician Chief Complaint: AWAKE ALERT C/O CONSTIPATION - Current Medication List Current Medications: Active Medications Acetaminophen (Tylenol -) 650 mg PO Q4H PRN PRN Reason: PAIN LEVEL 1 - 3 Last Admin: 12/03/19 06:27 Dose: 650 mg Documented by: Apixaban (Eliquis -) 5 mg PO BID [facility] Last Admin: 12/02/19 22:04 Dose: 5 mg Documented by: Aspirin (Asa -) 162 mg PO DAILY [facility] Last Admin: 12/02/19 10:33 Dose: 162 mg Documented by: Atorvastatin Calcium (Lipitor -) 10 mg PO HS [facility] Last Admin: 12/02/19 22:05 Dose: 10 mg Documented by: Cyclobenzaprine HCl (Flexeril -) 10 mg PO BID [facility] Last Admin: 12/02/19 22:05 Dose: 10 mg Documented by: Divalproex Sodium 500 mg/ (Divalproex Sodium 250 mg) 750 mg PO BID [facility] Last Admin: 12/02/19 22:05 Dose: 750 mg Documented by: Furosemide (Lasix -) 40 mg PO DAILY [facility] Last Admin: 12/02/19 10:32 Dose: 40 mg Documented by: Gabapentin (Neurontin -) 200 mg PO TID [facility] Last Admin: 12/03/19 06:19 Dose: 200 mg Documented by: Ceftriaxone Sodium 1 gm/ (Dextrose) 50 mls @ 100 mls/hr IVPB DAILY [facility]; Protocol Last Admin: 12/02/19 10:33 Dose: 100 mls/hr Documented by: Insulin Aspart (Novolog Vial Sliding Scale -) 1 vial SQ TIDAC [facility]; Protocol Last Admin: 12/03/19 06:20 Dose: Not Given Documented by: Insulin Detemir (Levemir Vial) 20 units SQ AM [facility] Last Admin: 12/03/19 06:19 Dose: 20 units Documented by: Meclizine HCl (Antivert -) 25 mg PO TID PRN PRN Reason: VERTIGO Methadone HCl (Dolophine -) 80 mg PO DAILY@0600 [facility] Last Admin: 12/03/19 06:20 Dose: 80 mg Documented by: Metoprolol Succinate (Toprol Xl -) 25 mg PO DAILY [facility] Last Admin: 12/02/19 10:32 Dose: 25 mg Documented by: Multivitamins/Minerals (Theragran-M) 1 each PO DAILY [facility] Last Admin: 12/02/19 10:32 Dose: 1 each Documented by: Ondansetron HCl (Zofran Injection) 4 mg IVPUSH Q6H PRN PRN Reason: NAUSEA AND/OR VOMITING Pantoprazole Sodium (Protonix -) 40 mg PO DAILY [facility] Last Admin: 12/02/19 10:32 Dose: 40 mg Documented by: Polyethylene Glycol (Miralax (For Daily Use) -) 17 gm PO DAILY [facility] Last Admin: 12/02/19 10:33 Dose: 17 grams Documented by: Potassium Chloride (K-Dur -) 40 meq PO DAILY [facility] Last Admin: 12/02/19 10:32 Dose: 40 meq Documented by: Quetiapine Fumarate (Seroquel -) 50 mg PO BID [facility] Last Admin: 12/02/19 22:05 Dose: 50 mg Documented by: Trazodone HCl (Desyrel -) 100 mg PO HS [facility] Last Admin: 12/02/19 22:04 Dose: 100 mg Documented by: - Objective Vital Signs: Vital Signs Temperature 98.4 F 12/03/19 06:00 Pulse Rate 74 12/03/19 06:00 Respiratory Rate 18 12/03/19 06:00 Blood Pressure 132/69 12/03/19 06:00 O2 Sat by Pulse Oximetry (%) 93 L 12/03/19 06:00 Constitutional: Yes: Mild Distress Cardiovascular: Yes: Regular Rate and Rhythm Respiratory: Yes: WNL Gastrointestinal: Yes: WNL Genitourinary: Yes: WNL Musculoskeletal: Yes: Back Pain, Muscle Weakness Labs: CBC, BMP 12/03/19 06:55 12/03/19 06:55 INR, PTT INR 1.05 (0.83-1.09) 11/29/19 11:30 Problem List - Problems (1) Autonomic neuropathy Code(s): G90.9 - DISORDER OF THE AUTONOMIC NERVOUS SYSTEM, UNSPECIFIED (2) Diabetes Code(s): E11.9 - TYPE 2 DIABETES MELLITUS WITHOUT COMPLICATIONS (3) Dizziness Code(s): R42 - DIZZINESS AND GIDDINESS (4) Syncope Code(s): R55 - SYNCOPE AND COLLAPSE (5) ASHD (arteriosclerotic heart disease) Code(s): I25.10 - ATHSCL HEART DISEASE OF [place] CORONARY ARTERY W/O ANG PCTRS (6) Cocaine abuse Code(s): F14.10 - COCAINE ABUSE, UNCOMPLICATED (7) Diabetic gastroparesis Code(s): E11.43 - TYPE 2 DIABETES W DIABETIC AUTONOMIC (POLY)NEUROPATHY; K31.84 - GASTROPARESIS (8) Opioid dependence Code(s): F11.20 - OPIOID DEPENDENCE, UNCOMPLICATED Qualifiers: Substance use status: in withdrawal Qualified Code(s): F11.23 - Opioid dependence with withdrawal (9) Type 2 diabetes mellitus with other circulatory complications Code(s): E11.59 - TYPE 2 DIABETES MELLITUS WITH OTH CIRCULATORY COMPLICATIONS (10) UTI (urinary tract infection) Code(s): N39.0 - URINARY TRACT INFECTION, SITE NOT SPECIFIED (11) Bipolar II disorder Code(s): F31.81 - BIPOLAR II DISORDER (12) Hypertension Code(s): I10 - ESSENTIAL (PRIMARY) HYPERTENSION Qualifiers: Hypertension type: essential hypertension Qualified Code(s): I10 - Essential (primary) hypertension (13) Nicotine dependence Code(s): F17.200 - NICOTINE DEPENDENCE, UNSPECIFIED, UNCOMPLICATED (14) Seizure disorder Code(s): G40.909 - EPILEPSY, UNSP, NOT INTRACTABLE, WITHOUT STATUS EPILEPTICUS Assessment/Plan IV ABX PER ID PAIN CONTROL NEUROLOGY AND CARDIOLOGY EVAL APPRECIATED OFF TELEMETRY ON MED/SURG PT EVAL NEEDS COUNCELING AND SUPPORT OUTPATIENT H/O NON-COMPLIANT HAS NOT SEEN ME IN 2 YEARS IN MY OFFICE AT [facility] 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
[2019-12-03] MEDS ORDERED: PT OWN MED DRAWER 7, Y5N ONE ×4 (09:41→18:46)
[2019-12-03] MEDS ORDERED: cefTRIAXone SODIUM 1 GM VIAL ONE (09:41)
[2019-12-03] MEDS ORDERED: DEXTROSE 5%-WATER - 50 ML IVPB ONE (09:42)
[2019-12-03] MEDS: ASPIRIN 81 MG CHEWABLE TABLETS PO SCH (09:51)
[2019-12-03] MEDS: CYCLOBENZAPRINE HCL 10 MG TABLET (FP) PO SCH ×2 (09:51→22:28)
[2019-12-03] MEDS: MULTIVITAMINS THER W-MINERALS COMBO TABLET (FP) PO SCH (09:51)
[2019-12-03] MEDS: CEFTRIAXONE 1 GM in DEXTROSE 5%-WATER - 50 ML IVPB SCH (09:51)
[2019-12-03] MEDS: PANTOPRAZOLE 40 MG TABLET PO SCH (09:51)
[2019-12-03] MEDS: POTASSIUM CHLORIDE TABS 10 MEQ TABLET.ER (FP) PO SCH (09:52)
[2019-12-03] MEDS: FUROSEMIDE 40 MG TABLET (FP) PO SCH (09:52)
[2019-12-03] MEDS: DIVALPROEX 500 MG, DIVALPROEX 250 MG PO SCH ×2 (09:52→22:28)
[2019-12-03] MEDS: QUEtiapine FUMARATE 50 MG TABLET PO SCH ×2 (09:52→22:28)
[2019-12-03] MEDS: metoPROLOL SUCCINATE 25 MG TAB.SR.24H (FP) PO SCH (09:52)
[2019-12-03] MEDS: APIXABAN 5 MG TABLET PO SCH ×2 (09:52→22:27)
[2019-12-03] MEDS: POLYETHYLENE GLYCOL 3350 119 GM BTL PO SCH (09:53)
[2019-12-03] MEDS ORDERED: MAGNESIUM HYDROX 2400MG/30ML ORAL SUSPENSION 30 ML CUP PO PRN (10:04)
[2019-12-03] MEDS ORDERED: INSULIN (LEVEMIR) 100 UNITS/ML UNITS SQ ONE (17:23)
[2019-12-03] MEDS: traZODone HCL 50 MG TABLET (FP) PO SCH (22:27)
[2019-12-03] MEDS: ATORVASTATIN CA 10 MG TABLET (FP) PO SCH (22:28)
[2019-12-04] MEDS: METHADONE HCL 40 MG DISPERSABLE TABLET PO SCH (06:48)
[2019-12-04] MEDS: GABAPENTIN 100 MG CAPSULE PO SCH ×2 (06:48→14:14)
[2019-12-04] MEDS: INSULIN (LEVEMIR) 100 UNITS/ML UNITS SQ SCH (06:49)
[2019-12-04] MEDS: INSULIN SLIDING SCALE (NOVOLOG) 1 VIAL SQ SCH ×2 (06:50→12:07)
[2019-12-04] MEDS ORDERED: INSULIN (NOVOLOG) ASPART 100 UNITS/ML 10ML VIAL ONE (07:25)
[2019-12-04] MEDS ORDERED: INSULIN (LEVEMIR) 100 UNITS/ML UNITS SQ ONE (07:26)
[2019-12-04] MEDS ORDERED: cefTRIAXone SODIUM 1 GM VIAL ONE (09:20)
[2019-12-04] MEDS ORDERED: DEXTROSE 5%-WATER - 50 ML IVPB ONE (09:20)
[2019-12-04] MEDS ORDERED: PT OWN MED DRAWER 7, Y5N ONE (09:20)
[2019-12-04] MEDS: metoPROLOL SUCCINATE 25 MG TAB.SR.24H (FP) PO SCH (09:29)
[2019-12-04] MEDS: FUROSEMIDE 40 MG TABLET (FP) PO SCH (09:30)
[2019-12-04] MEDS: PANTOPRAZOLE 40 MG TABLET PO SCH (09:34)
[2019-12-04] MEDS: CYCLOBENZAPRINE HCL 10 MG TABLET (FP) PO SCH (09:34)
[2019-12-04] MEDS: ASPIRIN 81 MG CHEWABLE TABLETS PO SCH (09:34)
[2019-12-04] MEDS: QUEtiapine FUMARATE 50 MG TABLET PO SCH (09:34)
[2019-12-04] MEDS: MULTIVITAMINS THER W-MINERALS COMBO TABLET (FP) PO SCH (09:34)
[2019-12-04] MEDS: POTASSIUM CHLORIDE TABS 10 MEQ TABLET.ER (FP) PO SCH (09:34)
[2019-12-04] MEDS: DIVALPROEX 500 MG, DIVALPROEX 250 MG PO SCH (09:35)
[2019-12-04] MEDS: APIXABAN 5 MG TABLET PO SCH (09:35)
[2019-12-04] MEDS: CEFTRIAXONE 1 GM in DEXTROSE 5%-WATER - 50 ML IVPB SCH (09:36)
[2019-12-04] MEDS: POLYETHYLENE GLYCOL 3350 119 GM BTL PO SCH (09:38)
--- NOTE | 2019-12-04 10:21 | DS ---
Physical Examination Vital Signs: Vital Signs Temperature 98.7 F 12/04/19 06:00 Pulse Rate 72 12/04/19 06:00 Respiratory Rate 18 12/04/19 06:00 Blood Pressure 160/73 12/04/19 06:00 O2 Sat by Pulse Oximetry (%) 97 12/04/19 06:00 Findings/Remarks: This is a 59 y/o female with a PMHx of HTN, HLD, CAD s/p Stent, CHF, Diabetes Mellitus, COVID 19 + (August 2019), COPD, Polysubstance Abuse (Cocaine, Cannabis, Xanax), Tobacco Dependency, Seizure Disorder, Depression, Hepatitis C. Who presents to the ED with intermittent chest tightness worse with movement, lightheadedness, N/V x 2 days. Patient reports subjective fever 101.0 with a non-productive cough, vertigo symptoms x 2 days. (1) Diabetes Assessment/Plan: -A1c at 9.0 -BGM AC HS -ISS -Diabetic sodium diet -Levemir 40 U AM outpatient -Continue Meformin 500 mg po bid o/p -Endocrine consult Problems reviewed: Yes Code(s): E11.9 - TYPE 2 DIABETES MELLITUS WITHOUT COMPLICATIONS (2) Dizziness Assessment/Plan: -Seen by cardiology + Neurology -U/S carotid results no obstruction -Orthostatic BP POSITIVE -Meclizine 25 mg po TID PRN -CT head+ MRI brain unremarkable -Autonomic neuropathy? -D/C Diltiazem -Titrate BB to standing BP -D/C diltiazem Problems reviewed: Yes Code(s): R42 - DIZZINESS AND GIDDINESS (3) Seizure disorder Assessment/Plan: -Depakote increased to 750 mg po bid -Seen by Neurology Problems reviewed: Yes Code(s): G40.909 - EPILEPSY, UNSP, NOT INTRACTABLE, WITHOUT STATUS EPILEPTICUS (4) Hypertension Assessment/Plan: -Continue toprol -Cardiology on board Problems reviewed: Yes Code(s): I10 - ESSENTIAL (PRIMARY) HYPERTENSION Qualifiers: Hypertension type: essential hypertension Qualified Code(s): I10 - Essential (primary) hypertension (5) Bipolar II disorder Assessment/Plan: -Psychiatric consult -Seroquel increased to 50 mg po BID Problems reviewed: Yes Code(s): F31.81 - BIPOLAR II DISORDER (6) Chest pain Assessment/Plan: -No changes in EKG -No events when on tele -Trops negative -CP resolved at the moment -evaluated by Cardiology- no inpatient workup recommended Problems reviewed: Yes Code(s): R07.9 - CHEST PAIN, UNSPECIFIED (7) CAD (coronary artery disease) Assessment/Plan: -Continue statin + BB+ ASA -Cardiology on board- FOLLOW UP OUTPATIENT Problems reviewed: Yes Code(s): I25.10 - ATHSCL HEART DISEASE OF [place] CORONARY ARTERY W/O ANG PCTRS (8) Paroxysmal A-fib Assessment/Plan: -Continue Eliquis 5 mg po BID -Controlled + Stable Problems reviewed: Yes Code(s): I48.0 - PAROXYSMAL ATRIAL FIBRILLATION (9) Vertigo Assessment/Plan: -Trial of meclizine 25 mg po tid prn Problems reviewed: Yes Code(s): R42 - DIZZINESS AND GIDDINESS (10) Autonomic neuropathy Problems reviewed: Yes Code(s): G90.9 - DISORDER OF THE AUTONOMIC NERVOUS SYSTEM, UNSPECIFIED (11) UTI (urinary tract infection) Assessment/Plan: -UC: Microbiology 11/29/19 15:15 Urine Culture - Final Urine - Urine Clean Catch Group D Strep Or Entero Coccus -ID on baord -afebrile -Received IV rocephin for 5 days---transition to ceftin 500 mg po bid x 5 days Problems reviewed: Yes Code(s): N39.0 - URINARY TRACT INFECTION, SITE NOT SPECIFIED Assessment/Plan See problem list PT Constitutional: Yes: Well Nourished, No Distress, Calm, Obese Cardiovascular: Yes: Regular Rate and Rhythm Respiratory: Yes: Regular, CTA Bilaterally Gastrointestinal: Yes: Normal Bowel Sounds, Soft, Abdomen, Obese Renal/: Yes: WNL Musculoskeletal: Yes: WNL Extremities: Yes: WNL Edema: No Peripheral Pulses WNL: Yes Neurological: Yes: Alert, Oriented Psychiatric: Yes: Alert, Oriented Labs: CBC, BMP 12/03/19 06:55 12/03/19 06:55 Discharge Summary Problems reviewed: Yes Reason For Visit: VERTIGO CHEST PAIN Current Active Problems Autonomic neuropathy (Acute) Chest pain (Acute) Diabetes (Acute) Dizziness (Acute) Encounter for screening laboratory testing for COVID-19 virus (Acute) Syncope (Acute) Vertigo (Acute) Condition: Stable - Instructions Referrals: Zuhair Asher MD [Staff Physician] - Lalo Bruner MD [Staff Physician] - Ana Archer [Primary Care Provider] - Disposition: VNS/HOME HEALTH CARE - Home Medications Comprehensive Discharge Medication List: Ambulatory Orders Aspirin [ASA -] 162 mg PO DAILY 08/19/18 Cyclobenzaprine HCl 10 mg PO BID 08/19/18 Diltiazem Cd [Cardizem Cd -] 120 mg PO DAILY 08/19/18 Divalproex Sodium [Depakote ER] 500 mg PO BID 08/19/18 Folic Acid/Multivit-Min/Lutein [Multi-Vitamin Gummies] 1 each PO DAILY 08/19/18 Furosemide [Lasix -] 20 mg PO DAILY 08/19/18 Gabapentin 200 mg PO TID 08/19/18 Insulin Glargine,Hum.rec.anlog [Basaglar Kwikpen U-100] 20 unit SQ DAILY 08/19/18 Lipase/Protease/Amylase [Creon Dr 36,000 Units Capsule] 1 each PO TID 08/19/18 Metformin HCl [Glucophage] 500 mg PO BID 08/19/18 Pantoprazole Sodium 40 mg PO DAILY 08/19/18 Potassium Chloride 20 meq PO DAILY 08/19/18 Quetiapine Fumarate [Seroquel -] 25 mg PO BID 08/19/18 Simvastatin [Zocor -] 10 mg PO HS 08/19/18 traZODone HCL [Trazodone HCl] 100 mg PO HS 08/19/18 Apixaban [Eliquis] 2.5 mg PO BID #28 tablet 08/27/19 Prednisone [Prednisone 50 MG TABLETS] 50 mg PO DAILY #5 tablet 08/27/19 Methadone [Dolophine -] 80 mg PO DAILY 11/29/19 Insulin Glargine,Hum.rec.anlog [Basaglar Kwikpen U-100] 100 unit SQ DAILY 11/30/19 Metoprolol Succinate 25 mg PO DAILY 11/30/19 Prescription Drug Monitoring Program (I-STOP) results: I-STOP reviewed and no issues identified
[2019-12-04 12:14] VITALS: BP 145/81; PULSE 96; TEMP 98.3
--- NOTE | 2019-12-04 13:34 | PN ---
Progress Note, Physician Chief Complaint: AWAKE, ALERT OFFERS NO COMPLAINTS DENIES DYSURIA NO SUPRAPUBIC OR FLANK PAIN AFEBRILE - Current Medication List Current Medications: Active Medications Acetaminophen (Tylenol -) 650 mg PO Q4H PRN PRN Reason: PAIN LEVEL 1 - 3 Last Admin: 12/03/19 06:27 Dose: 650 mg Documented by: Apixaban (Eliquis -) 5 mg PO BID [facility] Last Admin: 12/04/19 09:35 Dose: 5 mg Documented by: Aspirin (Asa -) 162 mg PO DAILY [facility] Last Admin: 12/04/19 09:34 Dose: 162 mg Documented by: Atorvastatin Calcium (Lipitor -) 10 mg PO HS [facility] Last Admin: 12/03/19 22:28 Dose: 10 mg Documented by: Cyclobenzaprine HCl (Flexeril -) 10 mg PO BID [facility] Last Admin: 12/04/19 09:34 Dose: 10 mg Documented by: Divalproex Sodium 500 mg/ (Divalproex Sodium 250 mg) 750 mg PO BID [facility] Last Admin: 12/04/19 09:35 Dose: 750 mg Documented by: Furosemide (Lasix -) 40 mg PO DAILY [facility] Last Admin: 12/04/19 09:30 Dose: 40 mg Documented by: Gabapentin (Neurontin -) 200 mg PO TID [facility] Last Admin: 12/04/19 06:48 Dose: 200 mg Documented by: Ceftriaxone Sodium 1 gm/ (Dextrose) 50 mls @ 100 mls/hr IVPB DAILY [facility]; Protocol Last Admin: 12/04/19 09:36 Dose: 100 mls/hr Documented by: Insulin Aspart (Novolog Vial Sliding Scale -) 1 vial SQ TIDAC [facility]; Protocol Last Admin: 12/04/19 12:07 Dose: Not Given Documented by: Insulin Detemir (Levemir Vial) 20 units SQ AM [facility] Last Admin: 12/04/19 06:49 Dose: 20 units Documented by: Magnesium Hydroxide (Milk Of Magnesia -) 30 ml PO Q8H PRN PRN Reason: INDIGESTION Last Admin: 12/03/19 10:38 Dose: 30 ml Documented by: Meclizine HCl (Antivert -) 25 mg PO TID PRN PRN Reason: VERTIGO Methadone HCl (Dolophine -) 80 mg PO DAILY@0600 [facility] Last Admin: 12/04/19 06:48 Dose: 80 mg Documented by: Metoprolol Succinate (Toprol Xl -) 25 mg PO DAILY [facility] Last Admin: 12/04/19 09:29 Dose: 25 mg Documented by: Multivitamins/Minerals (Theragran-M) 1 each PO DAILY [facility] Last Admin: 12/04/19 09:34 Dose: 1 each Documented by: Ondansetron HCl (Zofran Injection) 4 mg IVPUSH Q6H PRN PRN Reason: NAUSEA AND/OR VOMITING Pantoprazole Sodium (Protonix -) 40 mg PO DAILY [facility] Last Admin: 12/04/19 09:34 Dose: 40 mg Documented by: Polyethylene Glycol (Miralax (For Daily Use) -) 17 gm PO DAILY [facility] Last Admin: 12/04/19 09:38 Dose: 17 grams Documented by: Potassium Chloride (K-Dur -) 40 meq PO DAILY [facility] Last Admin: 12/04/19 09:34 Dose: 40 meq Documented by: Quetiapine Fumarate (Seroquel -) 50 mg PO BID [facility] Last Admin: 12/04/19 09:34 Dose: 50 mg Documented by: Trazodone HCl (Desyrel -) 100 mg PO HS [facility] Last Admin: 12/03/19 22:27 Dose: 100 mg Documented by: - Objective Vital Signs: Vital Signs Temperature 98.3 F 12/04/19 10:00 Pulse Rate 96 H 12/04/19 10:00 Respiratory Rate 20 12/04/19 10:00 Blood Pressure 145/81 12/04/19 10:00 O2 Sat by Pulse Oximetry (%) 98 12/04/19 10:00 Constitutional: Yes: No Distress Eyes: Yes: Conjunctiva Clear Cardiovascular: Yes: Regular Rate and Rhythm, S1, S2 Respiratory: Yes: Diminished Gastrointestinal: Yes: Normal Bowel Sounds, Soft, Abdomen, Obese. No: Tende rness Labs: CBC, BMP 12/03/19 06:55 12/03/19 06:55 INR, PTT INR 1.05 (0.83-1.09) 11/29/19 11:30 Assessment/Plan UTI R/O SEPSIS SECONDARY TO UTI LEUKOCYTOSIS RESOLVED + URINE C/S LIKELY CONTAMINANT SUBSTITUTE CEFTIN 500MG PO BID X 5D
== END 2019-12-04 16:14 | disposition home health service (06) | DRG 463 ==
LOC: JER 10:41 → JERBED 15:56 → J4W 17:13 → J8W 12-01 18:30
PROVIDERS: ADMIT Family Medicine; ATTEND Family Medicine
DX: N39.0 Urinary tract infection, site not specified (principal); I11.0 Hypertensive heart disease with heart failure; F11.20 Opioid dependence, uncomplicated; I48.0 Paroxysmal atrial fibrillation; I50.32 Chronic diastolic (congestive) heart failure; E11.43 Type 2 diabetes mellitus with diabetic autonomic (poly)neuropathy; F12.10 Cannabis abuse, uncomplicated; J44.9 Chronic obstructive pulmonary disease, unspecified; F32.9 Major depressive disorder, single episode, unspecified; I25.10 Atherosclerotic heart disease of native coronary artery without angina pectoris; B19.20 Unspecified viral hepatitis C without hepatic coma; F14.10 Cocaine abuse, uncomplicated; Z86.19 Personal history of other infectious and parasitic diseases; E78.5 Hyperlipidemia, unspecified; Z79.4 Long term (current) use of insulin; F17.210 Nicotine dependence, cigarettes, uncomplicated; G40.909 Epilepsy, unspecified, not intractable, without status epilepticus; E66.9 Obesity, unspecified; Z79.01 Long term (current) use of anticoagulants; K59.00 Constipation, unspecified; I95.1 Orthostatic hypotension; Z68.39 Body mass index [BMI] 39.0-39.9, adult
CPT/HCPCS: 36415; 70450-TC; 70551-TC; 71045-TC-FY; 80048; 80053; 80061; 80164; 80307; 81003; 82550; 82962; 83036; 83690; 83721; 83735; 84100; 84439; 84443; 84484; 85025; 85027; 85610; 85730; 87086; 93005; 93010; 93880-TC; 97116-GP; 97162-GP; 99285-25; U0003

== ENCOUNTER 2020-03-13 15:32 | Inpatient (IN) | payer OTHER ==
[2020-03-13 15:40] VITALS: BMI 39.4
[2020-03-13] MEDS ORDERED: ACETAMINOPHEN 500 MG TABLET (FP) PO ONE (17:12)
[2020-03-13 17:24] LABS: BASO % 0.9 % (0-2.0); EOS % 0.6 % (0-4.5); HEMATOCRIT 39.5 % (32.4-45.2); HEMOGLOBIN 12.9 GM/dL (10.7-15.3); LYMPH % 15.4 % (8-40); MCH 29.1 pg (25.7-33.7); MCHC 32.6 g/dl (32.0-36.0); MEAN CELL VOLUME 89.3 fl (80-96); MEAN PLT VOLUME 8.8 fl (7.5-11.1); MONO % 6.5 % (3.8-10.2); NEUT % 76.6 % (42.8-82.8); PLATELET COUNT 366 K/MM3 (134-434); RBC 4.42 M/mm3 (3.60-5.2); RDW 14.8 % (11.6-15.6); WHITE BLOOD COUNT 9.9 K/mm3 (4.0-10.0)
[2020-03-13 17:29] LABS: INR 1.06 (0.83-1.09); PROTHROMBIN TIME (PATIENT) 12.8 SEC (9.7-13.0)
[2020-03-13 17:32] LABS: ACTIVATED PTT 33.3 SECONDS (25.2-36.5)
[2020-03-13] MEDS ORDERED: FUROSEMIDE 40 MG/4 ML INJECTABLE VIAL IVPUSH ONE (17:35)
[2020-03-13] MEDS ORDERED: LISINOPRIL 10 MG TABLET PO ONE (17:35)
[2020-03-13] MEDS ORDERED: MAG HYDROX/AL HYDROX/SIMETH 30 ML UNIT-DOSE CUP PO ONE (17:36)
[2020-03-13] MEDS ORDERED: FAMOTIDINE 20 MG/50 ML IVPB 20 MG/50 ML MG IVPB ONE ×2 (17:36→18:03)
[2020-03-13 17:45] LABS: CHLORIDE 94 mmol/L (98-107); POTASSIUM 4.6 mmol/L (3.5-5.1); SODIUM 136 mmol/L (136-145)
[2020-03-13 17:48] LABS: ANION GAP 6 MMOL/L (8-16); BLOOD UREA NITROGEN 10.5 mg/dL (7-18); CALCIUM 9.7 mg/dL (8.5-10.1); CO2 36 mmol/L (21-32); GLUCOSE,RANDOM 283 mg/dL (74-106); LIPASE 164 U/L (73-393)
[2020-03-13 17:51] LABS: CREATININE 0.7 mg/dL (0.55-1.3); SGOT/AST 31 U/L (15-37); SGPT/ALT 34 U/L (13-61)
[2020-03-13 17:52] LABS: LDH 290 U/L (84-246)
[2020-03-13 17:53] LABS: BILIRUBIN,TOTAL 0.5 mg/dL (0.2-1); TOT PROT 8.4 g/dl (6.4-8.2)
[2020-03-13 17:54] LABS: ALK PHOS 130 U/L (45-117)
[2020-03-13 17:57] LABS: N-TERMINAL BNP 1754.9 pg/ml (5-125)
[2020-03-13] MEDS ORDERED: ACETAMINOPHEN 325 MG TABLET (FP) ONE (18:03)
[2020-03-13] MEDS ORDERED: LISINOPRIL 5 MG TABLET ONE (18:03)
[2020-03-13] MEDS ORDERED: FUROSEMIDE 40 MG/4 ML INJECTABLE VIAL ONE (18:03)
[2020-03-13] MEDS ORDERED: MAG HYDROX/AL HYDROX/SIMETH 30 ML UNIT-DOSE CUP ONE (18:03)
[2020-03-13] MEDS ORDERED: morphine CARPU-JECT 2 MG/1 ML DISP.SYRIN IVPUSH ONE (20:04)
[2020-03-13] MEDS ORDERED: MORPHINE SULFATE 2 MG/ML VIAL ONE (20:08)
[2020-03-13] MEDS ORDERED: NITROGLYCERIN 2% OINTMENT - 1GM PACKET TD ONE ×2 (21:06→21:21)
[2020-03-13] MEDS ORDERED: PANTOPRAZOLE SODIUM 40 MG VIAL IVPUSH ONE (21:09)
[2020-03-13] MEDS ORDERED: GABAPENTIN 400 MG CAPSULE PO ONE (21:10)
[2020-03-13] MEDS ORDERED: GABAPENTIN 100 MG CAPSULE ONE (21:21)
[2020-03-13] MEDS ORDERED: PANTOPRAZOLE SODIUM 40 MG VIAL ONE (21:22)
[2020-03-13 23:12] LABS: EPI CELLS >36 /uL (0-25.1); HYALINE CASTS 6 /uL (0-3.1); URINE APPEARANCE CLEAR; URINE BACTERIA 149 /uL (0-1359); URINE BILIRUBIN NEGATIVE (NEGATIVE); URINE COLOR YELLOW; URINE GLUCOSE (UA) TRACE (NEGATIVE); URINE KETONE NEGATIVE (NEGATIVE); URINE LEUK ESTERASE TRACE (NEGATIVE); URINE NITRITE NEGATIVE (NEGATIVE); URINE PROTEIN 4+ (NEGATIVE); URINE UROBILINOGEN 0.2 mg/dL (0.2-1.0); URINE WBC 68 /uL (0-25.8)
[2020-03-14] MEDS ORDERED: DIVALPROEX SODIUM 250 MG TABLET E.C. PO ONE (00:14)
[2020-03-14] MEDS ORDERED: QUEtiapine FUMARATE 100 MG TABLET (FP) PO ONE (00:15)
[2020-03-14 00:40] LABS: URINE RBC 151.3 /uL (0-23.9)
[2020-03-14 00:41] LABS: YEAST NONE SEEN (NEGATIVE)
[2020-03-14] MEDS ORDERED: DIVALPROEX SODIUM 500 MG TABLET E.C. ONE (00:52)
[2020-03-14] MEDS ORDERED: QUEtiapine FUMARATE 100 MG TABLET (FP) ONE ×2 (00:52→10:34)
[2020-03-14] MEDS ORDERED: DIVALPROEX SODIUM 125 MG TABLET E.C. ONE (00:53)
[2020-03-14] MEDS ORDERED: levETIRAcetam 500 MG TABLET (FP) PO ONE (06:49)
[2020-03-14] MEDS ORDERED: MAG HYDROX/AL HYDROX/SIMETH 30 ML UNIT-DOSE CUP PO PRN (06:52)
[2020-03-14] MEDS ORDERED: MAG HYDROX/AL HYDROX/SIMETH 30 ML UNIT-DOSE CUP ONE (07:21)
[2020-03-14] MEDS ORDERED: levETIRAcetam 500 MG/5 ML INJECTION VIAL IVPB ONE (07:21)
[2020-03-14] MEDS ORDERED: ALBUTEROL SO4 HFA INHALER IH PRN (08:22)
[2020-03-14 09:22] LABS: CHOLESTEROL 171 mg/dL (50-200)
[2020-03-14 09:23] LABS: TRIGLYCERIDES 130 mg/dL (0-150)
[2020-03-14 09:24] LABS: LDL CHOLESTEROL (ONLY SJRH) 100 mg/dL (5-100)
[2020-03-14 09:25] LABS: HDL CHOLESTEROL 51 mg/dL (40-60)
[2020-03-14] MEDS ORDERED: PANTOPRAZOLE 40 MG TABLET ONE (09:48)
[2020-03-14] MEDS: PANTOPRAZOLE 40 MG TABLET PO SCH (09:55)
[2020-03-14] MEDS ORDERED: PANTOPRAZOLE 40 MG TABLET PO SCH (10:00)
[2020-03-14] MEDS ORDERED: ACETAMINOPHEN 325 MG TABLET (FP) ONE (10:33)
[2020-03-14] MEDS ORDERED: APIXABAN 5 MG TABLET ONE (10:33)
[2020-03-14] MEDS ORDERED: LISINOPRIL 5 MG TABLET ONE (10:33)
[2020-03-14] MEDS ORDERED: metoPROLOL SUCCINATE 25 MG TAB.SR.24H (FP) ONE (10:34)
[2020-03-14] MEDS: QUEtiapine FUMARATE 100 MG TABLET (FP) PO SCH ×2 (10:41→22:02)
[2020-03-14] MEDS: LISINOPRIL 10 MG TABLET PO SCH (10:41)
[2020-03-14] MEDS: metoPROLOL SUCCINATE 25 MG TAB.SR.24H (FP) PO SCH (10:41)
[2020-03-14] MEDS: APIXABAN 5 MG TABLET PO SCH ×2 (10:41→22:02)
[2020-03-14] MEDS: POLYETHYLENE GLYCOL 3350 119 GM BTL PO SCH (10:41)
[2020-03-14 11:03] LABS: HEMATOCRIT 37.5 % (32.4-45.2); HEMOGLOBIN 7.8 GM/dL (10.7-15.3); MCHC 20.8 g/dl (32.0-36.0); MEAN CELL VOLUME 90.2 fl (80-96); MEAN PLT VOLUME 9.1 fl (7.5-11.1); PLATELET COUNT 265 K/MM3 (134-434); RBC 4.15 M/mm3 (3.60-5.2); WHITE BLOOD COUNT 5.2 K/mm3 (4.0-10.0)
[2020-03-14 11:05] LABS: MCH 18.7 pg (25.7-33.7)
[2020-03-14 11:11] LABS: INR 1.11 (0.83-1.09); PROTHROMBIN TIME (PATIENT) 13.6 SEC (9.7-13.0)
[2020-03-14 11:12] LABS: POTASSIUM 3.6 mmol/L (3.5-5.1)
[2020-03-14 11:14] LABS: ACTIVATED PTT 32.9 SECONDS (25.2-36.5)
[2020-03-14 11:15] LABS: ALBUMIN 2.6 g/dl (3.4-5.0)
[2020-03-14 11:17] LABS: BLOOD UREA NITROGEN 12.2 mg/dL (7-18); MAGNESIUM 1.9 mg/dL (1.8-2.4)
[2020-03-14 11:18] LABS: CREATININE 0.8 mg/dL (0.55-1.3)
[2020-03-14 11:19] LABS: BILIRUBIN,TOTAL 0.6 mg/dL (0.2-1)
[2020-03-14 11:20] LABS: PHOSPHOROUS 4.3 mg/dL (2.5-4.9); TOT PROT 7.3 g/dl (6.4-8.2)
[2020-03-14] MEDS: INSULIN SLIDING SCALE (NOVOLOG) 1 VIAL SQ SCH ×3 (12:18→22:11)
[2020-03-14] MEDS ORDERED: METHADONE HCL 40 MG DISPERSABLE TABLET PO ONE (14:53)
[2020-03-14] MEDS ORDERED: cefTRIAXone SODIUM 1 GM VIAL ONE (15:31)
[2020-03-14] MEDS ORDERED: DEXTROSE 5%-WATER - 50 ML IVPB ONE (15:31)
[2020-03-14] MEDS: GABAPENTIN 100 MG CAPSULE PO SCH ×2 (15:41→22:00)
[2020-03-14] MEDS: FUROSEMIDE 40 MG/4 ML INJECTABLE VIAL IVPUSH SCH (15:48)
[2020-03-14] MEDS: CEFTRIAXONE 1 GM in DEXTROSE 5%-WATER - 50 ML IVPB SCH (15:51)
[2020-03-14 17:15] LABS: EPI CELLS >36 /uL (0-25.1); HYALINE CASTS 1 /uL (0-3.1); PH,URINE 6.5 (5.0-8.0); URINE APPEARANCE CLEAR; URINE BACTERIA 126 /uL (0-1359); URINE BILIRUBIN NEGATIVE (NEGATIVE); URINE COLOR YELLOW; URINE GLUCOSE (UA) NEGATIVE (NEGATIVE); URINE KETONE NEGATIVE (NEGATIVE); URINE LEUK ESTERASE TRACE (NEGATIVE); URINE NITRITE NEGATIVE (NEGATIVE); URINE PROTEIN 3+ (NEGATIVE); URINE UROBILINOGEN 0.2 mg/dL (0.2-1.0); URINE WBC 77 /uL (0-25.8)
[2020-03-14 17:48] LABS: COCAINE, UR NEGATIVE ng/ml (CUTOFF=300); PHENCYCLIDINE,URINE NEGATIVE ng/ml (CUTOFF=25)
[2020-03-14 17:53] LABS: URINE AMPHETAMINES NEGATIVE ng/ml (CUTOFF=500); URINE BARBITURATES NEGATIVE ng/ml (CUTOFF=200)
[2020-03-14 17:56] LABS: METHADONE, UR POSITIVE ng/ml (CUTOFF=300); OPIATES, URI POSITIVE ng/ml (CUTOFF=300); URINE BENZODIAZEPINES POSITIVE ng/ml (CUTOFF=200)
[2020-03-14] MEDS: ACETAMINOPHEN 325 MG TABLET (FP) PO PRN (20:09)
[2020-03-14 20:51] LABS: URINE RBC 46 /uL (0-23.9)
[2020-03-14] MEDS ORDERED: PATIENT'S OWN MEDICATION (NON-FORMULARY) (Simvastatin 10 MG Tablet) PO SCH (22:00)
[2020-03-14] MEDS: ATORVASTATIN CA 10 MG TABLET (FP) PO SCH (22:02)
[2020-03-15] MEDS: GABAPENTIN 100 MG CAPSULE PO SCH ×3 (05:54→21:22)
[2020-03-15] MEDS: FUROSEMIDE 40 MG/4 ML INJECTABLE VIAL IVPUSH SCH ×2 (05:54→13:57)
[2020-03-15] MEDS: ACETAMINOPHEN 325 MG TABLET (FP) PO PRN ×3 (06:00→18:30)
[2020-03-15] MEDS: PANTOPRAZOLE 40 MG TABLET PO SCH (06:40)
[2020-03-15] MEDS: INSULIN SLIDING SCALE (NOVOLOG) 1 VIAL SQ SCH ×4 (06:40→21:27)
[2020-03-15] MEDS ORDERED: cefTRIAXone SODIUM 1 GM VIAL ONE (09:04)
[2020-03-15] MEDS ORDERED: DEXTROSE 5%-WATER - 50 ML IVPB ONE (09:05)
[2020-03-15] MEDS: CEFTRIAXONE 1 GM in DEXTROSE 5%-WATER - 50 ML IVPB SCH (09:07)
[2020-03-15] MEDS: QUEtiapine FUMARATE 100 MG TABLET (FP) PO SCH (09:08)
[2020-03-15] MEDS: POLYETHYLENE GLYCOL 3350 119 GM BTL PO SCH (09:08)
[2020-03-15] MEDS: LISINOPRIL 10 MG TABLET PO SCH (09:09)
[2020-03-15] MEDS: APIXABAN 5 MG TABLET PO SCH ×2 (09:09→21:23)
[2020-03-15] MEDS: metoPROLOL SUCCINATE 25 MG TAB.SR.24H (FP) PO SCH (09:09)
[2020-03-15] MEDS ORDERED: levETIRAcetam 500 MG TABLET (FP) PO SCH (10:00)
[2020-03-15] MEDS: METHADONE HCL 40 MG DISPERSABLE TABLET PO SCH (13:57)
[2020-03-15 15:20] LABS: EOS % 3.6 % (0-4.5); HEMATOCRIT 36.3 % (32.4-45.2); HEMOGLOBIN 11.9 GM/dL (10.7-15.3); LYMPH % 31.8 % (8-40); MCH 29.1 pg (25.7-33.7); MCHC 32.8 g/dl (32.0-36.0); MEAN CELL VOLUME 88.6 fl (80-96); MEAN PLT VOLUME 8.5 fl (7.5-11.1); NEUT % 53.6 % (42.8-82.8); PLATELET COUNT 321 K/MM3 (134-434); RBC 4.09 M/mm3 (3.60-5.2); RDW 15.1 % (11.6-15.6); WHITE BLOOD COUNT 7.9 K/mm3 (4.0-10.0)
[2020-03-15 15:57] LABS: POTASSIUM 3.6 mmol/L (3.5-5.1)
[2020-03-15 15:59] LABS: CALCIUM 8.8 mg/dL (8.5-10.1)
[2020-03-15 16:00] LABS: ALBUMIN 2.5 g/dl (3.4-5.0); BLOOD UREA NITROGEN 23.7 mg/dL (7-18)
[2020-03-15 16:03] LABS: CREATININE 0.9 mg/dL (0.55-1.3)
[2020-03-15 16:04] LABS: BILIRUBIN,TOTAL 0.2 mg/dL (0.2-1)
[2020-03-15] MEDS ORDERED: MAGNESIUM SULF 50% (8.12 MEQ/2 ML-1 GM VIAL) IVPB ONE ×2 (18:01→18:30)
[2020-03-15] MEDS: ATORVASTATIN CA 10 MG TABLET (FP) PO SCH (21:23)
[2020-03-15] MEDS: levETIRAcetam 250 MG TABLET PO SCH (21:23)
[2020-03-15] MEDS: traZODone HCL 50 MG TABLET (FP) PO SCH (21:23)
[2020-03-15] MEDS ORDERED: levETIRAcetam 250 MG TABLET PO SCH (22:00)
[2020-03-16] MEDS: FUROSEMIDE 40 MG/4 ML INJECTABLE VIAL IVPUSH SCH ×2 (05:09→14:31)
[2020-03-16] MEDS: METHADONE HCL 40 MG DISPERSABLE TABLET PO SCH (05:09)
[2020-03-16] MEDS: GABAPENTIN 100 MG CAPSULE PO SCH ×3 (05:10→21:20)
[2020-03-16] MEDS: PANTOPRAZOLE 40 MG TABLET PO SCH ×2 (06:45→21:21)
[2020-03-16] MEDS: INSULIN SLIDING SCALE (NOVOLOG) 1 VIAL SQ SCH ×4 (06:47→21:22)
[2020-03-16 07:12] LABS: HEMATOCRIT 36.2 % (32.4-45.2); MCH 29.6 pg (25.7-33.7); MCHC 33.2 g/dl (32.0-36.0); MEAN CELL VOLUME 89.4 fl (80-96); MEAN PLT VOLUME 8.9 fl (7.5-11.1); PLATELET COUNT 323 K/MM3 (134-434); RBC 4.05 M/mm3 (3.60-5.2); RDW 14.8 % (11.6-15.6); WHITE BLOOD COUNT 9.2 K/mm3 (4.0-10.0)
[2020-03-16 07:31] LABS: MAGNESIUM 2.4 mg/dL (1.8-2.4)
[2020-03-16 07:35] LABS: PHOSPHOROUS 4.6 mg/dL (2.5-4.9)
[2020-03-16] MEDS ORDERED: DEXTROSE 5%-WATER - 50 ML IVPB ONE (11:49)
[2020-03-16] MEDS ORDERED: cefTRIAXone SODIUM 1 GM VIAL ONE (11:49)
[2020-03-16] MEDS: LISINOPRIL 10 MG TABLET PO SCH (12:10)
[2020-03-16] MEDS: APIXABAN 5 MG TABLET PO SCH ×2 (12:10→21:21)
[2020-03-16] MEDS: levETIRAcetam 250 MG TABLET PO SCH ×2 (12:10→21:20)
[2020-03-16] MEDS: metoPROLOL SUCCINATE 25 MG TAB.SR.24H (FP) PO SCH (12:10)
[2020-03-16] MEDS: CEFTRIAXONE 1 GM in DEXTROSE 5%-WATER - 50 ML IVPB SCH (12:11)
[2020-03-16] MEDS: POLYETHYLENE GLYCOL 3350 119 GM BTL PO SCH (12:11)
[2020-03-16] MEDS: ACETAMINOPHEN 325 MG TABLET (FP) PO PRN (14:57)
[2020-03-16] MEDS ORDERED: MAGNESIUM SULF 50% (8.12 MEQ/2 ML-1 GM VIAL) IVPB ONE (15:45)
[2020-03-16] MEDS: traZODone HCL 50 MG TABLET (FP) PO SCH (21:20)
[2020-03-16] MEDS: ATORVASTATIN CA 10 MG TABLET (FP) PO SCH (21:21)
[2020-03-16] MEDS: QUEtiapine FUMARATE 100 MG TABLET (FP) PO SCH (21:21)
[2020-03-17] MEDS: METHADONE HCL 40 MG DISPERSABLE TABLET PO SCH (06:13)
[2020-03-17] MEDS: GABAPENTIN 100 MG CAPSULE PO SCH ×4 (06:14→22:04)
[2020-03-17] MEDS: FUROSEMIDE 40 MG/4 ML INJECTABLE VIAL IVPUSH SCH ×2 (06:14→14:22)
[2020-03-17] MEDS: INSULIN SLIDING SCALE (NOVOLOG) 1 VIAL SQ SCH ×4 (06:25→21:52)
[2020-03-17 07:05] LABS: BASO % 0.7 % (0-2.0); EOS % 2.9 % (0-4.5); HEMATOCRIT 35.3 % (32.4-45.2); HEMOGLOBIN 11.8 GM/dL (10.7-15.3); LYMPH % 35.5 % (8-40); MCH 29.7 pg (25.7-33.7); MCHC 33.5 g/dl (32.0-36.0); MEAN CELL VOLUME 88.6 fl (80-96); MEAN PLT VOLUME 8.8 fl (7.5-11.1); MONO % 9.2 % (3.8-10.2); NEUT % 51.7 % (42.8-82.8); PLATELET COUNT 316 K/MM3 (134-434); RBC 3.98 M/mm3 (3.60-5.2); RDW 14.9 % (11.6-15.6)
[2020-03-17 07:21] LABS: POTASSIUM 3.7 mmol/L (3.5-5.1)
[2020-03-17 07:29] LABS: CALCIUM 8.8 mg/dL (8.5-10.1)
[2020-03-17 07:30] LABS: ALBUMIN 2.6 g/dl (3.4-5.0); BLOOD UREA NITROGEN 27.7 mg/dL (7-18)
[2020-03-17 07:33] LABS: CREATININE 0.9 mg/dL (0.55-1.3)
[2020-03-17 07:34] LABS: BILIRUBIN,TOTAL 0.7 mg/dL (0.2-1); TOT PROT 7.1 g/dl (6.4-8.2)
[2020-03-17] MEDS ORDERED: cefTRIAXone SODIUM 1 GM VIAL ONE (10:30)
[2020-03-17] MEDS ORDERED: DEXTROSE 5%-WATER - 50 ML IVPB ONE (10:31)
[2020-03-17] MEDS: CEFTRIAXONE 1 GM in DEXTROSE 5%-WATER - 50 ML IVPB SCH (10:35)
[2020-03-17] MEDS: levETIRAcetam 250 MG TABLET PO SCH ×2 (10:36→21:47)
[2020-03-17] MEDS: PANTOPRAZOLE 40 MG TABLET PO SCH ×2 (10:36→21:48)
[2020-03-17] MEDS: QUEtiapine FUMARATE 100 MG TABLET (FP) PO SCH ×2 (10:36→21:49)
[2020-03-17] MEDS: APIXABAN 5 MG TABLET PO SCH ×2 (10:36→21:48)
[2020-03-17] MEDS: metoPROLOL SUCCINATE 25 MG TAB.SR.24H (FP) PO SCH (10:36)
[2020-03-17] MEDS: LISINOPRIL 10 MG TABLET PO SCH (10:37)
[2020-03-17] MEDS: POLYETHYLENE GLYCOL 3350 119 GM BTL PO SCH ×2 (10:37→10:41)
[2020-03-17] MEDS: ACETAMINOPHEN 325 MG TABLET (FP) PO PRN ×2 (14:39→21:49)
[2020-03-17] MEDS: traZODone HCL 50 MG TABLET (FP) PO SCH (21:48)
[2020-03-17] MEDS: ATORVASTATIN CA 10 MG TABLET (FP) PO SCH (21:48)
[2020-03-17] MEDS ORDERED: GABAPENTIN 100 MG CAPSULE PO ONE (23:12)
[2020-03-18] MEDS ORDERED: KETOROLAC TROMETHAMINE 15 MG/ML VIAL IVPUSH ONE (02:32)
[2020-03-18] MEDS ORDERED: KETOROLAC TROMETHAMINE 10 MG TABLET PO ONE (03:00)
[2020-03-18] MEDS: FUROSEMIDE 40 MG/4 ML INJECTABLE VIAL IVPUSH SCH ×2 (06:16→13:08)
[2020-03-18] MEDS: METHADONE HCL 40 MG DISPERSABLE TABLET PO SCH (06:16)
[2020-03-18] MEDS: GABAPENTIN 100 MG CAPSULE PO SCH ×3 (06:16→22:20)
[2020-03-18] MEDS: INSULIN SLIDING SCALE (NOVOLOG) 1 VIAL SQ SCH ×4 (06:16→22:21)
[2020-03-18] MEDS ORDERED: BISACODYL 10 MG SUPP.RECT PR ONE (08:00)
[2020-03-18] MEDS: PANTOPRAZOLE 40 MG TABLET PO SCH (09:55)
[2020-03-18] MEDS: levETIRAcetam 250 MG TABLET PO SCH ×2 (09:55→22:21)
[2020-03-18] MEDS: QUEtiapine FUMARATE 100 MG TABLET (FP) PO SCH ×2 (09:55→22:21)
[2020-03-18] MEDS: APIXABAN 5 MG TABLET PO SCH ×2 (09:55→22:21)
[2020-03-18] MEDS: POLYETHYLENE GLYCOL 3350 119 GM BTL PO SCH (09:59)
[2020-03-18] MEDS: LISINOPRIL 10 MG TABLET PO SCH (11:45)
[2020-03-18] MEDS: metoPROLOL SUCCINATE 25 MG TAB.SR.24H (FP) PO SCH (11:45)
[2020-03-18] MEDS: traZODone HCL 50 MG TABLET (FP) PO SCH (22:21)
[2020-03-18] MEDS: ATORVASTATIN CA 10 MG TABLET (FP) PO SCH (22:21)
[2020-03-19] MEDS: METHADONE HCL 40 MG DISPERSABLE TABLET PO SCH (06:12)
[2020-03-19] MEDS: FUROSEMIDE 40 MG/4 ML INJECTABLE VIAL IVPUSH SCH (06:12)
[2020-03-19] MEDS: GABAPENTIN 100 MG CAPSULE PO SCH ×3 (06:12→21:24)
[2020-03-19] MEDS: INSULIN SLIDING SCALE (NOVOLOG) 1 VIAL SQ SCH ×4 (06:29→21:25)
[2020-03-19] MEDS: levETIRAcetam 250 MG TABLET PO SCH ×2 (09:58→21:24)
[2020-03-19] MEDS: LISINOPRIL 10 MG TABLET PO SCH (09:59)
[2020-03-19] MEDS: POLYETHYLENE GLYCOL 3350 119 GM BTL PO SCH (09:59)
[2020-03-19] MEDS: PANTOPRAZOLE 40 MG TABLET PO SCH (09:59)
[2020-03-19] MEDS: metoPROLOL SUCCINATE 25 MG TAB.SR.24H (FP) PO SCH (09:59)
[2020-03-19] MEDS: APIXABAN 5 MG TABLET PO SCH ×2 (09:59→21:24)
[2020-03-19] MEDS: QUEtiapine FUMARATE 100 MG TABLET (FP) PO SCH ×2 (09:59→21:25)
[2020-03-19 11:17] LABS: ARTERIAL BLD GAS O2 SATURATION 96.2 mmHg (95-98); ARTERIAL BLOOD GAS BASE EXCESS 3.2 mmol/L (-2-2); ARTERIAL BLOOD GAS PO2 84.7 mmHg (80-100); ARTERIAL BLOOD GAS pH 7.392 (7.350-7.450)
[2020-03-19 11:18] LABS: ALLENS TEST POSITIVE
[2020-03-19 11:26] LABS: BASO % 0.5 % (0-2.0); EOS % 2.6 % (0-4.5); HEMATOCRIT 37.3 % (32.4-45.2); LYMPH % 23.8 % (8-40); MCHC 32.1 g/dl (32.0-36.0); MEAN CELL VOLUME 90.4 fl (80-96); MEAN PLT VOLUME 9.1 fl (7.5-11.1); MONO % 8.6 % (3.8-10.2); NEUT % 64.5 % (42.8-82.8); PLATELET COUNT 325 K/MM3 (134-434); RBC 4.13 M/mm3 (3.60-5.2); WHITE BLOOD COUNT 9.8 K/mm3 (4.0-10.0)
[2020-03-19 11:46] LABS: ALBUMIN 2.9 g/dl (3.4-5.0); BILIRUBIN,TOTAL 0.4 mg/dL (0.2-1); BLOOD UREA NITROGEN 53.5 mg/dL (7-18); CALCIUM 9.1 mg/dL (8.5-10.1); CREATININE 3.1 mg/dL (0.55-1.3); MAGNESIUM 2.9 mg/dL (1.8-2.4); PHOSPHOROUS 7.2 mg/dL (2.5-4.9); POTASSIUM 4.7 mmol/L (3.5-5.1); TOT PROT 7.5 g/dl (6.4-8.2)
[2020-03-19] MEDS: INSULIN (LEVEMIR) 100 UNITS/ML UNITS SQ SCH ×2 (12:28→21:23)
[2020-03-19] MEDS: SODIUM CHLORIDE 1,000 ML IV SCH (12:31)
[2020-03-19 14:00] LABS: EPI CELLS >36 /uL (0-25.1); HYALINE CASTS 13 /uL (0-3.1); URINE APPEARANCE CLOUDY; URINE BACTERIA 6 /uL (0-1359); URINE BILIRUBIN NEGATIVE (NEGATIVE); URINE COLOR DK YELLOW; URINE GLUCOSE (UA) NEGATIVE (NEGATIVE); URINE KETONE TRACE (NEGATIVE); URINE LEUK ESTERASE NEGATIVE (NEGATIVE); URINE NITRITE NEGATIVE (NEGATIVE); URINE PROTEIN 1+ (NEGATIVE); URINE UROBILINOGEN 0.2 mg/dL (0.2-1.0); URINE WBC 39 /uL (0-25.8)
[2020-03-19 15:03] LABS: URINE RBC 24 /uL (0-23.9)
[2020-03-19] MEDS: ATORVASTATIN CA 10 MG TABLET (FP) PO SCH (21:24)
[2020-03-19] MEDS: traZODone HCL 50 MG TABLET (FP) PO SCH (21:25)
[2020-03-20] MEDS: INSULIN SLIDING SCALE (NOVOLOG) 1 VIAL SQ SCH ×4 (06:10→21:26)
[2020-03-20] MEDS: INSULIN (LEVEMIR) 100 UNITS/ML UNITS SQ SCH ×2 (06:11→21:25)
[2020-03-20] MEDS: GABAPENTIN 100 MG CAPSULE PO SCH ×3 (06:11→21:25)
[2020-03-20] MEDS: METHADONE HCL 40 MG DISPERSABLE TABLET PO SCH (06:12)
[2020-03-20 08:03] LABS: CALCIUM 8.4 mg/dL (8.5-10.1)
[2020-03-20 08:04] LABS: ALBUMIN 2.6 g/dl (3.4-5.0); BLOOD UREA NITROGEN 60.8 mg/dL (7-18); MAGNESIUM 2.8 mg/dL (1.8-2.4)
[2020-03-20 08:07] LABS: CREATININE 2.3 mg/dL (0.55-1.3); PHOSPHOROUS 5.4 mg/dL (2.5-4.9)
[2020-03-20 08:09] LABS: TOT PROT 6.7 g/dl (6.4-8.2)
[2020-03-20 08:13] LABS: BASO % 0.8 % (0-2.0); EOS % 3.3 % (0-4.5); HEMOGLOBIN 10.8 GM/dL (10.7-15.3); MCH 29.2 pg (25.7-33.7); MCHC 32.8 g/dl (32.0-36.0); MEAN CELL VOLUME 89.1 fl (80-96); MEAN PLT VOLUME 9.3 fl (7.5-11.1); MONO % 9.8 % (3.8-10.2); NEUT % 49.1 % (42.8-82.8); PLATELET COUNT 268 K/MM3 (134-434); RBC 3.71 M/mm3 (3.60-5.2); WHITE BLOOD COUNT 7.9 K/mm3 (4.0-10.0)
[2020-03-20] MEDS ORDERED: PT OWN MED DRAWER 7, Y5N ONE (09:55)
[2020-03-20] MEDS: POLYETHYLENE GLYCOL 3350 119 GM BTL PO SCH (10:10)
[2020-03-20] MEDS: levETIRAcetam 250 MG TABLET PO SCH ×2 (10:10→21:25)
[2020-03-20] MEDS: QUEtiapine FUMARATE 100 MG TABLET (FP) PO SCH ×2 (10:10→21:27)
[2020-03-20] MEDS: PANTOPRAZOLE 40 MG TABLET PO SCH (10:10)
[2020-03-20] MEDS: metoPROLOL SUCCINATE 25 MG TAB.SR.24H (FP) PO SCH (10:10)
[2020-03-20] MEDS: APIXABAN 5 MG TABLET PO SCH ×2 (10:10→21:25)
[2020-03-20] MEDS: SODIUM CHLORIDE 1,000 ML IV SCH (12:20)
[2020-03-20] MEDS: ATORVASTATIN CA 10 MG TABLET (FP) PO SCH (21:25)
[2020-03-20] MEDS: traZODone HCL 50 MG TABLET (FP) PO SCH (21:26)
[2020-03-21] MEDS: GABAPENTIN 100 MG CAPSULE PO SCH ×2 (06:43→13:30)
[2020-03-21] MEDS: INSULIN (LEVEMIR) 100 UNITS/ML UNITS SQ SCH (06:48)
[2020-03-21] MEDS: METHADONE HCL 40 MG DISPERSABLE TABLET PO SCH (06:49)
[2020-03-21] MEDS: INSULIN SLIDING SCALE (NOVOLOG) 1 VIAL SQ SCH ×2 (06:49→11:54)
[2020-03-21 06:58] LABS: POTASSIUM 4.7 mmol/L (3.5-5.1)
[2020-03-21 07:00] LABS: BLOOD UREA NITROGEN 36.5 mg/dL (7-18); CALCIUM 9.5 mg/dL (8.5-10.1)
[2020-03-21 07:03] LABS: CREATININE 0.9 mg/dL (0.55-1.3)
[2020-03-21 07:04] LABS: PHOSPHOROUS 2.5 mg/dL (2.5-4.9)
[2020-03-21] MEDS ORDERED: INSULIN (LEVEMIR) 100 UNITS/ML UNITS SQ ONE (07:05)
[2020-03-21] MEDS ORDERED: INSULIN SLIDING SCALE (NOVOLOG) 1 VIAL SQ ONE (07:05)
[2020-03-21 07:06] LABS: MAGNESIUM 2.5 mg/dL (1.8-2.4)
[2020-03-21] MEDS: QUEtiapine FUMARATE 100 MG TABLET (FP) PO SCH (09:21)
[2020-03-21] MEDS: PANTOPRAZOLE 40 MG TABLET PO SCH (09:21)
[2020-03-21] MEDS: levETIRAcetam 250 MG TABLET PO SCH (09:21)
[2020-03-21] MEDS: APIXABAN 5 MG TABLET PO SCH (09:21)
[2020-03-21] MEDS: metoPROLOL SUCCINATE 25 MG TAB.SR.24H (FP) PO SCH (09:21)
[2020-03-21] MEDS: POLYETHYLENE GLYCOL 3350 119 GM BTL PO SCH (09:22)
[2020-03-21 09:32] VITALS: PULSE 79
[2020-03-21] MEDS: SODIUM CHLORIDE 1,000 ML IV SCH (13:27)
[2020-03-21 13:34] VITALS: BP 125/78; TEMP 98.7
== END 2020-03-21 16:00 | disposition home or self-care (01) | DRG 194 ==
LOC: JER 15:32 → JERBED 03-14 00:16 → J4S 03-14 15:24
PROVIDERS: ADMIT Hospitalist; ATTEND Internal Medicine
DX: I11.0 Hypertensive heart disease with heart failure (principal); I16.0 Hypertensive urgency; G40.909 Epilepsy, unspecified, not intractable, without status epilepticus; F31.9 Bipolar disorder, unspecified; I50.33 Acute on chronic diastolic (congestive) heart failure; E78.5 Hyperlipidemia, unspecified; F41.9 Anxiety disorder, unspecified; N39.0 Urinary tract infection, site not specified; N28.89 Other specified disorders of kidney and ureter; K29.70 Gastritis, unspecified, without bleeding; D64.9 Anemia, unspecified; K27.9 Peptic ulcer, site unspecified, unspecified as acute or chronic, without hemorrhage or perforation; N17.9 Acute kidney failure, unspecified; K76.0 Fatty (change of) liver, not elsewhere classified; F11.20 Opioid dependence, uncomplicated; N13.30 Unspecified hydronephrosis; E11.65 Type 2 diabetes mellitus with hyperglycemia; I25.10 Atherosclerotic heart disease of native coronary artery without angina pectoris; Z95.5 Presence of coronary angioplasty implant and graft; E87.70 Fluid overload, unspecified
CPT/HCPCS: 36415; 36600; 71045-TC-FY; 71250-TC; 74176-TC; 74178-TC; 76775-TC; 76856-TC; 80048; 80053; 80061; 80307; 81003; 82550; 82565; 82728; 82803; 82962; 83036; 83605; 83615; 83690; 83721; 83735; 83880; 84100; 84300; 84484; 84540; 85025; 85027; 85379; 85610; 85651; 85730; 86140; 86850; 86900; 86901; 87040; 87086; 87804; 87899; 93005; 93010; 93970-TC; 97116-GP; 97161-GP; 99285-25; C9803; Q9967; U0003

== ENCOUNTER 2022-08-17 10:38 | Inpatient (IN) | payer OTHER ==
[2022-08-17 10:55] VITALS: BMI 36.8
[2022-08-17 13:48] LABS: EOS % 2.7 % (0-4.5); HEMOGLOBIN 9.4 GM/dL (10.7-15.3); LYMPH % 14.2 % (8-40); MCH 28.6 pg (25.7-33.7); MCHC 33.7 g/dl (32.0-36.0); MEAN PLT VOLUME 8.6 fl (7.5-11.1); MONO % 7.1 % (3.8-10.2); PLATELET COUNT 356 10^3/uL (134-434); RBC 3.29 M/mm3 (3.60-5.2); RDW 15.3 % (11.6-15.6); WHITE BLOOD COUNT 8.9 K/mm3 (4.0-10.0)
[2022-08-17 13:56] LABS: INR 1.37 (0.83-1.09); PROTHROMBIN TIME (PATIENT) 15.8 SEC (9.7-13.0)
[2022-08-17 13:58] LABS: ACTIVATED PTT 35.8 SECONDS (25.2-36.5)
[2022-08-17 14:05] LABS: POTASSIUM 5.3 mmol/L (3.5-5.1)
[2022-08-17 14:06] LABS: CALCIUM 9.7 mg/dL (8.5-10.1)
[2022-08-17 14:07] LABS: ALBUMIN 3.6 g/dl (3.4-5.0); BLOOD UREA NITROGEN 58.1 mg/dL (7-18)
[2022-08-17 14:10] LABS: CREATININE 1.6 mg/dL (0.55-1.3)
[2022-08-17 14:12] LABS: TOT PROT 9.3 g/dl (6.4-8.2)
[2022-08-17 14:14] LABS: BILIRUBIN,TOTAL 0.3 mg/dL (0.2-1)
[2022-08-17 14:40] LABS: CHLORIDE 89 mmol/L (98-107); SODIUM 127 mmol/L (136-145)
[2022-08-17 14:42] LABS: CALCIUM 9.3 mg/dL (8.5-10.1)
[2022-08-17 14:43] LABS: BLOOD UREA NITROGEN 54.2 mg/dL (7-18); CO2 37 mmol/L (21-32); GLUCOSE,RANDOM 336 mg/dL (74-106)
[2022-08-17 14:46] LABS: CREATININE 1.7 mg/dL (0.55-1.3)
[2022-08-17 14:47] LABS: ANION GAP 1 MMOL/L (8-16); POTASSIUM 9.3 mmol/L (3.5-5.1)
[2022-08-17] MEDS ORDERED: SODIUM CHLORIDE 0.9% 500 ML INFUS.BAG IV ONE (15:05)
[2022-08-17 17:21] LABS: POTASSIUM 4.6 mmol/L (3.5-5.1)
[2022-08-17 17:22] LABS: CALCIUM 9.7 mg/dL (8.5-10.1)
[2022-08-17 17:23] LABS: BLOOD UREA NITROGEN 59.6 mg/dL (7-18)
[2022-08-17 17:26] LABS: CREATININE 1.7 mg/dL (0.55-1.3)
[2022-08-17 17:58] LABS: EPI CELLS 1 /uL (0-25.1); HYALINE CASTS 0 /uL (0-3.1); PH,URINE 6.5 (5.0-8.0); URINE APPEARANCE CLEAR; URINE BACTERIA >9,000 /uL (0-1359); URINE BILIRUBIN NEGATIVE (NEGATIVE); URINE COLOR YELLOW; URINE GLUCOSE (UA) 3+ (NEGATIVE); URINE KETONE NEGATIVE (NEGATIVE); URINE LEUK ESTERASE 1+ (NEGATIVE); URINE NITRITE NEGATIVE (NEGATIVE); URINE PROTEIN TRACE (NEGATIVE); URINE RBC 26 /uL (0-23.9); URINE UROBILINOGEN 0.2 mg/dL (0.2-1.0); URINE WBC 111 /uL (0-25.8)
[2022-08-17] MEDS ORDERED: CEFTRIAXONE 1 GM in DEXTROSE 5%-WATER - 100 ML IVPB ONE (19:17)
[2022-08-17] MEDS ORDERED: CEFTRIAXONE 1 GM/50 ML BAG ONE (19:39)
[2022-08-18 09:02] LABS: METHADONE, UR NEGATIVE (NEGATIVE); PHENCYCLIDINE,URINE NEGATIVE (NEGATIVE); URINE BARBITURATES NEGATIVE (NEGATIVE)
[2022-08-18 09:03] LABS: COCAINE, UR NEGATIVE (NEGATIVE); OPIATES, URI POSITIVE (NEGATIVE); URINE AMPHETAMINES NEGATIVE (NEGATIVE); URINE BENZODIAZEPINES POSITIVE (NEGATIVE)
[2022-08-18] MEDS: CEFTRIAXONE 1 GM in DEXTROSE 5%-WATER - 50 ML IVPB SCH (09:14)
[2022-08-18 10:05] LABS: BASO % 0.9 % (0-2.0); EOS % 2.1 % (0-4.5); HEMATOCRIT 27.2 % (32.4-45.2); LYMPH % 13.4 % (8-40); MCH 27.9 pg (25.7-33.7); MCHC 32.9 g/dl (32.0-36.0); MEAN CELL VOLUME 84.7 fl (80-96); MEAN PLT VOLUME 7.6 fl (7.5-11.1); MONO % 9.6 % (3.8-10.2); PLATELET COUNT 340 10^3/uL (134-434); RBC 3.21 M/mm3 (3.60-5.2); RDW 15.4 % (11.6-15.6); WHITE BLOOD COUNT 8.6 K/mm3 (4.0-10.0)
[2022-08-18 11:00] LABS: BILIRUBIN,TOTAL 0.3 mg/dL (0.2-1); BLOOD UREA NITROGEN 47.4 mg/dL (7-18); CALCIUM 9.4 mg/dL (8.5-10.1); CREATININE 1.3 mg/dL (0.55-1.3); MAGNESIUM 2.5 mg/dL (1.8-2.4); POTASSIUM 4.7 mmol/L (3.5-5.1); TOT PROT 7.9 g/dl (6.4-8.2)
[2022-08-18] MEDS ORDERED: ACETAMINOPHEN 325 MG TABLET (FP) PO PRN (15:51)
[2022-08-18] MEDS ORDERED: traMADol HCL 50 MG TABLET PO PRN (15:51)
[2022-08-18] MEDS ORDERED: ALBUTEROL SO4 HFA INHALER IH PRN (15:51)
[2022-08-18] MEDS ORDERED: KETOROLAC TROMETHAMINE 30 MG/1 ML VIAL IVPUSH ONE (15:54)
[2022-08-18] MEDS ORDERED: LIDOCAINE 5% TOPICAL PATCH TP SCH (20:00)
[2022-08-18] MEDS ORDERED: LIDOCAINE PATCH REMOVAL MC SCH (22:00)
[2022-08-18] MEDS ORDERED: levETIRAcetam 500 MG TABLET (FP) PO SCH (22:00)
[2022-08-18] MEDS ORDERED: INSULIN (LEVEMIR) 100 UNITS/ML UNITS SQ SCH (22:00)
[2022-08-18] MEDS: DIVALPROEX NA *ER* EXTEND REL 250 MG TABLET.SA PO SCH (22:31)
[2022-08-18] MEDS: GABAPENTIN 300 MG CAPSULE PO SCH (22:31)
[2022-08-18] MEDS: QUEtiapine FUMARATE 100 MG TABLET (FP) PO SCH (22:32)
[2022-08-18] MEDS: traZODone HCL 50 MG TABLET (FP) PO SCH (22:32)
[2022-08-19] MEDS: INSULIN (LEVEMIR) 100 UNITS/ML UNITS SQ SCH (06:30)
[2022-08-19] MEDS: GABAPENTIN 300 MG CAPSULE PO SCH ×3 (06:30→22:14)
[2022-08-19] MEDS: INSULIN SLIDING SCALE (NOVOLOG) 1 VIAL SQ SCH ×4 (06:31→22:13)
[2022-08-19] MEDS ORDERED: LIDOCAINE PATCH REMOVAL MC SCH (08:00)
[2022-08-19] MEDS: DIVALPROEX NA *ER* EXTEND REL 250 MG TABLET.SA PO SCH ×2 (09:49→22:14)
[2022-08-19] MEDS: PANTOPRAZOLE 40 MG TABLET PO SCH (09:49)
[2022-08-19] MEDS: FUROSEMIDE 40 MG TABLET (FP) PO SCH (09:49)
[2022-08-19] MEDS: LISINOPRIL 10 MG TABLET PO SCH (09:50)
[2022-08-19] MEDS: QUEtiapine FUMARATE 100 MG TABLET (FP) PO SCH ×2 (09:50→22:14)
[2022-08-19] MEDS: metoPROLOL SUCCINATE 25 MG TAB.SR.24H (FP) PO SCH (09:50)
[2022-08-19] MEDS: CEFTRIAXONE 1 GM in DEXTROSE 5%-WATER - 50 ML IVPB SCH (09:50)
[2022-08-19] MEDS: traZODone HCL 50 MG TABLET (FP) PO SCH (22:13)
[2022-08-20] MEDS: INSULIN SLIDING SCALE (NOVOLOG) 1 VIAL SQ SCH ×4 (06:42→21:49)
[2022-08-20] MEDS: INSULIN (LEVEMIR) 100 UNITS/ML UNITS SQ SCH (06:43)
[2022-08-20] MEDS: GABAPENTIN 300 MG CAPSULE PO SCH ×3 (06:43→21:49)
[2022-08-20] MEDS: FUROSEMIDE 40 MG TABLET (FP) PO SCH (09:37)
[2022-08-20] MEDS: QUEtiapine FUMARATE 100 MG TABLET (FP) PO SCH ×2 (09:37→21:49)
[2022-08-20] MEDS: PANTOPRAZOLE 40 MG TABLET PO SCH (09:37)
[2022-08-20] MEDS: DIVALPROEX NA *ER* EXTEND REL 250 MG TABLET.SA PO SCH ×2 (09:39→21:49)
[2022-08-20] MEDS: CEFTRIAXONE 1 GM in DEXTROSE 5%-WATER - 50 ML IVPB SCH (09:39)
[2022-08-20] MEDS: LISINOPRIL 10 MG TABLET PO SCH (10:56)
[2022-08-20] MEDS: metoPROLOL SUCCINATE 25 MG TAB.SR.24H (FP) PO SCH (10:58)
[2022-08-20] MEDS ORDERED: SODIUM CHLORIDE 500 ML IV STA (15:31)
[2022-08-20] MEDS: SODIUM CHLORIDE 1,000 ML IV SCH (17:00)
[2022-08-20] MEDS: traZODone HCL 50 MG TABLET (FP) PO SCH (21:49)
[2022-08-21] MEDS: GABAPENTIN 300 MG CAPSULE PO SCH ×2 (06:02→14:22)
[2022-08-21] MEDS: INSULIN SLIDING SCALE (NOVOLOG) 1 VIAL SQ SCH ×2 (06:03→12:00)
[2022-08-21] MEDS: INSULIN (LEVEMIR) 100 UNITS/ML UNITS SQ SCH (06:03)
[2022-08-21] MEDS: SODIUM CHLORIDE 1,000 ML IV SCH (08:49)
[2022-08-21] MEDS: QUEtiapine FUMARATE 100 MG TABLET (FP) PO SCH (10:03)
[2022-08-21] MEDS: FUROSEMIDE 40 MG TABLET (FP) PO SCH (10:03)
[2022-08-21] MEDS: PANTOPRAZOLE 40 MG TABLET PO SCH (10:03)
[2022-08-21] MEDS: DIVALPROEX NA *ER* EXTEND REL 250 MG TABLET.SA PO SCH (10:04)
[2022-08-21 10:09] VITALS: RESP 18
[2022-08-21 11:55] LABS: POTASSIUM 5.1 mmol/L (3.5-5.1)
[2022-08-21 11:58] LABS: BLOOD UREA NITROGEN 49.4 mg/dL (7-18)
[2022-08-21 11:59] LABS: ALBUMIN 2.6 g/dl (3.4-5.0)
[2022-08-21 12:01] LABS: CREATININE 1.5 mg/dL (0.55-1.3)
[2022-08-21 12:03] LABS: BILIRUBIN,TOTAL 0.3 mg/dL (0.2-1); TOT PROT 7.2 g/dl (6.4-8.2)
[2022-08-21 15:05] VITALS: BP 114/53; PULSE 97; TEMP 99.5
== END 2022-08-21 15:18 | DRG 463 ==
LOC: JER 10:38 → JERBED 16:40 → J4S 08-18 01:10
PROVIDERS: ADMIT Internal Medicine; ATTEND Family Medicine
DX: N39.0 Urinary tract infection, site not specified (principal); I11.0 Hypertensive heart disease with heart failure; E78.5 Hyperlipidemia, unspecified; R07.89 Other chest pain; I25.10 Atherosclerotic heart disease of native coronary artery without angina pectoris; J44.9 Chronic obstructive pulmonary disease, unspecified; E11.9 Type 2 diabetes mellitus without complications; G40.909 Epilepsy, unspecified, not intractable, without status epilepticus; F41.8 Other specified anxiety disorders; F31.9 Bipolar disorder, unspecified; F17.210 Nicotine dependence, cigarettes, uncomplicated; K42.9 Umbilical hernia without obstruction or gangrene; I07.1 Rheumatic tricuspid insufficiency; M54.50 Low back pain, unspecified; R77.8 Other specified abnormalities of plasma proteins; I48.0 Paroxysmal atrial fibrillation; F11.20 Opioid dependence, uncomplicated; I50.9 Heart failure, unspecified; B18.2 Chronic viral hepatitis C; E66.9 Obesity, unspecified; Z68.36 Body mass index [BMI] 36.0-36.9, adult; R47.81 Slurred speech; R29.810 Facial weakness; E55.9 Vitamin D deficiency, unspecified; B96.1 Klebsiella pneumoniae [K. pneumoniae] as the cause of diseases classified elsewhere
CPT/HCPCS: 0241U-QW; 36415; 70450-TC; 70551-TC; 71250-TC; 72125-TC; 74176-TC; 80048; 80053; 80061; 80307; 81003; 82140; 82550; 82607; 82962; 83036; 83735; 84443; 84484; 85025; 85610; 85730; 86850; 86900; 86901; 87086; 87186; 93005; 93010; 97162-GP; 99285-25; C9803-CS; U0003; U0005

== ENCOUNTER 2022-11-08 06:11 | Inpatient (IN) | payer OTHER ==
[2022-11-08] MEDS ORDERED: morphine CARPU-JECT 4 MG/1 ML DISP.SYRIN IVPUSH ONE (07:47)
[2022-11-08] MEDS ORDERED: morphine SULFATE 4 MG/ML VIAL ONE (08:36)
[2022-11-08 09:05] LABS: BASO % 0.8 % (0-2.0); EOS % 2.6 % (0-4.5); HEMATOCRIT 25.3 % (32.4-45.2); HEMOGLOBIN 8.4 GM/dL (10.7-15.3); LYMPH % 10.7 % (8-40); MEAN CELL VOLUME 84.9 fl (80-96); MONO % 8.2 % (3.8-10.2); NEUT % 77.7 % (42.8-82.8); PLATELET COUNT 384 10^3/uL (134-434); RBC 2.98 M/mm3 (3.60-5.2); RDW 15.4 % (11.6-15.6); WHITE BLOOD COUNT 11.6 K/mm3 (4.0-10.0)
[2022-11-08 09:12] LABS: INR 1.05 (0.83-1.09); PROTHROMBIN TIME (PATIENT) 12.2 SEC (9.7-13.0)
[2022-11-08 09:15] LABS: ACTIVATED PTT 37.3 SECONDS (25.2-36.5)
[2022-11-08 09:27] LABS: POTASSIUM 4.7 mmol/L (3.5-5.1)
[2022-11-08 09:30] LABS: ALBUMIN 2.8 g/dl (3.4-5.0); BLOOD UREA NITROGEN 19.8 mg/dL (7-18)
[2022-11-08 09:33] LABS: CREATININE 0.9 mg/dL (0.55-1.3)
[2022-11-08 09:34] LABS: BILIRUBIN,TOTAL 0.2 mg/dL (0.2-1)
[2022-11-08 09:35] LABS: TOT PROT 7.2 g/dl (6.4-8.2)
[2022-11-08] MEDS ORDERED: ACETAMINOPHEN 1000 MG/100 ML BAG IVPB ONE (11:46)
[2022-11-08] MEDS ORDERED: ACETAMINOPHEN INJECTION 100 ML IVPB ONE (11:52)
[2022-11-08] MEDS ORDERED: traMADol HCL 50 MG TABLET ONE ×2 (16:59→23:14)
[2022-11-08] MEDS: traMADol HCL 50 MG TABLET PO PRN ×2 (17:00→23:20)
[2022-11-08] MEDS ORDERED: QUEtiapine FUMARATE 100 MG TABLET (FP) ONE (22:28)
[2022-11-08] MEDS ORDERED: GABAPENTIN 300 MG CAPSULE ONE (22:28)
[2022-11-08] MEDS ORDERED: APIXABAN 5 MG TABLET ONE (22:28)
[2022-11-08] MEDS ORDERED: traZODone HCL 100 MG TABLET (FP) ONE (22:29)
[2022-11-08] MEDS ORDERED: traZODone HCL 50 MG TABLET (FP) ONE (22:29)
[2022-11-08] MEDS ORDERED: DIVALPROEX SODIUM 250 MG TABLET E.C. ONE (22:29)
[2022-11-08] MEDS: DIVALPROEX NA *ER* EXTEND REL 250 MG TABLET.SA PO SCH (22:36)
[2022-11-08] MEDS: traZODone HCL 50 MG TABLET (FP) PO SCH (22:36)
[2022-11-08] MEDS: GABAPENTIN 300 MG CAPSULE PO SCH (22:37)
[2022-11-08] MEDS: QUEtiapine FUMARATE 100 MG TABLET (FP) PO SCH (22:37)
[2022-11-08] MEDS: APIXABAN 5 MG TABLET PO SCH (22:37)
[2022-11-08] MEDS: LIDOCAINE PATCH REMOVAL MC SCH (22:38)
[2022-11-08] MEDS: INSULIN (LEVEMIR) 100 UNITS/ML UNITS SQ SCH (22:58)
[2022-11-08] MEDS: INSULIN SLIDING SCALE (NOVOLOG) 1 VIAL SQ SCH (22:59)
[2022-11-09 04:46] LABS: URINE BARBITURATES NEGATIVE (NEGATIVE)
[2022-11-09 04:47] LABS: METHADONE, UR NEGATIVE (NEGATIVE); PHENCYCLIDINE,URINE NEGATIVE (NEGATIVE); URINE AMPHETAMINES NEGATIVE (NEGATIVE)
[2022-11-09 04:50] LABS: COCAINE, UR NEGATIVE (NEGATIVE); OPIATES, URI POSITIVE (NEGATIVE); URINE BENZODIAZEPINES POSITIVE (NEGATIVE)
[2022-11-09] MEDS ORDERED: GABAPENTIN 300 MG CAPSULE ONE ×3 (06:50→23:39)
[2022-11-09] MEDS: GABAPENTIN 300 MG CAPSULE PO SCH ×3 (06:57→23:41)
[2022-11-09] MEDS: INSULIN SLIDING SCALE (NOVOLOG) 1 VIAL SQ SCH ×3 (08:13→17:54)
[2022-11-09] MEDS ORDERED: metFORMIN HCL 500 MG TABLET (FP) ONE ×2 (08:19→17:50)
[2022-11-09] MEDS: INSULIN (LEVEMIR) 100 UNITS/ML UNITS SQ SCH (08:21)
[2022-11-09] MEDS: metFORMIN HCL 500 MG TABLET (FP) PO SCH ×2 (08:21→17:53)
[2022-11-09] MEDS ORDERED: ASPIRIN COATED 81 MG TABLET.EC ONE (10:14)
[2022-11-09] MEDS ORDERED: FUROSEMIDE 40 MG TABLET (FP) ONE (10:14)
[2022-11-09] MEDS ORDERED: APIXABAN 5 MG TABLET ONE ×2 (10:14→23:38)
[2022-11-09] MEDS ORDERED: metoPROLOL SUCCINATE 25 MG TAB.SR.24H (FP) PO ONE (10:14)
[2022-11-09] MEDS ORDERED: PANTOPRAZOLE 40 MG TABLET PO ONE (10:14)
[2022-11-09] MEDS ORDERED: traMADol HCL 50 MG TABLET ONE (10:14)
[2022-11-09] MEDS ORDERED: LIDOCAINE 5% TOPICAL PATCH ONE (10:15)
[2022-11-09] MEDS ORDERED: LISINOPRIL 10 MG TABLET ONE (10:15)
[2022-11-09] MEDS ORDERED: DIVALPROEX SODIUM 250 MG TABLET E.C. ONE (10:15)
[2022-11-09] MEDS: ASPIRIN COATED 81 MG TABLET.EC PO SCH (10:20)
[2022-11-09] MEDS: APIXABAN 5 MG TABLET PO SCH ×2 (10:20→23:41)
[2022-11-09] MEDS: FUROSEMIDE 40 MG TABLET (FP) PO SCH (10:20)
[2022-11-09] MEDS: DIVALPROEX NA *ER* EXTEND REL 250 MG TABLET.SA PO SCH ×2 (10:20→23:41)
[2022-11-09] MEDS: LIDOCAINE 5% TOPICAL PATCH TP SCH (10:20)
[2022-11-09] MEDS: LISINOPRIL 10 MG TABLET PO SCH (10:21)
[2022-11-09] MEDS: metoPROLOL SUCCINATE 25 MG TAB.SR.24H (FP) PO SCH (10:22)
[2022-11-09] MEDS: traMADol HCL 50 MG TABLET PO PRN (10:22)
[2022-11-09] MEDS: PANTOPRAZOLE 40 MG TABLET PO SCH (10:22)
[2022-11-09] MEDS ORDERED: SODIUM CHLORIDE 500 ML IV STA (18:51)
[2022-11-09] MEDS ORDERED: DIVALPROEX SODIUM 125 MG TABLET E.C. ONE (23:39)
[2022-11-09] MEDS ORDERED: traZODone HCL 100 MG TABLET (FP) ONE (23:39)
[2022-11-09] MEDS ORDERED: traZODone HCL 50 MG TABLET (FP) ONE (23:40)
[2022-11-09] MEDS: LIDOCAINE PATCH REMOVAL MC SCH (23:41)
[2022-11-09] MEDS: traZODone HCL 50 MG TABLET (FP) PO SCH (23:41)
[2022-11-09] MEDS: QUEtiapine FUMARATE 100 MG TABLET (FP) PO SCH (23:43)
[2022-11-10] MEDS: INSULIN SLIDING SCALE (NOVOLOG) 1 VIAL SQ SCH ×5 (00:32→21:33)
[2022-11-10] MEDS ORDERED: INSULIN (LEVEMIR) 100 UNITS/ML UNITS SQ ONE ×2 (00:34→00:35)
[2022-11-10] MEDS: INSULIN (LEVEMIR) 100 UNITS/ML UNITS SQ SCH ×3 (00:37→21:32)
[2022-11-10] MEDS: GABAPENTIN 300 MG CAPSULE PO SCH ×3 (06:14→21:32)
[2022-11-10] MEDS: metFORMIN HCL 500 MG TABLET (FP) PO SCH ×2 (06:14→17:47)
[2022-11-10] MEDS: traMADol HCL 50 MG TABLET PO PRN ×2 (08:33→22:02)
[2022-11-10] MEDS: FUROSEMIDE 40 MG TABLET (FP) PO SCH (10:03)
[2022-11-10] MEDS: APIXABAN 5 MG TABLET PO SCH ×2 (10:03→21:32)
[2022-11-10] MEDS: metoPROLOL SUCCINATE 25 MG TAB.SR.24H (FP) PO SCH (10:03)
[2022-11-10] MEDS: LIDOCAINE 5% TOPICAL PATCH TP SCH (10:03)
[2022-11-10] MEDS: ASPIRIN COATED 81 MG TABLET.EC PO SCH (10:03)
[2022-11-10] MEDS: LISINOPRIL 10 MG TABLET PO SCH (10:03)
[2022-11-10] MEDS: PANTOPRAZOLE 40 MG TABLET PO SCH (10:03)
[2022-11-10] MEDS: DIVALPROEX NA *ER* EXTEND REL 250 MG TABLET.SA PO SCH ×2 (11:27→21:32)
[2022-11-10 12:17] LABS: BASO % 0.4 % (0-2.0); EOS % 1.4 % (0-4.5); HEMATOCRIT 23.1 % (32.4-45.2); HEMOGLOBIN 7.6 GM/dL (10.7-15.3); LYMPH % 8.7 % (8-40); MCH 28.4 pg (25.7-33.7); MCHC 32.9 g/dl (32.0-36.0); MEAN CELL VOLUME 86.3 fl (80-96); MEAN PLT VOLUME 8.4 fl (7.5-11.1); NEUT % 81.5 % (42.8-82.8); PLATELET COUNT 355 10^3/uL (134-434); RBC 2.67 M/mm3 (3.60-5.2); RDW 15.8 % (11.6-15.6); RETICULOCYTES 1.84 % (0.5-1.5); WHITE BLOOD COUNT 14.1 K/mm3 (4.0-10.0)
[2022-11-10 12:27] LABS: CALCIUM 8.3 mg/dL (8.5-10.1)
[2022-11-10 12:28] LABS: ALBUMIN 2.6 g/dl (3.4-5.0); BLOOD UREA NITROGEN 29.8 mg/dL (7-18)
[2022-11-10 12:29] LABS: BILIRUBIN,TOTAL 0.1 mg/dL (0.2-1); TOT PROT 6.6 g/dl (6.4-8.2)
[2022-11-10 12:31] LABS: CREATININE 2.4 mg/dL (0.55-1.3)
[2022-11-10] MEDS: BUDESONIDE/FORMETEROL FUMARATE 160/4.5 mcg INHALER IH SCH ×2 (14:35→21:34)
[2022-11-10] MEDS ORDERED: IRON SUCROSE INJECTION 200 MG in SODIUM CHLORIDE 90 ML IVPB ONE (21:00)
[2022-11-10] MEDS: traZODone HCL 50 MG TABLET (FP) PO SCH (21:32)
[2022-11-10] MEDS: QUEtiapine FUMARATE 100 MG TABLET (FP) PO SCH (21:32)
[2022-11-10] MEDS: LIDOCAINE PATCH REMOVAL MC SCH (21:33)
[2022-11-10] MEDS: CALCIUM 250MG/VIT-D 125 UNITS 1 COMBO TABLET PO SCH (22:03)
[2022-11-11] MEDS: GABAPENTIN 300 MG CAPSULE PO SCH ×3 (06:26→21:22)
[2022-11-11] MEDS: INSULIN (LEVEMIR) 100 UNITS/ML UNITS SQ SCH ×2 (06:26→22:00)
[2022-11-11] MEDS: INSULIN SLIDING SCALE (NOVOLOG) 1 VIAL SQ SCH ×4 (06:27→22:00)
[2022-11-11] MEDS: metFORMIN HCL 500 MG TABLET (FP) PO SCH ×2 (06:27→17:19)
[2022-11-11] MEDS ORDERED: INSULIN (NOVOLOG) ASPART 100 UNITS/ML 10ML VIAL ONE ×2 (06:52→21:18)
[2022-11-11] MEDS: PANTOPRAZOLE 40 MG TABLET PO SCH (11:17)
[2022-11-11] MEDS: ASPIRIN COATED 81 MG TABLET.EC PO SCH (11:17)
[2022-11-11] MEDS: metoPROLOL SUCCINATE 25 MG TAB.SR.24H (FP) PO SCH (11:17)
[2022-11-11] MEDS: LISINOPRIL 10 MG TABLET PO SCH (11:17)
[2022-11-11] MEDS: FUROSEMIDE 40 MG TABLET (FP) PO SCH (11:17)
[2022-11-11] MEDS: APIXABAN 5 MG TABLET PO SCH ×2 (11:17→21:23)
[2022-11-11] MEDS: CALCIUM 250MG/VIT-D 125 UNITS 1 COMBO TABLET PO SCH ×2 (11:18→21:22)
[2022-11-11] MEDS: LIDOCAINE 5% TOPICAL PATCH TP SCH (11:18)
[2022-11-11] MEDS: DIVALPROEX NA *ER* EXTEND REL 250 MG TABLET.SA PO SCH ×2 (11:19→21:23)
[2022-11-11] MEDS: traMADol HCL 50 MG TABLET PO PRN (11:22)
[2022-11-11] MEDS: BUDESONIDE/FORMETEROL FUMARATE 160/4.5 mcg INHALER IH SCH ×2 (11:24→21:25)
[2022-11-11] MEDS: CALCITONIN - SALMON SYNTHETIC 200 UNITS/SPRAY NS SCH (11:26)
[2022-11-11] MEDS: traZODone HCL 50 MG TABLET (FP) PO SCH (21:22)
[2022-11-11] MEDS: QUEtiapine FUMARATE 100 MG TABLET (FP) PO SCH (21:22)
[2022-11-11] MEDS: LIDOCAINE PATCH REMOVAL MC SCH (21:59)
[2022-11-12] MEDS: metFORMIN HCL 500 MG TABLET (FP) PO SCH (06:07)
[2022-11-12] MEDS: GABAPENTIN 300 MG CAPSULE PO SCH ×3 (06:07→23:34)
[2022-11-12] MEDS: INSULIN SLIDING SCALE (NOVOLOG) 1 VIAL SQ SCH ×3 (06:08→17:35)
[2022-11-12] MEDS: INSULIN (LEVEMIR) 100 UNITS/ML UNITS SQ SCH (06:14)
[2022-11-12] MEDS ORDERED: IRON SUCROSE INJECTION 200 MG in SODIUM CHLORIDE 90 ML IVPB ONE (08:15)
[2022-11-12] MEDS: LIDOCAINE 5% TOPICAL PATCH TP SCH (09:47)
[2022-11-12] MEDS: APIXABAN 5 MG TABLET PO SCH (09:48)
[2022-11-12] MEDS: ASPIRIN COATED 81 MG TABLET.EC PO SCH (09:48)
[2022-11-12] MEDS: FUROSEMIDE 40 MG TABLET (FP) PO SCH (09:48)
[2022-11-12] MEDS: LISINOPRIL 10 MG TABLET PO SCH (09:48)
[2022-11-12] MEDS: metoPROLOL SUCCINATE 25 MG TAB.SR.24H (FP) PO SCH (09:48)
[2022-11-12] MEDS: PANTOPRAZOLE 40 MG TABLET PO SCH (09:48)
[2022-11-12] MEDS: BUDESONIDE/FORMETEROL FUMARATE 160/4.5 mcg INHALER IH SCH (09:48)
[2022-11-12] MEDS: CALCITONIN - SALMON SYNTHETIC 200 UNITS/SPRAY NS SCH (09:49)
[2022-11-12] MEDS: CALCIUM 250MG/VIT-D 125 UNITS 1 COMBO TABLET PO SCH (09:50)
[2022-11-12] MEDS: DIVALPROEX NA *ER* EXTEND REL 250 MG TABLET.SA PO SCH (09:50)
[2022-11-12] MEDS ORDERED: INSULIN (LEVEMIR) 100 UNITS/ML UNITS SQ ONE (11:07)
[2022-11-12 11:15] LABS: HEMATOCRIT 21.7 % (32.4-45.2); MCH 28.2 pg (25.7-33.7); MCHC 31.9 g/dl (32.0-36.0); MEAN CELL VOLUME 88.3 fl (80-96); MEAN PLT VOLUME 9.2 fl (7.5-11.1); PLATELET COUNT 211 10^3/uL (134-434); RBC 2.46 M/mm3 (3.60-5.2); WHITE BLOOD COUNT 10.5 K/mm3 (4.0-10.0)
[2022-11-12 11:17] LABS: HEMOGLOBIN 6.9 GM/dL (10.7-15.3)
[2022-11-12 11:27] LABS: POTASSIUM 5.9 mmol/L (3.5-5.1)
[2022-11-12 11:29] LABS: CALCIUM 8.7 mg/dL (8.5-10.1)
[2022-11-12 11:30] LABS: ALBUMIN 2.4 g/dl (3.4-5.0); BLOOD UREA NITROGEN 53.5 mg/dL (7-18)
[2022-11-12 11:33] LABS: CREATININE 2.8 mg/dL (0.55-1.3)
[2022-11-12 11:34] LABS: BILIRUBIN,TOTAL 0.2 mg/dL (0.2-1)
[2022-11-12 11:35] LABS: TOT PROT 6.3 g/dl (6.4-8.2)
[2022-11-12] MEDS ORDERED: FUROSEMIDE 40 MG/4 ML INJECTABLE VIAL IVPUSH ONE (13:05)
[2022-11-12] MEDS ORDERED: SODIUM CHLORIDE 500 ML IV STA (14:26)
[2022-11-12] MEDS: SODIUM ZIRCONIUM CYCLOSILICATE (LOKELMA) 5 GM PACKET PO SCH (14:58)
[2022-11-12] MEDS: SODIUM CHLORIDE 1,000 ML IV SCH (16:00)
[2022-11-12 19:18] LABS: EPI CELLS 10 /uL (0-25.1); HYALINE CASTS 0 /uL (0-3.1); URINE APPEARANCE TURBID; URINE BACTERIA 798 /uL (0-1359); URINE BILIRUBIN NEGATIVE (NEGATIVE); URINE COLOR YELLOW; URINE GLUCOSE (UA) NEGATIVE (NEGATIVE); URINE KETONE TRACE (NEGATIVE); URINE LEUK ESTERASE 3+ (NEGATIVE); URINE NITRITE NEGATIVE (NEGATIVE); URINE PROTEIN 1+ (NEGATIVE); URINE UROBILINOGEN 0.2 mg/dL (0.2-1.0); URINE WBC 13818 /uL (0-25.8)
[2022-11-12] MEDS ORDERED: levETIRAcetam 500 MG/5 ML INJECTION VIAL IVPB ONE (19:44)
[2022-11-12] MEDS: CEFTRIAXONE 1 GM in DEXTROSE 5%-WATER - 50 ML IVPB SCH (20:16)
[2022-11-12] MEDS ORDERED: INSULIN (NOVOLOG MIX 70/30) 100 UNITS/ML MDV SQ ONE (21:54)
[2022-11-12] MEDS: DIVALPROEX NA *ER* EXTEND REL 500 MG TABLET.SA (FP) PO SCH (23:32)
[2022-11-12] MEDS: traZODone HCL 50 MG TABLET (FP) PO SCH (23:33)
[2022-11-12] MEDS: LIDOCAINE PATCH REMOVAL MC SCH (23:34)
[2022-11-12] MEDS: QUEtiapine FUMARATE 100 MG TABLET (FP) PO SCH (23:34)
[2022-11-13] MEDS: APIXABAN 5 MG TABLET PO SCH ×3 (00:16→21:55)
[2022-11-13] MEDS: INSULIN (LEVEMIR) 100 UNITS/ML UNITS SQ SCH ×3 (00:23→21:56)
[2022-11-13] MEDS: INSULIN SLIDING SCALE (NOVOLOG) 1 VIAL SQ SCH ×5 (00:23→21:57)
[2022-11-13] MEDS: BUDESONIDE/FORMETEROL FUMARATE 160/4.5 mcg INHALER IH SCH ×3 (00:24→21:58)
[2022-11-13] MEDS: SODIUM ZIRCONIUM CYCLOSILICATE (LOKELMA) 5 GM PACKET PO SCH ×2 (00:41→10:46)
[2022-11-13] MEDS: CALCIUM 250MG/VIT-D 125 UNITS 1 COMBO TABLET PO SCH ×3 (00:42→21:56)
[2022-11-13] MEDS: traMADol HCL 50 MG TABLET PO PRN (01:18)
[2022-11-13] MEDS ORDERED: levETIRAcetam 500 MG/5 ML INJECTION VIAL IVPB SCH (02:00)
[2022-11-13] MEDS: GABAPENTIN 300 MG CAPSULE PO SCH ×3 (07:34→21:56)
[2022-11-13] MEDS: levETIRAcetam 500 MG/5 ML INJECTION VIAL IVPB SCH ×2 (09:03→21:53)
[2022-11-13] MEDS: ASPIRIN COATED 81 MG TABLET.EC PO SCH (10:46)
[2022-11-13] MEDS: PANTOPRAZOLE 40 MG TABLET PO SCH ×2 (10:46→21:56)
[2022-11-13] MEDS: DIVALPROEX NA *ER* EXTEND REL 500 MG TABLET.SA (FP) PO SCH ×2 (10:48→21:55)
[2022-11-13] MEDS: LIDOCAINE 5% TOPICAL PATCH TP SCH (10:48)
[2022-11-13] MEDS: CEFTRIAXONE 1 GM in DEXTROSE 5%-WATER - 50 ML IVPB SCH (10:48)
[2022-11-13] MEDS: metoPROLOL SUCCINATE 25 MG TAB.SR.24H (FP) PO SCH (10:50)
[2022-11-13] MEDS: SODIUM CHLORIDE 1,000 ML IV SCH ×2 (11:03→14:29)
[2022-11-13] MEDS: ACETAMINOPHEN 325 MG TABLET (FP) PO PRN ×2 (11:06→21:54)
[2022-11-13] MEDS: CALCITONIN - SALMON SYNTHETIC 200 UNITS/SPRAY NS SCH (12:13)
[2022-11-13 13:41] LABS: BASO % 0.8 % (0-2.0); EOS % 8.3 % (0-4.5); HEMATOCRIT 23.3 % (32.4-45.2); HEMOGLOBIN 7.8 GM/dL (10.7-15.3); LYMPH % 12.1 % (8-40); MCH 29.2 pg (25.7-33.7); MCHC 33.5 g/dl (32.0-36.0); MEAN CELL VOLUME 87.3 fl (80-96); MEAN PLT VOLUME 8.8 fl (7.5-11.1); MONO % 8.5 % (3.8-10.2); NEUT % 70.3 % (42.8-82.8); PLATELET COUNT 299 10^3/uL (134-434); RBC 2.67 M/mm3 (3.60-5.2); RDW 14.9 % (11.6-15.6); WHITE BLOOD COUNT 8.1 K/mm3 (4.0-10.0)
[2022-11-13 14:32] LABS: CALCIUM 8.6 mg/dL (8.5-10.1)
[2022-11-13 14:33] LABS: MAGNESIUM 2.5 mg/dL (1.8-2.4)
[2022-11-13 14:36] LABS: CREATININE 1.9 mg/dL (0.55-1.3)
[2022-11-13 14:40] LABS: ALBUMIN 2.5 g/dl (3.4-5.0); BILIRUBIN,TOTAL 0.2 mg/dL (0.2-1); BLOOD UREA NITROGEN 57.4 mg/dL (7-18); POTASSIUM 5.3 mmol/L (3.5-5.1); TOT PROT 6.6 g/dl (6.4-8.2)
[2022-11-13] MEDS: MINERAL OIL ENEMA 133 ML ENEMA RC SCH ×2 (15:30→17:05)
[2022-11-13 17:57] LABS: HEMATOCRIT 24.1 % (32.4-45.2); HEMOGLOBIN 7.7 GM/dL (10.7-15.3); MCH 28.3 pg (25.7-33.7); MCHC 32.1 g/dl (32.0-36.0); MEAN PLT VOLUME 8.6 fl (7.5-11.1); PLATELET COUNT 308 10^3/uL (134-434); RBC 2.73 M/mm3 (3.60-5.2); RDW 15.2 % (11.6-15.6); WHITE BLOOD COUNT 8.8 K/mm3 (4.0-10.0)
[2022-11-13] MEDS: traZODone HCL 50 MG TABLET (FP) PO SCH (21:54)
[2022-11-13] MEDS: QUEtiapine FUMARATE 100 MG TABLET (FP) PO SCH (21:56)
[2022-11-13] MEDS: LIDOCAINE PATCH REMOVAL MC SCH (21:57)
[2022-11-14] MEDS: GABAPENTIN 300 MG CAPSULE PO SCH ×3 (06:08→23:04)
[2022-11-14] MEDS: INSULIN SLIDING SCALE (NOVOLOG) 1 VIAL SQ SCH ×4 (06:18→23:17)
[2022-11-14] MEDS: ACETAMINOPHEN 325 MG TABLET (FP) PO PRN (06:21)
[2022-11-14] MEDS: INSULIN (LEVEMIR) 100 UNITS/ML UNITS SQ SCH ×3 (06:55→23:17)
[2022-11-14] MEDS: PANTOPRAZOLE 40 MG TABLET PO SCH ×2 (10:13→23:04)
[2022-11-14] MEDS: metoPROLOL SUCCINATE 25 MG TAB.SR.24H (FP) PO SCH (10:13)
[2022-11-14] MEDS: ASPIRIN COATED 81 MG TABLET.EC PO SCH (10:13)
[2022-11-14] MEDS: SODIUM ZIRCONIUM CYCLOSILICATE (LOKELMA) 5 GM PACKET PO SCH (10:13)
[2022-11-14] MEDS: APIXABAN 5 MG TABLET PO SCH ×2 (10:13→23:04)
[2022-11-14] MEDS: DIVALPROEX NA *ER* EXTEND REL 500 MG TABLET.SA (FP) PO SCH ×2 (10:13→23:04)
[2022-11-14] MEDS: CALCIUM 250MG/VIT-D 125 UNITS 1 COMBO TABLET PO SCH ×2 (10:13→23:04)
[2022-11-14] MEDS: METHYLNALTREXONE BROMIDE 8 MG/0.4 ML SYRINGE SQ SCH (10:14)
[2022-11-14] MEDS: levETIRAcetam 500 MG/5 ML INJECTION VIAL IVPB SCH ×2 (10:14→23:03)
[2022-11-14] MEDS: LIDOCAINE 5% TOPICAL PATCH TP SCH (10:14)
[2022-11-14] MEDS: CALCITONIN - SALMON SYNTHETIC 200 UNITS/SPRAY NS SCH (10:18)
[2022-11-14] MEDS: BUDESONIDE/FORMETEROL FUMARATE 160/4.5 mcg INHALER IH SCH ×2 (10:18→23:05)
[2022-11-14] MEDS: CEFTRIAXONE 1 GM in DEXTROSE 5%-WATER - 50 ML IVPB SCH (11:19)
[2022-11-14] MEDS: SODIUM CHLORIDE 1,000 ML IV SCH ×2 (15:00→17:04)
[2022-11-14] MEDS: traZODone HCL 50 MG TABLET (FP) PO SCH (23:04)
[2022-11-14] MEDS: QUEtiapine FUMARATE 100 MG TABLET (FP) PO SCH (23:05)
[2022-11-14] MEDS: LIDOCAINE PATCH REMOVAL MC SCH (23:17)
[2022-11-15] MEDS ORDERED: FUROSEMIDE 40 MG/4 ML INJECTABLE VIAL IVPUSH ONE (00:16)
[2022-11-15] MEDS: ALBUTEROL SO4 0.083% IH SOL 2.5 MG/3 ML VIAL.NEB. NEB PRN ×2 (00:27→20:44)
[2022-11-15] MEDS ORDERED: methylPREDNISolone NA SUCC 40 MG/1 ML VIAL IVPUSH SCH (02:00)
[2022-11-15] MEDS ORDERED: FUROSEMIDE 40 MG/4 ML INJECTABLE VIAL ONE (02:57)
[2022-11-15] MEDS: GABAPENTIN 300 MG CAPSULE PO SCH ×4 (05:48→22:01)
[2022-11-15] MEDS: FUROSEMIDE 40 MG/4 ML INJECTABLE VIAL IVPUSH SCH ×2 (05:48→17:07)
[2022-11-15] MEDS: INSULIN SLIDING SCALE (NOVOLOG) 1 VIAL SQ SCH ×3 (05:59→17:07)
[2022-11-15] MEDS: INSULIN (LEVEMIR) 100 UNITS/ML UNITS SQ SCH ×2 (06:01→08:15)
[2022-11-15 07:16] LABS: ARTERIAL BLD GAS O2 SATURATION 94.4 % (95-98); ARTERIAL BLOOD GAS BASE EXCESS 6.4 mmol/L (-2-2); ARTERIAL BLOOD GAS PO2 75.5 mmHg (80-100); ARTERIAL BLOOD GAS pH 7.365 (7.350-7.450)
[2022-11-15 07:18] LABS: ALLENS TEST POSITIVE
[2022-11-15 07:19] LABS: VENT MODE S/T; VENT RATE 16
[2022-11-15] MEDS: ASPIRIN COATED 81 MG TABLET.EC PO SCH (09:45)
[2022-11-15] MEDS: metoPROLOL SUCCINATE 25 MG TAB.SR.24H (FP) PO SCH (09:45)
[2022-11-15] MEDS: LIDOCAINE 5% TOPICAL PATCH TP SCH (09:46)
[2022-11-15] MEDS: DIVALPROEX NA *ER* EXTEND REL 500 MG TABLET.SA (FP) PO SCH ×2 (09:46→22:00)
[2022-11-15] MEDS: levETIRAcetam 500 MG/5 ML INJECTION VIAL IVPB SCH ×2 (09:46→20:40)
[2022-11-15] MEDS: CALCIUM 250MG/VIT-D 125 UNITS 1 COMBO TABLET PO SCH ×2 (09:46→22:00)
[2022-11-15] MEDS: PANTOPRAZOLE 40 MG TABLET PO SCH ×2 (09:46→22:01)
[2022-11-15] MEDS: APIXABAN 5 MG TABLET PO SCH ×2 (09:46→22:00)
[2022-11-15] MEDS: SODIUM ZIRCONIUM CYCLOSILICATE (LOKELMA) 5 GM PACKET PO SCH (09:48)
[2022-11-15] MEDS: CALCITONIN - SALMON SYNTHETIC 200 UNITS/SPRAY NS SCH (09:49)
[2022-11-15] MEDS: BUDESONIDE/FORMETEROL FUMARATE 160/4.5 mcg INHALER IH SCH ×2 (09:49→22:04)
[2022-11-15] MEDS: CEFTRIAXONE 1 GM in DEXTROSE 5%-WATER - 50 ML IVPB SCH (10:53)
[2022-11-15] MEDS ORDERED: VANCOMYCIN/WATER 1250 MG 1,250 MG/250 ML BAG IVPB ONE (11:15)
[2022-11-15 13:42] LABS: BASO % 0.6 % (0-2.0); EOS % 5.7 % (0-4.5); HEMATOCRIT 25.8 % (32.4-45.2); HEMOGLOBIN 8.6 GM/dL (10.7-15.3); LYMPH % 11.3 % (8-40); MCH 29.1 pg (25.7-33.7); MCHC 33.2 g/dl (32.0-36.0); MEAN CELL VOLUME 87.6 fl (80-96); MONO % 9.8 % (3.8-10.2); NEUT % 72.6 % (42.8-82.8); PLATELET COUNT 334 10^3/uL (134-434); RBC 2.94 M/mm3 (3.60-5.2); RDW 15.7 % (11.6-15.6); WHITE BLOOD COUNT 9.1 K/mm3 (4.0-10.0)
[2022-11-15 14:02] LABS: CALCIUM 8.6 mg/dL (8.5-10.1)
[2022-11-15 14:04] LABS: ALBUMIN 2.4 g/dl (3.4-5.0)
[2022-11-15 14:07] LABS: CREATININE 0.9 mg/dL (0.55-1.3); TOT PROT 6.5 g/dl (6.4-8.2)
[2022-11-15 14:09] LABS: BILIRUBIN,TOTAL 0.2 mg/dL (0.2-1)
[2022-11-15 14:11] LABS: N-TERMINAL BNP 4737.4 pg/ml (5-125)
[2022-11-15 14:21] LABS: BLOOD UREA NITROGEN 31.8 mg/dL (7-18)
[2022-11-15] MEDS: SODIUM CHLORIDE 1,000 ML IV SCH ×2 (16:55→22:03)
[2022-11-15] MEDS: ACETAMINOPHEN 325 MG TABLET (FP) PO PRN (21:50)
[2022-11-15] MEDS: QUEtiapine FUMARATE 100 MG TABLET (FP) PO SCH (22:00)
[2022-11-15] MEDS: traZODone HCL 50 MG TABLET (FP) PO SCH (22:00)
[2022-11-15] MEDS: LIDOCAINE PATCH REMOVAL MC SCH (22:01)
[2022-11-16] MEDS: INSULIN (LEVEMIR) 100 UNITS/ML UNITS SQ SCH ×3 (01:02→23:36)
[2022-11-16] MEDS: INSULIN SLIDING SCALE (NOVOLOG) 1 VIAL SQ SCH ×5 (01:03→23:37)
[2022-11-16] MEDS: GABAPENTIN 300 MG CAPSULE PO SCH ×3 (07:12→23:33)
[2022-11-16] MEDS: FUROSEMIDE 40 MG/4 ML INJECTABLE VIAL IVPUSH SCH ×2 (07:12→17:29)
[2022-11-16] MEDS: levETIRAcetam 500 MG/5 ML INJECTION VIAL IVPB SCH ×2 (08:01→20:58)
[2022-11-16] MEDS: PANTOPRAZOLE 40 MG TABLET PO SCH ×2 (09:39→23:34)
[2022-11-16] MEDS: metoPROLOL SUCCINATE 25 MG TAB.SR.24H (FP) PO SCH (09:39)
[2022-11-16] MEDS: ASPIRIN COATED 81 MG TABLET.EC PO SCH (09:39)
[2022-11-16] MEDS: APIXABAN 5 MG TABLET PO SCH ×2 (09:40→23:33)
[2022-11-16] MEDS: CALCIUM 250MG/VIT-D 125 UNITS 1 COMBO TABLET PO SCH ×2 (09:40→23:35)
[2022-11-16] MEDS: DIVALPROEX NA *ER* EXTEND REL 500 MG TABLET.SA (FP) PO SCH ×2 (09:41→23:35)
[2022-11-16] MEDS: SODIUM ZIRCONIUM CYCLOSILICATE (LOKELMA) 5 GM PACKET PO SCH (09:44)
[2022-11-16] MEDS: LIDOCAINE 5% TOPICAL PATCH TP SCH (09:45)
[2022-11-16] MEDS: BUDESONIDE/FORMETEROL FUMARATE 160/4.5 mcg INHALER IH SCH (09:46)
[2022-11-16] MEDS: CALCITONIN - SALMON SYNTHETIC 200 UNITS/SPRAY NS SCH (09:47)
[2022-11-16] MEDS: METHYLNALTREXONE BROMIDE 8 MG/0.4 ML SYRINGE SQ SCH (11:17)
[2022-11-16] MEDS: FERROUS SO4 325 MG TABLET (FP) PO SCH ×2 (12:41→17:29)
[2022-11-16] MEDS: VANCOMYCIN/WATER 1250 MG 1,250 MG/250 ML BAG IVPB SCH (17:29)
[2022-11-16 18:17] VITALS: BMI 42.2
[2022-11-16 21:41] VITALS: RESP 18
[2022-11-16] MEDS: QUEtiapine FUMARATE 100 MG TABLET (FP) PO SCH (23:33)
[2022-11-16] MEDS: traZODone HCL 50 MG TABLET (FP) PO SCH (23:34)
[2022-11-16] MEDS: LIDOCAINE PATCH REMOVAL MC SCH (23:36)
[2022-11-17] MEDS: BUDESONIDE/FORMETEROL FUMARATE 160/4.5 mcg INHALER IH SCH ×3 (00:01→23:09)
[2022-11-17] MEDS: VANCOMYCIN/WATER 1250 MG 1,250 MG/250 ML BAG IVPB SCH ×2 (04:17→17:14)
[2022-11-17] MEDS: FUROSEMIDE 40 MG/4 ML INJECTABLE VIAL IVPUSH SCH ×2 (06:44→17:14)
[2022-11-17] MEDS: GABAPENTIN 300 MG CAPSULE PO SCH ×3 (06:45→22:56)
[2022-11-17] MEDS: INSULIN SLIDING SCALE (NOVOLOG) 1 VIAL SQ SCH ×4 (06:46→22:59)
[2022-11-17] MEDS: INSULIN (LEVEMIR) 100 UNITS/ML UNITS SQ SCH ×2 (06:46→22:58)
[2022-11-17] MEDS: metoPROLOL SUCCINATE 25 MG TAB.SR.24H (FP) PO SCH (09:39)
[2022-11-17] MEDS: ASCORBIC ACID 500 MG TABLET (FP) PO SCH (09:39)
[2022-11-17] MEDS: FOLIC ACID 1 MG TABLET (FP) PO SCH (09:40)
[2022-11-17] MEDS: FERROUS SO4 325 MG TABLET (FP) PO SCH ×3 (09:40→17:14)
[2022-11-17] MEDS: ASPIRIN COATED 81 MG TABLET.EC PO SCH (09:40)
[2022-11-17] MEDS: APIXABAN 5 MG TABLET PO SCH ×2 (09:40→22:57)
[2022-11-17] MEDS: SODIUM ZIRCONIUM CYCLOSILICATE (LOKELMA) 5 GM PACKET PO SCH (09:40)
[2022-11-17] MEDS: PANTOPRAZOLE 40 MG TABLET PO SCH ×2 (09:40→22:56)
[2022-11-17] MEDS: LIDOCAINE 5% TOPICAL PATCH TP SCH (09:40)
[2022-11-17] MEDS: DIVALPROEX NA *ER* EXTEND REL 500 MG TABLET.SA (FP) PO SCH ×2 (09:41→22:58)
[2022-11-17] MEDS: CALCIUM 250MG/VIT-D 125 UNITS 1 COMBO TABLET PO SCH ×2 (09:41→22:57)
[2022-11-17] MEDS: levETIRAcetam 500 MG/5 ML INJECTION VIAL IVPB SCH ×2 (09:42→21:25)
[2022-11-17] MEDS: CALCITONIN - SALMON SYNTHETIC 200 UNITS/SPRAY NS SCH ×2 (09:45→11:46)
[2022-11-17 20:07] LABS: ANTIGLOMERULAR BASEMENT MEN.AB <0.2 units (0.0-0.9)
[2022-11-17] MEDS: traZODone HCL 50 MG TABLET (FP) PO SCH (22:55)
[2022-11-17] MEDS: QUEtiapine FUMARATE 100 MG TABLET (FP) PO SCH (22:56)
[2022-11-17] MEDS: LIDOCAINE PATCH REMOVAL MC SCH (22:58)
[2022-11-17] MEDS ORDERED: INSULIN (NOVOLOG) ASPART 100 UNITS/ML 10ML VIAL ONE (23:37)
[2022-11-18] MEDS: VANCOMYCIN/WATER 1250 MG 1,250 MG/250 ML BAG IVPB SCH (04:38)
[2022-11-18] MEDS: FUROSEMIDE 40 MG/4 ML INJECTABLE VIAL IVPUSH SCH ×2 (06:26→17:27)
[2022-11-18] MEDS: GABAPENTIN 300 MG CAPSULE PO SCH ×2 (06:27→13:03)
[2022-11-18] MEDS: INSULIN (LEVEMIR) 100 UNITS/ML UNITS SQ SCH (06:28)
[2022-11-18] MEDS: INSULIN SLIDING SCALE (NOVOLOG) 1 VIAL SQ SCH ×3 (06:28→17:27)
[2022-11-18] MEDS ORDERED: INSULIN (LEVEMIR) 100 UNITS/ML UNITS SQ ONE (07:27)
[2022-11-18] MEDS: FERROUS SO4 325 MG TABLET (FP) PO SCH ×3 (08:27→17:27)
[2022-11-18] MEDS: levETIRAcetam 500 MG/5 ML INJECTION VIAL IVPB SCH (08:27)
[2022-11-18 09:10] LABS: HEMOGLOBIN 8.1 GM/dL (10.7-15.3); MCH 28.8 pg (25.7-33.7); MCHC 32.5 g/dl (32.0-36.0); MEAN CELL VOLUME 88.8 fl (80-96); MEAN PLT VOLUME 7.5 fl (7.5-11.1); PLATELET COUNT 324 10^3/uL (134-434); RBC 2.82 M/mm3 (3.60-5.2); RDW 15.4 % (11.6-15.6)
[2022-11-18] MEDS: ASPIRIN COATED 81 MG TABLET.EC PO SCH (09:18)
[2022-11-18] MEDS: FOLIC ACID 1 MG TABLET (FP) PO SCH (09:18)
[2022-11-18] MEDS: metoPROLOL SUCCINATE 25 MG TAB.SR.24H (FP) PO SCH (09:18)
[2022-11-18] MEDS: PANTOPRAZOLE 40 MG TABLET PO SCH (09:18)
[2022-11-18] MEDS: APIXABAN 5 MG TABLET PO SCH (09:18)
[2022-11-18] MEDS: ASCORBIC ACID 500 MG TABLET (FP) PO SCH (09:18)
[2022-11-18] MEDS: SODIUM ZIRCONIUM CYCLOSILICATE (LOKELMA) 5 GM PACKET PO SCH (09:18)
[2022-11-18] MEDS: LIDOCAINE 5% TOPICAL PATCH TP SCH (09:18)
[2022-11-18] MEDS: CALCIUM 250MG/VIT-D 125 UNITS 1 COMBO TABLET PO SCH (09:19)
[2022-11-18] MEDS: DIVALPROEX NA *ER* EXTEND REL 500 MG TABLET.SA (FP) PO SCH (09:19)
[2022-11-18] MEDS: CALCITONIN - SALMON SYNTHETIC 200 UNITS/SPRAY NS SCH (09:19)
[2022-11-18] MEDS: BUDESONIDE/FORMETEROL FUMARATE 160/4.5 mcg INHALER IH SCH (09:20)
[2022-11-18 10:17] LABS: POTASSIUM 4.5 mmol/L (3.5-5.1)
[2022-11-18 10:37] LABS: ALBUMIN 2.4 g/dl (3.4-5.0)
[2022-11-18 10:38] LABS: CALCIUM 9.5 mg/dL (8.5-10.1)
[2022-11-18 10:40] LABS: CREATININE 0.7 mg/dL (0.55-1.3)
[2022-11-18 10:42] LABS: BILIRUBIN,TOTAL 0.3 mg/dL (0.2-1); TOT PROT 6.4 g/dl (6.4-8.2)
[2022-11-18] MEDS: METHYLNALTREXONE BROMIDE 8 MG/0.4 ML SYRINGE SQ SCH (11:07)
[2022-11-18] MEDS ORDERED: INSULIN (NOVOLOG) ASPART 100 UNITS/ML 10ML VIAL ONE (12:12)
[2022-11-18 14:30] VITALS: BP 135/71; PULSE 73; TEMP 98.1
[2022-11-18 16:10] LABS: ATYPICAL pANCA <1:20 titer (Neg:<1:20); C-ANCA <1:20 titer (Neg:<1:20)
[2022-11-18] MEDS ORDERED: DOXYCYCLINE HYCLATE 100 MG CAPSULE PO SCH (18:00)
== END 2022-11-18 18:50 | DRG 383 ==
LOC: JER 06:11 → JERBED 14:41 → INTOOBSV 14:41 → J8W 11-10 02:35 → OBSVTOIN 11-12 12:46
PROVIDERS: ADMIT Family Medicine; ATTEND Family Medicine
PROC: 30233N1 Transfusion of Nonautologous Red Blood Cells into Peripheral Vein, Percutaneous Approach (ICD-10-PCS; principal; 2022-11-12)
DX: L03.116 Cellulitis of left lower limb (principal); N17.9 Acute kidney failure, unspecified; I50.33 Acute on chronic diastolic (congestive) heart failure; J96.01 Acute respiratory failure with hypoxia; F13.20 Sedative, hypnotic or anxiolytic dependence, uncomplicated; F11.20 Opioid dependence, uncomplicated; I48.91 Unspecified atrial fibrillation; E11.40 Type 2 diabetes mellitus with diabetic neuropathy, unspecified; I11.0 Hypertensive heart disease with heart failure; I25.10 Atherosclerotic heart disease of native coronary artery without angina pectoris; J44.9 Chronic obstructive pulmonary disease, unspecified; D64.9 Anemia, unspecified; S32.038G Other fracture of third lumbar vertebra, subsequent encounter for fracture with delayed healing; F31.81 Bipolar II disorder; L02.416 Cutaneous abscess of left lower limb; G40.909 Epilepsy, unspecified, not intractable, without status epilepticus; S80.12XA Contusion of left lower leg, initial encounter; E78.5 Hyperlipidemia, unspecified; R10.84 Generalized abdominal pain; F41.8 Other specified anxiety disorders; M54.50 Low back pain, unspecified; F17.200 Nicotine dependence, unspecified, uncomplicated; Z79.899 Other long term (current) drug therapy; W01.0XXA Fall on same level from slipping, tripping and stumbling without subsequent striking against object, initial encounter; Y92.098 Other place in other non-institutional residence as the place of occurrence of the external cause; Z86.19 Personal history of other infectious and parasitic diseases; Z91.81 History of falling; Z95.5 Presence of coronary angioplasty implant and graft; N39.0 Urinary tract infection, site not specified; B96.89 Other specified bacterial agents as the cause of diseases classified elsewhere; Z99.81 Dependence on supplemental oxygen
CPT/HCPCS: 36415; 36430; 36600; 70450-TC; 71045-TC-FY; 72125-TC; 72128-TC; 72131-TC; 72170-TC-FY; 72192-TC; 73700-TC-RT; 74176-TC; 76705-TC; 80053; 80307; 81003; 82105; 82272; 82436; 82550; 82553; 82570; 82728; 82803; 82962; 83516; 83520; 83540; 83550; 83735; 83880; 84133; 84155; 84165; 84300; 84466; 84484; 85025; 85027; 85045; 85610; 85730; 86038; 86256; 86803; 86850; 86900; 86901; 86922; 87040; 87081; 87086; 87186; 87522; 87635; 93005; 93010; 93306-TC; 94010; 94640; 94660; 97116-GP; 97161-GP; 99285-25; G0378; G0480; J1756; P9058

== ENCOUNTER 2023-01-11 14:10 | Inpatient (IN) | payer OTHER ==
[2023-01-11 14:22] VITALS: BMI 41.1
[2023-01-11 15:58] LABS: BASO % 0.5 % (0-2.0); EOS % 2.2 % (0-4.5); HEMATOCRIT 24.7 % (32.4-45.2); HEMOGLOBIN 7.9 GM/dL (10.7-15.3); LYMPH % 7.9 % (8-40); MCH 29.4 pg (25.7-33.7); MCHC 32.1 g/dl (32.0-36.0); MEAN CELL VOLUME 91.5 fl (80-96); MEAN PLT VOLUME 7.9 fl (7.5-11.1); MONO % 4.6 % (3.8-10.2); NEUT % 84.8 % (42.8-82.8); PLATELET COUNT 421 10^3/uL (134-434); RDW 16.1 % (11.6-15.6); WHITE BLOOD COUNT 9.7 K/mm3 (4.0-10.0)
[2023-01-11 16:04] LABS: INR 1.65 (0.83-1.09)
[2023-01-11 16:07] LABS: ACTIVATED PTT 43.3 SECONDS (25.2-36.5)
[2023-01-11] MEDS ORDERED: TRANEXAMIC ACID 1000 MG/10 ML VIAL IVPUSH ONE (16:12)
[2023-01-11] MEDS ORDERED: TRANEXAMIC ACID 1000 MG/10 ML VIAL ONE (16:13)
[2023-01-11 16:25] LABS: POTASSIUM 4.1 mmol/L (3.5-5.1)
[2023-01-11 16:28] LABS: CALCIUM 8.9 mg/dL (8.5-10.1)
[2023-01-11 16:30] LABS: CREATININE 0.9 mg/dL (0.55-1.3)
[2023-01-11 16:32] LABS: BILIRUBIN,TOTAL 0.3 mg/dL (0.2-1)
[2023-01-11] MEDS ORDERED: AZITHROMYCIN IVPB 500 MG in DEXTROSE 5%-WATER - 250 ML IVPB ONE (18:15)
[2023-01-11] MEDS ORDERED: CEFTRIAXONE 1,000 MG in DEXTROSE 5%-WATER - 50 ML IVPB ONE (18:15)
[2023-01-11] MEDS ORDERED: ONDANSETRON 4 MG/2 ML VIAL IVPUSH ONE (18:24)
[2023-01-11] MEDS ORDERED: SODIUM CHLORIDE 0.9% 500 ML INFUS.BAG IV ONE (18:25)
[2023-01-11] MEDS ORDERED: ONDANSETRON 4 MG/2 ML VIAL ONE (18:56)
[2023-01-11] MEDS ORDERED: AZITHROMYCIN IVPB 500 MG/250 ML BAG IVPB ONE (18:57)
[2023-01-11] MEDS ORDERED: CEFTRIAXONE 1 GM/50 ML BAG ONE (18:57)
[2023-01-11 20:17] LABS: N-TERMINAL BNP 901.8 pg/ml (5-125)
[2023-01-11] MEDS ORDERED: DOCUSATE SODIUM 100 MG CAPSULE (FP) PO PRN (21:19)
[2023-01-11] MEDS ORDERED: ACETAMINOPHEN 1000 MG/100 ML BAG IVPB PRN (21:23)
[2023-01-11] MEDS ORDERED: ALBUTEROL SO4 2.5/IPRATROPIUM 0.5 INH SOL 3 ML VIAL.NEB. NEB PRN (21:25)
[2023-01-11 22:37] LABS: VENOUS BASE EXCESS 10.6 mmol/L (-2-2); VENOUS O2 SATURATION 56.6 % (70-80); VENOUS PH 7.345 (7.310-7.410)
[2023-01-11] MEDS: INSULIN SLIDING SCALE (NOVOLOG) 1 VIAL SQ SCH (22:48)
[2023-01-12 05:05] LABS: ARTERIAL BLD GAS O2 SATURATION 94.9 % (95-98); ARTERIAL BLOOD GAS PO2 80.4 mmHg (80-100); ARTERIAL BLOOD GAS pH 7.358 (7.350-7.450)
[2023-01-12 05:28] LABS: ALLENS TEST POSITIVE
[2023-01-12 07:40] LABS: HEMATOCRIT 21.6 % (32.4-45.2); MCH 29.5 pg (25.7-33.7); MEAN PLT VOLUME 7.9 fl (7.5-11.1); PLATELET COUNT 369 10^3/uL (134-434); RBC 2.34 M/mm3 (3.60-5.2); RDW 16.3 % (11.6-15.6); WHITE BLOOD COUNT 22.3 K/mm3 (4.0-10.0)
[2023-01-12 07:51] LABS: HEMOGLOBIN 6.9 GM/dL (10.7-15.3)
[2023-01-12 08:04] LABS: POTASSIUM 4.4 mmol/L (3.5-5.1)
[2023-01-12 08:07] LABS: CALCIUM 8.5 mg/dL (8.5-10.1)
[2023-01-12 08:08] LABS: BLOOD UREA NITROGEN 30.4 mg/dL (7-18); MAGNESIUM 2.1 mg/dL (1.8-2.4)
[2023-01-12 08:10] LABS: CREATININE 0.8 mg/dL (0.55-1.3)
[2023-01-12] MEDS ORDERED: FUROSEMIDE 40 MG/4 ML INJECTABLE VIAL IVPUSH ONE (08:11)
[2023-01-12 08:32] LABS: ANISOCYTOSIS 0; HELMET CELLS 0; HOWELL-JOLLY BODIES 0; MACROCYTOSIS 0; OVALOCYTE 0; ROULEAU 0; SICKELED CELLS 0; TARGET CELLS 0; TEAR DROP CELLS 0; TOXIC GRANULATION 0
[2023-01-12] MEDS: INSULIN SLIDING SCALE (NOVOLOG) 1 VIAL SQ SCH ×4 (09:27→22:28)
[2023-01-12] MEDS ORDERED: cefTRIAXone SODIUM 1 GM VIAL ONE (09:30)
[2023-01-12] MEDS ORDERED: FUROSEMIDE 40 MG/4 ML INJECTABLE VIAL ONE (09:31)
[2023-01-12] MEDS ORDERED: INSULIN (NOVOLOG) ASPART 100 UNITS/ML 10ML VIAL ONE (09:31)
[2023-01-12] MEDS ORDERED: AZITHROMYCIN IVPB 500 MG/250 ML BAG IVPB ONE (09:31)
[2023-01-12] MEDS ORDERED: CEFTRIAXONE 1 GM in DEXTROSE 5%-WATER - 50 ML IVPB SCH (10:00)
[2023-01-12] MEDS ORDERED: AZITHROMYCIN IVPB 500 MG/250 ML BAG IVPB SCH (10:00)
[2023-01-12] MEDS ORDERED: ALBUTEROL SO4 2.5/IPRATROPIUM 0.5 INH SOL 3 ML VIAL.NEB. NEB SCH (11:30)
[2023-01-12] MEDS: FUROSEMIDE 40 MG/4 ML INJECTABLE VIAL IVPUSH SCH (11:57)
[2023-01-12] MEDS ORDERED: METOPROLOL TARTRATE 25 MG TABLET (FP) ONE (12:13)
[2023-01-12] MEDS ORDERED: PANTOPRAZOLE SODIUM 40 MG/100 ML BAG IVPB ONE (12:14)
[2023-01-12] MEDS ORDERED: methylPREDNISolone NA SUCC 40 MG/1 ML VIAL ONE (12:14)
[2023-01-12] MEDS: methylPREDNISolone NA SUCC 40 MG/1 ML VIAL IVPUSH SCH ×2 (12:15→17:10)
[2023-01-12] MEDS: metoPROLOL SUCCINATE 25 MG TAB.SR.24H (FP) PO SCH (12:15)
[2023-01-12] MEDS: PANTOPRAZOLE SODIUM 40 MG VIAL IVPUSH SCH ×2 (12:36→22:28)
[2023-01-12] MEDS ORDERED: GABAPENTIN 100 MG CAPSULE ONE (14:12)
[2023-01-12] MEDS: GABAPENTIN 300 MG CAPSULE PO SCH ×2 (14:24→22:29)
[2023-01-12] MEDS: PIPERACILLIN/TAZOB 3.375 GM 3.375 GM in DEXTROSE 5%-WATER - 50 ML IVPB SCH ×2 (16:01→17:08)
[2023-01-12] MEDS ORDERED: ACETAMINOPHEN 325 MG TABLET (FP) PO PRN (21:19)
[2023-01-12] MEDS: levETIRAcetam 250 MG TABLET PO SCH (22:28)
[2023-01-12] MEDS: QUEtiapine FUMARATE 100 MG TABLET (FP) PO SCH (22:29)
[2023-01-12] MEDS: ATORVASTATIN CA 40 MG TABLET (FP) PO SCH (22:29)
[2023-01-12] MEDS: BUDESONIDE/FORMETEROL FUMARATE 160/4.5 mcg INHALER IH SCH (22:45)
[2023-01-12] MEDS: DIVALPROEX NA *ER* EXTEND REL 500 MG TABLET.SA (FP) PO SCH (22:45)
[2023-01-13] MEDS ORDERED: PIPERACILLIN/TAZOBACTAM 3.375 GM VIAL IVPB ONE (00:29)
[2023-01-13] MEDS: ALBUTEROL SO4 2.5/IPRATROPIUM 0.5 INH SOL 3 ML VIAL.NEB. NEB SCH ×6 (00:54→19:43)
[2023-01-13] MEDS: PIPERACILLIN/TAZOB 3.375 GM 3.375 GM in DEXTROSE 5%-WATER - 50 ML IVPB SCH ×3 (01:32→18:34)
[2023-01-13] MEDS: methylPREDNISolone NA SUCC 40 MG/1 ML VIAL IVPUSH SCH ×3 (01:32→18:34)
[2023-01-13] MEDS: GABAPENTIN 300 MG CAPSULE PO SCH ×3 (06:28→21:15)
[2023-01-13] MEDS: INSULIN SLIDING SCALE (NOVOLOG) 1 VIAL SQ SCH ×4 (06:31→21:31)
[2023-01-13] MEDS: PANTOPRAZOLE SODIUM 40 MG VIAL IVPUSH SCH ×2 (09:54→21:16)
[2023-01-13] MEDS: DIVALPROEX NA *ER* EXTEND REL 500 MG TABLET.SA (FP) PO SCH ×2 (09:54→21:14)
[2023-01-13] MEDS: FUROSEMIDE 40 MG/4 ML INJECTABLE VIAL IVPUSH SCH (09:54)
[2023-01-13] MEDS: levETIRAcetam 250 MG TABLET PO SCH ×2 (09:54→21:14)
[2023-01-13] MEDS: QUEtiapine FUMARATE 100 MG TABLET (FP) PO SCH ×2 (09:54→21:17)
[2023-01-13] MEDS: FLUoxetine HCL 20 MG CAPSULE PO SCH (09:54)
[2023-01-13] MEDS: metoPROLOL SUCCINATE 25 MG TAB.SR.24H (FP) PO SCH (09:54)
[2023-01-13] MEDS: BUDESONIDE/FORMETEROL FUMARATE 160/4.5 mcg INHALER IH SCH ×2 (10:23→21:18)
[2023-01-13 10:27] LABS: HEMATOCRIT 25.2 % (32.4-45.2); HEMOGLOBIN 8.3 GM/dL (10.7-15.3); MCH 29.7 pg (25.7-33.7); MEAN PLT VOLUME 8.2 fl (7.5-11.1); PLATELET COUNT 326 10^3/uL (134-434); RDW 17.3 % (11.6-15.6); WHITE BLOOD COUNT 12.8 K/mm3 (4.0-10.0)
[2023-01-13 10:41] LABS: POTASSIUM 4.7 mmol/L (3.5-5.1)
[2023-01-13 10:53] LABS: ANISOCYTOSIS 0; HELMET CELLS 0; HOWELL-JOLLY BODIES 0; MACROCYTOSIS 0; OVALOCYTE 0; ROULEAU 0; SICKELED CELLS 0; TARGET CELLS 0; TEAR DROP CELLS 0; TOXIC GRANULATION 0
[2023-01-13 10:57] LABS: BLOOD UREA NITROGEN 36.7 mg/dL (7-18)
[2023-01-13 11:01] LABS: ALBUMIN 2.7 g/dl (3.4-5.0); CALCIUM 8.6 mg/dL (8.5-10.1)
[2023-01-13 11:05] LABS: BILIRUBIN,TOTAL 0.6 mg/dL (0.2-1); TOT PROT 7.5 g/dl (6.4-8.2)
[2023-01-13] MEDS: ONDANSETRON 4 MG/2 ML VIAL IVPB SCH ×3 (14:25→21:14)
[2023-01-13] MEDS ORDERED: INSULIN (NOVOLOG) ASPART 100 UNITS/ML 10ML VIAL ONE ×2 (16:57→21:27)
[2023-01-13] MEDS: ATORVASTATIN CA 40 MG TABLET (FP) PO SCH (21:14)
[2023-01-14] MEDS: ALBUTEROL SO4 2.5/IPRATROPIUM 0.5 INH SOL 3 ML VIAL.NEB. NEB SCH ×6 (00:15→20:19)
[2023-01-14] MEDS: ONDANSETRON 4 MG/2 ML VIAL IVPB SCH (01:50)
[2023-01-14] MEDS: PIPERACILLIN/TAZOB 3.375 GM 3.375 GM in DEXTROSE 5%-WATER - 50 ML IVPB SCH ×3 (01:50→18:26)
[2023-01-14] MEDS: methylPREDNISolone NA SUCC 40 MG/1 ML VIAL IVPUSH SCH ×2 (01:51→10:18)
[2023-01-14] MEDS: GABAPENTIN 300 MG CAPSULE PO SCH ×3 (05:44→21:03)
[2023-01-14] MEDS ORDERED: INSULIN (NOVOLOG) ASPART 100 UNITS/ML 10ML VIAL ONE ×5 (05:57→21:32)
[2023-01-14] MEDS: INSULIN SLIDING SCALE (NOVOLOG) 1 VIAL SQ SCH ×4 (05:59→21:12)
[2023-01-14] MEDS: PANTOPRAZOLE SODIUM 40 MG VIAL IVPUSH SCH ×2 (09:18→21:03)
[2023-01-14] MEDS: levETIRAcetam 250 MG TABLET PO SCH ×2 (09:45→21:02)
[2023-01-14] MEDS: QUEtiapine FUMARATE 100 MG TABLET (FP) PO SCH ×2 (09:45→21:03)
[2023-01-14] MEDS: FLUoxetine HCL 20 MG CAPSULE PO SCH (09:45)
[2023-01-14] MEDS: metoPROLOL SUCCINATE 25 MG TAB.SR.24H (FP) PO SCH (09:45)
[2023-01-14] MEDS: DIVALPROEX NA *ER* EXTEND REL 500 MG TABLET.SA (FP) PO SCH ×2 (09:48→21:02)
[2023-01-14] MEDS: BUDESONIDE/FORMETEROL FUMARATE 160/4.5 mcg INHALER IH SCH ×2 (09:49→21:04)
[2023-01-14] MEDS: FUROSEMIDE 40 MG/4 ML INJECTABLE VIAL IVPUSH SCH (10:32)
[2023-01-14 10:50] LABS: HEMATOCRIT 24.8 % (32.4-45.2); HEMOGLOBIN 8.2 GM/dL (10.7-15.3); MCH 29.9 pg (25.7-33.7); MCHC 33.1 g/dl (32.0-36.0); MEAN CELL VOLUME 90.2 fl (80-96); MEAN PLT VOLUME 8.6 fl (7.5-11.1); PLATELET COUNT 311 10^3/uL (134-434); RBC 2.75 M/mm3 (3.60-5.2); RDW 16.9 % (11.6-15.6); WHITE BLOOD COUNT 13.3 K/mm3 (4.0-10.0)
[2023-01-14] MEDS ORDERED: ONDANSETRON 4 MG/2 ML VIAL IVPUSH PRN (10:50)
[2023-01-14] MEDS: SODIUM PHOSPHATE/NA BIPHOS 133 ML ENEMA RC ONE ×2 (13:23→16:46)
[2023-01-14] MEDS: ATORVASTATIN CA 40 MG TABLET (FP) PO SCH (21:02)
[2023-01-14] MEDS: SENNOSIDES 8.6MG TABLET (FP) PO SCH (21:09)
[2023-01-14] MEDS: INSULIN (LEVEMIR) 100 UNITS/ML UNITS SQ SCH (21:10)
[2023-01-14] MEDS ORDERED: INSULIN (LEVEMIR) 100 UNITS/ML UNITS SQ ONE (21:32)
[2023-01-14] MEDS ORDERED: INSULIN (LEVEMIR) 100 UNITS/ML UNITS SQ SCH (22:00)
[2023-01-15] MEDS ORDERED: INSULIN (NOVOLOG) ASPART 100 UNITS/ML 10ML VIAL SQ ONE (00:27)
[2023-01-15] MEDS: ALBUTEROL SO4 2.5/IPRATROPIUM 0.5 INH SOL 3 ML VIAL.NEB. NEB SCH ×7 (00:41→23:10)
[2023-01-15] MEDS: PIPERACILLIN/TAZOB 3.375 GM 3.375 GM in DEXTROSE 5%-WATER - 50 ML IVPB SCH ×3 (02:24→17:45)
[2023-01-15 02:39] VITALS: RESP 18
[2023-01-15] MEDS: INSULIN (LEVEMIR) 100 UNITS/ML UNITS SQ SCH ×2 (06:46→21:25)
[2023-01-15] MEDS: GABAPENTIN 300 MG CAPSULE PO SCH ×4 (06:46→21:25)
[2023-01-15] MEDS: INSULIN SLIDING SCALE (NOVOLOG) 1 VIAL SQ SCH ×4 (06:50→21:28)
[2023-01-15] MEDS: INSULIN (NOVOLOG) ASPART 100 UNITS/ML 10ML VIAL SQ SCH ×3 (06:50→16:22)
[2023-01-15] MEDS ORDERED: INSULIN (NOVOLOG) ASPART 100 UNITS/ML 10ML VIAL ONE (07:01)
[2023-01-15] MEDS ORDERED: INSULIN (LEVEMIR) 100 UNITS/ML UNITS SQ ONE (07:01)
[2023-01-15] MEDS: SENNOSIDES 8.6MG TABLET (FP) PO SCH ×2 (09:58→21:23)
[2023-01-15] MEDS: PANTOPRAZOLE SODIUM 40 MG VIAL IVPUSH SCH ×2 (09:58→21:29)
[2023-01-15] MEDS: levETIRAcetam 250 MG TABLET PO SCH ×2 (09:59→21:23)
[2023-01-15] MEDS: DIVALPROEX NA *ER* EXTEND REL 500 MG TABLET.SA (FP) PO SCH ×2 (09:59→21:25)
[2023-01-15] MEDS: QUEtiapine FUMARATE 100 MG TABLET (FP) PO SCH ×2 (09:59→21:23)
[2023-01-15] MEDS: FLUoxetine HCL 20 MG CAPSULE PO SCH (09:59)
[2023-01-15] MEDS: metoPROLOL SUCCINATE 25 MG TAB.SR.24H (FP) PO SCH (09:59)
[2023-01-15] MEDS ORDERED: methylPREDNISolone NA SUCC 40 MG/1 ML VIAL IVPUSH SCH (10:00)
[2023-01-15] MEDS: BUDESONIDE/FORMETEROL FUMARATE 160/4.5 mcg INHALER IH SCH ×2 (10:06→21:29)
[2023-01-15] MEDS: FUROSEMIDE 40 MG/4 ML INJECTABLE VIAL IVPUSH SCH (10:48)
[2023-01-15 18:07] LABS: FREE KAPPA,SERUM 107.1 mg/L (3.3-19.4)
[2023-01-15] MEDS: ATORVASTATIN CA 40 MG TABLET (FP) PO SCH (21:23)
[2023-01-15] MEDS: BISACODYL 5 MG TABLET.DR (FP) PO SCH (21:23)
[2023-01-16] MEDS: PIPERACILLIN/TAZOB 3.375 GM 3.375 GM in DEXTROSE 5%-WATER - 50 ML IVPB SCH ×3 (02:00→17:17)
[2023-01-16] MEDS: ALBUTEROL SO4 2.5/IPRATROPIUM 0.5 INH SOL 3 ML VIAL.NEB. NEB SCH ×6 (03:29→23:32)
[2023-01-16] MEDS: INSULIN (LEVEMIR) 100 UNITS/ML UNITS SQ SCH (06:13)
[2023-01-16] MEDS: GABAPENTIN 300 MG CAPSULE PO SCH ×2 (06:13→13:13)
[2023-01-16] MEDS: INSULIN (NOVOLOG) ASPART 100 UNITS/ML 10ML VIAL SQ SCH ×3 (06:19→16:41)
[2023-01-16] MEDS: INSULIN SLIDING SCALE (NOVOLOG) 1 VIAL SQ SCH ×4 (06:19→21:55)
[2023-01-16] MEDS: metoPROLOL SUCCINATE 25 MG TAB.SR.24H (FP) PO SCH (09:34)
[2023-01-16] MEDS: FLUoxetine HCL 20 MG CAPSULE PO SCH ×2 (09:34→09:57)
[2023-01-16] MEDS: FUROSEMIDE 40 MG/4 ML INJECTABLE VIAL IVPUSH SCH (09:34)
[2023-01-16] MEDS: SENNOSIDES 8.6MG TABLET (FP) PO SCH ×2 (09:34→21:48)
[2023-01-16] MEDS: QUEtiapine FUMARATE 100 MG TABLET (FP) PO SCH ×2 (09:34→21:49)
[2023-01-16] MEDS: levETIRAcetam 250 MG TABLET PO SCH ×2 (09:34→21:49)
[2023-01-16] MEDS: BISACODYL 5 MG TABLET.DR (FP) PO SCH ×2 (09:35→21:48)
[2023-01-16] MEDS: DIVALPROEX NA *ER* EXTEND REL 500 MG TABLET.SA (FP) PO SCH ×2 (09:35→21:54)
[2023-01-16] MEDS: PANTOPRAZOLE SODIUM 40 MG VIAL IVPUSH SCH ×2 (09:36→21:52)
[2023-01-16] MEDS: BUDESONIDE/FORMETEROL FUMARATE 160/4.5 mcg INHALER IH SCH ×2 (09:37→21:51)
[2023-01-16 10:13] LABS: HEMATOCRIT 25.7 % (32.4-45.2); HEMOGLOBIN 8.4 GM/dL (10.7-15.3); MCH 29.4 pg (25.7-33.7); MCHC 32.7 g/dl (32.0-36.0); MEAN CELL VOLUME 90.1 fl (80-96); MEAN PLT VOLUME 8.7 fl (7.5-11.1); PLATELET COUNT 297 10^3/uL (134-434); RBC 2.85 M/mm3 (3.60-5.2); RDW 16.5 % (11.6-15.6); WHITE BLOOD COUNT 17.9 K/mm3 (4.0-10.0)
[2023-01-16 11:00] LABS: POTASSIUM 4.4 mmol/L (3.5-5.1)
[2023-01-16 11:02] LABS: ALBUMIN 3.1 g/dl (3.4-5.0); CALCIUM 8.6 mg/dL (8.5-10.1)
[2023-01-16 11:05] LABS: CREATININE 2.3 mg/dL (0.55-1.3)
[2023-01-16 11:06] LABS: TOTAL IRON BINDING CAPACITY 316 ug/dL (250-450)
[2023-01-16 11:07] LABS: BILIRUBIN,TOTAL 0.4 mg/dL (0.2-1); TOT PROT 7.8 g/dl (6.4-8.2)
[2023-01-16 11:14] LABS: IRON SERUM 19 ug/dL (50-175)
[2023-01-16 11:21] LABS: BLOOD UREA NITROGEN 89.2 mg/dL (7-18)
[2023-01-16] MEDS ORDERED: INSULIN (LEVEMIR) 100 UNITS/ML UNITS SQ SCH (11:28)
[2023-01-16 17:34] LABS: PHENCYCLIDINE,URINE NEGATIVE (NEGATIVE); URINE BARBITURATES NEGATIVE (NEGATIVE)
[2023-01-16 17:35] LABS: METHADONE, UR NEGATIVE (NEGATIVE); URINE AMPHETAMINES NEGATIVE (NEGATIVE)
[2023-01-16 17:41] LABS: COCAINE, UR NEGATIVE (NEGATIVE); OPIATES, URI POSITIVE (NEGATIVE); URINE BENZODIAZEPINES POSITIVE (NEGATIVE)
[2023-01-16] MEDS ORDERED: DEXTROSE 50%-WATER 25 GM/50 ML DISP.SYRIN IVPUSH ONE (20:55)
[2023-01-16] MEDS ORDERED: INSULIN (NOVOLOG) ASPART 100 UNITS/ML 10ML VIAL ONE (21:13)
[2023-01-16] MEDS ORDERED: INSULIN (LEVEMIR) 100 UNITS/ML UNITS SQ ONE (21:13)
[2023-01-16] MEDS: ATORVASTATIN CA 40 MG TABLET (FP) PO SCH (21:49)
[2023-01-17] MEDS: PIPERACILLIN/TAZOB 3.375 GM 3.375 GM in DEXTROSE 5%-WATER - 50 ML IVPB SCH ×3 (01:17→17:19)
[2023-01-17] MEDS: ALBUTEROL SO4 2.5/IPRATROPIUM 0.5 INH SOL 3 ML VIAL.NEB. NEB SCH ×5 (05:15→19:32)
[2023-01-17] MEDS ORDERED: DEXTROSE 50%-WATER 25 GM/50 ML DISP.SYRIN IVPUSH ONE (06:05)
[2023-01-17] MEDS: INSULIN SLIDING SCALE (NOVOLOG) 1 VIAL SQ SCH ×3 (06:17→16:27)
[2023-01-17] MEDS: INSULIN (NOVOLOG) ASPART 100 UNITS/ML 10ML VIAL SQ SCH ×3 (06:17→16:26)
[2023-01-17] MEDS ORDERED: INSULIN (LEVEMIR) 100 UNITS/ML UNITS SQ SCH (07:00)
[2023-01-17] MEDS ORDERED: IRON SUCROSE INJECTION 200 MG in SODIUM CHLORIDE 90 ML IVPB ONE (09:00)
[2023-01-17] MEDS ORDERED: predniSONE 10 MG TABLET (UD) PO SCH (10:00)
[2023-01-17] MEDS: levETIRAcetam 250 MG TABLET PO SCH (10:10)
[2023-01-17] MEDS: SENNOSIDES 8.6MG TABLET (FP) PO SCH (10:11)
[2023-01-17] MEDS: QUEtiapine FUMARATE 100 MG TABLET (FP) PO SCH (10:14)
[2023-01-17] MEDS: BISACODYL 5 MG TABLET.DR (FP) PO SCH (10:14)
[2023-01-17] MEDS: FLUoxetine HCL 20 MG CAPSULE PO SCH (10:14)
[2023-01-17] MEDS: metoPROLOL SUCCINATE 25 MG TAB.SR.24H (FP) PO SCH (10:14)
[2023-01-17] MEDS: DIVALPROEX NA *ER* EXTEND REL 500 MG TABLET.SA (FP) PO SCH (10:14)
[2023-01-17] MEDS: PANTOPRAZOLE SODIUM 40 MG VIAL IVPUSH SCH (10:15)
[2023-01-17] MEDS: BUDESONIDE/FORMETEROL FUMARATE 160/4.5 mcg INHALER IH SCH (10:28)
[2023-01-17 22:09] VITALS: BP 149/78; PULSE 82; TEMP 98.3
== END 2023-01-17 20:45 | disposition home or self-care (01) | DRG 133 ==
LOC: JER 14:10 → JERBED 18:10 → J6S 01-12 21:04
PROVIDERS: ADMIT Internal Medicine; ATTEND Family Medicine
DX: J96.02 Acute respiratory failure with hypercapnia (principal); J44.0 Chronic obstructive pulmonary disease with (acute) lower respiratory infection; J44.1 Chronic obstructive pulmonary disease with (acute) exacerbation; N18.9 Chronic kidney disease, unspecified; E66.01 Morbid (severe) obesity due to excess calories; J96.01 Acute respiratory failure with hypoxia; D62 Acute posthemorrhagic anemia; I11.0 Hypertensive heart disease with heart failure; I50.32 Chronic diastolic (congestive) heart failure; I25.10 Atherosclerotic heart disease of native coronary artery without angina pectoris; E78.5 Hyperlipidemia, unspecified; E11.9 Type 2 diabetes mellitus without complications; F31.9 Bipolar disorder, unspecified; F41.8 Other specified anxiety disorders; I44.0 Atrioventricular block, first degree; I27.20 Pulmonary hypertension, unspecified; B19.20 Unspecified viral hepatitis C without hepatic coma; F16.10 Hallucinogen abuse, uncomplicated; R29.6 Repeated falls; M54.89 Other dorsalgia; J98.11 Atelectasis; F19.10 Other psychoactive substance abuse, uncomplicated; K59.00 Constipation, unspecified; I48.0 Paroxysmal atrial fibrillation; G40.909 Epilepsy, unspecified, not intractable, without status epilepticus; Z95.5 Presence of coronary angioplasty implant and graft; Z99.81 Dependence on supplemental oxygen
CPT/HCPCS: 0241U-QW; 36415; 36430; 36600; 70450-TC; 71045-TC-FY; 80048; 80053; 80307; 82728; 82803; 82962; 83540; 83550; 83615; 83735; 83880; 83883; 84100; 84443; 84484; 85025; 85027; 85610; 85730; 86850; 86900; 86901; 86922; 87040; 93005; 93010; 94640; 94660; 97116-GP; 97162-GP; 99285-25; J1756; P9058

== ENCOUNTER 2023-01-20 23:59 | Inpatient (IN) | payer OTHER ==
[2023-01-21] MEDS ORDERED: ROCURONIUM BROMIDE 50 MG/5 ML SYRINGE ONE (00:12)
[2023-01-21] MEDS ORDERED: ETOMIDATE 20 MG/10 ML VIAL IVPUSH ONE (00:21)
[2023-01-21] MEDS ORDERED: ROCURONIUM BROMIDE 50 MG/5 ML VIAL IV ONE ×2 (00:21→00:57)
[2023-01-21 00:41] LABS: ALLENS TEST POSITIVE; ARTERIAL BLD GAS O2 SATURATION 99.5 % (95-98); ARTERIAL BLOOD GAS PO2 229.5 mmHg (80-100); ARTERIAL BLOOD GAS pH 7.447 (7.350-7.450)
[2023-01-21 00:42] LABS: VENT MODE V-A/C; VENT RATE 18
[2023-01-21] MEDS ORDERED: MIDAZOLAM IN 0.9 % SOD.CHLORID 100 MG/100 ML PLAST..BAG IVPB SCH (01:00)
[2023-01-21] MEDS ORDERED: dilTIAZem HCL 50 MG/10 ML - 10 ML VIAL IVPUSH ONE ×2 (01:07→09:30)
[2023-01-21 01:25] LABS: INR 1.11 (0.83-1.09); PROTHROMBIN TIME (PATIENT) 12.9 SEC (9.7-13.0)
[2023-01-21] MEDS ORDERED: PROPOFOL 200 MG/20 ML VIAL IVPUSH ONE (01:34)
[2023-01-21 01:37] LABS: CHLORIDE 100 mmol/L (98-107); POTASSIUM 3.8 mmol/L (3.5-5.1); SODIUM 139 mmol/L (136-145)
[2023-01-21] MEDS ORDERED: dilTIAZem HCL 125 MG/25 ML - 25 ML VIAL ONE ×2 (01:40→09:22)
[2023-01-21 01:41] LABS: ALBUMIN 2.6 g/dl (3.4-5.0); ANION GAP 5 MMOL/L (8-16); CO2 34 mmol/L (21-32); MAGNESIUM 2.4 mg/dL (1.8-2.4)
[2023-01-21] MEDS ORDERED: ALBUTEROL SO4 2.5/IPRATROPIUM 0.5 INH SOL 3 ML VIAL.NEB. NEB ONE (01:42)
[2023-01-21 01:43] LABS: SGPT/ALT 20 U/L (13-61)
[2023-01-21 01:44] LABS: CREATININE 0.8 mg/dL (0.55-1.3); SGOT/AST 16 U/L (15-37)
[2023-01-21 01:45] LABS: BILIRUBIN,TOTAL 0.6 mg/dL (0.2-1); TOT PROT 6.9 g/dl (6.4-8.2)
[2023-01-21 01:47] LABS: ALK PHOS 78 U/L (45-117)
[2023-01-21 01:49] LABS: N-TERMINAL BNP 10986.8 pg/ml (5-125)
[2023-01-21 01:58] LABS: BLOOD UREA NITROGEN 21.4 mg/dL (7-18); GLUCOSE,RANDOM 400 mg/dL (74-106)
[2023-01-21 01:59] LABS: BASO % 0.9 % (0-2.0); EOS % 1.6 % (0-4.5); HEMATOCRIT 29.7 % (32.4-45.2); HEMOGLOBIN 9.7 GM/dL (10.7-15.3); LYMPH % 11.6 % (8-40); MCH 29.2 pg (25.7-33.7); MCHC 32.7 g/dl (32.0-36.0); MEAN CELL VOLUME 89.2 fl (80-96); MEAN PLT VOLUME 9.4 fl (7.5-11.1); MONO % 8.6 % (3.8-10.2); NEUT % 77.3 % (42.8-82.8); PLATELET COUNT 397 10^3/uL (134-434); RBC 3.33 M/mm3 (3.60-5.2); WHITE BLOOD COUNT 15.9 K/mm3 (4.0-10.0)
[2023-01-21] MEDS ORDERED: FUROSEMIDE 40 MG/4 ML INJECTABLE VIAL IVPUSH ONE ×2 (02:07→11:15)
[2023-01-21] MEDS ORDERED: FUROSEMIDE 40 MG/4 ML INJECTABLE VIAL ONE (02:17)
[2023-01-21] MEDS ORDERED: PIPERACILLIN/TAZOB 4.5 GM 4.5 GM in DEXTROSE 5%-WATER 100 ML IVPB ONE (02:33)
[2023-01-21] MEDS ORDERED: VANCOMYCIN 1 GRAM (PRE-DOCKED) 1,000 MG/250 ML BAG IVPB ONE ×2 (03:15→03:20)
[2023-01-21] MEDS ORDERED: PIPERACILLIN/TAZOB 4.5 GM 4.5 GM/100 ML BAG IVPB ONE (03:20)
[2023-01-21] MEDS ORDERED: PROPOFOL 1,000,000 MCG/100 ML VIAL ONE (04:03)
[2023-01-21] MEDS: PROPOFOL 1,000,000 MCG/100 ML VIAL IVPB SCH (05:00)
[2023-01-21] MEDS: FENTANYL NS IVPB 500 MCG/100 ML BAG IVPB SCH ×2 (05:00→05:29)
[2023-01-21] MEDS: INSULIN SLIDING SCALE (NOVOLOG) 1 VIAL SQ SCH ×4 (05:32→22:00)
[2023-01-21] MEDS: methylPREDNISolone NA SUCC 40 MG/1 ML VIAL IVPUSH SCH ×3 (05:37→17:15)
[2023-01-21] MEDS ORDERED: dilTIAZem HCL 30 MG TABLET NGT SCH ×2 (06:00→06:19)
[2023-01-21] MEDS: VALPROATE SODIUM 250 MG/5 ML UNIT DOSE CUP NGT SCH ×4 (06:28→23:06)
[2023-01-21 07:44] LABS: VENOUS BASE EXCESS 8.9 mmol/L (-2-2); VENOUS O2 SATURATION 60.3 % (70-80); VENOUS PCO2 43.1 mmHg (38-52); VENOUS PH 7.501 (7.310-7.410)
[2023-01-21] MEDS: ALBUTEROL SO4 2.5/IPRATROPIUM 0.5 INH SOL 3 ML VIAL.NEB. NEB SCH ×4 (07:45→20:35)
[2023-01-21 07:52] LABS: BASO % 0.5 % (0-2.0); EOS % 0.2 % (0-4.5); HEMATOCRIT 26.2 % (32.4-45.2); HEMOGLOBIN 8.5 GM/dL (10.7-15.3); LYMPH % 5.9 % (8-40); MCH 29.4 pg (25.7-33.7); MCHC 32.4 g/dl (32.0-36.0); MEAN CELL VOLUME 90.9 fl (80-96); MEAN PLT VOLUME 9.3 fl (7.5-11.1); MONO % 7.6 % (3.8-10.2); NEUT % 85.8 % (42.8-82.8); PLATELET COUNT 278 10^3/uL (134-434); RBC 2.89 M/mm3 (3.60-5.2); RDW 15.8 % (11.6-15.6); WHITE BLOOD COUNT 13.7 K/mm3 (4.0-10.0)
[2023-01-21 08:21] LABS: CHLORIDE 100 mmol/L (98-107); POTASSIUM 3.6 mmol/L (3.5-5.1); SODIUM 140 mmol/L (136-145)
[2023-01-21 08:22] LABS: ALBUMIN 2.4 g/dl (3.4-5.0); ANION GAP 8 MMOL/L (8-16); BLOOD UREA NITROGEN 22.6 mg/dL (7-18); CALCIUM 7.8 mg/dL (8.5-10.1); CO2 33 mmol/L (21-32); GLUCOSE,RANDOM 350 mg/dL (74-106)
[2023-01-21 08:24] LABS: CREATININE 0.8 mg/dL (0.55-1.3); SGOT/AST 15 U/L (15-37); SGPT/ALT 16 U/L (13-61)
[2023-01-21 08:26] LABS: BILIRUBIN,TOTAL 0.9 mg/dL (0.2-1)
[2023-01-21 08:28] LABS: ALK PHOS 66 U/L (45-117)
[2023-01-21 08:33] LABS: EPI CELLS >36 /uL (0-25.1); HYALINE CASTS 2 /uL (0-3.1); PH,URINE 5.5 (5.0-8.0); URINE APPEARANCE CLEAR; URINE BACTERIA 52 /uL (0-1359); URINE BILIRUBIN NEGATIVE (NEGATIVE); URINE COLOR YELLOW; URINE GLUCOSE (UA) 3+ (NEGATIVE); URINE KETONE TRACE (NEGATIVE); URINE LEUK ESTERASE NEGATIVE (NEGATIVE); URINE NITRITE NEGATIVE (NEGATIVE); URINE PROTEIN 3+ (NEGATIVE); URINE UROBILINOGEN 0.2 mg/dL (0.2-1.0)
[2023-01-21 08:58] LABS: URINE RBC 35.8 /uL (0-23.9); URINE WBC 109.3 /uL (0-25.8)
[2023-01-21 08:59] LABS: YEAST NEGATIVE (NEGATIVE)
[2023-01-21] MEDS: QUEtiapine FUMARATE 100 MG TABLET (FP) PO SCH ×2 (09:11→21:32)
[2023-01-21] MEDS: INSULIN (LEVEMIR) 100 UNITS/ML UNITS SQ SCH (09:13)
[2023-01-21] MEDS: PANTOPRAZOLE SODIUM 40 MG VIAL IVPUSH SCH (09:13)
[2023-01-21] MEDS: ENOXAPARIN NA (PORCINE) 40 MG/0.4 ML DISP.SYRIN SQ SCH ×2 (09:14→21:29)
[2023-01-21] MEDS: MUPIROCIN 2% TOPICAL OINTMENT FOR DECOLONIZATION NS SCH ×2 (09:14→22:06)
[2023-01-21] MEDS ORDERED: ENOXAPARIN NA (PORCINE) 40 MG/0.4 ML DISP.SYRIN SQ SCH (10:00)
[2023-01-21] MEDS ORDERED: PIPERACILLIN/TAZOB 3.375 GM 3.375 GM in DEXTROSE 5%-WATER - 50 ML IVPB SCH (10:00)
[2023-01-21] MEDS ORDERED: levETIRAcetam 500 MG/5 ML ORAL SOLUTION (UNIT-DOSE CUPS) NGT SCH (10:00)
[2023-01-21] MEDS ORDERED: levETIRAcetam 500 MG/5 ML ORAL SOLUTION (UNIT-DOSE CUPS) PO SCH (10:00)
[2023-01-21] MEDS ORDERED: DIVALPROEX SODIUM 125 MG SPRINKLE CAPS PO SCH (10:00)
[2023-01-21] MEDS ORDERED: APIXABAN 5 MG TABLET NGT SCH (10:00)
[2023-01-21] MEDS ORDERED: INSULIN (LEVEMIR) 100 UNITS/ML UNITS SQ SCH (10:00)
[2023-01-21] MEDS ORDERED: INSULIN (NOVOLOG) ASPART 100 UNITS/ML 10ML VIAL ONE (11:02)
[2023-01-21 12:15] LABS: COCAINE, UR NEGATIVE (NEGATIVE); METHADONE, UR NEGATIVE (NEGATIVE); PHENCYCLIDINE,URINE NEGATIVE (NEGATIVE); URINE AMPHETAMINES NEGATIVE (NEGATIVE); URINE BARBITURATES NEGATIVE (NEGATIVE)
[2023-01-21 12:19] LABS: OPIATES, URI POSITIVE (NEGATIVE); URINE BENZODIAZEPINES POSITIVE (NEGATIVE)
[2023-01-21] MEDS: PIPERACILLIN/TAZOB 3.375 GM 3.375 GM in DEXTROSE 5%-WATER - 50 ML IVPB SCH (17:14)
[2023-01-21] MEDS: CHLORHEXIDINE GLUCONATE 4% CLEANSER FOR DECOLONIZATION TP SCH (21:28)
[2023-01-21] MEDS: levETIRAcetam 500 MG/5 ML INJECTION VIAL IVPB SCH (21:29)
[2023-01-22] MEDS: PIPERACILLIN/TAZOB 3.375 GM 3.375 GM in DEXTROSE 5%-WATER - 50 ML IVPB SCH ×3 (01:03→17:08)
[2023-01-22] MEDS: methylPREDNISolone NA SUCC 40 MG/1 ML VIAL IVPUSH SCH ×3 (01:03→17:09)
[2023-01-22] MEDS: INSULIN SLIDING SCALE (NOVOLOG) 1 VIAL SQ SCH ×4 (05:00→22:40)
[2023-01-22] MEDS: VALPROATE SODIUM 250 MG/5 ML UNIT DOSE CUP NGT SCH ×3 (05:04→17:08)
[2023-01-22] MEDS: PROPOFOL 1,000,000 MCG/100 ML VIAL IVPB SCH (05:08)
[2023-01-22] MEDS: FENTANYL NS IVPB 500 MCG/100 ML BAG IVPB SCH (05:09)
[2023-01-22 07:46] LABS: HEMATOCRIT 27.5 % (32.4-45.2); HEMOGLOBIN 8.7 GM/dL (10.7-15.3); MCH 28.7 pg (25.7-33.7); MCHC 31.7 g/dl (32.0-36.0); MEAN CELL VOLUME 90.4 fl (80-96); MEAN PLT VOLUME 9.3 fl (7.5-11.1); PLATELET COUNT 296 10^3/uL (134-434); RBC 3.05 M/mm3 (3.60-5.2); RDW 16.2 % (11.6-15.6); WHITE BLOOD COUNT 12.2 K/mm3 (4.0-10.0)
[2023-01-22 07:51] LABS: INR 1.14 (0.83-1.09); PROTHROMBIN TIME (PATIENT) 13.2 SEC (9.7-13.0)
[2023-01-22 07:54] LABS: ACTIVATED PTT 32.2 SECONDS (25.2-36.5)
[2023-01-22 08:54] LABS: POTASSIUM 4.1 mmol/L (3.5-5.1)
[2023-01-22 08:56] LABS: ALBUMIN 2.5 g/dl (3.4-5.0); BLOOD UREA NITROGEN 29.9 mg/dL (7-18); CALCIUM 7.9 mg/dL (8.5-10.1)
[2023-01-22 08:57] LABS: MAGNESIUM 2.4 mg/dL (1.8-2.4)
[2023-01-22 08:59] LABS: CREATININE 1.2 mg/dL (0.55-1.3); PHOSPHOROUS 3.6 mg/dL (2.5-4.9)
[2023-01-22 09:02] LABS: BILIRUBIN,TOTAL 0.4 mg/dL (0.2-1); TOT PROT 6.7 g/dl (6.4-8.2)
[2023-01-22] MEDS: PANTOPRAZOLE SODIUM 40 MG VIAL IVPUSH SCH (09:27)
[2023-01-22] MEDS: levETIRAcetam 500 MG/5 ML INJECTION VIAL IVPB SCH ×2 (09:27→21:56)
[2023-01-22] MEDS: QUEtiapine FUMARATE 100 MG TABLET (FP) PO SCH ×2 (09:27→21:58)
[2023-01-22] MEDS: INSULIN (LEVEMIR) 100 UNITS/ML UNITS SQ SCH (09:28)
[2023-01-22] MEDS: ENOXAPARIN NA (PORCINE) 40 MG/0.4 ML DISP.SYRIN SQ SCH (09:28)
[2023-01-22] MEDS: MUPIROCIN 2% TOPICAL OINTMENT FOR DECOLONIZATION NS SCH ×2 (09:28→21:54)
[2023-01-22] MEDS: ALBUTEROL SO4 2.5/IPRATROPIUM 0.5 INH SOL 3 ML VIAL.NEB. NEB SCH ×4 (09:32→20:30)
[2023-01-22] MEDS ORDERED: FLUoxetine HCL 20 MG CAPSULE PO SCH (10:00)
[2023-01-22] MEDS ORDERED: ENOXAPARIN NA (PORCINE) 120 MG/0.8 ML DISP.SYRIN SQ SCH (11:45)
[2023-01-22] MEDS ORDERED: INSULIN (NOVOLOG) ASPART 100 UNITS/ML 10ML VIAL ONE (12:25)
[2023-01-22] MEDS: CHLORHEXIDINE GLUCONATE 4% CLEANSER FOR DECOLONIZATION TP SCH (21:55)
[2023-01-22] MEDS ORDERED: ATORVASTATIN CA 40 MG TABLET (FP) PO SCH (22:00)
[2023-01-23] MEDS: methylPREDNISolone NA SUCC 40 MG/1 ML VIAL IVPUSH SCH ×4 (01:47→22:00)
[2023-01-23] MEDS: PIPERACILLIN/TAZOB 3.375 GM 3.375 GM in DEXTROSE 5%-WATER - 50 ML IVPB SCH ×3 (01:53→18:32)
[2023-01-23] MEDS: INSULIN SLIDING SCALE (NOVOLOG) 1 VIAL SQ SCH ×4 (06:17→22:32)
[2023-01-23] MEDS: VALPROATE SODIUM 250 MG/5 ML UNIT DOSE CUP NGT SCH ×5 (07:43→22:00)
[2023-01-23] MEDS: FENTANYL NS IVPB 500 MCG/100 ML BAG IVPB SCH (07:47)
[2023-01-23] MEDS: PROPOFOL 1,000,000 MCG/100 ML VIAL IVPB SCH (07:47)
[2023-01-23] MEDS: ALBUTEROL SO4 2.5/IPRATROPIUM 0.5 INH SOL 3 ML VIAL.NEB. NEB SCH ×4 (08:05→20:23)
[2023-01-23 08:14] LABS: ALBUMIN 2.6 g/dl (3.4-5.0); BLOOD UREA NITROGEN 38.8 mg/dL (7-18); HEMATOCRIT 25.8 % (32.4-45.2); HEMOGLOBIN 8.6 GM/dL (10.7-15.3); MAGNESIUM 2.4 mg/dL (1.8-2.4); MCH 29.6 pg (25.7-33.7); MCHC 33.5 g/dl (32.0-36.0); MEAN CELL VOLUME 88.4 fl (80-96); MEAN PLT VOLUME 9.7 fl (7.5-11.1); PLATELET COUNT 272 10^3/uL (134-434); RBC 2.92 M/mm3 (3.60-5.2); RDW 16.4 % (11.6-15.6); WHITE BLOOD COUNT 16.5 K/mm3 (4.0-10.0)
[2023-01-23 08:17] LABS: CREATININE 1.2 mg/dL (0.55-1.3); PHOSPHOROUS 3.4 mg/dL (2.5-4.9)
[2023-01-23 08:19] LABS: BILIRUBIN,TOTAL 0.4 mg/dL (0.2-1); TOT PROT 6.8 g/dl (6.4-8.2)
[2023-01-23] MEDS: INSULIN (LEVEMIR) 100 UNITS/ML UNITS SQ SCH (09:09)
[2023-01-23] MEDS: PANTOPRAZOLE SODIUM 40 MG VIAL IVPUSH SCH (09:59)
[2023-01-23] MEDS: levETIRAcetam 500 MG/5 ML INJECTION VIAL IVPB SCH ×2 (09:59→22:34)
[2023-01-23] MEDS: FLUoxetine HCL 20 MG CAPSULE PO SCH (10:00)
[2023-01-23] MEDS ORDERED: MUPIROCIN 2% TOPICAL OINTMENT FOR DECOLONIZATION NS SCH (10:00)
[2023-01-23] MEDS: QUEtiapine FUMARATE 100 MG TABLET (FP) PO SCH ×2 (10:00→22:41)
[2023-01-23] MEDS: ENOXAPARIN NA (PORCINE) 120 MG/0.8 ML DISP.SYRIN SQ SCH ×2 (10:29→22:36)
[2023-01-23] MEDS ORDERED: CHLORHEXIDINE GLUCONATE 4% CLEANSER FOR DECOLONIZATION TP SCH (22:00)
[2023-01-23] MEDS: ATORVASTATIN CA 40 MG TABLET (FP) PO SCH (22:35)
[2023-01-24] MEDS: PIPERACILLIN/TAZOB 3.375 GM 3.375 GM in DEXTROSE 5%-WATER - 50 ML IVPB SCH ×3 (04:34→17:51)
[2023-01-24] MEDS: VALPROATE SODIUM 250 MG/5 ML UNIT DOSE CUP NGT SCH ×2 (05:42→13:10)
[2023-01-24] MEDS: INSULIN SLIDING SCALE (NOVOLOG) 1 VIAL SQ SCH ×4 (05:51→22:00)
[2023-01-24] MEDS: INSULIN (LEVEMIR) 100 UNITS/ML UNITS SQ SCH (06:26)
[2023-01-24] MEDS: ALBUTEROL SO4 2.5/IPRATROPIUM 0.5 INH SOL 3 ML VIAL.NEB. NEB SCH ×4 (07:15→20:10)
[2023-01-24] MEDS: ENOXAPARIN NA (PORCINE) 120 MG/0.8 ML DISP.SYRIN SQ SCH ×2 (10:27→21:50)
[2023-01-24] MEDS: methylPREDNISolone NA SUCC 40 MG/1 ML VIAL IVPUSH SCH ×2 (10:28→17:49)
[2023-01-24] MEDS: PANTOPRAZOLE SODIUM 40 MG VIAL IVPUSH SCH (10:28)
[2023-01-24] MEDS: FLUoxetine HCL 20 MG CAPSULE PO SCH (10:29)
[2023-01-24] MEDS: QUEtiapine FUMARATE 100 MG TABLET (FP) PO SCH ×2 (10:29→21:51)
[2023-01-24] MEDS: levETIRAcetam 500 MG/5 ML INJECTION VIAL IVPB SCH ×2 (10:29→21:46)
[2023-01-24 11:52] LABS: HEMOGLOBIN 8.9 GM/dL (10.7-15.3); MCH 28.9 pg (25.7-33.7); MEAN CELL VOLUME 87.6 fl (80-96); PLATELET COUNT 272 10^3/uL (134-434); RBC 3.08 M/mm3 (3.60-5.2); RDW 16.5 % (11.6-15.6); WHITE BLOOD COUNT 19.2 K/mm3 (4.0-10.0)
[2023-01-24 12:18] LABS: POTASSIUM 4.2 mmol/L (3.5-5.1)
[2023-01-24 12:19] LABS: CALCIUM 8.2 mg/dL (8.5-10.1)
[2023-01-24 12:23] LABS: CREATININE 1.1 mg/dL (0.55-1.3)
[2023-01-24] MEDS: VALPROATE SODIUM 250 MG/5 ML UNIT DOSE CUP PO SCH (17:50)
[2023-01-24 18:45] LABS: EPI CELLS 2 /uL (0-25.1); HYALINE CASTS 0 /uL (0-3.1); PH,URINE 5.5 (5.0-8.0); URINE APPEARANCE CLEAR; URINE BACTERIA 5 /uL (0-1359); URINE BILIRUBIN NEGATIVE (NEGATIVE); URINE COLOR YELLOW; URINE GLUCOSE (UA) 3+ (NEGATIVE); URINE KETONE NEGATIVE (NEGATIVE); URINE LEUK ESTERASE 2+ (NEGATIVE); URINE NITRITE NEGATIVE (NEGATIVE); URINE PROTEIN 2+ (NEGATIVE); URINE UROBILINOGEN 0.2 mg/dL (0.2-1.0); URINE WBC 703 /uL (0-25.8)
[2023-01-24] MEDS ORDERED: INSULIN (NOVOLOG) ASPART 100 UNITS/ML 10ML VIAL ONE (19:13)
[2023-01-24] MEDS ORDERED: ACETAMINOPHEN 1000 MG/100 ML BAG IVPB ONE (21:26)
[2023-01-24 21:34] LABS: URINE RBC 96 /uL (0-23.9)
[2023-01-24] MEDS: ATORVASTATIN CA 40 MG TABLET (FP) PO SCH (21:50)
[2023-01-24] MEDS: MELATONIN 5 MG TABLETS PO PRN (21:59)
[2023-01-25] MEDS: VALPROATE SODIUM 250 MG/5 ML UNIT DOSE CUP PO SCH ×4 (00:40→18:19)
[2023-01-25] MEDS: methylPREDNISolone NA SUCC 40 MG/1 ML VIAL IVPUSH SCH ×3 (03:25→18:19)
[2023-01-25] MEDS: PIPERACILLIN/TAZOB 3.375 GM 3.375 GM in DEXTROSE 5%-WATER - 50 ML IVPB SCH ×3 (03:34→18:19)
[2023-01-25] MEDS: INSULIN SLIDING SCALE (NOVOLOG) 1 VIAL SQ SCH ×4 (06:33→22:23)
[2023-01-25] MEDS: INSULIN (LEVEMIR) 100 UNITS/ML UNITS SQ SCH (06:34)
[2023-01-25 07:47] LABS: HEMATOCRIT 27.3 % (32.4-45.2); HEMOGLOBIN 8.9 GM/dL (10.7-15.3); MCH 28.7 pg (25.7-33.7); MCHC 32.7 g/dl (32.0-36.0); MEAN CELL VOLUME 87.9 fl (80-96); MEAN PLT VOLUME 9.3 fl (7.5-11.1); PLATELET COUNT 251 10^3/uL (134-434); RBC 3.11 M/mm3 (3.60-5.2); RDW 16.3 % (11.6-15.6)
[2023-01-25] MEDS: ALBUTEROL SO4 2.5/IPRATROPIUM 0.5 INH SOL 3 ML VIAL.NEB. NEB SCH ×4 (07:55→20:04)
[2023-01-25 08:03] LABS: POTASSIUM 4.6 mmol/L (3.5-5.1)
[2023-01-25 08:07] LABS: ALBUMIN 2.6 g/dl (3.4-5.0); BLOOD UREA NITROGEN 36.2 mg/dL (7-18)
[2023-01-25 08:10] LABS: CREATININE 0.9 mg/dL (0.55-1.3)
[2023-01-25 08:11] LABS: BILIRUBIN,TOTAL 0.4 mg/dL (0.2-1); TOT PROT 6.5 g/dl (6.4-8.2)
[2023-01-25 08:41] LABS: ANISOCYTOSIS 1+
[2023-01-25] MEDS: levETIRAcetam 500 MG/5 ML INJECTION VIAL IVPB SCH ×2 (11:13→22:19)
[2023-01-25] MEDS: ENOXAPARIN NA (PORCINE) 120 MG/0.8 ML DISP.SYRIN SQ SCH ×2 (11:13→22:24)
[2023-01-25] MEDS: QUEtiapine FUMARATE 100 MG TABLET (FP) PO SCH ×2 (11:14→22:23)
[2023-01-25] MEDS: FLUoxetine HCL 20 MG CAPSULE PO SCH (11:14)
[2023-01-25] MEDS: PANTOPRAZOLE SODIUM 40 MG VIAL IVPUSH SCH (11:14)
[2023-01-25] MEDS ORDERED: methylPREDNISolone NA SUCC 40 MG/1 ML VIAL IVPUSH SCH (22:00)
[2023-01-25] MEDS: ATORVASTATIN CA 40 MG TABLET (FP) PO SCH (22:23)
[2023-01-25] MEDS: MELATONIN 5 MG TABLETS PO PRN (22:25)
[2023-01-26] MEDS: VALPROATE SODIUM 250 MG/5 ML UNIT DOSE CUP PO SCH ×4 (00:30→17:08)
[2023-01-26] MEDS: PIPERACILLIN/TAZOB 3.375 GM 3.375 GM in DEXTROSE 5%-WATER - 50 ML IVPB SCH ×2 (01:09→09:57)
[2023-01-26] MEDS: INSULIN SLIDING SCALE (NOVOLOG) 1 VIAL SQ SCH ×3 (06:18→17:06)
[2023-01-26] MEDS: INSULIN (LEVEMIR) 100 UNITS/ML UNITS SQ SCH (06:19)
[2023-01-26 06:54] LABS: HEMATOCRIT 29.6 % (32.4-45.2); HEMOGLOBIN 9.4 GM/dL (10.7-15.3); MCH 28.5 pg (25.7-33.7); MCHC 31.8 g/dl (32.0-36.0); MEAN CELL VOLUME 89.6 fl (80-96); MEAN PLT VOLUME 8.9 fl (7.5-11.1); PLATELET COUNT 278 10^3/uL (134-434); RDW 16.1 % (11.6-15.6); WHITE BLOOD COUNT 19.6 K/mm3 (4.0-10.0)
[2023-01-26] MEDS: ALBUTEROL SO4 2.5/IPRATROPIUM 0.5 INH SOL 3 ML VIAL.NEB. NEB SCH ×3 (08:00→20:55)
[2023-01-26] MEDS: FLUoxetine HCL 20 MG CAPSULE PO SCH (09:57)
[2023-01-26] MEDS: predniSONE 10 MG TABLET (UD) PO SCH ×2 (09:57→11:55)
[2023-01-26] MEDS: levETIRAcetam 250 MG TABLET PO SCH (09:57)
[2023-01-26] MEDS: PANTOPRAZOLE 40 MG TABLET PO SCH (09:57)
[2023-01-26] MEDS: QUEtiapine FUMARATE 100 MG TABLET (FP) PO SCH (09:57)
[2023-01-26] MEDS: APIXABAN 5 MG TABLET PO SCH (09:57)
[2023-01-26 11:57] LABS: ANISOCYTOSIS 0; MACROCYTOSIS 0; OVALOCYTE 1+; PLATELET ESTIMATE NORMAL
[2023-01-26] MEDS: AMOX TR/POT CLAV 875MG/125MG TABLETS (FP) PO SCH (17:07)
[2023-01-27] MEDS: ATORVASTATIN CA 40 MG TABLET (FP) PO SCH
[2023-01-27] MEDS: levETIRAcetam 250 MG TABLET PO SCH ×2 (00:01→09:49)
[2023-01-27] MEDS: QUEtiapine FUMARATE 100 MG TABLET (FP) PO SCH ×2 (00:02→09:49)
[2023-01-27] MEDS: INSULIN SLIDING SCALE (NOVOLOG) 1 VIAL SQ SCH ×4 (02:50→17:40)
[2023-01-27] MEDS: VALPROATE SODIUM 250 MG/5 ML UNIT DOSE CUP PO SCH ×4 (06:01→17:41)
[2023-01-27] MEDS: INSULIN (LEVEMIR) 100 UNITS/ML UNITS SQ SCH (06:34)
[2023-01-27] MEDS: ALBUTEROL SO4 2.5/IPRATROPIUM 0.5 INH SOL 3 ML VIAL.NEB. NEB SCH ×3 (08:35→16:41)
[2023-01-27] MEDS: predniSONE 10 MG TABLET (UD) PO SCH (09:48)
[2023-01-27] MEDS: AMOX TR/POT CLAV 875MG/125MG TABLETS (FP) PO SCH ×2 (09:48→17:36)
[2023-01-27] MEDS: PANTOPRAZOLE 40 MG TABLET PO SCH (09:48)
[2023-01-27] MEDS: FLUoxetine HCL 20 MG CAPSULE PO SCH (09:49)
[2023-01-27] MEDS: APIXABAN 5 MG TABLET PO SCH ×2 (09:50)
[2023-01-27 16:04] VITALS: RESP 19
[2023-01-27 18:41] VITALS: BP 123/67; PULSE 75; TEMP 99.8
[2023-01-27 23:49] VITALS: BMI 41.5
== END 2023-01-27 20:04 | DRG 139 ==
LOC: JER 23:59 → JERBED 01-21 02:28 → JICU 01-21 03:44 → J4W 01-22 18:20
PROVIDERS: ADMIT Internal Medicine Pulmonary Disease; ATTEND Family Medicine
PROC: 05HD33Z Insertion of Infusion Device into Right Cephalic Vein, Percutaneous Approach (ICD-10-PCS; principal; 2023-01-21)
PROC: B54MZZA Ultrasonography of Right Upper Extremity Veins, Guidance (ICD-10-PCS; 2023-01-21)
PROC: 0BH17EZ Insertion of Endotracheal Airway into Trachea, Via Natural or Artificial Opening (ICD-10-PCS; 2023-01-21)
PROC: 5A1935Z Respiratory Ventilation, Less than 24 Consecutive Hours (ICD-10-PCS; 2023-01-21)
DX: J18.9 Pneumonia, unspecified organism (principal); J44.0 Chronic obstructive pulmonary disease with (acute) lower respiratory infection; J96.21 Acute and chronic respiratory failure with hypoxia; I25.10 Atherosclerotic heart disease of native coronary artery without angina pectoris; E78.5 Hyperlipidemia, unspecified; D72.829 Elevated white blood cell count, unspecified; I11.0 Hypertensive heart disease with heart failure; I50.32 Chronic diastolic (congestive) heart failure; J44.1 Chronic obstructive pulmonary disease with (acute) exacerbation; F31.9 Bipolar disorder, unspecified; F41.8 Other specified anxiety disorders; B18.2 Chronic viral hepatitis C; I48.91 Unspecified atrial fibrillation; E11.65 Type 2 diabetes mellitus with hyperglycemia; G40.909 Epilepsy, unspecified, not intractable, without status epilepticus; I48.92 Unspecified atrial flutter; I27.20 Pulmonary hypertension, unspecified; R41.82 Altered mental status, unspecified; F19.10 Other psychoactive substance abuse, uncomplicated; M54.50 Low back pain, unspecified; E66.01 Morbid (severe) obesity due to excess calories; Z68.41 Body mass index [BMI] 40.0-44.9, adult; Z99.81 Dependence on supplemental oxygen; Z95.5 Presence of coronary angioplasty implant and graft
CPT/HCPCS: 0241U-QW; 36415; 36600; 70450-TC; 71045-TC-FY; 71046-TC-FY; 72125-TC; 74230-TC-FY; 80048; 80053; 80307; 81003; 82550; 82553; 82607; 82728; 82803; 82962; 83036; 83540; 83550; 83605; 83735; 83880; 84100; 84484; 85025; 85027; 85610; 85730; 86850; 86900; 86901; 87040; 87070; 87077; 87086; 87205; 92611-GN; 93005; 93010; 94640; 97116-GP; 97162-GP